=== PATIENT | female | born 1985 | race Caucasian/White ===

== ENCOUNTER 2017-08-31 09:55 | Emergency (ER) | payer MEDICAID, SELFPAY | END 2017-08-31 12:31 | disposition home or self-care (01) | PROVIDERS: Emergency Provider Emergency Medicine; Family Provider Nurse Practitioner Family; Visit Provider Emergency Medicine | DX: R10.13 Epigastric pain (principal); R11.2 Nausea with vomiting, unspecified; Z87.442 Personal history of urinary calculi; J45.909 Unspecified asthma, uncomplicated; I10 Essential (primary) hypertension; Z79.899 Other long term (current) drug therapy; Z88.3 Allergy status to other anti-infective agents; Z88.5 Allergy status to narcotic agent; Z88.8 Allergy status to other drugs, medicaments and biological substances | CPT/HCPCS: 80053; 81001; 82150; 82272; 83690; 85025; 87086; 99283; G0328 ==

== ENCOUNTER 2017-11-24 14:40 | Emergency (ER) | payer MEDICAID, SELFPAY ==
[2017-11-24 14:45] VITALS: BP 145/96; PULSE 92; RESP 20; TEMP 36.6; O2SAT 98; BMI 42.7
--- NOTE | 2017-11-24 14:56 | CT_ITS ---
CT abdomen pelvis wo con CLINICAL INDICATION: Epigastric abdominal pain radiating into the back with history of pancreatitis ITS.REASON: EPIGASTRIC PAIN ORDERING PHYSICIAN: Frankie Salvador MD PATIENT AGE: 32 years COMPARISON: 06/24/2017 TECHNIQUE: Axial images obtained with sagittal and coronal reformats. PROCEDURE: Oral Contrast: None IV Contrast: None . FINDINGS: No acute finding in the lung bases. Prior cholecystectomy without ductal dilatation. The liver, spleen, adrenal glands, and pancreas are unremarkable. No peripancreatic inflammation or fluid collection is evident. There are nonobstructing left renal calculi measuring up to 4 mm in the midpole region. No hydronephrosis or ureteral calculi. There is diffuse diverticulosis of the transverse colon with scattered diverticula of the descending and sigmoid colon. No evidence of diverticulitis. The cecum is situated in the midline as is the appendix. No evidence of appendicitis. There is increasing prominence of the right ovary. Consider ultrasound of the pelvis for further evaluation. No cul-de-sac fluid or pelvic adenopathy. No focal inflammatory change evident. No acute bony anomalies. IMPRESSION: 1. No acute abdominal or pelvic findings. No evidence of acute pancreatitis. 2. Nonobstructing left renal calculi. 3. Increasing prominence of the right ovary. Consider pelvic ultrasound for further evaluation
--- NOTE | 2017-11-24 15:19 | HMH.EDGENADL ---
ED Disposition Clinical Impression: Epigastric pain, Vomiting and diarrhea Disposition: Home, Self-Care Condition on Discharge: Good Instructions: DI for Abdominal Pain-Adult, DI for Vomiting -- Adult, DI for Diarrhea and Traveler's Diarrhea -- Adult Additional Instructions: Continue using Phenergan at home. Follow-up urine culture results in 2 days from your primary care provider. Additional instructions for ABDOMINAL PAIN: See your physician as soon as possible for further evaluation. Return immediately if worsening abdominal pain, vomiting, shortness of breath, fever, vomiting of blood or abdominal distention. Additional instructions for VOMITING/DIARRHEA: See your physician as soon as possible for further evaluation. Return immediately if severe abdominal pain, uncontrollable vomiting, shortness of breath, fever, vomiting of blood or abdominal distention. Prescriptions: Nitrofurantoin Monohyd/M-Cryst [Macrobid 100 mg Capsule] 100 mg PO BID #14 cap Referrals: Jojo Whyte APRN [Primary Care Provider] - - Critical Care Critical Care Time: No Attestation: On 11/24/17, the high probability of a clinically significant, sudden or life threatening deterioration of the following system(s) required my full and direct attention, intervention and personal management. The time I documented below is in addition to time spent performing reported procedures but includes the following listed in this critical care notation. Medical Decision Making - Oul Inquiry Pt receiving controlled substance: No Vital Signs: 11/24/17 14:45 Temperature 97.9 F Temperature Source Oral Pulse Rate [Left Brachial] 92 H Respiratory Rate 20 Blood Pressure [Left Arm] 145/96 Blood Pressure Mean [Left Arm] 112 Blood Pressure Source [Left Arm] Automatic Cuff Blood Pressure Position [Left Arm] Sitting 02 Sat by Pulse Oximetry 98 Oxygen Delivery Method Room Air - Lab Data Lab Results 11/24/17 15:30: Urine Color Yellow, Urine Appearance Clear, Urine pH 7.0, Ur Specific [place] 1.015, Urine Protein Negative, Urine Glucose (UA) Negative, Urine Ketones Negative, Urine Blood Negative, Urine Nitrate Negative, Urine Bilirubin Negative, Urine Urobilinogen 0.2, Ur Leukocyte Esterase 2+ A, Urine RBC Occasional, Urine WBC 20-50, Ur Squamous Epith Cells 20-50, Urine Bacteria 2+ 11/24/17 15:40: WBC 12.9 H, RBC 5.50 H, Hgb 13.1, Hct 43.3, MCV 78.8 L, MCH 23.9 L, MCHC 30.3 L, RDW 14.6, Plt Count 524 H, MPV 7.7, Neut % (Auto) 74.7, Lymph % (Auto) 17.9, [place] % (Auto) 4.9, Eos % (Auto) 2.2, Baso % (Auto) 0.2, Neut # (Auto) 9.7 H, Lymph # (Auto) 2.3, [place] # (Auto) 0.6, Eos # (Auto) 0.3, Baso # (Auto) 0.0 11/24/17 15:40: Sodium 141, Potassium 4.6, Chloride 106, Carbon Dioxide 27, Anion Gap 12.6, BUN 17, Creatinine 0.79, Estimated Creat Clear 77, Estimated GFR 84, Est GFR ( Amer) 102, Glucose 94, Calcium 9.3, Total Bilirubin 0.1 L, AST 14 L, ALT 29, Alkaline Phosphatase 66, Total Protein 7.6, Albumin 3.3 L, Globulin 4.3 H, Albumin/Globulin Ratio 0.8 L, Amylase 54, Lipase 347 11/24/17 15:40: Serum HCG, Qual Negative Result diagrams: 11/24/17 15:40 11/24/17 15:40 Orders (Tests/Meds): ED MEDICATIONS Discontinued Medications Generic Name Dose Route Start Last Admin Trade Name Freq PRN Reason Stop Dose Admin Promethazine HCl 12.5 mg 11/24/17 15:53 11/24/17 16:02 Phenergan 25mg/Ml 1ml Vial IV 11/24/17 15:54 12.5 mg ONCE ONE Administration Sodium Chloride 1,000 ml 11/24/17 15:53 11/24/17 16:02 Sod Chlor 0.9% 1000ml Bag IV 11/24/17 15:54 1,000 ml BOLUS ONE Administration Sodium Chloride 25 ml 11/24/17 15:53 11/24/17 16:02 Sod Chlor 0.9% 25ml Bag IV 11/24/17 15:54 25 ml ONCE ONE Administration ORDERS Category Date Time Status Urine Culture Stat Micro 11/24/17 15:30 Received - CT Data CT Scan: Abdomen, Pelvis Time Received: 15:[address] Reviewed: Yes: I have viewed the radiologist's int
--- NOTE | 2017-11-24 15:21 | PC.NURSE ---
TO RADIOLOGY PER W/C FOR CT ABD/PELVIS
[2017-11-24 15:53] LABS: Basophils % 0.2 % (0.1-2.0); Eosinophils # 0.3 K/mm3 (0.0-0.4); Eosinophils % 2.2 % (0.1-12.0); Hematocrit 43.3 % (37.0-47.0); Hemoglobin 13.1 g/dL (12.2-16.2); Lymphocytes # 2.3 K/mm3 (0.7-4.5); Lymphocytes % 17.9 K/mm3 (10-50); Mean Corpuscular HGB Conc 30.3 g/dL (31.8-35.4); Mean Corpuscular Hemoglobin 23.9 pg (27.0-31.2); Mean Corpuscular Volume 78.8 fl (81-99); Mean Platelet Volume 7.7 fl (7.4-10.4); Monocytes # 0.6 K/mm3 (0.1-1.0); Monocytes % 4.9 % (1.7-9.3); Neutrophils # 9.7 K/mm3 (1.8-7.8); Neutrophils % 74.7 % (37.0-80.0); Platelet Count 524 K/mm3 (142-424); Red Cell Distribution Width 14.6 % (11.5-17.5); White Blood Count 12.9 K/mm3 (4.8-10.8)
[2017-11-24 15:55] LABS: Microscopic, Urine URINE MICROSCOPIC (MICROSCOPIC)
[2017-11-24 15:56] LABS: Appearance,Urine CLEAR (Clear); Bilirubin,Urine Negative (Negative); Blood, Urine Negative (Negative); Color,Urine YELLOW (Yellow); Glucose,Urine (UA) Negative (Negative); Ketones,Urine Negative (Negative); Leukocyte Esterase,Urine 2+ (Negative); Nitrate,Urine Negative (Negative); Protein,Urine Negative (Negative); Specific Gravity, Urine 1.015 (1.005-1.030); Urobilinogen,Urine 0.2 EU/dl (0.2)
[2017-11-24 16:18] LABS: HCG Qualitative, Serum Negative (Negative)
[2017-11-24 16:18] LABS: Bacteria,Urine 2+ /lpf; RBC,Urine Occasional #/hpf (0-3); Squamous Epithelial Cell,Urine 20-50 #/hpf (0-5); WBC,Urine 20-50 #/hpf (0-3)
[2017-11-24 16:35] LABS: Alanine Aminotransferase 29 U/L (12-78); Albumin Level 3.3 gm/dL (3.4-5.0); Albumin/Globulin Ratio 0.8 (1.1-1.8); Alkaline Phosphatase 66 U/L (46-116); Amylase 54 U/L (25-125); Anion Gap 12.6 mEq/L (5-15); Aspartate Amino Transferase 14 U/L (15-37); Bilirubin,Total 0.1 mg/dL (0.2-1.0); Blood Urea Nitrogen 17 mg/dL (7-18); Calcium 9.3 mg/dL (8.5-10.1); Carbon Dioxide 27 mmol/L (21.0-32.0); Chloride 106 mmol/L (98-107); Creatinine Clearance Estimated 77 mL/min (0-300); Creatinine,Serum 0.79 mg/dL (0.55-1.02); Estimated Glomerular Filt Rate 84 ml/min (>60); GFR (African American) 102 ML/MIN (>60); Globulin 4.3 gm/dl (1.3-3.2); Glucose 94 mg/dL (74-106); Lipase 347 u/L (73-393); Potassium 4.6 mmoL/L (3.5-5.1); Sodium 141 mmol/L (136-145); Total Protein,Serum 7.6 gm/dL (6.4-8.2)
[2017-11-24 17:30] VITALS: BP 144/91; PULSE 92; RESP 18; TEMP 36.6; O2SAT 99
== END 2017-11-24 17:32 | disposition home or self-care (01) ==
PROVIDERS: Emergency Provider Emergency Medicine; Family Provider Family Medicine; PCP Nurse Practitioner Family
DX: R10.13 Epigastric pain (principal); R11.0 Nausea; R19.7 Diarrhea, unspecified; J45.909 Unspecified asthma, uncomplicated; I10 Essential (primary) hypertension; E78.5 Hyperlipidemia, unspecified
CPT/HCPCS: 36415; 74176; 80053; 81001; 82150; 83690; 84703; 85025; 87086; 96365; 96366; 96367; 96374; 96375; 96376; 99283

== ENCOUNTER 2017-12-05 05:17 | Emergency (ER) | payer MEDICAID, SELFPAY ==
[2017-12-05 05:18] VITALS: BP 115/96; PULSE 108; RESP 18; O2SAT 99; BMI 42.7
[2017-12-05 06:04] LABS: Microscopic, Urine URINE MICROSCOPIC (MICROSCOPIC)
[2017-12-05 06:08] LABS: Appearance,Urine TURBID (Clear); Bilirubin,Urine Negative (Negative); Blood, Urine 3+ (Negative); Color,Urine RED (Yellow); Glucose,Urine (UA) Negative (Negative); Ketones,Urine Negative (Negative); Leukocyte Esterase,Urine TRACE (Negative); Nitrate,Urine Negative (Negative); Protein,Urine 2+ (Negative); Specific Gravity, Urine >= 1.030 (1.005-1.030); Urobilinogen,Urine 0.2 EU/dl (0.2)
[2017-12-05 06:09] LABS: Amorphous Sediment,Urine Trace /lpf; RBC,Urine TNTC #/hpf (0-3)
--- NOTE | 2017-12-05 06:29 | HMH.EDGENADL ---
ED Disposition Clinical Impression: Cystitis Disposition: Home, Self-Care Condition on Discharge: Good Instructions: DI for Acute Cystitis Additional Instructions: fluids and call pcp for follow up Prescriptions: Hydrocod/Acet 5/325 mg [[place] 5/325mg tablet] 1 tab PO Q6HP PRN #4 tab PRN Reason: Moderate To Severe Pain Referrals: Jojo Whyte APRN [Primary Care Provider] - - Critical Care Critical Care Time: No Attestation: On 12/05/17, the high probability of a clinically significant, sudden or life threatening deterioration of the following system(s) required my full and direct attention, intervention and personal management. The time I documented below is in addition to time spent performing reported procedures but includes the following listed in this critical care notation. Medical Decision Making - Medical Records Medical records reviewed: Yes: I reviewed the patient's medical records. - Olu Inquiry Pt receiving controlled substance: No Vital Signs: 12/05/17 05:18 Pulse Rate [Left Brachial] 108 H Respiratory Rate 18 Blood Pressure [Left Arm] 115/96 Blood Pressure Mean [Left Arm] 102 02 Sat by Pulse Oximetry 99 Oxygen Delivery Method Room Air - Lab Data Lab results reviewed: Yes: I reviewed the patient's lab results. Lab Results 12/05/17 05:40: Urine Color Red, Urine Appearance Turbid, Urine pH 6.0, Ur Specific [place] >= 1.030, Urine Protein 2+, Urine Glucose (UA) Negative, Urine Ketones Negative, Urine Blood 3+, Urine Nitrate Negative, Urine Bilirubin Negative, Urine Urobilinogen 0.2, Ur Leukocyte Esterase Trace, Urine RBC Tntc, Urine WBC 5-10, Ur Squamous Epith Cells 5-10, Amorphous Sediment Trace 12/05/17 06:22: WBC 14.3 H, RBC 5.16, Hgb 12.5, Hct 40.9, MCV 79.2 L, MCH 24.2 L, MCHC 30.5 L, RDW 14.9, Plt Count 451 H, MPV 7.7, Neut % (Auto) 84.0 H, Lymph % (Auto) 8.5 L, [place] % (Auto) 5.1, Eos % (Auto) 2.4, Baso % (Auto) 0.1, Neut # (Auto) 12.0 H, Lymph # (Auto) 1.2, [place] # (Auto) 0.7, Eos # (Auto) 0.3, Baso # (Auto) 0.0 12/05/17 06:22: Sodium 138, Potassium 4.1, Chloride 104, Carbon Dioxide 24, Anion Gap 14.1, BUN 11, Creatinine 0.94, Estimated Creat Clear 65, Estimated GFR 69, Est GFR ( Amer) 84, Glucose 111 H, Calcium 8.3 L, Total Bilirubin 0.4, AST 14 L, ALT 23, Alkaline Phosphatase 70, Total Protein 7.4, Albumin 3.2 L, Globulin 4.2 H, Albumin/Globulin Ratio 0.8 L Result diagrams: 12/05/17 06:22 12/05/17 06:22 Orders (Tests/Meds): ED MEDICATIONS Generic Name Dose Route Start Last Admin Trade Name Freq PRN Reason Stop Dose Admin Butorphanol Tartrate 1 mg 12/05/17 07:15 Stadol 1mg/1ml Vial IM 12/05/17 07:16 ONCE ONE Promethazine HCl 25 mg 12/05/17 07:15 Phenergan 25mg/Ml 1ml Vial IM 12/05/17 07:16 ONCE ONE Sodium Chloride 50 ml 12/05/17 07:15 Sod Chlor 0.9% 50ml Bag IV 12/05/17 07:16 ONCE ONE ORDERS Category Date Time Status Urine Culture Stat Micro 12/05/17 07:11 Ordered General Adult HPI - General Chief complaint: PAIN Stated complaint: Abdominal Pain,Nausea Time Seen by Provider: 12/05/17 06:29 Mode of Arrival: Ambulatory Source of Information: Patient, Medical Record Limitations: No Limitations Description of Symptoms (Recalled from ER Triage Doc. by RN): Patient states that she woke up this morning with sharp pain to her lower abdomen. - History of Present Illness HPI narrative: acute onset of ant pain with no fever or rash and had neg ct about 10 days ago - Onset (ago): hour(s) Location: abdomen Radiation: non-radiation Severity: moderate Treatments prior to arrival: none - Related Data Home Medications Medication Instructions Recorded Confirmed albuterol sulfate HFA 90 2 puff INHALATION Q4-6H PRN 10/21/17 mcg/actuation aerosol inhaler buspirone 30 mg tablet 30 mg PO TID PRN tab 10/21/17 hydrochlorothiazide 25 mg tablet 25 mg PO ONCE 10/21/17 hydrocodone 10 mg-acetami
[2017-12-05 06:42] LABS: Basophils % 0.1 % (0.1-2.0); Eosinophils # 0.3 K/mm3 (0.0-0.4); Eosinophils % 2.4 % (0.1-12.0); Hematocrit 40.9 % (37.0-47.0); Hemoglobin 12.5 g/dL (12.2-16.2); Lymphocytes # 1.2 K/mm3 (0.7-4.5); Lymphocytes % 8.5 K/mm3 (10-50); Mean Corpuscular HGB Conc 30.5 g/dL (31.8-35.4); Mean Corpuscular Hemoglobin 24.2 pg (27.0-31.2); Mean Corpuscular Volume 79.2 fl (81-99); Mean Platelet Volume 7.7 fl (7.4-10.4); Monocytes # 0.7 K/mm3 (0.1-1.0); Monocytes % 5.1 % (1.7-9.3); Platelet Count 451 K/mm3 (142-424); Red Blood Count 5.16 M/mm3 (4.20-5.40); Red Cell Distribution Width 14.9 % (11.5-17.5); White Blood Count 14.3 K/mm3 (4.8-10.8)
[2017-12-05 06:57] LABS: Alanine Aminotransferase 23 U/L (12-78); Albumin Level 3.2 gm/dL (3.4-5.0); Albumin/Globulin Ratio 0.8 (1.1-1.8); Alkaline Phosphatase 70 U/L (46-116); Anion Gap 14.1 mEq/L (5-15); Aspartate Amino Transferase 14 U/L (15-37); Bilirubin,Total 0.4 mg/dL (0.2-1.0); Blood Urea Nitrogen 11 mg/dL (7-18); Calcium 8.3 mg/dL (8.5-10.1); Carbon Dioxide 24 mmol/L (21.0-32.0); Chloride 104 mmol/L (98-107); Creatinine Clearance Estimated 65 mL/min (0-300); Creatinine,Serum 0.94 mg/dL (0.55-1.02); Estimated Glomerular Filt Rate 69 ml/min (>60); GFR (African American) 84 ML/MIN (>60); Globulin 4.2 gm/dl (1.3-3.2); Glucose 111 mg/dL (74-106); Potassium 4.1 mmoL/L (3.5-5.1); Sodium 138 mmol/L (136-145); Total Protein,Serum 7.4 gm/dL (6.4-8.2)
--- NOTE | 2017-12-05 07:02 | ED_ITS ---
ED Disposition Clinical Impression: Cystitis Disposition: Home, Self-Care Condition on Discharge: Good Instructions: DI for Acute Cystitis Additional Instructions: fluids and call pcp for follow up Prescriptions: Hydrocod/Acet 5/325 mg [[place] 5/325mg tablet] 1 tab PO Q6HP PRN #4 tab PRN Reason: Moderate To Severe Pain Referrals: Jojo Whyte APRN [Primary Care Provider] - - Critical Care Critical Care Time: No Attestation: On 12/05/17, the high probability of a clinically significant, sudden or life threatening deterioration of the following system(s) required my full and direct attention, intervention and personal management. The time I documented below is in addition to time spent performing reported procedures but includes the following listed in this critical care notation. Medical Decision Making - Medical Records Medical records reviewed: Yes: I reviewed the patient's medical records. - Olu Inquiry Pt receiving controlled substance: No Vital Signs: 12/05/17 05:18 Pulse Rate [Left Brachial] 108 H Respiratory Rate 18 Blood Pressure [Left Arm] 115/96 Blood Pressure Mean [Left Arm] 102 02 Sat by Pulse Oximetry 99 Oxygen Delivery Method Room Air - Lab Data Lab results reviewed: Yes: I reviewed the patient's lab results. Lab Results 12/05/17 05:40: Urine Color Red, Urine Appearance Turbid, Urine pH 6.0, Ur Specific [place] >= 1.030, Urine Protein 2+, Urine Glucose (UA) Negative, Urine Ketones Negative, Urine Blood 3+, Urine Nitrate Negative, Urine Bilirubin Negative, Urine Urobilinogen 0.2, Ur Leukocyte Esterase Trace, Urine RBC Tntc, Urine WBC 5-10, Ur Squamous Epith Cells 5-10, Amorphous Sediment Trace 12/05/17 06:22: WBC 14.3 H, RBC 5.16, Hgb 12.5, Hct 40.9, MCV 79.2 L, MCH 24.2 L , MCHC 30.5 L, RDW 14.9, Plt Count 451 H, MPV 7.7, Neut % (Auto) 84.0 H, Lymph % (Auto) 8.5 L, [place] % (Auto) 5.1, Eos % (Auto) 2.4, Baso % (Auto) 0.1, Neut # ( Auto) 12.0 H, Lymph # (Auto) 1.2, [place] # (Auto) 0.7, Eos # (Auto) 0.3, Baso # ( Auto) 0.0 12/05/17 06:22: Sodium 138, Potassium 4.1, Chloride 104, Carbon Dioxide 24, Anion Gap 14.1, BUN 11, Creatinine 0.94, Estimated Creat Clear 65, Estimated GFR 69, Est GFR ( Amer) 84, Glucose 111 H, Calcium 8.3 L, Total Bilirubin 0.4, AST 14 L, ALT 23, Alkaline Phosphatase 70, Total Protein 7.4, Albumin 3.2 L, Globulin 4.2 H, Albumin/Globulin Ratio 0.8 L Result diagrams: 12/05/17 06:22 12/05/17 06:22 Orders (Tests/Meds): ED MEDICATIONS Generic Name Dose Route Start Last Admin Trade Name Freq PRN Reason Stop Dose Admin Butorphanol Tartrate 1 mg 12/05/17 07:15 Stadol 1mg/1ml Vial IM 12/05/17 07:16 ONCE ONE Promethazine HCl 25 mg 12/05/17 07:15 Phenergan 25mg/Ml 1ml Vial IM 12/05/17 07:16 ONCE ONE Sodium Chloride 50 ml 12/05/17 07:15 Sod Chlor 0.9% 50ml Bag IV 12/05/17 07:16 ONCE ONE ORDERS Category Date Time Status Urine Culture Stat Micro 12/05/17 07:11 Ordered General Adult HPI - General Chief complaint: PAIN Stated complaint: Abdominal Pain,Nausea Time Seen by Provider: 12/05/17 06:29 Mode of Arrival: Ambulatory Source of Information: Patient, Medical Record Limitations: No Limitations Description of Symptoms (Recalled from ER Triage Doc. by RN): Patient states that she woke up this morning with sharp pain to her lower abd
[2017-12-05 07:41] VITALS: BP 128/81; PULSE 107; RESP 20; TEMP 37
== END 2017-12-05 07:43 | disposition home or self-care (01) ==
PROVIDERS: Emergency Provider Emergency Medicine; Family Provider Family Medicine; PCP Nurse Practitioner Family
DX: N83.209 Unspecified ovarian cyst, unspecified side; Z88.6 Allergy status to analgesic agent; Z88.8 Allergy status to other drugs, medicaments and biological substances; Z79.899 Other long term (current) drug therapy
CPT/HCPCS: 36415; 80053; 81001; 85025; 87086; 96372; 99282; J0595

== ENCOUNTER 2017-12-06 15:19 | Emergency (ER) | payer MEDICAID, SELFPAY ==
[2017-12-06 15:26] VITALS: BP 91/43; PULSE 89; RESP 20; TEMP 36.6; O2SAT 100; BMI 42.7
--- NOTE | 2017-12-06 15:53 | HMH.EDABDPAI ---
ED Disposition Clinical Impression: Complex cyst of right ovary Abdominal pain Qualifiers: Abdominal location: right lower quadrant Qualified Code(s): R10.31 - Right lower quadrant pain Disposition: Home, Self-Care Condition on Discharge: Good Instructions: DI for Acute Abdomen Additional Instructions: Please follow-up with Dr. Hammonds's office in the morning, as discussed with the docket specialist this afternoon. Prescriptions: Oxycodone HCl/Acetaminophen [Percocet 10-325 mg Tab] 1 tab PO QID PRN #8 tab PRN Reason: Moderate Pain Referrals: Brock Mcdaniels MD [Staff Physician] - Time of Disposition: 17:20 - Critical Care Critical Care Time: No Attestation: On 12/06/17, the high probability of a clinically significant, sudden or life threatening deterioration of the following system(s) required my full and direct attention, intervention and personal management. The time I documented below is in addition to time spent performing reported procedures but includes the following listed in this critical care notation. Medical Decision Making - Medical Records Medical records reviewed: Yes: I reviewed the patient's medical records. - Olu Inquiry Pt receiving controlled substance: Yes Olu was queried for this patient: No Reason not queried -: Hospital network issues Risks and benefits of using a controlled substance: were discussed with pt by me Vital Signs: 12/06/17 15:26 12/06/17 18:19 Temperature 97.9 F 98.2 F Temperature Source Oral Pulse Rate 89 Pulse Rate [Right Radial] 89 Respiratory Rate 20 16 Blood Pressure 114/75 Blood Pressure [Right Arm] 91/43 Blood Pressure Mean [Right Arm] 59 Blood Pressure Source [Right Arm] Manual Cuff/ Palpation Blood Pressure Position [Right Arm] Standing 02 Sat by Pulse Oximetry 100 Oxygen Delivery Method Nasal Cannula Room Air - Lab Data Lab Results 12/06/17 18:07: Carcinoembryonic Ag 1.1 Orders (Tests/Meds): ED MEDICATIONS Discontinued Medications Generic Name Dose Route Start Last Admin Trade Name Freq PRN Reason Stop Dose Admin Oxycodone/Acetaminophen 1 each 12/06/17 17:19 12/06/17 17:59 Percocet 10mg/325mg Tablet PO 12/06/17 17:20 1 each ONCE ONE Administration - CT Data CT Scan: Abdomen, Pelvis Time Received: 17:[address] Reviewed: Yes: I have reviewed the patient's CT results, I discussed the CT results w/the radiologist, I have viewed the radiologist's interpretation Findings Narrative: [facility] [address] [place] [address] Ultrasound Report Signed Patient: Юлия Kim MR#: [id number] : 1985 Acct:[id number] Age/Sex: 32 / F ADM Date: 12/06/17 Loc: ER Attending Dr: Ordering Physician: Jose Rosenberg MD Date of Service: 12/06/17 Procedure(s): US transvaginal Accession Number(s): [id number] cc: Yg Richter MD; Jojo Whyte APRN~ US transvaginal HISTORY: ITS.REASON: right lower quadrant pain, prominent right ovary on CT scan ORDERING PHYSICIAN: Jose Rosenberg MD PATIENT AGE: 32 years COMPARISON: None FINDINGS: The uterus measures 8 x 4 x 4.5 cm with a combined endometrial thickness of 5 mm. A 2 x 1.5 cm area of heterogeneous echogenicity is present along the infra aspect of the body the uterus consistent with fibroid. The left ovary is 3.6 x 2.9 cm and contains a few follicles the largest of which measures 7 mm. The right ovary is enlarged at 6 x 5.5 cm containing a complex cyst at 3.4 x 3.8 cm which has an irregular shape and some low-level internal echoes. Trace amount of fluid in the pelvis. IMPRESSION: 1. Enlarged right ovary with complex 4 cm ovarian cyst. 2. 2 cm uterine fibroid Dictated By: Yg Richter MD Signed By: <Electronically signed by Yg Richter MD in OV> 12/07/17 0943 DD/ - Physician Consults Physi
--- NOTE | 2017-12-06 16:16 | US_ITS ---
US transvaginal HISTORY: ITS.REASON: right lower quadrant pain, prominent right ovary on CT scan ORDERING PHYSICIAN: Jose Rosenberg MD PATIENT AGE: 32 years COMPARISON: None FINDINGS: The uterus measures 8 x 4 x 4.5 cm with a combined endometrial thickness of 5 mm. A 2 x 1.5 cm area of heterogeneous echogenicity is present along the infra aspect of the body the uterus consistent with fibroid. The left ovary is 3.6 x 2.9 cm and contains a few follicles the largest of which measures 7 mm. The right ovary is enlarged at 6 x 5.5 cm containing a complex cyst at 3.4 x 3.8 cm which has an irregular shape and some low-level internal echoes. Trace amount of fluid in the pelvis. IMPRESSION: 1. Enlarged right ovary with complex 4 cm ovarian cyst. 2. 2 cm uterine fibroid
[2017-12-06 18:19] VITALS: BP 114/75; PULSE 89; RESP 16; TEMP 36.8; O2SAT 98
[2017-12-08 06:16] LABS: CEA 1.1 ng/mL (0.0-4.7)
== END 2017-12-06 18:20 | disposition home or self-care (01) ==
PROVIDERS: Emergency Provider Emergency Medicine; Family Provider Family Medicine; PCP Nurse Practitioner Family
DX: N83.291 Other ovarian cyst, right side (principal)
CPT/HCPCS: 36415; 76830; 82378; 99282

== ENCOUNTER → 2017-12-07 11:24 | Outpatient (CLI) | payer MEDICAID, SELFPAY ==
--- NOTE | 2017-12-07 11:32 | XR_ITS ---
XR chest 2V HISTORY: ITS.REASON: CHEST PAIN AT REST ORDERING PHYSICIAN: Jojo Whyte PATIENT AGE: 32 years COMPARISON: None available FINDINGS: The cardiomediastinal silhouette and pulmonary vascularity are within normal limits. The lungs are clear without infiltrates, suspicious nodules, or pleural effusions. No acute bony abnormalities. IMPRESSION: Negative chest, no acute finding
== END ==
PROVIDERS: PCP Nurse Practitioner Family; Visit Provider Nurse Practitioner Family
DX: R07.9 Chest pain, unspecified (principal)
CPT/HCPCS: 71046

== ENCOUNTER → 2017-12-07 15:28 | Outpatient (CLI) | payer MEDICAID, SELFPAY ==
[2017-12-07 17:10] LABS: Thyroid Stimulating Hormone 2.14 uIU/ml (0.358-3.740)
[2017-12-09 15:32] LABS: Cancer Antigen (CA) 125 57.9 U/mL (0.0-38.1); FSH 9.5 mIU/mL (.); LH 7.8 mIU/mL (.)
[2017-12-10 11:38] LABS: Testosterone,Free 3.1 pg/mL (0.0-4.2)
== END ==
PROVIDERS: Family Provider Family Medicine; PCP Nurse Practitioner Family; Visit Provider Obstetrics & Gynecology
DX: R10.32 Left lower quadrant pain (principal)
CPT/HCPCS: 36415; 83001; 83002; 84402; 84443; 86316

== ENCOUNTER 2017-12-09 11:37 | Inpatient (IN) ==
[2017-12-09 15:19] LABS: Microscopic, Urine URINE MICROSCOPIC (MICROSCOPIC)
[2017-12-09 15:21] LABS: Appearance,Urine CLEAR (Clear); Bilirubin,Urine Negative (Negative); Blood, Urine Negative (Negative); Color,Urine YELLOW (Yellow); Glucose,Urine (UA) Negative (Negative); Ketones,Urine Negative (Negative); Leukocyte Esterase,Urine Negative (Negative); PH,Urine 6.5 (5.0-8.5); Protein,Urine TRACE (Negative); Urobilinogen,Urine 0.2 EU/dl (0.2)
[2017-12-09 15:29] LABS: Bacteria,Urine Trace /lpf; Mucus,Urine 3+ /lpf; WBC,Urine Occasional #/hpf (0-3)
--- NOTE | 2017-12-09 17:57 | Progress Note ---
[facility] Anesthesia Checklist - Structural Data Admitted From: Inpatient Planned Operative Procedure/s: exp laparotomy Consent for Planned Operative Procedure(s) Verified: Yes Verified Documents: Surgical Consent - Airway Assessment C-Spine Mobility Assessed: Yes TMJ Mobility Assessed: Yes Dentition: Poor Dentition - Neurological Assessment Level of Consciousness: Awake, Alert - Anesthesia Plan Anesthesia Risk discussed: Yes Anesthesia Plan: Verified ASA Class: III Anesthesia Type: General [facility] Anesthesia HX I have reviewed the patient's past medical history: Yes 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: Reports:: Asthma, Hyperlipidemia, Hypertension Denies:: Diabetes Mellitus Type 1, Diabetes Mellitus Type 2 Other 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: Reports: Other Laterality Cases: Bilateral: Myringotomy (Ear Tubes), Tonsillectomy Other Surgeries: Yes: Hernia Repair, Ureter Stent, Other (GALL BLADDER, T&A) Amputation: No Fractures: No *Family Hx:: No significant family history
--- NOTE | 2017-12-09 17:58 | Progress Note ---
[facility] Anesthesia Record Part II Discharge Time: 18:20 Destination: floor PACU nurse assessment reviewed?: Yes Patient Condition:: Good Anesthesia Complications:: None
--- NOTE | 2017-12-09 17:58 | Progress Note ---
[facility] Anesthesia Record Part I Intake, IV Amount: 1,200 Estimated blood loss (mL): 200 Urine output (mL): 250 Blood Pressure: 184/100 SaO2: 98 Pulse Rate: 66 Respiratory Rate: 18 Temperature: 97.8 F Patient is:: Awake, Stable Stable to PACU at:: 17:50
--- NOTE | 2017-12-09 18:01 | Operative Note ---
Date of procedure: 12/09/17 Pre-op Diagnosis:: 1. Pelvic pain. 2. Right adnexal mass. Post-op Diagnosis:: 1. Pelvic pain. 2. Right ovarian endometrioma, undergoing torsion. 3. Extensive pelvic adhesions. 4. Leiomyomata uteri. Procedure performed:: 1. Exploratory laparotomy. 2. Peritoneal washings. 3. Extensive lysis of adhesions. 4. Right salpingo-oophorectomy. 5. Myomectomy. Surgeon:: Bj Mcgrath MD Leave Specialist(s):: Dr. Bob CUSTOMER MARKETING INTERN:: Shawn Adkins Anesthesia: GETA Estimated blood loss (mL): 300 Operative findings:: 1. Extensive pelvic adhesions. 2. Right ovarian endometrioma, undergoing torsion. 3. Leiomyomata uteri. Operative note:: After the patient was prepped and draped in usual fashion and general anesthesia was administered, and after a PICC line had been placed in her right arm, a low Pfannenstiel incision was made across the midline, and the fat and fascia was in usual fashion, bleeders being clamped and coagulated along the way. The peritoneum was entered bluntly, and extended above and below with Metzenbaum scissors. The upper abdomen was explored and found to be normal. The bowel was packed away and a self-retaining Lockwood retractor with bladder blade was placed. The needle washings were carried out and submitted for cytology. The pelvis was explored. The uterus was of normal size and configuration, except for a small leiomyoma on its dorsal surface. The left tube and ovary appeared normal. On the right side, however, the ovary was 6-7 cm in diameter, and adherent to the uterine sidewall and the pelvic sidewall. It was bluntly dissected free, and ruptured, revealing a large amount of chocolaty thick fluid, consistent with an endometrioma. After extensive irrigation, the right adnexa was grasped with a Sarita clamp. The infundibulopelvic and ovarian ligaments were crossclamped and cut, thus removing the right adnexa and submitting it for pathology. This pedicle was Brittani sutured, and then free tied with #1 Vicryl. Hemostasis was considered good. The small leiomyoma on the anterior surface of the uterus was grasped with a Sarita clamp and excised with cautery. The excision site was oversewn with a alnmxa-wl-[id number] suture of 0 Vicryl. Further extensive irrigation was carried out. The decision was made not to remove the uterus and left adnexa, because of the apparent benign nature of the condition, and because the uterus was locked into a deep pelvis, which would make its removal problematic. Form was placed in the cul-de-sac, and Surgicel was placed over the myomectomy site. The peritoneum was grasped with 3 Jenna clamps, and closed with a running semi -locked suture of 0 Vicryl. The muscle was approximated with a running unlocked suture of 0 Vicryl. The fascia was closed with a running locked suture of #1 Vicryl. The subcutaneous fat and Hank's fascia were closed with a running unlocked suture of 2-0 Vicryl. The skin was closed with a subcuticular suture of 3-0 Vicryl, and appropriately dressed. The urine was clear in the Falk catheter. The sponge and needle count was correct. The estimated blood loss was 300 cc. The patient tolerated the procedure well, was taken to PACU in excellent condition. She will continue as an inpatient. Condition: stable Disposition: PACU Specimens:: 1. Peritoneal washings. 2. Right adnexa. 3. Leiomyoma uteri. Complications:: None
[2017-12-10 06:04] LABS: Hematocrit 36.5 % (37.0-47.0); Hemoglobin 11.2 g/dL (12.2-16.2)
--- NOTE | 2017-12-10 06:11 | Progress Note ---
Internal Medicine - PN: Subj *Date: 12/10/17 *Time: 06:10 (This is postop day #1. The patient is afebrile. Vital signs stable. Wound clean. Abdomen soft. Surgery has been explained to the patient. Her Falk will be removed this morning. Impression: Stable.) Exam Vital signs and Labs for Last 24 Hours: Temp Pulse Resp BP Pulse Ox 98.1 F 104 H 20 148/80 92 L 12/10/17 04:10 12/10/17 04:10 12/10/17 04:10 12/10/17 04:10 12/10/17 04:10 Laboratory Results - last 24 hr 12/09/17 15:10: Urine Color Yellow, Urine Appearance Clear, Urine pH 6.5, Ur Specific [place] 1.020, Urine Protein Trace, Urine Glucose (UA) Negative, Urine Ketones Negative, Urine Blood Negative, Urine Nitrate Negative, Urine Bilirubin Negative, Urine Urobilinogen 0.2, Ur Leukocyte Esterase Negative, Urine RBC None , Urine WBC Occasional, Ur Squamous Epith Cells 3-5, Urine Bacteria Trace, Urine Mucus 3+ 12/09/17 15:10: Urine HCG, Qual Negative 12/10/17 05:30: Hgb 11.2 L, Hct 36.5 L I & O for Last 24 hours: Intake & Output 12/07/17 12/08/17 12/09/17 12/10/17 11:59 11:59 11:59 11:59 Intake Total 1200 / 1200 Balance 1200 / 1200 Weight 232 lb
--- NOTE | 2017-12-10 07:41 | Pharmacy Consult Notes ---
[facility] Pharmacy VTE Monitoring - Patient Demographics Admission date: 12/09/17 Report Date: 12/10/17 Time: 07:40 Allergies/Adverse Reactions: Patient Allergies Penicillins Allergy (Severe, Verified 12/09/17 12:34) Hives gatifloxacin [From TEQUIN] Allergy (Mild, Verified 12/09/17 10:48) ketorolac [From TORADOL] Allergy (Mild, Verified 12/09/17 10:48) aztreonam [AZTREONAM] Allergy (Unknown, Verified 12/09/17 10:48) NA-NAUSEA/VOMITING cefaclor [CEFACLOR] Allergy (Unknown, Verified 12/09/17 10:48) codeine [CODEINE] Allergy (Unknown, Verified 12/09/17 10:48) BLEEDING OF EYES AND NOSE doxycycline [DOXYCYCLINE] Allergy (Unknown, Verified 12/09/17 10:48) levofloxacin [From LEVAQUIN] Allergy (Unknown, Verified 12/09/17 10:48) midazolam [From VERSED] Allergy (Unknown, Verified 12/09/17 10:48) ondansetron [From ZOFRAN ( HYDROCHLORIDE)] Allergy (Unknown, Verified 10:48) sulfamethoxazole [From BACTRIM] Allergy (Unknown, Verified 12/09/17 10:48) trimethoprim [From BACTRIM] Allergy (Unknown, Verified 12/09/17 10:48) tramadol Allergy (Verified 12/09/17 10:48) Height: 1.75 m Weight: 105.233 kg - VTE Risk Labs: VTE Related Lab Results Hgb 11.2 g/dL (12.2-16.2) L 12/10/17 05:30 Hct 36.5 % (37.0-47.0) L 12/10/17 05:30 Was VTE Risk Assessment Performed: Yes VTE Score: 2 VTE Risk Level: Very Low Risk Clinical Trial Participant: No - Prophylaxis VTE Prophylaxis Ordered?: Yes Types of VTE Prophylaxis: IPCS Knee High (post op) Location of Applied Device: Bilateral Lower Extremeties
--- NOTE | 2017-12-11 07:37 | Progress Note ---
Internal Medicine - PN: Subj *Date: 12/11/17 *Time: 07:36 (This is postop day #2. The patient is afebrile. Vital signs are stable. Blood pressure 130/72. Abdomen soft. Wound clean. The patient is doing better at this point on only Tylenol and Motrin. She is ambulating well and voiding well; her output is good. Bowel sounds are present, but no flatus yet. Hemoglobin 11.2 g. Impression: Stable/improving.) Exam Vital signs and Labs for Last 24 Hours: Temp Pulse Resp BP Pulse Ox 98.6 F 98 H 18 133/73 93 L 12/11/17 03:50 12/11/17 03:50 12/11/17 03:50 12/11/17 03:50 12/11/17 03:50 I & O for Last 24 hours: Intake & Output 12/08/17 12/09/17 12/10/17 12/11/17 11:59 11:59 11:59 11:59 Intake Total 1440 / 1440 3284 / 3284 Output Total 900 / 900 Balance 1440 / 1440 2384 / 2384 Weight 232 lb
--- NOTE | 2017-12-12 07:27 | Progress Note ---
Internal Medicine - PN: Subj *Date: 12/12/17 *Time: 07:25 (This is postop day #3. The patient is afebrile. Her vital signs are stable, but her blood pressure has elevated to 139/93. Reflexes are normal. Her wound clean. Abdomen soft. She is eating and ambulating, but still having considerable pain requiring narcotics. She has had a bowel movement. Plan is to restart her on her hydrochlorothiazide and observe today. Probably home tomorrow.) Exam Vital signs and Labs for Last 24 Hours: Temp Pulse Resp BP Pulse Ox 98.3 F 91 H 18 152/95 95 12/12/17 03:15 12/12/17 03:15 12/12/17 03:15 12/12/17 03:15 12/12/17 03:15 I & O for Last 24 hours: Intake & Output 12/09/17 12/10/17 12/11/17 12/12/17 11:59 11:59 11:59 11:59 Intake Total 1440 / 1440 3524 / 3524 2020 Output Total 1200 / 1200 501 / 501 Balance 1440 / 1440 2324 / 2324 1520 / 1520 Weight 232 lb
[2017-12-12 19:29] LABS: Microscopic, Urine URINE MICROSCOPIC (MICROSCOPIC)
[2017-12-12 19:34] LABS: Appearance,Urine CLEAR (Clear); Bilirubin,Urine Negative (Negative); Blood, Urine 1+ (Negative); Color,Urine YELLOW (Yellow); Glucose,Urine (UA) Negative (Negative); Ketones,Urine Negative (Negative); Leukocyte Esterase,Urine TRACE (Negative); Protein,Urine Negative (Negative); Specific Gravity, Urine 1.015 (1.005-1.030); Urobilinogen,Urine 0.2 EU/dl (0.2)
[2017-12-12 19:39] LABS: Amorphous Sediment,Urine Trace /lpf
--- NOTE | 2017-12-13 06:20 | Progress Note ---
Internal Medicine - PN: Subj *Date: 12/13/17 *Time: 06:19 (This is postop day #4. The patient is afebrile, but is still having pain control issues. Her large pannus is putting a lot of pressure on her wound, making it difficult for her to get around. A binder is somewhat helpful, and she is currently on Dilaudid and Phenergan. I am going to observe her for a while today and consider discharge later today if she has improved.) Exam Vital signs and Labs for Last 24 Hours: Temp Pulse Resp BP Pulse Ox 98.6 F 98 H 16 157/93 99 12/13/17 00:10 12/13/17 00:10 12/13/17 00:10 12/13/17 00:10 12/13/17 00:10 Laboratory Results - last 24 hr 12/12/17 19:18: Urine Color Yellow, Urine Appearance Clear, Urine pH 7.0, Ur Specific [place] 1.015, Urine Protein Negative, Urine Glucose (UA) Negative, Urine Ketones Negative, Urine Blood 1+, Urine Nitrate Negative, Urine Bilirubin Negative, Urine Urobilinogen 0.2, Ur Leukocyte Esterase Trace, Urine RBC 5-10, Urine WBC 5-10, Ur Squamous Epith Cells 3-5, Amorphous Sediment Trace I & O for Last 24 hours: Intake & Output 12/10/17 12/11/17 12/12/17 12/13/17 11:59 11:59 11:59 11:59 Intake Total 1440 / 1440 3524 / 3524 2381 / 2381 480 / 480 Output Total 1200 / 1200 501 / 501 1340 / 1340 Balance 1440 / 1440 2324 / 2324 1880 / 1880 -860 / -860 Weight 232 lb
--- NOTE | 2017-12-13 15:38 | Progress Note ---
Internal Medicine - PN: Subj *Date: 12/13/17 *Time: 15:38 (The patient is afebrile. Vital signs stable. Wound clean. Abdomen soft. She is eating and ambulating and has had a bowel movement. Her hemoglobin is 11.2 g. She will be discharged this afternoon.) Exam Vital signs and Labs for Last 24 Hours: Temp Pulse Resp BP Pulse Ox 98.2 F 83 18 154/87 95 12/13/17 08:00 12/13/17 08:00 12/13/17 13:23 12/13/17 08:00 12/13/17 08:34 Laboratory Results - last 24 hr 12/12/17 19:18: Urine Color Yellow, Urine Appearance Clear, Urine pH 7.0, Ur Specific [place] 1.015, Urine Protein Negative, Urine Glucose (UA) Negative, Urine Ketones Negative, Urine Blood 1+, Urine Nitrate Negative, Urine Bilirubin Negative, Urine Urobilinogen 0.2, Ur Leukocyte Esterase Trace, Urine RBC 5-10, Urine WBC 5-10, Ur Squamous Epith Cells 3-5, Amorphous Sediment Trace I & O for Last 24 hours: Intake & Output 12/11/17 12/12/17 12/13/17 12/14/17 11:59 11:59 11:59 11:59 Intake Total 3524 / 3524 2381 / 2381 720 / 720 Output Total 1200 / 1200 501 / 501 2240 / 2240 300 / 300 Balance 2324 / 2324 1880 / 1880 -1520 / -1520 -300 / -300
--- NOTE | 2017-12-13 15:49 | Discharge Summary ---
General - General Admission date: 12/09/17 Discharge date: 12/13/17 Hospital Course Hospital Course: This 32-year-old white female was admitted for definitive treatment of pelvic mass and excruciating pelvic pain. On the date of admission, she was taken to the operating room, where she underwent exploratory laparotomy with peritoneal washings, extensive lysis of adhesions in the right salpingo-oophorectomy for a large right endometrioma. Postoperatively, the patient has done reasonably well. She had quite a bit of issues with pain control and initial difficulty voiding, but these issues have been resolved. Her hemoglobin is 11.2 g, but she is clinically stable. She is eating and ambulating and has had a bowel movement. Her wound is clean. Her abdomen is soft. She requires a binder because of a large pannus. She is discharged home on the fourth postoperative day with the binder, on Dilaudid 4 mg (#30), 1 p.o. every 6 hours as needed pain ; and on Phenergan 25 mg (#30), 1 p.o. every 6 hours as needed nausea/vomiting. She uses snuff, and refuses smoking cessation patches. She is given appropriate instructions as to diet, exercise, and wound care, and she is to return the office in 2 weeks for follow-up. Objective Vital signs: Temp Pulse Resp BP Pulse Ox 98.2 F 83 18 154/87 95 12/13/17 08:00 12/13/17 08:00 12/13/17 13:23 12/13/17 08:00 12/13/17 08:34 Results Labs on day of discharge: Labs from last 24 hours 12/12/17 19:18 Urine Color Yellow Urine Appearance Clear Urine pH 7.0 Ur Specific [place] 1.015 Urine Protein Negative Urine Glucose (UA) Negative Urine Ketones Negative Urine Blood 1+ Urine Nitrate Negative Urine Bilirubin Negative Urine Urobilinogen 0.2 Ur Leukocyte Esterase Trace Urine RBC 5-10 Urine WBC 5-10 Ur Squamous Epith Cells 3-5 Amorphous Sediment Trace Discharge Plan - Patient Discharge Instructions ACTIVITY: Limited activity DIET: continue same diet - Follow up Plan Disposition: Home, Self-Usp Medications: Home Medications Medication Instructions Recorded Confirmed Type albuterol sulfate HFA 90 2 puff INHALATION Q4-6H PRN 10/21/17 12/09/17 History mcg/actuation aerosol inhaler buspirone 30 mg tablet 30 mg PO TIDP PRN tab 10/21/17 12/10/17 History hydrochlorothiazide 25 mg tablet 25 mg PO DAILY 10/21/17 12/10/17 History paroxetine 40 mg tablet 60 mg PO DAILY 10/21/17 12/10/17 History ranitidine 150 mg capsule 150 mg PO HSP PRN 10/21/17 12/10/17 History Gabapentin [Gabapentin 300mg Cap] 300 mg PO TID 12/06/17 12/09/17 History Tizanidine HCl [Zanaflex] 4 mg PO TIDP PRN 12/06/17 12/10/17 History Ibuprofen [Ibuprofen 800mg Tab] 800 mg PO TID 12/10/17 12/10/17 History Oxycodone HCl/Acetaminophen 1 tab PO QIDP PRN 12/10/17 12/10/17 History [Percocet 10-325 mg Tab] Prescriptions/Medication Reconciliation: New Acetaminophen [Acetaminophen 325mg tab] 650 mg PO Q4HP PRN tablet PRN Reason: Mild Pain hydroCHLOROthiazide [HCTZ 25mg tab] 25 mg PO DAILY tablet Ibuprofen [Motrin 400mg tablet] 400 mg PO Q4HP PRN tablet PRN Reason: Mild Pain Hydromorphone HCl [Dilaudid 2mg tablet] 4 mg PO Q6HP PRN #30 tablet PRN Reason: Moderate To Severe Pain Continue hydrochlorothiazide 25 mg tablet 25 mg PO DAILY buspirone 30 mg tablet 30 mg PO TIDP PRN tab PRN Reason: Anxiety albuterol sulfate HFA 90 mcg/actuation aerosol inhaler 2 puff INHALATION Q4- 6H PRN PRN Reason: BRONCHITIS paroxetine 40 mg tablet 60 mg PO DAILY ranitidine 150 mg capsule 150 mg PO HSP PRN PRN Reason: Acid Reflux Gabapentin [Gabapentin 300mg Cap] 300 mg PO TID Ibuprofen [Ibuprofen 800mg Tab] 800 mg PO TID Discontinued Tizanidine HCl [Zanaflex] 4 mg PO TIDP PRN PRN Reason: PAIN Tramadol HCl [Ultram 50mg tablet] 50 mg PO QIDP PRN #8 tab PRN Reason: Moderate Pain Oxycodone HCl/Acetaminophen [Percocet 10-325 mg Tab] 1 tab PO QIDP PRN PRN Reason: Moderate Pain
== END 2017-12-13 16:16 | disposition home or self-care (01) ==
LOC: OR 11:37 → OB 11:39
PROVIDERS: ADMIT Obstetrics & Gynecology; ATTEND Obstetrics & Gynecology

== ENCOUNTER 2017-12-19 14:08 | Inpatient (IN) ==
[2017-12-19 14:52] LABS: Basophils # 0.1 K/mm3 (0-0.2); Basophils % 0.4 % (0.1-2.0); Eosinophils # 0.7 K/mm3 (0.0-0.4); Eosinophils % 4.7 % (0.1-12.0); Hematocrit 45.4 % (37.0-47.0); Hemoglobin 13.6 g/dL (12.2-16.2); Lymphocytes # 2.3 K/mm3 (0.7-4.5); Lymphocytes % 15.6 K/mm3 (10-50); Mean Corpuscular HGB Conc 29.9 g/dL (31.8-35.4); Mean Corpuscular Hemoglobin 23.6 pg (27.0-31.2); Mean Corpuscular Volume 78.7 fl (81-99); Monocytes # 0.7 K/mm3 (0.1-1.0); Monocytes % 4.6 % (1.7-9.3); Neutrophils # 11.2 K/mm3 (1.8-7.8); Neutrophils % 74.8 % (37.0-80.0); Platelet Count 672 K/mm3 (142-424); Red Blood Count 5.76 M/mm3 (4.20-5.40); Red Cell Distribution Width 14.7 % (11.5-17.5)
[2017-12-19 15:02] LABS: Albumin Level 3.5 gm/dL (3.4-5.0); Albumin/Globulin Ratio 0.8 (1.1-1.8); Bilirubin,Total 0.2 mg/dL (0.2-1.0); Calcium 9.1 mg/dL (8.5-10.1); Globulin 4.6 gm/dl (1.3-3.2); Total Protein,Serum 8.1 gm/dL (6.4-8.2)
--- NOTE | 2017-12-19 15:11 | Emergency Department Note ---
ED Disposition Clinical Impression: Yeast dermatitis Cellulitis Qualifiers: Site of cellulitis: trunk Site of cellulitis of trunk: abdominal wall Qualified Code(s): L03.311 - Cellulitis of abdominal wall Surgical wound infection Qualifiers: Encounter type: initial encounter Qualified Code(s): T81.4XXA - Infection following a procedure, initial encounter Disposition: Still a Patient Condition on Discharge: Good Instructions: DI for Skin Abscess Referrals: Jojo Whyte APRN [Primary Care Provider] - - Critical Care Critical Care Time: No Attestation: On 12/19/17, the high probability of a clinically significant, sudden or life threatening deterioration of the following system(s) required my full and direct attention, intervention and personal management. The time I documented below is in addition to time spent performing reported procedures but includes the following listed in this critical care notation. Medical Decision Making - Olu Inquiry Pt receiving controlled substance: Yes lOu was queried for this patient: No Reason not queried -: Emergent pt cond-no time Risks and benefits of using a controlled substance: were not discussed with pt by me Vital Signs: 12/19/17 14:27 Temperature 98.3 F Temperature Source Oral Pulse Rate [Right Brachial] 75 Respiratory Rate 18 Blood Pressure [Right Arm] 161/95 Blood Pressure Mean [Right Arm] 117 Blood Pressure Source [Right Arm] Automatic Cuff Blood Pressure Position [Right Arm] Sitting 02 Sat by Pulse Oximetry 98 Oxygen Delivery Method Room Air - Lab Data Lab Results 12/19/17 14:40: WBC 15.0 H, RBC 5.76 H, Hgb 13.6, Hct 45.4, MCV 78.7 L, MCH 23.6 L, MCHC 29.9 L, RDW 14.7, Plt Count 672 H, MPV 7.0 L, Neut % (Auto) 74.8, Lymph % (Auto) 15.6, [place] % (Auto) 4.6, Eos % (Auto) 4.7, Baso % (Auto) 0.4, Neut # (Auto) 11.2 H, Lymph # (Auto) 2.3, [place] # (Auto) 0.7, Eos # (Auto) 0.7 H , Baso # (Auto) 0.1 12/19/17 14:40: Sodium 140, Potassium 4.0, Chloride 105, Carbon Dioxide 27, Anion Gap 12.0, BUN 11, Creatinine 0.88, Estimated Creat Clear 139, Estimated GFR 74, Est GFR ( Amer) 90, Glucose 102, Calcium 9.1, Total Bilirubin 0.2 , AST 14 L, ALT 24, Alkaline Phosphatase 74, Total Protein 8.1, Albumin 3.5, Globulin 4.6 H, Albumin/Globulin Ratio 0.8 L 12/19/17 14:40: Lactic Acid 1.1 Result diagrams: 12/19/17 14:40 12/19/17 14:40 Orders (Tests/Meds): ORDERS Category Date Time Status Complete Blood Count Auto Diff Stat Lab 12/19/17 14:40 Results Blood Culture Stat Micro 12/19/17 14:40 Received Wound Culture and Gram Stain Stat Micro 12/19/17 15:18 Ordered Medical Decision Narrative: 3:24 PM: I have discussed the case with Dr. Mcdaniels who agrees to admit the patient to the hospital. We discussed the patient's clinical information, including history, exam, laboratory and radiology results and ED course. Per hospital procedure, I will write temporary bridge inpatient orders on the patient. Specific orders requested by the admitting physician: Intravenous Flagyl and clindamycin. Oral Diflucan 150 mg daily. General Adult HPI - General Chief complaint: Skin/Abscess/Foreign Body Stated complaint: post op stomach pain n/v Time Seen by Provider: 12/19/17 15:11 Mode of Arrival: Ambulatory Limitations: No Limitations Description of Symptoms (Recalled from ER Triage Doc. by RN): POSSIBLE INFECTED ABDOMEN INCISION - History of Present Illness HPI narrative: The patient was admitted here from 12/09/17 to 12/13/17. She had a right salpingo- oophorectomy for an endometrioma. She says that she was doing well until yesterday morning. She started having pain at her incision site at that time. She says she ran a fever of 100.1. She has also been vomiting and unable to hold anything down. She has Phenergan at home which was not working. She was on pain medication, but is out since Wednesday 2 days ago. She has a large panniculus, has not been able to see her wound. Uncertain whether there is any dehiscence of the wound. Has not noted any drainage. - Related Data Home Medications Medication Instructions Recorded Confirmed albuterol sulfate HFA 90 2 puff INHALATION Q4-6H PRN 10/21/17 12/09/17 mcg/actuation aerosol inhaler buspirone 30 mg tablet 30 mg PO TIDP PRN tab 10/21/17 12/10/17 hydrochlorothiazide 25 mg tablet 25 mg PO DAILY 10/21/17 12/10/17 paroxetine 40 mg tablet 60 mg PO DAILY 10/21/17 12/10/17 ranitidine 150 mg capsule 150 mg PO HSP PRN 10/21/17 12/10/17 Gabapentin [Gabapentin 300mg Cap] 300 mg PO TID 12/06/17 12/09/17 Ibuprofen [Ibuprofen 800mg Tab] 800 mg PO TID 12/10/17 12/10/17 Previous Rx's Medication Instructions Recorded Acetaminophen [Acetaminophen 325mg 650 mg PO Q4HP PRN tablet 12/13/17 tab] Hydromorphone HCl [Dilaudid 2mg 4 mg PO Q6HP PRN #30 tablet 12/13/17 tablet] Ibuprofen [Motrin 400mg 400 mg PO Q4HP PRN tablet 12/13/17 tablet] hydroCHLOROthiazide [HCTZ 25mg 25 mg PO DAILY tablet 12/13/17 tab] Allergies Allergy/AdvReac Type Severity Reaction Status Date / Time Penicillins Allergy Severe Hives Verified 12/09/17 12:34 gatifloxacin [From TEQUIN] Allergy Mild Verified 12/09/17 10:48 ketorolac [From TORADOL] Allergy Mild Verified 12/09/17 10:48 aztreonam [AZTREONAM] Allergy Unknown NA-NAUSEA/V Verified 12/09/17 10:48 OMITING cefaclor [CEFACLOR] Allergy Unknown Verified 12/09/17 10:48 codeine [CODEINE] Allergy Unknown BLEEDING Verified 12/09/17 10:48 OF EYES AND NOSE doxycycline [DOXYCYCLINE] Allergy Unknown Verified 12/09/17 10:48 levofloxacin [From LEVAQUIN] Allergy Unknown Verified 12/09/17 10:48 midazolam [From VERSED] Allergy Unknown Verified 12/09/17 10:48 ondansetron Allergy Unknown Verified 12/09/17 10:48 [From ZOFRAN ( HYDROCHLORIDE)] sulfamethoxazole Allergy Unknown Verified 12/09/17 10:48 [From BACTRIM] trimethoprim [From BACTRIM] Allergy Unknown Verified 12/09/17 10:48 tramadol Allergy Verified 12/09/17 10:48 [facility] History I have reviewed the patient's past medical history: Yes 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: Reports:: Asthma, Hyperlipidemia, Hypertension Denies:: Diabetes Mellitus Type 1, Diabetes Mellitus Type 2 Other 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: Reports: Other Comment: TROUBLE WITH ANESTHESIA. PTSD. Asthma. Anxiety. Depression. Kidney Stones. Fibromyalgia. Pancreatitis Laterality Cases: Bilateral: Myringotomy (Ear Tubes), Tonsillectomy Other Surgeries: Yes: Hernia Repair, Ureter Stent, Other (GALL BLADDER, T&A) Amputation: No Fractures: No Comment: Bilateral ear tubes as child. TonsilX and AdenoidX as child. Umbilical Hernia Repair as child. Ureter stent placement. Gallbladder removal- -2007. 2006 to present--Kidney Stone Removals - 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 Educational Level: Completed High School Smoking Status: Former smoker Tobacco Type: smokeless tobacco Alcohol Intake: never Substance Use Type: denies use Occupational Status: unemployed - Psychiatric History Expresses thoughts of harming self/others: None Suicide Plan Description: No Plan Family Hx:: No significant family history ROS Obtained: Yes All systems reviewed & no additional complaints - Constitutional Constitutional: Reports fever(s) - Gastrointestinal Gastrointestingal: Reports: abdominal pain, vomiting Physical Exam - General General appearance: alert, in no apparent distress - Head Head exam: atraumatic, normocephalic, normal inspection - Eye Eye exam: Present: normal appearance, PERRL, EOMI - ENT ENT exam: Present: normal exam, normal oropharynx, mucous membranes moist, TM's normal bilaterally, normal external ear exam - Neck Neck exam: Present: normal inspection, full ROM, trachea midline. Absent: meningismus, lymphadenopathy - Chest Chest inspection: Present: normal inspection, symmetric chest wall rise. Absent : tenderness - Respiratory Respiratory exam: Present: normal lung sounds bilaterally. Absent: respiratory distress - Cardiovascular Cardiovascular exam: Present: regular rate, normal rhythm. Absent: JVD - Abdominal Exam Abdominal exam: Present: soft, tenderness (Lower abdomen around surgical incision), normal bowel sounds. Absent: distention, guarding, rebound, rigidity Comment: Erythema surrounding surgical incision. Superficial dehiscence of wound edges bloody cloudy drainage, malodorous. Erythema of bilateral proximal thighs which patient states has been present in the past from yeast infections. - Extremities Exam Extremities exam: Present: normal inspection, full ROM, normal capillary refill. Absent: calf tenderness - Back Exam Back exam: Present: normal inspection. Absent: tenderness - Neurological Exam Neurological exam: Present: alert, oriented X3 - Psychiatric Psychiatric exam: Present: normal affect, normal mood - Skin Skin exam: Present: warm, dry, intact, normal color
[2017-12-19 15:32] LABS: Eosinophils % 4 % (0-3); Lymphocytes % 9 % (10-50); Monocytes % 7 % (2-9); Neutrophils % 80 % (42-76); Total Cells Counted 100
[2017-12-19 15:33] LABS: RBC Morphology Normal
[2017-12-20 07:16] LABS: Basophils # 0.1 K/mm3 (0-0.2); Basophils % 0.3 % (0.1-2.0); Monocytes # 0.8 K/mm3 (0.1-1.0); Neutrophils % 76.3 % (37.0-80.0)
--- NOTE | 2017-12-20 07:19 | Progress Note ---
Internal Medicine - PN: Subj *Date: 12/20/17 *Time: 07:17 (This 32-year-old white female was admitted to the emergency room last night, 12 days postop exploratory laparotomy and right salpingo- oophorectomy for large endometrioma and extensive adhesions. She has a history of PTSD and has had difficulty with pain control since her surgery. She presented to the emergency room with nausea and vomiting and pain, and had an emergency room diagnosis of wound infection. She was started on intravenous clindamycin and Flagyl. She stated that she had a fever at home, but she has been afebrile in the emergency room and since. Her white count was somewhat elevated, and a repeat CT has been drawn this morning. Examination of her wound this morning reveals a slight separation of the wound with fibrin formation, but no evidence of actual infection. Cultures done in the emergency room are pending.) Exam Vital signs and Labs for Last 24 Hours: Temp Pulse Resp BP Pulse Ox 97.7 F 86 18 170/94 97 12/20/17 04:50 12/20/17 04:50 12/20/17 04:50 12/20/17 04:50 12/20/17 04:50 I & O for Last 24 hours: Intake & Output 12/17/17 12/18/17 12/19/17 12/20/17 11:59 11:59 11:59 11:59 Intake Total 1000 / 1000 Balance 1000 / 1000 Weight 219 lb 9 oz
--- NOTE | 2017-12-20 07:22 | Pharmacy Consult Notes ---
[facility] Pharmacy VTE Monitoring - Patient Demographics Admission date: 12/19/17 Report Date: 12/20/17 Time: 07:21 Allergies/Adverse Reactions: Patient Allergies Penicillins Allergy (Severe, Verified 12/09/17 12:34) Hives gatifloxacin [From TEQUIN] Allergy (Mild, Verified 12/09/17 10:48) ketorolac [From TORADOL] Allergy (Mild, Verified 12/09/17 10:48) aztreonam [AZTREONAM] Allergy (Unknown, Verified 12/09/17 10:48) NA-NAUSEA/VOMITING cefaclor [CEFACLOR] Allergy (Unknown, Verified 12/09/17 10:48) codeine [CODEINE] Allergy (Unknown, Verified 12/09/17 10:48) BLEEDING OF EYES AND NOSE doxycycline [DOXYCYCLINE] Allergy (Unknown, Verified 12/09/17 10:48) levofloxacin [From LEVAQUIN] Allergy (Unknown, Verified 12/09/17 10:48) midazolam [From VERSED] Allergy (Unknown, Verified 12/09/17 10:48) ondansetron [From ZOFRAN ( HYDROCHLORIDE)] Allergy (Unknown, Verified 10:48) sulfamethoxazole [From BACTRIM] Allergy (Unknown, Verified 12/09/17 10:48) trimethoprim [From BACTRIM] Allergy (Unknown, Verified 12/09/17 10:48) tramadol Allergy (Verified 12/09/17 10:48) Height: 1.55 m Weight: 99.592 kg Patient Problems: Current Active Problems Cellulitis (Acute) Surgical wound infection (Acute) Yeast dermatitis (Acute) - VTE Risk Labs: VTE Related Lab Results Hgb 13.6 g/dL (12.2-16.2) 12/19/17 14:40 Hct 45.4 % (37.0-47.0) 12/19/17 14:40 Plt Count 672 K/mm3 (142-424) H 12/19/17 14:40 BUN 11 mg/dL (7-18) 12/19/17 14:40 Creatinine 0.88 mg/dL (0.55-1.02) 12/19/17 14:40 Estimated Creat Clear 139 mL/min (0-300) 12/19/17 14:40 Was VTE Risk Assessment Performed: Yes VTE Score: 3 VTE Risk Level: Low Risk - Prophylaxis VTE Prophylaxis Ordered?: Yes Types of VTE Prophylaxis: TEDS Knee High Location of Applied Device: Bilateral Lower Extremeties - VTE Diagnosis Confirmed Treatment or plan recommended: Continue Current Treatment
[2017-12-20 07:24] LABS: Eosinophils # 0.7 K/mm3 (0.0-0.4); Eosinophils % 4.4 % (0.1-12.0); Hematocrit 37.3 % (37.0-47.0); Lymphocytes # 2.3 K/mm3 (0.7-4.5); Lymphocytes % 14.1 K/mm3 (10-50); Mean Corpuscular HGB Conc 29.4 g/dL (31.8-35.4); Mean Corpuscular Hemoglobin 23.2 pg (27.0-31.2); Mean Corpuscular Volume 78.8 fl (81-99); Mean Platelet Volume 7.3 fl (7.4-10.4); Monocytes % 4.9 % (1.7-9.3); Neutrophils # 12.3 K/mm3 (1.8-7.8); Platelet Count 645 K/mm3 (142-424); Red Blood Count 4.73 M/mm3 (4.20-5.40); Red Cell Distribution Width 14.7 % (11.5-17.5); White Blood Count 16.1 K/mm3 (4.8-10.8)
[2017-12-20 07:50] LABS: Eosinophils % 6 % (0-3); Lymphocytes % 11 % (10-50); Monocytes % 9 % (2-9); Neutrophils % 74 % (42-76); Total Cells Counted 100
[2017-12-20 07:51] LABS: RBC Morphology Normal
--- NOTE | 2017-12-20 16:20 | Progress Note ---
Internal Medicine - PN: Subj *Date: 12/20/17 *Time: 16:19 (The patient remains afebrile. Her wound continues to look clean. Cultures are still pending. She remains on antibiotics, and she has had significant pain control issues (which may be related to her anxiety and PTSD). Plan is to observe overnight, and restart her BuSpar 3 times daily and Paxil once a day.) Exam Vital signs and Labs for Last 24 Hours: Temp Pulse Resp BP Pulse Ox 97.0 F L 94 H 20 166/96 97 12/20/17 16:00 12/20/17 16:00 12/20/17 16:00 12/20/17 16:00 12/20/17 16:00 Laboratory Results - last 24 hr 12/20/17 06:55: WBC 16.1 H, RBC 4.73, Hgb 11.0 L D, Hct 37.3, MCV 78.8 L, MCH 23.2 L, MCHC 29.4 L, RDW 14.7, Plt Count 645 H, MPV 7.3 L, Neut % (Auto) 76.3, Lymph % (Auto) 14.1, [place] % (Auto) 4.9, Eos % (Auto) 4.4, Baso % (Auto) 0.3, Neut # (Auto) 12.3 H, Lymph # (Auto) 2.3, [place] # (Auto) 0.8, Eos # (Auto) 0.7 H , Baso # (Auto) 0.1, Total Counted 100, Neutrophils % (Manual) 74, Lymphocytes % (Manual) 11, Monocytes % (Manual) 9, Eosinophils % (Manual) 6 H, Platelet Estimate Moderate increase, RBC Morphology Normal I & O for Last 24 hours: Intake & Output 12/18/17 12/19/17 12/20/17 12/21/17 11:59 11:59 11:59 11:59 Intake Total 1820 / 1820 840 / 840 Balance 1820 / 1820 840 / 840 Weight 219 lb 9 oz 219 lb 9.004 oz
--- NOTE | 2017-12-21 06:48 | Progress Note ---
Internal Medicine - PN: Subj *Date: 12/21/17 *Time: 06:48 (The patient remains afebrile. Vital signs stable. Wound continues to be clean. Will be discharged today.) Exam Vital signs and Labs for Last 24 Hours: Temp Pulse Resp BP Pulse Ox 98.2 F 87 16 154/92 98 12/21/17 03:30 12/21/17 03:30 12/21/17 03:30 12/21/17 03:30 12/21/17 03:30 Laboratory Results - last 24 hr 12/20/17 06:55: WBC 16.1 H, RBC 4.73, Hgb 11.0 L D, Hct 37.3, MCV 78.8 L, MCH 23.2 L, MCHC 29.4 L, RDW 14.7, Plt Count 645 H, MPV 7.3 L, Neut % (Auto) 76.3, Lymph % (Auto) 14.1, [place] % (Auto) 4.9, Eos % (Auto) 4.4, Baso % (Auto) 0.3, Neut # (Auto) 12.3 H, Lymph # (Auto) 2.3, [place] # (Auto) 0.8, Eos # (Auto) 0.7 H , Baso # (Auto) 0.1, Total Counted 100, Neutrophils % (Manual) 74, Lymphocytes % (Manual) 11, Monocytes % (Manual) 9, Eosinophils % (Manual) 6 H, Platelet Estimate Moderate increase, RBC Morphology Normal I & O for Last 24 hours: Intake & Output 12/18/17 12/19/17 12/20/17 12/21/17 11:59 11:59 11:59 11:59 Intake Total 1820 / 1820 3082 / 3082 Output Total 600 / 600 Balance 1820 / 1820 2482 / 2482 Weight 219 lb 9 oz 219 lb 9.004 oz
--- NOTE | 2017-12-21 06:53 | Discharge Summary ---
General - General Admission date: 12/19/17 Discharge date: 12/21/17 Hospital Course Hospital Course: This 32-year-old white female was admitted through the emergency room 10 days post exploratory laparotomy for a right salpingo-oophorectomy (endometrioma) with complaints of nausea and an ER diagnosis of a wound infection. She was started on intravenous clindamycin and Flagyl. She stated that she had a fever at home, but has been afebrile throughout the entire course of this hospitalization. Clinical examination reveals a slight superficial dehiscence of her wound, with minor inflammation, but no evidence of actual infection. She was treated with Phenergan, and is done well. She will be discharged today on oral Keflex 500 mg 4 times daily (#30). She states that in spite of multiple allergies to medications, she has been able to use Keflex along with Benadryl, without complications or side effects. She has an office appointment scheduled 6 days hence. Objective Vital signs: Temp Pulse Resp BP Pulse Ox 98.2 F 87 16 154/92 98 12/21/17 03:30 12/21/17 03:30 12/21/17 03:30 12/21/17 03:30 12/21/17 03:30 Results Labs on day of discharge: Labs from last 24 hours 12/20/17 06:55 WBC 16.1 H RBC 4.73 Hgb 11.0 L D Hct 37.3 MCV 78.8 L MCH 23.2 L MCHC 29.4 L RDW 14.7 Plt Count 645 H MPV 7.3 L Neut % (Auto) 76.3 Lymph % (Auto) 14.1 [place] % (Auto) 4.9 Eos % (Auto) 4.4 Baso % (Auto) 0.3 Neut # (Auto) 12.3 H Lymph # (Auto) 2.3 [place] # (Auto) 0.8 Eos # (Auto) 0.7 H Baso # (Auto) 0.1 Total Counted 100 Neutrophils % (Manual) 74 Lymphocytes % (Manual) 11 Monocytes % (Manual) 9 Eosinophils % (Manual) 6 H Platelet Estimate Moderate increase RBC Morphology Normal Discharge Plan - Patient Discharge Instructions - Follow up Plan Home Medications: Home Medications Medication Instructions Recorded Confirmed Type buspirone 30 mg tablet 30 mg PO TIDP PRN tab 10/21/17 12/19/17 History hydrochlorothiazide 25 mg tablet 25 mg PO DAILY 10/21/17 12/19/17 History paroxetine 40 mg tablet 60 mg PO DAILY 10/21/17 12/19/17 History Gabapentin [Gabapentin 300mg Cap] 300 mg PO TID 12/06/17 12/19/17 History Trazodone HCl 50 mg PO HS 12/19/17 12/19/17 History Acetaminophen [Acetaminophen 325mg 650 mg PO Q4HP PRN 12/20/17 12/20/17 History tab] Albuterol Sulfate [Albuterol HFA 2 puffs IH Q4-6H PRN 12/20/17 12/20/17 History Inhaler] Ibuprofen [Motrin 400mg 400 mg PO Q4HP PRN 12/20/17 12/20/17 History tablet] raNITIdine HCl [Ranitidine HCl] 150 mg PO HSP PRN 12/20/17 12/20/17 History Prescriptions/Medication Reconciliation: No Action hydrochlorothiazide 25 mg tablet 25 mg PO DAILY buspirone 30 mg tablet 30 mg PO TIDP PRN tab PRN Reason: Anxiety paroxetine 40 mg tablet 60 mg PO DAILY Gabapentin [Gabapentin 300mg Cap] 300 mg PO TID Albuterol Sulfate [Albuterol HFA Inhaler] 2 puffs IH Q4-6H PRN PRN Reason: Shortness Of Breath Or Wheezing Acetaminophen [Acetaminophen 325mg tab] 650 mg PO Q4HP PRN PRN Reason: PAIN OR FEVER raNITIdine HCl [Ranitidine HCl] 150 mg PO HSP PRN PRN Reason: Acid Reflux Trazodone HCl 50 mg PO HS Ibuprofen [Motrin 400mg tablet] 400 mg PO Q4HP PRN PRN Reason: PAIN
[2017-12-21 07:40] VITALS: BP 145/94
== END 2017-12-21 11:15 | disposition home or self-care (01) ==
LOC: 2ND 14:08 → ER 14:08 → OBSVTOIN 15:50 → 2ND 15:52
PROVIDERS: ADMIT Obstetrics & Gynecology; ATTEND Obstetrics & Gynecology

== ENCOUNTER → 2017-12-23 17:23 | Outpatient (CLI) | payer MEDICAID, OTHER, SELFPAY ==
[2017-12-23 17:57] LABS: Basophils # 0.1 K/mm3 (0-0.2); Basophils % 0.5 % (0.1-2.0); Eosinophils # 0.8 K/mm3 (0.0-0.4); Eosinophils % 4.4 % (0.1-12.0); Hematocrit 39.9 % (37.0-47.0); Lymphocytes % 17.1 K/mm3 (10-50); Mean Corpuscular HGB Conc 30.1 g/dL (31.8-35.4); Mean Corpuscular Hemoglobin 23.7 pg (27.0-31.2); Mean Corpuscular Volume 78.5 fl (81-99); Mean Platelet Volume 7.5 fl (7.4-10.4); Monocytes # 0.7 K/mm3 (0.1-1.0); Platelet Count 851 K/mm3 (142-424); Red Blood Count 5.08 M/mm3 (4.20-5.40); Red Cell Distribution Width 15.1 % (11.5-17.5); White Blood Count 17.6 K/mm3 (4.8-10.8)
[2017-12-23 17:59] LABS: Alanine Aminotransferase 25 U/L (12-78); Albumin Level 3.4 gm/dL (3.4-5.0); Albumin/Globulin Ratio 0.8 (1.1-1.8); Alkaline Phosphatase 68 U/L (46-116); Anion Gap 12.2 mEq/L (5-15); Aspartate Amino Transferase 13 U/L (15-37); Bilirubin,Total 0.3 mg/dL (0.2-1.0); Blood Urea Nitrogen 14 mg/dL (7-18); Calcium 8.9 mg/dL (8.5-10.1); Carbon Dioxide 26 mmol/L (21.0-32.0); Chloride 108 mmol/L (98-107); Estimated Glomerular Filt Rate 73 ml/min (>60); GFR (African American) 88 ML/MIN (>60); Globulin 4.2 gm/dl (1.3-3.2); Glucose 118 mg/dL (74-106); MANUAL DIFFERENTIAL MANUAL DIFFERENTIAL (MANUAL DIFF); Potassium 4.2 mmoL/L (3.5-5.1); Sodium 142 mmol/L (136-145); Total Protein,Serum 7.6 gm/dL (6.4-8.2)
[2017-12-23 19:18] LABS: Eosinophils % 5 % (0-3); Lymphocytes % 18 % (10-50); Monocytes % 10 % (2-9); Neutrophils % 67 % (42-76); Platelet Estimate Marked Increase; Total Cells Counted 100
[2017-12-23 19:19] LABS: Hypochromasia 2+; Microcytosis 1+
== END ==
PROVIDERS: Visit Provider Specialist
DX: R51 Headache (principal); R03.0 Elevated blood-pressure reading, without diagnosis of hypertension; D72.829 Elevated white blood cell count, unspecified
CPT/HCPCS: 36415; 80053; 85007; 85025

== ENCOUNTER → 2018-01-06 17:23 | Outpatient (REF) | payer MEDICAID, OTHER, SELFPAY | LOC: LAB 17:23 | PROVIDERS: Visit Provider Nurse Practitioner Obstetrics & Gynecology | DX: T81.4XXA Infection following a procedure, initial encounter (principal) | CPT/HCPCS: 87070; 87077; 87186; 87205 ==

== ENCOUNTER 2018-01-21 14:00 | Outpatient (RCR) | payer MEDICAID, OTHER, SELFPAY ==
--- NOTE | 2018-01-10 15:10 | [facility].PTOPWND ---
Rehab Outpt Wound Evaluation Rehab OP Wound Evaluation Start: 01/10/18 14:53 Freq: Status: Active Protocol: Document 01/10/18 14:53 SHANKAR (Rec: 01/10/18 15:08 PHORNE [id number]) Electronically Signed By Abdoul Álvarez, PT 01/10/18 14:53 Subjective/History History History Pt presents with c/o slow healing abdominal incision 1 mo S/P single ovary removal due to endometriosis. She reports constant pain in the lower abdomen, worse with dressing changes. She reports heavy drainage that, looks green like snot. She reports PMH of HTN and fibromyalgia Subjective Subjective Pt reports skin surrounding her wound is very irritated due to tape. Wound Eval Wound Lower Abdomen Wound Type Incision Is This a Chronic Wound No Wound Length (cm) 2.0 Wound Width (cm) 5.4 Wound Depth (cm) 1.5 Wound Bed Appearance Beefy Red Percentage Granulated (%) 100 Wound Margins Description Well Defined Drainage Description Serosanguineous Drainage Amount Moderate Drainage Odor No Odor Dressing Status Changed Wound Topical Solution/Irrigant Saline Irrigant Packing Type Alginate Comment Opticell Ag Primary Dressing Composite Wound Debridement Method Forceps Wound Debridement Amount of Tissue Minimal Removed Dressing Change Patient Tolerance Tolerated Well Wound Problems/Impairments Impairments Problems/Impairmments Palpation Tenderness Wound Care Needs Subjective C/O Pain Impaired Self Care/Self Management Prognosis Rehab Potential Fair Clinical Impression Consistent with Diagnosis Yes Short Term Goals Number of Weeks 4 Decreased Palpation Tenderness Yes: to min Decrease Wound Area Yes: by 25% Decrease Subjective C/O Pain Yes: 01/20 Patient to be Ind w/ Home Wound Care/ Yes Dressing Changes [employer] Turbine [employer] Goals Number of Weeks 8 Decreased Palpation Tenderness Yes: to none Decrease Wound Area Yes: by 75% Decrease Drainage Yes: by 50% Decrease Subjective C/O Pain Yes: 11/20 Outpatient Therapy Plan of Care Treatment Plan May Include Therapeu
== END 2018-01-21 14:01 | disposition home or self-care (01) ==
LOC: PT 14:00
PROVIDERS: Family Provider Family Medicine; PCP Nurse Practitioner Family; Visit Provider Obstetrics & Gynecology
DX: T81.89XA Other complications of procedures, not elsewhere classified, initial encounter (principal)
CPT/HCPCS: 97162; 97597

== ENCOUNTER → 2018-02-25 12:27 | Outpatient (CLI) | payer MEDICAID, OTHER, SELFPAY ==
--- NOTE | 2018-02-25 12:32 | US_ITS ---
US transvaginal HISTORY: Follow-up ovarian cyst ITS.REASON: ovarian cyst ORDERING PHYSICIAN: Bj Mcgrath MD PATIENT AGE: 32 years Comparison: 12/06/2017 FINDINGS: The uterus is 8.7 x 4.8 x 5.9 cm. The endometrium is thickened at 16 mm. There is a 19 mm area of heterogeneous echogenicity along the posterior aspect of the body the uterus/lower uterine segment consistent with a fibroid not significantly changed. There is a nabothian cyst which measures 11 mm. The left ovary is enlarged measuring 7 x 4.8 cm with a multicystic appearance. A septated cyst is present measuring 5 x 4 cm and a 2.5 x 2.4 cm cyst is also noted. Right ovary has been surgically removed. No cul-de-sac fluid is evident. IMPRESSION: Interval right oophorectomy The left ovary now has a complex multicystic appearance with the ovary measuring up to 6.8 x 4.8 cm
== END ==
PROVIDERS: Family Provider Family Medicine; PCP Nurse Practitioner Family; Visit Provider Obstetrics & Gynecology
DX: N83.202 Unspecified ovarian cyst, left side (principal)
CPT/HCPCS: 76830

== ENCOUNTER 2018-10-31 15:27 | Observation (INO) ==
[2018-10-31 15:50] LABS: Microscopic, Urine URINE MICROSCOPIC (MICROSCOPIC)
[2018-10-31 15:52] LABS: Appearance,Urine CLEAR (Clear); Bilirubin,Urine Negative (Negative); Blood, Urine 1+ (Negative); Color,Urine YELLOW (Yellow); Glucose,Urine (UA) Negative (Negative); Ketones,Urine Negative (Negative); Leukocyte Esterase,Urine 3+ (Negative); PH,Urine 6.5 (5.0-8.5); Protein,Urine Negative (Negative); Urobilinogen,Urine 0.2 EU/dl (0.2)
[2018-10-31 16:13] LABS: RBC,Urine Occasional #/hpf (0-3); WBC,Urine 20-50 #/hpf (0-3)
[2018-10-31 16:14] LABS: Bacteria,Urine Trace /lpf
[2018-10-31 17:42] LABS: Basophils % 0.1 % (0.1-2.0); Eosinophils # 0.3 K/mm3 (0.0-0.4); Hematocrit 38.6 % (37.0-47.0); Hemoglobin 12.4 g/dL (12.2-16.2); Lymphocytes # 1.2 K/mm3 (0.7-4.5); Lymphocytes % 8.1 % (10-50); Mean Corpuscular Hemoglobin 23.3 pg (27.0-31.2); Mean Corpuscular Volume 72.7 fl (81-99); Mean Platelet Volume 6.7 fl (7.4-10.4); Monocytes # 0.8 K/mm3 (0.1-1.0); Monocytes % 5.4 % (1.7-9.3); Neutrophils # 12.4 K/mm3 (1.8-7.8); Neutrophils % 84.4 % (37.0-80.0); Platelet Count 405 K/mm3 (142-424); Red Cell Distribution Width 16.6 % (11.5-17.5); White Blood Count 14.7 K/mm3 (4.8-10.8)
[2018-10-31 17:51] LABS: Albumin Level 3.1 gm/dL (3.4-5.0); Albumin/Globulin Ratio 0.6 (1.1-1.8); Anion Gap 13.9 mEq/L (5-15); Bilirubin,Total 0.6 mg/dL (0.2-1.0); Calcium 8.8 mg/dL (8.5-10.1); Globulin 4.8 gm/dl (1.3-3.2); Potassium 3.9 mmoL/L (3.5-5.1); Total Protein,Serum 7.9 gm/dL (6.4-8.2)
--- NOTE | 2018-10-31 18:45 | Emergency Department Note ---
ED Disposition Clinical Impression: Hydronephrosis with urinary obstruction due to ureteral calculus, Urinary tract infection Disposition: Admitted as Observation Condition on Discharge: Good Referrals: Jojo Whyte APRN [Primary Care Provider] - Time of Disposition: 20:17 - Critical Care Critical Care Time: No Attestation: On 10/31/18, the high probability of a clinically significant, sudden or life threatening deterioration of the following system(s) required my full and direct attention, intervention and personal management. The time I documented below is in addition to time spent performing reported procedures but includes the following listed in this critical care notation. Medical Decision Making - Medical Records Medical records reviewed: Yes: I reviewed the patient's medical records. - Olu Inquiry Pt receiving controlled substance: No Olu was queried for this patient: No Vital Signs: 10/31/18 15:33 Temperature 99.9 F H Temperature Source Oral Pulse Rate [Left Radial] 134 H Respiratory Rate 16 Blood Pressure [Right Arm] 142/92 H Blood Pressure Mean [Right Arm] 108 Blood Pressure Source [Right Arm] Automatic Cuff Blood Pressure Position [Right Arm] Sitting 02 Sat by Pulse Oximetry 97 Oxygen Delivery Method Room Air - Lab Data Lab results reviewed: Yes: I reviewed the patient's lab results. Lab Results 10/31/18 15:40: Urine Color Yellow, Urine Appearance Clear, Urine pH 6.5, Ur Specific [place] 1.010, Urine Protein Negative, Urine Glucose (UA) Negative, Urine Ketones Negative, Urine Blood 1+, Urine Nitrate Negative, Urine Bilirubin Negative, Urine Urobilinogen 0.2, Ur Leukocyte Esterase 3+ A, Urine RBC Occasional, Urine WBC 20-50, Ur Squamous Epith Cells 3-5, Urine Bacteria Trace 10/31/18 17:35: WBC 14.7 H, RBC 5.30, Hgb 12.4, Hct 38.6, MCV 72.7 L, MCH 23.3 L , MCHC 32.0, RDW 16.6, Plt Count 405, MPV 6.7 L, Neut % (Auto) 84.4 H, Lymph % (Auto) 8.1 L, [place] % (Auto) 5.4, Eos % (Auto) 2.0, Baso % (Auto) 0.1, Neut # (Auto) 12.4 H, Lymph # (Auto) 1.2, [place] # (Auto) 0.8, Eos # (Auto) 0.3, Baso # (Auto) 0.0 10/31/18 17:35: Sodium 139, Potassium 3.9, Chloride 104, Carbon Dioxide 25, Anion Gap 13.9, BUN 14, Creatinine 1.20 H, Estimated Creat Clear 100, Estimated GFR 52 L, Est GFR ( Amer) 63, Glucose 99, Calcium 8.8, Total Bilirubin 0.6, AST 11 L, ALT 24, Alkaline Phosphatase 91, Total Protein 7.9, Albumin 3.1 L , Globulin 4.8 H, Albumin/Globulin Ratio 0.6 L, Amylase 29, Lipase 206 Result diagrams: 10/31/18 17:35 10/31/18 17:35 Orders (Tests/Meds): ED MEDICATIONS Generic Name Dose Route Start Last Admin Trade Name Freq PRN Reason Stop Dose Admin Ertapenem 1 gm/ Sodium 50 mls @ 100 mls/hr 10/31/18 20:15 Chloride IV 11/14/18 20:14 Q24H JUANA Protocol Discontinued Medications Generic Name Dose Route Start Last Admin Trade Name Freq PRN Reason Stop Dose Admin Ertapenem 1 gm 10/31/18 20:12 Invanz 1gm Vial IM 10/31/18 20:13 ONCE ONE Protocol Sodium Chloride 1,000 mls @ 999 mls/hr 10/31/18 15:45 10/31/18 15:52 Sod Chlor 0.9% 1000ml Bag IV 10/31/18 16:45 999 mls/hr .Q1H1M JUANA Administration ORDERS Category Date Time Status Urinalysis and Microscopic Stat Lab 10/31/18 15:40 Ordered Urine Culture Stat Micro 10/31/18 15:40 Received - Physician Consults Physician Consulted: italo Time: 20:02 Reason -: Admission Comment/Response: Dr. Zaragoza to place stent tania here [facility]. [facility] on divert, could not take this patient. General Adult HPI - General Chief complaint: PAIN Stated complaint: fever,nausa,pain left side Time Seen by Provider: 10/31/18 18:00 Mode of Arrival: Ambulatory Limitations: No Limitations Description of Symptoms (Recalled from ER Triage Doc. by RN): Pt states that a few days ago she started feeling bad and last night her left side started hurting and states she has a hx of kidney stones and this feels like that - History of Present Illness HPI narrative: fever, left flank pain, vomiting. - Related Data Home Medications Medication Instructions Recorded Confirmed buspirone 30 mg tablet 30 mg PO TIDP PRN tab 10/21/17 06/06/18 hydrochlorothiazide 25 mg tablet 25 mg PO DAILY 10/21/17 06/06/18 paroxetine 40 mg tablet 60 mg PO DAILY 10/21/17 06/06/18 Gabapentin [Gabapentin 300mg Cap] 400 mg PO TID 12/06/17 06/06/18 Albuterol Sulfate [Albuterol HFA 2 puffs IH Q4-6H PRN 12/20/17 06/06/18 Inhaler] raNITIdine HCl [Ranitidine HCl] 150 mg PO HSP PRN 12/20/17 06/06/18 Propranolol HCl 40 mg PO BID 12/25/17 06/06/18 Duloxetine HCl [Cymbalta 30mg 30 mg PO DAILY 03/15/18 06/06/18 capsule] Tizanidine HCl [Zanaflex] 8 mg PO TID 03/15/18 06/06/18 Nitrofurantoin Monohyd/M-Cryst 100 mg PO BID 06/03/18 06/06/18 [Macrobid 100 mg Capsule] Previous Rx's Medication Instructions Recorded Promethazine HCl [Phenergan 25mg 25 mg PO QIDP PRN #10 tab 01/19/18 tab] ibuprofen 800 mg tablet 800 mg PO .1Q6H PRN #30 tab 02/24/18 Acetaminophen/Diphenhydramine 1 each PO QIDP PRN #20 tab 03/15/18 [Percogesic 325-12.5 mg Tablet] Hydrocod/Acet 5/325 mg [[place] 1 tab PO Q6HP PRN #10 tab 06/03/18 5/325mg tablet] Promethazine HCl [Phenergan 25mg 25 edd PO Q4HP PRN #10 edd 09/15/18 Tablet Take Home Pack (10)] Allergies Allergy/AdvReac Type Severity Reaction Status Date / Time Penicillins Allergy Severe Hives Verified 06/03/18 04:32 gatifloxacin [From TEQUIN] Allergy Mild Verified 06/03/18 04:32 ketorolac [From TORADOL] Allergy Mild Verified 06/03/18 04:32 aztreonam [AZTREONAM] Allergy Unknown NA-NAUSEA/V Verified 06/03/18 04:32 OMITING cefaclor [CEFACLOR] Allergy Unknown Verified 06/03/18 04:32 codeine [CODEINE] Allergy Unknown BLEEDING Verified 06/03/18 04:32 OF EYES AND NOSE doxycycline [DOXYCYCLINE] Allergy Unknown Verified 06/03/18 04:32 levofloxacin [From LEVAQUIN] Allergy Unknown Verified 06/03/18 04:32 midazolam [From VERSED] Allergy Unknown Verified 06/03/18 04:32 ondansetron Allergy Unknown Verified 06/03/18 04:32 [From ZOFRAN ( HYDROCHLORIDE)] sulfamethoxazole Allergy Unknown Verified 06/03/18 04:32 [From BACTRIM] trimethoprim [From BACTRIM] Allergy Unknown Verified 06/03/18 04:32 tramadol Allergy Verified 06/03/18 04:32 [facility] History - Hepatitis A Screen Drug use history?: No High risk sexual behaviors?: No History of sexually transmitted infection?: No Currently employed?: No Childcare worker?: No Do you have indoor plumbing?: Yes Do you have electricity?: Yes Attestation statement:: This patient has been screened for Hepatitis A risk factors. I have reviewed the patient's past medical history: Yes 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: Reports:: Anxiety, Asthma, Depression, Gastroesophageal Reflux Disease(GERD), Hyperlipidemia, Hypertension, Kidney Stones, Migraine Denies:: Cancer, Diabetes Mellitus Type 1, Diabetes Mellitus Type 2, MRSA Other 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: Reports: Fibromyalgia, Other Comment: TROUBLE WITH ANESTHESIA. PTSD. Asthma. Anxiety. Depression. Kidney Stones. Fibromyalgia. Pancreatitis. Diverticulitis Laterality Cases: Bilateral: Myringotomy (Ear Tubes), Tonsillectomy Other Surgeries: Yes: Hernia Repair, Ureter Stent, Other Amputation: No Fractures: No Comment: Bilateral ear tubes as child. TonsilX and AdenoidX as child. Umbilical Hernia Repair as child. Ureter stent placement. Gallbladder removal--2007. 2006 to present--Kidney Stone Removals. Exp. lap., P/W, Extensive lysis of adhesion's, RSO, Myomectomy--12/09/2017 - 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 Smoking Status: Current every day smoker Tobacco Type: smokeless tobacco # Packs/Day (cigarettes): 1 Alcohol Intake: never Substance Use Type: denies use Occupational Status: unemployed Housing: apartment Household Members: friend(s) - Psychiatric History Expresses thoughts of harming self/others: None Suicide Plan Description: No Plan Pschychiatric History:: Reports:: Anxiety, Depression Family Hx:: Adopted, No significant family history ROS Obtained: Yes All systems reviewed & no additional complaints - Constitutional Constitutional: Reports chills, Reports fever(s) - Eyes Eyes: Reports system reviewed and no additional complaints, except as docu, Denies change in vision - Cardiovascular Cardiovascular: Reports system reviewed and no additional complaints, except as docu, Denies chest pain, Denies chest pain at rest, Denies diaphoresis, Denies dyspnea - Respiratory Respiratory: Yes system reviewed and no additional complaints, except as docu, No chest congestion, No cough - Gastrointestinal Gastrointestingal: Reports: system reviewed and no additional complaints, except as docu, abdominal pain. Denies: diarrhea, nausea, vomiting - Genitourinary Female Genitourinary: Reports system reviewed and no additional complaints, except as docu, Reports flank pain, Reports pelvic pain - Musculoskeletal Musculoskeletal: Reports system reviewed and no additional complaints, except as docu, Reports muscle cramps, Reports muscle weakness, Reports muscle aches - Integumentary/Breasts Skin/Breast: Denies rash, Denies skin pain - Neurologic Neurologic: Reports system reviewed and no additional complaints, except as docu - Hematologic/Lymphatic Henatologic/Lymphatic: Reports easy bleeding, Denies easy bruising, Reports lymphadenopathy Physical Exam - General General appearance: alert, in no apparent distress - Head Head exam: atraumatic, normocephalic, normal inspection - Eye Eye exam: Present: normal appearance - Neck Neck exam: Present: normal inspection, full ROM, trachea midline. Absent: meningismus, lymphadenopathy - Chest Chest inspection: Present: normal inspection, symmetric chest wall rise. Absent: tenderness - Respiratory Respiratory exam: Present: normal lung sounds bilaterally. Absent: respiratory distress - Cardiovascular Cardiovascular exam: Present: regular rate - Abdominal Exam Abdominal exam: Present: soft - Extremities Exam Extremities exam: Present: normal inspection, full ROM, normal capillary refill. Absent: calf tenderness - Back Exam Back exam: Present: normal inspection, tenderness, CVA tenderness (L). Absent: CVA tenderness (R) - Neurological Exam Neurological exam: Present: alert, oriented X3 - Psychiatric Psychiatric exam: Present: normal affect, normal mood - Skin Skin exam: Present: warm, dry, intact, normal color - Lymphatic Lymphatic Findings: no adenopathy
[2018-11-01 06:50] LABS: Basophils % 0.2 % (0.1-2.0); Eosinophils # 0.3 K/mm3 (0.0-0.4); Eosinophils % 2.6 % (0.1-12.0); Hematocrit 33.5 % (37.0-47.0); Lymphocytes # 1.4 K/mm3 (0.7-4.5); Lymphocytes % 14.1 % (10-50); Mean Corpuscular HGB Conc 31.4 g/dL (31.8-35.4); Mean Corpuscular Hemoglobin 23.3 pg (27.0-31.2); Mean Corpuscular Volume 74.1 fl (81-99); Mean Platelet Volume 7.1 fl (7.4-10.4); Monocytes # 0.9 K/mm3 (0.1-1.0); Monocytes % 9.3 % (1.7-9.3); Neutrophils # 7.3 K/mm3 (1.8-7.8); Neutrophils % 73.9 % (37.0-80.0); Platelet Count 394 K/mm3 (142-424); Red Blood Count 4.52 M/mm3 (4.20-5.40); Red Cell Distribution Width 16.8 % (11.5-17.5); White Blood Count 9.9 K/mm3 (4.8-10.8)
[2018-11-01 06:55] LABS: Anion Gap 14.9 mEq/L (5-15); Calcium 8.4 mg/dL (8.5-10.1); Potassium 3.9 mmoL/L (3.5-5.1)
--- NOTE | 2018-11-01 07:09 | History & Physical Report ---
*Admission Date: 10/31/18 *Chief complaint: fever, left sided back pain *History of present illness: 33 year old female presented to ER last night with left sided back pain and fever. Woke up Wednesday morning with temperature of 101 degrees and pain started later that day. Positive for blood in urine and chills. She tried taking advil with minimal relief. PMH significant for multiple kidney stones, last one occurring June 2018, [facility] [address] scan showed additional stones. CT scan was performed in ER and revealed kidney stones with a high grade obstruction on the left and possible pyelonephritis. Patient was admitted to 2nd floor medical surgical unit for pain relief, IVF, and antibiotics. [facility] History 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: Reports:: Anxiety, Asthma, Depression, Gastroesophageal Reflux Disease(GERD), Hyperlipidemia, Hypertension, Kidney Stones, Migraine Denies:: Cancer, Diabetes Mellitus Type 1, Diabetes Mellitus Type 2, MRSA *Have you ever received a pneumonia vaccine?: Yes *Have you received a flu vaccine this season?: Yes Other 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: Reports: Fibromyalgia, Other Laterality Cases: Bilateral: Myringotomy (Ear Tubes), Tonsillectomy Other Surgeries: Yes: Cholecystectomy, Hernia Repair, Hysterectomy-Total, Ureter Stent, Other Amputation: No Fractures: No - *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 Educational Level: Attended College Smoking Status: Current some day smoker Tobacco Type: smokeless tobacco # Packs/Day (cigarettes): 1 Alcohol Intake: never Substance Use Type: denies use *Occupational Status:: unemployed Housing: apartment Household Members: friend(s) *Travel in the last 8 weeks: None - Psychiatric History Expresses thoughts of harming self/others: None Suicide Plan Description: No Plan Pschychiatric History:: Reports:: Anxiety, Depression Family Hx:: Adopted Review of Systems - Constitutional Reports body ache(s), Reports chills, Reports fever(s) - *Cardiovascular Denies chest pain - *Respiratory Denies chest congestion, Denies cough, Denies shortness of breath - *Gastrointestinal Denies abdominal pain, Denies nausea, Denies vomiting - *Genitourinary Reports blood in urine, Denies painful urination, Denies urinary incontinence - *Musculoskeletal Reports back pain Meds Home Medications Medication Instructions Recorded Confirmed Type buspirone 30 mg tablet 30 mg PO TIDP PRN tab 10/21/17 10/31/18 History hydrochlorothiazide 25 mg tablet 25 mg PO DAILY 10/21/17 10/31/18 History paroxetine 40 mg tablet 60 mg PO DAILY 10/21/17 10/31/18 History Gabapentin [Gabapentin 300mg Cap] 800 mg PO TID 12/06/17 10/31/18 History Albuterol Sulfate [Albuterol HFA 2 puffs IH Q4-6H PRN 12/20/17 10/31/18 History Inhaler] raNITIdine HCl [Ranitidine HCl] 150 mg PO HSP PRN 12/20/17 10/31/18 History Promethazine HCl [Phenergan 25mg 25 mg PO QIDP PRN #10 tab 01/19/18 10/31/18 Rx tab] ibuprofen 800 mg tablet 800 mg PO .1Q6H PRN #30 tab 02/24/18 10/31/18 Rx Tizanidine HCl [Zanaflex] 6 mg PO TID 03/15/18 10/31/18 History Promethazine HCl [Phenergan 25mg 25 edd PO Q4HP PRN #10 edd 09/15/18 10/31/18 Rx Tablet Take Home Pack (10)] hydrOXYzine pamoate [Hydroxyzine 50 mg PO TID 10/31/18 10/31/18 History Pamoate] Allergies Allergy/AdvReac Type Severity Reaction Status Date / Time Penicillins Allergy Severe Hives Verified 06/03/18 04:32 gatifloxacin [From TEQUIN] Allergy Mild Verified 06/03/18 04:32 ketorolac [From TORADOL] Allergy Mild Verified 06/03/18 04:32 aztreonam [AZTREONAM] Allergy Unknown NA-NAUSEA/V Verified 06/03/18 04:32 OMITING cefaclor [CEFACLOR] Allergy Unknown Verified 06/03/18 04:32 codeine [CODEINE] Allergy Unknown BLEEDING Verified 06/03/18 04:32 OF EYES AND NOSE doxycycline [DOXYCYCLINE] Allergy Unknown Verified 06/03/18 04:32 levofloxacin [From LEVAQUIN] Allergy Unknown Verified 06/03/18 04:32 midazolam [From VERSED] Allergy Unknown Verified 06/03/18 04:32 ondansetron Allergy Unknown Verified 06/03/18 04:32 [From ZOFRAN ( HYDROCHLORIDE)] sulfamethoxazole Allergy Unknown Verified 06/03/18 04:32 [From BACTRIM] trimethoprim [From BACTRIM] Allergy Unknown Verified 06/03/18 04:32 tramadol Allergy Verified 06/03/18 04:32 Exam Vital signs and Labs for Last 24 Hours: Temp Pulse Resp BP Pulse Ox 97.4 F L 67 18 90/46 L 100 11/01/18 04:06 11/01/18 04:06 11/01/18 04:06 11/01/18 04:06 11/01/18 04:06 Laboratory Results - last 24 hr 10/31/18 15:40: Urine Color Yellow, Urine Appearance Clear, Urine pH 6.5, Ur Specific [place] 1.010, Urine Protein Negative, Urine Glucose (UA) Negative, Urine Ketones Negative, Urine Blood 1+, Urine Nitrate Negative, Urine Bilirubin Negative, Urine Urobilinogen 0.2, Ur Leukocyte Esterase 3+ A, Urine RBC Occasional, Urine WBC 20-50, Ur Squamous Epith Cells 3-5, Urine Bacteria Trace 10/31/18 17:35: WBC 14.7 H, RBC 5.30, Hgb 12.4, Hct 38.6, MCV 72.7 L, MCH 23.3 L , MCHC 32.0, RDW 16.6, Plt Count 405, MPV 6.7 L, Neut % (Auto) 84.4 H, Lymph % (Auto) 8.1 L, [place] % (Auto) 5.4, Eos % (Auto) 2.0, Baso % (Auto) 0.1, Neut # (Auto) 12.4 H, Lymph # (Auto) 1.2, [place] # (Auto) 0.8, Eos # (Auto) 0.3, Baso # (Auto) 0.0 10/31/18 17:35: Sodium 139, Potassium 3.9, Chloride 104, Carbon Dioxide 25, Anion Gap 13.9, BUN 14, Creatinine 1.20 H, Estimated Creat Clear 100, Estimated GFR 52 L, Est GFR ( Amer) 63, Glucose 99, Calcium 8.8, Total Bilirubin 0.6, AST 11 L, ALT 24, Alkaline Phosphatase 91, Total Protein 7.9, Albumin 3.1 L , Globulin 4.8 H, Albumin/Globulin Ratio 0.6 L, Amylase 29, Lipase 206 11/01/18 06:08: WBC 9.9 D, RBC 4.52, Hct 33.5 L, MCV 74.1 L, MCH 23.3 L, MCHC 31.4 L, RDW 16.8, Plt Count 394, MPV 7.1 L, Neut % (Auto) 73.9, Lymph % (Auto) 14.1, [place] % (Auto) 9.3, Eos % (Auto) 2.6, Baso % (Auto) 0.2, Neut # (Auto) 7.3, Lymph # (Auto) 1.4, [place] # (Auto) 0.9, Eos # (Auto) 0.3, Baso # (Auto) 0.0 I & O for Last 24 hours: Intake & Output 10/29/18 10/30/18 10/31/18 11/01/18 23:59 23:59 23:59 23:59 Intake Total 820 / 820 Balance 820 / 820 Weight 194 lb 9 oz - Constitutional no acute distress - *Routine HEENT Exam Head: Present: normocephalic, atraumatic - *Routine Neck Exam Present: supple - *Routine Respiratory Exam Present: CTA bilaterally. Absent: accessory muscle use - *Routine Cardiovascular Exam Present: RRR, Normal S1, Normal S2. Absent: murmur, irregular rhythm - *Routine Abdominal Exam Present: soft, normoactive bowel sounds. Absent: tenderness, distended - *Routine Extremities Exam Absent: cyanosis, edema - Routine Back/Spine/Pelvis Exam Back/Spine: Present: CVA tenderness - *Routine Neurological Exam Present: alert, oriented X3 - Routine Psychiatric Exam Present: normal affect Assessment and Plan - Assessment and plan all Dx Assessment and Plan for all problems:: Continue IVF, pain relief, Dr Zaragoza to see patient today for stent placement.
[2018-11-01 07:13] LABS: Hemoglobin 10.5 g/dL (12.2-16.2)
--- NOTE | 2018-11-01 07:19 | Pharmacy Consult Notes ---
[facility] Pharmacy VTE Monitoring - Patient Demographics Admission date: 10/31/18 Report Date: 11/01/18 Time: 07:19 Allergies/Adverse Reactions: Patient Allergies Penicillins Allergy (Severe, Verified 06/03/18 04:32) Hives gatifloxacin [From TEQUIN] Allergy (Mild, Verified 06/03/18 04:32) ketorolac [From TORADOL] Allergy (Mild, Verified 06/03/18 04:32) aztreonam [AZTREONAM] Allergy (Unknown, Verified 06/03/18 04:32) NA-NAUSEA/VOMITING cefaclor [CEFACLOR] Allergy (Unknown, Verified 06/03/18 04:32) codeine [CODEINE] Allergy (Unknown, Verified 06/03/18 04:32) BLEEDING OF EYES AND NOSE doxycycline [DOXYCYCLINE] Allergy (Unknown, Verified 06/03/18 04:32) levofloxacin [From LEVAQUIN] Allergy (Unknown, Verified 06/03/18 04:32) midazolam [From VERSED] Allergy (Unknown, Verified 06/03/18 04:32) ondansetron [From ZOFRAN ( HYDROCHLORIDE)] Allergy (Unknown, Verified 06/03/18 04:32) sulfamethoxazole [From BACTRIM] Allergy (Unknown, Verified 06/03/18 04:32) trimethoprim [From BACTRIM] Allergy (Unknown, Verified 06/03/18 04:32) tramadol Allergy (Verified 06/03/18 04:32) Height: 1.57 m Weight: 88.252 kg Patient Problems: Current Active Problems Urinary tract infection (Acute) Hydronephrosis with urinary obstruction due to ureteral calculus (Acute) - VTE Risk Labs: VTE Related Lab Results Hgb 10.5 g/dL (12.2-16.2) L D 11/01/18 06:08 Hct 33.5 % (37.0-47.0) L 11/01/18 06:08 Plt Count 394 K/mm3 (142-424) 11/01/18 06:08 BUN 19 mg/dL (7-18) H D 11/01/18 06:08 Creatinine 1.83 mg/dL (0.55-1.02) H D 11/01/18 06:08 Estimated Creat Clear 61 mL/min (50-200) 02/19/19 06:08 Was VTE Risk Assessment Performed: Yes VTE Risk Level: Low Risk - Prophylaxis VTE Prophylaxis Ordered?: Yes Types of VTE Prophylaxis: TEDS Knee High Location of Applied Device: Bilateral Lower Extremeties - VTE Diagnosis Confirmed Treatment or plan recommended: Continue Current Treatment
--- NOTE | 2018-11-01 15:51 | Progress Note ---
[facility] Anesthesia Checklist - Patient Identification Patient Identification: Arm Band, Verbal (Name & ) - Structural Data Admitted From: Home Planned Operative Procedure/s: cysto Consent for Planned Operative Procedure(s) Verified: Yes Verified Documents: History and Physical - NPO Status Verified Time NPO: 00:00 - Additional verifications Patient : No Anesthesia Reactions: No Hx Blood Transfusions: No Blood Transfusion Reaction: No Cephalosporin Allergy: No Previous Colonoscopy: No - Cardiovascular Assessment Heart Sounds: S1 & S2 Pulse Strength: Baseline Pulse Rhythm: Regular Peripheral Edema: No - Airway Assessment C-Spine Mobility Assessed: Yes TMJ Mobility Assessed: Yes Dentition: Good Dentition - Neurological Assessment Level of Consciousness: Awake, Alert, Appropriate Hx Seizures: No Numbness or tingling in extremities: No - Anesthesia Plan Anesthesia Risk discussed: No Anesthesia Plan: Verified ASA Class: III Anesthesia Type: General [facility] History I have reviewed the patient's past medical history: Yes 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: Reports:: Anxiety, Asthma, Depression, Gastroesophageal Reflux Disease(GERD), Hyperlipidemia, Hypertension, Kidney Stones, Migraine Denies:: Cancer, Diabetes Mellitus Type 1, Diabetes Mellitus Type 2, MRSA *Have you ever received a pneumonia vaccine?: Yes *Have you received a flu vaccine this season?: Yes Other 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: Reports: Fibromyalgia, Other Laterality Cases: Bilateral: Myringotomy (Ear Tubes), Tonsillectomy Other Surgeries: Yes: Cholecystectomy, Hernia Repair, Hysterectomy-Total, Ureter Stent, Other Amputation: No Fractures: No - *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 Educational Level: Attended College Smoking Status: Current some day smoker Tobacco Type: smokeless tobacco # Packs/Day (cigarettes): 1 Alcohol Intake: never Substance Use Type: denies use *Occupational Status:: unemployed Housing: apartment Household Members: friend(s) *Travel in the last 8 weeks: None - Psychiatric History Expresses thoughts of harming self/others: None Suicide Plan Description: No Plan Pschychiatric History:: Reports:: Anxiety, Depression Family Hx:: Adopted
--- NOTE | 2018-11-01 15:52 | Progress Note ---
[facility] Anesthesia Record Part I Intake, IV Amount: 500 Estimated blood loss (mL): 10 Urine output (mL): 50 Blood Products used (#): none Blood Pressure: 95/53 SaO2: 97 Pulse Rate: 77 Respiratory Rate: 18 Temperature: 97.2 F Patient is:: Nasal O2, Stable Stable to PACU at:: 15:45
--- NOTE | 2018-11-01 15:53 | Progress Note ---
[facility] Anesthesia Record Part II Discharge Time: 16:15 Destination: Medical Surgical Department PACU nurse assessment reviewed?: Yes Patient Condition:: Good Anesthesia Complications:: None Swallowing reflex intact?: Yes Cyanosis?: No
--- NOTE | 2018-11-01 17:08 | Consult Report ---
*Admission Date: 10/31/18 *Chief complaint: Left ureteral stone with urinary infection *History of present illness: Patient was admitted last evening after presenting to the emergency room with left flank pain. She was found to have a 5 mm stone proximal left ureter. She also had a white count of 14,000 and a urinary specimen suggestive of urinary infection. Long history of stones several years since I saw her last. She has remained hemodynamically stable other than mild hypotension. She has not had tachycardia and has remained afebrile. Her white count this morning actually is normal. Did discuss cystoscopy and left ureteral stent placement to ensure decompression of her left collecting system. We will anticipate treating her stone at a later time. Exam she is somnolent but arousable and appropriate. She has moderate left CVA tenderness to palpation. Pression left proximal ureteral stone with presumed pyelonephritis. Plan as above. [facility] History 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: Reports:: Anxiety, Asthma, Depression, Gastroesophageal Reflux Disease(GERD), Hyperlipidemia, Hypertension, Kidney Stones, Migraine Denies:: Cancer, Diabetes Mellitus Type 1, Diabetes Mellitus Type 2, MRSA, Seizures *Have you ever received a pneumonia vaccine?: Yes *Have you received a flu vaccine this season?: Yes Other 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: Reports: Fibromyalgia, Other. Denies: Blood Transfusion Reaction Laterality Cases: Bilateral: Myringotomy (Ear Tubes), Tonsillectomy Other Surgeries: Yes: Cholecystectomy, Hernia Repair, Hysterectomy-Total, Ureter Stent, Other Amputation: No Fractures: No - *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 Educational Level: Attended College Smoking Status: Current some day smoker Tobacco Type: smokeless tobacco # Packs/Day (cigarettes): 1 Alcohol Intake: never Substance Use Type: denies use *Occupational Status:: unemployed Housing: apartment Household Members: friend(s) *Travel in the last 8 weeks: None - Psychiatric History Expresses thoughts of harming self/others: None Suicide Plan Description: No Plan Pschychiatric History:: Reports:: Anxiety, Depression Family Hx:: Adopted Meds Home Medications Medication Instructions Recorded Confirmed Type buspirone 30 mg tablet 30 mg PO TIDP PRN tab 10/21/17 10/31/18 History hydrochlorothiazide 25 mg tablet 25 mg PO DAILY 10/21/17 10/31/18 History paroxetine 40 mg tablet 60 mg PO DAILY 10/21/17 10/31/18 History Albuterol Sulfate [Albuterol HFA 2 puffs IH Q4-6H PRN 12/20/17 10/31/18 History Inhaler] raNITIdine HCl [Ranitidine HCl] 150 mg PO HSP PRN 12/20/17 10/31/18 History Tizanidine HCl [Zanaflex] 6 mg PO TIDP PRN 03/15/18 11/01/18 History hydrOXYzine pamoate [Hydroxyzine 50 mg PO TID 10/31/18 10/31/18 History Pamoate] Ibuprofen [Ibuprofen 800mg 800 mg PO TID 11/01/18 11/01/18 History Tablet] Allergies Allergy/AdvReac Type Severity Reaction Status Date / Time Penicillins Allergy Severe Hives Verified 06/03/18 04:32 gatifloxacin [From TEQUIN] Allergy Mild Verified 06/03/18 04:32 ketorolac [From TORADOL] Allergy Mild Verified 06/03/18 04:32 aztreonam [AZTREONAM] Allergy Unknown NA-NAUSEA/V Verified 06/03/18 04:32 OMITING cefaclor [CEFACLOR] Allergy Unknown Verified 06/03/18 04:32 codeine [CODEINE] Allergy Unknown BLEEDING Verified 06/03/18 04:32 OF EYES AND NOSE doxycycline [DOXYCYCLINE] Allergy Unknown Verified 06/03/18 04:32 levofloxacin [From LEVAQUIN] Allergy Unknown Verified 06/03/18 04:32 midazolam [From VERSED] Allergy Unknown Verified 06/03/18 04:32 ondansetron Allergy Unknown Verified 06/03/18 04:32 [From ZOFRAN ( HYDROCHLORIDE)] sulfamethoxazole Allergy Unknown Verified 06/03/18 04:32 [From BACTRIM] trimethoprim [From BACTRIM] Allergy Unknown Verified 06/03/18 04:32 tramadol Allergy Verified 06/03/18 04:32 Exam Vital signs and Labs for Last 24 Hours: Temp Pulse Resp BP Pulse Ox 97.4 F L 78 16 106/57 L 96 11/01/18 16:50 11/01/18 16:50 11/01/18 16:50 11/01/18 16:50 11/01/18 16:50 Laboratory Results - last 24 hr 10/31/18 17:35: WBC 14.7 H, RBC 5.30, Hgb 12.4, Hct 38.6, MCV 72.7 L, MCH 23.3 L , MCHC 32.0, RDW 16.6, Plt Count 405, MPV 6.7 L, Neut % (Auto) 84.4 H, Lymph % (Auto) 8.1 L, [place] % (Auto) 5.4, Eos % (Auto) 2.0, Baso % (Auto) 0.1, Neut # (Auto) 12.4 H, Lymph # (Auto) 1.2, [place] # (Auto) 0.8, Eos # (Auto) 0.3, Baso # (Auto) 0.0 10/31/18 17:35: Sodium 139, Potassium 3.9, Chloride 104, Carbon Dioxide 25, Anion Gap 13.9, BUN 14, Creatinine 1.20 H, Estimated Creat Clear 100, Estimated GFR 52 L, Est GFR ( Amer) 63, Glucose 99, Calcium 8.8, Total Bilirubin 0.6, AST 11 L, ALT 24, Alkaline Phosphatase 91, Total Protein 7.9, Albumin 3.1 L , Globulin 4.8 H, Albumin/Globulin Ratio 0.6 L, Amylase 29, Lipase 206 11/01/18 06:08: WBC 9.9 D, RBC 4.52, Hgb 10.5 L D, Hct 33.5 L, MCV 74.1 L, MCH 23.3 L, MCHC 31.4 L, RDW 16.8, Plt Count 394, MPV 7.1 L, Neut % (Auto) 73.9, Lymph % (Auto) 14.1, [place] % (Auto) 9.3, Eos % (Auto) 2.6, Baso % (Auto) 0.2, Neut # (Auto) 7.3, Lymph # (Auto) 1.4, [place] # (Auto) 0.9, Eos # (Auto) 0.3, Baso # (Auto) 0.0 11/01/18 06:08: Sodium 139, Potassium 3.9, Chloride 104, Carbon Dioxide 24, Anion Gap 14.9, BUN 19 H D, Creatinine 1.83 H D, Estimated Creat Clear 61, Estimated GFR 32 L, Est GFR ( Amer) 38 L D, Glucose 119 H D, Calcium 8.4 L I & O for Last 24 hours: Intake & Output 10/29/18 10/30/18 10/31/18 11/01/18 23:59 23:59 23:59 23:59 Intake Total 1320 / 1320 Output Total 100 / 100 Balance 1220 / 1220 Weight 88.252 kg 88.252 kg Microbiology Reports for the Last 24 Hours: Microbiology 10/31/18 15:40 Urine,Clean Catch Urine Culture - Preliminary Results - Labs 11/01/18 06:08 11/01/18 06:08 Laboratory Results - last 24 hr 10/31/18 17:35: WBC 14.7 H, RBC 5.30, Hgb 12.4, Hct 38.6, MCV 72.7 L, MCH 23.3 L , MCHC 32.0, RDW 16.6, Plt Count 405, MPV 6.7 L, Neut % (Auto) 84.4 H, Lymph % (Auto) 8.1 L, [place] % (Auto) 5.4, Eos % (Auto) 2.0, Baso % (Auto) 0.1, Neut # (Auto) 12.4 H, Lymph # (Auto) 1.2, [place] # (Auto) 0.8, Eos # (Auto) 0.3, Baso # (Auto) 0.0 10/31/18 17:35: Sodium 139, Potassium 3.9, Chloride 104, Carbon Dioxide 25, Anion Gap 13.9, BUN 14, Creatinine 1.20 H, Estimated Creat Clear 100, Estimated GFR 52 L, Est GFR ( Amer) 63, Glucose 99, Calcium 8.8, Total Bilirubin 0.6, AST 11 L, ALT 24, Alkaline Phosphatase 91, Total Protein 7.9, Albumin 3.1 L , Globulin 4.8 H, Albumin/Globulin Ratio 0.6 L, Amylase 29, Lipase 206 11/01/18 06:08: WBC 9.9 D, RBC 4.52, Hgb 10.5 L D, Hct 33.5 L, MCV 74.1 L, MCH 23.3 L, MCHC 31.4 L, RDW 16.8, Plt Count 394, MPV 7.1 L, Neut % (Auto) 73.9, Lymph % (Auto) 14.1, [place] % (Auto) 9.3, Eos % (Auto) 2.6, Baso % (Auto) 0.2, Neut # (Auto) 7.3, Lymph # (Auto) 1.4, [place] # (Auto) 0.9, Eos # (Auto) 0.3, Baso # (Auto) 0.0 11/01/18 06:08: Sodium 139, Potassium 3.9, Chloride 104, Carbon Dioxide 24, Anion Gap 14.9, BUN 19 H D, Creatinine 1.83 H D, Estimated Creat Clear 61, Estimated GFR 32 L, Est GFR ( Amer) 38 L D, Glucose 119 H D, Calcium 8.4 L
--- NOTE | 2018-11-01 17:11 | Operative Note ---
Date of procedure: 11/01/18 Pre-op Diagnosis:: Left proximal ureteral stone with urinary infection Post-op Diagnosis:: same Procedure performed:: Cystoscopy with left ureteral stent placement Surgeon:: Hardeep Zaragoza MD [employer] SPECIALIST:: Fantasma Chen Anesthesia: LMA Estimated blood loss (mL): 0 Clinical Note:: Patient was admitted last evening with a 5 mm left proximal ureteral stone and white count of 14,000. Her urinalysis is suggested infection. Brought to the operating room for left ureteral stent placement in order to decompress her left collecting system. Operative findings:: As above Operative note:: After satisfactory general anesthesia she was placed in the lithotomy position. The genital area was prepped and draped in standard fashion. 22 [place] cystoscopy sheath was introduced. Bladder was unremarkable. The stone was only visualized. 035 zip wire was advanced up to the stone and manipulated proximally. A 5 [place] open-ended ureteral catheter was then advanced over the wire and into the renal pelvis. Urine specimen was obtained from the renal pelvis and will be sent for culture and sensitivity. The ureteral catheter was then removed and stent placed over the wire easily. A 6 [place] by 26 cm stent was placed. There was a good coil in the kidney and good coil in the bladder. String was removed. A 16 [place] urethral catheter was placed and will be left indwelling for 24 hours. She remained hemodynamic stable Condition: stable Disposition: PACU Specimens:: Urine culture from left renal pelvis Complications:: None
--- NOTE | 2018-11-02 07:24 | Progress Note ---
Internal Medicine - PN: Subj *Date: 11/02/18 *Time: 07:19 Interval history: Patient reports continued left sided stabbing pain that is somewhat relieved with pain medication. She is also inquiring about when urinary catheter can be discontinued. There have been 3-4 bouts of incontinent diarrhea throughout the night, diarrhea panel is not back yet. Positive for cramping and nausea. Denies vomiting, fever, chills. Has tolerated clifford pudding, soda, and isaiah crackers. Exam Vital signs and Labs for Last 24 Hours: Temp Pulse Resp BP Pulse Ox 97.8 F 69 16 104/65 L 94 L 11/02/18 04:00 11/02/18 04:00 11/02/18 04:00 11/02/18 04:00 11/02/18 04:00 Laboratory Results - last 24 hr 10/31/18 15:40: Urine Color Yellow, Urine Appearance Clear, Urine pH 6.5, Ur Specific [place] 1.010, Urine Protein Negative, Urine Glucose (UA) Negative, Urine Ketones Negative, Urine Blood 1+, Urine Nitrate Negative, Urine Bilirubin Negative, Urine Urobilinogen 0.2, Ur Leukocyte Esterase 3+ A, Urine RBC Occasional, Urine WBC 20-50, Ur Squamous Epith Cells 3-5, Urine Bacteria Trace I & O for Last 24 hours: Intake & Output 10/30/18 10/31/18 11/01/18 11/02/18 23:59 23:59 23:59 23:59 Intake Total 1560 / 1560 3197 / 3197 Output Total 700 / 700 1300 / 1300 Balance 860 / 860 1897 / 1897 Weight 194 lb 9 oz 194 lb 9 oz Microbiology Reports for the Last 24 Hours: Microbiology 10/31/18 15:40 Urine,Clean Catch Urine Culture - Preliminary Gram Negative Rods - Constitutional no acute distress, obese - *Routine Respiratory Exam Present: CTA bilaterally. Absent: accessory muscle use - *Routine Cardiovascular Exam Present: RRR, Normal S1, Normal S2. Absent: murmur, irregular rhythm - *Routine Abdominal Exam Present: soft. Absent: distended Comments: hyperactive BS present - *Routine Extremities Exam Absent: cyanosis, edema - *Routine Skin Exam Present: intact. Absent: cyanosis, dry, pallor - *Routine Neurological Exam Present: alert, oriented X3 - Routine Psychiatric Exam Present: normal affect Assessment and Plan - Assessment and plan all Dx Assessment and Plan for all problems:: Await results of diarrhea panel, OK to continue current diet. Urinary catheter to remain in place for now until culture results come back please. Will follow up with later this afternoon, patient may go home pending today.
--- NOTE | 2018-11-02 08:22 | Discharge Summary ---
General - General Admission date:: 10/31/18 Discharge date: 11/02/18 HPI HPI: 33 year old female presented to ER last night with left sided back pain and fever. Woke up Wednesday morning with temperature of 101 degrees and pain started later that day. Positive for blood in urine and chills. She tried taking advil with minimal relief. PMH significant for multiple kidney stones, last one occurring June 2018, [facility] [address] scan showed additional stones. CT scan was performed in ER and revealed kidney stones with a high grade obstruction on the left and possible pyelonephritis. Patient was admitted to 2nd floor medical surgical unit for pain relief, IVF, and antibiotics. Hospital Course Hospital Course: Patient was admitted to 2nd floor medical surgical unit for further evaluation and intervention of kidney stone. Fluids and antibiotics were given intravenously and pain was addressed with medications. Patient reported significant pain despite witnessed adequate rest. Dr Hardeep Saleh placed stent , sent urine from left renal pelvis for culture, and urinary catheter was anchored overnight. She developed some incontinent episodes of diarrhea during the night, diarrhea panel revealed enteropathogenic e.coli. Patient will be started on daily probiotic for this. I've sent prescription to preferred pharmacy. She is to follow up with Dr Saleh in one week and PCP as listed. She may go home later today after IV antibiotic is administered. Objective Vital signs: Temp Pulse Resp BP Pulse Ox 98.3 F 72 17 160/90 H 97 11/02/18 08:00 11/02/18 08:00 11/02/18 08:00 11/02/18 08:00 11/02/18 08:00 no acute distress, obese - *Routine HEENT Exam Head: Present: normocephalic - *Routine Respiratory Exam Present: CTA bilaterally. Absent: accessory muscle use - *Routine Cardiovascular Exam Present: RRR, Normal S1, Normal S2. Absent: murmur - *Routine Abdominal Exam Present: soft. Absent: tenderness, distended Comments: hyperactive bowel sounds - *Routine Extremities Exam Absent: cyanosis, edema - *Routine Skin Exam Present: intact. Absent: dry, pallor - *Routine Neurological Exam Present: alert, oriented X3 - Routine Psychiatric Exam Present: normal affect Results Labs on day of discharge: Labs from last 24 hours 11/02/18 10/31/18 04:50 15:40 Urine Color Yellow Urine Appearance Clear Urine pH 6.5 Ur Specific [place] 1.010 Urine Protein Negative Urine Glucose (UA) Negative Urine Ketones Negative Urine Blood 1+ Urine Nitrate Negative Urine Bilirubin Negative Urine Urobilinogen 0.2 Ur Leukocyte Esterase 3+ A Urine RBC Occasional Urine WBC 20-50 Ur Squamous Epith Cells 3-5 Urine Bacteria Trace Stl Aeromonas (PCR) Not detected Stl C. cayetanensis PCR Not detected Stool Rotavirus (PCR) Not detected Stl Adenov F 40/41 PCR Not detected Stool Astrovirus (PCR) Not detected Stool Campylobacter PCR Not detected Stl C.difficile Tox PCR Not detected Stool Cryptosporidium PCR Not detected Stl E.coli Shiga Tox PCR Not detected Stool E coli O157 PCR Not detected Stl Enterotoxigenic E PCR Not detected Stool EPEC (PCR) Detected A Stool EAEC (PCR) Not detected Stl E. histolytica PCR Not detected Stool Giardia Lamblia PCR Not detected Stool Salmonella PCR Not detected Stool Sapovirus (PCR) Not detected Stl P. shigelloides PCR Not detected Stl Shigella/EIEC PCR Not detected St Y.enterocolitica PCR Not detected Stool Vibrio (PCR) Not detected Stl Vibrio cholerae PCR Not detected Stl Norovirus GI/GII PCR Not detected Preliminary micro results at discharge 10/31/18 15:40 Urine Culture - Preliminary Urine,Clean Catch Gram Negative Rods DS: Diagnosis - Discharge Diagnosis (1) Diarrhea Status: Acute (2) Hydronephrosis with urinary obstruction due to ureteral calculus Status: Acute (3) Urinary tract infection Status: Acute Discharge Plan - Patient Discharge Instructions ACTIVITY: Continue current activity (May go home after 1600 IV antibiotic is administered.) DIET: continue same diet Additional Instructions: need to take probiotic daily for the next month Patient Instructions: Hydronephrosis -- Adult, DI for Urinary Tract Infection (UTI) - Follow up Plan Follow up with: Hardeep Zaragoza MD [Staff Physician] - 1 week Jojo Whyte APRN [Primary Care Provider] - 11/08/18 9:00 am Disposition: Home, Self-Usp Medications: Home Medications Medication Instructions Recorded Confirmed Type buspirone 30 mg tablet 30 mg PO TIDP PRN tab 10/21/17 10/31/18 History hydrochlorothiazide 25 mg tablet 25 mg PO DAILY 10/21/17 10/31/18 History paroxetine 40 mg tablet 60 mg PO DAILY 10/21/17 10/31/18 History Albuterol Sulfate [Albuterol HFA 2 puffs IH Q4-6H PRN 12/20/17 10/31/18 History Inhaler] raNITIdine HCl [Ranitidine HCl] 150 mg PO HSP PRN 12/20/17 10/31/18 History Tizanidine HCl [Zanaflex] 6 mg PO TIDP PRN 03/15/18 11/01/18 History hydrOXYzine pamoate [Hydroxyzine 50 mg PO TID 10/31/18 10/31/18 History Pamoate] Ibuprofen [Ibuprofen 800mg 800 mg PO TID 11/01/18 11/01/18 History Tablet] Lactobacillus Acidophilus 1 each PO DAILY 30 Days #30 capsule 11/02/18 Rx [Digestive Probiotic] Prescriptions/Medication Reconciliation: New Lactobacillus Acidophilus [Digestive Probiotic] 1 each PO DAILY 30 Days #30 capsule Continue hydrochlorothiazide 25 mg tablet 25 mg PO DAILY buspirone 30 mg tablet 30 mg PO TIDP PRN tab PRN Reason: Anxiety paroxetine 40 mg tablet 60 mg PO DAILY Albuterol Sulfate [Albuterol HFA Inhaler] 2 puffs IH Q4-6H PRN PRN Reason: Shortness Of Breath Or Wheezing raNITIdine HCl [Ranitidine HCl] 150 mg PO HSP PRN PRN Reason: Acid Reflux Tizanidine HCl [Zanaflex] 6 mg PO TIDP PRN PRN Reason: Muscle Spasm hydrOXYzine pamoate [Hydroxyzine Pamoate] 50 mg PO TID Ibuprofen [Ibuprofen 800mg Tablet] 800 mg PO TID
== END 2018-11-02 16:20 | disposition home or self-care (01) ==
LOC: ER 15:27 → 2ND 15:27
PROVIDERS: ADMIT Internal Medicine Adolescent Medicine; ATTEND Family Medicine
CPT/HCPCS: 36415; 74176; 74450; 76000; 80048; 80053; 81001; 82150; 83690; 85025; 87086; 87088; 87186; 87507; 96365; 99284; C1769; C2617; G0378; J1335; J2405

== ENCOUNTER → 2018-11-17 11:03 | Outpatient (CLI) | payer MEDICAID, OTHER, SELFPAY ==
--- NOTE | 2018-11-17 11:07 | XR_ITS ---
XR KUB Ordering Physician: Orlando Acosta MD Patient Age: 33 years: Female HISTORY: ITS.REASON: kidney stone TECHNIQUE: AP supine abdomen 11/01/2018 the retrograde urethrogram and stent placement. 10/31/2018 CT abdomen COMPARISON :CT abdomen pelvis 10/31/2018. FINDINGS Left ureteral stent is in good position superior pigtail projected over the left renal pelvis and the inferior pigtail projected over the urinary bladder. There are residual calculi seen at the left kidney. Most notable calculi are seen at the lower pole calyx where there is some vague of a more proximal calcification and calculi here. A smaller punctate fragment at the midportion and upper pole left kidney also observed. Question vague low-density calculus just along the lateral margin of the ureteral stent at the L4 level, versus merely density from overlapping transverse process Right kidney. A 3 mm calculus at proximal right ureter was seen on the prior CT but not evident on plain film. Nonspecific gas pattern is been no bowel dilatation or obstruction. Mild/Moderate stool is seen throughout the colon most evident left colon, rectosigmoid. No organomegaly. ---------IMPRESSION: Left ureteral stent in place . residual faint scattered calculi left kidney noted, most evident towards lower pole.
== END ==
PROVIDERS: PCP Nurse Practitioner Family; Visit Provider Urology
DX: N20.0 Calculus of kidney (principal)
CPT/HCPCS: 74018

== ENCOUNTER 2020-05-03 18:42 | Emergency (ER) | payer OTHER, SELFPAY ==
[2020-05-03 18:43] VITALS: BP 175/100; PULSE 109; RESP 17; TEMP 36.8; O2SAT 97; BMI 43.9
--- NOTE | 2020-05-03 19:02 | CT_ITS ---
PROCEDURE: CT ABDOMEN PELVIS WO CON CLINICAL INDICATION: possible kidney stone Left-sided flank pain COMPARISON: CT CT ABDOMEN PELVIS WO CON from 12/12/2019 TECHNIQUE: Axial images obtained with sagittal and coronal reformats. All CT scans at the facility use one or more dose reduction, viz: automated exposure control, ma/kV adjustment per patient size (including targeted exams where dose is matched to indication, i.e. head), or iterative reconstruction technique. FINDINGS: LOWER THORAX: No acute finding ABDOMEN & PELVIS: The liver, spleen, adrenal glands, and pancreas have an unremarkable appearance. There is a 5 mm stone in the mid to lower pole of the right kidney. The left ureteral stent has been removed. There is edema of the left kidney with moderate hydronephrosis and stranding of the left perinephric renal. A 4 mm stone is present in the proximal left ureter and a small cluster stone is present in the lower pole of the left kidney at 9 mm. No intestinal obstruction or free air. There are scattered colonic diverticula but no evidence of diverticulitis. No evidence of appendicitis. No acute bony findings. Has been a prior hysterectomy IMPRESSION: 1. 4 mm proximal left ureteral stone with moderate to severe left hydronephrosis and stranding of the perinephric fat. Stranding of the fat has improved somewhat compared to the previous exam. The degree of hydronephrosis is not significantly changed. Left nephrolithiasis. 2. Nonobstructing right renal calculus. Dictated by: Yg Richter MD 05/04/2020 08:39 Yg Richter MD in [place] 05/04/2020 08:39
[2020-05-03 19:17] LABS: Basophils % 0.2 % (0.1-2.0); Eosinophils # 0.3 K/mm3 (0.0-0.4); Eosinophils % 2.1 % (0.1-12.0); Hematocrit 38.8 % (37.0-47.0); Hemoglobin 13.5 g/dL (12.2-16.2); Lymphocytes # 1.8 K/mm3 (0.7-4.5); Lymphocytes % 12.7 % (10-50); Mean Corpuscular HGB Conc 34.8 g/dL (31.8-35.4); Mean Corpuscular Hemoglobin 28.3 pg (27.0-31.2); Mean Corpuscular Volume 81.4 fl (81-99); Mean Platelet Volume 8.4 fl (7.4-10.4); Monocytes # 0.9 K/mm3 (0.1-1.0); Monocytes % 6.4 % (1.7-9.3); Neutrophils # 11.4 K/mm3 (1.8-7.8); Neutrophils % 78.6 % (37.0-80.0); Platelet Count 276 K/mm3 (142-424); Red Blood Count 4.77 M/mm3 (4.20-5.40); Red Cell Distribution Width 14.7 % (11.5-17.5); White Blood Count 14.5 K/mm3 (4.8-10.8)
[2020-05-03 19:22] LABS: Microscopic, Urine URINE MICROSCOPIC (MICROSCOPIC)
[2020-05-03 19:27] LABS: Appearance,Urine CLEAR (Clear); Bilirubin,Urine Negative (Negative); Blood, Urine 2+ (Negative); Color,Urine YELLOW (Yellow); Glucose,Urine (UA) Negative (Negative); Ketones,Urine Negative (Negative); Leukocyte Esterase,Urine 2+ (Negative); Nitrate,Urine Negative (Negative); Protein,Urine 1+ (Negative); Specific Gravity, Urine 1.025 (1.005-1.030); Urobilinogen,Urine 0.2 EU/dl (0.2)
[2020-05-03 19:30] VITALS: BP 175/106; PULSE 95; RESP 17; O2SAT 99
[2020-05-03 19:51] LABS: Urine Pregnancy, HCG Qual. Negative (Negative)
[2020-05-03 19:52] LABS: WBC,Urine TNTC #/hpf (0-3)
[2020-05-03 19:53] LABS: Bacteria,Urine Trace /lpf
[2020-05-03 20:21] VITALS: BP 160/95; PULSE 100; RESP 18; O2SAT 100
[2020-05-03 20:29] LABS: Chloride 113 mmol/L (98-107); Sodium 142 mmol/L (136-145)
[2020-05-03 20:32] LABS: Alanine Aminotransferase 25 U/L (12-78); Alkaline Phosphatase 77 U/L (38-126); Amylase 46 U/L (30-110); Aspartate Amino Transferase 32 U/L (14-36); Bilirubin,Total 0.7 mg/dl (0.2-1.3); Blood Urea Nitrogen 15 mg/dl (7-17); Calcium 8.9 mg/dl (8.4-10.2); Carbon Dioxide 19 mmol/L (22.0-30.0); Creatinine Clearance Estimated 52 mL/min (50-200); Estimated Glomerular Filt Rate 51 ml/min (>60); GFR (African American) 62 ML/MIN (>60); Glucose 111 mg/dl (74-100)
[2020-05-03 20:33] LABS: Albumin Level 3.5 g/dl (3.5-5.0); Albumin/Globulin Ratio 1.1 (1.1-1.8); Globulin 3.2 g/dL (1.3-3.2); Lipase 153 U/L (23-300); Total Protein,Serum 6.7 g/dl (6.3-8.2)
[2020-05-03 20:38] VITALS: BP 152/87; PULSE 99; RESP 18; O2SAT 99
--- NOTE | 2020-05-03 20:52 | HMH.EDNVD ---
ED Disposition Clinical Impression: Renal colic on left side, SIRS (systemic inflammatory response syndrome) UTI (urinary tract infection) Qualifiers: Urinary tract infection type: site unspecified Hematuria presence: without hematuria Qualified Code(s): N39.0 - Urinary tract infection, site not specified Disposition: Home, Self-Care Condition on Discharge: Good Instructions: DI for Kidney Stones Additional Instructions: fluids and call pcp and dr ramsey for follow up Prescriptions: Tamsulosin HCl [Flomax 0.4mg capsule] 0.4 mg PO HS #10 cap Transmission Status: Pending to [facility] cephALEXin [Keflex 500mg Cap] 500 mg PO TID #30 cap Transmission Status: Pending to [facility] Hydrocod/Acet 5/325 mg [[place] 5/325mg tablet] 1 tab PO Q6HP PRN #10 tab PRN Reason: Moderate To Severe Pain Prescription Printed Referrals: Jojo Whyte APRN [Primary Care Provider] - Orlando Ramsey MD [Staff Physician] - - Critical Care Critical Care Time: No Attestation: On 05/03/20, the high probability of a clinically significant, sudden or life threatening deterioration of the following system(s) required my full and direct attention, intervention and personal management. The time I documented below is in addition to time spent performing reported procedures but includes the following listed in this critical care notation. Medical Decision Making - Medical Records Medical records reviewed: Yes: I reviewed the patient's medical records. - Olu Inquiry Pt receiving controlled substance: No Vital Signs: 05/03/20 18:43 05/03/20 19:30 05/03/20 20:21 Temperature 98.2 F Temperature Source Oral Pulse Rate [Right] 109 H 95 H 100 H Respiratory Rate 17 17 18 Blood Pressure [Right Arm] 175/100 H 175/106 H 160/95 H Blood Pressure Mean [Right Arm] 125 129 116 Blood Pressure Source [Right Arm] Automatic Cuff Automatic Cuff Blood Pressure Position [Right Arm] Sitting Sitting 02 Sat by Pulse Oximetry 97 99 100 Oxygen Delivery Method Room Air Room Air 05/03/20 20:38 Temperature Temperature Source Pulse Rate [Right] 99 H Respiratory Rate 18 Blood Pressure [Right Arm] 152/87 H Blood Pressure Mean [Right Arm] 108 Blood Pressure Source [Right Arm] Blood Pressure Position [Right Arm] 02 Sat by Pulse Oximetry 99 Oxygen Delivery Method Room Air - Lab Data Lab results reviewed: Yes: I reviewed the patient's lab results. Lab Results 05/03/20 19:13: WBC 14.5 H, RBC 4.77, Hgb 13.5, Hct 38.8, MCV 81.4, MCH 28.3, MCHC 34.8, RDW 14.7, Plt Count 276, MPV 8.4, Neut % (Auto) 78.6, Lymph % (Auto) 12.7, [place] % (Auto) 6.4, Eos % (Auto) 2.1, Baso % (Auto) 0.2, Neut # (Auto) 11.4 H, Lymph # (Auto) 1.8, [place] # (Auto) 0.9, Eos # (Auto) 0.3, Baso # (Auto) 0.0 05/03/20 19:13: Sodium 142, Potassium 4.0, Chloride 113 H, Carbon Dioxide 19 L, Anion Gap 14.0, BUN 15, Creatinine 1.20 H, Estimated Creat Clear 52, Estimated GFR 51 L, Est GFR ( Amer) 62, Glucose 111 H, Calcium 8.9, Total Bilirubin 0.7, AST 32, ALT 25, Alkaline Phosphatase 77, Total Protein 6.7, Albumin 3.5, Globulin 3.2, Albumin/Globulin Ratio 1.1, Amylase 46, Lipase 153 05/03/20 19:15: Urine Color Yellow, Urine Appearance Clear, Urine pH 6.0, Ur Specific [place] 1.025, Urine Protein 1+, Urine Glucose (UA) Negative, Urine Ketones Negative, Urine Blood 2+, Urine Nitrate Negative, Urine Bilirubin Negative, Urine Urobilinogen 0.2, Ur Leukocyte Esterase 2+ A, Urine RBC 3-5, Urine WBC Tntc, Ur Squamous Epith Cells 10-20, Urine Bacteria Trace 05/03/20 19:15: Urine HCG, Qual Negative Result diagrams: 05/03/20 19:13 05/03/20 19:13 Orders (Tests/Meds): ED MEDICATIONS Generic Name Dose Route Start Last Admin Trade Name Freq PRN Reason Stop Dose Admin Ceftriaxone Sodium 1 gm/ 50 mls @ 100 mls/hr 05/03/20 21:15 Sodium Chloride IV 05/03/20 21:44 ONCE ONE Protocol Tamsulosin HCl 0.4 mg 05/04/20 21:00 Flomax 0.4mg Capsule PO 05/15
[2020-05-03 21:44] VITALS: BP 148/84; PULSE 98; RESP 14; TEMP 36.8; O2SAT 98
== END 2020-05-03 21:48 | disposition home or self-care (01) ==
PROVIDERS: Emergency Provider Emergency Medicine; PCP Nurse Practitioner Family
DX: N20.1 Calculus of ureter (principal); N39.0 Urinary tract infection, site not specified; R65.10 Systemic inflammatory response syndrome (SIRS) of non-infectious origin without acute organ dysfunction; I10 Essential (primary) hypertension; E78.5 Hyperlipidemia, unspecified; F41.8 Other specified anxiety disorders; K21.9 Gastro-esophageal reflux disease without esophagitis; Z87.442 Personal history of urinary calculi; M79.7 Fibromyalgia; G43.709 Chronic migraine without aura, not intractable, without status migrainosus; F17.290 Nicotine dependence, other tobacco product, uncomplicated; Z88.0 Allergy status to penicillin; Z88.2 Allergy status to sulfonamides; Z88.5 Allergy status to narcotic agent; Z90.49 Acquired absence of other specified parts of digestive tract; Z90.710 Acquired absence of both cervix and uterus; Z79.899 Other long term (current) drug therapy
CPT/HCPCS: 74176; 80053; 81001; 81025; 82150; 83690; 85025; 87086; 87088; 87186; 96365; 96375; 99284; J0595

== ENCOUNTER 2020-05-04 15:07 | Emergency (ER) | payer OTHER, SELFPAY ==
[2020-05-04 15:09] VITALS: BP 190/110; PULSE 118; RESP 16; TEMP 36.8; O2SAT 100; BMI 43.9
--- NOTE | 2020-05-04 15:54 | HMH.EDGENADL ---
ED Disposition Clinical Impression: Flank pain, Kidney stone Disposition: Home, Self-Care Condition on Discharge: Good Instructions: DI for Diarrhea and Traveler's Diarrhea -- Adult, DI for Nausea -- Adult Additional Instructions: You have been evaluated for flank pain, likely due to kidney stone. Please continue taking all medications that you were given yesterday. Do not take [place] if you do not have to, this likely is upsetting her stomach. Follow-up with your primary care doctor on Wednesday. Return to the emergency department if you have any new or worsening symptoms. Referrals: Jojo Whyte APRN [Primary Care Provider] - Time of Disposition: 17:57 - Critical Care Critical Care Time: No Attestation: On 05/04/20, the high probability of a clinically significant, sudden or life threatening deterioration of the following system(s) required my full and direct attention, intervention and personal management. The time I documented below is in addition to time spent performing reported procedures but includes the following listed in this critical care notation. Medical Decision Making - Medical Records Medical records reviewed: Yes: I reviewed the patient's medical records. - Olu Inquiry Pt receiving controlled substance: No Vital Signs: 05/04/20 15:09 05/04/20 18:02 05/04/20 18:16 Temperature 98.2 F 98.1 F Temperature Source Oral Pulse Rate 94 H Pulse Rate [Right] 118 H 91 H Respiratory Rate 16 17 Blood Pressure 124/87 Blood Pressure [Right Arm] 190/110 H 153/87 H Blood Pressure Mean [Right Arm] 136 109 Blood Pressure Source [Right Arm] Automatic Cuff Automatic Cuff Blood Pressure Position [Right Arm] Sitting Supine 02 Sat by Pulse Oximetry 100 95 Oxygen Delivery Method Room Air Room Air - Lab Data Lab Results 05/04/20 16:30: Sodium TNP, Potassium TNP, Chloride TNP, Carbon Dioxide TNP, Anion Gap TNP, BUN 16, Creatinine 1.10 H, Estimated Creat Clear 57, Estimated GFR 57 L, Est GFR ( Amer) 69, Glucose TNP, Calcium TNP, Total Bilirubin TNP, AST TNP, ALT TNP, Alkaline Phosphatase TNP, Total Protein TNP, Albumin 3.7, Globulin TNP, Albumin/Globulin Ratio TNP Result diagrams: 05/04/20 16:30 Orders (Tests/Meds): ED MEDICATIONS Discontinued Medications Generic Name Dose Route Start Last Admin Trade Name Silke PRN Reason Stop Dose Admin Promethazine HCl 12.5 mg 05/04/20 15:54 05/04/20 16:04 Phenergan 12.5mg Tablet PO 05/04/20 15:55 12.5 mg ONCE ONE Administration Medical Decision Narrative: In summary this is a 34-year-old female with history of nephrolithiasis presenting to the emergency department with flank pain and nausea. Patient is clinically stable on arrival. I reviewed her work-up from yesterday, including the scan of the abdomen and pelvis. Showed 4mm stone wiht slight hydronephrosis, unchanged from previous CTs. Patient given nausea medication, Phenergan, in the ER. Will obtain creatinine to assess for any worsening renal dysfunction. Creatinine 1.1 today, improved from yesterday. On reassessment patient was resting comfortably in the bed. Pain improved. No longer nauseous. She was able to tolerate oral intake. Counseled that nausea could be due to [place]. Recommended she take Tylenol and ibuprofen at home. Stable for discharge. General Adult HPI - General Chief complaint: Nausea/Vomiting/Diarrhea Stated complaint: kidney pain, kidney stone Time Seen by Provider: 05/04/20 15:34 Mode of Arrival: Ambulatory Source of Information: Patient Limitations: No Limitations Description of Symptoms (Recalled from ER Triage Doc. by RN): Pt advises that she was seen in the ED yesterday for a kidney stone and about a hour after she left yesterday she started vomiting. Advises the medicine she was prescribed did not help - History of Present Illness HPI narrative: 34-year-old female with history of kidney stones presenting to the emergency dep
--- NOTE | 2020-05-04 16:04 | PC.NURSE ---
called lab adn asked for blood draw
[2020-05-04 16:52] LABS: Albumin Level 3.7 g/dl (3.5-5.0); Blood Urea Nitrogen 16 mg/dl (7-17); Creatinine Clearance Estimated 57 mL/min (50-200); Estimated Glomerular Filt Rate 57 ml/min (>60); GFR (African American) 69 ML/MIN (>60)
--- NOTE | 2020-05-04 17:48 | PC.NURSE ---
PT has not vomited while here at ED
[2020-05-04 18:02] VITALS: BP 153/87; PULSE 91; O2SAT 95
[2020-05-04 18:16] VITALS: BP 124/87; PULSE 94; RESP 17; TEMP 36.7; O2SAT 100
== END 2020-05-04 18:16 | disposition home or self-care (01) ==
PROVIDERS: Emergency Provider Emergency Medicine; PCP Nurse Practitioner Family
DX: N20.1 Calculus of ureter (principal); F41.8 Other specified anxiety disorders; K21.9 Gastro-esophageal reflux disease without esophagitis; E78.5 Hyperlipidemia, unspecified; I10 Essential (primary) hypertension; G43.709 Chronic migraine without aura, not intractable, without status migrainosus; M79.7 Fibromyalgia; Z79.899 Other long term (current) drug therapy; F17.290 Nicotine dependence, other tobacco product, uncomplicated; Z87.442 Personal history of urinary calculi; Z88.0 Allergy status to penicillin; Z88.2 Allergy status to sulfonamides; Z88.5 Allergy status to narcotic agent; Z90.49 Acquired absence of other specified parts of digestive tract; Z90.710 Acquired absence of both cervix and uterus
CPT/HCPCS: 80053; 99283

== ENCOUNTER 2020-05-05 13:27 | Emergency (ER) | payer OTHER, SELFPAY ==
[2020-05-05 13:36] VITALS: BP 190/80; PULSE 70; RESP 16; TEMP 36.7; O2SAT 97; BMI 32.3
--- NOTE | 2020-05-05 14:00 | HMH.EDGENADL ---
ED Disposition Clinical Impression: Left ureteral calculus Disposition: Xfer Short-Term Hosp Condition on Discharge: Fair Referrals: Jojo Whyte APRN [Primary Care Provider] - - Critical Care Critical Care Time: No Attestation: On 05/05/20, the high probability of a clinically significant, sudden or life threatening deterioration of the following system(s) required my full and direct attention, intervention and personal management. The time I documented below is in addition to time spent performing reported procedures but includes the following listed in this critical care notation. Medical Decision Making - Medical Records Medical records reviewed: Yes: I reviewed the patient's medical records. - Olu Inquiry Pt receiving controlled substance: Yes Olu was queried for this patient: Yes Reference #:: [id number] Risks and benefits of using a controlled substance: were not discussed with pt by me Comment: 12 rxs. all opiates. Vital Signs: 05/05/20 13:36 05/05/20 15:51 Temperature 98.0 F Temperature Source Oral Pulse Rate [Right] 70 78 Respiratory Rate 16 16 Blood Pressure [Right Arm] 190/80 H 161/90 H Blood Pressure Mean [Right Arm] 116 113 Blood Pressure Source [Right Arm] Automatic Cuff Automatic Cuff Blood Pressure Position [Right Arm] Sitting Sitting 02 Sat by Pulse Oximetry 97 98 Oxygen Delivery Method Room Air Room Air - Lab Data Lab results reviewed: Yes: I reviewed the patient's lab results. Lab Results 05/05/20 14:30: WBC 12.7 H, RBC 4.66, Hgb 13.4, Hct 38.9, MCV 83.3, MCH 28.7, MCHC 34.5, RDW 14.6, Plt Count 360 D, MPV 8.4, Neut % (Auto) 76.6, Lymph % (Auto) 14.6, [place] % (Auto) 5.9, Eos % (Auto) 2.6, Baso % (Auto) 0.3, Neut # (Auto) 9.7 H, Lymph # (Auto) 1.9, [place] # (Auto) 0.8, Eos # (Auto) 0.3, Baso # (Auto) 0.0 05/05/20 14:30: Sodium 141, Potassium 3.6, Chloride 106, Carbon Dioxide 25 D, Anion Gap 13.6, BUN 13, Creatinine 1.00, Estimated Creat Clear 114, Estimated GFR 63, Est GFR ( Amer) 77, Glucose 127 H, Calcium 9.1 Result diagrams: 05/05/20 14:30 05/05/20 14:30 Orders (Tests/Meds): ED MEDICATIONS Discontinued Medications Generic Name Dose Route Start Last Admin Trade Name Silke PRN Reason Stop Dose Admin Hydromorphone HCl 1 mg 05/05/20 14:15 05/05/20 14:24 Dilaudid 2mg/Ml Syringe IV 05/05/20 14:16 1 mg ONCE ONE Administration Hydromorphone HCl 1 mg 05/05/20 16:00 05/05/20 16:05 Dilaudid 2mg/Ml Syringe IV 05/05/20 16:01 1 mg ONCE ONE Administration Promethazine HCl 12.5 mg 05/05/20 14:16 05/05/20 14:24 Phenergan 25mg/Ml 1ml Vial IV 05/05/20 14:17 12.5 mg ONCE ONE Administration Sodium Chloride 25 ml 05/05/20 14:16 05/05/20 14:24 Sod Chlor 0.9% 25ml Bag IV 05/05/20 14:17 25 ml ONCE ONE Administration Sodium Chloride 1,000 ml 05/05/20 16:01 05/05/20 16:05 Sod Chlor 0.9% 1000ml Bag IV 05/05/20 16:02 1,000 ml BOLUS ONE Administration ORDERS Category Date Time Status Urinalysis and Microscopic Stat Lab 05/05/20 14:13 Ordered - Physician Consults Physician Consulted: [facility] Time: 16:01 Reason -: Transfer to another facilty, Urology Eval/Care Comment/Response: Accepts patient. Likely will not get a procedure today, perhaps tomorrow. Patient informed. - Reevaluation(s) Time: 16:02 Reevaluation #1: Complaining of severe pain and requesting more pain medication. Medical Decision Narrative: Prior CT abdomen/pelvis: PROCEDURE: CT ABDOMEN PELVIS WO CON CLINICAL INDICATION: possible kidney stone Left-sided flank pain COMPARISON: CT CT ABDOMEN PELVIS WO CON from 12/12/2019 TECHNIQUE: Axial images obtained with sagittal and coronal reformats. All CT scans at the facility use one or more dose reduction, viz: automated exposure control, ma/kV adjustment per patient size (including targeted exams where dose is matched to indication, i.e. head), or iterative rec
[2020-05-05 14:46] LABS: Basophils % 0.3 % (0.1-2.0); Eosinophils # 0.3 K/mm3 (0.0-0.4); Eosinophils % 2.6 % (0.1-12.0); Hematocrit 38.9 % (37.0-47.0); Hemoglobin 13.4 g/dL (12.2-16.2); Lymphocytes # 1.9 K/mm3 (0.7-4.5); Lymphocytes % 14.6 % (10-50); Mean Corpuscular HGB Conc 34.5 g/dL (31.8-35.4); Mean Corpuscular Hemoglobin 28.7 pg (27.0-31.2); Mean Corpuscular Volume 83.3 fl (81-99); Mean Platelet Volume 8.4 fl (7.4-10.4); Monocytes # 0.8 K/mm3 (0.1-1.0); Monocytes % 5.9 % (1.7-9.3); Neutrophils # 9.7 K/mm3 (1.8-7.8); Neutrophils % 76.6 % (37.0-80.0); Platelet Count 360 K/mm3 (142-424); Red Blood Count 4.66 M/mm3 (4.20-5.40); Red Cell Distribution Width 14.6 % (11.5-17.5); White Blood Count 12.7 K/mm3 (4.8-10.8)
[2020-05-05 14:51] LABS: Chloride 106 mmol/L (98-107); Potassium 3.6 mmoL/L (3.5-5.1); Sodium 141 mmol/L (136-145)
[2020-05-05 14:54] LABS: Blood Urea Nitrogen 13 mg/dl (7-17); Creatinine Clearance Estimated 114 mL/min (50-200); Estimated Glomerular Filt Rate 63 ml/min (>60); GFR (African American) 77 ML/MIN (>60)
[2020-05-05 14:55] LABS: Anion Gap 13.6 mEq/L (5-15); Calcium 9.1 mg/dl (8.4-10.2); Carbon Dioxide 25 mmol/L (22.0-30.0); Glucose 127 mg/dl (74-100)
--- NOTE | 2020-05-05 15:34 | PC.NURSE ---
calling [facility] at [facility] time
--- NOTE | 2020-05-05 15:48 | PC.NURSE ---
Called and spoke with [facility] and they gave me a notification number of [phone]. I was then transferred to the transfer center and advised they would get urology and call us back in just a bit.
[2020-05-05 15:51] VITALS: BP 161/90; PULSE 78; RESP 16; O2SAT 98
--- NOTE | 2020-05-05 15:55 | PC.NURSE ---
speaking with Dr. Batista urology @ [facility]
--- NOTE | 2020-05-05 16:06 | PC.NURSE ---
Dr. Donovan accepted patient and advised they would call us back with a bed
[2020-05-05 16:18] VITALS: BP 170/98; PULSE 74; RESP 16; O2SAT 98
[2020-05-05 16:43] VITALS: BP 170/90; PULSE 87; RESP 16; TEMP 36.8; O2SAT 98
== END 2020-05-05 17:02 | disposition short-term general hospital (02) ==
PROVIDERS: Emergency Provider Emergency Medicine; PCP Nurse Practitioner Family
DX: N20.1 Calculus of ureter (principal); Z87.442 Personal history of urinary calculi; F41.8 Other specified anxiety disorders; K21.9 Gastro-esophageal reflux disease without esophagitis; E78.5 Hyperlipidemia, unspecified; I10 Essential (primary) hypertension; G43.709 Chronic migraine without aura, not intractable, without status migrainosus; F17.290 Nicotine dependence, other tobacco product, uncomplicated; Z79.899 Other long term (current) drug therapy; Z88.0 Allergy status to penicillin; Z88.2 Allergy status to sulfonamides; Z88.5 Allergy status to narcotic agent; Z88.8 Allergy status to other drugs, medicaments and biological substances; Z90.49 Acquired absence of other specified parts of digestive tract; Z90.710 Acquired absence of both cervix and uterus
CPT/HCPCS: 80048; 85025; 96365; 96375; 96376; 99283

== ENCOUNTER 2020-05-26 15:00 | Emergency (ER) | payer OTHER, SELFPAY ==
[2020-05-26 15:02] VITALS: BP 157/113; PULSE 110; RESP 16; TEMP 36.6; O2SAT 98; BMI 43.9
--- NOTE | 2020-05-26 15:17 | CT_ITS ---
PROCEDURE: CT ABDOMEN PELVIS WO CON CLINICAL INDICATION: R.flankl pain History of kidney stones COMPARISON: CT CT ABDOMEN PELVIS WO CON from 05/03/2020 TECHNIQUE: Axial images obtained with sagittal and coronal reformats. All CT scans at the facility use one or more dose reduction, viz: automated exposure control, ma/kV adjustment per patient size (including targeted exams where dose is matched to indication, i.e. head), or iterative reconstruction technique. FINDINGS: Lower thorax: No acute finding ABDOMEN: Liver: No masses or biliary dilatation. Gallbladder: Post cholecystectomy Pancreas: No masses or peripancreatic fluid collections. Spleen: unremarkable Adrenals: unremarkable Kidneys/ureters: The kidneys are normal in size. There is a tiny faint calculus upper pole right kidney. There is a 4-5 mm calculi right renal pelvis. There are 2 tiny 2-3 mm calculi lower pole left kidney. There is no obstructive uropathy of either kidney. ABDOMEN & PELVIS: Stomach bowel: The stomach duodenal sweep and small bowel appear normal. There is moderate scattered stool and gas seen throughout the colon though the descending and sigmoid colon are decompressed. There is moderate stool in the lower the sigmoid colon and rectum. There are few diverticuli of the sigmoid colon but there is no diverticulitis. Peritoneum: No abnormal fluid collections. No obvious inflammatory changes. No free air. There is a small umbilical hernia containing fat only. Lymph nodes: No enlarged lymph nodes apparent. Vasculature: No evidence of abdominal aortic aneurysm. No retroperitoneal hemorrhage evident. Bones: No acute fracture PELVIS: Reproductive: The patient is post hysterectomy. Bladder: The urinary bladder is decompressed, there is no free fluid in the pelvis. Appendix: The appendix is not definitely visualized but there are no pericecal inflammatory changes noted. IMPRESSION: 5 mm calculus right renal pelvis which could be a cause for hematuria but there is no obstructive uropathy of either kidney, other nonacute findings as described above Dictated by: Dr. Jose Day MD 05/26/2020 15:54 Dr. Jose Day MD in [facility] 05/26/2020 15:54
--- NOTE | 2020-05-26 15:18 | HMH.EDABDPAI ---
ED Disposition Clinical Impression: UTI (urinary tract infection) Qualifiers: Urinary tract infection type: acute cystitis Hematuria presence: with hematuria Qualified Code(s): N30.01 - Acute cystitis with hematuria Disposition: Home, Self-Care Condition on Discharge: Good Instructions: DI for Acute Abdomen Prescriptions: Phenazopyridine HCl 100 mg PO Q8HP PRN #12 tab PRN Reason: dysuria/bladder spasm Transmission Status: Pending to [facility] Ciprofloxacin HCl [Ciprofloxacin 500mg Tab] 500 mg PO BID 7 Days #14 tab Transmission Status: Pending to [facility] Referrals: Jojo Whyte APRN [Primary Care Provider] - - Critical Care Critical Care Time: No Attestation: On 05/26/20, the high probability of a clinically significant, sudden or life threatening deterioration of the following system(s) required my full and direct attention, intervention and personal management. The time I documented below is in addition to time spent performing reported procedures but includes the following listed in this critical care notation. Medical Decision Making - Medical Records Medical records reviewed: Yes: I reviewed the patient's medical records. - Olu Inquiry Pt receiving controlled substance: No Vital Signs: 05/26/20 15:02 Temperature 98 F Temperature Source Oral Pulse Rate [Left Radial] 110 H Respiratory Rate 16 Blood Pressure [Right Arm] 157/113 H Blood Pressure Mean [Right Arm] 127 Blood Pressure Position [Right Arm] Sitting 02 Sat by Pulse Oximetry 98 Oxygen Delivery Method Room Air - Lab Data Lab Results 05/26/20 15:05: Urine Color Yellow, Urine Appearance Cloudy, Urine pH 6.5, Ur Specific [place] 1.020, Urine Protein Negative, Urine Glucose (UA) Negative, Urine Ketones Negative, Urine Blood 1+, Urine Nitrate Negative, Urine Bilirubin Negative, Urine Urobilinogen 0.2, Ur Leukocyte Esterase 1+ A, Urine RBC 5-10, Urine WBC 5-10, Ur Squamous Epith Cells 20-50, Amorphous Sediment 1+, Urine Bacteria 1+ Orders (Tests/Meds): ED MEDICATIONS Discontinued Medications Generic Name Dose Route Start Last Admin Trade Name Freq PRN Reason Stop Dose Admin Dicyclomine HCl 20 mg 05/26/20 16:23 Dicyclomine 20mg/2ml Vial IM 05/26/20 16:24 ONCE ONE ORDERS Category Date Time Status Complete Blood Count Auto Diff Stat Lab 05/26/20 16:20 Received Comprehensive Metabolic Panel Stat Lab 05/26/20 16:20 Received Lactic Acid Stat Lab 05/26/20 15:17 Ordered Lipase Stat Lab 05/26/20 16:20 Received Urine Culture Stat Micro 05/26/20 15:05 Received - CT Data CT Scan: Abdomen, Pelvis Time Received: 16:[address] Reviewed: Yes: I have reviewed the patient's CT results, I have viewed the radiologist's interpretation Findings Narrative: 5 mm calculus right renal pelvis which could be a cause for hematuria but there is no obstructive uropathy of either kidney, other nonacute findings as described above Abdominal Pain HPI - General Chief Complaint: Abdominal Pain Stated Complaint: abd Time Seen by Provider: 05/26/20 15:15 Mode of Arrival: Ambulatory Source of Information: Patient Limitations: No Limitations Description of Symptoms (Recalled from ER Triage Doc. by RN): TO ED PER [facility] CAR WITH C/O RT SIDE ABD PAIN RADIATING INTO BACK STARTING YESTERDAY +NAUSEA, PT WITH HX OF KIDNEY STONES. - History of Present Illness HPI narrative: This is a 34-year-old female that presents with 2-day history of right flank pain that radiates around to the lower abdomen. Patient also reports dark urine with foul smell. She denies any fever. Pain is sharp and intermittent and moderate in intensity. No palliating or provoking measures. No vomiting or diarrhea. Patient does report history of nephrolithiasis. - Related Data Home Medications Medication Instructions Recorded Confirmed buspirone 30 mg tablet 15 mg PO TIDP PRN tab 10/21/17 05/03/20 paroxetine HCl 40 mg t
[2020-05-26 15:46] LABS: Microscopic, Urine URINE MICROSCOPIC (MICROSCOPIC)
[2020-05-26 15:47] LABS: Appearance,Urine CLOUDY (Clear); Bilirubin,Urine Negative (Negative); Blood, Urine 1+ (Negative); Color,Urine YELLOW (Yellow); Glucose,Urine (UA) Negative (Negative); Ketones,Urine Negative (Negative); Leukocyte Esterase,Urine 1+ (Negative); Nitrate,Urine Negative (Negative); PH,Urine 6.5 (5.0-8.5); Protein,Urine Negative (Negative); Urobilinogen,Urine 0.2 EU/dl (0.2)
[2020-05-26 16:24] LABS: Amorphous Sediment,Urine 1+ /lpf; Bacteria,Urine 1+ /lpf; Squamous Epithelial Cell,Urine 20-50 #/hpf (0-5)
[2020-05-26 16:40] LABS: Chloride 112 mmol/L (98-107); Potassium 4.9 mmoL/L (3.5-5.1); Sodium 142 mmol/L (136-145)
[2020-05-26 16:43] LABS: Alanine Aminotransferase 34 U/L (12-78); Albumin Level 3.8 g/dl (3.5-5.0); Albumin/Globulin Ratio 1.1 (1.1-1.8); Alkaline Phosphatase 83 U/L (38-126); Anion Gap 13.9 mEq/L (5-15); Aspartate Amino Transferase 43 U/L (14-36); Bilirubin,Total 0.6 mg/dl (0.2-1.3); Blood Urea Nitrogen 18 mg/dl (7-17); Calcium 9.9 mg/dl (8.4-10.2); Carbon Dioxide 21 mmol/L (22.0-30.0); Creatinine Clearance Estimated 90 mL/min (50-200); Estimated Glomerular Filt Rate 96 ml/min (>60); GFR (African American) 116 ML/MIN (>60); Globulin 3.6 g/dL (1.3-3.2); Glucose 102 mg/dl (74-100); Lipase 316 U/L (23-300); Total Protein,Serum 7.4 g/dl (6.3-8.2)
[2020-05-26 16:47] VITALS: BP 132/87; PULSE 78; RESP 16; TEMP 36.6; O2SAT 98
== END 2020-05-26 16:48 | disposition home or self-care (01) ==
PROVIDERS: Emergency Provider Emergency Medicine; PCP Nurse Practitioner Family
DX: N30.01 Acute cystitis with hematuria (principal); Z87.442 Personal history of urinary calculi; F41.8 Other specified anxiety disorders; K21.9 Gastro-esophageal reflux disease without esophagitis; E78.5 Hyperlipidemia, unspecified; I10 Essential (primary) hypertension; M79.7 Fibromyalgia; G43.709 Chronic migraine without aura, not intractable, without status migrainosus; F17.210 Nicotine dependence, cigarettes, uncomplicated; Z88.0 Allergy status to penicillin; Z79.899 Other long term (current) drug therapy
CPT/HCPCS: 74176; 80053; 81001; 83690; 87086; 87088; 87186; 99282

== ENCOUNTER 2020-07-12 09:52 | Emergency (ER) | payer OTHER, SELFPAY ==
[2020-07-12] VITALS (9 sets, daily range): BP systolic 132–187; BP diastolic 65–114; PULSE 90–108; RESP 17–20; TEMP 36.6–36.7; O2SAT 94–99; BMI 44.2
--- NOTE | 2020-07-12 10:06 | CT_ITS ---
PROCEDURE: CT ABDOMEN PELVIS W CON CLINICAL INDICATION: abd pain Pain for 3 weeks, worse today COMPARISON: CT CT ABDOMEN PELVIS WO CON from 05/26/2020 TECHNIQUE: IV Contrast: 75ML OPTIRAY 350 Oral Contrast none given Axial images obtained with sagittal and coronal reformats. All CT scans at the facility use one or more dose reduction, viz: automated exposure control, ma/kV adjustment per patient size (including targeted exams where dose is matched to indication, i.e. head), or iterative reconstruction technique. FINDINGS: Lower thorax: The lower lung narvaez are clear and there is no pleural fluid. Cardiac size is borderline. ABDOMEN: Liver: No masses or biliary dilatation. Gallbladder: Post cholecystectomy Pancreas: No masses or peripancreatic fluid collections. Spleen: unremarkable Adrenals: unremarkable Kidneys/ureters: The right kidney is somewhat swollen compared to the previous study 05/26/2020 is prominent hydronephrotic change. The calculus seen in the renal pelvis on the previous exam now is in the proximal ureter.. It measures approximately 7 mm in size. The left kidney is normal in size. There are 2 small calculi nonobstructing lower pole left kidney. ABDOMEN & PELVIS: Stomach bowel: The stomach is partially distended with ingested food particles and appears normal. The small bowel is normal. The appendix is not definitely visualized but there are no pericecal inflammatory changes. There is a moderate amount stool in the cecum and ascending colon. There are few scattered diverticuli of the lower descending colon but there is no diverticulitis. Peritoneum: No abnormal fluid collections. No obvious inflammatory changes. No free air. Lymph nodes: No enlarged lymph nodes apparent. Vasculature: No evidence of abdominal aortic aneurysm. No retroperitoneal hemorrhage evident. Bones: No acute fracture PELVIS: Reproductive: Post hysterectomy Bladder: The urinary bladder is decompressed, there is a tiny calculus sitting near the tunnel right UV junction probably just recently passed from the distal right ureter. Appendix: Not definitely visualized IMPRESSION: 6-7 mm calculus proximal right ureter causing moderately severe obstructive uropathy of the right kidney, small nonobstructing calculi lower pole left kidney, no other significant abdominal or pelvic pathology identified other than the tiny calculus sitting at the UV junction right-side. Dictated by: Dr. Jose Day MD 07/12/2020 11:21 Dr. Jose Day MD in [place] 07/12/2020 11:21
--- NOTE | 2020-07-12 10:12 | HMH.EDGENADL ---
ED Disposition Clinical Impression: Obstructive uropathy Hypertension Qualifiers: Hypertension type: unspecified Qualified Code(s): I10 - Essential (primary) hypertension [facility]position: [facility] Condition on Discharge: Good Referrals: Jojo Whyte APRN [Primary Care Provider] - - Critical Care Critical Care Time: No Attestation: On , the high probability of a clinically significant, sudden or life threatening deterioration of the following system(s) required my full and direct attention, intervention and personal management. The time I documented below is in addition to time spent performing reported procedures but includes the following listed in this critical care notation. Medical Decision Making - Medical Records Medical records reviewed: Yes: I reviewed the patient's medical records. - Olu Inquiry Pt receiving controlled substance: No Vital Signs: 07/12/20 09:53 Temperature 97.8 F Temperature Source Oral Pulse Rate [Left Radial] 108 H Respiratory Rate 18 Blood Pressure [Right Arm] 183/114 H Blood Pressure Mean [Right Arm] 137 02 Sat by Pulse Oximetry 97 Oxygen Delivery Method Room Air - Lab Data Lab results reviewed: Yes: I reviewed the patient's lab results. Lab Results 07/12/20 10:00: Urine Color Yellow, Urine Appearance Clear, Urine pH 6.5, Ur Specific [place] 1.025, Urine Protein 1+, Urine Glucose (UA) Negative, Urine Ketones Negative, Urine Blood 3+, Urine Nitrate Negative, Urine Bilirubin Negative, Urine Urobilinogen 0.2, Ur Leukocyte Esterase Trace, Urine RBC 50-100, Urine WBC 3-5, Ur Squamous Epith Cells 20-50, Amorphous Sediment 1+, Urine Bacteria None 07/12/20 10:50: WBC 14.2 H, RBC 5.31, Hgb 15.0, Hct 45.8, MCV 86.3, MCH 28.3, MCHC 32.8, RDW 14.8, Plt Count 453 H, MPV 7.7, Neut % (Auto) 74.2, Lymph % (Auto) 18.2, [place] % (Auto) 5.0, Eos % (Auto) 2.1, Baso % (Auto) 0.5, Neut # (Auto) 10.5 H, Lymph # (Auto) 2.6, [place] # (Auto) 0.7, Eos # (Auto) 0.3, Baso # (Auto) 0.1 07/12/20 10:50: Sodium 142, Potassium 4.1, Chloride 105, Carbon Dioxide 25, Anion Gap 16.1 H, BUN 18 H, Creatinine 1.10 H, Estimated Creat Clear 60, Estimated GFR 57 L, Est GFR ( Amer) 69, Glucose 109 H, Calcium 9.6, Total Bilirubin 0.5, AST 31, ALT 32, Alkaline Phosphatase 89, Total Protein 8.1, Albumin 4.4, Globulin 3.7 H, Albumin/Globulin Ratio 1.2, Amylase 52, Lipase 277 Result diagrams: 07/12/20 10:50 07/12/20 10:50 Orders (Tests/Meds): ED MEDICATIONS Generic Name Dose Route Start Last Admin Trade Name Freq PRN Reason Stop Dose Admin Lisinopril 5 mg 07/12/20 09:00 07/12/20 11:34 Lisinopril 10mg Tablet PO 08/11/20 08:59 5 mg DAILY JUANA Administration Discontinued Medications Generic Name Dose Route Start Last Admin Trade Name Freq PRN Reason Stop Dose Admin Lactated Ringer's 1,000 mls @ 999 mls/hr 07/12/20 10:15 07/12/20 11:16 Lactated Ringer's 1000 Ml Bag IV 07/12/20 11:15 999 mls/hr .Q1H1M JUANA Administration Lidocaine HCl 200 mg/ Sodium 110 mls @ 660 mls/hr 07/12/20 10:45 07/12/20 11:14 Chloride IV 07/12/20 10:54 660 mls/hr ONCE ONE Administration Iopamidol 50 ml 07/12/20 11:04 07/12/20 11:05 Iopamidol-370 (76%); 50ml Vial IV 07/12/20 11:05 50 ml ONCE ONE Administration Iopamidol 25 ml 07/12/20 11:04 07/12/20 11:05 Iopamidol-370 (76%); 50ml Vial IV 07/12/20 11:05 25 ml ONCE ONE Administration Lisinopril 5 mg 07/13/20 10:11 Lisinopril 5mg Tablet PO 07/13/20 10:12 ONCE ONE Sodium Chloride 10 ml 07/12/20 11:05 07/12/20 11:05 Sodium Chloride 0.9% 10ml Syr (Rad Only) IV 10/30/20 11:06 10 ml ONCE ONE Administration Medical Decision Narrative: 34-year-old female with known kidney stones presenting with right flank pain. Nontoxic, afebrile, hypertensive. Initial and repeat abdominal exam negative for rebound/guarding/rigidity. This is not an acute abdomen. CT of the abdomen and pelvis with IV
[2020-07-12 10:13] LABS: Microscopic, Urine URINE MICROSCOPIC (MICROSCOPIC)
[2020-07-12 10:16] LABS: Appearance,Urine CLEAR (Clear); Bilirubin,Urine Negative (Negative); Blood, Urine 3+ (Negative); Color,Urine YELLOW (Yellow); Glucose,Urine (UA) Negative (Negative); Ketones,Urine Negative (Negative); Leukocyte Esterase,Urine TRACE (Negative); Nitrate,Urine Negative (Negative); PH,Urine 6.5 (5.0-8.5); Protein,Urine 1+ (Negative); Specific Gravity, Urine 1.025 (1.005-1.030); Urobilinogen,Urine 0.2 EU/dl (0.2)
[2020-07-12 10:27] LABS: Amorphous Sediment,Urine 1+ /lpf; RBC,Urine 50-100 #/hpf (0-3); Squamous Epithelial Cell,Urine 20-50 #/hpf (0-5)
[2020-07-12 11:04] LABS: Basophils # 0.1 K/mm3 (0-0.2); Basophils % 0.5 % (0.1-2.0); Eosinophils # 0.3 K/mm3 (0.0-0.4); Eosinophils % 2.1 % (0.1-12.0); Hematocrit 45.8 % (37.0-47.0); Lymphocytes # 2.6 K/mm3 (0.7-4.5); Lymphocytes % 18.2 % (10-50); Mean Corpuscular HGB Conc 32.8 g/dL (31.8-35.4); Mean Corpuscular Hemoglobin 28.3 pg (27.0-31.2); Mean Corpuscular Volume 86.3 fl (81-99); Mean Platelet Volume 7.7 fl (7.4-10.4); Monocytes # 0.7 K/mm3 (0.1-1.0); Neutrophils # 10.5 K/mm3 (1.8-7.8); Neutrophils % 74.2 % (37.0-80.0); Platelet Count 453 K/mm3 (142-424); Red Blood Count 5.31 M/mm3 (4.20-5.40); Red Cell Distribution Width 14.8 % (11.5-17.5); White Blood Count 14.2 K/mm3 (4.8-10.8)
[2020-07-12 11:05] LABS: Chloride 105 mmol/L (98-107); Potassium 4.1 mmoL/L (3.5-5.1); Sodium 142 mmol/L (136-145)
[2020-07-12 11:08] LABS: Alanine Aminotransferase 32 U/L (12-78); Alkaline Phosphatase 89 U/L (38-126); Amylase 52 U/L (30-110); Anion Gap 16.1 mEq/L (5-15); Aspartate Amino Transferase 31 U/L (14-36); Bilirubin,Total 0.5 mg/dl (0.2-1.3); Blood Urea Nitrogen 18 mg/dl (7-17); Calcium 9.6 mg/dl (8.4-10.2); Carbon Dioxide 25 mmol/L (22.0-30.0); Creatinine Clearance Estimated 60 mL/min (50-200); Estimated Glomerular Filt Rate 57 ml/min (>60); GFR (African American) 69 ML/MIN (>60); Glucose 109 mg/dl (74-100); Lipase 277 U/L (23-300)
[2020-07-12 11:09] LABS: Albumin Level 4.4 g/dl (3.5-5.0); Albumin/Globulin Ratio 1.2 (1.1-1.8); Globulin 3.7 g/dL (1.3-3.2); Total Protein,Serum 8.1 g/dl (6.3-8.2)
--- NOTE | 2020-07-12 11:50 | PC.NURSE ---
Pt up to restroom
--- NOTE | 2020-07-12 12:15 | PC.NURSE ---
consulting [facility] for possible transfer.
--- NOTE | 2020-07-12 12:22 | PC.NURSE ---
[facility] Called for transport for urologist.
--- NOTE | 2020-07-12 12:53 | PC.NURSE ---
Dr Brambila spoke with Dr Rebolledo. ppt to be transferred.
--- NOTE | 2020-07-12 15:34 | PC.NURSE ---
Report given to Miguel Overton RN at [place]
== END 2020-07-12 15:42 ==
PROVIDERS: Emergency Provider Physician Assistant; PCP Nurse Practitioner Family
DX: N13.39 Other hydronephrosis (principal); N20.1 Calculus of ureter; Z87.442 Personal history of urinary calculi; F41.8 Other specified anxiety disorders; E78.5 Hyperlipidemia, unspecified; I10 Essential (primary) hypertension; K21.9 Gastro-esophageal reflux disease without esophagitis; F17.290 Nicotine dependence, other tobacco product, uncomplicated; G43.709 Chronic migraine without aura, not intractable, without status migrainosus; Z88.2 Allergy status to sulfonamides; Z79.899 Other long term (current) drug therapy; Z88.0 Allergy status to penicillin; Z88.8 Allergy status to other drugs, medicaments and biological substances
CPT/HCPCS: 74177; 80053; 81001; 82150; 83690; 85025; 96365; 96367; 96375; 99284; J2001; Q9967

== ENCOUNTER 2020-07-29 16:51 | Emergency (ER) | payer OTHER, SELFPAY ==
[2020-07-29 16:53] VITALS: BP 188/121; PULSE 102; PULSE 110; RESP 18; TEMP 37.5; O2SAT 98; O2SAT 99; BMI 43.9
[2020-07-29 17:11] LABS: Microscopic, Urine URINE MICROSCOPIC (MICROSCOPIC)
[2020-07-29 17:13] LABS: Appearance,Urine CLOUDY (Clear); Blood, Urine 3+ (Negative); Color,Urine BROWN (Yellow); Glucose,Urine (UA) Negative (Negative); Ketones,Urine Negative (Negative); Leukocyte Esterase,Urine 2+ (Negative); Nitrate,Urine POSITIVE (Negative); Protein,Urine 2+ (Negative); Specific Gravity, Urine >= 1.030 (1.005-1.030); Urobilinogen,Urine 0.2 EU/dl (0.2)
[2020-07-29 17:15] LABS: Bilirubin,Urine Negative (Negative)
[2020-07-29 17:23] LABS: Amorphous Sediment,Urine 3+ /lpf; Bacteria,Urine 2+ /lpf; RBC,Urine TNTC #/hpf (0-3); WBC,Urine TNTC #/hpf (0-3)
--- NOTE | 2020-07-29 17:42 | HMH.EDBACK ---
ED Disposition Clinical Impression: Pyelonephritis Disposition: Home, Self-Care Condition on Discharge: Fair Instructions: Kidney Infection Additional Instructions: Checked your labs and urine analysis and noted that you have a urinary tract infection and antibiotic is being prescribed however if you are not improving please come back for reevaluation Prescriptions: Nitrofurantoin Monohyd/M-Cryst [Macrobid 100 mg Capsule] 100 mg PO BID 7 Days #14 cap Transmission Status: Pending to [facility] Referrals: Jojo Whyte APRN [Primary Care Provider] - - Critical Care Critical Care Time: No Attestation: On 07/29/20, the high probability of a clinically significant, sudden or life threatening deterioration of the following system(s) required my full and direct attention, intervention and personal management. The time I documented below is in addition to time spent performing reported procedures but includes the following listed in this critical care notation. Medical Decision Making - Medical Records Medical records reviewed: Yes: I reviewed the patient's medical records. MR Comment: This is a 34-year-old female here with complaint of right flank pain with radiation to the groin she has had kidney stones and as a result stents placed in the right kidney now she started having pain and nausea and came to the ER for evaluation. Evaluated the patient and note white blood cell count of 12.3 she does have urinary tract infection with 3+ blood nitrites +2+ leukocytosis as well as WBCs and bacteria plan is to give her antibiotic and discharge her home advised her that in case her symptoms or not improving then she needs to follow-up back with us or the [place] [facility] Inquiry Pt receiving controlled substance: No Vital Signs: 07/29/20 16:53 07/29/20 19:36 Temperature 99.5 F 98.7 F Temperature Source Oral Oral Pulse Rate [Radial] 102 H 89 Respiratory Rate 18 15 Blood Pressure [Right Arm] 188/121 H 148/95 H Blood Pressure Mean [Right Arm] 143 112 Blood Pressure Source [Right Arm] Automatic Cuff Blood Pressure Position [Right Arm] Sitting 02 Sat by Pulse Oximetry 99 97 Oxygen Delivery Method Room Air Room Air - Lab Data Lab results reviewed: Yes: I reviewed the patient's lab results. Lab Results 07/29/20 17:00: Urine Color Brown, Urine Appearance Cloudy, Urine pH 6.0, Ur Specific [place] >= 1.030, Urine Protein 2+, Urine Glucose (UA) Negative, Urine Ketones Negative, Urine Blood 3+, Urine Nitrate Positive, Urine Bilirubin Negative, Urine Urobilinogen 0.2, Ur Leukocyte Esterase 2+ A, Urine RBC Tntc, Urine WBC Tntc, Ur Squamous Epith Cells 5-10, Amorphous Sediment 3+, Urine Bacteria 2+ 07/29/20 17:37: WBC 12.3 H, RBC 5.28, Hgb 15.0, Hct 45.3, MCV 85.8, MCH 28.4, MCHC 33.1, RDW 14.7, Plt Count 462 H, MPV 7.5, Neut % (Auto) 70.7, Lymph % (Auto) 20.2, [place] % (Auto) 4.6, Eos % (Auto) 4.0, Baso % (Auto) 0.3, Neut # (Auto) 8.7 H, Lymph # (Auto) 2.5, [place] # (Auto) 0.6, Eos # (Auto) 0.5 H, Baso # (Auto) 0.0 07/29/20 17:37: Sodium 141, Potassium 3.6, Chloride 106, Carbon Dioxide 26, Anion Gap 12.6, BUN 18 H, Creatinine 0.80, Estimated Creat Clear 78, Estimated GFR 82, Est GFR ( Amer) 99, Glucose 111 H, Calcium 9.4, Total Bilirubin 0.4, AST 28, ALT 28, Alkaline Phosphatase 85, Total Protein 8.0, Albumin 4.2, Globulin 3.8 H, Albumin/Globulin Ratio 1.1 07/29/20 17:37: Procalcitonin 0.042 Result diagrams: 07/29/20 17:37 07/29/20 17:37 Orders (Tests/Meds): ED MEDICATIONS Generic Name Dose Route Start Last Admin Trade Name Freq PRN Reason Stop Dose Admin Sodium Chloride 1,000 mls @ 999 mls/hr 07/29/20 19:30 07/29/20 19:51 Sod Chlor 0.9% 1000ml Bag IV 07/29/20 20:30 Not Given .Q1H1M JUANA ORDERS Category Date Time Status Lactic Acid Stat Lab 07/29/20 17:40 Ordered Blood Culture Stat Micro 07/29/20 19:18 Ordered Urine Culture Stat Micro 07/29/20 17:00 Received Back Pain HPI - G
[2020-07-29 17:48] LABS: Basophils % 0.3 % (0.1-2.0); Eosinophils # 0.5 K/mm3 (0.0-0.4); Hematocrit 45.3 % (37.0-47.0); Lymphocytes # 2.5 K/mm3 (0.7-4.5); Lymphocytes % 20.2 % (10-50); Mean Corpuscular HGB Conc 33.1 g/dL (31.8-35.4); Mean Corpuscular Hemoglobin 28.4 pg (27.0-31.2); Mean Corpuscular Volume 85.8 fl (81-99); Mean Platelet Volume 7.5 fl (7.4-10.4); Monocytes # 0.6 K/mm3 (0.1-1.0); Monocytes % 4.6 % (1.7-9.3); Neutrophils # 8.7 K/mm3 (1.8-7.8); Neutrophils % 70.7 % (37.0-80.0); Platelet Count 462 K/mm3 (142-424); Red Blood Count 5.28 M/mm3 (4.20-5.40); Red Cell Distribution Width 14.7 % (11.5-17.5); White Blood Count 12.3 K/mm3 (4.8-10.8)
[2020-07-29 17:51] LABS: Chloride 106 mmol/L (98-107); Potassium 3.6 mmoL/L (3.5-5.1); Sodium 141 mmol/L (136-145)
[2020-07-29 17:54] LABS: Alanine Aminotransferase 28 U/L (12-78); Albumin Level 4.2 g/dl (3.5-5.0); Albumin/Globulin Ratio 1.1 (1.1-1.8); Alkaline Phosphatase 85 U/L (38-126); Anion Gap 12.6 mEq/L (5-15); Aspartate Amino Transferase 28 U/L (14-36); Bilirubin,Total 0.4 mg/dl (0.2-1.3); Blood Urea Nitrogen 18 mg/dl (7-17); Calcium 9.4 mg/dl (8.4-10.2); Carbon Dioxide 26 mmol/L (22.0-30.0); Creatinine Clearance Estimated 78 mL/min (50-200); Estimated Glomerular Filt Rate 82 ml/min (>60); GFR (African American) 99 ML/MIN (>60); Globulin 3.8 g/dL (1.3-3.2); Glucose 111 mg/dl (74-100)
[2020-07-29 19:36] VITALS: BP 148/95; PULSE 89; RESP 15; TEMP 37.1; O2SAT 97
[2020-07-29 19:45] LABS: Procalcitonin 0.042 ng/mL (0.0-2.0)
[2020-07-29 20:06] VITALS: BP 142/87; PULSE 75; RESP 16; TEMP 36.9; O2SAT 98
== END 2020-07-29 20:13 | disposition home or self-care (01) ==
PROVIDERS: Emergency Provider Emergency Medicine; PCP Nurse Practitioner Family
DX: N12 Tubulo-interstitial nephritis, not specified as acute or chronic (principal); N23 Unspecified renal colic; F41.8 Other specified anxiety disorders; K21.9 Gastro-esophageal reflux disease without esophagitis; I10 Essential (primary) hypertension; M79.7 Fibromyalgia; Z87.442 Personal history of urinary calculi; Z88.0 Allergy status to penicillin; Z88.2 Allergy status to sulfonamides; Z88.5 Allergy status to narcotic agent; Z79.899 Other long term (current) drug therapy
CPT/HCPCS: 80053; 81001; 84145; 85025; 87086; 99283

== ENCOUNTER 2020-08-03 19:59 | Emergency (ER) | payer OTHER, SELFPAY ==
[2020-08-03 19:56] VITALS: BP 176/89; PULSE 92; RESP 16; TEMP 37.2; O2SAT 98; BMI 43.9
[2020-08-03 20:30] VITALS: BP 164/94; PULSE 112; RESP 17; O2SAT 98
--- NOTE | 2020-08-03 20:47 | CT_ITS ---
Procedure: CT ABDOMEN PELVIS WO CON Referring Doctor: Leonel Rivera Patient Age:34Y CLINICAL INDICATION: lower back/flank pain. Bilateral flank pain with nausea vomiting fever 2 days. Nonsmoker History of kidney stones. Patient has had a right ureter stent . Also has had cholecystectomy hysterectomy and hernia repair. COMPARISON: CT CT ABDOMEN PELVIS W CON from 07/12/2020 TECHNIQUE: No contrast utilized. No oral contrast given. Helical axial images obtained with sagittal and coronal reformats. All CT scans at the facility use one or more dose reduction, viz: automated exposure control, ma/kV adjustment per patient size (including targeted exams where dose is matched to indication, i.e. head), or iterative reconstruction technique. FINDINGS: Lower thorax: No acute finding lung bases clear. Heart upper normal size ABDOMEN: Lack of oral and IV contrast does decrease sensitivity somewhat Liver: No masses or biliary dilatation. Perhaps some mild diffuse fatty change Gallbladder: Surgically removed no biliary ductal dilatation. Pancreas: Unremarkable.. Unchanged . Spleen unremarkable Adrenals: unremarkable normal size -------- tract --------- Right ureteral stent in place.-the stent appears to be in good position with inferior pigtail in bladder and superior pigtail at the right renal pelvis. However there is right [id number] hydronephrosis with moderate fat stranding is seen is about the entire right ureter is well as right kidney. Although these features could merely reflect very active changes of the stent there is little decompression of hydronephrosis versus the 07/12/2020exam exam but findings may reflect a partially obstructed are nonfunctioning stent. Clinical correlation and urology follow-up advised. There is a approximately 3 mm stone adjacent to the stent, mid right ureter, just to the right of superior L4 vertebra level. This stone remains very similar position of compared to the July 12 CT exam. Left kidney: There are 2 small roughly 3 mm small calculi lower pole left kidney associated with a mildly prominent calyx would note that these have changed position slightly enter more in position than on the previous June exam. PELVIS: Uterus is been removed. No significant adnexal masses but bladder. Mild diffuse wall thickening the bladder-could merely reflect its lack of distension. . GI tract Stomach and small bowel: Nondistended. No obvious mass or thickening.. Large bowel of moderate stool. A few scattered colonic diverticuli but no diverticulitis There is a mobile cecum which extends towards midline at the anterior lower pelvis Appendix is been removed no appendicitis Peritoneum: No abnormal fluid collections. No obvious inflammatory changes. No free air. Lymph nodes: No enlarged lymph nodes apparent. Vasculature: No evidence of abdominal aortic aneurysm. No retroperitoneal findings. Bones: No acute fracture. Mild degenerative disc space narrowing L5/S1 IMPRESSION: Right ureteral stent in place, but despite this there is persistent right hydronephrosis/persistent right-sided obstructive uropathy. (With Nephromegaly, perinephric and periureteral stranding, moderate right hydronephrosis). These features raise concern for a partially obstructed or nonfunctioning right ureteral stent. Clinical correlation required. Urology follow-up suggested. Small roughly 3 mm right ureteral stone of is seen adjacent to the stent, to the right of the L4 vertebra. No significant change in its position since July 12 CT . Punctate left nephrolithiasis tiny stones here have changed position slightly with slight dilated lower pole
[2020-08-03 21:00] VITALS: BP 154/76; PULSE 88; RESP 19; O2SAT 98
--- NOTE | 2020-08-03 21:00 | PC.NURSE ---
difficulty obtaining blood. iv initiated to right anterior chest wall. pt tolerated well. vss. notified. fluids initiated.
--- NOTE | 2020-08-03 21:24 | HMH.EDGENADL ---
ED Disposition Clinical Impression: Pyelonephritis, SIRS (systemic inflammatory response syndrome), Renal colic on right side Disposition: Xfer Short-Term Hosp Condition on Discharge: Fair Referrals: Jojo Whyte APRN [Primary Care Provider] - - Critical Care Critical Care Time: No Attestation: On 08/03/20, the high probability of a clinically significant, sudden or life threatening deterioration of the following system(s) required my full and direct attention, intervention and personal management. The time I documented below is in addition to time spent performing reported procedures but includes the following listed in this critical care notation. Medical Decision Making - Medical Records Medical records reviewed: Yes: I reviewed the patient's medical records. - Olu Inquiry Pt receiving controlled substance: No Vital Signs: 08/03/20 19:56 Temperature 99.0 F Temperature Source Oral Pulse Rate [Left Radial] 92 H Respiratory Rate 16 Blood Pressure [Right Arm] 176/89 H Blood Pressure Mean [Right Arm] 118 Blood Pressure Source [Right Arm] Automatic Cuff Blood Pressure Position [Right Arm] Sitting 02 Sat by Pulse Oximetry 98 Oxygen Delivery Method Room Air - Lab Data Lab results reviewed: Yes: I reviewed the patient's lab results. Lab Results 08/03/20 21:45: Urine Color Yellow, Urine Appearance Cloudy, Urine pH 7.0, Ur Specific [place] 1.020, Urine Protein 1+, Urine Glucose (UA) Negative, Urine Ketones Negative, Urine Blood 3+, Urine Nitrate Negative, Urine Bilirubin Negative, Urine Urobilinogen 0.2, Ur Leukocyte Esterase 2+ A, Urine RBC 20-50, Urine WBC 50-100 08/03/20 23:15: WBC 16.1 H, RBC 4.74, Hgb 13.3, Hct 40.5, MCV 85.6, MCH 28.0, MCHC 32.8, RDW 14.5, Plt Count 424, MPV 7.4, Neut % (Auto) 79.5, Lymph % (Auto) 12.4, [place] % (Auto) 5.8, Eos % (Auto) 1.9, Baso % (Auto) 0.3, Neut # (Auto) 12.8 H, Lymph # (Auto) 2.0, [place] # (Auto) 0.9, Eos # (Auto) 0.3, Baso # (Auto) 0.1, Total Counted 100, Neutrophils % (Manual) 76, Band Neutrophils % 4.0, Lymphocytes % (Manual) 17, Eosinophils % (Manual) 3, Platelet Estimate Normal, RBC Morphology Normal, Rouleaux 1+ 08/03/20 23:15: Sodium 138, Potassium 3.4 L, Chloride 105, Carbon Dioxide 27, Anion Gap 9.4, BUN 14, Creatinine 1.30 H, Estimated Creat Clear 48, Estimated GFR 47 L, Est GFR ( Amer) 57 L, Glucose 108 H, Calcium 8.5, Total Bilirubin 0.7, AST 22, ALT 22, Alkaline Phosphatase 98, Total Protein 7.1, Albumin 3.7, Globulin 3.4 H, Albumin/Globulin Ratio 1.1, Procalcitonin 0.165 Result diagrams: 08/03/20 23:15 08/03/20 23:15 Orders (Tests/Meds): ED MEDICATIONS Generic Name Dose Route Start Last Admin Trade Name Freq PRN Reason Stop Dose Admin Sodium Chloride 1,000 mls @ 999 mls/hr 08/03/20 20:30 08/03/20 20:57 Sod Chlor 0.9% 1000ml Bag IV 08/03/20 21:30 999 mls/hr .Q1H1M JUANA Administration Ertapenem 1 gm/ Sodium 50 mls @ 100 mls/hr 08/03/20 23:30 08/03/20 23:38 Chloride IV 08/17/20 23:29 100 mls/hr Q24H JUANA Administration Protocol ORDERS Category Date Time Status CT abdomen pelvis wo con Stat Cat Scan 08/03/20 20:47 Taken Lactic Acid Stat Lab 08/03/20 20:28 Ordered Blood Culture Stat Micro 08/03/20 23:15 Received Urine Culture Stat Micro 08/03/20 21:45 Received - CT Data CT Scan: Abdomen, Pelvis Time Received: 00:[address] Reviewed: Yes: I have viewed the radiologist's interpretation Preliminary Findings: Abnormal (see report ) - Physician Consults Physician Consulted: kristie mauro Reason -: Transfer to another facilty General Adult HPI - General Chief complaint: PAIN Stated complaint: flank pain Time Seen by Provider: 08/03/20 20:30 Mode of Arrival: EMS Source of Information: Patient, Medical Record Limitations: No Limitations Description of Symptoms (Recalled from ER Triage Doc. by RN): pt stated she has been diagnosed with a UTI earlier this week and saw her PCP on wednesday who changed her
[2020-08-03 21:30] VITALS: BP 165/78; PULSE 82; RESP 16; O2SAT 98
[2020-08-03 21:57] LABS: Microscopic, Urine URINE MICROSCOPIC (MICROSCOPIC)
[2020-08-03 22:00] VITALS: BP 155/88; PULSE 108; RESP 17; O2SAT 98
[2020-08-03 22:00] LABS: Appearance,Urine CLOUDY (Clear); Bilirubin,Urine Negative (Negative); Blood, Urine 3+ (Negative); Color,Urine YELLOW (Yellow); Glucose,Urine (UA) Negative (Negative); Ketones,Urine Negative (Negative); Leukocyte Esterase,Urine 2+ (Negative); Nitrate,Urine Negative (Negative); Protein,Urine 1+ (Negative); Urobilinogen,Urine 0.2 EU/dl (0.2)
[2020-08-03 22:04] LABS: RBC,Urine 20-50 #/hpf (0-3); WBC,Urine 50-100 #/hpf (0-3)
[2020-08-03 22:30] VITALS: BP 151/76; PULSE 89; RESP 18; O2SAT 98
--- NOTE | 2020-08-03 23:01 | PC.NURSE ---
attempting to draw blood via iv site. no success. no successful venipunctures x 2 attempts. md to draw from femoral artery. md at bedside. pt agreed to procedure. site cleaned per protocol. md accessed, blood obtained and sent to lab.
[2020-08-03 23:28] LABS: Basophils # 0.1 K/mm3 (0-0.2); Basophils % 0.3 % (0.1-2.0); Eosinophils # 0.3 K/mm3 (0.0-0.4); Eosinophils % 1.9 % (0.1-12.0); Hematocrit 40.5 % (37.0-47.0); Hemoglobin 13.3 g/dL (12.2-16.2); Lymphocytes % 12.4 % (10-50); Mean Corpuscular HGB Conc 32.8 g/dL (31.8-35.4); Mean Corpuscular Volume 85.6 fl (81-99); Mean Platelet Volume 7.4 fl (7.4-10.4); Monocytes # 0.9 K/mm3 (0.1-1.0); Monocytes % 5.8 % (1.7-9.3); Neutrophils # 12.8 K/mm3 (1.8-7.8); Neutrophils % 79.5 % (37.0-80.0); Platelet Count 424 K/mm3 (142-424); Red Blood Count 4.74 M/mm3 (4.20-5.40); Red Cell Distribution Width 14.5 % (11.5-17.5); White Blood Count 16.1 K/mm3 (4.8-10.8)
[2020-08-03 23:30] LABS: MANUAL DIFFERENTIAL MANUAL DIFFERENTIAL (MANUAL DIFF)
[2020-08-03 23:38] LABS: Alanine Aminotransferase 22 U/L (12-78); Albumin Level 3.7 g/dl (3.5-5.0); Albumin/Globulin Ratio 1.1 (1.1-1.8); Alkaline Phosphatase 98 U/L (38-126); Anion Gap 9.4 mEq/L (5-15); Aspartate Amino Transferase 22 U/L (14-36); Bilirubin,Total 0.7 mg/dl (0.2-1.3); Blood Urea Nitrogen 14 mg/dl (7-17); Calcium 8.5 mg/dl (8.4-10.2); Carbon Dioxide 27 mmol/L (22.0-30.0); Chloride 105 mmol/L (98-107); Creatinine Clearance Estimated 48 mL/min (50-200); Estimated Glomerular Filt Rate 47 ml/min (>60); GFR (African American) 57 ML/MIN (>60); Globulin 3.4 g/dL (1.3-3.2); Glucose 108 mg/dl (74-100); Potassium 3.4 mmoL/L (3.5-5.1); Sodium 138 mmol/L (136-145); Total Protein,Serum 7.1 g/dl (6.3-8.2)
[2020-08-03 23:43] LABS: Eosinophils % 3 % (0-3); Lymphocytes % 17 % (10-50); Neutrophils % 76 % (42-76); Platelet Estimate Normal; RBC Morphology Normal; Rouleaux 1+; Total Cells Counted 100
[2020-08-03 23:55] LABS: Procalcitonin 0.165 ng/mL (0.0-2.0)
[2020-08-04] VITALS: BP 154/87; PULSE 112; RESP 17; O2SAT 96
--- NOTE | 2020-08-04 00:02 | PC.NURSE ---
called [facility] for transfer. awaiting call back at this time.
--- NOTE | 2020-08-04 00:08 | PC.NURSE ---
on phone with dr. brunson from [facility] at this time
--- NOTE | 2020-08-04 00:14 | PC.NURSE ---
dr. brunson accepted transfer to the [facility].
[2020-08-04 00:40] VITALS: BP 151/79; PULSE 73; RESP 16; TEMP 37.5
== END 2020-08-04 00:47 | disposition short-term general hospital (02) ==
PROVIDERS: Emergency Provider Emergency Medicine; PCP Nurse Practitioner Family
DX: N10 Acute pyelonephritis (principal); B96.20 Unspecified Escherichia coli [E. coli] as the cause of diseases classified elsewhere; K21.9 Gastro-esophageal reflux disease without esophagitis; F41.8 Other specified anxiety disorders; E78.5 Hyperlipidemia, unspecified; F17.210 Nicotine dependence, cigarettes, uncomplicated; Z88.0 Allergy status to penicillin
CPT/HCPCS: 74176; 80053; 81001; 84145; 85007; 85025; 87040; 87077; 87086; 87088; 87186; 96365; 96366; 96367; 96375; 99284; J1335

== ENCOUNTER 2020-08-20 14:10 | Emergency (ER) | payer OTHER, SELFPAY ==
[2020-08-20 14:38] VITALS: BP 153/97; PULSE 96; RESP 20; TEMP 36.7; O2SAT 98; BMI 43.9
--- NOTE | 2020-08-20 14:44 | HMH.EDUTC ---
[facility] Disposition Clinical Impression: Encounter for laboratory testing for COVID-19 virus Disposition: Home, Self-Care Condition on Discharge: Good Instructions: Preventing the Spread of Coronavirus Discharge Instructions Additional Instructions: *Monitor Temp, Over the counter Motrin or Tylenol as directed/as needed Tylenol every 4 hours and Motrin every 6 hours (as long as your family doctor has told you that you can take it) for fever or pain. and straight to ER if unable to lower temp less than 101.0 after medication given *Warm salt water gargles may help to soothe the throat *Throat Lozenges *Warm fluids like tea with honey may help to soothe the throat *Sleep elevated *Humidifier/Vaporizer Follow up IMMEDIATELY for new or worsening symptoms or no Noticeable improvement over the next 48-72 hours. 911 for difficulty breathing or swallowing You were tested for today for COVID19 your test result should be back in the next 24-48 hours, you may call to the [facility] to see if your test results are back in the next 48 hours [phone] [facility] hours are 9am-9pm You was given a handout with instructions for Self Quarantine and Self isolation for while you wait on test results and what to do if they are positive If you are positive the Health Dept will be contacting you also Referrals: Jojo Whyte APRN [Primary Care Provider] - As needed Time of Disposition: 14:47 Medical Decision Making - Olu Inquiry Pt receiving controlled substance: No Olu was queried for this patient: No Vital Signs: 08/20/20 14:38 Temperature 98.1 F Temperature Source Oral Pulse Rate [Radial] 96 H Respiratory Rate 20 Blood Pressure [Right Arm] 153/97 H Blood Pressure Mean [Right Arm] 115 Blood Pressure Source [Right Arm] Automatic Cuff Blood Pressure Position [Right Arm] Sitting 02 Sat by Pulse Oximetry 98 Oxygen Delivery Method Room Air Orders (Tests/Meds): ORDERS Category Date Time Status Covid-19 Nasal PCR Sendout [facility] 08/20/20 14:23 Ordered [facility] HPI - General Stated complaint: covid test for dentist Time Seen by Provider: 08/20/20 14:44 Mode of Arrival: Ambulatory Source of Information: Patient Limitations: No Limitations Description of Symptoms (Recalled from Triage Doc. by RN): COVID test HEENT Symptoms (Recalled from RN notes): No Resp Symptoms (Recalled from RN notes): No Skin Symptoms (Recalled from RN notes): No MS Symptoms (Recalled from RN notes): No Functional Status (Recalled from RN notes): wnl - History of Present Illness Provider Complaint: Patient states that she wants to have a COVID test States that she is suppose to see the dentist and they told her they may have to do oral surgery and she wanted to have a test done that way she has it - Related Data Home Medications Medication Instructions Recorded Confirmed buspirone 30 mg tablet 15 mg PO TIDP PRN tab 10/21/17 08/03/20 paroxetine HCl 40 mg tablet 60 mg PO DAILY 10/21/17 08/03/20 Albuterol Sulfate [Ventolin HFA 2 puffs IH Q4-6H PRN 12/20/17 08/03/20 Inhaler] raNITIdine HCL [Ranitidine HCl] 150 mg PO HSP PRN 12/20/17 08/03/20 Tizanidine HCl [Zanaflex 4mg 6 mg PO TIDP PRN 03/15/18 08/03/20 tab] hydrOXYzine pamoate [Hydroxyzine 50 mg PO TID 10/31/18 08/03/20 Pamoate] Ibuprofen [Ibuprofen 800mg 800 mg PO TID 11/01/18 08/03/20 Tablet] Phenazopyridine HCl [Pyridium] 100 mg PO DAILY 11/24/18 08/03/20 Gabapentin [Gabapentin 400mg Cap] 800 mg PO TID 05/05/19 08/03/20 Cefdinir [Omnicef 300mg Capsule] 300 mg PO DAILY 08/03/20 08/03/20 Tamsulosin HCl [Flomax 0.4mg 0.4 mg PO HS 08/03/20 08/03/20 capsule] Allergies Allergy/AdvReac Type Severity Reaction Status Date / Time Penicillins Allergy Severe Hives Verified 11/17/18 11:03 gatifloxacin [From TEQUIN] Allergy Mild Verified 11/17/18 11:03 ketorolac [From TORADOL] Allergy Mild Verified 11/17/18 11:03 aztreonam [AZTREONAM] Allergy Unknown NA-NAUSEA/V
[2020-08-20 14:55] VITALS: BP 153/97; PULSE 96; RESP 20; TEMP 36.7; O2SAT 98
[2020-08-22 12:40] LABS: Covid-19 Nasal PCR Sendout Lex Not Detected
== END 2020-08-20 15:05 | disposition home or self-care (01) ==
PROVIDERS: Emergency Provider Nurse Practitioner; PCP Nurse Practitioner Family
DX: Z20.828 Contact with and (suspected) exposure to other viral communicable diseases (principal); I10 Essential (primary) hypertension; F41.8 Other specified anxiety disorders; K21.9 Gastro-esophageal reflux disease without esophagitis; E78.5 Hyperlipidemia, unspecified; Z87.442 Personal history of urinary calculi; Z79.899 Other long term (current) drug therapy; Z88.0 Allergy status to penicillin; Z88.5 Allergy status to narcotic agent; Z88.2 Allergy status to sulfonamides
CPT/HCPCS: 99201; U0004

== ENCOUNTER 2020-10-23 14:41 | Observation (INO) | payer OTHER, SELFPAY ==
[2020-10-23] VITALS (13 sets, daily range): BP systolic 143–192; BP diastolic 89–117; PULSE 87–118; RESP 15–20; TEMP 36.7–36.9; O2SAT 92–98; BMI 38.9; BMI 36.6
--- NOTE | 2020-10-23 14:45 | XR_ITS ---
PROCEDURE: XR TIBIA FIBULA LT 2V CLINICAL INDICATION: fall, misalignment Pain COMPARISON: CR XR ANKLE LT 2V from 10/23/2020 FINDINGS: Comminuted fracture involves the distal shaft of the tibia 7 cm proximal to the distal tibial surface. There is 5 mm dorsal and 5 mm medial displacement of the distal fracture fragment with minimal medial and anterior angulation of the distal fracture fragment. There is an oblique fracture of the distal shaft of the fibula 6 cm proximal to the fibular tip with 6 mm dorsal displacement of the distal fracture fragment. The ankle mortise is intact. IMPRESSION: Mildly displaced distal tib fib fracture as described above Dictated by: Yg Richter MD 10/23/2020 15:15 Yg Richter MD in [place] 10/23/2020 15:15
--- NOTE | 2020-10-23 14:48 | HMH.EDFALL ---
ED Disposition Clinical Impression: Tibia/fibula fracture Qualifiers: Encounter type: initial encounter Fracture type: closed Laterality: right Qualified Code(s): S82.201A - Unspecified fracture of shaft of right tibia, initial encounter for closed fracture Disposition: Admitted As Inpatient Condition on Discharge: Good Time of Disposition: 16:23 - Critical Care Critical Care Time: No Attestation: On , the high probability of a clinically significant, sudden or life threatening deterioration of the following system(s) required my full and direct attention, intervention and personal management. The time I documented below is in addition to time spent performing reported procedures but includes the following listed in this critical care notation. Medical Decision Making - Medical Records Medical records reviewed: Yes: I reviewed the patient's medical records. - Olu Inquiry Pt receiving controlled substance: Yes Olu was queried for this patient: No Reason not queried -: Emergent pt cond-no time Risks and benefits of using a controlled substance: were discussed with pt by me Vital Signs: 10/23/20 14:41 10/23/20 17:19 10/23/20 17:30 Temperature 98.4 F Temperature Source Oral Pulse Rate [Left Radial] 87 97 H 98 H Respiratory Rate 20 Blood Pressure [Right Arm] 177/107 H 158/110 H 182/113 H Blood Pressure Mean [Right Arm] 130 126 136 Blood Pressure Source [Right Arm] Automatic Cuff Automatic Cuff Automatic Cuff Blood Pressure Position [Right Arm] Sitting Sitting Sitting 02 Sat by Pulse Oximetry 98 95 92 L Oxygen Delivery Method Room Air Room Air Room Air 10/23/20 17:58 10/23/20 18:14 Temperature Temperature Source Pulse Rate [Left Radial] 107 H 106 H Respiratory Rate Blood Pressure [Right Arm] 155/108 H 143/113 H Blood Pressure Mean [Right Arm] 123 123 Blood Pressure Source [Right Arm] Automatic Cuff Automatic Cuff Blood Pressure Position [Right Arm] Sitting Sitting 02 Sat by Pulse Oximetry 98 93 L Oxygen Delivery Method Room Air Room Air - Lab Data Lab results reviewed: Yes: I reviewed the patient's lab results. Result diagrams: 10/23/20 18:45 10/23/20 18:45 Orders (Tests/Meds): ED MEDICATIONS Generic Name Dose Route Start Last Admin Trade Name Freq PRN Reason Stop Dose Admin Acetaminophen 650 mg 10/23/20 16:25 Acetaminophen 325mg Tab PO 11/22/20 16:24 Q4HP PRN As Needed for Fever or Pain Al Hydrox/Mg Hydrox/Simethicone 30 ml 10/23/20 16:25 Aluminum & Magnesium Hydroxide 30ml Udc PO 11/22/20 16:24 QIDP PRN Dyspepsia Albuterol Sulfate 2 puffs 10/23/20 16:28 Albuterol-Hfa 90mcg/Puff Inhaler 8gm IH 11/22/20 16:27 Q4-6H PRN Shortness Of Breath Or Wheezing Cefdinir 300 mg 10/24/20 09:00 Cefdinir 300mg Capsule PO 11/07/20 08:[address] [facility] Protocol Docusate Sodium 100 mg 10/24/20 09:00 Docusate Sodium 100 Mg Capsule PO 11/23/20 08:[address] [facility] Gabapentin 800 mg 10/23/20 21:00 Gabapentin 400mg Capsule PO 11/22/20 20:[address] [facility] Heparin Sodium (Porcine) 5,000 unit 10/23/20 16:30 Heparin Sodium 5,000 Unit/Ml Vial SQ 11/22/20 16:[address] [facility] Morphine Sulfate 4 mg 10/23/20 16:32 Morphine 4mg/Ml Syringe IV 11/22/20 16:31 Q6HP PRN Moderate to Severe Pain Non-Formulary Medication 15 mg 10/23/20 16:28 Buspirone Hcl [Buspirone 30mg Tablets] PO TIDP PRN Anxiety Non-Formulary Medication 50 mg 10/23/20 21:00 Hydroxyzine Pamoate [Hydroxyzine Pamoate] PO 11/22/20 20:[address] [facility] Non-Formulary Medication 60 mg 10/24/20 09:00 Paroxetine Hcl [Paroxetine Hcl] PO 11/23/20 08:[address] [facility] Non-Formulary Medication 100 mg 10/24/20 09:00 Phenazopyridine Hcl [Pyridium] PO 11/23/20 08:[address] [facility] Non-Formulary Medication 150 mg 10/23/20 16:28 Ranitidine Hcl [Ranitidine Hcl] PO HSP PRN Acid Reflux Tamsulosin HCl 0.4 mg
--- NOTE | 2020-10-23 15:15 | PC.NURSE ---
v/s delayed due to attempting to insert IV
--- NOTE | 2020-10-23 15:29 | PC.NURSE ---
KIP PALOMINO spoke with Dr. Lovell, states Dr. Lovell is going to contact the OR staff to check on the schedule for tomorrow and call us back
--- NOTE | 2020-10-23 15:32 | PC.NURSE ---
contacted preop to see if staff could come down to attempt IV access with ultrasound
--- NOTE | 2020-10-23 16:38 | PC.NURSE ---
house called for bed
--- NOTE | 2020-10-23 16:48 | PC.NURSE ---
v/s delayed still due to attempting IV access
--- NOTE | 2020-10-23 17:50 | HMH.HP ---
*Admission Date: 10/23/20 *Chief complaint: Pain left leg and left ankle *History of present illness: Patient is a 35-year-old female presented to the ER with EMS complaining of left leg and left ankle pain. Patient was seen in the ER for orthopedic consultation; patient's friend is by her bedside.? She is giving a history of injury to her left leg after slipping on ice. She says she felt the leg break before she fell to the ground. Following the injury she developed severe pain in her left leg and left ankle and she could not get up or walk.? Following the injury she was brought to the [facility] ER where evaluation including x-rays showed a closed, displaced fracture shaft of left distal tibia with closed displaced fracture of the lateral malleolus, left ankle. She is reporting pain in the left lower leg and left ankle. The pain is worse with any attempted movements of the extremity.? There is no history of any distal tingling or numbness.? She is not complaining of pain anywhere else.? No history of any loss of consciousness, head injury, neck or back pain.? Her past medical history includes hypertension, asthma, GERD, anxiety, depression, PTSD, fibromyalgia, chronic pain, recurrent kidney stones and recurrent UTI. Patient is on oral cefdinir 300 mg daily. Past surgical history includes cholecystectomy, hernia repair, total hysterectomy and ureteric stent. She has history of multiple allergies. She is a current everyday smoker and smokes 1 pack of cigarettes a day. 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 [place] History I have reviewed the patient's past medical history: Yes 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: Reports:: Anxiety, Asthma, Depression, Gastroesophageal Reflux Disease(GERD), Hyperlipidemia, Hypertension, Kidney Stones, Migraine Denies:: Cancer, Diabetes Mellitus Type 1, Diabetes Mellitus Type 2, Internal Pacemaker, MRSA, Seizures *Have you ever received a pneumonia vaccine?: No *Have you received a flu vaccine this season?: No Other 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: Reports: Fibromyalgia, Other. Denies: Blood Transfusion Reaction Laterality Cases: Bilateral: Myringotomy (Ear Tubes), Tonsillectomy Other Surgeries: Yes: Cholecystectomy, Hernia Repair, Hysterectomy-Total, Ureter Stent, Other. No: Pacemaker Amputation: No Fractures: No - *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 Smoking Status: Current every day smoker Tobacco Type: cigarettes # Packs/Day (cigarettes): 1 Alcohol Intake: never Substance Use Type: denies use *Occupational Status:: other Housing: house Household Members: other *Travel in the last 8 weeks: None - Psychiatric History Pschychiatric History:: Reports:: Anxiety, Depression Family Hx:: Adopted Review of Systems - Review of Systems Review of systems:: pertinent systems reviewed and negative unless documented below - Constitutional Denies chills, Denies fever(s) - Eyes Denies change in vision - ENT Denies abnormal hearing - *Cardiovascular Denies chest pain, Denies shortness of breath - *Respiratory Denies chest congestion, Denies cough - *Gastrointestinal Denies abdominal pain, Denies change in bowel habits - *Musculoskeletal Reports abnormal walking, Reports joint pain, Reports deformity - Integumentary/Breasts Denies bleeding lesions - *Neurologic Reports abnormal walking, Denies seizure-like activity, Denies dizziness, Denies numbness, Denies tingling - Endocrine Denies cold intolerance, Denies heat intolerance - Hematologic/Lymphatic Denies easy bleeding, Denies easy bruising Meds Home Medications Medication Instructions Recorded Confirmed Type buspirone 30 mg tablet 15 mg PO TIDP PRN tab 10/21/17 10/23/20 History paroxetine HCl 40 mg tablet 60 mg PO DAILY 10/21/17 10/23/20 History Albuterol Sulfate [Ventolin HFA 2 puffs IH Q4-6H PRN 12/20/17 10/23/20 History Inhaler] raNITIdine HCL [Ranitidine HCl] 150 mg PO HSP PRN 12/20/17 10/23/20 History Tizanidine HCl [Zanaflex 4mg 6 mg PO TIDP PRN 03/15/18 10/23/20 History tab
[2020-10-23 19:03] LABS: Basophils # 0.1 K/mm3 (0-0.2); Basophils % 0.5 % (0.1-2.0); Eosinophils # 0.2 K/mm3 (0.0-0.4); Eosinophils % 1.5 % (0.1-12.0); Hematocrit 42.1 % (37.0-47.0); Lymphocytes # 1.8 K/mm3 (0.7-4.5); Lymphocytes % 11.6 % (10-50); Mean Corpuscular HGB Conc 33.2 g/dL (31.8-35.4); Mean Corpuscular Hemoglobin 27.9 pg (27.0-31.2); Mean Corpuscular Volume 83.9 fl (81-99); Mean Platelet Volume 8.1 fl (7.4-10.4); Monocytes # 0.7 K/mm3 (0.1-1.0); Monocytes % 4.1 % (1.7-9.3); Neutrophils % 82.3 % (37.0-80.0); Platelet Count 582 K/mm3 (142-424); Red Blood Count 5.01 M/mm3 (4.20-5.40); Red Cell Distribution Width 14.3 % (11.5-17.5); White Blood Count 15.8 K/mm3 (4.8-10.8)
[2020-10-23 19:05] LABS: MANUAL DIFFERENTIAL MANUAL DIFFERENTIAL (MANUAL DIFF)
[2020-10-23 19:27] LABS: Chloride 109 mmol/L (98-107); Potassium 3.5 mmoL/L (3.5-5.1); Sodium 141 mmol/L (136-145)
--- NOTE | 2020-10-23 19:28 | XR_ITS ---
PROCEDURE: XR TIBIA FIBULA LT 2V CLINICAL INDICATION: post reduction Follow-up fracture COMPARISON: CR XR TIBIA FIBULA LT 2V from 10/23/2020 FINDINGS: There has been interval placement of a posterior splint stabilizing the comminuted fracture of the distal shaft of the tibia and the oblique fracture of the distal fibula. There remains mild dorsal displacement and lateral displacement with mild lateral angulation and anterior angulation of the distal fracture fragments. IMPRESSION: Status post closed reduction distal tib fib fracture as described above Dictated by: Yg Richter MD 10/23/2020 20:02 Yg Richter MD in [place] 10/23/2020 20:02
[2020-10-23 19:29] LABS: Blood Urea Nitrogen 16 mg/dl (7-17); Creatinine Clearance Estimated 124 mL/min (50-200); Estimated Glomerular Filt Rate 63 ml/min (>60); GFR (African American) 76 ML/MIN (>60)
[2020-10-23 19:30] LABS: Alanine Aminotransferase 25 U/L (12-78); Albumin/Globulin Ratio 1.1 (1.1-1.8); Alkaline Phosphatase 88 U/L (38-126); Anion Gap 13.5 mEq/L (5-15); Aspartate Amino Transferase 47 U/L (14-36); Bilirubin,Total 0.7 mg/dl (0.2-1.3); Calcium 9.5 mg/dl (8.4-10.2); Carbon Dioxide 22 mmol/L (22.0-30.0); Globulin 3.8 g/dL (1.3-3.2); Glucose 108 mg/dl (74-100); Total Protein,Serum 7.8 g/dl (6.3-8.2)
--- NOTE | 2020-10-23 19:35 | PC.NURSE ---
Assisted MD with resetting pt left tib/fib. Pt tolerated well.
--- NOTE | 2020-10-23 19:37 | PC.NURSE ---
aware of glucose
[2020-10-23 19:45] LABS: Lymphocytes % 12 % (10-50); Monocytes % 3 % (2-9); Neutrophils % 85 % (42-76); Platelet Estimate Slight Increase; RBC Morphology Normal; Total Cells Counted 100
--- NOTE | 2020-10-23 20:07 | PC.NURSE ---
pt sitting up eating @ this time
--- NOTE | 2020-10-23 21:31 | PC.NURSE ---
patient up to floor via stretcher.
[2020-10-24] VITALS (40 sets, daily range): BP systolic 142–208; BP diastolic 81–120; PULSE 92–107; RESP 12–22; TEMP 36.8–43; O2SAT 82–97; BMI 36.8
--- NOTE | 2020-10-24 04:18 | PC.NURSE ---
Pt is A&Ox4. Pt has been very anxious this shift and questions everything nursing staff does this shift. Pt has to be reassured countless times by staff the reasoning for any interventions being done this shift. Lung sounds have expiratory wheezing t/o. No cough noted. LLE dressing and wrap remains intact. Pt has c/o of LLE pain x3 this shit and has been medicated per NOV. Pt refused 0030 Herparin does stating, I was just walking around before I got here, I don't need that yet. 22g rt breast PIV remains patent and intact and is currently infusing LR @75 ml/hr. LLE remains elevated on 2 pillows. No other acute changes or complaints at this time.
[2020-10-24 07:14] LABS: Basophils % 0.3 % (0.1-2.0); Eosinophils # 0.2 K/mm3 (0.0-0.4); Hematocrit 41.2 % (37.0-47.0); Hemoglobin 13.3 g/dL (12.2-16.2); Lymphocytes # 1.8 K/mm3 (0.7-4.5); Lymphocytes % 15.6 % (10-50); Mean Corpuscular HGB Conc 32.4 g/dL (31.8-35.4); Mean Corpuscular Hemoglobin 27.4 pg (27.0-31.2); Mean Corpuscular Volume 84.8 fl (81-99); Monocytes # 0.6 K/mm3 (0.1-1.0); Monocytes % 5.4 % (1.7-9.3); Neutrophils % 76.7 % (37.0-80.0); Platelet Count 524 K/mm3 (142-424); Red Blood Count 4.86 M/mm3 (4.20-5.40); Red Cell Distribution Width 14.6 % (11.5-17.5); White Blood Count 11.7 K/mm3 (4.8-10.8)
[2020-10-24 07:24] LABS: Chloride 109 mmol/L (98-107); Potassium 3.6 mmoL/L (3.5-5.1); Sodium 142 mmol/L (136-145)
[2020-10-24 07:27] LABS: Anion Gap 9.6 mEq/L (5-15); Blood Urea Nitrogen 18 mg/dl (7-17); Calcium 9.1 mg/dl (8.4-10.2); Carbon Dioxide 27 mmol/L (22.0-30.0); Creatinine Clearance Estimated 102 mL/min (50-200); Estimated Glomerular Filt Rate 57 ml/min (>60); GFR (African American) 68 ML/MIN (>60); Glucose 112 mg/dl (74-100); Phosphorous 5.5 mg/dl (2.5-4.5)
[2020-10-24 07:28] LABS: Magnesium 1.9 mg/dl (1.6-2.3)
--- NOTE | 2020-10-24 08:07 | HMH.PHAVTE ---
[facility] Pharmacy VTE Monitoring - Patient Demographics Admission date: 10/24/20 Report Date: 10/24/20 Time: 08:07 Allergies/Adverse Reactions: Patient Allergies Penicillins Allergy (Severe, Verified 11/17/18 11:03) Hives gatifloxacin [From TEQUIN] Allergy (Mild, Verified 11/17/18 11:03) ketorolac [From TORADOL] Allergy (Mild, Verified 11/17/18 11:03) aztreonam [AZTREONAM] Allergy (Unknown, Verified 11/17/18 11:03) NA-NAUSEA/VOMITING cefaclor [CEFACLOR] Allergy (Unknown, Verified 11/17/18 11:03) codeine [CODEINE] Allergy (Unknown, Verified 11/17/18 11:03) BLEEDING OF EYES AND NOSE doxycycline [DOXYCYCLINE] Allergy (Unknown, Verified 11/17/18 11:03) levofloxacin [From LEVAQUIN] Allergy (Unknown, Verified 11/17/18 11:03) midazolam [From VERSED] Allergy (Unknown, Verified 11/17/18 11:03) ondansetron [From ZOFRAN ( HYDROCHLORIDE)] Allergy (Unknown, Verified 11/17/18 11:03) sulfamethoxazole [From BACTRIM] Allergy (Unknown, Verified 11/17/18 11:03) trimethoprim [From BACTRIM] Allergy (Unknown, Verified 11/17/18 11:03) tramadol Allergy (Verified 11/17/18 11:03) Height: 1.57 m Weight: 90.7 kg Patient Problems: Current Active Problems Chronic pain (Acute) Obesity (BMI 35.0-39.9 without comorbidity) (Acute) Left ureteral calculus (Acute) Hypertension (Acute) Tibia/fibula fracture (Acute) Fracture of tibial shaft, left, closed (Acute) Fracture of ankle, lateral malleolus, left, closed (Acute) - VTE Risk Labs: VTE Related Lab Results Hgb 13.3 g/dL (12.2-16.2) 10/24/20 06:55 Hct 41.2 % (37.0-47.0) 10/24/20 06:55 Plt Count 524 K/mm3 (142-424) H 10/24/20 06:55 BUN 18 mg/dl (7-17) H 10/24/20 06:20 Creatinine 1.10 mg/dl (0.52-1.04) H 10/24/20 06:20 Estimated Creat Clear 102 mL/min (50-200) 10/24/20 06:20 Was VTE Risk Assessment Performed: Yes VTE Score: 5 VTE Risk Level: Low Risk Clinical Trial Participant: No - Prophylaxis VTE Prophylaxis Ordered?: Yes Types of VTE Prophylaxis: IPCS Knee High
--- NOTE | 2020-10-24 08:30 | HMH.CONS ---
*Admission Date: 10/24/20 *Reason for consult:: Medical management *History of present illness: 35-year-old female with history of fibromyalgia, obesity, recurrent kidney stones, and PTSD presented to the ER after a fall on ice that resulted in a left tib-fib fracture. Patient has been admitted for orthopedic repair. Patient has been seen by Dr. Lovell. Patient will be taken to the OR today. Patient denies loss of consciousness, chest pain, shortness of breath. Patient does suffer from chronic pain. [facility] History I have reviewed the patient's past medical history: Yes 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: Reports:: Anxiety, Asthma, Depression, Gastroesophageal Reflux Disease(GERD), Hyperlipidemia, Hypertension, Kidney Stones, Migraine Denies:: Cancer, Diabetes Mellitus Type 1, Diabetes Mellitus Type 2, Internal Pacemaker, MRSA, Seizures *Have you ever received a pneumonia vaccine?: Yes *Have you received a flu vaccine this season?: Yes Other 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: Reports: Fibromyalgia, Other. Denies: Blood Transfusion Reaction Laterality Cases: Bilateral: Myringotomy (Ear Tubes), Tonsillectomy Other Surgeries: Yes: Cholecystectomy, Hernia Repair, Hysterectomy-Total, Ureter Stent, Other. No: Pacemaker Amputation: No Fractures: No - *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 Last grade of school completed: Some college Smoking Status: Current every day smoker Tobacco Type: smokeless tobacco # Packs/Day (cigarettes): 1 Alcohol Intake: never Substance Use Type: denies use *Occupational Status:: employed Housing: house Household Members: other *Travel in the last 8 weeks: None - Psychiatric History Pschychiatric History:: Reports:: Anxiety, Depression Family Hx:: Unable to obtain, Adopted Review of Systems - Constitutional Denies anorexia, Denies body ache(s), Denies lack of energy, Denies malaise - ENT Denies difficulty swallowing - *Cardiovascular Denies chest pain, Denies chest pain at rest, Denies chest pain with activity - *Respiratory Denies change in phlegm color, Denies chest congestion, Denies cough - *Gastrointestinal Denies abdominal pain, Denies belching, Denies bloating - *Genitourinary Reports abnormal periods - *Musculoskeletal Reports abnormal walking, Reports deformity - *Neurologic Reports abnormal walking, Denies abnormal hearing, Denies seizure-like activity, Denies dizziness, Denies numbness, Denies tingling Meds Home Medications Medication Instructions Recorded Confirmed Type buspirone 30 mg tablet 15 mg PO TIDP PRN tab 10/21/17 10/23/20 History paroxetine HCl 40 mg tablet 60 mg PO DAILY 10/21/17 10/23/20 History Albuterol Sulfate [Ventolin HFA 2 puffs IH Q4-6H PRN 12/20/17 10/23/20 History Inhaler] raNITIdine HCL [Ranitidine HCl] 150 mg PO HSP PRN 12/20/17 10/23/20 History Tizanidine HCl [Zanaflex 4mg 6 mg PO TIDP PRN 03/15/18 10/23/20 History tab] hydrOXYzine pamoate [Hydroxyzine 50 mg PO TID 10/31/18 10/23/20 History Pamoate] Ibuprofen [Ibuprofen 800mg 800 mg PO TID PRN 11/01/18 10/23/20 History Tablet] Gabapentin [Gabapentin 400mg Cap] 800 mg PO TID 05/05/19 10/23/20 History Cefdinir [Omnicef 300mg Capsule] 300 mg PO BID 08/03/20 10/24/20 History Tamsulosin HCl [Flomax 0.4mg 0.4 mg PO HS 08/03/20 10/23/20 History capsule] Allergies Allergy/AdvReac Type Severity Reaction Status Date / Time Penicillins Allergy Severe Hives Verified 11/17/18 11:03 gatifloxacin [From TEQUIN] Allergy Mild Verified 11/17/18 11:03 ketorolac [From TORADOL] Allergy Mild Verified 11/17/18 11:03 aztreonam [AZTREONAM] Allergy Unknown NA-NAUSEA/V Verified 11/17/18 11:03 OMITING cefaclor [CEFACLOR] Allergy Unknown Verified 11/17/18 11:03 codeine [CODEINE] Allergy Unknown BLEEDING Verified 11/17/18 11:03 OF EYES AND NOSE doxycycline [DOXYCYCLINE] Allergy Unknown Verified 11/17/18 11:03 levofloxacin [From LEVAQUIN] Allergy Unknown Verified 11/17/18 11:03 midazolam [From VERSED] Allergy Unknown Verifi
--- NOTE | 2020-10-24 11:49 | P.PN_ITS ---
[facility] Anesthesia Checklist - Patient Identification Patient Identification: Arm Band - Structural Data Planned Operative Procedure/s: left tibia nailing Consent for Planned Operative Procedure(s) Verified: Yes Verified Documents: Surgical Consent - NPO Status Verified Time NPO: 00:00 - Additional verifications Anesthesia Reactions: No Hx Blood Transfusions: No Blood Transfusion Reaction: No - Anesthesia Plan Anesthesia Risk discussed: Yes Anesthesia Plan: Verified ASA Class: III Anesthesia Type: General - Preoperative Comments Pre-Operative Comments: pt refused spinal [facility] History I have reviewed the patient's past medical history: Yes 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: Reports:: Anxiety, Asthma, Depression, Gastroesophageal Reflux Disease(GERD), Hyperlipidemia, Hypertension, Kidney Stones, Migraine Denies:: Cancer, Diabetes Mellitus Type 1, Diabetes Mellitus Type 2, Internal Pacemaker, MRSA, Seizures *Have you ever received a pneumonia vaccine?: Yes *Have you received a flu vaccine this season?: Yes Other 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: Reports: Fibromyalgia, Other. Denies: Blood Transfusion Reaction Anesthesia experience/problems:: multi allergies Laterality Cases: Bilateral: Myringotomy (Ear Tubes), Tonsillectomy Other Surgeries: Yes: Cholecystectomy, Hernia Repair, Hysterectomy-Total, Ureter Stent, Other. No: Pacemaker Amputation: No Fractures: No - *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 Last grade of school completed: Some college Smoking Status: Current every day smoker Tobacco Type: smokeless tobacco # Packs/Day (cigarettes): 1 Alcohol Intake: never Substance Use Type: denies use *Occupational Status:: employed Housing: house Household Members: other *Travel in the last 8 weeks: None - Psychiatric History Pschychiatric History:: Reports:: Anxiety, Depression, Post Traumatic Stress Disorder Family Hx:: Unable to obtain, Adopted
--- NOTE | 2020-10-24 14:54 | XR_ITS ---
PROCEDURE: XR TIBIA FIBULA LT 2V CLINICAL INDICATION: LEFT TIBIA NAILING IN OR COMPARISON: CR XR TIBIA FIBULA LT 2V from 10/23/2020 FINDINGS: Fluoroscopy time: 3 minutes and 15 seconds. Multiple images are submitted during intramedullary kevin placement into the left tibia and lateral bone plate placed at the distal fibula. Final images show good alignment in the AP plane. IMPRESSION: Status post ORIF distal tib fib fracture with C-arm guidance with good alignment Dictated by: Yg Richter MD 10/25/2020 06:59 Yg Richter MD in [place] 10/25/2020 06:59
[2020-10-24 15:51] LABS: Microscopic,Cath URINE MICROSCOPIC (MICROSCOPIC)
[2020-10-24 15:56] LABS: Appearance,Urine/Cath CLEAR (Clear); Bilirubin,Cath Negative (Negative); Blood, Urine/Cath Negative (Negative); Color,Urine/Cath YELLOW (Yellow); Glucose,Urine/Cath (UA) Negative (Negative); Ketones,Urine/Cath Negative (Negative); Leukocyte Esterase,Cath TRACE (Negative); Nitrate,Cath Negative (Negative); Protein,Urine/Cath TRACE (Negative); Specific Gravity, Urine/Cath 1.025 (1.005-1.030); Urobilinogen,Cath 0.2 EU/dl (0.2)
[2020-10-24 16:09] LABS: RBC,Urine/Cath Occasional # /hpf (0-3); Squamous Epithelial Ur./Cath Occasional #/hpf (0-5); Yeast,Urine/Cath 2+
--- NOTE | 2020-10-24 16:25 | SUR.PHASEI ---
1612:Call to Meaghan Barreto CRNA concerning elevated BP after 2 doses of Labetalol 20 mg Q10. New orders for 2x doses of labetalol and hydralazine 5 mg once now. 1615: respiratory at bedside for albuterol breathing treatment.
--- NOTE | 2020-10-24 16:45 | HMH.OPNOTE ---
Date of procedure: 10/24/20 Pre-op Diagnosis:: 1. Closed, displaced fracture shaft tibia, left 2. Closed, displaced fracture lateral malleolus, left ankle Post-op Diagnosis:: Same Procedure performed:: 1. Closed reduction and intramedullary nailing, left tibia 2. Open reduction and internal fixation, left ankle Surgeon:: Duong Lovell MD Csm Consultant(s):: Kaylin Shah CLOTH BOIL OFF MACHINE OPERATOR:: Other (Toney Barreto) Anesthesia: GETA Estimated blood loss (mL): 100 Clinical Note:: Patient is a 35-year-old female who sustained a closed, comminuted, unstable fracture shaft of the left tibia with closed displaced fracture of the lateral malleolus of the left ankle after slipping on ice. Following the injury she developed severe pain in her left leg and left ankle and she could not get up or walk. Evaluation in the ER including x-rays showed a closed displaced, comminuted spiral fracture along with a Coleman C type displaced spiral fracture of the distal fibula. There is no history of any distal tingling or numbness. There is no history of any other injuries. No history of any loss of consciousness, head injury, neck or back pain. Her past medical history includes hypertension, asthma, GERD, anxiety, depression, PTSD, fibromyalgia, chronic pain, recurrent kidney stones and recurrent UTI. Patient is on oral cefdinir 300 mg daily. Past surgical history includes cholecystectomy, hernia repair, total hysterectomy and ureteric stent. She has history of multiple allergies. She is a current everyday smoker and smokes 1 pack of cigarettes a day. The patient was splinted and admitted for surgical management. Please refer to my H&P for full details. Operative findings:: A displaced, comminuted, unstable spiral fracture of the distal third shaft of the left tibia. Also there is a displaced spiral fracture of the lateral malleolus as noted on the preoperative imaging. The inferior tibiofibular syndesmosis noted to be intact with stable and congruent ankle mortise. The tibia was reduced and fixed in a stable fashion with intramedullary nailing. The lateral malleolus fracture was reduced anatomically and fixed with plate and screws. Moderate soft tissue swelling was noted over the distal third of the leg and around the ankle. Operative note:: Prior to surgery the patient was met in the preoperative holding area and positively identified. A physical examination was performed and documented. The operative site was marked and initialed by me. I have again discussed about the diagnosis, natural history and management options. Given the fracture pattern, displacement and shortening, I have recommended a closed/open reduction and internal fixation of the tibial shaft fracture as well as open reduction internal fixation of the lateral malleolus fracture. I have discussed the details of the proposed surgical procedures, risks and benefits and alternatives. We have outlined where the incisions will be on the skin. Risks of surgery discussed include but are not limited to- infection, bleeding, injury to nerves and blood vessels, compartment syndrome, fat embolism, intra-articular knee injury, incisional scar (cosmesis), DVT/PE, malunion, nonunion/delayed union, refracture, knee/ankle stiffness and pain, knee and ankle arthritis, CRPS (complex regional pain syndrome- pain, sensory and temperature changes, swelling and stiffness), painful/prominent hardware, loss of fixation/hardware failure, incomplete relief of pain, incomplete return of function, and likely need for further surgery in future and also the risks of anesthesia including heart attack, stroke, and even . We've discussed how there is a small but real possibility of loss of use of the leg, loss of the limb or loss of life itself. I have also explained how additional surgery may be required if there are any complications or the fractures fails to heal. I have explained the postoperative pain management, recovery and
--- NOTE | 2020-10-24 18:04 | SUR.PHASEI ---
1732: call to Meaghan Barreto CRNA concerning pt. O2 sats. Orders for Romazicon 0.2 mg IV now.
[2020-10-25] VITALS (12 sets, daily range): BP systolic 117–163; BP diastolic 70–97; PULSE 89–107; RESP 14–20; TEMP 36.7–37.1; O2SAT 89–97; BMI 47.5
--- NOTE | 2020-10-25 04:53 | PC.NURSE ---
Pt is A&Ox4 and has c/o pain to LLE 2x, medicated with Tylenol and Oxycodone 1x each and was effective. Pt was lethargic for most of the shift, awoke easily and oriented but fell back asleep quickly. Pt able to move toes to L foot. Peripheral pulses 3+ and LEATHER HEEL BREASTER < 3 sec. Surgical dressing is C/D/I. Pt has been titrated from 50% Ventri mask to 3LPM NC and sats mid 90s. Pt has c/o muscle spams to L knee. LLE elevated on 2 pillows with polar pack behind the knee, ice replenished 2x this shift. Wheezes to R upper lung narvaez noted on auscultation. Pt has used IS several times with encouragement, best @ 750ml. Pt requires assistance and teaching reinforced. NSR on tele. Call light within reach.
--- NOTE | 2020-10-25 07:14 | HMH.ACPN2 ---
Internal Medicine - PN: Subj *Date: 10/25/20 *Time: 07:14 Interval history: Patient underwent surgery yesterday. Postoperatively there was some difficulty maintaining patient's O2 sats that required nonrebreather. However this morning patient has successfully been weaned down to 2 L of oxygen via nasal cannula. Nursing staff is been encouraging incentive spirometry. Exam Vital signs and Labs for Last 24 Hours: Temp Pulse Resp BP Pulse Ox 98.4 F 89 14 148/74 H 94 L 10/25/20 01:38 10/25/20 01:38 10/25/20 01:38 10/25/20 01:38 10/25/20 01:38 Laboratory Results - last 24 hr 10/24/20 06:20: Sodium 142, Potassium 3.6, Chloride 109 H, Carbon Dioxide 27 D, Anion Gap 9.6, BUN 18 H, Creatinine 1.10 H, Estimated Creat Clear 102, Estimated GFR 57 L, Est GFR ( Amer) 68, Glucose 112 H, Calcium 9.1, Phosphorus 5.5 H, Magnesium 1.9 10/24/20 06:55: WBC 11.7 H D, RBC 4.86, Hgb 13.3, Hct 41.2, MCV 84.8, MCH 27.4, MCHC 32.4, RDW 14.6, Plt Count 524 H, MPV 8.0, Neut % (Auto) 76.7, Lymph % (Auto) 15.6, [place] % (Auto) 5.4, Eos % (Auto) 2.0, Baso % (Auto) 0.3, Neut # (Auto) 9.0 H, Lymph # (Auto) 1.8, [place] # (Auto) 0.6, Eos # (Auto) 0.2, Baso # (Auto) 0.0 10/24/20 11:00: Urine Color Yellow, Urine Appearance Clear, Urine pH 6.0, Ur Specific [place] 1.025, Urine Protein Trace, Urine Glucose (UA) Negative, Urine Ketones Negative, Urine Blood Negative, Urine Nitrate Negative, Urine Bilirubin Negative, Urine Urobilinogen 0.2, Ur Leukocyte Esterase Trace, Urine RBC Occasional, Urine WBC 5-10, Ur Squamous Epith Cells Occasional, Urine Bacteria None, Urine Yeast 2+ I & O for Last 24 hours: Intake & Output 10/22/20 10/23/20 10/24/20 02/12/21 11:59 11:59 11:59 11:59 Intake Total 150 / 150 Output Total 1400 / 1400 Balance -1250 / -1250 Weight 199 lb 15.348 oz 258 lb 8 oz Microbiology Reports for the Last 24 Hours: Microbiology 10/24/20 11:00 Urine,Catheterized Urine Culture - Preliminary - Constitutional no acute distress, morbidly obese - *Routine Respiratory Exam Present: CTA bilaterally - *Routine Cardiovascular Exam Present: RRR Assessment and Plan (1) Fracture of tibial shaft, left, closed Start date: 10/23/20 Status: Acute Qualifiers: Encounter type: initial encounter Fracture morphology: spiral Fracture alignment: displaced Qualified Code(s): S82.242A - Displaced spiral fracture of shaft of left tibia, initial encounter for closed fracture Category: Surgical Code(s): S82.202A - Unspecified fracture of shaft of left tibia, initial encounter for closed fracture (2) Fracture of ankle, lateral malleolus, left, closed Start date: 10/23/20 Status: Acute Qualifiers: Encounter type: initial encounter Fracture alignment: displaced Qualified Code(s): S82.62XA - Displaced fracture of lateral malleolus of left fibula, initial encounter for closed fracture Category: Surgical Code(s): S82.62XA - Displaced fracture of lateral malleolus of left fibula, initial encounter for closed fracture (3) Chronic pain Status: Acute Category: Medical Code(s): G89.29 - Other chronic pain (4) Hypertension Status: Acute Qualifiers: Hypertension type: unspecified Qualified Code(s): I10 - Essential (primary) hypertension Category: Medical Code(s): I10 - Essential (primary) hypertension (5) Left ureteral calculus Status: Acute Category: Medical Code(s): N20.1 - Calculus of ureter (6) Obesity (BMI 35.0-39.9 without comorbidity) Status: Acute Category: Medical Code(s): E66.9 - Obesity, unspecified - Assessment and plan all Dx Assessment and Plan for all problems:: Patient is progressing from respiratory standpoint and she does report with prior procedures she is usually had some trouble awakening and is required some extra oxygen. Patient is currently requiring 2 L/min via nasal cannula and will likely be able to be weaned throughout the d
[2020-10-25 07:24] LABS: Chloride 109 mmol/L (98-107); Potassium 3.5 mmoL/L (3.5-5.1); Sodium 140 mmol/L (136-145)
[2020-10-25 07:26] LABS: Blood Urea Nitrogen 18 mg/dl (7-17); Creatinine Clearance Estimated 59 mL/min (50-200); Estimated Glomerular Filt Rate 63 ml/min (>60); GFR (African American) 76 ML/MIN (>60)
[2020-10-25 07:27] LABS: Alanine Aminotransferase 26 U/L (12-78); Albumin Level 3.3 g/dl (3.5-5.0); Albumin/Globulin Ratio 0.9 (1.1-1.8); Alkaline Phosphatase 60 U/L (38-126); Anion Gap 10.5 mEq/L (5-15); Aspartate Amino Transferase 29 U/L (14-36); Bilirubin,Total 0.3 mg/dl (0.2-1.3); Calcium 8.5 mg/dl (8.4-10.2); Carbon Dioxide 24 mmol/L (22.0-30.0); Globulin 3.5 g/dL (1.3-3.2); Glucose 175 mg/dl (74-100); Total Protein,Serum 6.8 g/dl (6.3-8.2)
[2020-10-25 07:33] LABS: Basophils % 0.3 % (0.1-2.0); Eosinophils # 0.1 K/mm3 (0.0-0.4); Lymphocytes # 1.5 K/mm3 (0.7-4.5); Mean Corpuscular Hemoglobin 27.7 pg (27.0-31.2)
[2020-10-25 08:08] LABS: Eosinophils % 0.4 % (0.1-12.0); Hematocrit 37.2 % (37.0-47.0); Lymphocytes % 9.9 % (10-50); Mean Corpuscular HGB Conc 32.8 g/dL (31.8-35.4); Mean Corpuscular Volume 84.4 fl (81-99); Mean Platelet Volume 8.3 fl (7.4-10.4); Monocytes # 1.1 K/mm3 (0.1-1.0); Monocytes % 7.3 % (1.7-9.3); Neutrophils # 12.3 K/mm3 (1.8-7.8); Platelet Count 447 K/mm3 (142-424); Red Cell Distribution Width 14.7 % (11.5-17.5)
[2020-10-25 08:10] LABS: Hemoglobin 12.2 g/dL (12.2-16.2)
[2020-10-25 08:11] LABS: MANUAL DIFFERENTIAL MANUAL DIFFERENTIAL (MANUAL DIFF)
--- NOTE | 2020-10-25 09:50 | HMH.PTEV ---
Physical Therapy Evaluation Rehab PT IP Evaluation Start: 10/24/20 16:10 Freq: ONCE Status: Active Protocol: Document 10/25/20 08:30 PHORNE (Rec: 10/25/20 09:50 PHORNE [id number]) Subjective/History History History 35 yowf adm to [facility] S/P fall with L tib/fib fx, now S/P L tib IMN. Pt reports she is independent with all mobility at baseline. Subjective Subjective Pt c/o increased pain in the R LE and appears to have low tolerance for pain. Rehab PT IP Eval Objective Appearance Patient Behavior Appropriate Patient Orientation Person,Place,Time Difficulty following instructions none Speech Pattern Clear Ambulation Patient Able to Ambulate No Balance Ability to Arise Able, uses arms to help Sitting Balance Steady, safe Standing Balance Steady, wide stance Dynamic Sitting Balance Ability Good Dynamic Standing Balance Ability Fair Transfers Bed Transfer Ability Minimal x 2 (25% assist) Chair Transfer Ability Minimal x 2 (25% assist) Sit to Stand Bed Transfer Ability Minimal x 2 (25% assist) Sit to Stand Chair Transfer Ability Minimal x 2 (25% assist) ROM All Extremities PT ROM Status WFL Abnormal ROM Comment except L ankle NT MMT All Extremities PT MMT WFL Abnormal MMT Grade except 2/5 throughout L LE. Rehab PT IP prob,goals,plan Problems Date of Evaluation: 10/25/20 PT IP Problems Bed Mobility,Transfers,Gait Rehab Potential Rehab Potential Fair Equipment Needs Assistive Devices Rolling / Wheeled Walker, Wheelchair Plan PT Intervention Plan Bed Mobility,Transfers,Gait, Therapeutic Exercise PT Plan Frequency BID Duration LOS Discharge Goals Bed Transfer Ability Minimal x 1 (25% assist) Sit to Stand Chair Transfer Ability Minimal x 1 (25% assist) Ambulation Assistive Device Rolling Walker Ambulation Distance (feet) 5 Discharge Plan PT Discharge Plan Pt low tolerance for pain and obesity will likely make rehab difficult, but she is appropriate to return home with assistance and home health therapy. G -code Required No Eval Complexity Eval Charge Codes 38584 - Moderate Complexity
--- NOTE | 2020-10-25 10:11 | HMH.OTEV ---
OT Inpatient Evaluation Rehab OT IP Evaluation Start: 10/24/20 16:10 Freq: ONCE Status: Complete Protocol: Document 10/25/20 09:[email or web address] (Rec: 10/25/20 10:10 [facility] [id number]) Rehab OT IP Assessment Subjective History Pt is a 35 yo female who was brought into the ER by EMS on 10/23/2020. Pt reported that she slipped on ice and fell, but she felt her leg break before falling. Pt has a L tibia Fx, and a L lateral malleolus Fx which was surgically repaired. 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 Pt did not require AE during ambulation. She did not drive. She reports that there is 1 step into the home, but none inside the house. Pt's past medical hx includes: HTN, asthma, GERD, anxiety, depression, PTSD, fibromyalgia , chronic pain, recurrent kidney stones, recurrent UTI, hyperlipidemia, and migraines. Subjective Pt was alert and oriented x3 upon arrival. Pt was partially reclined in bed upon arrival w/ ice on L knee. Pt scooted self to EOB w/ modA to lift and move L leg. Pt complained of pain in L knee when leg was partially off EOB. Pt continued to scoot to the EOB and bring L leg down to rest on therapist's shoe w/ modA for supporting the L. Pt stood w/ modA and a walker. Pt pivoted and lowered self down in chair w/ modA for suporting the L leg. Pt's feet were elevated in chair and ice returned to knee. Pt complained of pain throughout the session. Pt was left w/ call light and all other needs in reach. Obje
[2020-10-25 10:16] LABS: Lymphocytes % 14 % (10-50); Monocytes % 5 % (2-9); Neutrophils % 81 % (42-76); Platelet Estimate Normal; RBC Morphology Normal; Total Cells Counted 100
--- NOTE | 2020-10-25 12:09 | HMH.ORTHPN ---
Subjective Date: 10/25/20 Time: 10:30 Principal diagnosis: 1. Fractured tibia, left 2. Fracture ankle, left Interval history: Patient is status post intramedullary nailing left tibia and ORIF left ankle, postop day 1.? She is sitting out in the chair and says she is doing well.? Postoperatively, there was some difficulty maintaining patient's O2 sats that required nonrebreather. However, this morning patient has successfully been weaned down to 2 L of oxygen via nasal cannula. Nursing staff has been encouraging her to use incentive spirometer frequently. Patient says she has some pain over the left knee and her is pain is well controlled with as needed medication.? No history of any nausea or vomiting. She says she is eating and drinking well.? No history of any fevers, chills or rigors.? No history of any distal tingling or numbness. PN: Obj Ex Vital signs: Temp Pulse Resp BP Pulse Ox 98.4 F 106 H 16 139/76 95 10/25/20 12:00 10/25/20 12:00 10/25/20 12:00 10/25/20 12:00 10/25/20 12:00 Narrative: Laboratory Results - last 24 hr 10/24/20 11:00: Urine Color Yellow, Urine Appearance Clear, Urine pH 6.0, Ur Specific [place] 1.025, Urine Protein Trace, Urine Glucose (UA) Negative, Urine Ketones Negative, Urine Blood Negative, Urine Nitrate Negative, Urine Bilirubin Negative, Urine Urobilinogen 0.2, Ur Leukocyte Esterase Trace, Urine RBC Occasional, Urine WBC 5-10, Ur Squamous Epith Cells Occasional, Urine Bacteria None, Urine Yeast 2+ 10/25/20 06:30: WBC 15.0 H D, RBC 4.40, Hgb 12.2, Hct 37.2, MCV 84.4, MCH 27.7, MCHC 32.8, RDW 14.7, Plt Count 447 H, MPV 8.3, Neut % (Auto) 82.0 H, Lymph % (Auto) 9.9 L, [place] % (Auto) 7.3, Eos % (Auto) 0.4, Baso % (Auto) 0.3, Neut # (Auto) 12.3 H, Lymph # (Auto) 1.5, [place] # (Auto) 1.1 H, Eos # (Auto) 0.1, Baso # (Auto) 0.0, Total Counted 100, Neutrophils % (Manual) 81 H, Lymphocytes % (Manual) 14, Monocytes % (Manual) 5, Platelet Estimate Normal, RBC Morphology Normal 10/25/20 06:30: Sodium 140, Potassium 3.5, Chloride 109 H, Carbon Dioxide 24, Anion Gap 10.5, BUN 18 H, Creatinine 1.00, Estimated Creat Clear 59, Estimated GFR 63, Est GFR ( Amer) 76, Glucose 175 H, Calcium 8.5, Total Bilirubin 0.3, AST 29 D, ALT 26, Alkaline Phosphatase 60, Total Protein 6.8, Albumin 3.3 L D, Globulin 3.5 H, Albumin/Globulin Ratio 0.9 L Exam General appearance: Drowsy but easily arousable; no acute distress Cardiovascular: regular rate & rhythm, normal peripheral pulses Respiratory: No respiratory distress noted, speaks in full sentences ABD: soft and non-tender Neuro: oriented x 3 Psych: Appropriate mood and affect On examination of the left lower extremity, the long-leg splint is in place and is fitting well.? No soakage or strikethrough noted. Patient demonstrates good range of active and passive toe movements.? Capillary refill is brisk.? Altered sensation noted over the foot/toes. No stretch pain or other signs of compartment syndrome are noted. - Urinary Catheter Management Falk Cath placed during this visit: no Progress Note: A&P (1) Fracture of tibial shaft, left, closed Status: Acute (2) Fracture of ankle, lateral malleolus, left, closed Status: Acute (3) Chronic pain Status: Acute (4) Hypertension Status: Acute (5) Left ureteral calculus Status: Acute (6) Obesity (BMI 35.0-39.9 without comorbidity) Status: Acute Assessment and Plan for All Diagnoses:: I have again reviewed the surgical findings and procedure performed with the patient.? Patient had some respiratory depression following surgery and is gradually improving. She reports that she had similar problems from previous procedures as well. From an orthopedic standpoint she is doing well and the pain is well controlled with as needed medication.? Encouraged her to continue elevation of the left lower extremity and actively mobilize the toes. Continue elevation, regular icing, non-weight bearing mobilizati
--- NOTE | 2020-10-25 13:44 | SW/DCPLANNER ---
SPOKE WITH PATIENT TODAY REGARDING HER DISCHARGE PLANS...PATIENT WAS ADMITTED TO [facility] WITH A LEFT TIB/FIB FX. SHE STATED SHE HAD A FALL ON THE ICE AND FELT HER LEG BREAK.. SHE IS GOING TO NEED HOME HEALTH SERVICES WHEN DISCHARGED WHICH COULD BE OVER THE WEEKEND.. I SPOKE WITH PATIENT AND SHE CHOSE AND SHE IS CURRENTLY AT A NON WEIGHT BEARING STATUS.. WILL HAVE HOME HEALTH TO SEE IF THEY CAN EVALUATE HER AND ASSIST WITH ANY SKILLED NEEDS SHE MAY HAVE... MAY DISCHARGE OVER THE WEEKEND...
--- NOTE | 2020-10-25 17:41 | PC.NURSE ---
PT IS RESTING IN BED. PT TOLERATED SITTING UP IN THE CHAIR ALMOST MOST OF THE SHIFT HOWEVER PT HAS BEEN EXTREMELY DROWSY ALL DAY. PT NEEDS CONSTANT ENCOURAGEMENT TO USE INCENTIVE SPIROMETER. SHOWER AND BED CHANGE THIS SHIFT WHICH TOOK ENCOURAGEMENT AND 3 STAFF TO ASSIST. RECEIVED PAIN MEDICATION AFTER SHOWER. 1300 GABAPENTIN AND VISTARIL WAS HELD DUE TO PT BEING SO DROWSY. O2 SATURATION 94-96% ON 2 L NC. ROOM AIR SATURATION 85-89%. THIS MORNING STATED TO DC PT'S MORPHINE 2 MG AND IF PT HAS PAIN TO JUST GIVE THE PO PAIN MEDICATION BUT DO NOT GIVE IF PT IS DROWSY. PT STATES SHE DOES NOT THINK SHE WILL HAVE ANY ISSUES WITH ADL'S AT HOME B/C THE PEOPLE SHE LIVES WITH STATED THEY WILL HELP HER WITH WHATEVER SHE NEEDS. PT HAS VOIDED X1 SINCE CATHETER WAS DC'D AT 1630. PT HAS REDNESS NOTED UNDER BREAST/ABDOMINAL FOLD. LUNG SOUNDS CLEAR. ABDOMEN SOFT/OBESE WITH HYPOACTIVE BOWEL SOUNDS. NO COMPLAINTS OF ABDOMINAL DISCOMFORT. WILL CONTINUE TO MONITOR.
[2020-10-26] VITALS: BP 140/88; PULSE 97; RESP 16; TEMP 36.8; O2SAT 94
[2020-10-26 04:00] VITALS: BP 146/96; PULSE 105; RESP 16; TEMP 36.9; O2SAT 93
--- NOTE | 2020-10-26 04:28 | PC.NURSE ---
Addendum entered by Mercy Nieves RN 10/26/20 04:44: pt pulls [id number] ml when using IS. awake and eating applesauce at this time and requested pain medication. prn was given per mar order. Original Note: pt has slept most of the shift. no changes from previous assessment. attempted room air twice this shift while pt was sleeping. she remained above 90% for approximately 30 minutes and then would being to slowly desat. O2 was reapplied at 1LNC and o2 sat remained 93-94%. after second attempt o2 was reapplied at 0.5LNC and o2 sat remains at 93%. pt has states some pain at start of shift and prn tylenol was given at that time. pt has slept and no requested pain medication since then. polar pack is applied to effected extremity and is elevated on pillow. iv infiltrated at start of shift and after first attempt to regain access pt requested that we not stick her anymore and requested i contact md to see if it can be dc. I contacted md diabetes education coordinator and was given order to stop iv. pt has no iv access at this time. vss. call light in reach. will continue to monitor
[2020-10-26 04:39] VITALS: RESP 18
[2020-10-26 04:52] VITALS: BMI 47.0
[2020-10-26 08:00] VITALS: BP 134/76; PULSE 114; RESP 16; TEMP 36.7; O2SAT 93
--- NOTE | 2020-10-26 08:03 | HMH.ACPN2 ---
Internal Medicine - PN: Subj *Date: 10/26/20 *Time: 08:03 Interval history: Patient participated with therapy yesterday and sat in a chair. She has been weaned off oxygen overnight. She reports pain in the knee. Exam Vital signs and Labs for Last 24 Hours: Temp Pulse Resp BP Pulse Ox 98.4 F 105 H 18 146/96 H 93 L 10/26/20 04:00 10/26/20 04:00 10/26/20 04:39 10/26/20 04:00 10/26/20 04:00 Laboratory Results - last 24 hr 10/24/20 11:00: Urine Color Yellow, Urine Appearance Clear, Urine pH 6.0, Ur Specific [place] 1.025, Urine Protein Trace, Urine Glucose (UA) Negative, Urine Ketones Negative, Urine Blood Negative, Urine Nitrate Negative, Urine Bilirubin Negative, Urine Urobilinogen 0.2, Ur Leukocyte Esterase Trace, Urine RBC Occasional, Urine WBC 5-10, Ur Squamous Epith Cells Occasional, Urine Bacteria None, Urine Yeast 2+ 10/25/20 06:30: WBC 15.0 H D, RBC 4.40, Hgb 12.2, Hct 37.2, MCV 84.4, MCH 27.7, MCHC 32.8, RDW 14.7, Plt Count 447 H, MPV 8.3, Neut % (Auto) 82.0 H, Lymph % (Auto) 9.9 L, [place] % (Auto) 7.3, Eos % (Auto) 0.4, Baso % (Auto) 0.3, Neut # (Auto) 12.3 H, Lymph # (Auto) 1.5, [place] # (Auto) 1.1 H, Eos # (Auto) 0.1, Baso # (Auto) 0.0, Total Counted 100, Neutrophils % (Manual) 81 H, Lymphocytes % (Manual) 14, Monocytes % (Manual) 5, Platelet Estimate Normal, RBC Morphology Normal I & O for Last 24 hours: Intake & Output 10/23/20 10/24/20 10/25/20 10/26/20 11:59 11:59 11:59 11:59 Intake Total 510 / 510 759 / 759 Output Total 1400 / 1400 400 / 400 Balance -890 / -890 359 / 359 Weight 199 lb 15.348 oz 258 lb 8 oz 255 lb 9 oz Microbiology Reports for the Last 24 Hours: Microbiology 10/24/20 11:00 Urine,Catheterized Urine Culture - Final Yeast - Constitutional no acute distress - *Routine Respiratory Exam Present: CTA bilaterally - *Routine Cardiovascular Exam Present: RRR Assessment and Plan (1) Fracture of tibial shaft, left, closed Start date: 10/23/20 Status: Acute Qualifiers: Encounter type: initial encounter Fracture morphology: spiral Fracture alignment: displaced Qualified Code(s): S82.242A - Displaced spiral fracture of shaft of left tibia, initial encounter for closed fracture Category: Surgical Code(s): S82.202A - Unspecified fracture of shaft of left tibia, initial encounter for closed fracture (2) Fracture of ankle, lateral malleolus, left, closed Start date: 10/23/20 Status: Acute Qualifiers: Encounter type: initial encounter Fracture alignment: displaced Qualified Code(s): S82.62XA - Displaced fracture of lateral malleolus of left fibula, initial encounter for closed fracture Category: Surgical Code(s): S82.62XA - Displaced fracture of lateral malleolus of left fibula, initial encounter for closed fracture (3) Chronic pain Status: Acute Category: Medical Code(s): G89.29 - Other chronic pain (4) Hypertension Status: Acute Qualifiers: Hypertension type: unspecified Qualified Code(s): I10 - Essential (primary) hypertension Category: Medical Code(s): I10 - Essential (primary) hypertension (5) Left ureteral calculus Status: Acute Category: Medical Code(s): N20.1 - Calculus of ureter (6) Obesity (BMI 35.0-39.9 without comorbidity) Status: Acute Category: Medical Code(s): E66.9 - Obesity, unspecified - Assessment and plan all Dx Assessment and Plan for all problems:: Medically patient is stable and can be discharged. Care management will make a home health referral.
--- NOTE | 2020-10-26 12:54 | HMH.ORTHPN ---
Subjective Date: 10/26/20 Time: 11:30 Principal diagnosis: 1. Fractured tibia, left 2. Fracture ankle, left Interval history: The patient is doing well this morning, no acute events reported overnight. She has been weaned off of supplemental oxygen overnight and is now maintaining good O2 sats on room air. She says that she continues to experience pain in the left knee and tibia but that this is tolerable with pain medication. She has been medically cleared for discharge by Dr. Tesfaye. PN: Obj Ex Vital signs: Temp Pulse Resp BP Pulse Ox 98.1 F 114 H 16 134/76 93 L 10/26/20 08:00 10/26/20 08:00 10/26/20 08:00 10/26/20 08:00 10/26/20 08:00 - Constitutional no acute distress - Routine HEENT Exam Head: Present: normocephalic Eye: Present: EOMI ENT: Present: mucous membranes moist - Routine Neck Exam Present: trachea midline - Routine Respiratory Exam Absent: respiratory distress, wheezes - Routine Cardiovascular Exam Present: RRR - Routine Abdominal Exam Present: soft. Absent: tenderness - Routine Extremities Exam Comments: splint intact LLE toes pink, warm, sensation intact; wiggles toes polar care device in place L leg dressings LLE c/d/i, no strikethrough - Routine Skin Exam Present: warm - Routine Neurological Exam Present: alert, oriented X3, moving all extremities, normal tone, vision grossly intact, hearing grossly intact. Absent: sensory deficit, motor deficit, altered mental status - Routine Psychiatric Exam Present: normal affect - Urinary Catheter Management Falk Cath placed during this visit: no Progress Note: A&P (1) Fracture of tibial shaft, left, closed Status: Acute (2) Fracture of ankle, lateral malleolus, left, closed Status: Acute (3) Chronic pain Status: Acute (4) Hypertension Status: Acute (5) Left ureteral calculus Status: Acute (6) Obesity (BMI 35.0-39.9 without comorbidity) Status: Acute Assessment and Plan for All Diagnoses:: 35yo F POD 2 s/p IMN L tibia + ORIF fibula -- up as tolerated with assist/walker, NWB LLE -- do not remove splint -- keep LLE elevated and apply ice frequently with polar care device -- will d/c today with Rx for pain medication and aspirin, f/u with Dr. Lovell 10/29/20
--- NOTE | 2020-10-26 12:58 | HMH.DCSUM ---
General - General Admission date:: 10/23/20 Discharge date: 10/26/20 HPI HPI: Patient is a 35-year-old female presented to the ER with EMS complaining of left leg and left ankle pain. Patient was seen in the ER for orthopedic consultation; patient's friend is by her bedside.? She is giving a history of injury to her left leg after slipping on ice. She says she felt the leg break before she fell to the ground. Following the injury she developed severe pain in her left leg and left ankle and she could not get up or walk.? Following the injury she was brought to the [facility] ER where evaluation including x-rays showed a closed, displaced fracture shaft of left distal tibia with closed displaced fracture of the lateral malleolus, left ankle. She is reporting pain in the left lower leg and left ankle. The pain is worse with any attempted movements of the extremity.? There is no history of any distal tingling or numbness.? She is not complaining of pain anywhere else.? No history of any loss of consciousness, head injury, neck or back pain.? Her past medical history includes hypertension, asthma, GERD, anxiety, depression, PTSD, fibromyalgia, chronic pain, recurrent kidney stones and recurrent UTI. Patient is on oral cefdinir 300 mg daily. Past surgical history includes cholecystectomy, hernia repair, total hysterectomy and ureteric stent. She has history of multiple allergies. She is a current everyday smoker and smokes 1 pack of cigarettes a day. 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 Hospital Course Hospital Course: The patient underwent intramedullary nail of the left tibia with open reduction internal fixation of the distal fibula on 10/24/2020 without complication. Postoperatively she had difficulty maintaining adequate oxygen saturation on room air and required supplemental O2 via nasal cannula. She remained admitted for monitoring due to desaturation, and by the morning of postoperative day 2 she had been weaned off of oxygen and was maintaining good sats on room air. Pain was controlled with oral medication and she was medically appropriate for discharge home. She was discharged home on 10/26/2020 with follow-up with Dr. Lovell next week. Objective Vital signs: Temp Pulse Resp BP Pulse Ox 98.1 F 114 H 16 134/76 93 L 10/26/20 08:00 10/26/20 08:00 10/26/20 08:00 10/26/20 08:00 10/26/20 08:00 no acute distress - *Routine HEENT Exam Head: Present: normocephalic Eye: Present: EOMI ENT: Present: mucous membranes moist - *Routine Neck Exam Present: trachea midline - *Routine Respiratory Exam Absent: respiratory distress, wheezes - *Routine Cardiovascular Exam Present: RRR - *Routine Abdominal Exam Present: soft. Absent: tenderness - *Routine Extremities Exam Comments: splint intact LLE toes pink, warm, sensation intact; wiggles toes polar care device in place L leg dressings LLE c/d/i, no strikethrough - *Routine Skin Exam Present: warm - *Routine Neurological Exam Present: alert, oriented X3, moving all extremities, normal tone, vision grossly intact, hearing grossly intact, normal speech. Absent: sensory deficit, motor deficit, altered mental status Results Completed studies during hospitalization [Text1]: Laboratory Results - last 48 hr 10/24/20 10/25/20 10/25/20 11:00 06:30 06:30 WBC 15.0 H D RBC 4.40 Hgb 12.2 Hct 37.2 MCV 84.4 MCH 27.7 MCHC 32.8 RDW 14.7 Plt Count 447 H MPV 8.3 Neut % (Auto) 82.0 H Lymph % (Auto) 9.9 L [place] % (Auto) 7.3 Eos % (Auto) 0.4 Baso % (Auto) 0.3 Neut # (Auto) 12.3 H Lymph # (Auto) 1.5 [place] # (Auto) 1.1 H Eos # (Auto) 0.1 Baso # (Auto) 0.0 Total Counted 100 Neutrophils % (Manual) 81 H Lymphocytes % (Manual) 14 Monocytes % (Manual) 5 Platelet Estimate Normal RBC Morphology Normal Sodium 140 Potassium 3.5 Chloride 109 H Carbon Dioxide 24 Anion
--- NOTE | 2020-10-26 15:47 | PC.NURSE ---
patient voiced multiple concerns about getting home and need for a wheelchair. contacted case management and worked with them. patient was given crutches for assistance to get in to the house, and [employer] will be delivering a wheelchair to the patient but it would be two hours. since patient got crutches she decided to go on home so family did not have to wait longer. [employer] contacted and will deliver to where she is
--- NOTE | 2020-10-26 15:56 | PC.NURSE ---
Pt address is [address] [place] [address], [place] [address]
--- NOTE | 2020-10-28 12:02 | PC.NURSE ---
PT WILL NEED A WHEELCHAIR RATHER THAN A WALKER DUE TO WEIGHT BEARING STATUS.
== END 2020-10-26 15:52 | disposition home or self-care (01) ==
LOC: ER 16:23 → 2ND 16:52
PROVIDERS: Admitting Provider Orthopaedic Surgery; Emergency Provider Family Medicine; PCP Nurse Practitioner Family; Visit Provider Orthopaedic Surgery
PROC: (CPT 27792; principal; 2020-10-24 10:45)
DX: S82.242A Displaced spiral fracture of shaft of left tibia, initial encounter for closed fracture (principal); W00.0XXA Fall on same level due to ice and snow, initial encounter; S82.62XA Displaced fracture of lateral malleolus of left fibula, initial encounter for closed fracture; Z72.0 Tobacco use; I10 Essential (primary) hypertension; E66.9 Obesity, unspecified; Z68.42 Body mass index [BMI] 45.0-49.9, adult; G89.29 Other chronic pain; Z79.899 Other long term (current) drug therapy; Z79.51 Long term (current) use of inhaled steroids
CPT/HCPCS: 27792; 27759; 29405; 36415; 73590; 73600; 76000; 80048; 80053; 81001; 83735; 84100; 85007; 85025; 87086; 87088; 96374; 96375; 97110; 97162; 97166; 97530; 99152; 99285; C1713; C1751; C1769; C1776; G0378; J0131; J0330; J2405; J3370; U0003

== ENCOUNTER → 2020-11-05 13:53 | Outpatient (CLI) | payer OTHER, SELFPAY ==
--- NOTE | 2020-11-05 14:00 | XR_ITS ---
PROCEDURE: XR TIBIA FIBULA LT 2V CLINICAL INDICATION: s/p ORIF left ankle; closed tibia nailing Follow-up surgery COMPARISON: CR XR TIBIA FIBULA LT 2V from 10/23/2020 CR XR TIBIA FIBULA LT 2V from 10/23/2020 FINDINGS: There is a cast in place. Long intramedullary kevin is present stabilizing distal tibial fracture with good alignment. Lateral fibular bone plate is also present with good alignment of the distal fibular fracture. Proximal mid aspect of the tibia and fibula have an unremarkable appearance. IMPRESSION: Good alignment status post ORIF distal tib fib with cast in place Dictated by: Yg Richter MD 11/05/2020 15:06 Yg Richter MD in [place] 11/05/2020 15:06
--- NOTE | 2020-11-05 14:00 | XR_ITS ---
PROCEDURE: XR ANKLE LT MIN 3V CLINICAL INDICATION: s/p ORIF left ankle, closed tibia nailing COMPARISON: CR ANKR3 ANKLE-RT-3 VIEWS from 02/13/2016 CR ANKL3 ANKLE-LT-3 VIEWS from 04/30/2016 CR ANKCMRT XR ankle RT min 3V from 08/30/2018 CR XR ANKLE LT 2V from 10/23/2020 FINDINGS: There is a cast in place. Long intramedullary kevin is present stabilizing distal tibial fracture with good alignment. Lateral fibular bone plate is also present with good alignment of the distal fibular fracture. IMPRESSION: Good alignment status post ORIF distal tib fib fracture. Dictated by: Yg Richter MD 11/05/2020 15:07 Yg Richter MD in [place] 11/05/2020 15:07
== END ==
PROVIDERS: PCP Nurse Practitioner Family; Visit Provider Orthopaedic Surgery
DX: S82.90XA Unspecified fracture of unspecified lower leg, initial encounter for closed fracture (principal); Z87.81 Personal history of (healed) traumatic fracture; Z98.890 Other specified postprocedural states
CPT/HCPCS: 73590; 73610

== ENCOUNTER 2020-11-10 12:09 | Emergency (ER) | payer OTHER, SELFPAY ==
[2020-11-10 12:10] VITALS: PULSE 84; RESP 16; TEMP 36.8; O2SAT 98; BMI 33.3
[2020-11-10 12:13] VITALS: RESP 16; TEMP 36.8; O2SAT 98; BMI 36.6
--- NOTE | 2020-11-10 12:27 | PC.NURSE ---
PATIENT SENT TO ER PER MARINO SCOTT APRN FOR FURTHER EVALUATION
--- NOTE | 2020-11-10 12:30 | HMH.EDGENADL ---
ED Disposition Clinical Impression: Cast discomfort, Tight cast Disposition: Home, Self-Care Condition on Discharge: Good Additional Instructions: Call Dr. Lovell tomorrow for follow-up Prescriptions: Hydrocod/Acet 5/325 mg [Brenton 5/325mg tablet] 1 tab PO Q6HP PRN #10 tab PRN Reason: Pain Transmission Status: Received by [facility] Referrals: Jojo Whyte APRN [Primary Care Provider] - - Critical Care Critical Care Time: No Attestation: On 11/10/20, the high probability of a clinically significant, sudden or life threatening deterioration of the following system(s) required my full and direct attention, intervention and personal management. The time I documented below is in addition to time spent performing reported procedures but includes the following listed in this critical care notation. Medical Decision Making - Medical Records Medical records reviewed: Yes: I reviewed the patient's medical records. MR Comment: reviewd d/c summary and recent office visit of Dr. Lovell. - Olu Inquiry Pt receiving controlled substance: Yes Olu was queried for this patient: Yes Risks and benefits of using a controlled substance: were not discussed with pt by me Vital Signs: 11/10/20 12:10 11/10/20 12:13 11/10/20 13:27 Temperature 98.2 F 98.2 F 98.2 F Temperature Source Oral Oral Oral Pulse Rate 84 Pulse Rate [Right] 84 Respiratory Rate 16 16 16 Blood Pressure 132/70 Blood Pressure Source Automatic Cuff Blood Pressure Position Sitting 02 Sat by Pulse Oximetry 98 98 Oxygen Delivery Method Room Air Room Air Room Air - Physician Consults Physician Consulted: Dr. Landon Time: 12:45 Reason -: Orthopedic Eval/Care Comment/Response: Requests that the cast be bivalved and Jah wrap applied over the top. General Adult HPI - General Chief complaint: Recheck/Abnormal Lab/Rx Stated complaint: [id number] cast on left leg feels too tight Time Seen by Provider: 11/10/20 12:30 Mode of Arrival: Wheelchair Source of Information: Patient Limitations: No Limitations Description of Symptoms (Recalled from ER Triage Doc. by RN): pt advises she thinks her cast is too tight - History of Present Illness HPI narrative: The patient complains of an orthopedic cast being too tight. She underwent intramedullary nail with open reduction and internal fixation of the left fibula on 10/24/[address] Lovell. She had a splint on afterwards. On 11/05/2020 she had her geremias removed and had a cast applied. For the past 2 days the cast has become too tight. She complains of increased pain from the tight cast as well as tingling of the tops of her toes. She has tried icing and elevating without improvement. No fever. No shortness of breath or chest pain. She is on Brenton 5 mg for pain. She has 2 pills left. - Related Data Home Medications Medication Instructions Recorded Confirmed buspirone 30 mg tablet 15 mg PO TIDP PRN tab 10/21/17 11/05/20 paroxetine HCl 40 mg tablet 60 mg PO DAILY 10/21/17 11/05/20 Albuterol Sulfate [Ventolin HFA 2 puffs IH Q4-6H PRN 12/20/17 11/05/20 Inhaler] Tizanidine HCl [Zanaflex 4mg 6 mg PO TIDP PRN 03/15/18 11/05/20 tab] hydrOXYzine pamoate [Hydroxyzine 50 mg PO TID 10/31/18 11/05/20 Pamoate] Gabapentin [Gabapentin 400mg Cap] 800 mg PO TID 05/05/19 11/05/20 Cefdinir [Omnicef 300mg Capsule] 300 mg PO BID 08/03/20 11/05/20 Tamsulosin HCl [Flomax 0.4mg 0.4 mg PO HS 08/03/20 11/05/20 capsule] Previous Rx's Medication Instructions Recorded Acetaminophen [Acetaminophen 325mg 650 mg PO Q4HP PRN tab 10/26/20 tab] Aspirin [Aspirin 325mg Tab] 325 mg PO DAILY 30 Days #30 tab 10/26/20 Famotidine [Pepcid 20mg Tablet] 20 mg PO HSP PRN #30 tab 10/26/20 Nicotine [Nicoderm 21mg/24hr 21 mg TD DAILYP PRN #30 patch.td24 10/26/20 patch] Oxycodone HCl [OxyIR 5mg tablet] 5 - 10 mg PO Q6HP PRN 7 Days #28 10/26/20 tab hydrocodone 5 mg-ac
--- NOTE | 2020-11-10 12:41 | PC.NURSE ---
speaking with Dr. Landon
--- NOTE | 2020-11-10 12:55 | PC.NURSE ---
Dr. Salvador split cast at the top. Pt had instant relief.
[2020-11-10 13:27] VITALS: BP 132/70; PULSE 84; RESP 16; TEMP 36.8; O2SAT 98
== END 2020-11-10 13:28 | disposition home or self-care (01) ==
LOC: UTC 12:17 → ER 12:24
PROVIDERS: Emergency Provider Emergency Medicine; PCP Nurse Practitioner Family
DX: M79.89 Other specified soft tissue disorders (principal); S82.202D Unspecified fracture of shaft of left tibia, subsequent encounter for closed fracture with routine healing; F41.8 Other specified anxiety disorders; K21.9 Gastro-esophageal reflux disease without esophagitis; E78.5 Hyperlipidemia, unspecified; I10 Essential (primary) hypertension; F17.210 Nicotine dependence, cigarettes, uncomplicated
CPT/HCPCS: 99203; G0463

== ENCOUNTER → 2020-11-13 14:10 | Outpatient (CLI) | payer OTHER, SELFPAY ==
--- NOTE | 2020-11-13 14:18 | XR_ITS ---
PROCEDURE: XR ANKLE LT MIN 3V CLINICAL INDICATION: sp ORIF lt ankle, out of cast Follow-up fracture COMPARISON: CR ANKL3 ANKLE-LT-3 VIEWS from 04/30/2016 CR ANKCMRT XR ankle RT min 3V from 08/30/2018 CR XR ANKLE LT 2V from 10/23/2020 CR XR ANKLE LT MIN 3V from 11/05/2020 CR XR TIBIA FIBULA LT 2V from 11/13/2020 FINDINGS: The cast has been removed. Status post ORIF distal tibia and fibular fractures with good alignment. Callus formation is developing at the tibial fracture. The proximal mid tib fib show good alignment with an intramedullary kevin within the entire length of the tibia. IMPRESSION: Status post cast removal with good alignment with healing tib fib fracture status post ORIF Dictated by: Yg Richter MD 11/13/2020 16:30 Yg Richter MD in [place] 11/13/2020 16:30
--- NOTE | 2020-11-13 15:19 | CA_ITS ---
APPROVED REPORT Left Lower Extremity Venous Study for DVT. Edge Sander: BEATRIS Indications Lower Extremity Pain: Left Lower Extremity Edema: Left RULE OUT FOR BLOOD CLOT, Patient broke her left ankle and leg with surgery 10/24/20. Pain and edema today after cast removed this past weekend. Patient states she has taken 325 mg ASA daily since surgery. Risk Factors Immobility Obesity Post OP Vein Imaging CFV (L): compressive, spontaneous, phasic, augmentation FEM (L): compressive, spontaneous, phasic, augmentation POP (L): compressive, spontaneous, phasic, augmentation PTV (L): Thrombus, Non-Compressible GSV (L): compressive, spontaneous, phasic, augmentation SSV (L): Not Visualized Peroneals (L):Not Visualized GAS (L): Not Visualized Findings Acute DVT seen in the left PTV. No SVT seen in LLE. Conclusion Acute DVT seen in the left PTV. No SVT seen in LLE. Critical Notification Critical Value: Yes Date: 11/13/2020 Time: 16:02 Physician Name: Dr. Lovell Report Read Back Electronically signed by : Yg Richter MD 11/14/2020 19:01:30
== END ==
PROVIDERS: PCP Nurse Practitioner Family; Visit Provider Orthopaedic Surgery
DX: Z09 Encounter for follow-up examination after completed treatment for conditions other than malignant neoplasm (principal); S82.242D Displaced spiral fracture of shaft of left tibia, subsequent encounter for closed fracture with routine healing; S82.62XA Displaced fracture of lateral malleolus of left fibula, initial encounter for closed fracture
CPT/HCPCS: 73590; 73610; 93971; 97760

== ENCOUNTER 2020-11-17 15:49 | Emergency (ER) | payer OTHER, SELFPAY ==
[2020-11-17 15:49] VITALS: BP 167/81; BP 170/116; PULSE 117; PULSE 93; RESP 17; RESP 18; TEMP 36.9; O2SAT 97; O2SAT 99; BMI 45.5
--- NOTE | 2020-11-17 15:53 | HMH.EDGENADL ---
ED Disposition Clinical Impression: Kidney stone Disposition: Home, Self-Care Condition on Discharge: Good Additional Instructions: Call Dr. Acosta's office tomorrow to make a follow-up appointment within the next several days. Take antibiotic as prescribed and nausea medicine as needed. Continue taking your prescribed oxycodone for pain. Do not operate heavy machinery or drink alcohol while taking previously prescribed pain medication. Return immediately to our emergency department if intractable nausea/vomiting, worsening pain, fever/chills, concern for dehydration, generalized malaise, or other new concerning symptoms. Prescriptions: Cefdinir [Omnicef 300mg Capsule] 300 mg PO BID #20 cap Prescription Printed Promethazine HCl [Phenergan 25mg tab] 25 mg PO Q6H PRN #12 tab PRN Reason: Nausea And Vomiting Prescription Printed Referrals: Jojo Whyte APRN [Primary Care Provider] - Orlando Acosta MD [Staff Physician] - - Critical Care Critical Care Time: No Attestation: On , the high probability of a clinically significant, sudden or life threatening deterioration of the following system(s) required my full and direct attention, intervention and personal management. The time I documented below is in addition to time spent performing reported procedures but includes the following listed in this critical care notation. Medical Decision Making - Medical Records Medical records reviewed: Yes: I reviewed the patient's medical records. - Olu Inquiry Pt receiving controlled substance: No Vital Signs: 11/17/20 15:49 11/17/20 16:49 11/17/20 18:30 Temperature 98.4 F Temperature Source Oral Pulse Rate [Left Radial] 93 H 93 H 91 H Respiratory Rate 17 18 18 Blood Pressure [Left Arm] 167/81 H 172/71 H 174/81 H Blood Pressure Mean [Left Arm] 109 104 112 Blood Pressure Source [Left Arm] Automatic Cuff Blood Pressure Position [Left Arm] Sitting 02 Sat by Pulse Oximetry 99 98 98 Oxygen Delivery Method Room Air - Lab Data Lab Results 11/17/20 16:20: Urine Color Yellow, Urine Appearance Sl cloudy, Urine pH 6.5, Ur Specific Jbphh 1.025, Urine Protein Trace, Urine Glucose (UA) Negative, Urine Ketones Negative, Urine Blood 2+, Urine Nitrate Negative, Urine Bilirubin Negative, Urine Urobilinogen 0.2, Ur Leukocyte Esterase 2+ A, Urine RBC 10-20, Urine WBC 10-20, Ur Squamous Epith Cells 20-50, Urine Bacteria Trace 11/17/20 16:20: Urine HCG, Qual Negative 11/17/20 16:22: WBC 12.0 H, RBC 4.79, Hgb 14.2, Hct 40.6, MCV 84.8, MCH 29.7, MCHC 35.0, RDW 14.7, Plt Count 423, MPV 7.9, Neut % (Auto) 68.1, Lymph % (Auto) 20.5, [place] % (Auto) 5.4, Eos % (Auto) 5.4, Baso % (Auto) 0.6, Neut # (Auto) 8.1 H, Lymph # (Auto) 2.5, [place] # (Auto) 0.6, Eos # (Auto) 0.7 H, Baso # (Auto) 0.1 11/17/20 17:22: Sodium 141, Potassium 4.4, Chloride 105, Carbon Dioxide 28, Anion Gap 12.4, BUN 20 H, Creatinine 1.20 H, Estimated Creat Clear 52, Estimated GFR 51 L, Est GFR ( Amer) 62, Glucose 106 H, Calcium 9.7, Total Bilirubin 0.4, AST 27, ALT 20, Alkaline Phosphatase 85, Total Protein 7.9, Albumin 4.3, Globulin 3.6 H, Albumin/Globulin Ratio 1.2, Lipase 192 Result diagrams: 11/17/20 16:22 11/17/20 17:22 Orders (Tests/Meds): ED MEDICATIONS Generic Name Dose Route Start Last Admin Trade Name Freq PRN Reason Stop Dose Admin Lactated Ringer's 1,000 mls @ 999 mls/hr 11/17/20 16:15 11/17/20 18:07 Lactated Ringer's 1000 Ml Bag IV 11/17/20 17:15 999 mls/hr .Q1H1M JUANA Administration Ceftriaxone Sodium 2 gm/ 100 mls @ 200 mls/hr 11/17/20 18:45 11/17/20 18:53 Sodium Chloride IV 11/17/20 19:14 200 mls/hr ONCE ONE Administration Protocol Discontinued Medications Generic Name Dose Route Start Last Admin Trade Name Freq PRN Reason Stop Dose Admin Morphine Sulfate 4 mg 11/17/20 18:22 11/17/20 18:27 Morphine 4mg/Ml Syringe IV 11/17/20 18:23 4 mg ONCE ONE Administration Ondansetron HCl 4
--- NOTE | 2020-11-17 16:08 | CT_ITS ---
PROCEDURE: CT ABDOMEN PELVIS WO CON CLINICAL INDICATION: L flank pain h/o stones requiring intervention COMPARISON: CT CT ABDOMEN PELVIS WO CON from 08/03/2020 TECHNIQUE: Axial images obtained with sagittal and coronal reformats. All CT scans at the facility use one or more dose reduction, viz: automated exposure control, ma/kV adjustment per patient size (including targeted exams where dose is matched to indication, i.e. head), or iterative reconstruction technique. FINDINGS: LOWER THORAX: No acute finding ABDOMEN & PELVIS: Prior cholecystectomy. The liver, spleen adrenal glands, and pancreas have an unremarkable unenhanced appearance. Severe left-sided hydronephrosis secondary to a six mm stone in the left UPJ. Small cluster of stones is present in the lower pole of the left kidney. No distal ureteral calculi. Colonic diverticulosis. No evidence of diverticulitis. No evidence of appendicitis. No intestinal obstruction or free air. Prior hysterectomy. No acute bony anomalies. Scattered small nodes are present in the inguinal area. IMPRESSION: 6 mm left ureteropelvic junction stone with moderate to severe left-sided hydronephrosis and left nephrolithiasis. Dictated by: Yg Richter MD 11/18/2020 07:33 Yg Richter MD in [place] 11/18/2020 07:33
[2020-11-17 16:25] LABS: Microscopic, Urine URINE MICROSCOPIC (MICROSCOPIC)
[2020-11-17 16:27] LABS: Appearance,Urine SL CLOUDY (Clear); Bilirubin,Urine Negative (Negative); Blood, Urine 2+ (Negative); Color,Urine YELLOW (Yellow); Glucose,Urine (UA) Negative (Negative); Ketones,Urine Negative (Negative); Leukocyte Esterase,Urine 2+ (Negative); Nitrate,Urine Negative (Negative); PH,Urine 6.5 (5.0-8.5); Protein,Urine TRACE (Negative); Specific Gravity, Urine 1.025 (1.005-1.030); Urobilinogen,Urine 0.2 EU/dl (0.2)
--- NOTE | 2020-11-17 16:28 | PC.NURSE ---
ATTEMPTED IV 20-G 2X. OBTAINED LABS BUT DID NOT ESTABLISH IV ACCESS. MADE AWARE AND HE STATED TO NOT ATTEMPT AGAIN AT THIS TIME
[2020-11-17 16:29] LABS: Urine Pregnancy, HCG Qual. Negative (Negative)
[2020-11-17 16:36] LABS: Bacteria,Urine Trace /lpf; Squamous Epithelial Cell,Urine 20-50 #/hpf (0-5)
[2020-11-17 16:37] LABS: Basophils # 0.1 K/mm3 (0-0.2); Basophils % 0.6 % (0.1-2.0); Eosinophils # 0.7 K/mm3 (0.0-0.4); Eosinophils % 5.4 % (0.1-12.0); Hematocrit 40.6 % (37.0-47.0); Hemoglobin 14.2 g/dL (12.2-16.2); Lymphocytes # 2.5 K/mm3 (0.7-4.5); Lymphocytes % 20.5 % (10-50); Mean Corpuscular Hemoglobin 29.7 pg (27.0-31.2); Mean Corpuscular Volume 84.8 fl (81-99); Mean Platelet Volume 7.9 fl (7.4-10.4); Monocytes # 0.6 K/mm3 (0.1-1.0); Monocytes % 5.4 % (1.7-9.3); Neutrophils # 8.1 K/mm3 (1.8-7.8); Neutrophils % 68.1 % (37.0-80.0); Platelet Count 423 K/mm3 (142-424); Red Blood Count 4.79 M/mm3 (4.20-5.40); Red Cell Distribution Width 14.7 % (11.5-17.5)
[2020-11-17 16:49] VITALS: BP 172/71; PULSE 93; RESP 18; O2SAT 98
--- NOTE | 2020-11-17 16:49 | PC.NURSE ---
MD AT BEDSIDE AT THIS TIME ATTEMPTING AN ULTRASOUND GUIDED IV
--- NOTE | 2020-11-17 16:53 | INFXCTL.NOTE ---
PT GONE FOR CT AT THIS TIME
--- NOTE | 2020-11-17 16:55 | PC.NURSE ---
PT GONE TO CT DURING THE TIME OF THIS VITAL RECEHCK
--- NOTE | 2020-11-17 17:16 | PC.NURSE ---
v/s delayed due to MD attempting to insert IV
[2020-11-17 17:36] LABS: Chloride 105 mmol/L (98-107); Potassium 4.4 mmoL/L (3.5-5.1); Sodium 141 mmol/L (136-145)
[2020-11-17 17:39] LABS: Alanine Aminotransferase 20 U/L (12-78); Albumin Level 4.3 g/dl (3.5-5.0); Albumin/Globulin Ratio 1.2 (1.1-1.8); Alkaline Phosphatase 85 U/L (38-126); Anion Gap 12.4 mEq/L (5-15); Aspartate Amino Transferase 27 U/L (14-36); Bilirubin,Total 0.4 mg/dl (0.2-1.3); Blood Urea Nitrogen 20 mg/dl (7-17); Calcium 9.7 mg/dl (8.4-10.2); Carbon Dioxide 28 mmol/L (22.0-30.0); Creatinine Clearance Estimated 52 mL/min (50-200); Estimated Glomerular Filt Rate 51 ml/min (>60); GFR (African American) 62 ML/MIN (>60); Globulin 3.6 g/dL (1.3-3.2); Glucose 106 mg/dl (74-100); Lipase 192 U/L (23-300); Total Protein,Serum 7.9 g/dl (6.3-8.2)
--- NOTE | 2020-11-17 18:25 | PC.NURSE ---
Dr Dave kirkpatrick.
[2020-11-17 18:30] VITALS: BP 174/81; PULSE 91; RESP 18; O2SAT 98
--- NOTE | 2020-11-17 18:43 | PC.NURSE ---
LACTATED RINGERS COMPLETE AT THIS TIME. NOT INFUSING WITH ROCEPHIN. AWARE OF PENICILIN CONFLICT WITH ROCEPHIN AND OK'D
[2020-11-17 19:46] VITALS: BP 121/98
[2020-11-17 19:59] VITALS: BP 122/84; PULSE 84; RESP 14; TEMP 36.9; O2SAT 97
== END 2020-11-17 20:07 | disposition home or self-care (01) ==
PROVIDERS: Emergency Provider Emergency Medicine; PCP Nurse Practitioner Family
DX: N20.0 Calculus of kidney (principal); I10 Essential (primary) hypertension; E78.5 Hyperlipidemia, unspecified; K21.9 Gastro-esophageal reflux disease without esophagitis; F41.8 Other specified anxiety disorders; E66.9 Obesity, unspecified; Z68.42 Body mass index [BMI] 45.0-49.9, adult; Z79.899 Other long term (current) drug therapy; Z88.0 Allergy status to penicillin; Z88.2 Allergy status to sulfonamides; Z88.8 Allergy status to other drugs, medicaments and biological substances
CPT/HCPCS: 74176; 80053; 81001; 81025; 83690; 85025; 87086; 96365; 96367; 96375; 99284

== ENCOUNTER → 2020-11-19 11:24 | Outpatient (CLI) | payer OTHER, SELFPAY ==
--- NOTE | 2020-11-19 11:29 | XR_ITS ---
PROCEDURE: XR KUB CLINICAL INDICATION: KIDNEY STONE COMPARISON: CT CT ABDOMEN PELVIS WO CON from 11/17/2020 FINDINGS: There is a cluster of small stones overlying the lower pole on the left. Previous CT scan demonstrated a left UPJ stone. Calcific density overlies the left L3 transverse process measuring 5 mm and may correspond to that stone. Surgical clips are present in the right upper quadrant. IMPRESSION: Left nephrolithiasis with suspected 5 mm left UPJ Dictated by: Yg Richter MD 11/19/2020 17:38 Yg Richter MD in [place] 11/19/2020 17:38
== END ==
PROVIDERS: PCP Nurse Practitioner Family; Visit Provider Urology
DX: N20.0 Calculus of kidney (principal)
CPT/HCPCS: 74018

== ENCOUNTER 2020-11-20 13:49 | Emergency (ER) | payer OTHER, SELFPAY ==
[2020-11-20 13:50] VITALS: BP 179/61; PULSE 102; RESP 18; TEMP 36.6; O2SAT 98; BMI 45.5
--- NOTE | 2020-11-20 14:08 | HMH.EDGENADL ---
ED Disposition Clinical Impression: Left ureteral calculus Disposition: Home, Self-Care Condition on Discharge: Fair Instructions: DI for Kidney Stones Additional Instructions: Increase oxycodone to 10 mg every 4 hours for pain[address] Dr[address] Acosta tomorrow morning if you are not improved and he will perform a stent tomorrow. If improved, continue with planned procedure on Wednesday. Additional instructions for CONTROLLED SUBSTANCES: You have been prescribed a medication that is a controlled substance. Controlled substances include pain medications known as opiates and sedative nerve medications known as benzodiazepines. Tramadol, fioricet, and gabapentin are also controlled substances. Some common opiates include: Codeine (such as Tylenol #3) Hydrocodone (Vicodin, Lortab, Lorcet, [place]) Oxycodone (Percocet, Percodan, Oxycodone, Oxy IR) Some common benzodiazepines include: Diazepam (Valium) Lorazepam (Ativan) Alprazolam (Xanax) Clonazepam (Klonopin) Oxazepam (Serax) All of these controlled substances are highly addictive and frequently abused. Misuse can and frequently does lead to addiction as well as overdose and . Medication should be stored in a locked cabinet or other secure storage unit. Do not store the medication in a motor vehicle. Short term supplies, 3 days or less, are prescribed because of the highly addictive nature of the medication. Any of the controlled substance medication NOT taken should be disposed of properly and NOT SAVED. The recommended method of disposing of unused medications is: Place the medicines in a sealable plastic bag. If the medicine is a solid, crush it or add water to dissolve it. Add something undesirable (cat litter, coffee grounds, etc.) Dispose of sealed bag in household trash Do not flush or pour unused medicines down a sink or drain. Controlled substances should not be shared, given away or sold. Because of the addictive nature and frequent abuse, these medications are sometimes stolen. These medications should be kept in a safe place where they cannot be stolen. Do not keep them in your car or purse. Lost or stolen prescriptions for controlled substances WILL NOT BE REFILLED in this emergency department, regardless of whether a police report was filed. Prescriptions: Oxycodone HCl [Oxycodone (IR) 10mg Tab] 10 mg PO Q4HP PRN #12 tab PRN Reason: Severe Pain Transmission Status: Received by [facility] Promethazine HCl [Phenergan 25mg tab] 25 mg PO Q6HP PRN #10 tab PRN Reason: Nausea And Vomiting Transmission Status: Received by [facility] Referrals: Jojo Whyte APRN [Primary Care Provider] - - Critical Care Critical Care Time: No Attestation: On 11/20/20, the high probability of a clinically significant, sudden or life threatening deterioration of the following system(s) required my full and direct attention, intervention and personal management. The time I documented below is in addition to time spent performing reported procedures but includes the following listed in this critical care notation. Medical Decision Making - Medical Records Medical records reviewed: Yes: I reviewed the patient's medical records. MR Comment: Reviewed emergency department visit from 11/17, urology clinic visit from 11/19. Also reviewed urine culture results from 11/17 which showed multiple organisms suggestive of contamination. - Oul Inquiry Pt receiving controlled substance: Yes Olu was queried for this patient: Yes Risks and benefits of using a controlled substance: were discussed with pt by me Vital Signs: 11/20/20 13:50 Temperature 97.8 F Temperature Source Oral Pulse Rate [Right] 102 H Respiratory Rate 18 Blood Pressure [Right Arm] 179/61 H Blood Pressure Mean [Right Arm] 100 02 Sat by Pulse Oximetry 98 Orders (Tests/Meds): ED MEDICATIONS Discontinued Medications Generic Name Dose Route Start Last Admin Trade Name
[2020-11-20 15:23] VITALS: BP 154/78; PULSE 78; RESP 20; TEMP 36.7; O2SAT 98
== END 2020-11-20 15:24 | disposition home or self-care (01) ==
PROVIDERS: Emergency Provider Emergency Medicine; PCP Nurse Practitioner Family
DX: N20.1 Calculus of ureter (principal); Z87.442 Personal history of urinary calculi; K21.9 Gastro-esophageal reflux disease without esophagitis; M79.7 Fibromyalgia; E78.5 Hyperlipidemia, unspecified; I10 Essential (primary) hypertension; F41.8 Other specified anxiety disorders; F17.290 Nicotine dependence, other tobacco product, uncomplicated; Z88.0 Allergy status to penicillin; Z88.1 Allergy status to other antibiotic agents; Z88.2 Allergy status to sulfonamides; Z88.6 Allergy status to analgesic agent; Z79.899 Other long term (current) drug therapy
CPT/HCPCS: 96372; 99281

== ENCOUNTER 2020-11-22 11:10 | Day surgery (SDC) | payer OTHER, SELFPAY ==
[2020-11-20 10:32] VITALS: BMI 45.5
[2020-11-22] VITALS (9 sets, daily range): BP systolic 125–181; BP diastolic 81–109; PULSE 92–105; RESP 12–18; TEMP 36.3–36.6; O2SAT 93–99
[2020-11-22 12:59] LABS: Coronavirus 19 IgG Antibody Negative (Negative); Coronavirus 19 IgM Antibody Negative (Negative)
--- NOTE | 2020-11-22 14:51 | P.OP_ITS ---
Date of procedure: 11/22/20 Pre-op Diagnosis:: 5 mm left proximal ureteral stone with obstruction Post-op Diagnosis:: Same Procedure performed:: Cystoscopy with left ureteral stone manipulation, left ESWL Surgeon:: Orlando Acosta MD SEMICONDUCTOR ENGINEER:: Shawn Adkins Anesthesia: GETA Estimated blood loss (mL): 0 Clinical Note:: Patient is a 35-year-old white female with recent left renal colic. CT scan shows a 5 mm proximal left ureteral stone. She has continued to have some left flank pain and presents today for urologic management. Operative findings:: Fluoroscopy reveals a hazy 5 mm stone in the proximal ureter. Stone manipulation left ESWL was performed without difficulty. Operative note:: Patient taken to the operating room after informed consent was obtained. She was placed on the operating table in the supine position and general anesthesia administered. She has had recent foot surgery and has pins present and consultation with Dr. Lovell prior to the procedure was obtained. He suggested being very careful if we have to proceed with her foot up in lithotomy position. Her legs were placed into the lithotomy very carefully and the left leg with the boot in place was secured to the legging. She was then prepped draped in the standard surgical fashion. Sequential compression devices and preoperative antibiotics with clindamycin were given. After prep and drape the [place] cystoscope placed into the urethra and into the bladder. The bladder was examined in systematic fashion there is no mucosal abnormalities or stones. The left ureteral orifice was cannulated with the 5 [place] ureteral catheter and passed up to the proximal left ureteral stone. The stone was able to be manipulated back into the renal pelvis with minimal difficulty. The ureteral catheter was left indwelling. This stone is not as calcified as I would like but that is visible on fluoroscopy. The patient was then placed into the supine position and her left leg handled very carefully. She was positioned and padded appropriately and the lithotripter focused onto the left renal stone. 2500 shockwaves letter to the stone and there is no visible stone noted after treatment. Patient tolerated the procedure well there are no complications. The ureteral catheter was removed at the end of the case. Condition: stable Disposition: PACU Specimens:: None Complications:: None
--- NOTE | 2020-11-22 14:57 | HMH.ANESCL ---
[facility] Anesthesia Checklist - Structural Data Admitted From: Home Planned Operative Procedure/s: eswl Consent for Planned Operative Procedure(s) Verified: Yes - Additional verifications Anesthesia Reactions: No Hx Blood Transfusions: No Blood Transfusion Reaction: No - Airway Assessment C-Spine Mobility Assessed: Yes TMJ Mobility Assessed: Yes Dentition: Good Dentition - Neurological Assessment Level of Consciousness: Awake, Alert, Appropriate - Anesthesia Plan Anesthesia Risk discussed: Yes Anesthesia Plan: Verified ASA Class: III Anesthesia Type: General [facility] History I have reviewed the patient's past medical history: Yes 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: Reports:: Anxiety, Asthma, Depression, Gastroesophageal Reflux Disease(GERD), Hyperlipidemia, Hypertension, Kidney Stones, Migraine Denies:: Cancer, Diabetes Mellitus Type 1, Diabetes Mellitus Type 2, Internal Pacemaker, MRSA, Seizures *Have you ever received a pneumonia vaccine?: No *Have you received a flu vaccine this season?: Yes Other 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: Reports: Fibromyalgia, Other. Denies: Blood Transfusion Reaction Anesthesia experience/problems:: none Laterality Cases: Left: Other, Bilateral: Myringotomy (Ear Tubes), Tonsillectomy Other Surgeries: Yes: No Previous Surgery, Cholecystectomy, Hernia Repair, Hysterectomy-Total, Ureter Stent, Other. No: Pacemaker Amputation: No Fractures: Yes - *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 Last grade of school completed: High school graduate Smoking Status: Current every day smoker Tobacco Type: smokeless tobacco # Packs/Day (cigarettes): 1 Alcohol Intake: never Substance Use Type: denies use *Occupational Status:: employed Housing: house Household Members: other *Travel in the last 8 weeks: None - Psychiatric History Pschychiatric History:: Reports:: Anxiety, Depression, Post Traumatic Stress Disorder Family Hx:: Unable to obtain, Adopted
--- NOTE | 2020-11-22 14:58 | P.PN_ITS ---
[facility] Anesthesia Record Part I Intake, IV Amount: 1,200 Estimated blood loss (mL): 0 Urine output (mL): 0 Blood Pressure: 158/81 SaO2: 95 Pulse Rate: 105 Respiratory Rate: 12 Temperature: 97.5 F Patient is:: Awake, Stable Stable to PACU at:: 14:50
--- NOTE | 2020-11-22 16:08 | SUR.PHASEII ---
1550: Nirmal Adkins CRNA notified of high blood pressure. Encouraged pt. to see PCP. Does not want to medicate at this time.
--- NOTE | 2020-11-25 15:39 | HMH.ANESII ---
[facility] Anesthesia Record Part II Discharge Time: 15:24 Destination: Surgical Day Care (OP Surgery) PACU nurse assessment reviewed?: Yes Patient Condition:: Good Anesthesia Complications:: None Swallowing reflex intact?: Yes Cyanosis?: No Blood Pressure: 125/92 Pulse Rate: 94 Temperature: 97.4 F Mental Status: Alert & Oriented Pain level:: 6 Nausea and/or vomitting:: None Intake, IV Amount: 400
[2020-11-25 15:41] VITALS: BP 125/92; PULSE 94; TEMP 36.3
== END 2020-11-22 16:00 | disposition home or self-care (01) ==
LOC: OR 11:12
PROVIDERS: PCP Nurse Practitioner Family; Visit Provider Urology
PROC: 0TJ98ZZ Inspection of Ureter, Via Natural or Artificial Opening Endoscopic (ICD-10-PCS; CPT 52351; principal; 2020-11-22 13:00)
DX: N20.1 Calculus of ureter (principal); F41.9 Anxiety disorder, unspecified; J45.909 Unspecified asthma, uncomplicated; F32.9 Major depressive disorder, single episode, unspecified; K21.9 Gastro-esophageal reflux disease without esophagitis; E78.5 Hyperlipidemia, unspecified; I10 Essential (primary) hypertension; G43.909 Migraine, unspecified, not intractable, without status migrainosus; M79.7 Fibromyalgia; Z72.0 Tobacco use; Z88.0 Allergy status to penicillin; Z88.6 Allergy status to analgesic agent
CPT/HCPCS: 50590; 86328; 96374

== ENCOUNTER 2020-11-30 16:39 | Emergency (ER) | payer OTHER, SELFPAY ==
[2020-11-30 16:42] VITALS: BP 175/117; PULSE 122; RESP 18; TEMP 37.2; O2SAT 97; BMI 43.4
--- NOTE | 2020-11-30 16:47 | HMH.EDGENADL ---
ED Disposition Clinical Impression: Left knee pain Qualifiers: Chronicity: acute Qualified Code(s): M25.562 - Pain in left knee Disposition: Home, Self-Care Condition on Discharge: Fair Additional Instructions: Continue nonweightbearing. Oxycodone as needed for pain. Call Dr. Lovell on Wednesday to arrange follow-up. Return to the emergency department if worsening pain or any new symptoms such as fever, redness of knee. Additional instructions for CONTROLLED SUBSTANCES: You have been prescribed a medication that is a controlled substance. Controlled substances include pain medications known as opiates and sedative nerve medications known as benzodiazepines. Tramadol, fioricet, and gabapentin are also controlled substances. Some common opiates include: Codeine (such as Tylenol #3) Hydrocodone (Vicodin, Lortab, Lorcet, [place]) Oxycodone (Percocet, Percodan, Oxycodone, Oxy IR) Some common benzodiazepines include: Diazepam (Valium) Lorazepam (Ativan) Alprazolam (Xanax) Clonazepam (Klonopin) Oxazepam (Serax) All of these controlled substances are highly addictive and frequently abused. Misuse can and frequently does lead to addiction as well as overdose and . Medication should be stored in a locked cabinet or other secure storage unit. Do not store the medication in a motor vehicle. Short term supplies, 3 days or less, are prescribed because of the highly addictive nature of the medication. Any of the controlled substance medication NOT taken should be disposed of properly and NOT SAVED. The recommended method of disposing of unused medications is: Place the medicines in a sealable plastic bag. If the medicine is a solid, crush it or add water to dissolve it. Add something undesirable (cat litter, coffee grounds, etc.) Dispose of sealed bag in household trash Do not flush or pour unused medicines down a sink or drain. Controlled substances should not be shared, given away or sold. Because of the addictive nature and frequent abuse, these medications are sometimes stolen. These medications should be kept in a safe place where they cannot be stolen. Do not keep them in your car or purse. Lost or stolen prescriptions for controlled substances WILL NOT BE REFILLED in this emergency department, regardless of whether a police report was filed. Prescriptions: Oxycodone HCl [Oxycodone (IR) 5mg Cap] 5 mg PO Q6HP PRN #10 cap PRN Reason: Moderate To Severe Pain Transmission Status: Received by [id number] Referrals: Jojo Whyte APRN [Primary Care Provider] - - Critical Care Critical Care Time: No Attestation: On , the high probability of a clinically significant, sudden or life threatening deterioration of the following system(s) required my full and direct attention, intervention and personal management. The time I documented below is in addition to time spent performing reported procedures but includes the following listed in this critical care notation. Medical Decision Making - Olu Inquiry Pt receiving controlled substance: Yes Olu was queried for this patient: Yes Risks and benefits of using a controlled substance: were discussed with pt by me Vital Signs: 11/30/20 16:42 11/30/20 17:19 11/30/20 18:43 Temperature 98.9 F 98.3 F Temperature Source Oral Oral Pulse Rate 100 H 87 Pulse Rate [Left Radial] 122 H Respiratory Rate 18 18 Blood Pressure 164/102 H 145/71 H Blood Pressure [Right Arm] 175/117 H Blood Pressure Mean 117 Blood Pressure Mean [Right Arm] 136 Blood Pressure Source [Right Arm] Automatic Cuff Blood Pressure Position [Right Arm] Sitting 02 Sat by Pulse Oximetry 97 97 Oxygen Delivery Method Room Air Room Air Orders (Tests/Meds): ED MEDICATIONS Discontinued Medications Generic Name Dose Route Start Last Admin Trade Name Freq PRN Reason Stop Dose Admin Hydromorphone HCl 2 mg 11/30/20 17:45 11/30/20 17:50 Hydromorphone 2
--- NOTE | 2020-11-30 16:54 | XR_ITS ---
PROCEDURE: XR KNEE LT 3V CLINICAL INDICATION: knee pain Pain COMPARISON: DX [id number] KNEE-3 VIEWS-LT from 08/30/2017 CR XR TIBIA FIBULA LT 2V from 11/13/2020 CR XR TIBIA FIBULA LT 2V from 11/30/2020 FINDINGS: No fracture or dislocation. No lytic or blastic change. There is normal mineralization. The joint spaces are well-preserved. No significant degenerative/arthritic changes. No erosive changes evident. Other findings:There is an intramedullary kevin in place within the tibia stabilizing a distal tibial fracture. Lateral bone plate is also present in the distal fibula. There is good alignment of fracture fragments. IMPRESSION: Good alignment status post ORIF distal tib fib fractures Dictated by: Yg Richter MD 12/01/2020 05:42 Yg Richter MD in [place] 12/01/2020 05:42
[2020-11-30 17:19] VITALS: BP 164/102; PULSE 100; O2SAT 97
--- NOTE | 2020-11-30 18:31 | PC.NURSE ---
Pt has removed her own vs monitors.
[2020-11-30 18:43] VITALS: BP 145/71; PULSE 87; RESP 18; TEMP 36.8; O2SAT 98
== END 2020-11-30 18:40 | disposition home or self-care (01) ==
PROVIDERS: Emergency Provider Emergency Medicine; PCP Nurse Practitioner Family
DX: M25.562 Pain in left knee (principal); S82.202D Unspecified fracture of shaft of left tibia, subsequent encounter for closed fracture with routine healing; S82.62XD Displaced fracture of lateral malleolus of left fibula, subsequent encounter for closed fracture with routine healing; F41.8 Other specified anxiety disorders; K21.9 Gastro-esophageal reflux disease without esophagitis; E78.5 Hyperlipidemia, unspecified; I10 Essential (primary) hypertension; M79.7 Fibromyalgia; Z87.442 Personal history of urinary calculi; F17.210 Nicotine dependence, cigarettes, uncomplicated; Z88.0 Allergy status to penicillin; Z88.2 Allergy status to sulfonamides; Z88.8 Allergy status to other drugs, medicaments and biological substances; Z90.49 Acquired absence of other specified parts of digestive tract; Z90.79 Acquired absence of other genital organ(s); Z79.899 Other long term (current) drug therapy
CPT/HCPCS: 73562; 73590; 99282

== ENCOUNTER 2020-12-19 18:09 | Emergency (ER) | payer OTHER, SELFPAY ==
[2020-12-19 18:10] VITALS: BP 189/99; PULSE 85; RESP 17; TEMP 36.8; O2SAT 99; BMI 45.7
--- NOTE | 2020-12-19 18:22 | XR_ITS ---
PROCEDURE: XR ANKLE RT MIN 3V CLINICAL INDICATION: PAIN COMPARISON: No exams were available for comparison FINDINGS: Medial and lateral malleolus appear intact. The ankle mortise is normal. There is no significant soft tissue swelling. IMPRESSION: No acute findings. Dictated by: Dr. Jose Day MD 12/20/2020 08:25 Dr. Jose Day MD in [place] 12/20/2020 08:25
--- NOTE | 2020-12-19 18:23 | XR_ITS ---
PROCEDURE: XR TIBIA FIBULA RT 2V CLINICAL INDICATION: PAIN COMPARISON: No exams were available for comparison FINDINGS: The tibia and fibula appear intact with no evidence of recent or old fracture. The medial and lateral joint space of the appear. Soft tissues are unremarkable. IMPRESSION: No acute findings. Dictated by: Dr. Jose Day MD 12/20/2020 08:24 Dr. Jose Day MD in [place] 12/20/2020 08:24
--- NOTE | 2020-12-19 18:28 | HMH.EDUTC ---
[facility] [place] Clinical Impression: Pain and swelling of right ankle Disposition: Home, Self-Care Condition on Discharge: Good Instructions: How To Perform RICE (Rest, Ice, Compress, Elevate), How to Apply an Jah Wrap Additional Instructions: *weight bearing as tolerated *RICE, Rest the extremity, Ice 15-20 minutes 3-4 times daily, Compress- wear the jah wrap as discussed as much as possible to help reduce swelling and pain, Elevate the extremity when at rest *Jah wrap is for support and help control swelling, use it except in the shower. Be sure that is not to tight but not to loose either *Elevate when resting this will help with swelling and pain * Tylenol may help with pain When you are sitting make sure to elevate both legs to help with swelling Immediately follow up with your family doctor for new or worsening of symptoms, or no noticeable improvement over the next 3-5 days Follow up with your Family Doctor for evaluation of your blood pressure and further treatment Follow up with your Orthopedic Doctor if these symptoms continued Return if needed Straight to ER if any life threatening symptoms You may call back to the [facility] tomorrow for the official Radiology reading of your xray Referrals: Jojo Whyte APRN [Primary Care Provider] - As needed Time of Disposition: 18:51 Medical Decision Making - Olu Inquiry Pt receiving controlled substance: No Olu was queried for this patient: No Vital Signs: 12/19/20 18:10 Temperature 98.2 F Temperature Source Oral Pulse Rate [Left Brachial] 85 Respiratory Rate 17 Blood Pressure [Left Arm] 189/99 H Blood Pressure Mean [Left Arm] 129 Blood Pressure Source [Left Arm] Automatic Cuff Blood Pressure Position [Left Arm] Sitting 02 Sat by Pulse Oximetry 99 Oxygen Delivery Method Room Air Orders (Tests/Meds): ORDERS Category Date Time Status XR ankle RT min 3V Stat Exams 12/19/20 18:22 Taken XR tibia fibula RT 2V Stat Exams 12/19/20 18:23 Taken - Radiology Data #1 Image(s): Ankle Image Reviewed: Yes I reviewed the patient's radiology image Preliminary Findings: No Fracture Seen #2 Image(s): Tib/Fib Image Reviewed: Yes I reviewed the patient's radiology image Preliminary Findings: Normal/NAD Medical Decision Narrative: Patient blood pressure elevated discussed with patient and she states that her blood pressure is elevated at times when she gets nervous when she comes to the Doctor States that she will see her PCP for her blood pressure she wanted to get her leg checked out [facility] [place]PI - General Stated complaint: R leg swollen Time Seen by Provider: 12/19/20 18:28 Mode of Arrival: Ambulatory Source of Information: Patient Limitations: No Limitations Description of Symptoms (Recalled from Triage Doc. by RN): PATIENT C/O SWELLING AND PAIN IN RIGHT LEG/OSHEA THAT STARTED TODAY HEENT Symptoms (Recalled from RN notes): No Resp Symptoms (Recalled from RN notes): No Skin Symptoms (Recalled from RN notes): No MS Symptoms (Recalled from RN notes): Yes Functional Status (Recalled from RN notes): WNL - History of Present Illness Provider Complaint: Patient states that she noticed earlier that her right ankle was swollen and had some pain in her right lower leg State that she has been in walking boot and having to use walker for several months now due to fracture in her left ankle States that she is not sure if she may have twisted it or sprained it so she come in to get it checked - Related Data Home Medications Medication Instructions Recorded Confirmed paroxetine HCl 40 mg tablet 60 mg PO DAILY 10/21/17 12/19/20 Tizanidine HCl [Zanaflex 4mg 6 mg PO TIDP PRN 03/15/18 12/19/20 tab] Apixaban [Eliquis] 5 mg PO BID 11/20/20 12/19/20 Gabapentin [Neurontin 300mg 900 mg PO TID 12/19/20 12/19/20 capsule] Allergies Allergy/AdvReac Type Severity Reaction Status Date / Time Penicillins Allergy Severe Hives Verified 12/04/20 15:11
[2020-12-19 18:51] VITALS: BP 189/99; PULSE 85; RESP 17; TEMP 36.8; O2SAT 99
== END 2020-12-19 18:55 | disposition home or self-care (01) ==
PROVIDERS: Emergency Provider Nurse Practitioner; PCP Nurse Practitioner Family
DX: M25.571 Pain in right ankle and joints of right foot (principal); F41.8 Other specified anxiety disorders; E78.5 Hyperlipidemia, unspecified; I10 Essential (primary) hypertension; K21.9 Gastro-esophageal reflux disease without esophagitis; M79.7 Fibromyalgia; Z87.442 Personal history of urinary calculi; F17.290 Nicotine dependence, other tobacco product, uncomplicated; Z88.0 Allergy status to penicillin; Z88.5 Allergy status to narcotic agent; Z88.1 Allergy status to other antibiotic agents; Z88.8 Allergy status to other drugs, medicaments and biological substances
CPT/HCPCS: 73590; 73610; 99202; G0463

== ENCOUNTER 2020-12-24 00:36 | Emergency (ER) | payer OTHER, SELFPAY ==
[2020-12-24 00:38] VITALS: BP 194/121; PULSE 95; RESP 14; TEMP 37.3; O2SAT 95; BMI 45.7
--- NOTE | 2020-12-24 00:40 | HMH.EDGENADL ---
ED Disposition Clinical Impression: Ankle pain, left Qualifiers: Chronicity: chronic Qualified Code(s): M25.572 - Pain in left ankle and joints of left foot Disposition: Home, Self-Care Condition on Discharge: Good Additional Instructions: Continue taking Tylenol for pain. Use topical Voltaren as well on your ankle. Use ice and elevation at night. Try over the counter capsaicin cream as well to alleviate some of the pain. Return if worsening symptoms otherwise follow-up with Dr. Lovell. Referrals: Jojo Whyte APRN [Primary Care Provider] - - Critical Care Critical Care Time: No Attestation: On , the high probability of a clinically significant, sudden or life threatening deterioration of the following system(s) required my full and direct attention, intervention and personal management. The time I documented below is in addition to time spent performing reported procedures but includes the following listed in this critical care notation. Medical Decision Making - Medical Records Medical records reviewed: Yes: I reviewed the patient's medical records. - Olu Inquiry Pt receiving controlled substance: No Vital Signs: 12/24/20 00:38 Temperature 99.1 F Temperature Source Oral Pulse Rate [Right] 95 H Respiratory Rate 14 Blood Pressure [Right Arm] 194/121 H Blood Pressure Mean [Right Arm] 145 02 Sat by Pulse Oximetry 95 Oxygen Delivery Method Room Air Orders (Tests/Meds): ORDERS Category Date Time Status Foot XR left minimum 3 views [XR foot LT min 3V] Stat Exams 12/24/20 00:54 Taken XR tibia fibula LT 2V Stat Exams 12/24/20 00:54 Taken Medical Decision Narrative: Patient 35-year-old female present with acute on chronic left ankle pain. Patient is status post ORIF several months ago. She is well-appearing surgical scars with only scant abrasion from her Aircast. There is no ulceration. She has two-point discrimination in her left foot with good pulses. No color changes noted to left foot or decreased range of motion left ankle. Compartment syndrome considered but patient has soft compartments and again reassuring exam. X-ray will be obtained to ensure no subcu air/significant swelling or malaligned hardware. X-ray demonstrates no obvious fluid/gas collection subcutaneously or any obviously malaligned hardware. At this time I recommended patient continue to use ice and elevation to help with some of the swelling and pain. Narcotics not indicated for pain. Patient with multiple prescription when I checked a Oul recently for narcotics. I recommended [id number] capsaicin cream to use which she is somewhat amenable to. She will follow with orthopedic surgery as recommended. She report immediately back to emergency department if any worsening skin changes, decreased range of motion left lower extremity, decreased sensation, change in color of the left foot, or other new concerning symptoms. She does have an elevated blood pressure as well there is no indication for acute lowering as she is asymptomatic. I instructed her to continue taking her home medication and follow-up with her PCP in regards to her blood pressure. She agrees. Assessment: Acute on chronic left ankle pain Hypertension, not well controlled GERD Fibromyalgia Disposition: Home with orthopedic follow-up General Adult HPI - General Stated complaint: pain in left lower leg, Time Seen by Provider: 12/24/20 01:00 - History of Present Illness HPI narrative: Patient 35-year-old female history of ankle fracture on the left side 2 months ago status post ORIF, hypertension, obesity, GERD, fibromyalgia presenting with left ankle pain. Patient states she had some mild swelling and pain since her surgery. She has intermittently been prescribed pain medicine but states at night she was concerned because the boot she is been wearing has been rubbing her skin and there is an abrasion noted to the left lateral lower leg.
--- NOTE | 2020-12-24 00:54 | XR_ITS ---
PROCEDURE: XR TIBIA FIBULA LT 2V CLINICAL INDICATION: pain Pain and redness COMPARISON: CR XR TIBIA FIBULA LT 2V from 11/05/2020 CR XR TIBIA FIBULA LT 2V from 11/13/2020 CR XR TIBIA FIBULA LT 2V from 11/30/2020 CR XR TIBIA FIBULA RT 2V from 12/19/2020 FINDINGS: Status post distal tib fib with lateral bone plate at the distal fibula intramedullary kevin the tibia stabilizing distal tib fib fractures which are in good alignment. No evidence of prosthesis loosening or hardware malfunction. There is generalized osteopenia of the distal tube fib ankle and foot.. No bony destructive process apparent. IMPRESSION: No change status post ORIF distal tib fib with good alignment Dictated by: Yg Richter MD 12/24/2020 04:41 Yg Richter MD in [place] 12/24/2020 04:41
--- NOTE | 2020-12-24 00:54 | XR_ITS ---
PROCEDURE: XR FOOT LT MIN 3V CLINICAL INDICATION: pain COMPARISON: CR [id number] XR foot RT min 3V from 08/30/2018 CR XR ANKLE LT MIN 3V from 11/13/2020 FINDINGS: There is diffuse generalized osteopenia. Soft tissue swelling is present of the foot. No acute fracture or dislocation. Prior ORIF distal tib fib. IMPRESSION: Diffuse osteopenia with soft tissue swelling Dictated by: Yg Richter MD 12/24/2020 04:30 Yg Richter MD in [place] 12/24/2020 04:30
[2020-12-24 01:47] VITALS: BP 184/91; PULSE 94; RESP 14; TEMP 37.2; O2SAT 97
== END 2020-12-24 01:49 | disposition home or self-care (01) ==
PROVIDERS: Emergency Provider Emergency Medicine; PCP Nurse Practitioner Family
DX: M25.572 Pain in left ankle and joints of left foot (principal); I10 Essential (primary) hypertension; K21.9 Gastro-esophageal reflux disease without esophagitis; E78.5 Hyperlipidemia, unspecified; M79.7 Fibromyalgia; F41.8 Other specified anxiety disorders; F17.290 Nicotine dependence, other tobacco product, uncomplicated; Z87.442 Personal history of urinary calculi; Z79.899 Other long term (current) drug therapy; Z88.2 Allergy status to sulfonamides; Z88.0 Allergy status to penicillin; Z88.5 Allergy status to narcotic agent
CPT/HCPCS: 73590; 73630; 99282

== ENCOUNTER 2020-12-27 20:52 | Emergency (ER) | payer OTHER, SELFPAY ==
[2020-12-27 22:07] VITALS: BP 161/103; PULSE 104; RESP 20; TEMP 37; O2SAT 98; BMI 53.1
--- NOTE | 2020-12-27 22:15 | CT_ITS ---
PROCEDURE: CT ABDOMEN WO CON CLINICAL HISTORY: left flank pain, r/o kidney stones Left flank pain COMPARISON: No exams were available for comparison TECHNIQUE: Axial images obtained with sagittal and coronal reformats. All CT scans at the facility use one or more dose reduction, viz: automated exposure control, ma/kV adjustment per patient size (including targeted exams where dose is matched to indication, i.e. head), or iterative reconstruction technique. FINDINGS: Lung bases are clear. Subtle hypodensity right hepatic lobe anteriorly image 29 series 3 at 12 mm and may be due to a hepatic lesion or unopacified vessel. The spleen, adrenal glands, and pancreas have an unremarkable appearance. Prior cholecystectomy. 7 mm stone present in the lower pole of the left kidney. 4 mm stone in the mid to lower pole of the left kidney and a 3 mm stone in the upper pole of the left kidney. Punctate stones are present in the upper pole of the right kidney. Minimal fullness of the left renal collecting system. Left ureter is normal in caliber.. No ureteral calculi. No intestinal obstruction or free air. No evidence of appendicitis or diverticulitis. There are scattered colonic diverticula. Scattered small nodes are present in the inguinal regions on both sides. No acute bony finding. Small umbilical hernia containing fat. IMPRESSION: 1. Bilateral nephrolithiasis more prominent on the left with minimal fullness of the left renal collecting system but without obvious obstructing stone.. 2. Diverticulosis without diverticulitis. 3. Possible 12 mm lesion of the liver. Follow-up CT with hemangioma protocol may provide further evaluation. Dictated by: Yg Richter MD 12/28/2020 10:34 Yg Richter MD in [place] 12/28/2020 10:34
--- NOTE | 2020-12-27 22:16 | HMH.EDNVD ---
ED Disposition Clinical Impression: Flank pain, acute UTI (urinary tract infection) Qualifiers: Urinary tract infection type: site unspecified Hematuria presence: without hematuria Qualified Code(s): N39.0 - Urinary tract infection, site not specified Disposition: Home, Self-Care Condition on Discharge: Good Instructions: DI for Urinary Tract Infection (UTI) Additional Instructions: use meds and call pcp for urine culture results Prescriptions: Nitrofurantoin Monohyd/M-Cryst [Macrobid 100 mg Capsule] 100 mg PO BID #10 cap Transmission Status: Pending to [facility] Referrals: Jojo Whyte APRN [Primary Care Provider] - - Critical Care Critical Care Time: No Attestation: On 12/27/20, the high probability of a clinically significant, sudden or life threatening deterioration of the following system(s) required my full and direct attention, intervention and personal management. The time I documented below is in addition to time spent performing reported procedures but includes the following listed in this critical care notation. Medical Decision Making - Medical Records Medical records reviewed: Yes: I reviewed the patient's medical records. - Olu Inquiry Pt receiving controlled substance: No Vital Signs: 12/27/20 22:07 Temperature 98.6 F Temperature Source Oral Pulse Rate [Right] 104 H Respiratory Rate 20 Blood Pressure [Right Arm] 161/103 H Blood Pressure Mean [Right Arm] 122 Blood Pressure Source [Right Arm] Automatic Cuff 02 Sat by Pulse Oximetry 98 Oxygen Delivery Method Room Air - Lab Data Lab results reviewed: Yes: I reviewed the patient's lab results. Lab Results 12/27/20 20:15: Urine Color Yellow, Urine Appearance Sl cloudy, Urine pH 6.0, Ur Specific [place] 1.025, Urine Protein Negative, Urine Glucose (UA) Negative, Urine Ketones Negative, Urine Blood Trace-i, Urine Nitrate Negative, Urine Bilirubin Negative, Urine Urobilinogen 0.2, Ur Leukocyte Esterase 1+ A, Urine RBC Occasional, Urine WBC Tntc, Ur Squamous Epith Cells 50-100, Urine Bacteria 1+ 12/27/20 22:55: WBC 14.0 H, RBC 5.33, Hgb 14.4, Hct 44.8, MCV 84.1, MCH 27.0, MCHC 32.1, RDW 15.1, Plt Count 414, MPV 8.0, Neut % (Auto) 69.7, Lymph % (Auto) 22.0, [place] % (Auto) 5.1, Eos % (Auto) 2.6, Baso % (Auto) 0.6, Neut # (Auto) 9.7 H, Lymph # (Auto) 3.1, [place] # (Auto) 0.7, Eos # (Auto) 0.4, Baso # (Auto) 0.1, ESR 19 12/27/20 22:55: Sodium 139, Potassium 4.0, Chloride 107, Carbon Dioxide 25, Anion Gap 11.0, BUN 21 H, Creatinine 0.90, Estimated Creat Clear 72, Estimated GFR 71, Est GFR ( Amer) 86, Glucose 105 H, Calcium 9.5, Total Bilirubin 0.4, AST 27, ALT 24, Alkaline Phosphatase 87, C-Reactive Protein 17.6 H, Total Protein 8.0, Albumin 4.2, Globulin 3.8 H, Albumin/Globulin Ratio 1.1 Result diagrams: 12/27/20 22:55 12/27/20 22:55 Orders (Tests/Meds): ORDERS Category Date Time Status CT abdomen wo con Stat Cat Scan 12/27/20 22:15 Taken C-Reactive Protein Stat Lab 12/27/20 22:55 Results Comprehensive Metabolic Panel Stat Lab 12/27/20 22:55 Results Procalcitonin Stat Lab 12/27/20 22:55 Results Urine Culture Stat Micro 12/27/20 20:15 Received - CT Data CT Scan: Abdomen, Pelvis Time Received: 23:[address] Reviewed: Yes: I have viewed the radiologist's interpretation Preliminary Findings: Abnormal (see report ) Medical Decision Narrative: flank pain but no obstructing stone with abn u/a will treat as uti and ask pt to call pcp for follow up in am Nausea/Vomiting/Diarrhea HPI - General Chief complaint: Back Pain/Injury Stated complaint: possible kidney stone Time Seen by Provider: 12/27/20 22:15 Mode of Arrival: Ambulatory Source of Information: Patient, Medical Record Limitations: No Limitations Description of Symptoms (Recalled from ER Triage Doc. by RN): Pt c/o left flank pain that began around 4pm today. SHe also reports dysuria, hematuria, and urinary frequency. - History of Present Illness H
[2020-12-27 22:21] LABS: Microscopic, Urine URINE MICROSCOPIC (MICROSCOPIC)
[2020-12-27 22:22] LABS: Appearance,Urine SL CLOUDY (Clear); Bilirubin,Urine Negative (Negative); Blood, Urine TRACE-I (Negative); Color,Urine YELLOW (Yellow); Glucose,Urine (UA) Negative (Negative); Ketones,Urine Negative (Negative); Leukocyte Esterase,Urine 1+ (Negative); Nitrate,Urine Negative (Negative); Protein,Urine Negative (Negative); Specific Gravity, Urine 1.025 (1.005-1.030); Urobilinogen,Urine 0.2 EU/dl (0.2)
[2020-12-27 22:30] LABS: Bacteria,Urine 1+ /lpf; RBC,Urine Occasional #/hpf (0-3); Squamous Epithelial Cell,Urine 50-100 #/hpf (0-5); WBC,Urine TNTC #/hpf (0-3)
[2020-12-27 23:02] LABS: Basophils # 0.1 K/mm3 (0-0.2); Basophils % 0.6 % (0.1-2.0); Eosinophils # 0.4 K/mm3 (0.0-0.4); Eosinophils % 2.6 % (0.1-12.0); Hematocrit 44.8 % (37.0-47.0); Hemoglobin 14.4 g/dL (12.2-16.2); Lymphocytes # 3.1 K/mm3 (0.7-4.5); Mean Corpuscular HGB Conc 32.1 g/dL (31.8-35.4); Mean Corpuscular Volume 84.1 fl (81-99); Monocytes # 0.7 K/mm3 (0.1-1.0); Monocytes % 5.1 % (1.7-9.3); Neutrophils # 9.7 K/mm3 (1.8-7.8); Neutrophils % 69.7 % (37.0-80.0); Platelet Count 414 K/mm3 (142-424); Red Blood Count 5.33 M/mm3 (4.20-5.40); Red Cell Distribution Width 15.1 % (11.5-17.5)
[2020-12-27 23:19] LABS: Alanine Aminotransferase 24 U/L (12-78); Albumin Level 4.2 g/dl (3.5-5.0); Albumin/Globulin Ratio 1.1 (1.1-1.8); Alkaline Phosphatase 87 U/L (38-126); Aspartate Amino Transferase 27 U/L (14-36); Bilirubin,Total 0.4 mg/dl (0.2-1.3); Blood Urea Nitrogen 21 mg/dl (7-17); Calcium 9.5 mg/dl (8.4-10.2); Carbon Dioxide 25 mmol/L (22.0-30.0); Chloride 107 mmol/L (98-107); Creatinine Clearance Estimated 72 mL/min (50-200); Estimated Glomerular Filt Rate 71 ml/min (>60); GFR (African American) 86 ML/MIN (>60); Globulin 3.8 g/dL (1.3-3.2); Glucose 105 mg/dl (74-100); Sodium 139 mmol/L (136-145)
[2020-12-27 23:24] LABS: C-Reactive Protein 17.6 mg/L (0-4)
[2020-12-27 23:31] LABS: Erythrocyte Sedimentation Rate 19 mm/hr (0-20)
[2020-12-28 00:24] VITALS: BP 138/86; PULSE 72; RESP 16; TEMP 36.8; O2SAT 100
== END 2020-12-28 00:26 | disposition home or self-care (01) ==
PROVIDERS: Emergency Provider Emergency Medicine; PCP Nurse Practitioner Family
DX: N30.01 Acute cystitis with hematuria (principal); I10 Essential (primary) hypertension; E78.5 Hyperlipidemia, unspecified; K21.9 Gastro-esophageal reflux disease without esophagitis; F41.8 Other specified anxiety disorders; Z87.442 Personal history of urinary calculi; M79.7 Fibromyalgia; Z79.899 Other long term (current) drug therapy
CPT/HCPCS: 74150; 80053; 81001; 84145; 85025; 85651; 86140; 87086; 87088; 87186; 99283

== ENCOUNTER → 2021-01-15 14:49 | Outpatient (CLI) | payer OTHER, SELFPAY ==
--- NOTE | 2021-01-15 14:52 | XR_ITS ---
PROCEDURE: XR ANKLE LT MIN 3V Left tib fib two views CLINICAL INDICATION: sp ORIF LT ankle, dos 10/24/20 COMPARISON: CR XR ANKLE LT 2V from 10/23/2020 CR XR ANKLE LT MIN 3V from 11/05/2020 CR XR ANKLE LT MIN 3V from 11/13/2020 CR XR ANKLE RT MIN 3V from 12/19/2020 CR XR TIBIA FIBULA LT 2V from 01/15/2021 FINDINGS: Status post ORIF distal tib fib with lateral fibular bone plate and intramedullary kevin within the tibia. The fracture line at the distal fibula is still visible. There is developing callus formation at the fracture site. Callus formation is also present at the distal tibial fracture with good alignment. There is diffuse osteopenia Proximal tib fib have an unremarkable appearance. Intramedullary kevin is present throughout the length of the tibia.. IMPRESSION: Status post ORIF distal tib fib as described above with good alignment and healing fractures. Dictated by: Yg Richter MD 01/15/2021 15:54 Yg Richter MD in [place] 01/15/2021 15:54
== END ==
PROVIDERS: PCP Nurse Practitioner Family; Visit Provider Orthopaedic Surgery
DX: Z09 Encounter for follow-up examination after completed treatment for conditions other than malignant neoplasm (principal); S82.242D Displaced spiral fracture of shaft of left tibia, subsequent encounter for closed fracture with routine healing; S82.62XD Displaced fracture of lateral malleolus of left fibula, subsequent encounter for closed fracture with routine healing
CPT/HCPCS: 73590; 73610

== ENCOUNTER 2021-01-15 15:51 | Outpatient (RCR) | payer OTHER, SELFPAY | END 2021-01-15 16:24 | disposition home or self-care (01) | LOC: PT 15:51 | PROVIDERS: Visit Provider Orthopaedic Surgery | DX: S82.242D Displaced spiral fracture of shaft of left tibia, subsequent encounter for closed fracture with routine healing (principal); S82.62XD Displaced fracture of lateral malleolus of left fibula, subsequent encounter for closed fracture with routine healing | CPT/HCPCS: 97760 ==

== ENCOUNTER 2021-02-03 16:46 | Emergency (ER) | payer OTHER, SELFPAY ==
[2021-02-03 16:50] VITALS: BP 136/87; PULSE 86; RESP 17; TEMP 37; O2SAT 97; BMI 45.7
--- NOTE | 2021-02-03 17:18 | XR_ITS ---
PROCEDURE INFORMATION: Exam: XR Left Ankle Exam date and time: 02/03/2021 5:18 PM Age: 35 years old Clinical indication: Prior surgery; Surgery date: 1-6 months; Patient HX: Left ankle and pain and swelling after stepping off step; Additional info: Stepped off of step TECHNIQUE: Imaging protocol: XR Left ankle. Views: 3 or more views. COMPARISON: CR XR ANKLE LT MIN 3V 01/15/2021 2:55 PM FINDINGS: Bones/joints: Again appreciated is fixation hardware in the tibia and fibula, as composed by a tibial intramedullary kevin and distal screws, as well as by a lateral fibular compression plate with multiple screws. I do not see any evidence of hardware complications, specifically there is no evidence of hardware loosening or acute periprosthetic fractures appreciated at this time. There is interval periosteal reaction and callus formation as compared with the reference examination, indicating prior fracture healing. No new acutely displaced fractures are appreciated. No dislocation. Soft tissues: There is diffuse soft tissue swelling. IMPRESSION: 1. No acute or new osseous fractures or hardware complications. 2. Interval prior fracture healing, as detailed above. 3. Diffuse soft tissue swelling.
--- NOTE | 2021-02-03 17:18 | HMH.EDUTC ---
[facility] [place] Clinical Impression: Pain and swelling of left ankle Disposition: Home, Self-Care Condition on Discharge: Good Instructions: DI for Chronic Pain -- Adult, DI for Ankle Pain Additional Instructions: *weight bearing as tolerated *RICE, Rest the extremity, Ice 15-20 minutes 3-4 times daily, Compress- wear the jah wrap as discussed as much as possible to help reduce swelling and pain, Elevate the extremity when at rest *Jah wrap is for support and help control swelling, use it except in the shower. Be sure that is not to tight but not to loose either *Elevate when resting *Ibuprofen every 6-8 hours as needed for pain an inflammation. if you are able to take it If need something more can take Tylenol in between doses of Ibuprofen to help Immediately follow up with your family doctor for new or worsening of symptoms, or no noticeable improvement over the next 3-5 [address] Follow up with Dr Lovell, call office tomorrow to see if they can get you in sooner for further evaluation as he is who did your surgery Return if needed Straight to ER if any life threatening symptoms Referrals: Jojo Whyte APRN [Primary Care Provider] - As needed Duong Lovell MD [Staff Physician] - Time of Disposition: 18:09 Medical Decision Making - Olu Inquiry Pt receiving controlled substance: No Olu was queried for this patient: No Vital Signs: 02/03/21 16:50 Temperature 98.6 F Temperature Source Oral Pulse Rate [Right Brachial] 86 Respiratory Rate 17 Blood Pressure [Right Arm] 136/87 Blood Pressure Mean [Right Arm] 103 Blood Pressure Source [Right Arm] Automatic Cuff Blood Pressure Position [Right Arm] Sitting 02 Sat by Pulse Oximetry 97 Oxygen Delivery Method Room Air - Radiology Data #1 Image(s): Ankle (left) Image Reviewed: Yes I have reviewed radiologist's interpretation IMPRESSION: 1. No acute or new osseous fractures or hardware complications. 2. Interval prior fracture healing, as detailed above. 3. Diffuse soft tissue swelling. Medical Decision Narrative: Patient educated to keep ankle/foot above the level of the heart in elevation to help with swelling Dr [facility] performed surgery and had ORIF in Oct. scarring is noted with no open wounds or drainage no redness or warmth Patient educated to follow up with Dr Lovell for further evaluation and treatment if needed [facility] [place] - General Stated complaint: left foot swollen Time Seen by Provider: 02/03/21 17:18 Mode of Arrival: Ambulatory Source of Information: Patient Limitations: No Limitations Description of Symptoms (Recalled from Triage Doc. by RN): PATIENT C/O SWELLING OF LEFT FOOT. STATES ELEVATION AND ICE IS NOT HELPING. STATES THE SWELLING IS MAKING IT DIFFICULT FOR HER TO WALK. ORIF OF LEFT ANKLE EARLIER THIS YEAR HEENT Symptoms (Recalled from RN notes): No Resp Symptoms (Recalled from RN notes): No Skin Symptoms (Recalled from RN notes): No MS Symptoms (Recalled from RN notes): Yes Functional Status (Recalled from RN notes): WNL - History of Present Illness Provider Complaint: Patient states that she has been having swelling to her left foot and ankle area since having ORIF in Oct State that she doesnt recall hurting it but a few days ago her neighbors dog got hit and when she stepped off the porch and felt a pop State that she has been having swelling ever since States that she also has history of DVT but is on blood thinners States that she has been elevating it and putting ice on it but hasnt helped it much - Related Data Home Medications Medication Instructions Recorded Confirmed paroxetine HCl 40 mg tablet 60 mg PO DAILY 10/21/17 02/03/21 Tizanidine HCl [Zanaflex 4mg 6 mg PO TIDP PRN 03/15/18 02/03/21 tab] Apixaban [Eliquis] 5 mg PO BID 11/20/20 02/03/21 Gabapentin [Neurontin 300mg 900 mg PO TID 12/19/20 02/03/21 capsule] Losartan Potassium [Cozaar 50mg 50 mg PO DAILY 02/03/21 02/03/21 Tablets]
[2021-02-03 18:18] VITALS: BP 136/87; PULSE 86; RESP 17; TEMP 37; O2SAT 97
== END 2021-02-03 18:20 | disposition home or self-care (01) ==
PROVIDERS: Emergency Provider Nurse Practitioner; PCP Nurse Practitioner Family
DX: M25.572 Pain in left ankle and joints of left foot (principal); K21.9 Gastro-esophageal reflux disease without esophagitis; M79.7 Fibromyalgia; I10 Essential (primary) hypertension; Z86.718 Personal history of other venous thrombosis and embolism; Z79.899 Other long term (current) drug therapy
CPT/HCPCS: 73610; 99202; G0463

== ENCOUNTER 2021-02-19 13:45 | Emergency (ER) | payer OTHER, SELFPAY ==
[2021-02-19 13:46] VITALS: BP 176/108; PULSE 107; RESP 18; TEMP 36.9; O2SAT 98; BMI 41.3
[2021-02-19 14:08] LABS: Microscopic, Urine URINE MICROSCOPIC (MICROSCOPIC)
[2021-02-19 14:19] LABS: Appearance,Urine CLEAR (Clear); Bilirubin,Urine Negative (Negative); Blood, Urine TRACE-L (Negative); Color,Urine YELLOW (Yellow); Glucose,Urine (UA) Negative (Negative); Ketones,Urine Negative (Negative); Leukocyte Esterase,Urine TRACE (Negative); Nitrate,Urine Negative (Negative); Protein,Urine TRACE (Negative); Urobilinogen,Urine 0.2 EU/dl (0.2)
--- NOTE | 2021-02-19 14:25 | HMH.EDGENADL ---
ED Disposition Clinical Impression: Left flank pain, Cellulitis of breast, Yeast dermatitis, Poison edith dermatitis Disposition: Home, Self-Care Condition on Discharge: Fair Instructions: DI for Flank Pain, DI for Cellulitis -- Adult, DI for Yeast Infection-Skin, DI for Poison Edith Allergy Additional Instructions: Follow-up with Sarah Whyte within 1 to 2 days. Continue Diflucan. Clindamycin and Macrobid as prescribed. Follow-up urine culture results from Sarah Whyte in 2-3 days. Return to the emergency department if fevers greater than 100.5 degrees, severe pain, vomiting. Prescriptions: clindamycin HCL [Clindamycin HCl] 300 mg PO QID #40 cap Transmission Status: Pending to [facility] Nitrofurantoin Monohyd/M-Cryst [Macrobid 100 mg Capsule] 100 mg PO BID #14 cap Transmission Status: Pending to [facility] Referrals: Jojo Whyte APRN [Primary Care Provider] - - Critical Care Critical Care Time: No Attestation: On 02/19/21, the high probability of a clinically significant, sudden or life threatening deterioration of the following system(s) required my full and direct attention, intervention and personal management. The time I documented below is in addition to time spent performing reported procedures but includes the following listed in this critical care notation. Medical Decision Making - Olu Inquiry Pt receiving controlled substance: No Vital Signs: 02/19/21 13:46 Temperature 98.5 F Temperature Source Oral Pulse Rate [Radial] 107 H Respiratory Rate 18 Blood Pressure [Right Arm] 176/108 H Blood Pressure Mean [Right Arm] 130 Blood Pressure Position [Right Arm] Sitting 02 Sat by Pulse Oximetry 98 Oxygen Delivery Method Room Air - Lab Data Lab Results 02/19/21 13:50: Urine Color Yellow, Urine Appearance Clear, Urine pH 7.0, Ur Specific [place] 1.020, Urine Protein Trace, Urine Glucose (UA) Negative, Urine Ketones Negative, Urine Blood Trace-l, Urine Nitrate Negative, Urine Bilirubin Negative, Urine Urobilinogen 0.2, Ur Leukocyte Esterase Trace, Urine RBC Occasional, Urine WBC 5-10, Ur Squamous Epith Cells 3-5, Urine Bacteria 1+ 02/19/21 14:55: WBC 12.8 H, RBC 5.18, Hgb 14.2, Hct 43.6, MCV 84.1, MCH 27.5, MCHC 32.6, RDW 15.1, Plt Count 459 H, MPV 7.6, Neut % (Auto) 76.4, Lymph % (Auto) 15.4, [place] % (Auto) 4.8, Eos % (Auto) 3.2, Baso % (Auto) 0.3, Neut # (Auto) 9.8 H, Lymph # (Auto) 2.0, [place] # (Auto) 0.6, Eos # (Auto) 0.4, Baso # (Auto) 0.0 02/19/21 14:55: Sodium 139, Potassium 4.0, Chloride 105, Carbon Dioxide 23, Anion Gap 15.0, BUN 11, Creatinine 0.70, Estimated Creat Clear 93, Estimated GFR 95, Est GFR ( Amer) 115, Glucose 125 H, Calcium 9.0, Total Bilirubin 0.4, AST 34, ALT 41, Alkaline Phosphatase 103, Total Protein 7.8, Albumin 4.3, Globulin 3.5 H, Albumin/Globulin Ratio 1.2 Result diagrams: 02/19/21 14:55 02/19/21 14:55 Orders (Tests/Meds): ORDERS Category Date Time Status Urine Culture Routine Micro 02/19/21 13:50 Received - CT Data CT Scan: Abdomen, Pelvis Time Received: 15:[address] Reviewed: Yes: I have viewed the radiologist's interpretation Findings Narrative: PROCEDURE: CT ABDOMEN PELVIS WO CON CLINICAL INDICATION: left flank pain COMPARISON: CT CT ABDOMEN WO CON from 12/27/2020 TECHNIQUE: Axial images obtained with sagittal and coronal reformats. All CT scans at the facility use one or more dose reduction, viz: automated exposure control, ma/kV adjustment per patient size (including targeted exams where dose is matched to indication, i.e. head), or iterative reconstruction technique. FINDINGS: LOWER THORAX: Skin thickening is noted along the right lower breast anteriorly. 12 mm nodular opacity medial right breast and 11 mm nodular opacity lateral right breast. Suggest nonemergent mammogram and ultrasound as well as correlation with physical exam. Please correlate with clinical parameters. ABDOMEN & PELVIS: P
--- NOTE | 2021-02-19 14:35 | CT_ITS ---
PROCEDURE: CT ABDOMEN PELVIS WO CON CLINICAL INDICATION: left flank pain COMPARISON: CT CT ABDOMEN WO CON from 12/27/2020 TECHNIQUE: Axial images obtained with sagittal and coronal reformats. All CT scans at the facility use one or more dose reduction, viz: automated exposure control, ma/kV adjustment per patient size (including targeted exams where dose is matched to indication, i.e. head), or iterative reconstruction technique. FINDINGS: LOWER THORAX: Skin thickening is noted along the right lower breast anteriorly. 12 mm nodular opacity medial right breast and 11 mm nodular opacity lateral right breast. Suggest nonemergent mammogram and ultrasound as well as correlation with physical exam. Please correlate with clinical parameters. ABDOMEN & PELVIS: Prior cholecystectomy. The liver, spleen, adrenal glands, and pancreas has an unremarkable appearance. There are bilateral renal calculi measuring up to 3 mm in the upper pole on the right and 8 mm in the lower pole on the left. No ureteral calculi. No bladder calculi. There has been a prior hysterectomy. No intestinal obstruction or free air. There is colonic diverticulosis. No evidence of diverticulitis. Unremarkable appendix. No acute bony findings. Scattered small inguinal lymph nodes are present IMPRESSION: 1. Bilateral renal calculi. No ureteral calculi or hydronephrosis. 2. Colonic diverticulosis without diverticulitis. 3. Prominent skin thickening of the breast on the right. Nodular density involves the medial aspect of the right breast at 12 mm and also in the lateral right breast/axillary region at 11 mm. Suggest nonemergent mammogram and ultrasound for further evaluation. Dictated by: Yg Richter MD 02/19/2021 15:41 Yg Richter MD in [place] 02/19/2021 15:41
[2021-02-19 14:39] LABS: RBC,Urine Occasional #/hpf (0-3)
[2021-02-19 14:40] LABS: Bacteria,Urine 1+ /lpf
[2021-02-19 15:09] LABS: Basophils % 0.3 % (0.1-2.0); Eosinophils # 0.4 K/mm3 (0.0-0.4); Eosinophils % 3.2 % (0.1-12.0); Hematocrit 43.6 % (37.0-47.0); Hemoglobin 14.2 g/dL (12.2-16.2); Lymphocytes % 15.4 % (10-50); Mean Corpuscular HGB Conc 32.6 g/dL (31.8-35.4); Mean Corpuscular Hemoglobin 27.5 pg (27.0-31.2); Mean Corpuscular Volume 84.1 fl (81-99); Mean Platelet Volume 7.6 fl (7.4-10.4); Monocytes # 0.6 K/mm3 (0.1-1.0); Monocytes % 4.8 % (1.7-9.3); Neutrophils # 9.8 K/mm3 (1.8-7.8); Neutrophils % 76.4 % (37.0-80.0); Platelet Count 459 K/mm3 (142-424); Red Blood Count 5.18 M/mm3 (4.20-5.40); Red Cell Distribution Width 15.1 % (11.5-17.5); White Blood Count 12.8 K/mm3 (4.8-10.8)
[2021-02-19 15:19] LABS: Chloride 105 mmol/L (98-107); Sodium 139 mmol/L (136-145)
[2021-02-19 15:22] LABS: Alanine Aminotransferase 41 U/L (12-78); Albumin Level 4.3 g/dl (3.5-5.0); Albumin/Globulin Ratio 1.2 (1.1-1.8); Alkaline Phosphatase 103 U/L (38-126); Aspartate Amino Transferase 34 U/L (14-36); Bilirubin,Total 0.4 mg/dl (0.2-1.3); Blood Urea Nitrogen 11 mg/dl (7-17); Carbon Dioxide 23 mmol/L (22.0-30.0); Creatinine Clearance Estimated 93 mL/min (50-200); Estimated Glomerular Filt Rate 95 ml/min (>60); GFR (African American) 115 ML/MIN (>60); Globulin 3.5 g/dL (1.3-3.2); Glucose 125 mg/dl (74-100); Total Protein,Serum 7.8 g/dl (6.3-8.2)
[2021-02-19 16:40] VITALS: BP 160/89; PULSE 100; RESP 18; TEMP 36.9; O2SAT 98
== END 2021-02-19 16:42 | disposition home or self-care (01) ==
PROVIDERS: Emergency Provider Emergency Medicine; PCP Nurse Practitioner Family
DX: R10.32 Left lower quadrant pain (principal); L23.7 Allergic contact dermatitis due to plants, except food; B37.2 Candidiasis of skin and nail; I10 Essential (primary) hypertension; F41.8 Other specified anxiety disorders; E78.5 Hyperlipidemia, unspecified; M79.7 Fibromyalgia; Z87.442 Personal history of urinary calculi; Z79.899 Other long term (current) drug therapy
CPT/HCPCS: 74176; 80053; 81001; 85025; 87086; 96372; 99283; J1040

== ENCOUNTER 2021-03-01 21:51 | Emergency (ER) | payer OTHER, SELFPAY ==
[2021-03-01 22:02] VITALS: BP 185/120; PULSE 89; RESP 16; TEMP 37.1; O2SAT 98; BMI 45.7
[2021-03-01 22:19] VITALS: BP 170/113
--- NOTE | 2021-03-01 22:34 | HMH.EDSKAF ---
ED Disposition Clinical Impression: Contact dermatitis due to poison edith Hypertension Qualifiers: Hypertension type: essential hypertension Qualified Code(s): I10 - Essential (primary) hypertension Disposition: Home, Self-Care Condition on Discharge: Good Instructions: DI for Poison Edith Allergy Additional Instructions: use meds and benadryl at night and stop medrol dose edd and bp check with pcp Prescriptions: predniSONE [Prednisone 20mg Tab] 20 mg PO BID #10 tab Transmission Status: Pending to [facility] Referrals: Jojo Whyte APRN [Primary Care Provider] - - Critical Care Critical Care Time: No Attestation: On 03/01/21, the high probability of a clinically significant, sudden or life threatening deterioration of the following system(s) required my full and direct attention, intervention and personal management. The time I documented below is in addition to time spent performing reported procedures but includes the following listed in this critical care notation. Medical Decision Making - Medical Records Medical records reviewed: Yes: I reviewed the patient's medical records. - Olu Inquiry Pt receiving controlled substance: No Vital Signs: 03/01/21 22:02 03/01/21 22:19 Temperature 98.8 F Temperature Source Oral Pulse Rate [Right] 89 Respiratory Rate 16 Blood Pressure 170/113 H Blood Pressure [Right Arm] 185/120 H Blood Pressure Mean [Right Arm] 141 Blood Pressure Source [Right Arm] Automatic Cuff Blood Pressure Position [Right Arm] Sitting 02 Sat by Pulse Oximetry 98 Oxygen Delivery Method Room Air - Lab Data Lab results reviewed: Yes: I reviewed the patient's lab results. Medical Decision Narrative: will ask pt to hold medrol dose pack and use meds as directed and see pcp for follow up Skin/Abscess/FB HPI - General Chief complaint: Skin/Abscess/Foreign Body Stated complaint: poison edith all over Time Seen by Provider: 03/01/21 22:20 Mode of Arrival: Ambulatory Source of Information: Patient, Medical Record Limitations: No Limitations Description of Symptoms (Recalled from ER Triage Doc. by RN): C/o poision edith to face, around eyes, neck, side, and legs x 1 week. Seen in ER last week and got Steroid shot, seen family doctor 3 days ago and started steriod dose pack. - History of Present Illness HPI narrative: pt with rash to face and trunk - she has seen pcp and on medrol dos edd and zyrtec - no sob or other c/o MD complaint: rash Onset (ago): day(s) Tetanus up to date: unsure Location: generalized, face Severity: moderate Associated symptoms: denies other symptoms Treatments prior to arrival: corticosteroid - Related Data Home Medications Medication Instructions Recorded Confirmed paroxetine HCl 40 mg tablet 60 mg PO DAILY 10/21/17 02/03/21 Tizanidine HCl [Zanaflex 4mg 6 mg PO TIDP PRN 03/15/18 03/01/21 tab] Apixaban [Eliquis] 5 mg PO BID 11/20/20 03/01/21 Gabapentin [Neurontin 300mg 900 mg PO TID 12/19/20 02/03/21 capsule] Losartan Potassium [Cozaar 50mg 50 mg PO DAILY 02/03/21 02/03/21 Tablets] clindamycin HCL [Clindamycin HCl] 300 mg PO QID 03/01/21 03/01/21 predniSONE [Prednisone 10mg Tab 10 mg PO UD DOSE PK 03/01/21 03/01/21 Dose-Pack] Previous Rx's Medication Instructions Recorded Nitrofurantoin Monohyd/M-Cryst 100 mg PO BID #14 cap 02/19/21 [Macrobid 100 mg Capsule] predniSONE [Prednisone 20mg 20 mg PO BID #10 tab 03/01/21 Tab] Allergies Allergy/AdvReac Type Severity Reaction Status Date / Time Penicillins Allergy Severe Hives Verified 01/15/21 15:41 gatifloxacin [From TEQUIN] Allergy Mild Verified 01/15/21 15:41 ketorolac [From TORADOL] Allergy Mild Verified 01/15/21 15:41 aztreonam [AZTREONAM] Allergy Unknown NA-NAUSEA/V Verified 01/15/21 15:41 OMITING cefaclor [CEFACLOR] Allergy Unknown Verified 01/15/21 15:41 codeine [CODEINE] Allergy Unknown BLEEDING Verified 01/15/21 15
--- NOTE | 2021-03-01 22:40 | PC.NURSE ---
Dr. Rivera with pt, accompanied with Ailin Stone RN
--- NOTE | 2021-03-01 22:41 | PC.NURSE ---
md speaking with patient. conversation was pleasant. no issues noted
[2021-03-01 23:10] VITALS: BP 154/99; PULSE 78; RESP 15; TEMP 36.9; O2SAT 99
== END 2021-03-01 23:12 | disposition home or self-care (01) ==
PROVIDERS: Emergency Provider Emergency Medicine; PCP Nurse Practitioner Family
DX: L23.7 Allergic contact dermatitis due to plants, except food (principal); I10 Essential (primary) hypertension; F41.8 Other specified anxiety disorders; K21.9 Gastro-esophageal reflux disease without esophagitis; E78.5 Hyperlipidemia, unspecified; M79.7 Fibromyalgia; F17.290 Nicotine dependence, other tobacco product, uncomplicated; Z79.899 Other long term (current) drug therapy; Z88.2 Allergy status to sulfonamides; Z88.8 Allergy status to other drugs, medicaments and biological substances
CPT/HCPCS: 99281

== ENCOUNTER 2021-03-29 19:20 | Emergency (ER) | payer OTHER, SELFPAY ==
[2021-03-29 19:40] VITALS: BMI 44.9
--- NOTE | 2021-03-29 19:40 | XR_ITS ---
PROCEDURE INFORMATION: Exam: XR Left Ankle Exam date and time: 03/29/2021 7:40 PM Age: 35 years old Clinical indication: Pain; Ankle; Left; Additional info: Left foot and ankle pain, burning sensation on top of foot TECHNIQUE: Imaging protocol: XR Left ankle. Views: 3 or more views. COMPARISON: CR XR ANKLE LT MIN 3V 02/03/2021 5:21 PM FINDINGS: Bones/joints: Orthopedic hardware in the tibia and fibula is seen. It appears to be intact. Bones are osteopenic. No fracture. No malalignment. Soft tissues: Mild soft tissue swelling is noted. IMPRESSION: No acute osseous abnormality
--- NOTE | 2021-03-29 19:40 | XR_ITS ---
PROCEDURE INFORMATION: Exam: XR Left Foot Exam date and time: 03/29/2021 7:40 PM Age: 35 years old Clinical indication: Pain; Foot; Left; Additional info: Pain, burning sensation on top of foot TECHNIQUE: Imaging protocol: XR Left foot. Views: 3 or more views. COMPARISON: CR XR FOOT LT MIN 3V 12/24/2020 1:01 AM FINDINGS: Bones/joints: Bones appear osteopenic. Hardware seen in the tibia and fibula appears intact. No evidence of fracture. Soft tissues: Mild soft tissue swelling. IMPRESSION: No acute osseous abnormality
[2021-03-29 19:43] VITALS: BP 155/99; PULSE 90; RESP 14; TEMP 36.8; O2SAT 97; BMI 43.9
--- NOTE | 2021-03-29 19:52 | HMH.EDUTC ---
[facility] [place] Clinical [place]ression: Foot sprain Qualifiers: Encounter type: initial encounter Laterality: left Qualified Code(s): S93.602A - Unspecified sprain of left foot, initial encounter Disposition: Home, Self-Care Condition on Discharge: Good Instructions: DI for Foot Pain Additional Instructions: Weightbearing as tolerated rest Ice with cold pack for 20 minutes remove may repeat for comfort every hour Jah wrap for support and swelling no less in the shower. Be sure not too tight but not to lose either Elevate with ankle above your heart as much as possible to help reduce swelling and therefore pain Ibuprofen every 6 hours as needed for pain or inflammation. If needs something more you can take Tylenol every 4 hours as needed as long as her primary care has told he was okayed for you to take both. If improving any do not need to follow-up you can bring begin exercising 2-3 weeks after injury. Follow-up immediately if new or worsening symptoms or no noticeable improvement over the next 3-5 days. call ortho Prescriptions: predniSONE [Prednisone 20mg Tab] 20 mg PO BID #10 tab Prescription Printed Referrals: Jojo Whyte APRN [Primary Care Provider] - Time of Disposition: 20:03 Medical Decision Making - Olu Inquiry Pt receiving controlled substance: No Vital Signs: 03/29/21 19:43 Temperature 98.2 F Temperature Source Oral Pulse Rate [Left] 90 Respiratory Rate 14 Blood Pressure [Right Arm] 155/99 H Blood Pressure Mean [Right Arm] 117 02 Sat by Pulse Oximetry 97 Orders (Tests/Meds): ORDERS Category Date Time Status Foot XR left minimum 3 views [XR foot LT min 3V] Stat Exams 03/29/21 19:40 Taken XR ankle LT min 3V Stat Exams 03/29/21 19:40 Taken - Radiology Data #1 Image(s): Ankle Image Reviewed: Yes I reviewed the patient's radiology image w/the ED provider Preliminary Findings: Normal/NAD [facility] [place] - General Chief complaint: [facility] Stated complaint: pain left foot Time Seen by Provider: 03/29/21 19:52 Mode of Arrival: Ambulatory Source of Information: Patient Limitations: No Limitations Description of Symptoms (Recalled from Triage Doc. by RN): pt c/o pain in her L ankle and foot. pt broke her ankle earlier this year around feb. pt had been very sedentary until recently starting a new job where she walks constantly. HEENT Symptoms (Recalled from RN notes): No Resp Symptoms (Recalled from RN notes): No Skin Symptoms (Recalled from RN notes): No MS Symptoms (Recalled from RN notes): Yes (L ankle and foot pain) Functional Status (Recalled from RN notes): na - History of Present Illness Provider Complaint: 35 yr old female pt c/o pain in her L ankle and foot. pt states she broke her ankle earlier this year around oct. pt had been very sedentary until recently starting a new job where she walks constantly and now foot has started to hurt. - Related Data Home Medications Medication Instructions Recorded Confirmed paroxetine HCl 40 mg tablet 60 mg PO DAILY 10/21/17 02/03/21 Tizanidine HCl [Zanaflex 4mg 6 mg PO TIDP PRN 03/15/18 03/01/21 tab] Apixaban [Eliquis] 5 mg PO BID 11/20/20 03/01/21 Gabapentin [Neurontin 300mg 900 mg PO TID 12/19/20 02/03/21 capsule] Losartan Potassium [Cozaar 50mg 50 mg PO DAILY 02/03/21 02/03/21 Tablets] clindamycin HCL [Clindamycin HCl] 300 mg PO QID 03/01/21 03/01/21 predniSONE [Prednisone 10mg Tab 10 mg PO UD DOSE PK 03/01/21 03/01/21 Dose-Pack] Previous Rx's Medication Instructions Recorded Nitrofurantoin Monohyd/M-Cryst 100 mg PO BID #14 cap 02/19/21 [Macrobid 100 mg Capsule] predniSONE [Prednisone 20mg 20 mg PO BID #10 tab 03/01/21 Tab] predniSONE [Prednisone 20mg 20 mg PO BID #10 tab 03/29/21 Tab] Allergies Allergy/AdvReac Type Severity Reaction Status Date / Time Penicillins Allergy Severe Hives Verified 03/29/21 19:47 gatifloxacin [From TEQUIN] Allergy
[2021-03-29 20:08] VITALS: BP 154/91; PULSE 83; RESP 15; TEMP 36.6
== END 2021-03-29 20:09 | disposition home or self-care (01) ==
PROVIDERS: Emergency Provider Nurse Practitioner Family; PCP Nurse Practitioner Family
DX: S93.602A Unspecified sprain of left foot, initial encounter (principal); X50.3XXA Overexertion from repetitive movements, initial encounter; Y92.9 Unspecified place or not applicable; F41.8 Other specified anxiety disorders; E78.5 Hyperlipidemia, unspecified; I10 Essential (primary) hypertension; K21.9 Gastro-esophageal reflux disease without esophagitis; M79.7 Fibromyalgia; Z87.442 Personal history of urinary calculi; F17.210 Nicotine dependence, cigarettes, uncomplicated
CPT/HCPCS: 73610; 73630; 99202; G0463

== ENCOUNTER 2021-04-28 12:57 | Emergency (ER) | payer OTHER, SELFPAY ==
[2021-04-28 12:58] VITALS: BP 177/105; PULSE 92; RESP 18; TEMP 36.8; O2SAT 96; BMI 43.9
--- NOTE | 2021-04-28 13:49 | HMH.EDGENADL ---
ED Disposition Clinical Impression: Kidney stone on left side Disposition: Home, Self-Care Condition on Discharge: Good Instructions: Kidney Stones -- Adult Prescriptions: Tamsulosin HCl [Flomax 0.4mg capsule] 0.4 mg PO DAILY #7 cap Transmission Status: Pending to [facility] Nitrofurantoin Monohyd/M-Cryst [Macrobid 100 mg Capsule] 100 mg PO BID #20 cap Transmission Status: Pending to [facility] Oxycodone HCl/Acetaminophen [Percocet 7.5-325 mg Tablet] 1 each PO Q6 #12 tablet Transmission Status: Sent to [facility] Promethazine HCl [Phenergan 25mg tab] 25 mg PO Q6H PRN #10 tab PRN Reason: Nausea And Vomiting Transmission Status: Pending to [facility] Referrals: Jojo Whyte APRN [Primary Care Provider] - Orlando Acosta MD [Staff Physician] - 04/29/21 9:00 am - Critical Care Critical Care Time: No Attestation: On 04/28/21, the high probability of a clinically significant, sudden or life threatening deterioration of the following system(s) required my full and direct attention, intervention and personal management. The time I documented below is in addition to time spent performing reported procedures but includes the following listed in this critical care notation. Medical Decision Making - Medical Records Medical records reviewed: Yes: I reviewed the patient's medical records. - Olu Inquiry Pt receiving controlled substance: No Vital Signs: 04/28/21 12:58 Temperature 98.3 F Temperature Source Oral Pulse Rate [Left Radial] 92 H Respiratory Rate 18 Blood Pressure [Right Arm] 177/105 H Blood Pressure Mean [Right Arm] 129 Blood Pressure Source [Right Arm] Automatic Cuff Blood Pressure Position [Right Arm] Sitting 02 Sat by Pulse Oximetry 96 Oxygen Delivery Method Room Air - Lab Data Lab Results 04/28/21 13:42: Urine Color Yellow, Urine Appearance Cloudy, Urine pH 6.0, Ur Specific [place] >= 1.030, Urine Protein 1+, Urine Glucose (UA) Negative, Urine Ketones Negative, Urine Blood 1+, Urine Nitrate Negative, Urine Bilirubin Negative, Urine Urobilinogen 0.2, Ur Leukocyte Esterase 1+ A, Urine RBC 3-5, Urine WBC 10-20, Ur Squamous Epith Cells 10-20, Urine Bacteria 2+ 04/28/21 13:42: WBC 12.9 H, RBC 5.00, Hgb 13.9, Hct 42.4, MCV 84.9, MCH 27.8, MCHC 32.8, RDW 15.3, Plt Count 407, MPV 7.6, Neut % (Auto) 75.0, Lymph % (Auto) 17.8, [place] % (Auto) 4.5, Eos % (Auto) 2.2, Baso % (Auto) 0.5, Neut # (Auto) 9.7 H, Lymph # (Auto) 2.3, [place] # (Auto) 0.6, Eos # (Auto) 0.3, Baso # (Auto) 0.1 04/28/21 13:42: Urine HCG, Qual Negative 04/28/21 13:42: Sodium 141, Potassium 3.6, Chloride 107, Carbon Dioxide 26, Anion Gap 11.6, BUN 15, Creatinine 1.10 H, Estimated Creat Clear 56, Estimated GFR 57 L, Est GFR ( Amer) 68, Glucose 107 H, Calcium 8.9, Total Bilirubin 0.6, AST 35, ALT 29, Alkaline Phosphatase 108, Total Protein 7.6, Albumin 4.1, Globulin 3.5 H, Albumin/Globulin Ratio 1.2, Lipase 203 Result diagrams: 04/28/21 13:42 04/28/21 13:42 Orders (Tests/Meds): ED MEDICATIONS Discontinued Medications Generic Name Dose Route Start Last Admin Trade Name Geeq PRN Reason Stop Dose Admin Acetaminophen 1,000 mg 04/28/21 13:24 04/28/21 13:36 Acetaminophen 500mg Tab PO 04/28/21 13:25 1,000 mg ONCE ONE Administration Oxycodone/Acetaminophen 1 each 04/28/21 15:22 04/28/21 15:28 Oxycodone 7.5mg W/Apap 325mg Tablet PO 04/28/21 15:23 1 each ONCE ONE Administration Promethazine HCl 25 mg 04/28/21 15:32 04/28/21 15:33 Promethazine 25mg Tablet PO 04/28/21 15:33 25 mg ONCE ONE Administration ORDERS Category Date Time Status Urine Culture Stat Micro 04/28/21 13:42 Received - CT Data CT Scan: Abdomen, Pelvis Time Received: 15:[address] Reviewed: Yes: I have reviewed the patient's CT results, I have viewed the radiologist's interpretation Findings Narrative: IMPRESSION: 7 mm left UPJ stone with moderate left-sided hydronephrosi
[2021-04-28 13:50] LABS: Microscopic, Urine URINE MICROSCOPIC (MICROSCOPIC)
[2021-04-28 13:53] LABS: Basophils # 0.1 K/mm3 (0-0.2); Basophils % 0.5 % (0.1-2.0); Eosinophils # 0.3 K/mm3 (0.0-0.4); Eosinophils % 2.2 % (0.1-12.0); Hematocrit 42.4 % (37.0-47.0); Hemoglobin 13.9 g/dL (12.2-16.2); Lymphocytes # 2.3 K/mm3 (0.7-4.5); Lymphocytes % 17.8 % (10-50); Mean Corpuscular HGB Conc 32.8 g/dL (31.8-35.4); Mean Corpuscular Hemoglobin 27.8 pg (27.0-31.2); Mean Corpuscular Volume 84.9 fl (81-99); Mean Platelet Volume 7.6 fl (7.4-10.4); Monocytes # 0.6 K/mm3 (0.1-1.0); Monocytes % 4.5 % (1.7-9.3); Neutrophils # 9.7 K/mm3 (1.8-7.8); Platelet Count 407 K/mm3 (142-424); Red Cell Distribution Width 15.3 % (11.5-17.5); White Blood Count 12.9 K/mm3 (4.8-10.8)
[2021-04-28 13:55] LABS: Appearance,Urine CLOUDY (Clear); Bilirubin,Urine Negative (Negative); Blood, Urine 1+ (Negative); Color,Urine YELLOW (Yellow); Glucose,Urine (UA) Negative (Negative); Ketones,Urine Negative (Negative); Leukocyte Esterase,Urine 1+ (Negative); Nitrate,Urine Negative (Negative); Protein,Urine 1+ (Negative); Specific Gravity, Urine >= 1.030 (1.005-1.030); Urobilinogen,Urine 0.2 EU/dl (0.2)
[2021-04-28 13:57] LABS: Urine Pregnancy, HCG Qual. Negative (Negative)
--- NOTE | 2021-04-28 14:06 | CT_ITS ---
PROCEDURE: CT ABDOMEN PELVIS WO CON CLINICAL INDICATION: left flank Left flank pain COMPARISON: CT CT ABDOMEN PELVIS WO CON from 05/04/[address] ABDOMEN PELVIS WO CON from 02/19/2021 TECHNIQUE: Axial images obtained with sagittal and coronal reformats. All CT scans at the facility use one or more dose reduction, viz: automated exposure control, ma/kV adjustment per patient size (including targeted exams where dose is matched to indication, i.e. head), or iterative reconstruction technique. FINDINGS: LOWER THORAX: No acute finding. Eleven mm nodular opacity is present in lateral aspect of the right breast. This does not appear significantly changed. This 12 mm nodular opacity medial aspect of the right breast is not significantly changed. ABDOMEN & PELVIS: prior cholecystectomy. The liver, spleen, adrenal glands, and pancreas have an unremarkable unenhanced appearance. There is a 6 mm nonobstructing stone in the upper pole of the right kidney. There is moderate left-sided hydronephrosis secondary to a 7 mm stone in the proximal left ureter at the UPJ. Multiple small stones are present in the lower pole of the left kidney. No intestinal obstruction or free air. No evidence of appendicitis. There is colonic diverticulosis but no evidence of diverticulitis. Status post hysterectomy. No acute bony findings. Scattered small nodes are present in the inguinal regions. There is a small left inguinal hernia containing fat. IMPRESSION: 7 mm left UPJ stone with moderate left-sided hydronephrosis. Bilateral nephrolithiasis. Other nonacute findings as described above. Dictated by: Yg Richter MD 04/28/2021 14:57 Yg Richter MD in [place] 04/28/2021 14:57
[2021-04-28 14:15] LABS: Bacteria,Urine 2+ /lpf
[2021-04-28 14:17] LABS: Chloride 107 mmol/L (98-107); Potassium 3.6 mmoL/L (3.5-5.1); Sodium 141 mmol/L (136-145)
[2021-04-28 14:19] LABS: Alanine Aminotransferase 29 U/L (12-78); Aspartate Amino Transferase 35 U/L (14-36); Bilirubin,Total 0.6 mg/dl (0.2-1.3); Blood Urea Nitrogen 15 mg/dl (7-17); Creatinine Clearance Estimated 56 mL/min (50-200); Estimated Glomerular Filt Rate 57 ml/min (>60); GFR (African American) 68 ML/MIN (>60)
--- NOTE | 2021-04-28 14:19 | PC.NURSE ---
Pt to rad
[2021-04-28 14:20] LABS: Albumin Level 4.1 g/dl (3.5-5.0); Albumin/Globulin Ratio 1.2 (1.1-1.8); Alkaline Phosphatase 108 U/L (38-126); Anion Gap 11.6 mEq/L (5-15); Calcium 8.9 mg/dl (8.4-10.2); Carbon Dioxide 26 mmol/L (22.0-30.0); Globulin 3.5 g/dL (1.3-3.2); Glucose 107 mg/dl (74-100); Lipase 203 U/L (23-300); Total Protein,Serum 7.6 g/dl (6.3-8.2)
--- NOTE | 2021-04-28 15:23 | PC.NURSE ---
calling dr ramsey
[2021-04-28 16:01] VITALS: BP 142/89; PULSE 78; RESP 16; TEMP 36.6; O2SAT 98
== END 2021-04-28 16:03 | disposition home or self-care (01) ==
PROVIDERS: Emergency Provider Emergency Medicine; PCP Nurse Practitioner Family
DX: N20.0 Calculus of kidney (principal); N20.1 Calculus of ureter; F41.8 Other specified anxiety disorders; K21.9 Gastro-esophageal reflux disease without esophagitis; E78.5 Hyperlipidemia, unspecified; I10 Essential (primary) hypertension; M79.7 Fibromyalgia; Z87.442 Personal history of urinary calculi; F17.210 Nicotine dependence, cigarettes, uncomplicated
CPT/HCPCS: 74176; 80053; 81001; 81025; 83690; 85025; 87086; 87088; 87186; 99283

== ENCOUNTER → 2021-04-29 09:42 | Outpatient (CLI) | payer OTHER, SELFPAY ==
[2021-04-29 09:47] LABS: Coronavirus 19, PCR Not Detected (NotDetected); Influenza A, PCR Not Detected (NotDetected); Influenza B, PCR Not Detected (NotDetected)
== END ==
PROVIDERS: Visit Provider Urology
DX: N20.0 Calculus of kidney (principal); Z20.822 Contact with and (suspected) exposure to COVID-19
CPT/HCPCS: U0003

== ENCOUNTER 2021-04-30 11:23 | Emergency (ER) | payer OTHER, SELFPAY ==
[2021-04-30 11:25] VITALS: BP 157/103; PULSE 116; RESP 18; TEMP 37.3; O2SAT 96; BMI 45.7
[2021-04-30 11:38] VITALS: BMI 45.7
--- NOTE | 2021-04-30 12:36 | HMH.EDGENADL ---
ED Disposition Clinical Impression: Renal colic Disposition: Home, Self-Care Condition on Discharge: Good Additional Instructions: Return the emergency room for worsening pain fever or any other concerns within the next 8 hours otherwise follow-up as scheduled with urology Referrals: Jojo Whyte APRN [Primary Care Provider] - - Critical Care Critical Care Time: No Attestation: On 04/30/21, the high probability of a clinically significant, sudden or life threatening deterioration of the following system(s) required my full and direct attention, intervention and personal management. The time I documented below is in addition to time spent performing reported procedures but includes the following listed in this critical care notation. Medical Decision Making - Medical Records Medical records reviewed: Yes: I reviewed the patient's medical records. - Olu Inquiry Pt receiving controlled substance: No Vital Signs: 04/30/21 11:25 Temperature 99.2 F Temperature Source Oral Pulse Rate [Left Radial] 116 H Respiratory Rate 18 Blood Pressure [Left Arm] 157/103 H Blood Pressure Mean [Left Arm] 121 Blood Pressure Source [Left Arm] Automatic Cuff Blood Pressure Position [Left Arm] Sitting 02 Sat by Pulse Oximetry 96 Oxygen Delivery Method Room Air Orders (Tests/Meds): ED MEDICATIONS Discontinued Medications Generic Name Dose Route Start Last Admin Trade Name Freq PRN Reason Stop Dose Admin Sodium Chloride 1,000 mls @ 999 mls/hr 04/30/21 11:30 04/30/21 11:44 Sod Chlor 0.9% 1000ml Bag IV 04/30/21 12:30 Not Given .Q1H1M [facility] Morphine Sulfate 4 mg 04/30/21 11:30 04/30/21 11:44 Morphine 4mg/Ml Syringe IV 04/30/21 11:31 Not Given ONCE ONE Morphine Sulfate 4 mg 04/30/21 11:40 04/30/21 11:43 Morphine 4mg/Ml Syringe IM 04/30/21 11:41 4 mg ONCE ONE Administration Promethazine HCl 25 mg 04/30/21 11:31 04/30/21 11:44 Promethazine Hcl 25mg/Ml 1ml Vial IV 04/30/21 11:32 Not Given ONCE ONE Promethazine HCl 25 mg 04/30/21 11:40 04/30/21 11:42 Promethazine Hcl 25mg/Ml 1ml Vial IM 04/30/21 11:41 25 mg ONCE ONE Administration Sodium Chloride 25 ml 04/30/21 11:31 04/30/21 11:44 Sodium Chloride 0.9% 25ml Bag IV 04/30/21 11:32 Not Given ONCE ONE Medical Decision Narrative: 35-year-old female presents with worsening pain from renal colic. She is in no acute distress nontoxic-appearing comfortable in the room. She is mildly tachycardic likely due to pain afebrile in the emergency department. She does decline labs at this time and only request pain medicine. She has procedure scheduled in the outpatient setting and request IM shot for pain medicine she has narcotics at home that she is taking as well. Plan to discharge per return precautions follow-up with Dr. Acosta as scheduled General Adult HPI - General Chief complaint: PAIN Stated complaint: Flank pain Time Seen by Provider: 04/30/21 11:25 Mode of Arrival: Ambulatory Limitations: No Limitations Description of Symptoms (Recalled from ER Triage Doc. by RN): Pt reports she is needing help with pain control. She is scheduled to have a stent placed later this week. Urology office called stating Dr. Acosta is not in the office today so they can't prescribe pt anything for pain. - History of Present Illness HPI narrative: 35-year-old female with known kidney stone presents with worsening pain. She says the pain is located over her left flank and is unchanged but worsening. No dysuria or hematuria. She has procedure scheduled with Dr. Acosta on Wednesday but otherwise is been stable Radiation: non-radiation Severity: moderate Quality: dull Consistency: intermittent - Related Data Home Medications Medication Instructions Recorded Confirmed paroxetine HCl 40 mg tablet 60 mg PO DAILY 10/21/17 04/30/21 Tizanidine HCl [Zanaflex 4mg 6 mg PO TIDP PRN 03/15/18 04/30/21 tab] Fred
[2021-04-30 13:41] VITALS: BP 189/102; PULSE 102; RESP 20; TEMP 37.3; O2SAT 98
== END 2021-04-30 13:41 | disposition home or self-care (01) ==
PROVIDERS: Emergency Provider Emergency Medicine; PCP Nurse Practitioner Family
DX: N23 Unspecified renal colic (principal); M79.7 Fibromyalgia; I10 Essential (primary) hypertension; K21.9 Gastro-esophageal reflux disease without esophagitis; F41.8 Other specified anxiety disorders; F17.210 Nicotine dependence, cigarettes, uncomplicated; Z87.442 Personal history of urinary calculi; Z20.822 Contact with and (suspected) exposure to COVID-19; Z79.899 Other long term (current) drug therapy
CPT/HCPCS: 96372; 99281

== ENCOUNTER 2021-05-01 12:04 | Emergency (ER) | payer OTHER, SELFPAY ==
[2021-05-01 12:05] VITALS: BP 178/90; PULSE 105; RESP 18; TEMP 37.6; O2SAT 98; BMI 45.7
--- NOTE | 2021-05-01 13:17 | HMH.EDGENADL ---
ED Disposition Clinical Impression: Ureteral calculus Disposition: Home, Self-Care Condition on Discharge: Good Instructions: DI for Kidney Stones Additional Instructions: Continue current antibiotic. Percocet for pain. See Dr. Acosta tomorrow for stent placement. Prescriptions: Oxycodone HCl/Acetaminophen [Percocet 7.5-325 mg Tablet] 1 each PO Q6HP PRN #10 tab PRN Reason: Moderate To Severe Pain Transmission Status: Sent to [facility] Referrals: Jojo Whyte APRN [Primary Care Provider] - - Critical Care Critical Care Time: No Attestation: On 05/01/21, the high probability of a clinically significant, sudden or life threatening deterioration of the following system(s) required my full and direct attention, intervention and personal management. The time I documented below is in addition to time spent performing reported procedures but includes the following listed in this critical care notation. Medical Decision Making - Medical Records Medical records reviewed: Yes: I reviewed the patient's medical records. MR Comment: Reviewed most recent CT scan result, reviewed emergency department record from yesterday. - Olu Inquiry Pt receiving controlled substance: Yes Olu was queried for this patient: Yes Risks and benefits of using a controlled substance: were discussed with pt by me Vital Signs: 05/01/21 12:05 Temperature 99.6 F Temperature Source Oral Pulse Rate [Right] 105 H Respiratory Rate 18 Blood Pressure [Right Arm] 178/90 H Blood Pressure Mean [Right Arm] 119 02 Sat by Pulse Oximetry 98 Oxygen Delivery Method Room Air - Lab Data Lab Results 05/01/21 13:25: Urine Color Yellow, Urine Appearance Cloudy, Urine pH 6.0, Ur Specific [place] 1.025, Urine Protein 1+, Urine Glucose (UA) Negative, Urine Ketones Trace, Urine Blood 1+, Urine Nitrate Negative, Urine Bilirubin Negative, Urine Urobilinogen 0.2, Ur Leukocyte Esterase 2+ A, Urine RBC 5-10, Urine WBC 5-10, Ur Squamous Epith Cells 3-5, Urine Bacteria Trace 05/01/21 14:07: WBC 14.1 H, RBC 4.97, Hgb 14.2, Hct 41.1, MCV 82.5, MCH 28.5, MCHC 34.6, RDW 14.8, Plt Count 274 D, MPV 9.6, Neut % (Auto) 78.0, Lymph % (Auto) 10.7, [place] % (Auto) 9.0, Eos % (Auto) 1.8, Baso % (Auto) 0.5, Neut # (Auto) 11.0 H, Lymph # (Auto) 1.5, [place] # (Auto) 1.3 H, Eos # (Auto) 0.3, Baso # (Auto) 0.1 05/01/21 14:07: Sodium 140, Potassium 4.7, Chloride 108 H, Carbon Dioxide 23, Anion Gap 13.7, BUN 15, Creatinine 1.10 H, Estimated Creat Clear 56, Estimated GFR 57 L, Est GFR ( Amer) 68, Glucose 98, Calcium 8.9 Result diagrams: 05/01/21 14:07 05/01/21 14:07 Orders (Tests/Meds): ED MEDICATIONS Discontinued Medications Generic Name Dose Route Start Last Admin Trade Name Freq PRN Reason Stop Dose Admin Hydromorphone HCl 2 mg 05/01/21 13:40 05/01/21 13:57 Hydromorphone 2mg/Ml Syringe IM 05/01/21 13:41 2 mg ONCE ONE Administration Promethazine HCl 25 mg 05/01/21 13:40 05/01/21 13:56 Promethazine Hcl 25mg/Ml 1ml Vial IM 05/01/21 13:41 25 mg ONCE ONE Administration Sodium Chloride 25 ml 05/01/21 13:40 05/01/21 13:57 Sodium Chloride 0.9% 25ml Bag IV 05/01/21 13:41 Not Given ONCE ONE ORDERS Category Date Time Status Urine Culture Stat Micro 05/01/21 13:25 Received - Physician Consults Physician Consulted: Dave Time: 15:00 Reason -: Urology Eval/Care Comment/Response: Discussed all clinical findings. He requests patient continue current antibiotic and follow-up tomorrow for stent placement. Patient states she is out of Percocet. Prescription will be written. General Adult HPI - General Chief complaint: PAIN Stated complaint: kidney stone with pain Time Seen by Provider: 05/01/21 13:30 Mode of Arrival: Family Vehicle Limitations: No Limitations Description of Symptoms (Recalled from ER Triage Doc. by RN): Patient c/o left flank pain. Patient reports she has a known kidney stone and is supposed to
--- NOTE | 2021-05-01 13:19 | PC.NURSE ---
Roxie Jensen is calling specialty clinic at this time to attempt to speak with Dr Serrano
[2021-05-01 13:34] LABS: Microscopic, Urine URINE MICROSCOPIC (MICROSCOPIC)
[2021-05-01 13:35] LABS: Appearance,Urine CLOUDY (Clear); Bilirubin,Urine Negative (Negative); Blood, Urine 1+ (Negative); Color,Urine YELLOW (Yellow); Glucose,Urine (UA) Negative (Negative); Ketones,Urine TRACE (Negative); Leukocyte Esterase,Urine 2+ (Negative); Nitrate,Urine Negative (Negative); Protein,Urine 1+ (Negative); Specific Gravity, Urine 1.025 (1.005-1.030); Urobilinogen,Urine 0.2 EU/dl (0.2)
--- NOTE | 2021-05-01 13:39 | PC.NURSE ---
Lab is going to come draw blood on pt
[2021-05-01 13:40] LABS: Bacteria,Urine Trace /lpf
[2021-05-01 14:28] LABS: Chloride 108 mmol/L (98-107); Potassium 4.7 mmoL/L (3.5-5.1); Sodium 140 mmol/L (136-145)
[2021-05-01 14:31] LABS: Anion Gap 13.7 mEq/L (5-15); Blood Urea Nitrogen 15 mg/dl (7-17); Calcium 8.9 mg/dl (8.4-10.2); Carbon Dioxide 23 mmol/L (22.0-30.0); Creatinine Clearance Estimated 56 mL/min (50-200); Estimated Glomerular Filt Rate 57 ml/min (>60); GFR (African American) 68 ML/MIN (>60); Glucose 98 mg/dl (74-100)
[2021-05-01 14:32] LABS: Basophils # 0.1 K/mm3 (0-0.2); Basophils % 0.5 % (0.1-2.0); Eosinophils # 0.3 K/mm3 (0.0-0.4); Eosinophils % 1.8 % (0.1-12.0); Hematocrit 41.1 % (37.0-47.0); Hemoglobin 14.2 g/dL (12.2-16.2); Lymphocytes # 1.5 K/mm3 (0.7-4.5); Lymphocytes % 10.7 % (10-50); Mean Corpuscular HGB Conc 34.6 g/dL (31.8-35.4); Mean Corpuscular Hemoglobin 28.5 pg (27.0-31.2); Mean Corpuscular Volume 82.5 fl (81-99); Mean Platelet Volume 9.6 fl (7.4-10.4); Monocytes # 1.3 K/mm3 (0.1-1.0); Platelet Count 274 K/mm3 (142-424); Red Blood Count 4.97 M/mm3 (4.20-5.40); Red Cell Distribution Width 14.8 % (11.5-17.5); White Blood Count 14.1 K/mm3 (4.8-10.8)
--- NOTE | 2021-05-01 15:00 | PC.NURSE ---
speaking with Dr Acosta at this time
[2021-05-01 15:35] VITALS: BP 167/107; PULSE 112; RESP 16; TEMP 36.7; O2SAT 92
== END 2021-05-01 15:36 | disposition home or self-care (01) ==
PROVIDERS: Emergency Provider Emergency Medicine; PCP Nurse Practitioner Family
DX: N20.1 Calculus of ureter (principal); F41.8 Other specified anxiety disorders; K21.9 Gastro-esophageal reflux disease without esophagitis; E78.5 Hyperlipidemia, unspecified; I10 Essential (primary) hypertension; M79.7 Fibromyalgia; Z87.442 Personal history of urinary calculi; F17.210 Nicotine dependence, cigarettes, uncomplicated; Z79.899 Other long term (current) drug therapy; Z88.0 Allergy status to penicillin; Z88.2 Allergy status to sulfonamides
CPT/HCPCS: 80048; 81001; 85025; 87086; 96372; 99282

== ENCOUNTER 2021-05-02 09:36 | Day surgery (SDC) | payer OTHER, SELFPAY ==
[2021-04-30 12:29] VITALS: BMI 45.7
[2021-05-02] VITALS (9 sets, daily range): BP systolic 134–164; BP diastolic 65–103; PULSE 101–118; RESP 14–18; TEMP 36.4–36.8; O2SAT 92–97
--- NOTE | 2021-05-02 12:08 | XR_ITS ---
PROCEDURE: XR KUB CLINICAL INDICATION: STENT PLACEMENT IN OR COMPARISON: No exams were available for comparison FINDINGS: Fluoroscopy time: 62 seconds Two images are submitted showing a left ureteral stent in place. The cephalad aspect is difficult to visualize due to artifact. The distal aspect is also not well delineated due to overlying artifact but appears to be curled in the lower pelvic area on the left.. IMPRESSION: Left ureteral stent placement with C-arm assistance. Please correlate with fluoroscopic findings regarding position Dictated by: Yg Richter MD 05/02/2021 12:49 Yg Richter MD in [place] 05/02/2021 12:49
--- NOTE | 2021-05-02 12:09 | P.PN_ITS ---
[facility] Anesthesia Checklist - Structural Data Admitted From: Home Planned Operative Procedure/s: ureteroscopy Consent for Planned Operative Procedure(s) Verified: Yes - Additional verifications Anesthesia Reactions: No Hx Blood Transfusions: No Blood Transfusion Reaction: No - Airway Assessment C-Spine Mobility Assessed: Yes TMJ Mobility Assessed: Yes Dentition: Poor Dentition - Neurological Assessment Level of Consciousness: Awake, Alert, Appropriate - Anesthesia Plan Anesthesia Risk discussed: Yes Anesthesia Plan: Verified ASA Class: III Anesthesia Type: General [facility] History I have reviewed the patient's past medical history: Yes 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: Reports:: Anxiety, Asthma, Depression, Gastroesophageal Reflux Disease(GERD), Hyperlipidemia, Hypertension, Kidney Stones, Migraine Denies:: Cancer, Diabetes Mellitus Type 1, Diabetes Mellitus Type 2, Internal Pacemaker, MRSA, Seizures *Have you ever received a pneumonia vaccine?: No *Have you received a flu vaccine this season?: No Other 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: Reports: Fibromyalgia, Other. Denies: Blood Transfusion Reaction Anesthesia experience/problems:: none Laterality Cases: Left: Other, Bilateral: Myringotomy (Ear Tubes), Tonsillectomy Other Surgeries: Yes: No Previous Surgery, Cholecystectomy, Hernia Repair, Hysterectomy-Total, Ureter Stent, Other. No: Pacemaker Amputation: No Fractures: Yes - *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 Last grade of school completed: Some college Smoking Status: Current every day smoker Tobacco Type: smokeless tobacco # Packs/Day (cigarettes): 0 Alcohol Intake: current Alcohol Intake Frequency:: holidays/special occasions only Substance Use Type: denies use *Occupational Status:: employed Housing: house Household Members: friend(s) *Travel in the last 8 weeks: None - Psychiatric History Pschychiatric History:: Reports:: Anxiety, Depression, Post Traumatic Stress Disorder Family Hx:: Unable to obtain
--- NOTE | 2021-05-02 12:10 | HMH.ANESI ---
[facility] Anesthesia Record Part I Intake, IV Amount: 500 Estimated blood loss (mL): 0 Urine output (mL): 0 Blood Pressure: 140/100 SaO2: 94 Pulse Rate: 108 Respiratory Rate: 14 Temperature: 98.3 F Patient is:: Awake, Stable Stable to PACU at:: 12:05
--- NOTE | 2021-05-02 12:42 | P.OP_ITS ---
Date of procedure: 05/02/21 Pre-op Diagnosis:: 7 mm left proximal ureteral stone Post-op Diagnosis:: 7 mm left proximal ureteral stone with obstruction Procedure performed:: Cystoscopy with left ureteral stone manipulation and left stent placement Surgeon:: Orlando Acosta MD INTERIOR SURFACE INSULATION WORKER:: Shawn Adkins Anesthesia: LMA Estimated blood loss (mL): 0 Clinical Note:: Patient is a 35-year-old white female with a history of nephrolithiasis. She has had some recent left-sided flank pain and CT scan shows a 7 mm proximal left ureteral stone. She presents today for urologic management. Operative findings:: The 7 mm stone was still in the proximal ureter. Once a guidewire passed by the stone there was a lot of debris from the left renal pelvis and it was decided to just manipulate the stone and not try to extract the stone today as it was very high in the ureter and I did not want to back washing the bacteria into the kidney. Operative note:: Patient taken to the operating room after informed consent was obtained. General anesthesia was administered and preoperative antibiotics and sequential compression devices placed. She was then placed into the dorsal lithotomy position and prepped draped in the standard surgical fashion. The 22 Turkmen cystoscope passed into the urethra and easily into the bladder. The bladder was examined in a systematic fashion. There was no evidence of stones, mucosal abnormalities or diverticula. Guidewire was passed into the left ureteral orifice and by the stone. A lot of particulate debris came through the ureter after decompression. It was decided to not extract the stone today as it was still very high in the proximal ureter and there was risk of refluxing any bacterial elements into the kidney. A ureteral catheter was used to manipulate the proximal stone back into the kidney and the guidewire was then passed through the ureteral catheter and the ureteral catheter removed. A 4.8 x 24 Turkmen stent was placed over the guidewire and the guidewire removed under fluoroscopy. A good curl was noted proximally and distally. There was good efflux of urine from the left renal pelvis through the stent. Patient tolerated the procedure well. Condition: stable Disposition: same day Specimens:: None Complications:: None
--- NOTE | 2021-05-02 13:11 | SUR.PHASEII ---
1300-DR THIBODEAUX AT BEDSIDE TALKING TO PT ABOUT PT REQUEST FOR PAIN MEDS AT HOME. DR THIBODEAUX TOLD PT NO PAIN MEDS AT HOME. PT VERBALIZED UNDERSTANDING.
--- NOTE | 2021-05-07 07:20 | P.PN_ITS ---
[facility] Anesthesia Record Part II Discharge Time: 12:35 Destination: Surgical Day Care (OP Surgery) PACU nurse assessment reviewed?: Yes Patient Condition:: Good Anesthesia Complications:: None Swallowing reflex intact?: Yes Cyanosis?: No Blood Pressure: 138/65 Pulse Rate: 103 Temperature: 98.2 F Mental Status: Alert & Oriented Pain level:: 0 Nausea and/or vomitting:: None Intake, IV Amount: 0
[2021-05-07 07:21] VITALS: BP 138/65; PULSE 103; TEMP 36.8
== END 2021-05-02 13:10 | disposition home or self-care (01) ==
LOC: OR 09:37
PROVIDERS: PCP Nurse Practitioner Family; Visit Provider Urology
PROC: 0TJB8ZZ Inspection of Bladder, Via Natural or Artificial Opening Endoscopic (ICD-10-PCS; CPT 52000; principal; 2021-05-02 10:30)
DX: N20.1 Calculus of ureter (principal); J45.909 Unspecified asthma, uncomplicated; K21.9 Gastro-esophageal reflux disease without esophagitis; E78.5 Hyperlipidemia, unspecified; I10 Essential (primary) hypertension; G43.909 Migraine, unspecified, not intractable, without status migrainosus; F41.9 Anxiety disorder, unspecified; F32.9 Major depressive disorder, single episode, unspecified; M79.18 Myalgia, other site; Z90.49 Acquired absence of other specified parts of digestive tract; Z72.0 Tobacco use; Z88.0 Allergy status to penicillin
CPT/HCPCS: 52330; 74018; 76000; 96374; C2617

== ENCOUNTER → 2021-05-08 10:52 | Outpatient (CLI) | payer OTHER, SELFPAY ==
--- NOTE | 2021-05-08 10:55 | XR_ITS ---
PROCEDURE: XR KUB CLINICAL INDICATION: ureteral stone COMPARISON: CT CT ABDOMEN PELVIS WO CON from 04/28/2021 FINDINGS: Left ureteral stent remains in place. Multiple stones overlying the region of the left renal pelvis or UPJ. The proximal aspect of the stent overlies the region of the left renal pelvis. The distal aspect of the stent is urethral region. No obvious ureteral calculi. IMPRESSION: Low position of the distal aspect of the ureteral stent in the region of the urethra. Left nephrolithiasis Dictated by: Yg Richter MD 05/08/2021 12:19 Yg Richter MD in [place] 05/08/2021 12:19
== END ==
PROVIDERS: PCP Nurse Practitioner Family; Visit Provider Urology
DX: N20.1 Calculus of ureter (principal)
CPT/HCPCS: 74018

== ENCOUNTER 2021-05-19 10:31 | Emergency (ER) | payer OTHER, SELFPAY ==
[2021-05-19 10:38] VITALS: BP 131/91; PULSE 103; RESP 18; TEMP 37; O2SAT 97; BMI 45.7
[2021-05-19 13:00] VITALS: BP 131/91; PULSE 103; RESP 18; TEMP 37; O2SAT 97; BMI 46.0
--- NOTE | 2021-05-19 13:17 | HMH.EDUTC ---
[facility] Disposition Clinical Impression: Bronchitis Sinusitis Qualifiers: Sinusitis location: unspecified location Chronicity: unspecified Qualified Code(s): J32.9 - Chronic sinusitis, unspecified Disposition: Home, Self-Care Condition on Discharge: Good Instructions: Sinusitis, Acute Bronchitis, DI for Sinusitis, DI for Pleurisy Additional Instructions: ? Start antibiotic today. Be sure to complete entire prescription even if feeling better ? Monitor temp. Tylenol every 4 hours as needed and / or ibuprofen every 6 hours as needed ( As long as your primary care physician has told you that it ok to take both. For fever/aches/pains ER if no less than 101 despite Tylenol or Motrin ? Humidifier/vaporizer or hot steamy shower ? Inhaler every 4-6 hours as needed like we discussed. If unsure how to use it, ask pharmacist to demonstrate how. Should help open airways and improve cough, wheezing, and shortness of breath ? Mucinex during the day for your cough and cough suppressant only at night. Be sure to drink lots of water. Insurance may not cover a prescriptions for mucinex. Might be cheaper to get 400mg tablets and take 2 tablet in the morning, mid-day and evening with lots of water. *Start steroid tomorrow. Helps with inflammation therefore, cough and wheezing. Follow directions on the package. Reviewed side effects. Patient reports taking them before. Follow up IMMEDIATELY for new or worsening of symptoms OR no noticeable improvement over the next 48-72 hours. 911 immediately for any life threatening symptoms such as chest pain or difficulty breathing Prescriptions: predniSONE [Deltasone 10mg tablet] 10 mg PO BID 5 Days #10 tab Transmission Status: Received by [facility] Azithromycin [Z-Joshua 250mg Tab] 250 mg PO DIRECTED #6 tab Transmission Status: Received by [facility] Referrals: Jojo Whyte APRN [Primary Care Provider] - As needed Time of Disposition: 13:58 Medical Decision Making - Olu Inquiry Pt receiving controlled substance: No Olu was queried for this patient: No Vital Signs: 05/19/21 10:38 05/19/21 13:00 05/19/21 13:46 Temperature 98.6 F 98.6 F 98.6 F Temperature Source Oral Oral Pulse Rate 103 H Pulse Rate [Right Radial] 103 H 103 H Respiratory Rate 18 18 18 Blood Pressure 131/91 H Blood Pressure [Left Arm] 131/91 H 131/91 H Blood Pressure Mean [Left Arm] 104 104 Blood Pressure Source [Left Arm] Automatic Cuff Automatic Cuff Blood Pressure Position [Left Arm] Sitting Sitting 02 Sat by Pulse Oximetry 97 97 Oxygen Delivery Method Room Air Room Air Orders (Tests/Meds): ED MEDICATIONS Discontinued Medications Generic Name Dose Route Start Last Admin Trade Name Silke PRN Reason Stop Dose Admin Ceftriaxone Sodium 1 gm 05/19/21 13:32 05/19/21 13:45 Ceftriaxone 1gm Vial IM 05/19/21 13:33 1 gm ONCE ONE Administration Lidocaine HCl 0 ml 05/19/21 13:32 05/19/21 13:45 Lidocaine 1% 5ml Pf Vial IM 05/19/21 13:33 2.1 ml ONCE ONE Administration Methylprednisolone Sodium Succinate 125 mg 05/19/21 13:32 05/19/21 13:45 Methylprednisolone Sod Succ 125mg Vial IM 05/19/21 13:33 125 mg ONCE ONE Administration Medical Decision Narrative: Patient states that she is allergic to PCN but has taken Rocephin in the past without reactions or complications Patient states that she has taken [facility] HPI - General Stated complaint: cough, back pain Time Seen by Provider: 05/19/21 13:17 Mode of Arrival: Ambulatory Source of Information: Patient Limitations: No Limitations Description of Symptoms (Recalled from Triage Doc. by RN): Pt c/o cough x2 weeks that is now causing her back to hurt. - History of Present Illness Provider Complaint: Patient state that she has been having sinus pain and pressure and cough and feeling like it is running down the back of her throat States that she has pain at times in her left upper back area States that she w
[2021-05-19 13:46] VITALS: BP 131/91; PULSE 103; RESP 18; TEMP 37; O2SAT 97
== END 2021-05-19 14:00 | disposition home or self-care (01) ==
PROVIDERS: Emergency Provider Nurse Practitioner; PCP Nurse Practitioner Family
DX: J20.9 Acute bronchitis, unspecified (principal); J32.9 Chronic sinusitis, unspecified; F41.8 Other specified anxiety disorders; K21.9 Gastro-esophageal reflux disease without esophagitis; E78.5 Hyperlipidemia, unspecified; I10 Essential (primary) hypertension; F17.210 Nicotine dependence, cigarettes, uncomplicated; Z87.442 Personal history of urinary calculi; Z79.899 Other long term (current) drug therapy; Z88.0 Allergy status to penicillin; Z88.2 Allergy status to sulfonamides; Z88.5 Allergy status to narcotic agent; Z88.8 Allergy status to other drugs, medicaments and biological substances
CPT/HCPCS: 96372; 99202; G0463

== ENCOUNTER 2021-05-19 23:31 | Emergency (ER) | payer OTHER, SELFPAY ==
[2021-05-19 23:32] VITALS: BP 176/99; PULSE 125; RESP 18; TEMP 36.4; O2SAT 98; BMI 45.7
--- NOTE | 2021-05-20 00:04 | XR_ITS ---
PROCEDURE INFORMATION: Exam: XR Chest Exam date and time: 05/20/2021 12:04 AM Age: 35 years old Clinical indication: Cough and other: Congestion; Patient HX: Cough and congestion, patient stated she got a rocephin antibiotic shot earlier today at another healthcare facility also oral antibiotic she cant pickup till tomorrow after labor day. TECHNIQUE: Imaging protocol: XR of the chest. Views: 2 views. COMPARISON: CR CXR1VP XR chest portable 05/20/2018 3:01 PM FINDINGS: Lungs: Unremarkable. No consolidation. Pleural spaces: Unremarkable. No pleural effusion. No pneumothorax. Heart/Mediastinum: Unremarkable. No cardiomegaly. Bones/joints: Unremarkable. IMPRESSION: No acute findings.
[2021-05-20 00:12] LABS: Coronavirus 19, PCR Not Detected (NotDetected); Influenza A, PCR Not Detected (NotDetected); Influenza B, PCR Not Detected (NotDetected)
--- NOTE | 2021-05-20 00:27 | PC.NURSE ---
Unable to obtain peripheral IV, multiple sticks to pt by staff.
--- NOTE | 2021-05-20 01:23 | HMH.EDURI ---
ED Disposition Clinical Impression: Reactive airway disease with wheezing Qualifiers: Asthma severity: moderate Asthma persistence: persistent Asthma complication type: with acute exacerbation Qualified Code(s): J45.41 - Moderate persistent asthma with (acute) exacerbation Disposition: Home, Self-Care Condition on Discharge: Good Instructions: DI for Acute Bronchitis Additional Instructions: fluids and see pcp for follow up Prescriptions: Benzonatate [Tessalon Perle 100mg Cap] 100 mg PO TID #30 cap Transmission Status: Pending to [facility] Referrals: Jojo Whyte APRN [Primary Care Provider] - - Critical Care Critical Care Time: No Attestation: On 05/19/21, the high probability of a clinically significant, sudden or life threatening deterioration of the following system(s) required my full and direct attention, intervention and personal management. The time I documented below is in addition to time spent performing reported procedures but includes the following listed in this critical care notation. Medical Decision Making - Medical Records Medical records reviewed: Yes: I reviewed the patient's medical records. - Olu Inquiry Pt receiving controlled substance: No Vital Signs: 05/19/21 23:32 Temperature 97.6 F Temperature Source Oral Pulse Rate [Right] 125 H Respiratory Rate 18 Blood Pressure [Right Arm] 176/99 H Blood Pressure Mean [Right Arm] 124 Blood Pressure Source [Right Arm] Automatic Cuff 02 Sat by Pulse Oximetry 98 Oxygen Delivery Method Room Air - Lab Data Lab results reviewed: Yes: I reviewed the patient's lab results. Lab Results 05/20/21 00:00: SARS-CoV-2 (PCR) Not detected, Influenza A Untype (PCR) Not detected, Influenza Type B (PCR) Not detected Orders (Tests/Meds): ED MEDICATIONS Generic Name Dose Route Start Last Admin Trade Name Freq PRN Reason Stop Dose Admin Benzonatate 100 mg 05/20/21 01:15 05/20/21 01:10 Benzonatate 100mg Capsule PO 06/19/21 01:14 100 mg ONCE JUANA Administration ORDERS Category Date Time Status C-Reactive Protein Stat Lab 05/20/21 00:04 Ordered Complete Blood Count Auto Diff Stat Lab 05/20/21 00:04 Ordered Comprehensive Metabolic Panel Stat Lab 05/20/21 00:04 Ordered ESR [Erythrocyte Sedimentation Rate] Stat Lab 05/20/21 00:04 Ordered Procalcitonin Stat Lab 05/20/21 00:04 Ordered - Radiology Data #1 Image(s): Chest Image Reviewed: Yes I have reviewed radiologist's interpretation Preliminary Findings: Normal/NAD Medical Decision Narrative: stable exam and labs and xray URI/Sore Throat HPI - General Chief Complaint: Upper Respiratory Infection Stated Complaint: cough is worsening Time Seen by Provider: 05/20/21 01:23 Mode of Arrival: Family Vehicle Source of Information: Patient, Medical Record Limitations: No Limitations Description of Symptoms (Recalled from ER Triage Doc. by RN): Pt c/o cough, congestion, and back pain d/t from coughing. Pt was seen at the [facility] earlier today and was prescribed Z-pack and prednisone however she was not able to fill the prescription d/t pharmacy closed. [facility] did give IM injectctions of Rocephin and Steroids. Pt reports she has taken robitussin and mucinex to try and help her cough & congestion but states these have not helped. She denies any SOA or productive cough. She denies any known exposure to covid, and reports she has been dx with pleurisy and bronchitis recently. - History of Present Illness HPI Narrative: recent dx with cough and bronchitis MD Complaint: nasal congestion Onset (ago): day(s) Severity: moderate Able to tolerate fluids by mouth: Yes Context: sick contacts Associated symptoms: denies other symptoms Treatments prior to arrival: none - Related Data Home Medications Medication Instructions Recorded Confirmed paroxetine HCl 40 mg tablet 60 mg PO DAILY 10/21/17 05/08/21 Tizanidine HCl [Zanaflex 4mg 6 mg PO TIDP PRN 03/15
[2021-05-20 01:26] VITALS: BP 176/86; PULSE 99; RESP 18; TEMP 36.8; O2SAT 98
[2021-05-20 01:35] VITALS: BP 168/86; PULSE 98; RESP 20; TEMP 36.8; O2SAT 97
== END 2021-05-20 01:37 | disposition home or self-care (01) ==
PROVIDERS: Emergency Provider Emergency Medicine; PCP Nurse Practitioner Family
DX: J45.41 Moderate persistent asthma with (acute) exacerbation (principal); Z20.822 Contact with and (suspected) exposure to COVID-19; J20.9 Acute bronchitis, unspecified; F41.8 Other specified anxiety disorders; K21.9 Gastro-esophageal reflux disease without esophagitis; E78.5 Hyperlipidemia, unspecified; I10 Essential (primary) hypertension; F17.210 Nicotine dependence, cigarettes, uncomplicated; Z87.442 Personal history of urinary calculi; Z79.899 Other long term (current) drug therapy; Z88.0 Allergy status to penicillin; Z88.2 Allergy status to sulfonamides; Z88.5 Allergy status to narcotic agent; Z88.8 Allergy status to other drugs, medicaments and biological substances
CPT/HCPCS: 71046; 99282; U0003

== ENCOUNTER 2021-05-23 07:21 | Day surgery (SDC) | payer OTHER, SELFPAY ==
[2021-05-20 09:00] VITALS: BMI 45.7
[2021-05-23] VITALS (11 sets, daily range): BP systolic 138–179; BP diastolic 90–104; PULSE 90–101; RESP 16–20; TEMP 36.1–43; O2SAT 93–98
--- NOTE | 2021-05-23 09:05 | P.PN_ITS ---
[facility] Anesthesia Checklist - Patient Identification Patient Identification: Arm Band - Structural Data Admitted From: Home Planned Operative Procedure/s: Left ESWL Consent for Planned Operative Procedure(s) Verified: Yes Verified Documents: Surgical Consent, History and Physical - NPO Status Verified Time NPO: 00:00 - Additional verifications Anesthesia Reactions: Yes (CRYING) Hx Blood Transfusions: No Blood Transfusion Reaction: No - Airway Assessment C-Spine Mobility Assessed: Yes (mp2) TMJ Mobility Assessed: Yes Dentition: Poor Dentition - Neurological Assessment Level of Consciousness: Awake, Alert - Anesthesia Plan Anesthesia Risk discussed: Yes Anesthesia Plan: Verified ASA Class: III Anesthesia Type: General [facility] History I have reviewed the patient's past medical history: Yes 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: Reports:: Anxiety, Asthma, Depression, Gastroesophageal Reflux Disease(GERD), Hyperlipidemia, Hypertension, Kidney Stones, Migraine Denies:: Cancer, Diabetes Mellitus Type 1, Diabetes Mellitus Type 2, Internal Pacemaker, MRSA, Seizures *Have you ever received a pneumonia vaccine?: Yes *Have you received a flu vaccine this season?: Yes Other 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: Reports: Fibromyalgia, Other. Denies: Blood Transfusion Reaction Anesthesia experience/problems:: nac Laterality Cases: Left: Other, Bilateral: Myringotomy (Ear Tubes), Tonsillectomy Other Surgeries: Yes: Cholecystectomy, Colonoscopy, Hernia Repair, Hysterectomy- Total, Ureter Stent, Other. No: Pacemaker Amputation: No Fractures: Yes - *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 Last grade of school completed: High school graduate Smoking Status: Unknown if ever smoked Tobacco Type: smokeless tobacco # Packs/Day (cigarettes): 1 Alcohol Intake: current Alcohol Intake Frequency:: holidays/special occasions only Substance Use Type: denies use *Occupational Status:: unemployed Housing: house Household Members: friend(s) *Travel in the last 8 weeks: None - Psychiatric History Pschychiatric History:: Reports:: Anxiety, Depression, Post Traumatic Stress Disorder Family Hx:: No significant family history
--- NOTE | 2021-05-23 10:04 | HMH.ANESI ---
[facility] Anesthesia Record Part I Intake, IV Amount: 400 Estimated blood loss (mL): 0 Urine output (mL): 0 Blood Pressure: 143/100 SaO2: 93 Pulse Rate: 99 Respiratory Rate: 16 Temperature: 97.2 F Patient is:: Drowsy, Stable Stable to PACU at:: 10:00
--- NOTE | 2021-05-23 10:41 | PC.NURSE ---
PT ARRIVED TO POST-OP [facility]ERENT AND WANTING TO GET DRESSED IMMEDIATELY, DEMANDING SEVERAL THINGS. WANTING TO KNOW WHEN CAN LEAVE, WANTS IV OUT NOW. INSTRUCTING PT THAT HAVE TO ENSURE SHE IS STABLE BEFORE DISCHARGE AND GET DISCHARGE INSTRUCTIONS TOGETHER. SAID OK.
--- NOTE | 2021-05-23 10:55 | SUR.PHASEII ---
PT DEMANDED THAT RN GET A A LIST OF MEDICATIONS SHE HAS HAD WHILE IN SURGERY B/C SHE HAS TO DO DRUG TESTING. INSTRUCTED PT ON POSTURAL DRAINAGE AND PERCUSSION BUT PT SAID THAT THERE IS NO WAY SHE CAN DO THAT B/C SHE HAS NO ONE TO HELP HER. REFUSED W/C TO DISCHARGE -WANTED TO GET BREAKFAST. PT AND FAMILY MEMBER WALKED OUT OF POST OP AREA WITHOUT DIFFICULTY. GAIT STEADY, NO C/O PAIN, RESPIRATION EVEN AND EASY.
--- NOTE | 2021-05-23 13:06 | HMH.OPNOTE ---
Date of procedure: 05/23/21 Pre-op Diagnosis:: Left kidney stones Post-op Diagnosis:: Left kidney stones Procedure performed:: Left ESWL Surgeon:: Orlando Acosta MD FLIGHT ENGINEER INSTRUCTOR:: Johnnie Gilliam Anesthesia: LMA Estimated blood loss (mL): 0 Clinical Note:: 35-year-old white female with history of nephrolithiasis and recent renal colic and underwent cystoscopy with stone manipulation and left-sided stent placement. The stent became dislodged and was removed however the stone had remained in the left kidney and patient presents today for urologic intervention. Operative findings:: Fluoroscopy revealed calculi in the left lower and left middle pole. ESWL was performed with good fragmentation. Operative note:: Patient taken to the operating room after informed consent was obtained. She was placed on the operating room table and general anesthesia administered. She was positioned on the table so that the stones were at F2 the lithotripter. She was padded and positioned appropriately. Fluoroscopy revealed the calculi in the left kidney very easily. 3000 shockwaves were delivered to the stone with apparent good fragmentation. Maximum energy level of 7 was obtained. Patient tolerated the procedure well was discharged to recovery room postoperatively. Routine instructions with pushing fluids and straining her urine were given. Condition: stable Disposition: PACU Specimens:: None Complications:: None
--- NOTE | 2021-05-26 14:15 | HMH.ANESII ---
[facility] Anesthesia Record Part II Discharge Time: 10:35 Destination: Surgical Day Care (OP Surgery) PACU nurse assessment reviewed?: Yes Patient Condition:: Good Anesthesia Complications:: None Swallowing reflex intact?: Yes Cyanosis?: No Blood Pressure: 138/98 Pulse Rate: 90 Temperature: 97.2 F Mental Status: Alert & Oriented Pain level:: 7 Nausea and/or vomitting:: None Intake, IV Amount: 0
[2021-05-26 14:16] VITALS: BP 138/98; PULSE 90; TEMP 36.2
== END 2021-05-23 10:55 | disposition home or self-care (01) ==
LOC: OR 07:23
PROVIDERS: PCP Nurse Practitioner Family; Visit Provider Urology
PROC: (CPT 50590; principal; 2021-05-23 08:00)
DX: N20.0 Calculus of kidney (principal); F41.9 Anxiety disorder, unspecified; J45.909 Unspecified asthma, uncomplicated; F32.9 Major depressive disorder, single episode, unspecified; K21.9 Gastro-esophageal reflux disease without esophagitis; E78.5 Hyperlipidemia, unspecified; I10 Essential (primary) hypertension; G43.909 Migraine, unspecified, not intractable, without status migrainosus; M79.18 Myalgia, other site; Z88.0 Allergy status to penicillin; Z88.8 Allergy status to other drugs, medicaments and biological substances; Z88.1 Allergy status to other antibiotic agents
CPT/HCPCS: 50590; 96374

== ENCOUNTER 2021-05-23 17:45 | Emergency (ER) | payer OTHER, SELFPAY ==
[2021-05-23 18:25] LABS: Microscopic, Urine URINE MICROSCOPIC (MICROSCOPIC)
[2021-05-23 18:28] LABS: Appearance,Urine CLOUDY (Clear); Bilirubin,Urine Negative (Negative); Blood, Urine 3+ (Negative); Color,Urine YELLOW (Yellow); Glucose,Urine (UA) Negative (Negative); Ketones,Urine Negative (Negative); Leukocyte Esterase,Urine 2+ (Negative); Nitrate,Urine Negative (Negative); Protein,Urine 1+ (Negative); Urobilinogen,Urine 0.2 EU/dl (0.2)
[2021-05-23 18:29] VITALS: BP 174/119; PULSE 78; RESP 18; TEMP 36.6; O2SAT 98; BMI 45.7
[2021-05-23 18:45] LABS: Squamous Epithelial Cell,Urine Occasional #/hpf (0-5)
--- NOTE | 2021-05-23 19:25 | HMH.EDGENADL ---
ED Disposition Clinical Impression: Renal colic on left side Disposition: Home, Self-Care Condition on Discharge: Good Additional Instructions: Percocet as needed for pain. Follow-up with Dr. Acosta on Wednesday if symptoms persist. Return to emergency department if repetitive vomiting or fever. Urine culture has been performed, results generally take 2 to 3 days. Follow-up the results of this test with your primary care provider within 2 to 3 days. Additional instructions for CONTROLLED SUBSTANCES: You have been prescribed a medication that is a controlled substance. Controlled substances include pain medications known as opiates and sedative nerve medications known as benzodiazepines. Tramadol, fioricet, and gabapentin are also controlled substances. Some common opiates include: Codeine (such as Tylenol #3) Hydrocodone (Vicodin, Lortab, Lorcet, [place]) Oxycodone (Percocet, Percodan, Oxycodone, Oxy IR) Some common benzodiazepines include: Diazepam (Valium) Lorazepam (Ativan) Alprazolam (Xanax) Clonazepam (Klonopin) Oxazepam (Serax) All of these controlled substances are highly addictive and frequently abused. Misuse can and frequently does lead to addiction as well as overdose and . Medication should be stored in a locked cabinet or other secure storage unit. Do not store the medication in a motor vehicle. Short term supplies, 3 days or less, are prescribed because of the highly addictive nature of the medication. Any of the controlled substance medication NOT taken should be disposed of properly and NOT SAVED. The recommended method of disposing of unused medications is: Place the medicines in a sealable plastic bag. If the medicine is a solid, crush it or add water to dissolve it. Add something undesirable (cat litter, coffee grounds, etc.) Dispose of sealed bag in household trash Do not flush or pour unused medicines down a sink or drain. Controlled substances should not be shared, given away or sold. Because of the addictive nature and frequent abuse, these medications are sometimes stolen. These medications should be kept in a safe place where they cannot be stolen. Do not keep them in your car or purse. Lost or stolen prescriptions for controlled substances WILL NOT BE REFILLED in this emergency department, regardless of whether a police report was filed. Prescriptions: Oxycodone HCl/Acetaminophen [Percocet 7.5-325 mg Tablet] 1 each PO Q6HP PRN #10 tab PRN Reason: Moderate To Severe Pain Transmission Status: Received by [facility] Referrals: Jojo Whyte APRN [Primary Care Provider] - - Critical Care Critical Care Time: No Attestation: On 05/23/21, the high probability of a clinically significant, sudden or life threatening deterioration of the following system(s) required my full and direct attention, intervention and personal management. The time I documented below is in addition to time spent performing reported procedures but includes the following listed in this critical care notation. Medical Decision Making - Olu Inquiry Pt receiving controlled substance: Yes Olu was queried for this patient: Yes Risks and benefits of using a controlled substance: were discussed with pt by me Vital Signs: 05/23/21 18:29 Temperature 97.8 F Temperature Source Oral Pulse Rate [Left Radial] 78 Respiratory Rate 18 Blood Pressure [Left Arm] 174/119 H Blood Pressure Mean [Left Arm] 137 Blood Pressure Source [Left Arm] Automatic Cuff Blood Pressure Position [Left Arm] Sitting 02 Sat by Pulse Oximetry 98 Oxygen Delivery Method Room Air - Lab Data Lab Results 05/23/21 18:19: Urine Color Yellow, Urine Appearance Cloudy, Urine pH 7.0, Ur Specific [place] 1.020, Urine Protein 1+, Urine Glucose (UA) Negative, Urine Ketones Negative, Urine Blood 3+, Urine Nitrate Negative, Urine Bilirubin Negative, Urine Urobilinogen 0.2, Ur Leukocyte Esterase 2+ A, Urine RBC 5-
[2021-05-23 19:40] LABS: Basophils # 0.1 K/mm3 (0-0.2); Basophils % 0.4 % (0.1-2.0); Eosinophils # 0.2 K/mm3 (0.0-0.4); Eosinophils % 1.2 % (0.1-12.0); Hematocrit 43.4 % (37.0-47.0); Hemoglobin 14.4 g/dL (12.2-16.2); Lymphocytes # 0.8 K/mm3 (0.7-4.5); Lymphocytes % 5.1 % (10-50); Mean Corpuscular HGB Conc 33.1 g/dL (31.8-35.4); Mean Corpuscular Hemoglobin 29.2 pg (27.0-31.2); Mean Corpuscular Volume 88.2 fl (81-99); Mean Platelet Volume 8.4 fl (7.4-10.4); Monocytes # 0.4 K/mm3 (0.1-1.0); Monocytes % 2.7 % (1.7-9.3); Neutrophils # 14.1 K/mm3 (1.8-7.8); Neutrophils % 90.6 % (37.0-80.0); Platelet Count 499 K/mm3 (142-424); Red Blood Count 4.93 M/mm3 (4.20-5.40); Red Cell Distribution Width 15.1 % (11.5-17.5); White Blood Count 15.6 K/mm3 (4.8-10.8)
[2021-05-23 19:42] LABS: MANUAL DIFFERENTIAL MANUAL DIFFERENTIAL (MANUAL DIFF)
[2021-05-23 19:58] LABS: Eosinophils % 1 % (0-3); Lymphocytes % 8 % (10-50); Neutrophils % 87 % (42-76); Platelet Estimate Slight Increase; RBC Morphology Normal; Total Cells Counted 100
[2021-05-23 20:10] LABS: Alanine Aminotransferase 53 U/L (12-78); Albumin Level 3.9 g/dl (3.5-5.0); Albumin/Globulin Ratio 1.1 (1.1-1.8); Alkaline Phosphatase 99 U/L (38-126); Anion Gap 15.4 mEq/L (5-15); Aspartate Amino Transferase 39 U/L (14-36); Bilirubin,Total 0.4 mg/dl (0.2-1.3); Blood Urea Nitrogen 19 mg/dl (7-17); Calcium 9.2 mg/dl (8.4-10.2); Carbon Dioxide 20 mmol/L (22.0-30.0); Chloride 108 mmol/L (98-107); Creatinine Clearance Estimated 89 mL/min (50-200); Estimated Glomerular Filt Rate 95 ml/min (>60); GFR (African American) 115 ML/MIN (>60); Globulin 3.6 g/dL (1.3-3.2); Glucose 191 mg/dl (74-100); Potassium 4.4 mmoL/L (3.5-5.1); Sodium 139 mmol/L (136-145); Total Protein,Serum 7.5 g/dl (6.3-8.2)
[2021-05-23 21:11] VITALS: BP 121/70; PULSE 75; RESP 18; TEMP 36.8; O2SAT 98
== END 2021-05-23 21:12 | disposition home or self-care (01) ==
PROVIDERS: Emergency Provider Emergency Medicine; PCP Nurse Practitioner Family
DX: N23 Unspecified renal colic (principal); E78.5 Hyperlipidemia, unspecified; K21.9 Gastro-esophageal reflux disease without esophagitis; F41.8 Other specified anxiety disorders; I10 Essential (primary) hypertension; M79.7 Fibromyalgia; Z88.0 Allergy status to penicillin; Z88.2 Allergy status to sulfonamides; Z79.899 Other long term (current) drug therapy
CPT/HCPCS: 36415; 80053; 81001; 85007; 85025; 87086; 87088; 87186; 96372; 99282

== ENCOUNTER 2021-06-15 17:00 | Emergency (ER) | payer OTHER, SELFPAY ==
[2021-06-15 17:01] VITALS: BP 175/101; PULSE 106; RESP 18; TEMP 36.8; O2SAT 95; BMI 45.7
--- NOTE | 2021-06-15 17:20 | CT_ITS ---
PROCEDURE INFORMATION: Exam: CT Abdomen And Pelvis Without Contrast Exam date and time: 06/15/2021 5:20 PM Age: 35 years old Clinical indication: Abdominal pain and other: Flank pain; Right; Prior surgery; Surgery date: 6+ months; Surgery type: Hysterectomy and hernia repair; Patient HX: History of kidney stones and has pain and discomfort -- flank pain; Additional info: Stone TECHNIQUE: Imaging protocol: Computed tomography of the abdomen and pelvis without contrast. Radiation optimization: All CT scans at this facility use at least one of these dose optimization techniques: automated exposure control; mA and/or kV adjustment per patient size (includes targeted exams where dose is matched to clinical indication); or iterative reconstruction. COMPARISON: CT ABDOMEN PELVIS WO CON 04/28/2021 2:22 PM FINDINGS: Lungs: No acute findings in the lower lungs. No consolidation. Liver: Heterogeneous diminished liver attenuation, consistent with patchy fatty change. Borderline hepatomegaly. Gallbladder and bile ducts: Cholecystectomy clips. The biliary tree is within normal limits post cholecystectomy. Pancreas: The pancreas is normal. Spleen: Upper normal spleen. Small accessory splenule series 3, image 30. Adrenal glands: The adrenal glands are normal. Kidneys and ureters: Small bilateral nonobstructing renal calculi. A left UPJ stone seen on the prior CT has passed in the interval. No hydronephrosis, hydroureter, or obstructing calcified ureteral stones on today's exam. Stomach and bowel: There is diverticulosis coli, without evidence of acute diverticulitis.There is no evidence of intestinal perforation or obstruction. The stomach is normal. Appendix: A normal appendix is identified. Intraperitoneal space: There is no free intraperitoneal air. There is no significant free intraperitoneal fluid. Vasculature: There is no aortic aneurysm. No portal venous gas. Lymph nodes: No significantly enlarged lymph nodes by short axis criteria. Urinary bladder: Urinary bladder is unremarkable for the degree of distension, not well filled. No calcified stones. Reproductive: Post hysterectomy. Unremarkable as visualized. Bones/joints: There is no evidence of acute fracture. Soft tissues: There is a tiny fatty umbilical hernia; no herniated bowel loops.There are no soft tissue masses or fluid collections. There is mild subcutaneous soft tissue edema in the posterior lower back, a common finding. IMPRESSION: 1. No acute findings. 2. Small bilateral nonobstructing renal calculi. No hydronephrosis, hydroureter, or obstructing ureteral stones. 3. There is diverticulosis coli, without evidence of acute diverticulitis. 4. Additional nonemergency and chronic findings as above.
--- NOTE | 2021-06-15 17:21 | HMH.EDGENADL ---
ED Disposition Clinical Impression: Acute flank pain, Kidney stone Disposition: Home, Self-Care Condition on Discharge: Good Additional Instructions: Return to the emergency department with any new, changing, or worsening symptoms. Please follow-up with your primary care physician in 1 to 2 days. Referrals: Jojo Whyte APRN [Primary Care Provider] - Time of Disposition: 18:56 - Critical Care Critical Care Time: No Attestation: On , the high probability of a clinically significant, sudden or life threatening deterioration of the following system(s) required my full and direct attention, intervention and personal management. The time I documented below is in addition to time spent performing reported procedures but includes the following listed in this critical care notation. Medical Decision Making - Olu Inquiry Pt receiving controlled substance: Yes Olu was queried for this patient: Yes Risks and benefits of using a controlled substance: were discussed with pt by me Vital Signs: 06/15/21 17:01 06/15/21 19:06 Temperature 98.2 F 98.2 F Temperature Source Oral Oral Pulse Rate 74 Pulse Rate [Left Radial] 106 H Respiratory Rate 18 18 Blood Pressure 160/98 H Blood Pressure [Left Arm] 175/101 H Blood Pressure Mean [Left Arm] 125 Blood Pressure Source [Left Arm] Automatic Cuff Blood Pressure Position Sitting Blood Pressure Position [Left Arm] Sitting 02 Sat by Pulse Oximetry 95 Oxygen Delivery Method Room Air Room Air - Lab Data Lab Results 06/15/21 17:35: WBC 11.3 H, RBC 5.39, Hgb 15.7, Hct 48.2 H, MCV 89.4, MCH 29.1, MCHC 32.6, RDW 15.0, Plt Count 485 H, MPV 7.9, Neut % (Auto) 69.4, Lymph % (Auto) 22.4, [place] % (Auto) 4.6, Eos % (Auto) 2.4, Baso % (Auto) 1.2, Neut # (Auto) 7.9 H, Lymph # (Auto) 2.5, [place] # (Auto) 0.5, Eos # (Auto) 0.3, Baso # (Auto) 0.1 06/15/21 17:35: Sodium 139, Potassium 3.6, Chloride 106, Carbon Dioxide 26, Anion Gap 10.6, BUN 12, Creatinine 0.70, Estimated Creat Clear 89, Estimated GFR 95, Est GFR ( Amer) 115, Glucose 95, Calcium 9.4, Total Bilirubin 0.5, AST 38 H, ALT 39, Alkaline Phosphatase 91, Total Protein 8.1, Albumin 4.3, Globulin 3.8 H, Albumin/Globulin Ratio 1.1, Lipase 395 H 06/15/21 17:35: Urine Color Yellow, Urine Appearance Sl cloudy, Urine pH 7.0, Ur Specific [place] 1.020, Urine Protein Negative, Urine Glucose (UA) Negative, Urine Ketones Negative, Urine Blood Negative, Urine Nitrate Negative, Urine Bilirubin Negative, Urine Urobilinogen 0.2, Ur Leukocyte Esterase Negative, Urine RBC 3-5, Urine WBC 5-10, Ur Squamous Epith Cells 5-10, Urine Bacteria 2+ Result diagrams: 06/15/21 17:35 06/15/21 17:35 Orders (Tests/Meds): ED MEDICATIONS Discontinued Medications Generic Name Dose Route Start Last Admin Trade Name Freq PRN Reason Stop Dose Admin Hydromorphone HCl 1 mg 06/15/21 17:10 06/15/21 17:44 Hydromorphone 4 Mg/Ml Syringe IV 06/15/21 17:11 1 mg ONCE ONE Administration Sodium Chloride 1,000 mls @ 999 mls/hr 06/15/21 17:15 06/15/21 17:45 Sod Chlor 0.9% 1000ml Bag IV 06/15/21 18:15 999 mls/hr .Q1H1M JUANA Administration Ketorolac Tromethamine 15 mg 06/15/21 17:10 06/15/21 17:15 Ketorolac 30mg/Ml Vial IV 06/15/21 17:11 Not Given ONCE ONE Ondansetron HCl 4 mg 06/15/21 17:57 06/15/21 18:09 Ondansetron 4mg/2ml Vial IV 06/15/21 17:58 Not Given ONCE ONE ORDERS Category Date Time Status Lactic Acid Stat Lab 06/15/21 17:10 Ordered Urine Culture Stat Micro 06/15/21 17:35 Received Medical Decision Narrative: Patient is hemodynamically stable on arrival nontoxic. Differential includes was not noted to stone, pyelonephritis, other. Given spent obtain basic labs, urinalysis, CT without contrast. Patient approximately 4 weeks ago had a lithotripsy done where they were able to remove a 7 mm stone. However today she had acute onset of pain that she said feels like another stone. Has had vomiting
[2021-06-15 17:48] LABS: Microscopic, Urine URINE MICROSCOPIC (MICROSCOPIC)
[2021-06-15 17:50] LABS: Appearance,Urine SL CLOUDY (Clear); Bilirubin,Urine Negative (Negative); Blood, Urine Negative (Negative); Color,Urine YELLOW (Yellow); Glucose,Urine (UA) Negative (Negative); Ketones,Urine Negative (Negative); Leukocyte Esterase,Urine Negative (Negative); Nitrate,Urine Negative (Negative); Protein,Urine Negative (Negative); Urobilinogen,Urine 0.2 EU/dl (0.2)
[2021-06-15 17:53] LABS: Basophils # 0.1 K/mm3 (0-0.2); Basophils % 1.2 % (0.1-2.0); Eosinophils # 0.3 K/mm3 (0.0-0.4); Eosinophils % 2.4 % (0.1-12.0); Hematocrit 48.2 % (37.0-47.0); Hemoglobin 15.7 g/dL (12.2-16.2); Lymphocytes # 2.5 K/mm3 (0.7-4.5); Lymphocytes % 22.4 % (10-50); Mean Corpuscular HGB Conc 32.6 g/dL (31.8-35.4); Mean Corpuscular Hemoglobin 29.1 pg (27.0-31.2); Mean Corpuscular Volume 89.4 fl (81-99); Mean Platelet Volume 7.9 fl (7.4-10.4); Monocytes # 0.5 K/mm3 (0.1-1.0); Monocytes % 4.6 % (1.7-9.3); Neutrophils # 7.9 K/mm3 (1.8-7.8); Neutrophils % 69.4 % (37.0-80.0); Platelet Count 485 K/mm3 (142-424); Red Blood Count 5.39 M/mm3 (4.20-5.40); White Blood Count 11.3 K/mm3 (4.8-10.8)
[2021-06-15 18:01] LABS: Alanine Aminotransferase 39 U/L (12-78); Albumin Level 4.3 g/dl (3.5-5.0); Albumin/Globulin Ratio 1.1 (1.1-1.8); Alkaline Phosphatase 91 U/L (38-126); Anion Gap 10.6 mEq/L (5-15); Aspartate Amino Transferase 38 U/L (14-36); Bilirubin,Total 0.5 mg/dl (0.2-1.3); Blood Urea Nitrogen 12 mg/dl (7-17); Calcium 9.4 mg/dl (8.4-10.2); Carbon Dioxide 26 mmol/L (22.0-30.0); Chloride 106 mmol/L (98-107); Creatinine Clearance Estimated 89 mL/min (50-200); Estimated Glomerular Filt Rate 95 ml/min (>60); GFR (African American) 115 ML/MIN (>60); Globulin 3.8 g/dL (1.3-3.2); Glucose 95 mg/dl (74-100); Lipase 395 U/L (23-300); Potassium 3.6 mmoL/L (3.5-5.1); Sodium 139 mmol/L (136-145); Total Protein,Serum 8.1 g/dl (6.3-8.2)
[2021-06-15 18:02] LABS: Bacteria,Urine 2+ /lpf
[2021-06-15 19:06] VITALS: BP 160/98; PULSE 74; RESP 18; TEMP 36.8; O2SAT 99
== END 2021-06-15 19:06 | disposition home or self-care (01) ==
PROVIDERS: Emergency Provider Emergency Medicine; PCP Nurse Practitioner Family
DX: N20.0 Calculus of kidney (principal); A49.8 Other bacterial infections of unspecified site; F41.8 Other specified anxiety disorders; K21.9 Gastro-esophageal reflux disease without esophagitis; E78.5 Hyperlipidemia, unspecified; I10 Essential (primary) hypertension; M79.7 Fibromyalgia; Z79.899 Other long term (current) drug therapy; Z87.442 Personal history of urinary calculi; Z88.0 Allergy status to penicillin
CPT/HCPCS: 74176; 80053; 81001; 83690; 85025; 87086; 87088; 87186; 96365; 96375; 99283

== ENCOUNTER 2021-08-20 09:54 | Emergency (ER) | payer OTHER, SELFPAY ==
[2021-08-20 09:55] VITALS: BP 183/112; PULSE 88; RESP 18; TEMP 37.1; O2SAT 99; BMI 45.7
--- NOTE | 2021-08-20 10:07 | XR_ITS ---
PROCEDURE: XR TIBIA FIBULA RT 2V CLINICAL INDICATION: Fall COMPARISON: CR XR TIBIA FIBULA LT 2V from 11/30/2020 CR XR TIBIA FIBULA RT 2V from 12/19/2020 CR XR TIBIA FIBULA LT 2V from 12/24/2020 CR XR TIBIA FIBULA LT 2V from 01/15/2021 FINDINGS: No fracture or dislocation. No lytic or blastic change. There is normal mineralization. The joint spaces are well-preserved. No significant degenerative/arthritic changes. No erosive changes evident. Other findings:None. IMPRESSION: No acute findings. Dictated by: Yg Richter MD 08/20/2021 10:51 Yg Richter MD in [facility] 08/20/2021 10:51
--- NOTE | 2021-08-20 10:07 | XR_ITS ---
PROCEDURE: XR ANKLE RT MIN 3V CLINICAL INDICATION: Fall COMPARISON: CR XR ANKLE RT MIN 3V from 12/19/2020 CR XR ANKLE LT MIN 3V from 01/15/2021 CR XR ANKLE LT MIN 3V from 02/03/2021 CR XR ANKLE LT MIN 3V from 03/29/2021 FINDINGS: There is a faint transverse lucency involving the base of the medial malleolus. This is only well seen on the AP view. Cannot exclude the possibility of a nondisplaced fracture. Please correlate as the patient's area of pain tenderness. No significant soft tissue swelling however at this region. The joint spaces are well-preserved. No significant degenerative/arthritic changes. No erosive changes evident. Other findings:None. IMPRESSION: Possible nondisplaced fracture at the base of the medial malleolus. Please correlate with patient's area of pain and tenderness. Dictated by: Yg Richter MD 08/20/2021 10:53 Yg Richter MD in [facility] 08/20/2021 10:53
--- NOTE | 2021-08-20 10:07 | XR_ITS ---
PROCEDURE: XR KNEE RT 3V CLINICAL INDICATION: Fall COMPARISON: DX KNEE3L KNEE-3 VIEWS-LT from 08/30/2017 CR XR KNEE LT 3V from 11/30/2020 FINDINGS: No fracture or dislocation. No lytic or blastic change. There is normal mineralization. The joint spaces are well-preserved. No significant degenerative/arthritic changes. No erosive changes evident. Other findings:None. IMPRESSION: No acute findings. Dictated by: Yg Richter MD 08/20/2021 10:50 Yg Richter MD in [facility] 08/20/2021 10:50
--- NOTE | 2021-08-20 10:22 | HMH.EDGENADL ---
ED Disposition Clinical Impression: Fracture of medial malleolus, right, closed Disposition: Home, Self-Care Condition on Discharge: Fair Referrals: Landy Carroll [Primary Care Provider] - Duong Lovell MD [Staff Physician] - - Critical Care Critical Care Time: No Attestation: On 08/20/21, the high probability of a clinically significant, sudden or life threatening deterioration of the following system(s) required my full and direct attention, intervention and personal management. The time I documented below is in addition to time spent performing reported procedures but includes the following listed in this critical care notation. Medical Decision Making - Medical Records Medical records reviewed: Yes: I reviewed the patient's medical records. - Olu Inquiry Pt receiving controlled substance: No Olu was queried for this patient: No Vital Signs: 08/20/21 09:55 Temperature 98.8 F Temperature Source Oral Pulse Rate [Left Radial] 88 Respiratory Rate 18 Blood Pressure [Left Arm] 183/112 H Blood Pressure Mean [Left Arm] 135 Blood Pressure Source [Left Arm] Automatic Cuff Blood Pressure Position [Left Arm] Sitting 02 Sat by Pulse Oximetry 99 Oxygen Delivery Method Room Air Medical Decision Narrative: Patient is a 35-year-old female with past medical history of hypertension presenting to the ED after a fall. Patient is awake, alert, not in acute distress. Patient is medically stable, afebrile. Patient has tenderness to palpation to right moon, ankle. X-rays of the right ankle, tib-fib, knee are performed. X-rays are remarkable for a mild lucency at the right medial malleolus where patient has point tenderness. This is concerning for a fracture. Patient is placed in a splint and given orthopedic follow-up. Patient is for discharge. Patient is given strict return precautions and follow-up instructions. General Adult HPI - General Chief complaint: PAIN Stated complaint: AO [id number] right leg pain Time Seen by Provider: 08/20/21 10:22 Mode of Arrival: Ambulatory Limitations: No Limitations Description of Symptoms (Recalled from ER Triage Doc. by RN): pt c/o RLE pain that began wednesday after a fall. Pt reports pain is mainly when walking. - History of Present Illness HPI narrative: Patient is a 35 yr old female with hypertension, asthma presenting to the ED with right leg pain. Patient states that she had a fall at work several days ago where she hit her moon. Patient states that since then she is having pain in her moon with ambulation. Patient states that she is still able to bear weight, still able to ambulate however has mild pain. Patient states that she is concerned she might have a fracture, stress fracture. Patient denies any numbness or tingling, swelling. Patient has been using Tylenol and ibuprofen at home for relief which has been helping. - Related Data Home Medications Medication Instructions Recorded Confirmed paroxetine HCl 40 mg tablet 60 mg PO DAILY 10/21/17 05/23/21 Tizanidine HCl [Zanaflex 4mg 6 mg PO TIDP PRN 03/15/18 05/23/21 tab] Losartan Potassium [Cozaar 50mg 50 mg PO DAILY 02/03/21 05/23/21 Tablets] Pregabalin [Lyrica 100mg Cap] 100 mg PO BID 04/30/21 05/23/21 Tamsulosin HCl [Flomax 0.4mg 0.4 mg PO DAILY 04/30/21 05/23/21 capsule] hydroCHLOROthiazide [HCTZ 25mg 25 mg PO DAILY 04/30/21 05/23/21 tab] Previous Rx's Medication Instructions Recorded Oxycodone HCl/Acetaminophen 1 each PO Q6HP PRN #10 tab 05/23/21 [Percocet 7.5-325 mg Tablet] Allergies Allergy/AdvReac Type Severity Reaction Status Date / Time Penicillins Allergy Severe Hives Verified 06/25/21 11:53 gatifloxacin [From TEQUIN] Allergy Mild Verified 06/25/21 11:53 ketorolac [From TORADOL] Allergy Mild Verified 06/25/21 11:53 aztreonam [AZTREONAM] Allergy Unknown NA-NAUSEA/V Verified 06/25/21 11:53 OMITING cefaclor [CEFACLOR] Allergy Unknown Verified 06/25/21
--- NOTE | 2021-08-20 10:31 | PC.NURSE ---
pt return from xray
[2021-08-20 11:40] VITALS: BP 183/112; PULSE 88; RESP 18; TEMP 37.1; O2SAT 99
== END 2021-08-20 11:40 | disposition home or self-care (01) ==
PROVIDERS: Emergency Provider Emergency Medicine; PCP Internal Medicine
DX: S82.51XA Displaced fracture of medial malleolus of right tibia, initial encounter for closed fracture (principal); W01.0XXA Fall on same level from slipping, tripping and stumbling without subsequent striking against object, initial encounter; I10 Essential (primary) hypertension; F41.8 Other specified anxiety disorders; K21.9 Gastro-esophageal reflux disease without esophagitis; E78.5 Hyperlipidemia, unspecified; M79.7 Fibromyalgia
CPT/HCPCS: 29515; 73562; 73590; 73610; 99284

== ENCOUNTER 2021-08-29 12:52 | Emergency (ER) | payer OTHER, SELFPAY ==
[2021-08-29 12:54] VITALS: BP 169/117; PULSE 113; RESP 16; TEMP 37.4; O2SAT 97; BMI 45.7
--- NOTE | 2021-08-29 14:13 | CT_ITS ---
PROCEDURE: CT ABDOMEN PELVIS WO CON CLINICAL INDICATION: flank pain COMPARISON: CT CT ABDOMEN PELVIS WO CON from 06/15/2021 TECHNIQUE: Axial images obtained with sagittal and coronal reformats. All CT scans at the facility use one or more dose reduction, viz: automated exposure control, ma/kV adjustment per patient size (including targeted exams where dose is matched to indication, i.e. head), or iterative reconstruction technique. FINDINGS: LOWER THORAX: Lung bases are clear. ABDOMEN & PELVIS: Prior cholecystectomy. No focal liver lesion. The spleen, adrenal glands, and pancreas have an unremarkable appearance. There are bilateral renal calculi. There is a 9 x 4 mm calculus in the lower pole of the right kidney and a 6 x 4 mm calculus in the lower pole of the left kidney. No ureteral calculi. No hydronephrosis. No intestinal obstruction or free air. There is colonic diverticulosis but no evidence of diverticulitis. No evidence of appendicitis. The cecum lies in the pelvic region. There is some thickening of the cecum and ascending colon. This could be due to nondistention or mild colitis. There is no stranding of the pericolic fat. The scattered small nodes are present in the inguinal regions. There has been a prior hysterectomy. No acute bony findings. IMPRESSION: 1. Bilateral nephrolithiasis. No ureteral calculi or hydronephrosis. 2. Thickening of the ascending colon and cecum which may be due to nondistention versus mild colitis. Please correlate with clinical parameters. 3. Colonic diverticulosis. No evidence of diverticulitis Dictated by: Yg Richter MD 08/29/2021 16:11 Yg Rcihter MD in [facility] 08/29/2021 16:11
[2021-08-29 14:22] LABS: Microscopic, Urine URINE MICROSCOPIC (MICROSCOPIC)
[2021-08-29 14:23] LABS: Appearance,Urine CLOUDY (Clear); Bilirubin,Urine Negative (Negative); Blood, Urine 3+ (Negative); Color,Urine YELLOW (Yellow); Glucose,Urine (UA) Negative (Negative); Ketones,Urine Negative (Negative); Leukocyte Esterase,Urine 2+ (Negative); Nitrate,Urine POSITIVE (Negative); PH,Urine 6.5 (5.0-8.5); Protein,Urine TRACE (Negative); Urobilinogen,Urine 0.2 EU/dl (0.2)
[2021-08-29 14:47] LABS: Bacteria,Urine 2+ /lpf
[2021-08-29 15:13] VITALS: BP 158/96; PULSE 92; O2SAT 98
--- NOTE | 2021-08-29 17:00 | PC.NURSE ---
Lab at bedside
[2021-08-29 17:16] LABS: Basophils # 0.1 K/mm3 (0-0.2); Basophils % 0.6 % (0.1-2.0); Eosinophils # 0.5 K/mm3 (0.0-0.4); Eosinophils % 4.4 % (0.1-12.0); Hematocrit 45.5 % (37.0-47.0); Hemoglobin 15.7 g/dL (12.2-16.2); Lymphocytes # 1.6 K/mm3 (0.7-4.5); Lymphocytes % 14.8 % (10-50); Mean Corpuscular HGB Conc 34.6 g/dL (31.8-35.4); Mean Corpuscular Hemoglobin 28.2 pg (27.0-31.2); Mean Corpuscular Volume 81.6 fl (81-99); Mean Platelet Volume 8.3 fl (7.4-10.4); Monocytes # 0.5 K/mm3 (0.1-1.0); Monocytes % 4.2 % (1.7-9.3); Neutrophils # 8.4 K/mm3 (1.8-7.8); Neutrophils % 76.1 % (37.0-80.0); Platelet Count 381 K/mm3 (142-424); Red Blood Count 5.57 M/mm3 (4.20-5.40); Red Cell Distribution Width 13.9 % (11.5-17.5); White Blood Count 11.1 K/mm3 (4.8-10.8)
[2021-08-29 17:24] LABS: Alanine Aminotransferase 28 U/L (12-78); Albumin/Globulin Ratio 1.2 (1.1-1.8); Alkaline Phosphatase 88 U/L (38-126); Aspartate Amino Transferase 42 U/L (14-36); Bilirubin,Total 0.8 mg/dl (0.2-1.3); Blood Urea Nitrogen 15 mg/dl (7-17); Calcium 9.7 mg/dl (8.4-10.2); Carbon Dioxide 20 mmol/L (22.0-30.0); Chloride 110 mmol/L (98-107); Creatinine Clearance Estimated 89 mL/min (50-200); Estimated Glomerular Filt Rate 95 ml/min (>60); GFR (African American) 115 ML/MIN (>60); Globulin 3.4 g/dL (1.3-3.2); Glucose 95 mg/dl (74-100); Sodium 138 mmol/L (136-145); Total Protein,Serum 7.4 g/dl (6.3-8.2)
--- NOTE | 2021-08-29 18:16 | HMH.EDGENADL ---
ED Disposition Clinical Impression: Pyelonephritis Disposition: Home, Self-Care Condition on Discharge: Fair Instructions: DI for Acute Abdominal Pain Additional Instructions: You have been prescribed antibiotics for a urinary tract infection extending to your kidney. Please continue to monitor your condition at home very closely. If your condition worsens or any other concerns arise, please return to the emergency department. If your condition does not improve within 48 hours, please return for reassessment. Otherwise, please see your primary care doctor within a week on an outpatient basis. Prescriptions: Cranberry Conc/C/Bacill Coag [Azo Cranberry Tablet] 1 each PO TID PRN #6 tab PRN Reason: Dysuria Transmission Status: Received by [facility] Ciprofloxacin HCl [Cipro 500mg Tab] 500 mg PO BID #14 tab Transmission Status: Received by [facility] Referrals: Landy Carroll [Primary Care Provider] - - Critical Care Critical Care Time: No Attestation: On 08/29/21, the high probability of a clinically significant, sudden or life threatening deterioration of the following system(s) required my full and direct attention, intervention and personal management. The time I documented below is in addition to time spent performing reported procedures but includes the following listed in this critical care notation. Medical Decision Making - Medical Records Medical records reviewed: Yes: I reviewed the patient's medical records. - Olu Inquiry Pt receiving controlled substance: No Vital Signs: 08/29/21 12:54 08/29/21 15:13 08/29/21 18:27 Temperature 99.4 F 99.4 F Temperature Source Oral Oral Pulse Rate 92 H 92 H Pulse Rate [Left Radial] 113 H Respiratory Rate 16 18 Blood Pressure 158/96 H 147/86 H Blood Pressure [Right Arm] 169/117 H Blood Pressure Mean [Right Arm] 134 Blood Pressure Source Automatic Cuff Blood Pressure Source [Right Arm] Automatic Cuff Blood Pressure Position Sitting Blood Pressure Position [Right Arm] Sitting 02 Sat by Pulse Oximetry 97 98 Oxygen Delivery Method Room Air Room Air Room Air - Lab Data Lab results reviewed: Yes: I reviewed the patient's lab results. Lab Results 08/29/21 14:13: Urine Color Yellow, Urine Appearance Cloudy, Urine pH 6.5, Ur Specific [place] 1.020, Urine Protein Trace, Urine Glucose (UA) Negative, Urine Ketones Negative, Urine Blood 3+, Urine Nitrate Positive, Urine Bilirubin Negative, Urine Urobilinogen 0.2, Ur Leukocyte Esterase 2+ A, Urine RBC 10-20, Urine WBC 10-20, Ur Squamous Epith Cells 5-10, Urine Bacteria 2+ 08/29/21 16:58: WBC 11.1 H, RBC 5.57 H, Hgb 15.7, Hct 45.5, MCV 81.6, MCH 28.2, MCHC 34.6, RDW 13.9, Plt Count 381, MPV 8.3, Neut % (Auto) 76.1, Lymph % (Auto) 14.8, [place] % (Auto) 4.2, Eos % (Auto) 4.4, Baso % (Auto) 0.6, Neut # (Auto) 8.4 H, Lymph # (Auto) 1.6, [place] # (Auto) 0.5, Eos # (Auto) 0.5 H, Baso # (Auto) 0.1 08/29/21 16:58: Sodium 138, Potassium 5.0, Chloride 110 H, Carbon Dioxide 20 L, Anion Gap 13.0, BUN 15, Creatinine 0.70, Estimated Creat Clear 89, Estimated GFR 95, Est GFR ( Amer) 115, Glucose 95, Calcium 9.7, Total Bilirubin 0.8, AST 42 H, ALT 28, Alkaline Phosphatase 88, Total Protein 7.4, Albumin 4.0, Globulin 3.4 H, Albumin/Globulin Ratio 1.2 Result diagrams: 08/29/21 16:58 08/29/21 16:58 Orders (Tests/Meds): ED MEDICATIONS Discontinued Medications Generic Name Dose Route Start Last Admin Trade Name Silke PRN Reason Stop Dose Admin Lactated Ringer's 500 mls @ 999 mls/hr 08/29/21 15:00 08/29/21 18:34 Lactated Ringer's 1000 Ml Bag IV 08/29/21 15:30 Not Given .Q31M [facility] ORD[facility] Category Date Time Status Urine Culture Stat Micro 08/29/21 14:13 Received - CT Data Findings Narrative: CT abd/pelvis: IMPRESSION: 1. Bilateral nephrolithiasis. No ureteral calculi or hydronephrosis. 2. Thickening of the ascending colon and cecum which may be due to non
[2021-08-29 18:27] VITALS: BP 147/86; PULSE 92; RESP 18; TEMP 37.4; O2SAT 97
== END 2021-08-29 18:35 | disposition home or self-care (01) ==
PROVIDERS: Emergency Provider Emergency Medicine; PCP Internal Medicine
DX: N10 Acute pyelonephritis (principal); N20.0 Calculus of kidney; Z87.442 Personal history of urinary calculi; K21.9 Gastro-esophageal reflux disease without esophagitis; I10 Essential (primary) hypertension; F41.8 Other specified anxiety disorders; E78.5 Hyperlipidemia, unspecified; M79.7 Fibromyalgia
CPT/HCPCS: 36415; 74176; 80053; 81001; 85025; 87086; 99283

== ENCOUNTER 2021-09-07 18:33 | Emergency (ER) | payer OTHER, SELFPAY ==
[2021-09-07 18:35] VITALS: BP 173/113; PULSE 102; RESP 18; TEMP 36.9; O2SAT 98; BMI 45.7
[2021-09-07 18:54] LABS: Microscopic, Urine URINE MICROSCOPIC (MICROSCOPIC)
[2021-09-07 18:56] LABS: Appearance,Urine CLOUDY (Clear); Bilirubin,Urine Negative (Negative); Blood, Urine 3+ (Negative); Color,Urine YELLOW (Yellow); Glucose,Urine (UA) Negative (Negative); Ketones,Urine Negative (Negative); Leukocyte Esterase,Urine 1+ (Negative); Nitrate,Urine POSITIVE (Negative); Protein,Urine Negative (Negative); Specific Gravity, Urine 1.025 (1.005-1.030); Urobilinogen,Urine 0.2 EU/dl (0.2)
[2021-09-07 19:09] LABS: Bacteria,Urine 2+ /lpf; Calcium Oxalate Crystals,Urine 1+ /lpf; RBC,Urine 20-50 #/hpf (0-3); WBC,Urine 20-50 #/hpf (0-3)
[2021-09-07 19:13] LABS: Basophils # 0.1 K/mm3 (0-0.2); Basophils % 1.1 % (0.1-2.0); Eosinophils # 0.3 K/mm3 (0.0-0.4); Eosinophils % 2.3 % (0.1-12.0); Hematocrit 46.6 % (37.0-47.0); Hemoglobin 14.9 g/dL (12.2-16.2); Lymphocytes # 2.1 K/mm3 (0.7-4.5); Lymphocytes % 17.5 % (10-50); Mean Corpuscular Hemoglobin 28.3 pg (27.0-31.2); Mean Corpuscular Volume 88.6 fl (81-99); Mean Platelet Volume 7.8 fl (7.4-10.4); Monocytes # 0.5 K/mm3 (0.1-1.0); Monocytes % 4.3 % (1.7-9.3); Neutrophils # 9.1 K/mm3 (1.8-7.8); Platelet Count 455 K/mm3 (142-424); Red Blood Count 5.26 M/mm3 (4.20-5.40); White Blood Count 12.1 K/mm3 (4.8-10.8)
[2021-09-07 19:25] LABS: Alanine Aminotransferase 35 U/L (12-78); Albumin Level 4.3 g/dl (3.5-5.0); Albumin/Globulin Ratio 1.3 (1.1-1.8); Alkaline Phosphatase 91 U/L (38-126); Anion Gap 13.4 mEq/L (5-15); Aspartate Amino Transferase 31 U/L (14-36); Bilirubin,Total 0.5 mg/dl (0.2-1.3); Blood Urea Nitrogen 12 mg/dl (7-17); Calcium 9.2 mg/dl (8.4-10.2); Carbon Dioxide 24 mmol/L (22.0-30.0); Chloride 104 mmol/L (98-107); Creatinine Clearance Estimated 78 mL/min (50-200); Estimated Glomerular Filt Rate 82 ml/min (>60); GFR (African American) 99 ML/MIN (>60); Globulin 3.3 g/dL (1.3-3.2); Glucose 129 mg/dl (74-100); Potassium 3.4 mmoL/L (3.5-5.1); Sodium 138 mmol/L (136-145); Total Protein,Serum 7.6 g/dl (6.3-8.2)
--- NOTE | 2021-09-07 19:29 | HMH.EDGENADL ---
ED Disposition Clinical Impression: Pyelonephritis Disposition: Home, Self-Care Condition on Discharge: Fair Prescriptions: Cefdinir [Omnicef 300mg Capsule] 300 mg PO BID #14 cap Transmission Status: Pending to [facility] Ondansetron [Zofran 4mg ODT] 4 mg PO BIDP PRN #5 tab PRN Reason: Nausea Transmission Status: Pending to [facility] Referrals: Landy Carroll [Primary Care Provider] - - Critical Care Critical Care Time: No Attestation: On 09/07/21, the high probability of a clinically significant, sudden or life threatening deterioration of the following system(s) required my full and direct attention, intervention and personal management. The time I documented below is in addition to time spent performing reported procedures but includes the following listed in this critical care notation. Medical Decision Making - Medical Records Medical records reviewed: Yes: I reviewed the patient's medical records. - Olu Inquiry Pt receiving controlled substance: No Olu was queried for this patient: No Vital Signs: 09/07/21 18:35 Temperature 98.4 F Temperature Source Oral Pulse Rate [Left Radial] 102 H Respiratory Rate 18 Blood Pressure [Right Arm] 173/113 H Blood Pressure Mean [Right Arm] 133 Blood Pressure Source [Right Arm] Automatic Cuff Blood Pressure Position [Right Arm] Sitting 02 Sat by Pulse Oximetry 98 Oxygen Delivery Method Room Air - Lab Data Lab results reviewed: Yes: I reviewed the patient's lab results. Lab Results 09/07/21 18:45: Urine Color Yellow, Urine Appearance Cloudy, Urine pH 6.0, Ur Specific [place] 1.025, Urine Protein Negative, Urine Glucose (UA) Negative, Urine Ketones Negative, Urine Blood 3+, Urine Nitrate Positive, Urine Bilirubin Negative, Urine Urobilinogen 0.2, Ur Leukocyte Esterase 1+ A, Urine RBC 20-50, Urine WBC 20-50, Ur Squamous Epith Cells 5-10, Calcium Oxalate Crystal 1+, Urine Bacteria 2+ 09/07/21 19:05: WBC 12.1 H, RBC 5.26, Hgb 14.9, Hct 46.6, MCV 88.6, MCH 28.3, MCHC 32.0, RDW 14.0, Plt Count 455 H, MPV 7.8, Neut % (Auto) 75.0, Lymph % (Auto) 17.5, [place] % (Auto) 4.3, Eos % (Auto) 2.3, Baso % (Auto) 1.1, Neut # (Auto) 9.1 H, Lymph # (Auto) 2.1, [place] # (Auto) 0.5, Eos # (Auto) 0.3, Baso # (Auto) 0.1 09/07/21 19:05: Sodium 138, Potassium 3.4 L, Chloride 104, Carbon Dioxide 24, Anion Gap 13.4, BUN 12, Creatinine 0.80, Estimated Creat Clear 78, Estimated GFR 82, Est GFR ( Amer) 99, Glucose 129 H, Calcium 9.2, Total Bilirubin 0.5, AST 31, ALT 35, Alkaline Phosphatase 91, Total Protein 7.6, Albumin 4.3, Globulin 3.3 H, Albumin/Globulin Ratio 1.3 Result diagrams: 09/07/21 19:05 09/07/21 19:05 Orders (Tests/Meds): ORDERS Category Date Time Status Urine Culture Stat Micro 09/07/21 18:45 Received Medical Decision Narrative: Patient is a 35-year-old female with past medical history of multiple UTIs presenting to the ED with dysuria and flank pain. Patient is awake, alert, not in acute distress. Patient is medically stable, afebrile. Patient's exam is remarkable for suprapubic pain, left-sided flank pain. Differential includes but is not limited to nephritis, low concern for acute stone, obstruction. Given this a CBC, CMP, UA, urine culture was performed. CT scan was discussed and patient refused a CT scan given that she recently had a scan during her prior presentation. [id number]-[id number] ultrasound was done which showed no signs of hydronephrosis. Patient's antibiotics were changed to cefdinir. Patient was given strict return precautions and follow-up instructions. General Adult HPI - General Chief complaint: PAIN Stated complaint: abd pain Time Seen by Provider: 09/07/21 19:30 Mode of Arrival: Ambulatory Limitations: No Limitations Description of Symptoms (Recalled from ER Triage Doc. by RN): c/o left side pain, states she was seen here a few days ago for a kidney infection but it has not got any better. - History of P
[2021-09-07 20:04] VITALS: BP 170/95; PULSE 90; RESP 20; TEMP 36.8; O2SAT 95
--- NOTE | 2021-09-07 20:05 | PC.NURSE ---
notified that pt is allergic to zofran, requesting phenergan. states ok to give phernegan PO take home pack.
== END 2021-09-07 20:09 | disposition home or self-care (01) ==
PROVIDERS: Emergency Provider Emergency Medicine; PCP Internal Medicine
DX: N10 Acute pyelonephritis (principal); F41.8 Other specified anxiety disorders; K21.9 Gastro-esophageal reflux disease without esophagitis; I10 Essential (primary) hypertension; E78.5 Hyperlipidemia, unspecified; Z87.442 Personal history of urinary calculi; Z79.899 Other long term (current) drug therapy
CPT/HCPCS: 36415; 80053; 81001; 85025; 87086; 87088; 87186; 99282

== ENCOUNTER 2021-09-29 16:17 | Emergency (ER) | payer OTHER, SELFPAY ==
[2021-09-29 16:25] VITALS: BP 169/99; PULSE 111; RESP 18; TEMP 36.9; O2SAT 98; BMI 42.1
--- NOTE | 2021-09-29 16:34 | XR_ITS ---
FINAL REPORT CLINICAL HISTORY: ankle pain COMPARISON: March 29, 2021 FINDINGS: Two views of the left tibia-fibula demonstrate postoperative changes involving the tibia and fibula. There is a chronic fracture of the distal tibia. No acute bony abnormality is seen. IMPRESSION: Postoperative change without acute bony abnormality. Reviewed, Interpreted and Dictated by Nicholas Escobedo III, MD Transcribed by Aubrey Dutton Authenticated by Nicholas Escobedo III, MD on 09/29/2021 05:01:07 PM [facility]
--- NOTE | 2021-09-29 16:41 | HMH.EDUTC ---
[facility] Disposition Clinical Impression: Leg pain Qualifiers: Laterality: left Qualified Code(s): M79.605 - Pain in left leg Disposition: Home, Self-Care Condition on Discharge: Good Instructions: Acetaminophen (Alternative Therapy), DI for Chronic Pain -- Adult, DI for Leg Pain, Ibuprofen Additional Instructions: Follow up with Orthopedics as you have been Wear walking boot as instructed by Orthopedics IF you are having trouble walking on crutches you was written a walker but make sure to follow up with Orthopedics and let them know you was unable to walk on Crutches and have been written for a walker to get you through until you can get back in to see them Return if needed Straight to ER if any life threatening symptoms Over the counter Motrin and/or Tylenol if your doctor has said you can take it Prescriptions: Walker [Walker, Standard] 1 each MISCELLANE DIRECTED #1 each Prescription Printed Referrals: Landy Carroll [Primary Care Provider] - As needed Time of Disposition: 16:53 Medical Decision Making - Olu Inquiry Pt receiving controlled substance: No Olu was queried for this patient: No Vital Signs: 09/29/21 16:25 09/29/21 17:05 Temperature 98.4 F 98.4 F Temperature Source Oral Pulse Rate 111 H Pulse Rate [Right Brachial] 111 H Respiratory Rate 18 18 Blood Pressure 169/99 H Blood Pressure [Right Arm] 169/99 H Blood Pressure Mean [Right Arm] 122 Blood Pressure Source [Right Arm] Automatic Cuff Blood Pressure Position [Right Arm] Sitting 02 Sat by Pulse Oximetry 98 Oxygen Delivery Method Room Air - Radiology Data #1 Image(s): Tib/Fib Image Reviewed: Yes I reviewed the patient's radiology image Preliminary Findings: No Fracture Seen no acute fracture hardware noted from previous fracture [facility] HPI - General Stated complaint: L leg pain no accident Time Seen by Provider: 09/29/21 16:41 Mode of Arrival: Ambulatory Source of Information: Patient Limitations: No Limitations Description of Symptoms (Recalled from Triage Doc. by RN): PATIENT C/O PAIN TO LEFT LEG THAT INCREASES WITH WALKING. REPORTS A RIGHT TIB/FIB FRACTURE, BUT STATES SHE CAN'T WEAR THE WALKING BOOT D/T PAIN IN LEFT LEG HEENT Symptoms (Recalled from RN notes): No Resp Symptoms (Recalled from RN notes): No Skin Symptoms (Recalled from RN notes): No MS Symptoms (Recalled from RN notes): Yes Functional Status (Recalled from RN notes): WNL - History of Present Illness Provider Complaint: Patient state that she currently has a fracture in her right ankle that she is seeing Orthopedics for States that they put her in a walking boot and give her crutches States that she hasnt been able to walk using the boot due to causing pain in her left tib/fib area where she broke it before and was worried that she may have done something to it again so she came in to get it checked out Denies falling denies known injury - Related Data Home Medications Medication Instructions Recorded Confirmed paroxetine HCl 40 mg tablet 60 mg PO DAILY 10/21/17 05/23/21 Tizanidine HCl [Zanaflex 4mg 6 mg PO TIDP PRN 03/15/18 05/23/21 tab] Losartan Potassium [Cozaar 50mg 50 mg PO DAILY 02/03/21 05/23/21 Tablets] Pregabalin [Lyrica 100mg Cap] 100 mg PO BID 04/30/21 05/23/21 Tamsulosin HCl [Flomax 0.4mg 0.4 mg PO DAILY 04/30/21 05/23/21 capsule] hydroCHLOROthiazide [HCTZ 25mg 25 mg PO DAILY 04/30/21 05/23/21 tab] Previous Rx's Medication Instructions Recorded Oxycodone HCl/Acetaminophen 1 each PO Q6HP PRN #10 tab 05/23/21 [Percocet 7.5-325 mg Tablet] Ciprofloxacin HCl [Cipro 500mg 500 mg PO BID #14 tab 08/29/21 Tab] Cranberry Conc/C/Bacill Coag [Azo 1 each PO TID PRN #6 tab 08/29/21 Cranberry Tablet] Cefdinir [Omnicef 300mg Capsule] 300 mg PO BID #14 cap 09/07/21 Ondansetron [Zofran 4mg ODT] 4 mg PO BIDP PRN #5 tab 09/07/21 Walker [Walker, Standard] 1 each MISCELLANE DIRECTED #1 09/29/21
[2021-09-29 17:05] VITALS: BP 169/99; PULSE 111; RESP 18; TEMP 36.9; O2SAT 98
== END 2021-09-29 17:22 | disposition home or self-care (01) ==
PROVIDERS: Emergency Provider Nurse Practitioner; PCP Internal Medicine
DX: M79.605 Pain in left leg (principal); S82.52XD Displaced fracture of medial malleolus of left tibia, subsequent encounter for closed fracture with routine healing; I10 Essential (primary) hypertension; F41.8 Other specified anxiety disorders; K21.9 Gastro-esophageal reflux disease without esophagitis; E78.5 Hyperlipidemia, unspecified; Z79.899 Other long term (current) drug therapy
CPT/HCPCS: 73590; 99202; G0463

== ENCOUNTER → 2021-10-23 10:43 | Outpatient (CLI) | payer OTHER, SELFPAY ==
[2021-10-24 09:03] LABS: Covid-19 Nasal PCR Sendout Lex NOT DETECTED
== END ==
PROVIDERS: Visit Provider Nurse Practitioner
DX: Z20.822 Contact with and (suspected) exposure to COVID-19 (principal)
CPT/HCPCS: C9803; U0004; U0005

== ENCOUNTER 2021-10-25 18:00 | Emergency (ER) | payer OTHER, SELFPAY ==
[2021-10-25 18:01] VITALS: BP 171/109; PULSE 107; RESP 20; TEMP 36.6; O2SAT 98; BMI 51.2
--- NOTE | 2021-10-25 18:07 | PC.NURSE ---
pt is in bathroom at this time, trying to provide a urine sample.
--- NOTE | 2021-10-25 18:13 | PC.NURSE ---
urine collected and sent to the lab
[2021-10-25 18:26] LABS: Microscopic, Urine URINE MICROSCOPIC (MICROSCOPIC)
[2021-10-25 18:27] LABS: Appearance,Urine CLOUDY (Clear); Bilirubin,Urine Negative (Negative); Blood, Urine 2+ (Negative); Color,Urine YELLOW (Yellow); Glucose,Urine (UA) Negative (Negative); Ketones,Urine Negative (Negative); Leukocyte Esterase,Urine 2+ (Negative); Nitrate,Urine Negative (Negative); Protein,Urine TRACE (Negative); Specific Gravity, Urine 1.025 (1.005-1.030); Urobilinogen,Urine 0.2 EU/dl (0.2)
[2021-10-25 18:31] LABS: Bacteria,Urine 3+ /lpf; Calcium Oxalate Crystals,Urine 1+ /lpf; WBC,Urine TNTC #/hpf (0-3)
--- NOTE | 2021-10-25 18:45 | XR_ITS ---
PROCEDURE INFORMATION: Exam: XR Chest Exam date and time: 10/25/2021 6:45 PM Age: 36 years old Clinical indication: Cough TECHNIQUE: Imaging protocol: XR of the chest. Views: 2 views. COMPARISON: CR XR CHEST 2V 05/20/2021 12:06 AM FINDINGS: Lungs: Unremarkable. No consolidation. Pleural spaces: Unremarkable. No pleural effusion. No pneumothorax. Heart/Mediastinum: Unremarkable. No cardiomegaly. Bones/joints: Unremarkable. IMPRESSION: No acute findings.
--- NOTE | 2021-10-25 18:53 | PC.NURSE ---
pt to radiology
[2021-10-25 19:36] LABS: Basophils # 0.2 K/mm3 (0-0.2); Basophils % 1.1 % (0.1-2.0); Eosinophils # 0.4 K/mm3 (0.0-0.4); Eosinophils % 3.1 % (0.1-12.0); Hemoglobin 14.8 g/dL (12.2-16.2); Lymphocytes # 2.2 K/mm3 (0.7-4.5); Lymphocytes % 16.9 % (10-50); Mean Corpuscular HGB Conc 32.2 g/dL (31.8-35.4); Mean Corpuscular Hemoglobin 28.4 pg (27.0-31.2); Mean Corpuscular Volume 88.1 fl (81-99); Mean Platelet Volume 7.9 fl (7.4-10.4); Monocytes # 0.6 K/mm3 (0.1-1.0); Monocytes % 4.7 % (1.7-9.3); Neutrophils # 9.7 K/mm3 (1.8-7.8); Neutrophils % 74.1 % (37.0-80.0); Platelet Count 441 K/mm3 (142-424); Red Blood Count 5.22 M/mm3 (4.20-5.40); Red Cell Distribution Width 14.5 % (11.5-17.5); White Blood Count 13.1 K/mm3 (4.8-10.8)
--- NOTE | 2021-10-25 19:37 | CT_ITS ---
PROCEDURE INFORMATION: Exam: CT Abdomen And Pelvis Without Contrast Exam date and time: 10/25/2021 7:37 PM Age: 36 years old Clinical indication: Abdominal pain; Flank; Left; Additional info: Left flank pain, R/O stone TECHNIQUE: Imaging protocol: Computed tomography of the abdomen and pelvis without contrast. Radiation optimization: All CT scans at this facility use at least one of these dose optimization techniques: automated exposure control; mA and/or kV adjustment per patient size (includes targeted exams where dose is matched to clinical indication); or iterative reconstruction. COMPARISON: CT ABDOMEN PELVIS WO CON 08/29/2021 2:47 PM FINDINGS: Liver: Normal. No mass. Gallbladder and bile ducts: There has been a cholecystectomy. Pancreas: Normal. No ductal dilation. Spleen: Normal. No splenomegaly. Adrenal glands: Normal. No mass. Kidneys and ureters: 5 mm calcification present within the inferior aspect of the left kidney without obstructive uropathy. 8 mm calcification is present within the right renal pelvis without evidence of obstructive uropathy. Stomach and bowel: Mild diverticulosis is present in the distal colon. Appendix: No evidence of appendicitis. Intraperitoneal space: Normal. No significant fluid collection. Vasculature: Unremarkable. No abdominal aortic aneurysm. Lymph nodes: Unremarkable. No enlarged lymph nodes. Urinary bladder: Unremarkable as visualized. Reproductive: There has been a hysterectomy. Bones/joints: Unremarkable. No acute fracture. Soft tissues: Soft tissues are normal. IMPRESSION: 1. 5 mm calcification present within the inferior aspect of the left kidney without obstructive uropathy. 2. 8 mm calcification is present within the right renal pelvis without evidence of obstructive uropathy. 3. Mild diverticulosis is present in the distal colon.
[2021-10-25 19:39] LABS: Chloride 105 mmol/L (98-107)
[2021-10-25 19:40] LABS: Potassium 3.8 mmoL/L (3.5-5.1); Sodium 138 mmol/L (136-145)
--- NOTE | 2021-10-25 19:40 | HMH.EDGENADL ---
ED Disposition Clinical Impression: Pyelonephritis, Cough Disposition: Home, Self-Care Condition on Discharge: Good Instructions: DI for Kidney Infection, DI for Cough -- Adult Additional Instructions: Take Levaquin as prescribed. Quarantine yourself until you obtain your COVID-19 test result. You will be called with the result if it is positive. You may check the results yourself on the [facility] portal. Prescriptions: levoFLOXacin [Levaquin 500mg tab] 500 mg PO DAILY #9 tab Transmission Status: Pending to [facility] Referrals: Landy Carroll [Primary Care Provider] - - Critical Care Critical Care Time: No Attestation: On 10/25/21, the high probability of a clinically significant, sudden or life threatening deterioration of the following system(s) required my full and direct attention, intervention and personal management. The time I documented below is in addition to time spent performing reported procedures but includes the following listed in this critical care notation. Medical Decision Making - Olu Inquiry Pt receiving controlled substance: No Olu was queried for this patient: Yes Vital Signs: 10/25/21 18:01 Temperature 98 F Temperature Source Oral Pulse Rate [Radial] 107 H Respiratory Rate 20 Blood Pressure [Right Arm] 171/109 H Blood Pressure Mean [Right Arm] 129 Blood Pressure Position [Right Arm] Sitting 02 Sat by Pulse Oximetry 98 Oxygen Delivery Method Room Air - Lab Data Lab Results 10/25/21 18:05: Urine Color Yellow, Urine Appearance Cloudy, Urine pH 6.0, Ur Specific [place] 1.025, Urine Protein Trace, Urine Glucose (UA) Negative, Urine Ketones Negative, Urine Blood 2+, Urine Nitrate Negative, Urine Bilirubin Negative, Urine Urobilinogen 0.2, Ur Leukocyte Esterase 2+ A, Urine RBC 10-20, Urine WBC Tntc, Ur Squamous Epith Cells 10-20, Calcium Oxalate Crystal 1+, Urine Bacteria 3+ 10/25/21 19:28: WBC 13.1 H, RBC 5.22, Hgb 14.8, Hct 46.0, MCV 88.1, MCH 28.4, MCHC 32.2, RDW 14.5, Plt Count 441 H, MPV 7.9, Neut % (Auto) 74.1, Lymph % (Auto) 16.9, [place] % (Auto) 4.7, Eos % (Auto) 3.1, Baso % (Auto) 1.1, Neut # (Auto) 9.7 H, Lymph # (Auto) 2.2, [place] # (Auto) 0.6, Eos # (Auto) 0.4, Baso # (Auto) 0.2 10/25/21 19:28: Sodium 138, Potassium 3.8, Chloride 105, Carbon Dioxide 25, Anion Gap 11.8, BUN 15, Creatinine 0.90, Estimated Creat Clear 68, Estimated GFR 71, Est GFR ( Amer) 86, Glucose 100, Calcium 8.2 L, Total Bilirubin 0.5, AST 32, ALT 35, Alkaline Phosphatase 85, Total Protein 7.7, Albumin 4.1, Globulin 3.6 H, Albumin/Globulin Ratio 1.1 Result diagrams: 10/25/21 19:28 10/25/21 19:28 Orders (Tests/Meds): ED MEDICATIONS Generic Name Dose Route Start Last Admin Trade Name Freq PRN Reason Stop Dose Admin Levofloxacin/Dextrose 750 mg in 150 mls @ 100 mls/hr 10/25/21 19:45 10/25/21 19:42 Levofloxacin 750mg/150ml Premix IV 11/08/21 19:44 100 mls/hr Q24H JUANA Administration ORDERS Category Date Time Status Covid-19 Nasal PCR ([facility]) Routine Lab 10/25/21 19:38 Received Urine Culture Stat Micro 10/25/21 18:05 Received - Radiology Data #1 Image(s): Chest Image Reviewed: Yes I reviewed the patient's radiology image, Yes I have reviewed radiologist's interpretation PROCEDURE INFORMATION: Exam: XR Chest Exam date and time: 10/25/2021 6:45 PM Age: 36 years old Clinical indication: Cough TECHNIQUE: Imaging protocol: XR of the chest. Views: 2 views. COMPARISON: CR XR CHEST 2V 05/20/2021 12:06 AM FINDINGS: Lungs: Unremarkable. No consolidation. Pleural spaces: Unremarkable. No pleural effusion. No pneumothorax. Heart/Mediastinum: Unremarkable. No cardiomegaly. Bones/joints: Unremarkable. IMPRESSION: No acute findings. - CT Data CT Scan: Abdomen, Pelvis Time Received: 20:[address] Reviewed: Yes: I have viewed the radiologist's
[2021-10-25 19:42] LABS: Alanine Aminotransferase 35 U/L (12-78); Alkaline Phosphatase 85 U/L (38-126); Aspartate Amino Transferase 32 U/L (14-36); Bilirubin,Total 0.5 mg/dl (0.2-1.3); Blood Urea Nitrogen 15 mg/dl (7-17); Creatinine Clearance Estimated 68 mL/min (50-200); Estimated Glomerular Filt Rate 71 ml/min (>60); GFR (African American) 86 ML/MIN (>60)
[2021-10-25 19:43] LABS: Albumin Level 4.1 g/dl (3.5-5.0); Albumin/Globulin Ratio 1.1 (1.1-1.8); Anion Gap 11.8 mEq/L (5-15); Calcium 8.2 mg/dl (8.4-10.2); Carbon Dioxide 25 mmol/L (22.0-30.0); Globulin 3.6 g/dL (1.3-3.2); Glucose 100 mg/dl (74-100); Total Protein,Serum 7.7 g/dl (6.3-8.2)
[2021-10-25 21:03] VITALS: BP 185/96; PULSE 99; RESP 16; TEMP 36.7; O2SAT 98
== END 2021-10-25 21:06 | disposition home or self-care (01) ==
PROVIDERS: Emergency Provider Emergency Medicine; PCP Internal Medicine
DX: N12 Tubulo-interstitial nephritis, not specified as acute or chronic (principal); F41.8 Other specified anxiety disorders; E78.5 Hyperlipidemia, unspecified; I10 Essential (primary) hypertension; M79.7 Fibromyalgia
CPT/HCPCS: 71046; 74176; 80053; 81001; 85025; 87086; 96365; 99283; C9803; J1956; U0003; U0005

== ENCOUNTER 2021-10-31 16:20 | Emergency (ER) | payer OTHER, SELFPAY ==
[2021-10-31 16:21] VITALS: BP 155/95; PULSE 91; RESP 20; TEMP 36.8; O2SAT 98; BMI 43.5
--- NOTE | 2021-10-31 16:35 | HMH.EDGENADL ---
ED Disposition Clinical Impression: Right flank pain Disposition: Home, Self-Care Condition on Discharge: Fair Referrals: Landy Carroll [Primary Care Provider] - - Critical Care Critical Care Time: No Attestation: On 10/31/21, the high probability of a clinically significant, sudden or life threatening deterioration of the following system(s) required my full and direct attention, intervention and personal management. The time I documented below is in addition to time spent performing reported procedures but includes the following listed in this critical care notation. Medical Decision Making - Olu Inquiry Pt receiving controlled substance: Yes Olu was queried for this patient: No Risks and benefits of using a controlled substance: were discussed with pt by me Vital Signs: 10/31/21 16:21 Temperature 98.2 F Temperature Source Oral Pulse Rate [Radial] 91 H Respiratory Rate 20 Blood Pressure [Right Arm] 155/95 H Blood Pressure Mean [Right Arm] 115 Blood Pressure Position [Right Arm] Sitting 02 Sat by Pulse Oximetry 98 Oxygen Delivery Method Room Air - Lab Data Lab Results 10/31/21 16:25: Urine Color Yellow, Urine Appearance Cloudy, Urine pH 6.0, Ur Specific [place] 1.025, Urine Protein Negative, Urine Glucose (UA) Negative, Urine Ketones Negative, Urine Blood 1+, Urine Nitrate Negative, Urine Bilirubin Negative, Urine Urobilinogen 0.2, Ur Leukocyte Esterase 2+ A, Urine RBC 10-20, Urine WBC 10-20, Ur Squamous Epith Cells 3-5, Urine Bacteria 2+ 10/31/21 16:25: Urine HCG, Qual Positive 10/31/21 16:50: WBC 9.8, RBC 5.21, Hgb 14.8, Hct 45.6, MCV 87.6, MCH 28.3, MCHC 32.3, RDW 14.2, Plt Count 448 H, MPV 7.5, Neut % (Auto) 68.9, Lymph % (Auto) 23.4, [place] % (Auto) 4.2, Eos % (Auto) 3.1, Baso % (Auto) 0.4, Neut # (Auto) 6.8, Lymph # (Auto) 2.3, [place] # (Auto) 0.4, Eos # (Auto) 0.3, Baso # (Auto) 0.0 10/31/21 16:50: Sodium 139, Potassium 3.7, Chloride 108 H, Carbon Dioxide 24, Anion Gap 10.7, BUN 20 H, Creatinine 0.80, Estimated Creat Clear 77, Estimated GFR 81, Est GFR ( Amer) 98, Glucose 107 H, Calcium 9.0, Total Bilirubin 0.3, AST 36, ALT 37, Alkaline Phosphatase 73, Total Protein 7.4, Albumin 4.0, Globulin 3.4 H, Albumin/Globulin Ratio 1.2, Lipase 134 10/31/21 16:50: Lactate 1.4 10/31/21 16:50: HCG, Quant 6 H Result diagrams: 10/31/21 16:50 10/31/21 16:50 Orders (Tests/Meds): ED MEDICATIONS Generic Name Dose Route Start Last Admin Trade Name Freq PRN Reason Stop Dose Admin Lactated Ringer's 1,000 mls @ 999 mls/hr 10/31/21 17:00 10/31/21 17:06 Lactated Ringer's 1000 Ml Bag IV 10/31/21 18:00 999 mls/hr .Q1H1M JUANA Administration Sodium Chloride 10 ml 10/31/21 16:52 Sodium Chloride 0.9% 10ml Flush Syringe IV 11/01/21 04:52 NEEDED PRN Maintain IV Site Discontinued Medications Generic Name Dose Route Start Last Admin Trade Name Freq PRN Reason Stop Dose Admin Hydromorphone HCl 1 mg 10/31/21 18:24 10/31/21 18:37 Hydromorphone 2mg/Ml Syringe IV 10/31/21 18:25 1 mg ONCE ONE Administration Morphine Sulfate 6 mg 10/31/21 16:55 10/31/21 17:07 Morphine 4mg/Ml Syringe IV 10/31/21 16:56 6 mg ONCE ONE Administration Promethazine HCl 12.5 mg 10/31/21 16:54 10/31/21 17:06 Promethazine Hcl 25mg/Ml 1ml Vial IV 10/31/21 16:55 12.5 mg ONCE ONE Administration Sodium Chloride 25 ml 10/31/21 16:54 10/31/21 17:06 Sodium Chloride 0.9% 25ml Bag IV 10/31/21 16:55 25 ml ONCE ONE Administration ORDERS Category Date Time Status Urine Culture Stat Micro 10/31/21 16:25 Received Medical Decision Narrative: 36 yo female presents for right flank pain. Patient appears in NAD, is afebrile, HDS. She has bilateral CVAT on exam R>L. Has chronic hx of recurrent nephrolithiasis and UTI and had recent CT A/P showing left sided stones that were non obstructive, without PAUL, and UA with elevated wbc, but with urine culture showing mixed anibal. Sh
[2021-10-31 16:57] VITALS: BMI 43.5
[2021-10-31 16:58] LABS: Microscopic, Urine URINE MICROSCOPIC (MICROSCOPIC)
[2021-10-31 17:04] LABS: Appearance,Urine CLOUDY (Clear); Bilirubin,Urine Negative (Negative); Blood, Urine 1+ (Negative); Color,Urine YELLOW (Yellow); Glucose,Urine (UA) Negative (Negative); Ketones,Urine Negative (Negative); Leukocyte Esterase,Urine 2+ (Negative); Nitrate,Urine Negative (Negative); Protein,Urine Negative (Negative); Specific Gravity, Urine 1.025 (1.005-1.030); Urobilinogen,Urine 0.2 EU/dl (0.2)
[2021-10-31 17:09] LABS: Basophils % 0.4 % (0.1-2.0); Eosinophils # 0.3 K/mm3 (0.0-0.4); Eosinophils % 3.1 % (0.1-12.0); Hematocrit 45.6 % (37.0-47.0); Hemoglobin 14.8 g/dL (12.2-16.2); Lymphocytes # 2.3 K/mm3 (0.7-4.5); Lymphocytes % 23.4 % (10-50); Mean Corpuscular HGB Conc 32.3 g/dL (31.8-35.4); Mean Corpuscular Hemoglobin 28.3 pg (27.0-31.2); Mean Corpuscular Volume 87.6 fl (81-99); Mean Platelet Volume 7.5 fl (7.4-10.4); Monocytes # 0.4 K/mm3 (0.1-1.0); Monocytes % 4.2 % (1.7-9.3); Neutrophils # 6.8 K/mm3 (1.8-7.8); Neutrophils % 68.9 % (37.0-80.0); Platelet Count 448 K/mm3 (142-424); Red Blood Count 5.21 M/mm3 (4.20-5.40); Red Cell Distribution Width 14.2 % (11.5-17.5); White Blood Count 9.8 K/mm3 (4.8-10.8)
[2021-10-31 17:25] LABS: Lactic Acid 1.4 mmol/L (0.7-2.1)
[2021-10-31 17:26] LABS: Alanine Aminotransferase 37 U/L (12-78); Albumin/Globulin Ratio 1.2 (1.1-1.8); Alkaline Phosphatase 73 U/L (38-126); Anion Gap 10.7 mEq/L (5-15); Aspartate Amino Transferase 36 U/L (14-36); Bilirubin,Total 0.3 mg/dl (0.2-1.3); Blood Urea Nitrogen 20 mg/dl (7-17); Carbon Dioxide 24 mmol/L (22.0-30.0); Chloride 108 mmol/L (98-107); Creatinine Clearance Estimated 77 mL/min (50-200); Estimated Glomerular Filt Rate 81 ml/min (>60); GFR (African American) 98 ML/MIN (>60); Globulin 3.4 g/dL (1.3-3.2); Glucose 107 mg/dl (74-100); Lipase 134 U/L (23-300); Potassium 3.7 mmoL/L (3.5-5.1); Sodium 139 mmol/L (136-145); Total Protein,Serum 7.4 g/dl (6.3-8.2)
[2021-10-31 17:41] LABS: Bacteria,Urine 2+ /lpf
[2021-10-31 17:48] LABS: Urine Pregnancy, HCG Qual. Positive (Negative)
[2021-10-31 18:01] LABS: HCG,Quantitative 6 mIU/ml (0-5.42)
[2021-10-31 18:56] VITALS: BP 154/78; PULSE 75; RESP 18; TEMP 36.8; O2SAT 98
== END 2021-10-31 19:19 | disposition home or self-care (01) ==
PROVIDERS: Emergency Provider Student in an Organized Health Care Education/Training Program; PCP Internal Medicine
DX: N20.0 Calculus of kidney (principal); M79.7 Fibromyalgia; F41.8 Other specified anxiety disorders; K21.9 Gastro-esophageal reflux disease without esophagitis; E78.5 Hyperlipidemia, unspecified; I10 Essential (primary) hypertension; Z79.899 Other long term (current) drug therapy
CPT/HCPCS: 80053; 81001; 81025; 83605; 83690; 84702; 85025; 87086; 96365; 96375; 99283; 99284

== ENCOUNTER 2021-11-02 02:36 | Emergency (ER) | payer OTHER, SELFPAY ==
[2021-11-02 02:37] VITALS: BP 202/120; PULSE 118; RESP 20; TEMP 36.9; O2SAT 98; BMI 43.5
[2021-11-02 03:02] LABS: Microscopic, Urine URINE MICROSCOPIC (MICROSCOPIC)
[2021-11-02 03:03] LABS: Appearance,Urine SL CLOUDY (Clear); Bilirubin,Urine Negative (Negative); Blood, Urine 3+ (Negative); Color,Urine YELLOW (Yellow); Glucose,Urine (UA) Negative (Negative); Ketones,Urine Negative (Negative); Leukocyte Esterase,Urine 2+ (Negative); Nitrate,Urine Negative (Negative); Protein,Urine TRACE (Negative); Specific Gravity, Urine 1.025 (1.005-1.030); Urobilinogen,Urine 0.2 EU/dl (0.2)
--- NOTE | 2021-11-02 03:04 | CT_ITS ---
PROCEDURE INFORMATION: Exam: CT Abdomen And Pelvis Without Contrast Exam date and time: 11/02/2021 3:04 AM Age: 36 years old Clinical indication: Abdominal pain; Flank; Left; Additional info: Flank pain left HX of kidney stones TECHNIQUE: Imaging protocol: Computed tomography of the abdomen and pelvis without contrast. Radiation optimization: All CT scans at this facility use at least one of these dose optimization techniques: automated exposure control; mA and/or kV adjustment per patient size (includes targeted exams where dose is matched to clinical indication); or iterative reconstruction. COMPARISON: CT ABDOMEN PELVIS WO CON 10/25/2021 7:42 PM FINDINGS: Lungs: Minimal atelectasis in the lung bases. Pleural spaces: No pleural effusion. Heart: The visualized heart is normal. No pericardial effusion. Liver: Mild hepatomegaly. Gallbladder and bile ducts: The gallbladder is absent. No intra or extrahepatic biliary ductal dilation. Pancreas: Normal. No ductal dilation. Spleen: The spleen is unremarkable. Small anterior splenule. Adrenal glands: The adrenal glands are normal. Kidneys and ureters: The kidneys have expected non-contrast appearance without hydronephrosis. 5 mm stone within the inferior pole of the left kidney. 7 mm stone within the right renal pelvis.The ureters have normal course and caliber without stone. Stomach and bowel: The stomach is normal. The small bowel has normal course and caliber. The large bowel has normal course and caliber with scattered colonic diverticula. No significant pericolonic inflammation. Appendix: The appendix is normal. Intraperitoneal space: Unremarkable. No free air. No significant fluid collection. Vasculature: Unremarkable. No abdominal aortic aneurysm. Lymph nodes: Unremarkable. No enlarged lymph nodes. Urinary bladder: The bladder is normal without focal wall thickening. Reproductive: The uterus is absent. No adnexal cysts or masses are identified. Bones/joints: Unremarkable. No acute fracture. Soft tissues: There is a small fat-containing umbilical hernia. Otherwise, the superficial soft tissues are unremarkable. IMPRESSION: 1. 7 mm stone within the right renal pelvis. 2. 5 mm stone within the inferior pole of the left kidney. 3. No hydronephrosis. 4. Other findings as above.
[2021-11-02 03:11] LABS: RBC,Urine 50-100 #/hpf (0-3)
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
[2021-11-02 04:30] VITALS: BP 195/98; PULSE 99; RESP 18; TEMP 36.9; O2SAT 98
== END 2021-11-02 04:41 | disposition home or self-care (01) ==
PROVIDERS: Emergency Provider Emergency Medicine; PCP Internal Medicine
DX: N20.1 Calculus of ureter (principal); M79.7 Fibromyalgia; I10 Essential (primary) hypertension; F41.8 Other specified anxiety disorders; K21.9 Gastro-esophageal reflux disease without esophagitis; E78.5 Hyperlipidemia, unspecified; Z79.899 Other long term (current) drug therapy
CPT/HCPCS: 74176; 81001; 87086; 99282; 99284

== ENCOUNTER 2021-11-08 16:32 | Emergency (ER) | payer OTHER, SELFPAY ==
[2021-11-08 16:33] VITALS: BP 177/105; PULSE 111; RESP 24; TEMP 36.8; O2SAT 96; BMI 21.4; BMI 42.0
--- NOTE | 2021-11-08 16:44 | PC.NURSE ---
urine collected and sent to the lab
[2021-11-08 16:45] LABS: Microscopic, Urine URINE MICROSCOPIC (MICROSCOPIC)
[2021-11-08 17:01] LABS: Appearance,Urine CLEAR (Clear); Bilirubin,Urine Negative (Negative); Blood, Urine 2+ (Negative); Color,Urine YELLOW (Yellow); Glucose,Urine (UA) Negative (Negative); Ketones,Urine Negative (Negative); Leukocyte Esterase,Urine 2+ (Negative); Nitrate,Urine Negative (Negative); Protein,Urine Negative (Negative); Specific Gravity, Urine 1.025 (1.005-1.030); Urobilinogen,Urine 0.2 EU/dl (0.2)
[2021-11-08 17:21] LABS: Bacteria,Urine 1+ /lpf
[2021-11-08 17:37] LABS: Basophils % 0.3 % (0.1-2.0); Eosinophils # 0.4 K/mm3 (0.0-0.4); Eosinophils % 3.1 % (0.1-12.0); Hemoglobin 15.4 g/dL (12.2-16.2); Lymphocytes # 1.6 K/mm3 (0.7-4.5); Lymphocytes % 12.7 % (10-50); Mean Corpuscular HGB Conc 33.5 g/dL (31.8-35.4); Mean Corpuscular Hemoglobin 28.8 pg (27.0-31.2); Mean Corpuscular Volume 86.1 fl (81-99); Mean Platelet Volume 7.1 fl (7.4-10.4); Monocytes # 0.6 K/mm3 (0.1-1.0); Monocytes % 4.6 % (1.7-9.3); Neutrophils # 9.9 K/mm3 (1.8-7.8); Neutrophils % 79.2 % (37.0-80.0); Platelet Count 406 K/mm3 (142-424); Red Blood Count 5.35 M/mm3 (4.20-5.40); Red Cell Distribution Width 14.3 % (11.5-17.5); White Blood Count 12.5 K/mm3 (4.8-10.8)
[2021-11-08 17:49] LABS: Urine Pregnancy, HCG Qual. Negative (Negative)
[2021-11-08 17:53] LABS: Chloride 103 mmol/L (98-107); Potassium 3.9 mmoL/L (3.5-5.1); Sodium 137 mmol/L (136-145)
[2021-11-08 17:56] LABS: Alanine Aminotransferase 37 U/L (12-78); Albumin Level 4.1 g/dl (3.5-5.0); Albumin/Globulin Ratio 1.2 (1.1-1.8); Alkaline Phosphatase 98 U/L (38-126); Anion Gap 11.9 mEq/L (5-15); Aspartate Amino Transferase 38 U/L (14-36); Bilirubin,Total 0.6 mg/dl (0.2-1.3); Calcium 8.4 mg/dl (8.4-10.2); Carbon Dioxide 26 mmol/L (22.0-30.0); Globulin 3.5 g/dL (1.3-3.2); Glucose 90 mg/dl (74-100); Lipase 169 U/L (23-300); Total Protein,Serum 7.6 g/dl (6.3-8.2)
--- NOTE | 2021-11-08 18:00 | PC.NURSE ---
PT RESTING STATES FEELING IMPROVED WITH MEDS GIVEN
[2021-11-08 18:01] LABS: Blood Urea Nitrogen 17 mg/dl (7-17); Creatinine Clearance Estimated 77 mL/min (50-200); Estimated Glomerular Filt Rate 81 ml/min (>60); GFR (African American) 98 ML/MIN (>60)
--- NOTE | 2021-11-08 18:25 | PC.NURSE ---
pt is resting in bed. nothing needed at this time.
--- NOTE | 2021-11-08 18:51 | HMH.EDGENADL ---
ED Disposition Clinical Impression: Cystitis Disposition: Home, Self-Care Condition on Discharge: Good Instructions: DI for Urinary Tract Infection (UTI) Prescriptions: cephALEXin [Cephalexin 500mg Tab] 500 mg PO BID #14 tab Transmission Status: Pending to [facility] Promethazine HCl [Phenergan 25mg tab] 25 mg PO BID #12 tab Transmission Status: Pending to [facility] Referrals: Landy Carroll [Primary Care Provider] - - Critical Care Critical Care Time: No Attestation: On 11/08/21, the high probability of a clinically significant, sudden or life threatening deterioration of the following system(s) required my full and direct attention, intervention and personal management. The time I documented below is in addition to time spent performing reported procedures but includes the following listed in this critical care notation. Medical Decision Making - Medical Records Medical records reviewed: Yes: I reviewed the patient's medical records. - Olu Inquiry Pt receiving controlled substance: No Vital Signs: 11/08/21 16:33 Temperature 98.3 F Temperature Source Oral Pulse Rate [Radial] 111 H Respiratory Rate 24 Blood Pressure [Right Arm] 177/105 H Blood Pressure Mean [Right Arm] 129 Blood Pressure Source [Right Arm] Manual Cuff/ Palpation Blood Pressure Position [Right Arm] Sitting 02 Sat by Pulse Oximetry 96 Oxygen Delivery Method Room Air - Lab Data Lab Results 11/08/21 16:41: Urine Color Yellow, Urine Appearance Clear, Urine pH 6.0, Ur Specific [place] 1.025, Urine Protein Negative, Urine Glucose (UA) Negative, Urine Ketones Negative, Urine Blood 2+, Urine Nitrate Negative, Urine Bilirubin Negative, Urine Urobilinogen 0.2, Ur Leukocyte Esterase 2+ A, Urine RBC 5-10, Urine WBC 5-10, Ur Squamous Epith Cells 3-5, Urine Bacteria 1+ 11/08/21 17:30: WBC 12.5 H, RBC 5.35, Hgb 15.4, Hct 46.0, MCV 86.1, MCH 28.8, MCHC 33.5, RDW 14.3, Plt Count 406, MPV 7.1 L, Neut % (Auto) 79.2, Lymph % (Auto) 12.7, Towns % (Auto) 4.6, Eos % (Auto) 3.1, Baso % (Auto) 0.3, Neut # (Auto) 9.9 H, Lymph # (Auto) 1.6, Towns # (Auto) 0.6, Eos # (Auto) 0.4, Baso # (Auto) 0.0 11/08/21 17:30: Urine HCG, Qual Negative 11/08/21 17:30: Sodium 137, Potassium 3.9, Chloride 103, Carbon Dioxide 26, Anion Gap 11.9, BUN 17, Creatinine 0.80, Estimated Creat Clear 77, Estimated GFR 81, Est GFR ( Amer) 98, Glucose 90, Calcium 8.4, Total Bilirubin 0.6, AST 38 H, ALT 37, Alkaline Phosphatase 98, Total Protein 7.6, Albumin 4.1, Globulin 3.5 H, Albumin/Globulin Ratio 1.2, Lipase 169 Result diagrams: 11/08/21 17:30 11/08/21 17:30 Orders (Tests/Meds): ED MEDICATIONS Generic Name Dose Route Start Last Admin Trade Name Freq PRN Reason Stop Dose Admin Sodium Chloride 1,000 mls @ 999 mls/hr 11/08/21 17:00 11/08/21 17:34 Sod Chlor 0.9% 1000ml Bag IV 11/08/21 18:00 999 mls/hr .Q1H1M JUANA Administration Discontinued Medications Generic Name Dose Route Start Last Admin Trade Name Freq PRN Reason Stop Dose Admin Morphine Sulfate 4 mg 11/08/21 16:55 11/08/21 17:34 Morphine 4mg/Ml Syringe IV 11/08/21 16:56 4 mg ONCE ONE Administration Promethazine HCl 12.5 mg 11/08/21 16:56 11/08/21 17:34 Promethazine Hcl 25mg/Ml 1ml Vial IV 11/08/21 16:57 12.5 mg ONCE ONE Administration Sodium Chloride 25 ml 11/08/21 16:56 Sodium Chloride 0.9% 25ml Bag IV 11/08/21 16:57 ONCE ONE ORDERS Category Date Time Status Urine Culture Stat Micro 11/08/21 16:41 Received - Reevaluation(s) Time: 18:55 Reevaluation #1: On reevaluation, patient is feeling better. She is resting comfortably in bed. Repeat abdominal examination is benign. Findings are consistent with UTI. Patient be placed on short course antibiotics. Needs follow-up with PCP in 48 hours. Given strict return precaution. Verbalized understanding. Medical Decision Narrative: 36-year-old female presenting with some l
[2021-11-08 19:39] VITALS: BP 153/96; PULSE 119; RESP 20; TEMP 36.8; O2SAT 99
== END 2021-11-08 20:05 | disposition home or self-care (01) ==
PROVIDERS: Emergency Provider Emergency Medicine; PCP Internal Medicine
DX: N30.00 Acute cystitis without hematuria (principal); F41.8 Other specified anxiety disorders; K21.9 Gastro-esophageal reflux disease without esophagitis; E78.5 Hyperlipidemia, unspecified; I10 Essential (primary) hypertension; M79.7 Fibromyalgia; Z88.0 Allergy status to penicillin; Z88.2 Allergy status to sulfonamides; Z88.8 Allergy status to other drugs, medicaments and biological substances; Z79.899 Other long term (current) drug therapy
CPT/HCPCS: 80053; 81001; 81025; 83690; 85025; 87086; 96365; 96375; 99282; 99284

== ENCOUNTER 2021-11-16 14:01 | Emergency (ER) | payer OTHER, SELFPAY ==
[2021-11-16 14:27] VITALS: BP 184/112; PULSE 96; RESP 17; TEMP 36.8; O2SAT 98; BMI 45.7
[2021-11-16 14:43] LABS: Microscopic, Urine URINE MICROSCOPIC (MICROSCOPIC)
[2021-11-16 14:47] LABS: Appearance,Urine CLOUDY (Clear); Bilirubin,Urine Negative (Negative); Blood, Urine 3+ (Negative); Color,Urine YELLOW (Yellow); Glucose,Urine (UA) Negative (Negative); Ketones,Urine Negative (Negative); Leukocyte Esterase,Urine 2+ (Negative); Nitrate,Urine Negative (Negative); Protein,Urine 1+ (Negative); Specific Gravity, Urine 1.025 (1.005-1.030); Urobilinogen,Urine 0.2 EU/dl (0.2)
[2021-11-16 14:54] LABS: Bacteria,Urine 2+ /lpf; RBC,Urine 50-100 #/hpf (0-3); WBC,Urine 20-50 #/hpf (0-3)
[2021-11-16 15:00] VITALS: BP 195/115
--- NOTE | 2021-11-16 15:20 | PC.NURSE ---
pt complains of increased pain.
--- NOTE | 2021-11-16 15:22 | HMH.EDGENADL ---
ED Disposition Clinical Impression: Left ureteral calculus Disposition: Home, Self-Care Condition on Discharge: Fair Instructions: DI for Kidney Stones Additional Instructions: See Dr. Acosta as soon as possible this week. Call tomorrow morning to make appointment. Tylenol 3 take-home pack, and then Percocet for pain when prescription filled. Phenergan take-home pack and prescription as needed for nausea. Omnicef as prescribed. Flomax as prescribed. Additional instructions for KIDNEY STONE (URETERAL CALCULUS): Drink plenty of fluids. Strain your urine and save any stones you catch. Return immediately if you develop a fever or have uncontrollable vomiting or uncontrollable pain. Additional instructions regarding BLOOD PRESSURE: One or more of your blood pressure readings elevated today. Please contact your primary care physician for further evaluation or treatment of your blood pressure. Additional instructions for CONTROLLED SUBSTANCES: You have been prescribed a medication that is a controlled substance. Controlled substances include pain medications known as opiates and sedative nerve medications known as benzodiazepines. Tramadol, fioricet, and gabapentin are also controlled substances. Some common opiates include: Codeine (such as Tylenol #3) Hydrocodone (Vicodin, Lortab, Lorcet, [place]) Oxycodone (Percocet, Percodan, Oxycodone, Oxy IR) Some common benzodiazepines include: Diazepam (Valium) Lorazepam (Ativan) Alprazolam (Xanax) Clonazepam (Klonopin) Oxazepam (Serax) All of these controlled substances are highly addictive and frequently abused. Misuse can and frequently does lead to addiction as well as overdose and . Medication should be stored in a locked cabinet or other secure storage unit. Do not store the medication in a motor vehicle. Short term supplies, 3 days or less, are prescribed because of the highly addictive nature of the medication. Any of the controlled substance medication NOT taken should be disposed of properly and NOT SAVED. The recommended method of disposing of unused medications is: Place the medicines in a sealable plastic bag. If the medicine is a solid, crush it or add water to dissolve it. Add something undesirable (cat litter, coffee grounds, etc.) Dispose of sealed bag in household trash Do not flush or pour unused medicines down a sink or drain. Controlled substances should not be shared, given away or sold. Because of the addictive nature and frequent abuse, these medications are sometimes stolen. These medications should be kept in a safe place where they cannot be stolen. Do not keep them in your car or purse. Lost or stolen prescriptions for controlled substances WILL NOT BE REFILLED in this emergency department, regardless of whether a police report was filed. Prescriptions: Oxycodone HCl/Acetaminophen [Percocet 5/325mg tablet] 1 tab PO Q6HP PRN #15 tablet PRN Reason: Moderate To Severe Pain Transmission Status: Sent to [facility] Promethazine HCl [Phenergan 25mg tab] 25 mg PO Q6HP PRN #10 tab PRN Reason: Nausea And Vomiting Transmission Status: Pending to [facility] Tamsulosin HCl [Flomax 0.4mg capsule] 0.4 mg PO HS #10 cap Transmission Status: Pending to [facility] Cefdinir [Omnicef 300mg Capsule] 300 mg PO BID #20 cap Transmission Status: Pending to [facility] Referrals: Landy Carroll [Primary Care Provider] - - Critical Care Critical Care Time: No Attestation: On 11/16/21, the high probability of a clinically significant, sudden or life threatening deterioration of the following system(s) required my full and direct attention, intervention and personal management. The time I documented below is in addition to time spent performing reported procedures but includes the following listed in this critical care notation. Medical Decision Making - Olu Inquiry Pt receiving controlled s
--- NOTE | 2021-11-16 15:33 | CT_ITS ---
PROCEDURE INFORMATION: Exam: CT Chest Without Contrast; Diagnostic Exam date and time: 11/16/2021 3:33 PM Age: 36 years old Clinical indication: Abdominal pain; Flank; Left; Prior surgery; Surgery date: 6+ months; Surgery type: Hysterectomy, kidney stones removed in past. ; Additional info: Left flank pain TECHNIQUE: Imaging protocol: Diagnostic computed tomography of the chest without contrast. COMPARISON: CT ABDOMEN PELVIS WO [facility] 11/02/2021 3:41 AM FINDINGS: Lungs: Minimal bibasilar atelectasis Pleural spaces: Unremarkable. No pneumothorax. No pleural effusion. Heart: Unremarkable. No cardiomegaly. No pericardial effusion. Aorta: Unremarkable. No aortic aneurysm. Lymph nodes: Enlarged lymph node in the left axilla 21 x 13 mm. Enlarged lymph node in the right axilla 17 by 10 mm Bones/joints: Unremarkable. No acute fracture. Soft tissues: Unremarkable. IMPRESSION: Enlarged lymph node in the left axilla 21 by 13 mm PROCEDURE INFORMATION: Exam: CT Abdomen And Pelvis Without Contrast Exam date and time: 11/16/2021 3:33 PM Age: 36 years old Clinical indication: Abdominal pain; Flank; Left; Prior surgery; Surgery date: 6+ months; Surgery type: Hysterectomy, kidney stones removed in past. ; Additional info: Left flank pain TECHNIQUE: Imaging protocol: Computed tomography of the abdomen and pelvis without contrast. Radiation optimization: All CT scans at this facility use at least one of these dose optimization techniques: automated exposure control; mA and/or kV adjustment per patient size (includes targeted exams where dose is matched to clinical indication); or iterative reconstruction. COMPARISON: CT ABDOMEN PELVIS WO [facility] 11/02/2021 3:41 AM FINDINGS: Liver: Normal. No mass. Gallbladder and bile ducts: Cholecystectomy Pancreas: Normal. No ductal dilation. Spleen: Normal. No splenomegaly. Adrenal glands: Normal. No mass. Kidneys and ureters: 4 mm calculus in the proximal left ureter. Series 3, image 74 and 75. Additional 3 mm LEFT UVJ calculus (series 3, image 124) . These ureteral calculi cause moderate dilatation of LEFT collecting system and LEFT ureter. The LEFT kidney is edematous and there is LEFT perirenal stranding. Nonobstructing left renal calculi. Nonobstructing right renal calculi Stomach and bowel: Unremarkable. No obstruction. No mucosal thickening. Appendix: Normal appendix Intraperitoneal space: Unremarkable. No free air. No significant fluid collection. Vasculature: Unremarkable. No abdominal aortic aneurysm. Lymph nodes: Unremarkable. No enlarged lymph nodes. Urinary bladder: Unremarkable as visualized. Reproductive: Surgical resection of the uterus Bones/joints: Unremarkable. No acute fracture. Soft tissues: Unremarkable. Other findings: . IMPRESSION: 4 mm calculus in the proximal left ureter. Series 3, image 74 and 75. Additional 3 mm LEFT UVJ calculus (series 3, image 124) . These ureteral calculi cause moderate dilatation of LEFT collecting system and LEFT ureter. The LEFT kidney is edematous and there is LEFT perirenal stranding.
--- NOTE | 2021-11-16 15:38 | PC.NURSE ---
Pt with rad.
[2021-11-16 16:57] LABS: Basophils # 0.2 K/mm3 (0-0.2); Basophils % 1.5 % (0.1-2.0); Eosinophils # 0.2 K/mm3 (0.0-0.4); Eosinophils % 1.4 % (0.1-12.0); Hematocrit 45.9 % (37.0-47.0); Lymphocytes # 1.7 K/mm3 (0.7-4.5); Lymphocytes % 11.6 % (10-50); Mean Corpuscular HGB Conc 32.6 g/dL (31.8-35.4); Mean Corpuscular Hemoglobin 28.3 pg (27.0-31.2); Mean Corpuscular Volume 86.7 fl (81-99); Mean Platelet Volume 7.7 fl (7.4-10.4); Monocytes # 0.5 K/mm3 (0.1-1.0); Monocytes % 3.2 % (1.7-9.3); Neutrophils # 12.1 K/mm3 (1.8-7.8); Neutrophils % 82.3 % (37.0-80.0); Platelet Count 465 K/mm3 (142-424); Red Cell Distribution Width 14.8 % (11.5-17.5); White Blood Count 14.7 K/mm3 (4.8-10.8)
[2021-11-16 17:00] LABS: Chloride 104 mmol/L (98-107); Sodium 137 mmol/L (136-145)
[2021-11-16 17:01] LABS: Potassium 3.6 mmoL/L (3.5-5.1)
[2021-11-16 17:04] LABS: Anion Gap 11.6 mEq/L (5-15); Calcium 8.4 mg/dl (8.4-10.2); Carbon Dioxide 25 mmol/L (22.0-30.0); Glucose 88 mg/dl (74-100)
[2021-11-16 17:06] VITALS: BP 167/107; PULSE 92; O2SAT 99
[2021-11-16 17:09] LABS: Blood Urea Nitrogen 15 mg/dl (7-17); Creatinine Clearance Estimated 77 mL/min (50-200); Estimated Glomerular Filt Rate 81 ml/min (>60); GFR (African American) 98 ML/MIN (>60)
[2021-11-16 20:22] VITALS: BP 157/90; PULSE 89; RESP 16; TEMP 36.8; O2SAT 99
--- NOTE | 2021-11-30 21:47 | PC.NURSE ---
Medical records sent to [facility]
== END 2021-11-16 20:53 | disposition home or self-care (01) ==
PROVIDERS: Emergency Provider Emergency Medicine; PCP Internal Medicine
DX: N20.0 Calculus of kidney (principal); J98.11 Atelectasis; R11.2 Nausea with vomiting, unspecified; I10 Essential (primary) hypertension; K21.9 Gastro-esophageal reflux disease without esophagitis; E78.5 Hyperlipidemia, unspecified; M79.7 Fibromyalgia; G43.909 Migraine, unspecified, not intractable, without status migrainosus; F43.10 Post-traumatic stress disorder, unspecified; F41.9 Anxiety disorder, unspecified; F17.290 Nicotine dependence, other tobacco product, uncomplicated; Z79.1 Long term (current) use of non-steroidal anti-inflammatories (NSAID); Z79.899 Other long term (current) drug therapy; Z88.0 Allergy status to penicillin; Z88.2 Allergy status to sulfonamides; Z88.5 Allergy status to narcotic agent; Z88.6 Allergy status to analgesic agent; Z88.8 Allergy status to other drugs, medicaments and biological substances; Z56.0 Unemployment, unspecified; Z95.0 Presence of cardiac pacemaker
CPT/HCPCS: 74176; 80048; 81001; 85025; 87086; 96374; 96375; 96376; 99284; J0696

== ENCOUNTER → 2021-12-16 13:27 | Outpatient (CLI) | payer OTHER, SELFPAY ==
--- NOTE | 2021-12-16 13:30 | XR_ITS ---
FINAL REPORT CLINICAL HISTORY: kidney stone rt flank pain FINDINGS: There is a nonobstructive bowel gas pattern. There are no abnormally dilated loops of small bowel. There is a 7 mm stone in the lower pole of the right kidney. Postoperative changes are seen in the right upper quadrant. IMPRESSION: Lower pole right renal stone. Reviewed, Interpreted and Dictated by Nicholas Escobedo III, MD Transcribed by Aubrey Dutton Authenticated by Nicholas Escobedo III, MD on 12/16/2021 03:03:[address] [facility]
== END ==
PROVIDERS: Visit Provider Urology
DX: N20.0 Calculus of kidney (principal)
CPT/HCPCS: 74018

== ENCOUNTER → 2021-12-17 15:36 | Outpatient (CLI) | payer OTHER, SELFPAY ==
[2021-12-17 15:40] LABS: MANUAL DIFFERENTIAL MANUAL DIFFERENTIAL (MANUAL DIFF)
[2021-12-17 17:04] LABS: Basophils # 0.1 K/mm3 (0-0.2); Basophils % 0.8 % (0.1-2.0); Eosinophils # 0.3 K/mm3 (0.0-0.4); Eosinophils % 2.4 % (0.1-12.0); Hematocrit 43.6 % (37.0-47.0); Hemoglobin 14.6 g/dL (12.2-16.2); Lymphocytes # 2.2 K/mm3 (0.7-4.5); Lymphocytes % 20.5 % (10-50); Mean Corpuscular HGB Conc 33.4 g/dL (31.8-35.4); Mean Corpuscular Hemoglobin 29.2 pg (27.0-31.2); Mean Corpuscular Volume 87.3 fl (81-99); Mean Platelet Volume 8.3 fl (7.4-10.4); Monocytes # 0.6 K/mm3 (0.1-1.0); Monocytes % 5.7 % (1.7-9.3); Neutrophils # 7.5 K/mm3 (1.8-7.8); Neutrophils % 70.6 % (37.0-80.0); Platelet Count 461 K/mm3 (142-424); Red Blood Count 4.99 M/mm3 (4.20-5.40); Red Cell Distribution Width 14.7 % (11.5-17.5); White Blood Count 10.6 K/mm3 (4.8-10.8)
[2021-12-17 17:17] LABS: Anion Gap 11.8 mEq/L (5-15); Blood Urea Nitrogen 11 mg/dl (7-17); Calcium 8.7 mg/dl (8.4-10.2); Carbon Dioxide 24 mmol/L (22.0-30.0); Chloride 108 mmol/L (98-107); Estimated Glomerular Filt Rate 113 ml/min (>60); GFR (African American) 137 ML/MIN (>60); Glucose 97 mg/dl (74-100); Potassium 3.8 mmoL/L (3.5-5.1); Sodium 140 mmol/L (136-145)
[2021-12-17 18:25] LABS: Anisocytosis 1+; Hypochromasia 1+; Lymphocytes % 13 % (10-50); Monocytes % 7 % (2-9); Neutrophils % 80 % (42-76); Platelet Estimate Normal; Total Cells Counted 100
== END ==
PROVIDERS: Visit Provider Urology
DX: Z01.812 Encounter for preprocedural laboratory examination (principal); Z11.52 Encounter for screening for COVID-19; N20.0 Calculus of kidney
CPT/HCPCS: 36415; 80048; 85007; 85014; 85018; 85048; 85049; C9803; U0003; U0005

== ENCOUNTER 2021-12-17 16:08 | Emergency (ER) | payer OTHER, SELFPAY ==
[2021-12-17 16:20] VITALS: BP 141/92; PULSE 91; RESP 18; TEMP 36.8; O2SAT 98; BMI 48.1
--- NOTE | 2021-12-17 16:57 | HMH.EDUTC ---
[facility] Clinical Impression: Dental abscess Disposition: Home, Self-Care Condition on Discharge: Good Instructions: Clindamycin, Tooth Abscess Additional Instructions: Take medication as prescribed Warm compresses to the area may help with pain and swelling Follow up with your Family Doctor if no improvement or any worsening of symptoms Follow up with Dentist for further evaluation and treatment REturn if needed Straight to ER if any life threatening symptoms Prescriptions: clindamycin HCL [Clindamycin HCl] 300 mg PO Q8H 7 Days #21 cap Transmission Status: Pending to [facility] Referrals: Landy Carroll [Primary Care Provider] - As needed Florian Messina [Referring] - Time of Disposition: 17:14 Medical Decision Making - Olu Inquiry Pt receiving controlled substance: No Olu was queried for this patient: No Vital Signs: 12/17/21 16:20 Temperature 98.3 F Temperature Source Oral Pulse Rate [Right Brachial] 91 H Respiratory Rate 18 Blood Pressure [Right Arm] 141/92 H Blood Pressure Mean [Right Arm] 108 Blood Pressure Source [Right Arm] Automatic Cuff Blood Pressure Position [Right Arm] Sitting 02 Sat by Pulse Oximetry 98 Oxygen Delivery Method Room Air Medical Decision Narrative: swelling in lower jaw area appears like that seen with Dental abscess instead of reaction no rash no itching no skin issues states that she woke up with pain in the jaw and swelling Patient states that she has taken Clindamycin in the past without reactions or complications [facility] [place] - General Stated complaint: allergic reaction Time Seen by Provider: 12/17/21 16:58 Mode of Arrival: Ambulatory Source of Information: Patient Limitations: No Limitations Description of Symptoms (Recalled from Triage Doc. by RN): PATIENT C/O SWELLING TO SIDE OF FACE AND UNDER NOSE. HER LIPS WERE SWOLLEN THIS AM. SHE BELIEVES IT IS A POSSIBLE ALLERGIC REACTION TO AN IBUPROFEN THAT SHE TOOK YESTERDAY AROUND 1700. HEENT Symptoms (Recalled from RN notes): Yes Resp Symptoms (Recalled from RN notes): No Skin Symptoms (Recalled from RN notes): No MS Symptoms (Recalled from RN notes): No Functional Status (Recalled from RN notes): WNL - History of Present Illness Provider Complaint: Patient states that she took an ibuprofen yesterday and when she woke up this morning she had swelling in her left lower jaw area States that she thought she may have been having an allergic reaction to it so she took benadryl but still having swelling and hard knot in her left lower jaw so she came in - Related Data Home Medications Medication Instructions Recorded Confirmed paroxetine HCl 40 mg tablet 60 mg PO DAILY 10/21/17 12/17/21 Tizanidine HCl [Zanaflex 4mg 6 mg PO TIDP PRN 03/15/18 12/17/21 tab] Losartan Potassium [Cozaar 50mg 50 mg PO DAILY 02/03/21 12/17/21 Tablets] Pregabalin [Lyrica 100mg Cap] 150 mg PO BID 04/30/21 12/17/21 Tamsulosin HCl [Flomax 0.4mg 0.4 mg PO HS 12/17/21 12/17/21 capsule] Previous Rx's Medication Instructions Recorded Promethazine HCl [Phenergan 25mg 25 mg PO Q6HP PRN #10 tab 11/16/21 tab] clindamycin HCL [Clindamycin HCl] 300 mg PO Q8H 7 Days #21 cap 12/17/21 Allergies Allergy/AdvReac Type Severity Reaction Status Date / Time Penicillins Allergy Severe Hives Verified 12/17/21 14:03 gatifloxacin [From TEQUIN] Allergy Mild Verified 12/17/21 14:03 ketorolac [From TORADOL] Allergy Mild Verified 12/17/21 14:03 aztreonam [AZTREONAM] Allergy Unknown NA-NAUSEA/V Verified 12/17/21 14:03 OMITING cefaclor [CEFACLOR] Allergy Unknown Verified 12/17/21 14:03 codeine [CODEINE] Allergy Unknown BLEEDING Verified 12/17/21 14:03 OF EYES AND NOSE doxycycline [DOXYCYCLINE] Allergy Unknown Verified 12/17/21 14:03 midazolam [From VERSED] Allergy Unknown Verified 12/17/21 14:03 ondansetron Allergy Unknown Verified 12/17/21 14:03 [From ZOFRAN ( HYDROCHLORIDE)] sulfamethoxazole
[2021-12-17 17:21] VITALS: BP 141/92; PULSE 91; RESP 18; TEMP 36.8; O2SAT 98
== END 2021-12-17 17:24 | disposition home or self-care (01) ==
PROVIDERS: Emergency Provider Nurse Practitioner; PCP Internal Medicine
DX: R68.84 Jaw pain (principal); M27.2 Inflammatory conditions of jaws; I10 Essential (primary) hypertension; K21.9 Gastro-esophageal reflux disease without esophagitis; E78.5 Hyperlipidemia, unspecified; K57.92 Diverticulitis of intestine, part unspecified, without perforation or abscess without bleeding; K85.90 Acute pancreatitis without necrosis or infection, unspecified; M79.7 Fibromyalgia; G43.909 Migraine, unspecified, not intractable, without status migrainosus; J45.909 Unspecified asthma, uncomplicated; F43.10 Post-traumatic stress disorder, unspecified; F32.A Depression, unspecified; F41.9 Anxiety disorder, unspecified; F17.290 Nicotine dependence, other tobacco product, uncomplicated; Z79.899 Other long term (current) drug therapy; Z88.0 Allergy status to penicillin; Z88.2 Allergy status to sulfonamides; Z88.5 Allergy status to narcotic agent; Z88.6 Allergy status to analgesic agent; Z88.8 Allergy status to other drugs, medicaments and biological substances; Z87.442 Personal history of urinary calculi
CPT/HCPCS: 99213; G0463

== ENCOUNTER 2021-12-19 09:01 | Day surgery (SDC) | payer OTHER, SELFPAY ==
[2021-12-17 13:58] VITALS: BMI 48.1
--- NOTE | 2021-12-19 09:15 | XR_ITS ---
FINAL REPORT CLINICAL HISTORY: KIDNEY STONE FINDINGS: A single view of the abdomen was obtained. There is a nonobstructive bowel gas pattern. There are no abnormally dilated loops of small bowel. There is a moderate amount of retained stool. There is a 7 mm stone in the lower pole of the right kidney. There are postoperative changes in the right upper quadrant. IMPRESSION: 7 mm stone in the lower pole of the right kidney. Reviewed, Interpreted and Dictated by Nicholas Escobedo III, MD Transcribed by Lyric Messer Authenticated by Nicholas Escobedo III, MD on 12/19/2021 10:37:52 AM [facility]
[2021-12-19 09:48] VITALS: BP 154/102; PULSE 80; RESP 18; TEMP 36.1; O2SAT 98
--- NOTE | 2021-12-19 12:25 | SUR.PREOP ---
Pt. case cancelled per Dr. Acosta due to inability to gain IV access. Multiple attempts were made by Otoniel Mancuso CRNA, Bahman Gilliam CRNA, Otoniel Colon RN, Kassandra Llanes RN, Sarthak Ramos RN, and Tracie Garg RN without success. Per Dr. Acosta pt to be referred to general surgery for possible port placement due to this being an ongoing issue. Pt. denies any questions or concerns at this time.
== END 2021-12-19 12:10 | disposition home or self-care (01) ==
LOC: OR 09:03
PROVIDERS: PCP Internal Medicine; Visit Provider Urology
PROC: (CPT 50590; principal; 2021-12-19 11:30)
DX: Z53.9 Procedure and treatment not carried out, unspecified reason (principal); N20.0 Calculus of kidney
CPT/HCPCS: 50590; 74018

== ENCOUNTER 2021-12-20 17:47 | Emergency (ER) | payer OTHER, SELFPAY ==
[2021-12-20 17:48] VITALS: BP 189/98; PULSE 101; RESP 16; TEMP 36.9; O2SAT 100; BMI 47.5
--- NOTE | 2021-12-20 18:10 | HMH.EDBACK ---
ED Disposition Clinical Impression: Sciatica Qualifiers: Laterality: right Qualified Code(s): M54.31 - Sciatica, right side Disposition: Home, Self-Care Condition on Discharge: Fair Instructions: DI for Low Back Pain, DI for Back Pain With Sciatica Additional Instructions: Follow-up with your primary care physician and urologist as scheduled and needed. Return to the emergency department if symptoms worsen in any way. Referrals: Landy Carroll [Primary Care Provider] - Time of Disposition: 19:11 - Critical Care Critical Care Time: No Attestation: On , the high probability of a clinically significant, sudden or life threatening deterioration of the following system(s) required my full and direct attention, intervention and personal management. The time I documented below is in addition to time spent performing reported procedures but includes the following listed in this critical care notation. Medical Decision Making - Olu Inquiry Pt receiving controlled substance: No Vital Signs: 12/20/21 17:48 12/20/21 18:31 Temperature 98.5 F Temperature Source Oral Pulse Rate 95 H Pulse Rate [Right] 101 H Respiratory Rate 16 18 Blood Pressure 182/106 H Blood Pressure [Right Arm] 189/98 H Blood Pressure Mean 126 Blood Pressure Mean [Right Arm] 128 Blood Pressure Source [Right Arm] Automatic Cuff Blood Pressure Position [Right Arm] Sitting 02 Sat by Pulse Oximetry 100 97 Oxygen Delivery Method Room Air Orders (Tests/Meds): ED MEDICATIONS Discontinued Medications Generic Name Dose Route Start Last Admin Trade Name Freq PRN Reason Stop Dose Admin Orphenadrine Citrate 60 mg 12/20/21 18:13 12/20/21 18:21 Orphenadrine Citrate 60mg/2ml Vial IM 12/20/21 18:14 60 mg ONCE ONE Administration Medical Decision Narrative: The patient's history and physical exam are consistent with sciatica. She does have known kidney stones. However there is no evidence of infected kidney stone. The patient is allergic to numerous nonaddictive pain medications. She was given Norflex intramuscularly which helped her symptoms some. I do not believe that the patient's symptoms warrant narcotic pain medications. Patient will be discharged home with instructions to take her usual pain medications and muscle relaxers. Back Pain HPI - General Chief Complaint: Back Pain/Injury Stated Complaint: back injury no ao Time Seen by Provider: 12/20/21 18:10 Mode of Arrival: Ambulatory Limitations: No Limitations Description of Symptoms (Recalled from ER Triage Doc. by RN): pt c/o lower back pain. Advises it feels like a pulled muscle and has been bothering her for 3 days - History of Present Illness HPI Narrative: The patient complains of right-sided low back pain radiating down to her posterior thigh. She states this is different from kidney stone pain. She took some muscle relaxers which helped the symptoms some. MD Complaint: back pain - Related Data Home Medications Medication Instructions Recorded Confirmed paroxetine HCl 40 mg tablet 60 mg PO DAILY 10/21/17 12/19/21 Tizanidine HCl [Zanaflex 4mg 6 mg PO TIDP PRN 03/15/18 12/19/21 tab] Losartan Potassium [Cozaar 50mg 50 mg PO DAILY 02/03/21 12/19/21 Tablets] Pregabalin [Lyrica 100mg Cap] 150 mg PO BID 04/30/21 12/19/21 Tamsulosin HCl [Flomax 0.4mg 0.4 mg PO HS 12/17/21 12/19/21 capsule] clindamycin HCL [Clindamycin HCl] 300 mg PO Q8H 12/19/21 12/19/21 Previous Rx's Medication Instructions Recorded Promethazine HCl [Phenergan 25mg 25 mg PO Q6HP PRN #10 tab 11/16/21 tab] Allergies Allergy/AdvReac Type Severity Reaction Status Date / Time Penicillins Allergy Severe Hives Verified 12/19/21 09:46 gatifloxacin [From TEQUIN] Allergy Mild Verified 12/19/21 09:46 ketorolac [From TORADOL] Allergy Mild Verified 12/19/21 09:46 aztreonam [AZTREONAM] Allergy Unknown NA-NAUSEA/V Verified 12/19/21 09:46 OMITING cefaclor [
[2021-12-20 18:31] VITALS: BP 182/106; PULSE 95; RESP 18; O2SAT 97
[2021-12-20 19:01] VITALS: BP 178/115; PULSE 91; O2SAT 97
[2021-12-20 19:17] VITALS: BP 178/115; PULSE 91; RESP 20; TEMP 36.9; O2SAT 97
== END 2021-12-20 19:18 | disposition home or self-care (01) ==
PROVIDERS: Emergency Provider Emergency Medicine; PCP Internal Medicine
DX: M54.31 Sciatica, right side (principal); I10 Essential (primary) hypertension; K21.9 Gastro-esophageal reflux disease without esophagitis; E78.5 Hyperlipidemia, unspecified; M79.7 Fibromyalgia; N20.0 Calculus of kidney; K85.90 Acute pancreatitis without necrosis or infection, unspecified; K57.90 Diverticulosis of intestine, part unspecified, without perforation or abscess without bleeding; G43.909 Migraine, unspecified, not intractable, without status migrainosus; J45.909 Unspecified asthma, uncomplicated; F43.10 Post-traumatic stress disorder, unspecified; F32.A Depression, unspecified; F41.9 Anxiety disorder, unspecified; F17.290 Nicotine dependence, other tobacco product, uncomplicated; Z88.0 Allergy status to penicillin; Z88.2 Allergy status to sulfonamides; Z88.6 Allergy status to analgesic agent; Z88.8 Allergy status to other drugs, medicaments and biological substances
CPT/HCPCS: 96372; 99283

== ENCOUNTER → 2022-01-08 09:44 | Outpatient (CLI) | payer OTHER, SELFPAY ==
[2022-01-08 11:26] LABS: Anion Gap 12.3 mEq/L (5-15); Blood Urea Nitrogen 16 mg/dl (7-17); Calcium 9.2 mg/dl (8.4-10.2); Carbon Dioxide 29 mmol/L (22.0-30.0); Chloride 103 mmol/L (98-107); Estimated Glomerular Filt Rate 113 ml/min (>60); GFR (African American) 137 ML/MIN (>60); Glucose 100 mg/dl (74-100); Potassium 4.3 mmoL/L (3.5-5.1); Sodium 140 mmol/L (136-145)
== END ==
PROVIDERS: Visit Provider Surgery
DX: Z01.812 Encounter for preprocedural laboratory examination (principal)
CPT/HCPCS: 36415; 80048

== ENCOUNTER 2022-01-09 12:43 | Emergency (ER) | payer OTHER, SELFPAY ==
[2022-01-09] VITALS (8 sets, daily range): BP systolic 131–163; BP diastolic 80–116; PULSE 98–122; RESP 19–22; TEMP 36.9; O2SAT 96–98; BMI 45.7
[2022-01-09 13:11] LABS: Microscopic, Urine URINE MICROSCOPIC (MICROSCOPIC)
--- NOTE | 2022-01-09 13:18 | CT_ITS ---
FINAL REPORT TECHNIQUE: Axial images through the abdomen and pelvis were performed without contrast. This study was performed with techniques to keep radiation doses as low as reasonably achievable, (ALARA). Individualized dose reduction techniques using automated exposure control or adjustment of mA and/or kV according to the patient's size were employed. CLINICAL HISTORY: right flank pain FINDINGS: Abdomen: The lung bases are clear. The liver parenchyma is mildly fatty infiltrated. The gallbladder is absent. The spleen is at the upper limits of normal in size. The pancreas and adrenal glands are unremarkable. There is a large stone in the right UPJ measuring 11 mm. There is moderate right hydronephrosis. Pelvis: The urinary bladder is unremarkable. The appendix is not visualized. There is no pelvic mass or inflammation. IMPRESSION: Obstructing 11 mm right UPJ stone. Reviewed, Interpreted and Dictated by Taqueria Hodge MD Transcribed by Aubrey Dutton Authenticated by Taqueria Hodge MD on 01/09/2022 03:05:12 PM [facility]
[2022-01-09 13:19] LABS: Appearance,Urine SL CLOUDY (Clear); Bilirubin,Urine Negative (Negative); Blood, Urine 3+ (Negative); Color,Urine YELLOW (Yellow); Glucose,Urine (UA) Negative (Negative); Ketones,Urine Negative (Negative); Leukocyte Esterase,Urine 2+ (Negative); Nitrate,Urine Negative (Negative); PH,Urine 6.5 (5.0-8.5); Protein,Urine Negative (Negative); Urobilinogen,Urine 0.2 EU/dl (0.2)
[2022-01-09 13:33] LABS: Bacteria,Urine 1+ /lpf; Mucus,Urine 1+ /lpf; Squamous Epithelial Cell,Urine 20-50 #/hpf (0-5)
[2022-01-09 13:34] LABS: Amorphous Sediment,Urine 1+ /lpf; Renal Epithelial Cells,Urine Occasional #/lpf (0)
--- NOTE | 2022-01-09 14:10 | HMH.EDGENADL ---
ED Disposition Clinical Impression: Kidney stone Disposition: Home, Self-Care Condition on Discharge: Good Instructions: DI for Low Back Pain Additional Instructions: Oxycodone as directed for severe pain. Return to ED with new or concerning symptoms. These may include but are not limited to fevers, vomiting, worsening pain, decreased urine output. Follow-up with your urologist on Wednesday. Continue cefdinir as previously directed. Prescriptions: Oxycodone HCl [Oxycodone 5mg tab (IR)] 5 mg PO Q8 PRN 3 Days #9 tablet PRN Reason: Severe Pain Transmission Status: Sent to [facility] Referrals: Landy Carroll [Primary Care Provider] - - Critical Care Critical Care Time: No Attestation: On 01/09/22, the high probability of a clinically significant, sudden or life threatening deterioration of the following system(s) required my full and direct attention, intervention and personal management. The time I documented below is in addition to time spent performing reported procedures but includes the following listed in this critical care notation. Medical Decision Making - Medical Records Medical records reviewed: Yes: I reviewed the patient's medical records. - Olu Inquiry Pt receiving controlled substance: Yes Olu was queried for this patient: Yes Risks and benefits of using a controlled substance: were discussed with pt by me Vital Signs: 01/09/22 12:59 Temperature 98.5 F Temperature Source Oral Pulse Rate [Radial] 122 H Respiratory Rate 20 Blood Pressure [Right Arm] 163/116 H Blood Pressure Mean [Right Arm] 131 Blood Pressure Position [Right Arm] Sitting 02 Sat by Pulse Oximetry 98 Oxygen Delivery Method Room Air - Lab Data Lab Results 01/09/22 13:00: Urine Color Yellow, Urine Appearance Sl cloudy, Urine pH 6.5, Ur Specific [place] 1.010, Urine Protein Negative, Urine Glucose (UA) Negative, Urine Ketones Negative, Urine Blood 3+, Urine Nitrate Negative, Urine Bilirubin Negative, Urine Urobilinogen 0.2, Ur Leukocyte Esterase 2+ A, Urine RBC 5-10, Urine WBC 10-20, Ur Squamous Epith Cells 20-50, Ur Renal Epithelial Cell Occasional, Amorphous Sediment 1+, Urine Bacteria 1+, Urine Mucus 1+ 01/09/22 15:00: WBC 14.0 H, RBC 5.45 H, Hgb 15.7, Hct 47.6 H, MCV 87.2, MCH 28.8, MCHC 33.1, RDW 14.6, Plt Count 377, MPV 7.8, Neut % (Auto) 87.6 H, Lymph % (Auto) 5.6 L, [place] % (Auto) 3.4, Eos % (Auto) 2.3, Baso % (Auto) 1.1, Neut # (Auto) 12.2 H, Lymph # (Auto) 0.8, [place] # (Auto) 0.5, Eos # (Auto) 0.3, Baso # (Auto) 0.2, Total Counted 100, Neutrophils % (Manual) 82 H, Lymphocytes % (Manual) 13, Monocytes % (Manual) 4, Eosinophils % (Manual) 1, Platelet Estimate Normal, RBC Morphology Normal 01/09/22 15:00: Sodium 139, Potassium 4.7, Chloride 106, Carbon Dioxide 24, Anion Gap 13.7, BUN 22 H D, Creatinine 0.80 D, Estimated Creat Clear 77, Estimated GFR 81, Est GFR ( Amer) 98 D, Glucose 110 H, Calcium 9.1 01/09/22 15:00: Serum HCG, Qual Negative Result diagrams: 01/09/22 15:00 01/09/22 15:00 Orders (Tests/Meds): ED MEDICATIONS Discontinued Medications Generic Name Dose Route Start Last Admin Trade Name Silke PRN Reason Stop Dose Admin Morphine Sulfate 4 mg 01/09/22 13:16 01/09/22 13:22 Morphine 4mg/Ml Syringe IV 01/09/22 13:17 Not Given ONCE ONE Ondansetron HCl 4 mg 01/09/22 13:17 Ondansetron 4mg/2ml Vial IV 02/08/22 13:16 Q6 PRN Nausea And Vomiting Oxycodone HCl 5 mg 01/09/22 13:21 01/09/22 13:30 Oxycodone 5mg Immediate Release Tablet PO 01/09/22 13:22 5 mg Q4HP ONE Administration Oxycodone HCl 5 mg 01/09/22 16:44 01/09/22 16:46 Oxycodone 5mg Immediate Release Tablet PO 01/09/22 16:45 Not Given ONCE ONE ORDERS Category Date Time Status Rapid PCR Covid and Flu A/B Stat Lab 01/09/22 16:06 Received Urine Culture Stat Micro 01/09/22 13:00 Received - CT Data CT Scan: Abdomen Time Received: 16:47 Findings Narrative: FINDINGS:
[2022-01-09 15:12] LABS: Basophils # 0.2 K/mm3 (0-0.2); Basophils % 1.1 % (0.1-2.0); Eosinophils # 0.3 K/mm3 (0.0-0.4); Eosinophils % 2.3 % (0.1-12.0); Hematocrit 47.6 % (37.0-47.0); Hemoglobin 15.7 g/dL (12.2-16.2); Lymphocytes # 0.8 K/mm3 (0.7-4.5); Lymphocytes % 5.6 % (10-50); Mean Corpuscular HGB Conc 33.1 g/dL (31.8-35.4); Mean Corpuscular Hemoglobin 28.8 pg (27.0-31.2); Mean Corpuscular Volume 87.2 fl (81-99); Mean Platelet Volume 7.8 fl (7.4-10.4); Monocytes # 0.5 K/mm3 (0.1-1.0); Monocytes % 3.4 % (1.7-9.3); Neutrophils # 12.2 K/mm3 (1.8-7.8); Neutrophils % 87.6 % (37.0-80.0); Platelet Count 377 K/mm3 (142-424); Red Blood Count 5.45 M/mm3 (4.20-5.40); Red Cell Distribution Width 14.6 % (11.5-17.5)
[2022-01-09 15:14] LABS: MANUAL DIFFERENTIAL MANUAL DIFFERENTIAL (MANUAL DIFF)
[2022-01-09 15:27] LABS: Chloride 106 mmol/L (98-107); Sodium 139 mmol/L (136-145)
[2022-01-09 15:28] LABS: Potassium 4.7 mmoL/L (3.5-5.1)
[2022-01-09 15:31] LABS: Anion Gap 13.7 mEq/L (5-15); Blood Urea Nitrogen 22 mg/dl (7-17); Calcium 9.1 mg/dl (8.4-10.2); Carbon Dioxide 24 mmol/L (22.0-30.0); Creatinine Clearance Estimated 77 mL/min (50-200); Estimated Glomerular Filt Rate 81 ml/min (>60); GFR (African American) 98 ML/MIN (>60); Glucose 110 mg/dl (74-100)
[2022-01-09 15:43] LABS: HCG Qualitative, Serum Negative (Negative)
[2022-01-09 15:46] LABS: Eosinophils % 1 % (0-3); Lymphocytes % 13 % (10-50); Monocytes % 4 % (2-9); Neutrophils % 82 % (42-76); RBC Morphology Normal; Total Cells Counted 100
[2022-01-09 15:47] LABS: Platelet Estimate Normal
--- NOTE | 2022-01-09 16:05 | PC.NURSE ---
[facility] medical records [facility] has been contacted. Will call back
--- NOTE | 2022-01-09 16:14 | PC.NURSE ---
KIP PALOMINO [facility] with [facility]
[2022-01-09 16:17] LABS: Coronavirus 19, PCR Not Detected (NotDetected); Influenza A, PCR Not Detected (NotDetected); Influenza B, PCR Not Detected (NotDetected)
--- NOTE | 2022-01-09 16:36 | PC.NURSE ---
US guided IV started in the left AC with 20G. Able to flush and blood return noted. No pain
== END 2022-01-09 17:38 | disposition home or self-care (01) ==
PROVIDERS: Emergency Provider Emergency Medicine; PCP Internal Medicine
DX: N13.6 Pyonephrosis (principal); N20.1 Calculus of ureter; Z87.442 Personal history of urinary calculi; Z79.899 Other long term (current) drug therapy; Z88.0 Allergy status to penicillin; Z88.1 Allergy status to other antibiotic agents; Z88.6 Allergy status to analgesic agent; Z88.2 Allergy status to sulfonamides; F41.9 Anxiety disorder, unspecified; F32.A Depression, unspecified; J45.909 Unspecified asthma, uncomplicated; K21.9 Gastro-esophageal reflux disease without esophagitis; E78.5 Hyperlipidemia, unspecified; I10 Essential (primary) hypertension; G43.909 Migraine, unspecified, not intractable, without status migrainosus; Z86.14 Personal history of Methicillin resistant Staphylococcus aureus infection
CPT/HCPCS: 36415; 74176; 80048; 81001; 84703; 85007; 85025; 87086; 87088; 87186; 99284; C9803; U0003; U0005

== ENCOUNTER 2022-01-12 07:44 | Day surgery (SDC) | payer OTHER, SELFPAY ==
[2022-01-09 10:38] VITALS: BMI 45.7
[2022-01-12] VITALS (13 sets, daily range): BP systolic 142–195; BP diastolic 77–117; PULSE 61–105; RESP 12–18; TEMP 36.2–36.6; O2SAT 93–100
--- NOTE | 2022-01-12 11:30 | SUR.OPER ---
1113-spoke with Christian[facility], pharmacist verified allergies and that pt could receive Gentamicin used in irrigation during procedure
--- NOTE | 2022-01-12 11:31 | SUR.OPER ---
late entry- notified Md of pt's allergies, ordered for pt to have additional antibiotic of Ancef 2gm ivpb, administered per ANNIE Givens at 1100, see anesthesia record for details, will continue to monitor
--- NOTE | 2022-01-12 11:50 | FL_ITS ---
FINAL REPORT CLINICAL HISTORY: portacath placement on right side- fluoro time 0.59 FINDINGS: FLUOROSCOPY IN THE OR HISTORY: Right port placement. FINDINGS: Fluoroscopic assistance was provided by the radiology department to Dr. Ambrocio. 2 intraoperative spot images were obtained. Images demonstrate a right sided chest port catheter. FLUOROSCOPY TIME: 59 seconds. IMPRESSION: Fluoroscopic assistance provided as detailed above. Please see the report of Dr. Ambrocio for full details of the findings. Reviewed, Interpreted and Dictated by Nicholas Escobedo III, MD Transcribed by Tammie Orellana PA-C Authenticated by Nicholas Escobedo III, MD on 01/14/2022 09:49:14 AM [facility]
--- NOTE | 2022-01-12 11:55 | HMH.OPNOTE ---
Date of procedure: 01/12/22 Pre-op Diagnosis:: Poor venous access Post-op Diagnosis:: Same Procedure performed:: Placement of 8 Thai open-ended venous access device with subcutaneous reservoir port (PowerPort) in right subclavian vein Surgeon:: Nicholas Ambrocio MD WIND OPERATIONS MANAGER:: Shawn Adkins Anesthesia: LMA Estimated blood loss (mL): 20 Operative findings:: Very tenuous left subclavian vein Operative note:: Consent was obtained. Patient was taken to the operating room. She was given preoperative intravenous antibiotics consisting of clindamycin. In the operating room she was positioned in a supine position. General anesthesia was induced via LMA. Upper chest and neck was prepped and draped in the standard surgical fashion. Plan was made for attempt at placement on the left side. She was positioned in Trendelenburg position. Local anesthetic was infiltrated inferior to the left clavicle just medial to the deltopectoral groove. 18-gauge needle was manipulated posterior to the clavicle. There was return of blood but this was proven to be arterial. Needle was removed and pressure was held for several minutes. Attempt was made once again to cannulate the left subclavian vein without success. The SonoSite device was brought onto the field and attempt to locate the left subclavian vein. However this was unsuccessful. Plan was made to turn to placement on the right side. This had already been prepped and draped. Once again 18-gauge needle was inserted medial to the right deltopectoral groove manipulating it posterior to the clavicle. There is good return of venous blood flow. Guidewire was inserted. Intraoperative C arm fluoroscopy was used to confirm appropriate positioning of the guidewire. Subcutaneous tissues were dilated with the dilator and breakaway sheath. Dilator and guidewire were removed. 8 Thai open-ended catheter was threaded through the breakaway sheath. Breakaway sheath was removed. Once again fluoroscopy was used to confirm appropriate positioning. Subcutaneous tunnel and pocket were planned. Small incision was made at the site for subcutaneous pocket. Pocket was created using electrocautery. Catheter was tunneled subcutaneously. Fluoroscopy was used and catheter was manipulated somewhat to place the tip near the atriocaval junction. The catheter was cut to the appropriate length. [place] port was secured. At this point there was concern for field contamination. Therefore the port was removed. Surgical wound was protected and the patient was reprepped and draped and new surgical set was opened. She was given additional alternative antibiotic. Wounds were irrigated with antibiotic infused saline. She was then repositioned in Trendelenburg position. 18-gauge needle was inserted through the previous incision and subclavian vein was cannulated with good return of venous blood flow. Guidewire was inserted. Fluoroscopy was used to confirm appropriate positioning of the guidewire. Subcutaneous tissues were dilated with dilator with breakaway sheath. Guidewire with moved. 8 Thai open-ended catheter was inserted through the sheath under fluoroscopy. The breakaway sheath was then removed. Fluoroscopy was used to confirm appropriate position of the catheter near the atriocaval junction. It was tunneled subcutaneously. Catheter was cut to the appropriate length. It was secured to the implantable reservoir port. The implantable reservoir port was secured into the subcutaneous pocket with several 2-0 PDS sutures. Port flushed and aspirated without difficulty with saline. The port was then flushed with heparinized saline. There was good hemostasis. Additional antibiotic infused irrigation was performed of both incisions. Subdermal tissues reapproximated the running 2-0 Vicryl suture. Skin incisions closed with 4-0 Monocryl subcuticular fashion. Steri-Strips and dressings were applied. Patient tolerated the procedure
--- NOTE | 2022-01-12 11:58 | HMH.ANESCL ---
[facility] Anesthesia Checklist - Structural Data Admitted From: Home Planned Operative Procedure/s: darrion cath insertion Consent for Planned Operative Procedure(s) Verified: Yes - Additional verifications Anesthesia Reactions: Yes (CRYING) Hx Blood Transfusions: No Blood Transfusion Reaction: No - Airway Assessment C-Spine Mobility Assessed: Yes TMJ Mobility Assessed: Yes Dentition: Poor Dentition - Neurological Assessment Level of Consciousness: Awake, Alert, Appropriate - Anesthesia Plan Anesthesia Risk discussed: Yes Anesthesia Plan: Verified ASA Class: III Anesthesia Type: General [facility] History I have reviewed the patient's past medical history: Yes 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: Reports:: Anxiety, Asthma, Depression, Gastroesophageal Reflux Disease(GERD), Hyperlipidemia, Hypertension, Kidney Stones, Migraine, MRSA Denies:: Cancer, Diabetes Mellitus Type 1, Diabetes Mellitus Type 2, Internal Pacemaker, Seizures *Have you ever received a pneumonia vaccine?: Yes *Have you received a flu vaccine this season?: Yes Other 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: Reports: Fibromyalgia, Other. Denies: Blood Transfusion Reaction Anesthesia experience/problems:: none Laterality Cases: Left: Other, Bilateral: Myringotomy (Ear Tubes), Tonsillectomy Other Surgeries: Yes: No Previous Surgery, Cholecystectomy, Colonoscopy, Hernia Repair, Hysterectomy-Total, Ureter Stent, Other. No: Pacemaker Amputation: No Fractures: Yes (Left leg ORIF) - *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 Last grade of school completed: High school graduate Smoking Status: Current every day smoker Tobacco Type: smokeless tobacco # Packs/Day (cigarettes): 1 Alcohol Intake: never Alcohol Intake Frequency:: holidays/special occasions only Substance Use Type: denies use *Occupational Status:: unemployed Housing: house Household Members: none *Travel in the last 8 weeks: None - Psychiatric History Pschychiatric History:: Reports:: Anxiety, Depression, Post Traumatic Stress Disorder Family Hx:: No significant family history
--- NOTE | 2022-01-12 11:59 | P.PN_ITS ---
[facility] Anesthesia Record Part I Intake, IV Amount: 1,500 Estimated blood loss (mL): 0 Urine output (mL): 0 Blood Pressure: 170/100 SaO2: 100 Pulse Rate: 61 Respiratory Rate: 12 Temperature: 97.8 F Patient is:: Awake, Stable Stable to PACU at:: 11:55
--- NOTE | 2022-01-12 12:04 | XR_ITS ---
FINAL REPORT CLINICAL HISTORY: Postop portacath placement COMPARISON: October 25, 2021 FINDINGS: A new right subclavian chest port terminates in the mid SVC. The heart size is normal. The mediastinum is normal. There is no focal infiltrate or edema. There are no pleural effusions. There is no pneumothorax. There is no osseous abnormality. IMPRESSION: Right subclavian chest port terminates in the mid SVC. No pneumothorax. Reviewed, Interpreted and Dictated by Nicholas Escobedo III, MD Transcribed by Aubrey Dutton Authenticated by Nicholas Escobedo III, MD on 01/12/2022 01:00:54 PM [facility]
--- NOTE | 2022-01-12 12:42 | SUR.OPER ---
late entry- 1053-Concern for field contamination and sterility noted at this time per MD. Dr. Ambrocio explanted port and surgical site protected per MD. Counts complete and correct at this time and verified per EVE Leal and ST [facility]. Patient re-prepped and draped, new sterile field opened with new instruments. Pt given additional IV antibiotic and wound irrigated with antibiotic per MD (see eMAR/anesthesia record/operative note for details).
[2022-01-13 09:12] VITALS: BP 142/77; PULSE 96; TEMP 36.5
--- NOTE | 2022-01-13 09:12 | P.PN_ITS ---
[facility] Anesthesia Record Part II Discharge Time: 12:35 Destination: Surgical Day Care (OP Surgery) PACU nurse assessment reviewed?: Yes Patient Condition:: Good Anesthesia Complications:: None Swallowing reflex intact?: Yes Cyanosis?: No Blood Pressure: 142/77 Pulse Rate: 96 Temperature: 97.7 F Mental Status: Alert & Oriented Pain level:: 4 Nausea and/or vomitting:: None Intake, IV Amount: 0
== END 2022-01-12 13:47 | disposition home or self-care (01) ==
LOC: OR 07:45
PROVIDERS: PCP Internal Medicine; Visit Provider Surgery
PROC: (CPT 36561; principal; 2022-01-12 10:15)
DX: I87.2 Venous insufficiency (chronic) (peripheral) (principal); F41.9 Anxiety disorder, unspecified; J45.909 Unspecified asthma, uncomplicated; F32.A Depression, unspecified; K21.9 Gastro-esophageal reflux disease without esophagitis; E78.5 Hyperlipidemia, unspecified; I10 Essential (primary) hypertension; G43.909 Migraine, unspecified, not intractable, without status migrainosus; Z86.14 Personal history of Methicillin resistant Staphylococcus aureus infection; Z87.442 Personal history of urinary calculi; M79.7 Fibromyalgia; Z72.0 Tobacco use
CPT/HCPCS: 36561; 77001; 71045; 76000; 96374; C1788; J1642

== ENCOUNTER → 2022-01-12 15:42 | Outpatient (CLI) | payer OTHER, SELFPAY | PROVIDERS: Visit Provider Urology | DX: Z01.812 Encounter for preprocedural laboratory examination (principal); Z11.52 Encounter for screening for COVID-19; N20.0 Calculus of kidney | CPT/HCPCS: C9803; U0003; U0005 ==

== ENCOUNTER 2022-01-13 08:39 | Day surgery (SDC) | payer OTHER, SELFPAY ==
[2022-01-13] VITALS (10 sets, daily range): BP systolic 150–168; BP diastolic 92–105; PULSE 80–96; RESP 12–18; TEMP 36.4–37; O2SAT 89–97; BMI 45.7
--- NOTE | 2022-01-13 12:43 | XR_ITS ---
FINAL REPORT CLINICAL HISTORY: CYSTO WITH STENT PLACEMENT- [facility] Fluoro time: 0.4min FINDINGS: FLUORO TIME PROCEDURE: Fluoroscopy in the operating room. HISTORY: Cystoscopy with stent placement FINDINGS: Fluoroscopy time was provided by the radiology department for the clinical service. Two films were obtained. Fluoroscopy exposure time: 0.4 minutes IMPRESSION: See above Reviewed, Interpreted and Dictated by Nicholas Escobedo III, MD Transcribed by Lyric Messer Authenticated by Nicholas Escobedo III, MD on 01/13/2022 01:56:20 PM [facility]
--- NOTE | 2022-01-13 12:46 | P.PN_ITS ---
[facility] Anesthesia Record Part I Intake, IV Amount: 500 Estimated blood loss (mL): 0 Urine output (mL): 0 Blood Pressure: 156/92 SaO2: 89 Pulse Rate: 95 Respiratory Rate: 12 Temperature: 97.6 F Patient is:: Awake, Stable Stable to PACU at:: 12:45
--- NOTE | 2022-01-13 12:58 | HMH.OPNOTE ---
Date of procedure: 01/13/22 Pre-op Diagnosis:: 1 cm right UPJ stone Post-op Diagnosis:: Same Procedure performed:: Cystoscopy with stone manipulation and right stent placement Surgeon:: Orlando Acosta MD CAUSTIC ROOM OPERATOR:: Shawn Adkins Anesthesia: LMA Estimated blood loss (mL): 0 Clinical Note:: 36-year-old white female with history of nephrolithiasis. Patient with recent right-sided flank pain and CT scan shows a 1 cm right UPJ stone with obstruction. She presents for urologic management. Operative findings:: Stone at the right UPJ. Stone was manipulated into the renal pelvis and a right stent placed. Operative note:: Patient taken to the operating room after informed consent was obtained. She was placed on the operating table in the supine position and general anesthesia administered. She was then placed into the dorsal lithotomy position and prepped and draped in the standard surgical fashion. A 22 Indian cystoscope passed into the urethra and into the bladder without difficulty. The bladder was examined in a systematic fashion and was normal in appearance. The ureteral orifices in their normal anatomic position. A 5 Indian ureteral catheter passed through the scope and into the right ureteral orifice and up to the level of the stone. Under fluoroscopy the stone was manipulated proximally into the renal pelvis. A guidewire then passed through the ureteral catheter and the ureteral cath removed. A 4.8 x 24 Indian stent was then passed over the guidewire and under fluoroscopy the guidewire was removed. There was a good curl noted proximally and distally. The string was left on for later removal. Urojet placed into the urethra. Patient tolerated procedure well. Condition: stable Disposition: PACU Specimens:: None Complications:: None
== END 2022-01-13 13:56 | disposition home or self-care (01) ==
LOC: OR 08:40
PROVIDERS: PCP Internal Medicine; Visit Provider Urology
PROC: (CPT 52330; principal; 2022-01-13 11:45)
DX: N20.1 Calculus of ureter (principal); F41.9 Anxiety disorder, unspecified; J45.909 Unspecified asthma, uncomplicated; F32.A Depression, unspecified; K21.9 Gastro-esophageal reflux disease without esophagitis; E78.5 Hyperlipidemia, unspecified; I10 Essential (primary) hypertension; G43.909 Migraine, unspecified, not intractable, without status migrainosus
CPT/HCPCS: 52330; 74018; 76000; C2617

== ENCOUNTER 2022-01-14 00:10 | Observation (INO) | payer OTHER, SELFPAY ==
[2022-01-14 00:11] VITALS: BP 192/100; PULSE 110; RESP 21; TEMP 36.7; O2SAT 96; BMI 47.9
--- NOTE | 2022-01-14 00:18 | XR_ITS ---
PROCEDURE INFORMATION: Exam: XR Abdomen Exam date and time: 01/14/2022 12:57 AM Age: 36 years old Clinical indication: Abdominal pain; Localized; Right; Prior surgery; Surgery date: Post-operative (0-2 days); Surgery type: Stent placed 01/13/22; Additional info: Flank pain TECHNIQUE: Imaging protocol: XR of the abdomen. Views: Frontal supine view of the abdomen. 1 View. COMPARISON: SD XR KUB 01/13/2022 12:43 PM FINDINGS: Tubes, catheters and devices: Right-sided ureteral stent. Gastrointestinal tract: Nonspecific bowel gas pattern. Organs: 0.5 cm area of high attenuation adjacent to proximal right ureter, nonspecific. Cholecystectomy. Bones/joints: Unremarkable. IMPRESSION: 1. Right-sided ureteral stent. 2. Nonspecific bowel gas pattern. 3. 0.5 cm area of high attenuation adjacent to proximal right ureter, nonspecific. Consider correlation with CT
--- NOTE | 2022-01-14 00:18 | HMH.EDGENADL ---
ED Disposition Clinical Impression: Status post cystoscopy with ureteral stent placement, Right flank pain Disposition: Admitted as Observation Condition on Discharge: Fair Time of Disposition: 03:47 - Critical Care Critical Care Time: No Attestation: On , the high probability of a clinically significant, sudden or life threatening deterioration of the following system(s) required my full and direct attention, intervention and personal management. The time I documented below is in addition to time spent performing reported procedures but includes the following listed in this critical care notation. Medical Decision Making - Medical Records Medical records reviewed: Yes: I reviewed the patient's medical records. - Olu Inquiry Pt receiving controlled substance: No Vital Signs: 01/14/22 00:11 Temperature 98.1 F Temperature Source Oral Pulse Rate [Right] 110 H Respiratory Rate 21 Blood Pressure [Right Arm] 192/100 H Blood Pressure Mean [Right Arm] 130 Blood Pressure Source [Right Arm] Manual Cuff/ Auscultation 02 Sat by Pulse Oximetry 96 Oxygen Delivery Method Room Air - Lab Data Lab Results 01/14/22 01:05: Urine Color Dk yellow, Urine Appearance Clear, Urine pH 7.0, Ur Specific [place] 1.025, Urine Protein 2+, Urine Glucose (UA) Negative, Urine Ketones Negative, Urine Blood 3+, Urine Nitrate Negative, Urine Bilirubin Negative, Urine Urobilinogen 0.2, Ur Leukocyte Esterase 1+ A, Urine RBC Tntc, Urine WBC 5-10, Ur Squamous Epith Cells Occasional, Amorphous Sediment 1+, Urine Bacteria 2+, Urine Mucus 1+ 01/14/22 02:23: WBC 17.3 H, RBC 4.90, Hgb 14.0, Hct 43.2, MCV 88.2, MCH 28.6, MCHC 32.4, RDW 14.7, Plt Count 469 H, MPV 7.8, Neut % (Auto) 85.0 H, Lymph % (Auto) 8.7 L, [place] % (Auto) 4.8, Eos % (Auto) 0.2, Baso % (Auto) 1.4, Neut # (Auto) 14.7 H, Lymph # (Auto) 1.5, [place] # (Auto) 0.8, Eos # (Auto) 0.0, Baso # (Auto) 0.2, Total Counted 100, Neutrophils % (Manual) 88 H, Lymphocytes % (Manual) 12, Platelet Estimate Normal, RBC Morphology Normal 01/14/22 02:23: Sodium 142, Potassium 4.1, Chloride 107, Carbon Dioxide 29, Anion Gap 10.1, BUN 20 H, Creatinine 1.00, Estimated Creat Clear 62, Estimated GFR 63, Est GFR ( Amer) 76, Glucose 141 H, Calcium 8.4, Total Bilirubin 0.4, AST 27, ALT 38, Alkaline Phosphatase 81, Total Protein 7.1, Albumin 3.8, Globulin 3.3 H, Albumin/Globulin Ratio 1.2 Result diagrams: 01/14/22 02:23 01/14/22 02:23 Orders (Tests/Meds): ED MEDICATIONS Discontinued Medications Generic Name Dose Route Start Last Admin Trade Name Freq PRN Reason Stop Dose Admin Iopamidol 75 ml 01/14/22 03:08 01/14/22 03:10 Iopamidol-370 (76%);100ml Bottle IV 01/14/22 03:09 75 ml ONCE ONE Administration Morphine Sulfate 4 mg 01/14/22 00:16 01/14/22 02:27 Morphine 4mg/Ml Syringe IV 01/14/22 00:17 4 mg ONCE ONE Administration Ondansetron HCl 4 mg 01/14/22 00:17 01/14/22 02:27 Ondansetron 4mg/2ml Vial IV 01/14/22 00:18 Not Given ONCE ONE Sodium Chloride 10 ml 01/14/22 03:08 01/14/22 03:10 Sodium Chloride 0.9% 10ml Syr (Rad Only) IV 01/14/22 03:09 10 ml ONCE ONE Administration ORDERS Category Date Time Status Rapid PCR Covid and Flu A/B Stat Lab 01/14/22 04:37 Ordered Urine Culture Stat Micro 01/14/22 01:05 Received Medical Decision Narrative: In summary this is a 36-year-old female with history nephrolithiasis presenting to the emergency department with right flank pain. Patient clinically stable on arrival. Hypertensive. Other vital signs within normal limits. Will obtain CBC, CMP, urinalysis, KUB. Patient given 4 mg morphine and 4 mg Zofran. Laboratory results are remarkable for leukocytosis of 17,000. This is possibly due to procedure earlier today. Other laboratory results reassuring. Urinalysis shows too numerous to count red blood cells. Few leuk esterase. KUB shows utero stent on the right. There is also an area of abnormal
[2022-01-14 01:10] LABS: Microscopic, Urine URINE MICROSCOPIC (MICROSCOPIC)
[2022-01-14 01:11] LABS: Appearance,Urine CLEAR (Clear); Bilirubin,Urine Negative (Negative); Blood, Urine 3+ (Negative); Color,Urine DK YELLOW (Yellow); Glucose,Urine (UA) Negative (Negative); Ketones,Urine Negative (Negative); Leukocyte Esterase,Urine 1+ (Negative); Nitrate,Urine Negative (Negative); Protein,Urine 2+ (Negative); Specific Gravity, Urine 1.025 (1.005-1.030); Urobilinogen,Urine 0.2 EU/dl (0.2)
[2022-01-14 01:26] LABS: Amorphous Sediment,Urine 1+ /lpf; Bacteria,Urine 2+ /lpf; Mucus,Urine 1+ /lpf; RBC,Urine TNTC #/hpf (0-3); Squamous Epithelial Cell,Urine Occasional #/hpf (0-5)
[2022-01-14 02:31] LABS: Hematocrit 43.2 % (37.0-47.0); Mean Corpuscular HGB Conc 32.4 g/dL (31.8-35.4); Mean Corpuscular Hemoglobin 28.6 pg (27.0-31.2); Mean Corpuscular Volume 88.2 fl (81-99); White Blood Count 17.3 K/mm3 (4.8-10.8)
[2022-01-14 02:32] LABS: Basophils # 0.2 K/mm3 (0-0.2); Basophils % 1.4 % (0.1-2.0); Eosinophils % 0.2 % (0.1-12.0); Lymphocytes # 1.5 K/mm3 (0.7-4.5); Lymphocytes % 8.7 % (10-50); Mean Platelet Volume 7.8 fl (7.4-10.4); Monocytes # 0.8 K/mm3 (0.1-1.0); Monocytes % 4.8 % (1.7-9.3); Neutrophils # 14.7 K/mm3 (1.8-7.8); Platelet Count 469 K/mm3 (142-424); Red Cell Distribution Width 14.7 % (11.5-17.5)
[2022-01-14 02:35] LABS: MANUAL DIFFERENTIAL MANUAL DIFFERENTIAL (MANUAL DIFF)
[2022-01-14 02:36] LABS: Chloride 107 mmol/L (98-107); Potassium 4.1 mmoL/L (3.5-5.1); Sodium 142 mmol/L (136-145)
[2022-01-14 02:39] LABS: Alanine Aminotransferase 38 U/L (12-78); Albumin Level 3.8 g/dl (3.5-5.0); Albumin/Globulin Ratio 1.2 (1.1-1.8); Alkaline Phosphatase 81 U/L (38-126); Anion Gap 10.1 mEq/L (5-15); Aspartate Amino Transferase 27 U/L (14-36); Bilirubin,Total 0.4 mg/dl (0.2-1.3); Blood Urea Nitrogen 20 mg/dl (7-17); Carbon Dioxide 29 mmol/L (22.0-30.0); Creatinine Clearance Estimated 62 mL/min (50-200); Estimated Glomerular Filt Rate 63 ml/min (>60); GFR (African American) 76 ML/MIN (>60); Globulin 3.3 g/dL (1.3-3.2); Total Protein,Serum 7.1 g/dl (6.3-8.2)
[2022-01-14 02:40] LABS: Calcium 8.4 mg/dl (8.4-10.2); Glucose 141 mg/dl (74-100)
--- NOTE | 2022-01-14 02:47 | CT_ITS ---
PROCEDURE INFORMATION: Exam: CT Abdomen And Pelvis With Contrast Exam date and time: 01/14/2022 2:58 AM Age: 36 years old Clinical indication: Abdominal pain; Localized; Right; Prior surgery; Surgery date: Post-operative (0-2 days); Surgery type: Cystoscopy with stent placement 01/13/22; Additional info: Flank pain, cystoscopy today TECHNIQUE: Imaging protocol: Computed tomography of the abdomen and pelvis with contrast. Radiation optimization: All CT scans at this facility use at least one of these dose optimization techniques: automated exposure control; mA and/or kV adjustment per patient size (includes targeted exams where dose is matched to clinical indication); or iterative reconstruction. Contrast material: ISOVUE; Contrast volume: 75 ml; Contrast route: IV; COMPARISON: CT ABDOMEN PELVIS WO CON 01/09/2022 2:10 PM FINDINGS: Lungs: Bibasilar probable atelectasis or scarring. Liver: Hepatic steatosis. Gallbladder and bile ducts: Cholecystectomy. Pancreas: No ductal dilation. No peripancreatic inflammatory changes. Spleen: Unremarkable. Adrenal glands: No mass. Kidneys and ureters: No hydronephrosis on the left. Mild right-sided hydroureteronephrosis. Significant periureteral stranding on the right, nonspecific, possibly infectious or inflammatory or possibly related to ureteral rupture. 1.0 cm calculus at the ureteropelvic junction. Delayed excretion of the contrast from right kidney. Stomach and bowel: Colonic diverticulosis without evidence of acute diverticulitis. Appendix: Unremarkable appendix. Intraperitoneal space: No free air. No ascites. Vasculature: No abdominal aortic aneurysm. Lymph nodes: No enlarged lymph nodes. Urinary bladder: Small amount of air in the urinary bladder, probably related to instrumentation or infection from gas producing organism. Reproductive: Hysterectomy. Bones/joints: No suspicious osseous lesion. No acute fracture. Scattered degenerative changes. Soft tissues: Small fat containing umbilical hernia. IMPRESSION: 1. Mild right-sided hydroureteronephrosis. Significant periureteral stranding on the right, nonspecific, possibly infectious or inflammatory or possibly related to ureteral rupture. 1.0 cm calculus at the ureteropelvic junction on the right. 2. Small amount of air in the urinary bladder, probably related to instrumentation or infection from gas producing organism.
[2022-01-14 03:42] LABS: Lymphocytes % 12 % (10-50); Neutrophils % 88 % (42-76); Platelet Estimate Normal; RBC Morphology Normal; Total Cells Counted 100
--- NOTE | 2022-01-14 03:45 | PC.NURSE ---
Paged Dr. Acosta.
--- NOTE | 2022-01-14 03:58 | PC.NURSE ---
Dr. Conn s/w Dr. Acosta.
--- NOTE | 2022-01-14 04:36 | PC.NURSE ---
Dr. Conn s/w Dr. Wilcox, agrees with admission. House notified for bed assignment.
[2022-01-14 04:49] LABS: Coronavirus 19, PCR Not Detected (NotDetected); Influenza A, PCR Not Detected (NotDetected); Influenza B, PCR Not Detected (NotDetected)
[2022-01-14 05:05] VITALS: BP 182/98; PULSE 99; RESP 16; TEMP 36.8; O2SAT 97
--- NOTE | 2022-01-14 05:25 | PC.NURSE ---
PT ARRIVED TO FLOOR VIA W/C FROM ED W/STAFF @ [id number]
[2022-01-14 05:34] VITALS: BP 186/85; PULSE 80; RESP 20; TEMP 36.7; O2SAT 91
[2022-01-14 05:35] VITALS: BMI 48.0
--- NOTE | 2022-01-14 07:08 | P.CONPHA_ITS ---
[facility] Pharmacy VTE Monitoring - Patient Demographics Admission date: 01/14/22 Report Date: 01/14/22 Time: 07:08 Allergies/Adverse Reactions: Patient Allergies Penicillins Allergy (Severe, Verified 01/12/22 08:01) Hives gatifloxacin [From TEQUIN] Allergy (Mild, Verified 01/12/22 08:01) ketorolac [From TORADOL] Allergy (Mild, Verified 01/12/22 08:01) aztreonam [AZTREONAM] Allergy (Unknown, Verified 01/12/22 08:01) NA-NAUSEA/VOMITING cefaclor [CEFACLOR] Allergy (Unknown, Verified 01/12/22 08:01) codeine [CODEINE] Allergy (Unknown, Verified 01/12/22 08:01) BLEEDING OF EYES AND NOSE doxycycline [DOXYCYCLINE] Allergy (Unknown, Verified 01/12/22 08:01) midazolam [From VERSED] Allergy (Unknown, Verified 01/12/22 08:01) ondansetron [From ZOFRAN ( HYDROCHLORIDE)] Allergy (Unknown, Verified 01/12/22 08:01) sulfamethoxazole [From BACTRIM] Allergy (Unknown, Verified 01/12/22 08:01) trimethoprim [From BACTRIM] Allergy (Unknown, Verified 01/12/22 08:01) ibuprofen Allergy (Verified 01/12/22 08:01) tramadol Allergy (Verified 01/12/22 08:01) Height: 1.57 m Weight: 118.473 kg Patient Problems: Current Active Problems Abdominal pain (Acute) Right flank pain (Acute) Status post cystoscopy with ureteral stent placement (Acute) - VTE Risk Labs: VTE Related Lab Results Hgb 14.0 g/dL (12.2-16.2) 01/14/22 02:23 Hct 43.2 % (37.0-47.0) 01/14/22 02:23 Plt Count 469 K/mm3 (142-424) H 01/14/22 02:23 BUN 20 mg/dl (7-17) H 01/14/22 02:23 Creatinine 1.00 mg/dl (0.52-1.04) 01/14/22 02:23 Estimated Creat Clear 62 mL/min (50-200) 01/14/22 02:23 - Prophylaxis VTE Prophylaxis Ordered?: Yes Types of VTE Prophylaxis: TEDS Knee High Location of Applied Device: Bilateral Lower Extremeties
--- NOTE | 2022-01-14 07:15 | P.PN_ITS ---
[facility] Anesthesia Record Part II Discharge Time: 13:25 Destination: Surgical Day Care (OP Surgery) PACU nurse assessment reviewed?: Yes Patient Condition:: Good Anesthesia Complications:: None Swallowing reflex intact?: Yes Cyanosis?: No Blood Pressure: 166/105 Pulse Rate: 87 Temperature: 97.5 F Mental Status: Alert & Oriented Pain level:: 6 Nausea and/or vomitting:: None Intake, IV Amount: 0
[2022-01-14 07:16] VITALS: BP 166/105; PULSE 87; TEMP 36.4
--- NOTE | 2022-01-14 07:24 | HMH.PHAINT ---
MEDICATION RECONCILIATION COMPLETED ON PATIENT USING EXTERNAL FILL HISTORY FROM PHARMACY AND LIST FROM SURGERY VISIT ON 01/08/22. -RAY BAKERD
[2022-01-14 08:00] VITALS: BP 162/108; PULSE 85; RESP 16; TEMP 36.6; O2SAT 95
[2022-01-14 09:36] LABS: Basophils # 0.4 K/mm3 (0-0.2); Basophils % 2.1 % (0.1-2.0); Eosinophils # 0.2 K/mm3 (0.0-0.4); Hematocrit 41.8 % (37.0-47.0); Hemoglobin 13.9 g/dL (12.2-16.2); Lymphocytes # 2.3 K/mm3 (0.7-4.5); Lymphocytes % 13.8 % (10-50); Mean Corpuscular HGB Conc 33.2 g/dL (31.8-35.4); Mean Corpuscular Hemoglobin 29.4 pg (27.0-31.2); Mean Corpuscular Volume 88.6 fl (81-99); Mean Platelet Volume 7.8 fl (7.4-10.4); Monocytes # 0.8 K/mm3 (0.1-1.0); Monocytes % 4.8 % (1.7-9.3); Neutrophils # 13.2 K/mm3 (1.8-7.8); Neutrophils % 78.5 % (37.0-80.0); Platelet Count 450 K/mm3 (142-424); Red Blood Count 4.71 M/mm3 (4.20-5.40); Red Cell Distribution Width 14.7 % (11.5-17.5); White Blood Count 16.8 K/mm3 (4.8-10.8)
[2022-01-14 09:40] LABS: Chloride 108 mmol/L (98-107); Sodium 141 mmol/L (136-145)
[2022-01-14 09:41] LABS: Potassium 3.3 mmoL/L (3.5-5.1)
[2022-01-14 09:43] LABS: Blood Urea Nitrogen 19 mg/dl (7-17); Creatinine Clearance Estimated 73 mL/min (50-200); Estimated Glomerular Filt Rate 81 ml/min (>60); GFR (African American) 98 ML/MIN (>60)
[2022-01-14 09:44] LABS: Anion Gap 11.3 mEq/L (5-15); Calcium 8.1 mg/dl (8.4-10.2); Carbon Dioxide 25 mmol/L (22.0-30.0); Glucose 118 mg/dl (74-100)
--- NOTE | 2022-01-14 10:59 | PC.NURSE ---
spoke to nanda beckett about patient complaints of itching. stated she felt the itching was due to the tape on her skin and was requesting benadryl. one time dose 12.5mg benadryl po ordered
--- NOTE | 2022-01-14 11:55 | HMH.HPDC ---
General - General Admission date:: 01/14/22 Discharge date: 01/14/22 *Admission Date: 01/14/22 *Chief complaint: pain *History of present illness: 36-year-old female presented to the emergency department with rt flank pain that started after dinner. Pt states sharp, intense, stabbing. States she tried taking 2 hydrocodone without relief. Pain does not radiate. No associated nausea, vomiting, fevers, chills. Pt states she had a urologic procedure today with Dr. Acosta. She had a stent placed for a 1 cm right-sided kidney stone that was lodged at the UVJ, and having kidney stone removal on wednesday. Dr. Acosta consulted. He is very familiar with the patient. Reviewed the imaging and work-up. He believes this is inflammatory in nature, that patient is having stent colic. Procedure went well today. His concern for rupture is quite low. He will see her in clinic for routine follow-up. [facility] History I have reviewed the patient's past medical history: Yes 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: Reports:: Anxiety, Asthma, Depression, Gastroesophageal Reflux Disease(GERD), Hyperlipidemia, Hypertension, Kidney Stones, Migraine Denies:: Cancer, Diabetes Mellitus Type 1, Diabetes Mellitus Type 2, Internal Pacemaker, MRSA, Seizures *Have you ever received a pneumonia vaccine?: Yes *Have you received a flu vaccine this season?: Yes Other 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: Reports: Fibromyalgia, Other. Denies: Blood Transfusion Reaction Laterality Cases: Left: Other, Bilateral: Myringotomy (Ear Tubes), Tonsillectomy Other Surgeries: Yes: No Previous Surgery, Cholecystectomy, Colonoscopy, Hernia Repair, Hysterectomy-Total, Ureter Stent, Other. No: Pacemaker Amputation: No Fractures: Yes (Left leg ORIF) - *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 Last grade of school completed: High school graduate Smoking Status: Current every day smoker Tobacco Type: smokeless tobacco # Packs/Day (cigarettes): 1 Alcohol Intake: never Alcohol Intake Frequency:: holidays/special occasions only Substance Use Type: denies use *Occupational Status:: unemployed Housing: house Household Members: none *Travel in the last 8 weeks: None - Psychiatric History Pschychiatric History:: Reports:: Anxiety, Depression, Post Traumatic Stress Disorder Family Hx:: Unable to obtain Review of Systems - Constitutional Denies body ache(s) - Eyes Denies blurry vision - ENT Denies bleeding gums - *Cardiovascular Denies chest pain at rest - *Respiratory Denies chest congestion - *Gastrointestinal Reports abdominal pain - *Genitourinary Reports other, Denies urinary urgency - *Musculoskeletal Denies joint pain - Integumentary/Breasts Denies bleeding lesions - *Neurologic Denies headache(s), Denies numbness - Psychiatric Denies lack of enjoyment - Endocrine Denies flushing - Hematologic/Lymphatic Denies enlarged lymph nodes - Allergic/Immunologic Denies itchy eyes Exam Vital signs and Labs for Last 24 Hours: Temp Pulse Resp BP Pulse Ox 97.9 F 85 16 162/108 H 95 01/14/22 08:00 01/14/22 08:00 01/14/22 08:00 01/14/22 08:00 01/14/22 08:00 Laboratory Results - last 24 hr 01/14/22 01:05: Urine Color Dk yellow, Urine Appearance Clear, Urine pH 7.0, Ur Specific [place] 1.025, Urine Protein 2+, Urine Glucose (UA) Negative, Urine Ketones Negative, Urine Blood 3+, Urine Nitrate Negative, Urine Bilirubin Negative, Urine Urobilinogen 0.2, Ur Leukocyte Esterase 1+ A, Urine RBC Tntc, Urine WBC 5-10, Ur Squamous Epith Cells Occasional, Amorphous Sediment 1+, Urine Bacteria 2+, Urine Mucus 1+ 01/14/22 02:23: WBC 17.3 H, RBC 4.90, Hgb 14.0, Hct 43.2, MCV 88.2, MCH 28.6, MCHC 32.4, RDW 14.7, Plt Count 469 H, MPV 7.8, Neut % (Auto) 85.0 H, Lymph % (Auto) 8.7 L, Cloud % (Auto) 4.8, Eos % (Auto) 0.2, Baso % (Auto) 1.4, Neut # (Auto) 14.7 H, Lymph # (Auto) 1.5, Cloud # (Auto) 0.8, Eos # (Auto) 0.0, Baso # (Auto) 0.2, Total Counted 100, Neutrophils % (Manual) 88 H, Lymphocytes % (Manual) 12, Platelet Estimate Normal,
--- NOTE | 2022-01-19 15:40 | CARE MANAGER ---
Attempted x3 to contact patient related to follow up from hospital discharge. EVE Alston
--- NOTE | 2022-01-19 17:10 | CARE MANAGER ---
Patient contacted me regarding follow up from hospital discharge. Patient states that she is in horrible pain and Dr. Acosta's office will not prescribe her anything additional at this time. She tried to follow up with him on 01/16/22 as per discharge instructions but Dr. Acosta was not in the office on 01/16/22. She states she saw in her medical record where her U/A grew 2 different species of E.Coli. States she had been on Levaquin wh ich is was resistant to. She is likely to return to the ER tonight due to the amount of pain she is in. Will forward information to PCP. EVE Alston
== END 2022-01-14 15:20 | disposition home or self-care (01) ==
LOC: ER 04:34 → 2ND 05:25
PROVIDERS: Nurse Practitioner Family; Admitting Provider Family Medicine; Emergency Provider Emergency Medicine; PCP Internal Medicine; Visit Provider Family Medicine
DX: R10.31 Right lower quadrant pain (principal); Z79.899 Other long term (current) drug therapy; N20.1 Calculus of ureter; I10 Essential (primary) hypertension; E78.5 Hyperlipidemia, unspecified; K21.9 Gastro-esophageal reflux disease without esophagitis; F17.210 Nicotine dependence, cigarettes, uncomplicated; Z88.8 Allergy status to other drugs, medicaments and biological substances; Z20.822 Contact with and (suspected) exposure to COVID-19
CPT/HCPCS: 36415; 74018; 74177; 80048; 80053; 81001; 85007; 85025; 87081; 87086; 87088; 87186; 96375; C9803; G0378; J1956; Q9967; U0003; U0005

== ENCOUNTER 2022-01-19 17:25 | Emergency (ER) | payer OTHER, SELFPAY ==
[2022-01-19 17:27] VITALS: BP 183/135; PULSE 105; RESP 16; TEMP 36.9; O2SAT 97; BMI 36.6
--- NOTE | 2022-01-19 17:52 | HMH.EDUROGF ---
ED Disposition Clinical Impression: Renal colic on left side Hypertension Qualifiers: Hypertension type: unspecified Qualified Code(s): I10 - Essential (primary) hypertension Disposition: Home, Self-Care Condition on Discharge: Fair Additional Instructions: Keep all of your follow-up appointments as scheduled. Return to the emergency department if you feel worse in any way. Take all your medications as prescribed. I have sent a prescription for Keflex to [facility] pharmacy. Prescriptions: cephALEXin [Cephalexin 500mg Tab] 500 mg PO QID #40 tab Transmission Status: Pending to [facility] Referrals: Provider,Referral, [Primary Care Provider] - - Critical Care Critical Care Time: No Attestation: On 01/19/22, the high probability of a clinically significant, sudden or life threatening deterioration of the following system(s) required my full and direct attention, intervention and personal management. The time I documented below is in addition to time spent performing reported procedures but includes the following listed in this critical care notation. Medical Decision Making - Medical Records Medical records reviewed: Yes: I reviewed the patient's medical records. - Olu Inquiry Pt receiving controlled substance: No Vital Signs: 01/19/22 17:27 Temperature 98.5 F Temperature Source Oral Pulse Rate [Left Radial] 105 H Respiratory Rate 16 Blood Pressure [Left Arm] 183/135 H Blood Pressure Mean [Left Arm] 151 Blood Pressure Source [Left Arm] Automatic Cuff Blood Pressure Position [Left Arm] Sitting 02 Sat by Pulse Oximetry 97 Oxygen Delivery Method Room Air - Lab Data Lab results reviewed: Yes: I reviewed the patient's lab results. Lab Results 01/19/22 18:05: Urine Color Red, Urine Appearance Turbid, Urine pH 6.5, Ur Specific [place] 1.025, Urine Protein 3+, Urine Glucose (UA) Negative, Urine Ketones Trace, Urine Blood 3+, Urine Nitrate Positive, Urine Bilirubin Negative, Urine Urobilinogen 1.0, Ur Leukocyte Esterase 2+ A, Urine RBC Tntc, Urine WBC 10-20, Ur Squamous Epith Cells 5-10, Urine Bacteria 3+ Orders (Tests/Meds): ORDERS Category Date Time Status Urine Culture Stat Micro 01/19/22 18:05 Received - Radiology Data #1 Image(s): Abdomen Image Reviewed: Yes I reviewed the patient's radiology image Preliminary Findings: Normal/NAD (The ureteral stent seems to be in the appropriate location.) Medical Decision Narrative: Patient's urinalysis is abnormal. However, it is consistent with a ureteral stent in place. The patient is afebrile. She is currently on antibiotics. The patient's radiograph shows that the ureteral stent is in proper position. The patient has a history of hypertension. Her blood pressure is elevated. However she has a normal mental status and she does not have any difficulty breathing. There is no evidence of endorgan failure. I feel that the patient can be discharged in stable condition with follow-up as scheduled. Female Urogenital HPI - General Stated complaint: kIDNEY STONE, BLEEDING Time Seen by Provider: 01/19/22 17:52 Mode of Arrival: Ambulatory - History of Present Illness HPI Narrative: The patient presents to the emergency department complaining of hematuria with pain. Had a ureteral stent placed on the right side on Wednesday. This was done for kidney stone. According to the patient the kidney stone was manipulated back into the pelvis of the kidney and then the stent was placed. She also seeks care at the [facility]. She had a x-ray and CT done on Wednesday in this emergency department because she came here after stent placement due to pain. She denies any vomiting or fever. - Related Data Home Medications Medication Instructions Recorded Confirmed paroxetine HCl 40 mg tablet 60 mg PO DAILY 10/21/17 01/14/22 Tizanidine HCl [Zanaflex 4mg 4 mg PO TIDP PRN 03/15/18 01/14/22 tab] Losartan [place]
--- NOTE | 2022-01-19 17:59 | XR_ITS ---
PROCEDURE INFORMATION: Exam: XR Abdomen Exam date and time: 01/19/22 06:06 PM Age: 36 years old Clinical indication: Abdominal pain; Flank; Right; Additional info: Ureteral stent pain TECHNIQUE: Imaging protocol: XR of the abdomen. Views: Frontal supine view of the abdomen. 1 View. COMPARISON: CT ABDOMEN PELVIS W CON 01/14/22 02:58 AM FINDINGS: Tubes, catheters and devices: Right ureteral double-J stent in place. Gastrointestinal tract: Normal. No bowel dilation. Organs: Large right ureteral calculus at the right ureteropelvic junction. Bones/joints: Unremarkable. IMPRESSION: 1. Right ureteral double-J stent in place. 2. Large right ureteral calculus at the right ureteropelvic junction.
[2022-01-19 18:00] VITALS: BP 183/130; PULSE 107; RESP 18; O2SAT 98
--- NOTE | 2022-01-19 18:07 | PC.NURSE ---
Notified rad of [facility]TEZ[facility]
--- NOTE | 2022-01-19 18:09 | PC.NURSE ---
Urine sent to lab
[2022-01-19 18:15] LABS: Microscopic, Urine URINE MICROSCOPIC (MICROSCOPIC)
[2022-01-19 18:20] LABS: Appearance,Urine TURBID (Clear); Bilirubin,Urine Negative (Negative); Blood, Urine 3+ (Negative); Color,Urine RED (Yellow); Glucose,Urine (UA) Negative (Negative); Ketones,Urine TRACE (Negative); Leukocyte Esterase,Urine 2+ (Negative); Nitrate,Urine POSITIVE (Negative); PH,Urine 6.5 (5.0-8.5); Protein,Urine 3+ (Negative); Specific Gravity, Urine 1.025 (1.005-1.030)
[2022-01-19 18:39] LABS: Bacteria,Urine 3+ /lpf; RBC,Urine TNTC #/hpf (0-3)
[2022-01-19 19:10] VITALS: BP 167/99; PULSE 105; RESP 18; TEMP 36.9; O2SAT 98
== END 2022-01-19 19:12 | disposition home or self-care (01) ==
PROVIDERS: Emergency Provider Emergency Medicine
DX: N23 Unspecified renal colic (principal); I10 Essential (primary) hypertension; F41.8 Other specified anxiety disorders; K21.9 Gastro-esophageal reflux disease without esophagitis; E78.5 Hyperlipidemia, unspecified; M79.7 Fibromyalgia; F17.210 Nicotine dependence, cigarettes, uncomplicated; Z87.442 Personal history of urinary calculi; Z88.0 Allergy status to penicillin; Z88.5 Allergy status to narcotic agent
CPT/HCPCS: 74018; 81001; 87086; 87088; 87186; 99283

== ENCOUNTER → 2022-01-22 14:53 | Outpatient (CLI) | payer OTHER, SELFPAY | PROVIDERS: Visit Provider Urology | DX: Z01.812 Encounter for preprocedural laboratory examination (principal); Z11.52 Encounter for screening for COVID-19 | CPT/HCPCS: C9803; U0003; U0005 ==

== ENCOUNTER 2022-01-23 07:22 | Day surgery (SDC) | payer OTHER, SELFPAY ==
--- NOTE | 2022-01-12 08:33 | HMH.ANESCL ---
[facility] Anesthesia Checklist - Patient Identification Patient Identification: Arm Band, Verbal (Name & ) - Structural Data Admitted From: Home Planned Operative Procedure/s: Port placement Consent for Planned Operative Procedure(s) Verified: Yes Verified Documents: Surgical Consent - NPO Status Verified Time NPO: 07:30 - Chart Verification Results Verified: BMP - Additional verifications Anesthesia Reactions: Yes (CRYING) Hx Blood Transfusions: No Blood Transfusion Reaction: No - Airway Assessment C-Spine Mobility Assessed: Yes TMJ Mobility Assessed: Yes Dentition: Poor Dentition - Neurological Assessment Level of Consciousness: Awake, Alert, Appropriate - Anesthesia Plan Anesthesia Risk discussed: Yes ASA Class: III Anesthesia Type: General [facility] History I have reviewed the patient's past medical history: Yes 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: Reports:: Anxiety, Asthma, Depression, Gastroesophageal Reflux Disease(GERD), Hyperlipidemia, Hypertension, Kidney Stones, Migraine, MRSA Denies:: Cancer, Diabetes Mellitus Type 1, Diabetes Mellitus Type 2, Internal Pacemaker, Seizures *Have you ever received a pneumonia vaccine?: Yes *Have you received a flu vaccine this season?: Yes Other 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: Reports: Fibromyalgia, Other. Denies: Blood Transfusion Reaction Anesthesia experience/problems:: none Laterality Cases: Left: Other, Bilateral: Myringotomy (Ear Tubes), Tonsillectomy Other Surgeries: Yes: No Previous Surgery, Cholecystectomy, Colonoscopy, Hernia Repair, Hysterectomy-Total, Ureter Stent, Other. No: Pacemaker Amputation: No Fractures: Yes (Left leg ORIF) - *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 Smoking Status: Current every day smoker Tobacco Type: smokeless tobacco # Packs/Day (cigarettes): 1 Alcohol Intake: never Alcohol Intake Frequency:: holidays/special occasions only Substance Use Type: denies use *Occupational Status:: unemployed Housing: house Household Members: none *Travel in the last 8 weeks: None - Psychiatric History Pschychiatric History:: Reports:: Anxiety, Depression, Post Traumatic Stress Disorder Family Hx:: No significant family history
[2022-01-21 11:34] VITALS: BMI 48.1
--- NOTE | 2022-01-23 07:30 | XR_ITS ---
FINAL REPORT CLINICAL HISTORY: kidney stone COMPARISON: Abdomen plain film dated January 19, [address] scan of the abdomen and pelvis dated January 14, 2022 FINDINGS: SINGLE VIEW ABDOMEN A single view of the abdomen was obtained. There is a nonobstructive bowel gas pattern. There are no abnormally dilated loops of small bowel. There is a right ureteral stone. There is a probable stone adjacent to the proximal right ureter measuring 7 mm, stable. There are postoperative changes in the right upper quadrant. IMPRESSION: Stable probable stone adjacent to the proximal right ureter. Right ureteral stone. Reviewed, Interpreted and Dictated by Nicholas Escobedo III, MD Transcribed by Lorraine Hammonds Authenticated by Nicholas Escobedo III, MD on 01/23/2022 09:36:05 AM [facility]
[2022-01-23 08:40] LABS: Basophils # 0.1 K/mm3 (0-0.2); Basophils % 1.1 % (0.1-2.0); Eosinophils # 0.2 K/mm3 (0.0-0.4); Eosinophils % 1.7 % (0.1-12.0); Hematocrit 40.2 % (37.0-47.0); Hemoglobin 13.5 g/dL (12.2-16.2); Lymphocytes # 1.1 K/mm3 (0.7-4.5); Lymphocytes % 8.3 % (10-50); Mean Corpuscular HGB Conc 33.6 g/dL (31.8-35.4); Mean Corpuscular Hemoglobin 29.4 pg (27.0-31.2); Mean Corpuscular Volume 87.6 fl (81-99); Mean Platelet Volume 7.9 fl (7.4-10.4); Monocytes # 0.8 K/mm3 (0.1-1.0); Monocytes % 6.4 % (1.7-9.3); Neutrophils # 10.8 K/mm3 (1.8-7.8); Neutrophils % 82.6 % (37.0-80.0); Platelet Count 322 K/mm3 (142-424); Red Blood Count 4.59 M/mm3 (4.20-5.40); Red Cell Distribution Width 14.6 % (11.5-17.5); White Blood Count 13.1 K/mm3 (4.8-10.8)
[2022-01-23 08:48] LABS: Anion Gap 10.4 mEq/L (5-15); Blood Urea Nitrogen 13 mg/dl (7-17); Calcium 8.4 mg/dl (8.4-10.2); Carbon Dioxide 27 mmol/L (22.0-30.0); Chloride 106 mmol/L (98-107); Creatinine Clearance Estimated 68 mL/min (50-200); Estimated Glomerular Filt Rate 71 ml/min (>60); GFR (African American) 86 ML/MIN (>60); Glucose 116 mg/dl (74-100); Potassium 3.4 mmoL/L (3.5-5.1); Sodium 140 mmol/L (136-145)
== END 2022-01-23 08:35 | disposition home or self-care (01) ==
PROVIDERS: PCP Internal Medicine; Visit Provider Urology
DX: N20.0 Calculus of kidney (principal)
CPT/HCPCS: 74018; 80048; 85025

== ENCOUNTER 2022-01-23 08:45 | Inpatient (IN) | payer OTHER, SELFPAY ==
[2022-01-23] VITALS (10 sets, daily range): BP systolic 112–189; BP diastolic 80–100; PULSE 84–121; RESP 16–22; TEMP 37.8–39.6; O2SAT 95–98; BMI 48.1; BMI 46.5
--- NOTE | 2022-01-23 08:50 | PC.NURSE ---
Mayela Wellington RN at BS
--- NOTE | 2022-01-23 08:54 | PC.NURSE ---
ED MD at
--- NOTE | 2022-01-23 08:56 | HMH.EDGENADL ---
ED Disposition Clinical Impression: Pyelonephritis, Ureteral calculus, S/P ureteral stent placement Sepsis Qualifiers: Sepsis type: Escherichia coli Sepsis acute organ dysfunction status: without acute organ dysfunction Qualified Code(s): A41.51 - Sepsis due to Escherichia coli [E. coli] Disposition: Admitted as Observation Condition on Discharge: Fair Referrals: Provider,Referral, [Primary Care Provider] - - Critical Care Critical Care Time: No Attestation: On , the high probability of a clinically significant, sudden or life threatening deterioration of the following system(s) required my full and direct attention, intervention and personal management. The time I documented below is in addition to time spent performing reported procedures but includes the following listed in this critical care notation. Medical Decision Making - Medical Records Medical records reviewed: Yes: I reviewed the patient's medical records. MR Comment: Reviewed urine culture result and sensitivities from 01/19/2022. 2 E. coli organisms. Similar to previous cultures. Reviewed most recent emergency department visit 01/19/2022 and discharge summary from admission 01/14/2022. Reviewed laboratory results obtained today in preop. - Olu Inquiry Pt receiving controlled substance: No Orders (Tests/Meds): ORDERS Category Date Time Status Lactic Acid Stat Lab 01/23/22 09:10 Received Rapid PCR Covid and Flu A/B Stat Lab 01/23/22 09:10 Received Urinalysis and Microscopic Stat Lab 01/23/22 09:10 Received Blood Culture Stat Micro 01/23/22 09:10 Received - Physician Consults Physician Consulted: Kade Time: 09:20 Reason -: Admission Comment/Response: Agrees to admit the patient to the hospital. We discussed the patient's clinical information, including history, exam, laboratory and radiology results and ED course. Per hospital procedure, I will write temporary bridge inpatient orders on the patient. Specific orders requested by the admitting physician: Rocephin Medical Decision Narrative: Patient has listed allergies to penicillin and cefaclor, but has received other cephalosporins without difficulties, including Rocephin, as recently as November. General Adult HPI - General Stated complaint: Time Seen by Provider: 01/23/22 08:56 - History of Present Illness HPI narrative: Sent from the preop department. She was here to have lithotripsy done today and was discovered to have a fever and tachycardia. She says she thinks they told her her temperature was 101.5. Dr. Acosta saw her and told her that he needed to send her to the emergency room. She has a right ureteral calculus and has had stone pushback and stent placement 01/13/2022. She states that she felt cold when she woke up this morning but did not realize she had a fever until she came in for her surgery. She was recently in the emergency room here and based on the culture results she says that Dr. Acosta called her in a prescription for Macrobid yesterday for UTI. She has had 1 dose. She is on Percocet for pain. Last dose was last night. - Related Data Home Medications Medication Instructions Recorded Confirmed paroxetine HCl 40 mg tablet 60 mg PO DAILY 10/21/17 01/14/22 Tizanidine HCl [Zanaflex 4mg 4 mg PO TIDP PRN 03/15/18 01/14/22 tab] Losartan Potassium [Cozaar 50mg 50 mg PO DAILY 02/03/21 01/14/22 Tablets] Pregabalin [Lyrica 100mg Cap] 150 mg PO BID 04/30/21 01/14/22 Oxybutynin Chloride [Oxybutynin 10 mg PO DAILY 01/14/22 01/14/22 Chloride ER] levoFLOXacin [Levaquin 500mg 500 mg PO DAILY 01/14/22 01/14/22 tab] Previous Rx's Medication Instructions Recorded Hydrocod/Acet 5/325 mg [[place] 1 - 2 tab PO Q6HP PRN #11 tab 01/12/22 5/325mg tablet] hydromorphone 2 mg tablet 2 mg PO Q6H PRN #12 tab 01/14/22 cephALEXin [Cephalexin 500mg Tab] 500 mg PO QID #40 tab 01/19/22 nitrofurantoin 100 mg PO BID 10 Days #20 cap 01/22/22 monoh
--- NOTE | 2022-01-23 09:18 | PC.NURSE ---
Dr. Kade kirkpatrick for Dr. Salvador
--- NOTE | 2022-01-23 09:21 | PC.NURSE ---
Dr. Braun speaking with ED MD
[2022-01-23 09:24] LABS: Coronavirus 19, PCR Not Detected (NotDetected); Influenza A, PCR Not Detected (NotDetected); Influenza B, PCR Not Detected (NotDetected); Microscopic, Urine URINE MICROSCOPIC (MICROSCOPIC)
--- NOTE | 2022-01-23 09:35 | PC.NURSE ---
Contacted [facility] notification line and left a VM for them to return our call
[2022-01-23 09:37] LABS: Lactic Acid 1.5 mmol/L (0.7-2.1)
[2022-01-23 09:39] LABS: Appearance,Urine TURBID (Clear); Bilirubin,Urine Negative (Negative); Blood, Urine 3+ (Negative); Color,Urine AMBER (Yellow); Glucose,Urine (UA) Negative (Negative); Ketones,Urine Negative (Negative); Leukocyte Esterase,Urine 2+ (Negative); Nitrate,Urine POSITIVE (Negative); Protein,Urine 3+ (Negative); Urobilinogen,Urine 0.2 EU/dl (0.2)
[2022-01-23 09:54] LABS: RBC,Urine TNTC #/hpf (0-3); WBC,Urine 50-100 #/hpf (0-3)
[2022-01-23 09:55] LABS: Bacteria,Urine 1+ /lpf
--- NOTE | 2022-01-23 09:57 | PC.NURSE ---
Mayela Wellington RN speaking with [facility] nurse line
--- NOTE | 2022-01-23 09:59 | PC.NURSE ---
Spoke with [place] transfer center who advised they did not have any beds at this time and did not anticipate bed availability anytime soon. Pt will be admitted to [facility]. Notified MD and pt updated on POC.
--- NOTE | 2022-01-23 10:05 | PC.NURSE ---
Notified care management of admission
--- NOTE | 2022-01-23 10:07 | PC.NURSE ---
1007 bed assignment requested, room 208. all staff notified
--- NOTE | 2022-01-23 11:03 | PC.NURSE ---
Gave report to Chapis
--- NOTE | 2022-01-23 11:15 | HMH.PHAVTE ---
[facility] Pharmacy VTE Monitoring - Patient Demographics Admission date: 01/23/22 Report Date: 01/23/22 Time: 11:15 Allergies/Adverse Reactions: Patient Allergies Penicillins Allergy (Severe, Verified 01/12/22 08:01) Hives gatifloxacin [From TEQUIN] Allergy (Mild, Verified 01/12/22 08:01) ketorolac [From TORADOL] Allergy (Mild, Verified 01/12/22 08:01) aztreonam [AZTREONAM] Allergy (Unknown, Verified 01/12/22 08:01) NA-NAUSEA/VOMITING cefaclor [CEFACLOR] Allergy (Unknown, Verified 01/12/22 08:01) codeine [CODEINE] Allergy (Unknown, Verified 01/12/22 08:01) BLEEDING OF EYES AND NOSE doxycycline [DOXYCYCLINE] Allergy (Unknown, Verified 01/12/22 08:01) midazolam [From VERSED] Allergy (Unknown, Verified 01/12/22 08:01) ondansetron [From ZOFRAN ( HYDROCHLORIDE)] Allergy (Unknown, Verified 01/12/22 08:01) sulfamethoxazole [From BACTRIM] Allergy (Unknown, Verified 01/12/22 08:01) trimethoprim [From BACTRIM] Allergy (Unknown, Verified 01/12/22 08:01) ibuprofen Allergy (Verified 01/12/22 08:01) tramadol Allergy (Verified 01/12/22 08:01) Height: 1.57 m Weight: 119.295 kg Patient Problems: Current Active Problems Pyelonephritis (Acute) Ureteral calculus (Acute) Sepsis (Acute) S/P ureteral stent placement (Acute) - Prophylaxis VTE Prophylaxis Ordered?: Yes Types of VTE Prophylaxis: TEDS Knee High
--- NOTE | 2022-01-23 14:44 | HMH.PHAINT ---
MEDICATION RECONCILIATION COMPLETED ON PATIENT USING EXTERNAL FILL HISTORY FROM PHARMACY, DISCHARGE SUMMARY FROM PREVIOUS ADMISSION, AND [facility] REPORT. -RAY BAKERD
--- NOTE | 2022-01-23 15:45 | HMH.CONS ---
*Admission Date: 01/23/22 *Reason for consult:: Pyelonephritis *History of present illness: Patient is a 36-year-old white female with history of nephrolithiasis. She currently has a right ureteral stent in place and was scheduled for ESWL of a right proximal ureteral stone today but upon presentation to the preoperative suite she does not appear well and had a temp of 101.6 and her pulse rate was in the 130s. Her case was canceled and medicine was consulted. They thought it would be better to go to the emergency room. I had ordered a CBC and BMP but I do not see those in the computer yet. Review of her KUB today shows that the stent is in good position. The stone is adjacent to the stent in the right proximal ureter. Patient's labs from a week ago showed a white count of 16.8 and a repeat urine culture 2 days ago showed E. coli and she was started on Macrobid yesterday. [facility] History 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: Reports:: Anxiety, Asthma, Depression, Gastroesophageal Reflux Disease(GERD), Hyperlipidemia, Hypertension, Kidney Stones, Migraine Denies:: Cancer, Diabetes Mellitus Type 1, Diabetes Mellitus Type 2, Internal Pacemaker, MRSA, Seizures *Have you ever received a pneumonia vaccine?: No *Have you received a flu vaccine this season?: Yes Other 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: Reports: Fibromyalgia, Other. Denies: Blood Transfusion Reaction Laterality Cases: Left: Other, Bilateral: Myringotomy (Ear Tubes), Tonsillectomy Other Surgeries: Yes: No Previous Surgery, Cholecystectomy, Colonoscopy, Hernia Repair, Hysterectomy-Total, Ureter Stent, Other. No: Pacemaker Amputation: No Fractures: Yes (Left leg ORIF) - *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 Smoking Status: Current every day smoker Tobacco Type: smokeless tobacco # Packs/Day (cigarettes): 1 Alcohol Intake: never Alcohol Intake Frequency:: holidays/special occasions only Substance Use Type: denies use *Occupational Status:: unemployed Housing: house Household Members: none *Travel in the last 8 weeks: None - Psychiatric History Pschychiatric History:: Reports:: Anxiety, Depression, Post Traumatic Stress Disorder Family Hx:: Unable to obtain Review of Systems - Review of Systems Review of systems:: pertinent systems reviewed and negative unless documented below Meds Home Medications Medication Instructions Recorded Confirmed Type paroxetine HCl 40 mg tablet 60 mg PO DAILY 10/21/17 01/23/22 History Tizanidine HCl [Zanaflex 4mg 4 mg PO TIDP PRN 03/15/18 01/23/22 History tab] Losartan Potassium [Cozaar 50mg 50 mg PO DAILY 02/03/21 01/23/22 History Tablets] Pregabalin [Lyrica 100mg Cap] 150 mg PO BID 04/30/21 01/23/22 History Oxybutynin Chloride [Oxybutynin 10 mg PO DAILY 01/14/22 01/23/22 History Chloride ER] levoFLOXacin [Levaquin 500mg 500 mg PO DAILY 01/14/22 01/23/22 History tab] Nitrofurantoin Monohyd/M-Cryst 100 mg PO BID 01/23/22 01/23/22 History [Nitrofurantoin [place]-Mcr 100 mg] Promethazine HCl [Phenergan 25mg 25 mg PO Q6HP PRN 01/23/22 01/23/22 History tab] Allergies Allergy/AdvReac Type Severity Reaction Status Date / Time Penicillins Allergy Severe Hives Verified 01/12/22 08:01 gatifloxacin [From TEQUIN] Allergy Mild Verified 01/12/22 08:01 ketorolac [From TORADOL] Allergy Mild Verified 01/12/22 08:01 aztreonam [AZTREONAM] Allergy Unknown NA-NAUSEA/V Verified 01/12/22 08:01 OMITING cefaclor [CEFACLOR] Allergy Unknown Verified 01/12/22 08:01 codeine [CODEINE] Allergy Unknown BLEEDING Verified 01/12/22 08:01 OF EYES AND NOSE doxycycline [DOXYCYCLINE] Allergy Unknown Verified 01/12/22 08:01 midazolam [From VERSED] Allergy Unknown Verified 01/12/22 08:01 ondansetron Allergy Unknown Verified 01/12/22 08:01 [From ZOFRAN ( HYDROCHLORIDE)] sulfamethoxazole Allergy Unknown Verified 01/12/22 08:01 [From BACTRIM] trimethoprim [From BACTRIM] Allergy Unknown Verified 01/12/22 08:01 ibuprofen Allergy Verified 01/12/22 08:01 tramadol Shaji
--- NOTE | 2022-01-23 18:42 | HMH.HP ---
*Admission Date: 01/23/22 *Chief complaint: fever, kidney stone, sepsis *History of present illness: Ms. Kim is a 36-year-old white female with history of nephrolithiasis. Has had numerous visits to [facility] for pain and obstruction over the past month. She had a right ureteral stent placed in the past 2 weeks and was scheduled for ESWL of a right proximal ureteral stone today. Upon arrival in pre-op, she was noted to be febrile, tachycardic, with symptoms concerning for sepsis. She had a temp of 101.6 and her pulse rate was in the 130s. Her case was canceled and medicine was consulted. Recommended evaluation in the ER for initial work-up and initiation of sepsis bundle. Initiated on broad-spectrum antibiotics, started on IV fluids and pain medication administered. Admitted to medicine for further management. Urology consulted. Imaging obtained that shows the stent is in good position. The stone is adjacent to the stent in the right proximal ureter. Urine culture 2 days ago showed E. coli sensitive to Ceftriaxone. [facility] History I have reviewed the patient's past medical history: Yes 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: Reports:: Anxiety, Asthma, Depression, Gastroesophageal Reflux Disease(GERD), Hyperlipidemia, Hypertension, Kidney Stones, Migraine Denies:: Cancer, Diabetes Mellitus Type 1, Diabetes Mellitus Type 2, Internal Pacemaker, MRSA, Seizures *Have you ever received a pneumonia vaccine?: No *Have you received a flu vaccine this season?: Yes Other 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: Reports: Fibromyalgia, Other. Denies: Blood Transfusion Reaction Laterality Cases: Left: Other, Bilateral: Myringotomy (Ear Tubes), Tonsillectomy Other Surgeries: Yes: No Previous Surgery, Cholecystectomy, Colonoscopy, Hernia Repair, Hysterectomy-Total, Ureter Stent, Other. No: Pacemaker Amputation: No Fractures: Yes (Left leg ORIF) - *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 Smoking Status: Current every day smoker Tobacco Type: smokeless tobacco # Packs/Day (cigarettes): 1 Alcohol Intake: never Alcohol Intake Frequency:: holidays/special occasions only Substance Use Type: denies use *Occupational Status:: unemployed Housing: house Household Members: none *Travel in the last 8 weeks: None - Psychiatric History Pschychiatric History:: Reports:: Anxiety, Depression, Post Traumatic Stress Disorder Family Hx:: Unable to obtain Review of Systems - Review of Systems Review of systems:: pertinent systems reviewed and negative unless documented below (14 point review of systems performed, pertinent positives and negatives as per HPI) Meds Home Medications Medication Instructions Recorded Confirmed Type paroxetine HCl 40 mg tablet 60 mg PO DAILY 10/21/17 01/23/22 History Tizanidine HCl [Zanaflex 4mg 4 mg PO TIDP PRN 03/15/18 01/23/22 History tab] Losartan Potassium [Cozaar 50mg 50 mg PO DAILY 02/03/21 01/23/22 History Tablets] Pregabalin [Lyrica 100mg Cap] 150 mg PO BID 04/30/21 01/23/22 History Oxybutynin Chloride [Oxybutynin 10 mg PO DAILY 01/14/22 01/23/22 History Chloride ER] levoFLOXacin [Levaquin 500mg 500 mg PO DAILY 01/14/22 01/23/22 History tab] Nitrofurantoin Monohyd/M-Cryst 100 mg PO BID 01/23/22 01/23/22 History [Nitrofurantoin [place]-Mcr 100 mg] Promethazine HCl [Phenergan 25mg 25 mg PO Q6HP PRN 01/23/22 01/23/22 History tab] Allergies Allergy/AdvReac Type Severity Reaction Status Date / Time Penicillins Allergy Severe Hives Verified 01/12/22 08:01 gatifloxacin [From TEQUIN] Allergy Mild Verified 01/12/22 08:01 ketorolac [From TORADOL] Allergy Mild Verified 01/12/22 08:01 aztreonam [AZTREONAM] Allergy Unknown NA-NAUSEA/V Verified 01/12/22 08:01 OMITING cefaclor [CEFACLOR] Allergy Unknown Verified 01/12/22 08:01 codeine [CODEINE] Allergy Unknown BLEEDING Verified 01/12/22 08:01 OF EYES AND NOSE doxycycline [DOXYCYCLINE] Allergy Unknown Verified 01/12/22 08:01 midazolam [From VERSED] Allergy Unknown Verified 01/12/22 08:01 ondansetron Shaji
[2022-01-24] VITALS (8 sets, daily range): BP systolic 114–165; BP diastolic 74–89; PULSE 82–114; RESP 17–27; TEMP 36.8–39.6; O2SAT 90–98; BMI 49.3
--- NOTE | 2022-01-24 03:52 | PC.NURSE ---
Pt a + o x4. Pt has been febrile t/o shift with fever reaching 103.3 . Extra blankets removed, ice packs and cold rags placed, 1 gm Tylenol administered with favorable results. Pt has c/o right abdominal pain 2x t/o shift. PRN pain medication administered per MAR, pt states favorable results. Pt able to ambulate to BR, urine is pale yellow and cloudy. Call light within reach.
[2022-01-24 09:10] LABS: Basophils # 0.1 K/mm3 (0-0.2); Basophils % 1.1 % (0.1-2.0); Eosinophils # 0.1 K/mm3 (0.0-0.4); Eosinophils % 0.7 % (0.1-12.0); Hematocrit 37.9 % (37.0-47.0); Hemoglobin 12.6 g/dL (12.2-16.2); Lymphocytes # 1.5 K/mm3 (0.7-4.5); Lymphocytes % 13.3 % (10-50); Mean Corpuscular HGB Conc 33.3 g/dL (31.8-35.4); Mean Corpuscular Hemoglobin 29.5 pg (27.0-31.2); Mean Corpuscular Volume 88.7 fl (81-99); Mean Platelet Volume 8.3 fl (7.4-10.4); Monocytes # 1.1 K/mm3 (0.1-1.0); Monocytes % 9.6 % (1.7-9.3); Neutrophils # 8.7 K/mm3 (1.8-7.8); Neutrophils % 75.4 % (37.0-80.0); Platelet Count 260 K/mm3 (142-424); Red Blood Count 4.27 M/mm3 (4.20-5.40); Red Cell Distribution Width 14.7 % (11.5-17.5); White Blood Count 11.5 K/mm3 (4.8-10.8)
[2022-01-24 09:17] LABS: Alanine Aminotransferase 28 U/L (12-78); Albumin Level 3.2 g/dl (3.5-5.0); Albumin/Globulin Ratio 1.1 (1.1-1.8); Alkaline Phosphatase 75 U/L (38-126); Anion Gap 9.4 mEq/L (5-15); Aspartate Amino Transferase 32 U/L (14-36); Blood Urea Nitrogen 10 mg/dl (7-17); Calcium 7.7 mg/dl (8.4-10.2); Carbon Dioxide 27 mmol/L (22.0-30.0); Chloride 104 mmol/L (98-107); Creatinine Clearance Estimated 73 mL/min (50-200); Estimated Glomerular Filt Rate 81 ml/min (>60); GFR (African American) 98 ML/MIN (>60); Glucose 115 mg/dl (74-100); Magnesium 1.5 mg/dl (1.6-2.3); Potassium 3.4 mmoL/L (3.5-5.1); Sodium 137 mmol/L (136-145); Total Protein,Serum 6.2 g/dl (6.3-8.2)
[2022-01-24 09:18] LABS: Bilirubin,Total < 0.1 mg/dl (0.2-1.3)
--- NOTE | 2022-01-24 11:11 | HMH.ACPN2 ---
Internal Medicine - PN: Subj *Date: 01/24/22 *Time: 13:47 Interval history: Continues to be febrile overnight. No nausea or vomiting. Still having right flank pain. No shortness of breath or chest pain. Pain remains quite prominent. Morphine helps but only scheduled as needed. Exam Vital signs and Labs for Last 24 Hours: Temp Pulse Resp BP Pulse Ox 99.0 F 114 H 20 165/74 H 97 01/24/22 10:54 01/24/22 08:00 01/24/22 08:00 01/24/22 08:00 01/24/22 08:00 Laboratory Results - last 24 hr 01/24/22 08:36: WBC 11.5 H, RBC 4.27, Hgb 12.6, Hct 37.9, MCV 88.7, MCH 29.5, MCHC 33.3, RDW 14.7, Plt Count 260, MPV 8.3, Neut % (Auto) 75.4, Lymph % (Auto) 13.3, [place] % (Auto) 9.6 H, Eos % (Auto) 0.7, Baso % (Auto) 1.1, Neut # (Auto) 8.7 H, Lymph # (Auto) 1.5, [place] # (Auto) 1.1 H, Eos # (Auto) 0.1, Baso # (Auto) 0.1 01/24/22 08:36: Sodium 137, Potassium 3.4 L, Chloride 104, Carbon Dioxide 27, Anion Gap 9.4, BUN 10, Creatinine 0.80, Estimated Creat Clear 73, Estimated GFR 81, Est GFR ( Amer) 98, Glucose 115 H, Calcium 7.7 L, Magnesium 1.5 L, Total Bilirubin < 0.1 L, AST 32, ALT 28, Alkaline Phosphatase 75, Total Protein 6.2 L, Albumin 3.2 L, Globulin 3.0, Albumin/Globulin Ratio 1.1 I & O for Last 24 hours: Intake & Output 01/21/22 01/22/22 01/23/22 01/24/22 23:59 23:59 23:59 23:59 Intake Total 960 / 960 Output Total 400 / 400 400 / 400 Balance 560 / 560 -400 / -400 Weight 115.383 kg 121.563 kg Microbiology Reports for the Last 24 Hours: Microbiology 01/23/22 09:10 Urine,Clean Catch Urine Culture - Preliminary Narrative: - Constitutional mild distress, morbidly obese - *Routine HEENT Exam Head: Present: normocephalic Eye: Present: EOMI, PERRL ENT: Present: mucous membranes moist Comments: hirsutism - *Routine Neck Exam Present: supple. Absent: lymphadenopathy - *Routine Respiratory Exam Present: CTA bilaterally - *Routine Cardiovascular/Chest Exam Present: RRR, port in right upper chest, no erythema or fluctuance or tenderness - *Routine Abdominal Exam Present: soft, normoactive bowel sounds. Absent: tenderness - *Routine Extremities Exam Absent: cyanosis, clubbing, edema - Routine Back/Spine/Pelvis Exam Back/Spine: Present: CVA tenderness (on right) - *Routine Skin Exam Present: warm. Absent: rash - *Routine Neurological Exam Present: alert, oriented X3 Assessment and Plan (1) Sepsis Status: Acute Qualifiers: Sepsis type: Escherichia coli Sepsis acute organ dysfunction status: without acute organ dysfunction Qualified Code(s): A41.51 - Sepsis due to Escherichia coli [E. coli] Category: Medical Code(s): A41.9 - Sepsis, unspecified organism (2) Pyelonephritis Status: Acute Category: Medical Code(s): N12 - Tubulo-interstitial nephritis, not specified as acute or chronic (3) Ureteral calculus, right Status: Acute Category: Medical Code(s): N20.1 - Calculus of ureter (4) Ureteral calculus Status: Acute Category: Medical Code(s): N20.1 - Calculus of ureter (5) Class 3 obesity Status: Chronic Category: Medical Code(s): E66.9 - Obesity, unspecified (6) S/P ureteral stent placement Status: Acute Category: Surgical Code(s): Z96.0 - Presence of urogenital implants (7) Hypertension Status: Chronic Category: Medical Code(s): I10 - Essential (primary) hypertension (8) Anxiety Status: Chronic Category: Medical Code(s): F41.9 - Anxiety disorder, unspecified - Assessment and plan all Dx Assessment and Plan for all problems:: 36-year-old female admitted for sepsis secondary to pyelonephritis and obstructing kidney stone. Stent placed last week and stable positioning. Cultures positive for E. coli 2 days ago, resistant to Levaquin. Sensitive to ceftriaxone and carbapenems. Unfortunately failed outpatient therapy. Started on ceftriaxone at admission. Still having fevers overnight. Problems add
--- NOTE | 2022-01-24 15:18 | PC.NURSE ---
Patients food intake I woke the patient up multiple times encouraging her to eat but she kept falling asleep.
[2022-01-25 04:00] VITALS: BP 129/74; PULSE 94; RESP 18; TEMP 36.6; O2SAT 90
--- NOTE | 2022-01-25 05:08 | PC.NURSE ---
Pt has c/o abdominal pain multiple times t/o shift. Scheduled oxycodone/acetampinophen 5-325 administered, pt states it does not help with the pain. 4mg Morphine has been administered for break thru pain, pt states favorable results. Pt has also c/o a sore throat t/o night. White patches concerning for thrush noted to back of throat. Pt also c/o pain and itching around portacath. On assessment, small blisters/redness/irritation noted to be under tegaderm. Tegaderm was removed, area cleaned, and tefla and microtape applied. After some time, pt stated this was also hurting the site. Area cleaned and gauze with microtape applied. Pt states relief. No other complaints voiced to staff. Call light within reach.
[2022-01-25 05:10] VITALS: BMI 48.9
[2022-01-25 06:36] LABS: Basophils # 0.2 K/mm3 (0-0.2); Basophils % 1.9 % (0.1-2.0); Eosinophils # 0.3 K/mm3 (0.0-0.4); Eosinophils % 2.5 % (0.1-12.0); Hemoglobin 12.4 g/dL (12.2-16.2); Lymphocytes # 1.8 K/mm3 (0.7-4.5); Lymphocytes % 16.9 % (10-50); Mean Corpuscular HGB Conc 31.9 g/dL (31.8-35.4); Mean Corpuscular Hemoglobin 28.6 pg (27.0-31.2); Mean Corpuscular Volume 89.7 fl (81-99); Mean Platelet Volume 7.9 fl (7.4-10.4); Monocytes # 0.8 K/mm3 (0.1-1.0); Monocytes % 8.1 % (1.7-9.3); Neutrophils # 7.4 K/mm3 (1.8-7.8); Neutrophils % 70.6 % (37.0-80.0); Platelet Count 312 K/mm3 (142-424); Red Blood Count 4.35 M/mm3 (4.20-5.40); Red Cell Distribution Width 14.8 % (11.5-17.5); White Blood Count 10.4 K/mm3 (4.8-10.8)
[2022-01-25 06:44] LABS: Anion Gap 6.7 mEq/L (5-15); Blood Urea Nitrogen 13 mg/dl (7-17); Calcium 8.1 mg/dl (8.4-10.2); Carbon Dioxide 30 mmol/L (22.0-30.0); Chloride 107 mmol/L (98-107); Creatinine Clearance Estimated 73 mL/min (50-200); Estimated Glomerular Filt Rate 81 ml/min (>60); GFR (African American) 98 ML/MIN (>60); Glucose 115 mg/dl (74-100); Magnesium 1.8 mg/dl (1.6-2.3); Potassium 3.7 mmoL/L (3.5-5.1); Sodium 140 mmol/L (136-145)
[2022-01-25 08:00] VITALS: BP 145/87; PULSE 95; RESP 18; TEMP 36.7; O2SAT 90; O2SAT 94
--- NOTE | 2022-01-25 08:42 | HMH.ACPN2 ---
Internal Medicine - PN: Amber *Date: 01/25/22 *Time: 08:42 Interval history: Patient's felt little bit better overnight. No further fevers. Of note CRE surveillance cultures positive. Urine culture growing gram-negative kevin, low colony count-however has been on antibiotics. Blood cultures remain negative. Exam Vital signs and Labs for Last 24 Hours: Temp Pulse Resp BP Pulse Ox 97.8 F 94 H 18 129/74 90 L 01/25/22 04:00 01/25/22 04:00 01/25/22 04:00 01/25/22 04:00 01/25/22 04:00 Laboratory Results - last 24 hr 01/23/22 09:10: Urine Color Xuan, Urine Appearance Turbid, Urine pH 7.0, Ur Specific [place] 1.020, Urine Protein 3+, Urine Glucose (UA) Negative, Urine Ketones Negative, Urine Blood 3+, Urine Nitrate Positive, Urine Bilirubin Negative, Urine Urobilinogen 0.2, Ur Leukocyte Esterase 2+ A, Urine RBC Tntc, Urine WBC 50-100, Ur Squamous Epith Cells 5-10, Urine Bacteria 1+ 01/24/22 08:36: WBC 11.5 H, RBC 4.27, Hgb 12.6, Hct 37.9, MCV 88.7, MCH 29.5, MCHC 33.3, RDW 14.7, Plt Count 260, MPV 8.3, Neut % (Auto) 75.4, Lymph % (Auto) 13.3, [place] % (Auto) 9.6 H, Eos % (Auto) 0.7, Baso % (Auto) 1.1, Neut # (Auto) 8.7 H, Lymph # (Auto) 1.5, [place] # (Auto) 1.1 H, Eos # (Auto) 0.1, Baso # (Auto) 0.1 01/24/22 08:36: Sodium 137, Potassium 3.4 L, Chloride 104, Carbon Dioxide 27, Anion Gap 9.4, BUN 10, Creatinine 0.80, Estimated Creat Clear 73, Estimated GFR 81, Est GFR ( Amer) 98, Glucose 115 H, Calcium 7.7 L, Magnesium 1.5 L, Total Bilirubin < 0.1 L, AST 32, ALT 28, Alkaline Phosphatase 75, Total Protein 6.2 L, Albumin 3.2 L, Globulin 3.0, Albumin/Globulin Ratio 1.1 01/25/22 06:24: WBC 10.4, RBC 4.35, Hgb 12.4, Hct 39.0, MCV 89.7, MCH 28.6, MCHC 31.9, RDW 14.8, Plt Count 312, MPV 7.9, Neut % (Auto) 70.6, Lymph % (Auto) 16.9, [place] % (Auto) 8.1, Eos % (Auto) 2.5, Baso % (Auto) 1.9, Neut # (Auto) 7.4, Lymph # (Auto) 1.8, [place] # (Auto) 0.8, Eos # (Auto) 0.3, Baso # (Auto) 0.2 01/25/22 06:24: Sodium 140, Potassium 3.7, Chloride 107, Carbon Dioxide 30, Anion Gap 6.7, BUN 13 D, Creatinine 0.80, Estimated Creat Clear 73, Estimated GFR 81, Est GFR ( Amer) 98, Glucose 115 H, Calcium 8.1 L, Magnesium 1.8 D I & O for Last 24 hours: Intake & Output 01/22/22 01/23/22 01/24/22 01/25/22 11:59 11:59 11:59 11:59 Intake Total 960 / 960 2370 / 2370 Output Total 800 / 800 400 / 400 Balance 160 / 160 1969 / 1969 Weight 263 lb 268 lb 266 lb Microbiology Reports for the Last 24 Hours: Microbiology 01/23/22 23:40 Anus CRE Surveillance Culture - Final 01/23/22 09:10 Urine,Clean Catch Urine Culture - Preliminary Gram Negative Rods Narrative: Patient is alert, pleasant. Morbid obesity limits accurate cardiac and lung exam, but she has clear lungs and irregular heart rhythm per my examination this morning. Her abdomen is soft, still a bit tender in the right flank, positive bowel sounds, she reports tenderness is better. No distal edema noted. Does have oral thrush. Assessment and Plan (1) Sepsis Status: Acute Qualifiers: Sepsis type: Escherichia coli Sepsis acute organ dysfunction status: without acute organ dysfunction Qualified Code(s): A41.51 - Sepsis due to Escherichia coli [E. coli] Category: Medical Code(s): A41.9 - Sepsis, unspecified organism (2) Pyelonephritis Status: Acute Category: Medical Code(s): N12 - Tubulo-interstitial nephritis, not specified as acute or chronic (3) Ureteral calculus, right Status: Acute Category: Medical Code(s): N20.1 - Calculus of ureter (4) Ureteral calculus Status: Acute Category: Medical Code(s): N20.1 - Calculus of ureter (5) Class 3 obesity Status: Chronic Category: Medical Code(s): E66.9 - Obesity, unspecified (6) S/P ureteral stent placement Status: Acute Category: Surgical Code(s): Z96.0 - Presence of urogenital implants (7) Hypertension Status: Chronic Category: M
[2022-01-25 16:00] VITALS: BP 147/76; PULSE 92; RESP 18; TEMP 36.7; O2SAT 93
[2022-01-25 19:53] VITALS: BP 167/95; PULSE 106; RESP 16; TEMP 36.9; O2SAT 95
[2022-01-26 04:00] VITALS: BP 160/75; PULSE 78; RESP 16; TEMP 36.6; O2SAT 94
[2022-01-26 05:00] VITALS: BMI 48.9
[2022-01-26 06:14] LABS: Basophils # 0.1 K/mm3 (0-0.2); Basophils % 1.6 % (0.1-2.0); Eosinophils # 0.3 K/mm3 (0.0-0.4); Eosinophils % 4.5 % (0.1-12.0); Hematocrit 38.9 % (37.0-47.0); Hemoglobin 12.1 g/dL (12.2-16.2); Lymphocytes # 1.5 K/mm3 (0.7-4.5); Lymphocytes % 20.9 % (10-50); Mean Corpuscular HGB Conc 31.1 g/dL (31.8-35.4); Mean Corpuscular Hemoglobin 27.7 pg (27.0-31.2); Mean Corpuscular Volume 89.1 fl (81-99); Mean Platelet Volume 8.4 fl (7.4-10.4); Monocytes # 0.6 K/mm3 (0.1-1.0); Monocytes % 8.4 % (1.7-9.3); Neutrophils # 4.7 K/mm3 (1.8-7.8); Neutrophils % 64.7 % (37.0-80.0); Platelet Count 383 K/mm3 (142-424); Red Blood Count 4.37 M/mm3 (4.20-5.40); Red Cell Distribution Width 14.6 % (11.5-17.5); White Blood Count 7.2 K/mm3 (4.8-10.8)
[2022-01-26 06:19] LABS: Anion Gap 9.1 mEq/L (5-15); Blood Urea Nitrogen 14 mg/dl (7-17); Calcium 8.3 mg/dl (8.4-10.2); Carbon Dioxide 29 mmol/L (22.0-30.0); Chloride 107 mmol/L (98-107); Creatinine Clearance Estimated 73 mL/min (50-200); Estimated Glomerular Filt Rate 81 ml/min (>60); GFR (African American) 98 ML/MIN (>60); Glucose 134 mg/dl (74-100); Potassium 4.1 mmoL/L (3.5-5.1); Sodium 141 mmol/L (136-145)
--- NOTE | 2022-01-26 06:52 | PC.NURSE ---
No acute changes. Pt has c/o right abdominal/flank pain multipl etimes t/o shift. Scheduled APAP and PRN morphine administered, pt states favorable results. Pt has c/o pain/burning/itching aroung portacath site. Skin appears irritated, red, and slightly blistered. Dsg has been changed multiple times. MD board of education secretary notified. New order for 25 mg Benadryl ordered and administered. Call light within reach.
[2022-01-26 08:00] VITALS: BP 171/84; PULSE 75; RESP 16; TEMP 36.7; O2SAT 94; O2SAT 96
--- NOTE | 2022-01-26 08:49 | HMH.ACPN2 ---
Internal Medicine - PN: Subj *Date: 01/26/22 *Time: 08:49 Interval history: Patient feels about the same issue to yesterday, continues to have some flank pain on the left side. Good p.o. intake. No fevers. Blood pressure has been stable. Exam Vital signs and Labs for Last 24 Hours: Temp Pulse Resp BP Pulse Ox 98 F 78 16 160/75 H 94 L 01/26/22 04:00 01/26/22 04:00 01/26/22 04:00 01/26/22 04:00 01/26/22 04:00 Laboratory Results - last 24 hr 01/26/22 05:58: WBC 7.2 D, RBC 4.37, Hgb 12.1 L, Hct 38.9, MCV 89.1, MCH 27.7, MCHC 31.1 L, RDW 14.6, Plt Count 383, MPV 8.4, Neut % (Auto) 64.7, Lymph % (Auto) 20.9, [place] % (Auto) 8.4, Eos % (Auto) 4.5, Baso % (Auto) 1.6, Neut # (Auto) 4.7, Lymph # (Auto) 1.5, [place] # (Auto) 0.6, Eos # (Auto) 0.3, Baso # (Auto) 0.1 01/26/22 05:58: Sodium 141, Potassium 4.1, Chloride 107, Carbon Dioxide 29, Anion Gap 9.1, BUN 14, Creatinine 0.80, Estimated Creat Clear 73, Estimated GFR 81, Est GFR ( Amer) 98, Glucose 134 H, Calcium 8.3 L I & O for Last 24 hours: Intake & Output 01/23/22 01/24/22 01/25/22 01/26/22 11:59 11:59 11:59 11:59 Intake Total 960 / 960 2610 / 2610 720 / 720 Output Total 800 / 800 1200 / 1200 1100 / 1100 Balance 160 / 160 1410 / 1410 -380 / -380 Weight 263 lb 268 lb 266 lb 266 lb 1 oz Microbiology Reports for the Last 24 Hours: Microbiology 01/23/22 09:10 Blood Blood Culture - Preliminary NO GROWTH AFTER 48 HOURS 01/23/22 09:10 Blood Blood Culture - Preliminary NO GROWTH AFTER 48 HOURS 01/23/22 23:40 Anus CRE Surveillance Culture - Final 01/23/22 09:10 Urine,Clean Catch Urine Culture - Preliminary Gram Negative Rods Narrative: Lungs clear, heart rate regular. Oropharynx clear. Nystatin has improved her thrush. Abdomen is soft, positive bowel sounds, continues have some CVA tenderness, no edema or clubbing in her extremities. Assessment and Plan (1) Sepsis Status: Acute Qualifiers: Sepsis type: Escherichia coli Sepsis acute organ dysfunction status: without acute organ dysfunction Qualified Code(s): A41.51 - Sepsis due to Escherichia coli [E. coli] Category: Medical Code(s): A41.9 - Sepsis, unspecified organism (2) Pyelonephritis Status: Acute Category: Medical Code(s): N12 - Tubulo-interstitial nephritis, not specified as acute or chronic (3) Ureteral calculus, right Status: Acute Category: Medical Code(s): N20.1 - Calculus of ureter (4) Ureteral calculus Status: Acute Category: Medical Code(s): N20.1 - Calculus of ureter (5) Class 3 obesity Status: Chronic Category: Medical Code(s): E66.9 - Obesity, unspecified (6) S/P ureteral stent placement Status: Acute Category: Surgical Code(s): Z96.0 - Presence of urogenital implants (7) Hypertension Status: Chronic Category: Medical Code(s): I10 - Essential (primary) hypertension (8) Anxiety Status: Chronic Category: Medical Code(s): F41.9 - Anxiety disorder, unspecified - Assessment and plan all Dx Assessment and Plan for all problems:: Sepsis is improving. Continue current IV antibiotics. Urology consultation for evaluation of further treatment of nephrolithiasis and management of stent. Possible discharge home today unless urology feels more procedures are indicated. Transition to p.o. pain management today from IV in preparation for possible discharge.
[2022-01-26 10:25] VITALS: BMI 48.6
--- NOTE | 2022-01-26 13:08 | HMH.DCSUM ---
General - General Admission date:: 01/23/22 Discharge date: 01/26/22 HPI HPI: Ms. Kim is a 36-year-old white female with history of nephrolithiasis. Has had numerous visits to [facility] for pain and obstruction over the past month. She had a right ureteral stent placed in the past 2 weeks and was scheduled for ESWL of a right proximal ureteral stone today. Upon arrival in pre-op, she was noted to be febrile, tachycardic, with symptoms concerning for sepsis. She had a temp of 101.6 and her pulse rate was in the 130s. Her case was canceled and medicine was consulted. Recommended evaluation in the ER for initial work-up and initiation of sepsis bundle. Initiated on broad-spectrum antibiotics, started on IV fluids and pain medication administered. Admitted to medicine for further management. Urology consulted. Imaging obtained that shows the stent is in good position. The stone is adjacent to the stent in the right proximal ureter. Urine culture 2 days ago showed E. coli sensitive to Ceftriaxone. Hospital Course Hospital Course: Patient was admitted, treated for sepsis with IV fluids and IV antibiotics. He responded well to this. Labs improved. Continued to have some pain in her flank from the stent placement. This was treated with morphine and then she was transitioned over to Percocet. Urine culture grew E. coli, sensitive to Macrobid. This morning she was at her baseline in regards to functioning. Minimal left-sided flank pain that was well treated with Percocet. Plan will be to discharge home with Macrobid, close follow-up with urology, Percocet for short-term pain relief. Follow-up in our office as scheduled Objective Vital signs: Temp Pulse Resp BP Pulse Ox 98.1 F 75 16 171/84 H 96 01/26/22 08:00 01/26/22 08:00 01/26/22 08:00 01/26/22 08:00 01/26/22 08:00 no acute distress, morbidly obese - *Routine HEENT Exam Head: Present: normocephalic Eye: Present: EOMI, PERRL ENT: Present: mucous membranes moist - *Routine Neck Exam Present: supple - *Routine Respiratory Exam Present: CTA bilaterally - *Routine Cardiovascular Exam Present: RRR - *Routine Abdominal Exam Present: soft, normoactive bowel sounds. Absent: tenderness - *Routine Extremities Exam Absent: cyanosis, clubbing, edema - *Routine Skin Exam Present: warm. Absent: rash - Detailed Eye Exam Eyelids: Bilateral normal inspection Results Labs on day of discharge: Labs from last 24 hours 01/26/22 01/26/22 05:58 05:58 WBC 7.2 D RBC 4.37 Hgb 12.1 L Hct 38.9 MCV 89.1 MCH 27.7 MCHC 31.1 L RDW 14.6 Plt Count 383 MPV 8.4 Neut % (Auto) 64.7 Lymph % (Auto) 20.9 Saline % (Auto) 8.4 Eos % (Auto) 4.5 Baso % (Auto) 1.6 Neut # (Auto) 4.7 Lymph # (Auto) 1.5 Saline # (Auto) 0.6 Eos # (Auto) 0.3 Baso # (Auto) 0.1 Sodium 141 Potassium 4.1 Chloride 107 Carbon Dioxide 29 Anion Gap 9.1 BUN 14 Creatinine 0.80 Estimated Creat Clear 73 Estimated GFR 81 Est GFR ( Amer) 98 Glucose 134 H Calcium 8.3 L Preliminary micro results at discharge 01/23/22 09:10 Blood Culture - Preliminary Blood NO GROWTH AFTER 48 HOURS 01/23/22 09:10 Blood Culture - Preliminary Blood NO GROWTH AFTER 48 HOURS DS: Diagnosis - Discharge Diagnosis (1) Sepsis Status: Resolved (2) Pyelonephritis Status: Acute (3) Ureteral calculus, right Status: Acute (4) Ureteral calculus Status: Acute (5) Class 3 obesity Status: Chronic (6) S/P ureteral stent placement Status: Acute (7) Hypertension Status: Chronic (8) Anxiety Status: Chronic Discharge Plan - Patient Discharge Instructions ACTIVITY: Continue current activity DIET: continue same diet Patient Instructions: Kidney Stones -- Adult, Hydronephrosis -- Adult, DI for Urinary Tract Infection (UTI) - Follow up Plan Follow up with: Khari Acosta
--- NOTE | 2022-01-26 14:30 | HMH.CONFU ---
Internal Medicine - PN: Subj *Date: 01/26/22 *Time: 14:30 Interval history: Patient is a 36-year-old white female with a history of nephrolithiasis. She was scheduled for right ESWL of a proximal right ureteral stone last Wednesday but she was febrile her white count was elevated and her procedure was canceled. She was admitted for pyelonephritis. Urine cultures prior to her procedure showed E. coli that was resistant to the Levaquin that she had been on. She is now on broad-spectrum antibiotics and her fevers have resolved and her white count is normalized. She has a right stent in good position. Exam Vital signs and Labs for Last 24 Hours: Temp Pulse Resp BP Pulse Ox 98.1 F 75 16 171/84 H 96 01/26/22 08:00 01/26/22 08:00 01/26/22 08:00 01/26/22 08:00 01/26/22 08:00 Laboratory Results - last 24 hr 01/26/22 05:58: WBC 7.2 D, RBC 4.37, Hgb 12.1 L, Hct 38.9, MCV 89.1, MCH 27.7, MCHC 31.1 L, RDW 14.6, Plt Count 383, MPV 8.4, Neut % (Auto) 64.7, Lymph % (Auto) 20.9, [place] % (Auto) 8.4, Eos % (Auto) 4.5, Baso % (Auto) 1.6, Neut # (Auto) 4.7, Lymph # (Auto) 1.5, [place] # (Auto) 0.6, Eos # (Auto) 0.3, Baso # (Auto) 0.1 01/26/22 05:58: Sodium 141, Potassium 4.1, Chloride 107, Carbon Dioxide 29, Anion Gap 9.1, BUN 14, Creatinine 0.80, Estimated Creat Clear 73, Estimated GFR 81, Est GFR ( Amer) 98, Glucose 134 H, Calcium 8.3 L I & O for Last 24 hours: Intake & Output 01/23/22 01/24/22 01/25/22 01/26/22 23:59 23:59 23:59 23:59 Intake Total 960 / 960 2370 / 2370 960 / 960 240 / 240 Output Total 400 / 400 800 / 800 1300 / 1900 600 / 600 Balance 560 / 560 1570 / 1570 -340 / -940 -360 / -360 Weight 115.383 kg 121.563 kg 120.656 kg 120 kg Microbiology Reports for the Last 24 Hours: Microbiology 01/23/22 09:10 Urine,Clean Catch Urine Culture - Final Escherichia coli - Constitutional no acute distress - *Routine HEENT Exam Head: Present: normocephalic Eye: Present: EOMI, PERRL ENT: Present: mucous membranes moist - *Routine Neck Exam Present: supple. Absent: lymphadenopathy - *Routine Respiratory Exam Absent: accessory muscle use - *Routine Cardiovascular Exam Absent: JVD - *Routine Abdominal Exam Absent: tenderness - *Routine Extremities Exam Absent: cyanosis, clubbing, edema - *Routine Skin Exam Present: warm. Absent: rash Assessment and Plan (1) Sepsis Status: Resolved Qualifiers: Sepsis type: Escherichia coli Sepsis acute organ dysfunction status: without acute organ dysfunction Qualified Code(s): A41.51 - Sepsis due to Escherichia coli [E. coli] Category: Medical Code(s): A41.9 - Sepsis, unspecified organism (2) Pyelonephritis Status: Acute Category: Medical Code(s): N12 - Tubulo-interstitial nephritis, not specified as acute or chronic (3) Ureteral calculus, right Status: Acute Category: Medical Code(s): N20.1 - Calculus of ureter Patient with a right proximal ureteral stone status post stent placement. Her pyelonephritis appears to be resolving and I will discuss ureteroscopy and stone extraction with her in the near future. (4) Ureteral calculus Status: Acute Category: Medical Code(s): N20.1 - Calculus of ureter (5) Class 3 obesity Status: Chronic Category: Medical Code(s): E66.9 - Obesity, unspecified (6) S/P ureteral stent placement Status: Acute Category: Surgical Code(s): Z96.0 - Presence of urogenital implants (7) Hypertension Status: Chronic Category: Medical Code(s): I10 - Essential (primary) hypertension (8) Anxiety Status: Chronic Category: Medical Code(s): F41.9 - Anxiety disorder, unspecified
== END 2022-01-26 16:01 | disposition home or self-care (01) | DRG 872 ==
LOC: ER 09:31 → 2ND 12:58
PROVIDERS: Internal Medicine Adolescent Medicine; Admitting Provider Internal Medicine Adolescent Medicine; Emergency Provider Emergency Medicine; Visit Provider Internal Medicine Adolescent Medicine
DX: A41.51 Sepsis due to Escherichia coli [E. coli] (principal); Z68.42 Body mass index [BMI] 45.0-49.9, adult; N20.1 Calculus of ureter; N10 Acute pyelonephritis; Z16.23 Resistance to quinolones and fluoroquinolones; E66.01 Morbid (severe) obesity due to excess calories; I10 Essential (primary) hypertension; F41.9 Anxiety disorder, unspecified; B37.9 Candidiasis, unspecified; F17.290 Nicotine dependence, other tobacco product, uncomplicated; E78.5 Hyperlipidemia, unspecified; M79.7 Fibromyalgia; F32.9 Major depressive disorder, single episode, unspecified
CPT/HCPCS: 36415; 74018; 74176; 80048; 80053; 81001; 82962; 83605; 83735; 84703; 85007; 85025; 87040; 87077; 87081; 87086; 87088; 87186; 96375; 99285; C9803; J0696; J1642; J2185; J3475; U0003; U0005

== ENCOUNTER 2022-02-02 14:10 | Emergency (ER) | payer OTHER, SELFPAY ==
[2022-02-02 14:11] VITALS: BP 187/100; PULSE 80; RESP 16; TEMP 36.9; O2SAT 98; BMI 41.5; BMI 48.8
[2022-02-02 15:15] LABS: Microscopic, Urine URINE MICROSCOPIC (MICROSCOPIC)
[2022-02-02 15:33] LABS: Appearance,Urine CLOUDY (Clear); Bilirubin,Urine Negative (Negative); Blood, Urine 3+ (Negative); Color,Urine YELLOW (Yellow); Glucose,Urine (UA) Negative (Negative); Ketones,Urine Negative (Negative); Leukocyte Esterase,Urine 2+ (Negative); Nitrate,Urine POSITIVE (Negative); PH,Urine 6.5 (5.0-8.5); Protein,Urine 2+ (Negative); Specific Gravity, Urine 1.015 (1.005-1.030); Urobilinogen,Urine 0.2 EU/dl (0.2)
[2022-02-02 16:13] LABS: RBC,Urine 20-50 #/hpf (0-3); Squamous Epithelial Cell,Urine Occasional #/hpf (0-5); WBC,Urine 20-50 #/hpf (0-3)
[2022-02-02 16:14] LABS: Amorphous Sediment,Urine 2+ /lpf; Bacteria,Urine 3+ /lpf
--- NOTE | 2022-02-02 16:49 | HMH.EDGENADL ---
ED Disposition Clinical Impression: Flank pain Disposition: Home, Self-Care Condition on Discharge: Good Additional Instructions: Please return to the ED with any new or worsening symptoms. Prescriptions: Oxycodone HCl [Oxycodone 5mg tab (IR)] 5 mg PO Q8 #12 tablet Transmission Status: Sent to [facility] Referrals: Landy Carroll [Primary Care Provider] - - Critical Care Critical Care Time: No Attestation: On 02/02/22, the high probability of a clinically significant, sudden or life threatening deterioration of the following system(s) required my full and direct attention, intervention and personal management. The time I documented below is in addition to time spent performing reported procedures but includes the following listed in this critical care notation. Medical Decision Making - Medical Records Medical records reviewed: Yes: I reviewed the patient's medical records. - Olu Inquiry Pt receiving controlled substance: Yes Olu was queried for this patient: Yes Risks and benefits of using a controlled substance: were discussed with pt by me Vital Signs: 02/02/22 14:11 Temperature 98.5 F Temperature Source Oral Pulse Rate [Right] 80 Respiratory Rate 16 Blood Pressure [Right Arm] 187/100 H Blood Pressure Mean [Right Arm] 129 Blood Pressure Source [Right Arm] Automatic Cuff Blood Pressure Position [Right Arm] Sitting 02 Sat by Pulse Oximetry 98 Oxygen Delivery Method Room Air - Lab Data Lab Results 02/02/22 14:35: Urine Color Yellow, Urine Appearance Cloudy, Urine pH 6.5, Ur Specific [place] 1.015, Urine Protein 2+, Urine Glucose (UA) Negative, Urine Ketones Negative, Urine Blood 3+, Urine Nitrate Positive, Urine Bilirubin Negative, Urine Urobilinogen 0.2, Ur Leukocyte Esterase 2+ A, Urine RBC 20-50, Urine WBC 20-50, Ur Squamous Epith Cells Occasional, Amorphous Sediment 2+, Urine Bacteria 3+ Orders (Tests/Meds): ED MEDICATIONS Generic Name Dose Route Start Last Admin Trade Name Freq PRN Reason Stop Dose Admin Oxycodone HCl 5 mg 02/02/22 16:28 02/02/22 16:33 Oxycodone 5mg Immediate Release Tablet PO 03/04/22 16:27 5 mg Q6HP PRN Administration Severe Pain Discontinued Medications Generic Name Dose Route Start Last Admin Trade Name Freq PRN Reason Stop Dose Admin Oxycodone/Acetaminophen 1 each 02/02/22 15:10 02/02/22 15:15 Oxycodone 5mg W/Apap 325mg Tablet PO 02/02/22 15:11 1 each ONCE ONE Administration ORDERS Category Date Time Status Urine Culture Stat Micro 02/02/22 14:35 Received Medical Decision Narrative: Patient is a 36-year-old female presented to the ED today with right-sided flank pain secondary to kidney stone, patient is overall well-appearing nurse evaluation, appears to be uncomfortable, will obtain urinalysis, and further evaluate with pain medication with 5 mg of oral oxycodone. Patient does not have any symptoms of sepsis, vital signs do not reflect sepsis either, urinalysis does show evidence of leukoesterase and bacteria, patient has 2 days left of Macrobid anyway, will continue on this treatment as her symptoms are mild worsening only of the pain from her existing kidney stone. No need for additional CT imaging as patient had multiple CTs to work-up this problem, and has scheduled follow-up with urology. Patient's pain is improved after initial 5 mg of oral oxycodone, cannot give Toradol or any other multimodal pain therapy secondary to allergy. Patient discharged stable condition with short course of opioid treatment, able to follow-up outpatient. Given return precautions to return to the ED with any new or worsening symptoms. General Adult HPI - General Chief complaint: PAIN Stated complaint: kidney stone pain Time Seen by Provider: 02/02/22 14:15 Mode of Arrival: Ambulatory Limitations: No Limitations Description of Symptoms (Recalled from ER Triage Doc. by RN): pt thinks her kidney stone has moved and
[2022-02-02 17:03] VITALS: BP 178/87; PULSE 84; RESP 16; TEMP 36.9; O2SAT 98
== END 2022-02-02 17:04 | disposition home or self-care (01) ==
PROVIDERS: Emergency Provider Student in an Organized Health Care Education/Training Program; PCP Internal Medicine
DX: N20.0 Calculus of kidney (principal)
CPT/HCPCS: 81001; 87086; 87088; 87186

== ENCOUNTER 2022-02-04 11:22 | Inpatient (IN) | payer OTHER, SELFPAY ==
[2022-02-04] VITALS (8 sets, daily range): BP systolic 149–163; BP diastolic 73–119; PULSE 115–139; RESP 18–20; TEMP 37.1–38.9; O2SAT 94–96; BMI 45.7; BMI 46.1
--- NOTE | 2022-02-04 11:28 | PC.NURSE ---
EVE Dillard at BS
--- NOTE | 2022-02-04 11:36 | CT_ITS ---
PROCEDURE INFORMATION: Exam: CT Abdomen And Pelvis Without Contrast Exam date and time: 02/04/2022 12:12 PM Age: 36 years old Clinical indication: Vomiting; Prior surgery; Surgery date: 1-6 months; Surgery type: Stone with stent placement; Additional info: Stone protocol please TECHNIQUE: Imaging protocol: Computed tomography of the abdomen and pelvis without contrast. Radiation optimization: All CT scans at this facility use at least one of these dose optimization techniques: automated exposure control; mA and/or kV adjustment per patient size (includes targeted exams where dose is matched to clinical indication); or iterative reconstruction. COMPARISON: CT ABDOMEN PELVIS W CON 01/14/2022 2:58 AM FINDINGS: Lungs: Mild linear atelectasis/fibrosis in the lung bases. Liver: Fatty infiltration of the liver. Gallbladder and bile ducts: Cholecystectomy. Pancreas: Normal. No ductal dilation. Spleen: Normal. No splenomegaly. Adrenal glands: Normal. No mass. Kidneys and ureters: There is a 9 mm nonobstructive calculus in the right lower renal pole, which is likely the same calculus that was previously in the right renal pelvis. Satisfactory position of the right renal stent mild fullness of the right intrarenal collecting system, less than was previously noted. Moderate nonspecific stranding is noted about the right ureter and kidney. The stranding around the right ureter is less than what was previously noted. Stomach and bowel: Mild colonic diverticulosis. Appendix: No evidence of appendicitis. Intraperitoneal space: Unremarkable. No free air. No significant fluid collection. Vasculature: Unremarkable. No abdominal aortic aneurysm. Lymph nodes: There are some mildly enlarged lymph nodes in the upper periaortic and aortocaval regions. Findings are nonspecific and could be reactive. A left periaortic lymph node measures up to 1.4 cm. Urinary bladder: Unremarkable as visualized. Reproductive: Hysterectomy. Bones/joints: Unremarkable. No acute fracture. Soft tissues: Small fat containing umbilical hernia. IMPRESSION: 1. There is a 9 mm nonobstructive calculus in the right lower renal pole, which is likely the same calculus that was previously in the right renal pelvis. Satisfactory position of the right renal stent mild fullness of the right intrarenal collecting system, less than was previously noted. Moderate nonspecific stranding is noted about the right ureter and kidney. The stranding around the right ureter is less than what was previously noted. 2. There are some mildly enlarged lymph nodes in the upper periaortic and aortocaval regions. Findings are nonspecific and could be reactive. A left periaortic lymph node measures up to 1.4 cm. 3. Fatty infiltration of the liver. 4. Other findings as detailed in the body of the report.
[2022-02-04 12:22] LABS: Basophils # 0.4 K/mm3 (0-0.2); Basophils % 1.8 % (0.1-2.0); Eosinophils # 0.1 K/mm3 (0.0-0.4); Eosinophils % 0.7 % (0.1-12.0); Hematocrit 39.4 % (37.0-47.0); Hemoglobin 13.4 g/dL (12.2-16.2); Lymphocytes # 0.9 K/mm3 (0.7-4.5); Lymphocytes % 4.6 % (10-50); Mean Corpuscular Volume 88.1 fl (81-99); Mean Platelet Volume 7.9 fl (7.4-10.4); Monocytes # 1.2 K/mm3 (0.1-1.0); Monocytes % 6.2 % (1.7-9.3); Neutrophils # 16.6 K/mm3 (1.8-7.8); Neutrophils % 86.6 % (37.0-80.0); Platelet Count 436 K/mm3 (142-424); Red Blood Count 4.47 M/mm3 (4.20-5.40); Red Cell Distribution Width 14.7 % (11.5-17.5); White Blood Count 19.2 K/mm3 (4.8-10.8)
[2022-02-04 12:25] LABS: MANUAL DIFFERENTIAL MANUAL DIFFERENTIAL (MANUAL DIFF)
[2022-02-04 12:26] LABS: Alanine Aminotransferase 37 U/L (12-78); Albumin Level 3.6 g/dl (3.5-5.0); Alkaline Phosphatase 99 U/L (38-126); Anion Gap 11.7 mEq/L (5-15); Aspartate Amino Transferase 44 U/L (14-36); Bilirubin,Total 1.1 mg/dl (0.2-1.3); Blood Urea Nitrogen 13 mg/dl (7-17); Calcium 8.3 mg/dl (8.4-10.2); Carbon Dioxide 23 mmol/L (22.0-30.0); Chloride 106 mmol/L (98-107); Creatinine Clearance Estimated 62 mL/min (50-200); Estimated Glomerular Filt Rate 63 ml/min (>60); GFR (African American) 76 ML/MIN (>60); Globulin 3.7 g/dL (1.3-3.2); Glucose 134 mg/dl (74-100); Lactic Acid 1.3 mmol/L (0.7-2.1); Potassium 3.7 mmoL/L (3.5-5.1); Sodium 137 mmol/L (136-145); Total Protein,Serum 7.3 g/dl (6.3-8.2)
[2022-02-04 12:35] LABS: HCG Qualitative, Serum Negative (Negative)
[2022-02-04 12:59] LABS: Lymphocytes % 6 % (10-50); Monocytes % 9 % (2-9); Neutrophils % 85 % (42-76); Total Cells Counted 100
[2022-02-04 13:00] LABS: Platelet Estimate Slight Increase; RBC Morphology Normal
--- NOTE | 2022-02-04 13:51 | PC.NURSE ---
[facility] transfer [facility] at this time
--- NOTE | 2022-02-04 13:54 | HMH.EDGENADL ---
ED Disposition Clinical Impression: Nephrolithiasis, Sepsis, UTI (urinary tract infection) Disposition: Admitted As Inpatient Condition on Discharge: Good - Critical Care Critical Care Time: Yes Attestation: On 02/04/22, the high probability of a clinically significant, sudden or life threatening deterioration of the following system(s) required my full and direct attention, intervention and personal management. The time I documented below is in addition to time spent performing reported procedures but includes the following listed in this critical care notation. Total Critical Care Time: 30 Vital system(s) involved:: Metabolic Failure My critical care processes included: Assessment & monitoring of V/S, Initial and Re-exams, Data Review/Interpretation, Coordinating Care, Medication Orders and management, Documentation Medical Decision Making - Medical Records Medical records reviewed: Yes: I reviewed the patient's medical records. - Olu Inquiry Pt receiving controlled substance: No Vital Signs: 02/04/22 11:46 02/04/22 14:12 02/04/22 14:36 Temperature 100.5 F H Temperature Source Oral Pulse Rate 124 H 119 H Pulse Rate [Left Radial] 139 H Respiratory Rate 20 Blood Pressure 149/87 H 153/85 H Blood Pressure [Right Arm] 153/119 H Blood Pressure Mean [Right Arm] 130 Blood Pressure Source Automatic Cuff Automatic Cuff Blood Pressure Source [Right Arm] Blood Pressure Position Sitting Sitting Blood Pressure Position [Right Arm] 02 Sat by Pulse Oximetry 95 95 94 L Oxygen Delivery Method Room Air Room Air Room Air 02/04/22 15:20 02/04/22 15:30 Temperature 100.5 F H 98.8 F Temperature Source Oral Pulse Rate 119 H Pulse Rate [Left Radial] 115 H Respiratory Rate 18 18 Blood Pressure 153/85 H Blood Pressure [Right Arm] 163/96 H Blood Pressure Mean [Right Arm] 118 Blood Pressure Source Blood Pressure Source [Right Arm] Automatic Cuff Blood Pressure Position Blood Pressure Position [Right Arm] Supine 02 Sat by Pulse Oximetry 95 Oxygen Delivery Method Room Air Room Air - Lab Data Lab results reviewed: Yes: I reviewed the patient's lab results. Lab Results 02/04/22 12:08: WBC 19.2 H, RBC 4.47, Hgb 13.4, Hct 39.4, MCV 88.1, MCH 30.0, MCHC 34.0, RDW 14.7, Plt Count 436 H, MPV 7.9, Neut % (Auto) 86.6 H, Lymph % (Auto) 4.6 L, [place] % (Auto) 6.2, Eos % (Auto) 0.7, Baso % (Auto) 1.8, Neut # (Auto) 16.6 H, Lymph # (Auto) 0.9, [place] # (Auto) 1.2 H, Eos # (Auto) 0.1, Baso # (Auto) 0.4 H, Total Counted 100, Neutrophils % (Manual) 85 H, Lymphocytes % (Manual) 6 L, Monocytes % (Manual) 9, Platelet Estimate Slight increase, RBC Morphology Normal 02/04/22 12:08: Sodium 137, Potassium 3.7, Chloride 106, Carbon Dioxide 23, Anion Gap 11.7, BUN 13, Creatinine 1.00, Estimated Creat Clear 62, Estimated GFR 63, Est GFR ( Amer) 76, Glucose 134 H, Calcium 8.3 L, Total Bilirubin 1.1, AST 44 H, ALT 37, Alkaline Phosphatase 99, Total Protein 7.3, Albumin 3.6, Globulin 3.7 H, Albumin/Globulin Ratio 1.0 L 02/04/22 12:08: Lactate 1.3 02/04/22 12:08: Serum HCG, Qual Negative 02/04/22 13:53: Urine Color Yellow, Urine Appearance Cloudy, Urine pH 6.0, Ur Specific [place] 1.020, Urine Protein 2+, Urine Glucose (UA) Negative, Urine Ketones Negative, Urine Blood 3+, Urine Nitrate Positive, Urine Bilirubin Negative, Urine Urobilinogen 0.2, Ur Leukocyte Esterase 3+ A, Urine RBC 50-100, Urine WBC 50-100, Ur Squamous Epith Cells Occasional, Urine Bacteria 4+ 02/04/22 13:53: SARS-CoV-2 (PCR) Not detected, Influenza A Untype (PCR) Not detected, Influenza Type B (PCR) Not detected Result diagrams: 02/04/22 12:08 02/04/22 12:08 Orders (Tests/Meds): ED MEDICATIONS Generic Name Dose Route Start Last Admin Trade Name Freq PRN Reason Stop Dose Admin Ceftriaxone Sodium 1 gm/ 50 mls @ 100 mls/hr 02/04/22 14:00 02/04/22 14:39 Sodium Chloride IV 02/18/22 13:59 100 mls/hr Q24H JUANA Administration Morphine Sulfate
--- NOTE | 2022-02-04 13:54 | PC.NURSE ---
patients urine sent to lab; covid swab sent to lab
--- NOTE | 2022-02-04 13:57 | PC.NURSE ---
[facility], she asked if pt wants to transfer or wished to stay here at [facility], went into room asked pt, Pt reports wishes to stay here r/t her urologist Dr. Acosta is here at [facility]. reported to Senia that pt wishes to be admitted here. Senia requested that we have pt fill out Refusal of transfer form and fax is to [phone]
--- NOTE | 2022-02-04 13:57 | PC.NURSE ---
ED MD speaking with Dr. Siddiqi at this time for possible admission
[2022-02-04 13:58] LABS: Microscopic, Urine URINE MICROSCOPIC (MICROSCOPIC)
[2022-02-04 14:00] LABS: Bilirubin,Urine Negative (Negative); Blood, Urine 3+ (Negative); Color,Urine YELLOW (Yellow); Coronavirus 19, PCR Not Detected (NotDetected); Glucose,Urine (UA) Negative (Negative); Influenza A, PCR Not Detected (NotDetected); Influenza B, PCR Not Detected (NotDetected); Ketones,Urine Negative (Negative); Leukocyte Esterase,Urine 3+ (Negative); Nitrate,Urine POSITIVE (Negative); Protein,Urine 2+ (Negative); Urobilinogen,Urine 0.2 EU/dl (0.2)
--- NOTE | 2022-02-04 14:05 | PC.NURSE ---
Spoke with Anna in care management regarding patient admission
--- NOTE | 2022-02-04 14:08 | PC.NURSE ---
refusal of transfer form signed by pt and [facility] at this time
--- NOTE | 2022-02-04 14:10 | PC.NURSE ---
pt will be OBS admission per Anna in care management
--- NOTE | 2022-02-04 14:10 | PC.NURSE ---
Called pharmacy for Rocephin dose
[2022-02-04 14:14] LABS: Appearance,Urine Cloudy (Clear)
[2022-02-04 14:21] LABS: Bacteria,Urine 4+ /lpf; RBC,Urine 50-100 #/hpf (0-3); Squamous Epithelial Cell,Urine Occasional #/hpf (0-5); WBC,Urine 50-100 #/hpf (0-3)
--- NOTE | 2022-02-04 15:06 | PC.NURSE ---
report called to susy yates on second floor at this time
[2022-02-05] VITALS: BP 141/92; PULSE 123; RESP 22; TEMP 36.8; O2SAT 96
[2022-02-05 04:00] VITALS: BP 144/80; PULSE 104; RESP 14; TEMP 36.9; O2SAT 95
[2022-02-05 04:31] VITALS: BMI 46.5
--- NOTE | 2022-02-05 05:05 | PC.NURSE ---
pt requiring pain meds through the night for pain rated 8 on scale 1-10 of right sides abdominal pain, pt urinating without difficulties, pt states urine was discolored last void and mucous in it, pt admitted with portacath in place manager surgery to right cw, pt afebrile this shift, v/s stable, no other issues noted this shift.
--- NOTE | 2022-02-05 07:14 | HMH.PHAVTE ---
[facility] Pharmacy VTE Monitoring - Patient Demographics Admission date: 02/04/22 Report Date: 02/05/22 Time: 07:14 Allergies/Adverse Reactions: Patient Allergies Penicillins Allergy (Severe, Verified 02/03/22 13:58) Hives gatifloxacin [From TEQUIN] Allergy (Mild, Verified 02/03/22 13:58) ketorolac [From TORADOL] Allergy (Mild, Verified 02/03/22 13:58) aztreonam [AZTREONAM] Allergy (Unknown, Verified 02/03/22 13:58) NA-NAUSEA/VOMITING cefaclor [CEFACLOR] Allergy (Unknown, Verified 02/03/22 13:58) codeine [CODEINE] Allergy (Unknown, Verified 02/03/22 13:58) BLEEDING OF EYES AND NOSE doxycycline [DOXYCYCLINE] Allergy (Unknown, Verified 02/03/22 13:58) midazolam [From VERSED] Allergy (Unknown, Verified 02/03/22 13:58) ondansetron [From ZOFRAN ( HYDROCHLORIDE)] Allergy (Unknown, Verified 02/03/22 13:58) sulfamethoxazole [From BACTRIM] Allergy (Unknown, Verified 02/03/22 13:58) trimethoprim [From BACTRIM] Allergy (Unknown, Verified 02/03/22 13:58) ibuprofen Allergy (Verified 02/03/22 13:58) tramadol Allergy (Verified 02/03/22 13:58) Height: 1.57 m Weight: 114.577 kg Patient Problems: Current Active Problems Urinary tract infection (Acute) Nephrolithiasis (Acute) Sepsis (Acute) - VTE Risk Labs: VTE Related Lab Results Hgb 13.4 g/dL (12.2-16.2) 02/04/22 12:08 Hct 39.4 % (37.0-47.0) 02/04/22 12:08 Plt Count 436 K/mm3 (142-424) H 02/04/22 12:08 BUN 13 mg/dl (7-17) 02/04/22 12:08 Creatinine 1.00 mg/dl (0.52-1.04) 02/04/22 12:08 Estimated Creat Clear 62 mL/min (50-200) 02/04/22 12:08 - Prophylaxis VTE Prophylaxis Ordered?: Yes Types of VTE Prophylaxis: TEDS Knee High Location of Applied Device: Bilateral Lower Extremeties
--- NOTE | 2022-02-05 07:36 | HMH.HP ---
*Admission Date: 02/04/22 *Chief complaint: Fever/flank pain *History of present illness: Medical Decision Narrative: Julio is a 36-year-old female past medical history for nephrolithiasis and recent admission for sepsis secondary to renal stone presenting to the emergency department with headache and progressively worsening right-sided flank pain. Patient is febrile on arrival to 100.5 but otherwise hemodynamically stable. On physical exam patient has significant right CVA tenderness and appears uncomfortable. Abdomen is nonperitoneal ache no rebound or guarding. Patient nontoxic-appearing. Basic labs, lactic acid, UA, lipase, test are obtained for further evaluation results are remarkable for an elevated leukocytosis of 19 significantly higher than prior discharge. UA is also positive for urinary tract infection. CT abdomen and pelvis without contrast remarkable for a 9 mm stone with moderate hydronephrosis. Patient fits sepsis criteria likely 2/2 to urosepsis. Patient is started on Rocephin IV 1g and is admitted to medicine for further management. Urology consult placed. Above note per ER. Patient had been scheduled for lithotripsy but given her fever and pain was deemed by urology to be a poor candidate. Return to the ER as noted above and met criteria for sepsis. Admitted for further antibiotic therapy, fluid resuscitation, monitoring of kidney function and urology consultation. [facility] History I have reviewed the patient's past medical history: Yes 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: Reports:: Anxiety, Asthma, Depression, Gastroesophageal Reflux Disease(GERD), Hyperlipidemia, Hypertension, Kidney Stones, Migraine Denies:: Cancer, Diabetes Mellitus Type 1, Diabetes Mellitus Type 2, Internal Pacemaker, MRSA, Seizures *Have you ever received a pneumonia vaccine?: No *Have you received a flu vaccine this season?: No Other 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: Reports: Fibromyalgia, Other. Denies: Blood Transfusion Reaction Laterality Cases: Left: Other, Bilateral: Myringotomy (Ear Tubes), Tonsillectomy Other Surgeries: Yes: No Previous Surgery, Cholecystectomy, Colonoscopy, Hernia Repair, Hysterectomy-Total, Ureter Stent, Other. No: Pacemaker Amputation: No Fractures: Yes (Left leg ORIF) - *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 Last grade of school completed: High school graduate Smoking Status: Current every day smoker Tobacco Type: smokeless tobacco # Packs/Day (cigarettes): 0 Alcohol Intake: never Alcohol Intake Frequency:: holidays/special occasions only Substance Use Type: denies use *Occupational Status:: disabled Housing: house Household Members: none *Travel in the last 8 weeks: None - Psychiatric History Pschychiatric History:: Reports:: Anxiety, Depression, Post Traumatic Stress Disorder Family Hx:: Unable to obtain Review of Systems - Review of Systems Review of systems:: pertinent systems reviewed and negative unless documented below - *Neurologic Reports headache(s) Meds Home Medications Medication Instructions Recorded Confirmed Type paroxetine HCl 40 mg tablet 60 mg PO DAILY 10/21/17 02/03/22 History Tizanidine HCl [Zanaflex 4mg 4 mg PO TIDP PRN 03/15/18 02/03/22 History tab] Losartan Potassium [Cozaar 50mg 50 mg PO DAILY 02/03/21 02/03/22 History Tablets] Pregabalin [Lyrica 100mg Cap] 200 mg PO BID 04/30/21 02/03/22 History Oxybutynin Chloride [Oxybutynin 10 mg PO DAILY 01/14/22 02/03/22 History Chloride ER] Promethazine HCl [Phenergan 25mg 25 mg PO Q6HP PRN 01/23/22 02/03/22 History tab] Promethazine HCl [Phenergan 12.5mg 12.5 mg PO Q8H PRN #12 tab 02/02/22 02/03/22 Rx tablet] Oxycodone HCl [Oxycodone 5mg tab 5 mg PO Q8 02/03/22 02/03/22 History (IR)] Allergies Allergy/AdvReac Type Severity Reaction Status Date / Time Penicillins Allergy Severe Hives Verified 02/03/22 13:58 gatifloxacin [From TEQUIN] Allergy Mild Verified 02/03/22 13:58 ketorolac [From TORADOL] Allergy Mild Verified 02/03/22 13:58 aztreonam [A
[2022-02-05 08:00] VITALS: BP 154/98; PULSE 109; RESP 14; TEMP 37.3; O2SAT 94
--- NOTE | 2022-02-05 08:22 | HMH.ACPN2 ---
Internal Medicine - PN: Subj *Date: 02/05/22 *Time: 08:22 Interval history: No significant events overnight, patient complains of pain and nausea but it is seemingly well controlled with morphine. Exam Vital signs and Labs for Last 24 Hours: Temp Pulse Resp BP Pulse Ox 98.4 F 104 H 14 144/80 H 95 02/05/22 04:00 02/05/22 04:00 02/05/22 04:00 02/05/22 04:00 02/05/22 04:00 Laboratory Results - last 24 hr 02/04/22 12:08: WBC 19.2 H, RBC 4.47, Hgb 13.4, Hct 39.4, MCV 88.1, MCH 30.0, MCHC 34.0, RDW 14.7, Plt Count 436 H, MPV 7.9, Neut % (Auto) 86.6 H, Lymph % (Auto) 4.6 L, [place] % (Auto) 6.2, Eos % (Auto) 0.7, Baso % (Auto) 1.8, Neut # (Auto) 16.6 H, Lymph # (Auto) 0.9, [place] # (Auto) 1.2 H, Eos # (Auto) 0.1, Baso # (Auto) 0.4 H, Total Counted 100, Neutrophils % (Manual) 85 H, Lymphocytes % (Manual) 6 L, Monocytes % (Manual) 9, Platelet Estimate Slight increase, RBC Morphology Normal 02/04/22 12:08: Sodium 137, Potassium 3.7, Chloride 106, Carbon Dioxide 23, Anion Gap 11.7, BUN 13, Creatinine 1.00, Estimated Creat Clear 62, Estimated GFR 63, Est GFR ( Amer) 76, Glucose 134 H, Calcium 8.3 L, Total Bilirubin 1.1, AST 44 H, ALT 37, Alkaline Phosphatase 99, Total Protein 7.3, Albumin 3.6, Globulin 3.7 H, Albumin/Globulin Ratio 1.0 L 02/04/22 12:08: Lactate 1.3 02/04/22 12:08: Serum HCG, Qual Negative 02/04/22 13:53: Urine Color Yellow, Urine Appearance Cloudy, Urine pH 6.0, Ur Specific [place] 1.020, Urine Protein 2+, Urine Glucose (UA) Negative, Urine Ketones Negative, Urine Blood 3+, Urine Nitrate Positive, Urine Bilirubin Negative, Urine Urobilinogen 0.2, Ur Leukocyte Esterase 3+ A, Urine RBC 50-100, Urine WBC 50-100, Ur Squamous Epith Cells Occasional, Urine Bacteria 4+ 02/04/22 13:53: SARS-CoV-2 (PCR) Not detected, Influenza A Untype (PCR) Not detected, Influenza Type B (PCR) Not detected I & O for Last 24 hours: Intake & Output 02/02/22 02/03/22 02/04/22 02/05/22 11:59 11:59 11:59 11:59 Intake Total 1242 / 1242 Output Total 700 / 700 Balance 542 / 542 Weight 250 lb 252 lb 9.6 oz Narrative: Alert, pleasant. Lungs clear, heart rate regular. Abdomen soft, tenderness in the left flank and left CVA area but no rebound or guarding. No distal edema. Assessment and Plan (1) Nephrolithiasis Status: Acute Category: Medical Code(s): N20.0 - Calculus of kidney (2) Sepsis Status: Acute Category: Medical Code(s): A41.9 - Sepsis, unspecified organism (3) Urinary tract infection Status: Acute Category: Medical Code(s): N39.0 - Urinary tract infection, site not specified - Assessment and plan all Dx Assessment and Plan for all problems:: Continue antibiotics. Patient's vital sign parameters are improved after initial admission for sepsis. Await urology consultation.
[2022-02-05 09:19] LABS: Basophils # 0.3 K/mm3 (0-0.2); Eosinophils # 0.1 K/mm3 (0.0-0.4); Eosinophils % 0.5 % (0.1-12.0); Hematocrit 36.7 % (37.0-47.0); Hemoglobin 12.3 g/dL (12.2-16.2); Lymphocytes # 1.2 K/mm3 (0.7-4.5); Lymphocytes % 8.2 % (10-50); Mean Corpuscular HGB Conc 33.5 g/dL (31.8-35.4); Mean Corpuscular Hemoglobin 29.4 pg (27.0-31.2); Mean Corpuscular Volume 87.8 fl (81-99); Mean Platelet Volume 8.1 fl (7.4-10.4); Monocytes # 1.3 K/mm3 (0.1-1.0); Monocytes % 8.8 % (1.7-9.3); Neutrophils # 11.9 K/mm3 (1.8-7.8); Neutrophils % 80.4 % (37.0-80.0); Platelet Count 375 K/mm3 (142-424); Red Blood Count 4.18 M/mm3 (4.20-5.40); Red Cell Distribution Width 14.6 % (11.5-17.5); White Blood Count 14.8 K/mm3 (4.8-10.8)
[2022-02-05 09:32] LABS: Alanine Aminotransferase 39 U/L (12-78); Albumin Level 3.3 g/dl (3.5-5.0); Albumin/Globulin Ratio 0.9 (1.1-1.8); Alkaline Phosphatase 98 U/L (38-126); Anion Gap 10.6 mEq/L (5-15); Aspartate Amino Transferase 35 U/L (14-36); Bilirubin,Total 0.3 mg/dl (0.2-1.3); Blood Urea Nitrogen 14 mg/dl (7-17); Calcium 8.5 mg/dl (8.4-10.2); Carbon Dioxide 28 mmol/L (22.0-30.0); Chloride 105 mmol/L (98-107); Creatinine Clearance Estimated 65 mL/min (50-200); Estimated Glomerular Filt Rate 71 ml/min (>60); GFR (African American) 86 ML/MIN (>60); Globulin 3.6 g/dL (1.3-3.2); Glucose 123 mg/dl (74-100); Potassium 3.6 mmoL/L (3.5-5.1); Sodium 140 mmol/L (136-145); Total Protein,Serum 6.9 g/dl (6.3-8.2)
--- NOTE | 2022-02-05 09:32 | HMH.PHAINT ---
MEDICATION RECONCILIATION COMPLETED ON PATIENT USING EXTERNAL FILL HISTORY FROM PHARMACY, WILLIS REPORT, AND DISCHARGE SUMMARY FROM PREVIOUS ADMISSION. -RAY BAKERD
--- NOTE | 2022-02-05 10:43 | PC.NURSE ---
rounded on patient and updated on new scheduled surgery date with dr ramsey. patient has no concerns about stay or questions about plan of care and meds. did request for staff to call patient friend linsey destini and update her that she was okay but unable to talk on phone because of a headache. patient friend/person to notify was called and updated per her request.
[2022-02-05 12:00] LABS: POC Glucose,Bedside 112 (70-110)
--- NOTE | 2022-02-05 14:53 | HMH.CONS ---
*Admission Date: 02/04/22 *Reason for consult:: Pyelonephritis *History of present illness: Patient is a 36-year-old white female with a history of nephrolithiasis. Was admitted yesterday with symptoms of headache, fevers and right-sided flank pain. Her recent urologic history is notable for a right ureteral stone status post stent placement and then scheduled for ESWL but on the day of ESWL on January 23 she was febrile and had pyelonephritis at that time. She was admitted at that time for IV antibiotics as her white count was elevated to 16.8. Her urine culture at that time grew E. coli which was resistant to the Levaquin that she was recently on. She she was discharged home on Macrobid and returned yesterday with the above symptoms. His CT scan was repeated which showed a right ureteral stent in good position and the previously noted right proximal ureteral stone had refluxed back into the right lower pole there is no evidence of calcifications along the course of the ureter. Patient has been struggling with stent colic since the stent was placed. Her urosepsis may be related to reflux through the stent. Her white count has improved on admission to 14,000. Her urine cultures growing gram-negative rods with ID pending. [facility] History 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: Reports:: Anxiety, Asthma, Depression, Gastroesophageal Reflux Disease(GERD), Hyperlipidemia, Hypertension, Kidney Stones, Migraine Denies:: Cancer, Diabetes Mellitus Type 1, Diabetes Mellitus Type 2, Internal Pacemaker, MRSA, Seizures *Have you ever received a pneumonia vaccine?: No *Have you received a flu vaccine this season?: No Other 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: Reports: Fibromyalgia, Other. Denies: Blood Transfusion Reaction Laterality Cases: Left: Other, Bilateral: Myringotomy (Ear Tubes), Tonsillectomy Other Surgeries: Yes: No Previous Surgery, Cholecystectomy, Colonoscopy, Hernia Repair, Hysterectomy-Total, Ureter Stent, Other. No: Pacemaker Amputation: No Fractures: Yes (Left leg ORIF) - *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 Last grade of school completed: High school graduate Smoking Status: Current every day smoker Tobacco Type: smokeless tobacco # Packs/Day (cigarettes): 0 Alcohol Intake: never Alcohol Intake Frequency:: holidays/special occasions only Substance Use Type: denies use *Occupational Status:: disabled Housing: house Household Members: none *Travel in the last 8 weeks: None - Psychiatric History Pschychiatric History:: Reports:: Anxiety, Depression, Post Traumatic Stress Disorder Family Hx:: Unable to obtain Review of Systems - Review of Systems Review of systems:: pertinent systems reviewed and negative unless documented below - *Neurologic Reports headache(s) Meds Home Medications Medication Instructions Recorded Confirmed Type paroxetine HCl 40 mg tablet 60 mg PO DAILY 10/21/17 02/05/22 History Tizanidine HCl [Zanaflex 4mg 4 mg PO TIDP PRN 03/15/18 02/05/22 History tab] Losartan Potassium [Cozaar 50mg 50 mg PO DAILY 02/03/21 02/05/22 History Tablets] Oxybutynin Chloride [Oxybutynin 10 mg PO DAILY 01/14/22 02/05/22 History Chloride ER] Oxycodone HCl/Acetaminophen 1 each PO Q4HP PRN 02/05/22 02/05/22 History [Oxycodone-Acetaminophen 5-325] Pregabalin [Lyrica 150mg Cap] 150 mg PO BID 02/05/22 02/05/22 History Promethazine HCl [Phenergan 12.5mg 12.5 mg PO Q8HP PRN 02/05/22 02/05/22 History tablet] nitrofurantoin macrocrystaL 100 mg PO BID 02/05/22 02/05/22 History [Macrodantin 100mg capsule] Allergies Allergy/AdvReac Type Severity Reaction Status Date / Time Penicillins Allergy Severe Hives Verified 02/03/22 13:58 gatifloxacin [From TEQUIN] Allergy Mild Verified 02/03/22 13:58 ketorolac [From TORADOL] Allergy Mild Verified 02/03/22 13:58 aztreonam [AZTREONAM] Allergy Unknown NA-NAUSEA/V Verified 02/03/22 13:58 OMITING cefaclor [CEFACLOR] Allergy Unknown Verified 02/03/22 13:58 codeine [CODEINE] Allergy Unknown BLEEDING Verified 02/03/22 13:58
[2022-02-05 15:18] VITALS: BMI 46.5
[2022-02-05 16:00] VITALS: BP 156/94; PULSE 94; RESP 14; TEMP 37.3; O2SAT 98
--- NOTE | 2022-02-05 16:25 | PC.NURSE ---
Pt is alert and oriented x4. Lungs are clear, bowel sounds active x4. She has complained of abd/flank pain intermittently. Morphine administered w/relief noted on reassessment. Stent removed at bedside per Dr Acosta. Pt tolerated well. Low grade fever of 99.2 noted t/o shift. Tylenol administered this am for pt report of migraine. She was resting w/her eyes closed on reassessment. Bed is locked and in the lowest position, call light within reach.
[2022-02-05 20:00] VITALS: PULSE 110; O2SAT 95
[2022-02-05 20:30] VITALS: BP 175/100; PULSE 110; RESP 21; TEMP 38.7; O2SAT 95
[2022-02-06 04:00] VITALS: BP 139/82; PULSE 96; RESP 21; TEMP 36.8; O2SAT 95
--- NOTE | 2022-02-06 04:00 | PC.NURSE ---
pt requiring pain meds q2 to 3 hours for pain rated 8; pt c/o migraines and was medicated with ubrelvy x1 dose with some relief, urine daisha and cloudy, dressing changed around [facility] this shift, pt was febrile 101.6 at start of shift and medicated with tylenol. VSS, will continue to monitor.
[2022-02-06 05:00] VITALS: BMI 46.5
[2022-02-06 06:51] LABS: Basophils # 0.1 K/mm3 (0-0.2); Basophils % 1.3 % (0.1-2.0); Eosinophils # 0.2 K/mm3 (0.0-0.4); Eosinophils % 2.1 % (0.1-12.0); Hematocrit 37.2 % (37.0-47.0); Hemoglobin 12.5 g/dL (12.2-16.2); Lymphocytes # 1.8 K/mm3 (0.7-4.5); Lymphocytes % 17.6 % (10-50); Mean Corpuscular HGB Conc 33.5 g/dL (31.8-35.4); Mean Corpuscular Hemoglobin 29.9 pg (27.0-31.2); Mean Corpuscular Volume 89.2 fl (81-99); Mean Platelet Volume 8.2 fl (7.4-10.4); Monocytes # 0.8 K/mm3 (0.1-1.0); Monocytes % 8.4 % (1.7-9.3); Neutrophils # 7.1 K/mm3 (1.8-7.8); Neutrophils % 70.6 % (37.0-80.0); Platelet Count 415 K/mm3 (142-424); Red Blood Count 4.17 M/mm3 (4.20-5.40); Red Cell Distribution Width 14.4 % (11.5-17.5)
[2022-02-06 07:00] LABS: Anion Gap 8.9 mEq/L (5-15); Blood Urea Nitrogen 12 mg/dl (7-17); Calcium 8.7 mg/dl (8.4-10.2); Carbon Dioxide 32 mmol/L (22.0-30.0); Chloride 105 mmol/L (98-107); Creatinine Clearance Estimated 73 mL/min (50-200); Estimated Glomerular Filt Rate 81 ml/min (>60); GFR (African American) 98 ML/MIN (>60); Glucose 105 mg/dl (74-100); Potassium 3.9 mmoL/L (3.5-5.1); Sodium 142 mmol/L (136-145)
--- NOTE | 2022-02-06 07:29 | HMH.ACPN2 ---
Internal Medicine - PN: Subj *Date: 02/06/22 *Time: 10:02 Interval history: Patient continues to have pain overnight. Last fever at approximately 8 PM. Fever seems to have broken at this time. White count this morning normal on labs. Tolerating fair p.o. intake. Exam Vital signs and Labs for Last 24 Hours: Temp Pulse Resp BP Pulse Ox 98.3 F 96 H 21 139/82 95 02/06/22 04:00 02/06/22 04:00 02/06/22 04:00 02/06/22 04:00 02/06/22 04:00 Laboratory Results - last 24 hr 02/04/22 13:53: Urine Color Yellow, Urine Appearance Cloudy, Urine pH 6.0, Ur Specific [place] 1.020, Urine Protein 2+, Urine Glucose (UA) Negative, Urine Ketones Negative, Urine Blood 3+, Urine Nitrate Positive, Urine Bilirubin Negative, Urine Urobilinogen 0.2, Ur Leukocyte Esterase 3+ A, Urine RBC 50-100, Urine WBC 50-100, Ur Squamous Epith Cells Occasional, Urine Bacteria 4+ 02/05/22 09:00: WBC 14.8 H, RBC 4.18 L, Hgb 12.3, Hct 36.7 L, MCV 87.8, MCH 29.4, MCHC 33.5, RDW 14.6, Plt Count 375, MPV 8.1, Neut % (Auto) 80.4 H, Lymph % (Auto) 8.2 L, [place] % (Auto) 8.8, Eos % (Auto) 0.5, Baso % (Auto) 2.0, Neut # (Auto) 11.9 H, Lymph # (Auto) 1.2, [place] # (Auto) 1.3 H, Eos # (Auto) 0.1, Baso # (Auto) 0.3 H 02/05/22 09:00: Sodium 140, Potassium 3.6, Chloride 105, Carbon Dioxide 28, Anion Gap 10.6, BUN 14, Creatinine 0.90, Estimated Creat Clear 65, Estimated GFR 71, Est GFR ( Amer) 86, Glucose 123 H, Calcium 8.5, Total Bilirubin 0.3, AST 35, ALT 39, Alkaline Phosphatase 98, Total Protein 6.9, Albumin 3.3 L, Globulin 3.6 H, Albumin/Globulin Ratio 0.9 L 02/05/22 11:52: POC Glucose 112 H 02/06/22 06:20: WBC 10.0 D, RBC 4.17 L, Hgb 12.5, Hct 37.2, MCV 89.2, MCH 29.9, MCHC 33.5, RDW 14.4, Plt Count 415, MPV 8.2, Neut % (Auto) 70.6, Lymph % (Auto) 17.6, [place] % (Auto) 8.4, Eos % (Auto) 2.1, Baso % (Auto) 1.3, Neut # (Auto) 7.1, Lymph # (Auto) 1.8, [place] # (Auto) 0.8, Eos # (Auto) 0.2, Baso # (Auto) 0.1 02/06/22 06:20: Sodium 142, Potassium 3.9, Chloride 105, Carbon Dioxide 32 H, Anion Gap 8.9, BUN 12, Creatinine 0.80, Estimated Creat Clear 73, Estimated GFR 81, Est GFR ( Amer) 98, Glucose 105 H, Calcium 8.7 I & O for Last 24 hours: Intake & Output 02/03/22 02/04/22 02/05/22 02/06/22 23:59 23:59 23:59 23:59 Intake Total 120 / 120 1726 / 1846 1545 / 1545 Output Total 1400 / 1401 751 / 751 Balance 120 / 120 326 / 445 794 / 794 Weight 114.504 kg 114.58 kg 114.668 kg Microbiology Reports for the Last 24 Hours: Microbiology 02/04/22 14:08 Blood Blood Culture - Preliminary 02/04/22 14:08 Blood Blood Culture - Preliminary 02/04/22 13:53 Urine,Clean Catch Urine Culture - Preliminary Gram Negative Rods - Constitutional no acute distress, morbidly obese - *Routine HEENT Exam Head: Present: normocephalic Eye: Present: EOMI, PERRL ENT: Present: mucous membranes moist Comments: hirsutism - *Routine Neck Exam Present: supple. Absent: lymphadenopathy - *Routine Respiratory Exam Present: CTA bilaterally - *Routine Cardiovascular Exam Present: RRR - *Routine Abdominal Exam Present: soft, normoactive bowel sounds. Absent: tenderness - *Routine Extremities Exam Absent: cyanosis, clubbing, edema - *Routine Skin Exam Present: warm. Absent: rash - *Routine Neurological Exam Present: alert, oriented X3 Assessment and Plan (1) Nephrolithiasis Status: Acute Category: Medical Code(s): N20.0 - Calculus of kidney (2) Sepsis Status: Acute Category: Medical Code(s): A41.9 - Sepsis, unspecified organism (3) Urinary tract infection Status: Acute Category: Medical Code(s): N39.0 - Urinary tract infection, site not specified (4) Anxiety Status: Chronic Category: Medical Code(s): F41.9 - Anxiety disorder, unspecified (5) Class 3 obesity Status: Chronic Category: Medical Code(s): E66.9 - Obesity, unspecified (6) Hypertension Status: Chronic Category: Medica
[2022-02-06 08:00] VITALS: BP 164/110; PULSE 92; RESP 20; TEMP 36.8; O2SAT 94
[2022-02-06 16:00] VITALS: BP 148/88; PULSE 94; RESP 18; TEMP 36.9; O2SAT 96
[2022-02-06 19:35] VITALS: BP 149/108; PULSE 89; RESP 20; TEMP 36.8; O2SAT 94
[2022-02-06 20:00] VITALS: O2SAT 94
[2022-02-07 04:00] VITALS: BP 149/108; PULSE 84; RESP 20; TEMP 36.7; O2SAT 95
[2022-02-07 05:00] VITALS: BMI 46.5
[2022-02-07 07:23] LABS: Anion Gap 8.9 mEq/L (5-15); Blood Urea Nitrogen 16 mg/dl (7-17); Calcium 8.7 mg/dl (8.4-10.2); Carbon Dioxide 34 mmol/L (22.0-30.0); Chloride 104 mmol/L (98-107); Creatinine Clearance Estimated 73 mL/min (50-200); Estimated Glomerular Filt Rate 81 ml/min (>60); GFR (African American) 98 ML/MIN (>60); Glucose 134 mg/dl (74-100); Potassium 3.9 mmoL/L (3.5-5.1); Sodium 143 mmol/L (136-145)
[2022-02-07 07:28] LABS: Basophils # 0.2 K/mm3 (0-0.2); Basophils % 2.2 % (0.1-2.0); Eosinophils # 0.3 K/mm3 (0.0-0.4); Eosinophils % 3.1 % (0.1-12.0); Hematocrit 37.8 % (37.0-47.0); Hemoglobin 12.5 g/dL (12.2-16.2); Lymphocytes # 1.6 K/mm3 (0.7-4.5); Lymphocytes % 19.3 % (10-50); Mean Corpuscular HGB Conc 33.1 g/dL (31.8-35.4); Mean Corpuscular Volume 87.6 fl (81-99); Mean Platelet Volume 8.2 fl (7.4-10.4); Monocytes # 0.4 K/mm3 (0.1-1.0); Monocytes % 5.5 % (1.7-9.3); Neutrophils # 5.6 K/mm3 (1.8-7.8); Neutrophils % 69.9 % (37.0-80.0); Platelet Count 466 K/mm3 (142-424); Red Blood Count 4.31 M/mm3 (4.20-5.40); Red Cell Distribution Width 14.5 % (11.5-17.5)
--- NOTE | 2022-02-07 07:36 | HMH.DCSUM ---
General - General Admission date:: 02/04/22 Discharge date: 02/07/22 HPI HPI: Medical Decision Narrative: Julio is a 36-year-old female past medical history for nephrolithiasis and recent admission for sepsis secondary to renal stone presenting to the emergency department with headache and progressively worsening right-sided flank pain. Patient is febrile on arrival to 100.5 but otherwise hemodynamically stable. On physical exam patient has significant right CVA tenderness and appears uncomfortable. Abdomen is nonperitoneal ache no rebound or guarding. Patient nontoxic-appearing. Basic labs, lactic acid, UA, lipase, test are obtained for further evaluation results are remarkable for an elevated leukocytosis of 19 significantly higher than prior discharge. UA is also positive for urinary tract infection. CT abdomen and pelvis without contrast remarkable for a 9 mm stone with moderate hydronephrosis. Patient fits sepsis criteria likely 2/2 to urosepsis. Patient is started on Rocephin IV 1g and is admitted to medicine for further management. Urology consult placed. Above note per ER. Patient had been scheduled for lithotripsy but given her fever and pain was deemed by urology to be a poor candidate. Return to the ER as noted above and met criteria for sepsis. Admitted for further antibiotic therapy, fluid resuscitation, monitoring of kidney function and urology consultation. Hospital Course Hospital Course: Patient was admitted, placed on broad-spectrum antibiotics. Urine was cultured and showed E. coli, resistant to quinolones. She was placed on appropriate antibiotics and over the next couple of days began to feel better. Urology consultation was obtained, felt that infection needed to be cleared up before stone would be definitively extracted her stent removed. Patient was treated for her flank pain that is a combination of stone, stent and infection inflammation, and felt better, did require some Phenergan for nausea. Over the last 48 hours she been afebrile, blood cultures been negative. Patient is allergic to penicillins, so we will discharge her on 2 weeks of cefdinir twice daily, Phenergan for nausea, and in regards to pain she has an allergy to Toradol which has been misinterpreted as tramadol. She is not truly allergic to tramadol so we will do this for pain control as an outpatient. She will follow-up with urology. She is somewhat interested in a second opinion at the [facility] given the fact that the stone has been in place for 4 weeks. We will provide her with images and consult note so that [facility] from urology if indicated. Objective Vital signs: Temp Pulse Resp BP Pulse Ox 98.0 F 84 20 149/108 H 95 02/07/22 04:00 02/07/22 04:00 02/07/22 04:00 02/07/22 04:00 02/07/22 04:00 no acute distress - *Routine HEENT Exam Head: Present: normocephalic Eye: Present: EOMI, PERRL ENT: Present: mucous membranes moist - *Routine Neck Exam Present: supple - *Routine Respiratory Exam Present: CTA bilaterally - *Routine Cardiovascular Exam Present: RRR - *Routine Abdominal Exam Present: soft, normoactive bowel sounds, tenderness Comments: Mild left lower quadrant and left flank tenderness, improved over admission - *Routine Extremities Exam Absent: cyanosis, clubbing, edema - *Routine Skin Exam Present: warm. Absent: rash Comments: Developing yeast appearing rash underneath both breasts - Detailed Eye Exam Eyelids: Bilateral normal inspection Results Labs on day of discharge: Labs from last 24 hours 02/07/22 02/07/22 07:05 07:05 WBC 8.0 RBC 4.31 Hgb 12.5 Hct 37.8 MCV 87.6 MCH 29.0 MCHC 33.1 RDW 14.5 Plt Count 466 H MPV 8.2 Neut % (Auto) 69.9 Lymph % (Auto) 19.3 [place] % (Auto) 5.5 Eos % (Auto) 3.1 Baso % (Auto) 2.2 H Neut # (Auto) 5.6 Lymph # (Auto) 1.6 [place] # (Auto)
[2022-02-07 08:00] VITALS: BP 166/99; PULSE 97; RESP 16; TEMP 36.9; O2SAT 93
--- NOTE | 2022-02-07 12:49 | PC.NURSE ---
Patient's port de-accessed and heparin locked before discharge at 1135. Patient discharged at 1140. Patient then called floor after discharge to inquire about pain medication not being fully covered on insurance. Dr. Siddiqi made aware but no changes made. Patient called and informed of no changes from Dr. Siddiqi. Patient then stated she would try to find $11 for copay.
--- NOTE | 2022-02-10 17:02 | CARE MANAGER ---
Patient called back related to follow up call from discharge. She states she is feeling lethargic and weak but thinks it is just her recovering. She did moss picker her medication and is taking as prescribed. She states she missed her appointment with Dr. Acosta but will call them tomorrow to reschedule.
== END 2022-02-07 11:40 | disposition home or self-care (01) | DRG 872 ==
LOC: ER 11:28 → 2ND 15:43
PROVIDERS: Internal Medicine Adolescent Medicine; Admitting Provider Internal Medicine Adolescent Medicine; Emergency Provider Student in an Organized Health Care Education/Training Program; PCP Internal Medicine; Visit Provider Internal Medicine Adolescent Medicine
DX: A41.9 Sepsis, unspecified organism (principal); Z68.42 Body mass index [BMI] 45.0-49.9, adult; N12 Tubulo-interstitial nephritis, not specified as acute or chronic; Z16.23 Resistance to quinolones and fluoroquinolones; Z20.822 Contact with and (suspected) exposure to COVID-19; E78.5 Hyperlipidemia, unspecified; M79.7 Fibromyalgia; I10 Essential (primary) hypertension; E66.01 Morbid (severe) obesity due to excess calories; N20.0 Calculus of kidney; F41.9 Anxiety disorder, unspecified; F32.A Depression, unspecified
CPT/HCPCS: 36415; 74176; 80048; 80053; 81001; 82962; 83605; 84703; 85007; 85025; 87040; 87077; 87081; 87086; 87088; 87186; 96375; 99285; C9803; J0696; J1642; U0003; U0005

== ENCOUNTER 2022-02-11 15:39 | Emergency (ER) | payer OTHER, SELFPAY ==
[2022-02-11 16:32] VITALS: BP 194/112; PULSE 101; O2SAT 99
[2022-02-11 16:33] VITALS: BP 194/112; PULSE 104; RESP 18; TEMP 37; O2SAT 98; BMI 45.7
--- NOTE | 2022-02-11 16:50 | XR_ITS ---
PROCEDURE INFORMATION: Exam: XR Chest Exam date and time: 02/11/2022 4:57 PM Age: 36 years old Clinical indication: Cough TECHNIQUE: Imaging protocol: XR of the chest. Views: 1 view. COMPARISON: CR XR CHEST PORTABLE 01/12/2022 12:14 PM FINDINGS: Tubes, catheters and devices: Port-A-Cath again demonstrated with the tip at the level of the mid superior vena cava. Lungs: Unremarkable. No consolidation. Pleural spaces: Unremarkable. No pleural effusion. No pneumothorax. Heart/Mediastinum: Unremarkable. No cardiomegaly. Bones/joints: Unremarkable. IMPRESSION: No evidence of acute cardiopulmonary disease.
[2022-02-11 17:05] LABS: Microscopic, Urine URINE MICROSCOPIC (MICROSCOPIC)
[2022-02-11 17:16] LABS: Appearance,Urine CLOUDY (Clear); Bilirubin,Urine Negative (Negative); Blood, Urine 1+ (Negative); Color,Urine YELLOW (Yellow); Glucose,Urine (UA) Negative (Negative); Ketones,Urine Negative (Negative); Leukocyte Esterase,Urine 1+ (Negative); Nitrate,Urine Negative (Negative); Protein,Urine 1+ (Negative); Specific Gravity, Urine 1.025 (1.005-1.030); Urobilinogen,Urine 0.2 EU/dl (0.2)
[2022-02-11 18:04] LABS: Basophils # 0.3 K/mm3 (0-0.2); Basophils % 2.5 % (0.1-2.0); Eosinophils # 0.6 K/mm3 (0.0-0.4); Eosinophils % 4.5 % (0.1-12.0); Hematocrit 42.8 % (37.0-47.0); Lymphocytes # 2.2 K/mm3 (0.7-4.5); Lymphocytes % 16.5 % (10-50); Mean Corpuscular HGB Conc 32.8 g/dL (31.8-35.4); Mean Corpuscular Hemoglobin 28.3 pg (27.0-31.2); Mean Corpuscular Volume 86.2 fl (81-99); Mean Platelet Volume 7.7 fl (7.4-10.4); Monocytes # 0.5 K/mm3 (0.1-1.0); Neutrophils # 9.7 K/mm3 (1.8-7.8); Neutrophils % 72.5 % (37.0-80.0); Platelet Count 666 K/mm3 (142-424); Red Blood Count 4.96 M/mm3 (4.20-5.40); Red Cell Distribution Width 15.1 % (11.5-17.5); White Blood Count 13.4 K/mm3 (4.8-10.8)
[2022-02-11 18:20] LABS: Alanine Aminotransferase 31 U/L (12-78); Albumin Level 3.8 g/dl (3.5-5.0); Alkaline Phosphatase 89 U/L (38-126); Anion Gap 13.7 mEq/L (5-15); Aspartate Amino Transferase 42 U/L (14-36); Bilirubin,Total 0.2 mg/dl (0.2-1.3); Blood Urea Nitrogen 14 mg/dl (7-17); Calcium 9.2 mg/dl (8.4-10.2); Carbon Dioxide 23 mmol/L (22.0-30.0); Chloride 105 mmol/L (98-107); Creatinine Clearance Estimated 68 mL/min (50-200); Estimated Glomerular Filt Rate 71 ml/min (>60); GFR (African American) 86 ML/MIN (>60); Globulin 3.8 g/dL (1.3-3.2); Glucose 98 mg/dl (74-100); Potassium 3.7 mmoL/L (3.5-5.1); Sodium 138 mmol/L (136-145); Total Protein,Serum 7.6 g/dl (6.3-8.2)
--- NOTE | 2022-02-11 18:23 | HMH.EDGENADL ---
ED Disposition Clinical Impression: S/P ureteral stent placement, Ureteral calculus, right Disposition: Home, Self-Care Condition on Discharge: Good Instructions: Kidney Stones -- Adult Referrals: Provider,MD Wen [Primary Care Provider] - Orlando Acosta MD [Staff Physician] - - Critical Care Critical Care Time: No Attestation: On 02/11/22, the high probability of a clinically significant, sudden or life threatening deterioration of the following system(s) required my full and direct attention, intervention and personal management. The time I documented below is in addition to time spent performing reported procedures but includes the following listed in this critical care notation. Medical Decision Making - Medical Records Medical records reviewed: Yes: I reviewed the patient's medical records. - Olu Inquiry Pt receiving controlled substance: No Vital Signs: 02/11/22 16:32 02/11/22 16:33 Temperature 98.6 F Temperature Source Oral Pulse Rate 101 H Pulse Rate [Left Radial] 104 H Respiratory Rate 18 Blood Pressure 194/112 H Blood Pressure [Right Arm] 194/112 H Blood Pressure Mean 139 Blood Pressure Mean [Right Arm] 139 Blood Pressure Source [Right Arm] Automatic Cuff Blood Pressure Position [Right Arm] Sitting 02 Sat by Pulse Oximetry 99 98 Oxygen Delivery Method Room Air - Lab Data Lab Results 02/11/22 17:02: Urine Color Yellow, Urine Appearance Cloudy, Urine pH 6.0, Ur Specific [place] 1.025, Urine Protein 1+, Urine Glucose (UA) Negative, Urine Ketones Negative, Urine Blood 1+, Urine Nitrate Negative, Urine Bilirubin Negative, Urine Urobilinogen 0.2, Ur Leukocyte Esterase 1+ A 02/11/22 17:52: WBC 13.4 H, RBC 4.96, Hgb 14.0, Hct 42.8, MCV 86.2, MCH 28.3, MCHC 32.8, RDW 15.1, Plt Count 666 H, MPV 7.7, Neut % (Auto) 72.5, Lymph % (Auto) 16.5, [place] % (Auto) 4.0, Eos % (Auto) 4.5, Baso % (Auto) 2.5 H, Neut # (Auto) 9.7 H, Lymph # (Auto) 2.2, [place] # (Auto) 0.5, Eos # (Auto) 0.6 H, Baso # (Auto) 0.3 H 02/11/22 17:52: Sodium 138, Potassium 3.7, Chloride 105, Carbon Dioxide 23, Anion Gap 13.7, BUN 14, Creatinine 0.90, Estimated Creat Clear 68, Estimated GFR 71, Est GFR ( Amer) 86, Glucose 98, Calcium 9.2, Total Bilirubin 0.2, AST 42 H, ALT 31, Alkaline Phosphatase 89, Total Protein 7.6, Albumin 3.8, Globulin 3.8 H, Albumin/Globulin Ratio 1.0 L Result diagrams: 02/11/22 17:52 02/11/22 17:52 Orders (Tests/Meds): ED MEDICATIONS Generic Name Dose Route Start Last Admin Trade Name Freq PRN Reason Stop Dose Admin Hydrocodone Bitart/Acetaminophen 2 tab 02/11/22 18:51 Hydrocodone/Apap 5/325 Mg Tablet PO 02/11/22 18:52 ONCE ONE ORDERS Category Date Time Status Urinalysis and Microscopic Stat Lab 02/11/22 17:02 Results Urine Culture Stat Micro 02/11/22 17:02 Received - Radiology Data #1 Image(s): Chest Image Reviewed: Yes I reviewed the patient's radiology results, Yes I reviewed the patient's radiology image, Yes I have reviewed radiologist's interpretation Preliminary Findings: Normal/NAD - Reevaluation(s) Time: 18:52 Reevaluation #1: On reevaluation, the patient is feeling much better. Pain is improved. Patient remains afebrile. No evidence of sepsis. She does have some very mild leukocytosis, however significantly improved from her previous admission. Urinalysis is reassuring as well. She continues to take her outpatient antibiotics which are appropriate for recurrent urinary infection. The patient already has scheduled follow-up for outpatient surgery. At this time, patient will be discharged. She was given strict return precautions. She is to have any fever or worsening pain she is to return the emergency department medially. Verbalized understanding. Medical Decision Narrative: 36-year-old female presenting with some generalized weakness. Patient does have some chronic medical comorbidities and is recently treated for UTI sepsis. P
[2022-02-11 18:47] VITALS: BP 193/115; PULSE 89; O2SAT 100
--- NOTE | 2022-02-11 18:50 | PC.NURSE ---
ED MD at
[2022-02-11 18:59] LABS: Bacteria,Urine 1+ /lpf
[2022-02-11 19:02] VITALS: BP 193/115; PULSE 89; RESP 20; TEMP 37; O2SAT 100
== END 2022-02-11 19:03 | disposition home or self-care (01) ==
PROVIDERS: Emergency Provider Emergency Medicine
DX: N20.1 Calculus of ureter (principal); I10 Essential (primary) hypertension; E78.5 Hyperlipidemia, unspecified; F41.8 Other specified anxiety disorders; K21.9 Gastro-esophageal reflux disease without esophagitis; Z72.0 Tobacco use; Z88.0 Allergy status to penicillin; Z88.2 Allergy status to sulfonamides; Z79.899 Other long term (current) drug therapy
CPT/HCPCS: 71045; 80053; 81001; 85025; 87086; 99283

== ENCOUNTER 2022-02-12 14:38 | Emergency (ER) | payer OTHER, SELFPAY ==
[2022-02-12 14:39] VITALS: BP 184/118; PULSE 102; RESP 18; TEMP 36.8; O2SAT 100; BMI 53.0
--- NOTE | 2022-02-12 16:24 | HMH.EDGENADL ---
ED Disposition Clinical Impression: Pancreatitis Qualifiers: Chronicity: acute Pancreatitis type: other Acute pancreatitis complication: no infection or necrosis Qualified Code(s): K85.80 - Other acute pancreatitis without necrosis or infection Disposition: Home, Self-Care Condition on Discharge: Good Prescriptions: Promethazine HCl [Phenergan 25mg tab] 25 mg PO BID #12 tab Transmission Status: Pending to [facility] Referrals: Landy Carroll [Primary Care Provider] - - Critical Care Critical Care Time: No Attestation: On 02/12/22, the high probability of a clinically significant, sudden or life threatening deterioration of the following system(s) required my full and direct attention, intervention and personal management. The time I documented below is in addition to time spent performing reported procedures but includes the following listed in this critical care notation. Medical Decision Making - Medical Records Medical records reviewed: Yes: I reviewed the patient's medical records. - Olu Inquiry Pt receiving controlled substance: No Vital Signs: 02/12/22 14:39 02/12/22 17:07 Temperature 98.2 F Temperature Source Oral Pulse Rate 98 H Pulse Rate [Left Radial] 102 H Respiratory Rate 18 18 Blood Pressure 146/110 H Blood Pressure [Right Arm] 184/118 H Blood Pressure Mean 126 Blood Pressure Mean [Right Arm] 140 Blood Pressure Source [Right Arm] Automatic Cuff Blood Pressure Position [Right Arm] Sitting 02 Sat by Pulse Oximetry 100 98 Oxygen Delivery Method Room Air - Lab Data Lab Results 02/12/22 16:25: WBC 11.6 H, RBC 4.67, Hgb 13.6, Hct 41.4, MCV 88.5, MCH 29.0, MCHC 32.8, RDW 14.8, Plt Count 652 H, MPV 7.3 L, Neut % (Auto) 67.6, Lymph % (Auto) 22.6, [place] % (Auto) 5.4, Eos % (Auto) 3.0, Baso % (Auto) 1.5, Neut # (Auto) 7.9 H, Lymph # (Auto) 2.6, [place] # (Auto) 0.6, Eos # (Auto) 0.3, Baso # (Auto) 0.2 02/12/22 16:25: Sodium 138, Potassium 3.6, Chloride 106, Carbon Dioxide 25, Anion Gap 10.6, BUN 13, Creatinine 0.80, Estimated Creat Clear 77, Estimated GFR 81, Est GFR ( Amer) 98, Glucose 125 H D, Calcium 9.3, Total Bilirubin 0.3, AST 39 H, ALT 32, Alkaline Phosphatase 94, Total Protein 7.6, Albumin 4.0, Globulin 3.6 H, Albumin/Globulin Ratio 1.1, Lipase 617 H Result diagrams: 02/12/22 16:25 02/12/22 16:25 Orders (Tests/Meds): ED MEDICATIONS Discontinued Medications Generic Name Dose Route Start Last Admin Trade Name Geeq PRN Reason Stop Dose Admin Haloperidol Lactate 5 mg 02/12/22 16:03 02/12/22 16:32 Haloperidol Lactate 5 Mg/Ml Vial IV 02/12/22 16:04 5 mg ONCE ONE Administration Sodium Chloride 1,000 mls @ 999 mls/hr 02/12/22 16:15 02/12/22 16:32 Sod Chlor 0.9% 1000ml Bag IV 02/12/22 17:15 999 mls/hr .Q1H1M JUANA Administration ORDERS Category Date Time Status Rapid PCR Covid and Flu A/B Stat Lab 02/12/22 15:14 Received - Reevaluation(s) Time: 18:01 Reevaluation #1: On reevaluation, the patient is feeling much better. She is no longer vomiting. She is actually tolerating oral intake. Repeat abdominal exam is benign. Her leukocytosis continues to improve. However she does have mildly elevated lipase. Given her symptoms she could have pancreatitis. I did explain to the patient that I would like to obtain CT scan. Patient is declining she feels better. I did explain to the patient that we will be transferring her to the [facility] for further evaluation. We did even obtain a bed at their facility, however the patient is declining. She states that she is going to just go home at this point. I explained to the patient that the whole reason she came back was to be evaluated at the [facility] by the urology and we have arranged for transfer. Patient is declining. She is states that she will not go. Patient wants to leave. I explained to her to return the emergency department immediately to complete her medical treatment. Given strict
[2022-02-12 16:37] LABS: Basophils # 0.2 K/mm3 (0-0.2); Basophils % 1.5 % (0.1-2.0); Eosinophils # 0.3 K/mm3 (0.0-0.4); Hematocrit 41.4 % (37.0-47.0); Hemoglobin 13.6 g/dL (12.2-16.2); Lymphocytes # 2.6 K/mm3 (0.7-4.5); Lymphocytes % 22.6 % (10-50); Mean Corpuscular HGB Conc 32.8 g/dL (31.8-35.4); Mean Corpuscular Volume 88.5 fl (81-99); Mean Platelet Volume 7.3 fl (7.4-10.4); Monocytes # 0.6 K/mm3 (0.1-1.0); Monocytes % 5.4 % (1.7-9.3); Neutrophils # 7.9 K/mm3 (1.8-7.8); Neutrophils % 67.6 % (37.0-80.0); Platelet Count 652 K/mm3 (142-424); Red Blood Count 4.67 M/mm3 (4.20-5.40); Red Cell Distribution Width 14.8 % (11.5-17.5); White Blood Count 11.6 K/mm3 (4.8-10.8)
[2022-02-12 16:56] LABS: Chloride 106 mmol/L (98-107); Potassium 3.6 mmoL/L (3.5-5.1); Sodium 138 mmol/L (136-145)
[2022-02-12 16:58] LABS: Blood Urea Nitrogen 13 mg/dl (7-17); Creatinine Clearance Estimated 77 mL/min (50-200); Estimated Glomerular Filt Rate 81 ml/min (>60); GFR (African American) 98 ML/MIN (>60)
[2022-02-12 16:59] LABS: Alanine Aminotransferase 32 U/L (12-78); Albumin/Globulin Ratio 1.1 (1.1-1.8); Alkaline Phosphatase 94 U/L (38-126); Anion Gap 10.6 mEq/L (5-15); Aspartate Amino Transferase 39 U/L (14-36); Bilirubin,Total 0.3 mg/dl (0.2-1.3); Calcium 9.3 mg/dl (8.4-10.2); Carbon Dioxide 25 mmol/L (22.0-30.0); Globulin 3.6 g/dL (1.3-3.2); Glucose 125 mg/dl (74-100); Total Protein,Serum 7.6 g/dl (6.3-8.2)
[2022-02-12 17:02] LABS: Lipase 617 U/L (23-300)
--- NOTE | 2022-02-12 17:03 | PC.NURSE ---
malou from lab called with critical lipase notified ER of critical result at this time
[2022-02-12 17:07] VITALS: BP 146/110; PULSE 98; RESP 18; O2SAT 98
[2022-02-12 17:26] LABS: Coronavirus 19, PCR Not Detected (NotDetected); Influenza A, PCR Not Detected (NotDetected); Influenza B, PCR Not Detected (NotDetected)
--- NOTE | 2022-02-12 17:52 | PC.NURSE ---
Va returned call, pt has refused transfer.
[2022-02-12 18:25] VITALS: BP 185/120; PULSE 94; RESP 18; TEMP 36.8; O2SAT 99
== END 2022-02-12 18:25 | disposition home or self-care (01) ==
PROVIDERS: Emergency Provider Emergency Medicine; PCP Internal Medicine
DX: K85.80 Other acute pancreatitis without necrosis or infection (principal); Z79.899 Other long term (current) drug therapy; F41.9 Anxiety disorder, unspecified; J45.909 Unspecified asthma, uncomplicated; F32.A Depression, unspecified; K21.9 Gastro-esophageal reflux disease without esophagitis; E78.5 Hyperlipidemia, unspecified; I10 Essential (primary) hypertension; G43.909 Migraine, unspecified, not intractable, without status migrainosus; Z87.442 Personal history of urinary calculi; M79.7 Fibromyalgia; F43.10 Post-traumatic stress disorder, unspecified; Z72.0 Tobacco use
CPT/HCPCS: 80053; 83690; 85025; 96365; 96375; 99284; C9803; U0003; U0005

== ENCOUNTER 2022-02-13 18:04 | Emergency (ER) | payer OTHER, SELFPAY ==
--- NOTE | 2022-02-13 18:09 | HMH.EDUTC ---
[facility] [place] Clinical Impression: TMJ arthralgia Qualifiers: Laterality: right Qualified Code(s): M26.621 - Arthralgia of right temporomandibular joint Disposition: Home, Self-Care Condition on Discharge: Good Instructions: Temporomandibular Disorder, DI for Temporomandibular Disorder Additional Instructions: Drink plenty of fluids. Take the medications as directed. Follow up with your regular doctor. GO TO THE ER FOR ANY WORSENING SYMPTOMS Continue the antibiotics that you are on for your kidney stone/uti right now. Prescriptions: methylPREDNISolone [Medrol] 4 mg PO DIRECTED 6 Days #21 packet Transmission Status: Received by [facility] Referrals: Provider,MD Wen [Primary Care Provider] - Time of Disposition: 18:50 Medical Decision Making - Medical Records Medical records reviewed: No: I reviewed the patient's medical records. - Olu Inquiry Pt receiving controlled substance: No Vital Signs: 02/13/22 18:17 02/13/22 18:56 Temperature 98.6 F 98.6 F Temperature Source Oral Pulse Rate 117 H Pulse Rate [Left Radial] 117 H Respiratory Rate 20 20 Blood Pressure 160/109 H 02 Sat by Pulse Oximetry 97 Orders (Tests/Meds): ED MEDICATIONS Discontinued Medications Generic Name Dose Route Start Last Admin Trade Name Freq PRN Reason Stop Dose Admin Methylprednisolone Sodium Succinate 125 mg 02/13/22 19:03 02/13/22 19:04 Methylprednisolone Sod Succ 125mg Vial IM 02/13/22 19:04 125 mg ONCE ONE Administration - Radiology Data #1 Image(s): Other Image Reviewed: Yes I reviewed the patient's radiology results, Yes I discussed the image results w/the radiologist Preliminary Findings: No Fracture Seen PROCEDURE INFORMATION: Exam: XR Right Mandible Exam date and time: 02/13/2022 6:23 PM Age: 36 years old Clinical indication: Jaw pain; Additional info: Jaw pain right side no injury TECHNIQUE: Imaging protocol: XR of the Right mandible. Views: 4 or more views COMPARISON: No relevant prior studies available. FINDINGS: Sinuses: Mild frontal sinus inflammatory changes. Bones/joints: No fracture. Soft tissues: Unremarkable. IMPRESSION: 1. No evidence of acute osseous injury. 2. Mild frontal sinus inflammatory changes. [facility] [place] HPI - General Stated complaint: JAW PAIN Time Seen by Provider: 02/13/22 18:09 - History of Present Illness Provider Complaint: She c/o right jaw pain since yesterday. She has a history of tmj, but this pain is worse than the pain she has had with that in the past. - Related Data Home Medications Medication Instructions Recorded Confirmed paroxetine HCl 40 mg tablet 60 mg PO DAILY 10/21/17 02/05/22 Tizanidine HCl [Zanaflex 4mg 4 mg PO TIDP PRN 03/15/18 02/05/22 tab] Losartan Potassium [Cozaar 50mg 50 mg PO DAILY 02/03/21 02/05/22 Tablets] Pregabalin [Lyrica 150mg Cap] 150 mg PO BID 02/05/22 02/05/22 Promethazine HCl [Phenergan 12.5mg 12.5 mg PO Q8HP PRN 02/05/22 02/05/22 tablet] Previous Rx's Medication Instructions Recorded Cefdinir [Omnicef 300mg Capsule] 300 mg PO BID #28 cap 02/07/22 Nystatin [Nystatin Oint 100,000 15 gm TP TIDP PRN #80 gm 02/07/22 Units/GM 15GM] Promethazine HCl [Phenergan 25mg 25 mg PO Q6H PRN #25 tab 02/07/22 tab] Tramadol HCl [Tramadol 50mg 50 mg PO Q6HP PRN #25 tab 02/07/22 Tab] Promethazine HCl [Phenergan 25mg 25 mg PO BID #12 tab 02/12/22 tab] methylPREDNISolone [Medrol] 4 mg PO DIRECTED 6 Days #21 02/13/22 packet Allergies Allergy/AdvReac Type Severity Reaction Status Date / Time Penicillins Allergy Severe Hives Verified 02/13/22 18:21 gatifloxacin [From TEQUIN] Allergy Mild Verified 02/13/22 18:21 ketorolac [From TORADOL] Allergy Mild Verified 02/13/22 18:21 aztreonam [AZTREONAM] Allergy Unknown NA-NAUSEA/V Verified 02/13/22 18:21
--- NOTE | 2022-02-13 18:16 | XR_ITS ---
PROCEDURE INFORMATION: Exam: XR Right Mandible Exam date and time: 02/13/2022 6:23 PM Age: 36 years old Clinical indication: Jaw pain; Additional info: Jaw pain right side no injury TECHNIQUE: Imaging protocol: XR of the Right mandible. Views: 4 or more views COMPARISON: No relevant prior studies available. FINDINGS: Sinuses: Mild frontal sinus inflammatory changes. Bones/joints: No fracture. Soft tissues: Unremarkable. IMPRESSION: 1. No evidence of acute osseous injury. 2. Mild frontal sinus inflammatory changes.
[2022-02-13 18:17] VITALS: PULSE 117; RESP 20; TEMP 37; O2SAT 97; BMI 47.5
[2022-02-13 18:56] VITALS: BP 160/109; PULSE 117; RESP 20; TEMP 37
== END 2022-02-13 19:10 | disposition home or self-care (01) ==
PROVIDERS: Emergency Provider Nurse Practitioner Family
DX: M26.621 Arthralgia of right temporomandibular joint (principal)
CPT/HCPCS: 70110; 96372; 99212; G0463

== ENCOUNTER 2022-02-14 00:57 | Emergency (ER) | payer OTHER, SELFPAY ==
[2022-02-14 00:59] VITALS: BP 155/100; PULSE 96; RESP 18; TEMP 36.8; O2SAT 100; BMI 47.5
--- NOTE | 2022-02-14 01:27 | HMH.EDGENADL ---
ED Disposition Clinical Impression: TMJ arthralgia Qualifiers: Laterality: right Qualified Code(s): M26.621 - Arthralgia of right temporomandibular joint Disposition: Home, Self-Care Condition on Discharge: Good Instructions: DI for Temporomandibular Disorder Additional Instructions: see pcp or dentist for follow up Referrals: Landy Carroll [Primary Care Provider] - - Critical Care Critical Care Time: No Attestation: On 02/14/22, the high probability of a clinically significant, sudden or life threatening deterioration of the following system(s) required my full and direct attention, intervention and personal management. The time I documented below is in addition to time spent performing reported procedures but includes the following listed in this critical care notation. Medical Decision Making - Medical Records Medical records reviewed: Yes: I reviewed the patient's medical records. - Olu Inquiry Pt receiving controlled substance: No Vital Signs: 02/14/22 00:59 Temperature 98.2 F Temperature Source Oral Pulse Rate [Right] 96 H Respiratory Rate 18 Blood Pressure [Right Arm] 155/100 H Blood Pressure Mean [Right Arm] 118 02 Sat by Pulse Oximetry 100 - Lab Data Lab results reviewed: Yes: I reviewed the patient's lab results. Medical Decision Narrative: stable exam - continue current treatment General Adult HPI - General Chief complaint: PAIN Stated complaint: Right jaw hurts and tongue is tense Time Seen by Provider: 02/14/22 01:05 Mode of Arrival: Ambulatory Source of Information: Patient, Medical Record Limitations: No Limitations Description of Symptoms (Recalled from ER Triage Doc. by RN): pt c/o rt jaw pain with episodes of her tongue becoming tense pt was seen in [facility] today for same problem and given steriods shot. pt is tender to touch of rt jaw. pt has been dignosed TMJ - History of Present Illness HPI narrative: rt tmj with feeling of tongue swelling - no other sx Onset (ago): hour(s) Location: mouth Severity: moderate Associated symptoms: denies other symptoms Treatments prior to arrival: other (steroids ) - Related Data Home Medications Medication Instructions Recorded Confirmed paroxetine HCl 40 mg tablet 60 mg PO DAILY 10/21/17 02/05/22 Tizanidine HCl [Zanaflex 4mg 4 mg PO TIDP PRN 03/15/18 02/05/22 tab] Losartan Potassium [Cozaar 50mg 50 mg PO DAILY 02/03/21 02/05/22 Tablets] Pregabalin [Lyrica 150mg Cap] 150 mg PO BID 02/05/22 02/05/22 Promethazine HCl [Phenergan 12.5mg 12.5 mg PO Q8HP PRN 02/05/22 02/05/22 tablet] Previous Rx's Medication Instructions Recorded Cefdinir [Omnicef 300mg Capsule] 300 mg PO BID #28 cap 02/07/22 Nystatin [Nystatin Oint 100,000 15 gm TP TIDP PRN #80 gm 02/07/22 Units/GM 15GM] Promethazine HCl [Phenergan 25mg 25 mg PO Q6H PRN #25 tab 02/07/22 tab] Tramadol HCl [Tramadol 50mg 50 mg PO Q6HP PRN #25 tab 02/07/22 Tab] Promethazine HCl [Phenergan 25mg 25 mg PO BID #12 tab 02/12/22 tab] methylPREDNISolone [Medrol] 4 mg PO DIRECTED 6 Days #21 02/13/22 packet Allergies Allergy/AdvReac Type Severity Reaction Status Date / Time Penicillins Allergy Severe Hives Verified 02/13/22 18:21 gatifloxacin [From TEQUIN] Allergy Mild Verified 02/13/22 18:21 ketorolac [From TORADOL] Allergy Mild Verified 02/13/22 18:21 aztreonam [AZTREONAM] Allergy Unknown NA-NAUSEA/V Verified 02/13/22 18:21 OMITING cefaclor [CEFACLOR] Allergy Unknown Verified 02/13/22 18:21 codeine [CODEINE] Allergy Unknown BLEEDING Verified 02/13/22 18:21 OF EYES AND NOSE doxycycline [DOXYCYCLINE] Allergy Unknown Verified 02/13/22 18:21 midazolam [From VERSED] Allergy Unknown Verified 02/13/22 18:21 ondansetron Allergy Unknown Verified 02/13/22 18:21 [From ZOFRAN ( HYDROCHLORIDE)] sulfamethoxazole Allergy Unknown Verified 02/13/22 18:21 [From BACTRIM] trimethoprim [From LAN
[2022-02-14 01:39] VITALS: BP 150/91; PULSE 91; RESP 18; TEMP 36.8
== END 2022-02-14 01:42 | disposition home or self-care (01) ==
PROVIDERS: Emergency Provider Emergency Medicine; PCP Internal Medicine
DX: M26.621 Arthralgia of right temporomandibular joint (principal); Z88.0 Allergy status to penicillin; Z88.6 Allergy status to analgesic agent; Z88.8 Allergy status to other drugs, medicaments and biological substances; F41.9 Anxiety disorder, unspecified; J45.909 Unspecified asthma, uncomplicated; K21.9 Gastro-esophageal reflux disease without esophagitis; E78.5 Hyperlipidemia, unspecified; G43.909 Migraine, unspecified, not intractable, without status migrainosus; Z72.0 Tobacco use; Z87.442 Personal history of urinary calculi
CPT/HCPCS: 99281

== ENCOUNTER 2022-02-18 10:27 | Emergency (ER) | payer OTHER, SELFPAY ==
[2022-02-18] VITALS (7 sets, daily range): BP systolic 144–179; BP diastolic 98–139; PULSE 95–108; RESP 16–18; TEMP 36.8–36.9; O2SAT 95–99; BMI 47.5
--- NOTE | 2022-02-18 10:50 | PC.NURSE ---
EVE Girard at BS
--- NOTE | 2022-02-18 10:50 | HMH.EDGENADL ---
ED Disposition Clinical Impression: Left nephrolithiasis Disposition: Home, Self-Care Condition on Discharge: Fair Additional Instructions: Follow up with Dr. Acosta on Wednesday. Referrals: Landy Carroll [Primary Care Provider] - - Critical Care Critical Care Time: No Attestation: On 02/18/22, the high probability of a clinically significant, sudden or life threatening deterioration of the following system(s) required my full and direct attention, intervention and personal management. The time I documented below is in addition to time spent performing reported procedures but includes the following listed in this critical care notation. Medical Decision Making - Medical Records Medical records reviewed: Yes: I reviewed the patient's medical records. - Olu Inquiry Pt receiving controlled substance: No Olu was queried for this patient: No Vital Signs: 02/18/22 10:28 02/18/22 10:51 02/18/22 11:00 Temperature 98.2 F Temperature Source Oral Pulse Rate 104 H 100 H Pulse Rate [Right Radial] 95 H Respiratory Rate 16 Blood Pressure 164/119 H 172/139 H Blood Pressure [Right Arm] 164/119 H Blood Pressure Mean 144 150 Blood Pressure Mean [Right Arm] 134 Blood Pressure Source [Right Arm] Automatic Cuff Blood Pressure Position [Right Arm] Sitting 02 Sat by Pulse Oximetry 95 98 97 Oxygen Delivery Method Room Air 02/18/22 11:06 02/18/22 14:43 02/18/22 15:01 Temperature Temperature Source Pulse Rate 102 H 108 H 104 H Pulse Rate [Right Radial] Respiratory Rate Blood Pressure 179/125 H 165/99 H 144/106 H Blood Pressure [Right Arm] Blood Pressure Mean 148 120 112 Blood Pressure Mean [Right Arm] Blood Pressure Source [Right Arm] Blood Pressure Position [Right Arm] 02 Sat by Pulse Oximetry 99 98 98 Oxygen Delivery Method Room Air - Lab Data Lab results reviewed: Yes: I reviewed the patient's lab results. Lab Results 02/18/22 10:59: Urine Color Yellow, Urine Appearance Sl cloudy, Urine pH 6.0, Ur Specific [place] 1.020, Urine Protein Negative, Urine Glucose (UA) Negative, Urine Ketones Negative, Urine Blood 1+, Urine Nitrate Negative, Urine Bilirubin Negative, Urine Urobilinogen 0.2, Ur Leukocyte Esterase 2+ A, Urine RBC 3-5, Urine WBC 10-20, Ur Squamous Epith Cells 5-10, Urine Bacteria 1+ 02/18/22 12:30: WBC 10.9 H, RBC 4.68, Hgb 13.6, Hct 41.0, MCV 87.7, MCH 29.1, MCHC 33.2, RDW 15.4, Plt Count 402, MPV 8.0, Neut % (Auto) 66.2, Lymph % (Auto) 23.1, [place] % (Auto) 5.8, Eos % (Auto) 3.0, Baso % (Auto) 1.9, Neut # (Auto) 7.2, Lymph # (Auto) 2.5, [place] # (Auto) 0.6, Eos # (Auto) 0.3, Baso # (Auto) 0.2 02/18/22 12:30: Sodium 139, Potassium 3.6, Chloride 105, Carbon Dioxide 26, Anion Gap 11.6, BUN 17, Creatinine 0.70, Estimated Creat Clear 88, Estimated GFR 95, Est GFR ( Amer) 115, Glucose 102 H, Calcium 8.7, Total Bilirubin 0.5, AST 33, ALT 36, Alkaline Phosphatase 95, Total Protein 7.1, Albumin 3.8, Globulin 3.3 H, Albumin/Globulin Ratio 1.2, Lipase 443 H 02/18/22 13:28: Urine Color Yellow, Urine Appearance Slightly cloudy, Urine pH 6.0, Ur Specific [place] 1.020, Urine Protein Negative, Urine Glucose (UA) Negative, Urine Ketones Negative, Urine Blood Trace-i, Urine Nitrate Negative, Urine Bilirubin Negative, Urine Urobilinogen 0.2, Ur Leukocyte Esterase 2+ A, Urine RBC 10-20, Urine WBC 20-50, Ur Squamous Epith Cells 5-10, Calcium Oxalate Crystal 1+, Urine Bacteria Trace Result diagrams: 02/18/22 12:30 02/18/22 12:30 Orders (Tests/Meds): ED MEDICATIONS Discontinued Medications Generic Name Dose Route Start Last Admin Trade Name Silke PRN Reason Stop Dose Admin Morphine Sulfate 4 mg 02/18/22 11:17 02/18/22 11:34 Morphine 4mg/Ml Syringe IV 02/18/22 11:18 4 mg ONCE ONE Administration Morphine Sulfate 4 mg 02/18/22 14:39 02/18/22 14:44 Morphine 4mg/Ml Syringe IV 02/18/22 14:40 4 mg ONCE ONE Administration Promethazine HCl 25 mg 02/18
--- NOTE | 2022-02-18 10:51 | PC.NURSE ---
Dr. Franklin at BS
--- NOTE | 2022-02-18 10:57 | PC.NURSE ---
pt ambulatory to restroom to provide UA; no complications
--- NOTE | 2022-02-18 10:59 | CT_ITS ---
FINAL REPORT TECHNIQUE: Axial images through the abdomen and pelvis were performed without contrast. This study was performed with techniques to keep radiation doses as low as reasonably achievable, (ALARA). Individualized dose reduction techniques using automated exposure control or adjustment of mA and/or kV according to the patient's size were employed. CLINICAL HISTORY: stone , patient states she has a stone on right side, ? stone on left COMPARISON: 02/04/2022 FINDINGS: ABDOMEN: There is scarring in the lung bases. The heart size is normal. Limited images of the liver are unremarkable. The patient is status post cholecystectomy. The spleen is normal. No adrenal mass is identified. The aorta is normal in caliber. There is no significant free fluid or adenopathy. Again identified is a 10 mm nonobstructing stone in the mid right kidney which has moved laterally since the previous exam. No right ureteral stone is identified. No left renal stone is identified. There is no hydronephrosis. There is a small umbilical hernia containing fat. PELVIS: The appendix is not identified. The patient is status post hysterectomy. The urinary bladder is unremarkable. There is no significant free fluid or adenopathy. IMPRESSION: Nonobstructing right renal stone. No left renal stone identified. Reviewed, Interpreted and Dictated by Nicholas Escobedo III, MD Transcribed by Jen Gaytan Authenticated and . [facility]
[2022-02-18 11:05] LABS: Microscopic, Urine URINE MICROSCOPIC (MICROSCOPIC)
[2022-02-18 11:06] LABS: Appearance,Urine SL CLOUDY (Clear); Bilirubin,Urine Negative (Negative); Blood, Urine 1+ (Negative); Color,Urine YELLOW (Yellow); Glucose,Urine (UA) Negative (Negative); Ketones,Urine Negative (Negative); Leukocyte Esterase,Urine 2+ (Negative); Nitrate,Urine Negative (Negative); Protein,Urine Negative (Negative); Urobilinogen,Urine 0.2 EU/dl (0.2)
--- NOTE | 2022-02-18 11:11 | PC.NURSE ---
pt to CT by wheelchair with help desk technician
--- NOTE | 2022-02-18 11:17 | PC.NURSE ---
pt returned from CT by wheelchair with central sterilization technician
[2022-02-18 11:20] LABS: Bacteria,Urine 1+ /lpf
--- NOTE | 2022-02-18 11:20 | PC.NURSE ---
Friend at BS
[2022-02-18 12:53] LABS: Chloride 105 mmol/L (98-107); Potassium 3.6 mmoL/L (3.5-5.1); Sodium 139 mmol/L (136-145)
[2022-02-18 12:56] LABS: Alanine Aminotransferase 36 U/L (12-78); Albumin Level 3.8 g/dl (3.5-5.0); Albumin/Globulin Ratio 1.2 (1.1-1.8); Alkaline Phosphatase 95 U/L (38-126); Anion Gap 11.6 mEq/L (5-15); Aspartate Amino Transferase 33 U/L (14-36); Basophils # 0.2 K/mm3 (0-0.2); Basophils % 1.9 % (0.1-2.0); Bilirubin,Total 0.5 mg/dl (0.2-1.3); Blood Urea Nitrogen 17 mg/dl (7-17); Calcium 8.7 mg/dl (8.4-10.2); Carbon Dioxide 26 mmol/L (22.0-30.0); Creatinine Clearance Estimated 88 mL/min (50-200); Eosinophils # 0.3 K/mm3 (0.0-0.4); Estimated Glomerular Filt Rate 95 ml/min (>60); GFR (African American) 115 ML/MIN (>60); Globulin 3.3 g/dL (1.3-3.2); Glucose 102 mg/dl (74-100); Hemoglobin 13.6 g/dL (12.2-16.2); Lipase 443 U/L (23-300); Lymphocytes # 2.5 K/mm3 (0.7-4.5); Lymphocytes % 23.1 % (10-50); Mean Corpuscular HGB Conc 33.2 g/dL (31.8-35.4); Mean Corpuscular Hemoglobin 29.1 pg (27.0-31.2); Mean Corpuscular Volume 87.7 fl (81-99); Monocytes # 0.6 K/mm3 (0.1-1.0); Monocytes % 5.8 % (1.7-9.3); Neutrophils # 7.2 K/mm3 (1.8-7.8); Neutrophils % 66.2 % (37.0-80.0); Platelet Count 402 K/mm3 (142-424); Red Blood Count 4.68 M/mm3 (4.20-5.40); Red Cell Distribution Width 15.4 % (11.5-17.5); Total Protein,Serum 7.1 g/dl (6.3-8.2); White Blood Count 10.9 K/mm3 (4.8-10.8)
--- NOTE | 2022-02-18 13:38 | PC.NURSE ---
Cathed urine specimen sent to lab.
--- NOTE | 2022-02-18 15:12 | PC.NURSE ---
pt given a soda; okayd by Dr. Franklin. re-checked patients BP. She is playing on her phone and has no other needs at this time
[2022-02-18 16:01] LABS: Microscopic, Urine URINE MICROSCOPIC (MICROSCOPIC)
[2022-02-18 16:05] LABS: Bilirubin,Urine Negative (Negative); Blood, Urine TRACE-I (Negative); Color,Urine YELLOW (Yellow); Glucose,Urine (UA) Negative (Negative); Ketones,Urine Negative (Negative); Leukocyte Esterase,Urine 2+ (Negative); Nitrate,Urine Negative (Negative); Protein,Urine Negative (Negative); Urobilinogen,Urine 0.2 EU/dl (0.2)
--- NOTE | 2022-02-18 16:12 | PC.NURSE ---
the cath urine that was sent to lab by EVE Girard was cancelled twice due to the regular UA and cath UA cancelling each other out. this is the only thing we have been waiting on for the patient to be discharged. Dr. Franklin speaking with lab at this time
[2022-02-18 16:15] LABS: Appearance,Urine Slightly Cloudy (Clear)
[2022-02-18 16:18] LABS: WBC,Urine 20-50 #/hpf (0-3)
[2022-02-18 16:19] LABS: Bacteria,Urine Trace /lpf; Calcium Oxalate Crystals,Urine 1+ /lpf
== END 2022-02-18 17:31 | disposition home or self-care (01) ==
PROVIDERS: Emergency Provider Emergency Medicine; PCP Internal Medicine
DX: N20.0 Calculus of kidney (principal); Z87.442 Personal history of urinary calculi
CPT/HCPCS: 74176; 80053; 81001; 83690; 85025; 87086; 96374; 96375; 96376; 99284; J1642

== ENCOUNTER → 2022-02-18 17:26 | Outpatient (CLI) | payer OTHER, SELFPAY | PROVIDERS: Visit Provider Urology | DX: Z01.818 Encounter for other preprocedural examination (principal); Z20.822 Contact with and (suspected) exposure to COVID-19; N20.1 Calculus of ureter | CPT/HCPCS: C9803; U0003; U0005 ==

== ENCOUNTER 2022-02-20 07:58 | Day surgery (SDC) | payer OTHER, SELFPAY ==
[2022-02-18 10:50] VITALS: BMI 47.8
[2022-02-20] VITALS (13 sets, daily range): BP systolic 101–178; BP diastolic 10–108; PULSE 80–99; RESP 16–18; TEMP 36.3–36.6; O2SAT 96–97
--- NOTE | 2022-02-20 08:15 | XR_ITS ---
FINAL REPORT CLINICAL HISTORY: kidney stone COMPARISON: January 23, 2022 FINDINGS: SINGLE VIEW ABDOMEN A single view of the abdomen was obtained. There is a nonobstructive bowel gas pattern with a moderate amount of retained stool in the colon. There are no abnormally dilated loops of small bowel. The right ureteral stent has been removed. There is a 9 mm stone in the right kidney. There are postoperative changes in the right upper quadrant. IMPRESSION: Nonobstructive bowel gas pattern with a moderate amount of retained stool. Right renal stone. Reviewed, Interpreted and Dictated by Nicholas Escobedo III, MD Transcribed by Lorraine Hammonds Authenticated and [facility]
--- NOTE | 2022-02-20 09:35 | P.PN_ITS ---
[facility] Anesthesia Checklist - Patient Identification Patient Identification: Arm Band, Verbal (Name & ) - Structural Data Admitted From: Home Planned Operative Procedure/s: Right ESWL Consent for Planned Operative Procedure(s) Verified: Yes Verified Documents: Surgical Consent - NPO Status Verified Time NPO: 01:00 - Additional verifications Anesthesia Reactions: Yes (CRYING) Hx Blood Transfusions: No Blood Transfusion Reaction: No - Airway Assessment C-Spine Mobility Assessed: Yes TMJ Mobility Assessed: Yes Dentition: Poor Dentition - Neurological Assessment Level of Consciousness: Awake, Alert, Appropriate - Anesthesia Plan Anesthesia Risk discussed: Yes ASA Class: III Anesthesia Type: General [facility] History I have reviewed the patient's past medical history: Yes 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: Reports:: Anxiety, Asthma, Depression, Gastroesophageal Reflux Disease(GERD), Hyperlipidemia, Hypertension, Kidney Stones, Migraine Denies:: Cancer, Diabetes Mellitus Type 1, Diabetes Mellitus Type 2, Internal Pacemaker, MRSA, Seizures *Have you ever received a pneumonia vaccine?: No *Have you received a flu vaccine this season?: No Other 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: Reports: Fibromyalgia, Other. Denies: Blood Transfusion Reaction Anesthesia experience/problems:: none Laterality Cases: Left: Other, Bilateral: Myringotomy (Ear Tubes), Tonsillectomy Other Surgeries: Yes: No Previous Surgery, Cholecystectomy, Colonoscopy, Hernia Repair, Hysterectomy-Total, Ureter Stent, Other. No: Pacemaker Amputation: No Fractures: Yes (Left leg ORIF) - *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 Last grade of school completed: High school graduate Smoking Status: Current every day smoker Tobacco Type: smokeless tobacco # Packs/Day (cigarettes): 0 Alcohol Intake: never Alcohol Intake Frequency:: holidays/special occasions only Substance Use Type: denies use *Occupational Status:: unemployed Housing: house Household Members: none *Travel in the last 8 weeks: None - Psychiatric History Pschychiatric History:: Reports:: Anxiety, Depression, Post Traumatic Stress Disorder Family Hx:: Unable to obtain
--- NOTE | 2022-02-20 10:47 | HMH.ANESI ---
[facility] Anesthesia Record Part I Intake, IV Amount: 300 Estimated blood loss (mL): 0 Urine output (mL): 0 Blood Pressure: 148/101 SaO2: 97 Pulse Rate: 99 Respiratory Rate: 16 Temperature: 97.7 F Patient is:: Drowsy, Stable Stable to PACU at:: 10:40
--- NOTE | 2022-02-20 12:12 | PC.NURSE ---
1100- anesthesia aware of blood pressure, continue to monitor. Instruct pt to take blood pressure medication at home.
--- NOTE | 2022-02-20 12:40 | P.OP_ITS ---
Date of procedure: 02/20/22 Pre-op Diagnosis:: Right kidney stone, 8 mm Post-op Diagnosis:: Same Procedure performed:: Right ESWL Surgeon:: Orlando Acosta MD REGULATORY AFFAIRS CONSULTANT:: Johnnie Gilliam Anesthesia: LMA Estimated blood loss (mL): 0 Clinical Note:: 36-year-old white female with a long history of nephrolithiasis with a 8 mm stone that had previously been in the proximal ureter. Previous stent was placed with stone being manipulated back into the kidney. Patient was having a lot of stent colic and the stent was removed recently. KUB today shows that the stone is still in the right renal pelvis. Operative findings:: KUB shows stone in the right renal pelvis. ESWL was focused onto the stone and there was apparent good fragmentation of the stone. Operative note:: Patient taken to the operating room after informed consent was obtained. He was placed on the operating table in the supine position and general anesthesia administered. Padded appropriately and positioned so that F2 was focused onto the right kidney stone. Her knees were elevated and the flank was lubricated appropriately. Fluoroscopy revealed the stone very well and the lithotripter was focused onto the stone and 3000 shockwaves delivered to the stone at a maximum KUB 7. Apparent good fragmentation. Patient tolerated procedure well there are no complications. Condition: stable Disposition: PACU Specimens:: None Complications:: None
--- NOTE | 2022-02-20 12:58 | P.PN_ITS ---
[facility] Anesthesia Record Part II Discharge Time: 11:20 Destination: Surgical Day Care (OP Surgery) PACU nurse assessment reviewed?: Yes Patient Condition:: Good Anesthesia Complications:: None Swallowing reflex intact?: Yes Cyanosis?: No Blood Pressure: 178/95 Pulse Rate: 93 Temperature: 97.8 F Mental Status: Alert & Oriented Pain level:: 8 Nausea and/or vomitting:: None Intake, IV Amount: 0
== END 2022-02-20 12:40 | disposition home or self-care (01) ==
PROVIDERS: PCP Internal Medicine; Visit Provider Urology
PROC: (CPT 50590; principal; 2022-02-20 10:00)
DX: N20.0 Calculus of kidney (principal)
CPT/HCPCS: 50590; 74018; 96374; J1642

== ENCOUNTER 2022-02-21 14:42 | Emergency (ER) | payer OTHER, SELFPAY ==
[2022-02-21 14:43] VITALS: BP 173/110; PULSE 103; RESP 16; TEMP 36.8; O2SAT 97; BMI 47.5
--- NOTE | 2022-02-21 15:03 | HMH.EDGENADL ---
ED Disposition Clinical Impression: Epigastric pain Nausea and vomiting Qualifiers: Vomiting type: unspecified Qualified Code(s): R11.2 - Nausea with vomiting, unspecified Disposition: Home, Self-Care Condition on Discharge: Good Instructions: DI for Abdominal Pain-Adult, DI for Vomiting -- Adult Additional Instructions: Continue Phenergan suppositories as needed for nausea and vomiting. Pepcid as prescribed. Follow-up with primary care provider, call Wednesday. Insert follow-up blood pressure Urine culture has been performed, results generally take 2 to 3 days. Follow-up the results of this test with your primary care provider within 2 to 3 days. Prescriptions: Hydrocod/Acet 5/325 mg [[place] 5/325mg tablet] 1 tab PO Q6HP PRN #6 tab PRN Reason: Pain Transmission Status: Sent to [facility] Famotidine [Pepcid 20mg Tablet] 20 mg PO BID 5 Days #10 tab Transmission Status: Received by [facility] Referrals: Landy Carroll [Primary Care Provider] - - Critical Care Critical Care Time: No Attestation: On 02/21/22, the high probability of a clinically significant, sudden or life threatening deterioration of the following system(s) required my full and direct attention, intervention and personal management. The time I documented below is in addition to time spent performing reported procedures but includes the following listed in this critical care notation. Medical Decision Making - Olu Inquiry Pt receiving controlled substance: Yes Olu was queried for this patient: Yes Risks and benefits of using a controlled substance: were discussed with pt by me Vital Signs: 02/21/22 14:43 02/21/22 16:39 Temperature 98.2 F Temperature Source Oral Pulse Rate 88 Pulse Rate [Radial] 103 H Respiratory Rate 16 Blood Pressure 153/112 H Blood Pressure [Right Arm] 173/110 H Blood Pressure Mean [Right Arm] 131 Blood Pressure Position [Right Arm] Sitting 02 Sat by Pulse Oximetry 97 Oxygen Delivery Method Room Air - Lab Data Lab Results 02/21/22 14:00: Urine Color Yellow, Urine Appearance Clear, Urine pH 6.5, Ur Specific [place] 1.025, Urine Protein 2+, Urine Glucose (UA) Negative, Urine Ketones Negative, Urine Blood 3+, Urine Nitrate Positive, Urine Bilirubin Negative, Urine Urobilinogen 0.2, Ur Leukocyte Esterase 2+ A, Urine RBC 50-100, Urine WBC 3-5, Ur Squamous Epith Cells 3-5, Urine Bacteria Trace 02/21/22 15:09: WBC 12.8 H, RBC 4.51, Hgb 13.1, Hct 39.5, MCV 87.6, MCH 29.1, MCHC 33.2, RDW 15.3, Plt Count 394, MPV 8.3, Neut % (Auto) 74.2, Lymph % (Auto) 17.7, [place] % (Auto) 5.2, Eos % (Auto) 0.6, Baso % (Auto) 2.2 H, Neut # (Auto) 9.5 H, Lymph # (Auto) 2.3, [place] # (Auto) 0.7, Eos # (Auto) 0.1, Baso # (Auto) 0.3 H 02/21/22 15:09: Sodium 138, Potassium 3.4 L, Chloride 107, Carbon Dioxide 27, Anion Gap 7.4, BUN 16, Creatinine 0.90, Estimated Creat Clear 68, Estimated GFR 71, Est GFR ( Amer) 86, Glucose 139 H, Calcium 9.0, Total Bilirubin 0.3, AST 33, ALT 39, Alkaline Phosphatase 71, Troponin I < 0.01, Total Protein 6.9, Albumin 3.7, Globulin 3.2, Albumin/Globulin Ratio 1.2, Lipase 171 Result diagrams: 02/21/22 15:09 02/21/22 15:09 Orders (Tests/Meds): ED MEDICATIONS Generic Name Dose Route Start Last Admin Trade Name Freq PRN Reason Stop Dose Admin Sodium Chloride 8 ml 02/21/22 15:14 Sodium Chloride 0.9% 10ml Vial IV 03/23/22 15:13 NEEDED PRN dilute pepcid Discontinued Medications Generic Name Dose Route Start Last Admin Trade Name Freq PRN Reason Stop Dose Admin Famotidine 20 mg 02/21/22 15:14 02/21/22 15:34 Famotidine 20mg/2ml Vial IV 02/21/22 15:15 20 mg ONCE ONE Administration Morphine Sulfate 4 mg 02/21/22 15:13 02/21/22 15:34 Morphine 4mg/Ml Syringe IV 02/21/22 15:14 4 mg ONCE ONE Administration Promethazine HCl 12.5 mg 02/21/22 15:13 02/21/22 15:35 Promethazine Hcl 25mg/Ml 1ml Vial IV 02/21/22 15:14 12.5 m
[2022-02-21 15:11] LABS: Microscopic, Urine URINE MICROSCOPIC (MICROSCOPIC)
[2022-02-21 15:29] LABS: Chloride 107 mmol/L (98-107)
[2022-02-21 15:30] LABS: Potassium 3.4 mmoL/L (3.5-5.1); Sodium 138 mmol/L (136-145)
[2022-02-21 15:30] LABS: Appearance,Urine CLEAR (Clear); Bilirubin,Urine Negative (Negative); Blood, Urine 3+ (Negative); Color,Urine YELLOW (Yellow); Glucose,Urine (UA) Negative (Negative); Ketones,Urine Negative (Negative); Leukocyte Esterase,Urine 2+ (Negative); Nitrate,Urine POSITIVE (Negative); PH,Urine 6.5 (5.0-8.5); Protein,Urine 2+ (Negative); Specific Gravity, Urine 1.025 (1.005-1.030); Urobilinogen,Urine 0.2 EU/dl (0.2)
[2022-02-21 15:32] LABS: Alanine Aminotransferase 39 U/L (12-78); Alkaline Phosphatase 71 U/L (38-126); Anion Gap 7.4 mEq/L (5-15); Aspartate Amino Transferase 33 U/L (14-36); Bilirubin,Total 0.3 mg/dl (0.2-1.3); Blood Urea Nitrogen 16 mg/dl (7-17); Carbon Dioxide 27 mmol/L (22.0-30.0); Creatinine Clearance Estimated 68 mL/min (50-200); Estimated Glomerular Filt Rate 71 ml/min (>60); GFR (African American) 86 ML/MIN (>60)
[2022-02-21 15:33] LABS: Albumin Level 3.7 g/dl (3.5-5.0); Albumin/Globulin Ratio 1.2 (1.1-1.8); Globulin 3.2 g/dL (1.3-3.2); Glucose 139 mg/dl (74-100); Lipase 171 U/L (23-300); Total Protein,Serum 6.9 g/dl (6.3-8.2)
[2022-02-21 15:58] LABS: Troponin I < 0.01 ng/ml (0.00-0.034)
[2022-02-21 16:04] LABS: Basophils # 0.3 K/mm3 (0-0.2); Basophils % 2.2 % (0.1-2.0); Eosinophils # 0.1 K/mm3 (0.0-0.4); Eosinophils % 0.6 % (0.1-12.0); Hematocrit 39.5 % (37.0-47.0); Hemoglobin 13.1 g/dL (12.2-16.2); Lymphocytes # 2.3 K/mm3 (0.7-4.5); Lymphocytes % 17.7 % (10-50); Mean Corpuscular HGB Conc 33.2 g/dL (31.8-35.4); Mean Corpuscular Hemoglobin 29.1 pg (27.0-31.2); Mean Corpuscular Volume 87.6 fl (81-99); Mean Platelet Volume 8.3 fl (7.4-10.4); Monocytes # 0.7 K/mm3 (0.1-1.0); Monocytes % 5.2 % (1.7-9.3); Neutrophils # 9.5 K/mm3 (1.8-7.8); Neutrophils % 74.2 % (37.0-80.0); Platelet Count 394 K/mm3 (142-424); Red Blood Count 4.51 M/mm3 (4.20-5.40); Red Cell Distribution Width 15.3 % (11.5-17.5); White Blood Count 12.8 K/mm3 (4.8-10.8)
[2022-02-21 16:24] LABS: RBC,Urine 50-100 #/hpf (0-3)
[2022-02-21 16:25] LABS: Bacteria,Urine Trace /lpf
[2022-02-21 16:39] VITALS: BP 153/112; PULSE 88; PULSE 90; O2SAT 100
[2022-02-21 17:00] VITALS: BP 145/96
--- NOTE | 2022-02-21 17:15 | ECG_ITS ---
APPROVED REPORT Exam: Resting ECG HR:87 bpm ECG Measurements Heart Rate 87 AXES WI 146 P 26 QRSd 101 QRS 13 QT 375 T 31 QTc 419 Conclusion SINUS RHYTHM LOW QRS VOLTAGE IN PRECORDIAL LEADS [QRS DEFLECTION < 1.0 mV IN CHEST LEADS] POSSIBLE RIGHT VENTRICULAR CONDUCTION DELAY [RSR (QR) IN V1/V2] BORDERLINE ECG UNCONFIRMED REPORT Electronically signed by : Fantasma Siddiqi MD 02/24/2022 22:21:59
[2022-02-21 17:31] VITALS: BP 136/91
[2022-02-21 18:30] VITALS: BP 155/105; PULSE 99; RESP 16; TEMP 36.6; O2SAT 98
== END 2022-02-21 18:32 | disposition home or self-care (01) ==
PROVIDERS: Emergency Provider Emergency Medicine; PCP Internal Medicine
DX: R10.13 Epigastric pain (principal); R11.2 Nausea with vomiting, unspecified; M54.9 Dorsalgia, unspecified; A49.8 Other bacterial infections of unspecified site; I10 Essential (primary) hypertension; E78.5 Hyperlipidemia, unspecified; K21.9 Gastro-esophageal reflux disease without esophagitis; M79.7 Fibromyalgia; K85.90 Acute pancreatitis without necrosis or infection, unspecified; K57.92 Diverticulitis of intestine, part unspecified, without perforation or abscess without bleeding; G43.909 Migraine, unspecified, not intractable, without status migrainosus; J45.909 Unspecified asthma, uncomplicated; F43.10 Post-traumatic stress disorder, unspecified; F32.A Depression, unspecified; F41.9 Anxiety disorder, unspecified; F17.210 Nicotine dependence, cigarettes, uncomplicated; Z79.899 Other long term (current) drug therapy; Z88.5 Allergy status to narcotic agent; Z88.6 Allergy status to analgesic agent; Z88.8 Allergy status to other drugs, medicaments and biological substances
CPT/HCPCS: 80053; 81001; 83690; 84484; 85025; 87086; 87088; 87186; 93005; 96374; 96375; 99285; J1642

== ENCOUNTER 2022-04-10 10:27 | Emergency (ER) | payer OTHER, SELFPAY ==
[2022-04-10 10:45] VITALS: BP 178/106; PULSE 122; RESP 16; TEMP 37.1; O2SAT 97; BMI 45.7
[2022-04-10 10:55] LABS: Influenza A, PCR Not Detected (NotDetected); Influenza B, PCR Not Detected (NotDetected); Microscopic, Urine URINE MICROSCOPIC (MICROSCOPIC)
[2022-04-10 10:57] LABS: Appearance,Urine CLEAR (Clear); Bilirubin,Urine Negative (Negative); Blood, Urine 1+ (Negative); Color,Urine YELLOW (Yellow); Glucose,Urine (UA) Negative (Negative); Ketones,Urine Negative (Negative); Leukocyte Esterase,Urine 1+ (Negative); Nitrate,Urine POSITIVE (Negative); Protein,Urine TRACE (Negative); Urobilinogen,Urine 0.2 EU/dl (0.2)
[2022-04-10 11:01] VITALS: BP 153/99; PULSE 114; RESP 18; O2SAT 98
[2022-04-10 11:12] LABS: Strep Scrn Group A (Rapid) Negative (Negative)
[2022-04-10 11:15] LABS: Bacteria,Urine Trace /lpf
--- NOTE | 2022-04-10 11:16 | PC.NURSE ---
rounded on pt at this time, pt given warm blanket pt sitting up in chair, will continue to monitor
--- NOTE | 2022-04-10 11:26 | HMH.EDGENADL ---
ED Disposition Clinical Impression: COVID-19 virus infection, Left flank pain, Hypokalemia UTI (urinary tract infection) Qualifiers: Urinary tract infection type: site unspecified Hematuria presence: without hematuria Qualified Code(s): N39.0 - Urinary tract infection, site not specified Disposition: Home, Self-Care Condition on Discharge: Fair Instructions: DI for Urinary Tract Infection (UTI), DI for Hypokalemia, DI for COVID-19 (Suspected or Confirmed ) Additional Instructions: Your potassium level was low, take potassium supplement as prescribed. Take Paxlovid as prescribed for COVID-19. Additional instructions for URINARY TRACT INFECTION: Take antibiotic as prescribed. See your physician in 2-3 days for follow up and culture results. Return immediately if you have an uncontrollable fever greater than 102 degrees, severe back or abdominal pain, inability to urinate, or repetitive vomiting. Additional instructions for COVID-19: Rest, drink plenty of fluids. Tylenol for fever and/or aches and pains. Monitor your symptoms. IF YOU HAVE AN EMERGENCY WARNING SIGN (INCLUDING TROUBLE BREATHING), SEEK EMERGENCY MEDICAL CARE IMMEDIATELY. COVID-19 Isolation: People with COVID-19 should isolate for 5 days. Then if they are asymptomatic (no symptoms) or their symptoms are resolving (without fever for 24 hours), follow that by 5 days of wearing a mask when around others to minimize the risk of infecting people you encounter. If you test positive for COVID-19 and never develop symptoms, day 0 is the day of your positive viral test (based on the date you were tested) and day 1 is the first full day after your positive test. If you develop symptoms after testing positive, your 5-day isolation period must start over. Day 0 is your first day of symptoms. Day 1 is the first full day after your symptoms developed. What to do: Stay in a separate room from other household members, if possible. Use a separate bathroom, if possible. Avoid contact with other members of the household and pets. Don?t share personal household items, like cups, towels, and utensils. Wear a mask when around other people if able. Prescriptions: Ciprofloxacin HCl [Cipro 500mg Tab] 500 mg PO BID #20 tab Transmission Status: Received by [facility] Potassium Chloride [K-Tab ER 20 mEq] 20 meq PO DAILY #7 tab Transmission Status: Received by [facility] Nirmatrelvir/Ritonavir [Paxlovid 2X150 mg-100 mg (Eua)] 1 each PO BID #1 packet Transmission Status: Pending to [facility] Referrals: Landy Carroll [Primary Care Provider] - Forms: Work/School Release - Critical Care Critical Care Time: No Attestation: On 04/10/22, the high probability of a clinically significant, sudden or life threatening deterioration of the following system(s) required my full and direct attention, intervention and personal management. The time I documented below is in addition to time spent performing reported procedures but includes the following listed in this critical care notation. Medical Decision Making - Olu Inquiry Pt receiving controlled substance: No Vital Signs: 04/10/22 10:45 04/10/22 11:01 04/10/22 12:24 Temperature 98.7 F Temperature Source Oral Pulse Rate 114 H 109 H Pulse Rate [Left Radial] 122 H Respiratory Rate 16 18 16 Blood Pressure 153/99 H 147/107 H Blood Pressure [Left Arm] 178/106 H Blood Pressure Mean 117 123 Blood Pressure Mean [Left Arm] 130 Blood Pressure Source [Left Arm] Automatic Cuff Blood Pressure Position [Left Arm] Sitting 02 Sat by Pulse Oximetry 97 98 97 Oxygen Delivery Method Room Air Room Air 04/10/22 13:00 04/10/22 13:30 04/10/22 14:52 Temperature 98.5 F Temperature Source Pulse Rate 104 H 102 H 98 H Pulse Rate [Left Radial] Respiratory Rate 18 18 15 Blood Pressure 176/112 H 185/104 H 172/99 H Blood Pressure [Left Arm] Blood Pressure Mean 131 1
--- NOTE | 2022-04-10 11:34 | PC.NURSE ---
MD at bedside speaking with pt
[2022-04-10 11:35] LABS: Coronavirus 19, PCR Detected (NotDetected)
--- NOTE | 2022-04-10 11:35 | PC.NURSE ---
Called lab to check on status of COVID swab results. Was advised that they should be posting results in approx 5 minutes.
--- NOTE | 2022-04-10 11:38 | CT_ITS ---
FINAL REPORT TECHNIQUE: Thin section axial images were obtained from the lung bases to the pubic symphysis without IV contrast. CLINICAL HISTORY: left flank pain COMPARISON: 02/18/2022 FINDINGS: There are no obstructing renal or ureteral stones. There is no hydronephrosis or perinephric stranding. Previously seen nonobstructing right renal stone is not identified. There are several nonobstructing left renal stones. The gallbladder is absent. There is diffuse fatty infiltration of the liver with no focal hepatic lesion. The spleen, and adrenal glands, and pancreas are without acute abnormality. There is no evidence of small bowel obstruction. There is diverticulosis with no evidence of diverticulitis. The appendix is normal. Patient is status post hysterectomy. There are mildly prominent bilateral inguinal lymph nodes. There is no free fluid. No acute osseous abnormality is identified. IMPRESSION: Nonobstructing left renal stones. Fatty liver. Reviewed, Interpreted and Dictated by Mignon Jaime MD Transcribed by Rina Shaffer Authenticated and [facility]
--- NOTE | 2022-04-10 11:38 | PC.NURSE ---
notified pt of positive COVID results.
--- NOTE | 2022-04-10 11:45 | XR_ITS ---
PROCEDURE INFORMATION: Exam: XR Chest Exam date and time: 04/10/2022 11:42 AM Age: 36 years old Clinical indication: Cough and fever; Additional info: Cough, fever TECHNIQUE: Imaging protocol: Radiologic exam of the chest. Views: 2 views. COMPARISON: CR XR CHEST PORTABLE 02/11/2022 4:57 PM FINDINGS: Tubes, catheters and devices: Chest port via the right subclavian approach with the tip projecting over the superior vena cava. Lungs: Lungs are well aerated without a focal area of consolidation. Pleural spaces: Unremarkable. No pleural effusion. No pneumothorax. Heart/Mediastinum: Unremarkable. No cardiomegaly. Bones/joints: Unremarkable. IMPRESSION: Lungs are well aerated without a focal area of consolidation.
[2022-04-10 12:24] VITALS: BP 147/107; PULSE 109; RESP 16; O2SAT 97
[2022-04-10 13:00] VITALS: BP 176/112; PULSE 104; RESP 18; O2SAT 98
[2022-04-10 13:11] LABS: Basophils % 0.3 % (0.1-2.0); Eosinophils # 0.2 K/mm3 (0.0-0.4); Eosinophils % 2.4 % (0.1-12.0); Hemoglobin 12.9 g/dL (12.2-16.2); Lymphocytes # 0.8 K/mm3 (0.7-4.5); Mean Corpuscular HGB Conc 33.9 g/dL (31.8-35.4); Mean Corpuscular Hemoglobin 27.9 pg (27.0-31.2); Mean Corpuscular Volume 82.3 fl (81-99); Mean Platelet Volume 7.6 fl (7.4-10.4); Monocytes # 0.6 K/mm3 (0.1-1.0); Monocytes % 6.9 % (1.7-9.3); Neutrophils # 6.5 K/mm3 (1.8-7.8); Neutrophils % 80.5 % (37.0-80.0); Platelet Count 327 K/mm3 (142-424); Red Blood Count 4.61 M/mm3 (4.20-5.40); Red Cell Distribution Width 14.2 % (11.5-17.5)
[2022-04-10 13:20] LABS: Alanine Aminotransferase 37 U/L (12-78); Albumin Level 3.6 g/dl (3.5-5.0); Albumin/Globulin Ratio 1.2 (1.1-1.8); Alkaline Phosphatase 95 U/L (38-126); Aspartate Amino Transferase 33 U/L (14-36); Blood Urea Nitrogen 13 mg/dl (7-17); Calcium 8.3 mg/dl (8.4-10.2); Carbon Dioxide 27 mmol/L (22.0-30.0); Chloride 107 mmol/L (98-107); Creatinine Clearance Estimated 56 mL/min (50-200); Estimated Glomerular Filt Rate 56 ml/min (>60); GFR (African American) 68 ML/MIN (>60); Glucose 109 mg/dl (74-100); Sodium 139 mmol/L (136-145); Total Protein,Serum 6.6 g/dl (6.3-8.2)
[2022-04-10 13:21] LABS: Bilirubin,Total < 0.1 mg/dl (0.2-1.3); Lactic Acid 1.1 mmol/L (0.7-2.1)
[2022-04-10 13:30] VITALS: BP 185/104; PULSE 102; RESP 18; O2SAT 99
--- NOTE | 2022-04-10 14:21 | PC.NURSE ---
Calling rad to inquire on status of CT reading.
--- NOTE | 2022-04-10 14:21 | PC.NURSE ---
contacted radiology to check on status of CT results, spoke with edu, she is checking on it
[2022-04-10 14:52] VITALS: BP 172/99; PULSE 98; RESP 15; TEMP 36.9; O2SAT 97
== END 2022-04-10 14:56 | disposition home or self-care (01) ==
PROVIDERS: Emergency Provider Emergency Medicine; PCP Internal Medicine
DX: U07.1 COVID-19 (principal); N39.0 Urinary tract infection, site not specified; J02.9 Acute pharyngitis, unspecified; E87.6 Hypokalemia; I10 Essential (primary) hypertension; K21.9 Gastro-esophageal reflux disease without esophagitis; E78.5 Hyperlipidemia, unspecified; K57.92 Diverticulitis of intestine, part unspecified, without perforation or abscess without bleeding; K85.90 Acute pancreatitis without necrosis or infection, unspecified; M79.7 Fibromyalgia; G43.909 Migraine, unspecified, not intractable, without status migrainosus; J44.9 Chronic obstructive pulmonary disease, unspecified; F43.10 Post-traumatic stress disorder, unspecified; F32.A Depression, unspecified; F41.9 Anxiety disorder, unspecified; F17.290 Nicotine dependence, other tobacco product, uncomplicated; Z79.52 Long term (current) use of systemic steroids; Z88.0 Allergy status to penicillin; Z88.6 Allergy status to analgesic agent; Z88.8 Allergy status to other drugs, medicaments and biological substances; Z87.442 Personal history of urinary calculi
CPT/HCPCS: 71046; 74176; 80053; 81001; 83605; 85025; 87040; 87086; 87430; 99285; C9803; J1642; U0003; U0005

== ENCOUNTER 2022-05-02 13:31 | Emergency (ER) | payer OTHER, SELFPAY ==
[2022-05-02 13:33] VITALS: BP 180/114; PULSE 90; RESP 18; TEMP 36.9; O2SAT 98; BMI 47.5
[2022-05-02 13:41] VITALS: BP 180/114; PULSE 90; RESP 18; O2SAT 97
[2022-05-02 13:44] LABS: Microscopic, Urine URINE MICROSCOPIC (MICROSCOPIC)
[2022-05-02 13:50] LABS: Appearance,Urine SL CLOUDY (Clear); Bilirubin,Urine Negative (Negative); Blood, Urine TRACE-I (Negative); Color,Urine YELLOW (Yellow); Glucose,Urine (UA) Negative (Negative); Ketones,Urine Negative (Negative); Leukocyte Esterase,Urine TRACE (Negative); Nitrate,Urine Negative (Negative); PH,Urine 6.5 (5.0-8.5); Protein,Urine Negative (Negative); Urobilinogen,Urine 0.2 EU/dl (0.2)
[2022-05-02 14:00] VITALS: BP 164/112; PULSE 87; O2SAT 98
[2022-05-02 14:04] LABS: Bacteria,Urine Trace /lpf; RBC,Urine Occasional #/hpf (0-3); Squamous Epithelial Cell,Urine Occasional #/hpf (0-5); WBC,Urine Occasional #/hpf (0-3)
--- NOTE | 2022-05-02 14:18 | HMH.EDGENADL ---
ED Disposition Clinical Impression: Left flank pain Achilles tendinitis Qualifiers: Laterality: right Qualified Code(s): M76.61 - Achilles tendinitis, right leg Kurtz splints Qualifiers: Encounter type: initial encounter Laterality: unspecified laterality Qualified Code(s): S86.899A - Other injury of other muscle(s) and tendon(s) at lower leg level, unspecified leg, initial encounter Disposition: Home, Self-Care Condition on Discharge: Good Instructions: DI for Flank Pain, DI for Achilles Tendinopathy, DI for Kurtz Splint-Adult Additional Instructions: Prednisone as prescribed. Tylenol as needed for pain. Follow-up with primary care provider, call Wednesday for appointment. Prescriptions: predniSONE [Prednisone 20mg Tab] 20 mg PO BID #10 tab Transmission Status: Pending to [facility] Referrals: Landy Carroll [Primary Care Provider] - - Critical Care Critical Care Time: No Attestation: On 05/02/22, the high probability of a clinically significant, sudden or life threatening deterioration of the following system(s) required my full and direct attention, intervention and personal management. The time I documented below is in addition to time spent performing reported procedures but includes the following listed in this critical care notation. Medical Decision Making - Olu Inquiry Pt receiving controlled substance: No Vital Signs: 05/02/22 13:33 05/02/22 13:41 05/02/22 14:00 Temperature 98.5 F Temperature Source Oral Pulse Rate 90 87 Pulse Rate [Radial] 90 Respiratory Rate 18 18 Blood Pressure 180/114 H 164/112 H Blood Pressure [Left Arm] 180/114 H Blood Pressure Mean 124 Blood Pressure Mean [Left Arm] 136 Blood Pressure Source [Left Arm] Automatic Cuff Blood Pressure Position [Left Arm] Sitting 02 Sat by Pulse Oximetry 98 97 98 Oxygen Delivery Method Room Air Room Air Room Air - Lab Data Lab Results 05/02/22 13:35: Urine Color Yellow, Urine Appearance Sl cloudy, Urine pH 6.5, Ur Specific [place] 1.020, Urine Protein Negative, Urine Glucose (UA) Negative, Urine Ketones Negative, Urine Blood Trace-i, Urine Nitrate Negative, Urine Bilirubin Negative, Urine Urobilinogen 0.2, Ur Leukocyte Esterase Trace, Urine RBC Occasional, Urine WBC Occasional, Ur Squamous Epith Cells Occasional, Urine Bacteria Trace Medical Decision Narrative: The patient is very experienced with her symptomatology of previous kidney stones. She says this does not feel like her previous kidney stone. She was last imaged with a CT abdomen and pelvis on 04/10/2022 when I saw her in the emergency department for left flank pain and COVID. She says she thinks her left side pain which has persisted ever since then it is likely due to her coughing due to COVID. She says she was more worried about her difficulty starting her urinary stream and wanted to make sure she did not have a UTI. She was treated for UTI at the time of the emergency department visit 04/10/2022.. Urine culture performed from that visit showed multiple organisms consistent with contamination. General Adult HPI - General Chief complaint: Urogenital-Female Stated complaint: Difficulty urinating, LT side pain, RT ankle pain Time Seen by Provider: 05/02/22 14:18 Mode of Arrival: Ambulatory Limitations: No Limitations Description of Symptoms (Recalled from ER Triage Doc. by RN): PT WITH 1 WEEK HISTORY OF PAINFUL URINATION. STATES IT DOESN'T FEEL LIKE A KIDNEY STONE. ALSO C/O BILATERAL KURTZ PAIN AND RIGHT ANKLE PAIN - History of Present Illness HPI narrative: Patient is known to me from previous emergency department visits. She now complains of a 1 week history of difficulty starting her urinary stream. She also has some left flank pain. She says it does not feel like previous kidney stones. She has a history of frequent kidney stones and has had episodes of sepsis in the past from infected kidney stones. She also says that she wo
--- NOTE | 2022-05-02 14:20 | PC.NURSE ---
ED MD AT BEDSIDE FOR EVALUATION
[2022-05-02 14:44] VITALS: BP 164/112; PULSE 87; RESP 16; TEMP 36.9; O2SAT 98
== END 2022-05-02 14:45 | disposition home or self-care (01) ==
PROVIDERS: Emergency Provider Emergency Medicine; PCP Internal Medicine
DX: R10.9 Unspecified abdominal pain (principal); M76.61 Achilles tendinitis, right leg; S86.899A Other injury of other muscle(s) and tendon(s) at lower leg level, unspecified leg, initial encounter; R39.198 Other difficulties with micturition; Z86.16 Personal history of COVID-19; Z87.442 Personal history of urinary calculi
CPT/HCPCS: 81001; 99283

== ENCOUNTER 2022-05-25 10:24 | Emergency (ER) | payer OTHER, SELFPAY ==
[2022-05-25 10:33] VITALS: BP 174/133; PULSE 108; RESP 18; TEMP 36.9; O2SAT 97; BMI 45.1
--- NOTE | 2022-05-25 10:36 | XR_ITS ---
FINAL REPORT CLINICAL HISTORY: cough COMPARISON: April 10, 2022 FINDINGS: Two views of the chest were obtained. A right-sided chest port is again seen. The heart size and pulmonary vascularity are within normal limits. The mediastinum is normal. No acute pulmonary abnormality is identified. There is no pneumothorax. The bony thorax is intact. IMPRESSION: No active cardiopulmonary disease. Reviewed, Interpreted and Dictated by Nicholas Escobedo III, MD Transcribed by Aubrey Dutton Authenticated and [facility]
[2022-05-25 10:39] LABS: Coronavirus 19, PCR Not Detected (NotDetected); Influenza A, PCR Not Detected (NotDetected); Influenza B, PCR Not Detected (NotDetected)
--- NOTE | 2022-05-25 10:44 | HMH.EDGENADL ---
Discharge Plan Disposition Patient Disposition: Home, Self-Care Condition: Good Prescriptions Prescriptions: New erythromycin 5 mg/gram (0.5 %) ointment 1 applic ophthalmic (eye) TID 7 Days Qty: 3.5 0RF No Action paroxetine HCl 40 mg tablet 60 mg PO DAILY cefdinir 300 MG capsule 300 mg PO BID pregabalin 150 MG capsule 150 mg PO BID nystatin 15 GM ointment 15 gm TP TIDP PRN (Reason: Apply to rash till clear) Qty: 80 0RF promethazine 25 MG tablet 25 mg PO Q6H PRN (Reason: Nausea And Vomiting) Qty: 25 0RF famotidine 20 MG tablet 20 mg PO BID 5 Days Qty: 10 0RF hydrocodone-acetaminophen 1 TAB tablet 1 tab PO Q6HP PRN (Reason: Pain) Qty: 6 0RF ciprofloxacin HCl 500 MG tablet 500 mg PO BID Qty: 20 0RF potassium chloride 20 MEQ tablet extended release 20 meq PO DAILY Qty: 7 0RF nirmatrelvir-ritonavir 1 EACH tablet 1 each PO BID Qty: 1 0RF Rx Instructions: Take bid for 5 days tizanidine 4 MG tablet 4 mg PO TIDP PRN (Reason: Muscle Spasm) losartan 50 MG tablet 50 mg PO DAILY prednisone 20 MG tablet 20 mg PO BID Qty: 10 0RF Referrals Follow up/Referrals: Provider,Referral, MD [Primary Care Provider] - See instructions Activity Restrictions/Add. Instructions Additional Instructions/Restrictions: Put erythromycin ointment and eye 3 times a day for 5 days. If you have any other concerning signs or symptoms, return to the ED for further evaluation. He can also return to primary care provider for further management. Clinical Impressions Clinical Impression: Bronchitis Stand Alone Forms Stand Alone Forms: Work/School Release Instructions Patient Instructions: Sore Throat, Conjunctivitis Discharge ED Provider: Phoenix Hightower General Adult HPI General Chief complaint: Upper Respiratory Infection Stated complaint: Cough, sore throat, drainage, chest pain w/cough Time Seen by Provider: 05/25/22 10:30 Mode of Arrival: Ambulatory Source of Information: Patient Limitations: No Limitations Description of Symptoms (Recalled from ER Triage Doc. by RN): c/o congestion, cough and throat hurting when she swallows History of Present Illness HPI narrative: This is a 36-year-old female with cough, sore throat. Patient states that she has had cough for approximately 5 days productive of yellow sputum. She is only having chest pain when she coughs, it is right-sided. In the absence of coughing, no chest pain. It is nonexertional, not associated with diaphoresis, shortness of breath, nausea, vomiting, does not radiate. 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 Tylenol and naproxen have not helped and nothing in particular makes it b regarding sore throat, it is 6 out of 10, causes pain with swallowing, patient denies pain with range of motion of neck, voice changes, difficulty breathing, stridor, or any other concerning symptoms. Related Data Home Medications Medication Instructions Recorded Confirmed paroxetine HCl 40 mg tablet 60 mg PO DAILY MOOD 10/21/17 02/20/22 tizanidine 4 mg tablet 4 mg PO TIDP PRN Muscle Spasm 03/15/18 02/20/22 losartan 50 mg tablet 50 mg PO DAILY Hypertension 02/03/21 02/20/22 pregabalin 150 mg capsule 150 mg PO BID Pain 02/05/22 02/20/22 cefdinir 300 mg capsule 300 mg PO BID Infection 02/18/22 02/20/22 Previous Rx's Medication Instructions Recorded nystatin 100,000 unit/gram topical 15 gm topical TIDP PRN Apply to 02/07/22 ointment rash till clear ##80 promethazine 25 mg tablet 25 mg PO Q6H PRN Nausea And 02/07/22 Vomiting #25 tabs famotidine 20 mg tablet 20 mg PO BID 5 days #10 tabs 02/21/22 hydrocodone 5 mg-acetaminophen 325 1 tab PO Q6HP PRN Pain #6 tabs 02/21/22 mg tablet ciprofloxacin HCl 500 mg tablet 500 mg PO BID #20 tabs 04/10/22 nirmatrelvir 300 mg (150 m
[2022-05-25 10:48] LABS: Strep Scrn Group A (Rapid) Negative (Negative)
--- NOTE | 2022-05-25 11:14 | ECG_ITS ---
APPROVED REPORT Exam: Resting ECG HR:96 bpm ECG Measurements Heart Rate 96 AXES PA 150 P 37 QRSd 92 QRS 3 QT 346 T 60 QTc 400 Conclusion SINUS RHYTHM NORMAL ECG UNCONFIRMED REPORT Electronically signed by : Fantasma Siddiqi MD 05/25/2022 22:34:37
[2022-05-25 11:26] VITALS: BP 184/102; PULSE 95; O2SAT 95
[2022-05-25 12:32] VITALS: BP 168/78; PULSE 78; RESP 16; TEMP 36.6; O2SAT 98
== END 2022-05-25 12:33 | disposition home or self-care (01) ==
PROVIDERS: Emergency Provider Emergency Medicine
DX: J20.9 Acute bronchitis, unspecified (principal); Z20.822 Contact with and (suspected) exposure to COVID-19
CPT/HCPCS: 71046; 87430; 93005; 99284; C9803; U0003; U0005

== ENCOUNTER 2022-06-28 18:43 | Emergency (ER) | payer OTHER, SELFPAY ==
[2022-06-28 18:44] VITALS: BP 169/124; PULSE 101; RESP 20; TEMP 37.1; O2SAT 96; BMI 45.7
--- NOTE | 2022-06-28 20:21 | HMH.EDURI ---
Discharge Plan Disposition Patient Disposition: Home, Self-Care Prescriptions Prescriptions: New benzonatate 100 mg Capsule 100 mg PO Q8H Qty: 20 0RF oseltamivir [Tamiflu] 75 mg capsule 75 mg PO BID 5 Days Qty: 10 0RF No Action paroxetine HCl 40 mg tablet 60 mg PO DAILY cefdinir 300 MG capsule 300 mg PO BID pregabalin 150 MG capsule 150 mg PO BID nystatin 15 GM ointment 15 gm TP TIDP PRN (Reason: Apply to rash till clear) Qty: 80 0RF promethazine 25 MG tablet 25 mg PO Q6H PRN (Reason: Nausea And Vomiting) Qty: 25 0RF famotidine 20 MG tablet 20 mg PO BID 5 Days Qty: 10 0RF hydrocodone-acetaminophen 1 TAB tablet 1 tab PO Q6HP PRN (Reason: Pain) Qty: 6 0RF ciprofloxacin HCl 500 MG tablet 500 mg PO BID Qty: 20 0RF potassium chloride 20 MEQ tablet extended release 20 meq PO DAILY Qty: 7 0RF nirmatrelvir-ritonavir 1 EACH tablet 1 each PO BID Qty: 1 0RF Rx Instructions: Take bid for 5 days tizanidine 4 MG tablet 4 mg PO TIDP PRN (Reason: Muscle Spasm) losartan 50 MG tablet 50 mg PO DAILY prednisone 20 MG tablet 20 mg PO BID Qty: 10 0RF erythromycin 5 mg/gram (0.5 %) ointment 1 applic ophthalmic (eye) TID 7 Days Qty: 3.5 0RF Referrals Follow up/Referrals: Provider,Referral, MD [Primary Care Provider] - See instructions Clinical Impressions Clinical Impression: Flu syndrome Instructions Patient Instructions: DI for Influenza -- Adult Discharge ED Provider: Leonel Rivera URI/Sore Throat HPI General Chief Complaint: Upper Respiratory Infection Stated Complaint: cough,SOA Time Seen by Provider: 06/28/22 20:21 Mode of Arrival: Ambulatory Source of Information: Patient and Medical Record Limitations: No Limitations Description of Symptoms (Recalled from ER Triage Doc. by RN): pt states that she had a cough that started wednesday after work then wednesday had a fever and body aches, wednesday started coughing up stuff and wednesday the wheezing started pt statred she took an at home covid test and it was neg History of Present Illness HPI Narrative: cough with fever and body aches over the last few days - prod cough and has wheezing reported MD Complaint: fever, cough and nasal congestion Onset (ago): hour(s) Severity: moderate Able to tolerate fluids by mouth: Yes Associated symptoms: denies other symptoms Treatments prior to arrival: acetaminophen Related Data Home Medications Medication Instructions Recorded Confirmed paroxetine HCl 40 mg tablet 60 mg PO DAILY MOOD 10/21/17 02/20/22 tizanidine 4 mg tablet 4 mg PO TIDP PRN Muscle Spasm 03/15/18 02/20/22 losartan 50 mg tablet 50 mg PO DAILY Hypertension 02/03/21 02/20/22 pregabalin 150 mg capsule 150 mg PO BID Pain 02/05/22 02/20/22 cefdinir 300 mg capsule 300 mg PO BID Infection 02/18/22 02/20/22 Previous Rx's Medication Instructions Recorded nystatin 100,000 unit/gram topical 15 gm topical TIDP PRN Apply to 02/07/22 ointment rash till clear ##80 promethazine 25 mg tablet 25 mg PO Q6H PRN Nausea And 02/07/22 Vomiting #25 tabs famotidine 20 mg tablet 20 mg PO BID 5 days #10 tabs 02/21/22 hydrocodone 5 mg-acetaminophen 325 1 tab PO Q6HP PRN Pain #6 tabs 02/21/22 mg tablet ciprofloxacin HCl 500 mg tablet 500 mg PO BID #20 tabs 04/10/22 nirmatrelvir 300 mg (150 mg 1 each PO BID #1 packet 04/10/22 x2)-ritonavir 100 mg tablet,dose pack(EUA) potassium chloride 20 mEq 20 meq PO DAILY #7 tabs 04/10/22 tablet,extended release prednisone 20 mg tablet 20 mg PO BID #10 tabs 05/02/22 erythromycin 5 mg/gram (0.5 %) eye 1 applic ophthalmic (eye) TID 7 05/25/22 ointment days #3.5 grams benzonatate 100 mg capsule 100 mg PO Q8H #20 caps 06/28/22 oseltamivir 75 mg capsule (Tamiflu) 75 mg PO BID 5 days #10 caps 06/28/22 Allergies Allergy/AdvReac Type Severity Reaction Status Date / Time Penicillins Allergy Severe Hives Verified 02/20/22 08:59 gatifloxaci
[2022-06-28 20:22] LABS: Coronavirus 19, PCR Not Detected (NotDetected); Influenza B, PCR Not Detected (NotDetected)
[2022-06-28 21:03] LABS: Influenza A, PCR Detected (NotDetected)
[2022-06-28 21:43] VITALS: BP 164/110; PULSE 86; RESP 16; TEMP 36.9; O2SAT 96
== END 2022-06-28 21:45 | disposition home or self-care (01) ==
PROVIDERS: Emergency Provider Emergency Medicine
DX: J10.1 Influenza due to other identified influenza virus with other respiratory manifestations (principal); R06.02 Shortness of breath; R21 Rash and other nonspecific skin eruption; R50.9 Fever, unspecified; R11.0 Nausea; R09.81 Nasal congestion; Z20.822 Contact with and (suspected) exposure to COVID-19; Z79.52 Long term (current) use of systemic steroids; M62.838 Other muscle spasm; Z88.0 Allergy status to penicillin; Z88.5 Allergy status to narcotic agent; Z88.6 Allergy status to analgesic agent; Z88.8 Allergy status to other drugs, medicaments and biological substances
CPT/HCPCS: 99283; C9803; U0003; U0005

== ENCOUNTER 2022-08-02 23:14 | Emergency (ER) | payer OTHER, SELFPAY ==
[2022-08-02 23:26] VITALS: BP 179/118; PULSE 113; RESP 18; TEMP 37.3; O2SAT 96; BMI 45.7
--- NOTE | 2022-08-02 23:30 | XR_ITS ---
PROCEDURE INFORMATION: Exam: XR Chest Exam date and time: 08/02/2022 11:37 PM Age: 36 years old Clinical indication: Cough; Prior surgery; Surgery type: Port inserted TECHNIQUE: Imaging protocol: Radiologic exam of the chest. Views: 2 views. COMPARISON: CR XR CHEST 2V 05/25/2022 10:44 AM FINDINGS: Tubes, catheters and devices: Central venous port catheter tip projects over the mid SVC. Lungs: Focal airspace consolidation in the right lower lobe. Pleural spaces: Unremarkable. No pleural effusion. No pneumothorax. Heart/Mediastinum: Unremarkable. No cardiomegaly. Bones/joints: Unremarkable. IMPRESSION: Right lower lobe pneumonia.
[2022-08-02 23:43] LABS: Coronavirus 19, PCR Not Detected (NotDetected); Influenza A, PCR Not Detected (NotDetected); Influenza B, PCR Not Detected (NotDetected)
--- NOTE | 2022-08-03 00:34 | HMH.EDURI ---
Discharge Plan Disposition Patient Disposition: Home, Self-Care Prescriptions Prescriptions: New azithromycin [azithromycin] 250 mg tablet 250 mg PO DIRECTED Qty: 6 0RF Rx Instructions: Take two (2) tablets on day #1, then one (1) tablet day #2 thru #5 benzonatate 100 mg Capsule 100 mg PO Q8H Qty: 20 0RF prednisone [prednisone] 20 mg tablet 20 mg PO BID Qty: 10 0RF No Action paroxetine HCl 40 mg tablet 60 mg PO DAILY cefdinir 300 MG capsule 300 mg PO BID pregabalin 150 MG capsule 150 mg PO BID nystatin 15 GM ointment 15 gm TP TIDP PRN (Reason: Apply to rash till clear) Qty: 80 0RF promethazine 25 MG tablet 25 mg PO Q6H PRN (Reason: Nausea And Vomiting) Qty: 25 0RF famotidine 20 MG tablet 20 mg PO BID 5 Days Qty: 10 0RF hydrocodone-acetaminophen 1 TAB tablet 1 tab PO Q6HP PRN (Reason: Pain) Qty: 6 0RF ciprofloxacin HCl 500 MG tablet 500 mg PO BID Qty: 20 0RF potassium chloride 20 MEQ tablet extended release 20 meq PO DAILY Qty: 7 0RF nirmatrelvir-ritonavir 1 EACH tablet 1 each PO BID Qty: 1 0RF Rx Instructions: Take bid for 5 days benzonatate 100 mg Capsule 100 mg PO Q8H Qty: 20 0RF oseltamivir [Tamiflu] 75 mg capsule 75 mg PO BID 5 Days Qty: 10 0RF tizanidine 4 MG tablet 4 mg PO TIDP PRN (Reason: Muscle Spasm) losartan 50 MG tablet 50 mg PO DAILY prednisone 20 MG tablet 20 mg PO BID Qty: 10 0RF erythromycin 5 mg/gram (0.5 %) ointment 1 applic ophthalmic (eye) TID 7 Days Qty: 3.5 0RF Referrals Follow up/Referrals: Jojo Whyte APRN [Primary Care Provider] - See instructions Clinical Impressions Clinical Impression: CAP (community acquired pneumonia) Instructions Patient Instructions: Pneumonia-Adult Discharge ED Provider: Leonel Rivera URI/Sore Throat HPI General Chief Complaint: Upper Respiratory Infection Stated Complaint: cough,SOA,body aches Time Seen by Provider: 08/03/22 00:38 Mode of Arrival: Ambulatory Source of Information: Patient and Medical Record Limitations: No Limitations Description of Symptoms (Recalled from ER Triage Doc. by RN): pt c/o bodyaches with cold chills and cough since . History of Present Illness HPI Narrative: achey with cough and chills x 3 days Complaint: cough and nasal congestion Onset (ago): day(s) Duration: intermittent Severity: moderate Associated symptoms: denies other symptoms Related Data Home Medications Medication Instructions Recorded Confirmed paroxetine HCl 40 mg tablet 60 mg PO DAILY MOOD 10/21/17 02/20/22 tizanidine 4 mg tablet 4 mg PO TIDP PRN Muscle Spasm 03/15/18 02/20/22 losartan 50 mg tablet 50 mg PO DAILY Hypertension 02/03/21 02/20/22 pregabalin 150 mg capsule 150 mg PO BID Pain 02/05/22 02/20/22 cefdinir 300 mg capsule 300 mg PO BID Infection 02/18/22 02/20/22 Previous Rx's Medication Instructions Recorded nystatin 100,000 unit/gram topical 15 gm topical TIDP PRN Apply to 02/07/22 ointment rash till clear ##80 promethazine 25 mg tablet 25 mg PO Q6H PRN Nausea And 02/07/22 Vomiting #25 tabs famotidine 20 mg tablet 20 mg PO BID 5 days #10 tabs 02/21/22 hydrocodone 5 mg-acetaminophen 325 1 tab PO Q6HP PRN Pain #6 tabs 02/21/22 mg tablet ciprofloxacin HCl 500 mg tablet 500 mg PO BID #20 tabs 04/10/22 nirmatrelvir 300 mg (150 mg 1 each PO BID #1 packet 04/10/22 x2)-ritonavir 100 mg tablet,dose pack(EUA) potassium chloride 20 mEq 20 meq PO DAILY #7 tabs 04/10/22 tablet,extended release prednisone 20 mg tablet 20 mg PO BID #10 tabs 05/02/22 erythromycin 5 mg/gram (0.5 %) eye 1 applic ophthalmic (eye) TID 7 05/25/22 ointment days #3.5 grams benzonatate 100 mg capsule 100 mg PO Q8H #20 caps 06/28/22 oseltamivir 75 mg capsule (Tamiflu) 75 mg PO BID 5 days #10 caps 06/28/22 azithromycin 250 mg tablet 250 mg PO DIRECTED #6 tabs 08/03/22 benzonatate 100 mg capsule 100 mg PO Q8H #20 ca
[2022-08-03 00:39] VITALS: BP 167/97; PULSE 100; RESP 18; TEMP 37.3; O2SAT 96
== END 2022-08-03 00:49 | disposition home or self-care (01) ==
PROVIDERS: Emergency Provider Emergency Medicine; PCP Nurse Practitioner Family
DX: J18.9 Pneumonia, unspecified organism (principal); J06.9 Acute upper respiratory infection, unspecified; Z20.822 Contact with and (suspected) exposure to COVID-19; Z11.2 Encounter for screening for other bacterial diseases; M62.838 Other muscle spasm; F17.290 Nicotine dependence, other tobacco product, uncomplicated; Z79.52 Long term (current) use of systemic steroids; Z79.899 Other long term (current) drug therapy; Z88.0 Allergy status to penicillin; Z88.5 Allergy status to narcotic agent; Z88.6 Allergy status to analgesic agent; Z88.8 Allergy status to other drugs, medicaments and biological substances
CPT/HCPCS: 71046; 99283; C9803; U0003; U0005

== ENCOUNTER 2022-08-04 18:18 | Emergency (ER) | payer OTHER, SELFPAY ==
[2022-08-04 18:19] VITALS: BP 169/110; PULSE 89; RESP 16; TEMP 36.9; O2SAT 98; BMI 44.8
--- NOTE | 2022-08-04 18:49 | PC.NURSE ---
KIP PALOMINO at
--- NOTE | 2022-08-04 18:54 | XR_ITS ---
PROCEDURE INFORMATION: Exam: XR Chest Exam date and time: 08/04/2022 7:08 PM Age: 36 years old Clinical indication: Condition or disease; Other: Worsening pneumonia; Prior surgery; Surgery date: 1-6 months; Surgery type: Port a cath placed; Additional info: Pneumonia, worsening TECHNIQUE: Imaging protocol: Radiologic exam of the chest. Views: 2 views. COMPARISON: CR XR CHEST 2V 08/02/2022 11:37 PM FINDINGS: Lungs: Interval improvement in right lower lobe airspace consolidation. No new or worsening airspace consolidation. No appreciable pulmonary edema. Pleural spaces: No pleural effusion. No pneumothorax. Heart/Mediastinum: Cardiomediastinal silouhette is within normal limits. Vasculature: Right subclavian approach central venous port catheter in stable position. Bones/joints: No evidence of acute osseous abnormality. IMPRESSION: Interval improvement in right lower lobe airspace consolidation.
--- NOTE | 2022-08-04 18:54 | HMH.EDGENADL ---
Discharge Plan Disposition Patient Disposition: Home, Self-Care Condition: Good Prescriptions Prescriptions: New hydrocodone-guaifenesin 2.5-200 mg/5 mL solution 10 ml PO Q6H PRN (Reason: cough) Qty: 118 0RF No Action paroxetine HCl 40 mg tablet 60 mg PO DAILY cefdinir 300 MG capsule 300 mg PO BID pregabalin 150 MG capsule 150 mg PO BID nystatin 15 GM ointment 15 gm TP TIDP PRN (Reason: Apply to rash till clear) Qty: 80 0RF promethazine 25 MG tablet 25 mg PO Q6H PRN (Reason: Nausea And Vomiting) Qty: 25 0RF famotidine 20 MG tablet 20 mg PO BID 5 Days Qty: 10 0RF hydrocodone-acetaminophen 1 TAB tablet 1 tab PO Q6HP PRN (Reason: Pain) Qty: 6 0RF ciprofloxacin HCl 500 MG tablet 500 mg PO BID Qty: 20 0RF potassium chloride 20 MEQ tablet extended release 20 meq PO DAILY Qty: 7 0RF nirmatrelvir-ritonavir 1 EACH tablet 1 each PO BID Qty: 1 0RF Rx Instructions: Take bid for 5 days benzonatate 100 mg Capsule 100 mg PO Q8H Qty: 20 0RF oseltamivir [Tamiflu] 75 mg capsule 75 mg PO BID 5 Days Qty: 10 0RF azithromycin [azithromycin] 250 mg tablet 250 mg PO DIRECTED Qty: 6 0RF Rx Instructions: Take two (2) tablets on day #1, then one (1) tablet day #2 thru #5 benzonatate 100 mg Capsule 100 mg PO Q8H Qty: 20 0RF prednisone [prednisone] 20 mg tablet 20 mg PO BID Qty: 10 0RF tizanidine 4 MG tablet 4 mg PO TIDP PRN (Reason: Muscle Spasm) losartan 50 MG tablet 50 mg PO DAILY prednisone 20 MG tablet 20 mg PO BID Qty: 10 0RF erythromycin 5 mg/gram (0.5 %) ointment 1 applic ophthalmic (eye) TID 7 Days Qty: 3.5 0RF Referrals Follow up/Referrals: Jojo Whyte APRN [Primary Care Provider] - See instructions Activity Restrictions/Add. Instructions Additional Instructions/Restrictions: Finish antibiotic as prescribed. Hydrocodone containing cough medication as needed. May also take ibuprofen or Tylenol as needed for pain. Additional instructions for PNEUMONIA: Take antibiotics as prescribed. See your physician as soon as possible for further evaluation. Return immediately if you have an uncontrollable fever greater than 102 degrees, difficulty breathing or shortness of breath, persistent vomiting, or severe chest pain. Additional instructions for CONTROLLED SUBSTANCES: You have been prescribed a medication that is a controlled substance. Controlled substances include pain medications known as opiates and sedative nerve medications known as benzodiazepines. Tramadol, fioricet, and gabapentin are also controlled substances. Some common opiates include: Codeine (such as Tylenol #3) Hydrocodone (Vicodin, Lortab, Lorcet, [place]) Oxycodone (Percocet, Percodan, Oxycodone, Oxy IR) Some common benzodiazepines include: Diazepam (Valium) Lorazepam (Ativan) Alprazolam (Xanax) Clonazepam (Klonopin) Oxazepam (Serax) All of these controlled substances are highly addictive and frequently abused. Misuse can and frequently does lead to addiction as well as overdose and . Medication should be stored in a locked cabinet or other secure storage unit. Do not store the medication in a motor vehicle. Short term supplies, 3 days or less, are prescribed because of the highly addictive nature of the medication. Any of the controlled substance medication NOT taken should be disposed of properly and NOT SAVED. The recommended method of disposing of unused medications is: Place the medicines in a sealable plastic bag. If the medicine is a solid, crush it or add water to dissolve it. Add something undesirable (cat litter, coffee grounds, etc.) Dispose of sealed bag in household trash Do not flush or pour unused medicines down a sink or drain. Controlled substances should not be shared, given away or sold. Because of the addictive nature and frequent abuse, these medications are sometimes stolen. The
[2022-08-04 19:41] VITALS: BP 154/98; PULSE 88; RESP 18; TEMP 36.6; O2SAT 97
== END 2022-08-04 19:43 | disposition home or self-care (01) ==
PROVIDERS: Emergency Provider Emergency Medicine; PCP Nurse Practitioner Family
DX: J06.9 Acute upper respiratory infection, unspecified (principal); J18.9 Pneumonia, unspecified organism; R11.2 Nausea with vomiting, unspecified; R21 Rash and other nonspecific skin eruption; R07.81 Pleurodynia; R06.02 Shortness of breath; R50.9 Fever, unspecified; M62.838 Other muscle spasm; F41.1 Generalized anxiety disorder; F17.290 Nicotine dependence, other tobacco product, uncomplicated; Z79.1 Long term (current) use of non-steroidal anti-inflammatories (NSAID); Z79.52 Long term (current) use of systemic steroids; Z79.899 Other long term (current) drug therapy; Z88.0 Allergy status to penicillin; Z88.5 Allergy status to narcotic agent; Z88.6 Allergy status to analgesic agent
CPT/HCPCS: 71046; 99283

== ENCOUNTER 2022-08-16 05:59 | Emergency (ER) | payer OTHER, SELFPAY ==
[2022-08-16 06:09] VITALS: BP 149/104; PULSE 50; RESP 18; TEMP 36.6; O2SAT 98; BMI 45.3
--- NOTE | 2022-08-16 06:13 | CT_ITS ---
PROCEDURE INFORMATION: Exam: CT Abdomen And Pelvis Without Contrast Exam date and time: 08/16/2022 6:32 AM Age: 36 years old Clinical indication: Pain; Other: Flank; Additional info: Abd and flank pain left side TECHNIQUE: Imaging protocol: Computed tomography of the abdomen and pelvis without contrast. Radiation optimization: All CT scans at this facility use at least one of these dose optimization techniques: automated exposure control; mA and/or kV adjustment per patient size (includes targeted exams where dose is matched to clinical indication); or iterative reconstruction. COMPARISON: CT ABDOMEN PELVIS WO CON 04/10/2022 11:50 AM FINDINGS: Detailed evaluation of the abdominal and pelvic viscera is somewhat limited in the absence of intravenous contrast. Lungs: No significant airspace or pleural disease. Liver: Fatty infiltration of the liver. Gallbladder and bile ducts: Status post cholecystectomy. Pancreas: No pancreatic mass or ductal dilatation. Spleen: Mildly enlarged spleen measuring 12.3 cm in length. 1.8 cm accessory spleen. Adrenal glands: Unremarkable adrenals. Kidneys and ureters: Nonobstructing 2 mm left renal calculus. lobulated renal morphology. Stomach and bowel: Prominent stool. Diverticula, without pericolonic inflammation. Appendix: No acute appendicitis. Intraperitoneal space: no significant free fluid. Vasculature: normal caliber of the abdominal aorta. Lymph nodes: Multiple lymph nodes, the majority of which are subcentimeter in size. Urinary bladder: Nondistended bladder. Reproductive: status post hysterectomy. Bones/joints: Mild scoliosis. Soft tissues: Fat containing umbilical hernia. IMPRESSION: 1. Nonobstructing 2 mm left renal calculus. 2. Additional findings as described above.
[2022-08-16 06:18] LABS: Microscopic, Urine URINE MICROSCOPIC (MICROSCOPIC)
[2022-08-16 06:24] LABS: Appearance,Urine CLEAR (Clear); Bilirubin,Urine Negative (Negative); Blood, Urine Negative (Negative); Color,Urine YELLOW (Yellow); Glucose,Urine (UA) Negative (Negative); Ketones,Urine Negative (Negative); Leukocyte Esterase,Urine 1+ (Negative); Nitrate,Urine Negative (Negative); Protein,Urine Negative (Negative); Specific Gravity, Urine 1.015 (1.005-1.030); Urobilinogen,Urine 0.2 EU/dl (0.2)
[2022-08-16 06:40] LABS: Bacteria,Urine 1+ /lpf
--- NOTE | 2022-08-16 07:06 | HMH.EDBACK ---
Discharge Plan Disposition Patient Disposition: Home, Self-Care Prescriptions Prescriptions: New nitrofurantoin monohyd/m-cryst [Macrobid] 100 mg capsule 100 mg PO Q12H 5 Days Qty: 10 0RF Rx Instructions: must administer with a meal/food No Action paroxetine HCl 40 mg tablet 60 mg PO DAILY cefdinir 300 MG capsule 300 mg PO BID pregabalin 150 MG capsule 150 mg PO BID nystatin 15 GM ointment 15 gm TP TIDP PRN (Reason: Apply to rash till clear) Qty: 80 0RF promethazine 25 MG tablet 25 mg PO Q6H PRN (Reason: Nausea And Vomiting) Qty: 25 0RF famotidine 20 MG tablet 20 mg PO BID 5 Days Qty: 10 0RF hydrocodone-acetaminophen 1 TAB tablet 1 tab PO Q6HP PRN (Reason: Pain) Qty: 6 0RF ciprofloxacin HCl 500 MG tablet 500 mg PO BID Qty: 20 0RF potassium chloride 20 MEQ tablet extended release 20 meq PO DAILY Qty: 7 0RF nirmatrelvir-ritonavir 1 EACH tablet 1 each PO BID Qty: 1 0RF Rx Instructions: Take bid for 5 days benzonatate 100 mg Capsule 100 mg PO Q8H Qty: 20 0RF oseltamivir [Tamiflu] 75 mg capsule 75 mg PO BID 5 Days Qty: 10 0RF azithromycin [azithromycin] 250 mg tablet 250 mg PO DIRECTED Qty: 6 0RF Rx Instructions: Take two (2) tablets on day #1, then one (1) tablet day #2 thru #5 benzonatate 100 mg Capsule 100 mg PO Q8H Qty: 20 0RF prednisone [prednisone] 20 mg tablet 20 mg PO BID Qty: 10 0RF hydrocodone-guaifenesin 2.5-200 mg/5 mL solution 10 ml PO Q6H PRN (Reason: cough) Qty: 118 0RF hydrocodone-homatropine [Hycodan (with homatropine)] 5-1.5 mg/5 mL syrup 5 ml PO Q6H PRN (Reason: cough) Qty: 120 0RF tizanidine 4 MG tablet 4 mg PO TIDP PRN (Reason: Muscle Spasm) losartan 50 MG tablet 50 mg PO DAILY prednisone 20 MG tablet 20 mg PO BID Qty: 10 0RF erythromycin 5 mg/gram (0.5 %) ointment 1 applic ophthalmic (eye) TID 7 Days Qty: 3.5 0RF Referrals Follow up/Referrals: Jojo Whyte APRN [Primary Care Provider] - See instructions Clinical Impressions Clinical Impression: Flank pain, acute Instructions Patient Instructions: DI for Flank Pain Discharge ED Provider: Leonel Rivera Back Pain HPI General Chief Complaint: Back Pain/Injury Stated Complaint: Pain in lower back,pain with urination Time Seen by Provider: 08/16/22 07:06 Mode of Arrival: Ambulatory Source of Information: Patient and Medical Record Limitations: No Limitations Description of Symptoms (Recalled from ER Triage Doc. by RN): Pt c/o left sided flank pain. States she believes it's a kidney stone since she's had several and knows what they feel like. Pt statest that the flank pain radiates into her left abdomen and she has had pressure with urination. States the flank pain has been going on for over a week but the pressure with urination and the pain got more severe at 2100. History of Present Illness HPI Narrative: pt with lt flank pain and hx of kidney stones and feeling of urinary sx and worse over the last week MD Complaint: back pain Onset (ago): day(s) Duration: intermittent Similar Symptoms Previously: Yes Location: left flank Severity: moderate Associated symptoms: denies other symptoms Related Data Home Medications Medication Instructions Recorded Confirmed paroxetine HCl 40 mg tablet 60 mg PO DAILY MOOD 10/21/17 02/20/22 tizanidine 4 mg tablet 4 mg PO TIDP PRN Muscle Spasm 03/15/18 02/20/22 losartan 50 mg tablet 50 mg PO DAILY Hypertension 02/03/21 02/20/22 pregabalin 150 mg capsule 150 mg PO BID Pain 02/05/22 02/20/22 cefdinir 300 mg capsule 300 mg PO BID Infection 02/18/22 02/20/22 Previous Rx's Medication Instructions Recorded nystatin 100,000 unit/gram topical 15 gm topical TIDP PRN Apply to 02/07/22 ointment rash till clear ##80 promethazine 25 mg tablet 25 mg PO Q6H PRN Nausea And 02/07/22 Vomiting #25 tabs famotidine 20 mg tablet 20 mg PO BID 5 days #10 tabs
[2022-08-16 08:08] VITALS: BP 167/108; PULSE 95; RESP 17; TEMP 36.7; O2SAT 97
== END 2022-08-16 08:10 | disposition home or self-care (01) ==
PROVIDERS: Emergency Provider Emergency Medicine; PCP Nurse Practitioner Family
DX: R10.9 Unspecified abdominal pain (principal); R30.0 Dysuria; M54.9 Dorsalgia, unspecified
CPT/HCPCS: 74176; 81001; 87086; 99284

== ENCOUNTER 2022-08-23 21:17 | Emergency (ER) | payer OTHER, SELFPAY ==
[2022-08-23 21:19] VITALS: BP 172/98; PULSE 116; RESP 16; TEMP 37.1; O2SAT 96; BMI 45.1
--- NOTE | 2022-08-23 21:31 | XR_ITS ---
PROCEDURE INFORMATION: Exam: XR Chest Exam date and time: 08/23/2022 9:30 PM Age: 36 years old Clinical indication: Cough TECHNIQUE: Imaging protocol: Radiologic exam of the chest. Views: 2 views. COMPARISON: CR XR CHEST 2V 08/04/2022 7:08 PM FINDINGS: Tubes, catheters and devices: Right subclavian port-type catheter remains in satisfactory position. Lungs: Unremarkable. No consolidation. Pleural spaces: Unremarkable. No pleural effusion. No pneumothorax. Heart/Mediastinum: Unremarkable. No cardiomegaly. Bones/joints: Unremarkable. IMPRESSION: No acute cardiopulmonary abnormality.
--- NOTE | 2022-08-23 21:38 | PC.NURSE ---
Pt gone to RAD
--- NOTE | 2022-08-23 21:41 | PC.NURSE ---
Pt back from RAD
--- NOTE | 2022-08-23 22:24 | HMH.EDURI ---
Discharge Plan Disposition Patient Disposition: Home, Self-Care Prescriptions Prescriptions: New prednisone [prednisone] 20 mg tablet 20 mg PO BID Qty: 10 0RF No Action paroxetine HCl 40 mg tablet 60 mg PO DAILY cefdinir 300 MG capsule 300 mg PO BID pregabalin 150 MG capsule 150 mg PO BID nystatin 15 GM ointment 15 gm TP TIDP PRN (Reason: Apply to rash till clear) Qty: 80 0RF promethazine 25 MG tablet 25 mg PO Q6H PRN (Reason: Nausea And Vomiting) Qty: 25 0RF famotidine 20 MG tablet 20 mg PO BID 5 Days Qty: 10 0RF hydrocodone-acetaminophen 1 TAB tablet 1 tab PO Q6HP PRN (Reason: Pain) Qty: 6 0RF ciprofloxacin HCl 500 MG tablet 500 mg PO BID Qty: 20 0RF potassium chloride 20 MEQ tablet extended release 20 meq PO DAILY Qty: 7 0RF nirmatrelvir-ritonavir 1 EACH tablet 1 each PO BID Qty: 1 0RF Rx Instructions: Take bid for 5 days benzonatate 100 mg Capsule 100 mg PO Q8H Qty: 20 0RF oseltamivir [Tamiflu] 75 mg capsule 75 mg PO BID 5 Days Qty: 10 0RF azithromycin [azithromycin] 250 mg tablet 250 mg PO DIRECTED Qty: 6 0RF Rx Instructions: Take two (2) tablets on day #1, then one (1) tablet day #2 thru #5 benzonatate 100 mg Capsule 100 mg PO Q8H Qty: 20 0RF prednisone [prednisone] 20 mg tablet 20 mg PO BID Qty: 10 0RF hydrocodone-guaifenesin 2.5-200 mg/5 mL solution 10 ml PO Q6H PRN (Reason: cough) Qty: 118 0RF hydrocodone-homatropine [Hycodan (with homatropine)] 5-1.5 mg/5 mL syrup 5 ml PO Q6H PRN (Reason: cough) Qty: 120 0RF tizanidine 4 MG tablet 4 mg PO TIDP PRN (Reason: Muscle Spasm) losartan 50 MG tablet 50 mg PO DAILY prednisone 20 MG tablet 20 mg PO BID Qty: 10 0RF erythromycin 5 mg/gram (0.5 %) ointment 1 applic ophthalmic (eye) TID 7 Days Qty: 3.5 0RF nitrofurantoin monohyd/m-cryst [Macrobid] 100 mg capsule 100 mg PO Q12H 5 Days Qty: 10 0RF Rx Instructions: must administer with a meal/food Referrals Follow up/Referrals: Jojo Whyte APRN [Primary Care Provider] - See instructions Yahir Palomo MD [Physician] - See instructions Clinical Impressions Clinical Impression: Exacerbation of reactive airway disease Instructions Patient Instructions: DI for Reactive Airway Disease-Adult Discharge ED Provider: Leonel Rivera URI/Sore Throat HPI General Chief Complaint: Upper Respiratory Infection Stated Complaint: knot on stomach, cough,body aches Time Seen by Provider: 08/23/22 22:25 Mode of Arrival: Ambulatory Source of Information: Patient and Medical Record Limitations: No Limitations Description of Symptoms (Recalled from ER Triage Doc. by RN): pt c/o body aches, coughing, wheezing and has a knot come outof lower abd when she coughs. History of Present Illness HPI Narrative: uri sx and coough over the last few days - pt has been having recurrent episodes over the last month - also has area near rt umbilical area with cough -that feels like knot Complaint: cough Onset (ago): day(s) Duration: intermittent Severity: moderate Able to tolerate fluids by mouth: Yes Associated symptoms: denies other symptoms Related Data Home Medications Medication Instructions Recorded Confirmed paroxetine HCl 40 mg tablet 60 mg PO DAILY MOOD 10/21/17 02/20/22 tizanidine 4 mg tablet 4 mg PO TIDP PRN Muscle Spasm 03/15/18 02/20/22 losartan 50 mg tablet 50 mg PO DAILY Hypertension 02/03/21 02/20/22 pregabalin 150 mg capsule 150 mg PO BID Pain 02/05/22 02/20/22 cefdinir 300 mg capsule 300 mg PO BID Infection 02/18/22 02/20/22 Previous Rx's Medication Instructions Recorded nystatin 100,000 unit/gram topical 15 gm topical TIDP PRN Apply to 02/07/22 ointment rash till clear ##80 promethazine 25 mg tablet 25 mg PO Q6H PRN Nausea And 02/07/22 Vomiting #25 tabs famotidine 20 mg tablet 20 mg PO BID 5 days #10 tabs 02/21/22 hydrocodone 5 mg-acetaminophe
[2022-08-23 22:30] LABS: Adenovirus,PCR Not Detected (NotDetected); Bordetella Pertussis Not Detected (NotDetected); Chlamydophila Pneumoniae, PCR Not Detected (NotDetected); Coronavirus 19, PCR Not Detected (NotDetected); Coronavirus 229E Not Detected (NotDetected); Coronavirus NL63 Not Detected (NotDetected); Coronavirus OC43 Not Detected (NotDetected); Coronovirus HKU1,PCR Not Detected (NotDetected); Human Metapneumovirus Not Detected (NotDetected); Influenza A, PCR Not Detected (NotDetected); Influenza AH1, 2009 Not Detected (NotDetected); Influenza AH1, PCR Not Detected (NotDetected); Influenza AH3,PCR Not Detected (NotDetected); Influenza B, PCR Not Detected (NotDetected); Mycoplasma Pneumoniae, PCR Not Detected (NotDetected); Parainfluenza 1, PCR Not Detected (NotDetected); Parainfluenza 2, PCR Not Detected (NotDetected); Parainfluenza 3, PCR Not Detected (NotDetected); Parainfluenza 4, PCR Not Detected (NotDetected); Respiratory Syncytial Virus Not Detected (NotDetected)
[2022-08-23 23:06] VITALS: BP 165/89; PULSE 100; RESP 16; TEMP 37.1; O2SAT 96
[2022-08-23 23:56] LABS: Rhinovirus/Enterovirus Detected (NotDetected)
== END 2022-08-23 23:07 | disposition home or self-care (01) ==
PROVIDERS: Emergency Provider Emergency Medicine; PCP Nurse Practitioner Family
DX: J45.901 Unspecified asthma with (acute) exacerbation (principal); R21 Rash and other nonspecific skin eruption; M79.10 Myalgia, unspecified site; R05.9 Cough, unspecified; R11.2 Nausea with vomiting, unspecified; Z20.822 Contact with and (suspected) exposure to COVID-19; F17.290 Nicotine dependence, other tobacco product, uncomplicated; Z79.52 Long term (current) use of systemic steroids; Z79.899 Other long term (current) drug therapy; Z88.0 Allergy status to penicillin; Z88.5 Allergy status to narcotic agent; Z88.6 Allergy status to analgesic agent; Z88.8 Allergy status to other drugs, medicaments and biological substances
CPT/HCPCS: 71046; 87581; 87632; 87798; 99283; C9803; U0003; U0005

== ENCOUNTER 2023-05-03 14:31 | Emergency (ER) | payer OTHER, SELFPAY ==
[2023-05-03 15:25] VITALS: BP 177/123; PULSE 89; RESP 18; TEMP 36.6; O2SAT 100; BMI 43.9
[2023-05-03 15:38] VITALS: BP 183/125
[2023-05-03 15:38] LABS: Microscopic, Urine URINE MICROSCOPIC (MICROSCOPIC)
[2023-05-03 16:04] LABS: Appearance,Urine SL CLOUDY (Clear); Bilirubin,Urine Negative (Negative); Blood, Urine TRACE-I (Negative); Color,Urine YELLOW (Yellow); Glucose,Urine (UA) Negative (Negative); Ketones,Urine Negative (Negative); Leukocyte Esterase,Urine 2+ (Negative); Nitrate,Urine POSITIVE (Negative); Protein,Urine TRACE (Negative); Specific Gravity, Urine 1.025 (1.005-1.030); Urobilinogen,Urine 0.2 EU/dl (0.2)
--- NOTE | 2023-05-03 16:24 | HMH.EDGENADL ---
Discharge Plan Disposition Patient Disposition: Home, Self-Care Condition: Good Prescriptions Prescriptions: New tamsulosin [Flomax] 0.4 mg capsule 0.4 mg PO DAILY Qty: 14 0RF No Action paroxetine HCl 40 mg tablet 60 mg PO DAILY cefdinir 300 MG capsule 300 mg PO BID pregabalin 150 MG capsule 150 mg PO BID nystatin 15 GM ointment 15 gm TP TIDP PRN (Reason: Apply to rash till clear) Qty: 80 0RF promethazine 25 MG tablet 25 mg PO Q6H PRN (Reason: Nausea And Vomiting) Qty: 25 0RF famotidine 20 MG tablet 20 mg PO BID 5 Days Qty: 10 0RF hydrocodone-acetaminophen 1 TAB tablet 1 tab PO Q6HP PRN (Reason: Pain) Qty: 6 0RF ciprofloxacin HCl 500 MG tablet 500 mg PO BID Qty: 20 0RF potassium chloride 20 MEQ tablet extended release 20 meq PO DAILY Qty: 7 0RF nirmatrelvir-ritonavir 1 EACH tablet 1 each PO BID Qty: 1 0RF Rx Instructions: Take bid for 5 days benzonatate 100 mg Capsule 100 mg PO Q8H Qty: 20 0RF oseltamivir [Tamiflu] 75 mg capsule 75 mg PO BID 5 Days Qty: 10 0RF azithromycin [azithromycin] 250 mg tablet 250 mg PO DIRECTED Qty: 6 0RF Rx Instructions: Take two (2) tablets on day #1, then one (1) tablet day #2 thru #5 benzonatate 100 mg Capsule 100 mg PO Q8H Qty: 20 0RF prednisone [prednisone] 20 mg tablet 20 mg PO BID Qty: 10 0RF hydrocodone-guaifenesin 2.5-200 mg/5 mL solution 10 ml PO Q6H PRN (Reason: cough) Qty: 118 0RF hydrocodone-homatropine [Hycodan (with homatropine)] 5-1.5 mg/5 mL syrup 5 ml PO Q6H PRN (Reason: cough) Qty: 120 0RF tizanidine 4 MG tablet 4 mg PO TIDP PRN (Reason: Muscle Spasm) losartan 50 MG tablet 50 mg PO DAILY prednisone 20 MG tablet 20 mg PO BID Qty: 10 0RF erythromycin 5 mg/gram (0.5 %) ointment 1 applic ophthalmic (eye) TID 7 Days Qty: 3.5 0RF nitrofurantoin monohyd/m-cryst [Macrobid] 100 mg capsule 100 mg PO Q12H 5 Days Qty: 10 0RF Rx Instructions: must administer with a meal/food prednisone [prednisone] 20 mg tablet 20 mg PO BID Qty: 10 0RF Referrals Follow up/Referrals: Provider,Referral, MD [Primary Care Provider] - See instructions Activity Restrictions/Add. Instructions Additional Instructions/Restrictions: Please return to the emergency department if you experience any new or worsening symptoms. Clinical Impressions Clinical Impression: Urolithiasis Qualifiers: Urinary calculus location: lower urinary tract Qualified Code(s): N21.9 - Calculus of lower urinary tract, unspecified Discharge ED Provider: Naldo Jackson Adult HPI General Chief complaint: PAIN Stated complaint: left side pain Time Seen by Provider: 05/03/23 16:24 Mode of Arrival: Ambulatory Source of Information: Patient Limitations: No Limitations Description of Symptoms (Recalled from ER Triage Doc. by RN): pt presents to ED c/o left sided flank pain that started this am. pt reports hx of kidney stones. pt denies burning with urination. pt reports blood noted to urine. pt reports taking Tylenol for pain. History of Present Illness HPI narrative: Patient presents for evaluation of left-sided flank pain, gradual in onset, starting today, constant, stable in course, no provoking or alleviating factors. No fevers or chills or nausea or vomiting. Patient has been able to tolerate p.o. intake. Has had similar symptoms before in the setting of cholelithiasis. No blood in stools, able to pass flatus, no chest pain or palpitations. No pain elsewhere. Denies any dysuria or frequency. Related Data Home Medications Medication Instructions Recorded Confirmed paroxetine HCl 40 mg tablet 60 mg PO DAILY MOOD 10/21/17 02/20/22 tizanidine 4 mg tablet 4 mg PO TIDP PRN Muscle Spasm 03/15/18 02/20/22 losartan 50 mg tablet 50 mg PO DAILY Hypertension 02/03/21 02/20/22 pregabalin 150 mg capsule 150 mg PO BID Pain 02/05/22 02/20/22 cefdinir 300 mg cap
[2023-05-03 16:34] LABS: Bacteria,Urine Trace /lpf; Calcium Oxalate Crystals,Urine 1+ /lpf; RBC,Urine Occasional #/hpf (0-3)
--- NOTE | 2023-05-03 16:36 | CT_ITS ---
PROCEDURE INFORMATION: Exam: CT Abdomen And Pelvis Without Contrast Exam date and time: 05/03/2023 4:46 PM Age: 37 years old Clinical indication: Abdominal pain; Flank; Left; Additional info: L flank pain, HX urolithiasis TECHNIQUE: Imaging protocol: Computed tomography of the abdomen and pelvis without contrast. Radiation optimization: All CT scans at this facility use at least one of these dose optimization techniques: automated exposure control; mA and/or kV adjustment per patient size (includes targeted exams where dose is matched to clinical indication); or iterative reconstruction. REPORTING DATA: Count of CT and Cardiac NM exams in prior 12 months: This patient has received [address] and 0 known cardiac nuclear medicine studies in the 12 months prior to the current study. COMPARISON: CT ABDOMEN PELVIS WO CON 08/16/2022 6:32 AM FINDINGS: Limitations: The absence of intravenous contrast limits the assessment of vascular structures, lesions and lymphadenopathy. Lungs: Lower lobes normal Liver: No focal hepatic lesions within the limits of noncontrast examination. Gallbladder and bile ducts: There has been a cholecystectomy. Pancreas: No peripancreatic fluid stranding. No main pancreatic ductal dilation. Spleen: No splenomegaly. Adrenal glands: The adrenal glands are normal. Kidneys and ureters: Nonobstructive left nephrolithiasis noted. No hydroureteronephrosis on either side. Stomach and bowel: No bowel wall thickening or distention. Scattered colonic diverticula without acute inflammatory change. Appendix: There has been an appendectomy. Intraperitoneal space: There is no evidence of free intraperitoneal or pelvic fluid. Vasculature: Aorta is nonaneurysmal. Lymph nodes: Unremarkable. No enlarged lymph nodes. Urinary bladder: Urinary bladder is unremarkable. Reproductive: Unremarkable as visualized. Bones/joints: No acute osseous abnormality. Soft tissues: Unremarkable. IMPRESSION: Nonobstructive left nephrolithiasis noted. No hydroureteronephrosis on either side.
[2023-05-03 16:39] VITALS: BP 156/108; PULSE 83; RESP 18; O2SAT 94
[2023-05-03 17:07] LABS: Basophils % 0.3 % (0.1-2.0); Eosinophils # 0.3 K/mm3 (0.0-0.4); Eosinophils % 2.4 % (0.1-12.0); Hematocrit 49.8 % (37.0-47.0); Hemoglobin 16.7 g/dL (12.2-16.2); Lymphocytes # 2.1 K/mm3 (0.7-4.5); Lymphocytes % 18.2 % (10-50); Mean Corpuscular HGB Conc 33.5 g/dL (31.8-35.4); Mean Corpuscular Volume 86.7 fl (81-99); Mean Platelet Volume 7.6 fl (7.4-10.4); Monocytes # 0.5 K/mm3 (0.1-1.0); Monocytes % 4.2 % (1.7-9.3); Neutrophils # 8.8 K/mm3 (1.8-7.8); Neutrophils % 74.9 % (37.0-80.0); Platelet Count 390 K/mm3 (142-424); Red Blood Count 5.75 M/mm3 (4.20-5.40); Red Cell Distribution Width 14.1 % (11.5-17.5); White Blood Count 11.7 K/mm3 (4.8-10.8)
[2023-05-03 17:17] LABS: Alanine Aminotransferase 28 U/L (12-78); Albumin Level 4.4 g/dl (3.5-5.0); Alkaline Phosphatase 105 U/L (38-126); Anion Gap 12.1 mEq/L (5-15); Aspartate Amino Transferase 30 U/L (14-36); Bilirubin,Total 0.4 mg/dl (0.2-1.3); Blood Urea Nitrogen 12 mg/dl (7-17); Calcium 9.4 mg/dl (8.4-10.2); Carbon Dioxide 29 mmol/L (22.0-30.0); Chloride 106 mmol/L (98-107); Creatinine Clearance Estimated 68 mL/min (50-200); Estimated Glomerular Filt Rate 70 ml/min (>60); GFR (African American) 85 ML/MIN (>60); Globulin 4.3 g/dL (1.3-3.2); Glucose 94 mg/dl (74-100); Potassium 4.1 mmoL/L (3.5-5.1); Sodium 143 mmol/L (136-145); Total Protein,Serum 8.7 g/dl (6.3-8.2)
--- NOTE | 2023-05-03 17:27 | XR_ITS ---
PROCEDURE INFORMATION: Exam: XR Chest Exam date and time: 05/03/2023 5:34 PM Age: 37 years old Clinical indication: Device placement; Other: Port placement; Additional info: Eval port placement TECHNIQUE: Imaging protocol: Radiologic exam of the chest. Views: 1 view. COMPARISON: CR XR CHEST 2V 08/23/2022 9:30 PM FINDINGS: Tubes, catheters and devices: There is a right tunneled catheter with its tip in the cavoatrial junction. Lungs: No evidence of pneumonia or interstitial edema. Pleural spaces: Unremarkable. No pleural effusion. No pneumothorax. Heart/Mediastinum: Unremarkable. No cardiomegaly. Bones/joints: Unremarkable. IMPRESSION: 1. There is a right tunneled catheter with its tip in the cavoatrial junction. 2. No evidence of pneumonia or interstitial edema.
[2023-05-03 19:33] VITALS: BP 158/98; PULSE 80; RESP 18; TEMP 36.7; O2SAT 97
== END 2023-05-03 19:34 | disposition home or self-care (01) ==
PROVIDERS: Emergency Provider Emergency Medicine
DX: N21.9 Calculus of lower urinary tract, unspecified (principal); R10.9 Unspecified abdominal pain; F17.290 Nicotine dependence, other tobacco product, uncomplicated
CPT/HCPCS: 71045; 74176; 80053; 81001; 85025; 87086; 96374; 99285

== ENCOUNTER 2023-06-22 20:27 | Emergency (ER) | payer OTHER, SELFPAY ==
[2023-06-22 20:28] VITALS: BP 176/110; PULSE 105; RESP 16; TEMP 36.9; O2SAT 97; BMI 43.9
[2023-06-22 20:38] LABS: Microscopic, Urine URINE MICROSCOPIC (MICROSCOPIC)
--- NOTE | 2023-06-22 20:51 | CT_ITS ---
PROCEDURE INFORMATION: Exam: CT Abdomen And Pelvis Without Contrast Exam date and time: 06/22/2023 9:21 PM Age: 37 years old Clinical indication: Abdominal pain; Flank; Left; Prior surgery; Surgery date: 6+ months; Surgery type: Hysterectomy; Additional info: L flank pain TECHNIQUE: Imaging protocol: Computed tomography of the abdomen and pelvis without contrast. Radiation optimization: All CT scans at this facility use at least one of these dose optimization techniques: automated exposure control; mA and/or kV adjustment per patient size (includes targeted exams where dose is matched to clinical indication); or iterative reconstruction. REPORTING DATA: Count of CT and Cardiac NM exams in prior 12 months: This patient has received 2 known CTs and 0 known cardiac nuclear medicine studies in the 12 months prior to the current study. COMPARISON: CT ABDOMEN PELVIS WO CON 05/03/2023 4:46 PM FINDINGS: Limitations: No intravenous contrast was administered which limits evaluation of the solid organs, bowel, and vasculature. Lungs: Included lung bases demonstrate mild subpleural ground-glass opacity and tree-in-bud nodularity in both lower lobes. Liver: Liver is normal. No lesions by noncontrast imaging. Gallbladder and bile ducts: Status post cholecystectomy. Pancreas: Pancreas is unremarkable. No ductal dilatation. Spleen: Spleen is normal. Small splenule. Adrenal glands: Adrenal glands are normal. No mass. Kidneys and ureters: Nonobstructing 5 mm stone in the lower pole left kidney. Few additional very punctate non-obstructing stones in both kidneys. No hydronephrosis or hydroureter. Stomach and bowel: No evidence of bowel obstruction or acute bowel abnormality. Mild colonic diverticulosis without evidence of diverticulitis. Appendix: No evidence of appendicitis. Intraperitoneal space: No free air. No significant fluid collection. Vasculature: No acute abnormality. No abdominal aortic aneurysm. Lymph nodes: No enlarged lymph nodes. Borderline enlarged left inguinal lymph nodes similar to prior, likely reactive. Urinary bladder: Urinary bladder is unremarkable for degree of distention. Reproductive: Status post hysterectomy. No adnexal mass. Bones/joints: No acute or suspicious osseous lesions. Soft tissues: Stable small fat containing umbilical hernia. IMPRESSION: 1. Nonobstructive bilateral nephrolithiasis. No hydronephrosis or hydroureter. 2. No evidence of acute bowel abnormality. Mild colonic diverticulosis. 3. Mild subpleural ground-glass opacity and tree-in-bud nodularity in both lower lobes compatible with infectious/inflammatory process. 4. Other chronic and incidental findings as detailed above.
[2023-06-22 21:05] LABS: Appearance,Urine SL CLOUDY (Clear); Bilirubin,Urine Negative (Negative); Blood, Urine 1+ (Negative); Color,Urine YELLOW (Yellow); Glucose,Urine (UA) Negative (Negative); Ketones,Urine Negative (Negative); Leukocyte Esterase,Urine 1+ (Negative); Nitrate,Urine POSITIVE (Negative); Protein,Urine 1+ (Negative); Specific Gravity, Urine >= 1.030 (1.005-1.030); Urobilinogen,Urine 0.2 EU/dl (0.2)
[2023-06-22 21:43] LABS: Urine Pregnancy, HCG Qual. Positive (Negative)
[2023-06-22 21:45] LABS: Bacteria,Urine 2+ /lpf; RBC,Urine Occasional #/hpf (0-3)
[2023-06-22 22:08] LABS: Anion Gap 13.3 mEq/L (5-15); Blood Urea Nitrogen 16 mg/dl (7-17); Calcium 8.6 mg/dl (8.4-10.2); Carbon Dioxide 24 mmol/L (22.0-30.0); Chloride 108 mmol/L (98-107); Creatinine Clearance Estimated 68 mL/min (50-200); Estimated Glomerular Filt Rate 70 ml/min (>60); GFR (African American) 85 ML/MIN (>60); Glucose 115 mg/dl (74-100); Potassium 3.3 mmoL/L (3.5-5.1); Sodium 142 mmol/L (136-145)
--- NOTE | 2023-06-22 22:14 | PC.NURSE ---
rounded on patient no new complaints noted
[2023-06-22 22:15] LABS: Basophils # 0.1 K/mm3 (0-0.2); Basophils % 0.5 % (0.1-2.0); Eosinophils # 0.3 K/mm3 (0.0-0.4); Eosinophils % 2.5 % (0.1-12.0); Lymphocytes % 15.1 % (10-50); Mean Corpuscular Hemoglobin 29.9 pg (27.0-31.2); Mean Platelet Volume 8.2 fl (7.4-10.4); Monocytes # 0.6 K/mm3 (0.1-1.0); Monocytes % 4.6 % (1.7-9.3); Neutrophils % 77.3 % (37.0-80.0); Platelet Count 364 K/mm3 (142-424); Red Cell Distribution Width 13.9 % (11.5-17.5)
[2023-06-22 22:26] LABS: HCG,Quantitative 6 mIU/ml (0-5.42)
--- NOTE | 2023-06-22 22:47 | [facility].EDGENADL ---
Discharge Plan Disposition Patient Disposition: Home, Self-Care Condition: Good Prescriptions Prescriptions: New levofloxacin 750 mg tablet 750 mg PO DAILY 10 Days Qty: 10 0RF promethazine 25 mg tablet 25 mg PO Q6H PRN (Reason: sedation) Qty: 12 0RF No Action paroxetine HCl 40 mg tablet 60 mg PO DAILY cefdinir 300 MG capsule 300 mg PO BID pregabalin 150 MG capsule 150 mg PO BID nystatin 15 GM ointment 15 gm TP TIDP PRN (Reason: Apply to rash till clear) Qty: 80 0RF promethazine 25 MG tablet 25 mg PO Q6H PRN (Reason: Nausea And Vomiting) Qty: 25 0RF famotidine 20 MG tablet 20 mg PO BID 5 Days Qty: 10 0RF hydrocodone-acetaminophen 1 TAB tablet 1 tab PO Q6HP PRN (Reason: Pain) Qty: 6 0RF ciprofloxacin HCl 500 MG tablet 500 mg PO BID Qty: 20 0RF potassium chloride 20 MEQ tablet extended release 20 meq PO DAILY Qty: 7 0RF nirmatrelvir-ritonavir 1 EACH tablet 1 each PO BID Qty: 1 0RF Rx Instructions: Take bid for 5 days benzonatate 100 mg Capsule 100 mg PO Q8H Qty: 20 0RF oseltamivir [Tamiflu] 75 mg capsule 75 mg PO BID 5 Days Qty: 10 0RF azithromycin [azithromycin] 250 mg tablet 250 mg PO DIRECTED Qty: 6 0RF Rx Instructions: Take two (2) tablets on day #1, then one (1) tablet day #2 thru #5 benzonatate 100 mg Capsule 100 mg PO Q8H Qty: 20 0RF prednisone [prednisone] 20 mg tablet 20 mg PO BID Qty: 10 0RF hydrocodone-guaifenesin 2.5-200 mg/5 mL solution 10 ml PO Q6H PRN (Reason: cough) Qty: 118 0RF hydrocodone-homatropine [Hycodan (with homatropine)] 5-1.5 mg/5 mL syrup 5 ml PO Q6H PRN (Reason: cough) Qty: 120 0RF tamsulosin [Flomax] 0.4 mg capsule 0.4 mg PO DAILY Qty: 14 0RF tizanidine 4 MG tablet 4 mg PO TIDP PRN (Reason: Muscle Spasm) losartan 50 MG tablet 50 mg PO DAILY prednisone 20 MG tablet 20 mg PO BID Qty: 10 0RF erythromycin 5 mg/gram (0.5 %) ointment 1 applic ophthalmic (eye) TID 7 Days Qty: 3.5 0RF nitrofurantoin monohyd/m-cryst [Macrobid] 100 mg capsule 100 mg PO Q12H 5 Days Qty: 10 0RF Rx Instructions: must administer with a meal/food prednisone [prednisone] 20 mg tablet 20 mg PO BID Qty: 10 0RF Referrals Follow up/Referrals: Provider,Referral, MD [Primary Care Provider] - See instructions Activity Restrictions/Add. Instructions Additional Instructions/Restrictions: You were evaluated in the emergency department today. I recommend close follow-up with your primary care provider as well as gynecology. site supervisor your prescription for antibiotics and take the full course as prescribed. I also sent in Phenergan for you to have as needed for nausea and vomiting. Return to the emergency department for any new or worsening symptoms, such as persistent fevers, significant worsening pain, or inability to tolerate oral intake. Clinical Impressions Clinical Impression: Pyelonephritis, Hypokalemia, Elevated serum hCG in female, not Instructions Patient Instructions: DI for Kidney Infection, DI for Hypokalemia Discharge ED Provider: Xuan Martínez General Adult HPI General Chief complaint: Back Pain/Injury Stated complaint: back pain abd pain Time Seen by Provider: 06/22/23 20:54 Mode of Arrival: Ambulatory Source of Information: Patient Limitations: No Limitations Description of Symptoms (Recalled from ER Triage Doc. by RN): pt c/o lower back pain on left side that radiates to front, frequent scant urinations, reports hx of kidney stones History of Present Illness HPI narrative: This patient is a 37-year-old female with a history of obesity, recurrent kidney stones, recurrent urinary tract infections, chronic hypokalemia,and hypertension presenting to the emergency department for evaluation with concern for left flank pain that started yesterday. She states that she felt like it was another kidney stone, so she went home an
[2023-06-22 23:05] VITALS: BP 186/110; PULSE 88; RESP 16; TEMP 36.8; O2SAT 99
== END 2023-06-22 23:06 | disposition home or self-care (01) ==
PROVIDERS: Emergency Provider Emergency Medicine
DX: N10 Acute pyelonephritis (principal); B96.89 Other specified bacterial agents as the cause of diseases classified elsewhere; E87.6 Hypokalemia; R79.89 Other specified abnormal findings of blood chemistry; R11.0 Nausea; I10 Essential (primary) hypertension; E66.9 Obesity, unspecified; Z87.440 Personal history of urinary (tract) infections; Z87.442 Personal history of urinary calculi
CPT/HCPCS: 74176; 80048; 81001; 81025; 84702; 85025; 87086; 96361; 96374; 96375; 99284; J0131

== ENCOUNTER 2023-07-13 05:29 | Emergency (ER) | payer OTHER, SELFPAY ==
--- NOTE | 2023-07-13 05:36 | XR_ITS ---
PROCEDURE INFORMATION: Exam: XR Left Hand Exam date and time: 07/13/2023 5:59 AM Age: 37 years old Clinical indication: Injury or trauma; Other: Puncture; Hand; Left; Additional info: Left hand injury, nail to mid palm TECHNIQUE: Imaging protocol: Radiologic exam of the left hand. Views: 3 or more views. COMPARISON: No relevant prior studies available. FINDINGS: Bones/joints: No acute fracture, dislocation or osseous destructive process. Soft tissues: No radiopaque foreign body. IMPRESSION: No acute osseous findings or radiopaque foreign body.
[2023-07-13 05:40] VITALS: BP 187/114; PULSE 94; RESP 18; TEMP 37.1; O2SAT 97; BMI 43.9
--- NOTE | 2023-07-13 05:43 | [facility].EDGENADL ---
Discharge Plan Disposition Patient Disposition: Home, Self-Care Prescriptions Prescriptions: New ciprofloxacin HCl 750 mg tablet 750 mg PO Q12H 5 Days Qty: 10 0RF No Action paroxetine HCl 40 mg tablet 60 mg PO DAILY cefdinir 300 MG capsule 300 mg PO BID pregabalin 150 MG capsule 150 mg PO BID nystatin 15 GM ointment 15 gm TP TIDP PRN (Reason: Apply to rash till clear) Qty: 80 0RF promethazine 25 MG tablet 25 mg PO Q6H PRN (Reason: Nausea And Vomiting) Qty: 25 0RF famotidine 20 MG tablet 20 mg PO BID 5 Days Qty: 10 0RF hydrocodone-acetaminophen 1 TAB tablet 1 tab PO Q6HP PRN (Reason: Pain) Qty: 6 0RF ciprofloxacin HCl 500 MG tablet 500 mg PO BID Qty: 20 0RF potassium chloride 20 MEQ tablet extended release 20 meq PO DAILY Qty: 7 0RF nirmatrelvir-ritonavir 1 EACH tablet 1 each PO BID Qty: 1 0RF Rx Instructions: Take bid for 5 days benzonatate 100 mg Capsule 100 mg PO Q8H Qty: 20 0RF oseltamivir [Tamiflu] 75 mg capsule 75 mg PO BID 5 Days Qty: 10 0RF azithromycin [azithromycin] 250 mg tablet 250 mg PO DIRECTED Qty: 6 0RF Rx Instructions: Take two (2) tablets on day #1, then one (1) tablet day #2 thru #5 benzonatate 100 mg Capsule 100 mg PO Q8H Qty: 20 0RF prednisone [prednisone] 20 mg tablet 20 mg PO BID Qty: 10 0RF hydrocodone-guaifenesin 2.5-200 mg/5 mL solution 10 ml PO Q6H PRN (Reason: cough) Qty: 118 0RF hydrocodone-homatropine [Hycodan (with homatropine)] 5-1.5 mg/5 mL syrup 5 ml PO Q6H PRN (Reason: cough) Qty: 120 0RF tamsulosin [Flomax] 0.4 mg capsule 0.4 mg PO DAILY Qty: 14 0RF tizanidine 4 MG tablet 4 mg PO TIDP PRN (Reason: Muscle Spasm) losartan 50 MG tablet 50 mg PO DAILY prednisone 20 MG tablet 20 mg PO BID Qty: 10 0RF erythromycin 5 mg/gram (0.5 %) ointment 1 applic ophthalmic (eye) TID 7 Days Qty: 3.5 0RF nitrofurantoin monohyd/m-cryst [Macrobid] 100 mg capsule 100 mg PO Q12H 5 Days Qty: 10 0RF Rx Instructions: must administer with a meal/food prednisone [prednisone] 20 mg tablet 20 mg PO BID Qty: 10 0RF levofloxacin 750 mg tablet 750 mg PO DAILY 10 Days Qty: 10 0RF promethazine 25 mg tablet 25 mg PO Q6H PRN (Reason: sedation) Qty: 12 0RF Activity Restrictions/Add. Instructions Additional Instructions/Restrictions: Take antibiotic twice daily for full 5-day course. Call your family doctor to establish care for this visit to the emergency department and schedule follow-up within 48 hours to ensure improvement. If you have any worsening of your condition or any other concerning signs or symptoms, return to the emergency department or your primary care doctor for further evaluation. Clinical Impressions Clinical Impression: Puncture wound of hand, left Qualifiers: Encounter type: initial encounter Foreign body presence: without foreign body Qualified Code(s): S61.432A - Puncture wound without foreign body of left hand, initial encounter Discharge ED Provider: Phoenix Hightower General Adult HPI General Chief complaint: Extremity Injury, Upper Stated complaint: AO 07/13/23 0510 nail wound palm left hand Time Seen by Provider: 07/13/23 05:31 History of Present Illness HPI narrative: 37-year-old female presenting with puncture wound to left hand. Patient states she does remember the last time she got a tetanus shot. Just before arrival, flashlight turned off. Patient states that she swung her hand toward the flashlight in order to tap it to try to turn it back on and she did not realize there was a nail sticking out the bottom of the flashlight where a magnet is. Nail pierced directly in the middle of her palm. Does not think there were any pieces of the nail missing when she removed her hand. We will flex scope and extend. Having mild to moderate pain. Related Data Home Medications Medication Instructions Recorded
[2023-07-13 06:24] VITALS: BP 171/98; PULSE 84; RESP 16; TEMP 37.1; O2SAT 97
== END 2023-07-13 06:25 | disposition home or self-care (01) ==
PROVIDERS: Emergency Provider Emergency Medicine
DX: S61.432A Puncture wound without foreign body of left hand, initial encounter (principal); I10 Essential (primary) hypertension; F17.290 Nicotine dependence, other tobacco product, uncomplicated; Z23 Encounter for immunization; W45.0XXA Nail entering through skin, initial encounter
CPT/HCPCS: 73130; 90715; 96372; 99283

== ENCOUNTER 2023-09-02 02:52 | Inpatient (IN) | payer OTHER, SELFPAY ==
[2023-09-02] VITALS (10 sets, daily range): BP systolic 143–185; BP diastolic 66–115; PULSE 87–97; RESP 16–21; TEMP 36.5–36.9; O2SAT 93–99; BMI 44.8; BMI 44.9
--- NOTE | 2023-09-02 03:11 | CT_ITS ---
PROCEDURE INFORMATION: Exam: CTA Chest With Contrast Exam date and time: 09/02/2023 4:09 AM Age: 37 years old Clinical indication: Pain; Shortness of breath; Right-sided; Additional info: Acute right chest pain, SOB TECHNIQUE: Imaging protocol: Computed tomographic angiography of the chest with contrast. Exam focused on the arteries. 3D rendering (Not supervised by radiologist): MIP and/or 3D reconstructed images were created by the technologist. Radiation optimization: All CT scans at this facility use at least one of these dose optimization techniques: automated exposure control; mA and/or kV adjustment per patient size (includes targeted exams where dose is matched to clinical indication); or iterative reconstruction. Contrast material: ISOVUE; Contrast volume: 75 ml; Contrast route: INTRAVENOUS (IV); REPORTING DATA: Count of CT and Cardiac NM exams in prior 12 months: This patient has received 2 known CTs and 0 known cardiac nuclear medicine studies in the 12 months prior to the current study. COMPARISON: [facility] CT angio chest 05/20/2018 4:49 PM FINDINGS: Tubes, catheters and devices: There is a right-sided port in appropriate position. Pulmonary arteries: Normal. No pulmonary emboli. 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 Aorta: Unremarkable. No aortic aneurysm. No aortic dissection. Lungs: Mild diffuse ground-glass density throughout the bilateral lung narvaez. There is no dense consolidation. Pleural spaces: Unremarkable. No pneumothorax. No pleural effusion. Heart: Unremarkable. No cardiomegaly. No pericardial effusion. Lymph nodes: Unremarkable. No enlarged lymph nodes. Bones/joints: Unremarkable. No acute fracture. Soft tissues: Unremarkable. IMPRESSION: 1. No pulmonary embolism or aortic dissection. 2. Mild diffuse ground-glass density throughout the bilateral lung narvaez. There is no dense consolidation. This is likely corporate representative of a hypersensitivity reaction versus atypical pneumonia.
--- NOTE | 2023-09-02 03:11 | CT_ITS ---
PROCEDURE INFORMATION: Exam: CT Abdomen And Pelvis With Contrast Exam date and time: 09/02/2023 4:09 AM Age: 37 years old Clinical indication: Abdominal pain; Additional info: Right flank pain, HX infections and stones TECHNIQUE: Imaging protocol: Computed tomography of the abdomen and pelvis with contrast. Radiation optimization: All CT scans at this facility use at least one of these dose optimization techniques: automated exposure control; mA and/or kV adjustment per patient size (includes targeted exams where dose is matched to clinical indication); or iterative reconstruction. Contrast material: ISOVUE; Contrast volume: 75 ml; Contrast route: IV; REPORTING DATA: Count of CT and Cardiac NM exams in prior 12 months: This patient has received 2 known CTs and 0 known cardiac nuclear medicine studies in the 12 months prior to the current study. COMPARISON: CT ABDOMEN PELVIS WO CON 06/22/2023 9:21 PM FINDINGS: Liver: 1.6 cm structure within the right lobe of the liver that demonstrates Hounsfield units of 43. Gallbladder and bile ducts: There are postsurgical changes from a cholecystectomy. Pancreas: Normal. No ductal dilation. Spleen: Normal. No splenomegaly. Adrenal glands: Normal. No mass. Kidneys and ureters: Normal. No hydronephrosis. Stomach and bowel: There is diverticulosis present. There is thickening of the wall the distal transverse colon. There is surrounding fat stranding. There is no evidence of perforation. There is no free fluid or free air. The remainder of the bowel is unremarkable. Appendix: No evidence of appendicitis. Intraperitoneal space: See Stomach and bowel finding. Vasculature: Unremarkable. No abdominal aortic aneurysm. Lymph nodes: Unremarkable. No enlarged lymph nodes. Urinary bladder: Unremarkable as visualized. Reproductive: Unremarkable as visualized. Bones/joints: Unremarkable. No acute fracture. Soft tissues: Unremarkable. IMPRESSION: 1. Moderate diverticulitis of the distal transverse colon. There is no perforation or abscess. 2. 1.6 cm structure within the right lobe of the liver that demonstrates Hounsfield units of 43. This is not c s s representative of a cyst and is not seen on previous exams. This is highly concerning for malignancy versus other liver lesion. 3. There is no other acute inflammatory process. There is no bowel obstruction.
--- NOTE | 2023-09-02 03:14 | HMH.EDGENADL ---
Discharge Plan Disposition Patient Disposition: Home, Self-Care Chief Complaint: Urogenital-Female Clinical Impressions Clinical Impression: Diverticulitis, Pyelonephritis, Lesion of liver greater than 1 cm in diameter Chest pain Qualifiers: Chest pain type: unspecified Qualified Code(s): R07.9 - Chest pain, unspecified Discharge ED Provider: Pramod Javed Adult HPI General Chief complaint: Urogenital-Female Stated complaint: pain at port site, back pain Time Seen by Provider: 09/02/23 03:00 Mode of Arrival: Ambulatory Source of Information: Patient Limitations: No Limitations Description of Symptoms (Recalled from ER Triage Doc. by RN): pt reports while she was at work she had a sharp pain under her port on her right chest wall, reports its tender to touch now, pt also reports difficulty urinating, states she had UTI 1 week ago. History of Present Illness HPI narrative: 37-year-old female, history of innumerable kidney stones, kidney infections, bacteremias for which she had a port placed, recent UTI with completion of course of cefdinir, presents with multiple complaints. She was working at [employer] and she had sudden onset of severe right upper chest pain. Denies any cardiac history. She reports the pain is in the area of her port. The port has not been used for at least a year. Patient also reports right flank pain that she thinks is either kidney infection or kidney stone that has been worsening. She reports that her urinary symptoms never fully resolved after recent antibiotic course. Related Data Home Medications Medication Instructions Recorded Confirmed hydrochlorothiazide 25 mg tablet 25 mg PO DAILY 09/02/23 09/02/23 hydroxyzine HCl 25 mg tablet 25 mg PO TID 09/02/23 09/02/23 paroxetine HCl 40 mg tablet 40 mg PO DAILY 09/02/23 09/02/23 Allergies Allergy/AdvReac Type Severity Reaction Status Date / Time Penicillins Allergy Severe Hives Verified 06/22/23 20:51 gatifloxacin [From TEQUIN] Allergy Mild Verified 06/22/23 20:51 ketorolac [From TORADOL] Allergy Mild Verified 06/22/23 20:51 aztreonam [AZTREONAM] Allergy Unknown NA-NAUSEA/V Verified 06/22/23 20:51 OMITING cefaclor [CEFACLOR] Allergy Unknown Verified 06/22/23 20:51 codeine [CODEINE] Allergy Unknown BLEEDING Verified 06/22/23 20:51 OF EYES AND NOSE doxycycline [DOXYCYCLINE] Allergy Unknown Verified 06/22/23 20:51 midazolam [From VERSED] Allergy Unknown Verified 06/22/23 20:51 ondansetron Allergy Unknown Verified 06/22/23 20:51 [From ZOFRAN ( HYDROCHLORIDE)] sulfamethoxazole Allergy Unknown Verified 06/22/23 20:51 [From BACTRIM] trimethoprim [From BACTRIM] Allergy Unknown Verified 06/22/23 20:51 ibuprofen Allergy Verified 06/22/23 20:51 tramadol Allergy Verified 06/22/23 20:51 PFSH PFSH Disclaimer: The information contained in this section may have been updated after the patient was seen, as this information can be updated by other users. 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 current occupational exposures/hazards: No caffeine: No ROS Obtained: Yes All systems reviewed & no additional complaints except as documented Physical Exam General General appearance: alert, in no apparent distress and obese Head Head exam: atraumatic and normocephalic Eye Eye exam: Present normal appearance, PERRL and EOMI ENT ENT exam: Present normal oropharynx and normal external ear exam Neck Neck exam: Present normal inspection and full ROM Chest Chest inspection: Present normal inspection, symmetric chest wall rise and tenderness (Tenderness in the area of the right upper chest where her port is located. No overlying skin changes.) Respiratory Respiratory exam: Present normal lung sounds bilaterally; Absent respiratory distress Cardiovascular Cardiovascular exam: Present regular rate and normal rhythm Abdominal Exam Abdominal exam: Present soft and tenderness (Right lower quadrant/flank); Absent distention or guarding Extremities Exam Extremities exam: Present normal inspection; Absent edema or joint swelling Back Exam Back exam: Present normal inspection and CVA tenderness (R); Absent tenderness Neurological Exam Neurological exam: Present alert and oriented X3; Absent motor sensory deficit Psychiatric Psychiatric exam: Present normal affect and normal mood Skin Skin exam: Present warm, dry and normal color Lymphatic Lymphatic Findings: no adenopathy Medical Decision Making Medical Records Medical records reviewed: Yes I reviewed the patient's medical records. Olu Inquiry Pt receiving controlled substance: No Olu was queried for this patient: No Vital Signs: 09/02/23 02:53 Temperature 98.2 F Temperature Source Oral Pulse Rate [Right] 97 H Respiratory Rate 18 Blood Pressure [Right Arm] 185/115 H Blood Pressure Mean [Right Arm] 138 Blood Pressure Source [Right Arm] Automatic Cuff Blood Pressure Position [Right Arm] Sitting 02 Sat by Pulse Oximetry 98 Oxygen Delivery Method Room Air Lab Data Lab results reviewed: Yes I reviewed the patient's lab results. Lab Results 09/02/23 03:05: Urine Color Yellow, Urine Appearance Clear, Urine pH 6.0, Ur Specific [place] 1.025, Urine Protein Negative, Urine Glucose (UA) Negative, Urine Ketones Negative, Urine Blood 1+, Urine Nitrate Positive, Urine Bilirubin Negative, Urine Urobilinogen 0.2, Ur Leukocyte Esterase 1+ A, Urine RBC 5-10, Urine WBC 5-10, Ur Squamous Epith Cells 5-10, Urine Bacteria 2+, Urine Mucus 1+ 09/02/23 03:33: WBC 12.9 H, RBC 4.87, Hgb 14.7, Hct 43.0, MCV 88.2, MCH 30.1, MCHC 34.2, RDW 14.1, Plt Count 400, MPV 8.0, Neut % (Auto) 74.3, Lymph % (Auto) 16.4, [place] % (Auto) 5.2, Eos % (Auto) 3.3, Baso % (Auto) 0.8, Neut # (Auto) 9.6 H, Lymph # (Auto) 2.1, [place] # (Auto) 0.7, Eos # (Auto) 0.4, Baso # (Auto) 0.1, Sodium 140, Potassium 3.7, Chloride 104, Carbon Dioxide 29, Anion Gap 10.7, BUN 20 H, Creatinine 0.90, Estimated Creat Clear 68, Estimated GFR 70, Est GFR ( Amer) 85, Glucose 108 H, Calcium 8.6, Total Bilirubin 0.5, AST 36, ALT 31, Alkaline Phosphatase 97, Troponin I < 0.01, Total Protein 8.4 H, Albumin 4.4, Globulin 4.0 H, Albumin/Globulin Ratio 1.1, Serum HCG, Qual Negative 09/02/23 03:35: SARS-CoV-2 (PCR) Not detected, Influenza A Untype (PCR) Not detected, Influenza Type B (PCR) Not detected 09/02/23 03:33 09/02/23 03:33 Orders (Tests/Meds): ED MEDICATIONS Discontinued Medications Generic Name Dose Route Start Last Admin Trade Name Silke PRN Reason Stop Dose Admin Acetaminophen 1,000 mg 09/02/23 03:09 09/02/23 03:20 Acetaminophen 500mg Tab PO 09/02/23 03:10 1,000 mg ONCE ONE Administration Ceftriaxone Sodium 1 gm/ 50 mls @ 100 mls/hr 09/02/23 03:30 09/02/23 04:18 Sodium Chloride IV 09/02/23 03:59 100 mls/hr ONCE ONE Administration Sodium Chloride 1,000 mls @ 999 mls/hr 09/02/23 03:45 09/02/23 03:40 Sod Chlor 0.9% 1000ml Bag IV 09/02/23 04:45 999 mls/hr .Q1H1M JUANA Administration Iopamidol 75 ml 09/02/23 04:20 09/02/23 04:22 Iopamidol-370 (76%);100ml Bottle IV 09/02/23 04:21 75 ml ONCE ONE Administration Methocarbamol 500 mg 09/02/23 03:09 09/02/23 03:20 Methocarbamol 500mg Tablet PO 09/02/23 03:10 500 mg ONCE ONE Administration Sodium Chloride 10 ml 09/02/23 04:20 09/02/23 04:22 Sodium Chloride 0.9% 10ml Syr (Rad Only) IV 09/02/23 04:21 10 ml ONCE ONE Administration Sodium Chloride 50 ml 09/02/23 04:20 09/02/23 04:22 0.9 % Sodium Chloride 50 Ml Vial IV 09/02/23 04:21 50 ml ONCE ONE Administration ORDERS Category Date Time Status CT abdomen pelvis w con Stat Cat Scan 09/02/23 03:[address] angio chest PE protocol Stat Cat Scan 09/02/23 03:11 Completed CBC w/Auto Diff [Complete Blood Count Auto Diff] Stat Lab 09/02/23 03:33 Completed CMP [Comprehensive Metabolic Panel] Stat Lab 09/02/23 03:33 Completed HCG Qualitative, Serum Stat Lab 09/02/23 03:33 Completed Rapid PCR Covid and Flu A/B Stat Lab 09/02/23 03:35 Completed Troponin I Q3H Lab 09/02/23 03:33 Completed Troponin I Q3H Lab 09/02/23 06:15 Ordered UA [Urinalysis and Microscopic] Stat Lab 09/02/23 03:07 Ordered Blood Culture Stat Micro 09/02/23 04:05 Received Urine Culture Stat Micro 09/02/23 03:05 Received ECG initial [place] Routine Y 09/02/23 03:40 Completed HEART Score History (anamnesis): Slightly suspicious ECG: Normal Age: <45 years Risk factors: 1-2 risk factors Troponin: </= normal limit HEART Score: 1 Medical Decision Narrative: 37-year-old female presents with right anterior chest pain and area of her port as well as persistent/worsening right flank/right lower quadrant pain. Presentation is complicated by history of innumerable UTIs, kidney stones requiring surgical invention, bacteremias. History was obtained via conversation with patient, chart review. On arrival, patient is [afebrile, hemodynamically stable, satting appropriately, alert, oriented x4, GCS 15], moving all extremities spontaneously. Full physical exam performed and significant for exam as above. Differential includes but is not limited to PE, ACS, pneumonia, musculoskeletal strain, bacteremia, UTI, pyelonephritis, ureterolithiasis, appendicitis, cholecystitis, COVID flu. Patient was given Tylenol, fluid bolus, 1 g ceftriaxone IV for symptomatic management and correction of underlying abnormalities. Workup initiated including CBC CMP UA blood cultures urine cultures troponin EKG CT abdomen pelvis with IV contrast, CT PE protocol. Patient placed on cardiac rehabilitation program director. On re-evaluation, patient [remains afebrile, HD stable.] On review of patient's prior micro studies, she has had ampicillin and fluoroquinolone and tetracycline resistant E. coli In the urine, has never been resistant to cephalosporins. She has previously had MRSA bacteremia, but never grew MRSA in the urine. 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 She has listed allergies to penicillins, aztreonam, doxycycline, Bactrim. Laboratory workup independently interpreted by me and significant for leukocytosis with white count of 12.9. Renal function at baseline. Urine shows 2+ bacteria, 5-10 WBCs, nitrate positive. Troponin negative. Imaging independently interpreted by me and significant for no evidence of urinary stone or abscess. No evidence of PE. Does show acute diverticulitis of the distal transverse colon as well as new onset 1.6 cm liver cyst of uncertain etiology. See radiology read for full review of final results. EKG independently interpreted by me and significant for sinus rhythm, rate of 90, no concerning ST or T wave changes.. Discharged with p.o. antibiotics was considered, but deemed inappropriate given clinical pyelonephritis with failure of previous outpatient antibiotic therapy as well as history of resistant organisms and numerous antibiotic allergies. Given patient history, exam and workup, patient's presentation most likely represents acute right-sided pyelonephritis, acute diverticulitis, new onset liver lesion of uncertain etiology. These findings were all communicated with patient. Reports that she has never been told about having diverticulitis or a liver lesion in the past. She is agreeable to admission. She would likely benefit from a formal liver ultrasound and outpatient workup of this lesion. Procedures Risk/Benefits of Procedure(s) Were Explained: Yes Critical Care Critical Care Time Critical Care Time: No
[2023-09-02 03:17] LABS: Microscopic, Urine URINE MICROSCOPIC (MICROSCOPIC)
[2023-09-02 03:19] LABS: Appearance,Urine CLEAR (Clear); Bilirubin,Urine Negative (Negative); Blood, Urine 1+ (Negative); Color,Urine YELLOW (Yellow); Glucose,Urine (UA) Negative (Negative); Ketones,Urine Negative (Negative); Leukocyte Esterase,Urine 1+ (Negative); Nitrate,Urine POSITIVE (Negative); Protein,Urine Negative (Negative); Specific Gravity, Urine 1.025 (1.005-1.030); Urobilinogen,Urine 0.2 EU/dl (0.2)
[2023-09-02] MEDS: ACETAMINOPHEN 500MG TAB 1000 MG PO (03:20)
[2023-09-02] MEDS: METHOCARBAMOL 500MG TABLET 500 MG PO (03:20)
[2023-09-02 03:31] LABS: Bacteria,Urine 2+ /lpf
[2023-09-02 03:32] LABS: Mucus,Urine 1+ /lpf
[2023-09-02] MEDS: 0.9 % SODIUM CHLORIDE 1000ML 1,000 ML 999 ML IV (03:40)
--- NOTE | 2023-09-02 03:40 | ECG_ITS ---
APPROVED REPORT Exam: Resting ECG HR:90 bpm ECG Measurements Heart Rate 90 AXES WA 156 P 47 QRSd 92 QRS 50 QT 360 T 54 QTc 407 Conclusion SINUS RHYTHM NORMAL ECG UNCONFIRMED REPORT Electronically signed by : Fantasma Siddiqi MD 09/02/2023 19:44:39
[2023-09-02 03:46] LABS: Basophils # 0.1 K/mm3 (0-0.2); Basophils % 0.8 % (0.1-2.0); Chloride 104 mmol/L (98-107); Eosinophils # 0.4 K/mm3 (0.0-0.4); Eosinophils % 3.3 % (0.1-12.0); Hemoglobin 14.7 g/dL (12.2-16.2); Lymphocytes # 2.1 K/mm3 (0.7-4.5); Lymphocytes % 16.4 % (10-50); Mean Corpuscular HGB Conc 34.2 g/dL (31.8-35.4); Mean Corpuscular Hemoglobin 30.1 pg (27.0-31.2); Mean Corpuscular Volume 88.2 fl (81-99); Monocytes # 0.7 K/mm3 (0.1-1.0); Monocytes % 5.2 % (1.7-9.3); Neutrophils # 9.6 K/mm3 (1.8-7.8); Neutrophils % 74.3 % (37.0-80.0); Platelet Count 400 K/mm3 (142-424); Potassium 3.7 mmoL/L (3.5-5.1); Red Blood Count 4.87 M/mm3 (4.20-5.40); Red Cell Distribution Width 14.1 % (11.5-17.5); Sodium 140 mmol/L (136-145); White Blood Count 12.9 K/mm3 (4.8-10.8)
[2023-09-02 03:48] LABS: Blood Urea Nitrogen 20 mg/dl (7-17); Creatinine Clearance Estimated 68 mL/min (50-200); Estimated Glomerular Filt Rate 70 ml/min (>60); GFR (African American) 85 ML/MIN (>60)
[2023-09-02 03:49] LABS: Coronavirus 19, PCR Not Detected (NotDetected); Influenza A, PCR Not Detected (NotDetected); Influenza B, PCR Not Detected (NotDetected)
[2023-09-02 03:49] LABS: Alanine Aminotransferase 31 U/L (12-78); Albumin Level 4.4 g/dl (3.5-5.0); Albumin/Globulin Ratio 1.1 (1.1-1.8); Alkaline Phosphatase 97 U/L (38-126); Anion Gap 10.7 mEq/L (5-15); Aspartate Amino Transferase 36 U/L (14-36); Bilirubin,Total 0.5 mg/dl (0.2-1.3); Calcium 8.6 mg/dl (8.4-10.2); Carbon Dioxide 29 mmol/L (22.0-30.0); Glucose 108 mg/dl (74-100); HCG Qualitative, Serum Negative (Negative); Total Protein,Serum 8.4 g/dl (6.3-8.2)
[2023-09-02 04:02] LABS: Troponin I < 0.01 ng/ml (0.00-0.034)
--- NOTE | 2023-09-02 04:09 | PC.NURSE ---
patient to CT
[2023-09-02] MEDS: CEFTRIAXONE 1 GM 1 GM in 0.9 % SODIUM CHLORIDE 50 ML IV (04:18)
--- NOTE | 2023-09-02 04:19 | PC.NURSE ---
patient back from radiology and in bed on cell phone
[2023-09-02] MEDS: 0.9 % SODIUM CHLORIDE 50 ML VIAL IV (04:22)
[2023-09-02] MEDS: IOPAMIDOL-370 (76%);100ML BOTTLE 75 ML IV (04:22)
[2023-09-02] MEDS: SODIUM CHLORIDE 0.9% 10ML SYR (RAD ONLY) 10 ML IV (04:22)
--- NOTE | 2023-09-02 05:26 | PC.NURSE ---
House notified of admit
--- NOTE | 2023-09-02 05:37 | PC.NURSE ---
OBSERVATION ADMISSION TO [facility] WITH DX OF PYELONEPHRITIS
--- NOTE | 2023-09-02 05:40 | PC.NURSE ---
Report called to EVE Mancia from 2nd floor. Awaiting transport for patient
[2023-09-02] MEDS: MORPHINE 4MG/ML SYRINGE 4 MG IV (05:41)
--- NOTE | 2023-09-02 05:52 | P.HP_ITS ---
History of Present Illness *Admission Date: 09/02/23 *Reason for visit:: abd pain *History of present illness: This is a 37-year-old female, obese , history of innumerable kidney stones, kidney infections, bacteremias for which she had a port placed, recent UTI with completion of course of cefdinir, presents with multiple complaints. She was working at [employer] and she had sudden onset of severe right upper chest pain. Denies any cardiac history. She reports the pain is in the area of her port. The port has not been used for at least a year. Patient also reports right flank pain that she thinks is either kidney infection or kidney stone that has been worsening. She reports that her urinary symptoms never fully resolved after recent antibiotic course. Admitted for further work up [facility] Disclaimer: The information contained in this section may have been updated after the patient was seen, as this information can be updated by other users. 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 current occupational exposures/hazards: No caffeine: No Review of Systems Review of Systems Review of systems:: pertinent systems reviewed and negative unless documented below Meds Home Medications and Allergies Home Medications Medication Instructions Recorded Confirmed Type hydrochlorothiazide 25 mg tablet 25 mg PO DAILY High Blood Pressure 09/02/23 09/02/23 History hydroxyzine HCl 25 mg tablet 25 mg PO TIDP PRN Anxiety 09/02/23 09/02/23 History paroxetine HCl 40 mg tablet 40 mg PO DAILY Anxiety 09/02/23 09/02/23 History New Prescriptions to Start Prescriptions: Allergies Allergy/AdvReac Type Severity Reaction Status Date / Time Penicillins Allergy Severe Hives Verified 06/22/23 20:51 gatifloxacin [From TEQUIN] Allergy Mild Verified 06/22/23 20:51 ketorolac [From TORADOL] Allergy Mild Verified 06/22/23 20:51 aztreonam [AZTREONAM] Allergy Unknown NA-NAUSEA/V Verified 06/22/23 20:51 OMITING cefaclor [CEFACLOR] Allergy Unknown Verified 06/22/23 20:51 codeine [CODEINE] Allergy Unknown BLEEDING Verified 06/22/23 20:51 OF EYES AND NOSE doxycycline [DOXYCYCLINE] Allergy Unknown Verified 06/22/23 20:51 midazolam [From VERSED] Allergy Unknown Verified 06/22/23 20:51 ondansetron Allergy Unknown Verified 06/22/23 20:51 [From ZOFRAN ( HYDROCHLORIDE)] sulfamethoxazole Allergy Unknown Verified 06/22/23 20:51 [From BACTRIM] trimethoprim [From BACTRIM] Allergy Unknown Verified 06/22/23 20:51 ibuprofen Allergy Verified 06/22/23 20:51 tramadol Allergy Verified 06/22/23 20:51 Exam Data for Last 24 hours Vital signs and Labs for Last 24 Hours: Temp Pulse Resp BP Pulse Ox O2 Del Method 98.2 F 92 H 20 143/91 H 97 Room Air 09/02/23 05:38 09/02/23 05:38 09/02/23 05:38 09/02/23 05:38 09/02/23 05:00 09/02/23 05:38 Laboratory Results - last 24 hr 09/02/23 03:05: Urine Color Yellow, Urine Appearance Clear, Urine pH 6.0, Ur Specific [place] 1.025, Urine Protein Negative, Urine Glucose (UA) Negative, Urine Ketones Negative, Urine Blood 1+, Urine Nitrate Positive, Urine Bilirubin Negative, Urine Urobilinogen 0.2, Ur Leukocyte Esterase 1+ A, Urine RBC 5-10, Urine WBC 5-10, Ur Squamous Epith Cells 5-10, Urine Bacteria 2+, Urine Mucus 1+ 09/02/23 03:33: WBC 12.9 H, RBC 4.87, Hgb 14.7, Hct 43.0, MCV 88.2, MCH 30.1, MCHC 34.2, RDW 14.1, Plt Count 400, MPV 8.0, Neut % (Auto) 74.3, Lymph % (Auto) 16.4, [place] % (Auto) 5.2, Eos % (Auto) 3.3, Baso % (Auto) 0.8, Neut # (Auto) 9.6 H, Lymph # (Auto) 2.1, [place] # (Auto) 0.7, Eos # (Auto) 0.4, Baso # (Auto) 0.1, Sodium 140, Potassium 3.7, Chloride 104, Carbon Dioxide 29, Anion Gap 10.7, BUN 20 H, Creatinine 0.90, Estimated Creat Clear 68, Estimated GFR 70, Est GFR ( Amer) 85, Glucose 108 H, Calcium 8.6, Total Bilirubin 0.5, AST 36, ALT 31, Alkaline Phosphatase 97, Troponin I < 0.01, Total Protein 8.4 H, Albumin 4.4, Globulin 4.0 H, Albumin/Globulin Ratio 1.1, Serum HCG, Qual Negative 09/02/23 03:35: SARS-CoV-2 (PCR) Not detected, Influenza A Untype (PCR) Not detected, Influenza Type B (PCR) Not detected I & O for Last 24 hours: Intake & Output 08/30/23 08/31/23 09/01/23 09/02/23 23:59 23:59 23:59 23:59 Weight 111.13 kg Constitutional Constitutional: moderate distress, morbidly obese and cooperative *Routine HEENT Exam Head: Present normocephalic and atraumatic Eye: Present EOMI, PERRL and normal accommodation ENT: Present mucous membranes moist *Routine Neck Exam Neck: Present supple, full ROM and trachea midline *Routine Respiratory Exam Respiratory: Present decreased breath sounds, normal respiratory effort, able to speak in complete sentences and symmetric chest movement *Routine Cardiovascular Exam Cardiovascular: Present RRR, Normal S1, Normal S2 and tachycardia *Routine Abdominal Exam Abdominal: Present soft, normoactive bowel sounds, tenderness, distended and obese *Routine Rectal Exam Rectal:: deferred *Routine Genitalia Exam Genitalia:: deferred *Routine Extremities Exam Extremities: Present full ROM and pulses intact; Absent cyanosis, clubbing or edema *Routine Skin Exam Skin: Present intact, dry and warm *Routine Neurological Exam Neurological: Present alert, oriented X3, normal reflexes, moving all extremities and normal speech Routine Psychiatric Exam Psychiatric: Present normal thought process, cooperative, good judgment and depressed H&P: Result Imaging and Cardiology CT scan - chest: Status: image reviewed by me, Preliminary report and final report CT scan - abdomen: Status: image reviewed by me, Preliminary report and final report Assessment and Plan *Assessment and plan (1) Abdominal pain: Status: Acute Qualifiers: Abdominal location: right lower quadrant Qualified Code(s): R10.31 - Right lower quadrant pain Category: Medical Code(s): R10.9 - Unspecified abdominal pain (2) Diverticulitis: Status: Acute Category: Medical Code(s): K57.92 - Diverticulitis of intestine, part unspecified, without perforation or abscess without bleeding (3) Pyelonephritis: Status: Acute Category: Medical Code(s): N12 - Tubulo-interstitial nephritis, not specified as acute or chronic (4) Lesion of liver greater than 1 cm in diameter: Status: Acute Category: Medical Code(s): K76.9 - Liver disease, unspecified (5) Hypertension: Status: Acute Qualifiers: Hypertension type: unspecified Qualified Code(s): I10 - Essential (primary) hypertension Category: Medical Code(s): I10 - Essential (primary) hypertension (6) Anxiety: Status: Chronic Category: Medical Code(s): F41.9 - Anxiety disorder, unspecified (7) Morbid obesity with BMI of 40.0-44.9, adult: Status: Acute Category: Medical Code(s): E66.01 - Morbid (severe) obesity due to excess calories; Z68.41 - Body mass index [BMI] 40.0-44.9, adult Plan 37-year-old female, obese , history of innumerable kidney stones, kidney infections, bacteremias for which she had a port placed, recent UTI that failed outpatient therapy. Extensive histoty of drugs allergies and resistant made more difficult to treat as outpatient. On arrival CTA of abdomen was obtained there is a concern for moderate diverticulitis of the distal transverse colon, with no perforation or abscess. 1.6 cm structure within the right lobe of the liver This is highly concerning for malignancy per radiology report. CT of chest was also concerning for ground glass opacity. UA and BC was drawn. labs showed leukocytosis with white count of 12.9. Renal function at baseline. Urine shows 2+ bacteria, 5-10 WBCs, nitrate positive. Troponin negative. Findings discussed with ER. Agreed for admission plan as follow: -Abdominal pain, likely diverticulitis, however the strong history of multiples UTIs with positive bacteria in urine are highly suggestive of concomitant UTI: admit patient surgical consult started on Ceft and flagyl pain managemnt zofran for auseas and vomit UA pending BC pending - Liver lesion: new finding monitor liver function lab in the morning F/u with GI for definitive diagnosis HTN resumed home meds Morbid obesity: educated about weight management. PCP to f/u abnormal BMI Lovenox for dvt ppx on protonix Full Code Attending attestation Patient was seen and evaluated at the bedside myself, agree with [employer] note.
--- NOTE | 2023-09-02 05:58 | PC.NURSE ---
pt arrived to the floor via wheelchair @05:55
[2023-09-02] MEDS: 0.9 % SODIUM CHLORIDE 1000ML 1,000 ML 100 ML IV ×2 (06:02→17:18)
[2023-09-02 07:27] LABS: Chloride 107 mmol/L (98-107); Potassium 3.7 mmoL/L (3.5-5.1); Sodium 139 mmol/L (136-145)
[2023-09-02 07:30] LABS: Alanine Aminotransferase 30 U/L (12-78); Albumin Level 3.8 g/dl (3.5-5.0); Albumin/Globulin Ratio 1.1 (1.1-1.8); Alkaline Phosphatase 78 U/L (38-126); Anion Gap 10.7 mEq/L (5-15); Aspartate Amino Transferase 35 U/L (14-36); Bilirubin,Total 0.5 mg/dl (0.2-1.3); Blood Urea Nitrogen 17 mg/dl (7-17); Calcium 7.9 mg/dl (8.4-10.2); Carbon Dioxide 25 mmol/L (22.0-30.0); Cholesterol 204 mg/dl (140-200); Creatinine Clearance Estimated 83 mL/min (50-200); Estimated Glomerular Filt Rate 94 ml/min (>60); GFR (African American) 114 ML/MIN (>60); Globulin 3.4 g/dL (1.3-3.2); Glucose 128 mg/dl (74-100); Total Protein,Serum 7.2 g/dl (6.3-8.2); Triglycerides 181 mg/dl (30-150); VLDL Cholesterol 36 mg/dL (0-40)
[2023-09-02 07:31] LABS: Chol/HDL Ratio 5.5 (1-3.5); HDL Cholesterol 37 mg/dl (40-60)
[2023-09-02 07:33] LABS: Basophils # 0.1 K/mm3 (0-0.2); Basophils % 0.6 % (0.1-2.0); Eosinophils # 0.4 K/mm3 (0.0-0.4); Eosinophils % 3.5 % (0.1-12.0); Hematocrit 39.1 % (37.0-47.0); Hemoglobin 13.6 g/dL (12.2-16.2); Lymphocytes # 2.4 K/mm3 (0.7-4.5); Mean Corpuscular HGB Conc 34.7 g/dL (31.8-35.4); Mean Corpuscular Hemoglobin 30.1 pg (27.0-31.2); Mean Corpuscular Volume 86.8 fl (81-99); Mean Platelet Volume 8.5 fl (7.4-10.4); Monocytes # 0.7 K/mm3 (0.1-1.0); Monocytes % 5.7 % (1.7-9.3); Neutrophils # 8.3 K/mm3 (1.8-7.8); Neutrophils % 70.3 % (37.0-80.0); Platelet Count 364 K/mm3 (142-424); Red Cell Distribution Width 14.1 % (11.5-17.5); White Blood Count 11.8 K/mm3 (4.8-10.8)
[2023-09-02 07:41] LABS: Direct LDL Cholesterol 109.83 mg/dL (100-129)
--- NOTE | 2023-09-02 08:30 | CARE MANAGER ---
Contacted [place] transfer facility. No beds available. EVE Alston
[2023-09-02] MEDS: METRONIDAZ/SOD CHL 500 MG/100 ML PIGGYBACK 100 MG IV ×2 (08:50→17:18)
[2023-09-02] MEDS: PARoxetine 20MG TABLET 40 MG PO (08:51)
[2023-09-02] MEDS: ACETAMINOPHEN 325MG TAB 650 MG PO ×2 (08:52→20:17)
[2023-09-02] MEDS: hydroCHLOROthiazide 25MG TABLET 25 MG PO (08:52)
[2023-09-02] MEDS: PANTOPRAZOLE 40MG TABLET 40 MG PO (08:52)
[2023-09-02] MEDS: ENOXAPARIN 40MG/0.4ML SYRINGE 40 MG SQ (08:52)
[2023-09-02] MEDS: hydrOXYzine pamoate 25MG CAPSULE 25 MG PO ×3 (08:52→21:31)
--- NOTE | 2023-09-02 10:46 | HMH.PHAINT1 ---
Pharmacy Intervention Comments: Verified home meds with patient at bedside.
[2023-09-02] MEDS: MORPHINE 2MG/ML SYRINGE 2 MG IV ×3 (12:17→21:31)
--- NOTE | 2023-09-02 16:57 | EXP.PN ---
Subjective *Date: 09/02/23 *Time: 16:57 Interval history: patient was seen and evaluated at the bedside. complains of abdominal pain, feels nausea Exam Data for Last 24 hours Vital signs and Labs for Last 24 Hours: Temp Pulse Resp BP Pulse Ox O2 Del Method O2 Flow Rate 97.7 F 90 19 149/97 H 98 Room Air 97 09/02/23 08:00 09/02/23 08:00 09/02/23 08:00 09/02/23 07:22 09/02/23 08:00 09/02/23 16:23 09/02/23 08:58 Laboratory Results - last 24 hr 09/02/23 03:05: Urine Color Yellow, Urine Appearance Clear, Urine pH 6.0, Ur Specific [place] 1.025, Urine Protein Negative, Urine Glucose (UA) Negative, Urine Ketones Negative, Urine Blood 1+, Urine Nitrate Positive, Urine Bilirubin Negative, Urine Urobilinogen 0.2, Ur Leukocyte Esterase 1+ A, Urine RBC 5-10, Urine WBC 5-10, Ur Squamous Epith Cells 5-10, Urine Bacteria 2+, Urine Mucus 1+ 09/02/23 03:33: WBC 12.9 H, RBC 4.87, Hgb 14.7, Hct 43.0, MCV 88.2, MCH 30.1, MCHC 34.2, RDW 14.1, Plt Count 400, MPV 8.0, Neut % (Auto) 74.3, Lymph % (Auto) 16.4, Evangeline % (Auto) 5.2, Eos % (Auto) 3.3, Baso % (Auto) 0.8, Neut # (Auto) 9.6 H, Lymph # (Auto) 2.1, Evangeline # (Auto) 0.7, Eos # (Auto) 0.4, Baso # (Auto) 0.1, Sodium 140, Potassium 3.7, Chloride 104, Carbon Dioxide 29, Anion Gap 10.7, BUN 20 H, Creatinine 0.90, Estimated Creat Clear 68, Estimated GFR 70, Est GFR ( Amer) 85, Glucose 108 H, Calcium 8.6, Total Bilirubin 0.5, AST 36, ALT 31, Alkaline Phosphatase 97, Troponin I < 0.01, Total Protein 8.4 H, Albumin 4.4, Globulin 4.0 H, Albumin/Globulin Ratio 1.1, Serum HCG, Qual Negative 09/02/23 03:35: SARS-CoV-2 (PCR) Not detected, Influenza A Untype (PCR) Not detected, Influenza Type B (PCR) Not detected 09/02/23 07:02: WBC 11.8 H, RBC 4.50, Hgb 13.6, Hct 39.1, MCV 86.8, MCH 30.1, MCHC 34.7, RDW 14.1, Plt Count 364, MPV 8.5, Neut % (Auto) 70.3, Lymph % (Auto) 20.0, Evangeline % (Auto) 5.7, Eos % (Auto) 3.5, Baso % (Auto) 0.6, Neut # (Auto) 8.3 H, Lymph # (Auto) 2.4, Evangeline # (Auto) 0.7, Eos # (Auto) 0.4, Baso # (Auto) 0.1, Sodium 139, Potassium 3.7, Chloride 107, Carbon Dioxide 25, Anion Gap 10.7, BUN 17, Creatinine 0.70 D, Estimated Creat Clear 83, Estimated GFR 94, Est GFR ( Amer) 114 D, Glucose 128 H, Calcium 7.9 L, Total Bilirubin 0.5, AST 35, ALT 30, Alkaline Phosphatase 78, Total Protein 7.2, Albumin 3.8 D, Globulin 3.4 H, Albumin/Globulin Ratio 1.1, Triglycerides 181 H, Cholesterol 204 H, LDL Cholesterol Direct 109.83, VLDL Cholesterol 36, HDL Cholesterol 37 L, Cholesterol/HDL Ratio 5.5 H I & O for Last 24 hours: Intake & Output 08/30/23 08/31/23 09/01/23 09/02/23 23:59 23:59 23:59 23:59 Intake Total 780 / 780 Output Total 0 / 0 Balance 780 / 780 Weight 110.631 kg Assessment and Plan *Assessment and plan (1) Abdominal pain: Status: Acute Qualifiers: Abdominal location: right lower quadrant Qualified Code(s): R10.31 - Right lower quadrant pain Category: Medical Code(s): R10.9 - Unspecified abdominal pain Plan continue current Abx, see same date H&P for further recommendations and treatment plan
[2023-09-03] VITALS (8 sets, daily range): BP systolic 164–180; BP diastolic 78–109; PULSE 83–95; RESP 14–18; TEMP 36.6–36.8; O2SAT 94–99; BMI 45.6
[2023-09-03] MEDS: METRONIDAZ/SOD CHL 500 MG/100 ML PIGGYBACK 100 MG IV ×2 (01:09→09:08)
[2023-09-03] MEDS: 0.9 % SODIUM CHLORIDE 1000ML 1,000 ML 100 ML IV ×3 (02:52→22:15)
[2023-09-03] MEDS: ACETAMINOPHEN 325MG TAB 650 MG PO (04:00)
[2023-09-03] MEDS: MORPHINE 2MG/ML SYRINGE 2 MG IV ×4 (04:01→21:20)
[2023-09-03] MEDS: CEFTRIAXONE 1 GM 1 GM in 0.9 % SODIUM CHLORIDE 50 ML IV (06:55)
--- NOTE | 2023-09-03 07:00 | P.CONS_ITS ---
History of Present Illness *Admission Date: 09/02/23 *Reason for visit:: Abdominal pain/diverticulitis *History of present illness: This is a 37-year-old female seen in consultation from the primary service for evaluation regarding abdominal pain and radiographic evidence of diverticulitis. She has been diagnosed with complex recurrent urinary tract infection after presenting to the emergency department with abdominal/flank pain. She continues to have persistent pain in the mid abdomen and right flank. Forwarded from admission H&P: This is a 37-year-old female, obese , history of innumerable kidney stones, kidney infections, bacteremias for which she had a port placed, recent UTI with completion of course of cefdinir, presents with multiple complaints. She was working at [email or web address] and she had sudden onset of severe right upper chest pain. Denies any cardiac history. She reports the pain is in the area of her port. The port has not been used for at least a year. Patient also reports right flank pain that she thinks is either kidney infection or kidney stone that has been worsening. She reports that her urinary symptoms never fully resolved after recent antibiotic course. Admitted for further work up [facility] Disclaimer: The information contained in this section may have been updated after the patient was seen, as this information can be updated by other users. 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 current occupational exposures/hazards: No caffeine: No Meds Home Medications and Allergies Home Medications Medication Instructions Recorded Confirmed Type hydrochlorothiazide 25 mg tablet 25 mg PO DAILY High Blood Pressure 09/02/23 09/02/23 History hydroxyzine HCl 25 mg tablet 25 mg PO TIDP PRN Anxiety 09/02/23 09/02/23 History paroxetine HCl 40 mg tablet 40 mg PO DAILY Anxiety 09/02/23 09/02/23 History New Prescriptions to Start Prescriptions: Allergies Allergy/AdvReac Type Severity Reaction Status Date / Time Penicillins Allergy Severe Hives Verified 06/22/23 20:51 gatifloxacin [From TEQUIN] Allergy Mild Verified 06/22/23 20:51 ketorolac [From TORADOL] Allergy Mild Verified 06/22/23 20:51 aztreonam [AZTREONAM] Allergy Unknown NA-NAUSEA/V Verified 06/22/23 20:51 OMITING cefaclor [CEFACLOR] Allergy Unknown Verified 06/22/23 20:51 codeine [CODEINE] Allergy Unknown BLEEDING Verified 06/22/23 20:51 OF EYES AND NOSE doxycycline [DOXYCYCLINE] Allergy Unknown Verified 06/22/23 20:51 midazolam [From VERSED] Allergy Unknown Verified 06/22/23 20:51 ondansetron Allergy Unknown Verified 06/22/23 20:51 [From ZOFRAN ( HYDROCHLORIDE)] sulfamethoxazole Allergy Unknown Verified 06/22/23 20:51 [From BACTRIM] trimethoprim [From BACTRIM] Allergy Unknown Verified 06/22/23 20:51 ibuprofen Allergy Verified 06/22/23 20:51 tramadol Allergy Verified 06/22/23 20:51 Exam (Inpt) Vital signs and Labs for Last 24 Hours: Temp Pulse Resp BP Pulse Ox O2 Del Method O2 Flow Rate 98.0 F 93 H 18 173/94 H 96 Room Air 97 09/03/23 04:00 09/03/23 04:00 09/03/23 04:00 09/03/23 04:00 09/03/23 04:00 09/03/23 04:00 09/02/23 08:58 Laboratory Results - last 24 hr 09/02/23 07:02: WBC 11.8 H, RBC 4.50, Hgb 13.6, Hct 39.1, MCV 86.8, MCH 30.1, MCHC 34.7, RDW 14.1, Plt Count 364, MPV 8.5, Neut % (Auto) 70.3, Lymph % (Auto) 20.0, [place] % (Auto) 5.7, Eos % (Auto) 3.5, Baso % (Auto) 0.6, Neut # (Auto) 8.3 H, Lymph # (Auto) 2.4, [place] # (Auto) 0.7, Eos # (Auto) 0.4, Baso # (Auto) 0.1, Sodium 139, Potassium 3.7, Chloride 107, Carbon Dioxide 25, Anion Gap 10.7, BUN 17, Creatinine 0.70 D, Estimated Creat Clear 83, Estimated GFR 94, Est GFR ( Amer) 114 D, Glucose 128 H, Calcium 7.9 L, Total Bilirubin 0.5, AST 35, ALT 30, Alkaline Phosphatase 78, Total Protein 7.2, Albumin 3.8 D, Globulin 3.4 H, Albumin/Globulin Ratio 1.1, Triglycerides 181 H, Cholesterol 204 H, LDL Cholesterol Direct 109.83, VLDL Cholesterol 36, HDL Cholesterol 37 L, Cholesterol/HDL Ratio 5.5 H I & O for Labs for Last 24 Hours: Intake & Output 08/31/23 09/01/23 09/02/23 09/03/23 11:59 11:59 11:59 11:59 Intake Total 420 / 420 720 / 720 Output Total 0 / 0 0 / 0 Balance 420 / 420 720 / 720 Weight 243 lb 14.4 oz 248 lb 2 oz Constitutional: no acute distress Respiratory: Absent respiratory distress Cardiac: Absent Tachycardia GI: Present soft and tenderness (Mid abdomen and right flank tenderness to palp ation); Absent guarding Results Labs 09/02/23 07:02 09/02/23 07:02 Labs: Laboratory Results - last 24 hr 09/02/23 07:02: WBC 11.8 H, RBC 4.50, Hgb 13.6, Hct 39.1, MCV 86.8, MCH 30.1, MCHC 34.7, RDW 14.1, Plt Count 364, MPV 8.5, Neut % (Auto) 70.3, Lymph % (Auto) 20.0, [place] % (Auto) 5.7, Eos % (Auto) 3.5, Baso % (Auto) 0.6, Neut # (Auto) 8.3 H, Lymph # (Auto) 2.4, [place] # (Auto) 0.7, Eos # (Auto) 0.4, Baso # (Auto) 0.1, Sodium 139, Potassium 3.7, Chloride 107, Carbon Dioxide 25, Anion Gap 10.7, BUN 17, Creatinine 0.70 D, Estimated Creat Clear 83, Estimated GFR 94, Est GFR ( Amer) 114 D, Glucose 128 H, Calcium 7.9 L, Total Bilirubin 0.5, AST 35, ALT 30, Alkaline Phosphatase 78, Total Protein 7.2, Albumin 3.8 D, Globulin 3.4 H, Albumin/Globulin Ratio 1.1, Triglycerides 181 H, Cholesterol 204 H, LDL Cholesterol Direct 109.83, VLDL Cholesterol 36, HDL Cholesterol 37 L, Cholesterol/HDL Ratio 5.[address] scan - abdomen: report reviewed and image reviewed CT scan - pelvis: report reviewed and image reviewed Assessment and Plan *Assessment and plan (1) Complicated UTI (urinary tract infection): Status: Acute Category: Medical Code(s): N39.0 - Urinary tract infection, site not specified Plan: Continue management as per primary service. (2) Diverticulitis: Status: Acute Category: Medical Code(s): K57.92 - Diverticulitis of intestine, part unspecified, without perforation or abscess without bleeding Plan: No evidence of abscess. No need for immediate surgical intervention. Ongoing discussion with regard to colonoscopy in 6-8 weeks (in outpatient setting). Invanz ordered Ongoing antibiotic management (avoidance of duplication) as per primary service
[2023-09-03] MEDS: PANTOPRAZOLE 40MG TABLET 40 MG PO (08:10)
[2023-09-03] MEDS: hydroCHLOROthiazide 25MG TABLET 25 MG PO (08:10)
[2023-09-03] MEDS: hydrOXYzine pamoate 25MG CAPSULE 25 MG PO ×2 (08:10→21:19)
[2023-09-03] MEDS: PARoxetine 20MG TABLET 40 MG PO (08:10)
--- NOTE | 2023-09-03 09:24 | XR_ITS ---
FINAL REPORT CLINICAL HISTORY: SOB COMPARISON: 05/03/2023 FINDINGS: A chest port is present on the right side with its tip in the superior vena cava. The heart size is normal. The mediastinum is normal. There is no focal infiltrate or edema. There are chronic changes in the lungs bilaterally. There are no pleural effusions. There is no pneumothorax. There is no osseous abnormality. IMPRESSION: No acute cardiopulmonary process Reviewed, Interpreted and Dictated by Taqueria Hodge MD Transcribed by Edith Rico Authenticated and [facility]
[2023-09-03] MEDS: ERTAPENEM SODIUM 1 GM in 0.9 % SODIUM CHLORIDE 50 ML IV (09:44)
[2023-09-03 10:53] LABS: Procalcitonin 0.055 ng/mL (0.0-2.0)
--- NOTE | 2023-09-03 15:49 | EXP.PN ---
Subjective *Date: 09/03/23 *Time: 15:49 Interval history: patient was seen and evaluated at the bedside. still has abdominal pain, feels nauseated Exam Data for Last 24 hours Vital signs and Labs for Last 24 Hours: Temp Pulse Resp BP Pulse Ox O2 Del Method O2 Flow Rate 97.8 F 95 H 17 178/78 H 98 Room Air 97 09/03/23 08:00 09/03/23 08:00 09/03/23 08:00 09/03/23 08:00 09/03/23 08:00 09/03/23 15:26 09/02/23 08:58 Laboratory Results - last 24 hr 09/03/23 10:18: Procalcitonin 0.055 I & O for Last 24 hours: Intake & Output 08/31/23 09/01/23 09/02/23 09/03/23 23:59 23:59 23:59 23:59 Intake Total 1140 / 1740 1810 / 1810 Output Total 0 / 0 0 / 0 Balance 1140 / 1740 1810 / 1810 Weight 110.631 kg 112.548 kg Constitutional Constitutional: no acute distress *Routine HEENT Exam Head: Present normocephalic Eye: Present EOMI and PERRL ENT: Present mucous membranes moist *Routine Neck Exam Neck: Present supple; Absent lymphadenopathy *Routine Respiratory Exam Respiratory: Present CTA bilaterally *Routine Cardiovascular Exam Cardiovascular: Present RRR *Routine Abdominal Exam Abdominal: Present soft, normoactive bowel sounds and tenderness *Routine Extremities Exam Extremities: Absent cyanosis, clubbing or edema *Routine Skin Exam Skin: Present warm; Absent rash *Routine Neurological Exam Neurological: Present alert and oriented X3 Assessment and Plan *Assessment and plan (1) Abdominal pain: Status: Acute Qualifiers: Abdominal location: right lower quadrant Qualified Code(s): R10.31 - Right lower quadrant pain Category: Medical Code(s): R10.9 - Unspecified abdominal pain (2) Diverticulitis: Status: Acute Category: Medical Code(s): K57.92 - Diverticulitis of intestine, part unspecified, without perforation or abscess without bleeding (3) Pyelonephritis: Status: Acute Category: Medical Code(s): N12 - Tubulo-interstitial nephritis, not specified as acute or chronic (4) Lesion of liver greater than 1 cm in diameter: Status: Acute Category: Medical Code(s): K76.9 - Liver disease, unspecified (5) Hypertension: Status: Acute Qualifiers: Hypertension type: unspecified Qualified Code(s): I10 - Essential (primary) hypertension Category: Medical Code(s): I10 - Essential (primary) hypertension (6) Anxiety: Status: Chronic Category: Medical Code(s): F41.9 - Anxiety disorder, unspecified (7) Morbid obesity with BMI of 40.0-44.9, adult: Status: Acute Category: Medical Code(s): E66.01 - Morbid (severe) obesity due to excess calories; Z68.41 - Body mass index [BMI] 40.0-44.9, adult Plan 37-year-old female, obese , history of innumerable kidney stones, kidney infections, bacteremias for which she had a port placed, recent UTI that failed outpatient therapy. Extensive histoty of drugs allergies and resistant made more difficult to treat as outpatient. On arrival CTA of abdomen was obtained there is a concern for moderate diverticulitis of the distal transverse colon, with no perforation or abscess. 1.6 cm structure within the right lobe of the liver This is highly concerning for malignancy per radiology report. CT of chest was also concerning for ground glass opacity. UA and BC was drawn. labs showed leukocytosis with white count of 12.9. Renal function at baseline. Urine shows 2+ bacteria, 5-10 WBCs, nitrate positive. Troponin negative. Findings discussed with ER. Agreed for admission plan as follow: -Abdominal pain, likely diverticulitis, however the strong history of multiples UTIs with positive bacteria in urine are highly suggestive of concomitant UTI: admit patient surgical consult switch abx to invanz, GS consulted pain managemnt zofran for auseas and vomit UA pending BC pending - Liver lesion: new finding monitor liver function lab in the morning F/u with GI for definitive diagnosis as OP HTN resumed home meds Morbid obesity: educated about weight management. PCP to f/u abnormal BMI Lovenox for dvt ppx on protonix Full Code
[2023-09-03] MEDS: ENALAPRILAT 2.5MG/2ML VIAL 0.625 MG IV (21:20)
[2023-09-04] VITALS (8 sets, daily range): BP systolic 138–180; BP diastolic 76–113; PULSE 75–94; RESP 16–18; TEMP 36.7–37.1; O2SAT 91–100; BMI 44.6
[2023-09-04] MEDS: LABETALOL 5MG/ML 20ML MDV 10 MG IV (00:11)
[2023-09-04] MEDS: 0.9 % SODIUM CHLORIDE 1000ML 1,000 ML 100 ML IV (01:02)
[2023-09-04] MEDS: HYDRALAZINE 20MG/ML VIAL 10 MG IV ×2 (01:02→15:46)
[2023-09-04] MEDS: MORPHINE 2MG/ML SYRINGE 2 MG IV ×5 (01:19→20:26)
[2023-09-04] MEDS: ERTAPENEM SODIUM 1 GM in 0.9 % SODIUM CHLORIDE 50 ML IV (06:49)
[2023-09-04] MEDS: PARoxetine 20MG TABLET 40 MG PO (08:17)
[2023-09-04] MEDS: PANTOPRAZOLE 40MG TABLET 40 MG PO (08:17)
[2023-09-04] MEDS: hydroCHLOROthiazide 25MG TABLET 25 MG PO (08:17)
[2023-09-04] MEDS: ACETAMINOPHEN 325MG TAB 650 MG PO ×2 (08:17→20:27)
[2023-09-04] MEDS: hydrOXYzine pamoate 25MG CAPSULE 25 MG PO ×2 (08:17→20:27)
--- NOTE | 2023-09-04 08:45 | EXP.SURG.PN ---
Subjective Narrative: She states that she feels about the same stomach kiran . She complains of headache this morning. Exam Data for Last 24 hours Vital signs and Labs for Last 24 Hours: Temp Pulse Resp BP Pulse Ox O2 Del Method O2 Flow Rate 98.7 F 87 18 166/98 H 95 Room Air 97 09/04/23 04:00 09/04/23 04:00 09/04/23 04:00 09/04/23 06:00 09/04/23 04:00 09/04/23 07:57 09/02/23 08:58 Laboratory Results - last 24 hr 09/03/23 10:18: Procalcitonin 0.055 I & O for Last 24 hours: Intake & Output 09/01/23 09/02/23 09/03/23 09/04/23 11:59 11:59 11:59 11:59 Intake Total 420 / 420 1680 / 1680 2550 / 2550 Output Total 0 / 0 0 / 0 0 / 0 Balance 420 / 420 1680 / 1680 2550 / 2550 Weight 243 lb 14.4 oz 248 lb 2 oz 242 lb 12.8 oz Constitutional Constitutional: no acute distress *Routine Respiratory Exam Respiratory: Absent respiratory distress *Routine Cardiovascular Exam Cardiovascular: Absent tachycardia *Routine Abdominal Exam Abdominal: Present tenderness (Essentially unchanged) Progress Note: A&P Assessment and plan (1) Pyelonephritis: Status: Acute Assessment and plan: Continue management as per primary service (2) Abdominal pain: Status: Acute Assessment and plan: Likely multifactorial (pyelonephritis, diverticulitis/colitis, etc.) (3) Diverticulitis: Status: Acute Assessment and plan: Follow-up a.m. CBC Continue antibiotics No evidence of abscess. No need for immediate surgical intervention. Ongoing discussion with regard to colonoscopy in 6-8 weeks (in outpatient setting). (4) Lesion of liver greater than 1 cm in diameter: Status: Acute Assessment and plan: The patient is aware of this finding and understands that ongoing evaluation and management in the outpatient setting warranted. She plans to discuss with her primary care provider.
--- NOTE | 2023-09-04 10:36 | CT_ITS ---
PROCEDURE INFORMATION: Exam: CT Abdomen And Pelvis Without Contrast Exam date and time: 09/04/2023 10:55 AM Age: 37 years old Clinical indication: Abdominal pain; Prior surgery; Surgery date: 6+ months; Surgery type: Removal of gallbladder. Hysterectomy. Repair of umbilical hernia; Additional info: Abd pain TECHNIQUE: Imaging protocol: Computed tomography of the abdomen and pelvis without contrast. Radiation optimization: All CT scans at this facility use at least one of these dose optimization techniques: automated exposure control; mA and/or kV adjustment per patient size (includes targeted exams where dose is matched to clinical indication); or iterative reconstruction. REPORTING DATA: Count of CT and Cardiac NM exams in prior 12 months: This patient has received 4 known CTs and 0 known cardiac nuclear medicine studies in the 12 months prior to the current study. COMPARISON: CT ABDOMEN PELVIS W CON 09/02/2023 4:09 AM FINDINGS: Liver: Low-attenuation lesion previously noted in the right hepatic lobe not evident on noncontrast examination. Gallbladder and bile ducts: Previous cholecystectomy. Pancreas: Normal. No ductal dilation. Spleen: Normal. No splenomegaly. Adrenal glands: Normal. No mass. Kidneys and ureters: Stable nonobstructing left renal calculus. No hydronephrosis. Stomach and bowel: Decreasing inflammatory changes adjacent to distal transverse diverticulitis. No perforation. Negative for bowel obstruction. Appendix: No evidence of appendicitis. Intraperitoneal space: Unremarkable. No free air. No significant fluid collection. Vasculature: Unremarkable. No abdominal aortic aneurysm. Lymph nodes: Left axillary lymph node partially visualized, enlarged measuring 2.1 x 1.5 cm. Additional workup recommended. Urinary bladder: Unremarkable as visualized. Reproductive: Unremarkable as visualized. Bones/joints: Unremarkable. No acute fracture. Soft tissues: Small fat containing umbilical hernia. IMPRESSION: 1. Decreasing inflammatory changes adjacent to distal transverse diverticulitis. No perforation. 2. Low-attenuation lesion previously noted in the right hepatic lobe not evident on noncontrast examination. 3. Left axillary lymph node partially visualized, enlarged measuring 2.1 x 1.5 cm. Additional workup recommended.
--- NOTE | 2023-09-04 11:34 | PC.NURSE ---
pt. refused her iv fluids and states she will drink more fluids.
--- NOTE | 2023-09-04 15:42 | P.PN_ITS ---
Subjective *Date: 09/04/23 *Time: 15:42 Interval history: patient was seen and evaluated at the bedside, still has abdominal pain, feels nauseated Exam Data for Last 24 hours Vital signs and Labs for Last 24 Hours: Temp Pulse Resp BP Pulse Ox O2 Del Method O2 Flow Rate 98.7 F 75 18 165/97 H 91 L Room Air 97 09/04/23 15:38 09/04/23 15:38 09/04/23 15:38 09/04/23 15:38 09/04/23 15:38 09/04/23 15:38 09/02/23 08:58 I & O for Last 24 hours: Intake & Output 09/01/23 09/02/23 09/03/23 09/04/23 23:59 23:59 23:59 23:59 Intake Total 1140 / 1740 2170 / 3270 1340 / 1340 Output Total 0 / 0 0 / 0 0 / 0 Balance 1140 / 1740 2170 / 3270 1340 / 1340 Weight 110.631 kg 112.548 kg 110.132 kg Microbiology Reports for the Last 24 Hours: Microbiology 09/02/23 03:05 Urine,Clean Catch Urine Culture - Preliminary Constitutional Constitutional: no acute distress *Routine HEENT Exam Head: Present normocephalic Eye: Present EOMI and PERRL ENT: Present mucous membranes moist *Routine Neck Exam Neck: Present supple; Absent lymphadenopathy *Routine Respiratory Exam Respiratory: Present CTA bilaterally *Routine Cardiovascular Exam Cardiovascular: Present RRR *Routine Abdominal Exam Abdominal: Present soft, normoactive bowel sounds and tenderness *Routine Extremities Exam Extremities: Absent cyanosis, clubbing or edema *Routine Skin Exam Skin: Present warm; Absent rash *Routine Neurological Exam Neurological: Present alert and oriented X3 Assessment and Plan *Assessment and plan (1) Abdominal pain: Status: Acute Qualifiers: Abdominal location: right lower quadrant Qualified Code(s): R10.31 - Right lower quadrant pain Category: Medical Code(s): R10.9 - Unspecified abdominal pain (2) Diverticulitis: Status: Acute Category: Medical Code(s): K57.92 - Diverticulitis of intestine, part unspecified, without perforation or abscess without bleeding (3) Pyelonephritis: Status: Acute Category: Medical Code(s): N12 - Tubulo-interstitial nephritis, not specified as acute or chronic (4) Lesion of liver greater than 1 cm in diameter: Status: Acute Category: Medical Code(s): K76.9 - Liver disease, unspecified (5) Hypertension: Status: Acute Qualifiers: Hypertension type: unspecified Qualified Code(s): I10 - Essential (primary) hypertension Category: Medical Code(s): I10 - Essential (primary) hypertension (6) Anxiety: Status: Chronic Category: Medical Code(s): F41.9 - Anxiety disorder, unspecified (7) Morbid obesity with BMI of 40.0-44.9, adult: Status: Acute Category: Medical Code(s): E66.01 - Morbid (severe) obesity due to excess calories; Z68.41 - Body mass index [BMI] 40.0-44.9, adult Plan 37-year-old female, obese , history of innumerable kidney stones, kidney infections, bacteremias for which she had a port placed, recent UTI that failed outpatient therapy. Extensive histoty of drugs allergies and resistant made more difficult to treat as outpatient. On arrival CTA of abdomen was obtained there is a concern for moderate diverticulitis of the distal transverse colon, with no perforation or abscess. 1.6 cm structure within the right lobe of the liver Thi s is highly concerning for malignancy per radiology report. CT of chest was also concerning for ground glass opacity. UA and BC was drawn. labs showed leukocytosis with white count of 12.9. Renal function at baseline. Urine shows 2+ bacteria, 5-10 WBCs, nitrate positive. Troponin negative. Findings discussed with ER. Agreed for admission plan as follow: -Abdominal pain, likely diverticulitis, however the strong history of multiples UTIs with positive bacteria in urine are highly suggestive of concomitant UTI: admit patient surgical consult patient continue to complain for pain - did repeat scan Abd pelvis which showed improvement in diverticultis switch abx to invanz, GS consulted pain managemnt zofran for auseas and vomit UA pending BC pending - Liver lesion: new finding monitor liver function lab in the morning F/u with GI for definitive diagnosis as OP HTN resumed home meds Morbid obesity: educated about weight management. PCP to f/u abnormal BMI Lovenox for dvt ppx on protonix Full Code continue current abx
[2023-09-05] MEDS: MORPHINE 2MG/ML SYRINGE 2 MG IV ×2 (00:36→05:13)
[2023-09-05 04:00] VITALS: BP 155/99; PULSE 90; RESP 16; TEMP 36.6; O2SAT 95; BMI 45.1
[2023-09-05] MEDS: 0.9 % SODIUM CHLORIDE 1000ML 1,000 ML 100 ML IV ×2 (05:42→16:33)
[2023-09-05] MEDS: ERTAPENEM SODIUM 1 GM in 0.9 % SODIUM CHLORIDE 50 ML IV (07:08)
[2023-09-05 08:00] VITALS: BP 188/100; PULSE 90; RESP 18; TEMP 36.9; O2SAT 97
[2023-09-05] MEDS: hydroCHLOROthiazide 25MG TABLET 25 MG PO (08:40)
[2023-09-05] MEDS: hydrOXYzine pamoate 25MG CAPSULE 25 MG PO ×2 (08:40→21:35)
[2023-09-05] MEDS: PANTOPRAZOLE 40MG TABLET 40 MG PO (08:40)
[2023-09-05] MEDS: PARoxetine 20MG TABLET 40 MG PO (08:40)
[2023-09-05] MEDS: MORPHINE 2MG/ML SYRINGE 1 MG IV ×3 (09:51→21:50)
[2023-09-05 10:16] LABS: Basophils # 0.1 K/mm3 (0-0.2); Basophils % 0.6 % (0.1-2.0); Eosinophils # 0.6 K/mm3 (0.0-0.4); Eosinophils % 4.4 % (0.1-12.0); Hematocrit 42.9 % (37.0-47.0); Hemoglobin 14.2 g/dL (12.2-16.2); Lymphocytes % 15.4 % (10-50); Mean Corpuscular HGB Conc 33.2 g/dL (31.8-35.4); Mean Corpuscular Hemoglobin 28.9 pg (27.0-31.2); Mean Corpuscular Volume 87.2 fl (81-99); Mean Platelet Volume 7.5 fl (7.4-10.4); Monocytes # 0.7 K/mm3 (0.1-1.0); Monocytes % 5.2 % (1.7-9.3); Neutrophils # 9.4 K/mm3 (1.8-7.8); Neutrophils % 74.4 % (37.0-80.0); Platelet Count 396 K/mm3 (142-424); Red Blood Count 4.91 M/mm3 (4.20-5.40); Red Cell Distribution Width 14.1 % (11.5-17.5); White Blood Count 12.6 K/mm3 (4.8-10.8)
--- NOTE | 2023-09-05 10:23 | P.PN_ITS ---
Subjective Patient reports: no new complaints, feels better and still having pain Exam Data for Last 24 hours Vital signs and Labs for Last 24 Hours: Temp Pulse Resp BP Pulse Ox O2 Del Method O2 Flow Rate 98.4 F 90 18 188/100 H 97 Room Air 97 09/05/23 08:00 09/05/23 08:00 09/05/23 08:00 09/05/23 08:00 09/05/23 08:00 09/05/23 08:00 09/02/23 08:58 Laboratory Results - last 24 hr 09/05/23 10:09: WBC 12.6 H, RBC 4.91, Hgb 14.2, Hct 42.9, MCV 87.2, MCH 28.9, MCHC 33.2, RDW 14.1, Plt Count 396, MPV 7.5, Neut % (Auto) 74.4, Lymph % (Auto) 15.4, [place] % (Auto) 5.2, Eos % (Auto) 4.4, Baso % (Auto) 0.6, Neut # (Auto) 9.4 H, Lymph # (Auto) 2.0, [place] # (Auto) 0.7, Eos # (Auto) 0.6 H, Baso # (Auto) 0.1 I & O for Last 24 hours: Intake & Output 09/02/23 09/03/23 09/04/23 09/05/23 11:59 11:59 11:59 11:59 Intake Total 420 / 420 1680 / 1680 2550 / 2550 2260 / 2260 Output Total 0 / 0 0 / 0 0 / 0 0 / 0 Balance 420 / 420 1680 / 1680 2550 / 2550 2260 / 2260 Weight 243 lb 14.4 oz 248 lb 2 oz 242 lb 12.8 oz 245 lb 8 oz Microbiology Reports for the Last 24 Hours: Microbiology 09/02/23 03:10 Blood Blood Culture - Preliminary 09/02/23 04:05 Blood Blood Culture - Preliminary 09/02/23 03:05 Urine,Clean Catch Urine Culture - Preliminary Constitutional Constitutional: no acute distress *Routine Respiratory Exam Respiratory: Absent respiratory distress *Routine Cardiovascular Exam Cardiovascular: Absent tachycardia *Routine Abdominal Exam Abdominal: Present soft and tenderness Progress Note: A&P Assessment and plan (1) Pyelonephritis: Status: Acute Assessment and plan: Continue management as per primary service (2) Abdominal pain: Status: Acute Assessment and plan: Likely multifactorial (pyelonephritis, diverticulitis/colitis, etc.) (3) Diverticulitis: Status: Acute Assessment and plan: WBC 12.6 today. She remains afebrile. Improvement noted per most recent CT scan. Continue antibiotics as per primary service No evidence of abscess. No need for immediate surgical intervention. Ongoing discussion with regard to colonoscopy in 6-8 weeks (in outpatient setting). (4) Lesion of liver greater than 1 cm in diameter: Status: Acute Assessment and plan: The patient is aware of this finding and understands that ongoing evaluation and management in the outpatient setting warranted. She plans to discuss with her primary care provider. (5) Axillary adenopathy: Status: Acute Assessment and plan: The patient is aware of this finding and understands the need for further evaluation and management in the near future in the outpatient setting.
[2023-09-05 10:26] LABS: Anion Gap 6.7 mEq/L (5-15); Blood Urea Nitrogen 20 mg/dl (7-17); Calcium 8.1 mg/dl (8.4-10.2); Carbon Dioxide 29 mmol/L (22.0-30.0); Chloride 104 mmol/L (98-107); Creatinine Clearance Estimated 65 mL/min (50-200); Estimated Glomerular Filt Rate 70 ml/min (>60); GFR (African American) 85 ML/MIN (>60); Glucose 122 mg/dl (74-100); Potassium 3.7 mmoL/L (3.5-5.1); Sodium 136 mmol/L (136-145)
--- NOTE | 2023-09-05 11:53 | P.PN_ITS ---
Subjective *Date: 09/05/23 *Time: 11:53 Interval history: patient was seen and evaluated at the bedside, still has abdominal pain and flank pain, feels nauseated Exam Data for Last 24 hours Vital signs and Labs for Last 24 Hours: Temp Pulse Resp BP Pulse Ox O2 Del Method O2 Flow Rate 98.4 F 90 18 188/100 H 97 Room Air 97 09/05/23 08:00 09/05/23 08:00 09/05/23 08:00 09/05/23 08:00 09/05/23 08:00 09/05/23 10:57 09/02/23 08:58 Laboratory Results - last 24 hr 09/05/23 10:09: WBC 12.6 H, RBC 4.91, Hgb 14.2, Hct 42.9, MCV 87.2, MCH 28.9, MCHC 33.2, RDW 14.1, Plt Count 396, MPV 7.5, Neut % (Auto) 74.4, Lymph % (Auto) 15.4, [place] % (Auto) 5.2, Eos % (Auto) 4.4, Baso % (Auto) 0.6, Neut # (Auto) 9.4 H, Lymph # (Auto) 2.0, [place] # (Auto) 0.7, Eos # (Auto) 0.6 H, Baso # (Auto) 0.1, Sodium 136, Potassium 3.7, Chloride 104, Carbon Dioxide 29, Anion Gap 6.7, BUN 20 H, Creatinine 0.90, Estimated Creat Clear 65, Estimated GFR 70, Est GFR ( Amer) 85, Glucose 122 H, Calcium 8.1 L I & O for Last 24 hours: Intake & Output 09/02/23 09/03/23 09/04/23 09/05/23 23:59 23:59 23:59 23:59 Intake Total 1140 / 1740 2170 / 3270 2180 / 3130 1420 / 1420 Output Total 0 / 0 0 / 0 0 / 0 0 / 0 Balance 1140 / 1740 2170 / 3270 2180 / 3130 1420 / 1420 Weight 110.631 kg 112.548 kg 110.132 kg 111.357 kg Microbiology Reports for the Last 24 Hours: Microbiology 09/02/23 03:10 Blood Blood Culture - Preliminary 09/02/23 04:05 Blood Blood Culture - Preliminary 09/02/23 03:05 Urine,Clean Catch Urine Culture - Preliminary Constitutional Constitutional: no acute distress *Routine HEENT Exam Head: Present normocephalic Eye: Present EOMI and PERRL ENT: Present mucous membranes moist *Routine Neck Exam Neck: Present supple; Absent lymphadenopathy *Routine Respiratory Exam Respiratory: Present CTA bilaterally *Routine Cardiovascular Exam Cardiovascular: Present RRR *Routine Abdominal Exam Abdominal: Present soft, normoactive bowel sounds and tenderness *Routine Extremities Exam Extremities: Absent cyanosis, clubbing or edema *Routine Skin Exam Skin: Present warm; Absent rash *Routine Neurological Exam Neurological: Present alert and oriented X3 Assessment and Plan *Assessment and plan (1) Abdominal pain: Status: Acute Qualifiers: Abdominal location: right lower quadrant Qualified Code(s): R10.31 - Right lower quadrant pain Category: Medical Code(s): R10.9 - Unspecified abdominal pain (2) Diverticulitis: Status: Acute Category: Medical Code(s): K57.92 - Diverticulitis of intestine, part unspecified, without perforation or abscess without bleeding (3) Pyelonephritis: Status: Acute Category: Medical Code(s): N12 - Tubulo-interstitial nephritis, not specified as acute or chronic (4) Lesion of liver greater than 1 cm in diameter: Status: Acute Category: Medical Code(s): K76.9 - Liver disease, unspecified (5) Hypertension: Status: Acute Qualifiers: Hypertension type: unspecified Qualified Code(s): I10 - Essential (primary) hypertension Category: Medical Code(s): I10 - Essential (primary) hypertension (6) Anxiety: Status: Chronic Category: Medical Code(s): F41.9 - Anxiety disorder, unspecified (7) Morbid obesity with BMI of 40.0-44.9, adult: Status: Acute Category: Medical Code(s): E66.01 - Morbid (severe) obesity due to excess calories; Z68.41 - Body mass index [BMI] 40.0-44.9, adult Plan 37-year-old female, obese , history of innumerable kidney stones, kidney infections, bacteremias for which she had a port placed, recent UTI that failed outpatient therapy. Extensive histoty of drugs allergies and resistant made more difficult to treat as outpatient. On arrival CTA of abdomen was obtained there is a concern for moderate diverticulitis of the distal transverse colon, with no perforation or abscess. 1.6 cm structure within the right lobe of the liver This is highly concerning for malignancy per radiology report. CT of chest was also concerning for ground glass opacity. UA and BC was drawn. labs showed leukocytosis with white count of 12.9. Renal function at baseline. Urine shows 2+ bacteria, 5-10 WBCs, nitrate positive. Troponin negative. Findings discussed with ER. Agreed for admission plan as follow: -Abdominal pain, likely diverticulitis, however the strong history of multiples UTIs with positive bacteria in urine are highly suggestive of concomitant UTI: admit patient surgical consult - following patient continue to complain for pain - did repeat scan Abd pelvis which showed improvement in diverticulitis switch abx to invanz pain managemnt zofran for auseas and vomit UA pending - e-coli, <[id number] colonies BC pending - Liver lesion: new finding monitor liver function lab in the morning F/u with GI for definitive diagnosis as OP HTN resumed home meds Morbid obesity: educated about weight management. PCP to f/u abnormal BMI Lovenox for dvt ppx on protonix Full Code continue current IV Invanz, monitor CBC
--- NOTE | 2023-09-05 14:33 | PC.NURSE ---
PT IS RESTING IN BED. PT HAS SLEPT ON AND OFF T/O THE SHIFT. PT REFUSED [address] B/C SHE STATED SHE CAN ONLY TAKES IT BID AT HOME B/C IT MAKES HER VERY DROWSY. PT'S PORT WAS ACCESSED THIS MORNING PER . EATING AND DRINKING WELL. AMBULATES TO THE BATHROOM AND IN THE ROOM. LUNG SOUNDS CLEAR. ABDOMEN SOFT/NON TENDER WITH HYPOACTIVE BOWEL SOUNDS. WILL CONTINUE TO MONITOR.
[2023-09-05 15:22] VITALS: BP 144/100; PULSE 81; RESP 16; TEMP 36.8; O2SAT 97
[2023-09-05 20:00] VITALS: BP 163/91; PULSE 94; RESP 18; TEMP 36.8; O2SAT 95
[2023-09-06] MEDS: MORPHINE 2MG/ML SYRINGE 1 MG IV ×3 (02:20→10:34)
[2023-09-06] MEDS: 0.9 % SODIUM CHLORIDE 1000ML 1,000 ML 100 ML IV (02:53)
[2023-09-06 04:00] VITALS: BP 148/89; PULSE 82; RESP 18; TEMP 36.6; O2SAT 95; BMI 44.1
[2023-09-06] MEDS: ERTAPENEM SODIUM 1 GM in 0.9 % SODIUM CHLORIDE 50 ML IV (06:33)
[2023-09-06 08:00] VITALS: BP 173/107; PULSE 86; RESP 18; TEMP 36.8; O2SAT 96
[2023-09-06 09:06] VITALS: BP 158/90
[2023-09-06] MEDS: hydroCHLOROthiazide 25MG TABLET 25 MG PO (09:28)
[2023-09-06] MEDS: PANTOPRAZOLE 40MG TABLET 40 MG PO (09:28)
[2023-09-06] MEDS: PARoxetine 20MG TABLET 40 MG PO (09:28)
--- NOTE | 2023-09-06 09:54 | P.PN_ITS ---
Subjective *Date: 09/06/23 *Time: 09:54 Medical Exam Vital signs and Labs for Last 24 Hours: Vital Signs Temp Pulse Resp BP Pulse Ox O2 Del Method 09/06/23 09:06 158/90 H 09/06/23 08:00 98.2 F 86 18 173/107 H 96 Room Air 09/06/23 07:00 Room Air 09/06/23 05:00 Room Air 09/06/23 04:00 97.9 F 82 18 148/89 H 95 Room Air 09/06/23 03:00 Room Air 09/06/23 01:00 Room Air 09/05/23 23:00 Room Air 09/05/23 21:00 Room Air 09/05/23 20:00 98.3 F 94 H 18 163/91 H 95 Room Air 09/05/23 17:55 Room Air 09/05/23 17:00 Room Air 09/05/23 15:22 98.2 F 81 16 144/100 H 97 Room Air 09/05/23 14:40 Room Air 09/05/23 12:51 Room Air 09/05/23 10:57 Room Air Intake and Output 09/05/23 09/06/23 09/06/23 23:59 07:59 15:59 Intake Total 1386 / 3786 980 / 1080 100 / 1080 Output Total 0 / 0 0 / 0 Balance 1386 / 3786 980 / 1080 100 / 1080 Intake: Intake, Oral Amount 240 / 1790 480 / 580 100 / 580 Intake, Total IV Amount 1145 500 / 500 0.9 % Sodium Chloride 1000ML 1, 1145 500 / 500 000 ml @ 100 mls/hr IV .Q10H [facility] Rx#:[id number] Output: Output, Urine Amount 0 / 0 0 / 0 Other: Number of Voids 2 Number of Unmeasured Voids 1 1 Weight 108.908 kg Patient Weight 09/06/23 23:59 Weight 108.908 kg Laboratory Results - last 24 hr 09/05/23 10:09: WBC 12.6 H, RBC 4.91, Hgb 14.2, Hct 42.9, MCV 87.2, MCH 28.9, MCHC 33.2, RDW 14.1, Plt Count 396, MPV 7.5, Neut % (Auto) 74.4, Lymph % (Auto) 15.4, [place] % (Auto) 5.2, Eos % (Auto) 4.4, Baso % (Auto) 0.6, Neut # (Auto) 9.4 H, Lymph # (Auto) 2.0, [place] # (Auto) 0.7, Eos # (Auto) 0.6 H, Baso # (Auto) 0.1, Sodium 136, Potassium 3.7, Chloride 104, Carbon Dioxide 29, Anion Gap 6.7, BUN 20 H, Creatinine 0.90, Estimated Creat Clear 65, Estimated GFR 70, Est GFR ( Amer) 85, Glucose 122 H, Calcium 8.1 L I & O for Labs for Last 24 Hours: Intake & Output 09/03/23 09/04/23 09/05/23 09/06/23 23:59 23:59 23:59 23:59 Intake Total 2170 / 3270 2180 / 3130 2806 / 3786 1080 / 1080 Output Total 0 / 0 0 / 0 0 / 0 0 / 0 Balance 2170 / 3270 2180 / 3130 2806 / 3786 1080 / 1080 Weight 112.548 kg 110.132 kg 111.357 kg 108.908 kg Microbiology Reports for the Last 24 Hours: Microbiology 09/02/23 03:10 Blood Blood Culture - Preliminary 09/02/23 04:05 Blood Blood Culture - Preliminary 09/02/23 03:05 Urine,Clean Catch Urine Culture - Final The patient's infection will respond to the chosen ABx?: Yes (URINE CULTURE = E. COLI SENSITIVE TO INVANZ, AFEBRILE OVER 24 HRS) Is the patient receiving the right drug, dose, and route?: Yes Could a more targeted ABx be ordered?: No
--- NOTE | 2023-09-06 10:09 | P.PN_ITS ---
Subjective Patient reports: feels better Narrative: The patient states that she feels better and is hopeful that she can be discharged home. Exam Data for Last 24 hours Vital signs and Labs for Last 24 Hours: Temp Pulse Resp BP Pulse Ox O2 Del Method O2 Flow Rate 98.2 F 86 18 158/90 H 96 Room Air 97 09/06/23 08:00 09/06/23 08:00 09/06/23 08:00 09/06/23 09:06 09/06/23 08:00 09/06/23 08:00 09/02/23 08:58 Laboratory Results - last 24 hr 09/05/23 10:09: WBC 12.6 H, RBC 4.91, Hgb 14.2, Hct 42.9, MCV 87.2, MCH 28.9, MCHC 33.2, RDW 14.1, Plt Count 396, MPV 7.5, Neut % (Auto) 74.4, Lymph % (Auto) 15.4, [place] % (Auto) 5.2, Eos % (Auto) 4.4, Baso % (Auto) 0.6, Neut # (Auto) 9.4 H, Lymph # (Auto) 2.0, [place] # (Auto) 0.7, Eos # (Auto) 0.6 H, Baso # (Auto) 0.1, Sodium 136, Potassium 3.7, Chloride 104, Carbon Dioxide 29, Anion Gap 6.7, BUN 20 H, Creatinine 0.90, Estimated Creat Clear 65, Estimated GFR 70, Est GFR ( Amer) 85, Glucose 122 H, Calcium 8.1 L I & O for Last 24 hours: Intake & Output 09/03/23 09/04/23 09/05/23 09/06/23 11:59 11:59 11:59 11:59 Intake Total 1680 / 1680 2550 / 2550 2260 / 2260 2466 / 2466 Output Total 0 / 0 0 / 0 0 / 0 0 / 0 Balance 1680 / 1680 2550 / 2550 2260 / 2260 2466 / 2466 Weight 248 lb 2 oz 242 lb 12.8 oz 245 lb 8 oz 240 lb 1.6 oz Microbiology Reports for the Last 24 Hours: Microbiology 09/02/23 03:10 Blood Blood Culture - Preliminary 09/02/23 04:05 Blood Blood Culture - Preliminary 09/02/23 03:05 Urine,Clean Catch Urine Culture - Final Constitutional Constitutional: no acute distress *Routine Respiratory Exam Respiratory: Absent respiratory distress *Routine Cardiovascular Exam Cardiovascular: Absent tachycardia *Routine Abdominal Exam Abdominal: Present soft and tenderness (Improved) Progress Note: A&P Assessment and plan (1) Abdominal pain: Status: Acute Assessment and plan: Likely multifactorial (pyelonephritis, diverticulitis/colitis, etc.) Continuing to slowly improve Discharge with close outpatient follow-up when deemed appropriate per primary service (2) Diverticulitis: Status: Acute Assessment and plan: She remains afebrile. Improvement noted per most recent CT scan. Continue antibiotics as per primary service (likely transition to PO) No evidence of abscess. No need for immediate surgical intervention. Ongoing discussion with regard to colonoscopy in 6-8 weeks (in outpatient setting). (3) Pyelonephritis: Status: Acute Assessment and plan: Continue management as per primary service (4) Lesion of liver greater than 1 cm in diameter: Status: Acute Assessment and plan: The patient is aware of this finding and understands that ongoing evaluation and management in the outpatient setting warranted. She plans to discuss with her primary care provider. (5) Axillary adenopathy: Status: Acute Assessment and plan: The patient is aware of this finding and understands the need for further evaluation and management in the near future in the outpatient setting.
--- NOTE | 2023-09-06 12:26 | P.DS_ITS ---
General Admission date:: 09/02/23 Discharge date: 09/06/23 HPI HPI HPI: This is a 37-year-old female seen in consultation from the primary service for evaluation regarding abdominal pain and radiographic evidence of diverticulitis. She has been diagnosed with complex recurrent urinary tract infection after presenting to the emergency department with abdominal/flank pain. She continues to have persistent pain in the mid abdomen and right flank. Forwarded from admission H&P: This is a 37-year-old female, obese , history of innumerable kidney stones, kidney infections, bacteremias for which she had a port placed, recent UTI with completion of course of cefdinir, presents with multiple complaints. She was working at [email or web address] and she had sudden onset of severe right upper chest pain. Denies any cardiac history. She reports the pain is in the area of her port. The port has not been used for at least a year. Patient also reports right flank pain that she thinks is either kidney infection or kidney stone that has been worsening. She reports that her urinary symptoms never fully resolved after recent antibiotic course. Admitted for further work up Hospital Course Hospital Course Hospital Course: Patient was seen and evaluated at the bedside on the day of discharge. Patient is stable for discharge. Patient wishes to be discharged. All patient questions were answered and patient was given time to ask questions. Patient was discharged in stable condition. Patient understands that she can return to ER in case of any sudden changes in health. Total time spent on DC - 38 mins 37-year-old female, obese , history of innumerable kidney stones, kidney infections, bacteremias for which she had a port placed, recent UTI that failed outpatient therapy. Extensive histoty of drugs allergies and resistant made more difficult to treat as outpatient. On arrival CTA of abdomen was obtained there is a concern for moderate diverticulitis of the distal transverse colon, with no perforation or abscess. 1.6 cm structure within the right lobe of the liver This is highly concerning for malignancy per radiology report. CT of chest was also concerning for ground glass opacity. UA and BC was drawn. labs showed leukocytosis with white count of 12.9. Renal function at baseline. Urine shows 2+ bacteria, 5-10 WBCs, nitrate positive. Troponin negative. Findings discussed with ER. Agreed for admission plan as follow: -Abdominal pain, likely diverticulitis, improved, patient has extensive allergy list, mentions she can tolerate cipro and flagyl, dc on PO ciprfloxacin and flagyl, script given - Liver lesion: new finding monitor liver function lab in the morning F/u with GI for definitive diagnosis as OP HTN resumed home meds Morbid obesity: educated about weight management. PCP to f/u abnormal BMI Lovenox for dvt ppx on protonix Full Code continue current IV Invanz, monitor CBC Exam Data for Last 24 hours Vital signs and Labs for Last 24 Hours: Temp Pulse Resp BP Pulse Ox O2 Del Method O2 Flow Rate 98.2 F 86 18 158/90 H 96 Room Air 97 09/06/23 08:00 09/06/23 08:00 09/06/23 08:00 09/06/23 09:06 09/06/23 08:00 09/06/23 08:00 09/02/23 08:58 I & O for Last 24 hours: Intake & Output 09/03/23 09/04/23 09/05/23 09/06/23 23:59 23:59 23:59 23:59 Intake Total 2170 / 3270 2180 / 3130 2806 / 3786 1080 / 1080 Output Total 0 / 0 0 / 0 0 / 0 0 / 0 Balance 2170 / 3270 2180 / 3130 2806 / 3786 1080 / 1080 Weight 112.548 kg 110.132 kg 111.357 kg 108.908 kg Microbiology Reports for the Last 24 Hours: Microbiology 09/02/23 03:10 Blood Blood Culture - Preliminary 09/02/23 04:05 Blood Blood Culture - Preliminary 09/02/23 03:05 Urine,Clean Catch Urine Culture - Final Constitutional Constitutional: no acute distress *Routine HEENT Exam Head: Present normocephalic Eye: Present EOMI and PERRL ENT: Present mucous membranes moist *Routine Neck Exam Neck: Present supple; Absent lymphadenopathy *Routine Respiratory Exam Respiratory: Present CTA bilaterally *Routine Cardiovascular Exam Cardiovascular: Present RRR *Routine Abdominal Exam Abdominal: Present soft and normoactive bowel sounds; Absent tenderness *Routine Extremities Exam Extremities: Absent cyanosis, clubbing or edema *Routine Skin Exam Skin: Present warm; Absent rash *Routine Neurological Exam Neurological: Present alert and oriented X3 Results Data Completed and Pending Labs on day of discharge: Preliminary micro results at discharge 09/02/23 03:10 Blood Culture - Preliminary Blood 09/02/23 04:05 Blood Culture - Preliminary Blood DS: Diagnosis Discharge Diagnosis (1) Abdominal pain: Status: Acute Code(s): R10.9 - Unspecified abdominal pain Qualifiers: Abdominal location: right lower quadrant Qualified Code(s): R10.31 - Right lower quadrant pain (2) Diverticulitis: Status: Acute Code(s): K57.92 - Diverticulitis of intestine, part unspecified, without perforation or abscess without bleeding (3) Pyelonephritis: Status: Acute Code(s): N12 - Tubulo-interstitial nephritis, not specified as acute or chronic (4) Lesion of liver greater than 1 cm in diameter: Status: Acute Code(s): K76.9 - Liver disease, unspecified (5) Axillary adenopathy: Status: Acute Code(s): R59.0 - Localized enlarged lymph nodes Meds Home Medications and Allergies Home Medications Medication Instructions Recorded Confirmed Type hydrochlorothiazide 25 mg tablet 25 mg PO DAILY High Blood Pressure 09/02/23 09/02/23 History hydroxyzine HCl 25 mg tablet 25 mg PO TIDP PRN Anxiety 09/02/23 09/02/23 History paroxetine HCl 40 mg tablet 40 mg PO DAILY Anxiety 09/02/23 09/02/23 History ciprofloxacin HCl 500 mg tablet 500 mg PO Q12H 7 days #14 tabs 09/06/23 Rx metronidazole 500 mg tablet 500 mg PO Q8H 7 days #21 tabs 09/06/23 Rx New Prescriptions to Start Prescriptions: ciprofloxacin HCl Marbin,Irfan metronidazole Marbin,Irfan Allergies Allergy/AdvReac Type Severity Reaction Status Date / Time Penicillins Allergy Severe Hives Verified 06/22/23 20:51 gatifloxacin [From TEQUIN] Allergy Mild Verified 06/22/23 20:51 ketorolac [From TORADOL] Allergy Mild Verified 06/22/23 20:51 aztreonam [AZTREONAM] Allergy Unknown NA-NAUSEA/V Verified 06/22/23 20:51 OMITING cefaclor [CEFACLOR] Allergy Unknown Verified 06/22/23 20:51 codeine [CODEINE] Allergy Unknown BLEEDING Verified 06/22/23 20:51 OF EYES AND NOSE doxycycline [DOXYCYCLINE] Allergy Unknown Verified 06/22/23 20:51 midazolam [From VERSED] Allergy Unknown Verified 06/22/23 20:51 ondansetron Allergy Unknown Verified 06/22/23 20:51 [From ZOFRAN ( HYDROCHLORIDE)] sulfamethoxazole Allergy Unknown Verified 06/22/23 20:51 [From BACTRIM] trimethoprim [From BACTRIM] Allergy Unknown Verified 06/22/23 20:51 ibuprofen Allergy Verified 06/22/23 20:51 tramadol Allergy Verified 06/22/23 20:51 Discharge Plan Disposition Patient Disposition: Home, Self-Care Condition: Good Discharge Order Discharge Orders: Discharge Order (Routine); Ordered 09/06/23 Ordered By: Jacinda Zazueta Follow up Plan Follow up with: Jarvis Bob MD [Staff Physician] - 2 weeks Prescriptions/Medication Reconciliation: New metronidazole 500 mg tablet 500 mg PO Q8H 7 Days Qty: 21 0RF ciprofloxacin HCl 500 mg tablet 500 mg PO Q12H 7 Days Qty: 14 0RF Continued hydroxyzine HCl 25 mg Tablet 25 mg PO TIDP PRN (Reason: Anxiety) hydrochlorothiazide 25 mg Tablet 25 mg PO DAILY paroxetine HCl 40 mg Tablet 40 mg PO DAILY Problem Reconciliation Problems Reviewed?: Yes Patient Discharge Instructions ACTIVITY: Ambulate as tolerated DIET: continue same diet Patient Instructions: Eating a Diet Rich in Fruits and Vegetables, DI for Kidney Infection, DI for Diverticulitis, DI for Urinary Tract Infection (UTI), Eat Well, Exercise Well, Be Well: Dietary and Fitness Guidelines, DI for Implanted Venous Access Port Providers Primary Care Provider: Provider,Referral Admit Provider: Jacinda Zazueta Attending Provider: Jacinda Zazueta
--- NOTE | 2023-09-06 12:48 | PC.NURSE ---
Rounded on patient with MD. She reported feeling better and requested to be DC'd. All questions answered by MD, pt reported no concerns at this time.
--- NOTE | 2023-09-08 14:02 | CARE MANAGER ---
Attempted to contact patient x 2 related to hospital discharge no VM option. EVE Alston
== END 2023-09-06 13:17 | disposition home or self-care (01) | DRG 392 ==
LOC: ER 03:02 → 2ND 05:37
PROVIDERS: Nurse Practitioner Family; Admitting Provider Internal Medicine; Emergency Provider Emergency Medicine; Visit Provider Internal Medicine
DX: K57.92 Diverticulitis of intestine, part unspecified, without perforation or abscess without bleeding (principal); Z68.41 Body mass index [BMI] 40.0-44.9, adult; N10 Acute pyelonephritis; K76.9 Liver disease, unspecified; F41.9 Anxiety disorder, unspecified; E66.01 Morbid (severe) obesity due to excess calories; Z87.442 Personal history of urinary calculi
CPT/HCPCS: 36415; 71045; 71275; 74176; 74177; 80048; 80053; 80061; 81001; 84145; 84484; 84703; 85025; 87040; 87086; 87636; 93005; 99285; J0696; J1335; J3490; Q9967

== ENCOUNTER 2023-10-29 06:14 | Emergency (ER) | payer OTHER, SELFPAY ==
[2023-10-29 06:18] VITALS: BP 154/108; PULSE 113; RESP 18; TEMP 36.9; O2SAT 99; BMI 45.5
--- NOTE | 2023-10-29 06:31 | CT_ITS ---
FINAL REPORT TECHNIQUE: Axial images through the abdomen and pelvis were performed without contrast. This study was performed with techniques to keep radiation doses as low as reasonably achievable, (ALARA). Individualized dose reduction techniques using automated exposure control or adjustment of mA and/or kV according to the patient's size were employed. CLINICAL HISTORY: R flank pain, h/o kidney stone COMPARISON: 09/04/2023 FINDINGS: ABDOMEN: There is mild scarring in the lung bases. Stable nodule in the right lung base measures 3 mm. The heart size is normal. Limited images of the liver are unremarkable. Patient is status post cholecystectomy. The spleen is normal. No adrenal mass is identified. The aorta is normal in caliber. There is no significant free fluid or adenopathy. There is a less than 3 mm nonobstructing right renal stone. There is a 4 mm nonobstructing left renal stone. There is no hydronephrosis. PELVIS: The appendix is not identified. No ureteral stones identified. The patient is status post hysterectomy. The urinary bladder is unremarkable. There is no significant free fluid or adenopathy. IMPRESSION: Bilateral nephrolithiasis. Reviewed, Interpreted and Dictated by Nicholas Escobedo III, MD Transcribed by Jen Gaytan Authenticated and [facility]
--- NOTE | 2023-10-29 06:31 | ED_ITS ---
Discharge Plan Disposition Patient Disposition: Home, Self-Care Condition: Good Prescriptions Prescriptions: No Action hydroxyzine HCl 25 mg Tablet 25 mg PO TIDP PRN (Reason: Anxiety) hydrochlorothiazide 25 mg Tablet 25 mg PO DAILY paroxetine HCl 40 mg Tablet 40 mg PO DAILY metronidazole 500 mg tablet 500 mg PO Q8H 7 Days Qty: 21 0RF ciprofloxacin HCl 500 mg tablet 500 mg PO Q12H 7 Days Qty: 14 0RF Referrals Follow up/Referrals: Provider,Referral, MD [Primary Care Provider] - See instructions Activity Restrictions/Add. Instructions Additional Instructions/Restrictions: You were evaluated in the ER. You are appropriate for discharge at this time. Continue taking all home medications as previously prescribed. Please make an appointment to follow-up with your primary care physician in the next 2-3 days. Return to the ER with new, worsening, or otherwise concerning symptoms. Clinical Impressions Clinical Impression: Acute flank pain Discharge ED Provider: Xuan Martínez General Adult HPI <Xuan Martínez DO - Last Filed: 10/29/23 06:35> General Chief complaint: Urogenital-Female Time Seen by Provider: 10/29/23 06:22 Mode of Arrival: Ambulatory Source of Information: Patient Limitations: No Limitations Description of Symptoms (Recalled from ER Triage Doc. by RN): Patient c/o right flank pain History of Present Illness HPI narrative: This patient is a 38-year-old female with a history of obesity, hypertension, and prior kidney stones presenting to the emergency department for evaluation with concern for atraumatic right flank pain. Patient reports that started around 10 PM last night while she was at work. She states that it is not positional, and nothing seems to make it better or worse. She cannot get comfortable. She denies any known trauma or injuries. She does note that she has had suprapubic pressure and urinary frequency. No fevers, chills, nausea, vomiting, or other concerns. She has otherwise been well. She notes that the pain feels the same as prior kidney stones. Related Data Home Medications Medication Instructions Recorded Confirmed hydrochlorothiazide 25 mg tablet 25 mg PO DAILY High Blood Pressure 09/02/23 09/02/23 hydroxyzine HCl 25 mg tablet 25 mg PO TIDP PRN Anxiety 09/02/23 09/02/23 paroxetine HCl 40 mg tablet 40 mg PO DAILY Anxiety 09/02/23 09/02/23 Previous Rx's Medication Instructions Recorded ciprofloxacin HCl 500 mg tablet 500 mg PO Q12H 7 days #14 tabs 09/06/23 metronidazole 500 mg tablet 500 mg PO Q8H 7 days #21 tabs 09/06/23 Allergies Allergy/AdvReac Type Severity Reaction Status Date / Time Penicillins Allergy Severe Hives Verified 06/22/23 20:51 gatifloxacin [From TEQUIN] Allergy Mild Verified 06/22/23 20:51 ketorolac [From TORADOL] Allergy Mild Verified 06/22/23 20:51 aztreonam [AZTREONAM] Allergy Unknown NA-NAUSEA/V Verified 06/22/23 20:51 OMITING cefaclor [CEFACLOR] Allergy Unknown Verified 06/22/23 20:51 codeine [CODEINE] Allergy Unknown BLEEDING Verified 06/22/23 20:51 OF EYES AND NOSE doxycycline [DOXYCYCLINE] Allergy Unknown Verified 06/22/23 20:51 midazolam [From VERSED] Allergy Unknown Verified 06/22/23 20:51 ondansetron Allergy Unknown Verified 06/22/23 20:51 [From ZOFRAN ( HYDROCHLORIDE)] sulfamethoxazole Allergy Unknown Verified 06/22/23 20:51 [From BACTRIM] trimethoprim [From BACTRIM] Allergy Unknown Verified 06/22/23 20:51 ibuprofen Allergy Verified 06/22/23 20:51 tramadol Allergy Verified 06/22/23 20:51 [facility] <Xuan Martínez DO - Last Filed: 10/29/23 06:35> [facility] Disclaimer: The information contained in this section may have been updated after the patient was seen, as this information can be updated by other users. 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 Abdominal pain Abscess after procedure Achilles tendinitis Ankle pain, left Anxiety Axillary adenopathy Bronchitis Bronchitis Bruise CAP (community acquired pneumonia) Cast discomfort Cellulitis Cellulitis of breast Chest pain Chews tobacco Chronic pain Class 3 obesity Complex cyst of right ovary Complicated UTI (urinary tract infection) Contusion of coccyx Cough COVID-19 virus infection Cystitis Dehiscence of closure of skin Dental abscess Diarrhea Diverticulitis Elevated serum hCG in female, not Encounter for laboratory testing for COVID-19 virus Epigastric pain Exacerbation of reactive airway disease Flank pain Flank pain, acute Flu syndrome Foot sprain Fracture of medial malleolus, right, closed Hydronephrosis Hydronephrosis with urinary obstruction due to ureteral calculus Hypertension Hypertension Hypokalemia Hypokalemia Kidney stone on left side Left flank pain Left knee pain Left ureteral calculus Leg pain Lesion of liver greater than 1 cm in diameter Morbid obesity with BMI of 40.0-44.9, adult Nausea and vomiting Nephrolithiasis Obesity (BMI 35.0-39.9 without comorbidity) Obstructive uropathy Ovarian cyst Pain and swelling of left ankle Pain and swelling of right ankle Pancreatitis Pneumonia Poison eric dermatitis Puncture wound of hand, left Pyelonephritis Pyelonephritis Pyelonephritis Reactive airway disease with wheezing Recurrent left lower quadrant abdominal pain Renal colic Renal colic on left side Renal colic on right side Renal insufficiency Right flank pain Sciatica Sepsis Sepsis Kurtz splints Sinusitis SIRS (systemic inflammatory response syndrome) Surgical wound infection Tibia/fibula fracture Tight cast TMJ arthralgia Ureteral calculus Ureteral calculus, right Ureteral stent occlusion Urinary tract infection Urolithiasis Vomiting and diarrhea Wound dehiscence, surgical Yeast dermatitis Surgical History Fracture of ankle, lateral malleolus, left, closed Fracture of tibial shaft, left, closed S/P unilateral salpingo-oophorectomy S/P ureteral stent placement Status post cystoscopy with ureteral stent placement 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 current occupational exposures/hazards: No caffeine: No <Xuan Martínez DO - Last Filed: 10/29/23 06:35> ROS Obtained: Yes All systems reviewed & no additional complaints except as doc umented Physical Exam <Xuan Martínez DO - Last Filed: 10/29/23 06:35> General General appearance: alert, in no apparent distress and obese Head Head exam: atraumatic and normocephalic Eye Eye exam: Present normal appearance, PERRL and EOMI ENT ENT exam: Present normal exam, normal oropharynx, mucous membranes moist and normal external ear exam Neck Neck exam: Present normal inspection, full ROM and trachea midline; Absent tenderness Chest Chest inspection: Present normal inspection and symmetric chest wall rise; Absent tenderness Respiratory Respiratory exam: Present normal lung sounds bilaterally; Absent respiratory distress, wheezes, stridor or accessory muscle use Cardiovascular Cardiovascular exam: Present regular rate and normal rhythm Abdominal Exam Abdominal exam: Present soft; Absent distention, tenderness or guarding Extremities Exam Extremities exam: Present normal inspection, full ROM and normal capillary refill; Absent tenderness or edema Back Exam Back exam: Present full ROM, tenderness (Right-sided lumbar paraspinal muscle), CVA tenderness (R) and paraspinal tenderness Neurological Exam Neurological exam: Present alert, oriented X3, CN II-XII intact and normal gait; Absent motor sensory deficit Psychiatric Psychiatric exam: Present normal affect and normal mood Skin Skin exam: Present warm and dry Medical Decision Making <Xuan Martínez, DO - Last Filed: 10/29/23 06:35> Medical Records Medical records reviewed: Yes I reviewed the patient's medical records. Olu Inquiry Pt receiving controlled substance: No Vital Signs: 10/29/23 06:18 10/29/23 08:48 Temperature 98.5 F Temperature Source Oral Pulse Rate 95 H Pulse Rate [Radial] 113 H Respiratory Rate 18 Blood Pressure 145/85 H Blood Pressure [Right Arm] 154/108 H Blood Pressure Mean [Right Arm] 123 Blood Pressure Source [Right Arm] Automatic Cuff Blood Pressure Position [Right Arm] Sitting 02 Sat by Pulse Oximetry 99 96 Oxygen Delivery Method Room Air Nasal Cannula Lab Data Lab results reviewed: Yes I reviewed the patient's lab results. Lab Results 10/29/23 06:30: Urine Color Yellow, Urine Appearance Clear, Urine pH 7.0, Ur Specific [place] 1.010, Urine Protein Negative, Urine Glucose (UA) Negative, Urine Ketones Negative, Urine Blood Trace-i, Urine Nitrate Negative, Urine Bilirubin Negative, Urine Urobilinogen 0.2, Ur Leukocyte Esterase Trace, Urine RBC Occasional, Urine WBC 3-5, Ur Squamous Epith Cells 10-20, Urine Bacteria None 10/29/23 06:59: Sodium 139, Potassium 3.4 L, Chloride 107, Carbon Dioxide 33 H, Anion Gap 2.4 L, BUN 16, Creatinine 0.90, Estimated Creat Clear 67, Estimated GFR 70, Est GFR ( Amer) 85, Glucose 119 H, Calcium 8.2 L, Total Bilirubin 0.4, AST 36, ALT 30, Alkaline Phosphatase 88, Total Protein 6.9, Albumin 3.6, Globulin 3.3 H, Albumin/Globulin Ratio 1.1 10/29/23 06:59 Orders (Tests/Meds): ED MEDICATIONS Discontinued Medications Generic Name Dose Route Start Last Admin Trade Name Geeq PRN Reason Stop Dose Admin Acetaminophen 1,000 mg 10/29/23 06:30 10/29/23 07:02 Acetaminophen 500mg Tab PO 10/29/23 06:31 Not Given ONCE ONE Lactated Ringer's 1,000 mls @ 999 mls/hr 10/29/23 06:30 10/29/23 07:27 Lactated Ringer's 1000 Ml Bag IV 10/29/23 07:30 999 mls/hr .Q1H1M ONE Administration ORDERS Category Date Time Status CT abdomen pelvis wo con Stat Cat Scan 10/29/23 06:31 Completed Complete Blood Count Auto Diff Stat Lab 10/29/23 06:59 Received Comprehensive Metabolic Panel Stat Lab 10/29/23 06:59 Completed Urinalysis and Microscopic Stat Lab 10/29/23 06:30 Completed Medical Decision Narrative: In summary, this patient is a 38-year-old female presenting to the Emergency Department for evaluation of atraumatic right flank pain. Differential diagnoses considered include but are not limited to ureterolithiasis, pyelonephritis, musculoskeletal strain/sprain. Ruling out the most morbid conditions drove assessment. It should be noted patient's history includes hypertension and obesity which are not at goal therapy. This complicates all aspects of care by increasing patient's risk for morbidity. On exam, the patient is nontoxic-appearing. She is mildly hypertensive and tachycardic, but otherwise vitals are reassuring. She does have right CVA tenderness as well as right paraspinal muscular tenderness. workup included CBC, CMP, urinalysis, and CT abdomen pelvis without IV contrast. She has intolerance to NSAIDs, so she was given oral Tylenol and a bolus of IV fluids for symptomatic improvement. Patient care signed out to the oncoming provider, Dr. Colón, pending results and disposition. <Scot Colón MD - Last Filed: 10/29/23 09:01> Vital Signs: 10/29/23 06:18 10/29/23 08:48 Temperature 98.5 F Temperature Source Oral Pulse Rate 95 H Pulse Rate [Radial] 113 H Respiratory Rate 18 Blood Pressure 145/85 H Blood Pressure [Right Arm] 154/108 H Blood Pressure Mean [Right Arm] 123 Blood Pressure Source [Right Arm] Automatic Cuff Blood Pressure Position [Right Arm] Sitting 02 Sat by Pulse Oximetry 99 96 Oxygen Delivery Method Room Air Nasal Cannula Lab Data Lab Results 10/29/23 06:30: Urine Color Yellow, Urine Appearance Clear, Urine pH 7.0, Ur Specific [place] 1.010, Urine Protein Negative, Urine Glucose (UA) Negative, Urine Ketones Negative, Urine Blood Trace-i, Urine Nitrate Negative, Urine Bilirubin Negative, Urine Urobilinogen 0.2, Ur Leukocyte Esterase Trace, Urine RBC Occasional, Urine WBC 3-5, Ur Squamous Epith Cells 10-20, Urine Bacteria None 10/29/23 06:59: Sodium 139, Potassium 3.4 L, Chloride 107, Carbon Dioxide 33 H, Anion Gap 2.4 L, BUN 16, Creatinine 0.90, Estimated Creat Clear 67, Estimated GFR 70, Est GFR ( Amer) 85, Glucose 119 H, Calcium 8.2 L, Total Bilirubin 0.4, AST 36, ALT 30, Alkaline Phosphatase 88, Total Protein 6.9, Albumin 3.6, Globulin 3.3 H, Albumin/Globulin Ratio 1.1 Orders (Tests/Meds): ED MEDICATIONS Discontinued Medications Generic Name Dose Route Start Last Admin Trade Name Freq PRN Reason Stop Dose Admin Acetaminophen 1,000 mg 10/29/23 06:30 10/29/23 07:02 Acetaminophen 500mg Tab PO 10/29/23 06:31 Not Given ONCE ONE Lactated Ringer's 1,000 mls @ 999 mls/hr 10/29/23 06:30 10/29/23 07:27 Lactated Ringer's 1000 Ml Bag IV 10/29/23 07:30 999 mls/hr .Q1H1M ONE Administration ORDERS Category Date Time Status CT abdomen pelvis wo con Stat Cat Scan 10/29/23 06:31 Completed Complete Blood Count Auto Diff Stat Lab 10/29/23 06:59 Received Comprehensive Metabolic Panel Stat Lab 10/29/23 06:59 Completed Urinalysis and Microscopic Stat Lab 10/29/23 06:30 Completed Medical Decision Narrative: In summary, this patient is a 38-year-old female presenting to the Emergency Department for evaluation of atraumatic right flank pain. Differential diagnoses considered include but are not limited to ureterolithiasis, pyelonephritis, musculoskeletal strain/sprain. Ruling out the most morbid conditions drove assessment. It should be noted patient's history includes hypertension and obesity which are not at goal therapy. This complicates all aspects of care by increasing patient's risk for morbidity. On exam, the patient is nontoxic-appearing. She is mildly hypertensive and tachycardic, but otherwise vitals are reassuring. She does have right CVA tenderness as well as right paraspinal muscular tenderness. workup included CBC, CMP, urinalysis, and CT abdomen pelvis without IV contrast. She has intolerance to NSAIDs, so she was given oral Tylenol and a bolus of IV fluids for symptomatic improvement. Patient care signed out to the oncoming provider, Dr. Colón, pending results and disposition. Colón: Upon my assumption of care patient is hemodynamically stable. I agree with prim na providers assessment and plan to this point. Urinalysis was reviewed and has trace blood, it was a dirty catch contaminated with squamous cells with only a few white cells, no findings of infection. Trace hypokalemia, no findings of kidney dysfunction present on CMP. I personally interpreted CT abdomen pelvis without IV contrast and appreciate intrarenal left nephrolithiasis, and punctate intrarenal right nephrolithiasis, I do not appreciate any ureterolithiasis, hydronephrosis, stranding, or other obvious cause of patient's complaint at this time. See radiology read for final interpretation. Patient had declined to receive the oral Tylenol that was offered as she had taken it previously this morning. On reevaluation patient continues to be stable, she has tolerated oral intake, is resting comfortably and actually fell asleep in the ER but is easily arousable, she is appropriate for discharge at this time. Patient was given instructions on symptomatic management, follow up instructions, and return precautions for the emergency department. Patient indicated understanding and was discharged in stable condition. Critical Care <Xuan Martínez, DO - Last Filed: 10/29/23 06:35> Critical Care Time Critical Care Time: No
--- NOTE | 2023-10-29 06:31 | PC.NURSE ---
urine collected and sent to lab
[2023-10-29 06:36] LABS: Microscopic, Urine URINE MICROSCOPIC (MICROSCOPIC)
[2023-10-29 06:37] LABS: Appearance,Urine CLEAR (Clear); Bilirubin,Urine Negative (Negative); Blood, Urine TRACE-I (Negative); Color,Urine YELLOW (Yellow); Glucose,Urine (UA) Negative (Negative); Ketones,Urine Negative (Negative); Leukocyte Esterase,Urine TRACE (Negative); Nitrate,Urine Negative (Negative); Protein,Urine Negative (Negative); Urobilinogen,Urine 0.2 EU/dl (0.2)
[2023-10-29 06:53] LABS: RBC,Urine Occasional #/hpf (0-3)
--- NOTE | 2023-10-29 07:06 | PC.NURSE ---
pt arrived back to room from ct
[2023-10-29 07:27] LABS: Chloride 107 mmol/L (98-107); Potassium 3.4 mmoL/L (3.5-5.1); Sodium 139 mmol/L (136-145)
[2023-10-29] MEDS: LACTATED RINGERS 1000ML 1,000 ML 999 ML IV (07:27)
[2023-10-29 07:30] LABS: Alanine Aminotransferase 30 U/L (12-78); Albumin Level 3.6 g/dl (3.5-5.0); Albumin/Globulin Ratio 1.1 (1.1-1.8); Alkaline Phosphatase 88 U/L (38-126); Anion Gap 2.4 mEq/L (5-15); Aspartate Amino Transferase 36 U/L (14-36); Bilirubin,Total 0.4 mg/dl (0.2-1.3); Blood Urea Nitrogen 16 mg/dl (7-17); Calcium 8.2 mg/dl (8.4-10.2); Carbon Dioxide 33 mmol/L (22.0-30.0); Creatinine Clearance Estimated 67 mL/min (50-200); Estimated Glomerular Filt Rate 70 ml/min (>60); GFR (African American) 85 ML/MIN (>60); Globulin 3.3 g/dL (1.3-3.2); Glucose 119 mg/dl (74-100); Total Protein,Serum 6.9 g/dl (6.3-8.2)
--- NOTE | 2023-10-29 07:40 | PC.NURSE ---
rounded on pt states she was fine no needs,call light at bs
[2023-10-29 08:48] VITALS: BP 145/85; PULSE 95; O2SAT 96
--- NOTE | 2023-10-29 08:48 | PC.NURSE ---
madhavi rounded on pt no needs at this time,call light at bs
[2023-10-29 09:05] LABS: Basophils % 0.2 % (0.1-2.0); Eosinophils # 0.3 K/mm3 (0.0-0.4); Eosinophils % 2.6 % (0.1-12.0); Hematocrit 39.3 % (37.0-47.0); Hemoglobin 13.3 g/dL (12.2-16.2); Lymphocytes # 1.9 K/mm3 (0.7-4.5); Lymphocytes % 16.7 % (10-50); Mean Corpuscular HGB Conc 33.8 g/dL (31.8-35.4); Mean Corpuscular Hemoglobin 29.8 pg (27.0-31.2); Mean Corpuscular Volume 88.2 fl (81-99); Mean Platelet Volume 8.7 fl (7.4-10.4); Monocytes # 0.6 K/mm3 (0.1-1.0); Monocytes % 5.7 % (1.7-9.3); Neutrophils # 8.3 K/mm3 (1.8-7.8); Neutrophils % 74.8 % (37.0-80.0); Platelet Count 302 K/mm3 (142-424); Red Blood Count 4.46 M/mm3 (4.20-5.40); White Blood Count 11.1 K/mm3 (4.8-10.8)
--- NOTE | 2023-10-29 09:05 | PC.NURSE ---
contacted lab about cbc results, was on analyzer but it is not recognizing the bar code, should be done and resulted in 2 minutes
[2023-10-29 09:09] VITALS: BP 145/85; PULSE 95; RESP 18; TEMP 36.9; O2SAT 96
== END 2023-10-29 09:09 | disposition home or self-care (01) ==
PROVIDERS: Emergency Provider Emergency Medicine
DX: R10.31 Right lower quadrant pain (principal); M54.59 Other low back pain; I10 Essential (primary) hypertension; E66.01 Morbid (severe) obesity due to excess calories
CPT/HCPCS: 74176; 80053; 81001; 85025; 96360; 99284; J1642

== ENCOUNTER 2024-02-28 16:01 | Emergency (ER) | payer OTHER, SELFPAY ==
[2024-02-28 16:03] VITALS: BP 175/114; PULSE 82; RESP 20; TEMP 36.7; O2SAT 100; BMI 43.9
--- NOTE | 2024-02-28 16:20 | CT_ITS ---
PROCEDURE INFORMATION: Exam: CT Abdomen And Pelvis Without Contrast Exam date and time: 02/28/2024 4:43 PM Age: 38 years old Clinical indication: Abdominal pain; Additional info: Fp hematuria, history of stones needing lithotrips TECHNIQUE: Imaging protocol: Computed tomography of the abdomen and pelvis without contrast. Radiation optimization: All CT scans at this facility use at least one of these dose optimization techniques: automated exposure control; mA and/or kV adjustment per patient size (includes targeted exams where dose is matched to clinical indication); or iterative reconstruction. COMPARISON: CT ABDOMEN PELVIS WO CON 10/29/2023 7:01 AM FINDINGS: Liver: Normal. No mass. Gallbladder and bile ducts: Gallbladder is surgically absent. Pancreas: Normal. No ductal dilation. Spleen: Normal. No splenomegaly. Adrenal glands: Normal. No mass. Kidneys and ureters: Very small stone (approximately 2 mm) in the proximal left ureter producing mild left hydronephrosis. Small caliceal stones noted in both kidneys. Mild left perinephric and periureteral fatty stranding. Stomach and bowel: Unremarkable. No obstruction. No mucosal thickening. Appendix: No evidence of appendicitis. Intraperitoneal space: Unremarkable. No free air. No significant fluid collection. Vasculature: Unremarkable. No abdominal aortic aneurysm. Lymph nodes: Unremarkable. No enlarged lymph nodes. Urinary bladder: Unremarkable as visualized. Reproductive: Uterus is surgically absent. No adnexal abnormality. Bones/joints: Moderate degenerative disc changes of the lumbosacral junction. No vertebral body compression or acute fracture. Soft tissues: Unremarkable. IMPRESSION: 2 mm proximal left ureter stone with mild hydronephrosis
[2024-02-28 16:27] LABS: Microscopic, Urine URINE MICROSCOPIC (MICROSCOPIC)
--- NOTE | 2024-02-28 16:29 | PC.NURSE ---
Lab aware of urine preg test add on
--- NOTE | 2024-02-28 16:31 | HMH.EDGENADL ---
Discharge Plan Disposition Patient Disposition: Home, Self-Care Prescriptions Prescriptions: New tamsulosin [Flomax] 0.4 mg capsule 0.4 mg PO DAILY Qty: 7 0RF cefdinir 300 mg capsule 300 mg PO BID 7 Days Qty: 14 0RF oxycodone 5 mg tablet 5 mg PO Q6H PRN (Reason: pain) Qty: 10 0RF ondansetron 4 mg tablet,disintegrating 4 mg PO Q6H PRN (Reason: nausea and vomiting) Qty: 10 0RF No Action hydroxyzine HCl 25 mg Tablet 25 mg PO TIDP PRN (Reason: Anxiety) hydrochlorothiazide 25 mg Tablet 25 mg PO DAILY paroxetine HCl 40 mg Tablet 40 mg PO DAILY metronidazole 500 mg tablet 500 mg PO Q8H 7 Days Qty: 21 0RF ciprofloxacin HCl 500 mg tablet 500 mg PO Q12H 7 Days Qty: 14 0RF Referrals Follow up/Referrals: Provider,Referral, MD [Primary Care Provider] - See instructions Activity Restrictions/Add. Instructions Additional Instructions/Restrictions: Call your family doctor to establish care for this visit to the emergency department and schedule follow-up within 48 hours to ensure improvement. If you have any worsening of your condition or any other concerning signs or symptoms, return to the emergency department or your primary care doctor for further evaluation. Clinical Impressions Clinical Impression: Acute flank pain, Calcium ureterolithiasis Discharge ED Provider: Phoenix Hightower General Adult HPI General Chief complaint: PAIN Stated complaint: pain in left side Time Seen by Provider: 02/28/24 16:09 History of Present Illness HPI narrative: Please note that above description of symptoms, in this electronic medical record under categorization of recalled from ER triage doctor by RN are reflective of an initial nursing assessment, however, is not reflective of my full history and physical exam that was personally taken and clarified. Consequentially, this preceding description of symptoms, which may include the patient's categorized chief complaint in the EMR, do not reflect my personal clinical impression, and the ultimate description of history of present illness and patient stated complaints should be deferred to this section of the note. Unless stated otherwise or congruent with this section of the note, additional signs, symptoms, or incongruence should be interpreted as inaccurate with my clinical impression. Related Data Home Medications Medication Instructions Recorded Confirmed hydrochlorothiazide 25 mg tablet 25 mg PO DAILY High Blood Pressure 09/02/23 09/02/23 hydroxyzine HCl 25 mg tablet 25 mg PO TIDP PRN Anxiety 09/02/23 09/02/23 paroxetine HCl 40 mg tablet 40 mg PO DAILY Anxiety 09/02/23 09/02/23 Previous Rx's Medication Instructions Recorded ciprofloxacin HCl 500 mg tablet 500 mg PO Q12H 7 days #14 tabs 09/06/23 metronidazole 500 mg tablet 500 mg PO Q8H 7 days #21 tabs 09/06/23 cefdinir 300 mg capsule 300 mg PO BID 7 days #14 caps 02/28/24 ondansetron 4 mg disintegrating 4 mg PO Q6H PRN nausea and 02/28/24 tablet vomiting #10 tabs oxycodone 5 mg tablet 5 mg PO Q6H PRN pain #10 tabs 02/28/24 tamsulosin 0.4 mg capsule (Flomax) 0.4 mg PO DAILY #7 caps 02/28/24 Allergies Allergy/AdvReac Type Severity Reaction Status Date / Time Penicillins Allergy Severe Hives Verified 06/22/23 20:51 gatifloxacin [From TEQUIN] Allergy Mild Verified 06/22/23 20:51 ketorolac [From TORADOL] Allergy Mild Verified 06/22/23 20:51 aztreonam [AZTREONAM] Allergy Unknown NA-NAUSEA/V Verified 06/22/23 20:51 OMITING cefaclor [CEFACLOR] Allergy Unknown Verified 06/22/23 20:51 codeine [CODEINE] Allergy Unknown BLEEDING Verified 06/22/23 20:51 OF EYES AND NOSE doxycycline [DOXYCYCLINE] Allergy Unknown Verified 06/22/23 20:51 midazolam [From VERSED] Allergy Unknown Verified 06/22/23 20:51 ondansetron Allergy Unknown Verified 06/22/23 20:51 [From ZOFRAN ( HYDROCHLORIDE)] sulfamethoxazole Allergy Unknown Verified 06/22/23 20:51 [From BACTRIM] trimethoprim [From BACTRIM] Allergy Unknown Verified 06/22/23 20:51 ibuprofen Allergy Verified 06/22/23 20:51 tramadol Allergy Verified 06/22/23 20:51 PFSH PFSH Disclaimer: The information contained in this section may have been updated after the patient was seen, as this information can be updated by other users. 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 Abdominal pain Abscess after procedure Achilles tendinitis Ankle pain, left Anxiety Axillary adenopathy Bronchitis Bronchitis Bruise CAP (community acquired pneumonia) Cast discomfort Cellulitis Cellulitis of breast Chest pain Chews tobacco Chronic pain Class 3 obesity Complex cyst of right ovary Complicated UTI (urinary tract infection) Contusion of coccyx Cough COVID-19 virus infection Cystitis Dehiscence of closure of skin Dental abscess Diarrhea Diverticulitis Elevated serum hCG in female, not Encounter for laboratory testing for COVID-19 virus Epigastric pain Exacerbation of reactive airway disease Flank pain Flank pain, acute Flu syndrome Foot sprain Fracture of medial malleolus, right, closed Hydronephrosis Hydronephrosis with urinary obstruction due to ureteral calculus Hypertension Hypertension Hypokalemia Hypokalemia Kidney stone on left side Left flank pain Left knee pain Left ureteral calculus Leg pain Lesion of liver greater than 1 cm in diameter Morbid obesity with BMI of 40.0-44.9, adult Nausea and vomiting Nephrolithiasis Obesity (BMI 35.0-39.9 without comorbidity) Obstructive uropathy Ovarian cyst Pain and swelling of left ankle Pain and swelling of right ankle Pancreatitis Pneumonia Poison eric dermatitis Puncture wound of hand, left Pyelonephritis Pyelonephritis Pyelonephritis Reactive airway disease with wheezing Recurrent left lower quadrant abdominal pain Renal colic Renal colic on left side Renal colic on right side Renal insufficiency Right flank pain Sciatica Sepsis Sepsis Kurtz splints Sinusitis SIRS (systemic inflammatory response syndrome) Surgical wound infection Tibia/fibula fracture Tight cast TMJ arthralgia Ureteral calculus Ureteral calculus, right Ureteral stent occlusion Urinary tract infection Urolithiasis Vomiting and diarrhea Wound dehiscence, surgical Yeast dermatitis Surgical History Fracture of ankle, lateral malleolus, left, closed Fracture of tibial shaft, left, closed S/P unilateral salpingo-oophorectomy S/P ureteral stent placement Status post cystoscopy with ureteral stent placement 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 Smoking Status: Unknown if ever smoked second hand exposure: No alcohol intake: never counseling provided: none substance use type: denies use current occupational status: disabled Travel in the last 8 weeks: None household members: none housing: house 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 Patient rocking back and forth in chair) and obese Head Head exam: atraumatic and normocephalic Eye Eye exam: Present normal appearance, PERRL and EOMI ENT ENT exam: Present mucous membranes moist Neck Neck exam: Present normal inspection, full ROM and trachea midline Respiratory Respiratory exam: Absent respiratory distress, wheezes, stridor, accessory muscle use or prolonged expiratory phase Cardiovascular Cardiovascular exam: Present normal rhythm and tachycardia Abdominal Exam Abdominal exam: Present soft; Absent distention, tenderness, guarding, rebound or rigidity Extremities Exam Extremities exam: Absent edema Back Exam Back exam: Present CVA tenderness (L); Absent CVA tenderness (R) Neurological Exam Neurological exam: Present alert, oriented X3, CN II-XII intact and normal gait; Absent motor sensory deficit Skin Skin exam: Present warm and dry; Absent diaphoresis or erythema Medical Decision Making Medical Records Medical records reviewed: Yes I reviewed the patient's medical records. Olu Inquiry Pt receiving controlled substance: No Olu was queried for this patient: No Vital Signs: 02/28/24 16:03 02/28/24 17:13 Temperature 98.0 F Temperature Source Oral Pulse Rate 85 Pulse Rate [Right] 82 Respiratory Rate 20 Blood Pressure 184/114 H Blood Pressure [Right Arm] 175/114 H Blood Pressure Mean 137 Blood Pressure Mean [Right Arm] 134 Blood Pressure Source [Right Arm] Automatic Cuff 02 Sat by Pulse Oximetry 100 96 Oxygen Delivery Method Room Air Lab Data Lab Results 02/28/24 16:10: Urine Color Yellow, Urine Appearance Sl cloudy, Urine pH 6.0, Ur Specific Woodruff 1.025, Urine Protein Trace, Urine Glucose (UA) Negative, Urine Ketones Negative, Urine Blood Trace-i, Urine Nitrate Negative, Urine Bilirubin Negative, Urine Urobilinogen 0.2, Ur Leukocyte Esterase 1+ A, Urine RBC 3-5, Urine WBC 20-50, Ur Squamous Epith Cells 5-10, Calcium Oxalate Crystal 1+, Urine Bacteria Trace, Urine Yeast 3+, Urine HCG, Qual Negative Orders (Tests/Meds): ED MEDICATIONS Discontinued Medications Generic Name Dose Route Start Last Admin Trade Name Freq PRN Reason Stop Dose Admin Cefdinir 300 mg 02/28/24 17:40 02/28/24 17:43 Cefdinir 300mg Capsule PO 02/28/24 17:41 300 mg ONCE ONE Administration Ondansetron HCl 4 mg 02/28/24 18:02 02/28/24 18:07 Ondansetron 4mg Odt SL 02/28/24 18:03 4 mg ONCE ONE Administration Oxycodone HCl 5 mg 02/28/24 16:19 02/28/24 16:47 Oxycodone 5mg Immediate Release Tablet PO 02/28/24 16:20 5 mg ONCE ONE Administration ORDERS Category Date Time Status CT abdomen pelvis wo con Stat Cat Scan 02/28/24 16:20 Completed UA [Urinalysis and Microscopic] Stat Lab 02/28/24 16:10 Completed Urine , HCG Qual. Stat Lab 02/28/24 16:10 Completed Urine Culture Stat Micro 02/28/24 16:10 Received Medical Decision Narrative: 38-year-old female history of numerous kidney stones necessitating instrumentation presenting with left flank pain. Patient states it started about 2 days ago, has been getting progressively worse. Is now moderate to severe in intensity. Starts in her left flank, radiates around the outside down into her groin. Associated with nausea and vomiting. No blood in her vomit. States that she has not had dysuria, hematuria, fevers or chills. Has been taking Tylenol due to numerous medication allergies, this does not seem to help very much. States that it feels just like her previous kidney stones, not the worst pain she is ever had, but still not great. It should be noted the patient has numerous medication allergies preventing optimal pain control and complicating current emergency department visit. History was obtained via conversation with patient. On arrival, patient hemodynamically stable, alert, oriented x4, appropriate, GCS 15, moving all extremities spontaneously, pupils equal and reactive to light. Full physical exam performed and significant for uncomfortable appearing 38-year-old female in mild distress secondary to pain. She is rocking back and forth in her chair. Mildly tachycardic. Abdomen is soft, nontender, nondistended without overlying skin changes, but she does have a flank tenderness is reproducible with percussion. Differential includes nephrolithiasis, UTI, pyelonephritis, torsion, diverticulitis, aortic pathology, among others. Patient was given 5 mg oxycodone for symptomatic management and correction of underlying abnormalities. Workup independently interpreted and significant for UA with concern for UTI. CT of the abdomen and pelvis with 6 mm intrarenal stone, but 2 mm downstream stone with mild hydronephrosis upstream. No perirenal inflammation. See radiology read for full review of final results. On reevaluation, patient feeling nauseated. She states that in the past she got Zofran with a medication she was allergic to, so does not think she is allergic to it, willing to try a dose here in the emergency department because Phenergan makes her tired. Zofran ODT was administered and patient was observed for short period of time. Patient was placed in observation beginning at 6 PM in order to give medications, monitor for allergic reaction and determine need for admission versus home-going. The patient was provided Zofran, serial exams while awaiting results. On reevaluation, patient without reaction, able to go home with this for nausea. At this time, I feel patient is appropriate for discharge. Total observation time 30 minutes. Because patient at baseline without signs or symptoms of clinical decompensation, deemed appropriate for discharge. Results were relayed to patient who voiced understanding and were agreeable to outpatient management and follow up. I discussed my clinical impression with patient and answered all questions. At this time, the evidence for any other entities in the differential is insufficient to warrant any further testing or ED observation. This was explained as well. Advisory was given that persistent or worsening symptoms require further evaluation. I confirmed the understanding of this discussion. Net Developer Programmer disclaimer Much of this encounter note is an electronic tutoring manager spoken language to printed text. Electronic tutoring manager of the spoken language may permit errors. Although I have reviewed the note, some errors may still exist. Critical Care Critical Care Time Critical Care Time: No
[2024-02-28 16:34] LABS: Appearance,Urine SL CLOUDY (Clear); Bilirubin,Urine Negative (Negative); Blood, Urine TRACE-I (Negative); Color,Urine YELLOW (Yellow); Glucose,Urine (UA) Negative (Negative); Ketones,Urine Negative (Negative); Leukocyte Esterase,Urine 1+ (Negative); Nitrate,Urine Negative (Negative); Protein,Urine TRACE (Negative); Specific Gravity, Urine 1.025 (1.005-1.030); Urobilinogen,Urine 0.2 EU/dl (0.2)
[2024-02-28 16:35] LABS: Urine Pregnancy, HCG Qual. Negative (Negative)
[2024-02-28] MEDS: OXYCODONE 5MG IMMEDIATE RELEASE TABLET 5 MG PO (16:47)
[2024-02-28 16:51] LABS: Bacteria,Urine Trace /lpf; WBC,Urine 20-50 #/hpf (0-3)
[2024-02-28 16:52] LABS: Calcium Oxalate Crystals,Urine 1+ /lpf
[2024-02-28 16:54] LABS: Yeast,Urine 3+ /lpf
[2024-02-28 17:13] VITALS: BP 184/114; PULSE 85; O2SAT 96
[2024-02-28] MEDS: CEFDINIR 300MG CAPSULE 300 MG PO (17:43)
[2024-02-28] MEDS: ONDANSETRON 4MG ODT 4 MG SL (18:07)
[2024-02-28 18:30] VITALS: BP 180/102; PULSE 75; RESP 16; TEMP 36.9; O2SAT 98
== END 2024-02-28 18:35 | disposition home or self-care (01) ==
PROVIDERS: Emergency Provider Emergency Medicine
DX: N13.0 Hydronephrosis with ureteropelvic junction obstruction (principal); R10.32 Left lower quadrant pain; M54.59 Other low back pain; B96.89 Other specified bacterial agents as the cause of diseases classified elsewhere; R11.2 Nausea with vomiting, unspecified
CPT/HCPCS: 74176; 81001; 81025; 87086; 99284

== ENCOUNTER 2024-05-11 18:13 | Emergency (ER) | payer OTHER, SELFPAY ==
[2024-05-11 18:47] VITALS: BP 188/99; PULSE 98; RESP 20; TEMP 37.1; O2SAT 100; BMI 52.7
--- NOTE | 2024-05-11 18:52 | EXP.UTC ---
Discharge Plan Disposition Patient Disposition: Home, Self-Care Condition: Good Prescriptions Prescriptions: New azithromycin [Zithromax] 250 mg tablet 250 mg PO UD DOSE PK Qty: 6 0RF Rx Instructions: Take two (2) tablets today, then one (1) tablet days #2 thru #5 [id number] [Bromfed DM] 2-30-10 mg/5 mL Syrup 5 ml PO Q6H PRN (Reason: Cough) Qty: 240 0RF ondansetron 4 mg Tablet,Disintegrating 4 mg PO Q8H PRN (Reason: Nausea) Qty: 12 0RF albuterol sulfate [Ventolin HFA] 90 mcg/actuation HFA aerosol inhaler 2 puff inhalation Q6H PRN (Reason: shortness of breath or wheezing) Qty: 6.7 0RF No Action hydroxyzine HCl 25 mg Tablet 25 mg PO TIDP PRN (Reason: Anxiety) hydrochlorothiazide 25 mg Tablet 25 mg PO DAILY paroxetine HCl 40 mg Tablet 40 mg PO DAILY metronidazole 500 mg tablet 500 mg PO Q8H 7 Days Qty: 21 0RF ciprofloxacin HCl 500 mg tablet 500 mg PO Q12H 7 Days Qty: 14 0RF tamsulosin [Flomax] 0.4 mg capsule 0.4 mg PO DAILY Qty: 7 0RF cefdinir 300 mg capsule 300 mg PO BID 7 Days Qty: 14 0RF oxycodone 5 mg tablet 5 mg PO Q6H PRN (Reason: pain) Qty: 10 0RF ondansetron 4 mg tablet,disintegrating 4 mg PO Q6H PRN (Reason: nausea and vomiting) Qty: 10 0RF Referrals Follow up/Referrals: Provider,Referral, MD [Primary Care Provider] - See instructions Clinical Impressions Clinical Impression: Acute viral syndrome, Asthma Stand Alone Forms Stand Alone Forms: Work/School Release Instructions Patient Instructions: Coronavirus Disease 2019, Preventing the Spread of Coronavirus Discharge Instructions Print Language Print Language: Kyrgyz Discharge ED Provider: Stuart Wagner [facility] [place] General Stated complaint: fever,congestion,abdominal pain Mode of Arrival: Ambulatory Source of Information: Patient Limitations: No Limitations Time Seen by Provider: 05/11/24 18:52 Description of Symptoms (Recalled from Triage Doc. by RN): congestion,stomach ache,chills HEENT Symptoms (Recalled from RN notes): Yes Resp Symptoms (Recalled from RN notes): Yes Skin Symptoms (Recalled from RN notes): No MS Symptoms (Recalled from RN notes): No Functional Status (Recalled from RN notes): na Related Data Home Medications ?Medication ?Instructions ?Recorded ?Confirmed hydrochlorothiazide 25 mg tablet 25 mg PO DAILY High Blood Pressure 09/02/23 09/02/23 hydroxyzine HCl 25 mg tablet 25 mg PO TIDP PRN Anxiety 09/02/23 09/02/23 paroxetine HCl 40 mg tablet 40 mg PO DAILY Anxiety 09/02/23 09/02/23 Previous Rx's ?Medication ?Instructions ?Recorded ciprofloxacin HCl 500 mg tablet 500 mg PO Q12H 7 days #14 tabs 09/06/23 metronidazole 500 mg tablet 500 mg PO Q8H 7 days #21 tabs 09/06/23 cefdinir 300 mg capsule 300 mg PO BID 7 days #14 caps 02/28/24 ondansetron 4 mg disintegrating 4 mg PO Q6H PRN nausea and 02/28/24 tablet vomiting #10 tabs oxycodone 5 mg tablet 5 mg PO Q6H PRN pain #10 tabs 02/28/24 tamsulosin 0.4 mg capsule (Flomax) 0.4 mg PO DAILY #7 caps 02/28/24 albuterol sulfate 90 mcg/actuation 2 puff inhalation Q6H PRN 05/11/24 aerosol inhaler (Ventolin HFA) shortness of breath or wheezing #6.7 grams azithromycin 250 mg tablet 250 mg PO UD DOSE PK #6 tabs 05/11/24 (Zithromax) [id number] 5 ml PO Q6H PRN Cough #240 mL 05/11/24 2 mg-30 mg-10 mg/5 mL oral syrup (Bromfed DM) ondansetron 4 mg disintegrating 4 mg PO Q8H PRN Nausea #12 tabs 05/11/24 tablet Allergies Allergy/AdvReac Type Severity Reaction Status Date / Time Penicillins Allergy Severe Hives Verified 06/22/23 20:51 gatifloxacin [From TEQUIN] Allergy Mild Verified 06/22/23 20:51 ketorolac [From TORADOL] Allergy Mild Verified 06/22/23 20:51 aztreonam [AZTREONAM] Allergy Unknown NA-NAUSEA/V Verified 06/22/23 20:51 OMITING cefaclor [CEFACLOR] Allergy Unknown Verified 06/22/23 20:51 codeine [CODEINE] Allergy Unknown BLEEDING Jared
[2024-05-11 18:59] LABS: UTC Influenza A Antigen Negative (Negative); UTC Influenza B Antigen Negative (Negative)
[2024-05-11 19:51] VITALS: BP 188/99; PULSE 98; RESP 20; TEMP 37.1; O2SAT 100
== END 2024-05-11 19:53 | disposition home or self-care (01) ==
PROVIDERS: Emergency Provider Nurse Practitioner Family
DX: J45.909 Unspecified asthma, uncomplicated (principal); R50.9 Fever, unspecified; R05.9 Cough, unspecified
CPT/HCPCS: 87635; 87804; 99212; 99214; G0463

== ENCOUNTER 2024-05-13 16:22 | Emergency (ER) | payer OTHER, SELFPAY ==
[2024-05-13 16:33] LABS: Microscopic, Urine URINE MICROSCOPIC (MICROSCOPIC)
[2024-05-13 16:35] VITALS: BP 186/102; PULSE 101; RESP 16; TEMP 36.6; O2SAT 97; BMI 43.9
[2024-05-13 16:35] LABS: Appearance,Urine SL CLOUDY (Clear); Blood, Urine 2+ (Negative); Color,Urine YELLOW (Yellow); Glucose,Urine (UA) Negative (Negative); Ketones,Urine Negative (Negative); Leukocyte Esterase,Urine 2+ (Negative); Nitrate,Urine Negative (Negative); Protein,Urine 1+ (Negative); Specific Gravity, Urine >= 1.030 (1.005-1.030); Urobilinogen,Urine 0.2 EU/dl (0.2)
[2024-05-13 16:39] LABS: Bilirubin,Urine 1+ (Negative); WBC,Urine 50-100 #/hpf (0-3)
[2024-05-13 16:40] LABS: Bacteria,Urine 3+ /lpf; RBC,Urine 20-50 #/hpf (0-3)
--- NOTE | 2024-05-13 16:44 | CT_ITS ---
PROCEDURE INFORMATION: Exam: CT Abdomen And Pelvis Without Contrast Exam date and time: 05/13/2024 5:09 PM Age: 38 years old Clinical indication: Abdominal pain; Flank; Left; Additional info: Recurrent kidney stones, L flank pain TECHNIQUE: Imaging protocol: Computed tomography of the abdomen and pelvis without contrast. Radiation optimization: All CT scans at this facility use at least one of these dose optimization techniques: automated exposure control; mA and/or kV adjustment per patient size (includes targeted exams where dose is matched to clinical indication); or iterative reconstruction. COMPARISON: CT ABDOMEN PELVIS WO CON 02/28/2024 4:43 PM FINDINGS: Liver: Decreased density throughout the liver compatible with hepatic steatosis. Gallbladder and biliary ducts: Cholecystectomy Pancreas: Pancreas unremarkable Spleen: The spleen is unremarkable. Adrenal glands: Adrenal glands unremarkable. Kidneys and ureters: Punctate nonobstructing calculi lower pole left kidney. 2 mm nonobstructing calculus right renal pelvis. Stomach and bowel: Colonic diverticulosis. No evidence of diverticulitis. Appendix: Appendix unremarkable Intraperitoneal space: Unremarkable. No free air. No significant fluid collection. Vasculature: Unremarkable. No abdominal aortic aneurysm. Lymph nodes: Nonspecific retroperitoneal lymph nodes Urinary bladder: Mild thickening of the bladder wall may reflect incomplete distension. Could not exclude changes of cystitis. Reproductive: Unremarkable as visualized. Bones/joints: Unremarkable. No acute fracture. Soft tissues: Fat filled umbilical hernia IMPRESSION: 1. No evidence of acute abnormality. 2. Punctate nonobstructing calculi lower pole left kidney. 2 mm nonobstructing calculus right renal pelvis. 3. Mild thickening of the bladder wall may reflect incomplete distension. Could not exclude changes of cystitis.
--- NOTE | 2024-05-13 16:47 | [facility].EDGENADL ---
Discharge Plan Disposition Patient Disposition: Home, Self-Care Prescriptions Prescriptions: New cefdinir 300 mg capsule 300 mg PO BID 7 Days Qty: 14 0RF No Action hydroxyzine HCl 25 mg Tablet 25 mg PO TIDP PRN (Reason: Anxiety) hydrochlorothiazide 25 mg Tablet 25 mg PO DAILY paroxetine HCl 40 mg Tablet 40 mg PO DAILY metronidazole 500 mg tablet 500 mg PO Q8H 7 Days Qty: 21 0RF ciprofloxacin HCl 500 mg tablet 500 mg PO Q12H 7 Days Qty: 14 0RF azithromycin [Zithromax] 250 mg tablet 250 mg PO UD DOSE PK Qty: 6 0RF Rx Instructions: Take two (2) tablets today, then one (1) tablet days #2 thru #5 [id number]-[id number] [Bromfed DM] 2-30-10 mg/5 mL Syrup 5 ml PO Q6H PRN (Reason: Cough) Qty: 240 0RF ondansetron 4 mg Tablet,Disintegrating 4 mg PO Q8H PRN (Reason: Nausea) Qty: 12 0RF albuterol sulfate [Ventolin HFA] 90 mcg/actuation HFA aerosol inhaler 2 puff inhalation Q6H PRN (Reason: shortness of breath or wheezing) Qty: 6.7 0RF tamsulosin [Flomax] 0.4 mg capsule 0.4 mg PO DAILY Qty: 7 0RF cefdinir 300 mg capsule 300 mg PO BID 7 Days Qty: 14 0RF oxycodone 5 mg tablet 5 mg PO Q6H PRN (Reason: pain) Qty: 10 0RF ondansetron 4 mg tablet,disintegrating 4 mg PO Q6H PRN (Reason: nausea and vomiting) Qty: 10 0RF Referrals Follow up/Referrals: Provider,Referral, MD [Primary Care Provider] - See instructions Activity Restrictions/Add. Instructions Additional Instructions/Restrictions: At this time it was felt you are safe to be discharged home. If new or worsening symptoms please do not hesitate to return the emergency department. Please take antibiotics as prescribed. Clinical Impressions Clinical Impression: Pyelonephritis Instructions Patient Instructions: DI for Urinary Tract Infection (UTI) Print Language Print Language: Chinese Discharge ED Provider: Chandana Allan General Adult HPI General Chief complaint: Abdominal Pain Stated complaint: Pain left side,pressure,frequency with urination Time Seen by Provider: 05/13/24 16:36 History of Present Illness HPI narrative: Patient is a 38-year-old female with past medical history of recurrent ureterolithiasis some of which requiring intervention who presents to the emergency department for evaluation of left flank pain. Onset was acute, over the last 48 hours, there is associated frequency with urination. She has been dealing with kidney stones since 2007 and the pain feels very similar to her previous kidney stones. There is dysuria, no changes in stooling, no vomiting, no chest pain, no anterior abdominal pain. No other acute complaints at this time. Related Data Home Medications ?Medication ?Instructions ?Recorded ?Confirmed hydrochlorothiazide 25 mg tablet 25 mg PO DAILY High Blood Pressure 09/02/23 09/02/23 hydroxyzine HCl 25 mg tablet 25 mg PO TIDP PRN Anxiety 09/02/23 09/02/23 paroxetine HCl 40 mg tablet 40 mg PO DAILY Anxiety 09/02/23 09/02/23 Previous Rx's ?Medication ?Instructions ?Recorded ciprofloxacin HCl 500 mg tablet 500 mg PO Q12H 7 days #14 tabs 09/06/23 metronidazole 500 mg tablet 500 mg PO Q8H 7 days #21 tabs 09/06/23 cefdinir 300 mg capsule 300 mg PO BID 7 days #14 caps 02/28/24 ondansetron 4 mg disintegrating 4 mg PO Q6H PRN nausea and 02/28/24 tablet vomiting #10 tabs oxycodone 5 mg tablet 5 mg PO Q6H PRN pain #10 tabs 02/28/24 tamsulosin 0.4 mg capsule (Flomax) 0.4 mg PO DAILY #7 caps 02/28/24 albuterol sulfate 90 mcg/actuation 2 puff inhalation Q6H PRN 05/11/24 aerosol inhaler (Ventolin HFA) shortness of breath or wheezing #6.7 grams azithromycin 250 mg tablet 250 mg PO UD DOSE PK #6 tabs 05/11/24 (Zithromax) neohjeujxxxjhpp-loswbacmsbycvas-RS 5 ml PO Q6H PRN Cough #240 mL 05/11/24 2 mg-30 mg-10 mg/5 mL oral syrup (Bromfed DM) ondansetron 4 mg disintegrating 4 mg PO Q8H PRN Nausea #12 tabs 05/11/24 tablet cefdinir 300 mg capsule 300 mg PO BID UTI 7 days #14 caps 05/13/24 Allergies Allergy/AdvReac Type Severity Reaction Status Date / Time Penicillins Allergy Severe Hives Verified 06/22/23 20:51 gatifloxacin [From TEQUIN] Allergy Mild Verified 06/22/23 20:51 ketorolac [From TORADOL] Allergy Mild Verified 06/22/23 20:51 aztreonam [AZTREONAM] Allergy Unknown NA-NAUSEA/V Verified 06/22/23 20:51 OMITING cefaclor [CEFACLOR] Allergy Unknown Verified 06/22/23 20:51 codeine [CODEINE] Allergy Unknown BLEEDING Verified 06/22/23 20:51 OF EYES AND NOSE doxycycline [DOXYCYCLINE] Allergy Unknown Verified 06/22/23 20:51 midazolam [From VERSED] Allergy Unknown Verified 06/22/23 20:51 ondansetron Allergy Unknown Verified 06/22/23 20:51 [From ZOFRAN ( HYDROCHLORIDE)] sulfamethoxazole Allergy Unknown Verified 06/22/23 20:51 [From BACTRIM] trimethoprim [From BACTRIM] Allergy Unknown Verified 06/22/23 20:51 ibuprofen Allergy Verified 06/22/23 20:51 tramadol Allergy Verified 06/22/23 20:51 PFS PFS Disclaimer: The information contained in this section may have been updated after the patient was seen, as this information can be updated by other users. 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 Abdominal pain Abscess after procedure Achilles tendinitis Ankle pain, left Anxiety Axillary adenopathy Bronchitis Bronchitis Bruise CAP (community acquired pneumonia) Cast discomfort Cellulitis Cellulitis of breast Chest pain Chews tobacco Chronic pain Class 3 obesity Complex cyst of right ovary Complicated UTI (urinary tract infection) Contusion of coccyx Cough COVID-19 virus infection Cystitis Dehiscence of closure of skin Dental abscess Diarrhea Diverticulitis Elevated serum hCG in female, not Encounter for laboratory testing for COVID-19 virus Epigastric pain Exacerbation of reactive airway disease Flank pain Flank pain, acute Flu syndrome Foot sprain Fracture of medial malleolus, right, closed Hydronephrosis Hydronephrosis with urinary obstruction due to ureteral calculus Hypertension Hypertension Hypokalemia Hypokalemia Kidney stone on left side Left flank pain Left knee pain Left ureteral calculus Leg pain Lesion of liver greater than 1 cm in diameter Morbid obesity with BMI of 40.0-44.9, adult Nausea and vomiting Nephrolithiasis Obesity (BMI 35.0-39.9 without comorbidity) Obstructive uropathy Ovarian cyst Pain and swelling of left ankle Pain and swelling of right ankle Pancreatitis Pneumonia Poison eric dermatitis Puncture wound of hand, left Pyelonephritis Pyelonephritis Pyelonephritis Reactive airway disease with wheezing Recurrent left lower quadrant abdominal pain Renal colic Renal colic on left side Renal colic on right side Renal insufficiency Right flank pain Sciatica Sepsis Sepsis Kurtz splints Sinusitis SIRS (systemic inflammatory response syndrome) Surgical wound infection Tibia/fibula fracture Tight cast TMJ arthralgia Ureteral calculus Ureteral calculus, right Ureteral stent occlusion Urinary tract infection Urolithiasis Vomiting and diarrhea Wound dehiscence, surgical Yeast dermatitis Surgical History Fracture of ankle, lateral malleolus, left, closed Fracture of tibial shaft, left, closed S/P unilateral salpingo-oophorectomy S/P ureteral stent placement Status post cystoscopy with ureteral stent placement 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 current occupational exposures/hazards: No caffeine: No ROS Obtained: Yes Systems reviewed as appropriate & no additional complaints except as documented Physical Exam General General appearance: alert and in no apparent distress Head Head exam: atraumatic and normocephalic Eye Eye exam: Present PERRL and EOMI ENT ENT exam: Present mucous membranes moist Neck Neck exam: Present normal inspection Chest Chest inspection: Present normal inspection and symmetric chest wall rise Respiratory Respiratory exam: Present normal lung sounds bilaterally; Absent respiratory distress Cardiovascular Cardiovascular exam: Present regular rate and normal rhythm Abdominal Exam Abdominal exam: Present soft and other (Left CVA tenderness); Absent tenderness (No anterior abdominal tenderness), guarding or rebound Extremities Exam Extremities exam: Present normal inspection Neurological Exam Neurological exam: Present alert and CN II-XII intact Psychiatric Psychiatric exam: Present normal affect Skin Skin exam: Present warm and dry Medical Decision Making Olu Inquiry Pt receiving controlled substance: No Vital Signs: 08/31/24 16:35 05/13/24 17:00 Temperature 97.9 F Temperature Source Oral Pulse Rate 97 H Pulse Rate [Left] 101 H Respiratory Rate 16 Blood Pressure 192/107 H Blood Pressure [Right Arm] 186/102 H Blood Pressure Mean [Right Arm] 130 Blood Pressure Source [Right Arm] Automatic Cuff Blood Pressure Position [Right Arm] Sitting 02 Sat by Pulse Oximetry 97 98 Oxygen Delivery Method Room Air Lab Data Lab Results 05/13/24 16:27: Urine Color Yellow, Urine Appearance Sl cloudy, Urine pH 6.0, Ur Specific [place] >= 1.030, Urine Protein 1+ A, Urine Glucose (UA) Negative, Urine Ketones Negative, Urine Blood 2+ A, Urine Nitrate Negative, Urine Bilirubin 1+ A, Urine Urobilinogen 0.2, Ur Leukocyte Esterase 2+ A, Urine RBC 20-50, Urine WBC 50-100, Ur Squamous Epith Cells 10-20, Urine Bacteria 3+, Urine HCG, Qual Negative 05/13/24 16:51: WBC 9.4, RBC 4.49, Hgb 13.3, Hct 40.7, MCV 90.6, MCH 29.6, MCHC 32.7, RDW 14.3, Plt Count 330, MPV 7.8, Neut % (Auto) 70.2, Lymph % (Auto) 19.8, [place] % (Auto) 5.3, Eos % (Auto) 4.3, Baso % (Auto) 0.5, Neut # (Auto) 6.6, Lymph # (Auto) 1.9, [place] # (Auto) 0.5, Eos # (Auto) 0.4, Baso # (Auto) 0.0, Sodium 142, Potassium 3.4 L, Chloride 109 H, Carbon Dioxide 26, Anion Gap 10.4, BUN 18 H, Creatinine 1.00, Estimated GFR 62, Est GFR ( Amer) 75, Glucose 138 H, Lactate 2.2 H, Calcium 8.4, Total Bilirubin 0.4, AST 27, ALT 32, Alkaline Phosphatase 68, Total Protein 6.9, Albumin 3.7, Globulin 3.2, Albumin/Globulin Ratio 1.2, Lipase 282 05/13/24 16:51 05/13/24 16:51 Orders (Tests/Meds): ED MEDICATIONS Generic Name Dose Route Start Last Admin Trade Name Silke PRN Reason Stop Dose Admin Oxycodone HCl 5 mg 05/13/24 18:10 Oxycodone 5mg Immediate Release Tablet PO 05/13/24 18:11 ONCE ONE Discontinued Medications Generic Name Dose Route Start Last Admin Trade Name Silke PRN Reason Stop Dose Admin Acetaminophen 1,000 mg 05/13/24 16:44 05/13/24 17:00 Acetaminophen 1,000mg/100ml Vial IV 05/13/24 16:45 1,000 mg ONCE ONE Administration Lactated Ringer's 1,000 mls @ 999 mls/hr 05/13/24 16:44 05/13/24 17:00 Lactated Ringer's 1000 Ml Bag IV 05/13/24 17:44 999 mls/hr .Q1H1M ONE Administration Ceftriaxone Sodium 1 gm/ 50 mls @ 100 mls/hr 05/13/24 16:50 05/13/24 17:00 Sodium Chloride IV 05/13/24 17:19 100 mls/hr ONCE ONE Administration Morphine Sulfate 4 mg 05/13/24 16:44 05/13/24 17:00 Morphine 4mg/Ml Syringe IV 05/13/24 16:45 4 mg ONCE ONE Administration Ondansetron HCl 4 mg 05/13/24 16:44 05/13/24 17:00 Ondansetron 4mg/2ml Vial IV 05/13/24 16:45 4 mg ONCE ONE Administration ORDERS Category Date Time Status CT abdomen pelvis wo con Stat Cat Scan 05/13/24 16:44 Completed CBC w/Auto Diff [Complete Blood Count Auto Diff] Stat Lab 05/13/24 16:51 Completed CMP [Comprehensive Metabolic Panel] Stat Lab 05/13/24 16:51 Completed Lactic Acid Stat Lab 05/13/24 16:51 Completed Lipase Stat Lab 05/13/24 16:51 Completed UA [Urinalysis and Microscopic] Stat Lab 05/13/24 16:27 Completed Urine , HCG Qual. Stat Lab 05/13/24 16:27 Completed Blood Culture Stat Micro 05/13/24 17:55 Ordered Medical Decision Narrative: In summary patient is a 38-year-old female past medical history described above who presents emergency department for evaluation of left flank pain in setting of recurrent ureterolithiasis. Patient is hemodynamically stable nontoxic-appearing but normal, afebrile. Differential diagnosis includes ureterolithiasis, urinary tract infection, pancreatitis, among others. Workup will be conducted with hematologic labs, CT abdomen pelvis without IV contrast. Initial inventions include crystalloid bolus, IV Tylenol, Zofran, morphine. Unfortunately patient is allergic to Toradol. Initial workup reviewed by me, hematologic labs are nonactionable, no PAUL, no significant leukocytosis, no critical electrolyte abnormality, elevated lipase. Urinalysis is interpreted by me and consistent with overt infection that is nitrite negative although it is contaminated. Given proteinuria patient will be treated for pyelonephritis with 1 g of ceftriaxone at this time. CT imaging shows thickening of the bladder wall, punctate nonobstructing calculi lower pole of the left kidney as well as nonobstructing calculi in the right renal pelvis. Patient should be asymptomatic from this as they are still in the kidney, no other acute abdominal pathologies identified. On repeat evaluation patient was tolerating p.o. bedside had persistent pain for which 1 single dose of additional oral pain control will be given and patient is appropriate for outpatient management at this point will be discharged with a course of cefdinir was given return precautions. Critical Care Critical Care Time Critical Care Time: No
[2024-05-13 16:59] LABS: Urine Pregnancy, HCG Qual. Negative (Negative)
[2024-05-13 17:00] VITALS: BP 192/107; PULSE 97; O2SAT 98
[2024-05-13 17:00] LABS: Basophils % 0.5 % (0.1-2.0); Eosinophils # 0.4 K/mm3 (0.0-0.4); Eosinophils % 4.3 % (0.1-12.0); Hematocrit 40.7 % (37.0-47.0); Hemoglobin 13.3 g/dL (12.2-16.2); Lymphocytes # 1.9 K/mm3 (0.7-4.5); Lymphocytes % 19.8 % (10-50); Mean Corpuscular HGB Conc 32.7 g/dL (31.8-35.4); Mean Corpuscular Hemoglobin 29.6 pg (27.0-31.2); Mean Corpuscular Volume 90.6 fl (81-99); Mean Platelet Volume 7.8 fl (7.4-10.4); Monocytes # 0.5 K/mm3 (0.1-1.0); Monocytes % 5.3 % (1.7-9.3); Neutrophils # 6.6 K/mm3 (1.8-7.8); Neutrophils % 70.2 % (37.0-80.0); Platelet Count 330 K/mm3 (142-424); Red Blood Count 4.49 M/mm3 (4.20-5.40); Red Cell Distribution Width 14.3 % (11.5-17.5); White Blood Count 9.4 K/mm3 (4.8-10.8)
[2024-05-13] MEDS: LACTATED RINGERS 1000ML 1,000 ML 999 ML IV (17:00)
[2024-05-13] MEDS: CEFTRIAXONE 1 GM 1 GM in 0.9 % SODIUM CHLORIDE 50 ML IV (17:00)
[2024-05-13] MEDS: ACETAMINOPHEN 1,000MG/100ML VIAL 1000 MG IV (17:00)
[2024-05-13] MEDS: ONDANSETRON 4MG/2ML VIAL 4 MG IV (17:00)
[2024-05-13] MEDS: MORPHINE 4MG/ML SYRINGE 4 MG IV (17:00)
[2024-05-13 17:08] LABS: Chloride 109 mmol/L (98-107)
[2024-05-13 17:09] LABS: Albumin Level 3.7 g/dl (3.5-5.0); Potassium 3.4 mmoL/L (3.5-5.1); Sodium 142 mmol/L (136-145)
[2024-05-13 17:11] LABS: Blood Urea Nitrogen 18 mg/dl (7-17); Estimated Glomerular Filt Rate 62 ml/min (>60); GFR (African American) 75 ML/MIN (>60)
[2024-05-13 17:12] LABS: Alanine Aminotransferase 32 U/L (12-78); Albumin/Globulin Ratio 1.2 (1.1-1.8); Alkaline Phosphatase 68 U/L (38-126); Anion Gap 10.4 mEq/L (5-15); Aspartate Amino Transferase 27 U/L (14-36); Bilirubin,Total 0.4 mg/dl (0.2-1.3); Calcium 8.4 mg/dl (8.4-10.2); Carbon Dioxide 26 mmol/L (22.0-30.0); Globulin 3.2 g/dL (1.3-3.2); Glucose 138 mg/dl (74-100); Lipase 282 U/L (23-300); Total Protein,Serum 6.9 g/dl (6.3-8.2)
[2024-05-13 17:23] LABS: Lactic Acid 2.2 mmol/L (0.7-2.1)
[2024-05-13] MEDS: OXYCODONE 5MG IMMEDIATE RELEASE TABLET 5 MG PO (18:19)
[2024-05-13 18:25] VITALS: BP 153/108; PULSE 98; RESP 16; TEMP 36.5; O2SAT 98
[2024-05-13 20:57] LABS: Reflex Lactic Add Lactic Reflex
== END 2024-05-13 18:26 | disposition home or self-care (01) ==
PROVIDERS: Emergency Provider Emergency Medicine
DX: N12 Tubulo-interstitial nephritis, not specified as acute or chronic (principal); R10.32 Left lower quadrant pain; R35.0 Frequency of micturition; I10 Essential (primary) hypertension
CPT/HCPCS: 74176; 80053; 81001; 81025; 83605; 83690; 85025; 87040; 96361; 96365; 96375; 99285; J0131; J0696; J2270; J2405; J7120

== ENCOUNTER 2024-05-16 15:47 | Emergency (ER) | payer OTHER, SELFPAY ==
[2024-05-16 15:48] VITALS: BP 164/115; PULSE 81; RESP 20; TEMP 36.6; O2SAT 97; BMI 43.9
--- NOTE | 2024-05-16 15:59 | ED_ITS ---
<Statement entered by Orlando Parra MD - 05/16/24 22:51> I was consulted by the ADELINA, and we discussed the complexity of problems being addressed. I approved the treatment and management plan for this patient's care in the emergency department, thus performing a substantial portion of the medical decision making. Orlando Parra MD Discharge Plan Disposition Patient Disposition: Home, Self-Care Condition: Good Prescriptions Prescriptions: New promethazine 25 mg tablet 25 mg PO Q6H PRN (Reason: nausea and vomiting) Qty: 7 0RF No Action hydroxyzine HCl 25 mg Tablet 25 mg PO TIDP PRN (Reason: Anxiety) hydrochlorothiazide 25 mg Tablet 25 mg PO DAILY paroxetine HCl 40 mg Tablet 40 mg PO DAILY metronidazole 500 mg tablet 500 mg PO Q8H 7 Days Qty: 21 0RF ciprofloxacin HCl 500 mg tablet 500 mg PO Q12H 7 Days Qty: 14 0RF azithromycin [Zithromax] 250 mg tablet 250 mg PO UD DOSE PK Qty: 6 0RF Rx Instructions: Take two (2) tablets today, then one (1) tablet days #2 thru #5 [id number] [Bromfed DM] 2-30-10 mg/5 mL Syrup 5 ml PO Q6H PRN (Reason: Cough) Qty: 240 0RF ondansetron 4 mg Tablet,Disintegrating 4 mg PO Q8H PRN (Reason: Nausea) Qty: 12 0RF albuterol sulfate [Ventolin HFA] 90 mcg/actuation HFA aerosol inhaler 2 puff inhalation Q6H PRN (Reason: shortness of breath or wheezing) Qty: 6.7 0RF tamsulosin [Flomax] 0.4 mg capsule 0.4 mg PO DAILY Qty: 7 0RF cefdinir 300 mg capsule 300 mg PO BID 7 Days Qty: 14 0RF oxycodone 5 mg tablet 5 mg PO Q6H PRN (Reason: pain) Qty: 10 0RF ondansetron 4 mg tablet,disintegrating 4 mg PO Q6H PRN (Reason: nausea and vomiting) Qty: 10 0RF cefdinir 300 mg capsule 300 mg PO BID 7 Days Qty: 14 0RF Referrals Follow up/Referrals: Provider,Referral, [Primary Care Provider] - See instructions Orlando Acosta MD [Referring] - See instructions Activity Restrictions/Add. Instructions Additional Instructions/Restrictions: I have sent in Phenergan to your pharmacy. Please take before the nausea becomes significantly incapacitating. Please call make an appointment with Dr. Acosta as you do not currently have a urologist. Follow-up with your PCP within 48 hours for recheck. Clinical Impressions Clinical Impression: Pyelonephritis Instructions Patient Instructions: DI for Urinary Tract Infection (UTI), Nausea and Vomiting-Adult Print Language Print Language: [place] Discharge ED Provider: Orlando Parra General Adult HPI General Chief complaint: Urogenital-Female Stated complaint: SOA, ABD pain Time Seen by Provider: 05/16/24 15:49 History of Present Illness HPI narrative: Patient presents for reevaluation of left flank pain. Patient was here on 05/13/2024 diagnosed with pyelonephritis and treated with cefdinir. Patient states however that she is intolerant of any oral intake down and she has been having more left flank pain. She denies fever chills hemoptysis hematochezia melena hematemesis hematuria. Patient also reports chest congestion and dyspnea. Related Data Home Medications ?Medication ?Instructions ?Recorded ?Confirmed hydrochlorothiazide 25 mg tablet 25 mg PO DAILY High Blood Pressure 09/02/23 09/02/23 hydroxyzine HCl 25 mg tablet 25 mg PO TIDP PRN Anxiety 09/02/23 09/02/23 paroxetine HCl 40 mg tablet 40 mg PO DAILY Anxiety 09/02/23 09/02/23 Previous Rx's ?Medication ?Instructions ?Recorded ciprofloxacin HCl 500 mg tablet 500 mg PO Q12H 7 days #14 tabs 09/06/23 metronidazole 500 mg tablet 500 mg PO Q8H 7 days #21 tabs 09/06/23 cefdinir 300 mg capsule 300 mg PO BID 7 days #14 caps 02/28/24 ondansetron 4 mg disintegrating 4 mg PO Q6H PRN nausea and 02/28/24 tablet vomiting #10 tabs oxycodone 5 mg tablet 5 mg PO Q6H PRN pain #10 tabs 02/28/24 tamsulosin 0.4 mg capsule (Flomax) 0.4 mg PO DAILY #7 caps 02/28/24 albuterol sulfate 90 mcg/actuation 2 puff inhalation Q6H PRN 05/11/24 aerosol inhaler (Ventolin HFA) shortness of breath or wheezing #6.7 grams azithromycin 250 mg tablet 250 mg PO UD DOSE PK #6 tabs 05/11/24 (Zithromax) mhbwqmttpjprvqb-hsbrnbhpzvbmqeq-OY 5 ml PO Q6H PRN Cough #240 mL 05/11/24 2 mg-30 mg-10 mg/5 mL oral syrup (Bromfed DM) ondansetron 4 mg disintegrating 4 mg PO Q8H PRN Nausea #12 tabs 05/11/24 tablet cefdinir 300 mg capsule 300 mg PO BID UTI 7 days #14 caps 05/13/24 promethazine 25 mg tablet 25 mg PO Q6H PRN nausea and 05/16/24 vomiting #7 tabs Allergies Allergy/AdvReac Type Severity Reaction Status Date / Time Penicillins Allergy Severe Hives Verified 06/22/23 20:51 gatifloxacin [From TEQUIN] Allergy Mild Verified 06/22/23 20:51 ketorolac [From TORADOL] Allergy Mild Verified 06/22/23 20:51 aztreonam [AZTREONAM] Allergy Unknown NA-NAUSEA/V Verified 06/22/23 20:51 OMITING cefaclor [CEFACLOR] Allergy Unknown Verified 06/22/23 20:51 codeine [CODEINE] Allergy Unknown BLEEDING Verified 06/22/23 20:51 OF EYES AND NOSE doxycycline [DOXYCYCLINE] Allergy Unknown Verified 06/22/23 20:51 midazolam [From VERSED] Allergy Unknown Verified 06/22/23 20:51 ondansetron Allergy Unknown Verified 06/22/23 20:51 [From ZOFRAN ( HYDROCHLORIDE)] sulfamethoxazole Allergy Unknown Verified 06/22/23 20:51 [From BACTRIM] trimethoprim [From BACTRIM] Allergy Unknown Verified 06/22/23 20:51 ibuprofen Allergy Verified 06/22/23 20:51 tramadol Allergy Verified 06/22/23 20:51 PFS PFSH Disclaimer: The information contained in this section may have been updated after the patient was seen, as this information can be updated by other users. 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 Abdominal pain Abscess after procedure Achilles tendinitis Ankle pain, left Anxiety Axillary adenopathy Bronchitis Bronchitis Bruise CAP (community acquired pneumonia) Cast discomfort Cellulitis Cellulitis of breast Chest pain Chews tobacco Chronic pain Class 3 obesity Complex cyst of right ovary Complicated UTI (urinary tract infection) Contusion of coccyx Cough COVID-19 virus infection Cystitis Dehiscence of closure of skin Dental abscess Diarrhea Diverticulitis Elevated serum hCG in female, not Encounter for laboratory testing for COVID-19 virus Epigastric pain Exacerbation of reactive airway disease Flank pain Flank pain, acute Flu syndrome Foot sprain Fracture of medial malleolus, right, closed Hydronephrosis Hydronephrosis with urinary obstruction due to ureteral calculus Hypertension Hypertension Hypokalemia Hypokalemia Kidney stone on left side Left flank pain Left knee pain Left ureteral calculus Leg pain Lesion of liver greater than 1 cm in diameter Morbid obesity with BMI of 40.0-44.9, adult Nausea and vomiting Nephrolithiasis Obesity (BMI 35.0-39.9 without comorbidity) Obstructive uropathy Ovarian cyst Pain and swelling of left ankle Pain and swelling of right ankle Pancreatitis Pneumonia Poison eric dermatitis Puncture wound of hand, left Pyelonephritis Pyelonephritis Pyelonephritis Reactive airway disease with wheezing Recurrent left lower quadrant abdominal pain Renal colic Renal colic on left side Renal colic on right side Renal insufficiency Right flank pain Sciatica Sepsis Sepsis Kurtz splints Sinusitis SIRS (systemic inflammatory response syndrome) Surgical wound infection Tibia/fibula fracture Tight cast TMJ arthralgia Ureteral calculus Ureteral calculus, right Ureteral stent occlusion Urinary tract infection Urolithiasis Vomiting and diarrhea Wound dehiscence, surgical Yeast dermatitis Surgical History Fracture of ankle, lateral malleolus, left, closed Fracture of tibial shaft, left, closed S/P unilateral salpingo-oophorectomy S/P ureteral stent placement Status post cystoscopy with ureteral stent placement 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 current occupational exposures/hazards: No caffeine: No ROS Obtained: Yes Systems reviewed as appropriate & no additional complaints except as documented Physical Exam General General appearance: alert and in no apparent distress Respiratory Respiratory exam: Present normal lung sounds bilaterally Cardiovascular Cardiovascular exam: Present regular rate Abdominal Exam Abdominal exam: Present soft (Obese) and normal bowel sounds; Absent tenderness, guarding, rebound or rigidity Back Exam Back exam: Present CVA tenderness (L); Absent CVA tenderness (R) Neurological Exam Neurological exam: Present alert and oriented X3 Medical Decision Making Medical Records Medical records reviewed: Yes I reviewed the patient's medical records. Olu Inquiry Pt receiving controlled substance: No Vital Signs: 05/16/24 15:48 Temperature 98 F Temperature Source Oral Pulse Rate [Right] 81 Respiratory Rate 20 Blood Pressure [Right Arm] 164/115 H Blood Pressure Mean [Right Arm] 131 02 Sat by Pulse Oximetry 97 Oxygen Delivery Method Room Air Lab Data Lab results reviewed: Yes I reviewed the patient's lab results. Lab Results 05/16/24 16:00: Urine Color Yellow, Urine Appearance Cloudy, Urine pH 6.5, Ur Specific [place] 1.020, Urine Protein 1+ A, Urine Glucose (UA) Negative, Urine Ketones Negative, Urine Blood 2+ A, Urine Nitrate Negative, Urine Bilirubin Negative, Urine Urobilinogen 0.2, Ur Leukocyte Esterase 2+ A, Urine RBC 10-20, Urine WBC 20-50, Ur Squamous Epith Cells 5-10, Urine Bacteria 3+ 05/16/24 16:30: WBC 12.4 H D, RBC 5.16, Hgb 14.8, Hct 46.4, MCV 89.8, MCH 28.6, MCHC 31.9, RDW 14.1, Plt Count 392, MPV 7.9, Neut % (Auto) 71.6, Lymph % (Auto) 17.6, [place] % (Auto) 4.3, Eos % (Auto) 6.0, Baso % (Auto) 0.6, Neut # (Auto) 8.9 H, Lymph # (Auto) 2.2, [place] # (Auto) 0.5, Eos # (Auto) 0.7 H, Baso # (Auto) 0.1, Sodium 139, Potassium 3.7, Chloride 108 H, Carbon Dioxide 28, Anion Gap 6.7, BUN 18 H, Creatinine 0.90, Estimated Creat Clear 67, Estimated GFR 70, Est GFR ( Amer) 85, Glucose 94, Calcium 8.7, Total Bilirubin 0.5, AST 28, ALT 26, Alkaline Phosphatase 83, Total Protein 7.5, Albumin 3.7, Globulin 3.8 H, A lbumin/Globulin Ratio 1.0 L 05/16/24 16:30 05/16/24 16:30 Orders (Tests/Meds): ED MEDICATIONS Generic Name Dose Route Start Last Admin Trade Name Silke PRN Reason Stop Dose Admin Oxycodone HCl 5 mg 05/16/24 17:31 Oxycodone 5mg Immediate Release Tablet PO 05/16/24 17:32 ONCE ONE Discontinued Medications Generic Name Dose Route Start Last Admin Trade Name Silke PRN Reason Stop Dose Admin Acetaminophen 1,000 mg 05/16/24 16:08 05/16/24 16:43 Acetaminophen 1,000mg/100ml Vial IV 05/16/24 16:09 1,000 mg ONCE ONE Administration Dexamethasone Sodium Phosphate 10 mg 05/16/24 16:08 05/16/24 16:43 Dexamethasone 4mg/Ml 5ml Mdv IV 05/16/24 16:09 10 mg ONCE ONE Administration Lactated Ringer's 1,000 mls @ 999 mls/hr 05/16/24 16:08 05/16/24 16:43 Lactated Ringer's 1000 Ml Bag IV 05/16/24 17:08 999 mls/hr .Q1H1M ONE Administration Lidocaine 1 each 05/16/24 16:08 05/16/24 16:43 Lidocaine 5% Transdermal Patch TP 05/16/24 16:09 1 each ONCE ONE Administration Methocarbamol 500 mg 05/16/24 16:08 05/16/24 16:43 Methocarbamol 500mg Tablet PO 05/16/24 16:09 500 mg ONCE ONE Administration Oxycodone HCl 5 mg 05/16/24 16:08 05/16/24 16:43 Oxycodone 5mg Immediate Release Tablet PO 05/16/24 16:09 5 mg ONCE ONE Administration Promethazine HCl 12.5 mg 05/16/24 16:08 05/16/24 16:43 Promethazine Hcl 25mg/Ml 1ml Vial IV 05/16/24 16:09 12.5 mg ONCE ONE Administration Sodium Chloride 25 ml 05/16/24 16:08 05/16/24 16:43 Sodium Chloride 0.9% 25ml Bag IV 05/16/24 16:09 25 ml ONCE ONE Administration ORDERS Category Date Time Status Chest XR 2 view (NOT portable) [XR chest 2V] Stat Exams 05/16/24 16:12 Completed CBC w/Auto Diff [Complete Blood Count Auto Diff] Stat Lab 05/16/24 16:30 Completed CMP [Comprehensive Metabolic Panel] Stat Lab 05/16/24 16:30 Completed UA [Urinalysis and Microscopic] Stat Lab 05/16/24 16:00 Completed Urine Culture Stat Micro 05/16/24 16:00 Received Medical Decision Narrative: In summary patient is a 38-year-old female who presents to the emergency department for evaluation of left flank pain and intractable nausea vomiting. Patient is hemodynamically stable upon arrival, afebrile. Physical exam is remarkable for left CVA tenderness to percussion without radiation, no abdominal tenderness with normal bowel sounds. Breath sounds are clear and equal bilaterally to the bases.. Differential diagnosis includes lumbago versus pyelonephritis versus gastroenteritis etc. Initial workup will be conducted with hematologic labs urinalysis. Further workup was considered however patient had nonconcerning findings on the with nonobstructive bilateral renal calculi and no other acute processes noted, normal white count, contaminated urinalysis but did have blood leukocytosis on the microscopic exam and 3+ bacteria. Initial interventions include crystalloid bolus Tylenol Decadron lidocaine patch Robaxin. Initial workup reviewed by me shows her hematologic labs are nonactionable, urinalysis shows minimal contamination but still 3+ bacteria white cells and red cells. Upon repeat evaluation patient reports that her nausea is improved and she is actually tolerant of oral intake however she still having flank pain despite a multimodal regimen including a single opiate. Given this patient is appropriate for discharge with referral to Dr. Webber of urology and prescription of Phenergan sent in to her pharmacy. Critical Care Critical Care Time Critical Care Time: No
--- NOTE | 2024-05-16 16:12 | XR_ITS ---
PROCEDURE INFORMATION: Exam: XR Chest Exam date and time: 05/16/2024 4:20 PM Age: 38 years old Clinical indication: Cough and other: Congestion; Additional info: Cough congestion TECHNIQUE: Imaging protocol: Radiologic exam of the chest. Views: 2 views. COMPARISON: CR XR CHEST PORTABLE 09/03/2023 9:47 AM FINDINGS: Tubes, catheters and devices: There is a right chest port in place catheter tip projects over the SVC. Lungs: No evidence of acute pulmonary disease or infiltrates Pleural spaces: No large effusion or pneumothorax. Heart/Mediastinum: No evidence of mediastinal widening or cardiac silhouette enlargement; the mediastinum and heart appear within normal limits for contour and size. Bones/joints: No evidence of acute osseous abnormalities within the visualized portions of the thoracic spine and ribs. Osseous structures appear appropriate for patient age. IMPRESSION: No dense parenchymal consolidation, pleural effusion, or pneumothorax.
[2024-05-16 16:16] LABS: Microscopic, Urine URINE MICROSCOPIC (MICROSCOPIC)
[2024-05-16 16:17] LABS: Appearance,Urine CLOUDY (Clear); Bilirubin,Urine Negative (Negative); Blood, Urine 2+ (Negative); Color,Urine YELLOW (Yellow); Glucose,Urine (UA) Negative (Negative); Ketones,Urine Negative (Negative); Leukocyte Esterase,Urine 2+ (Negative); Nitrate,Urine Negative (Negative); PH,Urine 6.5 (5.0-8.5); Protein,Urine 1+ (Negative); Urobilinogen,Urine 0.2 EU/dl (0.2)
[2024-05-16 16:24] LABS: Bacteria,Urine 3+ /lpf; WBC,Urine 20-50 #/hpf (0-3)
[2024-05-16 16:35] LABS: Basophils # 0.1 K/mm3 (0-0.2); Basophils % 0.6 % (0.1-2.0); Eosinophils # 0.7 K/mm3 (0.0-0.4); Hematocrit 46.4 % (37.0-47.0); Hemoglobin 14.8 g/dL (12.2-16.2); Lymphocytes # 2.2 K/mm3 (0.7-4.5); Lymphocytes % 17.6 % (10-50); Mean Corpuscular HGB Conc 31.9 g/dL (31.8-35.4); Mean Corpuscular Hemoglobin 28.6 pg (27.0-31.2); Mean Corpuscular Volume 89.8 fl (81-99); Mean Platelet Volume 7.9 fl (7.4-10.4); Monocytes # 0.5 K/mm3 (0.1-1.0); Monocytes % 4.3 % (1.7-9.3); Neutrophils # 8.9 K/mm3 (1.8-7.8); Neutrophils % 71.6 % (37.0-80.0); Platelet Count 392 K/mm3 (142-424); Red Blood Count 5.16 M/mm3 (4.20-5.40); Red Cell Distribution Width 14.1 % (11.5-17.5); White Blood Count 12.4 K/mm3 (4.8-10.8)
[2024-05-16] MEDS: SODIUM CHLORIDE 0.9% 25ML BAG 25 ML IV (16:43)
[2024-05-16] MEDS: OXYCODONE 5MG IMMEDIATE RELEASE TABLET 5 MG PO ×2 (16:43→18:09)
[2024-05-16] MEDS: LACTATED RINGERS 1000ML 1,000 ML 999 ML IV (16:43)
[2024-05-16] MEDS: DEXAMETHASONE 4MG/ML 5ML MDV 10 MG IV (16:43)
[2024-05-16] MEDS: METHOCARBAMOL 500MG TABLET 500 MG PO (16:43)
[2024-05-16] MEDS: ACETAMINOPHEN 1,000MG/100ML VIAL 1000 MG IV (16:43)
[2024-05-16] MEDS: PROMETHAZINE HCL 25MG/ML 1ML VIAL 12.5 MG IV (16:43)
[2024-05-16] MEDS: LIDOCAINE 5% TRANSDERMAL PATCH 1 EACH TP (16:43)
[2024-05-16 16:45] LABS: Alanine Aminotransferase 26 U/L (12-78); Albumin Level 3.7 g/dl (3.5-5.0); Alkaline Phosphatase 83 U/L (38-126); Anion Gap 6.7 mEq/L (5-15); Aspartate Amino Transferase 28 U/L (14-36); Bilirubin,Total 0.5 mg/dl (0.2-1.3); Blood Urea Nitrogen 18 mg/dl (7-17); Calcium 8.7 mg/dl (8.4-10.2); Carbon Dioxide 28 mmol/L (22.0-30.0); Chloride 108 mmol/L (98-107); Creatinine Clearance Estimated 67 mL/min (50-200); Estimated Glomerular Filt Rate 70 ml/min (>60); GFR (African American) 85 ML/MIN (>60); Globulin 3.8 g/dL (1.3-3.2); Glucose 94 mg/dl (74-100); Potassium 3.7 mmoL/L (3.5-5.1); Sodium 139 mmol/L (136-145); Total Protein,Serum 7.5 g/dl (6.3-8.2)
[2024-05-16 18:11] VITALS: BP 155/98; PULSE 80; RESP 18; TEMP 36.8; O2SAT 99
== END 2024-05-16 18:11 | disposition home or self-care (01) ==
PROVIDERS: Physician Assistant; Emergency Provider Emergency Medicine
DX: N12 Tubulo-interstitial nephritis, not specified as acute or chronic (principal); R06.02 Shortness of breath; R10.9 Unspecified abdominal pain; R11.2 Nausea with vomiting, unspecified
CPT/HCPCS: 71046; 80053; 81001; 85025; 87086; 96361; 96374; 96375; 99285; J0131; J1100; J1642; J2550; J7120

== ENCOUNTER 2024-05-20 20:31 | Emergency (ER) | payer OTHER, SELFPAY ==
[2024-05-20 20:32] VITALS: BP 178/100; PULSE 109; RESP 22; TEMP 36.9; O2SAT 99; BMI 43.9
--- NOTE | 2024-05-20 21:04 | XR_ITS ---
PROCEDURE INFORMATION: Exam: XR Chest Exam date and time: 05/20/2024 9:36 PM Age: 38 years old Clinical indication: Cough; Additional info: Cough L lung pain TECHNIQUE: Imaging protocol: Radiologic exam of the chest. Views: 2 views. COMPARISON: CR XR CHEST 2V 05/16/2024 4:20 PM FINDINGS: Tubes, catheters and devices: Stable darrion catheter central line tip in proximal superior vena cava. Lungs: Unremarkable. No consolidation. Pleural spaces: Unremarkable. No pleural effusion. No pneumothorax. Heart/Mediastinum: Unremarkable. No cardiomegaly. Bones/joints: Unremarkable. IMPRESSION: No acute findings.
--- NOTE | 2024-05-20 21:31 | PC.NURSE ---
called lab to make sure rn had tubed urine specimen to the right location as it had been sent up at 2044 and as of 2131 not been received in by lab, lab stated that yes they had received it and are running it currently
[2024-05-20 21:32] LABS: Microscopic, Urine URINE MICROSCOPIC (MICROSCOPIC)
[2024-05-20 21:34] LABS: Appearance,Urine Slightly Cloudy (Clear); Bilirubin,Urine Negative (Negative); Blood, Urine TRACE-I (Negative); Color,Urine YELLOW (Yellow); Glucose,Urine (UA) Negative (Negative); Ketones,Urine Negative (Negative); Leukocyte Esterase,Urine 1+ (Negative); Nitrate,Urine Negative (Negative); Protein,Urine Negative (Negative); Specific Gravity, Urine 1.025 (1.005-1.030); Urobilinogen,Urine 0.2 EU/dl (0.2)
[2024-05-20 21:49] LABS: Bacteria,Urine 1+ /lpf
--- NOTE | 2024-05-20 22:00 | HMH.EDGENADL ---
Discharge Plan Disposition Patient Disposition: Home, Self-Care Condition: Good Prescriptions Prescriptions: New lidocaine [Lidoderm] 5 % adhesive patch,medicated 1 patch topical DAILY Qty: 15 0RF Rx Instructions: leave on most painful area for up to 12 hrs hqiwczwclyomyfb-xyvmvcuow-UH [Bromfed DM] 2-30-10 mg/5 mL syrup 5 ml PO Q6H PRN (Reason: cold symptoms) Qty: 118 0RF No Action hydroxyzine HCl 25 mg Tablet 25 mg PO TIDP PRN (Reason: Anxiety) hydrochlorothiazide 25 mg Tablet 25 mg PO DAILY paroxetine HCl 40 mg Tablet 40 mg PO DAILY metronidazole 500 mg tablet 500 mg PO Q8H 7 Days Qty: 21 0RF ciprofloxacin HCl 500 mg tablet 500 mg PO Q12H 7 Days Qty: 14 0RF azithromycin [Zithromax] 250 mg tablet 250 mg PO UD DOSE PK Qty: 6 0RF Rx Instructions: Take two (2) tablets today, then one (1) tablet days #2 thru #5 wjtlyqugsxroyfj-gafodnjgi-UF [Bromfed DM] 2-30-10 mg/5 mL Syrup 5 ml PO Q6H PRN (Reason: Cough) Qty: 240 0RF ondansetron 4 mg Tablet,Disintegrating 4 mg PO Q8H PRN (Reason: Nausea) Qty: 12 0RF albuterol sulfate [Ventolin HFA] 90 mcg/actuation HFA aerosol inhaler 2 puff inhalation Q6H PRN (Reason: shortness of breath or wheezing) Qty: 6.7 0RF tamsulosin [Flomax] 0.4 mg capsule 0.4 mg PO DAILY Qty: 7 0RF cefdinir 300 mg capsule 300 mg PO BID 7 Days Qty: 14 0RF oxycodone 5 mg tablet 5 mg PO Q6H PRN (Reason: pain) Qty: 10 0RF ondansetron 4 mg tablet,disintegrating 4 mg PO Q6H PRN (Reason: nausea and vomiting) Qty: 10 0RF cefdinir 300 mg capsule 300 mg PO BID 7 Days Qty: 14 0RF promethazine 25 mg tablet 25 mg PO Q6H PRN (Reason: nausea and vomiting) Qty: 7 0RF Referrals Follow up/Referrals: Frankie Kaur MD [Staff Physician] - See instructions Provider,Referral, MD [Primary Care Provider] - See instructions Fantasma Waldrop MD [Staff Physician] - See instructions Activity Restrictions/Add. Instructions Additional Instructions/Restrictions: You were evaluated in the emergency department today. Your urine cultures have been negative. It looks like your urine is chronically contaminated. Please follow-up closely with the urologist as well as with a primary care provider. supervisor tellers your prescriptions and use them as needed for symptoms. Return to the emergency department for new or worsening symptoms. Clinical Impressions Clinical Impression: Chronic UTI, Left flank pain, Cough Instructions Patient Instructions: DI for Low Back Pain, DI for Cough -- Adult Print Language Print Language: Nepali Discharge ED Provider: Xuan Martínez General Adult HPI General Chief complaint: Back Pain/Injury Stated complaint: back pain chest congestion Time Seen by Provider: 05/20/24 20:36 Mode of Arrival: Ambulatory Source of Information: Patient Limitations: No Limitations Description of Symptoms (Recalled from ER Triage Doc. by RN): cough and back pain x 2 days, pt states she feels like crap all over History of Present Illness HPI narrative: This patient is a 38-year-old female with a history of recurrent urinary tract infections, chronic flank pain, and multiple ED visits over the last several months with concern for flank pain presenting with concern for left flank pain as well as cough. She states that her kidney infection that she was diagnosed with here is getting no better. I reviewed medical records from previous visits and noted that the patient was seen here 05/13/2024 as well as 05/16/2024. She was diagnosed with pyelonephritis and prescribed antibiotics on 05/13/2024 and nausea medication 05/16/2024. She states that despite taking this, her symptoms are getting no better. I reviewed urine cultures from this time and noted that the patient had negative cultures with mixed anibal. I note many prior negative cultures. I also noted prior imaging which showed that the patient had a renal stone but no ureteral stones. patient has not followed up with urologist or PCP since evaluation here Related Data Home Medications ?Medication ?Instructions ?Recorded ?Confirmed hydrochlorothiazide 25 mg tablet 25 mg PO DAILY High Blood Pressure 09/02/23 09/02/23 hydroxyzine HCl 25 mg tablet 25 mg PO TIDP PRN Anxiety 09/02/23 09/02/23 paroxetine HCl 40 mg tablet 40 mg PO DAILY Anxiety 09/02/23 09/02/23 Previous Rx's ?Medication ?Instructions ?Recorded ciprofloxacin HCl 500 mg tablet 500 mg PO Q12H 7 days #14 tabs 09/06/23 metronidazole 500 mg tablet 500 mg PO Q8H 7 days #21 tabs 09/06/23 cefdinir 300 mg capsule 300 mg PO BID 7 days #14 caps 02/28/24 ondansetron 4 mg disintegrating 4 mg PO Q6H PRN nausea and 02/28/24 tablet vomiting #10 tabs oxycodone 5 mg tablet 5 mg PO Q6H PRN pain #10 tabs 02/28/24 tamsulosin 0.4 mg capsule (Flomax) 0.4 mg PO DAILY #7 caps 02/28/24 albuterol sulfate 90 mcg/actuation 2 puff inhalation Q6H PRN 05/11/24 aerosol inhaler (Ventolin HFA) shortness of breath or wheezing #6.7 grams azithromycin 250 mg tablet 250 mg PO UD DOSE PK #6 tabs 05/11/24 (Zithromax) ucyqkhduehkquex-tcditropcrxymue-CA 5 ml PO Q6H PRN Cough #240 mL 05/11/24 2 mg-30 mg-10 mg/5 mL oral syrup (Bromfed DM) ondansetron 4 mg disintegrating 4 mg PO Q8H PRN Nausea #12 tabs 05/11/24 tablet cefdinir 300 mg capsule 300 mg PO BID UTI 7 days #14 caps 05/13/24 promethazine 25 mg tablet 25 mg PO Q6H PRN nausea and 05/16/24 vomiting #7 tabs wcgoczugltmibvo-nzfolbaxlgfqkke-CM 5 ml PO Q6H PRN cold symptoms #118 05/20/24 2 mg-30 mg-10 mg/5 mL oral syrup mL (Bromfed DM) lidocaine 5 % topical patch 1 patch topical DAILY #15 ea 05/20/24 (Lidoderm) Allergies Allergy/AdvReac Type Severity Reaction Status Date / Time Penicillins Allergy Severe Hives Verified 06/22/23 20:51 gatifloxacin [From TEQUIN] Allergy Mild Verified 06/22/23 20:51 ketorolac [From TORADOL] Allergy Mild Verified 06/22/23 20:51 aztreonam [AZTREONAM] Allergy Unknown NA-NAUSEA/V Verified 06/22/23 20:51 OMITING cefaclor [CEFACLOR] Allergy Unknown Verified 06/22/23 20:51 codeine [CODEINE] Allergy Unknown BLEEDING Verified 06/22/23 20:51 OF EYES AND NOSE doxycycline [DOXYCYCLINE] Allergy Unknown Verified 06/22/23 20:51 midazolam [From VERSED] Allergy Unknown Verified 06/22/23 20:51 ondansetron Allergy Unknown Verified 06/22/23 20:51 [From ZOFRAN ( HYDROCHLORIDE)] sulfamethoxazole Allergy Unknown Verified 06/22/23 20:51 [From BACTRIM] trimethoprim [From BACTRIM] Allergy Unknown Verified 06/22/23 20:51 ibuprofen Allergy Verified 06/22/23 20:51 tramadol Allergy Verified 06/22/23 20:51 PFSH PFS Disclaimer: The information contained in this section may have been updated after the patient was seen, as this information can be updated by other users. 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 Axillary adenopathy Morbid obesity with BMI of 40.0-44.9, adult Chews tobacco Chest pain Lesion of liver greater than 1 cm in diameter Pyelonephritis Diverticulitis Puncture wound of hand, left Elevated serum hCG in female, not Hypokalemia Pyelonephritis Urolithiasis Exacerbation of reactive airway disease Pneumonia CAP (community acquired pneumonia) Flu syndrome Bronchitis Kurtz splints Achilles tendinitis Hypokalemia COVID-19 virus infection Nausea and vomiting TMJ arthralgia Pancreatitis Sepsis Anxiety Hypertension Class 3 obesity Ureteral calculus, right Sepsis Sciatica Dental abscess Right flank pain Cough Leg pain Fracture of medial malleolus, right, closed Reactive airway disease with wheezing Bronchitis Sinusitis Ureteral calculus Renal colic Kidney stone on left side Poison eric dermatitis Cellulitis of breast Left flank pain Pain and swelling of left ankle Ankle pain, left Pain and swelling of right ankle Left knee pain Tight cast Cast discomfort Tibia/fibula fracture Encounter for laboratory testing for COVID-19 virus Renal colic on right side Pyelonephritis Hypertension Obstructive uropathy Left ureteral calculus Flank pain SIRS (systemic inflammatory response syndrome) Renal insufficiency Ureteral stent occlusion Hydronephrosis Contusion of coccyx Obesity (BMI 35.0-39.9 without comorbidity) Nephrolithiasis Diarrhea Hydronephrosis with urinary obstruction due to ureteral calculus Complicated UTI (urinary tract infection) Foot sprain Renal colic on left side Bruise Recurrent left lower quadrant abdominal pain Chronic pain Ovarian cyst Flank pain, acute Urinary tract infection Abscess after procedure Wound dehiscence, surgical Dehiscence of closure of skin Yeast dermatitis Surgical wound infection Cellulitis Abdominal pain Complex cyst of right ovary Cystitis Vomiting and diarrhea Epigastric pain Surgical History S/P ureteral stent placement Status post cystoscopy with ureteral stent placement Fracture of ankle, lateral malleolus, left, closed Fracture of tibial shaft, left, closed S/P unilateral salpingo-oophorectomy 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 current occupational exposures/hazards: No caffeine: No ROS Obtained: Yes All systems reviewed & no additional complaints except as documented Physical Exam General General appearance: alert, in no apparent distress and obese Head Head exam: atraumatic and normocephalic Eye Eye exam: Present normal appearance, PERRL and EOMI ENT ENT exam: Present normal exam, normal oropharynx, mucous membranes moist and normal external ear exam Neck Neck exam: Present normal inspection, full ROM and trachea midline; Absent tenderness Chest Chest inspection: Present normal inspection and symmetric chest wall rise; Absent tenderness Respiratory Respiratory exam: Present normal lung sounds bilaterally; Absent respiratory distress, wheezes, stridor or accessory muscle use Cardiovascular Cardiovascular exam: Present regular rate and normal rhythm Abdominal Exam Abdominal exam: Present soft; Absent distention, tenderness or guarding Extremities Exam Extremities exam: Present normal inspection, full ROM and normal capillary refill; Absent tenderness or edema Back Exam Back exam: Present normal inspection and full ROM; Absent tenderness Neurological Exam Neurological exam: Present alert, oriented X3, CN II-XII intact and normal gait; Absent motor sensory deficit Psychiatric Psychiatric exam: Present normal affect and normal mood Skin Skin exam: Present warm and dry Medical Decision Making Medical Records Medical records reviewed: Yes I reviewed the patient's medical records. Olu Inquiry Pt receiving controlled substance: No Vital Signs: 05/20/24 20:32 05/20/24 23:10 Temperature 98.5 F 98.2 F Temperature Source Oral Pulse Rate 90 Pulse Rate [Right Radial] 109 H Respiratory Rate 22 20 Blood Pressure 148/80 H Blood Pressure [Right Arm] 178/100 H Blood Pressure Mean [Right Arm] 126 02 Sat by Pulse Oximetry 99 Oxygen Delivery Method Room Air Room Air Lab Data Lab results reviewed: Yes I reviewed the patient's lab results. Lab Results 05/20/24 21:02: Urine Color Yellow, Urine Appearance Slightly cloudy, Urine pH 6.0, Ur Specific Wallace 1.025, Urine Protein Negative, Urine Glucose (UA) Negative, Urine Ketones Negative, Urine Blood Trace-i, Urine Nitrate Negative, Urine Bilirubin Negative, Urine Urobilinogen 0.2, Ur Leukocyte Esterase 1+ A, Urine RBC 3-5, Urine WBC 5-10, Ur Squamous Epith Cells 5-10, Urine Bacteria 1+ 05/20/24 21:55: WBC 12.7 H, RBC 4.76, Hgb 14.1, Hct 42.6, MCV 89.6, MCH 29.5, MCHC 33.0, RDW 14.5, Plt Count 387, MPV 8.4, Neut % (Auto) 73.8, Lymph % (Auto) 14.5, [place] % (Auto) 5.4, Eos % (Auto) 4.5, Baso % (Auto) 1.8, Neut # (Auto) 9.4 H, Lymph # (Auto) 1.8, [place] # (Auto) 0.7, Eos # (Auto) 0.6 H, Baso # (Auto) 0.2, Sodium 137, Potassium 3.8, Chloride 107, Carbon Dioxide 25, Anion Gap 8.8, BUN 20 H, Creatinine 0.80, Estimated Creat Clear 75, Estimated GFR 80, Est GFR ( Amer) 97, Glucose 93, Calcium 8.2 L, Total Bilirubin 0.5, AST 23, ALT 26, Alkaline Phosphatase 77, Total Protein 7.1, Albumin 3.8, Globulin 3.3 H, Albumin/Globulin Ratio 1.2, Lipase 320 H 05/20/24 21:55 05/20/24 21:55 Orders (Tests/Meds): ED MEDICATIONS Discontinued Medications Generic Name Dose Route Start Last Admin Trade Name Freq PRN Reason Stop Dose Admin Heparin Sodium (Porcine) 300 unit 05/20/24 23:06 05/20/24 23:11 Heparin Lock Flush 500 Units/5ml Syr IV 05/20/24 23:07 5 ml ONCE ONE Administration Lidocaine 1 each 05/20/24 22:05 05/20/24 22:37 Lidocaine 5% Transdermal Patch TP 05/20/24 22:06 1 each ONCE ONE Administration ORDERS Category Date Time Status CXR 2 view (NOT portable) [XR chest 2V] Stat Exams 05/20/24 21:04 Completed Complete Blood Count Auto Diff Stat Lab 05/20/24 21:55 Completed Comprehensive Metabolic Panel Stat Lab 05/20/24 21:55 Completed Lipase Stat Lab 05/20/24 21:55 Completed UA [Urinalysis and Microscopic] Stat Lab 05/20/24 21:02 Completed Urine Culture Stat Micro 05/20/24 21:02 Received Medical Decision Narrative: In summary, this patient is a 38-year-old female presenting to the Emergency Department for evaluation of chronic and recurrent flank pain. Differential diagnoses considered include but are not limited to pyelonephritis, ureterolithiasis, musculoskeletal strain/sprain, chronic pain. Ruling out the most morbid conditions drove assessment. It should be noted patient's history includes chronic pain and anxiety which are not at goal therapy. This complicates all aspects of care by increasing patient's risk for morbidity. I reviewed patient's past medical records and noted multiple previous evaluations for similar issues in the past. Patient was just prescribed antibiotics 05/13/2024, which she is still taking at this time. Urine cultures were negative. On assessment, the patient is sitting upright in no acute distress. Vitals are reassuring. Exam is reassuring. Workup included CBC, CMP, lipase, urinalysis. I considered imaging, however patient has had abdominal imaging recently since onset of the symptoms which was negative for any acute pathology. I also reviewed prior urine cultures which has been negative. She appears to have chronic leukocyte esterase in her urine with concern for contaminated specimens. On reassessment, the patient is resting comfortably. I independently interpreted x-ray prior to radiology read and noted no acute focal consolidation concerning for pneumonia or pneumothorax. Urine chronically shows leukocyte esterase and bacteria but as stated above, cultures have been negative. Ultimately, I do not feel that a change in antibiotics is indicated at this time as she still is undergoing antibiotic treatment with cefdinir and I have low concern that she has an acute infection. I feel she likely has chronic symptoms related to chronic inflammation and pain. I feel she is appropriate for discharge home with close follow-up with urology as well as primary care, as I do not feel she has any acute life-threatening pathology at this time. Patient expressed understanding and agreement. Lidocaine patch helps that she was given prescription for lidocaine patches. She also feels like she is developing a cold with her cough, runny nose, and bodyaches, so I did give her prescription for Bromfed. She was discharged in stable condition after all questions were answered Critical Care Critical Care Time Critical Care Time: No
[2024-05-20 22:03] LABS: Basophils # 0.2 K/mm3 (0-0.2); Basophils % 1.8 % (0.1-2.0); Eosinophils # 0.6 K/mm3 (0.0-0.4); Eosinophils % 4.5 % (0.1-12.0); Hematocrit 42.6 % (37.0-47.0); Hemoglobin 14.1 g/dL (12.2-16.2); Lymphocytes # 1.8 K/mm3 (0.7-4.5); Lymphocytes % 14.5 % (10-50); Mean Corpuscular Hemoglobin 29.5 pg (27.0-31.2); Mean Corpuscular Volume 89.6 fl (81-99); Mean Platelet Volume 8.4 fl (7.4-10.4); Monocytes # 0.7 K/mm3 (0.1-1.0); Monocytes % 5.4 % (1.7-9.3); Neutrophils # 9.4 K/mm3 (1.8-7.8); Neutrophils % 73.8 % (37.0-80.0); Platelet Count 387 K/mm3 (142-424); Red Blood Count 4.76 M/mm3 (4.20-5.40); Red Cell Distribution Width 14.5 % (11.5-17.5); White Blood Count 12.7 K/mm3 (4.8-10.8)
[2024-05-20 22:11] LABS: Albumin Level 3.8 g/dl (3.5-5.0); Chloride 107 mmol/L (98-107); Sodium 137 mmol/L (136-145)
[2024-05-20 22:12] LABS: Potassium 3.8 mmoL/L (3.5-5.1)
[2024-05-20 22:14] LABS: Alanine Aminotransferase 26 U/L (12-78); Anion Gap 8.8 mEq/L (5-15); Aspartate Amino Transferase 23 U/L (14-36); Blood Urea Nitrogen 20 mg/dl (7-17); Carbon Dioxide 25 mmol/L (22.0-30.0); Creatinine Clearance Estimated 75 mL/min (50-200); Estimated Glomerular Filt Rate 80 ml/min (>60); GFR (African American) 97 ML/MIN (>60)
[2024-05-20 22:15] LABS: Albumin/Globulin Ratio 1.2 (1.1-1.8); Alkaline Phosphatase 77 U/L (38-126); Bilirubin,Total 0.5 mg/dl (0.2-1.3); Calcium 8.2 mg/dl (8.4-10.2); Globulin 3.3 g/dL (1.3-3.2); Glucose 93 mg/dl (74-100); Lipase 320 U/L (23-300); Total Protein,Serum 7.1 g/dl (6.3-8.2)
[2024-05-20] MEDS: LIDOCAINE 5% TRANSDERMAL PATCH 1 EACH TP (22:37)
[2024-05-20 23:10] VITALS: BP 148/80; PULSE 90; RESP 20; TEMP 36.8; O2SAT 98
== END 2024-05-20 23:13 | disposition home or self-care (01) ==
PROVIDERS: Emergency Provider Emergency Medicine
DX: N39.0 Urinary tract infection, site not specified (principal); R10.9 Unspecified abdominal pain; R05.9 Cough, unspecified; I10 Essential (primary) hypertension; J45.909 Unspecified asthma, uncomplicated
CPT/HCPCS: 71046; 80053; 81001; 83690; 85025; 87086; 96374; 99285; J1642

== ENCOUNTER 2024-08-22 06:25 | Emergency (ER) | payer OTHER, SELFPAY ==
[2024-08-22] VITALS (8 sets, daily range): BP systolic 113–144; BP diastolic 69–94; PULSE 78–120; RESP 17–20; TEMP 36.7–37.1; O2SAT 94–100; BMI 45.7
--- NOTE | 2024-08-22 06:35 | CT_ITS ---
FINAL REPORT CLINICAL HISTORY: flank pain, hx pyelo, stones COMPARISON: 02/28/2024 and 05/13/2024 FINDINGS: CT OF THE ABDOMEN AND PELVIS WITH CONTRAST Axial CT images of the abdomen and pelvis were obtained after the administration of IV contrast. Coronal and sagittal reformatted images were also obtained and reviewed. This study was performed with techniques to keep radiation doses as low as reasonably achievable (ALARA). Individualized dose reduction techniques using automated exposure control or adjustment of mA and/or kV according to the patient's size were employed. Abdomen: Mild atelectasis is noted in the lung bases.. The heart is normal in size. There is a 14 mm decreased attenuation focus in the right hepatic lobe which is nonspecific. Postcholecystectomy. The spleen is unremarkable. No adrenal mass is present. The pancreas has an unremarkable appearance. There are several nonobstructing left renal stones measuring up to 4 mm. There is moderate left hydronephrosis, hydroureter, and perinephric stranding secondary to a 7 mm stone in the distal left ureter to the level of the mid pelvis versus several adjacent stones. The aorta is normal in caliber. There is no free fluid or adenopathy. Pelvis: The appendix is normal. Post hysterectomy. The urinary bladder is unremarkable. No inflammatory process is seen. There are multiple mildly enlarged inguinal nodes, left greater than right, similar to the prior study and nonspecific, favored to be reactive. There is no evidence of bowel obstruction. There is a small umbilical hernia containing fat. IMPRESSION: 7 mm left ureteral stone versus several adjacent stones causing moderate left hydronephrosis, hydroureter, and perinephric stranding. Nonspecific right hepatic lobe focus. Consider follow-up liver mass protocol CT or MRI for further evaluation. Reviewed, Interpreted and Dictated by Nicholas Escobedo III, MD Transcribed by Lorraine Hammonds Authenticated and [facility]
--- NOTE | 2024-08-22 06:39 | HMH.EDGENADL ---
Discharge Plan Disposition Patient Disposition: Xfer Short-Term Hosp Condition: Good Prescriptions Prescriptions: No Action hydroxyzine HCl 25 mg Tablet 25 mg PO TIDP PRN (Reason: Anxiety) hydrochlorothiazide 25 mg Tablet 25 mg PO DAILY paroxetine HCl 40 mg Tablet 40 mg PO DAILY metronidazole 500 mg tablet 500 mg PO Q8H 7 Days Qty: 21 0RF ciprofloxacin HCl 500 mg tablet 500 mg PO Q12H 7 Days Qty: 14 0RF azithromycin [Zithromax] 250 mg tablet 250 mg PO UD DOSE PK Qty: 6 0RF Rx Instructions: Take two (2) tablets today, then one (1) tablet days #2 thru #5 vizhxcdfxgiywsn-dalejjsuo-QH [Bromfed DM] 2-30-10 mg/5 mL Syrup 5 ml PO Q6H PRN (Reason: Cough) Qty: 240 0RF ondansetron 4 mg Tablet,Disintegrating 4 mg PO Q8H PRN (Reason: Nausea) Qty: 12 0RF albuterol sulfate [Ventolin HFA] 90 mcg/actuation HFA aerosol inhaler 2 puff inhalation Q6H PRN (Reason: shortness of breath or wheezing) Qty: 6.7 0RF lidocaine [Lidoderm] 5 % adhesive patch,medicated 1 patch topical DAILY Qty: 15 0RF Rx Instructions: leave on most painful area for up to 12 hrs ajiyuovojhbhkvs-bqwhckcnr-FZ [Bromfed DM] 2-30-10 mg/5 mL syrup 5 ml PO Q6H PRN (Reason: cold symptoms) Qty: 118 0RF tamsulosin [Flomax] 0.4 mg capsule 0.4 mg PO DAILY Qty: 7 0RF cefdinir 300 mg capsule 300 mg PO BID 7 Days Qty: 14 0RF oxycodone 5 mg tablet 5 mg PO Q6H PRN (Reason: pain) Qty: 10 0RF ondansetron 4 mg tablet,disintegrating 4 mg PO Q6H PRN (Reason: nausea and vomiting) Qty: 10 0RF cefdinir 300 mg capsule 300 mg PO BID 7 Days Qty: 14 0RF promethazine 25 mg tablet 25 mg PO Q6H PRN (Reason: nausea and vomiting) Qty: 7 0RF Referrals Follow up/Referrals: Provider,Referral, MD [Primary Care Provider] - See instructions Activity Restrictions/Add. Instructions Additional Instructions/Restrictions: Transfer to [facility] for urology, Dr. Hartman Clinical Impressions Clinical Impression: Ureterolithiasis, Left flank pain, PAUL (acute kidney injury) Stand Alone Forms Stand Alone Forms: Transfer Record - ED Instructions Patient Instructions: DI for Kidney Stones Print Language Print Language: Indonesian Discharge ED Provider: Xuan Martínez General Adult HPI <Pramod Javed MD - Last Filed: 08/22/24 07:06> General Chief complaint: Abdominal Pain Stated complaint: kidney stone Time Seen by Provider: 08/22/24 06:25 History of Present Illness HPI narrative: 38-year-old female with history of obesity, frequent kidney stones, prior hysterectomy presents for left flank pain. She reports that started last night around 10 PM and has been getting worse. She took Tylenol twice without improvement in symptoms. She reports that she has been having trouble initiating urination. Denies recent fever or illness. Related Data Home Medications ?Medication ?Instructions ?Recorded ?Confirmed hydrochlorothiazide 25 mg tablet 25 mg PO DAILY High Blood Pressure 09/02/23 09/02/23 hydroxyzine HCl 25 mg tablet 25 mg PO TIDP PRN Anxiety 09/02/23 09/02/23 paroxetine HCl 40 mg tablet 40 mg PO DAILY Anxiety 09/02/23 09/02/23 Previous Rx's ?Medication ?Instructions ?Recorded ciprofloxacin HCl 500 mg tablet 500 mg PO Q12H 7 days #14 tabs 09/06/23 metronidazole 500 mg tablet 500 mg PO Q8H 7 days #21 tabs 09/06/23 cefdinir 300 mg capsule 300 mg PO BID 7 days #14 caps 02/28/24 ondansetron 4 mg disintegrating 4 mg PO Q6H PRN nausea and 02/28/24 tablet vomiting #10 tabs oxycodone 5 mg tablet 5 mg PO Q6H PRN pain #10 tabs 02/28/24 tamsulosin 0.4 mg capsule (Flomax) 0.4 mg PO DAILY #7 caps 02/28/24 albuterol sulfate 90 mcg/actuation 2 puff inhalation Q6H PRN 05/11/24 aerosol inhaler (Ventolin HFA) shortness of breath or wheezing #6.7 grams azithromycin 250 mg tablet 250 mg PO UD DOSE PK #6 tabs 05/11/24 (Zithromax) lloqpxqspcmbuuq-yplqcfgniqgxguc-[place] 5 ml PO Q6H PRN Cough #240 mL 05/11/24 2 mg-30 mg-10 mg/5 mL oral syrup (Bromfed DM) ondansetron 4 mg disintegrating 4 mg PO Q8H PRN Nausea #12 tabs 05/11/24 tablet cefdinir 300 mg capsule 300 mg PO BID UTI 7 days #14 caps 05/13/24 promethazine 25 mg tablet 25 mg PO Q6H PRN nausea and 05/16/24 vomiting #7 tabs joopeamawqljksx-jpzdoeprmnlpwva-RT 5 ml PO Q6H PRN cold symptoms #118 05/20/24 2 mg-30 mg-10 mg/5 mL oral syrup mL (Bromfed DM) lidocaine 5 % topical patch 1 patch topical DAILY #15 ea 05/20/24 (Lidoderm) Allergies Allergy/AdvReac Type Severity Reaction Status Date / Time Penicillins Allergy Severe Hives Verified 06/22/23 20:51 gatifloxacin (From TEQUIN) Allergy Mild Verified 06/22/23 20:51 ketorolac (From TORADOL) Allergy Mild Verified 06/22/23 20:51 aztreonam (AZTREONAM) Allergy Unknown NA-NAUSEA/V Verified 06/22/23 20:51 OMITING cefaclor (CEFACLOR) Allergy Unknown Verified 06/22/23 20:51 codeine (CODEINE) Allergy Unknown BLEEDING Verified 06/22/23 20:51 OF EYES AND NOSE doxycycline (DOXYCYCLINE) Allergy Unknown Verified 06/22/23 20:51 midazolam (From VERSED) Allergy Unknown Verified 06/22/23 20:51 sulfamethoxazole (From Allergy Unknown Verified 06/22/23 20:51 BACTRIM) trimethoprim (From BACTRIM) Allergy Unknown Verified 06/22/23 20:51 ibuprofen Allergy Verified 06/22/23 20:51 tramadol Allergy Verified 06/22/23 20:51 PFSH <Pramod Javed MD - Last Filed: 08/22/24 07:06> FOR[facility]LY [facility] Disclaimer: The information contained in this section may have been updated after the patient was seen, as this information can be updated by other users. 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 Axillary adenopathy Morbid obesity with BMI of 40.0-44.9, adult Chews tobacco Chest pain Lesion of liver greater than 1 cm in diameter Pyelonephritis Diverticulitis Puncture wound of hand, left Elevated serum hCG in female, not Hypokalemia Pyelonephritis Urolithiasis Exacerbation of reactive airway disease Pneumonia CAP (community acquired pneumonia) Flu syndrome Bronchitis Kurtz splints Achilles tendinitis Hypokalemia COVID-19 virus infection Nausea and vomiting TMJ arthralgia Pancreatitis Sepsis Anxiety Hypertension Class 3 obesity Ureteral calculus, right Sepsis Sciatica Dental abscess Right flank pain Cough Leg pain Fracture of medial malleolus, right, closed Reactive airway disease with wheezing Bronchitis Sinusitis Ureteral calculus Renal colic Kidney stone on left side Poison eric dermatitis Cellulitis of breast Left flank pain Pain and swelling of left ankle Ankle pain, left Pain and swelling of right ankle Left knee pain Tight cast Cast discomfort Tibia/fibula fracture Encounter for laboratory testing for COVID-19 virus Renal colic on right side Pyelonephritis Hypertension Obstructive uropathy Left ureteral calculus Flank pain SIRS (systemic inflammatory response syndrome) Renal insufficiency Ureteral stent occlusion Hydronephrosis Contusion of coccyx Obesity (BMI 35.0-39.9 without comorbidity) Nephrolithiasis Diarrhea Hydronephrosis with urinary obstruction due to ureteral calculus Complicated UTI (urinary tract infection) Foot sprain Renal colic on left side Bruise Recurrent left lower quadrant abdominal pain Chronic pain Ovarian cyst Flank pain, acute Urinary tract infection Abscess after procedure Wound dehiscence, surgical Dehiscence of closure of skin Yeast dermatitis Surgical wound infection Cellulitis Abdominal pain Complex cyst of right ovary Cystitis Vomiting and diarrhea Epigastric pain Surgical History S/P ureteral stent placement Status post cystoscopy with ureteral stent placement Fracture of ankle, lateral malleolus, left, closed Fracture of tibial shaft, left, closed S/P unilateral salpingo-oophorectomy 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 current occupational exposures/hazards: No caffeine: No Other 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 Have you received the Flu Vaccine for this season: No Have you received the Pneumonia Vaccine: No <Pramod Javed MD - Last Filed: 08/22/24 07:06> ROS Obtained: Yes All systems reviewed & no additional complaints except as documented Physical Exam <Pramod Javed MD - Last Filed: 08/22/24 07:06> General General appearance: alert, anxious and obese Head Head exam: atraumatic and normocephalic Eye Eye exam: Present normal appearance, PERRL and EOMI ENT ENT exam: Present normal oropharynx and normal external ear exam Neck Neck exam: Present normal inspection and full ROM Chest Chest inspection: Present normal inspection and symmetric chest wall rise; Absent tenderness Respiratory Respiratory exam: Present normal lung sounds bilaterally; Absent respiratory distress Cardiovascular Cardiovascular exam: Present regular rate and normal rhythm Abdominal Exam Abdominal exam: Present soft; Absent distention, tenderness or guarding Extremities Exam Extremities exam: Present normal inspection; Absent edema or joint swelling Back Exam Back exam: Present normal inspection and CVA tenderness (L) Neurological Exam Neurological exam: Present alert and oriented X3; Absent motor sensory deficit Psychiatric Psychiatric exam: Present normal affect and normal mood Skin Skin exam: Present warm, dry and normal color Lymphatic Lymphatic Findings: no adenopathy Medical Decision Making <Pramod Javed MD - Last Filed: 08/22/24 07:06> Medical Records Medical records reviewed: Yes I reviewed the patient's medical records. Screening: Per USPSTF and CDC recommendations, given the prevalence of disease in our region, it is our hospital?s policy to screen for HIV and viral Hepatitis for all patients aged 18 and over and those with ongoing risk factors. Olu Inquiry Pt receiving controlled substance: No Olu was queried for this patient: No Vital Signs: 08/22/24 06:26 08/22/24 09:07 Temperature 98.8 F Temperature Source Oral Pulse Rate 92 H Pulse Rate [Right] 120 H Respiratory Rate 20 Blood Pressure 137/94 H 02 Sat by Pulse Oximetry 97 95 Oxygen Delivery Method Room Air Lab Data Lab results reviewed: Yes I reviewed the patient's lab results. Lab Results 08/22/24 06:30: Urine Color Yellow, Urine Appearance Sl cloudy, Urine pH 6.0, Ur Specific [place] 1.025, Urine Protein 1+ A, Urine Glucose (UA) Negative, Urine Ketones Negative, Urine Blood Trace-i, Urine Nitrate Negative, Urine Bilirubin Negative, Urine Urobilinogen 0.2, Ur Leukocyte Esterase 1+ A, Urine RBC 3-5, Urine WBC 10-20, Ur Squamous Epith Cells 5-10, Urine Bacteria None 08/22/24 06:55: Sodium 141, Potassium 3.4 L, Chloride 110 H, Carbon Dioxide 25, Anion Gap 9.4, BUN 28 H, Creatinine 1.20 H, Estimated Creat Clear 50, Estimated GFR 50 L, Est GFR ( Amer) 61, Glucose 115 H, Calcium 8.9, Total Bilirubin 0.4, AST 29, ALT 25, Alkaline Phosphatase 92, Total Protein 6.9, Albumin 3.8, Globulin 3.1, Albumin/Globulin Ratio 1.2 08/22/24 07:20: WBC 14.2 H, RBC 4.74, Hgb 13.4, Hct 40.0, MCV 84.5, MCH 28.3, MCHC 33.5, RDW 14.5, Plt Count 351, MPV 7.5, Neut % (Auto) 77.0, Lymph % (Auto) 14.9, [place] % (Auto) 5.4, Eos % (Auto) 2.2, Baso % (Auto) 0.5, Neut # (Auto) 10.9 H, Lymph # (Auto) 2.1, [place] # (Auto) 0.8, Eos # (Auto) 0.3, Baso # (Auto) 0.1, Lactate 0.9 08/22/24 07:20 08/22/24 06:55 Orders (Tests/Meds): ED MEDICATIONS Generic Name Dose Route Start Last Admin Trade Name Freq PRN Reason Stop Dose Admin Hydromorphone HCl 0.5 mg 08/22/24 09:14 Hydromorphone 2mg/Ml Syringe IV 08/22/24 09:15 ONCE ONE Lactated Ringer's 1,000 mls @ 999 mls/hr 08/22/24 09:06 08/22/24 09:12 Lactated Ringer's 1000 Ml Bag IV 08/22/24 10:06 999 mls/hr .Q1H1M ONE Administration Sodium Chloride 10 ml 08/22/24 07:49 08/22/24 07:50 Sodium Chloride 0.9% 10ml Syr (Rad Only) IV 09/21/24 07:48 10 ml NEEDED PRN Administration Maintain IV Site Discontinued Medications Generic Name Dose Route Start Last Admin Trade Name Silke PRN Reason Stop Dose Admin Acetaminophen 1,000 mg 08/22/24 07:46 08/22/24 07:56 Acetaminophen 500mg Tab PO 08/22/24 07:47 1,000 mg ONCE ONE Administration Ceftriaxone Sodium 2 gm/ 100 mls @ 200 mls/hr 08/22/24 08:00 08/22/24 08:10 Sodium Chloride IV 08/22/24 08:29 200 mls/hr ONCE ONE Administration Iopamidol 75 ml 08/22/24 07:49 08/22/24 07:50 Iopamidol-370 (76%);100ml Bottle IV 08/22/24 07:50 75 ml ONCE ONE Administration Morphine Sulfate 4 mg 08/22/24 06:35 08/22/24 06:45 Morphine 4mg/Ml Syringe IV 08/22/24 06:36 4 mg ONCE ONE Administration Morphine Sulfate 4 mg 08/22/24 07:46 08/22/24 07:56 Morphine 4mg/Ml Syringe IV 08/22/24 07:47 4 mg ONCE ONE Administration Ondansetron HCl 4 mg 08/22/24 08:02 08/22/24 08:09 Ondansetron 4mg/2ml Vial IV 08/22/24 08:03 4 mg ONCE ONE Administration Promethazine HCl 25 mg 08/22/24 06:38 08/22/24 06:45 Promethazine Hcl 25mg/Ml 1ml Vial IV 08/22/24 06:39 25 mg ONCE ONE Administration Sodium Chloride 25 ml 08/22/24 06:38 08/22/24 06:45 Sodium Chloride 0.9% 25ml Bag IV 08/22/24 06:39 25 ml ONCE ONE Administration ORDERS Category Date Time Status CT abdomen pelvis w con Stat Cat Scan 08/22/24 06:35 Taken CBC w/Auto Diff [Complete Blood Count Auto Diff] Stat Lab 08/22/24 07:20 Completed CMP [Comprehensive Metabolic Panel] Stat Lab 08/22/24 06:55 Completed HIV (1&2) Antibody Rapid Stat Lab 08/22/24 07:20 Received Hep C Ab with Reflex to RNA Stat Lab 08/22/24 07:20 Received Lactic Acid Stat Lab 08/22/24 07:20 Completed UA [Urinalysis and Microscopic] Stat Lab 08/22/24 06:30 Completed Blood Culture Stat Micro 08/22/24 06:37 Received Urine Culture Stat Micro 08/22/24 06:30 Received Medical Decision Narrative: 38-year-old female with history of prior kidney stones, pyelonephritis, obesity, hysterectomy presents for left flank pain starting last night with difficulty initiating urination.. History was obtained via interactive discussion with patient, chart review. On arrival, patient is afebrile, hypertensive, satting appropriately on room air, alert and oriented, moving all extremities spontaneously. Full physical exam performed and significant for left flank pain Differential includes but is not limited to kidney stone, pyelonephritis, aortic pathology. Patient was given morphine and Phenergan IV for symptomatic management and correction of underlying abnormalities. She took Tylenol just prior to arrival. Workup initiated including CBC CMP UA blood culture urine culture lactate CT abdomen pelvis with IV contrast. At this time care handed off to oncoming physician. <Xuan Martínez, DO - Last Filed: 08/22/24 09:22> Vital Signs: 08/22/24 06:26 08/22/24 09:07 Temperature 98.8 F Temperature Source Oral Pulse Rate 92 H Pulse Rate [Right] 120 H Respiratory Rate 20 Blood Pressure 137/94 H 02 Sat by Pulse Oximetry 97 95 Oxygen Delivery Method Room Air Lab Data Lab Results 08/22/24 06:30: Urine Color Yellow, Urine Appearance Sl cloudy, Urine pH 6.0, Ur Specific [place] 1.025, Urine Protein 1+ A, Urine Glucose (UA) Negative, Urine Ketones Negative, Urine Blood Trace-i, Urine Nitrate Negative, Urine Bilirubin Negative, Urine Urobilinogen 0.2, Ur Leukocyte Esterase 1+ A, Urine RBC 3-5, Urine WBC 10-20, Ur Squamous Epith Cells 5-10, Urine Bacteria None 08/22/24 06:55: Sodium 141, Potassium 3.4 L, Chloride 110 H, Carbon Dioxide 25, Anion Gap 9.4, BUN 28 H, Creatinine 1.20 H, Estimated Creat Clear 50, Estimated GFR 50 L, Est GFR ( Amer) 61, Glucose 115 H, Calcium 8.9, Total Bilirubin 0.4, AST 29, ALT 25, Alkaline Phosphatase 92, Total Protein 6.9, Albumin 3.8, Globulin 3.1, Albumin/Globulin Ratio 1.2 08/22/24 07:20: WBC 14.2 H, RBC 4.74, Hgb 13.4, Hct 40.0, MCV 84.5, MCH 28.3, MCHC 33.5, RDW 14.5, Plt Count 351, MPV 7.5, Neut % (Auto) 77.0, Lymph % (Auto) 14.9, [place] % (Auto) 5.4, Eos % (Auto) 2.2, Baso % (Auto) 0.5, Neut # (Auto) 10.9 H, Lymph # (Auto) 2.1, [place] # (Auto) 0.8, Eos # (Auto) 0.3, Baso # (Auto) 0.1, Lactate 0.9 Orders (Tests/Meds): ED MEDICATIONS Generic Name Dose Route Start Last Admin Trade Name Silke PRN Reason Stop Dose Admin Hydromorphone HCl 0.5 mg 08/22/24 09:14 Hydromorphone 2mg/Ml Syringe IV 08/22/24 09:15 ONCE ONE Lactated Ringer's 1,000 mls @ 999 mls/hr 08/22/24 09:06 08/22/24 09:12 Lactated Ringer's 1000 Ml Bag IV 08/22/24 10:06 999 mls/hr .Q1H1M ONE Administration Sodium Chloride 10 ml 08/22/24 07:49 08/22/24 07:50 Sodium Chloride 0.9% 10ml Syr (Rad Only) IV 09/21/24 07:48 10 ml NEEDED PRN Administration Maintain IV Site Discontinued Medications Generic Name Dose Route Start Last Admin Trade Name Fresilvia PRN Reason Stop Dose Admin Acetaminophen 1,000 mg 08/22/24 07:46 08/22/24 07:56 Acetaminophen 500mg Tab PO 08/22/24 07:47 1,000 mg ONCE ONE Administration Ceftriaxone Sodium 2 gm/ 100 mls @ 200 mls/hr 08/22/24 08:00 08/22/24 08:10 Sodium Chloride IV 08/22/24 08:29 200 mls/hr ONCE ONE Administration Iopamidol 75 ml 08/22/24 07:49 08/22/24 07:50 Iopamidol-370 (76%);100ml Bottle IV 08/22/24 07:50 75 ml ONCE ONE Administration Morphine Sulfate 4 mg 08/22/24 06:35 08/22/24 06:45 Morphine 4mg/Ml Syringe IV 08/22/24 06:36 4 mg ONCE ONE Administration Morphine Sulfate 4 mg 08/22/24 07:46 08/22/24 07:56 Morphine 4mg/Ml Syringe IV 08/22/24 07:47 4 mg ONCE ONE Administration Ondansetron HCl 4 mg 08/22/24 08:02 08/22/24 08:09 Ondansetron 4mg/2ml Vial IV 08/22/24 08:03 4 mg ONCE ONE Administration Promethazine HCl 25 mg 08/22/24 06:38 08/22/24 06:45 Promethazine Hcl 25mg/Ml 1ml Vial IV 08/22/24 06:39 25 mg ONCE ONE Administration Sodium Chloride 25 ml 08/22/24 06:38 08/22/24 06:45 Sodium Chloride 0.9% 25ml Bag IV 08/22/24 06:39 25 ml ONCE ONE Administration ORDERS Category Date Time Status CT abdomen pelvis w con Stat Cat Scan 08/22/24 06:35 Taken CBC w/Auto Diff [Complete Blood Count Auto Diff] Stat Lab 08/22/24 07:20 Completed CMP [Comprehensive Metabolic Panel] Stat Lab 08/22/24 06:55 Completed HIV (1&2) Antibody Rapid Stat Lab 08/22/24 07:20 Received Hep C Ab with Reflex to RNA Stat Lab 08/22/24 07:20 Received Lactic Acid Stat Lab 08/22/24 07:20 Completed UA [Urinalysis and Microscopic] Stat Lab 08/22/24 06:30 Completed Blood Culture Stat Micro 08/22/24 06:37 Received Urine Culture Stat Micro 08/22/24 06:30 Received Medical Decision Narrative: 38-year-old female with history of prior kidney stones, pyelonephritis, obesity, hysterectomy presents for left flank pain starting last night with difficulty initiating urination.. History was obtained via interactive discussion with patient, chart review. On arrival, patient is afebrile, hypertensive, satting appropriately on room air, alert and oriented, moving all extremities spontaneously. Full physical exam performed and significant for left flank pain Differential includes but is not limited to kidney stone, pyelonephritis, aortic pathology. Patient was given morphine and Phenergan IV for symptomatic management and correction of underlying abnormalities. She took Tylenol just prior to arrival. Workup initiated including CBC CMP UA blood culture urine culture lactate CT abdomen pelvis with IV contrast. At this time care handed off to oncoming physician. DO Mauricio: I assumed care of the patient at 0700. I independently turbid CT scan prior to radiology read and noted obstructive left ureteral stone at the UVJ with significant hydronephrosis. She also has fat stranding adjacent to the ureter. Labs significant for leukocytosis of 14. Patient's urine is nitrate negative but she does have leukocyte esterase and white blood cells. She arrives tachycardic and tachypneic, which could be related to pain, however sepsis cannot be excluded at this time. She was given a liter bolus of IV fluids here in the emergency department but was not given a full sepsis bolus, as the patient is obese and I feel weight-based dosing could be harmful to her. She has a slight PAUL with a creatinine of 1.2. She had intractable pain requiring multiple doses of IV pain medication including morphine and then Dilaudid. She also had nausea and vomiting refractory to Phenergan and Zofran. Given this, I advised that I would recommend transfer to higher level of care with urology for definitive management. [facility] but refuses [facility]. She is okay with us calling [place], so I did call [place] and talked with Dr. Walter with urology as well as Dr. Patrick hospitalist. They excepted the patient for transfer for further evaluation and management. EMS transport was arranged and the patient was transported in stable condition. Blood cultures and urine culture sent and pending. Procedures <Pramod Javed MD - Last Filed: 08/22/24 07:06> Risk/Benefits of Procedure(s) Were Explained: Yes Critical Care <Pramod Javed MD - Last Filed: 08/22/24 07:06> Critical Care Time Critical Care Time: No
[2024-08-22 06:43] LABS: Microscopic, Urine URINE MICROSCOPIC (MICROSCOPIC)
[2024-08-22] MEDS: SODIUM CHLORIDE 0.9% 25ML BAG 25 ML IV (06:45)
[2024-08-22] MEDS: PROMETHAZINE HCL 25MG/ML 1ML VIAL 25 MG IV (06:45)
[2024-08-22] MEDS: MORPHINE 4MG/ML SYRINGE 4 MG IV ×2 (06:45→07:56)
[2024-08-22 06:46] LABS: Appearance,Urine SL CLOUDY (Clear); Bilirubin,Urine Negative (Negative); Blood, Urine TRACE-I (Negative); Color,Urine YELLOW (Yellow); Glucose,Urine (UA) Negative (Negative); Ketones,Urine Negative (Negative); Leukocyte Esterase,Urine 1+ (Negative); Nitrate,Urine Negative (Negative); Protein,Urine 1+ (Negative); Specific Gravity, Urine 1.025 (1.005-1.030); Urobilinogen,Urine 0.2 EU/dl (0.2)
[2024-08-22 07:17] LABS: Albumin Level 3.8 g/dl (3.5-5.0); Chloride 110 mmol/L (98-107); Sodium 141 mmol/L (136-145)
[2024-08-22 07:18] LABS: Potassium 3.4 mmoL/L (3.5-5.1)
--- NOTE | 2024-08-22 07:18 | PC.NURSE ---
lab at bedside
[2024-08-22 07:20] LABS: Alanine Aminotransferase 25 U/L (12-78); Albumin/Globulin Ratio 1.2 (1.1-1.8); Alkaline Phosphatase 92 U/L (38-126); Anion Gap 9.4 mEq/L (5-15); Aspartate Amino Transferase 29 U/L (14-36); Bilirubin,Total 0.4 mg/dl (0.2-1.3); Blood Urea Nitrogen 28 mg/dl (7-17); Carbon Dioxide 25 mmol/L (22.0-30.0); Creatinine Clearance Estimated 50 mL/min (50-200); Estimated Glomerular Filt Rate 50 ml/min (>60); GFR (African American) 61 ML/MIN (>60); Globulin 3.1 g/dL (1.3-3.2); Glucose 115 mg/dl (74-100); Total Protein,Serum 6.9 g/dl (6.3-8.2)
[2024-08-22 07:21] LABS: Calcium 8.9 mg/dl (8.4-10.2)
[2024-08-22 07:38] LABS: Basophils # 0.1 K/mm3 (0-0.2); Basophils % 0.5 % (0.1-2.0); Eosinophils # 0.3 K/mm3 (0.0-0.4); Eosinophils % 2.2 % (0.1-12.0); Hemoglobin 13.4 g/dL (12.2-16.2); Lactic Acid 0.9 mmol/L (0.7-2.1); Lymphocytes # 2.1 K/mm3 (0.7-4.5); Lymphocytes % 14.9 % (10-50); Mean Corpuscular HGB Conc 33.5 g/dL (31.8-35.4); Mean Corpuscular Hemoglobin 28.3 pg (27.0-31.2); Mean Corpuscular Volume 84.5 fl (81-99); Mean Platelet Volume 7.5 fl (7.4-10.4); Monocytes # 0.8 K/mm3 (0.1-1.0); Monocytes % 5.4 % (1.7-9.3); Neutrophils # 10.9 K/mm3 (1.8-7.8); Platelet Count 351 K/mm3 (142-424); Red Blood Count 4.74 M/mm3 (4.20-5.40); Red Cell Distribution Width 14.5 % (11.5-17.5); White Blood Count 14.2 K/mm3 (4.8-10.8)
[2024-08-22] MEDS: IOPAMIDOL-370 (76%);100ML BOTTLE 75 ML IV (07:50)
[2024-08-22] MEDS: SODIUM CHLORIDE 0.9% 10ML SYR (RAD ONLY) 10 ML IV (07:50)
[2024-08-22] MEDS: ACETAMINOPHEN 500MG TAB 1000 MG PO (07:56)
[2024-08-22] MEDS: ONDANSETRON 4MG/2ML VIAL 4 MG IV (08:09)
[2024-08-22] MEDS: CEFTRIAXONE SODIUM 2 GM in 0.9 % SODIUM CHLORIDE 100 ML IV (08:10)
--- NOTE | 2024-08-22 08:55 | PC.NURSE ---
Calling [facility] for pt transfer for urology. Pt requesting [facility]
--- NOTE | 2024-08-22 09:00 | PC.NURSE ---
Dr. Martínez s/w Dr. Watkins at [facility], he accepts the transfer
--- NOTE | 2024-08-22 09:02 | PC.NURSE ---
on phone with [facility]
[2024-08-22] MEDS: LACTATED RINGERS 1000ML 1,000 ML 999 ML IV ×2 (09:12→12:02)
[2024-08-22] MEDS: HYDROMORPHONE 2MG/ML SYRINGE 0.5 MG IV ×2 (09:31→13:05)
--- NOTE | 2024-08-22 09:38 | PC.NURSE ---
attempted to call report to [facility], TRN was told that the nurse was in a patients room, callback number given.
--- NOTE | 2024-08-22 10:28 | PC.NURSE ---
Report called to Javi PRADO on med/surg at [facility].
--- NOTE | 2024-08-22 12:03 | PC.NURSE ---
Heather from [facility] transfer center called and wanted to speak to the pt about insurance. Before transfering the call to Юлия Romero informed me she would be self pay and have to pay prior to admission. After Юлия got off the phone she informed me that [employer] told her she would have to pay $11,000 prior to admission or her PCP at the [place] would have to send a referal to [facility].
--- NOTE | 2024-08-22 12:15 | PC.NURSE ---
Heather Kenyon with [facility]/Urology called back letting us know NOT to send the pt as they can not accept her wo payment upfront. [facility] Quality Control Analyst Jen also on the the call and states per the director they were asked to get the payment up front. [facility], however Latrice Garcia stated d/t the patient not having seen her PCP in sometime they would not send a referral. I called our case management, s/w Anna, and they asked for me to contact risk management. Dr. Martínez notified of this information, asks to call for possible transfer there.
--- NOTE | 2024-08-22 12:34 | PC.NURSE ---
calling [facility] at this time.
--- NOTE | 2024-08-22 12:41 | PC.NURSE ---
Dr. Martínez [facility]w [facility]
--- NOTE | 2024-08-22 12:51 | PC.NURSE ---
Dr. Martínez at bedside. Pt is accepted to [facility]. Johnny Marion & Urologist Dr. Valdez
--- NOTE | 2024-08-22 12:55 | PC.NURSE ---
report called to mila at ed
--- NOTE | 2024-08-22 13:04 | PC.NURSE ---
I rounded on the pt and reapplied her BP cuff and pulse ox monitor. pt requested something to drink and something for L flank pain. I let her know per the Dr that she is unable to drink at this time. Pain meds ordered. call armenta in reach.
--- NOTE | 2024-08-22 13:33 | PC.NURSE ---
[facility] here for transport
[2024-08-22 15:29] LABS: HIV (1&2) Antibody Rapid NONREACTIVE (NONREACTIVE)
[2024-08-23 10:13] LABS: HCV Ab Non Reactive (Non Reactive)
== END 2024-08-22 13:42 | disposition short-term general hospital (02) ==
PROVIDERS: Emergency Medicine; Emergency Provider Emergency Medicine
DX: K76.9 Liver disease, unspecified (principal); N17.9 Acute kidney failure, unspecified; N20.1 Calculus of ureter; R10.32 Left lower quadrant pain; R33.8 Other retention of urine; R11.2 Nausea with vomiting, unspecified
CPT/HCPCS: 36415; 74177; 80053; 81001; 83605; 85025; 86803; 87040; 87086; 87389; 96361; 96365; 96374; 96375; 99285; J0696; J1171; J2270; J2405; J2550; J7120; Q9967

== ENCOUNTER 2024-09-08 18:57 | Emergency (ER) | payer OTHER, SELFPAY ==
[2024-09-08] VITALS (8 sets, daily range): BP systolic 177–230; BP diastolic 106–136; PULSE 90–106; RESP 16–20; TEMP 36.7–37.1; O2SAT 90–99; BMI 45.7
--- NOTE | 2024-09-08 19:31 | PC.NURSE ---
Report given to Savannah PRADO Pt sitting in chair in room Skin pink warm and dry. Resp full and easy Pt rocking in pain. Speech clear and appropriate
--- NOTE | 2024-09-08 19:32 | CT_ITS ---
PROCEDURE INFORMATION: Exam: CT Abdomen And Pelvis Without Contrast Exam date and time: 09/08/2024 8:12 PM Age: 38 years old Clinical indication: Abdominal pain; Acute; Additional info: Kidney stone/stent placement? TECHNIQUE: Imaging protocol: Computed tomography of the abdomen and pelvis without contrast. Radiation optimization: All CT scans at this facility use at least one of these dose optimization techniques: automated exposure control; mA and/or kV adjustment per patient size (includes targeted exams where dose is matched to clinical indication); or iterative reconstruction. COMPARISON: CT ABDOMEN PELVIS W CON 08/22/2024 7:36 AM FINDINGS: Liver: Normal. No mass. Gallbladder and biliary ducts: Cholecystectomy Pancreas: Normal. No ductal dilation. Spleen: Normal. No splenomegaly. Adrenal glands: Normal. No mass. Kidneys and ureters: Left double-J ureteral stent is in appropriate anatomic position. New since previous examination. Persistent Severe left hydronephrosis is however, noted. Stomach and bowel: Diverticulosis without diverticulitis at descending and sigmoid colon. Appendix: No evidence of appendicitis. Intraperitoneal space: Unremarkable. No free air. No significant fluid collection. Vasculature: Unremarkable. No abdominal aortic aneurysm. Lymph nodes: Unremarkable. No enlarged lymph nodes. Urinary bladder: Unremarkable as visualized. Reproductive: Unremarkable as visualized. Bones/joints: Unremarkable. No acute fracture. Soft tissues: Unremarkable. Other findings: Inferior pole left calyceal calculus measures up to 6 mm. IMPRESSION: 1. New Left double-J ureteral stent is in appropriate position. 2. Persistent Severe left hydronephrosis. 3. Other incidental findings above.
--- NOTE | 2024-09-08 19:35 | HMH.EDGENADL ---
Discharge Plan Disposition Patient Disposition: Home, Self-Care Condition: Good Prescriptions Prescriptions: New oxycodone 5 mg tablet 5 mg PO Q8H PRN (Reason: pain) Qty: 12 0RF phenazopyridine [Pyridium] 200 mg tablet 200 mg PO Q8H PRN (Reason: pain) Qty: 6 0RF No Action hydroxyzine HCl 25 mg Tablet 25 mg PO TIDP PRN (Reason: Anxiety) hydrochlorothiazide 25 mg Tablet 25 mg PO DAILY paroxetine HCl 40 mg Tablet 40 mg PO DAILY ondansetron 4 mg Tablet,Disintegrating 4 mg PO Q8H PRN (Reason: Nausea) Qty: 12 0RF albuterol sulfate [Ventolin HFA] 90 mcg/actuation HFA aerosol inhaler 2 puff inhalation Q6H PRN (Reason: shortness of breath or wheezing) Qty: 6.7 0RF lidocaine [Lidoderm] 5 % adhesive patch,medicated 1 patch topical DAILY Qty: 15 0RF Rx Instructions: leave on most painful area for up to 12 hrs tamsulosin [Flomax] 0.4 mg capsule 0.4 mg PO DAILY Qty: 7 0RF oxycodone 5 mg tablet 5 mg PO Q6H PRN (Reason: pain) Qty: 10 0RF promethazine 25 mg tablet 25 mg PO Q6H PRN (Reason: nausea and vomiting) Qty: 7 0RF Referrals Follow up/Referrals: Provider,Referral, MD [Primary Care Provider] - See instructions Activity Restrictions/Add. Instructions Additional Instructions/Restrictions: Monitor for for fever or worsening of symptoms Follow-up with as scheduled If worsening of symptoms or no improvement return Clinical Impressions Clinical Impression: Left flank pain, Kidney stone Instructions Patient Instructions: DI for Kidney Stones, DI for Acute Pain -- Adult Print Language Print Language: Occitan Discharge ED Provider: Xuan Martínez General Adult HPI <Trevor Arita ([facility]), TELEPHOTO ENGINEER - Last Filed: 09/08/24 22:27> General Chief complaint: PAIN Stated complaint: left side pain Time Seen by Provider: 09/08/24 19:20 Mode of Arrival: Ambulatory Source of Information: Patient Limitations: No Limitations Description of Symptoms (Recalled from ER Triage Doc. by RN): Pt states she has urinary stent placed recently out of her medications and having pain. States she is not scheduled for removal of stent until Oct 06. History of Present Illness HPI narrative: 38-year-old female presents for complaints of left flank pain. Patient states she was seen here on August 22 and transferred to due to a 7 mm stone. Patient states that she had stents placed and was sent home the next day. Patient states she has a follow-up appointment October 06 for removal of the stone and stent. Patient states today the pain worsened and she is unable to get comfortable. Patient states she noticed blood in her urine today which is new. Patient states she is having nausea but no vomiting and no fever. Patient rates pain 8 out of 10. Related Data Home Medications ?Medication ?Instructions ?Recorded ?Confirmed hydrochlorothiazide 25 mg tablet 25 mg PO DAILY High Blood Pressure 09/02/23 09/02/23 hydroxyzine HCl 25 mg tablet 25 mg PO TIDP PRN Anxiety 09/02/23 09/02/23 paroxetine HCl 40 mg tablet 40 mg PO DAILY Anxiety 09/02/23 09/02/23 Previous Rx's ?Medication ?Instructions ?Recorded oxycodone 5 mg tablet 5 mg PO Q6H PRN pain #10 tabs 02/28/24 tamsulosin 0.4 mg capsule (Flomax) 0.4 mg PO DAILY #7 caps 02/28/24 albuterol sulfate 90 mcg/actuation 2 puff inhalation Q6H PRN 05/11/24 aerosol inhaler (Ventolin HFA) shortness of breath or wheezing #6.7 grams ondansetron 4 mg disintegrating 4 mg PO Q8H PRN Nausea #12 tabs 05/11/24 tablet promethazine 25 mg tablet 25 mg PO Q6H PRN nausea and 05/16/24 vomiting #7 tabs lidocaine 5 % topical patch 1 patch topical DAILY #15 ea 05/20/24 (Lidoderm) oxycodone 5 mg tablet 5 mg PO Q8H PRN pain #12 tabs 09/08/24 phenazopyridine 200 mg tablet 200 mg PO Q8H PRN pain 6 doses #6 09/08/24 (Pyridium) tabs Allergies Allergy/AdvReac Type Severity Reaction Status Date / Time Penicillins Allergy Severe Hives Verified 06/22/23 20:51 gatifloxacin (From TEQUIN) Allergy Mild Verified 06/22/23 20:51 ketorolac (From TORADOL) Allergy Mild Verified 06/22/23 20:51 aztreonam (AZTREONAM) Allergy Unknown NA-NAUSEA/V Verified 06/22/23 20:51 OMITING cefaclor (CEFACLOR) Allergy Unknown Verified 06/22/23 20:51 codeine (CODEINE) Allergy Unknown BLEEDING Verified 06/22/23 20:51 OF EYES AND NOSE doxycycline (DOXYCYCLINE) Allergy Unknown Verified 06/22/23 20:51 midazolam (From VERSED) Allergy Unknown Verified 06/22/23 20:51 sulfamethoxazole (From Allergy Unknown Verified 06/22/23 20:51 BACTRIM) trimethoprim (From BACTRIM) Allergy Unknown Verified 06/22/23 20:51 ibuprofen Allergy Verified 06/22/23 20:51 tramadol Allergy Verified 06/22/23 20:51 PFS <Trevor Arita ([facility]), TELEPHOTO ENGINEER - Last Filed: 09/08/24 22:27> [facility] Disclaimer: The information contained in this section may have been updated after the patient was seen, as this information can be updated by other users. 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 , TELEPHOTO ENGINEER) Axillary adenopathy Morbid obesity with BMI of 40.0-44.9, adult Chews tobacco Chest pain Lesion of liver greater than 1 cm in diameter Pyelonephritis Diverticulitis Puncture wound of hand, left Elevated serum hCG in female, not Hypokalemia Pyelonephritis Urolithiasis Exacerbation of reactive airway disease Pneumonia CAP (community acquired pneumonia) Flu syndrome Bronchitis Kurtz splints Achilles tendinitis Hypokalemia COVID-19 virus infection Nausea and vomiting TMJ arthralgia Pancreatitis Sepsis Anxiety Hypertension Class 3 obesity Ureteral calculus, right Sepsis Sciatica Dental abscess Right flank pain Cough Leg pain Fracture of medial malleolus, right, closed Reactive airway disease with wheezing Bronchitis Sinusitis Ureteral calculus Renal colic Kidney stone on left side Poison eric dermatitis Cellulitis of breast Left flank pain Pain and swelling of left ankle Ankle pain, left Pain and swelling of right ankle Left knee pain Tight cast Cast discomfort Tibia/fibula fracture Encounter for laboratory testing for COVID-19 virus Renal colic on right side Pyelonephritis Hypertension Obstructive uropathy Left ureteral calculus Flank pain SIRS (systemic inflammatory response syndrome) Renal insufficiency Ureteral stent occlusion Hydronephrosis Contusion of coccyx Obesity (BMI 35.0-39.9 without comorbidity) Nephrolithiasis Diarrhea Hydronephrosis with urinary obstruction due to ureteral calculus Complicated UTI (urinary tract infection) Foot sprain Renal colic on left side Bruise Recurrent left lower quadrant abdominal pain Chronic pain Ovarian cyst Flank pain, acute Urinary tract infection Abscess after procedure Wound dehiscence, surgical Dehiscence of closure of skin Yeast dermatitis Surgical wound infection Cellulitis Abdominal pain Complex cyst of right ovary Cystitis Vomiting and diarrhea Epigastric pain Surgical History , TELEPHOTO ENGINEER) S/P ureteral stent placement Status post cystoscopy with ureteral stent placement Fracture of ankle, lateral malleolus, left, closed Fracture of tibial shaft, left, closed S/P unilateral salpingo-oophorectomy 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 , TELEPHOTO ENGINEER) Smoking Status: Never smoker second hand exposure: No alcohol intake: never counseling provided: none substance use type: denies use current occupational status: disabled Travel in the last 8 weeks: None household members: none housing: house 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 current occupational exposures/hazards: No caffeine: No Have you lived/traveled outside [place] in past 30 days?: No Contact w/someone who lives/traveled outside US past 30 days?: No Exposure to someone with infectious disease in past 14 days?: No Do you have a fever (greater than 100.4 F or 38 C)?: No Have you tested positive for COVID-19: No Exposed to someone with COVID-19 in past 14 days?: No Do you have a sore throat?: No Do you have a cough?: No Do you have any weakness?: No Do you have any diarrhea?: No Are you experiencing any unusual bleeding?: No Do you have any muscle aches/pain?: No Do you have any abdominal pain?: No Are you experiencing loss of taste or smell?: No Other 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 Have you received the Flu Vaccine for this season: No Have you received the Pneumonia Vaccine: No <[facility]rev[facility] TELEPHOTO ENGINEER - Last Filed: 09/08/24 22:27> ROS Obtained: Yes Systems reviewed as appropriate & no additional complaints except as documented Physical Exam <Trevor Arita ([facility]), TELEPHOTO ENGINEER - Last Filed: 09/08/24 22:27> General General appearance: alert and in no apparent distress Eye Eye exam: Present normal appearance ENT ENT exam: Present normal exam Respiratory Respiratory exam: Present normal lung sounds bilaterally Cardiovascular Cardiovascular exam: Present regular rate and normal rhythm Abdominal Exam Abdominal exam: Present soft and normal bowel sounds Back Exam Back exam: Present CVA tenderness (L) Neurological Exam Neurological exam: Present alert and oriented X3 Skin Skin exam: Present warm and intact Medical Decision Making <Trevor Parkmike ([facility]), TELEPHOTO ENGINEER - Last Filed: 09/08/24 22:27> Medical Records Medical records reviewed: Yes I reviewed the patient's medical records. Screening: Per USPSTF and CDC recommendations, given the prevalence of disease in our region, it is our hospital?s policy to screen for HIV and viral Hepatitis for all patients aged 18 and over and those with ongoing risk factors. Olu Inquiry Pt receiving controlled substance: Yes Olu was queried for this patient: No Risks and benefits of using a controlled substance: were discussed with pt by me Vital Signs: 09/08/24 19:16 09/08/24 20:02 09/08/24 20:08 Temperature 98.4 F Temperature Source Oral Pulse Rate 98 H 92 H Pulse Rate [Right Brachial] 96 H Respiratory Rate 20 Blood Pressure 230/132 H 218/130 H Blood Pressure [Right Arm] 194/124 H Blood Pressure Mean 146 157 Blood Pressure Mean [Right Arm] 147 Blood Pressure Source Blood Pressure Source [Right Arm] Automatic Cuff Blood Pressure Position [Right Arm] Sitting 02 Sat by Pulse Oximetry 99 98 96 Oxygen Delivery Method Room Air 09/08/24 20:11 09/08/24 20:30 09/08/24 21:00 Temperature Temperature Source Pulse Rate 90 96 H 97 H Pulse Rate [Right Brachial] Respiratory Rate Blood Pressure 214/118 H 219/136 H 181/110 H Blood Pressure [Right Arm] Blood Pressure Mean 149 163 138 Blood Pressure Mean [Right Arm] Blood Pressure Source Blood Pressure Source [Right Arm] Blood Pressure Position [Right Arm] 02 Sat by Pulse Oximetry 97 96 92 L Oxygen Delivery Method 09/08/24 21:19 09/08/24 22:29 09/08/24 22:29 Temperature 98.7 F 98.1 F Temperature Source Oral Pulse Rate 95 H 106 H 106 H Pulse Rate [Right Brachial] Respiratory Rate 20 16 Blood Pressure 177/106 H 178/128 H 178/121 H Blood Pressure [Right Arm] Blood Pressure Mean 129 Blood Pressure Mean [Right Arm] Blood Pressure Source Automatic Cuff Blood Pressure Source [Right Arm] Blood Pressure Position [Right Arm] 02 Sat by Pulse Oximetry 90 L Oxygen Delivery Method Room Air Room Air Lab Data Lab results reviewed: Yes I reviewed the patient's lab results. Lab Results 09/08/24 19:10: Urine Color Red, Urine Appearance Cloudy, Urine pH 7.0, Ur Specific Celoron 1.025, Urine Protein 2+ A, Urine Glucose (UA) Negative, Urine Ketones Negative, Urine Blood 3+ A, Urine Nitrate Negative, Urine Bilirubin 1+ A, Urine Urobilinogen 0.2, Ur Leukocyte Esterase 3+ A, Urine RBC Tntc 09/08/24 20:00: WBC 11.7 H, RBC 4.74, Hgb 13.0, Hct 41.1, MCV 86.7, MCH 27.4, MCHC 31.6 L, RDW 13.5, Plt Count 370, MPV 9.9, Neut % (Auto) 72.2, Lymph % (Auto) 17.8, Dawes % (Auto) 6.6, Eos % (Auto) 2.8, Baso % (Auto) 0.3, Neut # (Auto) 8.5 H, Lymph # (Auto) 2.1, Dawes # (Auto) 0.8, Eos # (Auto) 0.3, Baso # (Auto) 0.0, Sodium 136, Potassium 3.8, Chloride 106, Carbon Dioxide 25, Anion Gap 8.8, BUN 13, Creatinine 0.80, Estimated Creat Clear 75, Estimated GFR 80, Est GFR ( Amer) 97, Glucose 96, Calcium 8.6, Total Bilirubin 0.5, AST 31, ALT 25, Alkaline Phosphatase 93, Total Protein 7.0, Albumin 3.7, Globulin 3.3 H, Albumin/Globulin Ratio 1.1, HIV Ag/Ab Combo Qual Negative 09/08/24 20:00 09/08/24 20:00 Orders (Tests/Meds): ED MEDICATIONS Discontinued Medications Generic Name Dose Route Start Last Admin Trade Name Freq PRN Reason Stop Dose Admin Acetaminophen 1,000 mg 09/08/24 21:00 09/08/24 21:17 Acetaminophen 1,000mg/100ml Vial IV 09/08/24 21:01 Not Given ONCE ONE Hydromorphone HCl 1 mg 09/08/24 19:32 09/08/24 19:53 Hydromorphone 2mg/Ml Syringe IV 09/08/24 19:33 1 mg ONCE ONE Administration Hydromorphone HCl 2 mg 09/08/24 21:00 09/08/24 21:17 Hydromorphone 2mg/Ml Syringe IV 09/08/24 21:01 2 mg ONCE ONE Administration Sodium Chloride 1,000 mls @ 500 mls/hr 09/08/24 19:45 Sod Chlor 0.9% 1000ml Bag IV 10/08/24 19:44 .Q2H JUANA Sodium Chloride 500 mls @ 999 mls/hr 09/08/24 19:43 09/08/24 19:53 Sod Chlor 0.9% 1000ml Bag IV 09/08/24 20:13 500 mls/hr .Q31M ONE Administration Oxycodone HCl 5 mg 09/08/24 22:17 09/08/24 22:42 Oxycodone 5mg Immediate Release Tablet PO 09/08/24 22:18 5 mg ONCE ONE Administration Phenazopyridine HCl 200 mg 09/08/24 22:17 09/08/24 22:42 Phenazopyridine 200mg Tablet PO 09/08/24 22:18 200 mg ONCE ONE Administration ORDERS Category Date Time Status CT abdomen pelvis wo con Stat Cat Scan 09/08/24 19:32 Completed CBC w/Auto Diff [Complete Blood Count Auto Diff] Stat Lab 09/08/24 20:00 Completed CMP [Comprehensive Metabolic Panel] Stat Lab 09/08/24 20:00 Completed HIV Combo Stat Lab 09/08/24 20:00 Completed Hep C Ab with Reflex to RNA Stat Lab 09/08/24 20:00 Received Urinalysis and Microscopic Stat Lab 09/08/24 19:10 Completed Urine Culture Stat Micro 09/08/24 19:[address] Data ED CT Reviewed: Yes I have reviewed the patient's CT results and I have viewed the radiologist's interpretation Preliminary Findings: Abnormal US Data ED US Reviewed: Yes I have reviewed the patient's US results and I have viewed radiologist's interpretation Medical Decision Narrative: In summary patient is a 38-year-old female who presents to the emergency department for evaluation of left flank pain and hematuria. Patient is hemodynamically stable upon arrival, a few. Left CVA tenderness. Differential diagnosis includes displacement of stent, UTI. Initial workup will be conducted with CT shows good placement of stent, urinalysis positive for blood, leukocytes and negative for nitrates. initial inventions include CT abdomen pelvis for stent placement, labs, pain control. Initial workup reviewed by me labs unremarkable, CT per report. Upon repeat evaluation patient states pains better controlled. Given this patient appropriate for discharge at this time will discharge home with prescription of pain meds and Pyridium per patient request I informally interpreted patient's CT and is remarkable for stent in proper position, spoke with [facility] recommends of stents in proper placement okay to discharge home and they will notify patient of the sooner appointment. <Xuan Martínez, DO - Last Filed: 09/08/24 23:29> Olu Inquiry Olu was queried for this patient: Yes Vital Signs: 09/08/24 19:16 09/08/24 20:02 09/08/24 20:08 Temperature 98.4 F Temperature Source Oral Pulse Rate 98 H 92 H Pulse Rate [Right Brachial] 96 H Respiratory Rate 20 Blood Pressure 230/132 H 218/130 H Blood Pressure [Right Arm] 194/124 H Blood Pressure Mean 146 157 Blood Pressure Mean [Right Arm] 147 Blood Pressure Source Blood Pressure Source [Right Arm] Automatic Cuff Blood Pressure Position [Right Arm] Sitting 02 Sat by Pulse Oximetry 99 98 96 Oxygen Delivery Method Room Air 09/08/24 20:11 09/08/24 20:30 09/08/24 21:00 Temperature Temperature Source Pulse Rate 90 96 H 97 H Pulse Rate [Right Brachial] Respiratory Rate Blood Pressure 214/118 H 219/136 H 181/110 H Blood Pressure [Right Arm] Blood Pressure Mean 149 163 138 Blood Pressure Mean [Right Arm] Blood Pressure Source Blood Pressure Source [Right Arm] Blood Pressure Position [Right Arm] 02 Sat by Pulse Oximetry 97 96 92 L Oxygen Delivery Method 09/08/24 21:19 09/08/24 22:29 09/08/24 22:29 Temperature 98.7 F 98.1 F Temperature Source Oral Pulse Rate 95 H 106 H 106 H Pulse Rate [Right Brachial] Respiratory Rate 20 16 Blood Pressure 177/106 H 178/128 H 178/121 H Blood Pressure [Right Arm] Blood Pressure Mean 129 Blood Pressure Mean [Right Arm] Blood Pressure Source Automatic Cuff Blood Pressure Source [Right Arm] Blood Pressure Position [Right Arm] 02 Sat by Pulse Oximetry 90 L Oxygen Delivery Method Room Air Room Air Lab Data Lab Results 09/08/24 19:10: Urine Color Red, Urine Appearance Cloudy, Urine pH 7.0, Ur Specific Celoron 1.025, Urine Protein 2+ A, Urine Glucose (UA) Negative, Urine Ketones Negative, Urine Blood 3+ A, Urine Nitrate Negative, Urine Bilirubin 1+ A, Urine Urobilinogen 0.2, Ur Leukocyte Esterase 3+ A, Urine RBC Tntc 09/08/24 20:00: WBC 11.7 H, RBC 4.74, Hgb 13.0, Hct 41.1, MCV 86.7, MCH 27.4, MCHC 31.6 L, RDW 13.5, Plt Count 370, MPV 9.9, Neut % (Auto) 72.2, Lymph % (Auto) 17.8, Dawes % (Auto) 6.6, Eos % (Auto) 2.8, Baso % (Auto) 0.3, Neut # (Auto) 8.5 H, Lymph # (Auto) 2.1, Dawes # (Auto) 0.8, Eos # (Auto) 0.3, Baso # (Auto) 0.0, Sodium 136, Potassium 3.8, Chloride 106, Carbon Dioxide 25, Anion Gap 8.8, BUN 13, Creatinine 0.80, Estimated Creat Clear 75, Estimated GFR 80, Est GFR ( Amer) 97, Glucose 96, Calcium 8.6, Total Bilirubin 0.5, AST 31, ALT 25, Alkaline Phosphatase 93, Total Protein 7.0, Albumin 3.7, Globulin 3.3 H, Albumin/Globulin Ratio 1.1, HIV Ag/Ab Combo Qual Negative Orders (Tests/Meds): ED MEDICATIONS Discontinued Medications Generic Name Dose Route Start Last Admin Trade Name Freq PRN Reason Stop Dose Admin Acetaminophen 1,000 mg 09/08/24 21:00 09/08/24 21:17 Acetaminophen 1,000mg/100ml Vial IV 09/08/24 21:01 Not Given ONCE ONE Hydromorphone HCl 1 mg 09/08/24 19:32 09/08/24 19:53 Hydromorphone 2mg/Ml Syringe IV 09/08/24 19:33 1 mg ONCE ONE Administration Hydromorphone HCl 2 mg 09/08/24 21:00 09/08/24 21:17 Hydromorphone 2mg/Ml Syringe IV 09/08/24 21:01 2 mg ONCE ONE Administration Sodium Chloride 1,000 mls @ 500 mls/hr 09/08/24 19:45 Sod Chlor 0.9% 1000ml Bag IV 10/08/24 19:44 .Q2H JUANA Sodium Chloride 500 mls @ 999 mls/hr 09/08/24 19:43 09/08/24 19:53 Sod Chlor 0.9% 1000ml Bag IV 09/08/24 20:13 500 mls/hr .Q31M ONE Administration Oxycodone HCl 5 mg 09/08/24 22:17 09/08/24 22:42 Oxycodone 5mg Immediate Release Tablet PO 09/08/24 22:18 5 mg ONCE ONE Administration Phenazopyridine HCl 200 mg 09/08/24 22:17 09/08/24 22:42 Phenazopyridine 200mg Tablet PO 09/08/24 22:18 200 mg ONCE ONE Administration ORDERS Category Date Time Status CT abdomen pelvis wo con Stat Cat Scan 09/08/24 19:32 Completed CBC w/Auto Diff [Complete Blood Count Auto Diff] Stat Lab 09/08/24 20:00 Completed CMP [Comprehensive Metabolic Panel] Stat Lab 09/08/24 20:00 Completed HIV Combo Stat Lab 09/08/24 20:00 Completed Hep C Ab with Reflex to RNA Stat Lab 09/08/24 20:00 Received Urinalysis and Microscopic Stat Lab 09/08/24 19:10 Completed Urine Culture Stat Micro 09/08/24 19:10 Received Medical Decision Narrative: In summary patient is a 38-year-old female who presents to the emergency department for evaluation of left flank pain and hematuria. Patient is hemodynamically stable upon arrival, a few. Left CVA tenderness. Differential diagnosis includes displacement of stent, UTI. Initial workup will be conducted with CT shows good placement of stent, urinalysis positive for blood, leukocytes and negative for nitrates. initial inventions include CT abdomen pelvis for stent placement, labs, pain control. Initial workup reviewed by me labs unremarkable, CT per report. Upon repeat evaluation patient states pains better controlled. Given this patient appropriate for discharge at this time will discharge home with prescription of pain meds and Pyridium per patient request I informally interpreted patient's CT and is remarkable for stent in proper position, spoke with [facility] recommends of stents in proper placement okay to discharge home and they will notify patient of the sooner appointment. I was consulted by the ADELINA, and we discussed the complexity of the problems being addressed. I approved the treatment and management plan for this patient's care in the emergency department, thus performing a substantive portion of the medical decision making. Stent in the right place on CT scan. Urine not concerning for infection with negative nitrates, though she does have a lot of blood. Creatinine and leukocytosis are improving from recent evaluation. She has chronic pain is difficult to control, was controlled here with 2 doses of IV Dilaudid. She was then controlled on oral oxycodone and Pyridium and deemed to be appropriate for discharge home. I did have an interactive discussion with Dr. Osorio at urologist at who advised the patient is safe for discharge with narcotics for pain control and he would help arrange close outpatient follow-up. She is given prescription for oxycodone as well as Pyridium. Strict return precautions were given Xuan Martínez, Critical Care <Trevor Arita ([facility]), TELEPHOTO ENGINEER - Last Filed: 09/08/24 22:27> Critical Care Time Critical Care Time: No
[2024-09-08 19:39] LABS: Microscopic, Urine URINE MICROSCOPIC (MICROSCOPIC)
[2024-09-08 19:45] LABS: Blood, Urine 3+ (Negative); Glucose,Urine (UA) Negative (Negative); Ketones,Urine Negative (Negative); Leukocyte Esterase,Urine 3+ (Negative); Nitrate,Urine Negative (Negative); Protein,Urine 2+ (Negative); Specific Gravity, Urine 1.025 (1.005-1.030); Urobilinogen,Urine 0.2 EU/dl (0.2)
[2024-09-08 19:52] LABS: Appearance,Urine Cloudy (Clear); Bilirubin,Urine 1+ (Negative); Color,Urine Red (Yellow)
[2024-09-08] MEDS: 0.9 % SODIUM CHLORIDE 1000ML 500 ML IV (19:53)
[2024-09-08] MEDS: HYDROMORPHONE 2MG/ML SYRINGE 1 MG IV (19:53)
[2024-09-08 20:10] LABS: RBC,Urine TNTC #/hpf (0-3)
[2024-09-08 20:11] LABS: Basophils % 0.3 % (0.1-2.0); Eosinophils # 0.3 K/mm3 (0.0-0.4); Eosinophils % 2.8 % (0.1-12.0); Hematocrit 41.1 % (37.0-47.0); Lymphocytes # 2.1 K/mm3 (0.7-4.5); Lymphocytes % 17.8 % (10-50); Mean Corpuscular HGB Conc 31.6 g/dL (31.8-35.4); Mean Corpuscular Hemoglobin 27.4 pg (27.0-31.2); Mean Corpuscular Volume 86.7 fl (81-99); Mean Platelet Volume 9.9 fl (7.4-10.4); Monocytes # 0.8 K/mm3 (0.1-1.0); Monocytes % 6.6 % (1.7-9.3); Neutrophils # 8.5 K/mm3 (1.8-7.8); Neutrophils % 72.2 % (37.0-80.0); Platelet Count 370 K/mm3 (142-424); Red Blood Count 4.74 M/mm3 (4.20-5.40); Red Cell Distribution Width 13.5 % (11.5-17.5); White Blood Count 11.7 K/mm3 (4.8-10.8)
[2024-09-08 20:30] LABS: Albumin Level 3.7 g/dl (3.5-5.0); Chloride 106 mmol/L (98-107); Potassium 3.8 mmoL/L (3.5-5.1); Sodium 136 mmol/L (136-145)
[2024-09-08 20:32] LABS: Alanine Aminotransferase 25 U/L (12-78); Anion Gap 8.8 mEq/L (5-15); Aspartate Amino Transferase 31 U/L (14-36); Blood Urea Nitrogen 13 mg/dl (7-17); Carbon Dioxide 25 mmol/L (22.0-30.0); Creatinine Clearance Estimated 75 mL/min (50-200); Estimated Glomerular Filt Rate 80 ml/min (>60); GFR (African American) 97 ML/MIN (>60)
[2024-09-08 20:33] LABS: Albumin/Globulin Ratio 1.1 (1.1-1.8); Alkaline Phosphatase 93 U/L (38-126); Bilirubin,Total 0.5 mg/dl (0.2-1.3); Calcium 8.6 mg/dl (8.4-10.2); Globulin 3.3 g/dL (1.3-3.2); Glucose 96 mg/dl (74-100)
--- NOTE | 2024-09-08 20:35 | PC.NURSE ---
Pt medicated for pain Call light in reach Instructed to not get up without help. IV fluids initiated
[2024-09-08] MEDS: HYDROMORPHONE 2MG/ML SYRINGE 2 MG IV (21:17)
--- NOTE | 2024-09-08 21:34 | PC.NURSE ---
Called for a urology consult, awaiting a call back at this time.
[2024-09-08 22:03] LABS: HIV Combo NEGATIVE (Negative)
[2024-09-08] MEDS: OXYCODONE 5MG IMMEDIATE RELEASE TABLET 5 MG PO (22:42)
[2024-09-08] MEDS: PHENAZOPYRIDINE 200MG TABLET 200 MG PO (22:42)
--- NOTE | 2024-09-08 22:46 | PC.NURSE ---
POrt deaccessed using Heparin flush
[2024-09-10 09:08] LABS: HCV Ab Non Reactive (Non Reactive)
== END 2024-09-08 22:47 | disposition home or self-care (01) ==
PROVIDERS: Nurse Practitioner Family; Emergency Provider Emergency Medicine
DX: N20.0 Calculus of kidney (principal); R10.9 Unspecified abdominal pain; R31.9 Hematuria, unspecified; R11.0 Nausea
CPT/HCPCS: 74176; 80053; 81001; 85025; 86803; 87086; 87389; 96361; 96374; 96375; 99284; J1171; J1642; J7030

== ENCOUNTER 2024-10-06 02:28 | Emergency (ER) | payer OTHER, SELFPAY ==
[2024-10-06 02:30] VITALS: BP 195/121; PULSE 110; RESP 20; TEMP 36.8; O2SAT 98; BMI 45.7
--- NOTE | 2024-10-06 02:51 | CT_ITS ---
PROCEDURE INFORMATION: Exam: CT Abdomen And Pelvis With Contrast Exam date and time: 10/06/2024 4:00 AM Age: 39 years old Clinical indication: Abdominal pain; Additional info: Flank pain incontinence, dysuria, R ureteral stent TECHNIQUE: Imaging protocol: Computed tomography of the abdomen and pelvis with contrast. Radiation optimization: All CT scans at this facility use at least one of these dose optimization techniques: automated exposure control; mA and/or kV adjustment per patient size (includes targeted exams where dose is matched to clinical indication); or iterative reconstruction. Contrast material: ISOVUE; Contrast volume: 75 ml; Contrast route: IV; COMPARISON: CT ABDOMEN PELVIS WO CON 09/08/2024 8:12 PM FINDINGS: Liver: Low-density lesion right hepatic lobe, in a patient this age this may represent hemangioma. Gallbladder and biliary ducts: Normal. No calcified stones. No ductal dilation. Pancreas: Normal. No ductal dilation. Spleen: Normal. No splenomegaly. Adrenal glands: Normal. No mass. Kidneys and ureters: The right kidney is normal. There is a left ureteral stent in good position. Cluster of caliceal stones is seen within the left lower pole calices, the cluster measures 9 mm in size. When this study is compared to the examination of 09/08/2024, there has not been a significant interval change. Severe left hydronephrosis is again demonstrated. Stomach and bowel: Rare diverticuli sigmoid. No obstruction. No mucosal thickening. Appendix: No evidence of appendicitis. Intraperitoneal space: Unremarkable. No free air. No significant fluid collection. Vasculature: Unremarkable. No abdominal aortic aneurysm. Lymph nodes: Unremarkable. No enlarged lymph nodes. Urinary bladder: Unremarkable as visualized. Reproductive: Unremarkable as visualized. Bones/joints: Unremarkable. No acute fracture. Soft tissues: Unremarkable. IMPRESSION: Stable appearance compared to prior study, with severe left hydronephrosis despite ureteral stent in good position. Cluster of stones left lower pole calyx. No dilation of the left ureter. No additional acute finding.
[2024-10-06 02:59] LABS: Microscopic, Urine URINE MICROSCOPIC (MICROSCOPIC)
[2024-10-06 03:15] LABS: Appearance,Urine CLOUDY (Clear); Bilirubin,Urine Negative (Negative); Blood, Urine 3+ (Negative); Color,Urine AMBER (Yellow); Glucose,Urine (UA) Negative (Negative); Ketones,Urine Negative (Negative); Leukocyte Esterase,Urine 3+ (Negative); Nitrate,Urine Negative (Negative); Protein,Urine 2+ (Negative); Specific Gravity, Urine 1.025 (1.005-1.030); Urobilinogen,Urine 0.2 EU/dl (0.2)
--- NOTE | 2024-10-06 03:16 | ED_ITS ---
Discharge Plan Disposition Patient Disposition: Home, Self-Care Condition: Good Chief Complaint: Urogenital-Female Prescriptions Prescriptions: No Action hydroxyzine HCl 25 mg Tablet 25 mg PO TIDP PRN (Reason: Anxiety) hydrochlorothiazide 25 mg Tablet 25 mg PO DAILY paroxetine HCl 40 mg Tablet 40 mg PO DAILY ondansetron 4 mg Tablet,Disintegrating 4 mg PO Q8H PRN (Reason: Nausea) Qty: 12 0RF albuterol sulfate [Ventolin HFA] 90 mcg/actuation HFA aerosol inhaler 2 puff inhalation Q6H PRN (Reason: shortness of breath or wheezing) Qty: 6.7 0RF lidocaine [Lidoderm] 5 % adhesive patch,medicated 1 patch topical DAILY Qty: 15 0RF Rx Instructions: leave on most painful area for up to 12 hrs oxycodone 5 mg tablet 5 mg PO Q8H PRN (Reason: pain) Qty: 12 0RF phenazopyridine [Pyridium] 200 mg tablet 200 mg PO Q8H PRN (Reason: pain) Qty: 6 0RF tamsulosin [Flomax] 0.4 mg capsule 0.4 mg PO DAILY Qty: 7 0RF oxycodone 5 mg tablet 5 mg PO Q6H PRN (Reason: pain) Qty: 10 0RF promethazine 25 mg tablet 25 mg PO Q6H PRN (Reason: nausea and vomiting) Qty: 7 0RF Referrals Follow up/Referrals: Provider,Referral, MD [Primary Care Provider] - See instructions Activity Restrictions/Add. Instructions Additional Instructions/Restrictions: You were evaluated in the ER and are appropriate for discharge at this time. Continue your home medications as previously prescribed. Follow-up with urology as scheduled on the . Call Dr. Hubbard with urology first thing this morning. [phone] Do not miss your upcoming appointment. Drink plenty of water, follow-up with your primary care doctor, return to the ER with new, worsening, or otherwise concerning symptoms. Clinical Impressions Clinical Impression: Left flank pain, Hydronephrosis Print Language Print Language: Uzbek Discharge ED Provider: Scot Colón Adult [facility] General Chief complaint: Urogenital-Female Stated complaint: stent pain, incontinece Time Seen by Provider: 10/06/24 02:34 Mode of Arrival: Ambulatory Source of Information: Patient Limitations: No Limitations Description of Symptoms (Recalled from ER Triage Doc. by RN): pt presents with with left sided flank pain, nausea, and urge incontinence. pt reports she does have a ureter stent in place following a kidney stone removal procedure. pt reports she was supposed to have the stent removed 1 month ago but her appointments keep getting rescheduled. History of Present Illness HPI narrative: 39-year-old female with history of recurrent UTI, ureterolithiasis, hysterectomy presents to the ER with left-sided flank pain, nausea, urinary urgency with associated incontinence. Patient reports over a month ago she had a right ureteral stent placed after kidney stone removal at . She states she was supposed to have the stent removed a month ago but her appointments keep getting rescheduled. She states she was supposed to have an appointment tomorrow but it got rescheduled to Wednesday. She states she has been having worsening dysuria despite taking Azo, she is also having nausea without vomiting. She has also in the last few days developed left flank pain. She does not describe it as kidney stone pain, just discomfort. She reports she knows she has to use the restroom but if she does not get there in time she will have urinary incontinence. She is worried about infection and stone as well as the stent having potentially migrated because she had symptoms similar to this in the past due to stent migration. She denies headaches, numbness, tingling, weakness, chest pain, difficulty breathing, cough, congestion, or other associated symptoms. Related Data Home Medications ?Medication ?Instructions ?Recorded ?Confirmed hydrochlorothiazide 25 mg tablet 25 mg PO DAILY High Blood Pressure 09/02/23 09/02/23 hydroxyzine HCl 25 mg tablet 25 mg PO TIDP PRN Anxiety 09/02/23 09/02/23 paroxetine HCl 40 mg tablet 40 mg PO DAILY Anxiety 09/02/23 09/02/23 Previous Rx's ?Medication ?Instructions ?Recorded oxycodone 5 mg tablet 5 mg PO Q6H PRN pain #10 tabs 02/28/24 tamsulosin 0.4 mg capsule (Flomax) 0.4 mg PO DAILY #7 caps 02/28/24 albuterol sulfate 90 mcg/actuation 2 puff inhalation Q6H PRN 05/11/24 aerosol inhaler (Ventolin HFA) shortness of breath or wheezing #6.7 grams ondansetron 4 mg disintegrating 4 mg PO Q8H PRN Nausea #12 tabs 05/11/24 tablet promethazine 25 mg tablet 25 mg PO Q6H PRN nausea and 05/16/24 vomiting #7 tabs lidocaine 5 % topical patch 1 patch topical DAILY #15 ea 05/20/24 (Lidoderm) oxycodone 5 mg tablet 5 mg PO Q8H PRN pain #12 tabs 09/08/24 phenazopyridine 200 mg tablet 200 mg PO Q8H PRN pain 6 doses #6 09/08/24 (Pyridium) tabs Allergies Allergy/AdvReac Type Severity Reaction Status Date / Time Penicillins Allergy Severe Hives Verified 06/22/23 20:51 gatifloxacin (From TEQUIN) Allergy Mild Verified 06/22/23 20:51 ketorolac (From TORADOL) Allergy Mild Verified 06/22/23 20:51 aztreonam (AZTREONAM) Allergy Unknown NA-NAUSEA/V Verified 06/22/23 20:51 OMITING cefaclor (CEFACLOR) Allergy Unknown Verified 06/22/23 20:51 codeine (CODEINE) Allergy Unknown BLEEDING Verified 06/22/23 20:51 OF EYES AND NOSE doxycycline (DOXYCYCLINE) Allergy Unknown Verified 06/22/23 20:51 midazolam (From VERSED) Allergy Unknown Verified 06/22/23 20:51 sulfamethoxazole (From Allergy Unknown Verified 06/22/23 20:51 BACTRIM) trimethoprim (From BACTRIM) Allergy Unknown Verified 06/22/23 20:51 ibuprofen Allergy Verified 06/22/23 20:51 tramadol Allergy Verified 06/22/23 20:51 PFSH PFSH Disclaimer: The information contained in this section may have been updated after the patient was seen, as this information can be updated by other users. 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) Axillary adenopathy Morbid obesity with BMI of 40.0-44.9, adult Chews tobacco Chest pain Lesion of liver greater than 1 cm in diameter Pyelonephritis Diverticulitis Puncture wound of hand, left Elevated serum hCG in female, not Hypokalemia Pyelonephritis Urolithiasis Exacerbation of reactive airway disease Pneumonia CAP (community acquired pneumonia) Flu syndrome Bronchitis Kurtz splints Achilles tendinitis Hypokalemia COVID-19 virus infection Nausea and vomiting TMJ arthralgia Pancreatitis Sepsis Anxiety Hypertension Class 3 obesity Ureteral calculus, right Sepsis Sciatica Dental abscess Right flank pain Cough Leg pain Fracture of medial malleolus, right, closed Reactive airway disease with wheezing Bronchitis Sinusitis Ureteral calculus Renal colic Kidney stone on left side Poison eric dermatitis Cellulitis of breast Left flank pain Pain and swelling of left ankle Ankle pain, left Pain and swelling of right ankle Left knee pain Tight cast Cast discomfort Tibia/fibula fracture Encounter for laboratory testing for COVID-19 virus Renal colic on right side Pyelonephritis Hypertension Obstructive uropathy Left ureteral calculus Flank pain SIRS (systemic inflammatory response syndrome) Renal insufficiency Ureteral stent occlusion Hydronephrosis Contusion of coccyx Obesity (BMI 35.0-39.9 without comorbidity) Nephrolithiasis Diarrhea Hydronephrosis with urinary obstruction due to ureteral calculus Complicated UTI (urinary tract infection) Foot sprain Renal colic on left side Bruise Recurrent left lower quadrant abdominal pain Chronic pain Ovarian cyst Flank pain, acute Urinary tract infection Abscess after procedure Wound dehiscence, surgical Dehiscence of closure of skin Yeast dermatitis Surgical wound infection Cellulitis Abdominal pain Complex cyst of right ovary Cystitis Vomiting and diarrhea Epigastric pain Surgical History , 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) S/P ureteral stent placement Status post cystoscopy with ureteral stent placement Fracture of ankle, lateral malleolus, left, closed Fracture of tibial shaft, left, closed S/P unilateral salpingo-oophorectomy 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 , 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) Smoking Status: Never smoker second hand exposure: No alcohol intake: never counseling provided: none substance use type: denies use current occupational status: disabled Travel in the last 8 weeks: None household members: none housing: house 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 current occupational exposures/hazards: No caffeine: No Have you lived/traveled outside [place] in past 30 days?: No Contact w/someone who lives/traveled outside [place] past 30 days?: No Exposure to someone with infectious disease in past 14 days?: No Do you have a fever (greater than 100.4 F or 38 C)?: No Have you tested positive for COVID-19: No Exposed to someone with COVID-19 in past 14 days?: No Do you have a sore throat?: No Do you have a cough?: No Do you have any weakness?: No Do you have any diarrhea?: No Are you experiencing any unusual bleeding?: No Do you have any muscle aches/pain?: No Do you have any abdominal pain?: No Are you experiencing loss of taste or smell?: No Other 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 Have you received the Flu Vaccine for this season: No Have you received the Pneumonia Vaccine: No ROS Obtained: Yes Systems reviewed as appropriate & no additional complaints except as documented Per HPI Physical Exam General General appearance: alert, in no apparent distress and obese Head Head exam: atraumatic and normocephalic Eye Eye exam: Present PERRL and EOMI ENT ENT exam: Present mucous membranes moist Neck Neck exam: Present normal inspection and full ROM Chest Chest inspection: Present symmetric chest wall rise Respiratory Respiratory exam: Absent respiratory distress or stridor Cardiovascular Cardiovascular exam: Present regular rate and normal rhythm Abdominal Exam Abdominal exam: Present soft and tenderness (Suprapubic mild); Absent distention, guarding or rebound Extremities Exam Extremities exam: Present full ROM Back Exam Back exam: Present CVA tenderness (L); Absent CVA tenderness (R) Neurological Exam Neurological exam: Present alert and oriented X3; Absent motor sensory deficit Psychiatric Psychiatric exam: Present normal affect and normal mood Skin Skin exam: Present warm and dry Medical Decision Making Medical Records Medical records reviewed: Yes I reviewed the patient's medical records. Screening: Per USPSTF and CDC recommendations, given the prevalence of disease in our region, it is our hospital?s policy to screen for HIV and viral Hepatitis for all patients aged 18 and over and those with ongoing risk factors. MR Comment: CT abdomen pelvis from 09/08 was reviewed which demonstrated left double-J ureteral stent in good positioning with persistent left hydronephrosis. CT abdomen pelvis from 08/22 demonstrated 7 mm left ureteral stone with hydronephrosis, hydroureter, perinephric stranding. Olu Inquiry Pt receiving controlled substance: No Vital Signs: 10/06/24 02:30 Temperature 98.2 F Temperature Source Oral Pulse Rate [Right] 110 H Respiratory Rate 20 Blood Pressure [Right Arm] 195/121 H Blood Pressure Mean [Right Arm] 145 02 Sat by Pulse Oximetry 98 Oxygen Delivery Method Room Air Lab Data Lab Results 10/06/24 02:35: Urine Color Xuan, Urine Appearance Cloudy, Urine pH 6.0, Ur Specific [place] 1.025, Urine Protein 2+ A, Urine Glucose (UA) Negative, Urine Ketones Negative, Urine Blood 3+ A, Urine Nitrate Negative, Urine Bilirubin Negative, Urine Urobilinogen 0.2, Ur Leukocyte Esterase 3+ A, Urine RBC 50-100, Urine WBC 20-50, Ur Squamous Epith Cells 5-10, Urine Bacteria 3+, Urine Mucus 1+ 10/06/24 03:15: WBC 12.2 H, RBC 4.79, Hgb 13.3, Hct 41.1, MCV 85.8, MCH 27.8, MCHC 32.4, RDW 13.4, Plt Count 416, MPV 9.8, Neut % (Auto) 66.1, Lymph % (Auto) 24.5, [place] % (Auto) 6.4, Eos % (Auto) 2.3, Baso % (Auto) 0.2, Neut # (Auto) 8.1 H, Lymph # (Auto) 3.0, [place] # (Auto) 0.8, Eos # (Auto) 0.3, Baso # (Auto) 0.0, PT 9.9, INR 0.89 L, Sodium 139, Potassium 3.8, Chloride 105, Carbon Dioxide 27, Anion Gap 10.8, BUN 22 H, Creatinine 0.90, Estimated Creat Clear 66, Estimated GFR 70, Est GFR ( Amer) 84, Glucose 107 H, Lactate 1.3, Calcium 8.8, Total Bilirubin 0.3, AST 26, ALT 23, Alkaline Phosphatase 81, Total Protein 7.2, Albumin 3.8, Globulin 3.4 H, Albumin/Globulin Ratio 1.1 10/06/24 03:15 10/06/24 03:15 Orders (Tests/Meds): ED MEDICATIONS Generic Name Dose Route Start Last Admin Trade Name Freq PRN Reason Stop Dose Admin Sodium Chloride 10 ml 10/06/24 04:07 10/06/24 04:07 Sodium Chloride 0.9% 10ml Syr (Rad Only) IV 11/05/24 04:06 10 ml NEEDED PRN Administration Maintain IV Site Discontinued Medications Generic Name Dose Route Start Last Admin Trade Name Freq PRN Reason Stop Dose Admin Acetaminophen 1,000 mg 10/06/24 02:51 10/06/24 03:20 Acetaminophen 1,000mg/100ml Vial IV 10/06/24 02:52 1,000 mg ONCE ONE Administration Lactated Ringer's 1,000 mls @ 999 mls/hr 10/06/24 03:44 10/06/24 04:07 Lactated Ringer's 1000 Ml Bag IV 10/06/24 04:44 999 mls/hr .Q1H1M ONE Administration Iopamidol 75 ml 10/06/24 04:07 10/06/24 04:07 Iopamidol-370 (76%);100ml Bottle IV 10/06/24 04:08 75 ml ONCE ONE Administration Ondansetron HCl 4 mg 10/06/24 02:51 10/06/24 03:20 Ondansetron 4mg/2ml Vial IV 10/06/24 02:52 4 mg ONCE ONE Administration ORDERS Category Date Time Status CT abdomen pelvis w con Stat Cat Scan 10/06/24 02:51 Completed CBC w/Auto Diff [Complete Blood Count Auto Diff] Stat Lab 10/06/24 03:15 Completed CMP [Comprehensive Metabolic Panel] Stat Lab 10/06/24 03:15 Completed Lactic Acid Stat Lab 10/06/24 03:15 Completed PT INR [Prothrombin Time INR] Stat Lab 10/06/24 03:15 Completed Urinalysis and Microscopic Stat Lab 10/06/24 02:35 Completed Urine Culture Stat Micro 10/06/24 02:35 Received Medical Decision Narrative: In summary, this 39-year-old female presents to the emergency department today with flank pain, nausea, urinary urgency and incontinence. On initial evaluation patient is hemodynamically stable, afebrile, mild suprapubic tenderness without rebound or guarding, mild left CVA tenderness but not significant, remainder of exam reassuring. Differential diagnosis includes but is not limited to nephrolithiasis, ureterolithiasis, hydronephrosis, hydroureter, urinary tract infection, pyelonephritis, stent migration, lactic acidosis, perinephric abscess, among others. Based on these concerns, I ordered serum labs, urine studies, CT imaging. Patient received IV fluids, ondansetron for symptomatic management. Pain is currently controlled and patient reports she took acetaminophen at home. Labs personally reviewed demonstrate mild leukocytosis with WBC 12.2, normal hemoglobin, platelets normal, UA with positive leukocyte esterase, RBCs, WBCs, nitrate negative, 3+ bacteria. With patient's symptoms, UA is concerning for infection however these findings could simply be related to foreign body (ureteral stent) in the urinary system. Review of previous labs demonstrate similar appearing UA on 09/08. Urine culture from that encounter demonstrated multiple organisms and findings of contamination without overt infection. I am not going to treat this as UTI at this time given these previous findings. CMP with prerenal azotemia but otherwise nonactionable, lactic normal at 1.3. CT imaging personally interpreted demonstrate left ureteral stent stable from prior with persistent left hydronephrosis, see radiology read for full interpretation. I called [facility] and discussed this case with Dr. Walker. She was able to review notes from multiple phone calls from urology to the patient that have been missed and not returned. She was also able to see appointments that have been missed including an appointment yesterday where the patient sent a message that she overslept. We reviewed labs and imaging and since patient's findings are stable and she does not have acute abnormalities on workup, she recommended patient follow-up outpatient on 10/10 as scheduled. She did recommend that the patient call Dr. Hubbard when the urology office opens this morning at 8 AM. She stated the patient needs to get her appointment time from them and any further instructions. Since the patient does not have emergent pathology, she will not be transferred at this time which I believe is reasonable. I discussed this conversation with the patient, she states they had previously been calling the wrong number for her. She admits she missed her appointment yesterday. She states she was told she will get an appointment time 24 hours before her appointment on the . We reviewed her labs and imaging and she is comfortable with the plan for discharge with close outpatient follow-up already scheduled with urology on the . I gave the patient specific instructions to drink plenty of fluids, continue home medications, and to follow-up as scheduled with urology. I also instructed her to call Dr. Hubbard first thing in the morning. She also received strict return precautions for the ER. She indicated understanding to all instructions and the patient was discharged in stable condition. Critical Care Critical Care Time Critical Care Time: No
[2024-10-06] MEDS: ACETAMINOPHEN 1,000MG/100ML VIAL 1000 MG IV (03:20)
[2024-10-06] MEDS: ONDANSETRON 4MG/2ML VIAL 4 MG IV (03:20)
[2024-10-06 03:21] VITALS: BP 182/124; PULSE 90; O2SAT 95
[2024-10-06 03:28] LABS: Bacteria,Urine 3+ /lpf; Mucus,Urine 1+ /lpf; RBC,Urine 50-100 #/hpf (0-3); WBC,Urine 20-50 #/hpf (0-3)
[2024-10-06 03:28] LABS: Basophils % 0.2 % (0.1-2.0); Eosinophils # 0.3 K/mm3 (0.0-0.4); Eosinophils % 2.3 % (0.1-12.0); Hematocrit 41.1 % (37.0-47.0); Hemoglobin 13.3 g/dL (12.2-16.2); Lymphocytes % 24.5 % (10-50); Mean Corpuscular HGB Conc 32.4 g/dL (31.8-35.4); Mean Corpuscular Hemoglobin 27.8 pg (27.0-31.2); Mean Corpuscular Volume 85.8 fl (81-99); Mean Platelet Volume 9.8 fl (7.4-10.4); Monocytes # 0.8 K/mm3 (0.1-1.0); Monocytes % 6.4 % (1.7-9.3); Neutrophils # 8.1 K/mm3 (1.8-7.8); Neutrophils % 66.1 % (37.0-80.0); Platelet Count 416 K/mm3 (142-424); Red Blood Count 4.79 M/mm3 (4.20-5.40); Red Cell Distribution Width 13.4 % (11.5-17.5); White Blood Count 12.2 K/mm3 (4.8-10.8)
[2024-10-06 03:30] VITALS: BP 194/125; PULSE 90; O2SAT 94
[2024-10-06 03:33] LABS: Albumin Level 3.8 g/dl (3.5-5.0); Chloride 105 mmol/L (98-107); Potassium 3.8 mmoL/L (3.5-5.1); Sodium 139 mmol/L (136-145)
[2024-10-06 03:35] LABS: Blood Urea Nitrogen 22 mg/dl (7-17); Creatinine Clearance Estimated 66 mL/min (50-200); Estimated Glomerular Filt Rate 70 ml/min (>60); GFR (African American) 84 ML/MIN (>60)
[2024-10-06 03:36] LABS: Alanine Aminotransferase 23 U/L (12-78); Albumin/Globulin Ratio 1.1 (1.1-1.8); Alkaline Phosphatase 81 U/L (38-126); Anion Gap 10.8 mEq/L (5-15); Aspartate Amino Transferase 26 U/L (14-36); Bilirubin,Total 0.3 mg/dl (0.2-1.3); Calcium 8.8 mg/dl (8.4-10.2); Carbon Dioxide 27 mmol/L (22.0-30.0); Globulin 3.4 g/dL (1.3-3.2); Glucose 107 mg/dl (74-100); Total Protein,Serum 7.2 g/dl (6.3-8.2)
[2024-10-06 03:37] LABS: Lactic Acid 1.3 mmol/L (0.7-2.1)
[2024-10-06 03:46] LABS: INR 0.89 (0.9-1.1); Prothrombin Time 9.9 seconds (9.2-12.1)
[2024-10-06] MEDS: LACTATED RINGERS 1000ML 1,000 ML 999 ML IV (04:07)
[2024-10-06] MEDS: IOPAMIDOL-370 (76%);100ML BOTTLE 75 ML IV (04:07)
[2024-10-06] MEDS: SODIUM CHLORIDE 0.9% 10ML SYR (RAD ONLY) 10 ML IV (04:07)
[2024-10-06 04:30] VITALS: BP 167/94; PULSE 83; O2SAT 93
[2024-10-06 05:16] VITALS: BP 163/111; PULSE 85; RESP 16; TEMP 36.7; O2SAT 95
[2024-10-06 05:17] VITALS: BP 163/111; PULSE 91; O2SAT 95
== END 2024-10-06 05:26 | disposition home or self-care (01) ==
PROVIDERS: Emergency Provider Emergency Medicine
DX: N13.30 Unspecified hydronephrosis (principal); R10.32 Left lower quadrant pain; R11.0 Nausea; N39.41 Urge incontinence
CPT/HCPCS: 74177; 80053; 81001; 83605; 85025; 85610; 87086; 96361; 96374; 96375; 99285; J0131; J2405; J7120; Q9967

== ENCOUNTER 2024-11-03 18:24 | Inpatient (IN) | payer OTHER, SELFPAY ==
[2024-11-03 18:28] VITALS: BP 202/127; PULSE 98; RESP 18; TEMP 37.1; O2SAT 98; BMI 26.6
[2024-11-03 18:47] LABS: Microscopic, Urine URINE MICROSCOPIC (MICROSCOPIC)
[2024-11-03 18:49] LABS: Appearance,Urine CLOUDY (Clear); Bilirubin,Urine Negative (Negative); Blood, Urine 3+ (Negative); Color,Urine YELLOW (Yellow); Glucose,Urine (UA) Negative (Negative); Ketones,Urine Negative (Negative); Leukocyte Esterase,Urine 3+ (Negative); Nitrate,Urine Negative (Negative); PH,Urine 6.5 (5.0-8.5); Protein,Urine 2+ (Negative); Urobilinogen,Urine 0.2 EU/dl (0.2)
[2024-11-03 19:06] LABS: Bacteria,Urine 1+ /lpf; RBC,Urine 50-100 #/hpf (0-3); Squamous Epithelial Cell,Urine Occasional #/hpf (0-5); WBC,Urine 20-50 #/hpf (0-3)
--- NOTE | 2024-11-03 19:13 | ED_ITS ---
<Statement entered by Grzegorz Garcia MD - 11/03/24 23:16> I was consulted by the ADELINA, and we discussed the complexity of the problems being addressed. I approved the treatment and management plan for this patient's care in the emergency department, thus performing a substantive portion of the medical decision making. Grzegorz Garcia MD, JUNE, FACEP Discharge Plan Disposition Patient Disposition: Admitted Condition: Fair Prescriptions Prescriptions: No Action hydroxyzine HCl 25 mg Tablet 25 mg PO TIDP PRN (Reason: Anxiety) hydrochlorothiazide 25 mg Tablet 25 mg PO DAILY paroxetine HCl 40 mg Tablet 40 mg PO DAILY ondansetron 4 mg Tablet,Disintegrating 4 mg PO Q8H PRN (Reason: Nausea) Qty: 12 0RF albuterol sulfate [Ventolin HFA] 90 mcg/actuation HFA aerosol inhaler 2 puff inhalation Q6H PRN (Reason: shortness of breath or wheezing) Qty: 6.7 0RF lidocaine [Lidoderm] 5 % adhesive patch,medicated 1 patch topical DAILY Qty: 15 0RF Rx Instructions: leave on most painful area for up to 12 hrs oxycodone 5 mg tablet 5 mg PO Q8H PRN (Reason: pain) Qty: 12 0RF phenazopyridine [Pyridium] 200 mg tablet 200 mg PO Q8H PRN (Reason: pain) Qty: 6 0RF tamsulosin [Flomax] 0.4 mg capsule 0.4 mg PO DAILY Qty: 7 0RF oxycodone 5 mg tablet 5 mg PO Q6H PRN (Reason: pain) Qty: 10 0RF promethazine 25 mg tablet 25 mg PO Q6H PRN (Reason: nausea and vomiting) Qty: 7 0RF Referrals Follow up/Referrals: Provider,Referral, [Primary Care Provider] - See instructions Clinical Impressions Clinical Impression: Complicated urinary tract infection Instructions Patient Instructions: DI for Low Back Pain Print Language Print Language: Cambodian Discharge ED Provider: Grezgorz Garcia General Adult HPI General Chief complaint: Back Pain/Injury Stated complaint: Lt side abd pain Time Seen by Provider: 11/03/24 19:13 Mode of Arrival: Ambulatory Source of Information: Patient Limitations: No Limitations Description of Symptoms (Recalled from ER Triage Doc. by RN): Pt presents with c/o left sided flank pain. Pt states she was diagnosed with a kidney stone on august 22 and had a stent placed at [facility]. Pt states she has not had transportation to get to [place] to get the stent removed. History of Present Illness HPI narrative: Patient presents for evaluation of left flank pain. Patient has a long history of kidney stones. She had a double-J stent placed at the [facility] in August. Patient was supposed to have it removed however due to social issues and the fact the patient does not own a vehicle and she has been unable to get to her follow-up appointments. However patient reports that she forgot about it for quite some time until she started having pain until today and realized that she still had the stent in. Patient's been having left flank pain but denies fever chills hemoptysis hematochezia melena nausea vomiting diarrhea. Related Data Home Medications ?Medication ?Instructions ?Recorded ?Confirmed hydrochlorothiazide 25 mg tablet 25 mg PO DAILY High Blood Pressure 09/02/23 09/02/23 hydroxyzine HCl 25 mg tablet 25 mg PO TIDP PRN Anxiety 09/02/23 09/02/23 paroxetine HCl 40 mg tablet 40 mg PO DAILY Anxiety 09/02/23 09/02/23 Previous Rx's ?Medication ?Instructions ?Recorded oxycodone 5 mg tablet 5 mg PO Q6H PRN pain #10 tabs 02/28/24 tamsulosin 0.4 mg capsule (Flomax) 0.4 mg PO DAILY #7 caps 02/28/24 albuterol sulfate 90 mcg/actuation 2 puff inhalation Q6H PRN 05/11/24 aerosol inhaler (Ventolin HFA) shortness of breath or wheezing #6.7 grams ondansetron 4 mg disintegrating 4 mg PO Q8H PRN Nausea #12 tabs 05/11/24 tablet promethazine 25 mg tablet 25 mg PO Q6H PRN nausea and 05/16/24 vomiting #7 tabs lidocaine 5 % topical patch 1 patch topical DAILY #15 ea 05/20/24 (Lidoderm) oxycodone 5 mg tablet 5 mg PO Q8H PRN pain #12 tabs 09/08/24 phenazopyridine 200 mg tablet 200 mg PO Q8H PRN pain 6 doses #6 09/08/24 (Pyridium) tabs Allergies Allergy/AdvReac Type Severity Reaction Status Date / Time Penicillins Allergy Severe Hives Verified 06/22/23 20:51 gatifloxacin (From TEQUIN) Allergy Mild Verified 06/22/23 20:51 ketorolac (From TORADOL) Allergy Mild Verified 06/22/23 20:51 aztreonam (AZTREONAM) Allergy Unknown NA-NAUSEA/V Verified 06/22/23 20:51 OMITING cefaclor (CEFACLOR) Allergy Unknown Verified 06/22/23 20:51 codeine (CODEINE) Allergy Unknown BLEEDING Verified 06/22/23 20:51 OF EYES AND NOSE doxycycline (DOXYCYCLINE) Allergy Unknown Verified 06/22/23 20:51 midazolam (From VERSED) Allergy Unknown Verified 06/22/23 20:51 sulfamethoxazole (From Allergy Unknown Verified 06/22/23 20:51 BACTRIM) trimethoprim (From BACTRIM) Allergy Unknown Verified 06/22/23 20:51 ibuprofen Allergy Verified 06/22/23 20:51 tramadol Allergy Verified 06/22/23 20:51 PFSH PFS Disclaimer: The information contained in this section may have been updated after the patient was seen, as this information can be updated by other users. 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) Axillary adenopathy Morbid obesity with BMI of 40.0-44.9, adult Chews tobacco Chest pain Lesion of liver greater than 1 cm in diameter Pyelonephritis Diverticulitis Puncture wound of hand, left Elevated serum hCG in female, not Hypokalemia Pyelonephritis Urolithiasis Exacerbation of reactive airway disease Pneumonia CAP (community acquired pneumonia) Flu syndrome Bronchitis Kurtz splints Achilles tendinitis Hypokalemia COVID-19 virus infection Nausea and vomiting TMJ arthralgia Pancreatitis Sepsis Anxiety Hypertension Class 3 obesity Ureteral calculus, right Sepsis Sciatica Dental abscess Right flank pain Cough Leg pain Fracture of medial malleolus, right, closed Reactive airway disease with wheezing Bronchitis Sinusitis Ureteral calculus Renal colic Kidney stone on left side Poison eric dermatitis Cellulitis of breast Left flank pain Pain and swelling of left ankle Ankle pain, left Pain and swelling of right ankle Left knee pain Tight cast Cast discomfort Tibia/fibula fracture Encounter for laboratory testing for COVID-19 virus Renal colic on right side Pyelonephritis Hypertension Obstructive uropathy Left ureteral calculus Flank pain SIRS (systemic inflammatory response syndrome) Renal insufficiency Ureteral stent occlusion Hydronephrosis Contusion of coccyx Obesity (BMI 35.0-39.9 without comorbidity) Nephrolithiasis Diarrhea Hydronephrosis with urinary obstruction due to ureteral calculus Complicated UTI (urinary tract infection) Foot sprain Renal colic on left side Bruise Recurrent left lower quadrant abdominal pain Chronic pain Ovarian cyst Flank pain, acute Urinary tract infection Abscess after procedure Wound dehiscence, surgical Dehiscence of closure of skin Yeast dermatitis Surgical wound infection Cellulitis Abdominal pain Complex cyst of right ovary Cystitis Vomiting and diarrhea Epigastric pain Surgical History , 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) S/P ureteral stent placement Status post cystoscopy with ureteral stent placement Fracture of ankle, lateral malleolus, left, closed Fracture of tibial shaft, left, closed S/P unilateral salpingo-oophorectomy 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 , 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) Smoking Status: Never smoker second hand exposure: No alcohol intake: never counseling provided: none substance use type: denies use current occupational status: disabled Travel in the last 8 weeks: None household members: none housing: house 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 current occupational exposures/hazards: No caffeine: No Have you lived/traveled outside [place] in past 30 days?: No Contact w/someone who lives/traveled outside US past 30 days?: No Exposure to someone with infectious disease in past 14 days?: No Do you have a fever (greater than 100.4 F or 38 C)?: No Have you tested positive for COVID-19: No Exposed to someone with COVID-19 in past 14 days?: No Do you have a sore throat?: No Do you have a cough?: No Do you have any weakness?: No Do you have any diarrhea?: No Are you experiencing any unusual bleeding?: No Do you have any muscle aches/pain?: No Do you have any abdominal pain?: Yes Are you experiencing loss of taste or smell?: No Other 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 Have you received the Flu Vaccine for this season: No Have you received the Pneumonia Vaccine: No ROS Obtained: Yes Systems reviewed as appropriate & no additional complaints except as documented Physical Exam General General appearance: alert and in no apparent distress Respiratory Respiratory exam: Present normal lung sounds bilaterally Cardiovascular Cardiovascular exam: Present regular rate Neurological Exam Neurological exam: Present alert and oriented X3 Medical Decision Making Medical Records Medical records reviewed: Yes I reviewed the patient's medical records. Screening: Per USPSTF and CDC recommendations, given the prevalence of disease in our region, it is our hospital?s policy to screen for HIV and viral Hepatitis for all patients aged 18 and over and those with ongoing risk factors. Olu Inquiry Pt receiving controlled substance: No Vital Signs: 11/03/24 18:28 11/03/24 19:24 11/03/24 19:30 Temperature 98.7 F Temperature Source Temporal Artery Scan Pulse Rate 92 H 95 H Pulse Rate [Right] 98 H Respiratory Rate 18 14 Blood Pressure 199/106 H 190/110 H Blood Pressure [Right Arm] 202/127 H Blood Pressure Mean [Right Arm] 152 Blood Pressure Source [Right Arm] Automatic Cuff Blood Pressure Position Sitting Blood Pressure Position [Right Arm] Sitting 02 Sat by Pulse Oximetry 98 100 96 Oxygen Delivery Method Room Air Lab Data Lab results reviewed: Yes I reviewed the patient's lab results. Lab Results 11/03/24 18:35: Urine HCG, Qual Negative 11/03/24 18:42: Urine Color Yellow, Urine Appearance Cloudy, Urine pH 6.5, Ur Specific [place] 1.020, Urine Protein 2+ A, Urine Glucose (UA) Negative, Urine Ketones Negative, Urine Blood 3+ A, Urine Nitrate Negative, Urine Bilirubin Negative, Urine Urobilinogen 0.2, Ur Leukocyte Esterase 3+ A, Urine RBC 50-100, Urine WBC 20-50, Ur Squamous Epith Cells Occasional, Urine Bacteria 1+ 11/03/24 19:21: WBC 13.5 H, RBC 5.06, Hgb 13.7, Hct 42.5, MCV 84.0, MCH 27.1, MCHC 32.2, RDW 13.7, Plt Count 439 H, MPV 9.4, Neut % (Auto) 68.5, Lymph % (Auto) 21.3, [place] % (Auto) 6.8, Eos % (Auto) 2.1, Baso % (Auto) 0.4, Neut # (Auto) 9.3 H, Lymph # (Auto) 2.9, [place] # (Auto) 0.9, Eos # (Auto) 0.3, Baso # (Auto) 0.1, Sodium 139, Potassium 4.1, Chloride 105, Carbon Dioxide 26, Anion Gap 12.1, BUN 22 H, Creatinine 0.80, Estimated Creat Clear 99, Estimated GFR 80, Est GFR ( Amer) 97, Glucose 109 H, Calcium 9.3, Total Bilirubin 0.4, AST 26, ALT 25, Alkaline Phosphatase 75, Total Protein 7.7, Albumin 4.1, Globulin 3.6 H, Albumin/Globulin Ratio 1.1 11/03/24 19:21 11/03/24 19:21 Orders (Tests/Meds): ED MEDICATIONS Discontinued Medications Generic Name Dose Route Start Last Admin Trade Name Freq PRN Reason Stop Dose Admin Acetaminophen 1,000 mg 11/03/24 19:27 11/03/24 19:39 Acetaminophen 1,000mg/100ml Vial IV 11/03/24 19:28 Not Given ONCE ONE Hydromorphone HCl 0.5 mg 11/03/24 22:13 11/03/24 22:22 Hydromorphone 2mg/Ml Syringe IV 11/03/24 22:14 0.5 mg ONCE ONE Administration Iopamidol 75 ml 11/03/24 20:10 11/03/24 20:11 Iopamidol-370 (76%);100ml Bottle IV 11/03/24 20:11 75 ml ONCE ONE Administration Levofloxacin 750 mg 11/03/24 20:42 11/03/24 20:57 Levofloxacin 750 Mg Tablet PO 11/03/24 20:43 750 mg ONCE ONE Administration Ondansetron HCl 4 mg 11/03/24 22:13 11/03/24 22:22 Ondansetron 4mg/2ml Vial IV 11/03/24 22:14 4 mg ONCE ONE Administration Oxybutynin Chloride 5 mg 11/03/24 20:40 11/03/24 20:57 Oxybutynin 5mg Tab PO 11/03/24 20:41 5 mg ONCE ONE Administration Sodium Chloride 10 ml 11/03/24 20:10 11/03/24 20:11 Sodium Chloride 0.9% 10ml Syr (Rad Only) IV 11/03/24 20:11 10 ml ONCE ONE Administration ORDERS Category Date Time Status CT abdomen pelvis w con Stat Cat Scan 11/03/24 19:27 Completed CBC w/Auto Diff [Complete Blood Count Auto Diff] Stat Lab 11/03/24 19:21 Completed CMP [Comprehensive Metabolic Panel] Stat Lab 11/03/24 19:21 Completed Urinalysis and Microscopic Stat Lab 11/03/24 18:42 Completed Urine , HCG Qual. Stat Lab 11/03/24 18:35 Completed Blood Culture Stat Micro 11/03/24 20:05 Received Urine Culture Stat Micro 11/03/24 18:42 Received Medical Decision Narrative: In summary patient is a 39-year-old female who presents to the emergency department for evaluation of left flank pain. Patient is actually hypertensive with a blood pressure of 202/127 but a pulse of 98 with normal sinus rhythm on the bedside monitor breathing 18 times a minute at 98% on room air upon arrival, afebrile at 98.7. Physical exam is remarkable for mild CVA tenderness to percussion on the left negative on the right mild left-sided abdominal tenderness to palpation but no rebound or guarding or rigidity. Bowel sounds normal active.. Differential diagnosis includes obstructed stent versus kidney stone versus pyelonephritis versus abscess etc. Initial workup will be conducted with hematologic labs urinalysis CT scan abdomen pelvis. Initial interventions include Tylenol Toradol blood cultures. Initial workup reviewed by me shows that her white count is 13.5 absolute neutrophil count is 9.3 and the remainder of her hematologic labs are nonactionable. Urinalysis shows 2+ protein negative ketones 3+ blood nitrite negative leukocyte Estrace 3+ and microscopic exam shows 50-100 red blood cells 20-50 white blood cells occasional squamous epithelial cells and 1+ bacteria. My informal interpretation of her CT scan imaging shows that the double-J stent appears to be in normal position however patient still has persistent hydronephrosis but no evidence of obstructing stone currently.. Upon reevaluation patient reports no response to the initial intervention of Tylenol and Toradol so I have ordered her Zofran and Dilaudid to help reduce her pain. I have also started the patient on Levaquin giving her urinalysis findings as well as Ditropan for potential spastic pain. I have contacted [facility] to speak to the urology team on-call to come up with the plan as patient has significant social barriers to getting transport to however has a high risk stent in place. We have also reached out to Dr. Kaur of local urology and though he is not on-call he does perform cystoscopies and may be able to retrieve the stent if we are able to arrange this. Ultimately we were unable to reach Dr. Kaur as he does not normally take call which is expected and the [facility] urology service felt like that patient certainly did not meet emergent surgical criteria and they would not instrumentation her urologic tract with acute infection and would recommend IV antibiotics before retrieving stone and then stent. However they are on divert for nonsurgical emergencies. Given this I had an interactive discussion with hospital medicine here regarding patient LIZARRAGA findings and management. As the patient needs needs social support to arrange follow-up once she is discharged with, they will admit for social media campaign manager and case management consult in the morning. Critical Care Critical Care Time Critical Care Time: Yes Attestation: On 11/03/24, the high probability of a clinically significant, sudden or life threatening deterioration of the following system(s) required my full and direct attention, intervention and personal management. The time I documented below is in addition to time spent performing reported procedures but includes the following listed in this critical care notation. Total Time Total Critical Care Time: 35
[2024-11-03 19:24] VITALS: BP 199/106; PULSE 92; RESP 14; O2SAT 100
--- NOTE | 2024-11-03 19:27 | CT_ITS ---
PROCEDURE INFORMATION: Exam: CT Abdomen And Pelvis With Contrast Exam date and time: 11/03/2024 8:08 PM Age: 39 years old Clinical indication: Other: Ureteral stent since August, left flank pain TECHNIQUE: Imaging protocol: Computed tomography of the abdomen and pelvis with contrast. Radiation optimization: All CT scans at this facility use at least one of these dose optimization techniques: automated exposure control; mA and/or kV adjustment per patient size (includes targeted exams where dose is matched to clinical indication); or iterative reconstruction. Contrast material: ISOVUE; Contrast volume: 75 ml; Contrast route: IV; COMPARISON: CT ABDOMEN PELVIS W CON 10/06/2024 4:00 AM FINDINGS: Lungs: Lung bases are clear. Liver: A 12 mm indeterminate low-density lesion in the anterior right lobe of liver on image 31 of series 3 with a density of 50. This is stable dating back to 09/02/2023. Liver otherwise unremarkable. Gallbladder and biliary ducts: Status post cholecystectomy. No evident bile duct dilatation allowing for prior cholecystectomy. Pancreas: Normal. No ductal dilation. Spleen: Normal. No splenomegaly. Adrenal glands: Normal. No mass. Kidneys and ureters: Stable position of the left ureteral stent. [id number] left hydronephrosis to the UPJ level redemonstrated without significant change. Cluster of stones in the lower pole calyx on the left redemonstrated. Slight delayed enhancement on the left compared to the right again noted. Course and caliber of the left ureter unremarkable. Right kidney and ureter otherwise unremarkable with no obstructing stones or uropathy. Stomach and bowel: Extensive diverticula throughout the colon. Colon otherwise unremarkable with no evidence of diverticulitis. GI tract structures otherwise unremarkable with no evident wall thickening allowing for incomplete distention. Appendix: Appendix is normal. No evidence of appendicitis. Intraperitoneal space: Unremarkable. No free air. No significant fluid collection. Vasculature: Unremarkable. No abdominal aortic aneurysm. Lymph nodes: Unremarkable. No enlarged lymph nodes. Urinary bladder: Unremarkable as visualized. Reproductive: Hysterectomy. Bones/joints: Unremarkable. No acute fracture. Soft tissues: Small fat containing umbilical hernia redemonstrated. IMPRESSION: 1. Stable [id number] left-sided hydronephrosis to the UPJ level. Stable position of the left ureteral stent. 2. Indeterminate 12 mm low-density lesion in the right lobe of the liver stable dating back to 09/02/2023 most likely of no significance if no clinical risk factors for tumor.
--- NOTE | 2024-11-03 19:27 | PC.NURSE ---
provider at the bedside.
[2024-11-03 19:30] VITALS: BP 190/110; PULSE 95; O2SAT 96
[2024-11-03 19:33] LABS: Basophils # 0.1 K/mm3 (0-0.2); Basophils % 0.4 % (0.1-2.0); Eosinophils # 0.3 K/mm3 (0.0-0.4); Eosinophils % 2.1 % (0.1-12.0); Hematocrit 42.5 % (37.0-47.0); Hemoglobin 13.7 g/dL (12.2-16.2); Lymphocytes # 2.9 K/mm3 (0.7-4.5); Lymphocytes % 21.3 % (10-50); Mean Corpuscular HGB Conc 32.2 g/dL (31.8-35.4); Mean Corpuscular Hemoglobin 27.1 pg (27.0-31.2); Mean Platelet Volume 9.4 fl (7.4-10.4); Monocytes # 0.9 K/mm3 (0.1-1.0); Monocytes % 6.8 % (1.7-9.3); Neutrophils # 9.3 K/mm3 (1.8-7.8); Neutrophils % 68.5 % (37.0-80.0); Platelet Count 439 K/mm3 (142-424); Red Blood Count 5.06 M/mm3 (4.20-5.40); Red Cell Distribution Width 13.7 % (11.5-17.5); White Blood Count 13.5 K/mm3 (4.8-10.8)
[2024-11-03 19:34] LABS: Chloride 105 mmol/L (98-107)
[2024-11-03 19:35] LABS: Albumin Level 4.1 g/dl (3.5-5.0); Potassium 4.1 mmoL/L (3.5-5.1); Sodium 139 mmol/L (136-145)
[2024-11-03 19:37] LABS: Blood Urea Nitrogen 22 mg/dl (7-17); Creatinine Clearance Estimated 99 mL/min (50-200); Estimated Glomerular Filt Rate 80 ml/min (>60); GFR (African American) 97 ML/MIN (>60)
[2024-11-03 19:38] LABS: Urine Pregnancy, HCG Qual. Negative (Negative)
[2024-11-03 19:38] LABS: Alanine Aminotransferase 25 U/L (12-78); Albumin/Globulin Ratio 1.1 (1.1-1.8); Alkaline Phosphatase 75 U/L (38-126); Anion Gap 12.1 mEq/L (5-15); Aspartate Amino Transferase 26 U/L (14-36); Bilirubin,Total 0.4 mg/dl (0.2-1.3); Calcium 9.3 mg/dl (8.4-10.2); Carbon Dioxide 26 mmol/L (22.0-30.0); Globulin 3.6 g/dL (1.3-3.2); Glucose 109 mg/dl (74-100); Total Protein,Serum 7.7 g/dl (6.3-8.2)
--- NOTE | 2024-11-03 19:38 | PC.NURSE ---
This RN attempts to give IV Ofirmev that is ordered, pt lets this RN know that she took 1G g tylenol MANNEQUIN MOLDER, provider notified, medication not given. Medic at the bedside to attempt to obtain blood cultures.
--- NOTE | 2024-11-03 20:09 | PC.NURSE ---
blood cultures drawn and sent to lab
[2024-11-03] MEDS: IOPAMIDOL-370 (76%);100ML BOTTLE 75 ML IV (20:11)
[2024-11-03] MEDS: SODIUM CHLORIDE 0.9% 10ML SYR (RAD ONLY) 10 ML IV (20:11)
--- NOTE | 2024-11-03 20:56 | PC.NURSE ---
[facility] contacted regarding the need for ditropan that is not stocked in the ER pyxis.
[2024-11-03] MEDS: levoFLOXacin 750 MG TABLET PO (20:57)
[2024-11-03] MEDS: OXYBUTYNIN 5MG TAB 5 MG PO (20:57)
--- NOTE | 2024-11-03 22:04 | PC.NURSE ---
provider updating pt on POC. Pt Aox4, nad noted, rr even and non labored, skin pwd.
[2024-11-03] MEDS: ONDANSETRON 4MG/2ML VIAL 4 MG IV (22:22)
[2024-11-03] MEDS: HYDROMORPHONE 2MG/ML SYRINGE 0.5 MG IV (22:22)
--- NOTE | 2024-11-03 22:53 | PC.NURSE ---
attempt to call report, RN taking patient not available at this time to call this RN back.
--- NOTE | 2024-11-03 23:07 | PC.NURSE ---
report given to Mary PRADO on the floor
[2024-11-03 23:18] VITALS: BP 172/98; PULSE 93; RESP 16; TEMP 36.6; O2SAT 97
--- NOTE | 2024-11-03 23:28 | P.HP_ITS ---
History of Present Illness *Admission Date: 11/03/24 *Reason for visit:: Flank Pain *History of present illness: The patient is a 39-year-old female with a longstanding history of nephrolithiasis who presents with left flank pain. In August, following kidney stone removal at the [facility], she had a double-J stent placed with plans for subsequent removal. However, due to significant social challenges?including lack of personal transportation and repeated missed appointments?she did not have the stent removed as scheduled. Although she initially reported that she ?forgot about? the stent until the onset of pain today, a review of records from a September ER visit reveals that she had been informed of upcoming stent removal appointments, one of which she missed due to oversleeping, indicating a pattern of nonadherence. On presentation, her vital signs were significant for severe hypertension with a blood pressure of 202/127 mmHg, a pulse of 98 beats per minute, a respiratory rate of 18, and an oxygen saturation of 98% on room air; she was afebrile at 98.7?F. The physical exam was notable for mild left costovertebral angle tenderness and left-sided abdominal tenderness without rebound, guarding, or rigidity, with active and normal bowel sounds. Laboratory studies demonstrated a urinalysis with yellow, cloudy urine showing 2+ protein, 3+ blood, and 3+ leukocyte esterase; the microscopic examination revealed 50?100 red blood cells, 20?50 white blood cells, occasional squamous epithelial cells, and 1+ bacteria. Hematologic evaluation showed an elevated white blood cell count of 13.5 with an absolute neutrophil count of 9.3 and a platelet count of 439, supporting an inflammatory or infectious process. CT imaging of the abdomen and pelvis confirmed that the left ureteral stent remains in stable position. It revealed [id number] left hydronephrosis extending to the ureteropelvic junction, a cluster of stones in the lower pole calyx of the left kidney, and slight delayed enhancement of the left kidney compared to the right. The left ureter?s course and caliber were unremarkable, and the right kidney and ureter were normal with no obstructing stones or evidence of uropathy. Additionally, extensive diverticulosis was noted throughout the colon, without evidence of diverticulitis. Given these findings, the differential diagnosis includes an obstructed stent, recurrent kidney stones, pyelonephritis, or an abscess. Initial management in th e emergency department included pain control with Tylenol and Toradol, though due to inadequate relief, she subsequently received additional doses of Zofran and Dilaudid. Oral Levaquin was initiated in response to her urinalysis findings, and Ditropan was provided for potential spastic pain. Coordination with both the [facility] urology team and a local urologist was attempted; however, given that the service was on divert for nonemergent cases and feel this is stable with nonoccluded or migrating stent, they recommended treatment with antibiotics prior to any invasive intervention. nutritional services director and case management have been engaged to address her transportation issues and ensure proper outpatient follow-up for definitive stent retrieval and management of her recurrent nephrolithiasis. [facility] Disclaimer: The information contained in this section may have been updated after the patient was seen, as this information can be updated by other users. 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 (Updated 11/04/24 @ 15:59 by Stuart Braun MD) Sepsis Axillary adenopathy Morbid obesity with BMI of 40.0-44.9, adult Chews tobacco Chest pain Lesion of liver greater than 1 cm in diameter Pyelonephritis Diverticulitis Puncture wound of hand, left Elevated serum hCG in female, not Hypokalemia Pyelonephritis Urolithiasis Exacerbation of reactive airway disease Pneumonia CAP (community acquired pneumonia) Flu syndrome Bronchitis Kurtz splints Achilles tendinitis Hypokalemia COVID-19 virus infection Nausea and vomiting TMJ arthralgia Pancreatitis Anxiety Hypertension Class 3 obesity Ureteral calculus, right Sepsis Sciatica Dental abscess Right flank pain Cough Leg pain Fracture of medial malleolus, right, closed Reactive airway disease with wheezing Bronchitis Sinusitis Ureteral calculus Renal colic Kidney stone on left side Poison eric dermatitis Cellulitis of breast Left flank pain Pain and swelling of left ankle Ankle pain, left Pain and swelling of right ankle Left knee pain Tight cast Cast discomfort Tibia/fibula fracture Encounter for laboratory testing for COVID-19 virus Renal colic on right side Pyelonephritis Hypertension Obstructive uropathy Left ureteral calculus Flank pain SIRS (systemic inflammatory response syndrome) Renal insufficiency Ureteral stent occlusion Hydronephrosis Contusion of coccyx Obesity (BMI 35.0-39.9 without comorbidity) Nephrolithiasis Diarrhea Hydronephrosis with urinary obstruction due to ureteral calculus Complicated UTI (urinary tract infection) Foot sprain Renal colic on left side Bruise Recurrent left lower quadrant abdominal pain Chronic pain Ovarian cyst Flank pain, acute Urinary tract infection Abscess after procedure Wound dehiscence, surgical Dehiscence of closure of skin Yeast dermatitis Surgical wound infection Cellulitis Abdominal pain Complex cyst of right ovary Cystitis Vomiting and diarrhea Epigastric pain Surgical History S/P ureteral stent placement Status post cystoscopy with ureteral stent placement Fracture of ankle, lateral malleolus, left, closed Fracture of tibial shaft, left, closed S/P unilateral salpingo-oophorectomy Family History (Updated 11/03/24 @ 23:49 by Mary Garcia RN) No significant family history 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 (Updated 11/03/24 @ 23:49 by Mary Garcia RN) Smoking Status: Never smoker second hand exposure: No alcohol intake: never counseling provided: none substance use type: denies use current occupational status: disabled Travel in the last 8 weeks: None household members: none housing: house 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 current occupational exposures/hazards: No caffeine: No Have you lived/traveled outside [place] in past 30 days?: No Contact w/someone who lives/traveled outside US past 30 days?: No Exposure to someone with infectious disease in past 14 days?: No Do you have a fever (greater than 100.4 F or 38 C)?: No Have you tested positive for COVID-19: No Exposed to someone with COVID-19 in past 14 days?: No Do you have a sore throat?: No Do you have a cough?: No Do you have any weakness?: No Do you have any diarrhea?: No Are you experiencing any unusual bleeding?: No Do you have any muscle aches/pain?: No Do you have any abdominal pain?: Yes Are you experiencing loss of taste or smell?: No Other 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 Have you received the Flu Vaccine for this season: No Have you received the Pneumonia Vaccine: No Review of Systems Review of Systems Review of systems (narrative): 13 point review of systems negative except as listed in HPI Meds Home Medications and Allergies Home Medications ?Medication ?Instructions ?Recorded ?Confirmed ?Type No Known Home Medications 11/04/24 11/04/24 History New Prescriptions to Start Prescriptions: Allergies Allergy/AdvReac Type Severity Reaction Status Date / Time Penicillins Allergy Severe Hives Verified 06/22/23 20:51 gatifloxacin (From TEQUIN) Allergy Mild Verified 06/22/23 20:51 ketorolac (From TORADOL) Allergy Mild Verified 06/22/23 20:51 aztreonam (AZTREONAM) Allergy Unknown NA-NAUSEA/V Verified 06/22/23 20:51 OMITING cefaclor (CEFACLOR) Allergy Unknown Verified 06/22/23 20:51 codeine (CODEINE) Allergy Unknown BLEEDING Verified 06/22/23 20:51 OF EYES AND NOSE doxycycline (DOXYCYCLINE) Allergy Unknown Verified 06/22/23 20:51 midazolam (From VERSED) Allergy Unknown Verified 06/22/23 20:51 sulfamethoxazole (From Allergy Unknown Verified 06/22/23 20:51 BACTRIM) trimethoprim (From BACTRIM) Allergy Unknown Verified 06/22/23 20:51 ibuprofen Allergy Verified 06/22/23 20:51 tramadol Allergy Verified 06/22/23 20:51 Exam Data for Last 24 hours Vital signs and Labs for Last 24 Hours: Temp Pulse Resp BP Pulse Ox O2 Del Method 98 F 93 H 16 172/98 H 96 Room Air 11/03/24 23:18 11/03/24 23:18 11/03/24 23:18 11/03/24 23:18 11/03/24 19:30 11/03/24 23:18 Laboratory Results - last 24 hr 11/03/24 18:35: Urine HCG, Qual Negative 11/03/24 18:42: Urine Color Yellow, Urine Appearance Cloudy, Urine pH 6.5, Ur Specific Dr[place] 1.020, Urine Protein 2+ A, Urine Glucose (UA) Negative, Urine Ketones Negative, Urine Blood 3+ A, Urine Nitrate Negative, Urine Bilirubin Negative, Urine Urobilinogen 0.2, Ur Leukocyte Esterase 3+ A, Urine RBC 50-100, Urine WBC 20-50, Ur Squamous Epith Cells Occasional, Urine Bacteria 1+ 11/03/24 19:21: WBC 13.5 H, RBC 5.06, Hgb 13.7, Hct 42.5, MCV 84.0, MCH 27.1, MCHC 32.2, RDW 13.7, Plt Count 439 H, MPV 9.4, Neut % (Auto) 68.5, Lymph % (Auto) 21.3, Chicot % (Auto) 6.8, Eos % (Auto) 2.1, Baso % (Auto) 0.4, Neut # (Auto) 9.3 H, Lymph # (Auto) 2.9, [place]ot # (Auto) 0.9, Eos # (Auto) 0.3, Baso # (Auto) 0.1, Sodium 139, Potassium 4.1, Chloride 105, Carbon Dioxide 26, Anion Gap 12.1, BUN 22 H, Creatinine 0.80, Estimated Creat Clear 99, Estimated GFR 80, Est GFR ( Amer) 97, Glucose 109 H, Calcium 9.3, Total Bilirubin 0.4, AST 26, ALT 25, Alkaline Phosphatase 75, Total Protein 7.7, Albumin 4.1, Globulin 3.6 H, Albumin/Globulin Ratio 1.1 I & O for Last 24 hours: Intake & Output 10/31/24 11/01/24 11/02/24 11/03/24 23:59 23:59 23:59 23:59 Weight 66.224 kg Constitutional Constitutional: no acute distress and morbidly obese *Routine HEENT Exam Head: Present normocephalic Eye: Present EOMI and PERRL ENT: Present mucous membranes moist *Routine Neck Exam Neck: Present supple; Absent lymphadenopathy *Routine Respiratory Exam Respiratory: Present CTA bilaterally *Routine Cardiovascular Exam Cardiovascular: Present RRR *Routine Abdominal Exam Abdominal: Present soft and normoactive bowel sounds; Absent tenderness *Routine Rectal Exam Rectal:: deferred *Routine Genitalia Exam Genitalia:: deferred *Routine Extremities Exam Extremities: Absent cyanosis, clubbing or edema *Routine Skin Exam Skin: Present warm; Absent rash *Routine Neurological Exam Neurological: Present alert and oriented X3 Assessment and Plan *Assessment and plan (1) Sepsis: Status: Acute Category: Medical Code(s): A41.9 - Sepsis, unspecified organism (2) Pyelonephritis: Status: Acute Category: Medical Code(s): N12 - Tubulo-interstitial nephritis, not specified as acute or chronic (3) Complicated urinary tract infection: Status: Acute Category: Medical Code(s): N39.0 - Urinary tract infection, site not specified (4) Ureterolithiasis: Status: Acute Category: Medical Code(s): N20.1 - Calculus of ureter (5) Hydronephrosis: Status: Acute Category: Medical Code(s): N13.30 - Unspecified hydronephrosis (6) Infection associated with ureteral stent: Status: Acute Category: Medical Code(s): T83.592A - Infection and inflammatory reaction due to indwelling ureteral stent, initial encounter (7) Kidney stone: Status: Acute Category: Medical Code(s): N20.0 - Calculus of kidney (8) Lesion of right lobe of liver: Status: Acute Category: Medical Code(s): K76.9 - Liver disease, unspecified (9) Left flank pain: Status: Acute Category: Medical Code(s): R10.9 - Unspecified abdominal pain Plan Medical decision making: The patient is a 39-year-old female with a long history of nephrolithiasis who presents with left flank pain in the setting of a retained double-J stent that was placed in August following kidney stone removal at the [facility]. Her history is notable for multiple missed follow-up appointments due to significant social barriers, which has led to delayed stent removal. While s he initially reported ?forgetting about? the stent, prior records from a September ER visit document that she was well informed of her scheduled appointments?with at least one missed due to oversleeping?raising concerns about adherence. Her current presentation is complicated by severe hypertension (202/127?mmHg), and laboratory studies reveal a urinalysis with 2+ protein, 3+ blood, and 3+ leukocyte esterase, along with microscopic findings of 50?100 RBCs, 20?50 WBCs, and minimal bacteria, suggesting an inflammatory or infectious process. CT imaging demonstrates a stable left ureteral stent, jgcjjobn-hn-lsduwk hydronephrosis extending to the ureteropelvic junction, a cluster of stones in the left lower pole calyx, and slightly delayed enhancement of the left kidney compared to the right, without evidence of obstructive stones in the right kidney. Extensive colonic diverticulosis is noted without signs of acute diverticulitis. These findings raise concerns for stent-related complications (possibly stent obstruction), recurrent nephrolithiasis, and early pyelonephritis, all in the context of poor outpatient follow-up and significant social obstacles. Retained Double-J Ureteral Stent with Hydronephrosis and Nephrolithiasis * CT imaging shows a stable left ureteral stent with slhgybaz-qi-ekkanl hydronephrosis extending to the UPJ and a cluster of stones in the left lower pole calyx, with slight delayed enhancement of the left kidney. * History of nephrolithiasis and prior stone removal with stent placement; the retained stent likely contributing to recurrent stone formation and hydronephrosis. * Monitor renal function (serial creatinine, eGFR) and arrange expedited outpatient urology consultation for definitive stent removal and stone management (cystoscopy with potential lithotripsy). * Defer invasive procedures until any concurrent infection is controlled and the patient is hemodynamically stable Urinary Tract Infection/Pyelonephritis * Urinalysis demonstrates yellow, cloudy urine with 2+ protein, 3+ blood, and 3+ leukocyte esterase; microscopy shows 50?100 RBCs, 20?50 WBCs, and 1+ bacteria. * Elevated WBC count (13.5) with an absolute neutrophil count of 9.3 supports an inflammatory/infectious process. * Continue oral Levaquin therapy; obtain a urine culture with sensitivities and monitor for clinical improvement, considering escalation to IV antibiotics if deterioration occurs. Hypertension * Vital signs reveal severe hypertension (BP 202/127?mmHg), with a pulse of 98 and respiratory rate of 18; the patient is afebrile. * Hypertension may be exacerbated by pain, stress, and possibly underlying chronic hypertension. * Monitor blood pressure frequently, adjust antihypertensive medications for gradual reduction, and evaluate for signs of hypertensive end-organ damage Social Barriers and Follow-Up Compliance * The patient has significant social barriers, including lack of transportation and a history of missed appointments, contributing to delayed stent removal and suboptimal follow-up. * Engage psychosocial rehabilitation counselor and case management immediately to address these issues and coordinate a comprehensive outpatient care plan, including timely follow-up with urology and primary care. Disposition * Admit the patient for continued management, observation, and coordination of care. * Maintain pain control, blood pressure management, and monitor response to oral Levaquin during admission. * Ensure urology consultation is in place for definitive stent removal and stone management once the infection is controlled. * nutritional services director and case management to assist with transportation and compliance, with clear follow-up appointments scheduled upon discharge. Rounded on patient after nurse practitioner. Personally examined and interviewed patient. Agree with exam findings and care plan as documented. Patient meeting sepsis criteria with leukocytosis, tachycardia, suspected pyelonephritis given flank pain and retained ureteral stent. Having difficulty with pain control. Initiated on oral opiates with oxycodone and IV Dilaudid. Monitoring for toxicity. Repeat CBC, CMP, magnesium ordered for the morning. Urine culture pending. Continue broad-spectrum antibiotics with levofloxacin 750 mg daily.
--- NOTE | 2024-11-03 23:31 | PC.NURSE ---
pt arrived to floor from ed via wheelchair at 2330.
[2024-11-04] VITALS: BP 133/97; PULSE 96; RESP 18; TEMP 36.9; O2SAT 100
[2024-11-04] MEDS: LACTATED RINGERS 1000ML 1,000 ML 100 ML IV ×3 (00:06→19:29)
[2024-11-04] MEDS: SODIUM CHLORIDE 0.9% 10ML FLUSH SYRINGE 10 ML IV (00:06)
[2024-11-04] MEDS: MORPHINE 2MG/ML SYRINGE 2 MG IV (00:07)
[2024-11-04] MEDS: HYDROMORPHONE 2MG/ML SYRINGE 0.5 MG IV ×2 (01:43→05:59)
[2024-11-04] MEDS: ACETAMINOPHEN 325MG TAB 650 MG PO (02:53)
[2024-11-04 04:00] VITALS: BMI 26.9
[2024-11-04 04:05] VITALS: BP 154/91; PULSE 91; RESP 19; TEMP 36.6; O2SAT 96
--- NOTE | 2024-11-04 04:25 | PC.NURSE ---
Pt. is alert and orientated x 4. Pt is on room air. Pt. was admitted from the ED last night for UTI. Pt. has had multiple kidney stones, had a left renal stent placed at in August. Pt. missed her follow up appointments due to no transportation. Pt. admitted here for antibiotic therapy and pain control. Pt. has a right upper chest medi-port that is accessed. IV fluids infusing. Pt. c/o pain to left low abdomen, left falnk and back area. Pt. medicated for pain per NOV. Pt. ambulatory to bathroom with standby assist. VSS Personal items and call armenta in reach.
[2024-11-04 08:00] VITALS: BP 199/111; PULSE 97; RESP 18; TEMP 36.6; O2SAT 97
[2024-11-04] MEDS: OXYCODONE 5MG W/APAP 325MG TABLET 1 EACH PO ×2 (09:00→19:27)
[2024-11-04 10:11] LABS: Basophils % 0.2 % (0.1-2.0); Eosinophils # 0.3 K/mm3 (0.0-0.4); Eosinophils % 2.5 % (0.1-12.0); Hematocrit 40.5 % (37.0-47.0); Hemoglobin 12.9 g/dL (12.2-16.2); Lymphocytes # 3.1 K/mm3 (0.7-4.5); Lymphocytes % 23.9 % (10-50); Mean Corpuscular HGB Conc 31.9 g/dL (31.8-35.4); Mean Corpuscular Hemoglobin 27.5 pg (27.0-31.2); Mean Corpuscular Volume 86.4 fl (81-99); Mean Platelet Volume 9.4 fl (7.4-10.4); Neutrophils # 8.4 K/mm3 (1.8-7.8); Neutrophils % 64.6 % (37.0-80.0); Platelet Count 442 K/mm3 (142-424); Red Blood Count 4.69 M/mm3 (4.20-5.40)
[2024-11-04 10:28] LABS: Chloride 106 mmol/L (98-107); Sodium 140 mmol/L (136-145)
[2024-11-04 10:29] LABS: Potassium 4.4 mmoL/L (3.5-5.1)
[2024-11-04 10:32] LABS: Anion Gap 10.4 mEq/L (5-15); Blood Urea Nitrogen 24 mg/dl (7-17); Carbon Dioxide 28 mmol/L (22.0-30.0); Creatinine Clearance Estimated 61 mL/min (50-200); Estimated Glomerular Filt Rate 46 ml/min (>60); GFR (African American) 55 ML/MIN (>60); Glucose 130 mg/dl (74-100); Magnesium 1.9 mg/dl (1.6-2.3)
[2024-11-04] MEDS: CARVEDILOL 12.5MG TABLET 12.5 MG PO ×2 (11:21→21:40)
--- NOTE | 2024-11-04 11:28 | PC.NURSE ---
pt. refused iv pain medication and md aware.
[2024-11-04 12:00] VITALS: BP 147/98; PULSE 91; RESP 18; TEMP 36.4; O2SAT 96
[2024-11-04] MEDS: HYDROMORPHONE 2MG/ML SYRINGE 1 MG IV (14:36)
--- NOTE | 2024-11-04 15:03 | PC.NURSE ---
Aox 4, up ad rizwana, R chest port with LR @100 ML/HR, 98% ra, consult cm, regular diet, pain meds given several times during shift, awaiting a bed at [place].
--- NOTE | 2024-11-04 15:52 | P.PN_ITS ---
Subjective *Date: 11/04/24 *Time: 16:01 Interval history: Remains afebrile overnight. Significant flank pain on left side. Poor control overnight. No nausea or vomiting. Denies chest pain or shortness of breath Medical Exam Vital signs and Labs for Last 24 Hours: Vital Signs Temp Pulse Pulse Resp BP BP Pulse Ox 11/04/24 15:00 11/04/24 12:00 97.6 F 91 H 18 147/98 H 96 11/04/24 10:34 11/04/24 09:00 11/04/24 08:00 11/04/24 08:00 97.9 F 97 H 18 199/111 H 97 11/04/24 07:00 11/04/24 05:00 11/04/24 04:05 97.9 F 91 H 19 154/91 H 96 11/04/24 03:00 11/04/24 01:00 11/04/24 00:00 98.4 F 96 H 18 133/97 H 100 11/03/24 23:55 11/03/24 23:55 11/03/24 23:18 98 F 93 H 16 172/98 H 11/03/24 19:30 95 H 190/110 H 96 11/03/24 19:24 92 H 14 199/106 H 100 11/03/24 18:28 98.7 F 98 H 18 202/127 H 98 O2 Del Method 11/04/24 15:00 Room Air 11/04/24 12:00 Room Air 11/04/24 10:34 Room Air 11/04/24 09:00 Room Air 11/04/24 08:00 Room Air 11/04/24 08:00 Room Air 11/04/24 07:00 Room Air 11/04/24 05:00 Room Air 11/04/24 04:05 Room Air 11/04/24 03:00 Room Air 11/04/24 01:00 Room Air 11/04/24 00:00 Room Air 11/03/24 23:55 Room Air 11/03/24 23:55 Room Air 11/03/24 23:18 Room Air 11/03/24 19:30 11/03/24 19:24 Room Air 11/03/24 18:28 Intake and Output 11/03/24 11/04/24 11/04/24 23:59 07:59 15:59 Intake Total 240 / 640 400 / 640 Output Total 0 / 0 Balance 240 / 640 400 / 640 Intake: Intake, Oral Amount 240 / 640 400 / 640 Intake, Total IV Amount 0 / 0 Lactated Ringers 1000ML 1,000 0 / 0 ml @ 100 mls/hr IV .Q10H [facility] Rx #:[id number] Output: Output, Urine Amount 0 / 0 Other: Number of Unmeasured Voids 1 Weight 66.224 kg 66.224 kg Patient Weight 11/04/24 23:59 Weight 66.224 kg Laboratory Results - last 24 hr 11/03/24 18:35: Urine HCG, Qual Negative 11/03/24 18:42: Urine Color Yellow, Urine Appearance Cloudy, Urine pH 6.5, Ur Specific [place] 1.020, Urine Protein 2+ A, Urine Glucose (UA) Negative, Urine Ketones Negative, Urine Blood 3+ A, Urine Nitrate Negative, Urine Bilirubin Negative, Urine Urobilinogen 0.2, Ur Leukocyte Esterase 3+ A, Urine RBC 50-100, Urine WBC 20-50, Ur Squamous Epith Cells Occasional, Urine Bacteria 1+ 11/03/24 19:21: WBC 13.5 H, RBC 5.06, Hgb 13.7, Hct 42.5, MCV 84.0, MCH 27.1, MCHC 32.2, RDW 13.7, Plt Count 439 H, MPV 9.4, Neut % (Auto) 68.5, Lymph % (Auto) 21.3, [place] % (Auto) 6.8, Eos % (Auto) 2.1, Baso % (Auto) 0.4, Neut # (Auto) 9.3 H, Lymph # (Auto) 2.9, [place] # (Auto) 0.9, Eos # (Auto) 0.3, Baso # (Auto) 0.1, Sodium 139, Potassium 4.1, Chloride 105, Carbon Dioxide 26, Anion Gap 12.1, BUN 22 H, Creatinine 0.80, Estimated Creat Clear 99, Estimated GFR 80, Est GFR ( Amer) 97, Glucose 109 H, Calcium 9.3, Total Bilirubin 0.4, AST 26, ALT 25, Alkaline Phosphatase 75, Total Protein 7.7, Albumin 4.1, Globulin 3.6 H, Albumin/Globulin Ratio 1.1 11/04/24 10:00: WBC 13.0 H, RBC 4.69, Hgb 12.9, Hct 40.5, MCV 86.4, MCH 27.5, MC HC 31.9, RDW 14.0, Plt Count 442 H, MPV 9.4, Neut % (Auto) 64.6, Lymph % (Auto) 23.9, Garden % (Auto) 8.0, Eos % (Auto) 2.5, Baso % (Auto) 0.2, Neut # (Auto) 8.4 H, Lymph # (Auto) 3.1, Garden # (Auto) 1.0, Eos # (Auto) 0.3, Baso # (Auto) 0.0, Sodium 140, Potassium 4.4, Chloride 106, Carbon Dioxide 28, Anion Gap 10.4, BUN 24 H, Creatinine 1.30 H D, Estimated Creat Clear 61, Estimated GFR 46 L, Est GFR ( Amer) 55 L D, Glucose 130 H, Calcium 9.0, Magnesium 1.9 I & O for Labs for Last 24 Hours: Intake & Output 11/01/24 11/02/24 11/03/24 11/04/24 23:59 23:59 23:59 23:59 Intake Total 640 / 640 Output Total 0 / 0 Balance 640 / 640 Weight 66.224 kg 66.224 kg Constitutional: Present mild distress, obese, chronically ill appearing and cooperative Head: Present atraumatic and normocephalic ENT: Present normal exam Respiratory: Present normal respiratory effort; Absent rhonchi, wheezes or crackles Cardiac: Present Regular Rhythm and Tachycardia GI: Present soft and normal bowel sounds; Absent distention or tenderness Comments:: Left CVA tenderness to percussion. Patient jumped out of the bed, negative CVA tenderness on right Extremities: Present normal inspection and full ROM Skin: Present intact; Absent erythema Neuro: Present Grossly Intact, alert, awake, oriented x 3 and moves all extremities Assessment and Plan *Assessment and plan (1) Sepsis: Status: Acute Category: Medical Code(s): A41.9 - Sepsis, unspecified organism (2) Pyelonephritis: Status: Acute Category: Medical Code(s): N12 - Tubulo-interstitial nephritis, not specified as acute or chronic (3) Complicated urinary tract infection: Status: Acute Category: Medical Code(s): N39.0 - Urinary tract infection, site not specified (4) Ureterolithiasis: Status: Acute Category: Medical Code(s): N20.1 - Calculus of ureter (5) Hydronephrosis: Status: Acute Category: Medical Code(s): N13.30 - Unspecified hydronephrosis (6) Infection associated with ureteral stent: Status: Acute Category: Medical Code(s): T83.592A - Infection and inflammatory reaction due to indwelling ureteral stent, initial encounter (7) Kidney stone: Status: Acute Category: Medical Code(s): N20.0 - Calculus of kidney (8) Lesion of right lobe of liver: Status: Acute Category: Medical Code(s): K76.9 - Liver disease, unspecified (9) Left flank pain: Status: Acute Category: Medical Code(s): R10.9 - Unspecified abdominal pain Plan The patient is a 39-year-old female with a long history of nephrolithiasis who presents with left flank pain in the setting of a retained double-J stent that was placed in August following kidney stone removal at the [facility]. Her history is notable for multiple missed follow-up appointments due to significant social barriers, which has led to delayed stent removal. While she initially reported ?forgetting about? the stent, prior records from a September ER visit document that she was well informed of her scheduled appointments?with at least one missed due to oversleeping?raising concerns about adherence. Her current presentation is complicated by severe hypertension (202/127?mmHg), and laboratory studies reveal a urinalysis with 2+ protein, 3+ blood, and 3+ leukocyte esterase, along with microscopic findings of 50?100 RBCs, 20?50 WBCs, and minimal bacteria, suggesting an inflammatory or infectious process. CT imaging demonstrates a stable left ureteral stent, [id number] hydronephrosis extending to the ureteropelvic junction, a cluster of stones in the left lower pole calyx, and slightly delayed enhancement of the left kidney compared to the right, without evidence of obstructive stones in the right kidney. Extensive colonic diverticulosis is noted without signs of acute diverticulitis. These findings raise concerns for stent-related complications (possibly stent obstruction), recurrent nephrolithiasis, and early pyelonephritis, all in the context of poor outpatient follow-up and significant social obstacles. Retained Double-J Ureteral Stent with Hydronephrosis and Nephrolithiasis Pyelonephritis Sepsis PAUL -Meeting sepsis criteria with leukocytosis, tachycardia, infection associated with ureteral stent. White count 13 today. Not significantly better. Remains afebrile. Continue Levaquin 750 mg daily -Urine culture pending. Repeat CBC, CMP, magnesium ordered for the morning -Bump in creatinine with BUN 24, creatinine 1.3. Concerning for slightly worsening kidney function and development of PAUL. Concern may be related to obstruction as per my review of CT, she still has moderate to severe hydronephrosis on the left side even with stent present. -Contacted [facility] for possible transfer. Discussed case with hospitalist and urologist, not excepted in transfer at this time, recommended continuing continuity of care with her urologist at . Patient has not seen them since August (when stent was placed). -[facility] Reached out to [facility], discussed with their intake nurse. They do not conduct inpatient to inpatient transfers over the weekend. Will reach back out on Wednesday for possible transfer if patient remains admitted with no improvement in symptoms -Continue pain control with oxycodone 5 mg as needed every 4 hours. Will give 1 mg Dilaudid IV once due to persistent pain. Patient has allergy to ibuprofen and Toradol but says she can tolerate naproxen. Will initiate Naprosyn 500 mg p.o. twice daily for anti-inflammatory component and renal colic. - Initiate tamsulosin 0.4 mg daily Hypertension -Suspect component of pain as well as uncontrolled hypertension. Remains elevated at 199/111 this morning. Initiate carvedilol 12.5 mg twice daily given PAUL. Social Barriers and Follow-Up Compliance - The patient has significant social barriers, including lack of transportation and a history of missed appointments, contributing to delayed stent removal and suboptimal follow-up. - Engage social insurance analyst and case management immediately to address these issues and coordinate a comprehensive outpatient care plan, including timely follow-up with urology and primary care. Full code Regular diet Lovenox 40 mg subcu
[2024-11-04 16:00] VITALS: BP 141/83; PULSE 80; RESP 18; TEMP 36.8; O2SAT 95
[2024-11-04 19:33] VITALS: BP 146/77; PULSE 87; RESP 18; TEMP 36.6; O2SAT 94
[2024-11-04] MEDS: NAPROXEN 500MG TABLET 500 MG PO (21:37)
[2024-11-04] MEDS: levoFLOXacin 750 MG TABLET PO (21:38)
[2024-11-04] MEDS: TAMSULOSIN 0.4MG CAPSULE 0.4 MG PO (21:38)
[2024-11-05] VITALS: BP 135/91; PULSE 81; RESP 18; TEMP 36.5; O2SAT 94
[2024-11-05] MEDS: OXYCODONE 5MG W/APAP 325MG TABLET 1 EACH PO ×5 (01:29→21:46)
[2024-11-05 04:00] VITALS: BP 115/69; PULSE 84; RESP 18; TEMP 36.8; O2SAT 94; BMI 51.3
--- NOTE | 2024-11-05 06:55 | PC.NURSE ---
Pt. alert and orientated x 4. Pt. on room air. Pt. has constant c/o left sided abdominal, left flank and left back pain. . Pt. unhappy with pain med regime. she says they are not helping the pain. Pt. also c/o feeling very itchy. Pt. sleeping on and off this shift. requested to stop IV fluids. she said her hands and feet feel tight. VSS. Personal items and call armenta in reach.
[2024-11-05 08:00] VITALS: BP 133/90; PULSE 75; RESP 20; TEMP 36.6; O2SAT 95
[2024-11-05] MEDS: CARVEDILOL 12.5MG TABLET 12.5 MG PO ×2 (08:46→20:31)
[2024-11-05] MEDS: NAPROXEN 500MG TABLET 500 MG PO (08:50)
[2024-11-05] MEDS: ENOXAPARIN 60MG/0.6ML SYRINGE 60 MG SUBCUT ×2 (09:14→20:31)
[2024-11-05 09:44] LABS: Basophils % 0.4 % (0.1-2.0); Eosinophils # 0.3 K/mm3 (0.0-0.4); Eosinophils % 3.1 % (0.1-12.0); Hematocrit 39.2 % (37.0-47.0); Hemoglobin 12.2 g/dL (12.2-16.2); Lymphocytes # 2.7 K/mm3 (0.7-4.5); Lymphocytes % 25.9 % (10-50); Mean Corpuscular HGB Conc 31.1 g/dL (31.8-35.4); Mean Corpuscular Volume 86.7 fl (81-99); Mean Platelet Volume 9.7 fl (7.4-10.4); Monocytes # 0.7 K/mm3 (0.1-1.0); Monocytes % 6.3 % (1.7-9.3); Neutrophils # 6.5 K/mm3 (1.8-7.8); Neutrophils % 63.4 % (37.0-80.0); Platelet Count 373 K/mm3 (142-424); Red Blood Count 4.52 M/mm3 (4.20-5.40); White Blood Count 10.3 K/mm3 (4.8-10.8)
[2024-11-05 09:51] LABS: Chloride 106 mmol/L (98-107); Potassium 4.3 mmoL/L (3.5-5.1); Sodium 139 mmol/L (136-145)
[2024-11-05 09:54] LABS: Anion Gap 9.3 mEq/L (5-15); Blood Urea Nitrogen 27 mg/dl (7-17); Calcium 8.7 mg/dl (8.4-10.2); Carbon Dioxide 28 mmol/L (22.0-30.0); Creatinine Clearance Estimated 52 mL/min (50-200); Estimated Glomerular Filt Rate 55 ml/min (>60); GFR (African American) 67 ML/MIN (>60); Glucose 134 mg/dl (74-100)
[2024-11-05 12:00] VITALS: BP 132/65; PULSE 96; RESP 18; TEMP 36.7; O2SAT 96
--- NOTE | 2024-11-05 14:01 | P.PN_ITS ---
Subjective *Date: 11/05/24 *Time: 14:48 Interval history: Still having some left flank pain. Denies any dysuria. No nausea or vomiting. No shortness of breath or fevers overnight. Tolerating p.o. intake. Medical Exam Vital signs and Labs for Last 24 Hours: Vital Signs Temp Pulse Resp BP Pulse Ox O2 Del Method 11/05/24 13:00 Room Air 11/05/24 12:00 98.1 F 96 H 18 132/65 96 Room Air 11/05/24 11:00 Room Air 11/05/24 09:00 Room Air 11/05/24 08:00 Room Air 11/05/24 08:00 97.8 F 75 20 133/90 95 Room Air 11/05/24 07:00 Room Air 11/05/24 05:00 Room Air 11/05/24 04:00 98.3 F 84 18 115/69 94 L Room Air 11/05/24 03:00 Room Air 11/05/24 01:00 Room Air 11/05/24 00:00 97.7 F 81 18 135/91 H 94 L Room Air 11/04/24 23:00 Room Air 11/04/24 21:00 Room Air 11/04/24 20:00 Room Air 11/04/24 19:33 97.8 F 87 18 146/77 H 94 L Room Air 11/04/24 18:03 Room Air 11/04/24 16:29 Room Air 11/04/24 16:00 98.2 F 80 18 141/83 H 95 Room Air 11/04/24 15:00 Room Air Intake and Output 11/04/24 11/05/24 11/05/24 23:59 07:59 15:59 Intake Total 1100 / 4274 19634 960 / 2924 Output Total 0 / 0 0 / 0 Balance 1099 / 4274 1963 2924 960 / 2924 Intake: Intake, Oral Amount 999 / 1959 960 / 1960 Intake, Total IV Amount 1099 964 / 964 Lactated Ringers 1000ML 1,000 1099 / 2063 964 / 964 ml @ 100 mls/hr IV .Q10H [facility] Rx #:[id number] Output: Output, Urine Amount 0 / 0 0 / 0 Other: Number of Unmeasured Voids 1 1 Weight 126.6 kg Patient Weight 11/05/24 23:59 Weight 126.6 kg Laboratory Results - last 24 hr 11/05/24 09:09: WBC 10.3, RBC 4.52, Hgb 12.2, Hct 39.2, MCV 86.7, MCH 27.0, MCHC 31.1 L, RDW 14.0, Plt Count 373, MPV 9.7, Neut % (Auto) 63.4, Lymph % (Auto) 25.9, [place] % (Auto) 6.3, Eos % (Auto) 3.1, Baso % (Auto) 0.4, Neut # (Auto) 6.5, Lymph # (Auto) 2.7, [place] # (Auto) 0.7, Eos # (Auto) 0.3, Baso # (Auto) 0.0, Sodium 139, Potassium 4.3, Chloride 106, Carbon Dioxide 28, Anion Gap 9.3, BUN 27 H, Creatinine 1.10 H, Estimated Creat Clear 52, Estimated GFR 55 L, Est GFR ( Amer) 67 D, Glucose 134 H, Calcium 8.7 I & O for Labs for Last 24 Hours: Intake & Output 11/02/24 11/03/24 11/04/24 11/05/24 23:59 23:59 23:59 23:59 Intake Total 2310 / 4274 2924 / 2924 Output Total 0 / 0 0 / 0 Balance 2310 / 4274 2924 / 2924 Weight 66.224 kg 66.224 kg 126.6 kg Microbiology Reports for the Last 24 Hours: Microbiology 11/03/24 18:42 Urine,Clean Catch Urine Culture - Preliminary 11/03/24 20:00 Blood Blood Culture - Preliminary NO GROWTH AFTER 24 HOURS 11/03/24 20:05 Blood Blood Culture - Preliminary NO GROWTH AFTER 24 HOURS Constitutional: Present mild distress, obese, chronically ill appearing and cooperative Head: Present atraumatic and normocephalic ENT: Present normal exam Respiratory: Present normal respiratory effort; Absent rhonchi, wheezes or crackles Cardiac: Present Regular Rhythm and Tachycardia GI: Present soft and normal bowel sounds; Absent distention or tenderness Comments:: Left CVA tenderness to percussion. Patient jumped out of the bed, negative CVA tenderness on right Extremities: Present normal inspection and full ROM Skin: Present intact; Absent erythema Neuro: Present Grossly Intact, alert, awake, oriented x 3 and moves all extremities Assessment and Plan *Assessment and plan (1) Sepsis: Status: Acute Category: Medical Code(s): A41.9 - Sepsis, unspecified organism (2) Pyelonephritis: Status: Acute Category: Medical Code(s): N12 - Tubulo-interstitial nephritis, not specified as acute or chronic (3) Complicated urinary tract infection: Status: Acute Category: Medical Code(s): N39.0 - Urinary tract infection, site not specified (4) Ureterolithiasis: Status: Acute Category: Medical Code(s): N20.1 - Calculus of ureter (5) Hydronephrosis: Status: Acute Category: Medical Code(s): N13.30 - Unspecified hydronephrosis (6) Infection associated with ureteral stent: Status: Acute Category: Medical Code(s): T83.592A - Infection and inflammatory reaction due to indwelling ureteral stent, initial encounter (7) Kidney stone: Status: Acute Category: Medical Code(s): N20.0 - Calculus of kidney (8) Lesion of right lobe of liver: Status: Acute Category: Medical Code(s): K76.9 - Liver disease, unspecified (9) Left flank pain: Status: Acute Category: Medical Code(s): R10.9 - Unspecified abdominal pain Plan The patient is a 39-year-old female with a long history of nephrolithiasis who presents with left flank pain in the setting of a retained double-J stent that was placed in August following kidney stone removal at the [facility]. Her history is notable for multiple missed follow-up appointments due to significant social barriers, which has led to delayed stent removal. While she initially reported ?forgetting about? the stent, prior records from a September ER visit document that she was well informed of her scheduled appointments?with at least one missed due to oversleeping?raising concerns about adherence. Her current presentation is complicated by severe hypertension (202/127?mmHg), and laboratory studies reveal a urinalysis with 2+ protein, 3+ blood, and 3+ leukocyte esterase, along with microscopic findings of 50?100 RBCs, 20?50 WBCs, and minimal bacteria, suggesting an inflammatory or infectious process. CT imaging demonstrates a stable left ureteral stent, [id number] hydronephrosis extending to the ureteropelvic junction, a cluster of stones in the left lower pole calyx, and slightly delayed enhancement of the left kidney compared to the right, without evidence of obstructive stones in the right kidney. Extensive colonic diverticulosis is noted without signs of acute diverticulitis. These findings raise concerns for stent-related complications (possibly stent obstruction), recurrent nephrolithiasis, and early pyelonephritis, all in the context of poor outpatient follow-up and significant social obstacles. Retained Double-J Ureteral Stent with Hydronephrosis and Nephrolithiasis Pyelonephritis Sepsis PAUL -Meeting sepsis criteria with leukocytosis, tachycardia, infection associated with ureteral stent. White count normalized today at 10. Remains afebrile. Continue Levaquin 750 mg daily -Urine culture pending. Repeat CBC, CMP, magnesium ordered for the morning -Kidney function with BUN 27, creatinine 1.1. Slight improvement from yesterday. -Contacted [facility] on 11/04, not accepted for transfer -Will have case management assist with resources support in the morning. -Reached out to the [facility] on 11/04, not conducting inpatient to inpatient transfers over the weekend. Will reach out to the [facility] again tomorrow. -Continue pain control with oxycodone 5 mg as needed every 4 hours. Continue naproxen 500 mg twice daily. -Continue tamsulosin 0.4 mg daily Hypertension -Suspect component of pain as well as uncontrolled hypertension. Blood pressure better today 132/65. Continue carvedilol 12.5 mg twice daily given PAUL. Social Barriers and Follow-Up Compliance - The patient has significant social barriers, including lack of transportation and a history of missed appointments, contributing to delayed stent removal and suboptimal follow-up. - Engage social service coordinator and case management immediately to address these issues and coordinate a comprehensive outpatient care plan, including timely follow-up with urology and primary care. Full code Regular diet Lovenox 40 mg subcu
[2024-11-05 16:00] VITALS: BP 139/91; PULSE 82; RESP 20; TEMP 36.6; O2SAT 96
--- NOTE | 2024-11-05 18:03 | PC.NURSE ---
pt is a/ox4, remains on RA. has c/o pain throughout shift, treated per MAR. refused LR and said she only wants is sometimes. patients PO intake is adequate. up ad rizwana. no further requests at this time.
[2024-11-05 19:23] VITALS: BMI 51.3
[2024-11-05 19:25] VITALS: BP 145/97; PULSE 87; RESP 20; TEMP 36.6; O2SAT 97
[2024-11-05] MEDS: SENNOSIDES 8.6MG/DOCUSATE 50MG TABLET 1 TAB PO (19:49)
[2024-11-05] MEDS: levoFLOXacin 750 MG TABLET PO (20:31)
[2024-11-05] MEDS: TAMSULOSIN 0.4MG CAPSULE 0.4 MG PO (20:31)
[2024-11-05] MEDS: LACTATED RINGERS 1000ML 1,000 ML 100 ML IV (20:40)
[2024-11-06] VITALS: BP 137/78; PULSE 90; RESP 18; TEMP 36.6; O2SAT 97
[2024-11-06] MEDS: NAPROXEN 500MG TABLET 500 MG PO ×2 (01:24→15:18)
[2024-11-06] MEDS: OXYCODONE 5MG W/APAP 325MG TABLET 1 EACH PO ×4 (02:27→15:18)
[2024-11-06 04:00] VITALS: BP 160/90; PULSE 85; RESP 18; TEMP 36.8; O2SAT 95; BMI 51.3
[2024-11-06] MEDS: OXYBUTYNIN 5MG TAB 5 MG PO (05:48)
--- NOTE | 2024-11-06 06:49 | PC.NURSE ---
Pt. alert and orientated x 4. Pt. on room air. Pt. c/o left abdominal, left flank and left back pain. Pt. medicated for pain with minimal relief. Pt. states that her stent is hurting her. She is unhappy that we are not helping her pain and fixing the problem. Pt. awake most of the night. Pt. did not sleep much overnight. VSS. Personal items and call armenta in reach.
[2024-11-06 06:53] LABS: Basophils % 0.3 % (0.1-2.0); Eosinophils # 0.5 K/mm3 (0.0-0.4); Eosinophils % 4.5 % (0.1-12.0); Hematocrit 38.7 % (37.0-47.0); Hemoglobin 12.1 g/dL (12.2-16.2); Lymphocytes # 2.3 K/mm3 (0.7-4.5); Lymphocytes % 23.1 % (10-50); Mean Corpuscular HGB Conc 31.3 g/dL (31.8-35.4); Mean Corpuscular Hemoglobin 27.6 pg (27.0-31.2); Mean Corpuscular Volume 88.4 fl (81-99); Mean Platelet Volume 9.6 fl (7.4-10.4); Monocytes # 0.7 K/mm3 (0.1-1.0); Monocytes % 6.7 % (1.7-9.3); Neutrophils # 6.4 K/mm3 (1.8-7.8); Neutrophils % 64.9 % (37.0-80.0); Platelet Count 341 K/mm3 (142-424); Red Blood Count 4.38 M/mm3 (4.20-5.40); Red Cell Distribution Width 14.1 % (11.5-17.5); White Blood Count 9.9 K/mm3 (4.8-10.8)
[2024-11-06 06:59] LABS: Chloride 105 mmol/L (98-107); Potassium 4.3 mmoL/L (3.5-5.1); Sodium 136 mmol/L (136-145)
[2024-11-06 07:02] LABS: Blood Urea Nitrogen 24 mg/dl (7-17); Creatinine Clearance Estimated 57 mL/min (50-200); Estimated Glomerular Filt Rate 62 ml/min (>60); GFR (African American) 75 ML/MIN (>60)
[2024-11-06 07:03] LABS: Anion Gap 7.3 mEq/L (5-15); Calcium 8.3 mg/dl (8.4-10.2); Carbon Dioxide 28 mmol/L (22.0-30.0); Glucose 126 mg/dl (74-100)
[2024-11-06 08:00] VITALS: BP 125/83; PULSE 91; RESP 18; TEMP 36.8; O2SAT 96
[2024-11-06] MEDS: SENNOSIDES 8.6MG/DOCUSATE 50MG TABLET 1 TAB PO (08:40)
[2024-11-06] MEDS: CARVEDILOL 12.5MG TABLET 12.5 MG PO (08:40)
--- NOTE | 2024-11-06 09:11 | PC.NURSE ---
Patient refuses IV fluids and lovenox. Education provided regarding risk of developing blood clot. Patient continues to refuse
--- NOTE | 2024-11-06 09:23 | P.DS_ITS ---
General Admission date:: 11/03/24 Discharge date: 11/06/24 HPI HPI HPI: The patient is a 39-year-old female with a longstanding history of nephrolithiasis who presents with left flank pain. In August, following kidney stone removal at the [facility], she had a double-J stent placed with plans for subsequent removal. However, due to significant social challenges?including lack of personal transportation and repeated missed appointments?she did not have the stent removed as scheduled. Although she initially reported that she ?forgot about? the stent until the onset of pain today, a review of records from a September ER visit reveals that she had been informed of upcoming stent removal appointments, one of which she missed due to oversleeping, indicating a pattern of nonadherence. On presentation, her vital signs were significant for severe hypertension with a blood pressure of 202/127 mmHg, a pulse of 98 beats per minute, a respiratory rate of 18, and an oxygen saturation of 98% on room air; she was afebrile at 98.7?F. The physical exam was notable for mild left costovertebral angle tenderness and left-sided abdominal tenderness without rebound, guarding, or rigidity, with active and normal bowel sounds. Laboratory studies demonstrated a urinalysis with yellow, cloudy urine showing 2+ protein, 3+ blood, and 3+ leukocyte esterase; the microscopic examination revealed 50?100 red blood cells, 20?50 white blood cells, occasional squamous epithelial cells, and 1+ bacteria. Hematologic evaluation showed an elevated white blood cell count of 13.5 with an absolute neutrophil count of 9.3 and a platelet count of 439, supporting an inflammatory or infectious process. CT imaging of the abdomen and pelvis confirmed that the left ureteral stent remains in stable position. It revealed [id number] left hydronephrosis extending to the ureteropelvic junction, a cluster of stones in the lower pole calyx of the left kidney, and slight delayed enhancement of the left kidney compared to the right. The left ureter?s course and caliber were unremarkable, and the right kidney and ureter were normal with no obstructing stones or evidence of uropathy. Additionally, extensive diverticulosis was noted throughout the colon, without evidence of diverticulitis. Given these findings, the differential diagnosis includes an obstructed stent, recurrent kidney stones, pyelonephritis, or an abscess. Initial management in the emergency department included pain control with Tylenol and Toradol, though due to inadequate relief, she subsequently received additional doses of Zofran and Dilaudid. Oral Levaquin was initiated in response to her urinalysis findings, and Ditropan was provided for potential spastic pain. Coordination with both the [facility] urology team and a local urologist was attempted; however, given that the service was on divert for nonemergent cases and feel this is stable with nonoccluded or migrating stent, they recommended treatment with antibiotics prior to any invasive intervention. environmental services project manager and case management have been engaged to address her transportation issues and ensure proper outpatient follow-up for definitive stent retrieval and management of her recurrent nephrolithiasis. Hospital Course Hospital Course Hospital Course: The patient is a 39-year-old female with a long history of nephrolithiasis who presents with left flank pain in the setting of a retained double-J stent that was placed in August following kidney stone removal at the [facility]. Her history is notable for multiple missed follow-up appointments due to significant social barriers, which has led to delayed stent removal. While she initially reported ?forgetting about? the stent, prior records from a September ER visit document that she was well informed of her scheduled appointments?with at least one missed due to oversleeping?raising concerns about adherence. Her current presentation is complicated by severe hypertension (202/127?mmHg), and laboratory studies reveal a urinalysis with 2+ protein, 3+ blood, and 3+ leukocyte esterase, along with microscopic findings of 50?100 RBCs, 20?50 WBCs, and minimal bacteria, suggesting an inflammatory or infectious process. CT imaging demonstrates a stable left ureteral stent, moderate-to- severe hydronephrosis extending to the ureteropelvic junction, a cluster of stones in the left lower pole calyx, and slightly delayed enhancement of the left kidney compared to the right, without evidence of obstructive stones in the right kidney. Extensive colonic diverticulosis is noted without signs of acute diverticulitis. These findings raise concerns for stent-related complications (possibly stent obstruction), recurrent nephrolithiasis, and early pyelonephritis, all in the context of poor outpatient follow-up and significant social obstacles. Treated with antibiotics and pain control. Social work consulted and assisted with care. Unable to coordinate transportation for the patient. Was not excepted in transfer to [place] or due to no urgent surgical need. As she is clinically stable, will discharge home with plan for further management as an outpatient. [facility] contacted and assisting with scheduling close outpatient follow-up and transportation. Problems addressed as follows: Retained Double-J Ureteral Stent with Hydronephrosis and Nephrolithiasis Pyelonephritis Sepsis PAUL -Meeting sepsis criteria with leukocytosis, tachycardia, infection associated with ureteral stent. White count normalized during admission. Remained normal at 9-10. Remained afebrile. Initially on Levaquin 750 mg daily, continue for a total of 7 days. Urine culture growing gram-positive cocci. But clinically improving. Kidney function remained normal with BUN in the 20s and creatinine 1-1.3. Electrolytes normal. Continue to have moderate pain. Responding to opiates and NSAIDs. Continue naproxen and oxycodone at discharge for pain control. -ER contacted who placed a left ureteral stent, as there was no surgical emergency, recommended management at our facility with antibiotics and close follow-up. Patient has had difficulty making follow-up due to transportation reliability. -Contacted [facility] on 11/04, not accepted for transfer as they recommend continuity of care with provider who placed stent. -Case management evaluated the patient on Wednesday. With their assistance, we communicated with the [facility]. [facility] working on coordinating transportation using [facility] and communicating with urology at to assist with close follow-up and further management as an outpatient. -Continue pain control with oxycodone 5 mg as needed every 4-6 hours. Continue naproxen 500 mg twice daily. -Continue tamsulosin 0.4 mg daily Hypertension -Suspect component of pain as well as uncontrolled hypertension. Blood pressure better controlled after initiating carvedilol 12.5mg twice daily. 142/91 on morning of discharge. May need further adjustments to blood regimen as an outpatient Social Barriers and Follow-Up Compliance - The patient has significant social barriers, including lack of transportation and a history of missed appointments, contributing to delayed stent removal and suboptimal follow-up. - Engage social research assistant and case management immediately to address these issues and coordinate a comprehensive outpatient care plan, including timely follow-up with urology and primary care. -Patient's only payer source/insurance is [facility] insurance. Discussed her case with social work and community service coordinator at the [facility]. They are attempting to assist with transportation via the [facility] and coordinating with urology nurse navigator to get patient to [place] for definitive care. As [facility] is [facility] seen through [facility], we are unable to assist with resources at our facility, and has a need that is strictly urologic, would recommend transfer to higher level of care if returns to our facility with same problem prior to removal of ureteral stent. Total time spent on discharge 40 minutes in counseling, documentation, chart review, and direct care with patient. Exam Data for Last 24 hours Vital signs and Labs for Last 24 Hours: Temp Pulse Resp BP Pulse Ox O2 Del Method 97.9 F 91 H 19 154/91 H 96 Room Air 11/04/24 04:05 11/04/24 04:05 11/04/24 04:05 11/04/24 04:05 11/04/24 04:05 11/04/24 07:00 Laboratory Results - last 24 hr 11/03/24 18:35: Urine HCG, Qual Negative 11/03/24 18:42: Urine Color Yellow, Urine Appearance Cloudy, Urine pH 6.5, Ur S pecific [place] 1.020, Urine Protein 2+ A, Urine Glucose (UA) Negative, Urine Ketones Negative, Urine Blood 3+ A, Urine Nitrate Negative, Urine Bilirubin Negative, Urine Urobilinogen 0.2, Ur Leukocyte Esterase 3+ A, Urine RBC 50-100, Urine WBC 20-50, Ur Squamous Epith Cells Occasional, Urine Bacteria 1+ 11/03/24 19:21: WBC 13.5 H, RBC 5.06, Hgb 13.7, Hct 42.5, MCV 84.0, MCH 27.1, MCHC 32.2, RDW 13.7, Plt Count 439 H, MPV 9.4, Neut % (Auto) 68.5, Lymph % (Aut o) 21.3, Lyman % (Auto) 6.8, Eos % (Auto) 2.1, Baso % (Auto) 0.4, Neut # (Auto) 9.3 H, Lymph # (Auto) 2.9, Lyman # (Auto) 0.9, Eos # (Auto) 0.3, Baso # (Auto) 0.1, Sodium 139, Potassium 4.1, Chloride 105, Carbon Dioxide 26, Anion Gap 12.1, BUN 22 H, Creatinine 0.80, Estimated Creat Clear 99, Estimated GFR 80, Est GFR ( Amer) 97, Glucose 109 H, Calcium 9.3, Total Bilirubin 0.4, AST 26, ALT 25, Alkaline Phosphatase 75, Total Protein 7.7, Albumin 4.1, Globulin 3.6 H, Albumin/Globulin Ratio 1.1 I & O for Last 24 hours: Intake & Output 11/01/24 11/02/24 11/03/24 11/04/24 23:59 23:59 23:59 23:59 Intake Total 240 / 240 Output Total 0 / 0 Balance 240 / 240 Weight 66.224 kg 66.224 kg Constitutional Constitutional: no acute distress, morbidly obese, chronically ill appearing and cooperative *Routine HEENT Exam Head: Present normocephalic Eye: Present EOMI and PERRL ENT: Present mucous membranes moist Comments: hirsutism *Routine Neck Exam Neck: Present supple; Absent lymphadenopathy *Routine Respiratory Exam Respiratory: Present CTA bilaterally; Absent rhonchi, wheezes or crackles *Routine Cardiovascular Exam Cardiovascular: Present RRR *Routine Abdominal Exam Abdominal: Present soft, normoactive bowel sounds and tenderness (left hemiadomen); Absent distended, rebound or guarding *Routine Rectal Exam Patient deferred: visual exam *Routine Exam Patient deferred: external exam *Routine Extremities Exam Extremities: Absent cyanosis, clubbing or edema Routine Back/Spine/Pelvis Exam Back/Spine: Present CVA tenderness (left side, stable if not marginally improved) *Routine Skin Exam Skin: Present intact and warm; Absent rash *Routine Neurological Exam Neurological: Present alert, oriented X3 and moving all extremities; Absent altered mental status Routine Psychiatric Exam Psychiatric: Present normal affect Results Data Completed and Pending Labs on day of discharge: Labs from last 24 hours 11/03/24 11/03/24 11/03/24 19:21 18:42 18:35 WBC 13.5 H RBC 5.06 Hgb 13.7 Hct 42.5 MCV 84.0 MCH 27.1 MCHC 32.2 RDW 13.7 Plt Count 439 H MPV 9.4 Neut % (Auto) 68.5 Lymph % (Auto) 21.3 Lyman % (Auto) 6.8 Eos % (Auto) 2.1 Baso % (Auto) 0.4 Neut # (Auto) 9.3 H Lymph # (Auto) 2.9 Lyman # (Auto) 0.9 Eos # (Auto) 0.3 Baso # (Auto) 0.1 Sodium 139 Potassium 4.1 Chloride 105 Carbon Dioxide 26 Anion Gap 12.1 BUN 22 H Creatinine 0.80 Estimated Creat Clear 99 Estimated GFR 80 Est GFR ( Amer) 97 Glucose 109 H Calcium 9.3 Total Bilirubin 0.4 AST 26 ALT 25 Alkaline Phosphatase 75 Total Protein 7.7 Albumin 4.1 Globulin 3.6 H Albumin/Globulin Ratio 1.1 Urine Color Yellow Urine Appearance Cloudy Urine pH 6.5 Ur Specific [place] 1.020 Urine Protein 2+ A Urine Glucose (UA) Negative Urine Ketones Negative Urine Blood 3+ A Urine Nitrate Negative Urine Bilirubin Negative Urine Urobilinogen 0.2 Ur Leukocyte Esterase 3+ A Urine RBC 50-100 Urine WBC 20-50 Ur Squamous Epith Cells Occasional Urine Bacteria 1+ Urine HCG, Qual Negative DS: Diagnosis Discharge Diagnosis (1) Complicated urinary tract infection: Status: Acute Code(s): N39.0 - Urinary tract infection, site not specified (2) Hydronephrosis: Status: Acute Code(s): N13.30 - Unspecified hydronephrosis (3) Kidney stone: Status: Acute Code(s): N20.0 - Calculus of kidney (4) Lesion of right lobe of liver: Status: Acute Code(s): K76.9 - Liver disease, unspecified (5) Left flank pain: Status: Acute Code(s): R10.9 - Unspecified abdominal pain (6) Ureterolithiasis: Status: Acute Code(s): N20.1 - Calculus of ureter Meds Home Medications and Allergies Home Medications ?Medication ?Instructions ?Recorded ?Confirmed ?Type carvedilol 12.5 mg tablet 12.5 mg PO BID 30 days #60 tabs 11/06/24 11/08/24 Rx levofloxacin 750 mg tablet 750 mg PO DAILY 3 days #3 tabs 11/06/24 11/08/24 Rx naproxen 500 mg tablet 500 mg PO BIDP PRN Moderate To 11/06/24 11/08/24 Rx Severe Pain (4-10) 10 days #20 tabs oxycodone-acetaminophen 5 mg-325 1 tab PO Q6H PRN pain #11 tabs 11/06/24 11/08/24 Rx mg tablet tamsulosin 0.4 mg capsule 0.4 mg PO HS 30 days #30 caps 11/06/24 11/08/24 Rx New Prescriptions to Start Prescriptions: carvedilol Kade,Stuart levofloxacin Kade,Stuart naproxen Kade,Stuart oxycodone-acetaminophen Kade,Stuart tamsulosin Kade,Stuart Allergies Allergy/AdvReac Type Severity Reaction Status Date / Time Penicillins Allergy Severe Hives Verified 06/22/23 20:51 gatifloxacin (From TEQUIN) Allergy Mild Verified 06/22/23 20:51 ketorolac (From TORADOL) Allergy Mild Verified 06/22/23 20:51 aztreonam (AZTREONAM) Allergy Unknown NA-NAUSEA/V Verified 06/22/23 20:51 OMITING cefaclor (CEFACLOR) Allergy Unknown Verified 06/22/23 20:51 codeine (CODEINE) Allergy Unknown BLEEDING Verified 06/22/23 20:51 OF EYES AND NOSE doxycycline (DOXYCYCLINE) Allergy Unknown Verified 06/22/23 20:51 midazolam (From VERSED) Allergy Unknown Verified 06/22/23 20:51 sulfamethoxazole (From Allergy Unknown Verified 06/22/23 20:51 BACTRIM) trimethoprim (From BACTRIM) Allergy Unknown Verified 06/22/23 20:51 ibuprofen Allergy Verified 06/22/23 20:51 tramadol Allergy Verified 06/22/23 20:51 Discharge Plan Disposition Patient Disposition: Home, Self-Care Condition: Fair Discharge Order Discharge Orders: Discharge Order (Routine); Ordered 11/06/24 Ordered By: Stuart Braun Follow up Plan Prescriptions/Medication Reconciliation: New carvedilol 12.5 mg Tablet 12.5 mg PO BID 30 Days Qty: 60 0RF tamsulosin 0.4 mg Capsule 0.4 mg PO HS 30 Days Qty: 30 0RF levofloxacin 750 mg Tablet 750 mg PO DAILY 3 Days Qty: 3 0RF Rx Instructions: first dose due 11/07/24 naproxen 500 mg Tablet 500 mg PO BIDP PRN (Reason: Moderate To Severe Pain (4-10)) 10 Days Qty: 20 0RF oxycodone-acetaminophen 5-325 mg tablet 1 tab PO Q6H PRN (Reason: pain) Qty: 11 0RF Problem Reconciliation Problems Reviewed?: Yes Patient Discharge Instructions ACTIVITY: Continue current activity DIET: continue same diet Additional Instructions: Please contact urology at the [facility] tomorrow 11/07/24 if you have not heard anything from them by later today (11/06). Their number is [phone] extension [phone] Patient Instructions: Hydronephrosis -- Adult, DI for Kidney Stones, DI for Urinary Tract Infection (UTI) Print Language: Greenlandic Providers Primary Care Provider: Provider,Referral Admit Provider: Stuart Braun Attending Provider: Stuart Braun
--- NOTE | 2024-11-06 09:51 | CARE MANAGER ---
Addendum entered by Jennifer Jacob RN 11/06/24 13:48: Contacted [facility] and spoke with Senia at [phone] ext [phone]. She requested records on patient and states once received an appointment will be set up and they will get in touch with the patient. A social worker health services at [facility] is also on the case to help patient with transportation. Faxed requested information to [phone] and notified nurse and Dr. Braun. Original Note: Patient is having issues and missed her urology appointment. Natalie Whipple, suggestion clerk, contacted [facility] to see if she had transportation benefit since they sent her to for the stent in the ureter. She does not have transportation benefits except to get to [facility]. Contacted Dr. Kaur's office here to see if he would remove the stent here, but they state he would not. Patient states even if we made her an appointment she would miss it because not only does she not have transportation but [facility] and unable to go to appointment. Dr. Braun is still working on contacting [facility] about appointment.
[2024-11-06] MEDS: levoFLOXacin 750 MG TABLET PO (11:15)
[2024-11-06 12:00] VITALS: BP 142/91; PULSE 95; RESP 20; TEMP 36.8; O2SAT 96
--- NOTE | 2024-11-08 10:47 | SW/DCPLANNER ---
Spoke with patient on her friends phone. Patient stated that she has no internet and thats why she cant be reached on her phone. Patient stated that she was back at the er last night because she couldnt use the bathroom. Patient stated that she was able to get her new medicine from clinic pharmacy. Patient stated that she felt like the er dr didnt want her to come back to [facility] that she needs to go to [place] or where patient has had appointments and not go to them. Patient stated that she doesnt have any concerns or questions. I gave the patient the hospital and to call Jen Mitchell to call if she has complaints. July Eldridge
== END 2024-11-06 15:31 | disposition home or self-care (01) | DRG 699 ==
LOC: ER 22:40 → 2ND 23:24
PROVIDERS: Nurse Practitioner Family; Physician Assistant; Admitting Provider Internal Medicine Adolescent Medicine; Emergency Provider Student in an Organized Health Care Education/Training Program; Visit Provider Internal Medicine Adolescent Medicine
DX: T83.592A Infection and inflammatory reaction due to indwelling ureteral stent, initial encounter (principal); N13.6 Pyonephrosis; Z68.43 Body mass index [BMI] 50.0-59.9, adult; Z59.82 Transportation insecurity; E66.01 Morbid (severe) obesity due to excess calories; F17.220 Nicotine dependence, chewing tobacco, uncomplicated; I10 Essential (primary) hypertension; N20.0 Calculus of kidney; K76.9 Liver disease, unspecified; Z79.899 Other long term (current) drug therapy; Y73.1 Therapeutic (nonsurgical) and rehabilitative gastroenterology and urology devices associated with adverse incidents; B95.7 Other staphylococcus as the cause of diseases classified elsewhere
CPT/HCPCS: 36415; 74177; 80048; 80053; 81001; 81025; 83735; 85025; 87040; 87086; 87088; 87186; 99221; 99291; J0131; J1171; J1642; J1650; J1885; J2270; J2405; J7120; Q9967

== ENCOUNTER 2024-11-08 02:38 | Emergency (ER) | payer OTHER, SELFPAY ==
[2024-11-08 02:40] VITALS: BP 189/126; PULSE 103; RESP 20; TEMP 36.8; O2SAT 99; BMI 44.9
--- NOTE | 2024-11-08 02:50 | CT_ITS ---
PROCEDURE INFORMATION: Exam: CT Abdomen And Pelvis With Contrast Exam date and time: 11/08/2024 4:23 AM Age: 39 years old Clinical indication: Abdominal pain; Additional info: Known L stent w/ CVA pain, new llq pain/diarrhea TECHNIQUE: Imaging protocol: Computed tomography of the abdomen and pelvis with contrast. Radiation optimization: All CT scans at this facility use at least one of these dose optimization techniques: automated exposure control; mA and/or kV adjustment per patient size (includes targeted exams where dose is matched to clinical indication); or iterative reconstruction. Contrast material: ISOVUE; Contrast volume: 75 ml; Contrast route: IV; COMPARISON: CT ABDOMEN PELVIS W CON 11/03/2024 8:08 PM FINDINGS: Liver: Stable right hepatic hypodensity unchanged from multiple prior studies dating back to 2022.. No mass. Gallbladder and biliary ducts: Cholecystectomy. Pancreas: Normal. No ductal dilation. Spleen: Normal. No splenomegaly. Adrenal glands: Normal. No mass. Kidneys and ureters: There is a double-J left-sided ureteral stent which appears to be in good position. However there is high-grade left-sided hydronephrosis present. Multiple stones are seen in the dependent inferior pole collecting system on the left. No evidence of urolithiasis. Stomach and bowel: Unremarkable. No obstruction. No mucosal thickening. Appendix: No evidence of appendicitis. Intraperitoneal space: Unremarkable. No free air. No significant fluid collection. Vasculature: Unremarkable. No abdominal aortic aneurysm. Lymph nodes: Unremarkable. No enlarged lymph nodes. Urinary bladder: Unremarkable as visualized. Reproductive: Hysterectomy. Bones/joints: Unremarkable. No acute fracture. Soft tissues: Unremarkable. IMPRESSION: 1. Stable high-grade left-sided hydronephrosis. Stable double-J ureteral stent. 2. Stable right hepatic hypodensity unchanged dating back to 2022, possible hemangioma. 3. Cholecystectomy. 4. Hysterectomy.
[2024-11-08 02:58] LABS: Microscopic, Urine URINE MICROSCOPIC (MICROSCOPIC)
--- NOTE | 2024-11-08 03:06 | PC.NURSE ---
98 ml urine showed on badder scanner
[2024-11-08 03:09] LABS: Bilirubin,Urine Negative (Negative); Blood, Urine 3+ (Negative); Color,Urine YELLOW (Yellow); Glucose,Urine (UA) Negative (Negative); Ketones,Urine Negative (Negative); Leukocyte Esterase,Urine 3+ (Negative); Nitrate,Urine Negative (Negative); PH,Urine 7.5 (5.0-8.5); Protein,Urine TRACE (Negative); Urobilinogen,Urine 0.2 EU/dl (0.2)
[2024-11-08 03:10] LABS: Appearance,Urine Slightly Cloudy (Clear)
--- NOTE | 2024-11-08 03:15 | ED_ITS ---
Discharge Plan Disposition Patient Disposition: Home, Self-Care Condition: Good Prescriptions Prescriptions: No Action carvedilol 12.5 mg Tablet 12.5 mg PO BID 30 Days Qty: 60 0RF tamsulosin 0.4 mg Capsule 0.4 mg PO HS 30 Days Qty: 30 0RF levofloxacin 750 mg Tablet 750 mg PO DAILY 3 Days Qty: 3 0RF Rx Instructions: first dose due 11/07/24 naproxen 500 mg Tablet 500 mg PO BIDP PRN (Reason: Moderate To Severe Pain (4-10)) 10 Days Qty: 20 0RF oxycodone-acetaminophen 5-325 mg tablet 1 tab PO Q6H PRN (Reason: pain) Qty: 11 0RF Referrals Follow up/Referrals: Provider,Referral, MD [Primary Care Provider] - See instructions Activity Restrictions/Add. Instructions Additional Instructions/Restrictions: You were evaluated in the ER and are appropriate for discharge at this time. Continue taking your home medications as prescribed. Drink plenty of fluids. Follow-up with urology as scheduled. DO NOT MISS THIS APPOINTMENT. Answer all phone calls from 259 area codes, they are going to reach out to you about transportation. Return to the ER with new, worsening, or otherwise concerning symptoms. Clinical Impressions Clinical Impression: Left flank pain Print Language Print Language: Lao Discharge ED Provider: Scot Colón Adult HPI General Chief complaint: Abdominal Pain Stated complaint: difficulty urinating, nausea, abd pain Time Seen by Provider: 11/08/24 02:47 Mode of Arrival: Ambulatory Source of Information: Patient Limitations: No Limitations Description of Symptoms (Recalled from ER Triage Doc. by RN): Pt to ED with c/o LLQ abd pain and diarrhea History of Present Illness HPI narrative: 39-year-old female with known left ureteral stent, nephrolithiasis who has had difficulty accessing her urology appointments for various reasons including nonadherence as well as lack of transportation presents to the ER for complaints of lower abdominal pain, feeling that she is unable to empty her bladder, left lower quadrant abdominal pain, diarrhea. Patient states she typically has constipation and was constipated while hospitalized over the last few days, but she is now having diarrhea and left lower quadrant abdominal pain. She states she is able to pass urine but feels like her bladder does not fully empty and she is unable to keep going. She denies dysuria or obvious hematuria. No vomiting, no chest pain or shortness of breath, no fevers or chills, no other associated symptoms. Related Data Previous Rx's ?Medication ?Instructions ?Recorded carvedilol 12.5 mg tablet 12.5 mg PO BID 30 days #60 tabs 11/06/24 levofloxacin 750 mg tablet 750 mg PO DAILY 3 days #3 tabs 11/06/24 naproxen 500 mg tablet 500 mg PO BIDP PRN Moderate To 11/06/24 Severe Pain (4-10) 10 days #20 tabs oxycodone-acetaminophen 5 mg-325 1 tab PO Q6H PRN pain #11 tabs 11/06/24 mg tablet tamsulosin 0.4 mg capsule 0.4 mg PO HS 30 days #30 caps 11/06/24 Allergies Allergy/AdvReac Type Severity Reaction Status Date / Time Penicillins Allergy Severe Hives Verified 06/22/23 20:51 gatifloxacin (From TEQUIN) Allergy Mild Verified 06/22/23 20:51 ketorolac (From TORADOL) Allergy Mild Verified 06/22/23 20:51 aztreonam (AZTREONAM) Allergy Unknown NA-NAUSEA/V Verified 06/22/23 20:51 OMITING cefaclor (CEFACLOR) Allergy Unknown Verified 06/22/23 20:51 codeine (CODEINE) Allergy Unknown BLEEDING Verified 06/22/23 20:51 OF EYES AND NOSE doxycycline (DOXYCYCLINE) Allergy Unknown Verified 06/22/23 20:51 midazolam (From VERSED) Allergy Unknown Verified 06/22/23 20:51 sulfamethoxazole (From Allergy Unknown Verified 06/22/23 20:51 BACTRIM) trimethoprim (From BACTRIM) Allergy Unknown Verified 06/22/23 20:51 ibuprofen Allergy Verified 06/22/23 20:51 tramadol Allergy Verified 06/22/23 20:51 PFSH PFSH Disclaimer: The information contained in this section may have been updated after the patient was seen, as this information can be updated by other users. 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 (Updated 11/08/24 @ 05:57 by Scot Colón MD) Sepsis Axillary adenopathy Morbid obesity with BMI of 40.0-44.9, adult Chews tobacco Chest pain Lesion of liver greater than 1 cm in diameter Pyelonephritis Diverticulitis Puncture wound of hand, left Elevated serum hCG in female, not Hypokalemia Pyelonephritis Urolithiasis Exacerbation of reactive airway disease Pneumonia CAP (community acquired pneumonia) Flu syndrome Bronchitis Kurtz splints Achilles tendinitis Hypokalemia COVID-19 virus infection Nausea and vomiting TMJ arthralgia Pancreatitis Anxiety Hypertension Class 3 obesity Ureteral calculus, right Sepsis Sciatica Dental abscess Right flank pain Cough Leg pain Fracture of medial malleolus, right, closed Reactive airway disease with wheezing Bronchitis Sinusitis Ureteral calculus Renal colic Kidney stone on left side Poison eric dermatitis Cellulitis of breast Left flank pain Pain and swelling of left ankle Ankle pain, left Pain and swelling of right ankle Left knee pain Tight cast Cast discomfort Tibia/fibula fracture Encounter for laboratory testing for COVID-19 virus Renal colic on right side Pyelonephritis Hypertension Obstructive uropathy Left ureteral calculus Flank pain SIRS (systemic inflammatory response syndrome) Renal insufficiency Ureteral stent occlusion Hydronephrosis Contusion of coccyx Obesity (BMI 35.0-39.9 without comorbidity) Nephrolithiasis Diarrhea Hydronephrosis with urinary obstruction due to ureteral calculus Complicated UTI (urinary tract infection) Foot sprain Renal colic on left side Bruise Recurrent left lower quadrant abdominal pain Chronic pain Ovarian cyst Flank pain, acute Urinary tract infection Abscess after procedure Wound dehiscence, surgical Dehiscence of closure of skin Yeast dermatitis Surgical wound infection Cellulitis Abdominal pain Complex cyst of right ovary Cystitis Vomiting and diarrhea Epigastric pain Surgical History S/P ureteral stent placement Status post cystoscopy with ureteral stent placement Fracture of ankle, lateral malleolus, left, closed Fracture of tibial shaft, left, closed S/P unilateral salpingo-oophorectomy Family History (Updated 11/03/24 @ 23:49 by Mary Garcia, EVE) Other No significant family history 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 (Updated 11/03/24 @ 23:49 by Mary Garcia RN) Smoking Status: Current every day smoker tobacco type: smokeless tobacco second hand exposure: No alcohol intake: never counseling provided: none substance use type: denies use current occupational status: disabled Travel in the last 8 weeks: None household members: none housing: house 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 current occupational exposures/hazards: No caffeine: No Have you lived/traveled outside [place] in past 30 days?: No Contact w/someone who lives/traveled outside US past 30 days?: No Exposure to someone with infectious disease in past 14 days?: No Do you have a fever (greater than 100.4 F or 38 C)?: No Have you tested positive for COVID-19: No Exposed to someone with COVID-19 in past 14 days?: No Do you have a sore throat?: No Do you have a cough?: No Do you have any weakness?: No Do you have any diarrhea?: No Are you experiencing any unusual bleeding?: No Do you have any muscle aches/pain?: No Do you have any abdominal pain?: Yes Are you experiencing loss of taste or smell?: No Other 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 Have you received the Flu Vaccine for this season: No Have you received the Pneumonia Vaccine: No ROS Obtained: Yes Systems reviewed as appropriate & no additional complaints except as documented Per HPI Physical Exam General General appearance: alert, in no apparent distress and obese Head Head exam: atraumatic and normocephalic Eye Eye exam: Present PERRL and EOMI ENT ENT exam: Present mucous membranes moist Neck Neck exam: Present normal inspection and full ROM Chest Chest inspection: Present symmetric chest wall rise Respiratory Respiratory exam: Present normal lung sounds bilaterally; Absent respiratory distress, wheezes or stridor Cardiovascular Cardiovascular exam: Present regular rate and normal rhythm Abdominal Exam Abdominal exam: Present soft and tenderness (Left lower quadrant, mild); Absent distention, guarding or rebound Extremities Exam Extremities exam: Present full ROM Back Exam Back exam: Present CVA tenderness (L); Absent CVA tenderness (R) Neurological Exam Neurological exam: Present alert and oriented X3; Absent motor sensory deficit Psychiatric Psychiatric exam: Present normal affect and normal mood Skin Skin exam: Present warm and dry Medical Decision Making Medical Records Medical records reviewed: Yes I reviewed the patient's medical records. Screening: Per USPSTF and CDC recommendations, given the prevalence of disease in our region, it is our hospital?s policy to screen for HIV and viral Hepatitis for all patients aged 18 and over and those with ongoing risk factors. MR Comment: Discharge summary from 11/06/2024 demonstrates that the hospitalist team is also concerned that patient has a history of nonadherence, lack of follow-up for her known ureteral stent. While inpatient, she was treated with Ditropan. There were multiple attempts at coordinating care with urology however this was unsuccessful. Patient ended up being discharged with new prescriptions for carvedilol, tamsulosin. Olu Inquiry Pt receiving controlled substance: No Vital Signs: 11/08/24 02:40 11/08/24 04:10 Temperature 98.3 F Temperature Source Oral Pulse Rate 92 H Pulse Rate [Left Radial] 103 H Respiratory Rate 20 Blood Pressure 148/84 H Blood Pressure [Right Arm] 189/126 H Blood Pressure Mean [Right Arm] 147 Blood Pressure Source [Right Arm] Automatic Cuff Blood Pressure Position [Right Arm] Sitting 02 Sat by Pulse Oximetry 99 97 Oxygen Delivery Method Room Air Lab Data Lab Results 11/08/24 02:45: Urine Color Yellow, Urine Appearance Slightly cloudy, Urine pH 7.5, Ur Specific [place] 1.020, Urine Protein Trace, Urine Glucose (UA) Negative, Urine Ketones Negative, Urine Blood 3+ A, Urine Nitrate Negative, Urine Bilirubin Negative, Urine Urobilinogen 0.2, Ur Leukocyte Esterase 3+ A, Urine RBC 10-20, Urine WBC 20-50, Ur Squamous Epith Cells 5-10, Amorphous Sediment 1+, Urine Bacteria 2+ 11/08/24 03:22: WBC 9.3, RBC 4.46, Hgb 12.3, Hct 38.0, MCV 85.2, MCH 27.6, MCHC 32.4, RDW 14.3, Plt Count 325, MPV 9.6, Neut % (Auto) 67.0, Lymph % (Auto) 19.1, [place] % (Auto) 9.7 H, Eos % (Auto) 3.6, Baso % (Auto) 0.2, Neut # (Auto) 6.3, Lymph # (Auto) 1.8, [place] # (Auto) 0.9, Eos # (Auto) 0.3, Baso # (Auto) 0.0, PT 10.2, INR 0.92, Sodium 137, Potassium 3.6, Chloride 104, Carbon Dioxide 31 H, Anion Gap 5.6, BUN 17 D, Creatinine 0.90, Estimated Creat Clear 66, Estimated GFR 70, Est GFR ( Amer) 84, Glucose 114 H, Lactate 1.5, Calcium 8.4, Total Bilirubin 0.3, AST 39 H, ALT 32, Alkaline Phosphatase 73, C-Reactive Protein 21.3 H, Total Protein 6.7, Albumin 3.6, Globulin 3.1, Albumin/Globulin Ratio 1.2, Lipase 118, Serum HCG, Qual Negative 11/08/24 03:22 11/08/24 03:22 Orders (Tests/Meds): ED MEDICATIONS Generic Name Dose Route Start Last Admin Trade Name Silke PRN Reason Stop Dose Admin Sodium Chloride 10 ml 11/08/24 04:29 11/08/24 04:30 Sodium Chloride 0.9% 10ml Syr (Rad Only) IV 12/08/24 04:28 10 ml NEEDED PRN Administration Maintain IV Site Discontinued Medications Generic Name Dose Route Start Last Admin Trade Name Silke PRN Reason Stop Dose Admin Acetaminophen 1,000 mg 11/08/24 02:50 11/08/24 03:26 Acetaminophen 1,000mg/100ml Vial IV 11/08/24 02:51 1,000 mg ONCE ONE Administration Hydromorphone HCl 0.25 mg 11/08/24 04:53 11/08/24 04:58 Hydromorphone 2mg/Ml Syringe IV 11/08/24 04:54 0.25 mg ONCE ONE Administration Lactated Ringer's 1,000 mls @ 999 mls/hr 11/08/24 02:50 11/08/24 03:26 Lactated Ringer's 1000 Ml Bag IV 11/08/24 03:50 999 mls/hr .Q1H1M ONE Administration Iopamidol 75 ml 11/08/24 04:29 11/08/24 04:30 Iopamidol-370 (76%);100ml Bottle IV 11/08/24 04:30 75 ml ONCE ONE Administration Ondansetron HCl 4 mg 11/08/24 04:41 11/08/24 04:58 Ondansetron 4mg/2ml Vial IV 11/08/24 04:42 4 mg ONCE ONE Administration ORDERS Category Date Time Status CT abdomen pelvis w con Stat Cat Scan 11/08/24 02:50 Completed C-Reactive Protein Stat Lab 11/08/24 03:22 Completed Complete Blood Count Auto Diff Stat Lab 11/08/24 03:22 Completed Comprehensive Metabolic Panel Stat Lab 11/08/24 03:22 Completed HCG Qualitative, Serum Stat Lab 11/08/24 03:22 Completed Lactic Acid Stat Lab 11/08/24 03:22 Completed Lipase Stat Lab 11/08/24 03:22 Completed Prothrombin Time INR Stat Lab 11/08/24 03:22 Completed Urinalysis and Microscopic Stat Lab 11/08/24 02:45 Completed Urine Culture Stat Micro 11/08/24 02:45 Received Medical Decision Narrative: In summary, this 39-year-old female with comorbidities described in the HPI which are not able therapy presents to the emergency department today with difficulty emptying her bladder, left lower quadrant abdominal pain, diarrhea. On initial evaluation patient was mildly tachycardic on arrival to the ER but her tachycardia has resolved during my exam, she does have left CVA tenderness, left lower quadrant tenderness without peritonitic findings. Differential diagnosis includes but is not limited to stent migration, urinary tract infection, aloe nephritis, considered diverticulitis, patient was also treated inpatient with opioids and reported being constipated while in the hospital, it is possible her diarrhea is related to opioid withdrawal, viral syndrome, among others. Based on these concerns, I ordered serum labs, urine studies, CT imaging. Patient received IV Tylenol initially for treatment. Bladder scan reveals 98 mL in the bladder, she does not have significant urinary retention. Labs personally reviewed demonstrate UA with blood and leukocyte esterase but nitrate negative. Labs demonstrate no leukocytosis or anemia, normal platelets, PT/INR normal, CMP nonactionable, patient's kidney function is improved from 2 days ago when she was discharged from the hospital, CRP elevated at 21.3, nonspecific, nonactionable at this time, lipase normal, hCG negative. CT abdomen pelvis personally interpreted demonstrates inferior migration of the left double-J stent. It appears to have migrated approximately 4 cm from the superior pole of the kidney to the UPJ. The inferior aspect of the stent is now lying transverse across the inferior aspect of the bladder. See radiology read for final interpretation. I specifically discussed this with the radiologist since his initial read did not comment on the stent migration but my review of previous CTs demonstrated that the stent had previously been in the superior aspect of the kidney and was now migrated inferiorly. He agrees with this, he also states that there is not any evidence of bladder wall inflammation or erosion despite the migration of the stent. He believes the stent is likely still above the UPJ but believes the stent is likely occluded causing the hydronephrosis. Patient continues to complain of pain, I do have suspicion for intentions of secondary gain however her stent has migrated so she received a one-time low- dose of IV Dilaudid. She has narcotics at home which she reports she took prior to arrival. Additional narcotics will not be administered or prescribed. Contacted and received a call back from Dr. Osorio with the urology team. He reviewed images from today and previous images, he agrees that the stent has migrated but should still be in an effective position and likely not causing her symptoms. With her labs and vitals he states there is no emergent pathology and patient is not accepted for transfer due to [facility] being on divert. We reviewed that the patient has significant social barriers to accessing follow-up including lack of transportation, he stated he is going to reach out to the surgeon who is supposed to operate on her in November to remove the stent and make sure that the surgeon and the social work team are all aware that the patient will need transportation. He also noted that the patient has had multiple missed appointments due to reportedly oversleeping, etc., and reiterated that it is very important to implore the patient to follow-up as scheduled and make plans for transportation for follow-up. [facility] and therefore [facility] to [facility] to see if they had anything to offer to help with either excepting the patient for transfer or assisting the patient with transportation and follow-up. Awaiting a callback. [place] facility called back. There are urologist team is the same as and they do not have any different opinion. Patient not accepted for transfer. At this time I believe patient is appropriate for discharge. She does not have a surgical emergency and has no evidence of active infection or other concerning findings on labs or imaging. She has follow-up scheduled with urology. I expressed to her the importance of not missing this appointment and using the resources provided to her from our case management team as well as the social workers at to get to the appointment as scheduled. Patient was given instructions on symptomatic management, follow up instructions, and return precautions for the emergency department. Patient indicated understanding and was discharged in stable condition. Critical Care Critical Care Time Critical Care Time: No
--- NOTE | 2024-11-08 03:21 | PC.NURSE ---
post void residual 98 ml
[2024-11-08] MEDS: LACTATED RINGERS 1000ML 1,000 ML 999 ML IV (03:26)
[2024-11-08] MEDS: ACETAMINOPHEN 1,000MG/100ML VIAL 1000 MG IV (03:26)
[2024-11-08 03:36] LABS: Basophils % 0.2 % (0.1-2.0); Eosinophils # 0.3 K/mm3 (0.0-0.4); Eosinophils % 3.6 % (0.1-12.0); Hemoglobin 12.3 g/dL (12.2-16.2); Lymphocytes # 1.8 K/mm3 (0.7-4.5); Lymphocytes % 19.1 % (10-50); Mean Corpuscular HGB Conc 32.4 g/dL (31.8-35.4); Mean Corpuscular Hemoglobin 27.6 pg (27.0-31.2); Mean Corpuscular Volume 85.2 fl (81-99); Mean Platelet Volume 9.6 fl (7.4-10.4); Monocytes # 0.9 K/mm3 (0.1-1.0); Monocytes % 9.7 % (1.7-9.3); Neutrophils # 6.3 K/mm3 (1.8-7.8); Platelet Count 325 K/mm3 (142-424); Red Blood Count 4.46 M/mm3 (4.20-5.40); Red Cell Distribution Width 14.3 % (11.5-17.5); White Blood Count 9.3 K/mm3 (4.8-10.8)
[2024-11-08 03:41] LABS: Amorphous Sediment,Urine 1+ /lpf; Bacteria,Urine 2+ /lpf; WBC,Urine 20-50 #/hpf (0-3)
[2024-11-08 03:41] LABS: INR 0.92 (0.9-1.1); Prothrombin Time 10.2 seconds (9.2-12.1)
[2024-11-08 03:42] LABS: Alanine Aminotransferase 32 U/L (12-78); Albumin Level 3.6 g/dl (3.5-5.0); Albumin/Globulin Ratio 1.2 (1.1-1.8); Alkaline Phosphatase 73 U/L (38-126); Anion Gap 5.6 mEq/L (5-15); Aspartate Amino Transferase 39 U/L (14-36); Bilirubin,Total 0.3 mg/dl (0.2-1.3); Blood Urea Nitrogen 17 mg/dl (7-17); Calcium 8.4 mg/dl (8.4-10.2); Carbon Dioxide 31 mmol/L (22.0-30.0); Chloride 104 mmol/L (98-107); Creatinine Clearance Estimated 66 mL/min (50-200); Estimated Glomerular Filt Rate 70 ml/min (>60); GFR (African American) 84 ML/MIN (>60); Globulin 3.1 g/dL (1.3-3.2); Glucose 114 mg/dl (74-100); Lactic Acid 1.5 mmol/L (0.7-2.1); Lipase 118 U/L (23-300); Potassium 3.6 mmoL/L (3.5-5.1); Sodium 137 mmol/L (136-145); Total Protein,Serum 6.7 g/dl (6.3-8.2)
[2024-11-08 03:47] LABS: C-Reactive Protein 21.3 mg/L (0-4)
[2024-11-08 04:10] VITALS: BP 148/84; PULSE 92; O2SAT 97
[2024-11-08 04:13] LABS: HCG Qualitative, Serum Negative (Negative)
--- NOTE | 2024-11-08 04:18 | PC.NURSE ---
Pt to CT scan via wheelchair
[2024-11-08] MEDS: IOPAMIDOL-370 (76%);100ML BOTTLE 75 ML IV (04:30)
[2024-11-08] MEDS: SODIUM CHLORIDE 0.9% 10ML SYR (RAD ONLY) 10 ML IV (04:30)
--- NOTE | 2024-11-08 04:46 | PC.NURSE ---
Rounded on pt. pt laying in bed. pt reports pain and nausea. MD Colón notified. call light in reach
[2024-11-08] MEDS: ONDANSETRON 4MG/2ML VIAL 4 MG IV (04:58)
[2024-11-08] MEDS: HYDROMORPHONE 2MG/ML SYRINGE 0.25 MG IV (04:58)
[2024-11-08 06:16] VITALS: BP 133/78; PULSE 89; RESP 14; TEMP 36.6; O2SAT 91
== END 2024-11-08 06:18 | disposition home or self-care (01) ==
PROVIDERS: Emergency Provider Emergency Medicine
DX: R10.9 Unspecified abdominal pain (principal)
CPT/HCPCS: 74177; 80053; 81001; 83605; 83690; 84703; 85025; 85610; 86140; 87086; 96361; 96374; 96375; 99285; J0131; J1171; J2405; J7120; Q9967

== ENCOUNTER 2024-11-16 15:39 | Outpatient (CLI) | payer OTHER, MEDICAID, SELFPAY | END 2024-11-16 23:59 | disposition home or self-care (01) | LOC: LAB.DROPOF 11-20 15:40 | PROVIDERS: Visit Provider Nurse Practitioner | DX: Z01.818 Encounter for other preprocedural examination (principal) | CPT/HCPCS: 87086 ==

== ENCOUNTER 2025-01-12 07:47 | Inpatient (IN) | payer OTHER, SELFPAY ==
[2025-01-12] VITALS (34 sets, daily range): BP systolic 71–198; BP diastolic 37–128; PULSE 74–125; RESP 12–31; TEMP 36.6–37.5; O2SAT 72–99; BMI 45.7; BMI 46.0
[2025-01-12 07:59] LABS: Microscopic, Urine URINE MICROSCOPIC (MICROSCOPIC)
--- NOTE | 2025-01-12 08:01 | PC.NURSE ---
Dr Hightower at bedside
[2025-01-12 08:06] LABS: Appearance,Urine CLEAR (Clear); Bilirubin,Urine Negative (Negative); Blood, Urine TRACE-I (Negative); Color,Urine YELLOW (Yellow); Glucose,Urine (UA) Negative (Negative); Ketones,Urine Negative (Negative); Leukocyte Esterase,Urine TRACE (Negative); Nitrate,Urine Negative (Negative); PH,Urine 6.5 (5.0-8.5); Protein,Urine TRACE (Negative); Urobilinogen,Urine 0.2 EU/dl (0.2)
--- NOTE | 2025-01-12 08:07 | CT_ITS ---
FINAL REPORT TECHNIQUE: After the administration of intravenous contrast, axial images were obtained through the abdomen and pelvis by computed tomography. The study was performed with techniques to keep radiation dose as low as reasonably achievable, (ALARA). Individual dose reduction techniques using automated exposure control or adjustment of mA and/or kV according to the patient's size were employed. CLINICAL HISTORY: LLQ pain, fever, nausea COMPARISON: 11/08/2024 FINDINGS: Abdomen: The lung bases are clear. The liver and spleen are mildly enlarged, the liver measuring 19 cm, the spleen 13 cm. There is a 1.5 cm hypodense focus in the right lobe of the liver, that is stable in appearance over multiple years, likely a hemangioma. The gallbladder has been surgically resected. The pancreas and adrenals appear unremarkable. In the interval since the prior CT, the left ureteral stent has been removed. There is mild residual hydronephrosis and hydroureter, significantly decreased since the prior exam. The aorta is normal in caliber. There is no free fluid or adenopathy. Pelvis: The appendix is not identified. The bladder is decompressed. There is no free fluid. There are multiple small bilateral inguinal lymph nodes noted, similar to the prior exam. IMPRESSION: In the interval since the prior CT, the left ureteral stent has been removed. There is mild residual hydronephrosis and hydroureter, although significantly decreased since the prior exam. Mild hepatosplenomegaly, stable. Reviewed, Interpreted and Dictated by Taqueria Hodge MD Transcribed by Edith Rico Authenticated and [facility]
--- NOTE | 2025-01-12 08:20 | ED_ITS ---
Discharge Plan Disposition Patient Disposition: Admitted Chief Complaint: Abdominal Pain Referrals Follow up/Referrals: Provider,Referral, MD [Primary Care Provider] - See instructions Clinical Impressions Clinical Impression: Sepsis, Anaphylactic reaction Instructions Patient Instructions: DI for Acute Abdominal Pain Print Language Print Language: Faroese Discharge ED Provider: Phoenix Hgihtower General Adult HPI General Chief complaint: Abdominal Pain Stated complaint: Body aches, fever, abd. pain Time Seen by Provider: 01/12/25 07:52 Mode of Arrival: Family Vehicle Source of Information: Patient and Medical Record Description of Symptoms (Recalled from ER Triage Doc. by RN): Pt presents to ER with concerns of severe L ABD and L flank pain for seeral days, however last night she began to have severe nausea, chills, and subjuective fever. She took Tylenol 1000mg CO[employer]ULATING [employer] today. She has a significant hx of kidney stones, UTIs, and pyelonephritis. She is s/p total hysterectomy with ovaries and tubes, cholecystsectomy, and several stone surgies. She reports this doesn't feel like a kidney stone . She denies any diarrhea. History of Present Illness HPI narrative: Please note that above description of symptoms, in this electronic medical record under categorization of recalled from ER triage doctor by RN are reflective of an initial nursing assessment, however, is not reflective of my full history and physical exam that was personally taken and clarified. Consequentially, this preceding description of symptoms, which may include the patient's categorized chief complaint in the EMR, do not reflect my personal clinical impression, and the ultimate description of history of present illness and patient stated complaints should be deferred to this section of the note. Unless stated otherwise or congruent with this section of the note, additional signs, symptoms, or incongruence should be interpreted as inaccurate with my clinical impression. Related Data Allergies Allergy/AdvReac Type Severity Reaction Status Date / Time cefepime Allergy Severe Anaphylaxis Verified 01/12/25 12:17 codeine (CODEINE) Allergy Severe BLEEDING Verified 01/12/25 08:21 OF EYES AND NOSE ibuprofen Allergy Severe face Verified 01/12/25 08:21 swelling ketorolac (From TORADOL) Allergy Severe face Verified 01/12/25 08:21 swelling midazolam (From VERSED) Allergy Severe Anaphylaxis Verified 01/12/25 08:21 Penicillins Allergy Severe Hives Verified 11/16/24 19:40 sulfamethoxazole (From Allergy Severe Unknown Verified 01/12/25 08:21 BACTRIM) allergy reaction tramadol Allergy Severe face Verified 01/12/25 08:21 swelling trimethoprim (From BACTRIM) Allergy Severe Unknown Verified 01/12/25 08:21 allergy reaction aztreonam (AZTREONAM) Allergy Mild NA-NAUSEA/V Verified 01/12/25 08:21 OMITING gatifloxacin (From TEQUIN) Allergy Mild tremors Verified 01/12/25 08:21 cefaclor (CEFACLOR) Allergy Unknown Unknown Verified 01/12/25 08:21 allergy reaction doxycycline (DOXYCYCLINE) Allergy Unknown Hives Verified 01/12/25 08:21 [facility] Disclaimer: The information contained in this section may have been updated after the patient was seen, as this information can be updated by other users. 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 (Updated 01/12/25 @ 12:17 by Phoenix Hightower MD) Abnormal urinalysis Sepsis Axillary adenopathy Morbid obesity with BMI of 40.0-44.9, adult Chews tobacco Chest pain Lesion of liver greater than 1 cm in diameter Pyelonephritis Diverticulitis Puncture wound of hand, left Elevated serum hCG in female, not Hypokalemia Pyelonephritis Urolithiasis Exacerbation of reactive airway disease Pneumonia CAP (community acquired pneumonia) Flu syndrome Bronchitis Kurtz splints Achilles tendinitis Hypokalemia COVID-19 virus infection Nausea and vomiting TMJ arthralgia Pancreatitis Anxiety Hypertension Class 3 obesity Ureteral calculus, right Sepsis Sciatica Dental abscess Right flank pain Cough Leg pain Fracture of medial malleolus, right, closed Reactive airway disease with wheezing Bronchitis Sinusitis Ureteral calculus Renal colic Kidney stone on left side Poison eric dermatitis Cellulitis of breast Left flank pain Pain and swelling of left ankle Ankle pain, left Pain and swelling of right ankle Left knee pain Tight cast Cast discomfort Tibia/fibula fracture Encounter for laboratory testing for COVID-19 virus Renal colic on right side Pyelonephritis Hypertension Obstructive uropathy Left ureteral calculus Flank pain SIRS (systemic inflammatory response syndrome) Renal insufficiency Ureteral stent occlusion Hydronephrosis Contusion of coccyx Obesity (BMI 35.0-39.9 without comorbidity) Nephrolithiasis Diarrhea Hydronephrosis with urinary obstruction due to ureteral calculus Complicated UTI (urinary tract infection) Foot sprain Renal colic on left side Bruise Recurrent left lower quadrant abdominal pain Chronic pain Ovarian cyst Flank pain, acute Urinary tract infection Abscess after procedure Wound dehiscence, surgical Dehiscence of closure of skin Yeast dermatitis Surgical wound infection Cellulitis Abdominal pain Complex cyst of right ovary Cystitis Vomiting and diarrhea Epigastric pain Surgical History (Updated 01/12/25 @ 08:11 by Heather Novak, EVE) Hx of cholecystectomy H/O total hysterectomy with removal of both tubes and ovaries S/P ureteral stent placement Status post cystoscopy with ureteral stent placement Fracture of ankle, lateral malleolus, left, closed Fracture of tibial shaft, left, closed S/P unilateral salpingo-oophorectomy Family History Other No significant family history 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 (Updated 01/12/25 @ 08:12 by Heather Novak RN) Smoking Status: Light tobacco smoker tobacco type: smokeless tobacco second hand exposure: No alcohol intake: never counseling provided: none substance use type: denies use current occupational status: disabled Travel in the last 8 weeks?: None household members: none housing: house 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 current occupational exposures/hazards: No caffeine: No Have you lived/traveled outside [place] in past 30 days?: No Contact w/someone who lives/traveled outside US past 30 days?: No Exposure to someone with infectious disease in past 14 days?: No Do you have a fever (greater than 100.4 F or 38 C)?: Yes Have you tested positive for COVID-19?: No Exposed to someone with COVID-19 in past 14 days?: No Do you have a sore throat?: No Do you have a cough?: No Do you have any weakness?: No Do you have any diarrhea?: No Are you experiencing any unusual bleeding?: No Do you have any muscle aches/pain?: Yes Do you have any abdominal pain?: Yes Are you experiencing loss of taste or smell?: No Other 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 Have you received the Flu Vaccine for this season: No Have you received the Pneumonia Vaccine: No ROS Obtained: Yes All systems reviewed & no additional complaints except as documented Physical Exam General General appearance: alert and obese Comment: Malodorous, diaphoretic. Head Head exam: atraumatic and normocephalic Eye Eye exam: Present normal appearance, PERRL and EOMI Neck Neck exam: Present normal inspection, full ROM and trachea midline Respiratory Respiratory exam: Present normal lung sounds bilaterally; Absent respiratory distress, wheezes, stridor, accessory muscle use or prolonged expiratory phase Cardiovascular Cardiovascular exam: Present normal rhythm, tachycardia and other (Pulses equal symmetric in upper and lower extremities) Abdominal Exam Abdominal exam: Present soft; Absent distention, tenderness, guarding, rebound, rigidity or pulsatile mass Extremities Exam Extremities exam: Absent edema Back Exam Back exam: Present CVA tenderness (L); Absent CVA tenderness (R) Neurological Exam Neurological exam: Present alert, oriented X3 and CN II-XII intact; Absent motor sensory deficit Skin Skin exam: Present warm, dry and diaphoresis; Absent erythema Medical Decision Making Medical Records Medical records reviewed: Yes I reviewed the patient's medical records. Screening: Per USPSTF and CDC recommendations, given the prevalence of disease in our region, it is our hospital?s policy to screen for HIV and viral Hepatitis for all patients aged 18 and over and those with ongoing risk factors. Olu Inquiry Pt receiving controlled substance: No Olu was queried for this patient: No Vital Signs: 01/12/25 07:50 01/12/25 07:55 01/12/25 08:01 Temperature 99.5 F Temperature Source Oral Pulse Rate 118 H Pulse Rate [Right] 119 H Respiratory Rate 20 Blood Pressure 159/109 H 198/128 H Blood Pressure [Right Arm] 151/101 H Blood Pressure Mean 125 132 Blood Pressure Mean [Right Arm] 117 Blood Pressure Source [Right Arm] Automatic Cuff 02 Sat by Pulse Oximetry 96 95 Oxygen Delivery Method Room Air 01/12/25 08:55 01/12/25 09:09 01/12/25 09:11 Temperature Temperature Source Pulse Rate 109 H 94 H 119 H Pulse Rate [Right] Respiratory Rate Blood Pressure 166/97 H 152/95 H Blood Pressure [Right Arm] Blood Pressure Mean Blood Pressure Mean [Right Arm] Blood Pressure Source [Right Arm] 02 Sat by Pulse Oximetry 96 72 L 97 Oxygen Delivery Method Room Air 01/12/25 09:15 01/12/25 09:30 01/12/25 09:45 Temperature Temperature Source Pulse Rate 109 H 110 H 110 H Pulse Rate [Right] Respiratory Rate Blood Pressure 156/82 H 157/95 H 160/92 H Blood Pressure [Right Arm] Blood Pressure Mean Blood Pressure Mean [Right Arm] Blood Pressure Source [Right Arm] 02 Sat by Pulse Oximetry 96 93 L 96 Oxygen Delivery Method Room Air 01/12/25 11:04 01/12/25 12:01 Temperature Temperature Source Pulse Rate 74 Pulse Rate [Right] Respiratory Rate Blood Pressure 152/87 H 73/47 L Blood Pressure [Right Arm] Blood Pressure Mean 108 55 Blood Pressure Mean [Right Arm] Blood Pressure Source [Right Arm] 02 Sat by Pulse Oximetry Oxygen Delivery Method Lab Data Lab Results 01/12/25 07:52: Urine Color Yellow, Urine Appearance Clear, Urine pH 6.5, Ur Specific [place] 1.020, Urine Protein Trace, Urine Glucose (UA) Negative, Urine Ketones Negative, Urine Blood Trace-i, Urine Nitrate Negative, Urine Bilirubin Negative, Urine Urobilinogen 0.2, Ur Leukocyte Esterase Trace, Urine RBC 5-10, Urine WBC 3-5, Ur Squamous Epith Cells 5-10, Urine Bacteria 2+ 01/12/25 08:00: Sodium 138, Potassium 3.3 L, Chloride 109 H, Carbon Dioxide 24, Anion Gap 8.3, BUN 14, Creatinine 1.00, Estimated Creat Clear 60, Estimated GFR 62, Est GFR ( Amer) 75, Glucose 110 H, Calcium 8.9, Total Bilirubin 0.5, AST 24, ALT 23, Alkaline Phosphatase 94, Total Protein 6.7, Albumin 3.5, Globulin 3.2, Albumin/Globulin Ratio 1.1, Lipase 240 01/12/25 08:07: VBG pH 7.39, VBG pCO2 36.9, VBG pO2 51.7 H, VBG HCO3 22.0 L, VBG Total CO2 23.2, VBG O2 Saturation 87.5 H, VBG Base Excess -2.9 L, VBG Lactic Acid 1.7 01/12/25 08:18: WBC 17.0 H, RBC 4.60, Hgb 12.5, Hct 38.9, MCV 84.6, MCH 27.2, MCHC 32.1, RDW 14.2, Plt Count 312, MPV 9.8, Neut % (Auto) 83.1 H, Lymph % (Auto) 8.9 L, [place] % (Auto) 6.1, Eos % (Auto) 1.1, Baso % (Auto) 0.2, Neut # (Auto) 14.1 H, Lymph # (Auto) 1.5, [place] # (Auto) 1.0, Eos # (Auto) 0.2, Baso # (Auto) 0.0 01/12/25 11:12: SARS-CoV-2 (PCR) Not detected, Influenza A Untype (PCR) Not detected, Influenza Type B (PCR) Not detected 01/12/25 08:18 01/12/25 08:00 Orders (Tests/Meds): ED MEDICATIONS Generic Name Dose Route Start Last Admin Trade Name Freq PRN Reason Stop Dose Admin Vancomycin HCl 2,000 mg/ 250 mls @ 125 mls/hr 01/12/25 11:15 Sodium Chloride IV 01/12/25 13:14 ONCE ONE Levofloxacin/Dextrose 750 mg in 150 mls @ 100 mls/hr 01/12/25 12:07 Levofloxacin 750mg/150ml Premix IV 01/12/25 13:36 ONCE ONE Discontinued Medications Generic Name Dose Route Start Last Admin Trade Name Freq PRN Reason Stop Dose Admin Acetaminophen 1,000 mg 01/12/25 07:55 01/12/25 09:00 Acetaminophen 500mg Tab PO 01/12/25 07:56 Not Given ONCE ONE Acetaminophen 1,000 mg 01/12/25 08:07 01/12/25 09:01 Acetaminophen 1,000mg/100ml Vial IV 01/12/25 08:08 1,000 mg ONCE ONE Administration Diphenhydramine HCl 50 mg 01/12/25 12:07 Diphenhydramine 50mg/Ml Vial IV 01/12/25 12:08 ONCE ONE Epinephrine HCl 0.3 mg 01/12/25 12:07 Epinephrine 1 Mg/Ml Ampul IM 01/12/25 12:08 ONCE ONE Lactated Ringer's 1,000 mls @ 999 mls/hr 01/12/25 08:07 01/12/25 09:03 Lactated Ringer's 1000 Ml Bag IV 01/12/25 09:07 999 mls/hr .Q1H1M ONE Administration Cefepime HCl 2 gm/ Sodium 100 mls @ 200 mls/hr 01/12/25 11:05 01/12/25 11:39 Chloride IV 01/12/25 11:34 200 mls/hr ONCE ONE Administration Lactated Ringer's 1,000 mls @ 999 mls/hr 01/12/25 11:07 01/12/25 12:09 Lactated Ringer's 1000 Ml Bag IV 01/12/25 12:07 999 mls/hr .Q1H1M ONE Administration Iopamidol 75 ml 01/12/25 09:06 01/12/25 09:07 Iopamidol-370 (76%);100ml Bottle IV 01/12/25 09:07 75 ml ONCE ONE Administration Methylprednisolone Sodium Succinate 125 mg 01/12/25 12:07 Methylprednisolone Sod Succ 125mg Vial IV 01/12/25 12:08 ONCE ONE Miscellaneous 1 each 01/12/25 11:15 Vancomycin Consult Request NOTAPPLIC 02/11/25 11:14 CONSULT PHARMACY [facility] Ondansetron HCl 4 mg 01/12/25 08:07 01/12/25 09:01 Ondansetron 4mg/2ml Vial IV 01/12/25 08:08 4 mg ONCE ONE Administration Sodium Chloride 10 ml 01/12/25 09:06 01/12/25 09:07 Sodium Chloride 0.9% 10ml Syr (Rad Only) IV 01/12/25 09:07 10 ml ONCE ONE Administration ORDERS Category Date Time Status CT abdomen pelvis w con Stat Cat Scan 01/12/25 08:07 Completed CBC w/Auto Diff [Complete Blood Count Auto Diff] Stat Lab 01/12/25 08:18 Completed CMP [Comprehensive Metabolic Panel] Stat Lab 01/12/25 08:00 Completed Lipase Stat Lab 01/12/25 08:00 Completed Rapid PCR Covid and Flu A/B Stat Lab 01/12/25 11:12 Completed Trop I [Troponin I] Stat Lab 01/12/25 12:10 Ordered Troponin I Q3H Lab 01/12/25 15:15 Ordered Troponin I Q3H Lab 01/12/25 18:15 Ordered UA [Urinalysis and Microscopic] Stat Lab 01/12/25 07:52 Completed Blood Culture Stat Micro 01/12/25 08:18 Received Urine Culture Stat Micro 01/12/25 07:52 Received VBG [Venous Blood Gas] Stat RT 01/12/25 08:07 Completed Medical Decision Narrative: 39-year-old female history of hypertension, recurrent UTIs, nephrolithiasis, sepsis and septic shock secondary to nephrolithiasis, presenting with left flank pain. States that it started 2 days prior to this. Now having fevers, body aches, nausea without vomiting. Last bowel movement yesterday normal for her, no urinary symptoms. Came in out of concern for sepsis. History was obtained via conversation with patient. On arrival, patient hemodynamically stable, alert, oriented x4, appropriate, GCS 15, moving all extremities spontaneously, pupils equal and reactive to light. Full physical exam performed and significant for obese, malodorous patient who is in no acute distress, but tachycardic and hypertensive. Abdomen is soft, nontender on my exam, nondistended, no outward signs of abnormality. Minimal flank tenderness on the left side. She is diaphoretic, but pink and warm. Differential includes viral syndrome, sepsis, urinary tract infection, pneumonia, nephrolithiasis, intra- abdominal sepsis, among others. Patient placed on continuous cardiac monitoring and continuous pulse ox with initial blood pressure 166/97, heart rate 109, saturation 96% on room air. atient was given acetaminophen and Zofran, fluids for symptomatic management and correction of underlying abnormalities. Workup independently interpreted and significant for leukocytosis with neutrophilia. Nonactionable hematologic labs otherwise. Urinalysis negative. CT abdomen pelvis without acute intra- abdominal abnormality on independent interpretation. Conversation had with patient, she states she is never had cefepime for antibiosis. This was administered, patient began having anaphylaxis at the very beginning of the infusion. Epinephrine, Benadryl, Solu-Medrol given. Hypotensive, tachycardic, tachypneic, diaphoretic. I contacted hospital medicine and discussed this case at length, patient to be admitted for undifferentiated sepsis, clear blood cultures, anaphylaxis. On repeat evaluation, patient's blood pressure improved 90s over 60s. Much better after IM epi. Because patient high risk for clinical decompensation, deemed appropriate for inpatient admission. Results were relayed to patient who voiced understanding and patient was agreeable to inpatient admission and management. Patient was admitted to the hospital for further definitive management. [employer] disclaimer Much of this encounter note is an electronic investor relations coordinator spoken language to printed text. Electronic investor relations coordinator of the spoken language may permit errors. Although I have reviewed the note, some errors may still exist. Critical Care Critical Care Time Critical Care Time: Yes (sepsis, anaphylaxis) Attestation: On 01/12/25, the high probability of a clinically significant, sudden or life threatening deterioration of the following system(s) required my full and direct attention, intervention and personal management. The time I documented below is in addition to time spent performing reported procedures but includes the following listed in this critical care notation. Total Time Total Critical Care Time: 40
[2025-01-12 08:26] LABS: Bacteria,Urine 2+ /lpf
[2025-01-12 08:27] LABS: Basophils % 0.2 % (0.1-2.0); Eosinophils # 0.2 Kmm3 (0.0-0.4); Eosinophils % 1.1 % (0.1-12.0); Hematocrit 38.9 % (37.0-47.0); Hemoglobin 12.5 g/dL (12.2-16.2); Lymphocytes # 1.5 K/mm3 (0.7-4.5); Lymphocytes % 8.9 % (10-50); Mean Corpuscular HGB Conc 32.1 g/dL (31.8-35.4); Mean Corpuscular Hemoglobin 27.2 pg (27.0-31.2); Mean Corpuscular Volume 84.6 fl (81-99); Mean Platelet Volume 9.8 fl (7.4-10.4); Monocytes % 6.1 % (1.7-9.3); Neutrophils # 14.1 K/mm3 (1.8-7.8); Neutrophils % 83.1 % (37.0-80.0); Nucleated Red Blood Cells # 0 10^3/uL; Nucleated Red Blood Cells % 0 %; Platelet Count 312 K/mm3 (142-424); Red Cell Distribution Width 14.2 % (11.5-17.5); Red Cell Distribution Width-SD 43.8 fL
[2025-01-12 08:31] LABS: Lactate Venous 1.7 mmol/L (0.4-2.0); VBG Base Excess -2.9 mmol/L (-2.4-2.3); VBG Oxygen Saturation 87.5 % (50-70); VBG PCO2 36.9 mmol/L (35-51); VBG PH 7.39 mmol/L (7.31-7.41); VBG PO2 51.7 mmol/L (28-40); VBG Total CO2 23.2 mmol/L (23-27)
[2025-01-12 08:42] LABS: Alanine Aminotransferase 23 U/L (12-78); Albumin Level 3.5 g/dl (3.5-5.0); Albumin/Globulin Ratio 1.1 (1.1-1.8); Alkaline Phosphatase 94 U/L (38-126); Anion Gap 8.3 mEq/L (5-15); Aspartate Amino Transferase 24 U/L (14-36); Bilirubin,Total 0.5 mg/dl (0.2-1.3); Blood Urea Nitrogen 14 mg/dl (7-17); Calcium 8.9 mg/dl (8.4-10.2); Carbon Dioxide 24 mmol/L (22.0-30.0); Chloride 109 mmol/L (98-107); Creatinine Clearance Estimated 60 mL/min (50-200); Estimated Glomerular Filt Rate 62 ml/min (>60); GFR (African American) 75 ML/MIN (>60); Globulin 3.2 g/dL (1.3-3.2); Glucose 110 mg/dl (74-100); Lipase 240 U/L (23-300); Potassium 3.3 mmoL/L (3.5-5.1); Sodium 138 mmol/L (136-145); Total Protein,Serum 6.7 g/dl (6.3-8.2)
[2025-01-12] MEDS: ONDANSETRON 4MG/2ML VIAL 4 MG IV (09:01)
[2025-01-12] MEDS: ACETAMINOPHEN 1,000MG/100ML VIAL 1000 MG IV (09:01)
[2025-01-12] MEDS: LACTATED RINGERS 1000ML 1,000 ML 999 ML IV ×2 (09:03→12:09)
[2025-01-12] MEDS: IOPAMIDOL-370 (76%);100ML BOTTLE 75 ML IV (09:07)
[2025-01-12] MEDS: SODIUM CHLORIDE 0.9% 10ML SYR (RAD ONLY) 10 ML IV (09:07)
--- NOTE | 2025-01-12 11:05 | PC.NURSE ---
I rounded on the pt. She was resting with her eyes closed. I put her back on the vitals monitor. I provided her a warm blanket for comfort. no new complaints. no needs voiced. call armenta in reach.
[2025-01-12 11:15] LABS: Coronavirus 19, PCR Not Detected (NotDetected); Influenza A, PCR Not Detected (NotDetected); Influenza B, PCR Not Detected (NotDetected)
[2025-01-12] MEDS: CEFEPIME HCL 2 GM in 0.9 % SODIUM CHLORIDE 100 ML IV (11:39)
--- NOTE | 2025-01-12 11:44 | PC.NURSE ---
Pt reports nausea and pain
--- NOTE | 2025-01-12 11:47 | PC.NURSE ---
TRN hung cefepime 2g on pt. approx 1 minute after TRN started IV ABX pt stated that she began to have a reaction. pt unable to give specific information. pt states that everything feels funny .
[2025-01-12] MEDS: FAMOTIDINE 20MG/2ML VIAL 20 MG IV (12:00)
--- NOTE | 2025-01-12 12:00 | PC.NURSE ---
Pt had an anaphylaxis reaction to Cefepime. Pt had approx 5-10ml of medication whe she reported to feeling funny and hot . She refused to let staff keep vitals monitoring on her and wanted to use the bathroom. When she returned she was diaphoretic, experiencing SOA, redness, itching, and hives to her ABD & upper legs. She also is reporting urgency to have a bowel movement and pt's HR is 130-140s. Sr Hightower notified of this and ordered new meds: Benadryl IV, Solumedrol IV, Epinephrine 0.3mg IM, and pepcid IV. Orders given per NOV
--- NOTE | 2025-01-12 12:18 | PC.NURSE ---
NOTIFIED HS OF THE NEED FOR A BED TO ADMIT TO THE HOSPITALIST FOR SEPSIS/ANAPHYLAXIS
[2025-01-12] MEDS: METHYLPREDNISOLONE SOD SUCC 125MG VIAL 125 MG IV (12:21)
[2025-01-12] MEDS: EPINEPHrine 1 MG/ML AMPUL 0.3 MG IM (12:21)
[2025-01-12] MEDS: diphenhydrAMINE 50MG/ML VIAL 50 MG IV (12:21)
--- NOTE | 2025-01-12 12:23 | ECG_ITS ---
APPROVED REPORT Exam: Resting ECG HR:109 bpm ECG Measurements Heart Rate 109 AXES [place] 104 P 37 QRSd 92 QRS 85 QT 368 T 54 QTc 432 Conclusion Sinus tachycardia Electronically signed by : AVNI MARIEE, 01/12/2025 15:06:45
[2025-01-12] MEDS: LEVOFLOXACIN/D5W 750 MG/150 ML 750 MG/150 ML PIGGYBACK 100 MG IV (12:24)
--- NOTE | 2025-01-12 12:34 | PC.NURSE ---
Tried to straight stick Patient for a troponin but i was unable to get it, so the lab is on the way down to stick her.
--- NOTE | 2025-01-12 12:36 | PC.NURSE ---
Song from lab is in the room trying to stick the patient.
--- NOTE | 2025-01-12 12:47 | EXP.HP ---
History of Present Illness *Admission Date: 01/12/25 *Reason for visit:: left flank pain, Nausea and chills *History of present illness: Ms. Dumont is a 39-year-old female with previous hydronephrosis, left renal stent, morbid obesity, history of kidney stones. She presented to the hospital with complaint of left-sided abdominal and flank pain. Been going on for several days. Last night however she developed nausea, chills, subjective fevers. Denies anurag emesis. Fever improved with Tylenol. Significant history of infections and kidney stones. Made her concerned that she was developing sepsis. Presented to the ER for evaluation. White count elevated at 17. Kidney function normal with BUN 14, creatinine 1.0. CT of abdomen obtained showing improvement in hydronephrosis and interval removal of left renal stent. Patient was initially treated with IV cefepime and developed anaphylaxis even though she does not have prior history of allergy to cefepime in particular. Treated for anaphylaxis with Benadryl, epinephrine, steroids. Showing some improvement. Blood pressures remain soft. Received fluid bolus as well. Medicine consulted for admission and further management of sepsis and anaphylaxis. Admitted to ICU. On evaluation, patient is quite fatigued but alert and oriented x 4. On room air. Remains tachycardic. Blood pressure soft with MAP greater than 65. [facility] Disclaimer: The information contained in this section may have been updated after the patient was seen, as this information can be updated by other users. 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 Port-A-Cath in place Abnormal urinalysis Sepsis Axillary adenopathy Morbid obesity with BMI of 40.0-44.9, adult Chews tobacco Chest pain Lesion of liver greater than 1 cm in diameter Pyelonephritis Diverticulitis Puncture wound of hand, left Elevated serum hCG in female, not Hypokalemia Pyelonephritis Urolithiasis Exacerbation of reactive airway disease Pneumonia CAP (community acquired pneumonia) Flu syndrome Bronchitis Kurtz splints Achilles tendinitis Hypokalemia COVID-19 virus infection Nausea and vomiting TMJ arthralgia Pancreatitis Anxiety Hypertension Class 3 obesity Ureteral calculus, right Sepsis Sciatica Dental abscess Right flank pain Cough Leg pain Fracture of medial malleolus, right, closed Reactive airway disease with wheezing Bronchitis Sinusitis Ureteral calculus Renal colic Kidney stone on left side Poison eric dermatitis Cellulitis of breast Left flank pain Pain and swelling of left ankle Ankle pain, left Pain and swelling of right ankle Left knee pain Tight cast Cast discomfort Tibia/fibula fracture Encounter for laboratory testing for COVID-19 virus Renal colic on right side Pyelonephritis Hypertension Obstructive uropathy Left ureteral calculus Flank pain SIRS (systemic inflammatory response syndrome) Renal insufficiency Ureteral stent occlusion Hydronephrosis Contusion of coccyx Obesity (BMI 35.0-39.9 without comorbidity) Nephrolithiasis Diarrhea Hydronephrosis with urinary obstruction due to ureteral calculus Complicated UTI (urinary tract infection) Foot sprain Renal colic on left side Bruise Recurrent left lower quadrant abdominal pain Chronic pain Ovarian cyst Flank pain, acute Urinary tract infection Abscess after procedure Wound dehiscence, surgical Dehiscence of closure of skin Yeast dermatitis Surgical wound infection Cellulitis Abdominal pain Complex cyst of right ovary Cystitis Vomiting and diarrhea Epigastric pain Surgical History Hx of cholecystectomy H/O total hysterectomy with removal of both tubes and ovaries S/P ureteral stent placement Status post cystoscopy with ureteral stent placement Fracture of ankle, lateral malleolus, left, closed Fracture of tibial shaft, left, closed S/P unilateral salpingo-oophorectomy Family History Other No significant family history 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 Smoking Status: Light tobacco smoker tobacco type: smokeless tobacco second hand exposure: No alcohol intake: never counseling provided: none substance use type: denies use current occupational status: disabled Travel in the last 8 weeks?: None household members: none housing: house 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 current occupational exposures/hazards: No caffeine: No Have you lived/traveled outside [place] in past 30 days?: No Contact w/someone who lives/traveled outside [place] past 30 days?: No Exposure to someone with infectious disease in past 14 days?: No Do you have a fever (greater than 100.4 F or 38 C)?: Yes Have you tested positive for COVID-19?: No Exposed to someone with COVID-19 in past 14 days?: No Do you have a sore throat?: No Do you have a cough?: No Do you have any weakness?: No Do you have any diarrhea?: No Are you experiencing any unusual bleeding?: No Do you have any muscle aches/pain?: Yes Do you have any abdominal pain?: Yes Are you experiencing loss of taste or smell?: No Other 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 Have you received the Flu Vaccine for this season: No Have you received the Pneumonia Vaccine: No Review of Systems Review of Systems Review of systems (narrative): 14 point review of systems performed, pertinent positives and negatives as per HPI Meds Home Medications and Allergies Home Medications ?Medication ?Instructions ?Recorded ?Confirmed ?Type No Known Home Medications 01/12/25 01/12/25 History New Prescriptions to Start Prescriptions: Allergies Allergy/AdvReac Type Severity Reaction Status Date / Time cefepime Allergy Severe Anaphylaxis Verified 01/12/25 14:16 codeine (CODEINE) Allergy Severe BLEEDING Verified 01/12/25 14:16 OF EYES AND NOSE ibuprofen Allergy Severe face Verified 01/12/25 14:16 swelling ketorolac (From TORADOL) Allergy Severe face Verified 01/12/25 14:16 swelling midazolam (From VERSED) Allergy Severe Anaphylaxis Verified 01/12/25 14:16 Penicillins Allergy Severe Hives Verified 01/12/25 14:16 sulfamethoxazole (From Allergy Severe Unknown Verified 01/12/25 14:16 BACTRIM) allergy reaction tramadol Allergy Severe face Verified 01/12/25 14:16 swelling trimethoprim (From BACTRIM) Allergy Severe Unknown Verified 01/12/25 14:16 allergy reaction aztreonam (AZTREONAM) Allergy Mild NA-NAUSEA/V Verified 01/12/25 14:16 OMITING gatifloxacin (From TEQUIN) Allergy Mild tremors Verified 01/12/25 14:16 cefaclor (CEFACLOR) Allergy Unknown Unknown Verified 01/12/25 14:16 allergy reaction doxycycline (DOXYCYCLINE) Allergy Unknown Hives Verified 01/12/25 14:16 Exam Data for Last 24 hours Vital signs and Labs for Last 24 Hours: Temp Pulse Resp BP Pulse Ox O2 Del Method 99.5 F 111 H 24 73/50 L 94 L Room Air 01/12/25 07:50 01/12/25 12:15 01/12/25 12:15 01/12/25 12:15 01/12/25 12:15 01/12/25 09:45 Laboratory Results - last 24 hr 01/12/25 07:52: Urine Color Yellow, Urine Appearance Clear, Urine pH 6.5, Ur Specific [place] 1.020, Urine Protein Trace, Urine Glucose (UA) Negative, Urine Ketones Negative, Urine Blood Trace-i, Urine Nitrate Negative, Urine Bilirubin Negative, Urine Urobilinogen 0.2, Ur Leukocyte Esterase Trace, Urine RBC 5-10, Urine WBC 3-5, Ur Squamous Epith Cells 5-10, Urine Bacteria 2+ 01/12/25 08:00: Sodium 138, Potassium 3.3 L, Chloride 109 H, Carbon Dioxide 24, Anion Gap 8.3, BUN 14, Creatinine 1.00, Estimated Creat Clear 60, Estimated GFR 62, Est GFR ( Amer) 75, Glucose 110 H, Calcium 8.9, Total Bilirubin 0.5, AST 24, ALT 23, Alkaline Phosphatase 94, Total Protein 6.7, Albumin 3.5, Globulin 3.2, Albumin/Globulin Ratio 1.1, Lipase 240 01/12/25 08:07: VBG pH 7.39, VBG pCO2 36.9, VBG pO2 51.7 H, VBG HCO3 22.0 L, VBG Total CO2 23.2, VBG O2 Saturation 87.5 H, VBG Base Excess -2.9 L, VBG Lactic Acid 1.7 01/12/25 08:18: WBC 17.0 H, RBC 4.60, Hgb 12.5, Hct 38.9, MCV 84.6, MCH 27.2, MCHC 32.1, RDW 14.2, Plt Count 312, MPV 9.8, Neut % (Auto) 83.1 H, Lymph % (Auto) 8.9 L, [place] % (Auto) 6.1, Eos % (Auto) 1.1, Baso % (Auto) 0.2, Neut # (Auto) 14.1 H, Lymph # (Auto) 1.5, [place] # (Auto) 1.0, Eos # (Auto) 0.2, Baso # (Auto) 0.0 01/12/25 11:12: SARS-CoV-2 (PCR) Not detected, Influenza A Untype (PCR) Not detected, Influenza Type B (PCR) Not detected I & O for Last 24 hours: Intake & Output 01/09/25 01/10/25 01/11/25 01/12/25 23:59 23:59 23:59 23:59 Weight 113.398 kg Constitutional Constitutional: mild distress, morbidly obese, chronically ill appearing and cooperative *Routine HEENT Exam Head: Present normocephalic Eye: Present EOMI and PERRL ENT: Present mucous membranes moist *Routine Neck Exam Neck: Present supple; Absent lymphadenopathy *Routine Respiratory Exam Respiratory: Present CTA bilaterally; Absent rhonchi, wheezes or crackles *Routine Cardiovascular Exam Cardiovascular: Present tachycardia *Routine Abdominal Exam Abdominal: Present soft, normoactive bowel sounds and tenderness (Left hemiabdomen); Absent distended *Routine Rectal Exam Rectal:: deferred *Routine Genitalia Exam Genitalia:: deferred *Routine Extremities Exam Extremities: Absent cyanosis, clubbing or edema *Routine Skin Exam Skin: Present warm; Absent rash *Routine Neurological Exam Neurological: Present alert, oriented X3 and moving all extremities; Absent altered mental status Assessment and Plan *Assessment and plan (1) Sepsis: Status: Resolved Category: Medical Code(s): A41.9 - Sepsis, unspecified organism (2) Anaphylactic reaction: Status: Acute Category: Medical Code(s): T78.2XXA - Anaphylactic shock, unspecified, initial encounter (3) Pyelonephritis: Status: Acute Category: Medical Code(s): N12 - Tubulo-interstitial nephritis, not specified as acute or chronic (4) Complicated urinary tract infection: Status: Acute Category: Medical Code(s): N39.0 - Urinary tract infection, site not specified (5) Hydronephrosis: Status: Acute Qualifiers: Hydronephrosis type: with other ureteral stricture Qualified Code(s): N13.1 - Hydronephrosis with ureteral stricture, not elsewhere classified Category: Medical Code(s): N13.30 - Unspecified hydronephrosis (6) Kidney stone: Status: Acute Category: Medical Code(s): N20.0 - Calculus of kidney (7) Lesion of right lobe of liver: Status: Acute Category: Medical Code(s): K76.9 - Liver disease, unspecified (8) Left flank pain: Status: Acute Category: Medical Code(s): R10.9 - Unspecified abdominal pain (9) Morbid obesity: Status: Chronic Category: Medical Code(s): E66.01 - Morbid (severe) obesity due to excess calories Plan The patient is a 39-year-old female with a long history of nephrolithiasis who presents with left flank pain and symptoms of sepsis. Initially treated with cefepime and developed anaphylaxis. Responding to treatment for anaphylaxis. Discussed case with ER physician, request admission for further management of infection, sepsis, anaphylaxis. I agreed to admit for further care. Responding to fluids, epinephrine, steroids and Benadryl. Will continue Levaquin for possible infection. Necessitating inpatient care in the ICU. Problems addressed as follows: Hydronephrosis Pyelonephritis Sepsis Anaphylaxis -Meeting sepsis criteria with leukocytosis, tachycardia, infection associated with hydronephrosis. Remains afebrile. - Anaphylaxis to cefepime, transitioned to Levaquin 750 mg daily. Continue vancomycin -Urine culture pending. Repeat CBC, CMP, magnesium ordered for the morning -CT of abdomen obtained showing hydronephrosis with interval improvement. Stent removed. - White count elevated to 17. Urine with trace blood, negative nitrate, trace leuk esterase. 2+ bacteria. Blood and urine cultures pending - Repeat CBC, CMP, magnesium ordered for the morning. -Kidney function with BUN 14, creatinine 1.0 -Continue pain control with hydrocodone 5 mg as needed every 4 hours. -Continue tamsulosin 0.4 mg daily Social Barriers and Follow-Up Compliance - The patient has significant social barriers, including lack of transportation and a history of missed appointments, contributing to delayed stent removal and suboptimal follow-up. - Engage renal social worker and case management immediately to address these issues and coordinate a comprehensive outpatient care plan, including timely follow-up with urology and primary care. Morbid obesity complicates all aspects of her care. Full code Regular diet Lovenox 40 mg subcu bid
--- NOTE | 2025-01-12 13:03 | PC.NURSE ---
Attempted to call report to ICU nurse. Nurse will need call back shortly
--- NOTE | 2025-01-12 13:14 | PC.NURSE ---
Gave report to Darya Lea RN
[2025-01-12 13:30] LABS: Troponin I 0.06 ng/ml (0.00-0.034)
--- NOTE | 2025-01-12 13:57 | PC.NURSE ---
pt arrived to room 218 @1345 via stretcher from ER.
[2025-01-12] MEDS: VANCOMYCIN HCL 2,000 MG in 0.9 % SODIUM CHLORIDE 250 ML 125 MG IV (14:13)
[2025-01-12 16:17] LABS: Troponin I 0.23 ng/ml (0.00-0.034)
[2025-01-12] MEDS: HYDROCODONE/APAP 5/325 MG TABLET 1 TAB PO ×2 (18:24→22:34)
[2025-01-12 19:34] LABS: Troponin I 0.18 ng/ml (0.00-0.034)
[2025-01-13] VITALS (7 sets, daily range): BP systolic 124–151; BP diastolic 66–100; PULSE 80–102; RESP 16–22; TEMP 36.3–36.6; O2SAT 90–98; BMI 46.9
[2025-01-13] MEDS: HYDROCODONE/APAP 5/325 MG TABLET 1 TAB PO ×3 (07:42→20:25)
[2025-01-13 09:27] LABS: Basophils % 0.2 % (0.1-2.0); Eosinophils # 0.1 Kmm3 (0.0-0.4); Eosinophils % 0.3 % (0.1-12.0); Hematocrit 39.2 % (37.0-47.0); Hemoglobin 12.6 g/dL (12.2-16.2); Lymphocytes # 0.9 K/mm3 (0.7-4.5); Lymphocytes % 5.3 % (10-50); Mean Corpuscular HGB Conc 32.1 g/dL (31.8-35.4); Mean Corpuscular Hemoglobin 27.6 pg (27.0-31.2); Mean Corpuscular Volume 85.8 fl (81-99); Mean Platelet Volume 9.9 fl (7.4-10.4); Monocytes # 0.8 K/mm3 (0.1-1.0); Monocytes % 4.4 % (1.7-9.3); Neutrophils # 15.8 K/mm3 (1.8-7.8); Neutrophils % 89.2 % (37.0-80.0); Nucleated Red Blood Cells # 0 10^3/uL; Nucleated Red Blood Cells % 0 %; Platelet Count 300 K/mm3 (142-424); Red Blood Count 4.57 M/mm3 (4.20-5.40); Red Cell Distribution Width 14.3 % (11.5-17.5); Red Cell Distribution Width-SD 45.1 fL; White Blood Count 17.7 K/mm3 (4.8-10.8)
[2025-01-13 09:28] LABS: Albumin Level 3.3 g/dl (3.5-5.0); Chloride 112 mmol/L (98-107); Potassium 4.1 mmoL/L (3.5-5.1); Sodium 139 mmol/L (136-145)
[2025-01-13 09:31] LABS: Alanine Aminotransferase 29 U/L (12-78); Albumin/Globulin Ratio 1.2 (1.1-1.8); Alkaline Phosphatase 76 U/L (38-126); Anion Gap 11.1 mEq/L (5-15); Aspartate Amino Transferase 29 U/L (14-36); Bilirubin,Total 0.2 mg/dl (0.2-1.3); Blood Urea Nitrogen 24 mg/dl (7-17); Carbon Dioxide 20 mmol/L (22.0-30.0); Creatinine Clearance Estimated 57 mL/min (50-200); Estimated Glomerular Filt Rate 62 ml/min (>60); GFR (African American) 75 ML/MIN (>60); Globulin 2.8 g/dL (1.3-3.2); Total Protein,Serum 6.1 g/dl (6.3-8.2)
[2025-01-13 09:32] LABS: Calcium 8.5 mg/dl (8.4-10.2); Glucose 205 mg/dl (74-100); Magnesium 1.8 mg/dl (1.6-2.3)
[2025-01-13] MEDS: LEVOFLOXACIN/D5W 750 MG/150 ML 750 MG/150 ML PIGGYBACK 100 MG IV (10:11)
[2025-01-13] MEDS: ENOXAPARIN 40MG/0.4ML SYRINGE 40 MG SUBCUT (10:11)
--- NOTE | 2025-01-13 11:21 | EXP.PHA.CONS ---
Pharmacy Consult Date: 01/13/25 Time: 11:21 Referring provider: DR. DAVIS Reason for Consult:: VANCOMYCIN DOSING Allergies Allergy/AdvReac Type Severity Reaction Status Date / Time cefepime Allergy Severe Anaphylaxis Verified 01/12/25 14:16 codeine (CODEINE) Allergy Severe BLEEDING Verified 01/12/25 14:16 OF EYES AND NOSE ibuprofen Allergy Severe face Verified 01/12/25 14:16 swelling ketorolac (From TORADOL) Allergy Severe face Verified 01/12/25 14:16 swelling midazolam (From VERSED) Allergy Severe Anaphylaxis Verified 01/12/25 14:16 Penicillins Allergy Severe Hives Verified 01/12/25 14:16 sulfamethoxazole (From Allergy Severe Unknown Verified 01/12/25 14:16 BACTRIM) allergy reaction tramadol Allergy Severe face Verified 01/12/25 14:16 swelling trimethoprim (From BACTRIM) Allergy Severe Unknown Verified 01/12/25 14:16 allergy reaction aztreonam (AZTREONAM) Allergy Mild NA-NAUSEA/V Verified 01/12/25 14:16 OMITING gatifloxacin (From TEQUIN) Allergy Mild tremors Verified 01/12/25 14:16 cefaclor (CEFACLOR) Allergy Unknown Unknown Verified 01/12/25 14:16 allergy reaction doxycycline (DOXYCYCLINE) Allergy Unknown Hives Verified 01/12/25 14:16 Home Medications ?Medication ?Instructions ?Recorded ?Confirmed ?Type No Known Home Medications 01/12/25 01/12/25 History New Prescriptions to Start Prescriptions: Height: 1.57 m Weight: 115.666 kg Laboratory Results:: Laboratory Results - last 24 hr 01/12/25 11:12: SARS-CoV-2 (PCR) Not detected, Influenza A Untype (PCR) Not detected, Influenza Type B (PCR) Not detected 01/12/25 15:44: Troponin I 0.23 H 01/12/25 18:12: Troponin I 0.18 H 01/12/25 : Troponin I 0.06 H 01/13/25 09:00: WBC 17.7 H, RBC 4.57, Hgb 12.6, Hct 39.2, MCV 85.8, MCH 27.6, MCHC 32.1, RDW 14.3, Plt Count 300, MPV 9.9, Neut % (Auto) 89.2 H, Lymph % (Auto) 5.3 L, [place] % (Auto) 4.4, Eos % (Auto) 0.3, Baso % (Auto) 0.2, Neut # (Auto) 15.8 H, Lymph # (Auto) 0.9, [place] # (Auto) 0.8, Eos # (Auto) 0.1, Baso # (Auto) 0.0, Sodium 139, Potassium 4.1 D, Chloride 112 H, Carbon Dioxide 20 L, Anion Gap 11.1, BUN 24 H D, Creatinine 1.00, Estimated Creat Clear 57, Estimated GFR 62, Est GFR ( Amer) 75, Glucose 205 H, Calcium 8.5, Magnesium 1.8, Total Bilirubin 0.2, AST 29, ALT 29 D, Alkaline Phosphatase 76, Total Protein 6.1 L, Albumin 3.3 L, Globulin 2.8, Albumin/Globulin Ratio 1.2 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: 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 (Updated 01/12/25 @ 23:51 by Stuart Davis MD) Port-A-Cath in place Abnormal urinalysis Sepsis Axillary adenopathy Morbid obesity with BMI of 40.0-44.9, adult Chews tobacco Chest pain Lesion of liver greater than 1 cm in diameter Pyelonephritis Diverticulitis Puncture wound of hand, left Elevated serum hCG in female, not Hypokalemia Pyelonephritis Urolithiasis Exacerbation of reactive airway disease Pneumonia CAP (community acquired pneumonia) Flu syndrome Bronchitis Kurtz splints Achilles tendinitis Hypokalemia COVID-19 virus infection Nausea and vomiting TMJ arthralgia Pancreatitis Anxiety Hypertension Class 3 obesity Ureteral calculus, right Sepsis Sciatica Dental abscess Right flank pain Cough Leg pain Fracture of medial malleolus, right, closed Reactive airway disease with wheezing Bronchitis Sinusitis Ureteral calculus Renal colic Kidney stone on left side Poison eric dermatitis Cellulitis of breast Left flank pain Pain and swelling of left ankle Ankle pain, left Pain and swelling of right ankle Left knee pain Tight cast Cast discomfort Tibia/fibula fracture Encounter for laboratory testing for COVID-19 virus Renal colic on right side Pyelonephritis Hypertension Obstructive uropathy Left ureteral calculus Flank pain SIRS (systemic inflammatory response syndrome) Renal insufficiency Ureteral stent occlusion Hydronephrosis Contusion of coccyx Obesity (BMI 35.0-39.9 without comorbidity) Nephrolithiasis Diarrhea Hydronephrosis with urinary obstruction due to ureteral calculus Complicated UTI (urinary tract infection) Foot sprain Renal colic on left side Bruise Recurrent left lower quadrant abdominal pain Chronic pain Ovarian cyst Flank pain, acute Urinary tract infection Abscess after procedure Wound dehiscence, surgical Dehiscence of closure of skin Yeast dermatitis Surgical wound infection Cellulitis Abdominal pain Complex cyst of right ovary Cystitis Vomiting and diarrhea Epigastric pain Assessment and Plan Assessment and plan all Dx Assessment and Plan for all problems:: Pharmacokinetic dosing service Objective: Patient: Floor: Age: 39 yo Serum creatinine: 1.00 mg/dL Height: 61.8 Inches Weight (kg): 115.7 Assessment: IBW (kg): 49.64 Dosing wt(kg): 115.7 Estimated Creatinine clearance (ml/min): 59.2 CRCL method: Cockcroft and Gault using ibw(default). Drug selected: Vancomycin Loading dose (mg): Vd (liters): 92.6 (factor used: 0.8 L/kg) Pan (hr-1): 0.054 Half life (hrs): 12.84 CLvanco=?? 5.000 L/hr Recommended dose: 2000 mg Interval: 18 hrs Infusion time (hrs): 2.0 Predicted peak (mcg/mL): 32.9 Predicted trough (mcg/mL): 13.87 Total body weight is being used for vancomycin dosing. Recommendations: Give Vancomycin 2000 mg q 18 hrs with an expected Cpeak of 32.9 mcg/ml and an expected Ctrough of 13.87 mcg/ml AUC 0-24 /MARY Data: MARY 0.5 mcg/mL:?? AUC/MARY:? 1066.7 MARY 1.0 mcg/mL:?? AUC/MARY:? 533.3 --------- MARY 1.5 mcg/mL:?? AUC/MARY:? 355.6 MARY 2.0 mcg/mL:?? AUC/MARY:? 266.7 Thank you for the consult, will continue to follow. -RAY BAKERD
[2025-01-13] MEDS: VANCOMYCIN HCL 2,000 MG in 0.9 % SODIUM CHLORIDE 250 ML 125 MG IV (12:18)
[2025-01-13] MEDS: NAPROXEN 500MG TABLET 500 MG PO (12:20)
[2025-01-13] MEDS: FUROSEMIDE 40MG/4ML VIAL 40 MG IV (13:45)
--- NOTE | 2025-01-13 13:47 | P.PN_ITS ---
Subjective *Date: 01/13/25 *Time: 13:47 Interval history: More stable today. Having headache today. Still having flank pain but showing improvement. Preliminary cultures show staph epi, concern for contaminant but cannot rule out. Stable on room air. No nausea or vomiting. Medical Exam Vital signs and Labs for Last 24 Hours: Vital Signs Temp Pulse Pulse Resp BP Pulse Ox O2 Del Method 01/13/25 12:27 Room Air 01/13/25 12:00 97.7 F 102 H 18 146/100 H 96 Room Air 01/13/25 11:00 Room Air 01/13/25 09:00 Room Air 01/13/25 08:00 Room Air 01/13/25 08:00 97.4 F L 88 18 144/87 H 94 L Room Air 01/13/25 06:43 Room Air 01/13/25 05:00 Room Air 01/13/25 04:00 97.7 F 80 18 128/66 91 L Room Air 01/13/25 03:00 Room Air 01/13/25 01:00 Room Air 01/13/25 01:00 87 22 124/77 90 L Room Air 01/13/25 00:00 96 H 93 L Room Air 01/13/25 00:00 90 01/13/25 00:00 98 F 86 18 151/83 H 95 Room Air 01/12/25 23:00 88 16 115/78 93 L Room Air 01/12/25 22:55 Room Air 01/12/25 22:00 77 12 99/47 L 93 L Room Air 01/12/25 20:55 81 16 129/74 92 L Room Air 01/12/25 20:55 Room Air 01/12/25 20:00 84 01/12/25 20:00 98.1 F 83 16 111/84 94 L Room Air 01/12/25 19:49 92 L Room Air 01/12/25 18:51 86 15 127/74 93 L Room Air 01/12/25 18:51 Room Air 01/12/25 18:00 84 17 118/74 94 L Room Air 01/12/25 17:00 Room Air 01/12/25 17:00 83 18 105/71 L 93 L Room Air 01/12/25 16:00 90 01/12/25 16:00 90 17 98/57 L 92 L Room Air 01/12/25 16:00 91 H 17 98/67 L 92 L Room Air 01/12/25 15:00 Room Air 01/12/25 15:00 91 H 20 105/39 L 90 L Room Air 01/12/25 14:00 96 H 20 95/53 L 94 L Room Air Intake and Output 01/12/25 01/13/25 01/13/25 23:59 07:59 15:59 Intake Total 1370 / 3610 140 / 620 480 / 620 Output Total 0 / 0 Balance 1370 / 3610 140 / 620 480 / 620 Intake: Intake, Oral Amount 120 / 260 140 / 620 480 / 620 Intake, Total IV Amount 1250 / 1250 Lactated Ringers 1000ML 1,000 1000 / 1000 ml @ 999 mls/hr IV .Q1H1M ONE Rx#:[id number] Vancomycin HCl 2,000 mg In 0.9 250 / 250 % Sodium Chloride 250 ml @ 125 mls/hr IV ONCE ONE Rx#:[id number] Output: Output, Urine Amount 0 / 0 Other: Number of Unmeasured Voids 1 Weight 115.666 kg 115.666 kg Patient Weight 01/13/25 23:59 Weight 115.666 kg Laboratory Results - last 24 hr 01/12/25 15:44: Troponin I 0.23 H 01/12/25 18:12: Troponin I 0.18 H 01/13/25 09:00: WBC 17.7 H, RBC 4.57, Hgb 12.6, Hct 39.2, MCV 85.8, MCH 27.6, MCHC 32.1, RDW 14.3, Plt Count 300, MPV 9.9, Neut % (Auto) 89.2 H, Lymph % (Auto) 5.3 L, Harris % (Auto) 4.4, Eos % (Auto) 0.3, Baso % (Auto) 0.2, Neut # (Auto) 15.8 H, Lymph # (Auto) 0.9, Harris # (Auto) 0.8, Eos # (Auto) 0.1, Baso # (Auto) 0.0, Sodium 139, Potassium 4.1 D, Chloride 112 H, Carbon Dioxide 20 L, Anion Gap 11.1, BUN 24 H D, Creatinine 1.00, Estimated Creat Clear 57, Estimated GFR 62, Est GFR ( Amer) 75, Glucose 205 H, Calcium 8.5, Magnesium 1.8, Total Bilirubin 0.2, AST 29, ALT 29 D, Alkaline Phosphatase 76, Total Protein 6.1 L, Albumin 3.3 L, Globulin 2.8, Albumin/Globulin Ratio 1.2 I & O for Labs for Last 24 Hours: Intake & Output 01/10/25 01/11/25 01/12/25 01/13/25 23:59 23:59 23:59 23:59 Intake Total 3470 / 3610 620 / 620 Output Total 0 / 0 Balance 3470 / 3610 620 / 620 Weight 113.511 kg 115.666 kg Microbiology Reports for the Last 24 Hours: Microbiology 01/12/25 08:18 Blood Blood Culture - Preliminary 01/12/25 13:50 Anus CRE Surveillance Culture - Final 01/12/25 08:18 Blood Blood Culture - Preliminary Constitutional: Present no acute distress, morbidly obese, chronically ill appearing and cooperative Head: Present atraumatic and normocephalic ENT: Present normal exam Respiratory: Present normal respiratory effort; Absent rhonchi, wheezes or crackles Cardiac: Present Reg Rate and Rhythm GI: Present soft and normal bowel sounds; Absent distention or tenderness Comments:: Left CVA tenderness to percussion. Patient jumped out of the bed, negative CVA tenderness on right Extremities: Present normal inspection and full ROM Skin: Present intact; Absent erythema Neuro: Present Grossly Intact, alert, awake, oriented x 3 and moves all extremities Assessment and Plan *Assessment and plan (1) Sepsis: Status: Resolved Category: Medical Code(s): A41.9 - Sepsis, unspecified organism (2) Anaphylactic reaction: Status: Acute Category: Medical Code(s): T78.2XXA - Anaphylactic shock, unspecified, initial encounter (3) Pyelonephritis: Status: Acute Category: Medical Code(s): N12 - Tubulo-interstitial nephritis, not specified as acute or chronic (4) Complicated urinary tract infection: Status: Acute Category: Medical Code(s): N39.0 - Urinary tract infection, site not specified (5) Hydronephrosis: Status: Acute Qualifiers: Hydronephrosis type: with other ureteral stricture Qualified Code(s): N13.1 - Hydronephrosis with ureteral stricture, not elsewhere classified Category: Medical Code(s): N13.30 - Unspecified hydronephrosis (6) Kidney stone: Status: Acute Category: Medical Code(s): N20.0 - Calculus of kidney (7) Lesion of right lobe of liver: Status: Acute Category: Medical Code(s): K76.9 - Liver disease, unspecified (8) Left flank pain: Status: Acute Category: Medical Code(s): R10.9 - Unspecified abdominal pain (9) Morbid obesity: Status: Chronic Category: Medical Code(s): E66.01 - Morbid (severe) obesity due to excess calories Plan The patient is a 39-year-old female with a long history of nephrolithiasis who presents with left flank pain and symptoms of sepsis. Initially treated with cefepime and developed anaphylaxis. Responding to treatment for anaphylaxis. Discussed case with ER physician, request admission for further management of infection, sepsis, anaphylaxis. I agreed to admit for further care. Blood pressure stabilized today. Tolerating Levaquin for possible infection. Downgraded to MedSurg given stability. Will monitor for another 24 hours. Problems addressed as follows: Hydronephrosis Pyelonephritis Sepsis Anaphylaxis - Meeting sepsis criteria with leukocytosis, tachycardia, infection associated w ith hydronephrosis. Remains afebrile. - Continue Levaquin 750 mg daily. Continue vancomycin - White count 17. Hemoglobin 13. Kidney function stable with BUN 24, creatinine 1. - Urine culture pending. Repeat CBC, CMP, magnesium ordered for the morning - Urine with trace blood, negative nitrate, trace leuk esterase. 2+ bacteria. Blood and urine cultures pending -Continue pain control with hydrocodone 5 mg as needed every 4 hours. -Initiate naproxen 500 mg twice daily as needed -Continue tamsulosin 0.4 mg daily - Preliminary blood cultures with staph epi, concern for possible contaminant. Will monitor for 24 more hours. Social Barriers and Follow-Up Compliance - The patient has significant social barriers, including lack of transportation and a history of missed appointments, contributing to delayed stent removal and suboptimal follow-up. - Engage secondary social studies teacher and case management immediately to address these issues and coordinate a comprehensive outpatient care plan, including timely follow-up with urology and primary care. Morbid obesity complicates all aspects of her care. Full code Regular diet Lovenox 40 mg subcu bid
--- NOTE | 2025-01-13 16:47 | PC.NURSE ---
AOX4, HAS RESTED IN BED FOR MOST OF SHIFT. AMBULATES INDEPENDENTLY TO RESTROOM. TOLERATING ROOM AIR. C/O HEADACHE THAT WAS ALLEVIATED WITH NAPROXEN.
[2025-01-13] MEDS: SENNOSIDES 8.6MG/DOCUSATE 50MG TABLET 1 TAB PO (20:25)
[2025-01-13] MEDS: TAMSULOSIN 0.4MG CAPSULE 0.4 MG PO (20:25)
--- NOTE | 2025-01-13 20:30 | PC.NURSE ---
Pt refused HS lovenox, this nurse did educate pt on importance of medication.
[2025-01-14] VITALS: BP 155/77; PULSE 91; RESP 16; TEMP 36.4; O2SAT 95
[2025-01-14 04:00] VITALS: BP 132/101; PULSE 81; RESP 16; TEMP 36.4; O2SAT 92; BMI 46.5
[2025-01-14] MEDS: VANCOMYCIN HCL 2,000 MG in 0.9 % SODIUM CHLORIDE 250 ML 125 MG IV (05:39)
[2025-01-14] MEDS: NAPROXEN 500MG TABLET 500 MG PO (05:45)
--- NOTE | 2025-01-14 05:49 | PC.NURSE ---
Pt has rested well this shift and has c/o moderate to severe lower back pain and was treated per NOV. Pt is currently tolerating IV antibiotics well. Pt denies needs when asked and has had no other acute changes to note this shift.
[2025-01-14 08:00] VITALS: BP 121/75; PULSE 88; RESP 18; TEMP 36.4; O2SAT 99
[2025-01-14 08:00] LABS: Alanine Aminotransferase 24 U/L (12-78); Albumin Level 3.3 g/dl (3.5-5.0); Alkaline Phosphatase 71 U/L (38-126); Anion Gap 9.6 mEq/L (5-15); Aspartate Amino Transferase 24 U/L (14-36); Bilirubin,Total 0.2 mg/dl (0.2-1.3); Blood Urea Nitrogen 32 mg/dl (7-17); Calcium 8.1 mg/dl (8.4-10.2); Carbon Dioxide 24 mmol/L (22.0-30.0); Chloride 111 mmol/L (98-107); Creatinine Clearance Estimated 63 mL/min (50-200); Estimated Glomerular Filt Rate 70 ml/min (>60); GFR (African American) 84 ML/MIN (>60); Globulin 3.2 g/dL (1.3-3.2); Glucose 134 mg/dl (74-100); Potassium 3.6 mmoL/L (3.5-5.1); Sodium 141 mmol/L (136-145); Total Protein,Serum 6.5 g/dl (6.3-8.2)
[2025-01-14] MEDS: HYDROCODONE/APAP 5/325 MG TABLET 1 TAB PO ×2 (08:00→21:17)
[2025-01-14 08:02] LABS: Basophils % 0.2 % (0.1-2.0); Eosinophils # 0.1 Kmm3 (0.0-0.4); Eosinophils % 0.6 % (0.1-12.0); Hematocrit 37.5 % (37.0-47.0); Hemoglobin 11.9 g/dL (12.2-16.2); Lymphocytes # 2.6 K/mm3 (0.7-4.5); Lymphocytes % 18.2 % (10-50); Mean Corpuscular HGB Conc 31.7 g/dL (31.8-35.4); Mean Corpuscular Hemoglobin 27.5 pg (27.0-31.2); Mean Corpuscular Volume 86.8 fl (81-99); Mean Platelet Volume 9.8 fl (7.4-10.4); Monocytes # 0.9 K/mm3 (0.1-1.0); Monocytes % 6.3 % (1.7-9.3); Neutrophils # 10.6 K/mm3 (1.8-7.8); Neutrophils % 73.9 % (37.0-80.0); Nucleated Red Blood Cells # 0 10^3/uL; Nucleated Red Blood Cells % 0 %; Platelet Count 304 K/mm3 (142-424); Red Blood Count 4.32 M/mm3 (4.20-5.40); Red Cell Distribution Width 14.2 % (11.5-17.5); Red Cell Distribution Width-SD 45.5 fL; White Blood Count 14.3 K/mm3 (4.8-10.8)
[2025-01-14] MEDS: LEVOFLOXACIN/D5W 750 MG/150 ML 750 MG/150 ML PIGGYBACK 100 MG IV (11:25)
[2025-01-14 12:00] VITALS: BP 137/98; PULSE 96; RESP 20; TEMP 36.4; O2SAT 96
--- NOTE | 2025-01-14 13:11 | EXP.ACUTE.PN ---
Subjective *Date: 01/14/25 *Time: 17:24 Interval history: Feeling better today. Remained stable on room air. Headache resolved. Flank pain improving. Cultures continue to show staph epi. Concern for contaminant versus true infection. As it is to cultures in less than 24 hours, will repeat blood cultures today. Stable on room air. No nausea or vomiting. Tolerating IV antibiotics. Medical Exam Vital signs and Labs for Last 24 Hours: Vital Signs Temp Pulse Resp BP Pulse Ox O2 Del Method 01/14/25 12:39 Room Air 01/14/25 12:00 97.6 F 96 H 20 137/98 H 96 Room Air 01/14/25 11:00 Room Air 01/14/25 09:00 Room Air 01/14/25 08:00 97.5 F L 88 18 121/75 99 Room Air 01/14/25 08:00 Room Air 01/14/25 06:37 Room Air 01/14/25 05:00 Room Air 01/14/25 04:00 97.6 F 81 16 132/101 H 92 L Room Air 01/14/25 03:00 Room Air 01/14/25 01:00 Room Air 01/14/25 00:00 97.6 F 91 H 16 155/77 H 95 Room Air 01/13/25 23:00 Room Air 01/13/25 21:00 Room Air 01/13/25 20:00 Room Air 01/13/25 20:00 97.9 F 102 H 16 141/89 H 97 Room Air 01/13/25 18:11 Room Air 01/13/25 16:37 Room Air 01/13/25 16:00 97.9 F 97 H 18 139/88 98 Room Air 01/13/25 15:00 Room Air Intake and Output 01/13/25 01/14/25 01/14/25 23:59 07:59 15:59 Intake Total 450 / 1670 360 / 920 560 / 920 Output Total 0 / 0 0 / 0 0 / 0 Balance 450 / 1670 360 / 920 560 / 920 Intake: Intake, Oral Amount 450 / 1670 360 / 920 560 / 920 Output: Output, Urine Amount 0 / 0 0 / 0 0 / 0 Other: Number of Unmeasured Voids 1 1 0 Weight 114.804 kg Patient Weight 01/14/25 23:59 Weight 114.804 kg Laboratory Results - last 24 hr 01/14/25 07:20: WBC 14.3 H, RBC 4.32, Hgb 11.9 L, Hct 37.5, MCV 86.8, MCH 27.5, MCHC 31.7 L, RDW 14.2, Plt Count 304, MPV 9.8, Neut % (Auto) 73.9, Lymph % (Auto) 18.2, [place] % (Auto) 6.3, Eos % (Auto) 0.6, Baso % (Auto) 0.2, Neut # (Auto) 10.6 H, Lymph # (Auto) 2.6, [place] # (Auto) 0.9, Eos # (Auto) 0.1, Baso # (Auto) 0.0, Sodium 141, Potassium 3.6, Chloride 111 H, Carbon Dioxide 24, Anion Gap 9.6, BUN 32 H D, Creatinine 0.90, Estimated Creat Clear 63, Estimated GFR 70, Est GFR ( Amer) 84, Glucose 134 H D, Calcium 8.1 L, Magnesium 2.0 D, Total Bilirubin 0.2, AST 24, ALT 24, Alkaline Phosphatase 71, Total Protein 6.5, Albumin 3.3 L, Globulin 3.2, Albumin/Globulin Ratio 1.0 L I & O for Labs for Last 24 Hours: Intake & Output 01/11/25 01/12/25 01/13/25 01/14/25 23:59 23:59 23:59 23:59 Intake Total 3470 / 3610 1310 / 1670 920 / 920 Output Total 0 / 0 0 / 0 Balance 3470 / 3610 1310 / 1670 920 / 920 Weight 113.511 kg 115.666 kg 114.804 kg Microbiology Reports for the Last 24 Hours: Microbiology 01/12/25 08:18 Blood Blood Culture - Preliminary Gram Positive Cocci 01/12/25 08:18 Blood Blood Culture - Preliminary Gram Positive Cocci 01/12/25 07:52 Urine,Clean Catch Urine Culture - Final Constitutional: Present no acute distress, morbidly obese, chronically ill appearing and cooperative Head: Present atraumatic and normocephalic ENT: Present normal exam Respiratory: Present normal respiratory effort; Absent rhonchi, wheezes or crackles Cardiac: Present Reg Rate and Rhythm GI: Present soft and normal bowel sounds; Absent distention or tenderness Comments:: Left CVA tenderness to percussion. Patient jumped out of the bed, negative CVA tenderness on right Extremities: Present normal inspection and full ROM Skin: Present intact; Absent erythema Neuro: Present Grossly Intact, alert, awake, oriented x 3 and moves all extremities Assessment and Plan *Assessment and plan (1) Sepsis: Status: Resolved Category: Medical Code(s): A41.9 - Sepsis, unspecified organism (2) Anaphylactic reaction: Status: Acute Category: Medical Code(s): T78.2XXA - Anaphylactic shock, unspecified, initial encounter (3) Pyelonephritis: Status: Acute Category: Medical Code(s): N12 - Tubulo-interstitial nephritis, not specified as acute or chronic (4) Complicated urinary tract infection: Status: Acute Category: Medical Code(s): N39.0 - Urinary tract infection, site not specified (5) Hydronephrosis: Status: Acute Qualifiers: Hydronephrosis type: with other ureteral stricture Qualified Code(s): N13.1 - Hydronephrosis with ureteral stricture, not elsewhere classified Category: Medical Code(s): N13.30 - Unspecified hydronephrosis (6) Kidney stone: Status: Acute Category: Medical Code(s): N20.0 - Calculus of kidney (7) Lesion of right lobe of liver: Status: Acute Category: Medical Code(s): K76.9 - Liver disease, unspecified (8) Left flank pain: Status: Acute Category: Medical Code(s): R10.9 - Unspecified abdominal pain (9) Morbid obesity: Status: Chronic Category: Medical Code(s): E66.01 - Morbid (severe) obesity due to excess calories (10) Staphylococcus epidermidis bacteremia: Status: Acute Category: Medical Code(s): R78.81 - Bacteremia; B95.7 - Other staphylococcus as the cause of diseases classified elsewhere Plan The patient is a 39-year-old female with a long history of nephrolithiasis who presents with left flank pain and symptoms of sepsis. Initially treated with cefepime and developed anaphylaxis. Responding to treatment for anaphylaxis. Discussed case with ER physician, request admission for further management of infection, sepsis, anaphylaxis. I agreed to admit for further care. Blood pressure remained stable. 2 of 4 bottles positive for Staph epidermidis. Unsure the clinical significance however will repeat blood cultures today. Continues to require inpatient management. Problems addressed as follows: Hydronephrosis Pyelonephritis Sepsis Anaphylaxis - Meeting sepsis criteria with leukocytosis, tachycardia, infection associated with hydronephrosis. Remains afebrile. -2 of 4 bottles positive in less than 24 hours for Staph epidermidis. Will repeat blood cultures today. Would like to see negative cultures as well as sensitivity prior to consideration for discharge home as I am unsure at this time if this is a contaminant or legitimate infection. - Continue Levaquin 750 mg daily. Continue vancomycin - White count improved to 14.3. Hemoglobin 12. Kidney function stable with BUN 32, creatinine 0.9 - Urine culture with multiple pathogens concerning for contaminant. -Continue pain control with hydrocodone 5 mg as needed every 4 hours. 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 Has never been a problem for her. If repeat cultures positive, will consider surgical consult for possible removal as I worry this hardware may be infected if this is a legitimate infection. Social Barriers and Follow-Up Compliance - The patient has significant social barriers, including lack of transportation and a history of missed appointments, contributing to delayed stent removal and suboptimal follow-up. - Engage social media job titles and case management immediately to address these issues and coordinate a comprehensive outpatient care plan, including timely follow-up with urology and primary care. Morbid obesity complicates all aspects of her care. Full code Regular diet Lovenox 40 mg subcu bid
[2025-01-14] MEDS: POLYETHYLENE GLYCOL 3350 17 GM PACKET PO (13:21)
--- NOTE | 2025-01-14 17:39 | PC.NURSE ---
NO ACUTE CHANGES THIS SHIFT. AMBULATES IN ROOM INDEPENDENTLY. NO COMPLAINTS VOICED.
[2025-01-14 20:00] VITALS: BP 158/88; PULSE 98; RESP 16; TEMP 36.4; O2SAT 96
[2025-01-14] MEDS: SENNOSIDES 8.6MG/DOCUSATE 50MG TABLET 1 TAB PO (21:17)
[2025-01-14] MEDS: TAMSULOSIN 0.4MG CAPSULE 0.4 MG PO (21:17)
[2025-01-15] VITALS: BP 150/90; PULSE 91; RESP 16; TEMP 36.7; O2SAT 97
[2025-01-15 01:34] LABS: Vancomycin,Trough 12.4 ug/mL (5.0-10.0)
[2025-01-15] MEDS: NAPROXEN 500MG TABLET 500 MG PO (01:45)
[2025-01-15] MEDS: VANCOMYCIN HCL 2,000 MG in 0.9 % SODIUM CHLORIDE 250 ML 125 MG IV (01:45)
[2025-01-15 04:00] VITALS: BP 156/98; PULSE 85; RESP 16; TEMP 36.6; O2SAT 94; BMI 46.8
--- NOTE | 2025-01-15 06:25 | PC.NURSE ---
Pt has c/o moderate lower back pain, and was treated per NOV. 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 Vanc trough was 12.4 this nurse consulted [facility] at [facility] and proceeded with 0000 dose. Pt has tolerated antibiotics well. Pt has had no acute changes to note
[2025-01-15] MEDS: HYDROCODONE/APAP 5/325 MG TABLET 1 TAB PO ×2 (06:55→11:08)
[2025-01-15 08:00] VITALS: BP 165/105; PULSE 84; RESP 20; TEMP 36.6; O2SAT 98
--- NOTE | 2025-01-15 08:22 | EXP.PHA.CONS ---
Pharmacy Consult Date: 01/15/25 Time: 08:23 Referring provider: DR. DAVIS Reason for Consult:: VANCOMYCIN TROUGH LEVEL Allergies Allergy/AdvReac Type Severity Reaction Status Date / Time cefepime Allergy Severe Anaphylaxis Verified 01/12/25 14:16 codeine (CODEINE) Allergy Severe BLEEDING Verified 01/12/25 14:16 OF EYES AND NOSE ibuprofen Allergy Severe face Verified 01/12/25 14:16 swelling ketorolac (From TORADOL) Allergy Severe face Verified 01/12/25 14:16 swelling midazolam (From VERSED) Allergy Severe Anaphylaxis Verified 01/12/25 14:16 Penicillins Allergy Severe Hives Verified 01/12/25 14:16 sulfamethoxazole (From Allergy Severe Unknown Verified 01/12/25 14:16 BACTRIM) allergy reaction tramadol Allergy Severe face Verified 01/12/25 14:16 swelling trimethoprim (From BACTRIM) Allergy Severe Unknown Verified 01/12/25 14:16 allergy reaction aztreonam (AZTREONAM) Allergy Mild NA-NAUSEA/V Verified 01/12/25 14:16 OMITING gatifloxacin (From TEQUIN) Allergy Mild tremors Verified 01/12/25 14:16 cefaclor (CEFACLOR) Allergy Unknown Unknown Verified 01/12/25 14:16 allergy reaction doxycycline (DOXYCYCLINE) Allergy Unknown Hives Verified 01/12/25 14:16 Home Medications ?Medication ?Instructions ?Recorded ?Confirmed ?Type No Known Home Medications 01/12/25 01/12/25 History New Prescriptions to Start Prescriptions: Height: 1.57 m Weight: 115.439 kg Laboratory Results:: Laboratory Results - last 24 hr 01/14/25 00:12: Vancomycin Trough 12.4 H 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: 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 (Updated 01/14/25 @ 17:25 by Stuart Davis MD) Port-A-Cath in place Abnormal urinalysis Sepsis Axillary adenopathy Morbid obesity with BMI of 40.0-44.9, adult Chews tobacco Chest pain Lesion of liver greater than 1 cm in diameter Pyelonephritis Diverticulitis Puncture wound of hand, left Elevated serum hCG in female, not Hypokalemia Pyelonephritis Urolithiasis Exacerbation of reactive airway disease Pneumonia CAP (community acquired pneumonia) Flu syndrome Bronchitis Kurtz splints Achilles tendinitis Hypokalemia COVID-19 virus infection Nausea and vomiting TMJ arthralgia Pancreatitis Anxiety Hypertension Class 3 obesity Ureteral calculus, right Sepsis Sciatica Dental abscess Right flank pain Cough Leg pain Fracture of medial malleolus, right, closed Reactive airway disease with wheezing Bronchitis Sinusitis Ureteral calculus Renal colic Kidney stone on left side Poison eric dermatitis Cellulitis of breast Left flank pain Pain and swelling of left ankle Ankle pain, left Pain and swelling of right ankle Left knee pain Tight cast Cast discomfort Tibia/fibula fracture Encounter for laboratory testing for COVID-19 virus Renal colic on right side Pyelonephritis Hypertension Obstructive uropathy Left ureteral calculus Flank pain SIRS (systemic inflammatory response syndrome) Renal insufficiency Ureteral stent occlusion Hydronephrosis Contusion of coccyx Obesity (BMI 35.0-39.9 without comorbidity) Nephrolithiasis Diarrhea Hydronephrosis with urinary obstruction due to ureteral calculus Complicated UTI (urinary tract infection) Foot sprain Renal colic on left side Bruise Recurrent left lower quadrant abdominal pain Chronic pain Ovarian cyst Flank pain, acute Urinary tract infection Abscess after procedure Wound dehiscence, surgical Dehiscence of closure of skin Yeast dermatitis Surgical wound infection Cellulitis Abdominal pain Complex cyst of right ovary Cystitis Vomiting and diarrhea Epigastric pain Assessment and Plan Assessment and plan all Dx Assessment and Plan for all problems:: VANCOMYCIN TROUGH LEVEL WAS 12.4 MCG/ML OVERNIGHT. DOSING OF VANCOMYCIN CONTINUED AT 2000 MG Q18H.
[2025-01-15] MEDS: LEVOFLOXACIN/D5W 750 MG/150 ML 750 MG/150 ML PIGGYBACK 100 MG IV (09:08)
[2025-01-15] MEDS: SENNOSIDES 8.6MG/DOCUSATE 50MG TABLET 1 TAB PO (09:08)
[2025-01-15 09:09] LABS: Basophils # 0.1 K/mm3 (0-0.2); Basophils % 0.7 % (0.1-2.0); Eosinophils # 0.4 Kmm3 (0.0-0.4); Eosinophils % 4.2 % (0.1-12.0); Hematocrit 39.6 % (37.0-47.0); Hemoglobin 12.5 g/dL (12.2-16.2); Lymphocytes # 2.7 K/mm3 (0.7-4.5); Mean Corpuscular HGB Conc 31.6 g/dL (31.8-35.4); Mean Corpuscular Hemoglobin 27.1 pg (27.0-31.2); Mean Corpuscular Volume 85.9 fl (81-99); Mean Platelet Volume 9.4 fl (7.4-10.4); Monocytes # 0.8 K/mm3 (0.1-1.0); Monocytes % 7.5 % (1.7-9.3); Neutrophils # 6.2 K/mm3 (1.8-7.8); Neutrophils % 59.7 % (37.0-80.0); Nucleated Red Blood Cells # 0 10^3/uL; Nucleated Red Blood Cells % 0 %; Platelet Count 331 K/mm3 (142-424); Red Blood Count 4.61 M/mm3 (4.20-5.40); Red Cell Distribution Width 14.2 % (11.5-17.5); Red Cell Distribution Width-SD 44.2 fL; White Blood Count 10.4 K/mm3 (4.8-10.8)
[2025-01-15 09:13] LABS: Albumin Level 3.4 g/dl (3.5-5.0); Chloride 106 mmol/L (98-107); Potassium 4.2 mmoL/L (3.5-5.1); Sodium 138 mmol/L (136-145)
[2025-01-15 09:16] LABS: Alanine Aminotransferase 24 U/L (12-78); Alkaline Phosphatase 84 U/L (38-126); Anion Gap 6.2 mEq/L (5-15); Aspartate Amino Transferase 25 U/L (14-36); Bilirubin,Total 0.2 mg/dl (0.2-1.3); Blood Urea Nitrogen 20 mg/dl (7-17); Carbon Dioxide 30 mmol/L (22.0-30.0); Creatinine Clearance Estimated 81 mL/min (50-200); Estimated Glomerular Filt Rate 93 ml/min (>60); GFR (African American) 113 ML/MIN (>60); Globulin 3.3 g/dL (1.3-3.2); Glucose 102 mg/dl (74-100); Total Protein,Serum 6.7 g/dl (6.3-8.2)
[2025-01-15 09:17] LABS: Calcium 8.2 mg/dl (8.4-10.2)
[2025-01-15 09:40] LABS: Magnesium 1.7 mg/dl (1.6-2.3)
[2025-01-15] MEDS: CARVEDILOL 12.5MG TABLET 12.5 MG PO (11:09)
--- NOTE | 2025-01-15 11:46 | SW/DCPLANNER ---
I spoke w/ this patient regarding plans once medically stable for discharge. Per MD patient will need 10 additional days of IV antibiotics. Patient is agreeable to return to [facility] outpatient services for antibiotics. Patient confirmed she will have transportation. I have relayed information to MD. [facility] outpatient antibiotics will be set up for patient. Per MD patient will discharge today pending no setbacks.
--- NOTE | 2025-01-15 15:10 | EXP.DC.SUM ---
General Admission date:: 01/12/25 Discharge date: 01/15/25 HPI HPI HPI: Ms. Dumont is a 39-year-old female with previous hydronephrosis, left renal stent, morbid obesity, history of kidney stones. She presented to the hospital with complaint of left-sided abdominal and flank pain. Been going on for several days. Last night however she developed nausea, chills, subjective fevers. Denies anurag emesis. Fever improved with Tylenol. Significant history of infections and kidney stones. Made her concerned that she was developing sepsis. Presented to the ER for evaluation. White count elevated at 17. Kidney function normal with BUN 14, creatinine 1.0. CT of abdomen obtained showing improvement in hydronephrosis and interval removal of left renal stent. Patient was initially treated with IV cefepime and developed anaphylaxis even though she does not have prior history of allergy to cefepime in particular. Treated for anaphylaxis with Benadryl, epinephrine, steroids. Showing some improvement. Blood pressures remain soft. Received fluid bolus as well. Medicine consulted for admission and further management of sepsis and anaphylaxis. Admitted to ICU. On evaluation, patient is quite fatigued but alert and oriented x 4. On room air. Remains tachycardic. Blood pressure soft with MAP greater than 65. Hospital Course Hospital Course Hospital Course: The patient is a 39-year-old female with a long history of nephrolithiasis who presents with left flank pain and symptoms of sepsis. Initially treated with cefepime and developed anaphylaxis. Responding to treatment for anaphylaxis. Discussed case with ER physician, request admission for further management of infection, sepsis, anaphylaxis. I agreed to admit for further care. Blood pressure remained stable. 2 of 4 bottles positive for Staph epidermidis. Speciated out with sensitivity. Sensitive to daptomycin. Will continue treatment due to concern for actual source of infection. Repeat cultures negative. Stable to discharge home. Needs outpatient infusions of antibiotics daily. Tolerating p.o. intake with normalization in white count. Problems addressed as follows: Hydronephrosis Pyelonephritis Sepsis Anaphylaxis Staph epidermidis bacteremia -Patient presented meeting sepsis criteria with leukocytosis, tachycardia, infection associated with hydronephrosis. Remains afebrile. Was started on cefepime due to concern for UTI and infection/sepsis. Had anaphylactic reaction necessitating epinephrine, Benadryl, steroids. Responded well with stable blood pressure after fluid resuscitation. Did not require vasopressors. Had gradual defervescence of symptoms after admission to the ICU. Of note initial blood cultures had 2 aerobic bottles positive in less than 24 hours for Staph epidermidis. Repeat cultures obtained. Showed sensitivity to daptomycin. Given patient having indwelling hardware, positive gram-positive bacteremia, will treat empirically for 14 days. Necessitating daptomycin 500 mg once daily. No other source of infection identified as urine had multiple organisms concerning for contaminant. White count initially elevated, improved to 10 by day of discharge. Treated initially with Levaquin for broad-spectrum antibiotics covering gram-negative's, she had no pathogens necessitating its continuation it was discontinued at discharge. Kidney function remained stable. - Flank pain showing improvement. Will continue a few more doses of hydrocodone at discharge for pain control. Encourage naproxen at home as this helps with her pain as well. Continue tamsulosin 0.4 mg daily to promote relaxation of ureter given her persistent hydronephrosis on the left side. Social Barriers and Follow-Up Compliance - The patient has significant social barriers, including lack of transportation and a history of missed appointments, contributing to delayed stent removal and suboptimal follow-up. - Social work assisted with care. Case management assisting with outpatient [facility]. Hypertension: Initiated on carvedilol 12.5 mg twice daily. Having good response. Will need further management of hypertension as an outpatient. Morbid obesity complicates all aspects of her care. Total time spent on discharge 38 minutes in counseling, documentation, chart review, and direct care with patient. Exam Data for Last 24 hours Vital signs and Labs for Last 24 Hours: Temp Pulse Resp BP Pulse Ox O2 Del Method 97.6 F 81 16 132/101 H 92 L Room Air 01/14/25 04:00 01/14/25 04:00 01/14/25 04:00 01/14/25 04:00 01/14/25 04:00 01/14/25 06:37 Laboratory Results - last 24 hr 01/13/25 09:00: WBC 17.7 H, RBC 4.57, Hgb 12.6, Hct 39.2, MCV 85.8, MCH 27.6, MCHC 32.1, RDW 14.3, Plt Count 300, MPV 9.9, Neut % (Auto) 89.2 H, Lymph % (Auto) 5.3 L, [place] % (Auto) 4.4, Eos % (Auto) 0.3, Baso % (Auto) 0.2, Neut # (Auto) 15.8 H, Lymph # (Auto) 0.9, [place] # (Auto) 0.8, Eos # (Auto) 0.1, Baso # (Auto) 0.0, Sodium 139, Potassium 4.1 D, Chloride 112 H, Carbon Dioxide 20 L, Anion Gap 11.1, BUN 24 H D, Creatinine 1.00, Estimated Creat Clear 57, Estimated GFR 62, Est GFR ( Amer) 75, Glucose 205 H, Calcium 8.5, Magnesium 1.8, Total Bilirubin 0.2, AST 29, ALT 29 D, Alkaline Phosphatase 76, Total Protein 6.1 L, Albumin 3.3 L, Globulin 2.8, Albumin/Globulin Ratio 1.2 I & O for Last 24 hours: Intake & Output 01/11/25 01/12/25 01/13/25 01/14/25 23:59 23:59 23:59 23:59 Intake Total 3470 / 3610 1310 / 1670 360 / 360 Output Total 0 / 0 0 / 0 Balance 3470 / 3610 1310 / 1670 360 / 360 Weight 113.511 kg 115.666 kg 114.804 kg Microbiology Reports for the Last 24 Hours: Microbiology 01/12/25 08:18 Blood Blood Culture - Preliminary 01/12/25 13:50 Anus CRE Surveillance Culture - Final Constitutional Constitutional: no acute distress, morbidly obese, chronically ill appearing and cooperative *Routine HEENT Exam Head: Present normocephalic Eye: Present EOMI and PERRL ENT: Present mucous membranes moist Comments: hirsutism *Routine Neck Exam Neck: Present supple; Absent lymphadenopathy Routine Chest/Breast/Axilla Exam Comments: Port in right chest *Routine Respiratory Exam Respiratory: Present CTA bilaterally; Absent rhonchi, wheezes or crackles *Routine Cardiovascular Exam Cardiovascular: Present RRR *Routine Abdominal Exam Abdominal: Present soft and normoactive bowel sounds; Absent tenderness, distended, rebound or guarding *Routine Rectal Exam Patient deferred: visual exam *Routine Exam Patient deferred: external exam *Routine Extremities Exam Extremities: Absent cyanosis, clubbing or edema Routine Back/Spine/Pelvis Exam Back/Spine: Present CVA tenderness (Very mild left-sided) *Routine Skin Exam Skin: Present intact and warm; Absent rash *Routine Neurological Exam Neurological: Present alert, oriented X3 and moving all extremities; Absent altered mental status Routine Psychiatric Exam Psychiatric: Present normal affect Results Data Completed and Pending Labs on day of discharge: Labs from last 24 hours 01/13/25 09:00 WBC 17.7 H RBC 4.57 Hgb 12.6 Hct 39.2 MCV 85.8 MCH 27.6 MCHC 32.1 RDW 14.3 Plt Count 300 MPV 9.9 Neut % (Auto) 89.2 H Lymph % (Auto) 5.[address] % (Auto) 4.4 Eos % (Auto) 0.3 Baso % (Auto) 0.2 Neut # (Auto) 15.8 H Lymph # (Auto) 0.9 [place] # (Auto) 0.8 Eos # (Auto) 0.1 Baso # (Auto) 0.0 Sodium 139 Potassium 4.1 D Chloride 112 H Carbon Dioxide 20 L Anion Gap 11.1 BUN 24 H D Creatinine 1.00 Estimated Creat Clear 57 Estimated GFR 62 Est GFR ( Amer) 75 Glucose 205 H Calcium 8.5 Magnesium 1.8 Total Bilirubin 0.2 AST 29 ALT 29 D Alkaline Phosphatase 76 Total Protein 6.1 L Albumin 3.3 L Globulin 2.8 Albumin/Globulin Ratio 1.2 Preliminary micro results at discharge 01/12/25 08:18 Blood Culture - Preliminary Blood 01/12/25 08:18 Blood Culture - Preliminary Blood DS: Diagnosis Discharge Diagnosis (1) Sepsis: Status: Resolved Code(s): A41.9 - Sepsis, unspecified organism (2) Anaphylactic reaction: Status: Acute Code(s): T78.2XXA - Anaphylactic shock, unspecified, initial encounter (3) Pyelonephritis: Status: Acute Code(s): N12 - Tubulo-interstitial nephritis, not specified as acute or chronic (4) Complicated urinary tract infection: Status: Acute Code(s): N39.0 - Urinary tract infection, site not specified (5) Hydronephrosis: Status: Acute Code(s): N13.30 - Unspecified hydronephrosis Qualifiers: Hydronephrosis type: with other ureteral stricture Qualified Code(s): N13.1 - Hydronephrosis with ureteral stricture, not elsewhere classified (6) Kidney stone: Status: Acute Code(s): N20.0 - Calculus of kidney (7) Lesion of right lobe of liver: Status: Acute Code(s): K76.9 - Liver disease, unspecified (8) Left flank pain: Status: Acute Code(s): R10.9 - Unspecified abdominal pain (9) Morbid obesity: Status: Chronic Code(s): E66.01 - Morbid (severe) obesity due to excess calories Meds Home Medications and Allergies Home Medications ?Medication ?Instructions ?Recorded ?Confirmed ?Type carvedilol 12.5 mg tablet 12.5 mg PO BID 30 days #60 tabs 01/15/25 Rx daptomycin 500 mg intravenous 500 mg IV Q24H 10 days 01/15/25 Rx solution hydrocodone 5 mg-acetaminophen 325 1 tab PO Q4HP PRN Severe Pain 01/15/25 Rx mg tablet (7-10) #9 tabs tamsulosin 0.4 mg capsule 0.4 mg PO HS 30 days #30 caps 01/15/25 Rx New Prescriptions to Start Prescriptions: carvedilol Stuart Braun hydrocodone-acetaminophen Stuart Braun tamsulosin Stuart Braun Allergies Allergy/AdvReac Type Severity Reaction Status Date / Time cefepime Allergy Severe Anaphylaxis Verified 01/12/25 14:16 codeine (CODEINE) Allergy Severe BLEEDING Verified 01/12/25 14:16 OF EYES AND NOSE ibuprofen Allergy Severe face Verified 01/12/25 14:16 swelling ketorolac (From TORADOL) Allergy Severe face Verified 01/12/25 14:16 swelling midazolam (From VERSED) Allergy Severe Anaphylaxis Verified 01/12/25 14:16 Penicillins Allergy Severe Hives Verified 01/12/25 14:16 sulfamethoxazole (From Allergy Severe Unknown Verified 01/12/25 14:16 BACTRIM) allergy reaction tramadol Allergy Severe face Verified 01/12/25 14:16 swelling trimethoprim (From BACTRIM) Allergy Severe Unknown Verified 01/12/25 14:16 allergy reaction aztreonam (AZTREONAM) Allergy Mild NA-NAUSEA/V Verified 01/12/25 14:16 OMITING gatifloxacin (From TEQUIN) Allergy Mild tremors Verified 01/12/25 14:16 cefaclor (CEFACLOR) Allergy Unknown Unknown Verified 01/12/25 14:16 allergy reaction doxycycline (DOXYCYCLINE) Allergy Unknown Hives Verified 01/12/25 14:16 Discharge Plan Disposition Patient Disposition: Home, Self-Care Condition: Fair Discharge Order Discharge Orders: Discharge Order (Routine); Ordered 01/15/25 Ordered By: Stuart Braun Follow up Plan Follow up with: Brooklyn Chandler APRN [Nurse Practitioner] - 01/22/25 10:00 am Prescriptions/Medication Reconciliation: New carvedilol 12.5 mg Tablet 12.5 mg PO BID 30 Days Qty: 60 0RF tamsulosin 0.4 mg Capsule 0.4 mg PO HS 30 Days Qty: 30 0RF daptomycin 500 mg recon soln 500 mg IV Q24H 10 Days Rx Instructions: administer over 30 mins hydrocodone-acetaminophen 5-325 mg Tablet 1 tab PO Q4HP PRN (Reason: Severe Pain (7-10)) Qty: 9 0RF Problem Reconciliation Problems Reviewed?: Yes Patient Discharge Instructions ACTIVITY: Continue current activity DIET: continue same diet Patient Instructions: DI for Anaphylaxis, DI for Sepsis -- Adult, Stop Light Pneumonia Print Language: Bhutanese Providers Primary Care Provider: Provider,Referral Admit Provider: Stuart Braun Attending Provider: Stuart Braun
--- NOTE | 2025-01-17 10:24 | SW/DCPLANNER ---
Phoned patient x2 and patient's extension said that they cant be reached. 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
== END 2025-01-15 13:26 | disposition home or self-care (01) | DRG 872 ==
LOC: ER 12:17 → 2ND 12:49
PROVIDERS: Admitting Provider Internal Medicine Adolescent Medicine; Emergency Provider Emergency Medicine; Visit Provider Internal Medicine Adolescent Medicine
DX: A41.9 Sepsis, unspecified organism (principal); N10 Acute pyelonephritis; Z16.11 Resistance to penicillins; Z68.42 Body mass index [BMI] 45.0-49.9, adult; T88.6XXA Anaphylactic reaction due to adverse effect of correct drug or medicament properly administered, initial encounter; N13.6 Pyonephrosis; E66.01 Morbid (severe) obesity due to excess calories; T36.1X5A Adverse effect of cephalosporins and other beta-lactam antibiotics, initial encounter; Y92.230 Patient room in hospital as the place of occurrence of the external cause; F17.290 Nicotine dependence, other tobacco product, uncomplicated; R11.0 Nausea; R10.9 Unspecified abdominal pain; B95.7 Other staphylococcus as the cause of diseases classified elsewhere; I10 Essential (primary) hypertension; Z59.82 Transportation insecurity; Z91.198 Patient's noncompliance with other medical treatment and regimen for other reason; Z87.442 Personal history of urinary calculi; Z90.49 Acquired absence of other specified parts of digestive tract; Z90.79 Acquired absence of other genital organ(s); Z90.722 Acquired absence of ovaries, bilateral; Z88.1 Allergy status to other antibiotic agents; Z88.8 Allergy status to other drugs, medicaments and biological substances; Z88.0 Allergy status to penicillin; Z88.5 Allergy status to narcotic agent; Z88.6 Allergy status to analgesic agent; Z88.2 Allergy status to sulfonamides; Z96.0 Presence of urogenital implants
CPT/HCPCS: 36415; 74177; 80053; 80202; 81001; 82803; 83690; 83735; 84484; 85025; 87040; 87077; 87081; 87086; 87186; 87636; 93005; 99291; J0131; J0171; J1200; J1642; J1650; J1938; J1956; J2405; J2919; J3370; J7120; Q9967

== ENCOUNTER 2025-01-16 13:37 | Outpatient (CLI) | payer MEDICAID, OTHER, SELFPAY ==
[2025-01-16] MEDS: SODIUM CHLORIDE 0.9% 10ML FLUSH SYRINGE 10 ML IV (14:18)
[2025-01-16] MEDS: SODIUM CHLORIDE 0.9% 50ML BAG 50 ML IV (14:18)
[2025-01-16] MEDS: DAPTOmycin 500 MG in 0.9 % SODIUM CHLORIDE 50 ML 100 MG IV (14:19)
[2025-01-16 14:25] VITALS: BP 138/85; PULSE 102; RESP 18; TEMP 36.7; O2SAT 99
[2025-01-16 15:00] VITALS: BP 148/98; PULSE 100
== END 2025-01-16 15:20 | disposition home or self-care (01) ==
LOC: INF 13:39
PROVIDERS: PCP Nurse Practitioner Family; Visit Provider Internal Medicine Adolescent Medicine
DX: N10 Acute pyelonephritis (principal); A41.9 Sepsis, unspecified organism
CPT/HCPCS: 96360; 96365; J0878; J1642

== ENCOUNTER 2025-01-17 14:03 | Outpatient (CLI) | payer MEDICAID, OTHER, SELFPAY ==
[2025-01-17] MEDS: DAPTOmycin 500 MG in 0.9 % SODIUM CHLORIDE 50 ML 100 MG IV (14:26)
[2025-01-17] MEDS: SODIUM CHLORIDE 0.9% 50ML BAG 50 ML IV (14:27)
[2025-01-17 14:30] VITALS: BP 162/91; PULSE 102; RESP 17; O2SAT 98
[2025-01-17 15:00] VITALS: BP 163/103; PULSE 102; RESP 17
== END 2025-01-17 15:25 | disposition home or self-care (01) ==
LOC: INF 14:07
PROVIDERS: PCP Nurse Practitioner Family; Visit Provider Internal Medicine Adolescent Medicine
DX: N12 Tubulo-interstitial nephritis, not specified as acute or chronic (principal); A41.9 Sepsis, unspecified organism
CPT/HCPCS: 96365; J0878; J1642

== ENCOUNTER 2025-01-18 12:18 | Outpatient (CLI) | payer MEDICAID, OTHER, SELFPAY ==
[2025-01-18] MEDS: SODIUM CHLORIDE 0.9% 50ML BAG 50 ML IV (12:43)
[2025-01-18] MEDS: DAPTOmycin 500 MG in 0.9 % SODIUM CHLORIDE 50 ML 100 MG IV (12:43)
[2025-01-18 12:45] VITALS: BP 145/91; PULSE 103; RESP 16; O2SAT 97
[2025-01-18 13:20] VITALS: BP 153/91; PULSE 103; RESP 16
== END 2025-01-18 13:30 | disposition home or self-care (01) ==
LOC: INF 12:20
PROVIDERS: PCP Nurse Practitioner Family; Visit Provider Internal Medicine Adolescent Medicine
DX: N12 Tubulo-interstitial nephritis, not specified as acute or chronic (principal); N39.0 Urinary tract infection, site not specified; A41.9 Sepsis, unspecified organism
CPT/HCPCS: 96365; J0878; J1642

== ENCOUNTER 2025-02-01 14:39 | Outpatient (CLI) | payer MEDICAID, SELFPAY ==
--- NOTE | 2025-02-01 14:42 | XR_ITS ---
FINAL REPORT TECHNIQUE: Chest PA & Lateral CLINICAL HISTORY: Shortness of breath COMPARISON: 09/03/2023 FINDINGS: 2 views of the chest were performed. The heart size is normal. There is a chest port with the tip in the SVC. The mediastinum is within normal limits. There is mild airspace opacity in the right perihilar region consistent with a small focus of pneumonia. The left lung is clear. There are no pleural effusions. There is no pneumothorax. The bony thorax appears intact. IMPRESSION: Airspace opacity right perihilar region consistent with a small focus of pneumonia. Reviewed, Interpreted and Dictated by Taqueria Hodge MD Transcribed by Carissa Tejeda Authenticated and [facility]
== END 2025-02-01 23:59 | disposition home or self-care (01) ==
LOC: RAD 14:40
PROVIDERS: PCP Nurse Practitioner Family; Visit Provider Nurse Practitioner Family
DX: J18.9 Pneumonia, unspecified organism (principal)
CPT/HCPCS: 71046

== ENCOUNTER 2025-06-07 15:08 | Emergency (ER) | payer MEDICAID, SELFPAY ==
[2025-06-07 15:58] LABS: Microscopic, Urine URINE MICROSCOPIC (MICROSCOPIC)
[2025-06-07 16:11] LABS: Bilirubin,Urine Negative (Negative); Color,Urine YELLOW (Yellow); Glucose,Urine (UA) Negative (Negative); Ketones,Urine Negative (Negative); Leukocyte Esterase,Urine Negative (Negative); PH,Urine 6.0 (5.0-8.5); Protein,Urine Negative (Negative); Specific Gravity, Urine 1.025 (1.005-1.030); Urobilinogen,Urine 0.2 EU/dl (0.2)
--- OUTSIDE RECORDS SUMMARY | 2025-06-07 16:14 | XMS_ITS | Encounter Summary ---
Author Organization [employer] ([place], [place], [place], [place]) Address [address] [place] [address] Care Team Providers Care Storage Wharfage Clerk Name Role Phone Unavailable Primary Care Provider Unavailabl e Encounter Details Date Type Department Care Team (Late st Contact Info) Description 10/15/2019 Transcribed Document [facility] [place] [address] ProviderJulio MD [address] [place] [address] 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 Tobacco Use Types Packs/Day Years Used Date Smoking Tobacco: Never Assessed Comments Unknown Sex and Gender Information Value Date Recorded Sex Assigned at Female 03/12/2022 2:43 PM CDT Legal Sex Female 5:44 PM CDT Gender Identity Female 03/12/2022 2:43 PM CDT Sexual Orientation Not on file documented as of this encounter Miscellaneous Notes * Cerner Conversion Note - Julio ProviderMD - 10/15/2019 10:16 PM SHEET [employer]AL FORMER ED Triage Entered On: 10/15/2019 22:24 EST Performed On: 10/15/2019 22:19 EST by Cydney Dunn RN ED Triage Across the Room Chief Complaint : pt presents with c/o throat pain that started yesterday and left flank pain that started 1 week ago Triage Date/Time : 10/15/2019 22:19 EST Cydney Dunn RN - 10/15/2019 22:19 EST DCP GENERIC CODE Tracking Acuity : 3 - Urgent Tracking Group : [facility] ED ColesCydney Trivedi RN - 10/15/2019 22:19 EST Mode of Arrival : Ambulatory Transported to ED by : Private vehicle To Room Via : Ambulate Accompanied By : Unaccompanied ED Vital Signs : Document Height & Weight : Document ED Allergies : Document ED Reason for Visit : Document Status : Hysterectomy Tetanus Immunization : Less than 5 years Cydney Dunn RN - 10/15/2019 22:19 EST Infectious Disease History Physical contact outside [place] in the last 30 days : No Infectious Disease History : Chicken pox/Shingles, Influenza Tuberculosis Symptoms : None Cydney Dunn RN - 10/15/2019 22:19 EST Vital Signs ED Temperature Source : Oral Temperature Mode : Fahrenheit Temperature, Fahrenheit : 98.6 Deg F Clinical Temperature, C : 37 Deg C Oxygen Therapy Mode : Room air Peripheral Pulse Rate : 108 bpm (HI) Respiratory Rate : 18 Breaths/Min Systolic Blood Pressure : 186 mmHg (HI) Diastolic Blood Pressure : 109 mmHg (HI) Oxygen Saturation : 97 % Cdyney Dunn RN - 10/15/2019 22:19 EST Allergy (As Of: 10/15/2019 22:24:32 EST) Allergies (Active) most abx Estimated Onset Date: Unspecified ; Created By: MANPREET SALAS; Reaction Status: Active ; Category: Drug ; Substance: most abx ; Type: Allergy ; Updated By: MANPREET SALAS; Reviewed Date: 10/15/2019 22:22 EST amoxicillin-clavulanate Estimated Onset Date: Unspecified ; Reactions: SOA, SOA ; Created By: MANPREET SALAS; Reaction Status: Active ; Category: Drug ; Substance: amoxicillin-clavulanate ; Type: Allergy ; Updated By: MANPREET SALAS; Reviewed Date: 10/15/2019 22:22 EST cefaclor Estimated Onset Date: Unspecified ; Created By: MANPREET SALAS; Reaction Status: Active ; Substance: cefaclor ; Updated By: MANPREET SALAS; Reviewed Date: 10/15/2019 22:22 EST ciprofloxacin Estimated Onset Date: Unspecified ; Reactions: HIVES, HIVES ; Created By: MANPREET SALAS; Reaction Status: Active ; Substance: ciprofloxacin ; Updated By: MANPREET SALAS; Reviewed Date: 10/15/2019 22:22 EST codeine Estimated Onset Date: Unspecified ; Created By: LORE JARQUIN RN; Reaction Status: Active ; Category: Drug ; Substance: codeine ; Type: Allergy ; Updated By: LORE JARQUIN RN; Reviewed Date: 10/15/2019 22:22 EST doxycycline Estimated Onset Date: Unspecified ; Reactions: RASH/SOA, RASH/SOA ; Created By: MANPREET SALAS; Reaction Status: Active ; Category: Drug ; Substance: doxycycline ; Type: Allergy ; Updated By: MANPREET SALAS; Reviewed Date: 10/15/2019 22:22 EST gatifloxacin Estimated Onset Date: Unspecified ; Created By: MANPREET SALAS; Reaction Status: Active ; Substance: gatifloxacin ; Updated By: MANPREET SALAS; Reviewed Date: 10/15/2019 22:22 EST Keflex Estimated Onset Date: Unspecified ; Created By: Cathi Green RN; Reaction Status: Active ; Category: Drug ; Substance: Keflex ; Type: Allergy ; Updated By: Cathi Green RN; Reviewed Date: 10/15/2019 22:22 EST midazolam Estimated Onset Date: Unspecified ; Created By: MANPREET SALAS; Reaction Status: Active ; Category: Drug ; Substance: midazolam ; Type: Allergy ; Updated By: MANPREET SALAS; Reviewed Date: 10/15/2019 22:22 EST nitrofurantoin Estimated Onset Date: Unspecified ; Reactions: RASH/SOA, RASH/SOA ; Created By: MANPREET SALAS; Reaction Status: Active ; Category: Drug ; Substance: nitrofurantoin ; Type: Allergy ; Updated By: MANPREET SALAS; Reviewed Date: 10/15/2019 22:22 EST ondansetron Estimated Onset Date: Unspecified ; Created By: MANPREET SALAS; Reaction Status: Active ; Category: Drug ; Substance: ondansetron ; Type: Allergy ; Updated By: MANPREET SALAS; Reviewed Date: 10/15/2019 22:22 EST sulfa drugs Estimated Onset Date: Unspecified ; Created By: MANPREET SALAS; Reaction Status: Active ; Substance: sulfa drugs ; Updated By: CONTRIBUTOR_SYSTEM, HIST_ZACK; Reviewed Date: 10/15/2019 22:22 EST Toradol Estimated Onset Date: Unspecified ; Created By: Cathi Green RN; Reaction Status: Active ; Category: Drug ; Substance: Toradol ; Type: Allergy ; Updated By: Cathi Green RN; Reviewed Date: 10/15/2019 22:22 EST Diagnosis Control ED (As Of: 10/15/2019 22:24:32 EST) Problems(Active) Kidney stones (SNOMED CT :525140675 ) Name of Problem: Kidney stones ; Recorder: MANFRED CAI PA; Confirmation: Confirmed ; Classification: Medical ; Code: [id number] ; Contributor System: [employer] ; Last Updated: 10/24/2015 13:26 EST ; Life Cycle Date: 10/24/2015 ; Life Cycle Status: Active ; Responsible Provider: MANFRED CAI PA; Vocabulary: SNOMED CT PTSD (post-traumatic stress disorder) (SNOMED CT :65733337 ) Name of Problem: PTSD (post-traumatic stress disorder) ; Recorder: MANFRED CAI PA; Confirmation: Confirmed ; Classification: Medical ; Code: [id number] ; Contributor System: [employer] ; Last Updated: 10/24/2015 13:26 EST ; Life Cycle Date: 10/24/2015 ; Life Cycle Status: Active ; Responsible Provider: MANFRED CAI PA; Vocabulary: SNOMED CT Diagnoses(Active) Flank pain Date: 10/15/2019 ; Diagnosis Type: Reason For Visit ; Confirmation: Complaint of ; Clinical Dx: Flank pain ; Classification: Medical ; Clinical Service: Emergency medicine ; Code: PNED ; Probability: 0 ; Diagnosis Code: [id number] Throat pain - Adult Date: 10/15/2019 ; Diagnosis Type: Reason For Visit ; Confirmation: Complaint of ; Clinical Dx: Throat pain - Adult ; Classification: Medical ; Clinical Service: Emergency medicine ; Code: PNED ; Probability: 0 ; Diagnosis Code: [id number] ED Height and Weight Height Source : Stated Height Entry Format : [place] Height, Feet : 5 ft(Converted to: 152 cm, 60 Inch) Height, Inches : 2 Inch(Converted to: 0 ft 2 Inch, 5.08 cm) Clinical Height : 157.48 cm Weight Source, ED : Critical estimated dosing weight Weight Entry Format : [place] Weight, Pounds : 220 lb Clinical Dosing Weight : 100 kg Body Surface Area (BSA) : 1.99 m2 Body Mass Index : 40.3 kg/m2 (>HHI) [place] Body Weight (IBW) : 49.73 kg Cydney Dunn RN - 10/15/2019 22:19 EST documented in this encounter Plan of Treatment Not on file documented as of this encounter Visit Diagnoses Not on filedocumented in this encounter
--- OUTSIDE RECORDS SUMMARY | 2025-06-07 16:14 | XMS_ITS | Encounter Summary ---
Author Organization [employer] ([place], [place], [place], [place]) Address [address] [place] [address] Care Team Providers Care Trap Puller Name Role Phone Unavailable Primary Care Provider Unavailabl e Encounter Details Date Type Department Care Team (Late st Contact Info) Description 10/16/2019 Transcribed Document [facility] [place] Family Medicine [address] [place] [address] ProviderJulio MD [address] [place] [address] 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 Tobacco Use Types Packs/Day Years Used Date Smoking Tobacco: Never Assessed Comments Unknown Sex and Gender Information Value Date Recorded Sex Assigned at Female 03/12/2022 2:43 PM CDT Legal Sex Female 5:44 PM CDT Gender Identity Female 03/12/2022 2:43 PM CDT Sexual Orientation Not on file documented as of this encounter Miscellaneous Notes * Cerner Conversion Note - Julio ProviderMD - 10/16/2019 12:11 AM AIR INTELLIGENCE OFFICER [place] [address] [place] [address] PERSON INFORMATION Name ROEN KIM Age 34 Years 1985 Sex Female Language Wallisian PCP NICOLE WHYTE APRN-PRESLEY Marital Status Single Med Service Emergency Medicine Acct# Arrival 10/15/2019 22:15:00 Visit Reason Throat pain - Adult; Flank pain; THROAT PAIN, KIDNEY PAIN Acuity 3 - Urgent LOS 000 01:56 Depart Date: 10/16/19 00:09 AM Address: [address] [place] [address] Comment: PROVIDER INFORMATION Provider Role Assigned Unassigned CARLINE WATTS MD ED Physician 10/15/2019 23:09:23 Leonel Shetty, miller distillery Nurse 10/15/2019 23:12:18 DIAGNOSIS Bacteriuria; Mariana UTI; Left flank pain; Throat pain PHYS DOC NOTES VITALS INFORMATION Vital Sign Triage Latest Temp Source Oral Oral Temp Mode Fahrenheit Fahrenheit Temp Fahrenheit 98.6 Deg F 98.6 Deg F Temp Celsius 02 Sat 97 % 97 % Respiratory Rate 18 Breaths/Min 18 Breaths/Min Peripheral Pulse Rate 108 bpm 108 bpm Apical Heart Rate Blood Pressure 186 mmHg / 109 mmHg 177 mmHg / 101 mmHg Comment: MEDICAL INFORMATION Allergy Info: Toradol; Keflex; sulfa drugs; gatifloxacin; ondansetron; midazolam; nitrofurantoin; amoxicillin-clavulanate; cefaclor; doxycycline; codeine; ciprofloxacin; most abx Medications: Comment: DISCHARGE INFORMATION Discharge Disposition: Home Discharge Location: PATIENT EDUCATION INFORMATION Instructions: Acute Back Pain, Adult; Urinary Tract Infection, Adult; Sore Throat Follow up: With: Address: When: Follow up with specialist Within 2 to 4 days Comments: urology at [facility] With: Address: When: Follow up with primary care provider Within 2 to 4 days With: Address: When: [facility] Within As needed Comments: Patient stated she is currently established with Nicole Whyte. Feel free to contact our Patient Resource Center at [phone] for any future Physician scheduling needs. With: Address: When: NICOLE WHYTE [address], [facility] [address] [place] [address] [facility] (1) Within 2 to 3 days Comment: documented in this encounter Plan of Treatment Not on file documented as of this encounter Visit Diagnoses Not on filedocumented in this encounter
--- OUTSIDE RECORDS SUMMARY | 2025-06-07 16:14 | XMS_ITS | Referral Summary ---
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 Name Role Phone Unavailable Primary Care Provider Unavailabl e Allergies Active Allergy Reactions Criticality Noted Date Comments Amoxicillin-Pot Clavulanate 11/29/19 Other reaction(s): SOA, SOA Sulfamethoxazole-Trimethoprim 2022 Cefaclor 11/28/2022 Cephalexin 11/28/2022 Ciprofloxacin Hives High 11/28/2022 Other reaction(s): HIVES Codeine 11/28/2022 Doxycycline Rash Low 11/28/2022 Other reaction(s): RASH/SOA Gatifloxacin 11/28/2022 Gentamicin 11/28/2022 Haloperidol 11/28/2022 Ibuprofen 11/28/2022 Ketorolac 11/28/2022 Hydrocodone-Acetaminophen 11/28/2022 Midazolam 11/28/2022 Nitrofurantoin Rash Low 11/28/2022 Ondansetron 11/28/2022 Oxycodone-Acetaminophen 11/28/2022 Sulfa (Sulfonamide Antibiotics) 11/28/2022 Tramadol 11/28/2022 Immunizations Immunization Administration Dates Next Due Covid-19 Vaccine MRNA (PF) 18yr+ (Moderna)(IMM60 0) 01/08/2021,12/11/2020 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 Tobacco Use Types Packs/Day Years Used Date Smoking Tobacco: Never Assessed Food Insecurity Answer Date Recorded Food run out past 12 months Not on file 09/13 Food did not last past 12 months Not on file 10/01/2023 Employment Answer Date Recorded Help finding and keeping a job Not on file 0 10/01/2023 Family and Community Support Answer Marcel e Recorded Help with Day to Day Activities Not on file 10/01/2023 Feeling Lonely or Isolated Not on file 10/01 Educational Attainment Answer Date Jameson rded Speak language other than Argentine at home Not on file 10/01/2023 Want help with school or training Not on file 10/01/2023 Substance Use Answer Date Recorded Used prescription meds for non-medical reasons N ot on file 10/01/2023 Used illegal drugs past 12 months Not on file 10/01/2023 Comments Unknown Sex and Gender Information Value Date Recorded Sex Assigned at Female 03/12/2022 2:43 PM CDT Legal Sex Female 5:44 PM CDT Gender Identity Female 03/12/2022 2:43 PM CDT Sexual Orientation Not on file Last Filed Vital Signs Vital Sign Reading Time Taken Comments Blood Pressure 185/111 11/28/2022 6:22 PM EDT Pulse 87 11/28/2022 8:56 PM EDT Temperature 36.6 C (97.9 F) 11/28/2022 5:25 PM EDT Respiratory Rate 18 11/28/2022 5:25 PM EDT Oxygen Saturation 95% 11/28/2022 8:56 PM EDT Inhaled Oxygen Concentration - - Weight 109.5 kg (241 lb 8 oz) 11/28/2022 5:26 PM EDT Height 157.5 cm (5' 2 ) 11/28/2022 5:26 PM EDT Body Mass Index 44.17 11/28/2022 5:26 PM EDT Plan of Treatment Not on file Insurance [employer] Member Subscriber Plan / Payer (Ef fective 2022-Present) Name:Юлия Kim Relation to Subscriber:Self Name:Юлия Kim Payer ID:Not on file Group ID:[id number] Type:Not on file Address: [address]
--- OUTSIDE RECORDS SUMMARY | 2025-06-07 16:15 | XMS_ITS | Encounter Summary ---
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
--- OUTSIDE RECORDS SUMMARY | 2025-06-07 16:15 | XMS_ITS | Encounter Summary ---
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 Name Role Phone Unavailable Primary Care Provider Unavailabl e Encounter Details Date Type Department Care Team (Late st Contact Info) Description 10/16/2019 Transcribed Document [facility] [place] Medicine [address] [place] [address] ProviderJulio MD [address] [place], [place] [id number] 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 Tobacco Use Types Packs/Day Years Used Date Smoking Tobacco: Never Assessed Comments Unknown Sex and Gender Information Value Date Recorded Sex Assigned at Female 03/12/2022 2:43 PM CDT Legal Sex Female 5:44 PM CDT Gender Identity Female 03/12/2022 2:43 PM CDT Sexual Orientation Not on file documented as of this encounter Miscellaneous Notes * Cerner Conversion Note - Julio Van MD - 10/16/2019 12:06 AM 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 If you had special tests, such as EKG???s or X-rays, the interpretation of your tests given to you by the Emergency Department Physician is a preliminary report. Some fractures and illnesses fail to show up on preliminary tests. These will be reviewed again and we will call you if there are any new suggestions. If your symptoms continue notify your physician. After you leave, you should follow the instructions provided. What to do next Follow-Up Appointments Follow Up with Follow up with specialist When Within 2 to 4 days Comments urology at [facility] Follow Up with Follow up with primary care provider When Within 2 to 4 days Follow Up with [facility] When Within As needed Comments Patient stated she is currently established with Nicole Whyte. Feel free to contact our [facility] at [phone] for any future Physician scheduling needs. Follow Up with NICOLE WHYTE When Within 2 to 3 days Where: [address] [address] Business (1) Allergies most abx Keflex Toradol amoxicillin-clavulanate (SOA, SOA) cefaclor ciprofloxacin (HIVES, HIVES) codeine doxycycline (RASH/SOA, RASH/SOA) gatifloxacin midazolam nitrofurantoin (RASH/SOA, RASH/SOA) ondansetron sulfa drugs Immunizations This Visit No Immunizations Found Medications What How Much When Instructions Next Dose New levoFLOXacin (levoFLOXacin 500 mg oral tablet) 1 Tablet(s) Oral Interval Every 24 Hours Duration: 7 Day(s) Printed Prescription New oxyCODONE (oxyCODONE 5 mg oral capsule) 1 Capsule(s) Oral Every 6 Hours as needed for as needed for pain Printed Prescription Changed nystatin topical (nystatin 100,000 units/ g topical cream) 1 Application(s) Topical Two Times A Day apply to affected area until rash resolves Printed Prescription Changed nystatin topical (nystatin 100,000 units/ g topical powder) 1 Application(s) Topical Two Times A Day Changed promethazine (promethazine 25 mg oral tablet) 1 Tablet(s) Oral Every 6 Hours as needed for for nausea/vomiting Printed Prescription Changed promethazine (promethazine 25 mg oral tablet) 1 Tablet(s) Oral Every 6 Hours Duration: 5 Day(s) The home medications listed are only as accurate as the information you provided. Please continue taking all of your medications prescribed by your Primary Care Provider unless specifically told to change or discontinue the medication. Please direct any questions regarding your home medications to your Primary Care Provider. Take your medications faithfully. Do NOT skip medication. Do NOT stop taking medications without the direction of a physician. Carry a list of your medications with you at all times, and take this medication list with you to your first follow up visit. Report any side effects. Avoid herbal remedies unless discussed with your physician. As part of your treatment plan, your physician may have prescribed a limited course of a controlled substance. This medication may be given to help people with moderate or severe pain or for other medical conditions, but there are risks involved with treatment. Common side effects may include nausea, constipation, drowsiness, sweating, itching, dry mouth, and rash. More serious side effects may include cognitive and motor impairment, like problems with thinking, concentrating, alertness, and movement (e.g. slowed reflexes), and driving and operating heavy machinery can be dangerous. It is important for you to talk to your physician if you have these side effects or questions. These controlled substances can produce physical dependence and be habit-forming if taken for an extended period of time, which means that the body has gotten used to them and may experience withdrawal symptoms if they are abruptly stopped. Withdrawal symptoms can include runny nose, sweating, goose bumps, diarrhea, abdominal cramping, rapid heartbeat, difficulty sleeping, and nervousness. Please dispose of unused and medications per pharmacy guidance. Test Results Laboratory or Other Results This Visit (last charted value for your 10/15/2019 visit) Urinalysis 10/15/2019 10:27 PM Ur RBC: 5-10 /HPF Urine Nitrite: Negative Urine Leukocyte Esterase: Small Urine Appearance: Slightly Hazy Urine Glucose Dipstick: Negative Urine Blood Dipstick: Trace - Intact Urine Type: U CleanCatch Urine Urobilinogen Dipstick: 0.2 EU/dL Urine Protein Dipstick: Trace Ur Bacteria: 2+ Ur Squamous Epithelial Cells: 20-50 /HPF Urine Color: Yellow Ur WBC: 10-20 /HPF Urine Ketones Dipstick: Negative Ur Mucous: 2+ Ur Yeast: 1+ Urine pH Dipstick: 7.0 -- Normal range between ( 6.0 and 8.0 ) Urine Bilirubin Dipstick: Negative Urine Specific [place]: 1.025 -- Normal range between ( 1.005 and 1.030 ) Microbiology 10/15/2019 10:27 PM Rapid Strep Test: See Result Education Materials Acute Back Pain, Adult Acute back pain is sudden and usually short-lived. It is often caused by an injury to the muscles and tissues in the back. The injury may result from: ??? A muscle or ligament getting overstretched or torn (strained). Ligaments are tissues that connect bones to each other. Lifting something improperly can cause a back strain. ??? Wear and tear (degeneration) of the spinal disks. Spinal disks are circular tissue that provides cushioning between the bones of the spine (vertebrae). ??? Twisting motions, such as while playing sports or doing yard work. ??? A hit to the back. ??? Arthritis. You may have a physical exam, lab tests, and imaging tests to find the cause of your pain. Acute back pain usually goes away with rest and home care. Follow these instructions at home: Managing pain, stiffness, and swelling ??? Take gmcr-qjc-hsmkzis and prescription medicines only as told by your health care provider. ??? Your health care provider may recommend applying ice during the first 24???48 hours after your pain starts. To do this: ? Put ice in a plastic bag. ? Place a towel between your skin and the bag. ? Leave the ice on for 20 minutes, 2???3 times a day. ??? If directed, apply heat to the affected area as often as told by your health care provider. Use the heat source that your health care provider recommends, such as a moist heat pack or a heating pad. ? Place a towel between your skin and the heat source. ? Leave the heat on for 20???30 minutes. ? Remove the heat if your skin turns bright red. This is especially important if you are unable to feel pain, heat, or cold. You have a greater risk of getting burned. Activity ??? Do not stay in bed. Staying in bed for more than 1???2 days can delay your recovery. ??? Sit up and stand up straight. Avoid leaning forward when you sit, or hunching over when you stand. ? If you work at a desk, sit close to it so you do not need to lean over. Keep your chin tucked in. Keep your neck drawn back, and keep your elbows bent at a right angle. Your arms should look like the letter L. ? Sit high and close to the steering wheel when you drive. Add lower back (lumbar) support to your car seat, if needed. ??? Take short walks on even surfaces as soon as you are able. Try to increase the length of time you walk each day. ??? Do not sit, drive, or smoking pipes cleaner one place for more than 30 minutes at a time. Sitting or standing for long periods of time can put stress on your back. ??? Do not drive or use heavy machinery while taking prescription pain medicine. ??? Use proper lifting techniques. When you bend and lift, use positions that put less stress on your back: ? Bend your knees. ? Keep the load close to your body. ? Avoid twisting. ??? Exercise regularly as told by your health care provider. Exercising helps your back heal faster and helps prevent back injuries by keeping muscles strong and flexible. ??? Work with a physical therapist to make a safe exercise program, as recommended by your health care provider. Do any exercises as told by your physical therapist. Lifestyle ??? Maintain a healthy weight. Extra weight puts stress on your back and makes it difficult to have good posture. ??? Avoid activities or situations that make you feel anxious or stressed. Stress and anxiety increase muscle tension and can make back pain worse. Learn ways to manage anxiety and stress, such as through exercise. General instructions ??? Sleep on a firm mattress in a comfortable position. Try lying on your side with your knees slightly bent. If you lie on your back, put a pillow under your knees. ??? Follow your treatment plan as told by your health care provider. This may include: ? Cognitive or behavioral therapy. ? Acupuncture or massage therapy. ? Meditation or yoga. Contact a health care provider if: ??? You have pain that is not relieved with rest or medicine. ??? You have increasing pain going down into your legs or buttocks. ??? Your pain does not improve after 2 weeks. ??? You have pain at night. ??? You lose weight without trying. ??? You have a fever or chills. Get help right away if: ??? You develop new bowel or bladder control problems. ??? You have unusual weakness or numbness in your arms or legs. ??? You develop nausea or vomiting. ??? You develop abdominal pain. ??? You feel faint. Summary ??? Acute back pain is sudden and usually short-lived. ??? Use proper lifting techniques. When you bend and lift, use positions that put less stress on your back. ??? Take nvzx-zsp-iztqbzv and prescription medicines and apply heat or ice as directed by your health care provider. This information is not intended to replace advice given to you by your health care provider. Make sure you discuss any questions you have with your health care provider. Document Released: 08/30/2006 Document Revised: 04/13/2018 Document Reviewed: 04/13/2018 [employer] Interactive Patient Education ?? 2019 [employer]. Urinary Tract Infection, Adult A urinary tract infection (UTI) is an infection of any part of the urinary tract, which includes the kidneys, ureters, bladder, and urethra. These organs make, store, and get rid of urine in the body. UTI can be a bladder infection (cystitis) or kidney infection (pyelonephritis). What are the causes? This infection may be caused by fungi, viruses, or bacteria. Bacteria are the most common cause of UTIs. This condition can also be caused by repeated incomplete emptying of the bladder during urination. What increases the risk? This condition is more likely to develop if: ??? You ignore your need to urinate or hold urine for long periods of time. ??? You do not empty your bladder completely during urination. ??? You wipe back to front after urinating or having a bowel movement, if you are female. ??? You are uncircumcised, if you are male. ??? You are constipated. ??? You have a urinary catheter that stays in place (indwelling). ??? You have a weak defense (immune) system. ??? You have a medical condition that affects your bowels, kidneys, or bladder. ??? You have diabetes. ??? You take antibiotic medicines frequently or for long periods of time, and the antibiotics no longer work well against certain types of infections (antibiotic resistance). ??? You take medicines that irritate your urinary tract. ??? You are exposed to chemicals that irritate your urinary tract. ??? You are female. What are the signs or symptoms? Symptoms of this condition include: ??? Fever. ??? Frequent urination or passing small amounts of urine frequently. ??? Needing to urinate urgently. ??? Pain or burning with urination. ??? Urine that smells bad or unusual. ??? Cloudy urine. ??? Pain in the lower abdomen or back. ??? Trouble urinating. ??? Blood in the urine. ??? Vomiting or being less hungry than normal. ??? Diarrhea or abdominal pain. ??? Vaginal discharge, if you are female. How is this diagnosed? This condition is diagnosed with a medical history and physical exam. You will also need to provide a urine sample to test your urine. Other tests may be done, including: ??? Blood tests. ??? Sexually transmitted disease (STD) testing. If you have had more than one UTI, a cystoscopy or imaging studies may be done to determine the cause of the infections. How is this treated? Treatment for this condition often includes a combination of two or more of the following: ??? Antibiotic medicine. ??? Other medicines to treat less common causes of UTI. ??? Ooih-txx-pjudhwo medicines to treat pain. ??? Drinking enough water to stay hydrated. Follow these instructions at home: ??? Take ssvo-wms-vulofum and prescription medicines only as told by your health care provider. ??? If you were prescribed an antibiotic, take it as told by your health care provider. Do not stop taking the antibiotic even if you start to feel better. ??? Avoid alcohol, caffeine, tea, and carbonated beverages. They can irritate your bladder. ??? Drink enough fluid to keep your urine clear or pale yellow. ??? Keep all follow-up visits as told by your health care provider. This is important. ??? Make sure to: ? Empty your bladder often and completely. Do not hold urine for long periods of time. ? Empty your bladder before and after sex. ? Wipe from front to back after a bowel movement if you are female. Use each tissue one time when you wipe. Contact a health care provider if: ??? You have back pain. ??? You have a fever. ??? You feel nauseous or vomit. ??? Your symptoms do not get better after 3 days. ??? Your symptoms go away and then return. Get help right away if: ??? You have severe back pain or lower abdominal pain. ??? You are vomiting and cannot keep down any medicines or water. This information is not intended to replace advice given to you by your health care provider. Make sure you discuss any questions you have with your health care provider. Document Released: 06/09/2006 Document Revised: 02/22/2018 Document Reviewed: 07/20/2016 [employer] Interactive Patient Education ?? 2019 [employer] Sore Throat A sore throat is pain, burning, irritation, or scratchiness in the throat. When you have a sore throat, you may feel pain or tenderness in your throat when you swallow or talk. Many things can cause a sore throat, including: ??? An infection. ??? Seasonal allergies. ??? Dryness in the air. ??? Irritants, such as smoke or pollution. ??? Gastroesophageal reflux disease (GERD). ??? A tumor. A sore throat is often the first sign of another sickness. It may happen with other symptoms, such as coughing, sneezing, fever, and swollen neck glands. Most sore throats go away without medical treatment. Follow these instructions at home: ??? Take sjqm-nas-ipbrazu medicines only as told by your health care provider. ??? Drink enough fluids to keep your urine clear or pale yellow. ??? Rest as needed. ??? To help with pain, try: ? Sipping warm liquids, such as broth, herbal tea, or warm water. ? Eating or drinking cold or frozen liquids, such as frozen ice pops. ? Gargling with a salt-water mixture 3???4 times a day or as needed. To make a salt-water mixture, completely dissolve ?1 tsp of salt in 1 cup of warm water. ? Sucking on hard candy or throat lozenges. ? Putting a cool-mist humidifier in your bedroom at night to moisten the air. ? Sitting in the bathroom with the door closed for 5???10 minutes while you run hot water in the shower. ??? Do not use any tobacco products, such as cigarettes, chewing tobacco, and e-cigarettes. If you need help quitting, ask your health care provider. Contact a health care provider if: ??? You have a fever for more than 2???3 days. ??? You have symptoms that last (are persistent) for more than 2???3 days. ??? Your throat does not get better within 7 days. ??? You have a fever and your symptoms suddenly get worse. Get help right away if: ??? You have difficulty breathing. ??? You cannot swallow fluids, soft foods, or your saliva. ??? You have increased swelling in your throat or neck. ??? You have persistent nausea and vomiting. This information is not intended to replace advice given to you by your health care provider. Make sure you discuss any questions you have with your health care provider. Document Released: 10/07/2005 Document Revised: 04/25/2017 Document Reviewed: 06/19/2016 [employer] Interactive Patient Education ?? 2019 [employer]. Emergency Awareness and Preventative Care STROKE is an EMERGENCY Every Minute Counts Act FAST and Check for these signs: FACE Does the face look uneven? ARM Does one arm drift down? SPEECH Does their speech sound strange? TIME Call at any sign of stroke Stroke Risk Factors Atrial Fibrillation (irregular heartbeat) Diabetes Family history of stroke Heart Disease Heavy alcohol use High Blood Pressure High Cholesterol Physical inactivity and obesity Smoking Cigarette Smoking The facts are clear, cigarette smoking will shorten your life. Smoking can cause many illnesses along the way. As a healthcare provider, we recommend that you stop smoking. Assistance with quitting is available by contacting 8-099-KQXB-NOW. This is a free resource providing counseling, support, and referral. Or you may contact your personal physician. National Suicide Prevention Lifeline: The National Suicide Prevention Lifeline is a national network of local crisis centers that provides free and confidential emotional support to people in suicidal crisis or emotional distress 24 hours a day, 7 days a week. Don't Wait! Stop a Heart Attack Before it Starts What is a heart attack? A heart attack is damage or to a part of the heart from severely decreased or lack of blood flow to the heart. Over time, arteries can become narrow from the buildup of fat and cholesterol, which is called plaque. The plaque can rupture causing a blood clot to form. When the blood clot forms, the artery can become severely narrowed or completely blocked, causing a heart attack. Heart attack is the leading cause of in the [place]. 85% of muscle damage occurs within the first 2 hours. Delay in the recognition of heart attack symptoms increases the chances of . Know the early symptoms of a heart attack: Nausea Feeling of fullness in chest Jaw Pain Pain that travels down one or both arms Fatigue/being tired Anxiety Back Pain Chest pressure, squeezing, or discomfort Shortness of breath Sweating, or a cold sweat Feeling of impending doom There are unusual signs of a heart attack, too! Women, the elderly, and diabetics may present with atypical symptoms: Fainting/dizziness Weakness Confusion Risk Factors for a Heart Attack Some heart disease risk factors, such as age and family history, cannot be changed. Others, like smoking and lack of exercise, can be changed. Smoking High Cholesterol High Blood Pressure Family History Obesity Age Gender (Males are at higher risk) Lack of Exercise Diabetes Diet Stress Excessive Alcohol Intake If you or someone you know is experiencing the signs and symptoms of a heart attack, DON???T DELAY. Call immediately and seek help. If someone collapses, perform CPR! Do not attempt to drive if you are having symptoms of heart attack. Hands-Only CPR Why Hands-Only CPR? Hands-Only CPR has been shown to be as effective as conventional CPR for cardiac arrests that occur outside of a hospital. Survival depends on immediately receiving CPR from someone nearby. How do you perform Hands-Only CPR? There are two easy steps: Call if you see a teen or adult collapse Push hard and fast in the center of the chest at a beat of 100 beats per minute. Save a life! 4 WAYS TO GET AHEAD OF SEPSIS SEPSIS is a MEDICAL EMERGENCY. Time matters! Infections put you and your family at risk for a life-threatening condition called sepsis. Sepsis is the body's extreme response to an infection. It is life-threatening, and without timely treatment, sepsis can rapidly lead to tissue damage, organ failure, and . Sepsis happens when an infection you already have-in your skin, lungs, urinary tract or somewhere else-triggers a chain reaction throughout your body. 1 PREVENT INFECTIONS Take good care of chronic conditions. Talk to your doctor about getting the recommended vaccines. 2 PRACTICE GOOD HYGIENE Wash your hands frequently. Keep cuts or open sores clean and covered until they are healed. 3 KNOW THE SYMPTOMS Confusion or disorientation Shortness of breath High heart rate Fever, shivering, or feeling very cold Extreme pain or discomfort Clammy or sweaty skin 4 ACT FAST Get medical care IMMEDIATELY if you suspect sepsis or if you have an infection that is not getting better or is getting worse. To learn more about sepsis and how to prevent infections, visit www.cdc.gov/sepsis. The examination and treatment you have received in the Emergency Department has been done to provide an appropriate evaluation and stabilizing treatment on an emergency basis only. Given the limited resources, it is not meant to be a substitute for complete medical care. The follow-up doctor you named will receive a copy of your records and all test reports. IT IS IMPORTANT THAT YOU SCHEDULE A FOLLOW-UP APPOINTMENT AND ARE RE-EVALUATED. You should report any new complaints, symptoms, or remaining problems at that time. IT IS IMPOSSIBLE FOR THE EMERGENCY DEPARTMENT TO RECOGNIZE AND TREAT ALL ELEMENTS OF INJURY OR ILLNESS IN A SINGLE VISIT. If you have been referred to a specialist physician, it means that we believe you may have a condition that requires the expertise of a specialist. These physicians work in partnership with the hospital and have agreed to see referred patients in their office for further evaluation. KEEP IN MIND THAT THE SPECIALIST HAS HIS/HER OWN OFFICE POLICIES WHICH MAY REQUIRE PROPER INSURANCE OR PAYMENT UP FRONT BEFORE THE SPECIALIST WILL SEE YOU. It is your responsibility to call the specialist physician to make an appointment. We do not have the ability to refer patients to specialists/physicians that work with specific insurance companies. Please be advised that all financial charges or billing practices are determined by that practice, not the hospital. If your insurance company requires that you see a specialist from their approved list, it is your responsibility to contact your insurance company to make those arrangements. It is also your responsibility to follow any other requirements of your insurance company necessary to obtain coverage for claims submitted. We will bill your insurance; however, you are responsible today for any co-pay amounts. You will receive a separate bill for any services you may have received including: emergency, radiology, or pathology physicians. Patient Name:APOLONIA OREN A I have received this information and was given the opportunity to ask questions. Patient/Platinum Smith Name: Patient/Platinum Smith Signature: Relationship to Patient: Clinician/Hospital [facility] Smith Signature: Please Provide a Telephone Number Where You Can Be Reached: Is it Permissible To Leave a Message? Date: Electronically signed by Eron, [facility] Conversion Hydrography Teacher Vijay at 12/29/2022 4:14 PM CDT documented in this encounter Plan of Treatment Not on file documented as of this encounter Visit Diagnoses Not on filedocumented in this encounter
--- OUTSIDE RECORDS SUMMARY | 2025-06-07 16:15 | XMS_ITS | Encounter Summary ---
Author Organization [employer] ([place], [place], [place], [place]) Address [address] [place] [address] Care Team Providers Care Transportation Refrigeration Technician Name Role Phone Unavailable Primary Care Provider Unavailabl e Encounter Details Date Type Department Care Team (Late st Contact Info) Description 11/05/2019 Transcribed Document [facility] [place] Medicine [address] [place] [address] ProviderJulio MD [address] [place] [address] 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 Tobacco Use Types Packs/Day Years Used Date Smoking Tobacco: Never Assessed Comments Unknown Sex and Gender Information Value Date Recorded Sex Assigned at Female 03/12/2022 2:43 PM CDT Legal Sex Female 5:44 PM CDT Gender Identity Female 03/12/2022 2:43 PM CDT Sexual Orientation Not on file documented as of this encounter Miscellaneous Notes * Cerner Conversion Note - Historical ProviderMD - 11/05/2019 4:31 AM CLIENT BUSINESS MANAGER Electronically signed by Eron [facility] Conversion Speaker Mounter Cerner at 12/29/2022 4:06 PM CDT documented in this encounter Plan of Treatment Not on file documented as of this encounter Visit Diagnoses Not on filedocumented in this encounter
--- OUTSIDE RECORDS SUMMARY | 2025-06-07 16:15 | XMS_ITS | Encounter Summary ---
Author Organization [employer] ([place], [place], [place], [place]) Address [address] [place] [address] Care Team Providers Care Community Service Officer Coordinator Name Role Phone Unavailable Primary Care Provider Unavailabl e Encounter Details Date Type Department Care Team (Late st Contact Info) Description 11/05/2019 Transcribed Document [facility] [place] [address] [place] [address] ProviderJulio MD [address] [place] [address] 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 Tobacco Use Types Packs/Day Years [...] Conversion Note - Julio Van MD - 11/05/2019 4:45 AM [facility]END SORTER ED Discharge Entered On: 11/05/2019 4:45 EST Performed On: 11/05/2019 4:45 EST by Candelaria Albert RN Discharge Process Patient Disposition : Discharge Patient Education Completed : Yes Teaching Evaluation : Verbalizes understanding Nursing Documentation Completed : Yes Candelaria Albert RN - 11/05/2019 4:45 EST ED Discharge Discharge To : Home with ambulatory/outpatient follow-up Mode Of Departure : Ambulatory Accompanied By : Unaccompanied Discharge Instructions Reviewed With, Opportunity For Questions Given : Patient Prescriptions Given to Patient : Yes Number of Prescriptions Given : 2 Medications Given to Patient : Yes Number of Medications Given : 1 Candelaria Albert RN - 11/05/2019 4:45 EST Electronically signed by Eron [facility] Conversion Applications Development Analyst Cerner at 12/29/2022 4:06 PM CDT documented in this encounter Plan of Treatment Not on file documented as of this encounter Visit Diagnoses Not on filedocumented in this encounter
--- OUTSIDE RECORDS SUMMARY | 2025-06-07 16:15 | XMS_ITS | Encounter Summary ---
Author Organization [employer] ([place], [place], [place], [place]) Address [address] [place] [address] Care Team Providers Care Alteration Workroom Supervisor Name Role Phone Unavailable Primary Care Provider Unavailabl e Encounter Details Date Type Department Care Team (Late st Contact Info) Description 11/05/2019 Transcribed Document [facility] [place] [address] [place] [address] ProviderJulio MD [address] [place] [address] 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 Tobacco Use Types Packs/Day Years Used Date Smoking Tobacco: Never Assessed Comments Unknown Sex and Gender Information Value Date Recorded Sex Assigned at Female 03/12/2022 2:43 PM CDT Legal Sex Female 5:44 PM CDT Gender Identity Female 03/12/2022 2:43 PM CDT Sexual Orientation Not on file documented as of this encounter Miscellaneous Notes * Cerner Conversion Note - Julio ProviderMD - 11/05/2019 3:53 AM DISPATCHER AUTOMOBILE RENTAL [place] Suicide Severity Rating Scale (C-SSRS) Entered On: 11/05/2019 4:11 EST Performed On: 11/05/2019 4:11 EST by Candelaria Albert RN [place] Suicide Severity Rating Scale (C-SSRS) CSSRS Past Month Wish to be : No CSSRS Past Month Suicidal Thoughts : No CSSRS Lifetime Suicide Behavior : No Suicide Severity Rating Score : 0 Suicide Severity Rating : No Additional Care Required at this time Thoughts of Harming/Killing Others : No Candelaria Albert RN - 11/05/2019 4:11 EST Electronically signed by Eron, [facility] Conversion Steam Fitter Helper Cerner at 12/29/2022 4:06 PM CDT documented in this encounter Plan of Treatment Not on file documented as of this encounter Visit Diagnoses Not on filedocumented in this encounter
--- OUTSIDE RECORDS SUMMARY | 2025-06-07 16:15 | XMS_ITS | Encounter Summary ---
Author Organization [employer] ([place], [place], [place], [place]) Address [address] [place] [address] Care Team Providers Care Director Strategic Planning Name Role Phone Unavailable Primary Care Provider Unavailabl e Encounter Details Date Type Department Care Team (Late st Contact Info) Description 10/16/2019 Transcribed Document [facility] Radiology [address] [place] [address] Mary Ann Chadwick MD [address] [facility] Dept [place] [address] 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 Tobacco Use Types Packs/Day Years Used Date Smoking Tobacco: Never Assessed Comments Unknown Sex and Gender Information Value Date Recorded Sex Assigned at Female 03/12/2022 2:43 PM CDT Legal Sex Female 5:44 PM CDT Gender Identity Female 03/12/2022 2:43 PM CDT Sexual Orientation Not on file documented as of this encounter Miscellaneous Notes * Cerner Conversion Note - Mary Ann Chadwick MD - 10/16/2019 1:01 AM EST Patient: OREN KIM Age: 34 years Sex: Female : 1985 Associated Diagnoses: Mariana UTI; Throat pain; Left flank pain; Bacteriuria Author: MARY ANN CHADWICK MD Basic Information Time seen: Date & time 10/15/2019 23:17:00. History source: Patient. Additional information: Chief Complaint from Nursing Triage Note : Chief Complaint 10/15/2019 22:19 EST Chief Complaint pt presents with c/o throat pain that started yesterday and left flank pain that started 1 week ago . History of Present Illness The patient presents with throat pain. The onset was 1 days ago. Location: throat. The character of symptoms is pain. The degree at present is 8 /10. Associated symptoms: left low back pain for about a week, rash under pannus patient states is due to sweating and yeast, ran out of nystatin.. History of kidney stones, ureteral stents. Urologist Dr. Acosta can no longer see patient, she can go to [place] for urology she says.. 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 Review of Systems Constitutional symptoms: Negative except as documented in HPI. ENMT symptoms: Sore throat. Gastrointestinal symptoms: Negative except as documented in HPI. Genitourinary symptoms: No dysuria, Musculoskeletal symptoms: Back pain. Health Status Allergies: Allergic Reactions (Selected) Severity Not Documented most abx - No reactions were documented. Amoxicillin-clavulanate- Soa and soa. Cefaclor- No reactions were documented. Ciprofloxacin- Hives and hives. Codeine- No reactions were documented. Doxycycline- Rash/soa and rash/soa. Gatifloxacin- No reactions were documented. Keflex- No reactions were documented. Midazolam- No reactions were documented. Nitrofurantoin- Rash/soa and rash/soa. Ondansetron- No reactions were documented. Sulfa drugs- No reactions were documented. Toradol- No reactions were documented.. Medications: (Selected) Prescriptions Prescribed nystatin 100,000 units/g topical powder: 1 Application, Topical, BID, 60 Gram, 0 Refill(s) promethazine 25 mg oral tablet: 1 Tab, Oral, Q6H, for 5 Day(s), 20 Tab, 0 Refill(s) Documented Medications Documented BuSpar: Oral, BID, 0 Refill(s) Paxil 40 mg oral tablet: 1 Tab, Oral, Daily, 0 Refill(s) albuterol HFA 90 mcg/inh inhalation aerosol: Puff, Inhalation, QID, 0 Refill(s) gabapentin: Oral, 0 Refill(s) hydrOXYzine hydrochloride 25 mg oral tablet: 0 Refill(s) ibuprofen 800 mg oral tablet: 0 Refill(s) tiZANidine 6 mg oral capsule: 1 Cap, Oral, TID, 90 Cap, 0 Refill(s). Past Medical/ Family/ 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 Medical history Reviewed as documented in chart. obesity. Surgical history: Lithotripsy ([id number])., Reviewed as documented in chart, hysterectomy, BSO. Family history: No family history items have been selected or recorded.. Social history: Social & Psychosocial Habits Alcohol 02/24/2015 Alcohol Use History, Social Habits No Substance Abuse 02/24/2015 Recreational Drug Use Last 12 Months No Tobacco 02/24/2015 Tobacco Use Within Last Twelve Months Snuff/Dip Packs/Tins Daily 0.5 , Reviewed as documented in chart. Problem list: Active Problems (2) Kidney stones PTSD (post-traumatic stress disorder) . Physical Examination Vital Signs Vital Signs/Vital Measures 10/15/2019 23:49 EST Systolic Blood Pressure 177 mmHg HI Diastolic Blood Pressure 101 mmHg HI Temperature Mode Fahrenheit 10/15/2019 22:19 EST Systolic Blood Pressure 186 mmHg HI Diastolic Blood Pressure 109 mmHg HI Temperature Source Oral Temperature Mode Fahrenheit Temperature, Fahrenheit 98.6 Deg F Clinical Temperature, C 37 Deg C Peripheral Pulse Rate 108 bpm HI Respiratory Rate 18 Breaths/Min Oxygen Saturation 97 % Oxygen Therapy Mode Room air . Measurements 10/15/2019 22:19 EST Height Source Stated Height Entry Format Nolan Height/Length, BARBADIAN (ft) 5 ft Height/Length BARBADIAN 2 Inch CLINICALHEIGHT 157.48 cm Wolf Body Weight 49.73 kg Weight Source, ED Critical estimated dosing weight Weight Entry Format Nolan Weight Bulgarian lb 220 lb CLINICALWEIGHT 100 kg Body Surface Area (BSA) 1.99 m2 Body Mass Index 40.3 kg/m2 >HHI . Oxygen Saturation 10/15/2019 22:19 EST Oxygen Saturation 97 % . General: Alert, obese, hirsute. Skin: Warm, dry. Eye: no photophobia, Sclera: not icteric. Ears, nose, mouth and throat: Oral mucosa moist, no pharyngeal erythema or exudate, Nose: no bleeding. Neck: Supple, no meningismus, right anterior cervical mild firm tender mobile lymphadenopathy. . Gastrointestinal: Soft, Nontender, Non distended. Back: left flank area unremarkable to inspection. Left lumbar paravertebral tenderness. No CVA tenderness. No midline L spine tenderness or step off.. Neurological: Normal speech observed, no dysarthria, no facial droop. Medical Decision Making Differential Diagnosis: Viral pharyngitis, streptococcal pharyngitis, UTI, ureterolithiasis, pyelonephritis. Documents reviewed: Emergency department records, prior records, WILLIS report reviewed, request #[id number], prior urine culture E coli, pansensitive. Orders Include Previous Orders (Selected) Inpatient Orders Ordered Discharge: Ordered (Collected) Culture Urine: Ordered (In-Lab) .Strep A Confirmation: Completed .Urinalysis Microscopic: ED Adult Fall Risk Assessment: ED Adult Triage: ED C-SSRS: ED Clinical Reconciliation: ED data storage specialist: Percocet 5/325 oral tablet: 1 Tab, Oral, 1-Time Rapid Strep Screen: Urinalysis w Microscopic if Indicated: diphenhydrAMINE: 50 mg, Oral, 1-Time fluconazole: 200 mg, Oral, 1-Time levoFLOXacin: 500 mg, Oral, 1-Time promethazine: 25 mg, Oral, 1-Time Prescriptions Prescribed levoFLOXacin 500 mg oral tablet: 1 Tab, Oral, [id number], for 7 Day(s), 7 Tab, 0 Refill(s) nystatin 100,000 units/g topical cream: 1 Application, Topical, BID, apply to affected area until rash resolves, 30 Gram, 0 Refill(s) oxyCODONE 5 mg oral capsule: 1 Cap, Oral, Q6H, PRN: as needed for pain, 12 Cap, 0 Refill(s) promethazine 25 mg oral tablet: 1 Tab, Oral, Q6H, PRN: for nausea/vomiting, 20 Tab, 0 Refill(s) . Results review: Lab results : Lab Results 10/15/2019 22:27 EST Urine Type U CleanCatch Urine Color Yellow Urine Appearance Slightly Hazy Urine Specific [place] 1.025 Urine pH Dipstick 7.0 Urine Leukocyte Esterase Small Urine Nitrite Negative Urine Protein Dipstick Trace Urine Glucose Dipstick Negative Urine Ketones Dipstick Negative Urine Urobilinogen Dipstick 0.2 EU/dL Urine Bilirubin Dipstick Negative Urine Blood Dipstick Trace - Intact Ur RBC 5-10 /HPF Ur WBC 10-20 /HPF Ur Bacteria 2+ Ur Mucous 2+ Ur Squamous Epithelial Cells 20-50 /HPF Ur Yeast 1+ Rapid Strep Test See Result , rapid strep negative. Reexamination/ Reevaluation Time: 10/16/2019 00:02:00 . Notes: 164/104 repeat BP, pt feels better. Impression and Plan Diagnosis Mariana UTI - Discharge, Emergency medicine, Medical Throat pain - Discharge, Emergency medicine, Medical Left flank pain - Discharge, Emergency medicine, Medical Bacteriuria - Discharge, Emergency medicine, Medical Plan Condition: Stable. Disposition: Discharged Admit/Transfer/Discharge: Discharge (Order): Start: 10/16/2019 0:03 EST, Discharge to: Home. Prescriptions: Prescription [facility]: nystatin 100,000 units/g topical cream (Prescribe): 1 Application, Topical, BID, apply to affected area until rash resolves, 30 Gram, 0 Refill(s) levoFLOXacin 500 mg oral tablet (Prescribe): 1 Tab, Oral, [id number], for 7 Day(s), 7 Tab, 0 Refill(s) oxyCODONE 5 mg oral capsule (Prescribe): 1 Cap, Oral, Q6H, PRN: as needed for pain, 12 Cap, 0 Refill(s) promethazine 25 mg oral tablet (Prescribe): 1 Tab, Oral, Q6H, PRN: for nausea/vomiting, 20 Tab, 0 Refill(s). Patient was given the following educational materials: Sore Throat, Urinary Tract Infection, Adult, Acute Back Pain, Adult. Follow up with: [facility] Within As needed Patient stated she is currently established with Nicole Whyte. Feel free to contact our Patient Resource Center at [phone] for any future Physician scheduling needs. ; NICOLE WHYTE Within 2 to 3 days; Follow up with primary care provider Within 2 to 4 days; Follow up with specialist Within 2 to 4 days urology at [facility]. Counseled: Patient, Regarding diagnostic results, Regarding treatment plan. documented in this encounter Plan of Treatment Not on file documented as of this encounter Visit Diagnoses Not on filedocumented in this encounter
--- OUTSIDE RECORDS SUMMARY | 2025-06-07 16:15 | XMS_ITS | Encounter Summary ---
Author Organization [employer] ([place], [place], [place], [place]) Address [address] [place] [address] Care Team Providers Care Promotions Coordinator Name Role Phone Unavailable Primary Care Provider Unavailabl e Encounter Details Date Type Department Care Team (Late st Contact Info) Description 10/16/2019 Transcribed Document [facility] Radiology [address] [place] [address] Mary Ann Chadwick MD One [facility] Dept of [place] [address] 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 Tobacco Use Types Packs/Day Years [...] - Mary Ann Chadwick MD - 10/16/2019 1:06 AM EST documented in this encounter Plan of Treatment Not on file documented as of this encounter Visit Diagnoses Not on filedocumented in this encounter
--- OUTSIDE RECORDS SUMMARY | 2025-06-07 16:15 | XMS_ITS | Encounter Summary ---
Author Organization [employer] ([place], [place], [place], [place]) Address [address] [place] [address] Care Team Providers Care Scada Operator Name Role Phone Unavailable Primary Care Provider Unavailabl e Encounter Details Date Type Department Care Team (Late st Contact Info) Description 10/16/2019 Transcribed Document [facility] [place] [address] [place] [address] ProviderJulio MD [address] [place] [address] 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 Tobacco Use Types Packs/Day Years [...] Note - Julio Van MD - 10/16/2019 12:10 AM COMMERCIAL LENDER ED Discharge Entered On: 10/16/2019 0:10 EST Performed On: 10/16/2019 0:10 EST by Leonel Shetty, Patent Engineer Process Patient Disposition : Discharge Personal Belongings With Patient : Yes Patient Education Completed : Yes Teaching Evaluation : Verbalizes understanding IV Discontinued : Not applicable Nursing Documentation Completed : Yes Leonel Shetty, Rn - 10/16/2019 0:10 EST ED Discharge Discharge To : Home without planned follow-up Mode Of Departure : Ambulatory Accompanied By : Son Discharge Instructions Reviewed With, Opportunity For Questions Given : Patient Prescriptions Given to Patient : Yes Medications Given to Patient : Yes Leonel Shetty Rn - 10/16/2019 0:10 EST Electronically signed by [facility], [facility] Conversion Pad Hand Cerner at 12/29/2022 4:02 PM CDT documented in this encounter Plan of Treatment Not on file documented as of this encounter Visit Diagnoses Not on filedocumented in this encounter
--- OUTSIDE RECORDS SUMMARY | 2025-06-07 16:15 | XMS_ITS | Encounter Summary ---
Author Organization [employer] ([place], [place], [place], [place]) Address [address] [place] [address] Care Team Providers Care Corn Picker Name Role Phone Unavailable Primary Care Provider Unavailabl e Encounter Details Date Type Department Care Team (Late st Contact Info) Description 10/15/2019 Transcribed Document [facility] [place] [address] [place] [address] ProviderJulio MD [address] [place] [address] 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 Tobacco Use Types Packs/Day Years [...] - Julio ProviderMD - 10/15/2019 10:16 PM SENIOR ENERGY TRADER [place] Suicide Severity Rating Scale (C-SSRS) Entered On: 10/15/2019 23:14 EST Performed On: 10/15/2019 23:13 EST by Leonel Shetty Rn [place] Suicide Severity Rating Scale (C-SSRS) CSSRS Past Month Wish to be : No CSSRS Past Month Suicidal Thoughts : No CSSRS Lifetime Suicide Behavior : No Suicide Severity Rating Score : 0 Suicide Severity Rating : No Additional Care Required at this time Leonel Shetty Rn - 10/15/2019 23:13 EST Electronically signed by Eron [facility] Conversion Global Compensation Director Cerner at 12/29/2022 4:17 PM CDT documented in this encounter Plan of Treatment Not on file documented as of this encounter Visit Diagnoses Not on filedocumented in this encounter
--- OUTSIDE RECORDS SUMMARY | 2025-06-07 16:15 | XMS_ITS | Encounter Summary ---
Author Organization [employer] ([place], [place], [place], [place]) Address [address] [place] [address] Care Team Providers Care Call Worker Name Role Phone Unavailable Primary Care Provider Unavailabl e Encounter Details Date Type Department Care Team (Late st Contact Info) Description 11/05/2019 Transcribed Document [facility] [place] [address] [place] [address] ProviderJulio MD [address] [place] [address] 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 Tobacco Use Types Packs/Day Years [...] Note - Julio Van MD - 11/05/2019 4:31 AM SECURITY SOLUTIONS ARCHITECT [facility] [address] [place] [address] OREN KIM :1985 Visit Time:11/05/2019 Your Visit Summary Your Care Team Primary Provider: CARLITOS BLOUNT MD-EMR Secondary Provider: Your Diagnosis Acute UTI Pain in back Medical Information You may obtain a copy [...] do next Follow-Up Appointments Follow Up with NICOLE ERNST When Within 2 to 3 days Comments Please take medications as written. Followup with your urologist this week Where: [address] [facility] [place] [address] [facility] (1) Allergies most abx Keflex Toradol amoxicillin-clavulanate (SOA, SOA) cefaclor ciprofloxacin (HIVES, HIVES) codeine doxycycline (RASH/SOA, RASH/SOA) gatifloxacin midazolam nitrofurantoin (RASH/SOA, RASH/SOA) ondansetron sulfa drugs Immunizations This Visit No Immunizations Found Medications What How Much When Instructions Next Dose New cefdinir (cefdinir 300 mg oral capsule) 1 Capsule(s) Oral Two Times A Day Duration: 7 Day(s) Printed Prescription Changed promethazine (promethazine 25 mg oral tablet) 1 Tablet(s) Oral Every 6 Hours as needed for as needed for nausea/vomiting Printed Prescription Changed promethazine (promethazine 25 mg oral tablet) 1 Tablet(s) Oral Every 6 Hours Duration: 5 Day(s) Changed promethazine (promethazine 25 mg oral tablet) 1 Tablet(s) Oral Every 6 Hours as needed for for nausea/vomiting The home medications listed are only as [...] This Visit (last charted value for your 11/05/2019 visit) Urinalysis 11/05/2019 4:03 AM Ur RBC: 5-10 /HPF Urine Nitrite: Negative Urine Leukocyte Esterase: Moderate Urine Appearance: Cloudy Urine Glucose Dipstick: Negative Ur Renal Epithelial Cells: 0-2 /HPF Urine Blood Dipstick: Moderate Urine Type: U CleanCatch Urine Urobilinogen Dipstick: 1.0 EU/dL Ur Calcium Oxalate Crystals: 1+ Urine Protein Dipstick: 30 Ur Amorph: Trace Ur Bacteria: 4+ Ur WBC Clumps: Present Ur Squamous Epithelial Cells: 5-10 /HPF Urine Color: Yellow Ur Transitional Epi Cells: 2-5 Ur WBC: TNTC /HPF Urine Ketones Dipstick: 15 Ur Mucous: 1+ Urine pH Dipstick: 6.0 -- Normal range between ( 6.0 and 8.0 ) Ur Hyaline Casts: 2-5 /LPF Urine Bilirubin Dipstick: Negative Urine Specific [place]: 1.020 -- Normal range between ( 1.005 and 1.030 ) Education Materials Urinary Tract Infection, Adult A urinary tract [...] treat less common causes of UTI. ??? Otyt-afx-tewdtuo medicines to treat pain. ??? Drinking enough water to stay hydrated. Follow these instructions at home: ??? Take [id number] and prescription medicines only as told by [...] 06/09/2006 Document Revised: 02/22/2018 Document Reviewed: 07/20/2016 [employer] Interactive Patient Education ?? 2019 [employer] Emergency Awareness and Preventative Care STROKE is [...] Assistance with quitting is available by contacting 5-633-NRCJNOW. This is a free resource providing counseling, [...] CPR? There are two easy steps: Call 9-1-1 if you see a teen or adult [...] including: emergency, radiology, or pathology physicians. Patient Name:OREN KIM Eliz Mishra have received this information and was given the opportunity to ask questions. Patient/Ad Copy Writer Name: Patient/Ad Copy Writer Signature: Relationship to Patient: Clinician/Hospital Ad Copy Writer Signature: Please Provide a Telephone Number Where You Can Be Reached: Is it Permissible To Leave a Message? Date: Electronically signed by Eron, [facility] Conversion Sales Representatives Cerner at 12/29/2022 4:12 PM CDT documented in this encounter Plan of Treatment Not on file documented as of this encounter Visit Diagnoses Not on filedocumented in this encounter
--- OUTSIDE RECORDS SUMMARY | 2025-06-07 16:15 | XMS_ITS | Encounter Summary ---
Author Organization [employer] ([place], [place], [place], [place]) Address [address] [place] [address] Care Team Providers Care Batch Blender Name Role Phone Unavailable Primary Care Provider Unavailabl e Encounter Details Date Type Department Care Team (Late st Contact Info) Description 10/15/2019 Transcribed Document [facility] [place] [address] [place] [address] ProviderJulio MD [address] [place] [address] 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 Tobacco Use Types Packs/Day Years [...] - Julio ProviderMD - 10/15/2019 10:16 PM PRODUCTION SPECIALIST ED Assessment Entered On: 10/15/2019 23:14 EST Performed On: 10/15/2019 23:13 EST by Leonel Shetty, loan closer Quick Look Assessment Level of Consciousness : Alert Orientation : Oriented x 4 Skin Temperature : Warm Skin Description : Dry Leonel Shetty Rn - 10/15/2019 23:13 EST ED General-Functional Assess Preferred Communication Mode : Verbal Communication Barrier : None Primary Language : Frisian Any Spiritual/Cultural Needs or Requests : No Currently in Unsafe Situation : No Leonel Shetty Rn - 10/15/2019 23:13 EST Social Habits Smoking Status : Smoker, current status unknown Smokeless Tobacco Status : Smokeless tobacco user within last 30 days Desires Tobacco Cessation Medication : No Reason for No Tobacco Cessation Medication : ED/procedural patient only Desires Tobacco Cessation Calc : 2 Leonel Shetty Rn - 10/15/2019 23:13 EST 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 (As Of: 10/15/2019 23:14:39 EST) Tobacco: Use in Last 12 Months: Snuff/Dip. Packs/Tins Daily: 0.5. (Last Updated: 02/24/2015 00:10:45 EDT by GURINDER ABARCA, RN) Alcohol: Alcohol Use History No. (Last Updated: 02/24/2015 00:10:54 EDT by GURINDER ABARCA, RN) Substance Abuse: Use in Last 12 Months: No. (Last Updated: 02/24/2015 00:11:03 EDT by GURINDER ABACRA, RN) EENT Assessment EENT Assessment WDL : WD with exceptions Throat : Sore throat Leonel Shetty Rn - 10/15/2019 23:13 EST Respiratory Respiratory Assessment WDL : [facility] Leonel Shetty Rn - 10/15/2019 23:13 EST Gastrointestinal ED Gastrointestinal Assessment WDL : [facility] Leonel Shetty Rn - 10/15/2019 23:13 EST Genitourinary Assessment, ED Genitourinary Assessment WDL : WD with exceptions Genitourinary Symptoms : Dysuria Leonel Shetty Rn - 10/15/2019 23:13 EST Musculoskeletal Musculoskeletal Assessment WDL : Leonel Ascencio Rn - 10/15/2019 23:13 EST Integumentary Assessment Integumentary Assessment WDL : Leonel Ascencio Rn - 10/15/2019 23:13 EST Neurologic ASMT, ED Neurologic Assessment WDL : Leonel Ascencio Rn - 10/15/2019 23:13 EST documented in this encounter Plan of Treatment Not on file documented as of this encounter Visit Diagnoses Not on filedocumented in this encounter
--- NOTE | 2025-06-07 16:16 | CT_ITS ---
PROCEDURE INFORMATION: Exam: CT Abdomen And Pelvis With Contrast Exam date and time: 06/07/2025 5:50 PM Age: 39 years old Clinical indication: Abdominal pain; Flank; Right; Additional info: Right flank pain TECHNIQUE: Imaging protocol: Computed tomography of the abdomen and pelvis with contrast. Radiation optimization: All CT scans at this facility use at least one of these dose optimization techniques: automated exposure control; mA and/or kV adjustment per patient size (includes targeted exams where dose is matched to clinical indication); or iterative reconstruction. Contrast material: ISOVUE; Contrast volume: 75 ml; Contrast route: IV; COMPARISON: CT ABDOMEN PELVIS W CON 01/12/2025 8:58 AM FINDINGS: Liver: Ill-defined 1.2 cm hypoattenuating lesion in the right hepatic lobe is not significantly changed from prior exams and most likely a benign hemangioma. No new liver lesions. Gallbladder and biliary ducts: Status post cholecystectomy. No biliary ductal dilatation. Pancreas: Unremarkable. Spleen: Unremarkable. Adrenal glands: Unremarkable. Kidneys and ureters: Normal symmetric renal nephrograms. Two small non-obstructing stones in the left kidney. No right renal stones. Mild left renal pelviectasis, decreased when compared with most recent CT performed on 01/12/2025. Multifocal cortical renal scarring in the bilateral kidneys, also unchanged. No hydronephrosis. Stomach and bowel: Subtle fat stranding surrounds the entire stomach, which may reflect mild gastritis. Colonic diverticulosis without evidence of diverticulitis, unchanged. Appendix: Appendix is visualized and is normal. Intraperitoneal space: No free fluid. No pneumoperitoneum. Vasculature: Unremarkable. Lymph nodes: Multiple conspicuous and are mildly enlarged inguinal lymph nodes again noted, not significantly changed from prior exams and most likely reactive. No pathologic lymphadenopathy in the abdomen or pelvis. Urinary bladder: Bladder is decompressed, limiting evaluation. Reproductive: Status post hysterectomy. No adnexal mass. Bones/joints: No acute osseous abnormality. Soft tissues: Small fat-containing umbilical hernia, unchanged. IMPRESSION: 1. Subtle fat stranding surrounds the entire stomach, which may reflect mild gastritis. No other evidence of acute intra-abdominal pathology. 2. Two small non-obstructing stones in the left kidney. 3. Additional chronic and/or non-acute ancillary findings are detailed above.
--- OUTSIDE RECORDS SUMMARY | 2025-06-07 16:16 | XMS_ITS | Clinical Summary ---
Author Organization [facility] Address [address] [place] [address] Phone Care Team Providers Care Telecommunications Cable Jointer Name Role Phone Unavailable Unavailable Conditions or Problems No information available. Medications No information available. Medications Administered No information available. Allergies, Adverse Reactions, Alerts No information available. Results No information available. Plan of Care No information available. Procedures No information available. Vital Signs No information available. Immunizations No information available. Advance Directives No information available.
--- OUTSIDE RECORDS SUMMARY | 2025-06-07 16:16 | XMS_ITS | Encounter Summary ---
Author Organization [employer] ([place], [place], [place], [place]) Address [address] [place] [address] Care Team Providers Care Dynamometer Repairer Name Role Phone Unavailable Primary Care Provider Unavailabl e Encounter Details Date Type Department Care Team (Late st Contact Info) Description 11/05/2019 Transcribed Document [facility] [place] [address] [place] [address] ProviderJulio MD [address] [place] [address] 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 Tobacco Use Types Packs/Day Years [...] - Julio ProviderMD - 11/05/2019 3:53 AM CUSTOMER ENGINEERING SPECIALIST ED Triage Entered On: 11/05/2019 4:08 EST Performed On: 11/05/2019 4:03 EST by Candelaria Albert RN ED Triage Across the Room Chief Complaint : Pt c/o back pain. Denies dysuria. Hx of kidney stones. Currently on levaquin for UTI. Candelaria Albert RN - 11/05/2019 4:12 EST Triage Date/Time : 11/05/2019 4:03 EST Candelaria Albert RN - 11/05/2019 4:03 EST DCP GENERIC CODE Tracking Group : [facility] ED [place] Tracking Acuity : 4 - Non - Urgent Candelaria Albert RN - 11/05/2019 4:03 EST Mode of Arrival : Ambulatory Transported to ED by : Walk in To Room Via : Ambulate Accompanied By : Unaccompanied ED Vital Signs : Document Height & Weight : Document ED Allergies : Document ED Infection Control : No ED Reason for Visit : Document Tetanus Immunization : Less than 5 years Candelaria Albert RN - 11/05/2019 4:03 EST Infectious Disease History Physical contact outside [place] in the last 30 days : No Infectious Disease History : Chicken pox/Shingles, Influenza Tuberculosis Symptoms : None Candelaria Albert RN - 11/05/2019 4:03 EST Vital Signs ED Temperature Source : Oral Temperature Mode : Fahrenheit Temperature, Fahrenheit : 98.2 Deg F ED Pain : Yes Clinical Temperature, C : 36.8 Deg C Oxygen Therapy Mode : Room air Peripheral Pulse Rate : 98 bpm Respiratory Rate : 18 Breaths/Min Systolic Blood Pressure : 161 mmHg (HI) Diastolic Blood Pressure : 91 mmHg (HI) Oxygen Saturation : 100 % Candelaria Albert RN - 11/05/2019 4:03 EST Allergy (As Of: 11/05/2019 04:08:20 EST) Allergies (Active) most abx Estimated Onset Date: Unspecified ; Created By: MANPREET Magdaleno; Reaction Status: Active ; Category: Drug ; Substance: most abx ; Type: Allergy ; Updated By: MANPREET Magdaleno; Reviewed Date: 11/05/2019 4:07 EST amoxicillin-clavulanate Estimated Onset Date: Unspecified ; Reactions: SOA, SOA ; Created By: MANPREET Magdaleno; Reaction Status: Active ; Category: Drug ; Substance: amoxicillin-clavulanate ; Type: Allergy ; Updated By: MANPREET Magdaleno; Reviewed Date: 11/05/2019 4:07 EST cefaclor Estimated Onset Date: Unspecified ; Created By: MANPREET Magdaleno; Reaction Status: Active ; Substance: cefaclor ; Updated By: MANPREET Magdaleno; Reviewed Date: 11/05/2019 4:07 EST ciprofloxacin Estimated Onset Date: Unspecified ; Reactions: HIVES, HIVES ; Created By: MANPREET Magdaleno; Reaction Status: Active ; Substance: ciprofloxacin ; Updated By: MANPREET Magdaleno; Reviewed Date: 11/05/2019 4:07 EST codeine Estimated Onset Date: Unspecified ; Created By: LORE JARQUIN RN; Reaction Status: Active ; Category: Drug ; Substance: codeine ; Type: Allergy ; Updated By: LORE JARQUIN RN; Reviewed Date: 11/05/2019 4:07 EST doxycycline Estimated Onset Date: Unspecified ; Reactions: RASH/SOA, RASH/SOA ; Created By: MANPREET Magdaleno; Reaction Status: Active ; Category: Drug ; Substance: doxycycline ; Type: Allergy ; Updated By: MANPREET Magdaleno; Reviewed Date: 11/05/2019 4:07 EST gatifloxacin Estimated Onset Date: Unspecified ; Created By: MANPREET Magdaleno; Reaction Status: Active ; Substance: gatifloxacin ; Updated By: MANPREET Magdaleno; Reviewed Date: 11/05/2019 4:07 EST Keflex Estimated Onset Date: Unspecified ; Created By: Cathi Green RN; Reaction Status: Active ; Category: Drug ; Substance: Keflex ; Type: Allergy ; Updated By: Cathi Green RN; Reviewed Date: 11/05/2019 4:07 EST midazolam Estimated Onset Date: Unspecified ; Created By: MANPREET Magdaleno; Reaction Status: Active ; Category: Drug ; Substance: midazolam ; Type: Allergy ; Updated By: MANPREET Magdaleno; Reviewed Date: 11/05/2019 4:07 EST nitrofurantoin Estimated Onset Date: Unspecified ; Reactions: RASH/SOA, RASH/SOA ; Created By: MANPREET Magdaleno; Reaction Status: Active ; Category: Drug ; Substance: nitrofurantoin ; Type: Allergy ; Updated By: MANPREET Magdaleno; Reviewed Date: 11/05/2019 4:07 EST ondansetron Estimated Onset Date: Unspecified ; Created By: MANPREET Magdaleno; Reaction Status: Active ; Category: Drug ; Substance: ondansetron ; Type: Allergy ; Updated By: MANPREET Magdaleno; Reviewed Date: 11/05/2019 4:07 EST sulfa drugs Estimated Onset Date: Unspecified ; Created By: Contributor_systemMANPREET; Reaction Status: Active ; Substance: sulfa drugs ; Updated By: Contributor_systemMANPREET; Reviewed Date: 11/05/2019 4:07 EST Toradol Estimated Onset Date: Unspecified ; Created By: Cathi Green RN; Reaction Status: Active ; Category: Drug ; Substance: Toradol ; Type: Allergy ; Updated By: Cathi Green RN; Reviewed Date: 11/05/2019 4:07 EST Diagnosis Control ED (As Of: 11/05/2019 04:08:20 EST) Problems(Active) Kidney stones (SNOMED CT :707493170 ) Name of Problem: Kidney stones ; Recorder: MANFRED CAI PA; Confirmation: Confirmed ; Classification: Medical ; Code: [id number] ; Contributor System: Jumpzter ; Last Updated: 10/24/2015 13:26 EST ; Life Cycle Date: 10/24/2015 ; Life Cycle Status: Active ; Responsible Provider: MANFRED CAI PA; Vocabulary: SNOMED CT PTSD (post-traumatic stress disorder) (SNOMED CT :45271460 ) Name of Problem: PTSD (post-traumatic stress disorder) ; Recorder: MANFRED CAI PA; Confirmation: Confirmed ; Classification: Medical ; Code: [id number] ; Contributor System: Jumpzter ; Last Updated: 10/24/2015 13:26 EST ; Life Cycle Date: 10/24/2015 ; Life Cycle Status: Active ; Responsible Provider: MANFRED CAI PA; Vocabulary: SNOMED CT Diagnoses(Active) Pain in back Date: 11/05/2019 ; Diagnosis Type: Reason For Visit ; Confirmation: Complaint of ; Clinical Dx: Pain in back ; Classification: Medical ; Clinical Service: Emergency medicine ; Code: PNED ; Probability: 0 ; Diagnosis Code: [id number] ED Height and Weight Height Source : Stated Height Entry Format : [place] Height, Feet : 5 ft(Converted to: 152 cm, 60 Inch) Height, Inches : 3 Inch(Converted to: 0 ft 3 Inch, 7.62 cm) Clinical Height : 160.02 cm Weight Source, ED : Critical estimated dosing weight Weight Entry Format : [place] Weight, Pounds : 250 lb Clinical Dosing Weight : 113.64 kg Body Surface Area (BSA) : 2.13 m2 Body Mass Index : 44.4 kg/m2 (>HHI) [place] Body Weight (IBW) : 52.02 kg Candelaria Albert RN - 11/05/2019 4:03 EST Pain Assessment Pain Assessment : Initial assessment Pain Scale Used : 0-10 Scale Location : Back Candelaria Albert RN - 11/05/2019 4:03 EST Pain Scale Intensity : 8 Candelaria Albert RN - 11/05/2019 4:03 EST Image 4 - Images currently included in the form version of this document have not been included in the text rendition version of the form. ED Influenza/Pneumoccocal Vaccine Influenza Immunization, Current Season : Yes Previous Vaccines from Immunization Schedule : No qualifying data available. Candelaria Albert RN - 11/05/2019 4:03 EST Electronically signed by Rachel Littlejohn Conversion Deep Submergence Vehicle Crewmember Cerner at 12/29/2022 4:02 PM CDT documented in this encounter Plan of Treatment Not on file documented as of this encounter Visit Diagnoses Not on filedocumented in this encounter
--- OUTSIDE RECORDS SUMMARY | 2025-06-07 16:16 | XMS_ITS | Encounter Summary ---
Author Organization [employer] ([place], [place], [place], [place]) Address [address] [place] [address] Care Team Providers Care Rocket Motor Mechanic Name Role Phone Unavailable Primary Care Provider Unavailabl e Encounter Details Date Type Department Care Team (Late st Contact Info) Description 11/16/2019 Transcribed Document [facility] [address] [place] [address] Mary Ann Chadwick MD [facility] [place] [address] 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 Tobacco Use Types Packs/Day Years Used Date Smoking Tobacco: Never Assessed Comments Unknown Sex and Gender Information Value Date Recorded Sex Assigned at Female 03/12/2022 2:43 PM CDT Legal Sex Female 5:44 PM CDT Gender Identity Female 03/12/2022 2:43 PM CDT Sexual Orientation Not on file documented as of this encounter Miscellaneous Notes * Cerner Conversion Note - Mary Ann Chadwikc MD - 11/16/2019 6:00 AM EST documented in this encounter Plan of Treatment Not on file documented as of this encounter Visit Diagnoses Not on filedocumented in this encounter
--- OUTSIDE RECORDS SUMMARY | 2025-06-07 16:16 | XMS_ITS | Encounter Summary ---
Author Organization [employer] ([place], [place], [place], [place]) Address [address] [place] [address] Care Team Providers Care Photographic Double Name Role Phone Unavailable Primary Care Provider Unavailabl e Encounter Details Date Type Department Care Team (Late st Contact Info) Description 11/16/2019 Transcribed Document [facility] [place] [facility] [place] [address] ProviderJulio MD [address] [place], [place] [id number] 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 Tobacco Use Types Packs/Day Years Used Date Smoking Tobacco: Never Assessed Comments Unknown Sex and Gender Information Value Date Recorded Sex Assigned at Female 03/12/2022 2:43 PM CDT Legal Sex Female 5:44 PM CDT Gender Identity Female 03/12/2022 2:43 PM CDT Sexual Orientation Not on file documented as of this encounter Miscellaneous Notes * Cerner Conversion Note - Julio ProviderMD - 11/16/2019 3:59 AM NECK BAND OPERATOR ED Triage Entered On: 11/16/2019 4:17 EST Performed On: 11/16/2019 4:08 EST by Farzaneh Rico, BIOLOGICAL SCIENCE TECHNICIAN FISH Triage Across the Room Chief Complaint : Pt c/o left lower abd pain started a day ago and now has since 10pm left flank pain with increased frequency in urination and nausea. Denies vomiting, fever. Triage Date/Time : 11/16/2019 4:08 EST Farzaneh Rico RN - 11/16/2019 4:08 EST DCP GENERIC CODE Tracking Acuity : 3 - Urgent Tracking Group : [facility] ED [place] Farzaneh Rico RN - 11/16/2019 4:08 EST Mode of Arrival : Ambulatory Transported to ED by : Walk in To Room Via : Ambulate Accompanied By : Unaccompanied ED Vital Signs : Document Height & Weight : Document ED Allergies : Document ED Reason for Visit : Document Status : Hysterectomy Tetanus Immunization : Less than 5 years Farzaneh Rico RN - 11/16/2019 4:08 EST Infectious Disease History Physical contact outside [place] in the last 30 days : No Infectious Disease History : Chicken pox/Shingles, Influenza Tuberculosis Symptoms : None Farzaneh Rico RN - 11/16/2019 4:08 EST Vital Signs ED Temperature Source : Oral Temperature Mode : Fahrenheit Temperature, Fahrenheit : 98.3 Deg F ED Pain : Yes Clinical Temperature, C : 36.8 Deg C Oxygen Therapy Mode : Room air Peripheral Pulse Rate : 95 bpm Respiratory Rate : 18 Breaths/Min Blood Pressure Location : Arm, right upper Blood Pressure Source : Non-Invasive BP Device Systolic Blood Pressure : 168 mmHg (HI) Diastolic Blood Pressure : 104 mmHg (HI) Oxygen Saturation : 97 % Farzaneh Rico RN - 11/16/2019 4:08 EST Allergy (As Of: 11/16/2019 04:17:25 EST) Allergies (Active) most abx Estimated Onset Date: Unspecified ; Created By: MANPREET Magdaleno; Reaction Status: Active ; Category: Drug ; Substance: most abx ; Type: Allergy ; Updated By: MANPREET Magdaleno; Reviewed Date: 11/16/2019 4:16 EST amoxicillin-clavulanate Estimated Onset Date: Unspecified ; Reactions: SOA, SOA ; Created By: MANPREET Magdaleno; Reaction Status: Active ; Category: Drug ; Substance: amoxicillin-clavulanate ; Type: Allergy ; Updated By: MANPREET Magdaleno; Reviewed Date: 11/16/2019 4:16 EST cefaclor Estimated Onset Date: Unspecified ; Created By: MANPREET Magdaleno; Reaction Status: Active ; Substance: cefaclor ; Updated By: MANPREET Magdaleno; Reviewed Date: 11/16/2019 4:16 EST ciprofloxacin Estimated Onset Date: Unspecified ; Reactions: HIVES, HIVES ; Created By: MANPREET Magdaleno; Reaction Status: Active ; Substance: ciprofloxacin ; Updated By: MANPREET Magdaleno; Reviewed Date: 11/16/2019 4:16 EST codeine Estimated Onset Date: Unspecified ; Created By: LORE JARQUIN RN; Reaction Status: Active ; Category: Drug ; Substance: codeine ; Type: Allergy ; Updated By: LOER JARQUIN RN; Reviewed Date: 11/16/2019 4:16 EST doxycycline Estimated Onset Date: Unspecified ; Reactions: RASH/SOA, RASH/SOA ; Created By: MANPREET Magdaleno; Reaction Status: Active ; Category: Drug ; Substance: doxycycline ; Type: Allergy ; Updated By: MANPREET Magdaleno; Reviewed Date: 11/16/2019 4:16 EST gatifloxacin Estimated Onset Date: Unspecified ; Created By: MANPREET Magdaleno; Reaction Status: Active ; Substance: gatifloxacin ; Updated By: MANPREET Magdaleno; Reviewed Date: 11/16/2019 4:16 EST Keflex Estimated Onset Date: Unspecified ; Created By: Cathi Green RN; Reaction Status: Active ; Category: Drug ; Substance: Keflex ; Type: Allergy ; Updated By: Cathi Green RN; Reviewed Date: 11/16/2019 4:16 EST midazolam Estimated Onset Date: Unspecified ; Created By: MANPREET Magdaleno; Reaction Status: Active ; Category: Drug ; Substance: midazolam ; Type: Allergy ; Updated By: MANPREET Magdaleno; Reviewed Date: 11/16/2019 4:16 EST nitrofurantoin Estimated Onset Date: Unspecified ; Reactions: RASH/SOA, RASH/SOA ; Created By: MANPREET Magdaleno; Reaction Status: Active ; Category: Drug ; Substance: nitrofurantoin ; Type: Allergy ; Updated By: MANPREET Magdaleno; Reviewed Date: 11/16/2019 4:16 EST ondansetron Estimated Onset Date: Unspecified ; Created By: MANPREET Magdaleno; Reaction Status: Active ; Category: Drug ; Substance: ondansetron ; Type: Allergy ; Updated By: MANPREET Magdaleno; Reviewed Date: 11/16/2019 4:16 EST sulfa drugs Estimated Onset Date: Unspecified ; Created By: Contributor_systemMANPREET; Reaction Status: Active ; Substance: sulfa drugs ; Updated By: Contributor_systemMANPREET; Reviewed Date: 11/16/2019 4:16 EST Toradol Estimated Onset Date: Unspecified ; Created By: Cathi Green RN; Reaction Status: Active ; Category: Drug ; Substance: Toradol ; Type: Allergy ; Updated By: Cathi Green RN; Reviewed Date: 11/16/2019 4:16 EST Diagnosis Control ED (As Of: 11/16/2019 04:17:25 EST) Problems(Active) Kidney stones (SNOMED CT :368379324 ) Name of Problem: Kidney stones ; Recorder: MANFRED CAI PA; Confirmation: Confirmed ; Classification: Medical ; Code: [id number] ; Contributor System: [email or web address] ; Last Updated: 10/24/2015 13:26 EST ; Life Cycle Date: 10/24/2015 ; Life Cycle Status: Active ; Responsible Provider: MANFRED CAI PA; Vocabulary: SNOMED CT PTSD (post-traumatic stress disorder) (SNOMED CT :84393185 ) Name of Problem: PTSD (post-traumatic stress disorder) ; Recorder: MANFRED CAI PA; Confirmation: Confirmed ; Classification: Medical ; Code: [id number] ; Contributor System: [email or web address] ; Last Updated: 10/24/2015 13:26 EST ; Life Cycle Date: 10/24/2015 ; Life Cycle Status: Active ; Responsible Provider: MANFRED CAI PA; Vocabulary: SNOMED CT Diagnoses(Active) Flank pain Date: 11/16/2019 ; Diagnosis Type: Reason For Visit ; Confirmation: Complaint of ; Clinical Dx: Flank pain ; Classification: Medical ; Clinical Service: Emergency medicine ; Code: PNED ; Probability: 0 ; Diagnosis Code: [id number] ED Height and Weight Height Source : Stated Height Entry Format : [place] Height, Feet : 5 ft(Converted to: 152 cm, 60 Inch) Height, Inches : 2 Inch(Converted to: 0 ft 2 Inch, 5.08 cm) Clinical Height : 157.48 cm Weight Source, ED : Critical estimated dosing weight Weight Entry Format : [place] Weight, Pounds : 230 lb Clinical Dosing Weight : 104.55 kg Body Surface Area (BSA) : 2.03 m2 Body Mass Index : 42.2 kg/m2 (>HHI) [place] Body Weight (IBW) : 49.73 kg Farzaneh Rico RN - 11/16/2019 4:08 EST Pain Assessment Pain Assessment : Initial assessment Pain Scale Used : 0-10 Scale Location : Abdominal Onset : Constant Quality : Aching, Sharp Pain Radiation : Yes Pain Radiation Location : Flank, left Farzaneh Rico RN - 11/16/2019 4:08 EST Pain Scale Intensity : 9 Farzaneh Rico RN - 11/16/2019 4:08 EST Image 4 - Images currently included in the form version of this document have not been included in the text rendition version of the form. ED Influenza/Pneumoccocal Vaccine Influenza Immunization, Current Season : Yes Pneumonia Immunization Received : No Previous Vaccines from Immunization Schedule : No qualifying data available. Farzaneh Rico RN - 11/16/2019 4:08 EST Electronically signed by Rachel Littlejohn Conversion Client Account Representative Cerner at 12/29/2022 4:10 PM CDT documented in this encounter Plan of Treatment Not on file documented as of this encounter Visit Diagnoses Not on filedocumented in this encounter
--- OUTSIDE RECORDS SUMMARY | 2025-06-07 16:16 | XMS_ITS | Encounter Summary ---
Author Organization [employer] ([place], [place], [place], [place]) Address [address] [place] [address] Care Team Providers Care Net Washer Name Role Phone Unavailable Primary Care Provider Unavailabl e Encounter Details Date Type Department Care Team (Late st Contact Info) Description 11/16/2019 Transcribed Document [facility] [place] [address] [place] [address] ProviderJulio MD [address] [place], [place] [address] 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 Tobacco Use Types Packs/Day Years [...] Conversion Note - Julio ProviderMD - 11/16/2019 5:05 AM CONTINUOUS MINING MACHINE OPERATOR ED Discharge Vital Signs Entered On: 11/16/2019 5:05 EST Performed On: 11/16/2019 5:05 EST by MICHELLE ORTIZ RN ED Discharge Vital Signs Peripheral Pulse Rate : 90 bpm Systolic Blood Pressure : 160 mmHg (HI) Diastolic Blood Pressure : 96 mmHg (HI) Oxygen Saturation : 97 % MICHELLE ORTIZ RN - 11/16/2019 5:05 EST Electronically signed by Eron [facility] Conversion Digital Producer Cerner at 12/29/2022 4:08 PM CDT documented in this encounter Plan of Treatment Not on file documented as of this encounter Visit Diagnoses Not on filedocumented in this encounter
--- OUTSIDE RECORDS SUMMARY | 2025-06-07 16:16 | XMS_ITS | Encounter Summary ---
Author Organization [employer] ([place], [place], [place], [place]) Address [address] [place] [address] Care Team Providers Care Parking Enforcement Manager Name Role Phone Unavailable Primary Care Provider Unavailabl e Encounter Details Date Type Department Care Team (Late st Contact Info) Description 11/16/2019 Transcribed Document [facility] [place] [address] [place] [address] ProviderJulio MD [address] [place] [address] 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 Tobacco Use Types [...] Conversion Note - Julio Van MD - 11/16/2019 5:01 AM ASSOCIATE DESIGNER J [facility] [address] [place] [address] OREN KIM :1985 Visit Time:11/16/2019 Your Visit Summary Your Care Team Primary Provider: CARLINE WATTS MD Secondary Provider: Your Diagnosis Flank pain Left flank pain Medical Information You may obtain a copy [...] Appointments Follow Up with Follow up with primary care provider When Within 2 to 4 days Follow Up with Follow up with specialist When Within 2 to 4 weeks Comments [place] [facility] as scheduled in December 2019, or sooner if possible, for further evaluation and treatment of your recurrent urinary tract infections Follow Up with NICOLE ERNST When Within 2 to 3 days Where: [address] [address] [facility] [address] [employer] (1) Allergies most abx Keflex Toradol amoxicillin-clavulanate (SOA, SOA) cefaclor ciprofloxacin (HIVES, HIVES) codeine doxycycline (RASH/SOA, RASH/SOA) gatifloxacin midazolam nitrofurantoin (RASH/SOA, RASH/SOA) ondansetron sulfa drugs Immunizations This Visit No Immunizations Found Medications What How Much When Instructions Next Dose New cefdinir (cefdinir 300 mg oral capsule) 1 Capsule(s) Oral Every 12 hours Duration: 14 Day(s) Printed Prescription New nystatin topical (nystatin 100,000 units/ g topical powder) 1 Application(s) Topical Two Times A Day apply to affected areas until rash resolves Printed Prescription New promethazine (promethazine 25 mg oral tablet) 1 Tablet(s) Oral Every 6 Hours as needed for for nausea/vomiting Printed Prescription The home medications listed are only as [...] This Visit (last charted value for your 11/16/2019 visit) Urinalysis 11/16/2019 4:24 AM Ur RBC: 2-5 /HPF Urine Nitrite: Negative Urine Leukocyte Esterase: Small Ur Epithelial Cells: 2-5 /HPF Urine Appearance: Hazy Urine Glucose Dipstick: Negative Urine Blood Dipstick: Trace-lysed Urine Type: U CleanCatch Urine Urobilinogen Dipstick: 0.2 EU/dL Ur Calcium Oxalate Crystals: Trace Urine Protein Dipstick: Negative Ur Bacteria: 3+ Ur WBC Clumps: Present Ur Squamous Epithelial Cells: 20-50 /HPF Urine Color: Yellow Ur WBC: 50-100 /HPF Urine Ketones Dipstick: Negative Urine pH Dipstick: 6.5 -- Normal range between ( 6.0 and 8.0 ) Urine Bilirubin Dipstick: Negative Urine Specific Banner: >=1.030 -- Normal range between ( 1.005 and [...] treat less common causes of UTI. ??? Kgxn-cps-bagjxlb medicines to treat pain. ??? Drinking enough water to stay hydrated. Follow these instructions at home: ??? Take rspc-vve-zdcrkit and prescription medicines only as told by [...] 06/09/2006 Document Revised: 02/22/2018 Document Reviewed: 07/20/2016 [employer] Patient Education ?? 2019 [employer] Flank Pain, Adult Flank pain is pain that is located on the side of the body between the upper abdomen and the back. This area is called the flank. The pain may occur over a short period of time (acute), or it may be long-term or recurring (chronic). It may be mild or severe. Flank pain can be caused by many things, including: ??? Muscle soreness or injury. ??? Kidney stones or kidney disease. ??? Stress. ??? A disease of the spine (vertebral disk disease). ??? A lung infection (pneumonia). ??? Fluid around the lungs (pulmonary edema). ??? A skin rash caused by the chickenpox virus (shingles). ??? Tumors that affect the back of the abdomen. ??? Gallbladder disease. Follow these instructions at home: ??? Drink enough fluid to keep your urine clear or pale yellow. ??? Rest as told by your health care provider. ??? Take quet-dqw-vkynjpk and prescription medicines only as told by your health care provider. ??? Keep a journal to track what has caused your flank pain and what has made it feel better. ??? Keep all follow-up visits as told by your health care provider. This is important. Contact a health care provider if: ??? Your pain is not controlled with medicine. ??? You have new symptoms. ??? Your pain gets worse. ??? You have a fever. ??? Your symptoms last longer than 2???3 days. ??? You have trouble urinating or you are urinating very frequently. Get help right away if: ??? You have trouble breathing or you are short of breath. ??? Your abdomen hurts or it is swollen or red. ??? You have nausea or vomiting. ??? You feel faint or you pass out. ??? You have blood in your urine. Summary ??? Flank pain is pain that is located on the side of the body between the upper abdomen and the back. ??? The pain may occur over a short period of time (acute), or it may be long-term or recurring (chronic). It may be mild or severe. ??? Flank pain can be caused by many things. ??? Contact your health care provider if your symptoms get worse or they last longer than 2???3 days. This information is not intended to replace advice given to you by your health care provider. Make sure you discuss any questions you have with your health care provider. Document Released: 10/21/2006 Document Revised: 11/12/2017 Document Reviewed: 11/12/2017 [employer] Interactive Patient Education ?? 2019 [employer] Emergency Awareness and Preventative Care STROKE [...] Assistance with quitting is available by contacting 6-068-UELY-NOW. This is a free resource providing counseling, support, and referral. Or you may contact your personal physician. [employer] Suicide Prevention Lifeline: The National Suicide Prevention [...] of a heart attack, DON???T DELAY. Call 9-1-1 immediately and seek help. If someone collapses, [...] radiology, or pathology physicians. Patient Name:OREN KIM I have received this information and was given the opportunity to ask questions. Patient/[employer] Targeting Supervisor Name: Patient/[employer] Targeting Supervisor Signature: Relationship to Patient: Clinician/Hospital [facility] [employer] Targeting Supervisor Signature: Please Provide a Telephone Number Where You Can Be Reached: Is it Permissible To Leave a Message? Date: Electronically signed by Eron, [facility] Conversion Newspaper Photojournalist Vijay at 12/29/2022 4:12 PM CDT documented in this encounter Plan of Treatment Not on file documented as of this encounter Visit Diagnoses Not on filedocumented in this encounter
--- OUTSIDE RECORDS SUMMARY | 2025-06-07 16:16 | XMS_ITS | Encounter Summary ---
Author Organization [employer] ([place], [place], [place], [place]) Address [address] [place] [address] Care Team Providers Care Packaging Specialist Name Role Phone Unavailable Primary Care Provider Unavailabl e Encounter Details Date Type Department Care Team (Late st Contact Info) Description 11/16/2019 Transcribed Document [facility] [place] [address] [place] [address] ProviderJulio MD [address] [place], [place] [address] 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 Tobacco Use Types Packs/Day Years [...] - Julio ProviderMD - 11/16/2019 3:59 AM SOLID WASTE FACILITY SUPERVISOR ED Assessment Entered On: 11/16/2019 4:26 EST Performed On: 11/16/2019 4:25 EST by Farzaneh Rico, REAL ESTATE ADMINISTRATOR Quick Look Assessment Level of Consciousness : Alert, Awake Affect/Behavior : Appropriate, Calm, Cooperative Orientation : Oriented x 4 Skin Temperature : Warm Skin Description : Dry, [place] Farzaneh Rico, RN - 11/16/2019 4:25 EST ED General-Functional Assess Information Obtained From : Patient Preferred Communication Mode : Verbal Communication Barrier : None Primary Language : Sinhala Any Spiritual/Cultural Needs or Requests : No Currently in Unsafe Situation : No Farzaneh Rico RN - 11/16/2019 4:25 EST Social Habits Smoking Status : Never (less than 100 in lifetime; none in last 30 days) Smokeless Tobacco Status : Never Desires Tobacco Cessation Calc : 0 Farzaneh Rico RN - 11/16/2019 4:25 EST 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 (As Of: 11/16/2019 04:26:29 EST) Tobacco: Use in Last 12 Months: Snuff/Dip. Packs/Tins Daily: 0.5. (Last Updated: 02/24/2015 00:10:45 EDT by GURINDER ABARCA, RN) Alcohol: Alcohol Use History No. (Last Updated: 02/24/2015 00:10:54 EDT by GURINDER ABARCA, EVE) Substance Abuse: Use in Last 12 Months: No. (Last Updated: 02/24/2015 00:11:03 EDT by GURINDER ABARCA, RN) Genitourinary Assessment, ED Genitourinary Assessment WDL : WDL with exceptions Genitourinary Symptoms : Frequency in urination, Other: left flank pain Farzaneh Rico RN - 11/16/2019 4:25 EST documented in this encounter Plan of Treatment Not on file documented as of this encounter Visit Diagnoses Not on filedocumented in this encounter
--- OUTSIDE RECORDS SUMMARY | 2025-06-07 16:16 | XMS_ITS | Encounter Summary ---
Author Organization [employer] ([place], [place], [place], [place]) Address [address] [place] [address] Care Team Providers Care Behaviorist Name Role Phone Unavailable Primary Care Provider Unavailabl e Encounter Details Date Type Department Care Team (Late st Contact Info) Description 11/07/2019 Transcribed Document [facility] [place] [address] [place] [address] ProviderJulio MD [address] [place] [address] 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 Tobacco Use Types Packs/Day Years Used Date Smoking Tobacco: Never Assessed Comments Unknown Sex and Gender Information Value Date Recorded Sex Assigned at Female 03/12/2022 2:43 PM CDT Legal Sex Female 5:44 PM CDT Gender Identity Female 03/12/2022 2:43 PM CDT Sexual Orientation Not on file documented as of this encounter Miscellaneous Notes * Cerner Conversion Note - Historical ProviderMD - 11/07/2019 11:27 AM PLASTIC FIXTURE BUILDER Urine Culture Collected: 11/05/2019 Complete Body site: Specimen Type: U CleanCatch 11/07/2019 08:36 11/07/2019 11:27 (YARA CENTENO PA) Reviewed by Provider, No further action required documented in this encounter Plan of Treatment Not on file documented as of this encounter Visit Diagnoses Not on filedocumented in this encounter
--- OUTSIDE RECORDS SUMMARY | 2025-06-07 16:16 | XMS_ITS | Encounter Summary ---
Author Organization [employer] ([place], [place], [place], [place]) Address [address] [place] [address] Care Team Providers Care Mushroom Grower Name Role Phone Unavailable Primary Care Provider Unavailabl e Encounter Details Date Type Department Care Team (Late st Contact Info) Description 11/16/2019 Transcribed Document [facility] [place] [address] [place] [address] ProviderJulio MD [address] [place] [address] 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 Tobacco Use Types Packs/Day Years [...] - Julio ProviderMD - 11/16/2019 3:59 AM PROPELLER LAYOUT WORKER [place] Suicide Severity Rating Scale (C-SSRS) Entered On: 11/16/2019 4:21 EST Performed On: 11/16/2019 4:21 EST by Farzaneh Rico RN [place] Suicide Severity Rating Scale (C-SSRS) CSSRS Past Month Wish to be : No CSSRS Past Month Suicidal Thoughts : No CSSRS Lifetime Suicide Behavior : No Suicide Severity Rating Score : 0 Suicide Severity Rating : No Additional Care Required at this time Farzaneh Rico RN - 11/16/2019 4:21 EST Electronically signed by Eron [facility] Conversion Cafe Server Cerner at 12/29/2022 4:22 PM CDT documented in this encounter Plan of Treatment Not on file documented as of this encounter Visit Diagnoses Not on filedocumented in this encounter
--- OUTSIDE RECORDS SUMMARY | 2025-06-07 16:16 | XMS_ITS | Clinical Summary ---
Author Organization Healthcare Address [address] [place] [address] Care Team Providers Care Barrel Cutter Name Role Phone Paola Chaney JAZZY Primary Care Provider [phone] Allergies Active Allergy Reactions Criticality Noted Date Comments Amoxicillin-Pot Clavulanate Hives Medium 12/02/2012 Other reaction(s): SOA, SOA Aztreonam Nausea Medium 08/22/2024 Sulfamethoxazole-Trimetho prim Other - please document in the comment field Low 08/22/2024 tremors Bupropion Hives,Rash,Unknown - Patient states they do not know rxn details Medium 12/24/2010 Cefaclor Anaphylaxis High 08/22/2024 Zapata Hives Medium 05/05/2020 Coconut (Cocos Nucifera) Anaphylaxis High 05/05/2020 Codeine Other - please document in the comment field Low 08/22/2024 Bleeding of eyes and nose Doxycycline Other - please document in the comment field Low 08/22/2024 Gatifloxacin Other - please document in the comment field Low 08/22/2024 Haloperidol Other - please document in the comment field Low 03/24/2022 Hydrocodone-Acetaminophen Hives Medium 05/05/2020 Ibuprofen Other - please document in the comment field Low 08/22/2024 Ketorolac Swelling High 08/22/2024 Midazolam Anaphylaxis High 08/22/2024 Mushroom Extract Complex (Obsolete) Anaphylaxis High 05/05/2020 Nitrofurantoin Other - please document in the comment field High 09/04/2009 Patient states it did not work Penicillins Swelling High 08/22/2024 Sulfamethoxazole Other - please document in the comment field Low 08/22/2024 Silver Other - please document in the comment field Medium 11/23/2024 Blisters Tramadol Other - please document in the comment field Low 08/22/2024 Medications acetaminophen (Tylenol) 500 MG tablet Take 2 tablets (1,000 mg) by mouth every 6 (six) hours if needed for pain. 100 tablet 4 Active oxybutynin (Ditropan) 5 MG tablet Take 1 tablet (5 mg) by mouth 3 (three) times a day if needed (for bladder spasms) for up to 30 doses. 30 tablet 4 Active phenazopyridine (Pyridium) 200 MG tablet Take 1 tablet (200 mg) by mouth 3 (three) times a day if needed (Bladder spasms). 15 tablet 4 Active Additional Information Patient not taking.Reported on 11/23/2024 carvedilol (Coreg) 12.5 MG tablet Take 1 tablet (12.5 mg) by mouth nightly. 5 Active Active Problems Problem Noted Date Diagnosed Date HTN (hypertension) 11/29/2024 Ureteral stone with hydronephrosis 08/23/2024 Ureteral stone 08/22/2024 Immunizations Immunization Administration Dates Next Due Influenza, injectable, quadrivalent, preservativ e free 06/11/2018 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 Tobacco Use Types Packs/Day Years Used Date Smoking Tobacco: Never Passive Smoke Exposure: Yes Smokeless Tobacco: Current Snuff Tobacco Cessation:Ready to Q uit: Not Asked; Counseling Given: Not Answered Alcohol Use Standard Drinks/Week Comments Never 0 (1 standard drink = 0.6 oz pur e alcohol) Comments No Sex and Gender Information Value Date Recorded Sex Assigned at Female 08/22/2024 4:52 PM EST Legal Sex Female 8:10 PM EDT Gender Identity Female 08/22/2024 4:52 PM EST Sexual Orientation Not on file Last Filed Vital Signs Vital Sign Reading Time Taken Comments Blood Pressure 170/101 11/29/2024 3:15 PM EDT Pulse 74 11/29/2024 3:15 PM EDT Temperature 36.6 C (97.8 F) 11/29/2024 3:15 PM EDT Respiratory Rate 13 11/29/2024 3:15 PM EDT Oxygen Saturation 97% 11/29/2024 3:15 PM EDT Inhaled Oxygen Concentration - - Weight 112 kg (246 lb) 11/23/2024 3:58 PM EDT Height 157.5 cm (5' 2 ) 08/31/2024 9:18 AM EST Body Mass Index 44.99 08/31/2024 9:18 AM EST Plan of Treatment Health Maintenance Due Date Last Done Comments [facility]-Depression Screening 1985 [facility]-Infant/Child/Adol SDOH Screenings 1985 [facility]-Varicella Vaccines (1 of 2 - 13+ 2-dose series) 1998 [facility]- SDOH Screenings 2003 [facility]-Adult SDOH Screenings 2003 [facility]-Hepatitis B Vaccines (1 of 3 - 19+ 3-dose series) 2004 HPV Vaccines (1 - 3-dose SCDM series) 2012 [id number] Vaccine (3 - 2024- season) 2025 01/08/2021, 12/11/2020 [facility]-Influenza Vaccine (#1) 05/14/202508/22, 07/06/2021, 07/14/2020, Additional history exists [facility]-DTaP,Tdap,and Td Vaccines (6 - Td or Tdap) 07/13/2033 07/13/2023, 09/13/2009, 09/13/2008, Additional history exists [facility]-Zoster Vaccines (1 of 2) 2035 [facility]-Pneumococcal Vaccine: Pediatrics (0 to 5 Years) and At-Risk Patients (6 to 49 Years) Aged Out 08/26/2015, 08/26/2015 No longer eligibl e based on patient's age to complete this topic [facility]-HIV Screening Completed 08/22/2024, 09/27/2020 [facility]-Hepatitis C Screening Completed 2023, 09/27/2020, 03/27/2019, Additional history exists [facility]-Obesity Intervention Completed 08/22/2024 [facility]-HIB Vaccines Aged Out No longer e ligible based on patient's age to complete this topic [facility]-Hepatitis A Vaccines Aged Out No longer eligible based on patient's age to complete this topic [facility]-IPV Vaccines Aged Out No longer e ligible based on patient's age to complete this topic [facility]-Rotavirus Vaccines Aged Out No lo nger eligible based on patient's age to complete this topic Medical Devices Implanted Type Area Health Insurance Sales Agent Device Identifier Shelf Expiration Date Model / Serial / Lot Mk Mk Left: Leg Screw Screw Left: Ankle Stent Ureteral Double Pigtail Pos 6fr 22cm - [id number] Implanted:Qty: 1 on 11/29/2024 by Virgil Hubbard MD at [facility] Stent Left: U[employer]ter [id number] 07/24/2027 [id number] / / [id number] Description:Used sub ref# [id number] Port Right: Chest Wall Stent Ureteral Double Pigtail Pos 6fr 24cm - [id number] Implanted:Qty: 1 on 08/22/2024 by Luz Valdez MD at [facility] Left: [id number] 06/05/2026 [id number] / / [id number] Procedures Procedure Name Priority Date/Time Associated Diagnosis Comments HEPATITIS C ANTIBODY - ED W/REFLEX TO HCV QUANT PCR STAT 08/22/2024 3:30 PM EST ED HIV 1/2 ANTIBODY/ANTIGEN SCREEN WITH REFLEX TO HIV I/II DIFFERENTIATION STAT 08/22/2024 3:30 PM EST from Last 3 Months or Most Recently Relevant to Health Maintenance Results * ED HIV 1/2 Antibody/Antigen Screen w/Reflex to HIV 1/2 Differentiation (08/22/2024 3:30 PM EST) HIV 1 & 2 Antibody/Antigen Screen Non Reactive Non Reactive 08/22/2024 4:40 PM EST [facility] Comment:Screening for HIV 1 & 2 antibodies, and P24 antigen is NONREACTIVE. No confirmatory testing is required. Blood Venous blood specimen / Unknown Venipuncture / Unknown 08/22/2024 3:30 PM EST 08/22/2024 4:00 PM EST us Zandra Levy MD LAB BLOOD ORDERABLES Final Res ult [facility] [address] [place] [address] * Hepatitis C Antibody - ED (08/22/2024 3:30 PM EST) Hepatitis C Antibody Negative Negative 08/22/2024 4:40 PM EST [facility] Blood Venous blood specimen / Unknown Venipuncture / Unknown 08/22/2024 3:30 PM EST 08/22/2024 4:00 PM EST us Zandra Levy MD LAB BLOOD ORDERABLES Final Res ult Performing Organization Address City/[facility] Co de Phone Number [facility] [address] [place] [address] from Last 3 Months or Most Recently Relevant to Health Maintenance Insurance [facility] [employer] MEDICAID [place] Care Teams Barrel Cutter Relationship Specialty Start Date End Date Paola Chaney APRN [address] [place] [address] [facility] - General 01/24/21
--- OUTSIDE RECORDS SUMMARY | 2025-06-07 16:16 | XMS_ITS | Encounter Summary ---
Author Organization [employer] ([place], [place], [place], [place]) Address [address] [place] [address] Care Team Providers Care Intermediate School Teacher Name Role Phone Unavailable Primary Care Provider Unavailabl e Encounter Details Date Type Department Care Team (Late st Contact Info) Description 11/18/2019 Transcribed Document [facility] [place] [address] [place] [address] ProviderJulio MD [address] [place] [address] 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 Tobacco Use Types Packs/Day Years Used Date Smoking Tobacco: Never Assessed Comments Unknown Sex and Gender Information Value Date Recorded Sex Assigned at Female 03/12/2022 2:43 PM CDT Legal Sex Female 5:44 PM CDT Gender Identity Female 03/12/2022 2:43 PM CDT Sexual Orientation Not on file documented as of this encounter Miscellaneous Notes * Cerner Conversion Note - Historical ProviderMD - 11/18/2019 10:39 PM WELDING MACHINE FEEDER Urine Culture Collected: 11/16/2019 Complete Body site: Specimen Type: U CleanCatch 11/18/2019 09:23 11/18/2019 22:39 (SHERRY HAGEN PA-EMR) Reviewed by Provider, No further action required x1 Electronically signed by Eron [facility] Conversion Ranch [employer] Cerner at 12/29/2022 4:14 PM CDT documented in this encounter Plan of Treatment Not on file documented as of this encounter Visit Diagnoses Not on filedocumented in this encounter
--- OUTSIDE RECORDS SUMMARY | 2025-06-07 16:16 | XMS_ITS | Encounter Summary ---
Author Organization [employer] ([place], [place], [place], [place]) Address [address] [place] [address] Care Team Providers Care Stamp Redemption Clerk Name Role Phone Unavailable Primary Care Provider Unavailabl e Encounter Details Date Type Department Care Team (Late st Contact Info) Description 10/18/2019 Transcribed Document [facility] [place] Family Medicine [address] [place] [address] ProviderJulio MD [address] [place] [address] 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 Tobacco Use Types Packs/Day Years Used Date Smoking Tobacco: Never Assessed Comments Unknown Sex and Gender Information Value Date Recorded Sex Assigned at Female 03/12/2022 2:43 PM CDT Legal Sex Female 5:44 PM CDT Gender Identity Female 03/12/2022 2:43 PM CDT Sexual Orientation Not on file documented as of this encounter Miscellaneous Notes * Cerner Conversion Note - Historical ProviderMD - 10/18/2019 12:40 PM PRODUCTION MACHINE COMPUTER OPERATOR Urine Culture Collected: 10/15/2019 Complete Body site: Specimen Type: U CleanCatch 10/18/2019 09:55 10/18/2019 12:40 (CATIA BARFIELD PA) Reviewed by Provider, No further action required Electronically signed by Rachel Littlejohn Conversion Filing And Polishing Supervisor Cerner at 12/29/2022 4:04 PM CDT documented in this encounter Plan of Treatment Not on file documented as of this encounter Visit Diagnoses Not on filedocumented in this encounter
--- OUTSIDE RECORDS SUMMARY | 2025-06-07 16:16 | XMS_ITS | Encounter Summary ---
Author Organization [employer] ([place], [place], [place], [place]) Address [address] [place] [address] Care Team Providers Care Construction Grip Name Role Phone Unavailable Primary Care Provider Unavailabl e Encounter Details Date Type Department Care Team (Late st Contact Info) Description 11/05/2019 Transcribed Document [facility] [place] [address] [place] [address] ProviderJulio MD [address] [place] [address] 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 Tobacco Use Types Packs/Day Years [...] - Julio ProviderMD - 11/05/2019 3:53 AM MONUMENT SETTER HELPER ED Assessment Entered On: 11/05/2019 4:11 EST Performed On: 11/05/2019 4:11 EST by Candelaria Albert, TARGET MAN Quick Look Assessment Level of Consciousness : Alert, Awake Affect/Behavior : Appropriate, Calm, Cooperative Orientation : Oriented x 4 Skin Temperature : Warm Skin Description : Normal for ethnicity Candelaria Albert, RN - 11/05/2019 4:11 EST ED General-Functional Assess Information Obtained From : Patient Preferred Communication Mode : Verbal Communication Barrier : None Primary Language : Polish Any Spiritual/Cultural Needs or Requests : No Currently in Unsafe Situation : No Candelaria Albert RN - 11/05/2019 4:11 EST Social Habits Smoking Status : Smoker, current status unknown Smokeless Tobacco Status : Never Desires Tobacco Cessation Medication : No Reason for No Tobacco Cessation Medication : ED/procedural patient only Desires Tobacco Cessation Calc : 1 Candelaria Albert RN - 11/05/2019 4:11 EST 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 (As Of: 11/05/2019 04:11:37 EST) Tobacco: Use in Last 12 Months: Snuff/Dip. Packs/Tins Daily: 0.5. (Last Updated: 02/24/2015 00:10:45 EDT by GURINDER ABARCA, RN) Alcohol: Alcohol Use History No. (Last Updated: 02/24/2015 00:10:54 EDT by GURINDER ABARCA, RN) Substance Abuse: Use in Last 12 Months: No. (Last Updated: 02/24/2015 00:11:03 EDT by GURINDER ABARCA, RN) documented in this encounter Plan of Treatment Not on file documented as of this encounter Visit Diagnoses Not on filedocumented in this encounter
--- OUTSIDE RECORDS SUMMARY | 2025-06-07 16:16 | XMS_ITS | Encounter Summary ---
Author Organization [employer] ([place], [place], [place], [place]) Address [address] [place] [address] Care Team Providers Care Costume Rental Clerk Name Role Phone Unavailable Primary Care Provider Unavailabl e Encounter Details Date Type Department Care Team (Late st Contact Info) Description 11/16/2019 Transcribed Document [facility] Radiology [address] [place] [address] Mary Ann Chadwick MD [facility] Dept [place] [address] 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 Tobacco Use Types Packs/Day Years [...] Note - Mary Ann Chadwick MD - 11/16/2019 5:56 AM EST Patient: OREN KIM Age: 34 years Sex: Female : 1985 Associated Diagnoses: Left flank pain; Nausea Author: MARY ANN CHADWICK MD Basic Information Time seen: Date & time 11/16/2019 04:47:00. History source: Patient. Additional information: Patient's physician(s): PCP is in [place], Chief Complaint from Nursing Triage Note : Chief Complaint 11/16/2019 4:08 EST Chief Complaint Pt c/o left lower abd pain started a day ago and now has since 10pm left flank pain with increased frequency in urination and nausea. Denies vomiting, fever. . History of Present Illness The patient presents with flank pain. The onset was 1 days ago. The degree at present is moderate. The Location of pain at present is left and flank. Therapy today: over the counter medications including ibuprofen. Associated symptoms: nausea, rash to bilateral inguinal areas, malodorous per patient, she is out of nystatin, states powder helps more than cream, improves with treatment then worsens again., Urinary frequency, and frequently feels thirsty per pt., denies vomiting and denies fever. Numerous similar prior episodes, has been seen in our ED for same symptoms numerous times. She used to see urologist Dr. Acosta, but couldn't see him any more. States after most recent ED visit she took her antibiotics as prescribed until gone and improved. She ran out of nystatin, promethazine, and antibiotics. She says she called and got an appointment scheduled with [place] [facility] in December.. Review of Systems Constitutional symptoms: Negative except as documented in HPI. Skin symptoms: Negative except as documented in HPI. Eye symptoms: Negative except as documented in HPI. ENMT symptoms: Negative except as documented in HPI. Respiratory symptoms: Negative except as documented in HPI. Cardiovascular symptoms: Negative except as documented in HPI. Gastrointestinal symptoms: Negative except as documented in HPI. Genitourinary symptoms: Negative except as documented in HPI. Musculoskeletal symptoms: Negative except as documented in HPI. Neurologic symptoms: Negative except as documented in HPI. Health Status Allergies: Allergic Reactions (Selected) Severity [...] Toradol- No reactions were documented.. Medications: (Selected) Inpatient Medications Ordered Percocet 5/325 oral tablet: 1 Tab, Oral, 1-Time promethazine: 25 mg, Oral, 1-Time Documented Medications Documented BuSpar: Oral, BID, 0 Refill(s) Paxil 40 mg oral tablet: 1 Tab, Oral, Daily, 0 Refill(s) albuterol HFA 90 mcg/inh inhalation aerosol: Puff, Inhalation, QID, 0 Refill(s) gabapentin: Oral, 0 Refill(s) ibuprofen 800 mg oral tablet: 0 Refill(s) ibuprofen 800 mg oral tablet: 0 Refill(s) tiZANidine 6 mg oral capsule: 1 Cap, Oral, TID, 90 Cap, 0 Refill(s). Past Medical/ Family/ 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 Medical history Reviewed as documented in chart. obesity. Says she has had about 90 kidney stones . Surgical history: Lithotripsy ([id number])., Reviewed as documented in chart. Family history: No family history items have been selected or recorded.. Social history: Social & Psychosocial Habits Alcohol 02/24/2015 Alcohol Use History, Social Habits No Substance Abuse 02/24/2015 Recreational Drug Use Last 12 Months No Tobacco 02/24/2015 Tobacco Use Within Last Twelve Months Snuff/Dip Packs/Tins Daily 0.5 , Reviewed as documented in chart. Problem list: Active Problems (3) Endometriosis Kidney stones PTSD (post-traumatic stress disorder) . Physical Examination Vital Signs Vital Signs/Vital Measures 11/16/2019 4:08 EST Blood Pressure Location Arm, right upper Blood Pressure Source Non-Invasive BP Device Systolic Blood Pressure 168 mmHg HI Diastolic Blood Pressure 104 mmHg HI Temperature Source Oral Temperature Mode Fahrenheit Temperature, Fahrenheit 98.3 Deg F Clinical Temperature, C 36.8 Deg C Peripheral Pulse Rate 95 bpm Respiratory Rate 18 Breaths/Min Oxygen Saturation 97 % Oxygen Therapy Mode Room air . Measurements 11/16/2019 4:08 EST Height Source Stated Height Entry Format Buchanan Height/Length, IRAQI (ft) 5 ft Height/Length IRAQI 2 Inch CLINICALHEIGHT 157.48 cm [place] Body Weight 49.73 kg Weight Source, ED Critical estimated dosing weight Weight Entry Format Buchanan Weight Hebrew lb 230 lb CLINICALWEIGHT 104.55 kg Body Surface Area (BSA) 2.03 m2 Body Mass Index 42.2 kg/m2 >HHI . Oxygen Saturation 11/16/2019 4:08 EST Oxygen Saturation 97 % . General: Alert, no acute distress, obese. Skin: Warm, dry, erythematous rash does not appear to be cellulitis, bilateral inguinal areas. Eye: Conjunctiva: not with conjunctivitis, Sclera: not icteric. Ears, nose, mouth and throat: Oral mucosa moist, hirsute, Nose: no bleeding. Respiratory: Respirations: Regular, Retractions: None. Back: left CVA tenderness. . Neurological: Normal speech observed, no dysarthria, no facial droop. Medical Decision Making Differential Diagnosis: Ureteral stone, urinary tract infection, pyelonephritis. Documents reviewed: Emergency department records, prior records, [facility] report reviewed, request #[id number]. Orders Include Previous Orders (Selected) Inpatient Orders Ordered Discharge: Percocet 5/325 oral tablet: 1 Tab, Oral, 1-Time promethazine: 25 mg, Oral, 1-Time Ordered (Collected) Culture Urine: Completed .Urinalysis Microscopic: ED Adult Fall Risk Assessment: ED Adult Triage: ED C-SSRS: ED Clinical Reconciliation: ED apprentice stylist: Urinalysis w Microscopic if Indicated: Discontinued HCG Urine Qualitative: . Results review: Lab results : Lab Results 11/16/2019 4:24 EST Urine Type U CleanCatch Urine Color Yellow Urine Appearance Hazy Urine Specific Ogden >=1.030 Urine pH Dipstick 6.5 Urine Leukocyte Esterase Small Urine Nitrite Negative Urine Protein Dipstick Negative Urine Glucose Dipstick Negative Urine Ketones Dipstick Negative Urine Urobilinogen Dipstick 0.2 EU/dL Urine Bilirubin Dipstick Negative Urine Blood Dipstick Trace-lysed Ur RBC 2-5 /HPF Ur WBC 50-100 /HPF Ur WBC Clumps Present Ur Bacteria 3+ Ur Epithelial Cells 2-5 /HPF Ur Squamous Epithelial Cells 20-50 /HPF Ur Calcium Oxalate Crystals Trace , UA consistent with possible recurrent UTI vs contaminated clean catch sample.. Impression and Plan Diagnosis Left flank pain - Discharge, Emergency medicine, Medical Nausea - Discharge, Emergency medicine, Medical possible recurrent pyelonephritis left Plan Condition: Stable. Disposition: Discharged Admit/Transfer/Discharge: Discharge (Order): Start: 11/16/2019 4:56 EST, Discharge to: Home. Prescriptions: Prescription [facility]: nystatin 100,000 units/g topical powder (Prescribe): 1 Application, Topical, BID, apply to affected areas until rash resolves, 60 Gram, 0 Refill(s) promethazine 25 mg oral tablet (Prescribe): 1 Tab, Oral, Q6H, PRN: for nausea/vomiting, 30 Tab, 0 Refill(s) cefdinir 300 mg oral capsule (Prescribe): 1 Cap, Oral, Q12H, for 14 Day(s), 28 Cap, 0 Refill(s). Patient was given the following educational materials: Flank Pain, Adult, Urinary Tract Infection, Adult. Follow up with: NICOLE ERNST Within 2 to 3 days; Follow up with specialist Within 2 to 4 weeks [facility] as scheduled in December 2019, or sooner if possible, for further evaluation and treatment of your recurrent urinary tract infections; Follow up with primary care provider Within 2 to 4 days. Counseled: Patient, Regarding diagnostic results, Regarding treatment plan. documented in this encounter Plan of Treatment Not on file documented as of this encounter Visit Diagnoses Not on filedocumented in this encounter
--- OUTSIDE RECORDS SUMMARY | 2025-06-07 16:16 | XMS_ITS | Encounter Summary ---
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 Denies dysuria. Hx of kidney stones. Currently on levaquin for UTI. (Modified) . History of Present Illness The patient is a 34-year-old white female. She has a long history of multiple medical problems including frequent UTIs as well as kidney stones. She states she recently has switched urology physicians. She presents today with a one-week history of increasing flank pain left greater than right. Occasional nausea and vomiting. She states she is currently on Levaquin for UTI. No documented fever or chills. There has been dysuria. Normal by mouth intake Review of Systems Constitutional symptoms: Negative except [...] symptoms: Negative except as documented in HPI. Psychiatric symptoms: Negative except as documented in HPI. Endocrine symptoms: Negative except as documented in HPI. Hematologic/Lymphatic symptoms: Negative except as documented in HPI. Allergy/immunologic symptoms: Negative except as documented in HPI. Additional review of systems information: All other systems reviewed and otherwise negative, All systems reviewed as documented in chart. Health Status Allergies: Allergic Reactions (Selected) Severity [...] were documented.. Medications: (Selected) Inpatient Medications Ordered cefTRIAXone: 1 Gram, IntraMuscular, 1-Time Prescriptions Prescribed nystatin 100,000 units/g topical cream: 1 Application, Topical, BID, apply to affected area until rash resolves, 30 Gram, 0 Refill(s) nystatin 100,000 units/g topical powder: 1 Application, Topical, BID, 60 Gram, 0 Refill(s) oxyCODONE 5 mg oral capsule: 1 Cap, Oral, Q6H, PRN: as needed for pain, 12 Cap, 0 Refill(s) promethazine 25 mg oral tablet: 1 Tab, Oral, Q6H, PRN: for nausea/vomiting, 20 Tab, 0 Refill(s) promethazine 25 mg oral tablet: [...] ibuprofen 800 mg oral tablet: 0 Refill(s) levoFLOXacin 500 mg oral tablet: 0 Refill(s) tiZANidine 6 mg oral capsule: 1 Cap, Oral, TID, 90 Cap, 0 Refill(s). Past Medical/ Family/ 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 Surgical history: Lithotripsy ([id number]).. Family history: No family history items have been selected or recorded.. Social history: Social & Psychosocial Habits Alcohol 02/24/2015 Alcohol Use History, Social Habits No Substance Abuse 02/24/2015 Recreational Drug Use Last 12 Months No Tobacco 02/24/2015 Tobacco Use Within Last Twelve Months Snuff/Dip Packs/Tins Daily 0.5 . Problem list: Active Problems (2) Kidney stones PTSD (post-traumatic stress disorder) . Physical Examination Vital Signs Vital Signs/Vital Measures 11/05/2019 4:03 EST Systolic Blood Pressure 161 mmHg HI Diastolic Blood Pressure 91 mmHg HI Temperature Source Oral Temperature Mode Fahrenheit Temperature, Fahrenheit 98.2 Deg F Clinical Temperature, C 36.8 Deg C Peripheral Pulse Rate 98 bpm Respiratory Rate 18 Breaths/Min Oxygen Saturation 100 % Oxygen Therapy Mode Room air . Measurements 11/05/2019 4:03 EST Height Source Stated Height Entry Format Major Height/Length, ARMENIAN (ft) 5 ft Height/Length ARMENIAN 3 Inch CLINICALHEIGHT 160.02 cm [place] Body Weight 52.02 kg Weight Source, ED Critical estimated dosing weight Weight Entry Format Major Weight Panamanian lb 250 lb CLINICALWEIGHT 113.64 kg Body Surface Area (BSA) 2.13 m2 Body Mass Index 44.4 kg/m2 >HHI . Oxygen Saturation 11/05/2019 4:03 EST Oxygen Saturation 100 % . General: Alert, no acute distress. Skin: Warm, dry. Head: Normocephalic, atraumatic. Neck: Supple. Eye: Pupils are equal, round and reactive to light, extraocular movements are intact. Ears, nose, mouth and throat: Oral mucosa moist. Cardiovascular: Regular rate and rhythm, No edema. Respiratory: Lungs are clear to auscultation, respirations are non-labored. Gastrointestinal: Soft, Nontender, Non distended, Normal bowel sounds. Back: Minimal bilateral CVA tenderness left greater than right.. Musculoskeletal: Normal ROM, normal strength. Neurological: Alert and oriented to person, place, time, and situation, No focal neurological deficit observed. Lymphatics: No lymphadenopathy. Psychiatric: Cooperative. Medical Decision Making Documents reviewed: Emergency department nurses' notes. Reexamination/ Reevaluation I spoke at length with the patient. She is followed by urology closely and has had multiple CAT scans of the last several months. I'm not going to repeat a CAT scan tonight. I did review all of her cultures of her urine over the last several years. I'm going to place her on Omnicef 300 twice a day for 1 week after a dose of Rocephin here. Although she lists multiple allergies to cephalosporin she has taken both of these without difficulty. I'm also going to give her a refill on her Phenergan. She will need to their urologist this week Impression and Plan Diagnosis Acute UTI - Discharge, Emergency medicine, Medical Plan Condition: Stable. Prescriptions: Prescription Electron Beam Machine Welder Set[facility] Pharm[facility]: promethazine 25 mg oral tablet (Prescribe): 1 Tab, Oral, Q6H, PRN: as needed for nausea/vomiting, 15 Tab, 0 Refill(s) cefdinir 300 mg oral capsule (Prescribe): 1 Cap, Oral, BID, for 7 Day(s), 14 Cap, 0 Refill(s). Patient was given the following educational materials: Urinary Tract Infection, Adult. Follow up with: NICOLE ERNST Within 2 to 3 days Please take medications as written. Followup with your urologist this week. Counseled: Patient. Orders: Launch Orders Admit/Transfer/Discharge: Discharge (Order): Start: 11/05/2019 4:31 EST, Discharge to: Home. Electronically signed by Eron, [facility] Conversion Valet Cashier Cerner at 12/29/2022 4:02 PM CDT documented in this encounter Plan of Treatment Not on file documented as of this encounter Visit Diagnoses Not on filedocumented in this encounter
--- OUTSIDE RECORDS SUMMARY | 2025-06-07 16:16 | XMS_ITS | Encounter Summary ---
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 ED Discharge Entered On: 11/16/2019 5:05 EST Performed On: 11/16/2019 5:05 EST by MICHELLE ORTIZ RN Discharge Process Patient Disposition : Discharge Personal Belongings With Patient : Yes Patient Education Completed : Yes Teaching Evaluation : Verbalizes understanding IV Discontinued : Not applicable MICHELLE ORTIZ RN - 11/16/2019 5:05 EST ED Discharge Discharge To : Home with ambulatory/outpatient follow-up Mode Of Departure : Ambulatory Accompanied By : Unaccompanied Discharge Instructions Reviewed With, Opportunity For Questions Given : Patient Prescriptions Given to Patient : Yes Number of Prescriptions Given : 3 MICHELLE ORTIZ RN - 11/16/2019 5:05 EST Electronically signed by Eron [facility] Conversion African History Professor Cerner at 12/29/2022 4:24 PM CDT documented in this encounter Plan of Treatment Not on file documented as of this encounter Visit Diagnoses Not on filedocumented in this encounter
--- OUTSIDE RECORDS SUMMARY | 2025-06-07 16:17 | XMS_ITS | Encounter Summary ---
Author Organization [employer] ([place], [place], [place], [place]) Address [address] [place] [address] Care Team Providers Care Sign Builder Supervisor Name Role Phone Unavailable Primary Care Provider Unavailabl e Encounter Details Date Type Department Care Team (Late st Contact Info) Description 11/27/2019 Transcribed Document [facility] [place] [address] [place] [address] ProviderJulio MD [address] [place] [address] 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 Tobacco Use Types Packs/Day Years [...] Conversion Note - Julio Van MD - 11/27/2019 5:06 AM CDT ED Discharge Entered On: 11/27/2019 5:07 EDT Performed On: 11/27/2019 5:06 EDT by Sharri Espinoza, truck loader Process Patient Disposition : Discharge Personal Belongings With Patient : Yes Patient Education Completed : Yes Teaching Evaluation : Verbalizes understanding IV Discontinued : Not applicable Nursing Documentation Completed : Yes Sharri Espinoza RN - 11/27/2019 5:06 EDT ED Discharge Discharge To : Home with ambulatory/outpatient follow-up Mode Of Departure : Ambulatory, Private vehicle Accompanied By : Friend, Unaccompanied Discharge Instructions Reviewed With, Opportunity For Questions Given : Patient Prescriptions Given to Patient : Yes Sharri Espinoza RN - 11/27/2019 5:06 EDT Electronically signed by Eron [facility] Conversion Public Relations Studies Director Cerner at 12/29/2022 4:26 PM CDT documented in this encounter Plan of Treatment Not on file documented as of this encounter Visit Diagnoses Not on filedocumented in this encounter
--- OUTSIDE RECORDS SUMMARY | 2025-06-07 16:17 | XMS_ITS | Encounter Summary ---
Author Organization [employer] ([place], [place], [place], [place]) Address [address] [place] [address] Care Team Providers Care Apartment Hotel Manager Name Role Phone Unavailable Primary Care Provider Unavailabl e Encounter Details Date Type Department Care Team (Late st Contact Info) Description 11/27/2019 Transcribed Document [facility] [place] [address] [place] [address] ProviderJulio MD [address] [place] [address] 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 Tobacco Use Types Packs/Day Years Used Date Smoking Tobacco: Never Assessed Comments Unknown Sex and Gender Information Value Date Recorded Sex Assigned at Female 03/12/2022 2:43 PM CDT Legal Sex Female 5:44 PM CDT Gender Identity Female 03/12/2022 2:43 PM CDT Sexual Orientation Not on file documented as of this encounter Miscellaneous Notes * Cerner Conversion Note - Julio ProviderMD - 11/27/2019 1:56 AM CDT ED Triage Entered On: 11/27/2019 2:06 EDT Performed On: 11/27/2019 2:01 EDT by Leonel Shetty, speech teacher Triage Across the Room Chief Complaint : Seen last week for UTI. States pain is getting worse Triage Date/Time : 11/27/2019 2:01 EDT Leonel Shetty Rn - 11/27/2019 2:01 EDT DCP GENERIC CODE Tracking Acuity : 3 - Urgent Tracking Group : [facility] ED CrookLeonel Nunez Rn - 11/27/2019 2:01 EDT Mode of Arrival : Ambulatory Transported to ED by : Private vehicle To Room Via : Ambulate Accompanied By : Unaccompanied ED Vital Signs : Document Height & Weight : Document ED Allergies : Document ED Infection Control : No ED Reason for Visit : Document Status : Hysterectomy Tetanus Immunization : Less than 5 years Leonel Shetty Rn - 11/27/2019 2:01 EDT Infectious Disease History COVID19 Screening : No Physical contact outside [place] in the last 30 days : No Infectious Disease History : Chicken pox/Shingles, Influenza Tuberculosis Symptoms : None Leonel Shtety Rn - 11/27/2019 2:01 EDT Vital Signs ED Temperature Source : Oral Temperature Mode : Fahrenheit Temperature, Fahrenheit : 99.4 Deg F ED Pain : Yes Clinical Temperature, C : 37.4 Deg C Oxygen Therapy Mode : Room air Peripheral Pulse Rate : 132 bpm (HI) Respiratory Rate : 18 Breaths/Min Blood Pressure Location : Arm, right upper Blood Pressure Source : Non-Invasive BP Device Systolic Blood Pressure : 190 mmHg (HI) Diastolic Blood Pressure : 100 mmHg (HI) Oxygen Saturation : 97 % Leonel Shetty Rn - 11/27/2019 2:01 EDT Allergy (As Of: 11/27/2019 02:06:51 EDT) Allergies (Active) most abx Estimated Onset Date: Unspecified ; Created By: MANPREET SALAS; Reaction Status: Active ; Category: Drug ; Substance: most abx ; Type: Allergy ; Updated By: MANPREET SALAS; Reviewed Date: 11/27/2019 2:01 EDT amoxicillin-clavulanate Estimated Onset Date: Unspecified ; Reactions: SOA, SOA ; Created By: MANPREET SALAS; Reaction Status: Active ; Category: Drug ; Substance: amoxicillin-clavulanate ; Type: Allergy ; Updated By: MANPREET SALAS; Reviewed Date: 11/27/2019 2:01 EDT cefaclor Estimated Onset Date: Unspecified ; Created By: MANPREET SALAS; Reaction Status: Active ; Substance: cefaclor ; Updated By: MANPREET SALAS; Reviewed Date: 11/27/2019 2:01 EDT ciprofloxacin Estimated Onset Date: Unspecified ; Reactions: HIVES, HIVES ; Created By: MANPREET SALAS; Reaction Status: Active ; Substance: ciprofloxacin ; Updated By: MANPREET SALAS; Reviewed Date: 11/27/2019 2:01 EDT codeine Estimated Onset Date: Unspecified ; Created By: LORE JARQUIN RN; Reaction Status: Active ; Category: Drug ; Substance: codeine ; Type: Allergy ; Updated By: LORE JARQUIN, RN; Reviewed Date: 11/27/2019 2:01 EDT doxycycline Estimated Onset Date: Unspecified ; Reactions: RASH/SOA, RASH/SOA ; Created By: MANPREET SALAS; Reaction Status: Active ; Category: Drug ; Substance: doxycycline ; Type: Allergy ; Updated By: MANPREET SALAS; Reviewed Date: 11/27/2019 2:01 EDT gatifloxacin Estimated Onset Date: Unspecified ; Created By: MANPREET SALAS; Reaction Status: Active ; Substance: gatifloxacin ; Updated By: MANPREET SALAS; Reviewed Date: 11/27/2019 2:01 EDT Keflex Estimated Onset Date: Unspecified ; Created By: Cathi Green RN; Reaction Status: Active ; Category: Drug ; Substance: Keflex ; Type: Allergy ; Updated By: Cathi Green RN; Reviewed Date: 11/27/2019 2:01 EDT midazolam Estimated Onset Date: Unspecified ; Created By: MANPREET SALAS; Reaction Status: Active ; Category: Drug ; Substance: midazolam ; Type: Allergy ; Updated By: MANPREET SALAS; Reviewed Date: 11/27/2019 2:01 EDT nitrofurantoin Estimated Onset Date: Unspecified ; Reactions: RASH/SOA, RASH/SOA ; Created By: MANPREET SALAS; Reaction Status: Active ; Category: Drug ; Substance: nitrofurantoin ; Type: Allergy ; Updated By: MANPREET SALAS; Reviewed Date: 11/27/2019 2:01 EDT ondansetron Estimated Onset Date: Unspecified ; Created By: MANPREET SALAS; Reaction Status: Active ; Category: Drug ; Substance: ondansetron ; Type: Allergy ; Updated By: MANPREET SALAS; Reviewed Date: 11/27/2019 2:01 EDT sulfa drugs Estimated Onset Date: Unspecified ; Created By: CONTRIBUTOR_SYSTEMMANPREET; Reaction Status: Active ; Substance: sulfa drugs ; Updated By: CONTRIBUTOR_MANPREET CHI; Reviewed Date: 11/27/2019 2:01 EDT Toradol Estimated Onset Date: Unspecified ; Created By: Cathi Green RN; Reaction Status: Active ; Category: Drug ; Substance: Toradol ; Type: Allergy ; Updated By: Cathi Green RN; Reviewed Date: 11/27/2019 2:01 EDT Diagnosis Control ED (As Of: 11/27/2019 02:06:51 EDT) Problems(Active) Endometriosis (SNOMED CT :909841591 ) Name of Problem: Endometriosis ; Recorder: Farzaneh Rico RN; Confirmation: Confirmed ; Classification: Medical ; Code: [id number] ; Contributor System: MIKA [employer] ; Last Updated: 11/16/2019 4:18 EST ; Life Cycle Date: 11/16/2019 ; Life Cycle Status: Active ; Vocabulary: SNOMED CT Kidney stones (SNOMED CT :364138333 ) Name of Problem: Kidney stones ; Recorder: MANFRED CAI PA; Confirmation: Confirmed ; Classification: Medical ; Code: [id number] ; Contributor System: [employer]KA [employer] ; Last Updated: 10/24/2015 13:26 EST ; Life Cycle Date: 10/24/2015 ; Life Cycle Status: Active ; Responsible Provider: MANFRED CAI PA; Vocabulary: SNOMED CT PTSD (post-traumatic stress disorder) (SNOMED CT :26846084 ) Name of Problem: PTSD (post-traumatic stress disorder) ; Recorder: MANFRED CAI PA; Confirmation: Confirmed ; Classification: Medical ; Code: [id number] ; Contributor System: MIKA Audio ; Last Updated: 10/24/2015 13:26 EST ; Life Cycle Date: 10/24/2015 ; Life Cycle Status: Active ; Responsible Provider: MANFRED CAI PA; Vocabulary: SNOMED CT Diagnoses(Active) Abdominal pain Date: 11/27/2019 ; Diagnosis Type: Reason For Visit ; Confirmation: Complaint of ; Clinical Dx: Abdominal pain ; Classification: Medical ; Clinical Service: Emergency medicine ; Code: PNED ; Probability: 0 ; Diagnosis Code: [id number] ED Height and Weight Height Source : Stated Height Entry Format : [place] Height, Feet : 5 ft(Converted to: 152 cm, 60 Inch) Height, Inches : 2 Inch(Converted to: 0 ft 2 Inch, 5.08 cm) Clinical Height : 157.48 cm Weight Source, ED : Critical estimated dosing weight Weight Entry Format : [place] Weight, Pounds : 230 lb Clinical Dosing Weight : 104.55 kg Body Surface Area (BSA) : 2.03 m2 Body Mass Index : 42.2 kg/m2 (>HHI) [place] Body Weight (IBW) : 49.73 kg Leonel Shetty Rn - 11/27/2019 2:01 EDT Pain Assessment Pain Assessment : Initial assessment Pain Scale Used : 0-10 Scale Location : Abdominal Leonel Shetty Rn - 11/27/2019 2:01 EDT Pain Scale Intensity : 5 Leonel Shetty Rn - 11/27/2019 2:01 EDT Image 4 - Images currently included in the form version of this document have not been included in the text rendition version of the form. documented in this encounter Plan of Treatment Not on file documented as of this encounter Visit Diagnoses Not on filedocumented in this encounter
--- OUTSIDE RECORDS SUMMARY | 2025-06-07 16:17 | XMS_ITS | Encounter Summary ---
Author Organization [employer] ([place], [place], [place], [place]) Address [address] [place] [address] Care Team Providers Care Marine Painter Name Role Phone Unavailable Primary Care Provider Unavailabl e Encounter Details Date Type Department Care Team (Late st Contact Info) Description 11/27/2019 Transcribed Document [facility] [place] Family Medicine [address] [place] [address] ProviderJulio MD [address] [place] [address] 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 Tobacco Use Types Packs/Day Years [...] Julio ProviderMD - 11/27/2019 1:56 AM CDT [place] Suicide Severity Rating Scale (C-SSRS) Entered On: 11/27/2019 2:07 EDT Performed On: 11/27/2019 2:06 EDT by Leonel Shetty Rn [place] Suicide Severity Rating Scale (C-SSRS) CSSRS Past Month Wish to be : No CSSRS Past Month Suicidal Thoughts : No CSSRS Lifetime Suicide Behavior : No Suicide Severity Rating Score : 0 Suicide Severity Rating : No Additional Care Required at this time Leonel Shetty Rn - 11/27/2019 2:06 EDT Electronically signed by Eron [facility] Conversion Cotton Picker Cerner at 12/29/2022 4:28 PM CDT documented in this encounter Plan of Treatment Not on file documented as of this encounter Visit Diagnoses Not on filedocumented in this encounter
--- OUTSIDE RECORDS SUMMARY | 2025-06-07 16:17 | XMS_ITS | Encounter Summary ---
Author Organization [employer] ([place], [place], [place], [place]) Address [address] [place] [address] Care Team Providers Care Natural Resource Manager Name Role Phone Unavailable Primary Care Provider Unavailabl e Encounter Details Date Type Department Care Team (Late st Contact Info) Description 11/28/2019 Transcribed Document [facility] [place] Family Medicine [address] [place] [address] ProviderJulio MD [address] [place] [address] 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 Tobacco Use Types Packs/Day Years [...] Conversion Note - Julio Van MD - 11/28/2019 8:27 AM CDT ED Discharge Entered On: 11/28/2019 8:28 EDT Performed On: 11/28/2019 8:27 EDT by MADELYN ARTEAGA, rail switchman Process Patient Disposition : Discharge Personal Belongings With Patient : No personal belongings to return Patient Education Completed : Yes Teaching Evaluation : Verbalizes understanding IV Discontinued : Not applicable Nursing Documentation Completed : Yes MADELYN ARTEAGA, RN - 11/28/2019 8:28 EDT ED Discharge Discharge To : Home with ambulatory/outpatient follow-up Mode Of Departure : Ambulatory Accompanied By : Friend Discharge Instructions Reviewed With, Opportunity For Questions Given : Patient Prescriptions Given to Patient : No Medications Given to Patient : Yes MADELYN ARTEAGA RN - 11/28/2019 8:28 EDT Electronically signed by Rachel Littlejohn Conversion Logistics Planning Manager Cerjane at 12/29/2022 4:06 PM CDT documented in this encounter Plan of Treatment Not on file documented as of this encounter Visit Diagnoses Not on filedocumented in this encounter
--- OUTSIDE RECORDS SUMMARY | 2025-06-07 16:17 | XMS_ITS | Encounter Summary ---
Author Organization [employer] ([place], [place], [place], [place]) Address [address] [place] [address] Care Team Providers Care Associate Producer Name Role Phone Unavailable Primary Care Provider Unavailabl e Encounter Details Date Type Department Care Team (Late st Contact Info) Description 11/28/2019 Transcribed Document [facility] [place] Family Medicine [address] [place] [address] ProviderJulio MD [address] [place] [address] 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 Tobacco Use Types [...] Note - Julio Van MD - 11/28/2019 6:33 AM CDT [facility] [address] [place] [address] OREN KIM :1985 Visit Time:11/28/2019 Your Visit Summary Your Care Team Primary Provider: CODIE RUIZ Secondary Provider: Your Diagnosis Flank pain Flank pain Medical Information You may obtain a [...] up with specialist When Within 2 to 3 days Comments Follow up with urology as planned. Continue home pain meds and nausea medicine. Return if worse. You can take ibuprofen in addition to you other pain medication if needed for additional pain control. Follow Up with NICOLE ERNST When Within 2 to 3 days Where: [address] [address] [facility] (1) Allergies most abx Keflex Toradol amoxicillin-clavulanate (SOA, SOA) cefaclor ciprofloxacin (HIVES, HIVES) codeine doxycycline (RASH/SOA, RASH/SOA) gatifloxacin midazolam nitrofurantoin (RASH/SOA, RASH/SOA) ondansetron sulfa drugs Immunizations This Visit No Immunizations Found Medications What How Much When Instructions Next Dose ibuprofen (ibuprofen 800 mg oral tablet) promethazine (promethazine 25 mg oral tablet) 1 Tablet(s) Oral Every 6 Hours as needed for as needed for nausea/vomiting Duration: 5 Day(s) acetaminophen-hydrocodone (acetaminophen-HYDROcodone 325 mg-5 mg oral tablet) 1 Tablet(s) Oral Every 6 Hours as needed for for pain Duration: 3 Day(s) albuterol (albuterol HFA 90 mcg/ inh inhalation aerosol) Inhalation Four Times A Day busPIRone (BuSpar) Oral Two Times A Day diphenhydrAMINE (Benadryl 25 mg oral tablet) 1 Tablet(s) Oral Every 6 Hours as needed for as needed for itching fluconazole (Diflucan) Every Day gabapentin Oral levoFLOXacin (Levaquin 750 mg oral tablet) 1 Tablet(s) Oral Interval Every 24 Hours Duration: 7 Day(s) nystatin topical (nystatin 100,000 units/ g topical powder) 1 Application(s) Topical Two Times A Day apply to affected areas until rash resolves paroxetine (Paxil 40 mg oral tablet) 1 Tablet(s) Oral Every Day tiZANidine (tiZANidine 6 mg oral capsule) 1 Capsule(s) Oral Three Times A Day The home medications listed are only as [...] This Visit (last charted value for your 11/28/2019 visit) No Laboratory or Other Results This Visit Education Materials Kidney Stones Kidney stones (urolithiasis) are solid, rock-like deposits that form inside of the organs that make urine (kidneys). A kidney stone may form in a kidney and move into the bladder, where it can cause intense pain and block the flow of urine. Kidney stones are created when high levels of certain minerals are found in the urine. They are usually passed through urination, but in some cases, medical treatment may be needed to remove them. What are the causes? Kidney stones may be caused by: ??? A condition in which certain glands produce too much parathyroid hormone (primary hyperparathyroidism), which causes too much calcium buildup in the blood. ??? Buildup of uric acid crystals in the bladder (hyperuricosuria). Uric acid is a chemical that the body produces when you eat certain foods. It usually exits the body in the urine. ??? Narrowing (stricture) of one or both of the tubes that drain urine from the kidneys to the bladder (ureters). ??? A kidney blockage that is present at (congenital obstruction). ??? Past surgery on the kidney or the ureters, such as gastric bypass surgery. What increases the risk? The following factors make you more likely to develop kidney stones: ??? Having had a kidney stone in the past. ??? Having a family history of kidney stones. ??? Not drinking enough water. ??? Eating a diet that is high in protein, salt (sodium), or sugar. ??? Being overweight or obese. What are the signs or symptoms? Symptoms of a kidney stone may include: ??? Nausea. ??? Vomiting. ??? Blood in the urine (hematuria). ??? Pain in the side of the abdomen, right below the ribs (flank pain). Pain usually spreads (radiates) to the groin. ??? Needing to urinate frequently or urgently. How is this diagnosed? This condition may be diagnosed based on: ??? Your medical history. ??? A physical exam. ??? Blood tests. ??? Urine tests. ??? CT scan. ??? Abdominal X-ray. ??? A procedure to examine the inside of the bladder (cystoscopy). How is this treated? Treatment for kidney stones depends on the size, location, and makeup of the stones. Treatment may involve: ??? Analyzing your urine before and after you pass the stone through urination. ??? Being monitored at the hospital until you pass the stone through urination. ??? Increasing your fluid intake and decreasing the amount of calcium and protein in your diet. ??? A procedure to break up kidney stones in the bladder using: ? A focused beam of light (laser therapy). ? Shock waves (extracorporeal shock wave lithotripsy). ??? Surgery to remove kidney stones. This may be needed if you have severe pain or have stones that block your urinary tract. Follow these instructions at home: Eating and drinking ??? Drink enough fluid to keep your urine clear or pale yellow. This will help you to pass the kidney stone. ??? If directed, change your diet. This may include: ? Limiting how much sodium you eat. ? Eating more fruits and vegetables. ? Limiting how much meat, poultry, fish, and eggs you eat. ??? Follow instructions from your health care provider about eating or drinking restrictions. General instructions ??? Collect urine samples as told by your health care provider. You may need to collect a urine sample: ? 24 hours after you pass the stone. ? 8???12 weeks after passing the kidney stone, and every 6???12 months after that. ??? Strain your urine every time you urinate, for as long as directed. Use the strainer that your health care provider recommends. ??? Do not throw out the kidney stone after passing it. Keep the stone so it can be tested by your health care provider. Testing the makeup of your kidney stone may help prevent you from getting kidney stones in the future. ??? Take pzid-dhe-cfttuyt and prescription medicines only as told by your health care provider. ??? Keep all follow-up visits as told by your health care provider. This is important. You may need follow-up X-rays or ultrasounds to make sure that your stone has passed. How is this prevented? To prevent another kidney stone: ??? Drink enough fluid to keep your urine clear or pale yellow. This is the best way to prevent kidney stones. ??? Eat a healthy diet and follow recommendations from your health care provider about foods to avoid. You may be instructed to eat a low-protein diet. Recommendations vary depending on the type of kidney stone that you have. ??? Maintain a healthy weight. Contact a health care provider if: ??? You have pain that gets worse or does not get better with medicine. Get help right away if: ??? You have a fever or chills. ??? You develop severe pain. ??? You develop new abdominal pain. ??? You faint. ??? You are unable to urinate. This information is not intended to replace advice given to you by your health care provider. Make sure you discuss any questions you have with your health care provider. Document Released: 08/30/2006 Document Revised: 02/10/2018 Document Reviewed: 02/12/2017 [email or web address] Interactive Patient Education ?? 2019 [employer]. Emergency Awareness and Preventative Care STROKE is [...] Assistance with quitting is available by contacting 9-115-RVCF-NOW. This is a free resource providing counseling, [...] or pathology physicians. Patient Name:OREN KIM Eliz I have received this information and was given the opportunity to ask questions. Patient/Boat Deckhand Name: Patient/Boat Deckhand Signature: Relationship to Patient: Clinician/Hospital Boat Deckhand Signature: Please Provide a Telephone Number Where You Can Be Reached: Is it Permissible To Leave a Message? Date: documented in this encounter Plan of Treatment Not on file documented as of this encounter Visit Diagnoses Not on filedocumented in this encounter
--- OUTSIDE RECORDS SUMMARY | 2025-06-07 16:17 | XMS_ITS | Encounter Summary ---
Author Organization [employer] ([place], [place], [place], [place]) Address [address] [place] [address] Care Team Providers Care Heat Reader Name Role Phone Unavailable Primary Care Provider Unavailabl e Encounter Details Date Type Department Care Team (Late st Contact Info) Description 11/28/2019 Transcribed Document [facility] Family Medicine [address] [place] [address] ProviderJulio MD [address] [place] [address] 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 Tobacco Use Types Packs/Day Years Used Date Smoking Tobacco: Never Assessed Comments Unknown Sex and Gender Information Value Date Recorded Sex Assigned at Female 03/12/2022 2:43 PM CDT Legal Sex Female 5:44 PM CDT Gender Identity Female 03/12/2022 2:43 PM CDT Sexual Orientation Not on file documented as of this encounter Miscellaneous Notes * Cerner Conversion Note - Julio ProviderMD - 11/28/2019 4:21 AM CDT ED Triage Entered On: 11/28/2019 4:28 EDT Performed On: 11/28/2019 4:24 EDT by Farzaneh Rico, PMO MANAGER Triage Across the Room Chief Complaint : Pt was here 1 day ago dx with UTI and kidney stone, states the pain is much worse and she has started vomiting. Triage Date/Time : 11/28/2019 4:24 EDT Farzaneh Rico RN - 11/28/2019 4:24 EDT DCP GENERIC CODE Tracking Acuity : 3 - Urgent Tracking Group : [facility] ED Farzaneh Riley RN - 11/28/2019 4:24 EDT Mode of Arrival : Ambulatory Transported to ED by : Private vehicle To Room Via : Ambulate Accompanied By : Unaccompanied ED Vital Signs : Document Height & Weight : Document ED Allergies : Document ED Reason for Visit : Document Status : Hysterectomy Tetanus Immunization : Less than 5 years Farzaneh Rico RN - 11/28/2019 4:24 EDT Infectious Disease History COVID19 Screening : No Physical contact outside [place] in the last 30 days : No Infectious Disease History : Chicken pox/Shingles, Influenza Tuberculosis Symptoms : None Farzaneh Rico RN - 11/28/2019 4:24 EDT Vital Signs ED Temperature Source : Oral Temperature Mode : Fahrenheit Temperature, Fahrenheit : 101.5 Deg F (HI) ED Pain : Yes Clinical Temperature, C : 38.6 Deg C Oxygen Therapy Mode : Room air Peripheral Pulse Rate : 140 bpm (HI) Respiratory Rate : 20 Breaths/Min Blood Pressure Location : Arm, right upper Blood Pressure Source : Non-Invasive BP Device Systolic Blood Pressure : 145 mmHg (HI) Diastolic Blood Pressure : 87 mmHg Oxygen Saturation : 96 % Farzaneh Rico RN - 11/28/2019 4:24 EDT Allergy (As Of: 11/28/2019 04:28:11 EDT) Allergies (Active) most abx Estimated Onset Date: Unspecified ; Created By: MANPREET SALAS; Reaction Status: Active ; Category: Drug ; Substance: most abx ; Type: Allergy ; Updated By: MANPREET SALAS; Reviewed Date: 11/28/2019 4:27 EDT amoxicillin-clavulanate Estimated Onset Date: Unspecified ; Reactions: SOA, SOA ; Created By: MANPREET SALAS; Reaction Status: Active ; Category: Drug ; Substance: amoxicillin-clavulanate ; Type: Allergy ; Updated By: MANPREET SALAS; Reviewed Date: 11/28/2019 4:27 EDT cefaclor Estimated Onset Date: Unspecified ; Created By: MANPREET SALAS; Reaction Status: Active ; Substance: cefaclor ; Updated By: MANPREET SALAS; Reviewed Date: 11/28/2019 4:27 EDT ciprofloxacin Estimated Onset Date: Unspecified ; Reactions: HIVES, HIVES ; Created By: MANPREET SALAS; Reaction Status: Active ; Substance: ciprofloxacin ; Updated By: MANPREET SALAS; Reviewed Date: 11/28/2019 4:27 EDT codeine Estimated Onset Date: Unspecified ; Created By: LORE JARQUIN RN; Reaction Status: Active ; Category: Drug ; Substance: codeine ; Type: Allergy ; Updated By: LORE JARQUIN RN; Reviewed Date: 11/28/2019 4:27 EDT doxycycline Estimated Onset Date: Unspecified ; Reactions: RASH/SOA, RASH/SOA ; Created By: MANPREET SALAS; Reaction Status: Active ; Category: Drug ; Substance: doxycycline ; Type: Allergy ; Updated By: MANPREET SALAS; Reviewed Date: 11/28/2019 4:27 EDT gatifloxacin Estimated Onset Date: Unspecified ; Created By: MANPREET SALAS; Reaction Status: Active ; Substance: gatifloxacin ; Updated By: MANPREET SALAS; Reviewed Date: 11/28/2019 4:27 EDT Keflex Estimated Onset Date: Unspecified ; Created By: Cathi Green RN; Reaction Status: Active ; Category: Drug ; Substance: Keflex ; Type: Allergy ; Updated By: Cathi Green RN; Reviewed Date: 11/28/2019 4:27 EDT midazolam Estimated Onset Date: Unspecified ; Created By: MANPREET SALAS; Reaction Status: Active ; Category: Drug ; Substance: midazolam ; Type: Allergy ; Updated By: MANPREET SALAS; Reviewed Date: 11/28/2019 4:27 EDT nitrofurantoin Estimated Onset Date: Unspecified ; Reactions: RASH/SOA, RASH/SOA ; Created By: MANPREET SALAS; Reaction Status: Active ; Category: Drug ; Substance: nitrofurantoin ; Type: Allergy ; Updated By: MANPREET SALAS; Reviewed Date: 11/28/2019 4:27 EDT ondansetron Estimated Onset Date: Unspecified ; Created By: MANPREET SALAS; Reaction Status: Active ; Category: Drug ; Substance: ondansetron ; Type: Allergy ; Updated By: CONTRIBUTOR_SYSTEMMANPREET; Reviewed Date: 11/28/2019 4:27 EDT sulfa drugs Estimated Onset Date: Unspecified ; Created By: MANPREET SALAS; Reaction Status: Active ; Substance: sulfa drugs ; Updated By: MANPREET SALAS; Reviewed Date: 11/28/2019 4:27 EDT Toradol Estimated Onset Date: Unspecified ; Created By: Cathi Green RN; Reaction Status: Active ; Category: Drug ; Substance: Toradol ; Type: Allergy ; Updated By: Cathi Green RN; Reviewed Date: 11/28/2019 4:27 EDT Diagnosis Control ED (As Of: 11/28/2019 04:28:11 EDT) Problems(Active) Endometriosis (SNOMED CT :474045153 ) Name of Problem: Endometriosis ; Recorder: Farzaneh Rico RN; Confirmation: Confirmed ; Classification: Medical ; Code: [id number] ; Contributor System: FoneSense ; Last Updated: 11/16/2019 4:18 EST ; Life Cycle Date: 11/16/2019 ; Life Cycle Status: Active ; Vocabulary: SNOMED CT Kidney stones (SNOMED CT :156257026 ) Name of Problem: Kidney stones ; Recorder: MANFRED CAI PA; Confirmation: Confirmed ; Classification: Medical ; Code: [id number] ; Contributor System: DataOceansChart ; Last Updated: 10/24/2015 13:26 EST ; Life Cycle Date: 10/24/2015 ; Life Cycle Status: Active ; Responsible Provider: MANFRED CAI PA; Vocabulary: SNOMED CT PTSD (post-traumatic stress disorder) (SNOMED CT :75818958 ) Name of Problem: PTSD (post-traumatic stress disorder) ; Recorder: MANFRED CAI PA; Confirmation: Confirmed ; Classification: Medical ; Code: [id number] ; Contributor System: PowerChart ; Last Updated: 10/24/2015 13:26 EST ; Life Cycle Date: 10/24/2015 ; Life Cycle Status: Active ; Responsible Provider: MANFRED CAI PA; Vocabulary: SNOMED CT Diagnoses(Active) Flank pain Date: 11/28/2019 ; Diagnosis Type: Reason For Visit ; Confirmation: Complaint of ; Clinical Dx: Flank pain ; Classification: Medical ; Clinical Service: Emergency medicine ; Code: PNED ; Probability: 0 ; Diagnosis Code: [id number] ED Height and Weight Height Source : Stated Height Entry Format : Tripp Height, Feet : 5 ft(Converted to: 152 cm, 60 Inch) Height, Inches : 2 Inch(Converted to: 0 ft 2 Inch, 5.08 cm) Clinical Height : 157.48 cm Weight Source, ED : Critical estimated dosing weight Weight Entry Format : Tripp Weight, Pounds : 230 lb Clinical Dosing Weight : 104.55 kg Body Surface Area (BSA) : 2.03 m2 Body Mass Index : 42.2 kg/m2 (>HHI) [place] Body Weight (IBW) : 49.73 kg Farzaneh Rico RN - 11/28/2019 4:24 EDT Pain Assessment Pain Assessment : Initial assessment Pain Scale Used : 0-10 Scale Location : Flank, left Onset : Constant Quality : Aching, Sharp Pain Radiation : No Farzaneh Rico RN - 11/28/2019 4:24 EDT Pain Scale Intensity : 9 Farzaneh Rico RN - 11/28/2019 4:24 EDT Image 4 - Images currently included in the form version of this document have not been included in the text rendition version of the form. ED Influenza/Pneumoccocal Vaccine Influenza Immunization, Current Season : Yes Previous Vaccines from Immunization Schedule : No qualifying data available. Farzaneh Rico RN - 11/28/2019 4:24 EDT documented in this encounter Plan of Treatment Not on file documented as of this encounter Visit Diagnoses Not on filedocumented in this encounter
--- OUTSIDE RECORDS SUMMARY | 2025-06-07 16:17 | XMS_ITS | Encounter Summary ---
Author Organization [employer] ([place], [place], [place], [place]) Address [address] [place] [address] Care Team Providers Care Hvac Instructor Name Role Phone Unavailable Primary Care Provider Unavailabl e Encounter Details Date Type Department Care Team (Late st Contact Info) Description 11/27/2019 Transcribed Document [facility] Radiology [address] [place] [id number] Patricia Chang MD One [facility] Dept of Emergency Medicine [place] [id number] 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 Tobacco Use Types Packs/Day Years Used Date Smoking Tobacco: Never Assessed Comments Unknown Sex and Gender Information Value Date Recorded Sex Assigned at Female 03/12/2022 2:43 PM CDT Legal Sex Female 5:44 PM CDT Gender Identity Female 03/12/2022 2:43 PM CDT Sexual Orientation Not on file documented as of this encounter Miscellaneous Notes * Cerner Conversion Note - Patricia Chang MD - 11/27/2019 3:42 AM EDT Patient: OREN KIM Age: 34 years Sex: Female : 1985 Associated Diagnoses: Acute UTI; Left ureteral stone Author: PATRICIA CHANG MD Basic Information Time seen: Date & time 11/27/2019 02:43:00. History source: Patient. Arrival mode: Private vehicle. History limitation: None. Additional information: Chief Complaint from Nursing Triage Note : Chief Complaint 11/27/2019 2:01 EDT Chief Complaint Seen last week for UTI. States pain is getting worse . History of Present Illness Patient with history of renal stones and UTIs who presents with persistent dysuria, now with left flank pain. Patient was seen here 10 days ago for dysuria, diagnosed with UTI. She has been taking Omnicef. She has not had any improvement in her dysuria and is now having left flank pain. She reports she's had 1 day of left flank all and aching pain. Pain is intermittent, no aggravating or relieving factors. Patient has tried ibuprofen at home with no relief. She has had nausea but no vomiting. She reports this feels like when she's had prior kidney stones. No fevers at home.. Review of Systems Constitutional symptoms: Negative except as documented in HPI. Skin symptoms: Negative except as documented in HPI. Eye symptoms: Negative except as documented in HPI. Respiratory symptoms: Negative except as documented in HPI. Cardiovascular symptoms: Negative except as documented in HPI. Gastrointestinal symptoms: Abdominal pain, nausea. Genitourinary symptoms: Dysuria. Musculoskeletal symptoms: Negative except as documented in [...] reactions were documented.. Medications: (Selected) Prescriptions Prescribed cefdinir 300 mg oral capsule: 1 Cap, Oral, Q12H, for 14 Day(s), 28 Cap, 0 Refill(s) nystatin 100,000 units/g topical powder: 1 Application, Topical, BID, apply to affected areas until rash resolves, 60 Gram, 0 Refill(s) promethazine 25 mg oral tablet: 1 Tab, Oral, Q6H, PRN: for nausea/vomiting, 30 Tab, 0 Refill(s) Documented Medications Documented BuSpar: [...] Medical/ Family/ 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 Surgical history: Lithotripsy ([id number]).. Family history: No family history items have been selected or recorded.. Social history: Social & Psychosocial Habits Alcohol 02/24/2015 Alcohol Use History, Social Habits No Substance Abuse 02/24/2015 Recreational Drug Use Last 12 Months No Tobacco 02/24/2015 Tobacco Use Within Last Twelve Months Snuff/Dip Packs/Tins Daily 0.5 . Problem list: Active Problems (3) Endometriosis Kidney stones PTSD (post-traumatic stress disorder) . Physical Examination Vital Signs Vital Signs/Vital Measures 11/27/2019 2:01 EDT Blood Pressure Location Arm, right upper Blood Pressure Source Non-Invasive BP Device Systolic Blood Pressure 190 mmHg HI Diastolic Blood Pressure 100 mmHg HI Temperature Source Oral Temperature Mode Fahrenheit Temperature, Fahrenheit 99.4 Deg F Clinical Temperature, C 37.4 Deg C Peripheral Pulse Rate 132 bpm HI Respiratory Rate 18 Breaths/Min Oxygen Saturation 97 % Oxygen Therapy Mode Room air . Measurements 11/27/2019 2:01 EDT Height Source Stated Height Entry Format [place] Height/Length, SPANISH (ft) 5 ft Height/Length SPANISH 2 Inch CLINICALHEIGHT 157.48 cm [place] Body Weight 49.73 kg Weight Source, ED Critical estimated dosing weight Weight Entry Format [place] Weight Sinhala lb 230 lb CLINICALWEIGHT 104.55 kg Body Surface Area (BSA) 2.03 m2 Body Mass Index 42.2 kg/m2 >HHI . Oxygen Saturation 11/27/2019 2:01 EDT Oxygen Saturation 97 % . General: Alert, no acute distress. Skin: Warm, dry, pink. Head: Normocephalic, atraumatic. Neck: Trachea midline. Eye: Normal conjunctiva. Ears, nose, mouth and throat: Oral mucosa moist. Cardiovascular: Regular rate and rhythm, No murmur. Respiratory: Lungs are clear to auscultation, respirations are non-labored. Gastrointestinal: Soft, Non distended, Tenderness: Mild, left flank, left lower quadrant, Guarding: Negative, Rebound: Negative. Back: Nontender, Normal range of motion. Musculoskeletal: Normal ROM, normal strength. Neurological: Alert and oriented to person, place, time, and situation, No focal neurological deficit observed. Psychiatric: Cooperative, appropriate mood & affect. Medical Decision Making test: UCG-negative. Results review: Lab results : Lab Results 11/27/2019 3:22 EDT Sodium Level 143 mmol/L Potassium Level 3.7 mmol/L Chloride Level 106 mmol/L Carbon Dioxide Level 26 mmol/L Anion Gap 15 Glucose Level 143 mg/dL HI Blood Urea Nitrogen 13 mg/dL Creatinine Level 1.11 mg/dL HI eGFR 68 mL/min/1.73m2 eGFR NonAfrican 56 mL/min/1.73m2 LOW Bun/Creatinine 11.712 NA Calcium Level 8.6 mg/dL Protein Total 7.3 Gram/dL Albumin Level 3.1 Gram/dL LOW Globulin 4.2 Gram/dL A/G Ratio 0.7 LOW Bilirubin Total 0.3 mg/dL Alk Phos 88 Units/Liter AST 19 Units/Liter ALT 30 Units/Liter WBC 12.9 K/uL HI RBC 4.91 Million/uL Hgb 13.4 Gram/dL Hct 40.6 % MCV 82.7 fL MCH 27.3 pg MCHC 33.0 Gram/dL Platelet Count 392 K/uL HI MPV 10.1 fL RDW 14.8 % HI Neut % 71.2 % HI Neut # 9.18 K/uL HI Lymph % 17.6 % LOW Lymph # 2.27 K/uL [place] % 8.1 % [place] # 1.05 K/uL HI Eos % 2.6 % Eos # 0.34 K/uL Baso % 0.2 % Baso # 0.03 K/uL Slide Review No IG# 0 x10(3)/uL IG% 0 % 11/27/2019 2:53 EDT HCG Urine Qualitative Negative 11/27/2019 2:07 EDT Urine Type U CleanCatch Urine Color Yellow Urine Appearance Cloudy Urine Specific Orange >=1.030 Urine pH Dipstick 6.0 Urine Leukocyte Esterase Small Urine Nitrite Negative Urine Protein Dipstick Trace Urine Glucose Dipstick Negative Urine Ketones Dipstick Negative Urine Urobilinogen Dipstick 0.2 EU/dL Urine Bilirubin Dipstick Negative Urine Blood Dipstick Moderate Ur RBC TNTC /HPF Ur WBC TNTC /HPF Ur WBC Clumps Present Ur Bacteria 2+ Ur Mucous 1+ Ur Amorph Trace Ur Epithelial Cells 2-5 /HPF Ur Squamous Epithelial Cells 20-50 /HPF . Radiology results: Reviewed radiologist's report, 5 mm stone in the proximal left ureter contributes to moderate left hydronephrosis. Small bilateral renal stones. No right hydronephrosis. No evidence of bowel obstruction or gross bowel wall thickening. Normal appendix.. Reexamination/ Reevaluation Notes: HR improved after rest and pain control. Initial difficulty obtaining IV, patient declined any further attempts or fluids, states she is handling PO fluids well. Patient agrees she wishes to try passing the stone at home. She states that while she is allergic to multiple antibiotics, she can tolerate a few when taken with Benadryl. She states she is able to take Macrobid and Cipro if she takes them with Benadryl but they seem to not work on her infections anymore. She states she can tolerate Levaquin, when taken with Benadryl. Patient is afebrile here., discussed the concern for large stone in setting of UTI and given strict return precautions.. Impression and Plan Diagnosis Acute UTI - Discharge, Emergency medicine, Medical Left ureteral stone - Discharge, Emergency medicine, Medical Plan Condition: Improved, Stable. Disposition: Medically cleared, Discharged Admit/Transfer/Discharge: Discharge (Order): Start: 11/27/2019 4:52 EDT, Discharge to: Home. Prescriptions: Prescription [facility]: acetaminophen-HYDROcodone 325 mg-5 mg oral tablet (Prescribe): 1 Tab, Oral, Q6H, for 3 Day(s), PRN: for pain, 10 Tab, 0 Refill(s) promethazine 25 mg oral tablet (Prescribe): 1 Tab, Oral, Q6H, for 5 Day(s), PRN: as needed for nausea/vomiting, 20 Tab, 0 Refill(s) Benadryl 25 mg oral tablet (Prescribe): 1 Tab, Oral, Q6H, PRN: as needed for itching, 30 Tab, 0 Refill(s) Levaquin 750 mg oral tablet (Prescribe): 1 Tab, Oral, [id number], for 7 Day(s), 7 Tab, 0 Refill(s). Patient was given the following educational materials: Kidney Stones, Urinary Tract Infection, Adult. Follow up with: NICOLE ERNST Within As needed; LEVAR SALTER Within 2 to 3 days Call for follow up appointment with urology. Counseled: Patient, Regarding diagnosis, Regarding diagnostic results, Regarding treatment plan, Regarding prescription, Patient indicated understanding of instructions. documented in this encounter Plan of Treatment Not on file documented as of this encounter Visit Diagnoses Not on filedocumented in this encounter
--- OUTSIDE RECORDS SUMMARY | 2025-06-07 16:17 | XMS_ITS | Encounter Summary ---
Author Organization [employer] ([place], [place], [place], [place]) Address [address] [place] [address] Care Team Providers Care Auto Garage Mechanic Name Role Phone Unavailable Primary Care Provider Unavailabl e Encounter Details Date Type Department Care Team (Late st Contact Info) Description 11/27/2019 Transcribed Document [facility] [place] [address] [place] [address] ProviderJulio MD [address] [place] [address] 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 Tobacco Use Types Packs/Day Years [...] ProviderMD - 11/27/2019 1:56 AM CDT ED Assessment Entered On: 11/27/2019 3:44 EDT Performed On: 11/27/2019 3:42 EDT by Sharri Espinoza, HOME MORTGAGE DISCLOSURE ACT SPECIALIST Quick Look Assessment Level of Consciousness : Alert, Awake Affect/Behavior : Appropriate, Calm, Cooperative Orientation : Oriented x 4 Skin Temperature : Warm Skin Description : Normal for ethnicity Sharri Espinoza RN - 11/27/2019 3:42 EDT ED General-Functional Assess Information Obtained From : Patient Preferred Communication Mode : Verbal Communication Barrier : None Primary Language : Mosotho Any Spiritual/Cultural Needs or Requests : No Currently in Unsafe Situation : No Sharri Espinoza RN - 11/27/2019 3:42 EDT Social Habits Smoking Status : Never (less than 100 in lifetime; none in last 30 days) Smokeless Tobacco Status : Smokeless tobacco user within last 30 days Desires Tobacco Cessation Medication : No Reason for No Tobacco Cessation Medication : Refuses FDA approved medications Desires Tobacco Cessation Calc : 1 Sharri Espinoza RN - 11/27/2019 3:42 EDT 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 (As Of: 11/27/2019 03:44:25 EDT) Tobacco: Use in Last 12 Months: Snuff/Dip. Packs/Tins Daily: 0.5. (Last Updated: 02/24/2015 00:10:45 EDT by GURINDER ABARCA, EVE) Alcohol: Alcohol Use History No. (Last Updated: 02/24/2015 00:10:54 EDT by GURINDER ABARCA, RN) Substance Abuse: Use in Last 12 Months: No. (Last Updated: 02/24/2015 00:11:03 EDT by GURINDER ABARCA, RN) Gastrointestinal ED Gastrointestinal Assessment WDL : WDL with exceptions Gastrointestinal Symptoms : Diarrhea, Nausea, Vomiting Sharri Espinoza RN - 11/27/2019 3:42 EDT Genitourinary Assessment, ED Genitourinary Assessment WDL : WDL with exceptions Genitourinary Symptoms : Hesitancy, Urgency with urination Genitourinary Assessment Comment : hx of kidney stones. pt states that she has pressure and pain in back when urinating Sharri Espinoza RN - 11/27/2019 3:42 EDT Electronically signed by Rachel Littlejohn Conversion [employer] Ax Consultant Cerner at 12/29/2022 4:13 PM CDT documented in this encounter Plan of Treatment Not on file documented as of this encounter Visit Diagnoses Not on filedocumented in this encounter
--- OUTSIDE RECORDS SUMMARY | 2025-06-07 16:17 | XMS_ITS | Encounter Summary ---
Author Organization [employer] ([place], [place], [place], [place]) Address [address] [place] [address] Care Team Providers Care Copper Plate Printer Name Role Phone Unavailable Primary Care Provider Unavailabl e Encounter Details Date Type Department Care Team (Late st Contact Info) Description 11/27/2019 Transcribed Document [facility] Radiology [address] [place] [address] Patricia Messer MD One [facility] Dept [place] [address] 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 Tobacco Use Types Packs/Day Years Used Date Smoking Tobacco: Never Assessed Comments Unknown Sex and Gender Information Value Date Recorded Sex Assigned at Female 03/12/2022 2:43 PM CDT Legal Sex Female 5:44 PM CDT Gender Identity Female 03/12/2022 2:43 PM CDT Sexual Orientation Not on file documented as of this encounter Miscellaneous Notes * Cerner Conversion Note - Patricia Messer MD - 11/27/2019 5:51 AM EDT documented in this encounter Plan of Treatment Not on file documented as of this encounter Visit Diagnoses Not on filedocumented in this encounter
--- OUTSIDE RECORDS SUMMARY | 2025-06-07 16:18 | XMS_ITS | Encounter Summary ---
Author Organization [employer] ([place], [place], [place], [place]) Address [address] [place] [address] Care Team Providers Care Construction Coordinator Name Role Phone Unavailable Primary Care Provider Unavailabl e Encounter Details Date Type Department Care Team (Late st Contact Info) Description 01/27/2019 Transcribed Document [facility] [place] Family Medicine [address] [place] [address] ProviderJulio MD [address] [place], [place] [id number] 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 Tobacco Use Types Packs/Day Years [...] Conversion Note - Julio Van MD - 01/27/2019 10:16 PM CDT ED Triage Entered On: 01/27/2019 22:34 EDT Performed On: 01/27/2019 22:29 EDT by Nicholas White REGISTERED_NURSE_EMERGENCY_[facility]OO ED Triage Across the Room Triage Date/Time : 01/27/2019 22:29 EDT Chief Complaint : c/o left posterior flank pain for 3 days, Hx of stent Nicholas White REGISTERED_NURSE_EMERGENCY_ROO - 01/27/2019 22:29 EDT DCP GENERIC CODE Tracking Acuity : 3 - Urgent Tracking Group : [facility] ED Sandy White Nicholas, REGISTERED_NURSE_EMERGENCY_[place] - 01/27/2019 22:29 EDT Mode of Arrival : Ambulatory Transported to ED by : Private vehicle To Room Via : Ambulate Accompanied By : Unaccompanied ED Vital Signs : Document Height & Weight : Document ED Allergies : Document ED Reason for Visit : Document ED Triage Treatments : Document Last Menstrual Period : 02/27/2018 EDT Status : Hysterectomy Tetanus Immunization : Less than 5 years Nicholas White REGISTERED_NURSE_EMERGENCY_[place] - 01/27/2019 22:29 EDT Infectious Disease History Infectious Disease History : Chicken pox/Shingles, Influenza Active Surveillance Screen Assessment : Patient does not meet any of above criteria Active Surveillance Screen Negative : Yes Fever/Chills Last 48 Hours : No Travel To Regions with Travel Advisories : No Travel Outside [place] Within Last 30 Days : No Contact With Traveler to Advisory Region : No Exposure to Contagious Illness : No Tuberculosis Symptoms : None Nicholas White REGISTERED_NURSE_EMERGENCY_[place] - 01/27/2019 22:29 EDT Vital Signs ED Temperature Source : Oral Temperature Mode : Fahrenheit Temperature, Fahrenheit : 99.5 Deg F ED Pain : Yes Clinical Temperature, C : 37.5 Deg C Oxygen Therapy Mode : Room air Peripheral Pulse Rate : 110 bpm (HI) Respiratory Rate : 20 Breaths/Min Systolic Blood Pressure : 157 mmHg (HI) Diastolic Blood Pressure : 101 mmHg (HI) Nicholas White REGISTERED_NURSE_EMERGENCY_[place] - 01/27/2019 22:29 EDT Allergy (As Of: 01/27/2019 22:34:58 EDT) Allergies (Active) most abx Estimated Onset Date: Unspecified ; Created By: Hudson_MANPREET patterson; Reaction Status: Active ; Category: Drug ; Substance: most abx ; Type: Allergy ; Updated By: MANPREET Magdaleno; Reviewed Date: 01/27/2019 22:30 EDT amoxicillin-clavulanate Estimated Onset Date: Unspecified ; Reactions: SOA, SOA ; Created By: MANPREET Magdaleno; Reaction Status: Active ; Category: Drug ; Substance: amoxicillin-clavulanate ; Type: Allergy ; Updated By: MANPREET Magdaleno; Reviewed Date: 01/27/2019 22:30 EDT cefaclor Estimated Onset Date: Unspecified ; Created By: MANPREET Magdaleno; Reaction Status: Active ; Substance: cefaclor ; Updated By: MANPREET Magdaleno; Reviewed Date: 01/27/2019 22:30 EDT ciprofloxacin Estimated Onset Date: Unspecified ; Reactions: HIVES, HIVES ; Created By: MANPREET Magdaleno; Reaction Status: Active ; Substance: ciprofloxacin ; Updated By: MANPREET Magdaleno; Reviewed Date: 01/27/2019 22:30 EDT codeine Estimated Onset Date: Unspecified ; Created By: LORE JARQUIN RN; Reaction Status: Active ; Category: Drug ; Substance: codeine ; Type: Allergy ; Updated By: LORE JARQUIN RN; Reviewed Date: 01/27/2019 22:30 EDT doxycycline Estimated Onset Date: Unspecified ; Reactions: RASH/SOA, RASH/SOA ; Created By: MANPREET Magdaleno; Reaction Status: Active ; Category: Drug ; Substance: doxycycline ; Type: Allergy ; Updated By: MANPREET Magdaleno; Reviewed Date: 01/27/2019 22:30 EDT gatifloxacin Estimated Onset Date: Unspecified ; Created By: MANPREET Magdaleno; Reaction Status: Active ; Substance: gatifloxacin ; Updated By: MANPREET Magdaleno; Reviewed Date: 01/27/2019 22:30 EDT Keflex Estimated Onset Date: Unspecified ; Created By: Cathi Green RN; Reaction Status: Active ; Category: Drug ; Substance: Keflex ; Type: Allergy ; Updated By: Cahti Green RN; Reviewed Date: 01/27/2019 22:30 EDT midazolam Estimated Onset Date: Unspecified ; Created By: MANPREET Magdaleno; Reaction Status: Active ; Category: Drug ; Substance: midazolam ; Type: Allergy ; Updated By: MANPREET Magdaleno; Reviewed Date: 01/27/2019 22:30 EDT nitrofurantoin Estimated Onset Date: Unspecified ; Reactions: RASH/SOA, RASH/SOA ; Created By: MANPREET Magdaleno; Reaction Status: Active ; Category: Drug ; Substance: nitrofurantoin ; Type: Allergy ; Updated By: MANPREET Magdaleno; Reviewed Date: 01/27/2019 22:30 EDT ondansetron Estimated Onset Date: Unspecified ; Created By: MANPREET Magdaleno; Reaction Status: Active ; Category: Drug ; Substance: ondansetron ; Type: Allergy ; Updated By: MANPREET Magdaleno; Reviewed Date: 01/27/2019 22:30 EDT sulfa drugs Estimated Onset Date: Unspecified ; Created By: MANPREET Magdaleno; Reaction Status: Active ; Substance: sulfa drugs ; Updated By: MANPREET Magdaleno; Reviewed Date: 01/27/2019 22:30 EDT Toradol Estimated Onset Date: Unspecified ; Created By: Cathi Green RN; Reaction Status: Active ; Category: Drug ; Substance: Toradol ; Type: Allergy ; Updated By: Cathi Green RN; Reviewed Date: 01/27/2019 22:30 EDT Diagnosis Control ED (As Of: 01/27/2019 22:34:58 EDT) Problems(Active) Kidney stones (SNOMED CT :851878581 ) Name of Problem: Kidney stones ; Recorder: MANFRED CAI PA; Confirmation: Confirmed ; Classification: Medical ; Code: [id number] ; Contributor System: [employer] ; Last Updated: 10/24/2015 13:26 EST ; Life Cycle Date: 10/24/2015 ; Life Cycle Status: Active ; Responsible Provider: MAFNRED CAI PA; Vocabulary: SNOMED CT PTSD (post-traumatic stress disorder) (SNOMED CT :39972637 ) Name of Problem: PTSD (post-traumatic stress disorder) ; Recorder: MANFRED CAI PA; Confirmation: Confirmed ; Classification: Medical ; Code: [id number] ; Contributor System: [employer] ; Last Updated: 10/24/2015 13:26 EST ; Life Cycle Date: 10/24/2015 ; Life Cycle Status: Active ; Responsible Provider: MANFRED CAI PA; Vocabulary: SNOMED CT Diagnoses(Active) Flank pain Date: 01/27/2019 ; Diagnosis Type: Reason For Visit ; Confirmation: Complaint of ; Clinical Dx: Flank pain ; Classification: Medical ; Clinical Service: Emergency medicine ; Code: PNED ; Probability: 0 ; Diagnosis Code: [id number] ED Height and Weight Height Source : Stated Height Entry Format : Russell Height, Feet : 5 ft(Converted to: 152 cm, 60 Inch) Height, Inches : 2 Inch(Converted to: 0 ft 2 Inch, 5.08 cm) Clinical Height : 157.48 cm Weight Source, ED : Critical estimated dosing weight Weight Entry Format : Russell Weight, Pounds : 210 lb Clinical Dosing Weight : 95.45 kg Body Surface Area (BSA) : 1.95 m2 Body Mass Index : 38.5 kg/m2 (HI) [place] Body Weight (IBW) : 49.73 kg Nicholas White REGISTERED_NURSE_EMERGENCY_[facility]OO - 01/27/2019 22:29 EDT Pain Assessment Pain Assessment : Initial assessment Pain Scale Used : 0-10 Scale Location : Flank, left Nicholas White REGISTERED_NURSE_EMERGENCY_[place] - 01/27/2019 22:29 EDT Pain Scale Intensity : 8 Nicholas White REGISTERED_NURSE_EMERGENCY_[facility]OO - 01/27/2019 22:29 EDT Image 4 - Images currently included in the form version of this document have not been included in the text rendition version of the form. Triage Initial Exam and Interventions, ED Level of Consciousness : Alert Affect/Behavior : Calm, Cooperative Orientation : Oriented x 4 Skin Temperature : Warm Current/Recent Head Injury : No Nicholas White REGISTERED_NURSE_EMERGENCY_[place] - 01/27/2019 22:29 EDT documented in this encounter Plan of Treatment Not on file documented as of this encounter Visit Diagnoses Not on filedocumented in this encounter
--- OUTSIDE RECORDS SUMMARY | 2025-06-07 16:18 | XMS_ITS | Encounter Summary ---
Author Organization [employer] ([place], [place], [place], [place]) Address [address] [place] [address] Care Team Providers Care Wind Turbine Installer Name Role Phone Unavailable Primary Care Provider Unavailabl e Encounter Details Date Type Department Care Team (Late st Contact Info) Description 11/27/[address] [facility] [place] Family Medicine [address] [place] [address] ProviderJulio MD [address] [place] [address] 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 Tobacco Use Types [...] Note - Julio Van MD - 11/27/2019 4:56 AM CDT [facility] [address] [place] [address] OREN KIM :1985 Visit Time:11/27/2019 Your Visit Summary Your Care Team Primary Provider: SENDY CHANG MD Secondary Provider: Your Diagnosis Abdominal pain Acute UTI Left ureteral stone Medical Information You may obtain a copy [...] do next Follow-Up Appointments Follow Up with LEVAR SALTER When Within 2 to 3 days Comments Call for follow up appointment with urology Where: [address] [facility] [place] [address] Business (1) Follow Up with NICOLE ERNST When Within As needed Where: [address] [address] Business (1) Allergies most abx Keflex Toradol amoxicillin-clavulanate (SOA, SOA) cefaclor ciprofloxacin (HIVES, HIVES) codeine doxycycline (RASH/SOA, RASH/SOA) gatifloxacin midazolam nitrofurantoin (RASH/SOA, RASH/SOA) ondansetron sulfa drugs Immunizations This Visit No Immunizations Found Medications What How Much When Instructions Next Dose acetaminophen-hydrocodone (acetaminophen-HYDROcodone 325 mg-5 mg oral tablet) 1 Tablet(s) Oral Every 6 Hours as needed for for pain Duration: 3 Day(s) Printed Prescription diphenhydrAMINE (Benadryl 25 mg oral tablet) 1 Tablet(s) Oral Every 6 Hours as needed for as needed for itching Printed Prescription levoFLOXacin (Levaquin 750 mg oral tablet) 1 Tablet(s) Oral Interval Every 24 Hours Duration: 7 Day(s) Printed Prescription promethazine (promethazine 25 mg oral tablet) 1 Tablet(s) Oral Every 6 Hours as needed for as needed for nausea/vomiting Duration: 5 Day(s) Printed Prescription promethazine (promethazine 25 mg oral tablet) 1 Tablet(s) Oral Every 6 Hours as needed for for nausea/vomiting albuterol (albuterol HFA 90 mcg/ inh inhalation aerosol) Inhalation Four Times A Day busPIRone (BuSpar) Oral Two Times A Day cefdinir (cefdinir 300 mg oral capsule) 1 Capsule(s) Oral Every 12 hours Duration: 14 Day(s) gabapentin Oral ibuprofen (ibuprofen 800 mg oral tablet) ibuprofen (ibuprofen 800 mg oral tablet) nystatin topical (nystatin 100,000 units/ g topical [...] This Visit (last charted value for your 11/27/2019 visit) Hematology 11/27/2019 3:22 AM WBC: 12.9 K/uL -- Normal range between ( 4.0 and 10.0 ) RBC: 4.91 Million/uL -- Normal range between ( 3.93 and 5.22 ) Hct: 40.6 % -- Normal range between ( 34.1 and 44.9 ) Hgb: 13.4 Gram/dL -- Normal range between ( 11.2 and 15.7 ) Platelet Count: 392 K/uL -- Normal range between ( 163 and 369 ) MCH: 27.3 pg -- Normal range between ( 25.6 and 32.2 ) MCHC: 33.0 Gram/dL -- Normal range between ( 32.2 and 36.5 ) MCV: 82.7 fL -- Normal range between ( 79.0 and 94.8 ) Slide Review: No Eos %: 2.6 % -- Normal range between ( 0.0 and 7.0 ) [place] #: 1.05 K/uL -- Normal range between ( 0.16 and 1.00 ) Eos #: .34 K/uL -- Normal range between ( .00 and .80 ) [place] %: 8.1 % -- Normal range between ( 3.0 and 9.0 ) Baso %: 0.2 % -- Normal range between ( 0.0 and 2.0 ) Baso #: 0.03 K/uL -- Normal range between ( 0.00 and 0.20 ) RDW: 14.8 % -- Normal range between ( 11.6 and 14.4 ) Neut %: 71.2 % -- Normal range between ( 34.0 and 71.0 ) Neut #: 9.18 K/uL -- Normal range between ( 1.56 and 6.13 ) Lymph %: 17.6 % -- Normal range between ( 19.0 and 53.0 ) Lymph #: 2.27 K/uL -- Normal range between ( 1.18 and 3.74 ) MPV: 10.1 fL -- Normal range between ( 9.4 and 12.4 ) IG#: 0 x10(3)/uL IG%: 0 % -- Normal range between ( 0 and 1 ) Urinalysis 11/27/2019 2:07 AM Ur RBC: TNTC /HPF Urine Nitrite: Negative Urine Leukocyte Esterase: Small Ur Epithelial Cells: 2-5 /HPF Urine Appearance: Cloudy Urine Glucose Dipstick: Negative Urine Blood Dipstick: Moderate Urine Type: U CleanCatch Urine Urobilinogen Dipstick: 0.2 EU/dL Urine Protein Dipstick: Trace Ur Amorph: Trace Ur Bacteria: 2+ Ur WBC Clumps: Present Ur Squamous Epithelial Cells: 20-50 /HPF Urine Color: Yellow Ur WBC: TNTC /HPF Urine Ketones Dipstick: Negative Ur Mucous: 1+ Urine pH Dipstick: 6.0 -- Normal range between ( 6.0 and 8.0 ) Urine Bilirubin Dipstick: Negative Urine Specific [place]: >=1.030 -- Normal range between ( 1.005 and 1.030 ) General Chemistry 11/27/2019 3:22 AM Creatinine Level: 1.11 mg/dL -- Normal range between ( 0.55 and 1.02 ) Sodium Level: 143 mmol/L -- Normal range between ( 136 and 145 ) Potassium Level: 3.7 mmol/L -- Normal range between ( 3.5 and 5.1 ) Chloride Level: 106 mmol/L -- Normal range between ( 98 and 107 ) Carbon Dioxide Level: 26 mmol/L -- Normal range between ( 21 and 32 ) Anion Gap: 15 -- Normal range between ( 9 and 20 ) Bilirubin Total: 0.3 mg/dL -- Normal range between ( 0.2 and 1.0 ) A/G Ratio: 0.7 -- Normal range between ( 1.1 and 2.5 ) ALT: 30 Units/Liter -- Normal range between ( 14 and 59 ) AST: 19 Units/Liter -- Normal range between ( 15 and 37 ) Globulin: 4.2 Gram/dL -- Normal range between ( 1.5 and 4.5 ) Alk Phos: 88 Units/Liter -- Normal range between ( 46 and 116 ) Bun/Creatinine: 11.712 Calcium Level: 8.6 mg/dL -- Normal range between ( 8.6 and 10.1 ) eGFR : 68 mL/min/1.73m2 eGFR NonAfrican: 56 mL/min/1.73m2 Glucose Level: 143 mg/dL -- Normal range between ( 74 and 106 ) Blood Urea Nitrogen: 13 mg/dL -- Normal range between ( 7 and 18 ) Protein Total: 7.3 Gram/dL -- Normal range between ( 6.4 and 8.2 ) Albumin Level: 3.1 Gram/dL -- Normal range between ( 3.4 and 5.0 ) [facility] 11/27/2019 2:53 AM HCG Urine Qualitative: Negative [employer] Urinary Tract Infection, Adult A [...] treat less common causes of UTI. ??? Kttm-bns-nwtqkif medicines to treat pain. ??? Drinking enough water to stay hydrated. Follow these instructions at home: ??? Take znja-cge-byajjdu and prescription medicines only as told by [...] 06/09/2006 Document Revised: 02/22/2018 Document Reviewed: 07/20/2016 [employer] Interactive Patient Education ?? 2019 [employer] Kidney Stones Kidney stones (urolithiasis) are solid, [...] kidney stones in the future. ??? Take fffq-vcq-dgegrna and prescription medicines only as told by [...] 08/30/2006 Document Revised: 02/10/2018 Document Reviewed: 02/12/2017 [employer] Interactive Patient Education ?? 2019 [employer]. Emergency Awareness and Preventative Care STROKE is [...] Assistance with quitting is available by contacting 8-065-QPTD-NOW. This is a free resource providing counseling, [...] was given the opportunity to ask questions. Patient/Charger Operator Name: Patient/Charger Operator Signature: Relationship to Patient: Clinician/Hospital Charger Operator Signature: Please Provide a Telephone Number Where You Can Be Reached: Is it Permissible To Leave a Message? Date: documented in this encounter Plan of Treatment Not on file documented as of this encounter Visit Diagnoses Not on filedocumented in this encounter
--- OUTSIDE RECORDS SUMMARY | 2025-06-07 16:18 | XMS_ITS | Encounter Summary ---
Author Organization [employer] ([place], [place], [place], [place]) Address [address] [place] [address] Care Team Providers Care Licensed Funeral Director Name Role Phone Unavailable Primary Care Provider Unavailabl e Encounter Details Date Type Department Care Team (Late st Contact Info) Description 11/30/2019 Transcribed Document [facility] [place] [address] [place] [address] ProviderJulio MD [address] [place] [address] 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 Tobacco Use Types Packs/Day Years Used Date Smoking Tobacco: Never Assessed Comments Unknown Sex and Gender Information Value Date Recorded Sex Assigned at Female 03/12/2022 2:43 PM CDT Legal Sex Female 5:44 PM CDT Gender Identity Female 03/12/2022 2:43 PM CDT Sexual Orientation Not on file documented as of this encounter Miscellaneous Notes * [employer] Conversion Note - Julio ProviderMD - 11/30/2019 3:37 AM CDT ED Assessment Entered On: 11/30/2019 3:57 EDT Performed On: 11/30/2019 3:56 EDT by Vero Mitchell RN ED Quick Look Assessment Level of Consciousness : Alert Affect/Behavior : Appropriate Orientation : Oriented x 4 Skin Temperature : Warm Skin Description : Dry Vero Mitchell RN - 11/30/2019 3:56 EDT ED General-Functional Assess Information Obtained From : Patient Preferred Communication Mode : Verbal Communication Barrier : None Primary Language : Mongolian Any Spiritual/Cultural Needs or Requests : No Currently in Unsafe Situation : No Vero Mitchell RN - 11/30/2019 3:56 EDT Social Habits Smoking Status : Never (less than 100 in lifetime; none in last 30 days) Smokeless Tobacco Status : Smokeless tobacco user within last 30 days Desires Tobacco Cessation Medication : No Reason for No Tobacco Cessation Medication : ED/procedural patient only Desires Tobacco Cessation Calc : 1 Vero Mitchell RN - 11/30/2019 3:56 EDT 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 (As Of: 11/30/2019 03:57:02 EDT) Tobacco: Use in Last 12 Months: Snuff/Dip. Packs/Tins Daily: 0.5. (Last Updated: 02/24/2015 00:10:45 EDT by GURINDER ABARCA, EVE) Alcohol: Alcohol Use History No. (Last Updated: 02/24/2015 00:10:54 EDT by GURINDER ABARCA, RN) Substance Abuse: Use in Last 12 Months: No. (Last Updated: 02/24/2015 00:11:03 EDT by GURINDER ABARCA, RN) Neurologic ASMT, ED Neurologic Assessment WDL : WDVero Clayton RN - 11/30/2019 3:56 EDT documented in this encounter Plan of Treatment Not on file documented as of this encounter Visit Diagnoses Not on filedocumented in this encounter
--- OUTSIDE RECORDS SUMMARY | 2025-06-07 16:18 | XMS_ITS | Encounter Summary ---
Author Organization [employer] ([place], [place], [place], [place]) Address [address] [place] [address] Care Team Providers Care Well Surveying Engineer Name Role Phone Unavailable Primary Care Provider Unavailabl e Encounter Details Date Type Department Care Team (Late st Contact Info) Description 11/30/2019 Transcribed Document [facility] [place] Family Medicine [facility] [place] [address] ProviderJulio MD [address] [place] [address] 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 Tobacco Use Types Packs/Day Years [...] Conversion Note - Julio Van MD - 11/30/2019 9:54 AM CDT ED Discharge Entered On: 11/30/2019 9:55 EDT Performed On: 11/30/2019 9:54 EDT by Fabiana Cee RN Discharge Process Patient Disposition : Transfer Personal Belongings With Patient : Yes Patient Education Completed : Yes IV Discontinued : No Nursing Documentation Completed : Yes Fabiana Cee RN - 11/30/2019 9:54 EDT ED Discharge Discharge To : Acute care facility Name of Receiving Facility/Provider : [facility]/ Dr Rebolled[facility] Mode Of Departure : Ambulance/BLS Accompanied By : clinical project assistant Nurse Report Accepted By : Rupert Valladares, RN Nurse Report Acceptance Time : 11/30/2019 9:15 EDT Fabiana Cee RN - 11/30/2019 9:54 EDT Electronically signed by Eron [facility] Conversion Aerosol Supervisor Cerner at 12/29/2022 4:03 PM CDT documented in this encounter Plan of Treatment Not on file documented as of this encounter Visit Diagnoses Not on filedocumented in this encounter
--- OUTSIDE RECORDS SUMMARY | 2025-06-07 16:18 | XMS_ITS | Encounter Summary ---
Author Organization [employer] ([place], [place], [place], [place]) Address [address] [place] [address] Care Team Providers Care Staff Psychologist Name Role Phone Unavailable Primary Care Provider Unavailabl e Encounter Details Date Type Department Care Team (Late st Contact Info) Description 11/30/2019 Transcribed Document [facility] [place] [address] [place] [address] ProviderJulio MD [address] [place] [address] 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 Tobacco Use Types Packs/Day Years [...] Julio ProviderMD - 11/30/2019 3:37 AM CDT [place] Suicide Severity Rating Scale (C-SSRS) Entered On: 11/30/2019 3:57 EDT Performed On: 11/30/2019 3:56 EDT by Vero Mitchell RN [place] Suicide Severity Rating Scale (C-SSRS) CSSRS Past Month Wish to be : No CSSRS Past Month Suicidal Thoughts : No CSSRS Lifetime Suicide Behavior : No Suicide Severity Rating Score : 0 Suicide Severity Rating : No Additional Care Required at this time Vero Mitchell RN - 11/30/2019 3:56 EDT Electronically signed by Eron [facility] Conversion Vice President Of Contracts Cerner at 12/29/2022 4:10 PM CDT documented in this encounter Plan of Treatment Not on file documented as of this encounter Visit Diagnoses Not on filedocumented in this encounter
--- OUTSIDE RECORDS SUMMARY | 2025-06-07 16:18 | XMS_ITS | Encounter Summary ---
Author Organization [employer] ([place], [place], [place], [place]) Address [address] [place] [address] Care Team Providers Care Regulatory Specialist Name Role Phone Unavailable Primary Care Provider Unavailabl e Encounter Details Date Type Department Care Team (Late st Contact Info) Description 02/27/2020 Transcribed Document [facility] [place] [address] [place] [address] ProviderJulio MD [address] [place] [address] 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 Tobacco Use Types Packs/Day Years [...] Conversion Note - Julio Van MD - 02/27/2020 5:10 AM CDT ED Discharge Entered On: 02/27/2020 5:10 EDT Performed On: 02/27/2020 5:10 EDT by Candelaria Albert RN Discharge Process Patient Disposition : Discharge Patient Education Completed : Yes Teaching Evaluation : Verbalizes understanding IV Discontinued : Not applicable Nursing Documentation Completed : Yes Candelaria Albert RN - 02/27/2020 5:10 EDT ED Discharge Discharge To : Home with ambulatory/outpatient follow-up Mode Of Departure : Ambulatory Accompanied By : Unaccompanied Discharge Instructions Reviewed With, Opportunity For Questions Given : Patient Prescriptions Given to Patient : Yes Number of Prescriptions Given : 1 Medications Given to Patient : Yes Number of Medications Given : 2 Candelaria Albert RN - 02/27/2020 5:10 EDT Electronically signed by Rachel Littlejohn Conversion Communications Field Technician Cerner at 12/29/2022 4:25 PM CDT documented in this encounter Plan of Treatment Not on file documented as of this encounter Visit Diagnoses Not on filedocumented in this encounter
--- OUTSIDE RECORDS SUMMARY | 2025-06-07 16:18 | XMS_ITS | Encounter Summary ---
Author Organization [employer] ([place], [place], [place], [place]) Address [address] [place] [address] Care Team Providers Care Sales Representative Trainee Name Role Phone Unavailable Primary Care Provider Unavailabl e Encounter Details Date Type Department Care Team (Late st Contact Info) Description 11/28/2019 Transcribed Document [facility] [place] [address] [place] [address] ProviderJulio MD [address] [place] [address] 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 Tobacco Use Types Packs/Day Years [...] Conversion Note - Julio ProviderMD - 11/28/2019 4:46 AM CDT Patient: OREN KIM Age: 34 years Sex: Female : 1985 Associated Diagnoses: Flank pain Author: CODIE RUIZ MD-EMR Basic Information Additional information: Chief Complaint from Nursing Triage Note : Chief Complaint 11/28/2019 4:24 EDT Chief Complaint Pt was here 1 day ago dx with UTI and kidney stone, states the pain is much worse and she has started vomiting. 11/27/2019 2:01 EDT Chief Complaint Seen last week for UTI. States pain is getting worse . History of Present Illness 34 yo female with flank pain and vomiting. Vomited x 3 since 9pm. Febrile. Has known UTI with left ureteral stone, 5mm. States she has thrown up phenergan. Has had one dose of Levaquin. Review of Systems Constitutional symptoms: Negative except as documented in HPI. Skin symptoms: Negative except as documented in HPI. Eye symptoms: Negative except as documented in HPI. ENMT symptoms: Negative except as documented in HPI. Respiratory symptoms: Negative except as documented in HPI. Cardiovascular symptoms: Negative except as documented in HPI. Gastrointestinal symptoms: Negative except as documented in HPI. Genitourinary symptoms Musculoskeletal symptoms: Negative except as documented in HPI. Neurologic symptoms: Negative except as documented in HPI. Psychiatric symptoms: Negative except as documented in HPI. Health Status Allergies: Allergic Reactions (All) Severity Not Documented most abx - No [...] reactions were documented. Toradol- No reactions were documented. Canceled/Inactive Reactions (All) Severity Not Documented Acetaminophen-HYDROcodone- Itch-x and itch-x. Acetaminophen-oxyCODONE- Hives.. Medications: (Selected) Inpatient Medications Ordered Normal Saline 1,000 mL: 1,000 mL/Hr, IntraVENous Phenergan: 25 mg, IV Push, 1-Time morphine: 4 mg, IV Push, 1-Time Prescriptions Prescribed Benadryl 25 mg oral tablet: 1 Tab, Oral, Q6H, PRN: as needed for itching, 30 Tab, 0 Refill(s) Levaquin 750 mg oral tablet: 1 Tab, Oral, [id number], for 7 Day(s), 7 Tab, 0 Refill(s) acetaminophen-HYDROcodone 325 mg-5 mg oral tablet: 1 Tab, Oral, Q6H, for 3 Day(s), PRN: for pain, 10 Tab, 0 Refill(s) nystatin 100,000 units/g topical powder: 1 Application, Topical, BID, apply to affected areas until rash resolves, 60 Gram, 0 Refill(s) promethazine 25 mg oral tablet: 1 Tab, Oral, Q6H, for 5 Day(s), PRN: as needed for nausea/vomiting, 20 Tab, 0 Refill(s) Documented Medications Documented BuSpar: Oral, BID, 0 Refill(s) Diflucan: Daily, 0 Refill(s) Paxil 40 mg oral tablet: 1 Tab, Oral, Daily, 0 Refill(s) albuterol HFA 90 mcg/inh inhalation aerosol: Puff, Inhalation, QID, 0 Refill(s) gabapentin: Oral, 0 Refill(s) ibuprofen 800 mg oral tablet: 0 Refill(s) tiZANidine 6 mg oral capsule: 1 Cap, Oral, TID, 90 Cap, 0 Refill(s). Past Medical/ Family/ 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 Surgical history: Lithotripsy ([id number]).. Family history: No family history items have [...] Physical Examination Vital Signs Vital Signs/Vital Measures 11/28/2019 4:24 EDT Blood Pressure Location Arm, right upper Blood Pressure Source Non-Invasive BP Device Systolic Blood Pressure 145 mmHg HI Diastolic Blood Pressure 87 mmHg Temperature Source Oral Temperature Mode Fahrenheit Temperature, Fahrenheit 101.5 Deg F HI Clinical Temperature, C 38.6 Deg C Peripheral Pulse Rate 140 bpm HI Respiratory Rate 20 Breaths/Min Oxygen Saturation 96 % Oxygen Therapy Mode Room air 11/27/2019 5:07 EDT Systolic Blood Pressure 158 mmHg HI Diastolic Blood Pressure 75 mmHg Peripheral Pulse Rate 89 bpm Respiratory Rate 20 Breaths/Min Oxygen Saturation 98 % Oxygen Therapy Mode Room air 11/27/2019 2:57 EDT Systolic Blood Pressure 176 mmHg HI Diastolic Blood Pressure 92 mmHg HI Peripheral Pulse Rate 107 bpm HI Respiratory Rate 18 Breaths/Min Oxygen Saturation 98 % Oxygen Therapy Mode Room air 11/27/2019 2:01 EDT Blood Pressure Location Arm, [...] Oxygen Therapy Mode Room air . Measurements 11/28/2019 4:24 EDT Height Source Stated Height Entry Format [place] Height/Length, [place] (ft) 5 ft Height/Length [place] 2 Inch CLINICALHEIGHT 157.48 cm [place] Body Weight 49.73 kg Weight Source, ED Critical estimated dosing weight Weight Entry Format [place] Weight [place] lb 230 lb CLINICALWEIGHT 104.55 kg Body Surface Area (BSA) 2.03 m2 Body Mass Index 42.2 kg/m2 >HHI 11/27/2019 2:01 EDT Height Source Stated Height Entry Format [place] Height/Length, [place] (ft) 5 ft Height/Length [place] 2 Inch CLINICALHEIGHT 157.48 cm [place] Body Weight 49.73 kg Weight Source, ED Critical estimated dosing weight Weight Entry Format [place] Weight [place] lb 230 lb CLINICALWEIGHT 104.55 kg Body Surface Area (BSA) 2.03 m2 Body Mass Index 42.2 kg/m2 >HHI . Oxygen Saturation 11/28/2019 4:24 EDT Oxygen Saturation 96 % 11/27/2019 5:07 EDT Oxygen Saturation 98 % 11/27/2019 2:57 EDT Oxygen Saturation 98 % 11/27/2019 2:01 EDT Oxygen Saturation 97 % . General: Alert, no acute distress. Skin: Warm, dry. Head: Normocephalic, atraumatic. Eye: Pupils are equal, round and reactive to light, extraocular movements are intact. Cardiovascular: Regular rate and rhythm, No murmur. Respiratory: Lungs are clear to auscultation. Gastrointestinal: Soft, Non distended, Tenderness: Left flank, Guarding: Negative, Rebound: Negative. Musculoskeletal: Normal ROM, normal strength. Neurological: Alert and oriented to person, place, time, and situation, No focal neurological deficit observed. Psychiatric: Cooperative, appropriate mood & affect. Medical Decision Making Differential Diagnosis: Ureteral stone. Rationale: Pt has had no vomiting here. Unable to gain IV access. She is holding down oral meds.. Documents reviewed: Emergency department nurses' notes. Impression and Plan Diagnosis Flank pain - Discharge, Emergency medicine, Medical Plan Patient was given the following educational materials: Kidney Stones, Kidney Stones. Follow up with: NICOLE ERNST Within 2 to 3 days; Follow up with specialist Within 2 to 3 days Follow up with urology as planned. Continue home pain meds and nausea medicine. Return if worse. You can take ibuprofen in addition to you other pain medication if needed for additional pain control.. Electronically signed by Rachel Littlejohn Conversion Filing And Polishing Supervisor Cerner at 12/29/2022 4:19 PM CDT documented in this encounter Plan of Treatment Not on file documented as of this encounter Visit Diagnoses Not on filedocumented in this encounter
--- OUTSIDE RECORDS SUMMARY | 2025-06-07 16:18 | XMS_ITS | Encounter Summary ---
Author Organization [employer] ([place], [place], [place], [place]) Address [address] [place] [address] Care Team Providers Care Milk Pasteurizer Name Role Phone Unavailable Primary Care Provider Unavailabl e Encounter Details Date Type Department Care Team (Late st Contact Info) Description 11/30/2019 Transcribed Document [facility] [place] [address] [place] [address] ProviderJulio MD [address] [place] [address] 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 Tobacco Use Types Packs/Day Years [...] Note - Julio Van MD - 11/30/2019 4:00 AM CDT Patient: OREN KIM Age: 34 years Sex: Female : 1985 Associated Diagnoses: Left ureteral stone; Acute UTI; Renal insufficiency Author: CARLITOS BLOUNT MD-EMR Basic Information Additional information: Chief Complaint from Nursing Triage Note : Chief Complaint 11/30/2019 3:52 EDT Chief Complaint Pt states she has had fever since dx with kidney stone, states she has taken abx x3 days. 650mg Tylenol taken at 0200. 99.6 temp at triage. . History of Present Illness The patient is a 33-year-old white female. She is a long history of multiple kidney stones as well as multiple chronic urinary tract infections. She was seen here on 11/27/2019 and found to have a left sided 6 mm stone at the UPJ with severe left hydronephrosis. She was placed on oral Levaquin 750 daily as well as appropriate pain medication. Urine culture was not sent. She has multiple urine cultures recently that have been contaminated. Her last 2 urine cultures that did grow out an organism revealed Escherichia coli that was primarily pansensitive. She lists multiple allergies but in the past year has tolerated Rocephin, Zosyn, Levaquin. She presents tonight stating that she has ongoing left flank pain. She reports a fever over the last 24 hours with temperature max of 101.5. She states she took Tylenol 2 hours ago. She reports multiple episodes of nausea vomiting. The left flank pain does radiate into the left lower abdomen. She states she currently does not have an active urologist but [facility] and [facility] her to present to the local ER and that she may be transferred if indicated Review of Systems Constitutional symptoms: Negative except [...] were documented. Toradol- No reactions were documented. . Medications: (Selected) Inpatient Medications Ordered Sodium Chloride 0.9% intravenous solution 1,000 mL: 1,000 mL/Hr, IntraVENous Prescriptions Prescribed Benadryl 25 mg oral tablet: 1 Tab, Oral, Q6H, PRN: as needed for itching, 30 Tab, 0 Refill(s) Levaquin 750 mg oral tablet: 1 Tab, Oral, [id number], for 7 Day(s), 7 Tab, 0 Refill(s) [...] 1 Cap, Oral, TID, 90 Cap, 0 Refill(s) . Past Medical/ Family/ 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 Surgical history: Lithotripsy ([id number]). . Family history: No family history items have been selected or recorded. . Social history: Social & Psychosocial Habits Alcohol 02/24/2015 Alcohol Use History, Social Habits No Substance Abuse 02/24/2015 Recreational Drug Use Last 12 Months No Tobacco 02/24/2015 Tobacco Use Within Last Twelve Months Snuff/Dip Packs/Tins Daily 0.5 . Problem list: Active Problems (3) Endometriosis Kidney stones PTSD (post-traumatic stress disorder) . Physical Examination Vital Signs Vital Signs/Vital Measures 11/30/2019 3:52 EDT Systolic Blood Pressure 169 mmHg HI Diastolic Blood Pressure 97 mmHg HI Temperature Source Oral Temperature Mode Fahrenheit Temperature, Fahrenheit 99.6 Deg F Clinical Temperature, C 37.6 Deg C Peripheral Pulse Rate 106 bpm HI Respiratory Rate 16 Breaths/Min Oxygen Saturation 97 % Oxygen Therapy Mode Room air . Measurements 11/30/2019 3:52 EDT Height Source Stated Height Entry Format [place] Height/Length, [place] (ft) 5 ft Height/Length [place] 2 Inch CLINICALHEIGHT 157.48 cm [place] Body Weight 49.73 kg Weight Source, ED Critical estimated dosing weight Weight Entry Format [place] Weight [place] lb 230 lb CLINICALWEIGHT 104.55 kg Body Surface Area (BSA) 2.03 m2 Body Mass Index 42.2 kg/m2 >HHI . Oxygen Saturation 11/30/2019 3:52 EDT Oxygen Saturation 97 % . General: Alert, no acute distress. Skin: Warm, dry, intact. Head: Normocephalic, atraumatic. Neck: Supple. Eye: Pupils are equal, round and reactive to light, extraocular movements are intact. Ears, nose, mouth and throat: Oral mucosa moist. Cardiovascular: No edema, Rate is slightly tachycardic, rhythm is regular.. Respiratory: Lungs are clear to auscultation, respirations are non-labored. Gastrointestinal: Soft, Non distended, Normal bowel sounds, Mild left lower quadrant tenderness to deep palpation. No guarding or rebound. Back: Mild left CVA tenderness noted. Musculoskeletal: Normal ROM, normal strength. Neurological: Alert and oriented to person, place, time, and situation, No focal neurological deficit observed, normal sensory observed, normal motor observed, normal speech observed, normal coordination observed. Lymphatics: No lymphadenopathy. Psychiatric: Cooperative. Medical Decision Making Documents reviewed: Emergency department nurses' notes. Orders Include Previous Orders (Selected) Inpatient Orders Ordered Peripheral IV Insertion: Sodium Chloride 0.9% intravenous solution 1,000 mL: 1,000 mL/Hr, IntraVENous Ordered (Collected) Culture Urine: Ordered (Exam Completed) CR KUB: Pending Complete (Ordered) Culture Blood: Prescriptions Prescribed Benadryl 25 mg oral tablet: 1 Tab, Oral, Q6H, PRN: as needed for itching, 30 Tab, 0 Refill(s) Levaquin 750 mg oral tablet: 1 Tab, Oral, [id number], for 7 Day(s), 7 Tab, 0 Refill(s) [...] 1 Cap, Oral, TID, 90 Cap, 0 Refill(s) . Results review: Lab results : Lab Results 11/30/2019 5:00 EDT Urine Type U CleanCatch Urine Color Red Urine Appearance Cloudy Urine Specific [place] >=1.030 Urine pH Dipstick 6.0 Urine Leukocyte Esterase Trace Urine Nitrite Negative Urine Protein Dipstick >=300 Urine Glucose Dipstick Negative Urine Ketones Dipstick Trace Urine Urobilinogen Dipstick 2.0 EU/dL Urine Bilirubin Dipstick Moderate Urine Blood Dipstick Large Ur RBC 20-50 /HPF Ur WBC 20-50 /HPF Ur Bacteria 3+ Ur Squamous Epithelial Cells 50-100 /HPF HCG Urine Qualitative Negative 11/30/2019 4:59 EDT Sodium Level 140 mmol/L Potassium Level 3.7 mmol/L Chloride Level 103 mmol/L Carbon Dioxide Level 27 mmol/L Anion Gap 14 Glucose Level 109 mg/dL HI Blood Urea Nitrogen 13 mg/dL CREATININE 1.39 mg/dL HI eGFR 53 mL/min/1.73m2 LOW eGFR NonAfrican 43 mL/min/1.73m2 LOW Bun/Creatinine 9.353 NA Calcium Level 9.2 mg/dL Protein Total 8.1 Gram/dL Albumin Level 2.9 Gram/dL LOW Globulin 5.2 Gram/dL HI A/G Ratio 0.6 LOW Bilirubin Total 0.7 mg/dL Alk Phos 100 Units/Liter AST 23 Units/Liter ALT 35 Units/Liter Magnesium Level 2.1 mg/dL Lactic Acid Level 0.8 mmol/L WBC 15.8 K/uL HI RBC 4.97 Million/uL Hgb 13.5 Gram/dL Hct 41.5 % MCV 83.5 fL MCH 27.2 pg MCHC 32.5 Gram/dL Platelet Count 434 K/uL HI MPV 9.5 fL RDW 14.7 % HI Neut % 80.6 % HI Neut # 12.72 K/uL HI Lymph % 9.7 % LOW Lymph # 1.53 K/uL Sargent % 8.2 % Sargent # 1.30 K/uL HI Eos % 1.2 % Eos # 0.19 K/uL Baso % 0.1 % Baso # 0.02 K/uL Slide Review No IG# 0 x10(3)/uL IG% 0 % . 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 Reexamination/ Reevaluation Time: 11/30/2019 06:13:00 . Interventions: Pt stable. No change in position of CA on KUB in comparison to CT scan this week. Pt with worsening renal function, elevated WBC, worsening pain. Pt with multiple previous urine cultures that were contaminated. Last culture that grew a pathogen was a cho-sensitive e. coli (no h/o ESBL). Pt lists multiple allergies but has been documented to tolerate rocephin and zosyn in past. . Procedure Line Placement Time: 11/30/2019 06:12:00 . Confirmed: Patient, procedure, side, and site correct. Consent: Patient, Has signed consent. Indication: Venous access. Procedural sedation: None. Location: Right, Femoral vein. Preparation: Sterile field established, landmarks identified, Skin prepped with chlorhexidine, Local anesthesia: 10 ml 1% lidocaine injected locally. central venous line: 7.5 faroese triple lumen, Seldinger technique utilized for line placement, 1 attempts. Post-procedure: Adequate blood return observed, Adequate fluid flow observed, Circulation, motor, sensory exam intact. Patient tolerated: Well. Complications: None. Estimated Blood Loss: 5 ml. Performed by: Self. Total time: 15 minutes. Impression and Plan Diagnosis Left ureteral stone - Discharge, Emergency medicine, Medical Acute UTI - Discharge, Emergency medicine, Medical Renal insufficiency - Discharge, Emergency medicine, Medical Plan Condition: Stable. Disposition: Transfer to other location Admit/Transfer/Discharge: ED Transfer (Order): Start: 11/30/2019 8:22 EDT, Unit Type: Med-Surg , Patient care transitioned to: Time: 11/30/2019 06:32:00, SANAM BANG MD-EMR. Counseled: Patient, Regarding diagnosis, Regarding diagnostic results, Regarding treatment plan, Regarding prescription, Patient indicated understanding of instructions. Electronically signed by Rachel Littlejohn Conversion Doorperson Or Luggage Porter Cerner at 12/29/2022 4:28 PM CDT documented in this encounter Plan of Treatment Not on file documented as of this encounter Visit Diagnoses Not on filedocumented in this encounter
--- OUTSIDE RECORDS SUMMARY | 2025-06-07 16:18 | XMS_ITS | Encounter Summary ---
Author Organization [facility] ([place], [place], [place], [place]) Address [address] [place] [address] Care Team Providers Care Barytes Grinder Name Role Phone Unavailable Primary Care Provider Unavailabl e Encounter Details Date Type Department Care Team (Late st Contact Info) Description 11/30/2019 Transcribed Document [facility] [place] [address] [place] [address] ProviderJulio MD [address] [place] [address] 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 Tobacco Use Types Packs/Day Years [...] Conversion Note - Julio ProviderMD - 11/30/2019 6:08 AM CDT Pain Assessment Entered On: 11/30/2019 7:45 EDT Performed On: 11/30/2019 6:44 EDT by Fabiana Cee RN Intervention Information: morphine Performed by Vero Mitchell RN on 11/30/2019 06:14:00 EDT morphine,4mg IV Push,Central line, distal Pain Assessment Pain Assessment : Follow-up assessment Pain Scale Used : 0-10 Scale Fabiana Cee RN - 11/30/2019 7:45 EDT Pain Scale Intensity : 3 Fabiana Cee RN - 11/30/2019 7:45 EDT Image 4 - Images currently included in the form version of this document have not been included in the text rendition version of the form. Electronically signed by Rachel Littlejohn Conversion Cement Boat And Barge Loader Cerner at 12/29/2022 4:27 PM CDT documented in this encounter Plan of Treatment Not on file documented as of this encounter Visit Diagnoses Not on filedocumented in this encounter
--- OUTSIDE RECORDS SUMMARY | 2025-06-07 16:18 | XMS_ITS | Encounter Summary ---
Author Organization [employer] ([place], [place], [place], [place]) Address [address] [place] [address] Care Team Providers Care Life Skills Coordinator Name Role Phone Unavailable Primary Care Provider Unavailabl e Encounter Details Date Type Department Care Team (Late st Contact Info) Description 11/30/2019 Transcribed Document [facility] [place] [address] [place] [address] ProviderJulio MD [address] [place], [place] [id number] 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 Tobacco Use Types Packs/Day Years Used Date Smoking Tobacco: Never Assessed Comments Unknown Sex and Gender Information Value Date Recorded Sex Assigned at Female 03/12/2022 2:43 PM CDT Legal Sex Female 5:44 PM CDT Gender Identity Female 03/12/2022 2:43 PM CDT Sexual Orientation Not on file documented as of this encounter Miscellaneous Notes * Cerner Conversion Note - Historical ProviderMD - 11/30/2019 3:10 PM CDT CR Abdomen 1 Vw Ordered: 11/30/2019 Auth (Verified) Reason for Exam: left sided stone 11/30/2019 09:06 11/30/2019 15:10 (CATIA BARFIELD PA) Reviewed by Provider, No further action required x1 11/30/2019 10:25 (NINA KRAMER) Provider Review Required Electronically signed by Eron [id number] Conversion Network Technician Cerner at 12/29/2022 4:13 PM CDT documented in this encounter Plan of Treatment Not on file documented as of this encounter Visit Diagnoses Not on filedocumented in this encounter
--- OUTSIDE RECORDS SUMMARY | 2025-06-07 16:18 | XMS_ITS | Encounter Summary ---
Author Organization [employer] ([place], [place], [place], [place]) Address [address] [place] [address] Care Team Providers Care Rn Digestive Name Role Phone Unavailable Primary Care Provider Unavailabl e Encounter Details Date Type Department Care Team (Late st Contact Info) Description 02/27/2020 Transcribed Document [facility] [place] [address] [place] [address] ProviderJulio MD [address] [place] [address] 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 Tobacco Use Types Packs/Day Years Used Date Smoking Tobacco: Never Assessed Comments Unknown Sex and Gender Information Value Date Recorded Sex Assigned at Female 03/12/2022 2:43 PM CDT Legal Sex Female 5:44 PM CDT Gender Identity Female 03/12/2022 2:43 PM CDT Sexual Orientation Not on file documented as of this encounter Miscellaneous Notes * Cerner Conversion Note - Historical ProviderMD - 02/27/2020 4:58 AM CDT Electronically signed by Eron [facility] Conversion Blending Machine Feeder Cerner at 12/29/2022 4:17 PM CDT documented in this encounter Plan of Treatment Not on file documented as of this encounter Visit Diagnoses Not on filedocumented in this encounter
--- OUTSIDE RECORDS SUMMARY | 2025-06-07 16:18 | XMS_ITS | Encounter Summary ---
Author Organization [employer] ([place], [place], [place], [place]) Address [address] [place] [address] Care Team Providers Care Land Surveying Survey Worker Name Role Phone Unavailable Primary Care Provider Unavailabl e Encounter Details Date Type Department Care Team (Late st Contact Info) Description 02/27/2020 Transcribed Document [facility] [place] [address] [place] [address] ProviderJulio MD [address] [place], [place] [id number] 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 Tobacco Use Types Packs/Day Years [...] Note - Julio Van MD - 02/27/2020 4:59 AM CDT [facility] [address] [place] [address] OREN KIM :1985 Visit Time:02/27/2020 Your Visit Summary Your Care Team Primary Provider: CODIE RUIZ Secondary Provider: Your Diagnosis Flank pain UTI (urinary tract infection) Medical Information You may obtain a copy [...] primary care provider When Within 2 to 3 days Comments Take all antibiotics as prescribed. Take Benadryl when you take these if you have allergic reaction. Return if worse. Follow Up with NICOLE ERNST When Within 2 to 3 days Where: [address] [address] [employer] (1) Allergies most abx Keflex Toradol amoxicillin-clavulanate (SOA, SOA) cefaclor ciprofloxacin (HIVES, HIVES) codeine doxycycline (RASH/SOA, RASH/SOA) gatifloxacin midazolam nitrofurantoin (RASH/SOA, RASH/SOA) ondansetron sulfa drugs Immunizations This Visit No Immunizations Found Medications What How Much When Instructions Next Dose nitrofurantoin (Macrobid 100 mg oral capsule) 1 Capsule(s) Oral Two Times A Day Duration: 7 Day(s) Printed Prescription albuterol (albuterol HFA 90 mcg/ inh inhalation aerosol) Inhalation Four Times A Day busPIRone (BuSpar) Oral Two Times A Day fluconazole (Diflucan) Every Day gabapentin Oral ibuprofen (ibuprofen 800 mg oral tablet) nystatin topical (nystatin 100,000 units/ g topical powder) 1 Application(s) Topical Two Times A Day apply to affected areas until rash resolves paroxetine (Paxil 40 mg oral tablet) 1 Tablet(s) Oral Every Day promethazine (promethazine 25 mg oral tablet) 1 Tablet(s) Oral Every 6 Hours as needed for as needed for nausea/vomiting Duration: 5 Day(s) tiZANidine (tiZANidine 6 mg oral capsule) 1 [...] This Visit (last charted value for your 02/27/2020 visit) Urinalysis 02/27/2020 4:36 AM Ur RBC: 5-10 /HPF Urine Nitrite: Negative Urine Leukocyte Esterase: Trace Urine Appearance: Cloudy Urine Glucose Dipstick: Negative Urine Blood Dipstick: Trace - Intact Urine Type: U CleanCatch Urine Urobilinogen Dipstick: 0.2 EU/dL Ur Calcium Oxalate Crystals: 2+ Urine Protein Dipstick: Negative Ur Bacteria: 3+ Ur Squamous Epithelial Cells: 10-20 /HPF Urine Color: Yellow Ur WBC: 10-20 /HPF Urine Ketones Dipstick: Negative Urine pH Dipstick: 6.0 -- Normal range between ( 6.0 and 8.0 ) Urine Bilirubin Dipstick: Negative Urine Specific [place]: >=1.030 -- Normal range between ( 1.005 and 1.030 ) Education Materials Urinary Tract Infection, Adult A urinary tract infection (UTI) is an infection of any part of the urinary tract. The urinary tract includes the kidneys, ureters, bladder, and urethra. These organs make, store, and get rid of urine in the body. Your health care provider may use other names to describe the infection. An upper UTI affects the ureters and kidneys (pyelonephritis). A lower UTI affects the bladder (cystitis) and urethra (urethritis). What are the causes? Most urinary tract infections are caused by bacteria in your genital area, around the entrance to your urinary tract (urethra). These bacteria grow and cause inflammation of your urinary tract. What increases the risk? You are more likely to develop this condition if: ??? You have a urinary catheter that stays in place (indwelling). ??? You are not able to control when you urinate or have a bowel movement (you have incontinence). ??? You are female and you: ? Use a spermicide or diaphragm for control. ? Have low estrogen levels. ? Are . ??? You have certain genes that increase your risk (genetics). ??? You are sexually active. ??? You take antibiotic medicines. ??? You have a condition that causes your flow of urine to slow down, such as: ? An enlarged prostate, if you are male. ? Blockage in your urethra (stricture). ? A kidney stone. ? A nerve condition that affects your bladder control (neurogenic bladder). ? Not getting enough to drink, or not urinating often. ??? You have certain medical conditions, such as: ? Diabetes. ? A weak disease-fighting system (immunesystem). ? Sickle cell disease. ? Gout. ? Spinal cord injury. What are the signs or symptoms? Symptoms of this condition include: ??? Needing to urinate right away (urgently). ??? Frequent urination or passing small amounts of urine frequently. ??? Pain or burning with urination. ??? Blood in the urine. ??? Urine that smells bad or unusual. ??? Trouble urinating. ??? Cloudy urine. ??? Vaginal discharge, if you are female. ??? Pain in the abdomen or the lower back. You may also have: ??? Vomiting or a decreased appetite. ??? Confusion. ??? Irritability or tiredness. ??? A fever. ??? Diarrhea. The first symptom in older adults may be confusion. In some cases, they may not have any symptoms until the infection has worsened. How is this diagnosed? This condition is diagnosed based on your medical history and a physical exam. You may also have other tests, including: ??? Urine tests. ??? Blood tests. ??? Tests for sexually transmitted infections (STIs). If you have had more than one UTI, a cystoscopy or imaging studies may be done to determine the cause of the infections. How is this treated? Treatment for this condition includes: ??? Antibiotic medicine. ??? Spju-iel-bfrrefs medicines to treat discomfort. ??? Drinking enough water to stay hydrated. If you have frequent infections or have other conditions such as a kidney stone, you may need to see a health care provider who specializes in the urinary tract (urologist). In rare cases, urinary tract infections can cause sepsis. Sepsis is a life-threatening condition that occurs when the body responds to an infection. Sepsis is treated in the hospital with IV antibiotics, fluids, and other medicines. Follow these instructions at home: Medicines ??? Take dtkc-mhj-tnegkkn and prescription medicines only as told by your health care provider. ??? If you were prescribed an antibiotic medicine, take it as told by your health care provider. Do not stop using the antibiotic even if you start to feel better. General instructions ??? Make sure you: ? Empty your bladder often and completely. Do not hold urine for long periods of time. ? Empty your bladder after sex. ? Wipe from front to back after a bowel movement if you are female. Use each tissue one time when you wipe. ??? Drink enough fluid to keep your urine pale yellow. ??? Keep all follow-up visits as told by your health care provider. This is important. Contact a health care provider if: ??? Your symptoms do not get better after 1???2 days. ??? Your symptoms go away and then return. Get help right away if you have: ??? Severe pain in your back or your lower abdomen. ??? A fever. ??? Nausea or vomiting. Summary ??? A urinary tract infection (UTI) is an infection of any part of the urinary tract, which includes the kidneys, ureters, bladder, and urethra. ??? Most urinary tract infections are caused by bacteria in your genital area, around the entrance to your urinary tract (urethra). ??? Treatment for this condition often includes antibiotic medicines. ??? If you were prescribed an antibiotic medicine, take it as told by your health care provider. Do not stop using the antibiotic even if you start to feel better. ??? Keep all follow-up visits as told by your health care provider. This is important. This information is not intended to replace advice given to you by your health care provider. Make sure you discuss any questions you have with your health care provider. Document Released: 06/09/2006 Document Revised: 08/17/2019 Document Reviewed: 03/09/2019 [employer] Patient Education ?? 2020 [employer]. Emergency Awareness and Preventative Care STROKE is [...] Assistance with quitting is available by contacting 1-604-JVXV-NOW. This is a free resource providing counseling, [...] including: emergency, radiology, or pathology physicians. Patient Name:APOOLNIA OREN A I have received this information and was given the opportunity to ask questions. Patient/Aerial Gunner Name: Patient/Aerial Gunner Signature: Relationship to Patient: Clinician/Hospital Aerial Gunner Signature: Please Provide a Telephone Number Where You Can Be Reached: Is it Permissible To Leave a Message? Date: documented in this encounter Plan of Treatment Not on file documented as of this encounter Visit Diagnoses Not on filedocumented in this encounter
--- OUTSIDE RECORDS SUMMARY | 2025-06-07 16:18 | XMS_ITS | Encounter Summary ---
Author Organization [employer] ([place], [place], [place], [place]) Address [address] [place] [address] Care Team Providers Care General Superintendent Name Role Phone Unavailable Primary Care Provider Unavailabl e Encounter Details Date Type Department Care Team (Late st Contact Info) Description 11/28/2019 Transcribed Document [facility] [place] Medicine [address] [place] [address] ProviderJulio MD [address] [place] [address] 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 Tobacco Use Types Packs/Day Years Used Date Smoking Tobacco: Never Assessed Comments Unknown Sex and Gender Information Value Date Recorded Sex Assigned at Female 03/12/2022 2:43 PM CDT Legal Sex Female 5:44 PM CDT Gender Identity Female 03/12/2022 2:43 PM CDT Sexual Orientation Not on file documented as of this encounter Miscellaneous Notes * Cerner Conversion Note - Historical ProviderMD - 11/28/2019 6:29 AM CDT Electronically signed by Eron [facility] Conversion Surveillance System Monitor Cerner at 12/29/2022 4:25 PM CDT documented in this encounter Plan of Treatment Not on file documented as of this encounter Visit Diagnoses Not on filedocumented in this encounter
--- OUTSIDE RECORDS SUMMARY | 2025-06-07 16:18 | XMS_ITS | Encounter Summary ---
Author Organization [employer] ([place], [place], [place], [place]) Address [address] [place] [address] Care Team Providers Care Team Driver Name Role Phone Unavailable Primary Care Provider Unavailabl e Encounter Details Date Type Department Care Team (Late st Contact Info) Description 11/28/2019 Transcribed Document [facility] [place] [address] [place] [address] ProviderJulio MD [address] [place] [address] 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 Tobacco Use Types Packs/Day Years [...] Julio ProviderMD - 11/28/2019 4:21 AM CDT [place] Suicide Severity Rating Scale (C-SSRS) Entered On: 11/28/2019 4:30 EDT Performed On: 11/28/2019 4:30 EDT by Farzaneh Rico RN [place] Suicide Severity Rating Scale (C-SSRS) CSSRS Past Month Wish to be : No CSSRS Past Month Suicidal Thoughts : No CSSRS Lifetime Suicide Behavior : No Suicide Severity Rating Score : 0 Suicide Severity Rating : No Additional Care Required at this time Farzaneh Rico RN - 11/28/2019 4:30 EDT Electronically signed by Rachel Littlejohn Conversion Operations Support Analyst Cerner at 12/29/2022 4:26 PM CDT documented in this encounter Plan of Treatment Not on file documented as of this encounter Visit Diagnoses Not on filedocumented in this encounter
--- OUTSIDE RECORDS SUMMARY | 2025-06-07 16:18 | XMS_ITS | Encounter Summary ---
Author Organization [employer] ([place], [place], [place], [place]) Address [address] [place] [address] Care Team Providers Care Process Safety Engineer Name Role Phone Unavailable Primary Care Provider Unavailabl e Encounter Details Date Type Department Care Team (Late st Contact Info) Description 11/28/2019 Transcribed Document [facility] [place] [address] [place] [address] ProviderJulio MD [address] [place] [address] 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 Tobacco Use Types Packs/Day Years [...] ProviderMD - 11/28/2019 4:21 AM CDT ED Assessment Entered On: 11/28/2019 4:35 EDT Performed On: 11/28/2019 4:34 EDT by Farzaneh Rico RN ED Quick Look Assessment Level of Consciousness : Alert, Awake Affect/Behavior : Appropriate, Calm, Cooperative Orientation : Oriented x 4 Skin Temperature : Warm Skin Description : Dry Farzaneh Rico RN - 11/28/2019 4:34 EDT ED General-Functional Assess Information Obtained From : Patient Preferred Communication Mode : Verbal Communication Barrier : None Primary Language : Mongolian Any Spiritual/Cultural Needs or Requests : No Currently in Unsafe Situation : No Farzaneh Rico RN - 11/28/2019 4:34 EDT Social Habits Smoking Status : Never (less than 100 in lifetime; none in last 30 days) Smokeless Tobacco Status : Smokeless tobacco user within last 30 days Desires Tobacco Cessation Medication : No Reason for No Tobacco Cessation Medication : ED/procedural patient only Desires Tobacco Cessation Calc : 1 Farzaneh Rico RN - 11/28/2019 4:34 EDT 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 (As Of: 11/28/2019 04:35:50 EDT) Tobacco: Use in Last 12 Months: [...] : WDL with exceptions Genitourinary Symptoms : Other: left flank pain Farzaneh Rico RN - 11/28/2019 4:34 EDT documented in this encounter Plan of Treatment Not on file documented as of this encounter Visit Diagnoses Not on filedocumented in this encounter
--- OUTSIDE RECORDS SUMMARY | 2025-06-07 16:18 | XMS_ITS | Encounter Summary ---
Author Organization [employer] ([place], [place], [place], [place]) Address [address] [place] [address] Care Team Providers Care Lockmaker Name Role Phone Unavailable Primary Care Provider Unavailabl e Encounter Details Date Type Department Care Team (Late st Contact Info) Description 02/27/2020 Transcribed Document [facility] [place] [address] [place] [address] ProviderJulio MD [address] [place] [address] 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 Tobacco Use Types Packs/Day Years [...] Note - Julio Van MD - 02/27/2020 4:25 AM CDT [place] Suicide Severity Rating Scale (C-SSRS) Entered On: 02/27/2020 5:12 EDT Performed On: 02/27/2020 5:00 EDT by Candelaria Albert RN [place] Suicide Severity Rating Scale (C-SSRS) CSSRS Past Month Wish to be : No CSSRS Past Month Suicidal Thoughts : No CSSRS Lifetime Suicide Behavior : No Suicide Severity Rating Score : 0 Suicide Severity Rating : No Additional Care Required at this time Thoughts of Harming/Killing Others : No Candelaria Albert RN - 02/27/2020 5:11 EDT documented in this encounter Plan of Treatment Not on file documented as of this encounter Visit Diagnoses Not on filedocumented in this encounter
--- OUTSIDE RECORDS SUMMARY | 2025-06-07 16:18 | XMS_ITS | Encounter Summary ---
Author Organization [employer] ([place], [place], [place], [place]) Address [address] [place] [address] Care Team Providers Care Project Executive Name Role Phone Unavailable Primary Care Provider Unavailabl e Encounter Details Date Type Department Care Team (Late st Contact Info) Description 12/02/2019 Transcribed Document [facility] [place] Medicine [address] [place] [address] ProviderJulio MD [address] [place] [address] 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 Tobacco Use Types Packs/Day Years Used Date Smoking Tobacco: Never Assessed Comments Unknown Sex and Gender Information Value Date Recorded Sex Assigned at Female 03/12/2022 2:43 PM CDT Legal Sex Female 5:44 PM CDT Gender Identity Female 03/12/2022 2:43 PM CDT Sexual Orientation Not on file documented as of this encounter Miscellaneous Notes * Cerner Conversion Note - Historical ProviderMD - 12/02/2019 11:04 AM CDT Urine Culture Collected: 11/30/2019 Complete Body site: Specimen Type: U CleanCatch 12/02/2019 08:09 12/02/2019 11:04 (YARA CENTENO PA) Reviewed by Provider, No further action required documented in this encounter Plan of Treatment Not on file documented as of this encounter Visit Diagnoses Not on filedocumented in this encounter
--- OUTSIDE RECORDS SUMMARY | 2025-06-07 16:18 | XMS_ITS | Encounter Summary ---
Author Organization [email or web address] ([place], [place], [place], [place]) Address [address] [place] [address] Care Team Providers Care Photographic Plate Maker Name Role Phone Unavailable Primary Care Provider Unavailabl e Encounter Details Date Type Department Care Team (Late st Contact Info) Description 11/30/2019 Transcribed Document [facility] [place] [address] [place] [address] ProviderJulio MD [address] [place] [address] 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 Tobacco Use Types Packs/Day Years [...] ProviderMD - 11/30/2019 3:37 AM CDT ED Triage Entered On: 11/30/2019 3:56 EDT Performed On: 11/30/2019 3:52 EDT by Vero Mitchell RN ED Triage Across the Room Chief Complaint : Pt states she has had fever since dx with kidney stone, states she has taken abx x3 days. 650mg Tylenol taken at 0200. 99.6 temp at triage. Triage Date/Time : 11/30/2019 3:52 EDT Vero Mitchell RN - 11/30/2019 3:52 EDT Vero Mitchell RN - 11/30/2019 3:52 EDT DCP GENERIC CODE Tracking Group : [facility] ED Sandy Vero Mitchell RN - 11/30/2019 3:52 EDT Tracking Acuity : 3 - Urgent Fabiana CeeEVE - 11/30/2019 6:59 EDT Mode of Arrival : Ambulatory Transported to ED by : Private vehicle To Room Via : Ambulate Accompanied By : Unaccompanied ED Vital Signs : Document Height & Weight : Document ED Allergies : Document ED Reason for Visit : Document Tetanus Immunization : Less than 5 years Vero Mitchell RN - 11/30/2019 3:52 EDT Infectious Disease History COVID19 Screening : No Physical contact outside [place] in the last 30 days : No Infectious Disease History : Chicken pox/Shingles, Influenza Tuberculosis Symptoms : None Vero Mitchell RN - 11/30/2019 3:52 EDT Vital Signs ED Temperature Source : Oral Temperature Mode : Fahrenheit Temperature, Fahrenheit : 99.6 Deg F ED Pain : No Clinical Temperature, C : 37.6 Deg C Oxygen Therapy Mode : Room air Peripheral Pulse Rate : 106 bpm (HI) Respiratory Rate : 16 Breaths/Min Systolic Blood Pressure : 169 mmHg (HI) Diastolic Blood Pressure : 97 mmHg (HI) Oxygen Saturation : 97 % Vero Mitchell RN - 11/30/2019 3:52 EDT Allergy (As Of: 11/30/2019 03:56:18 EDT) Allergies (Active) most abx Estimated Onset Date: Unspecified ; Created By: MANPREET SALAS; Reaction Status: Active ; Category: Drug ; Substance: most abx ; Type: Allergy ; Updated By: MANPREET SALAS; Reviewed Date: 11/30/2019 3:55 EDT amoxicillin-clavulanate Estimated Onset Date: Unspecified ; Reactions: SOA, SOA ; Created By: MANPREET SALAS; Reaction Status: Active ; Category: Drug ; Substance: amoxicillin-clavulanate ; Type: Allergy ; Updated By: MANPREET SALAS; Reviewed Date: 11/30/2019 3:55 EDT cefaclor Estimated Onset Date: Unspecified ; Created By: MANPREET SALAS; Reaction Status: Active ; Substance: cefaclor ; Updated By: MANPREET SALAS; Reviewed Date: 11/30/2019 3:55 EDT ciprofloxacin Estimated Onset Date: Unspecified ; Reactions: HIVES, HIVES ; Created By: MANPREET SALAS; Reaction Status: Active ; Substance: ciprofloxacin ; Updated By: MANPREET SALAS; Reviewed Date: 11/30/2019 3:55 EDT codeine Estimated Onset Date: Unspecified ; Created By: LORE JARQUIN RN; Reaction Status: Active ; Category: Drug ; Substance: codeine ; Type: Allergy ; Updated By: LORE JARQUIN RN; Reviewed Date: 11/30/2019 3:55 EDT doxycycline Estimated Onset Date: Unspecified ; Reactions: RASH/SOA, RASH/SOA ; Created By: MANPREET SALAS; Reaction Status: Active ; Category: Drug ; Substance: doxycycline ; Type: Allergy ; Updated By: MANPREET SALAS; Reviewed Date: 11/30/2019 3:55 EDT gatifloxacin Estimated Onset Date: Unspecified ; Created By: MANPREET SALAS; Reaction Status: Active ; Substance: gatifloxacin ; Updated By: MANPREET SALAS; Reviewed Date: 11/30/2019 3:55 EDT Keflex Estimated Onset Date: Unspecified ; Created By: Cathi Green RN; Reaction Status: Active ; Category: Drug ; Substance: Keflex ; Type: Allergy ; Updated By: Cathi Green RN; Reviewed Date: 11/30/2019 3:55 EDT midazolam Estimated Onset Date: Unspecified ; Created By: MANPREET SALAS; Reaction Status: Active ; Category: Drug ; Substance: midazolam ; Type: Allergy ; Updated By: MANPREET SALAS; Reviewed Date: 11/30/2019 3:55 EDT nitrofurantoin Estimated Onset Date: Unspecified ; Reactions: RASH/SOA, RASH/SOA ; Created By: MANPREET SALAS; Reaction Status: Active ; Category: Drug ; Substance: nitrofurantoin ; Type: Allergy ; Updated By: MANPREET SALAS; Reviewed Date: 11/30/2019 3:55 EDT ondansetron Estimated Onset Date: Unspecified ; Created By: MANPREET SALAS; Reaction Status: Active ; Category: Drug ; Substance: ondansetron ; Type: Allergy ; Updated By: MANPREET SALAS; Reviewed Date: 11/30/2019 3:55 EDT sulfa drugs Estimated Onset Date: Unspecified ; Created By: MANPREET SALAS; Reaction Status: Active ; Substance: sulfa drugs ; Updated By: MANPREET SALAS; Reviewed Date: 11/30/2019 3:55 EDT Toradol Estimated Onset Date: Unspecified ; Created By: Cathi Green RN; Reaction Status: Active ; Category: Drug ; Substance: Toradol ; Type: Allergy ; Updated By: Cathi Green RN; Reviewed Date: 11/30/2019 3:55 EDT Diagnosis Control ED (As Of: 11/30/2019 03:56:18 EDT) Problems(Active) Endometriosis (SNOMED CT :242239710 ) Name of Problem: Endometriosis ; Recorder: Farzaneh Rico RN; Confirmation: Confirmed ; Classification: Medical ; Code: [id number] ; Contributor System: ExpoPromoterChart ; Last Updated: 11/16/2019 4:18 EST ; Life Cycle Date: 11/16/2019 ; Life Cycle Status: Active ; Vocabulary: SNOMED CT Kidney stones (SNOMED CT :130165930 ) Name of Problem: Kidney stones ; Recorder: MANFRED CAI PA; Confirmation: Confirmed ; Classification: Medical ; Code: [id number] ; Contributor System: PowerChart ; Last Updated: 10/24/2015 13:26 EST ; Life Cycle Date: 10/24/2015 ; Life Cycle Status: Active ; Responsible Provider: MANFRED CAI PA; Vocabulary: SNOMED CT PTSD (post-traumatic stress disorder) (SNOMED CT :06275519 ) Name of Problem: PTSD (post-traumatic stress disorder) ; Recorder: MANFRED CAI PA; Confirmation: Confirmed ; Classification: Medical ; Code: [id number] ; Contributor System: [employer] ; Last Updated: 10/24/2015 13:26 EST ; Life Cycle Date: 10/24/2015 ; Life Cycle Status: Active ; Responsible Provider: MANFRED CAI PA; Vocabulary: SNOMED CT Diagnoses(Active) Fever Date: 11/30/2019 ; Diagnosis Type: Reason For Visit ; Confirmation: Complaint of ; Clinical Dx: Fever ; Classification: Medical ; Clinical Service: Emergency medicine ; Code: PNED ; Probability: 0 ; Diagnosis Code: [id number] ED Height and Weight Height Source : Stated Height Entry Format : Bryan Height, Feet : 5 ft(Converted to: 152 cm, 60 Inch) Height, Inches : 2 Inch(Converted to: 0 ft 2 Inch, 5.08 cm) Clinical Height : 157.48 cm Weight Source, ED : Critical estimated dosing weight Weight Entry Format : Bryan Weight, Pounds : 230 lb Clinical Dosing Weight : 104.55 kg Body Surface Area (BSA) : 2.03 m2 Body Mass Index : 42.2 kg/m2 (>HHI) [place] Body Weight (IBW) : 49.73 kg Vero Mitchell RN - 11/30/2019 3:52 EDT Electronically signed by Rachel Littlejohn Conversion Defensive Driving Instructor Cerner at 12/29/2022 4:07 PM CDT documented in this encounter Plan of Treatment Not on file documented as of this encounter Visit Diagnoses Not on filedocumented in this encounter
--- OUTSIDE RECORDS SUMMARY | 2025-06-07 16:18 | XMS_ITS | Encounter Summary ---
Author Organization [employer] ([place], [place], [place], [place]) Address [address] [place] [address] Care Team Providers Care General Farmer Name Role Phone Unavailable Primary Care Provider Unavailabl e Encounter Details Date Type Department Care Team (Late st Contact Info) Description 02/27/2020 Transcribed Document [facility] [place] [address] [place] [address] ProviderJulio MD [address] [place] [address] 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 Tobacco Use Types Packs/Day Years Used Date Smoking Tobacco: Never Assessed Comments Unknown Sex and Gender Information Value Date Recorded Sex Assigned at Female 03/12/2022 2:43 PM CDT Legal Sex Female 5:44 PM CDT Gender Identity Female 03/12/2022 2:43 PM CDT Sexual Orientation Not on file documented as of this encounter Miscellaneous Notes * Cerner Conversion Note - Julio ProviderMD - 02/27/2020 4:25 AM CDT ED Triage Entered On: 02/27/2020 4:35 EDT Performed On: 02/27/2020 4:29 EDT by Candelaria Albert RN ED Triage Across the Room Chief Complaint : Pt c/o bilateral flank pain x1 week. +Nausea. hx of kindey stones. Took 800mg motrin this am. Triage Date/Time : 02/27/2020 4:29 EDT Candelaria Albert RN - 02/27/2020 4:29 EDT DCP GENERIC CODE Tracking Acuity : 3 - Urgent Tracking Group : [facility] Candelaria Melton RN - 02/27/2020 4:29 EDT Mode of Arrival : Ambulatory Transported to ED by : Walk in To Room Via : Ambulate Accompanied By : Unaccompanied ED Vital Signs : Document Height & Weight : Document ED Allergies : Document ED Infection Control : No ED Reason for Visit : Document Tetanus Immunization : Less than 5 years Candelaria Albert RN - 02/27/2020 4:29 EDT Infectious Disease History Has the patient ever been tested for COVID-19? : No, Patient stated COVID19 Screening : No Experiencing Infectious Disease Symptoms : No symptoms Physical contact outside [place] in the last 30 days : No Infectious Disease Symptoms Score : 0 Infectious Disease History : Chicken pox/Shingles, Influenza Tuberculosis Symptoms : None Candelaria Albert RN - 02/27/2020 4:29 EDT Vital Signs ED Temperature Source : Oral Temperature Mode : Fahrenheit Temperature, Fahrenheit : 98.4 Deg F Clinical Temperature, C : 36.9 Deg C Oxygen Therapy Mode : Room air Peripheral Pulse Rate : 102 bpm (HI) Respiratory Rate : 18 Breaths/Min Systolic Blood Pressure : 160 mmHg (HI) Diastolic Blood Pressure : 97 mmHg (HI) Oxygen Saturation : 98 % Candelaria Albert RN - 02/27/2020 4:29 EDT Allergy (As Of: 02/27/2020 04:35:27 EDT) Allergies (Active) most abx Estimated Onset Date: Unspecified ; Created By: MANPREET Magdaleno; Reaction Status: Active ; Category: Drug ; Substance: most abx ; Type: Allergy ; Updated By: MANPREET Magdaleno; Reviewed Date: 02/27/2020 4:30 EDT amoxicillin-clavulanate Estimated Onset Date: Unspecified ; Reactions: SOA, SOA ; Created By: MANPREET Magdaleno; Reaction Status: Active ; Category: Drug ; Substance: amoxicillin-clavulanate ; Type: Allergy ; Updated By: MANPREET Magdaleno; Reviewed Date: 02/27/2020 4:30 EDT cefaclor Estimated Onset Date: Unspecified ; Created By: MANPREET Magdaleno; Reaction Status: Active ; Substance: cefaclor ; Updated By: MANPREET Magdaleno; Reviewed Date: 02/27/2020 4:30 EDT ciprofloxacin Estimated Onset Date: Unspecified ; Reactions: HIVES, HIVES ; Created By: MANPREET Magdaleno; Reaction Status: Active ; Substance: ciprofloxacin ; Updated By: MANPREET Magdaleno; Reviewed Date: 02/27/2020 4:30 EDT codeine Estimated Onset Date: Unspecified ; Created By: LORE JARQUIN RN; Reaction Status: Active ; Category: Drug ; Substance: codeine ; Type: Allergy ; Updated By: LORE JARQUIN RN; Reviewed Date: 02/27/2020 4:30 EDT doxycycline Estimated Onset Date: Unspecified ; Reactions: RASH/SOA, RASH/SOA ; Created By: MANPREET Magdaleno; Reaction Status: Active ; Category: Drug ; Substance: doxycycline ; Type: Allergy ; Updated By: MANPREET Magdaleno; Reviewed Date: 02/27/2020 4:30 EDT gatifloxacin Estimated Onset Date: Unspecified ; Created By: MANPREET Magdaleno; Reaction Status: Active ; Substance: gatifloxacin ; Updated By: MANPREET Magdaleno; Reviewed Date: 02/27/2020 4:30 EDT Keflex Estimated Onset Date: Unspecified ; Created By: Cathi Green RN; Reaction Status: Active ; Category: Drug ; Substance: Keflex ; Type: Allergy ; Updated By: Cathi Green RN; Reviewed Date: 02/27/2020 4:30 EDT midazolam Estimated Onset Date: Unspecified ; Created By: MANPREET Magdaleno; Reaction Status: Active ; Category: Drug ; Substance: midazolam ; Type: Allergy ; Updated By: MANPREET Magdaleno; Reviewed Date: 02/27/2020 4:30 EDT nitrofurantoin Estimated Onset Date: Unspecified ; Reactions: RASH/SOA, RASH/SOA ; Created By: MANPREET Magdaleno; Reaction Status: Active ; Category: Drug ; Substance: nitrofurantoin ; Type: Allergy ; Updated By: MANPREET Magdaleno; Reviewed Date: 02/27/2020 4:30 EDT ondansetron Estimated Onset Date: Unspecified ; Created By: MANPREET Magdaleno; Reaction Status: Active ; Category: Drug ; Substance: ondansetron ; Type: Allergy ; Updated By: Hudson_systemMANPREET; Reviewed Date: 02/27/2020 4:30 EDT sulfa drugs Estimated Onset Date: Unspecified ; Created By: MANPREET Magdaleno; Reaction Status: Active ; Substance: sulfa drugs ; Updated By: MANPREET Magdaleno; Reviewed Date: 02/27/2020 4:30 EDT Toradol Estimated Onset Date: Unspecified ; Created By: Cathi Green RN; Reaction Status: Active ; Category: Drug ; Substance: Toradol ; Type: Allergy ; Updated By: Cathi Green RN; Reviewed Date: 02/27/2020 4:30 EDT Diagnosis Control ED (As Of: 02/27/2020 04:35:27 EDT) Problems(Active) Endometriosis (SNOMED CT :833983947 ) Name of Problem: Endometriosis ; Recorder: Farzaneh Rico RN; Confirmation: Confirmed ; Classification: Medical ; Code: [id number] ; Contributor System: Outsmart ; Last Updated: 11/16/2019 4:18 EST ; Life Cycle Date: 11/16/2019 ; Life Cycle Status: Active ; Vocabulary: SNOMED CT Kidney stones (SNOMED CT :765933072 ) Name of Problem: Kidney stones ; Recorder: MANFRED CAI PA; Confirmation: Confirmed ; Classification: Medical ; Code: [id number] ; Contributor System: Outsmart ; Last Updated: 10/24/2015 13:26 EST ; Life Cycle Date: 10/24/2015 ; Life Cycle Status: Active ; Responsible Provider: MANFRED CAI PA; Vocabulary: SNOMED CT PTSD (post-traumatic stress disorder) (SNOMED CT :33089949 ) Name of Problem: PTSD (post-traumatic stress disorder) ; Recorder: MANFRED CAI PA; Confirmation: Confirmed ; Classification: Medical ; Code: [id number] ; Contributor System: Outsmart ; Last Updated: 10/24/2015 13:26 EST ; Life Cycle Date: 10/24/2015 ; Life Cycle Status: Active ; Responsible Provider: MANFRED CAI PA; Vocabulary: SNOMED CT Diagnoses(Active) Flank pain Date: 02/27/2020 ; Diagnosis Type: Reason For Visit ; Confirmation: Complaint of ; Clinical Dx: Flank pain ; Classification: Medical ; Clinical Service: Emergency medicine ; Code: PNED ; Probability: 0 ; Diagnosis Code: [id number] ED Height and Weight Height Source : Stated Height Entry Format : [place] Height, Feet : 5 ft(Converted to: 152 cm, 60 Inch) Height, Inches : 2 Inch(Converted to: 0 ft 2 Inch, 5.08 cm) Clinical Height : 157.48 cm Weight Source, ED : Critical estimated dosing weight Weight Entry Format : [place] Weight, Pounds : 230 lb Clinical Dosing Weight : 104.55 kg Body Surface Area (BSA) : 2.03 m2 Body Mass Index : 42.2 kg/m2 (>HHI) [place] Body Weight (IBW) : 49.73 kg Candelaria Albert RN - 02/27/2020 4:29 EDT documented in this encounter Plan of Treatment Not on file documented as of this encounter Visit Diagnoses Not on filedocumented in this encounter
--- OUTSIDE RECORDS SUMMARY | 2025-06-07 16:19 | XMS_ITS | Encounter Summary ---
Author Organization [employer] ([place], [place], [place], [place]) Address [address] [place] [address] Care Team Providers Care Manager Sign Name Role Phone Unavailable Primary Care Provider Unavailabl e Encounter Details Date Type Department Care Team (Late st Contact Info) Description 02/27/2020 Transcribed Document [facility] [place] [address] [place] [address] ProviderJulio MD [address] [place] [address] 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 Tobacco Use Types [...] Note - Julio Van MD - 02/27/2020 5:02 AM CDT [facility] [address] [place] [address] OREN KIM :1985 Visit Time:02/27/2020 [...] 2 to 3 days Where: [address] [address] [employer] (1) Allergies most abx Keflex Toradol amoxicillin-clavulanate [...] ) Urine Bilirubin Dipstick: Negative Urine Specific [place]: >=1.030 -- Normal range between ( 1.005 [...] this condition includes: ??? Antibiotic medicine. ??? Xvzs-kvd-dsvhjns medicines to treat discomfort. ??? Drinking enough [...] these instructions at home: Medicines ??? Take yeol-zqh-zhruhzk and prescription medicines only as told by [...] 06/09/2006 Document Revised: 08/17/2019 Document Reviewed: 03/09/2019 [employer] Patient Education ?? 2020 [employer]. Emergency Awareness and Preventative Care STROKE is [...] Assistance with quitting is available by contacting 4-159-FGXP-NOW. This is a free resource providing counseling, [...] was given the opportunity to ask questions. Patient/Labor Relations Specialist Name: Patient/Labor Relations Specialist Signature: Relationship to Patient: Clinician/Hospital Labor Relations Specialist Signature: Please Provide a Telephone Number Where You Can Be Reached: Is it Permissible To Leave a Message? Date: documented in this encounter Plan of Treatment Not on file documented as of this encounter Visit Diagnoses Not on filedocumented in this encounter
--- OUTSIDE RECORDS SUMMARY | 2025-06-07 16:19 | XMS_ITS | Encounter Summary ---
Author Organization [employer] ([place], [place], [place], [place]) Address [address] [place] [address] Care Team Providers Care Records Assistant Name Role Phone Unavailable Primary Care Provider Unavailabl e Encounter Details Date Type Department Care Team (Late st Contact Info) Description 04/12/2020 Transcribed Document [facility] [place] Family Medicine [address] [place] [address] ProviderJulio MD [address] [place] [address] 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 Tobacco Use Types Packs/Day Years [...] Conversion Note - Julio Van MD - 04/12/2020 5:20 AM CDT ED Discharge Entered On: 04/12/2020 5:21 EDT Performed On: 04/12/2020 5:20 EDT by Farzaneh Rico RN Discharge Process Patient Disposition : Discharge Personal Belongings With Patient : No personal belongings to return Patient Education Completed : Yes Teaching Evaluation : Verbalizes understanding IV Discontinued : Not applicable Nursing Documentation Completed : Yes Farzaneh Rico RN - 04/12/2020 5:20 EDT ED Discharge Discharge To : Home without planned follow-up Mode Of Departure : Private vehicle Accompanied By : Responsible adult Discharge Instructions Reviewed With, Opportunity For Questions Given : Patient Prescriptions Given to Patient : Yes Number of Prescriptions Given : 3 Farzaneh Rico RN - 04/12/2020 5:20 EDT documented in this encounter Plan of Treatment Not on file documented as of this encounter Visit Diagnoses Not on filedocumented in this encounter
--- OUTSIDE RECORDS SUMMARY | 2025-06-07 16:19 | XMS_ITS | Encounter Summary ---
Author Organization [employer] ([place], [place], [place], [place]) Address [address] [place] [address] Care Team Providers Care Compounding Scaler Name Role Phone Unavailable Primary Care Provider Unavailabl e Encounter Details Date Type Department Care Team (Late st Contact Info) Description 01/27/2019 Transcribed Document [facility] [place] [facility] [place] [address] ProviderJulio MD [address] [place] [address] 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 Tobacco Use Types Packs/Day Years [...] Note - Julio Van MD - 01/27/2019 10:58 PM CDT Patient: OREN KIM Age: 33 years Sex: Female : 1985 Associated Diagnoses: Urinary tract infection; History of noncompliance with medical treatment Author: CARLITOS BLOUNT MD-EMR Basic Information Additional information: Chief Complaint from Nursing Triage Note : Chief Complaint 01/27/2019 22:29 EDT Chief Complaint c/o left posterior flank pain for 3 days, Hx of stent . History of Present Illness The patient is a 33-year-old white female. She has a history of UTIs in the past. She states that she had a left renal stent placed approximately 3 months ago but never followed up and she states that it is still in place. She now complains of left flank pain for 3 days. No fever no chills. I asked her why she never followed up and she said she just could not get to the doctor. Mild left lower quadrant abdominal pain. No anurag dysuria Review of Systems Constitutional symptoms: Negative except [...] Toradol- No reactions were documented.. Medications: (Selected) Documented Medications Documented BuSpar: Oral, BID, 0 Refill(s) Paxil 40 mg oral tablet: 1 Tab, Oral, Daily, 0 Refill(s) albuterol HFA 90 mcg/inh inhalation aerosol: Puff, Inhalation, QID, 0 Refill(s) gabapentin: Oral, 0 Refill(s) hydrOXYzine hydrochloride 25 mg oral tablet: 0 Refill(s) ibuprofen 800 mg oral tablet: 0 Refill(s) tiZANidine 6 mg oral capsule: 1 Cap, Oral, TID, 90 Cap, 0 Refill(s) traZODone: Oral, 0 Refill(s). Past Medical/ Family/ 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 Surgical history: Lithotripsy ([id number]).. Family history: No family history items have [...] Physical Examination Vital Signs Vital Signs/Vital Measures 01/27/2019 22:29 EDT Temperature Source Oral Temperature Mode Fahrenheit Temperature, Fahrenheit 99.5 Deg F Clinical Temperature, C 37.5 Deg C Peripheral Pulse Rate 110 bpm HI Respiratory Rate 20 Breaths/Min Systolic Blood Pressure 157 mmHg HI Diastolic Blood Pressure 101 mmHg HI Oxygen Therapy Mode Room air . Measurements 01/27/2019 22:29 EDT Height Source Stated Height Entry Format [place] Height/Length, HUNGARIAN (ft) 5 ft Height/Length HUNGARIAN 2 Inch CLINICALHEIGHT 157.48 cm [place] Body Weight 49.73 kg Weight Source, ED Critical estimated dosing weight Weight Entry Format [place] Weight Czech lb 210 lb CLINICALWEIGHT 95.45 kg Body Surface Area (BSA) 1.95 m2 Body Mass Index 38.5 kg/m2 HI . General: Alert, no acute distress. Skin: Warm, dry, intact. Head: Normocephalic, atraumatic. Neck: Supple. Eye: Pupils are equal, round and reactive to light, extraocular movements are intact. Ears, nose, mouth and throat: Oral mucosa moist. Cardiovascular: Regular rate and rhythm. Respiratory: Lungs are clear to auscultation. Gastrointestinal: Soft, Non distended, Normal bowel sounds, Guarding: Mild left lower quadrant tenderness to deep palpation. No guarding no rebound. Back: Mild left CVA tenderness to palpation no guarding no rebound. Musculoskeletal: Normal ROM, normal strength. Neurological: Alert and oriented to person, place, time, and situation, No focal neurological deficit observed. Lymphatics: No lymphadenopathy. Psychiatric: Cooperative. Medical Decision Making Orders Include Previous Orders (Selected) Inpatient Orders Ordered Augmentin 875 mg-125 mg oral tablet: 875 mg, 1 Tab, Oral, 1-Time Discharge: Ordered (Collected) Urine Culture: Ordered (Exam Completed) CR KUB: Completed .Urinalysis Microscopic: ED Adult Fall Risk Assessment: ED Adult Triage: ED Clinical Reconciliation: ED yarn preparation supervisor: HCG Urine Qualitative: Urinalysis w Microscopic if Indicated: . test: UCG-negative. Results review: Lab results : Lab Results 01/27/2019 22:57 EDT HCG Urine Qualitative Negative 01/27/2019 22:42 EDT Urine Type U CleanCatch Urine Color Dark Yellow Urine Appearance Cloudy Urine Specific [place] 1.025 Urine pH Dipstick 6.0 Urine Leukocyte Esterase Moderate Urine Nitrite Negative Urine Protein Dipstick >=300 Urine Glucose Dipstick Negative Urine Ketones Dipstick Negative Urine Urobilinogen Dipstick 0.2 EU/dL Urine Bilirubin Dipstick Negative Urine Blood Dipstick Large Ur RBC 20-50 /HPF Ur WBC 20-50 /HPF Ur WBC Clumps Present Ur Bacteria 2+ Ur Mucous Trace Ur Epithelial Cells 2-5 /HPF . Radiology results: KUB: left ureteral stent in place.. Reexamination/ Reevaluation I reviewed the patient's chart. She list Augmentin as an allergy but she has tolerated this in the past. It appears that she does have some nausea with this. The current ureteral stent that is in place is not attached was straining and therefore cannot be removed in the ER. I will refer her to the on-call urologist. She understands that she must follow-up with him to get this removed by cystoscopy. I will place her on a ten-day course of Augmentin some Flomax and Phenergan. I will culture the urine tonight Impression and Plan Diagnosis Urinary tract infection - Discharge, Emergency medicine, 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 of noncompliance with medical treatment - Discharge, Emergency medicine, Medical Plan Condition: Stable. Prescriptions: Prescription [facility]: promethazine 25 mg oral tablet (Prescribe): 1 Tab, Oral, Q6H, PRN: as needed for nausea/vomiting, 15 Tab, 0 Refill(s) Augmentin 875 mg-125 mg oral tablet (Prescribe): 1 Tab, Oral, Q12H, for 10 Day(s), 20 Tab, 0 Refill(s) Flomax 0.4 mg oral capsule (Prescribe): 1 Cap, Oral, Daily, for 14 Day(s), 14 Cap, 0 Refill(s). Patient was given the following educational materials: Urinary Tract Infection, Adult. Follow up with: NICOLE ERNST Within 2 to 3 days; JUANITA THIBODEAUX Within 1 week. Counseled: Patient. documented in this encounter Plan of Treatment Not on file documented as of this encounter Visit Diagnoses Not on filedocumented in this encounter
--- OUTSIDE RECORDS SUMMARY | 2025-06-07 16:19 | XMS_ITS | Encounter Summary ---
Author Organization [employer] ([place], [place], [place], [place]) Address [address] [place] [address] Care Team Providers Care Sparmaker Name Role Phone Unavailable Primary Care Provider Unavailabl e Encounter Details Date Type Department Care Team (Late st Contact Info) Description 01/27/2019 Transcribed Document [facility] [place] Family Medicine [address] [place] [address] ProviderJulio MD [address] [place] [address] 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 Tobacco Use Types Packs/Day Years [...] MD - 01/27/2019 10:16 PM CDT ED Assessment Entered On: 01/27/2019 22:36 EDT Performed On: 01/27/2019 22:35 EDT by Nicholas White REGISTERED_NURSE_EMERGENCY_ROO ED Quick Look Assessment Level of Consciousness : Alert Affect/Behavior : Calm, Cooperative Orientation : Oriented x 4 Skin Temperature : Warm Nicholas White REGISTERED_NURSE_EMERGENCY_ROO - 01/27/2019 22:35 EDT ED General-Functional Assess Information Obtained From : Patient Preferred Communication Mode : Verbal Communication Barrier : None Primary Language : Nigerien Any Spiritual/Cultural Needs or Requests : No Currently in Unsafe Situation : No Nicholas White REGISTERED[facility]NURSE_EMERGENCY[facility]OO - 01/27/2019 22:35 EDT Social Habits Smoking Status : Other: dips snuff Smokeless Tobacco Status : Smokeless tobacco user within last 30 days Nicholas White REGISTERED_NURSE_EMERGENCY_ROO - 01/27/2019 22:35 EDT 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 (As Of: 01/27/2019 22:36:54 EDT) Tobacco: Use in Last 12 Months: Snuff/Dip. Packs/Tins Daily: 0.5. (Last Updated: 02/24/2015 00:10:45 EDT by GURINDER ABARCA, RN) Alcohol: Alcohol Use History No. (Last Updated: 02/24/2015 00:10:54 EDT by GURINDER ABARCA, RN) Substance Abuse: Use in Last 12 Months: No. (Last Updated: 02/24/2015 00:11:03 EDT by GURINDER ABARCA, RN) EENT Assessment EENT Assessment WDL : WD Nicholas White REGISTERED_NURSE_EMERGENCY_O - 01/27/2019 22:35 EDT Cardiovascular ASMT, ED Cardiovascular Assessment WDL : WD Nicholas White REGISTERED_NURSE_EMERGENCY_ROO - 01/27/2019 22:35 EDT Respiratory Respiratory Assessment WDL : WD Nicholas White REGISTERED_NURSE_EMERGENCY_O - 01/27/2019 22:35 EDT Gastrointestinal ED Gastrointestinal Assessment WDL : WD Nicholas White REGISTERED_NURSE_EMERGENCY_ROO - 01/27/2019 22:35 EDT Genitourinary Assessment, ED Genitourinary Assessment WDL : WD with exceptions Genitourinary Symptoms : Burning with urination, Dysuria, Frequency in urination, Other: left flank pain Nicholas White REGISTERED_NURSE_EMERGENCY_ROO - 01/27/2019 22:35 EDT Musculoskeletal Musculoskeletal Assessment WDL : WD with exceptions Musculoskeletal Assessment Comment : left posterior flank pain WhiteNicholas moreno REGISTERED_NURSE_EMERGENCY_ROO - 01/27/2019 22:35 EDT Integumentary Assessment Skin Temperature : Warm Integumentary Assessment WDL : Lam Hellergs Nicholas REGISTERED_NURSE_EMERGENCY_ROO - 01/27/2019 22:35 EDT Neurologic ASMT, ED Neurologic Assessment WDL : WDNicholas Staley, REGISTERED_NURSE_EMERGENCY_ROO - 01/27/2019 22:35 EDT documented in this encounter Plan of Treatment Not on file documented as of this encounter Visit Diagnoses Not on filedocumented in this encounter
--- OUTSIDE RECORDS SUMMARY | 2025-06-07 16:19 | XMS_ITS | Encounter Summary ---
Author Organization [employer] ([place], [place], [place], [place]) Address [address] [place] [address] Care Team Providers Care Clinical Immunologist Name Role Phone Unavailable Primary Care Provider Unavailabl e Encounter Details Date Type Department Care Team (Late st Contact Info) Description 02/27/2020 Transcribed Document [facility] [place] [address] [place] [address] ProviderJulio MD [address] [place], [place] [id number] 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 Tobacco Use Types Packs/Day Years [...] Note - Julio Van MD - 02/27/2020 4:40 AM CDT Patient: OREN KIM Age: 34 years Sex: Female : 1985 Associated Diagnoses: UTI (urinary tract infection) Author: CODIE RUIZ MD-EMR Basic Information Additional information: Chief Complaint from Nursing Triage Note : Chief Complaint 02/27/2020 4:29 EDT Chief Complaint Pt c/o bilateral flank pain x1 week. +Nausea. hx of kindey stones. Took 800mg motrin this am. . History of Present Illness 34-year-old female presents with right-sided flank pain. History kidney stones and recurrent UTI. No fevers. She states she has had foul-smelling urine. Review of Systems Constitutional symptoms: Negative except [...] Itch-x and itch-x. Acetaminophen-oxyCODONE- Hives.. Medications: (Selected) Prescriptions Prescribed nystatin 100,000 units/g [...] Medical/ Family/ 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 Surgical history: Lithotripsy ([id number]).. Family history: No family history items have [...] Physical Examination Vital Signs Vital Signs/Vital Measures 02/27/2020 4:29 EDT Systolic Blood Pressure 160 mmHg HI Diastolic Blood Pressure 97 mmHg HI Temperature Source Oral Temperature Mode Fahrenheit Temperature, Fahrenheit 98.4 Deg F Clinical Temperature, C 36.9 Deg C Peripheral Pulse Rate 102 bpm HI Respiratory Rate 18 Breaths/Min Oxygen Saturation 98 % Oxygen Therapy Mode Room air . Measurements 02/27/2020 4:29 EDT Height Source Stated Height Entry Format [place] Height/Length, ARMENIAN (ft) 5 ft Height/Length ARMENIAN 2 Inch CLINICALHEIGHT 157.48 cm [place] Body Weight 49.73 kg Weight Source, ED Critical estimated dosing weight Weight Entry Format [place] Weight Lebanese lb 230 lb CLINICALWEIGHT 104.55 kg Body Surface Area (BSA) 2.03 m2 Body Mass Index 42.2 kg/m2 >HHI . Oxygen Saturation 02/27/2020 4:29 EDT Oxygen Saturation 98 % . General: Alert, no acute distress. Skin: Warm, dry. Head: Normocephalic. Eye: Pupils are equal, round and reactive to light, extraocular movements are intact. Cardiovascular: Regular rate and rhythm. Respiratory: Lungs are clear to auscultation. Gastrointestinal: Soft, Non distended. Musculoskeletal: Normal ROM. Neurological: Alert and oriented to person, place, time, and situation. Psychiatric: Cooperative. Medical Decision Making Differential Diagnosis: Abdominal pain, urinary tract infection. Documents reviewed: Emergency department nurses' notes. Results review: Lab results : Lab Results 02/27/2020 4:36 EDT Urine Type U CleanCatch Urine Color Yellow Urine Appearance Cloudy Urine Specific [place] >=1.030 Urine pH Dipstick 6.0 Urine Leukocyte Esterase Trace Urine Nitrite Negative Urine Protein Dipstick Negative Urine Glucose Dipstick Negative Urine Ketones Dipstick Negative Urine Urobilinogen Dipstick 0.2 EU/dL Urine Bilirubin Dipstick Negative Urine Blood Dipstick Trace - Intact Ur RBC 5-10 /HPF Ur WBC 10-20 /HPF Ur Bacteria 3+ Ur Squamous Epithelial Cells 10-20 /HPF Ur Calcium Oxalate Crystals 2+ . Impression and Plan Diagnosis UTI (urinary tract infection) - Discharge, Emergency medicine, Medical Plan Prescriptions: Prescription [facility]: Macrobid 100 mg oral capsule (Prescribe): 1 Cap, Oral, BID, for 7 Day(s), 14 Cap, 0 Refill(s). Patient was given the following educational materials: Urinary Tract Infection, Adult, Urinary Tract Infection, Adult. Follow up with: NICOLE ERNST Within 2 to 3 days; Follow up with primary care provider Within 2 to 3 days Take all antibiotics as prescribed. Take Benadryl when you take these if you have allergic reaction. Return if worse.. documented in this encounter Plan of Treatment Not on file documented as of this encounter Visit Diagnoses Not on filedocumented in this encounter
--- OUTSIDE RECORDS SUMMARY | 2025-06-07 16:19 | XMS_ITS | Encounter Summary ---
Author Organization [employer] ([place], [place], [place], [place]) Address [address] [place] [address] Care Team Providers Care Plan Examiner Name Role Phone Unavailable Primary Care Provider Unavailabl e Encounter Details Date Type Department Care Team (Late st Contact Info) Description 02/27/2020 Transcribed Document [facility] [place] [address] [place] [address] ProviderJulio MD [address] [place] [address] 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 Tobacco Use Types Packs/Day Years [...] ProviderMD - 02/27/2020 4:25 AM CDT ED Assessment Entered On: 02/27/2020 5:12 EDT Performed On: 02/27/2020 5:00 EDT by Candelaria Albert RN ED Quick Look Assessment Level of Consciousness : Alert, Awake Affect/Behavior : Appropriate, Calm, Cooperative Orientation : Oriented x 4 Skin Temperature : Warm Skin Description : Normal for ethnicity Candelaria Albert RN - 02/27/2020 5:11 EDT ED General-Functional Assess Information Obtained From : Patient Preferred Communication Mode : Verbal Communication Barrier : None Primary Language : Botswanan Any Spiritual/Cultural Needs or Requests : No Currently in Unsafe Situation : No Candelaria Albert RN - 02/27/2020 5:11 EDT Social Habits Smoking Status : Never (less than 100 in lifetime; none in last 30 days) Smokeless Tobacco Status : Never Desires Tobacco Cessation Calc : 0 Candelaria Albert RN - 02/27/2020 5:11 EDT 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 (As Of: 02/27/2020 05:12:04 EDT) Tobacco: Use in Last 12 Months: [...] with exceptions Genitourinary Symptoms : Frequency in urination Urine Odor : Foul Urinary Elimination : Voiding Candelaria Albert RN - 02/27/2020 5:11 EDT documented in this encounter Plan of Treatment Not on file documented as of this encounter Visit Diagnoses Not on filedocumented in this encounter
--- OUTSIDE RECORDS SUMMARY | 2025-06-07 16:20 | XMS_ITS | Encounter Summary ---
Author Organization [employer] ([place], [place], [place], [place]) Address [address] [place] [address] Care Team Providers Care Blasting Gang Miner Name Role Phone Unavailable Primary Care Provider Unavailabl e Encounter Details Date Type Department Care Team (Late st Contact Info) Description 01/28/2019 Transcribed Document [facility] [place] [address] [place] [address] ProviderJulio MD [address] [place] [address] 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 Tobacco Use Types Packs/Day Years Used Date Smoking Tobacco: Never Assessed Comments Unknown Sex and Gender Information Value Date Recorded Sex Assigned at Female 03/12/2022 2:43 PM CDT Legal Sex Female 5:44 PM CDT Gender Identity Female 03/12/2022 2:43 PM CDT Sexual Orientation Not on file documented as of this encounter Miscellaneous Notes * Cerner Conversion Note - Historical ProviderMD - 01/28/2019 4:44 PM CDT CR Abdomen 1 Vw Ordered: 01/27/2019 Auth (Verified) Reason for Exam: evalulate left stent 01/28/2019 13:29 01/28/2019 16:44 (JANIS MCCORMACK PA) Reviewed by Provider, No further action required x1 Electronically signed by Eron [facility] Conversion Professional Driver Cerner at 12/29/2022 4:07 PM CDT documented in this encounter Plan of Treatment Not on file documented as of this encounter Visit Diagnoses Not on filedocumented in this encounter
--- OUTSIDE RECORDS SUMMARY | 2025-06-07 16:20 | XMS_ITS | Encounter Summary ---
Author Organization [employer] ([place], [place], [place], [place]) Address [address] [place] [address] Care Team Providers Care Radiagraph Operator Name Role Phone Unavailable Primary Care Provider Unavailabl e Encounter Details Date Type Department Care Team (Late st Contact Info) Description 01/30/2019 Transcribed Document [facility] [place] [address] [place] [address] ProviderJulio MD [address], [place] [id number] 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 Tobacco Use Types Packs/Day Years Used Date Smoking Tobacco: Never Assessed Comments Unknown Sex and Gender Information Value Date Recorded Sex Assigned at Female 03/12/2022 2:43 PM CDT Legal Sex Female 5:44 PM CDT Gender Identity Female 03/12/2022 2:43 PM CDT Sexual Orientation Not on file documented as of this encounter Miscellaneous Notes * Cerner Conversion Note - Julio ProviderMD - 01/30/2019 2:51 PM CDT Urine Culture Collected: 01/28/2019 Esccol Complete Body site: Specimen Type: U CleanCatch 01/30/2019 08:10 01/30/2019 14:51 (VINCE THOMAS ARNP) Reviewed by Provider, No further action required, Called, No Answer Patient had a positive urine culture results,??bacteria is resistant to ampicillin. Patient was started on Augmentin. Attempted to contact patient by telephone.??I was unable to reach patient. Discussed patient with Dr. Garcia, patient has multiple drug allergies.??Advised have patient follow with her primary care doctor to review urine culture results and changing of antibiotics if needed.??A certified letter will be sent the patient regarding the above information 01/30/2019 14:48 (VINCE THOMAS ARNP) Patient Letter Sent. documented in this encounter Plan of Treatment Not on file documented as of this encounter Visit Diagnoses Not on filedocumented in this encounter
--- OUTSIDE RECORDS SUMMARY | 2025-06-07 16:20 | XMS_ITS | Encounter Summary ---
Author Organization [employer] ([place], [place], [place], [place]) Address [address] [place] [address] Care Team Providers Care Instructional Materials Director Name Role Phone Unavailable Primary Care Provider Unavailabl e Encounter Details Date Type Department Care Team (Late st Contact Info) Description 04/12/2020 Transcribed Document [facility] [place] [address] [place] [address] ProviderJulio MD [address] [place], [place] [address] 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 Tobacco Use Types Packs/Day Years [...] Note - Julio Van MD - 04/12/2020 5:05 AM CDT [facility] [address] [place] [address] OREN KIM :1985 Visit Time:04/12/2020 Your Visit Summary Your Care Team Primary Provider: CARLITOS BLOUNT MD-EMR Secondary Provider: Your Diagnosis Acute UTI Flank pain, Flank pain Medical Information You may obtain [...] 2 to 3 days Where: [address] [facility] [address] [employer] (1) Allergies most abx Keflex Toradol amoxicillin-clavulanate (SOA, SOA) cefaclor ciprofloxacin (HIVES, HIVES) codeine doxycycline (RASH/SOA, RASH/SOA) gatifloxacin midazolam nitrofurantoin (RASH/SOA, RASH/SOA) ondansetron sulfa drugs Immunizations This Visit No Immunizations Found Medications What How Much When Instructions Next Dose acetaminophen-hydrocodone ([place] 7.5 mg-325 mg oral tablet) 1 Tablet(s) Oral Every 6 Hours as needed for as needed for pain Printed Prescription levoFLOXacin (Levaquin 750 mg oral tablet) 1 Tablet(s) Oral Interval Every 24 Hours Duration: 7 Day(s) Printed Prescription promethazine (promethazine 25 mg oral tablet) 1 Tablet(s) Oral Every 6 Hours as needed for as needed for nausea/vomiting Printed Prescription albuterol (albuterol HFA 90 mcg/ inh inhalation aerosol) Inhalation Four Times A Day busPIRone (BuSpar) Oral Two Times A Day gabapentin Oral hydrOXYzine (Vistaril) Oral Four Times A Day OLANZapine (ZyPREXA) Every Day paroxetine (Paxil 40 mg oral tablet) 1 Tablet(s) Oral Every Day The home medications listed are only [...] This Visit (last charted value for your 04/12/2020 visit) Urinalysis 04/12/2020 3:14 AM Specimen Type, Urine POC: Urine 04/12/2020 3:06 AM Ur RBC: 2-5 /HPF Urine Nitrite: Negative Urine Leukocyte Esterase: Small Ur Epithelial Cells: 2-5 /HPF Urine Appearance: Cloudy Urine Glucose Dipstick: Negative Ur Renal Epithelial Cells: 0-2 /HPF Urine Blood Dipstick: Trace - Intact Urine Type: U CleanCatch Urine Urobilinogen Dipstick: 0.2 EU/dL Urine Protein Dipstick: Negative Ur Amorph: Trace Ur Bacteria: 2+ Ur WBC Clumps: Present Urine Color: Yellow Ur Transitional Epi Cells: 0-2 Ur WBC: 20-50 /HPF Urine Ketones Dipstick: Negative Ur Mucous: Trace Urine pH Dipstick: 6.5 -- Normal range between ( 6.0 and 8.0 ) Urine Bilirubin Dipstick: Negative Urine Specific [place]: >=1.030 -- Normal range between ( 1.005 and 1.030 ) Endocrinology 04/12/2020 3:06 AM HCG Urine Qualitative: Negative Education Materials [...] this condition includes: ??? Antibiotic medicine. ??? Icnj-sqa-tktvwic medicines to treat discomfort. ??? Drinking enough [...] these instructions at home: Medicines ??? Take dqqe-upz-mlblpph and prescription medicines only as told by [...] 06/09/2006 Document Revised: 08/17/2019 Document Reviewed: 03/09/2019 [employer] Patient Education ?? 2020 [employer]. Emergency Awareness and Preventative Care STROKE is [...] Assistance with quitting is available by contacting 9-576-UXKI-NOW. This is a free resource providing counseling, [...] was given the opportunity to ask questions. Patient/Chemistry Intern Name: Patient/Chemistry Intern Signature: Relationship to Patient: Clinician/Hospital Chemistry Intern Signature: Please Provide a Telephone Number Where You Can Be Reached: Is it Permissible To Leave a Message? Date: documented in this encounter Plan of Treatment Not on file documented as of this encounter Visit Diagnoses Not on filedocumented in this encounter
--- OUTSIDE RECORDS SUMMARY | 2025-06-07 16:20 | XMS_ITS | Encounter Summary ---
Author Organization [employer] ([place], [place], [place], [place]) Address [address] [place] [address] Care Team Providers Care Surveillance Systems Engineer Name Role Phone Unavailable Primary Care Provider Unavailabl e Encounter Details Date Type Department Care Team (Late st Contact Info) Description 05/18/2020 Transcribed Document [facility] [place] [address] [place] [address] ProviderJulio MD [address] [place] [address] 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 Tobacco Use Types Packs/Day Years Used Date Smoking Tobacco: Never Assessed Comments Unknown Sex and Gender Information Value Date Recorded Sex Assigned at Female 03/12/2022 2:43 PM CDT Legal Sex Female 5:44 PM CDT Gender Identity Female 03/12/2022 2:43 PM CDT Sexual Orientation Not on file documented as of this encounter Miscellaneous Notes * Cerner Conversion Note - Historical ProviderMD - 05/18/2020 10:35 PM CDT Electronically signed by Eron [facility] Conversion Yardage Control Clerk Cerjane at 12/29/2022 4:06 PM CDT documented in this encounter Plan of Treatment Not on file documented as of this encounter Visit Diagnoses Not on filedocumented in this encounter
--- OUTSIDE RECORDS SUMMARY | 2025-06-07 16:20 | XMS_ITS | Encounter Summary ---
Author Organization [employer] ([place], [place], [place], [place]) Address [address] [place] [address] Care Team Providers Care Sewer Maintenance Supervisor Name Role Phone Unavailable Primary Care Provider Unavailabl e Encounter Details Date Type Department Care Team (Late st Contact Info) Description 06/29/2019 Transcribed Document [facility] [place] Family [place] [address] [place] [address] ProviderJulio MD [address] [place] [address] 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 Tobacco Use Types Packs/Day Years [...] Conversion Note - Julio Van MD - 06/29/2019 8:57 PM CDT Pain Assessment Entered On: 06/29/2019 21:53 EDT Performed On: 06/29/2019 21:53 EDT by Fabiana Cee RN Intervention Information: morphine Performed by Latrice Packer RN on 06/29/2019 21:05:00 EDT morphine,8mg IntraMuscular,Right Gluteus Medius Pain Assessment Pain Assessment : Follow-up assessment Pain Scale Used : 0-10 Scale Fabiana Cee RN - 06/29/2019 21:53 EDT Pain Scale Intensity : 7 Fabiana Cee RN - 06/29/2019 21:53 EDT Image 4 - Images currently included in the form version of this document have not been included in the text rendition version of the form. documented in this encounter Plan of Treatment Not on file documented as of this encounter Visit Diagnoses Not on filedocumented in this encounter
--- OUTSIDE RECORDS SUMMARY | 2025-06-07 16:20 | XMS_ITS | Encounter Summary ---
Author Organization [employer] ([place], [place], [place], [place]) Address [address] [place] [address] Care Team Providers Care Dealmaker Name Role Phone Unavailable Primary Care Provider Unavailabl e Encounter Details Date Type Department Care Team (Late st Contact Info) Description 01/28/2019 Transcribed Document [facility] [place] [address] [place] [address] ProviderJulio MD [address] [place], [place] [address] 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 Tobacco Use Types Packs/Day Years [...] Conversion Note - Julio Van MD - 01/28/2019 12:06 AM CDT [facility] [address] [place] [address] ROEN KIM :1985 Visit Time:01/27/2019 Your Visit Summary Your Care Team Admitting Physician - CARLITOS BLOUNT MD-EMR Attending Physician - CARLITOS BLOUNT MD-EMR Primary Care Physician - NICOLE ERNST (REF), MEDIA ANALYST-FAM Referring Physician - CARLITOS BLOUNT MD-EMR Your Diagnosis Flank pain History of noncompliance with medical treatment Urinary tract infection Patient Portal Reminder: Be sure to sign up for the [facility] patient portal, which gives you 05/04 access to your medical information ??? including these discharge instructions ??? using your computer, smartphone, or tablet. Just go to [employer] to get started. Questions? Call . You may also obtain a copy of your Emergency Department [...] do next Follow-Up Appointments Follow Up with JUANITA THIBODEAUX When Within 1 week Where: [address] [place], [place] [id number] [facility] (1) Follow Up with NICOLE ERNST When Within 2 to 3 days Where: [address] [facility] (1) Allergies most abx Keflex Toradol amoxicillin-clavulanate (SOA, SOA) cefaclor ciprofloxacin (HIVES, HIVES) codeine doxycycline (RASH/SOA, RASH/SOA) gatifloxacin midazolam nitrofurantoin (RASH/SOA, RASH/SOA) ondansetron sulfa drugs Immunizations This Visit No Immunizations Found Medications What How Much When Instructions Next Dose amoxicillin-clavulanate (Augmentin 875 mg-125 mg oral tablet) 1 Tablet(s) Oral Every 12 hours Duration: 10 Day(s) Printed Prescription promethazine (promethazine 25 mg oral tablet) 1 Tablet(s) Oral Every 6 Hours as needed for as needed for nausea/vomiting Printed Prescription tamsulosin (Flomax 0.4 mg oral capsule) 1 Capsule(s) Oral Every Day Duration: 14 Day(s) Printed Prescription albuterol (albuterol HFA 90 mcg/ inh inhalation aerosol) Inhalation Four Times A Day busPIRone (BuSpar) Oral Two Times A Day gabapentin Oral hydrOXYzine (hydrOXYzine hydrochloride 25 mg oral tablet) ibuprofen (ibuprofen 800 mg oral tablet) paroxetine (Paxil 40 mg oral tablet) 1 Tablet(s) Oral Every Day tiZANidine (tiZANidine 6 mg oral capsule) 1 Capsule(s) Oral Three Times A Day traZODone Oral The home medications listed are only as [...] This Visit (last charted value for your 01/27/2019 visit) Urinalysis 01/27/19 22:42:00 Ur RBC: 20-50 /HPF Urine Nitrite: Negative Urine Leukocyte Esterase: Moderate Ur Epithelial Cells: 2-5 /HPF Urine Appearance: Cloudy Urine Glucose Dipstick: Negative Urine Blood Dipstick: Large Urine Type: U CleanCatch Urine Urobilinogen Dipstick: 0.2 EU/dL Urine Protein Dipstick: >=300 Ur Bacteria: 2+ Ur WBC Clumps: Present Urine Color: Dark Yellow Ur WBC: 20-50 /HPF Urine Ketones Dipstick: Negative Ur Mucous: Trace Urine pH Dipstick: 6.0 -- Normal range between ( 6.0 and 8.0 ) Urine Bilirubin Dipstick: Negative Urine Specific [place]: 1.025 -- Normal range between ( 1.005 and 1.030 ) [facility] 01/27/19 22:57:00 HCG Urine Qualitative: Negative Education Materials Urinary [...] treat less common causes of UTI. ??? Efaz-ilb-lmgkruy medicines to treat pain. ??? Drinking enough water to stay hydrated. Follow these instructions at home: ??? Take kszi-hrx-khryvwk and prescription medicines only as told by [...] 06/09/2006 Document Revised: 02/22/2018 Document Reviewed: 07/20/2016 [employer] Interactive Patient Education ?? 2019 [employer]. Emergency Awareness and Preventative Care STROKE is [...] Assistance with quitting is available by contacting 0-623-AGBVDebtLESS CommunityNOW. This is a free resource providing counseling, [...] including: emergency, radiology, or pathology physicians. Patient Name:KIMOREN Eliz I have received this information and was given the opportunity to ask questions. Patient/Fur Trapper Name: Patient/Fur Trapper Signature: Relationship to Patient: Clinician/Hospital Fur Trapper Signature: Please Provide a Telephone Number Where You Can Be Reached: Is it Permissible To Leave a Message? Date: Electronically signed by Eron, [facility] Conversion Sap Bw Consultant Vijay at 12/29/2022 4:02 PM CDT documented in this encounter Plan of Treatment Not on file documented as of this encounter Visit Diagnoses Not on filedocumented in this encounter
--- OUTSIDE RECORDS SUMMARY | 2025-06-07 16:20 | XMS_ITS | Encounter Summary ---
Author Organization [employer] ([place], [place], [place], [place]) Address [address] [place] [address] Care Team Providers Care Clinical Medical Assistant Name Role Phone Unavailable Primary Care Provider Unavailabl e Encounter Details Date Type Department Care Team (Late st Contact Info) Description 04/12/2020 Transcribed Document [facility] [place] [address] [place] [address] ProviderJulio MD [address] [place] [address] 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 Tobacco Use Types [...] Cerner Conversion Note - Julio ProviderMD - 04/12/2020 2:57 AM CDT ED Assessment Entered On: 04/12/2020 3:04 EDT Performed On: 04/12/2020 2:59 EDT by Sharri Espinoza, [employer] Quick Look Assessment Level of Consciousness : Alert, Awake Affect/Behavior : Appropriate, Calm, Cooperative Orientation : Oriented x 4 Skin Temperature : Warm Skin Description : Normal for ethnicity Sharri Espinoza RN - 04/12/2020 2:59 EDT ED General-Functional Assess Information Obtained From : Patient Preferred Communication Mode : Verbal Communication Barrier : None Primary Language : Montserratian Any Spiritual/Cultural Needs or Requests : No Currently in Unsafe Situation : No Sharri Espinoza RN - 04/12/2020 2:59 EDT Social Habits Smoking Status : Never (less than 100 in lifetime; none in last 30 days) Smokeless Tobacco Status : Smokeless tobacco user within last 30 days Desires Tobacco Cessation Medication : No Reason for No Tobacco Cessation Medication : Refuses FDA approved medications Desires Tobacco Cessation Calc : 1 Sharri Espinoza RN - 04/12/2020 2:59 EDT 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 (As Of: 04/12/2020 03:04:29 EDT) Tobacco: Use in Last 12 Months: Snuff/Dip. Packs/Tins Daily: 0.5. (Last Updated: 02/24/2015 00:10:45 EDT by GURINDER ABARCA, RN) Alcohol: Alcohol Use History No. (Last Updated: 02/24/2015 00:10:54 EDT by GURINDER ABARCA, RN) Substance Abuse: Use in Last 12 Months: No. (Last Updated: 02/24/2015 00:11:03 EDT by GURINDER ABARCA, RN) Genitourinary Assessment, ED Genitourinary Assessment WDL : WDL with exceptions Genitourinary Assessment Comment : pt has c/o pain upon urination x 3 days. pt has hx of kidney stones. Sharri Espinoza RN - 04/12/2020 2:59 EDT Electronically signed by Rachel Littlejohn Conversion Internal Combustion Engine Inspector Cerner at 12/29/2022 4:24 PM CDT documented in this encounter Plan of Treatment Not on file documented as of this encounter Visit Diagnoses Not on filedocumented in this encounter
--- OUTSIDE RECORDS SUMMARY | 2025-06-07 16:20 | XMS_ITS | Encounter Summary ---
Author Organization [employer] ([place], [place], [place], [place]) Address [address] [place] [address] Care Team Providers Care Merry Go Round Attendant Name Role Phone Unavailable Primary Care Provider Unavailabl e Encounter Details Date Type Department Care Team (Late st Contact Info) Description 06/29/2019 Transcribed Document [facility] [place] Family Medicine [address] [place] [address] ProviderJulio MD [address] [place] [address] 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 Tobacco Use Types Packs/Day Years [...] Note - Julio Van MD - 06/29/2019 8:29 PM CDT ED Assessment Entered On: 06/29/2019 20:40 EDT Performed On: 06/29/2019 20:39 EDT by Latrice Packer RN ED Quick Look Assessment Level of Consciousness : Alert, Awake Affect/Behavior : Appropriate, Calm Orientation : Oriented x 4 Skin Temperature : Warm Skin Description : Dry Latrice Packer RN - 06/29/2019 20:39 EDT ED General-Functional Assess Information Obtained From : Patient Preferred Communication Mode : Verbal Communication Barrier : None Primary Language : Serbian Any Spiritual/Cultural Needs or Requests : No Currently in Unsafe Situation : No Latrice Packer RN - 06/29/2019 20:39 EDT Social Habits Smoking Status : Never (less than 100 in lifetime; none in last 30 days) Smokeless Tobacco Status : Refused tobacco status screen Desires Tobacco Cessation Calc : 0 Latrice Packer RN - 06/29/2019 20:39 EDT 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 (As Of: 06/29/2019 20:40:23 EDT) Tobacco: Use in Last 12 Months: Snuff/Dip. Packs/Tins Daily: 0.5. (Last Updated: 02/24/2015 00:10:45 EDT by GURINDER ABARCA, EVE) Alcohol: Alcohol Use History No. (Last Updated: 02/24/2015 00:10:54 EDT by GURINDER ABARCA, EVE) Substance Abuse: Use in Last 12 Months: No. (Last Updated: 02/24/2015 00:11:03 EDT by GURINDER ABARCA, EVE) Genitourinary Assessment, ED Genitourinary Assessment WDL : WDL with exceptions Genitourinary Symptoms : Dysuria Urine Description : Cloudy Urine Odor : Foul Latrice Packer RN - 06/29/2019 20:39 EDT Electronically signed by Rachel Littlejohn Conversion Ticket Collector Or Usher Cerner at 12/29/2022 4:12 PM CDT documented in this encounter Plan of Treatment Not on file documented as of this encounter Visit Diagnoses Not on filedocumented in this encounter
--- OUTSIDE RECORDS SUMMARY | 2025-06-07 16:20 | XMS_ITS | Encounter Summary ---
Author Organization [employer] ([place], [place], [place], [place]) Address [address] [place] [address] Care Team Providers Care Tool Designer Apprentice Name Role Phone Unavailable Primary Care Provider Unavailabl e Encounter Details Date Type Department Care Team (Late st Contact Info) Description 05/18/2020 Transcribed Document [facility] [place] Family Medicine [address] [place] [address] ProviderJulio MD [address] [place] [address] 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 Tobacco Use Types Packs/Day Years Used Date Smoking Tobacco: Never Assessed Comments Unknown Sex and Gender Information Value Date Recorded Sex Assigned at Female 03/12/2022 2:43 PM CDT Legal Sex Female 5:44 PM CDT Gender Identity Female 03/12/2022 2:43 PM CDT Sexual Orientation Not on file documented as of this encounter Miscellaneous Notes * Cerner Conversion Note - Julio ProviderMD - 05/18/2020 10:46 PM CDT [facility] [address] [place] [address] PERSON INFORMATION Name OREN KIM Age 34 Years 1985 Sex Female Language Japanese PCP NICOLE ERNST APRN-FAM Marital Status Single Med Service Emergency Medicine Acct# Arrival 05/18/2020 21:33:00 Visit Reason Flank pain; PT STATES ABD PAIN, POSS KIDNEY STONE Acuity 3 - Urgent LOS 000 01:13 Depart Date: 00:00 AM [facility] [address] [facility] [id number] Comment: PROVIDER INFORMATION Provider Role Assigned Unassigned LESLIE WHITMORE DO ED Physician 05/18/2020 21:34:21 Farzaneh Rico, HEEL SEAT FILLER Nurse 05/18/2020 22:19:54 DIAGNOSIS Abdominal pain; Right flank pain; UTI (urinary tract infection) PHYS DOC NOTES VITALS INFORMATION Vital Sign Triage Latest Temp Source Oral Oral Temp Mode Fahrenheit Fahrenheit Temp Fahrenheit 99.0 Deg F 99.0 Deg F Temp Celsius 02 Sat 96 % 96 % Respiratory Rate 18 Breaths/Min 18 Breaths/Min Peripheral Pulse Rate 105 bpm 105 bpm Apical Heart Rate Blood Pressure 209 mmHg / 102 mmHg 209 mmHg / 102 mmHg Comment: MEDICAL INFORMATION Allergy Info: Toradol; Keflex; sulfa drugs; gatifloxacin; ondansetron; midazolam; nitrofurantoin; amoxicillin-clavulanate; cefaclor; doxycycline; codeine; ciprofloxacin; most abx Medications: Comment: DISCHARGE INFORMATION Discharge Disposition: Discharge Location: PATIENT EDUCATION INFORMATION Instructions: Urinary Tract Infection, Adult; Abdominal Pain, Adult Follow up: With: Address: When: NICOLE ERNST [address] [address] [facility] () Within 2 to 3 days Comment: documented in this encounter Plan of Treatment Not on file documented as of this encounter Visit Diagnoses Not on filedocumented in this encounter
--- OUTSIDE RECORDS SUMMARY | 2025-06-07 16:20 | XMS_ITS | Encounter Summary ---
Author Organization [employer] ([place], [place], [place], [place]) Address [address] [place] [address] Care Team Providers Care Commercial Loan Manager Name Role Phone Unavailable Primary Care Provider Unavailabl e Encounter Details Date Type Department Care Team (Late st Contact Info) Description 06/29/2019 Transcribed Document [facility] [place] Family Medicine [address] [place] [address] ProviderJulio MD [address] [place] [address] 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 Tobacco Use Types Packs/Day Years [...] MD - 06/29/2019 8:29 PM CDT ED Triage Entered On: 06/29/2019 20:37 EDT Performed On: 06/29/2019 20:33 EDT by Latrice Packer RN ED Triage Across the Room Triage Date/Time : 06/29/2019 20:33 EDT Chief Complaint : C/O left lower back pain. with painful urination. Onset last week. Latrice Packer RN - 06/29/2019 20:33 EDT DCP GENERIC CODE Tracking Acuity : 3 - Urgent Tracking Group : [facility] ED Latrice Ghosh RN - 06/29/2019 20:33 EDT Mode of Arrival : Ambulatory Transported to ED by : Private vehicle To Room Via : Ambulate Accompanied By : Friend ED Vital Signs : Document Height & Weight : Document ED Allergies : Document ED Reason for Visit : Document Status : Hysterectomy Tetanus Immunization : Less than 5 years Latrice Packer RN - 06/29/2019 20:33 EDT Infectious Disease History Infectious Disease History : Chicken pox/Shingles, Influenza Fever/Chills Last 48 Hours : No Travel To Regions with Travel Advisories : No Travel Outside [place] Within Last 30 Days : No Contact With Traveler to Advisory Region : No Tuberculosis Symptoms : None Latrice Packer RN - 06/29/2019 20:33 EDT Vital Signs ED Temperature Source : Oral Temperature Mode : Fahrenheit Temperature, Fahrenheit : 98.2 Deg F ED Pain : Yes Clinical Temperature, C : 36.8 Deg C Oxygen Therapy Mode : Room air Peripheral Pulse Rate : 114 bpm (HI) Respiratory Rate : 18 Breaths/Min Blood Pressure Location : Arm, right upper Blood Pressure Source : Non-Invasive BP Device Systolic Blood Pressure : 184 mmHg (HI) Diastolic Blood Pressure : 102 mmHg (HI) Oxygen Saturation : 96 % Latrice Packer RN - 06/29/2019 20:33 EDT Allergy (As Of: 06/29/2019 20:37:57 EDT) Allergies (Active) most abx Estimated Onset Date: Unspecified ; Created By: MANPREET Magdaleno; Reaction Status: Active ; Category: Drug ; Substance: most abx ; Type: Allergy ; Updated By: MANPREET Magdaleno; Reviewed Date: 06/29/2019 20:37 EDT amoxicillin-clavulanate Estimated Onset Date: Unspecified ; Reactions: SOA, SOA ; Created By: MANPREET Magdaleno; Reaction Status: Active ; Category: Drug ; Substance: amoxicillin-clavulanate ; Type: Allergy ; Updated By: MANPREET Magdaleno; Reviewed Date: 06/29/2019 20:37 EDT cefaclor Estimated Onset Date: Unspecified ; Created By: MANPREET Magdaleno; Reaction Status: Active ; Substance: cefaclor ; Updated By: MANPREET Magdaleno; Reviewed Date: 06/29/2019 20:37 EDT ciprofloxacin Estimated Onset Date: Unspecified ; Reactions: HIVES, HIVES ; Created By: MANPREET Magdaleno; Reaction Status: Active ; Substance: ciprofloxacin ; Updated By: MANPREET Magdaleno; Reviewed Date: 06/29/2019 20:37 EDT codeine Estimated Onset Date: Unspecified ; Created By: LORE JARQUIN RN; Reaction Status: Active ; Category: Drug ; Substance: codeine ; Type: Allergy ; Updated By: LORE JARQUIN RN; Reviewed Date: 06/29/2019 20:37 EDT doxycycline Estimated Onset Date: Unspecified ; Reactions: RASH/SOA, RASH/SOA ; Created By: MANPREET Magdaleno; Reaction Status: Active ; Category: Drug ; Substance: doxycycline ; Type: Allergy ; Updated By: MANPREET Magdaleno; Reviewed Date: 06/29/2019 20:37 EDT gatifloxacin Estimated Onset Date: Unspecified ; Created By: MANPREET Magdaleno; Reaction Status: Active ; Substance: gatifloxacin ; Updated By: MANPREET Magdaleno; Reviewed Date: 06/29/2019 20:37 EDT Keflex Estimated Onset Date: Unspecified ; Created By: Cathi Green RN; Reaction Status: Active ; Category: Drug ; Substance: Keflex ; Type: Allergy ; Updated By: Cathi Green RN; Reviewed Date: 06/29/2019 20:37 EDT midazolam Estimated Onset Date: Unspecified ; Created By: MANPREET Magdaleno; Reaction Status: Active ; Category: Drug ; Substance: midazolam ; Type: Allergy ; Updated By: MANPREET Magdaleno; Reviewed Date: 06/29/2019 20:37 EDT nitrofurantoin Estimated Onset Date: Unspecified ; Reactions: RASH/SOA, RASH/SOA ; Created By: MANPREET Magdaleno; Reaction Status: Active ; Category: Drug ; Substance: nitrofurantoin ; Type: Allergy ; Updated By: MANPREET Magdaleno; Reviewed Date: 06/29/2019 20:37 EDT ondansetron Estimated Onset Date: Unspecified ; Created By: MANPREET Magdaleno; Reaction Status: Active ; Category: Drug ; Substance: ondansetron ; Type: Allergy ; Updated By: Contributor_systemMANPREET; Reviewed Date: 06/29/2019 20:37 EDT sulfa drugs Estimated Onset Date: Unspecified ; Created By: Contributor_MANPREET patterson; Reaction Status: Active ; Substance: sulfa drugs ; Updated By: Contributor_MANPREET patterson; Reviewed Date: 06/29/2019 20:37 EDT Toradol Estimated Onset Date: Unspecified ; Created By: Cathi Green RN; Reaction Status: Active ; Category: Drug ; Substance: Toradol ; Type: Allergy ; Updated By: Cathi Green RN; Reviewed Date: 06/29/2019 20:37 EDT Diagnosis Control ED (As Of: 06/29/2019 20:37:57 EDT) Problems(Active) Kidney stones (SNOMED CT :029470475 ) Name of Problem: Kidney stones ; Recorder: MANFRED CAI PA; Confirmation: Confirmed ; Classification: Medical ; Code: [id number] ; Contributor System: [facility] ; Last Updated: 10/24/2015 13:26 EST ; Life Cycle Date: 10/24/2015 ; Life Cycle Status: Active ; Responsible Provider: MANFRED CAI PA; Vocabulary: SNOMED CT PTSD (post-traumatic stress disorder) (SNOMED CT :22209198 ) Name of Problem: PTSD (post-traumatic stress disorder) ; Recorder: MANFRED CAI PA; Confirmation: Confirmed ; Classification: Medical ; Code: [id number] ; Contributor System: [facility] ; Last Updated: 10/24/2015 13:26 EST ; Life Cycle Date: 10/24/2015 ; Life Cycle Status: Active ; Responsible Provider: MANFRED CAI PA; Vocabulary: SNOMED CT Diagnoses(Active) Back pain Date: 06/29/2019 ; Diagnosis Type: Reason For Visit ; Confirmation: Complaint of ; Clinical Dx: Back pain ; Classification: Medical ; Clinical Service: Emergency medicine ; Code: PNED ; Probability: 0 ; Diagnosis Code: [id number] Urination painful Date: 06/29/2019 ; Diagnosis Type: Reason For Visit ; Confirmation: Complaint of ; Clinical Dx: Urination painful ; Classification: Medical ; Clinical Service: Emergency medicine ; Code: PNED ; Probability: 0 ; Diagnosis Code: [id number] ED Height and Weight Height Source : Stated Height Entry Format : [place] Height, Feet : 5 ft(Converted to: 152 cm, 60 Inch) Height, Inches : 2 Inch(Converted to: 0 ft 2 Inch, 5.08 cm) Clinical Height : 157.48 cm Weight Source, ED : Critical estimated dosing weight Weight Entry Format : [place] Weight, Pounds : 220 lb Clinical Dosing Weight : 100 kg Body Surface Area (BSA) : 1.99 m2 Body Mass Index : 40.3 kg/m2 (>HHI) [place] Body Weight (IBW) : 49.73 kg Latrice Packer RN - 06/29/2019 20:33 EDT Pain Assessment Pain Assessment : Initial assessment Pain Scale Used : 0-10 Scale Location : Back, lower Latrice Packer RN - 06/29/2019 20:33 EDT Pain Scale Intensity : 8 Latrice Packer RN - 06/29/2019 20:33 EDT Image 4 - Images currently included in the form version of this document have not been included in the text rendition version of the form. Electronically signed by Rachel Littlejohn Conversion Public Relations Consultant Cerner at 12/29/2022 4:05 PM CDT documented in this encounter Plan of Treatment Not on file documented as of this encounter Visit Diagnoses Not on filedocumented in this encounter
--- OUTSIDE RECORDS SUMMARY | 2025-06-07 16:20 | XMS_ITS | Encounter Summary ---
Author Organization [employer] ([place], [place], [place], [place]) Address [address] [place] [address] Care Team Providers Care Group Fitness Department Head Name Role Phone Unavailable Primary Care Provider Unavailabl e Encounter Details Date Type Department Care Team (Late st Contact Info) Description 04/12/2020 Transcribed Document [facility] [place] [address] [place] [address] ProviderJulio MD [address] [place] [address] 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 Tobacco Use Types Packs/Day Years Used Date Smoking Tobacco: Never Assessed Comments Unknown Sex and Gender Information Value Date Recorded Sex Assigned at Female 03/12/2022 2:43 PM CDT Legal Sex Female 5:44 PM CDT Gender Identity Female 03/12/2022 2:43 PM CDT Sexual Orientation Not on file documented as of this encounter Miscellaneous Notes * Cerner Conversion Note - Historical ProviderMD - 04/12/2020 5:05 AM CDT Electronically signed by [facility] Conversion Direct Care Provider Cerner at 12/29/2022 4:12 PM CDT documented in this encounter Plan of Treatment Not on file documented as of this encounter Visit Diagnoses Not on filedocumented in this encounter
--- OUTSIDE RECORDS SUMMARY | 2025-06-07 16:20 | XMS_ITS | Encounter Summary ---
Author Organization [employer] ([place], [place], [place], [place]) Address [address] [place] [address] Care Team Providers Care Visiting Teacher Name Role Phone Unavailable Primary Care Provider Unavailabl e Encounter Details Date Type Department Care Team (Late st Contact Info) Description 05/18/2020 Transcribed Document [facility] [place] Family Medicine [address] [place] [address] ProviderJulio MD [address] [place] [address] 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 Tobacco Use Types Packs/Day Years [...] Conversion Note - Julio Van MD - 05/18/2020 9:33 PM CDT ED Assessment Entered On: 05/18/2020 21:40 EDT Performed On: 05/18/2020 21:36 EDT by Candelaria Albert RN ED Quick Look Assessment Level of Consciousness : Alert, Awake Affect/Behavior : Appropriate, Calm, Cooperative Orientation : Oriented x 4 Candelaria Albert RN - 05/18/2020 21:36 EDT ED General-Functional Assess Information Obtained From : Patient Preferred Communication Mode : Verbal Communication Barrier : None Primary Language : Lebanese Any Spiritual/Cultural Needs or Requests : No Currently in Unsafe Situation : No Candelaria Albert RN - 05/18/2020 21:36 EDT Social Habits Smoking Status : Never (less than 100 in lifetime; none in last 30 days) Smokeless Tobacco Status : Never Desires Tobacco Cessation Calc : 0 Candelaria Albert RN - 05/18/2020 21:36 EDT 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 (As Of: 05/18/2020 21:40:27 EDT) Tobacco: Use in Last 12 Months: [...]
--- OUTSIDE RECORDS SUMMARY | 2025-06-07 16:20 | XMS_ITS | Encounter Summary ---
Author Organization [employer] ([place], [place], [place], [place]) Address [address] [place] [address] Care Team Providers Care Cat Hooker Name Role Phone Unavailable Primary Care Provider Unavailabl e Encounter Details Date Type Department Care Team (Late st Contact Info) Description 05/18/2020 Transcribed Document [facility] [place] [address] [place] [address] ProviderJulio MD [address] [place] [address] 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 Tobacco Use Types [...] Note - Julio Van MD - 05/18/2020 10:56 PM CDT [facility] [address] [place] [address] OREN KIM :1985 Visit Time:05/18/2020 Your Visit Summary Your Care Team Primary Provider: LESLIE WHITMORE Secondary Provider: Your Diagnosis Abdominal pain, Right flank pain Flank pain UTI (urinary tract infection) Medical [...] Where: [address] [address] [place] [id number]- [facility] (1) Allergies most abx Keflex Toradol amoxicillin-clavulanate (SOA, SOA) cefaclor ciprofloxacin (HIVES, HIVES) codeine doxycycline (RASH/SOA, RASH/SOA) gatifloxacin midazolam nitrofurantoin (RASH/SOA, RASH/SOA) ondansetron sulfa drugs Immunizations This Visit No Immunizations Found Medications What How Much When Instructions Next Dose cefdinir (cefdinir 300 mg oral capsule) 1 Capsule(s) Oral Every 12 hours Duration: 7 Day(s) Pickup at [facility]/pharmacy #[id number] fluconazole (Diflucan 150 mg oral tablet) 1 Tablet(s) Oral Every Day Duration: 1 Day(s) Pickup at [facility]/pharmacy #[id number] nystatin topical (nystatin 100,000 units/ g topical powder) 1 Application(s) Topical Two Times A Day Pickup at [facility]/pharmacy #3995 promethazine (promethazine 25 mg oral tablet) 1 Tablet(s) Oral Every 4 Hours as needed for as needed for nausea/vomiting Duration: 5 Day(s) Pickup at [facility]/pharmacy #3995 promethazine (promethazine 25 mg oral tablet) 1 Tablet(s) Oral Every 6 Hours as needed for as needed for nausea/vomiting albuterol (albuterol HFA 90 mcg/ inh inhalation aerosol) Inhalation Four Times A Day busPIRone (BuSpar) Oral Two Times A Day gabapentin Oral hydrOXYzine (Vistaril) Oral Four Times A Day OLANZapine (ZyPREXA) Every Day paroxetine (Paxil 40 mg oral tablet) 1 Tablet(s) Oral Every Day Pharmacy Information [facility]/pharmacy #[id number]: [address] [place], [place] [id number] [phone] The home medications listed are only as [...] This Visit (last charted value for your 05/18/2020 visit) Hematology 05/18/2020 9:38 PM WBC: 13.5 K/uL -- Normal range between ( 4.0 and 10.0 ) RBC: 4.98 Million/uL -- Normal range between ( 3.93 and 5.22 ) Hct: 40.9 % -- Normal range between ( 34.1 and 44.9 ) Hgb: 13.4 Gram/dL -- Normal range between ( 11.2 and 15.7 ) Platelet Count: 207 K/uL -- Normal range between ( 163 and 369 ) MCH: 26.9 pg -- Normal range between ( 25.6 and 32.2 ) MCHC: 32.8 Gram/dL -- Normal range between ( 32.2 and 36.5 ) MCV: 82.1 fL -- Normal range between ( 79.0 and 94.8 ) Slide Review: No Eos %: 1.7 % -- Normal range between ( 0.0 and 7.0 ) [place] #: 0.82 K/uL -- Normal range between ( 0.16 and 1.00 ) Eos #: .23 K/uL -- Normal range between ( .00 and .80 ) [place] %: 6.1 % -- Normal range between ( 3.0 and 9.0 ) Baso %: 0.1 % -- Normal range between ( 0.0 and 2.0 ) Baso #: 0.02 K/uL -- Normal range between ( 0.00 and 0.20 ) RDW: 15.2 % -- Normal range between ( 11.6 and 14.4 ) Neut %: 73.9 % -- Normal range between ( 34.0 and 71.0 ) Neut #: 9.98 K/uL -- Normal range between ( 1.56 and 6.13 ) Lymph %: 17.8 % -- Normal range between ( 19.0 and 53.0 ) Lymph #: 2.41 K/uL -- Normal range between ( 1.18 and 3.74 ) MPV: 10.7 fL -- Normal range between ( 9.4 and 12.4 ) IG#: 0 x10(3)/uL IG%: 0 % -- Normal range between ( 0 and 1 ) Urinalysis 05/18/2020 9:38 PM Ur RBC: 2-5 /HPF Urine Nitrite: Negative Urine Leukocyte Esterase: Trace Urine Appearance: Slightly Cloudy Urine Glucose Dipstick: Negative Urine Blood Dipstick: Trace-lysed Urine Urobilinogen Dipstick: 0.2 EU/dL Urine Protein Dipstick: Negative Ur Amorph: Trace Ur Bacteria: 1+ Ur Squamous Epithelial Cells: 10-20 /HPF Urine Color: Yellow Ur Transitional Epi Cells: 0-2 Ur WBC: 20-50 /HPF Urine Ketones Dipstick: Negative Ur Mucous: Trace Urine pH Dipstick: 6.0 -- Normal range between ( 6.0 and 8.0 ) Urine Bilirubin Dipstick: Negative Urine Specific [place]: >=1.030 -- Normal range between ( 1.005 and 1.030 ) Urine Type.: U Cinema One General Chemistry 05/18/2020 9:38 PM Creatinine Level: na mg/dL -- Normal range between ( 0.55 and 1.02 ) Sodium Level: 140 mmol/L -- Normal range between ( 136 and 145 ) Potassium Level: 4.6 mmol/L -- Normal range between ( 3.5 and 5.1 ) Chloride Level: 105 mmol/L -- Normal range between ( 98 and 107 ) Carbon Dioxide Level: 22 mmol/L -- Normal range between ( 21 and 32 ) Anion Gap: 18 -- Normal range between ( 9 and 20 ) Bilirubin Total: 0.2 mg/dL -- Normal range between ( 0.2 and 1.0 ) A/G Ratio: 0.8 -- Normal range between ( 1.1 and 2.5 ) ALT: 29 Units/Liter -- Normal range between ( 14 and 59 ) AST: 21 Units/Liter -- Normal range between ( 15 and 37 ) Globulin: 3.7 Gram/dL -- Normal range between ( 1.5 and 4.5 ) Alk Phos: 86 Units/Liter -- Normal range between ( 46 and 116 ) Bun/Creatinine: na Calcium Level: 9.1 mg/dL -- Normal range between ( 8.6 and 10.1 ) eGFR : 889 mL/min/1.73m2 eGFR NonAfrican: 733 mL/min/1.73m2 Glucose Level: 119 mg/dL -- Normal range between ( 74 and 106 ) Blood Urea Nitrogen: 16 mg/dL -- Normal range between ( 7 and 18 ) Protein Total: 6.7 Gram/dL -- Normal range between ( 6.4 and 8.2 ) Albumin Level: 3.0 Gram/dL -- Normal range between ( 3.4 and 5.0 ) Lipase Level: 398 Units/Liter -- Normal range between ( 73 and 393 ) Education Materials Urinary Tract Infection, Adult [...] this condition includes: ??? Antibiotic medicine. ??? Xdaq-drz-pbfbhhv medicines to treat discomfort. ??? Drinking enough [...] these instructions at home: Medicines ??? Take ciql-qtx-siwikex and prescription medicines only as told by [...] 06/09/2006 Document Revised: 08/17/2019 Document Reviewed: 03/09/2019 [employer] Patient Education ?? 2020 [employer]. Abdominal Pain, Adult Abdominal pain can be caused by many things. Often, abdominal pain is not serious and it gets better with no treatment or by being treated at home. However, sometimes abdominal pain is serious. Your health care provider will do a medical history and a physical exam to try to determine the cause of your abdominal pain. Follow these instructions at home: ??? Take urrr-rmq-plyqxdl and prescription medicines only as told by your health care provider. Do not take a laxative unless told by your health care provider. ??? Drink enough fluid to keep your urine clear or pale yellow. ??? Watch your condition for any changes. ??? Keep all follow-up visits as told by your health care provider. This is important. Contact a health care provider if: ??? Your abdominal pain changes or gets worse. ??? You are not hungry or you lose weight without trying. ??? You are constipated or have diarrhea for more than 2???3 days. ??? You have pain when you urinate or have a bowel movement. ??? Your abdominal pain wakes you up at night. ??? Your pain gets worse with meals, after eating, or with certain foods. ??? You are throwing up and cannot keep anything down. ??? You have a fever. Get help right away if: ??? Your pain does not go away as soon as your health care provider told you to expect. ??? You cannot stop throwing up. ??? Your pain is only in areas of the abdomen, such as the right side or the left lower portion of the abdomen. ??? You have bloody or black stools, or stools that look like tar. ??? You have severe pain, cramping, or bloating in your abdomen. ??? You have signs of dehydration, such as: ? Dark urine, very little urine, or no urine. ? Cracked lips. ? Dry mouth. ? Sunken eyes. ? Sleepiness. ? Weakness. This information is not intended to replace advice given to you by your health care provider. Make sure you discuss any questions you have with your health care provider. Document Released: 06/09/2006 Document Revised: 03/19/2017 Document Reviewed: 02/10/2017 [employer] Patient Education ?? 2020 [employer]. Emergency Awareness and Preventative Care STROKE is [...] Assistance with quitting is available by contacting 0-379-QEIJHealthUnlockedNOW. This is a free resource providing counseling, [...] was given the opportunity to ask questions. Patient/Food Handler Name: Patient/Food Handler Signature: Relationship to Patient: Clinician/Hospital Food Handler Signature: Please Provide a Telephone Number Where You Can Be Reached: Is it Permissible To Leave a Message? Date: Electronically signed by Eron, [facility] Conversion Continuous Improvement Intern Vijay at 12/29/2022 4:14 PM CDT documented in this encounter Plan of Treatment Not on file documented as of this encounter Visit Diagnoses Not on filedocumented in this encounter
--- OUTSIDE RECORDS SUMMARY | 2025-06-07 16:20 | XMS_ITS | Encounter Summary ---
Author Organization [employer] ([place], [place], [place], [place]) Address [address] [place] [address] Care Team Providers Care Furnace Checker Name Role Phone Unavailable Primary Care Provider Unavailabl e Encounter Details Date Type Department Care Team (Late st Contact Info) Description 04/12/2020 Transcribed Document [facility] [place] Medicine [address] [place] [address] ProviderJulio MD [address] [place] [address] 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 Tobacco Use Types Packs/Day Years [...] Julio ProviderMD - 04/12/2020 2:57 AM CDT [place] Suicide Severity Rating Scale (C-SSRS) Entered On: 04/12/2020 3:04 EDT Performed On: 04/12/2020 2:59 EDT by Sharri Espinoza RN [place] Suicide Severity Rating Scale (C-SSRS) CSSRS Past Month Wish to be : No CSSRS Past Month Suicidal Thoughts : No CSSRS Lifetime Suicide Behavior : No Suicide Severity Rating Score : 0 Suicide Severity Rating : No Additional Care Required at this time Sharri Espinoza RN - 04/12/2020 2:59 EDT documented in this encounter Plan of Treatment Not on file documented as of this encounter Visit Diagnoses Not on filedocumented in this encounter
--- OUTSIDE RECORDS SUMMARY | 2025-06-07 16:20 | XMS_ITS | Encounter Summary ---
Author Organization [employer] ([place], [place], [place], [place]) Address [address] [place] [address] Care Team Providers Care Test Design Engineer Name Role Phone Unavailable Primary Care Provider Unavailabl e Encounter Details Date Type Department Care Team (Late st Contact Info) Description 01/28/2019 Transcribed Document [facility] [place] [address] [place] [address] ProviderJulio MD [address] [place] [address] 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 Tobacco Use Types Packs/Day Years [...] Note - Julio Van MD - 01/28/2019 12:59 AM CDT ED Discharge Entered On: 01/28/2019 1:02 EDT Performed On: 01/28/2019 0:59 EDT by Cydney Dunn RN Discharge Process Patient Disposition : Discharge Personal Belongings With Patient : Yes Patient Education Completed : Yes Teaching Evaluation : Verbalizes understanding IV Discontinued : Not applicable Nursing Documentation Completed : Yes Cydney Dunn RN - 01/28/2019 0:59 EDT ED Discharge Discharge To : Home with ambulatory/outpatient follow-up Mode Of Departure : Private vehicle Accompanied By : Unaccompanied Discharge Instructions Reviewed With, Opportunity For Questions Given : Patient Prescriptions Given to Patient : Yes Number of Prescriptions Given : 2 Cydney Dunn RN - 01/28/2019 0:59 EDT Electronically signed by Rachel Littlejohn Conversion Diffusion Furnace Operator Cerner at 12/29/2022 4:02 PM CDT documented in this encounter Plan of Treatment Not on file documented as of this encounter Visit Diagnoses Not on filedocumented in this encounter
--- OUTSIDE RECORDS SUMMARY | 2025-06-07 16:20 | XMS_ITS | Encounter Summary ---
Author Organization [employer] ([place], [place], [place], [place]) Address [address] [place] [address] Care Team Providers Care Chlorinator Name Role Phone Unavailable Primary Care Provider Unavailabl e Encounter Details Date Type Department Care Team (Late st Contact Info) Description 04/12/2020 Transcribed Document [facility] Family Medicine [address] [place] [address] ProviderJulio MD [address] [place] [address] 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 Tobacco Use Types Packs/Day Years [...] Note - Julio Van MD - 04/12/2020 3:09 AM CDT Patient: OREN KIM Age: 34 years Sex: Female : 1985 Associated Diagnoses: Acute UTI Author: CARLITOS BLOUNT MD-EMR Basic Information Additional information: Chief Complaint from Nursing Triage Note : Chief Complaint 04/12/2020 2:59 EDT Chief Complaint c/o left flank pain. Hx of kidney stones. . History of Present Illness The patient presents with three-day history of left flank pain. It is severe in nature and does radiate into the left lower quadrant at times. She states it actually began just prior to that on the right flank but that since has resolved. She admits to some nausea no vomiting. No documented fever or chills. No true dysuria. No anurag hematuria. She has a history of many kidney stones in the past. Her last stone requiring intervention was approximately 2 months ago. She is followed by the [facility] in [facility]. No treatment prior to arrival. The pain is sharp in nature. Review of Systems Constitutional symptoms: Negative except [...] were documented.. Medications: (Selected) Inpatient Medications Ordered Dilaudid: 1 mg, IntraMuscular, 1-Time Phenergan: 25 mg, IntraMuscular, 1-Time Documented Medications Documented BuSpar: Oral, BID, 0 Refill(s) Paxil 40 mg oral tablet: 1 Tab, Oral, Daily, 0 Refill(s) Vistaril: Oral, QID, 0 Refill(s) ZyPREXA: Daily, 0 Refill(s) albuterol HFA 90 mcg/inh inhalation aerosol: Puff, Inhalation, QID, 0 Refill(s) gabapentin: Oral, 0 Refill(s). Past Medical/ Family/ 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 Surgical history: Lithotripsy ([id number]).. Family history: No family history items have [...] Physical Examination Vital Signs Vital Signs/Vital Measures 04/12/2020 2:59 EDT Systolic Blood Pressure 183 mmHg HI Diastolic Blood Pressure 109 mmHg HI Temperature Source Oral Temperature Mode Fahrenheit Temperature, Fahrenheit 98.1 Deg F Clinical Temperature, C 36.7 Deg C Peripheral Pulse Rate 90 bpm Respiratory Rate 18 Breaths/Min Oxygen Saturation 97 % Oxygen Therapy Mode Room air . Measurements 04/12/2020 2:59 EDT Height Source Estimated Height Entry Format [place] Height/Length, THAI (ft) 5 ft Height/Length THAI 2 Inch CLINICALHEIGHT 157.48 cm [place] Body Weight 49.73 kg Weight Source, ED Critical estimated dosing weight Weight Entry Format [place] Weight Korean lb 240 lb CLINICALWEIGHT 109.09 kg Body Surface Area (BSA) 2.07 m2 Body Mass Index 44 kg/m2 >HHI . Oxygen Saturation 04/12/2020 2:59 EDT Oxygen Saturation 97 % . General: Alert, mild distress. Skin: Warm, dry, intact. Head: Normocephalic, atraumatic. Neck: Supple. Eye: Pupils are equal, round and reactive to light, extraocular movements are intact. Ears, nose, mouth and throat: Oral mucosa moist. Cardiovascular: Regular rate and rhythm, No murmur, No edema. Respiratory: Lungs are clear to auscultation, respirations are non-labored, breath sounds are equal, Symmetrical chest wall expansion. Gastrointestinal: Soft, Non distended, Normal bowel sounds, Minimal llq tenderness to deep palpation. No guarding or rebound.. Back: Mild left CVAT noted.. Musculoskeletal: Normal ROM, normal strength. Neurological: Alert and oriented to person, place, time, and situation, No focal neurological deficit observed, normal sensory observed, normal motor observed, normal speech observed, normal coordination observed. Lymphatics: No lymphadenopathy. Psychiatric: Cooperative. Medical Decision Making Documents reviewed: Emergency department nurses' notes. test: UCG-negative. Results review: Lab results : Lab Results 04/12/2020 3:14 EDT Specimen Type, Urine POC Urine Action Taken, Urine Testing Provider notified 04/12/2020 3:06 EDT Urine Type U CleanCatch Urine Color Yellow Urine Appearance Cloudy Urine Specific [place] >=1.030 Urine pH Dipstick 6.5 Urine Leukocyte Esterase Small Urine Nitrite Negative Urine Protein Dipstick Negative Urine Glucose Dipstick Negative Urine Ketones Dipstick Negative Urine Urobilinogen Dipstick 0.2 EU/dL Urine Bilirubin Dipstick Negative Urine Blood Dipstick Trace - Intact Ur RBC 2-5 /HPF Ur WBC 20-50 /HPF Ur WBC Clumps Present Ur Bacteria 2+ Ur Mucous Trace Ur Amorph Trace Ur Epithelial Cells 2-5 /HPF Ur Renal Epithelial Cells 0-2 /HPF Ur Transitional Epi Cells 0-2 HCG Urine Qualitative Negative . Radiology results: NAME: KIMOREN / SEX: 1985 / Female MRN / ACC#: [id number] / [id number] ORDERING PHYSICIAN: Ordering Provider, Update EXAM REQUESTED: [id number]--TM ABDOMEN & PELVIS W/O CONTRAST FACILITY: [facility] DATE: 04/12/2020 RADIOLOGIST NAME: MD Levy Wayne CLINICAL HISTORY: . lt flank pain, hx stones FINDINGS: Bilateral nonobstructive renal stones. Slight fullness of the left renal collecting system and proximal ureter. No ureteral stone is identified. Consider recently passed stone or urinary tract infection. Normal appendix.. Notes: Olu requests #[id number] reviewed. Last entry is dated 09/11/2019. Reexamination/ Reevaluation Time: 04/12/2020 05:03:00 . Assessment: exam improved, Despite multiple list of allergies, patient has tolerated Levaquin in the past. Most of her urine cultures have been contaminated. She does have a history of Escherichia coli which has been pansensitive. We'll go ahead with a seven-day course of Levaquin 750 as well as appropriate pain control and some Phenergan.. Impression and Plan Diagnosis Acute UTI - Discharge, Emergency medicine, Medical Plan Condition: Improved, Stable. Prescriptions: Prescription Order Entry Clerk Pharmacy: promethazine 25 mg oral tablet (Prescribe): 1 Tab, Oral, Q6H, PRN: as needed for nausea/vomiting, 15 Tab, 0 Refill(s) [place] 7.5 mg-325 mg oral tablet (Prescribe): 1 Tab, Oral, Q6H, PRN: as needed for pain, 12 Tab, 0 Refill(s) Levaquin 750 mg oral tablet (Prescribe): 1 Tab, Oral, [id number], for 7 Day(s), 7 Tab, 0 Refill(s). Patient was given the following educational materials: Urinary Tract Infection, Adult. Follow up with: NICOLE ERNST Within 2 to 3 days. Counseled: Patient. Orders: Launch Orders Pharmacy: [facility] 5 mg-325 mg oral tablet (Order): 1 Tab, Oral, 1-Time Phenergan (Order): 25 mg, Oral, 1-Time Levaquin (Order): 750 mg, Oral, 1-Time Admit/Transfer/Discharge: Discharge (Order): Start: 04/12/2020 5:06 EDT, Discharge to: Home. documented in this encounter Plan of Treatment Not on file documented as of this encounter Visit Diagnoses Not on filedocumented in this encounter
--- OUTSIDE RECORDS SUMMARY | 2025-06-07 16:20 | XMS_ITS | Encounter Summary ---
Author Organization [employer] ([place], [place], [place], [place]) Address [address] [place] [address] Care Team Providers Care Merchant Mill Utility Worker Name Role Phone Unavailable Primary Care Provider Unavailabl e Encounter Details Date Type Department Care Team (Late st Contact Info) Description 01/28/2019 Transcribed Document [facility] [place] [address] [place] [address] ProviderJulio MD [address] [place] [address] 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 Tobacco Use Types Packs/Day Years [...] Conversion Note - Historical ProviderMD - 01/28/2019 12:06 AM CDT Electronically signed by Eron [facility] Conversion Director Of Strategic Sales Cerjane at 12/29/2022 4:07 PM CDT documented in this encounter Plan of Treatment Not on file documented as of this encounter Visit Diagnoses Not on filedocumented in this encounter
--- OUTSIDE RECORDS SUMMARY | 2025-06-07 16:20 | XMS_ITS | Encounter Summary ---
Author Organization [employer] ([place], [place], [place], [place]) Address [address] [place] [address] Care Team Providers Care Fountain Operator Name Role Phone Unavailable Primary Care Provider Unavailabl e Encounter Details Date Type Department Care Team (Late st Contact Info) Description 04/12/2020 Transcribed Document [facility] [place] [facility] [place] [address] ProviderJulio MD [address] [place] [address] 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 Tobacco Use Types Packs/Day Years [...] ProviderMD - 04/12/2020 2:57 AM CDT ED Triage Entered On: 04/12/2020 3:02 EDT Performed On: 04/12/2020 2:59 EDT by Sharri Espinoza, H[employer]CHO[employer] TEACHER Triage Across the Room Chief Complaint : c/o left flank pain. Hx of kidney stones. Triage Date/Time : 04/12/2020 2:59 EDT Sharri Espinoza RN - 04/12/2020 2:59 EDT DCP GENERIC CODE Tracking Acuity : 3 - Urgent Tracking Group : [facility] ED [place]arri Boland RN - 04/12/2020 2:59 EDT Mode of Arrival : Ambulatory Transported to ED by : Ambulance/BLS EMS Service : [facility] To Room Via : Stretcher Accompanied By : electrolytic de scaler ED Vital Signs : Document Height & Weight : Document ED Allergies : Document ED Infection Control : No ED Reason for Visit : Document Tetanus Immunization : Less than 5 years Sharri Espinoza RN - 04/12/2020 2:59 EDT Infectious Disease History Has the patient ever been tested for COVID-19? : No, Patient stated Does patient have symptoms of COVID-19? : No COVID19 Screening : No Experiencing Infectious Disease Symptoms : No symptoms Physical contact outside [place] in the last 30 days : No Infectious Disease History : Chicken pox/Shingles, Influenza Tuberculosis Symptoms : None Sharri Espinoza RN - 04/12/2020 2:59 EDT Vital Signs ED Temperature Source : Oral Temperature Mode : Fahrenheit Temperature, Fahrenheit : 98.1 Deg F ED Pain : Yes Clinical Temperature, C : 36.7 Deg C Oxygen Therapy Mode : Room air Peripheral Pulse Rate : 90 bpm Respiratory Rate : 18 Breaths/Min Systolic Blood Pressure : 183 mmHg (HI) Diastolic Blood Pressure : 109 mmHg (HI) Oxygen Saturation : 97 % Sharri Espinoza RN - 04/12/2020 2:59 EDT Allergy (As Of: 04/12/2020 03:02:58 EDT) Allergies (Active) most abx Estimated Onset Date: Unspecified ; Created By: MANPREET SALAS; Reaction Status: Active ; Category: Drug ; Substance: most abx ; Type: Allergy ; Updated By: MANPREET SALAS; Reviewed Date: 04/12/2020 3:01 EDT amoxicillin-clavulanate Estimated Onset Date: Unspecified ; Reactions: SOA, SOA ; Created By: MANPREET SALAS; Reaction Status: Active ; Category: Drug ; Substance: amoxicillin-clavulanate ; Type: Allergy ; Updated By: MANPREET SALAS; Reviewed Date: 04/12/2020 3:01 EDT cefaclor Estimated Onset Date: Unspecified ; Created By: MANPREET SALAS; Reaction Status: Active ; Substance: cefaclor ; Updated By: MANPREET SALAS; Reviewed Date: 04/12/2020 3:01 EDT ciprofloxacin Estimated Onset Date: Unspecified ; Reactions: HIVES, HIVES ; Created By: MANPREET SALAS; Reaction Status: Active ; Substance: ciprofloxacin ; Updated By: MANPREET SALAS; Reviewed Date: 04/12/2020 3:01 EDT codeine Estimated Onset Date: Unspecified ; Created By: LORE JARQUIN RN; Reaction Status: Active ; Category: Drug ; Substance: codeine ; Type: Allergy ; Updated By: LORE JARQUIN RN; Reviewed Date: 04/12/2020 3:01 EDT doxycycline Estimated Onset Date: Unspecified ; Reactions: RASH/SOA, RASH/SOA ; Created By: MANPREET SALAS; Reaction Status: Active ; Category: Drug ; Substance: doxycycline ; Type: Allergy ; Updated By: MANPREET SALAS; Reviewed Date: 04/12/2020 3:01 EDT gatifloxacin Estimated Onset Date: Unspecified ; Created By: MANPREET SALAS; Reaction Status: Active ; Substance: gatifloxacin ; Updated By: MANPREET SALAS; Reviewed Date: 04/12/2020 3:01 EDT Keflex Estimated Onset Date: Unspecified ; Created By: Cathi Green RN; Reaction Status: Active ; Category: Drug ; Substance: Keflex ; Type: Allergy ; Updated By: Cathi Green RN; Reviewed Date: 04/12/2020 3:01 EDT midazolam Estimated Onset Date: Unspecified ; Created By: MANPREET SALAS; Reaction Status: Active ; Category: Drug ; Substance: midazolam ; Type: Allergy ; Updated By: MANPREET SALAS; Reviewed Date: 04/12/2020 3:01 EDT nitrofurantoin Estimated Onset Date: Unspecified ; Reactions: RASH/SOA, RASH/SOA ; Created By: MANPREET SALAS; Reaction Status: Active ; Category: Drug ; Substance: nitrofurantoin ; Type: Allergy ; Updated By: MANPREET SALAS; Reviewed Date: 04/12/2020 3:01 EDT ondansetron Estimated Onset Date: Unspecified ; Created By: MANPREET SALAS; Reaction Status: Active ; Category: Drug ; Substance: ondansetron ; Type: Allergy ; Updated By: CONTRIBUTOR_SYSTEMMANPREET; Reviewed Date: 04/12/2020 3:01 EDT sulfa drugs Estimated Onset Date: Unspecified ; Created By: MANPREET SALAS; Reaction Status: Active ; Substance: sulfa drugs ; Updated By: CONTRIBUTOR_MANPREET CHI; Reviewed Date: 04/12/2020 3:01 EDT Toradol Estimated Onset Date: Unspecified ; Created By: Cathi Green RN; Reaction Status: Active ; Category: Drug ; Substance: Toradol ; Type: Allergy ; Updated By: Cathi Green RN; Reviewed Date: 04/12/2020 3:01 EDT Diagnosis Control ED (As Of: 04/12/2020 03:02:58 EDT) Problems(Active) Endometriosis (SNOMED CT :970225633 ) Name of Problem: Endometriosis ; Recorder: Farzaneh Rico RN; Confirmation: Confirmed ; Classification: Medical ; Code: [id number] ; Contributor System: [employer] ; Last Updated: 11/16/2019 4:18 EST ; Life Cycle Date: 11/16/2019 ; Life Cycle Status: Active ; Vocabulary: SNOMED CT Kidney stones (SNOMED CT :489449667 ) Name of Problem: Kidney stones ; Recorder: MANFRED CAI PA; Confirmation: Confirmed ; Classification: Medical ; Code: [id number] ; Contributor System: [employer] ; Last Updated: 10/24/2015 13:26 EST ; Life Cycle Date: 10/24/2015 ; Life Cycle Status: Active ; Responsible Provider: MANFRED CAI PA; Vocabulary: SNOMED CT PTSD (post-traumatic stress disorder) (SNOMED CT :52178877 ) Name of Problem: PTSD (post-traumatic stress disorder) ; Recorder: MANFRED CAI PA; Confirmation: Confirmed ; Classification: Medical ; Code: [id number] ; Contributor System: [employer] ; Last Updated: 10/24/2015 13:26 EST ; Life Cycle Date: 10/24/2015 ; Life Cycle Status: Active ; Responsible Provider: MANFRED CAI PA; Vocabulary: SNOMED CT Diagnoses(Active) Flank pain Date: 04/12/2020 ; Diagnosis Type: Reason For Visit ; Confirmation: Complaint of ; Clinical Dx: Flank pain ; Classification: Medical ; Clinical Service: Non-Specified ; Code: PNED ; Probability: 0 ; Diagnosis Code: [id number] ED Height and Weight Height Source : Estimated Height Entry Format : [place] Height, Feet : 5 ft(Converted to: 152 cm, 60 Inch) Height, Inches : 2 Inch(Converted to: 0 ft 2 Inch, 5.08 cm) Clinical Height : 157.48 cm Weight Source, ED : Critical estimated dosing weight Weight Entry Format : [place] Weight, Pounds : 240 lb Clinical Dosing Weight : 109.09 kg Body Surface Area (BSA) : 2.07 m2 Body Mass Index : 44 kg/m2 (>HHI) [place] Body Weight (IBW) : 49.73 kg Sharri Espinoza RN - 04/12/2020 2:59 EDT Pain Assessment Pain Assessment : Initial assessment Pain Scale Used : 0-10 Scale Location : Flank, left Sharri Espinoza RN - 04/12/2020 2:59 EDT Pain Scale Intensity : 8 Sharri Espinoza RN - 04/12/2020 2:59 EDT Image 4 - Images currently included in the form version of this document have not been included in the text rendition version of the form. documented in this encounter Plan of Treatment Not on file documented as of this encounter Visit Diagnoses Not on filedocumented in this encounter
--- OUTSIDE RECORDS SUMMARY | 2025-06-07 16:20 | XMS_ITS | Encounter Summary ---
Author Organization [employer] ([place], [place], [place], [place]) Address [address] [place] [address] Care Team Providers Care Telemetry Rn Name Role Phone Unavailable Primary Care Provider Unavailabl e Encounter Details Date Type Department Care Team (Late st Contact Info) Description 01/30/2019 Transcribed Document [facility] [place] Medicine [facility] [place] [address] ProviderJulio MD [address], [place] [id number] 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 Tobacco Use Types Packs/Day Years [...] Conversion Note - Julio ProviderMD - 01/30/2019 2:48 PM CDT OREN KIM [address] [place] [id number] 01/27/2019 Your found to have a positive urine culture, sensitivity testing shows bacterial resistance to current antibiotic. Follow with your primary care doctor for review of culture results and changing of antibiotic. Return to the ER with worsening signs or symptoms or as needed. [facility] Emergency Department documented in this encounter Plan of Treatment Not on file documented as of this encounter Visit Diagnoses Not on filedocumented in this encounter
--- OUTSIDE RECORDS SUMMARY | 2025-06-07 16:21 | XMS_ITS | Encounter Summary ---
Author Organization [employer] ([place], [place], [place], [place]) Address [address] [place] [address] Care Team Providers Care Cab Worker Name Role Phone Unavailable Primary Care Provider Unavailabl e Encounter Details Date Type Department Care Team (Late st Contact Info) Description 08/01/2019 Transcribed Document [facility] [place] Family Medicine [address] [place] [address] ProviderJulio MD [address] [place], [place] [id number] 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 Tobacco Use Types Packs/Day Years [...] Conversion Note - Julio Van MD - 08/01/2019 4:44 AM COLLEGE PHYSICS INSTRUCTOR ED Triage Entered On: 08/01/2019 4:49 EST Performed On: 08/01/2019 4:45 EST by Farzaneh Rico RN ED Triage Across the Room Triage Date/Time : 08/01/2019 4:45 EST Chief Complaint : Pt came in by EMS with left flank pain for about an hour. Hx of kidney stones. Denies fever, n/v/d. Farzaneh Rico, EVE - 08/01/2019 4:45 EST DCP GENERIC CODE Tracking Acuity : 3 - Urgent Tracking Group : [facility] ED [place] Farzaneh Rico RN - 08/01/2019 4:45 EST Mode of Arrival : Stretcher Transported to ED by : Ambulance/BLS EMS Service : [facility] [place] To Room Via : Stretcher Accompanied By : Friend ED Vital Signs : Document Height & Weight : Document ED Allergies : Document ED Reason for Visit : Document Tetanus Immunization : Less than 5 years Farzaneh Rico RN - 08/01/2019 4:45 EST Infectious Disease History Infectious Disease History : Chicken pox/Shingles, Influenza Fever/Chills Last 48 Hours : No Travel To Regions with Travel Advisories : No Travel Outside [place] Within Last 30 Days : No Contact With Traveler to Advisory Region : No Tuberculosis Symptoms : None Farzaneh Rico RN - 08/01/2019 4:45 EST Vital Signs ED Temperature Source : Oral Temperature Mode : Fahrenheit Temperature, Fahrenheit : 98.1 Deg F ED Pain : Yes Clinical Temperature, C : 36.7 Deg C Oxygen Therapy Mode : Room air Peripheral Pulse Rate : 101 bpm (HI) Respiratory Rate : 18 Breaths/Min Blood Pressure Location : Arm, right upper Blood Pressure Source : Non-Invasive BP Device Systolic Blood Pressure : 179 mmHg (HI) Diastolic Blood Pressure : 102 mmHg (HI) Oxygen Saturation : 97 % Farzaneh Rico RN - 08/01/2019 4:45 EST Allergy (As Of: 08/01/2019 04:49:08 EST) Allergies (Active) most abx Estimated Onset Date: Unspecified ; Created By: MANPREET Magdaleno; Reaction Status: Active ; Category: Drug ; Substance: most abx ; Type: Allergy ; Updated By: MANPREET Magdaleno; Reviewed Date: 08/01/2019 4:48 EST amoxicillin-clavulanate Estimated Onset Date: Unspecified ; Reactions: SOA, SOA ; Created By: MANPREET Magdaleno; Reaction Status: Active ; Category: Drug ; Substance: amoxicillin-clavulanate ; Type: Allergy ; Updated By: MANPREET Magdaleno; Reviewed Date: 08/01/2019 4:48 EST cefaclor Estimated Onset Date: Unspecified ; Created By: MANPREET Magdaleno; Reaction Status: Active ; Substance: cefaclor ; Updated By: MANPREET Magdaleno; Reviewed Date: 08/01/2019 4:48 EST ciprofloxacin Estimated Onset Date: Unspecified ; Reactions: HIVES, HIVES ; Created By: MANPREET Magdaleno; Reaction Status: Active ; Substance: ciprofloxacin ; Updated By: MANPREET Magdaleno; Reviewed Date: 08/01/2019 4:48 EST codeine Estimated Onset Date: Unspecified ; Created By: LORE JARQUIN RN; Reaction Status: Active ; Category: Drug ; Substance: codeine ; Type: Allergy ; Updated By: LORE JARQUIN RN; Reviewed Date: 08/01/2019 4:48 EST doxycycline Estimated Onset Date: Unspecified ; Reactions: RASH/SOA, RASH/SOA ; Created By: MANPREET Magdaleno; Reaction Status: Active ; Category: Drug ; Substance: doxycycline ; Type: Allergy ; Updated By: MANPREET Magdaleno; Reviewed Date: 08/01/2019 4:48 EST gatifloxacin Estimated Onset Date: Unspecified ; Created By: MANPREET Magdaleno; Reaction Status: Active ; Substance: gatifloxacin ; Updated By: MANPREET Magdaleno; Reviewed Date: 08/01/2019 4:48 EST Keflex Estimated Onset Date: Unspecified ; Created By: Cathi Green RN; Reaction Status: Active ; Category: Drug ; Substance: Keflex ; Type: Allergy ; Updated By: Cathi Green RN; Reviewed Date: 08/01/2019 4:48 EST midazolam Estimated Onset Date: Unspecified ; Created By: MANPREET Magdaleno; Reaction Status: Active ; Category: Drug ; Substance: midazolam ; Type: Allergy ; Updated By: MANPREET Magdaleno; Reviewed Date: 08/01/2019 4:48 EST nitrofurantoin Estimated Onset Date: Unspecified ; Reactions: RASH/SOA, RASH/SOA ; Created By: MANPREET Magdaleno; Reaction Status: Active ; Category: Drug ; Substance: nitrofurantoin ; Type: Allergy ; Updated By: MANPREET Magdaleno; Reviewed Date: 08/01/2019 4:48 EST ondansetron Estimated Onset Date: Unspecified ; Created By: MANPREET Magdaleno; Reaction Status: Active ; Category: Drug ; Substance: ondansetron ; Type: Allergy ; Updated By: Contributor_systemMANPREET; Reviewed Date: 08/01/2019 4:48 EST sulfa drugs Estimated Onset Date: Unspecified ; Created By: Contributor_systemMANPREET; Reaction Status: Active ; Substance: sulfa drugs ; Updated By: Contributor_systemMANPREET; Reviewed Date: 08/01/2019 4:48 EST Toradol Estimated Onset Date: Unspecified ; Created By: Cathi Green RN; Reaction Status: Active ; Category: Drug ; Substance: Toradol ; Type: Allergy ; Updated By: Cathi Green RN; Reviewed Date: 08/01/2019 4:48 EST Diagnosis Control ED (As Of: 08/01/2019 04:49:08 EST) Problems(Active) Kidney stones (SNOMED CT :404905413 ) Name of Problem: Kidney stones ; Recorder: MANFRED CAI PA; Confirmation: Confirmed ; Classification: Medical ; Code: [id number] ; Contributor System: [employer] ; Last Updated: 10/24/2015 13:26 EST ; Life Cycle Date: 10/24/2015 ; Life Cycle Status: Active ; Responsible Provider: MANFRED CAI PA; Vocabulary: SNOMED CT PTSD (post-traumatic stress disorder) (SNOMED CT :93968911 ) Name of Problem: PTSD (post-traumatic stress disorder) ; Recorder: MANFRED CAI PA; Confirmation: Confirmed ; Classification: Medical ; Code: [id number] ; Contributor System: [employer] ; Last Updated: 10/24/2015 13:26 EST ; Life Cycle Date: 10/24/2015 ; Life Cycle Status: Active ; Responsible Provider: MANFRED CAI PA; Vocabulary: SNOMED CT Diagnoses(Active) Flank pain Date: 08/01/2019 ; Diagnosis Type: Reason For Visit ; Confirmation: Complaint of ; Clinical Dx: Flank pain ; Classification: Medical ; Clinical Service: Emergency medicine ; Code: PNED ; Probability: 0 ; Diagnosis Code: [id number] ED Height and Weight Height Source : Stated Height Entry Format : [place] Height, Feet : 5 ft(Converted to: 152 cm, 60 Inch) Height, Inches : 2 Inch(Converted to: 0 ft 2 Inch, 5.08 cm) Clinical Height : 157.48 cm Weight Source, ED : Critical estimated dosing weight Weight Entry Format : [place] Weight, Pounds : 220 lb Clinical Dosing Weight : 100 kg Body Surface Area (BSA) : 1.99 m2 Body Mass Index : 40.3 kg/m2 (>HHI) [place] Body Weight (IBW) : 49.73 kg Farzaneh Rico RN - 08/01/2019 4:45 EST Pain Assessment Pain Assessment : Initial assessment Pain Scale Used : 0-10 Scale Location : Flank, left Onset : Constant Farzaneh Rico RN - 08/01/2019 4:45 EST Pain Scale Intensity : 9 Farzaneh Rico RN - 08/01/2019 4:45 EST Image 4 - Images currently included in the form version of this document have not been included in the text rendition version of the form. ED Influenza/Pneumoccocal Vaccine Influenza Immunization, Current Season : No Pneumonia Immunization Received : No Previous Vaccines from Immunization Schedule : No qualifying data available. Farzaneh Rico RN - 08/01/2019 4:45 EST documented in this encounter Plan of Treatment Not on file documented as of this encounter Visit Diagnoses Not on filedocumented in this encounter
--- OUTSIDE RECORDS SUMMARY | 2025-06-07 16:21 | XMS_ITS | Encounter Summary ---
Author Organization [email or web address] ([place], [place], [place], [place]) Address [address] [place] [address] Care Team Providers Care Certified Registered Dental Assistant Name Role Phone Unavailable Primary Care Provider Unavailabl e Encounter Details Date Type Department Care Team (Late st Contact Info) Description 06/29/2019 Transcribed Document [facility] [place] [address] [place] [address] ProviderJulio MD [address] [place], [place] [address] 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 Tobacco Use Types Packs/Day Years [...] Note - Julio Van MD - 06/29/2019 10:43 PM CDT [facility] [address] [place] [address] OREN KIM :1985 Visit Time:06/29/2019 Your Visit Summary Your Care Team Primary Provider: CARLINE WATTS MD Secondary Provider: Your Diagnosis Back pain Flank pain Left flank pain Pyelonephritis, acute Urination painful Yeast dermatitis Medical Information You may obtain a copy [...] Follow Up with JUANITA THIBODEAUX When Within 2 to 3 days Comments your urologist Where: [facility] [place] [address] Business (1) Follow Up with Follow up with primary care provider When Within 2 to 3 days Follow Up with NICOLE ERNST When Within 2 to 3 days Where: [address] [place] [address] [facility] (1) Allergies most abx Keflex Toradol amoxicillin-clavulanate (SOA, SOA) cefaclor ciprofloxacin (HIVES, HIVES) codeine doxycycline (RASH/SOA, RASH/SOA) gatifloxacin midazolam nitrofurantoin (RASH/SOA, RASH/SOA) ondansetron sulfa drugs Immunizations This Visit No Immunizations Found Medications What How Much When Instructions Next Dose New fluconazole (fluconazole 200 mg oral tablet) 1 Tablet(s) Oral Every Day Duration: 14 Day(s) Printed Prescription New nitrofurantoin (Macrobid 100 mg oral capsule) 1 Capsule(s) Oral Two Times A Day Duration: 10 Day(s) Printed Prescription New oxyCODONE (oxyCODONE 5 mg oral tablet) 1 Tablet(s) Oral Every 6 Hours as needed for as needed for pain Printed Prescription New phenazopyridine (Pyridium 200 mg oral tablet) 1 Tablet(s) Oral Three Times A Day as needed for as needed for urinary discomfort Printed Prescription Changed promethazine (promethazine 25 mg oral tablet) 1 Tablet(s) Oral Every 6 Hours as needed for as needed for nausea/vomiting Changed promethazine (promethazine 25 mg oral tablet) 1 Tablet(s) Oral Every 6 Hours as needed for as needed for nausea/vomiting Printed Prescription The home medications [...] This Visit (last charted value for your 06/29/2019 visit) Urinalysis 06/29/2019 8:53 PM Ur RBC: TNTC /HPF Urine Nitrite: Negative Urine Leukocyte Esterase: Moderate Urine Appearance: Hazy Urine Glucose Dipstick: Negative Urine Blood Dipstick: Small Urine Type: U CleanCatch Urine Urobilinogen Dipstick: 0.2 EU/dL Urine Protein Dipstick: 30 Ur Bacteria: 1+ Ur Squamous Epithelial Cells: 20-50 /HPF Urine Color: Yellow Ur WBC: TNTC /HPF Urine Ketones Dipstick: Negative Ur Mucous: 2+ Ur Yeast: 1+ Urine pH Dipstick: 6.0 -- Normal range between ( 6.0 and 8.0 ) Urine Bilirubin Dipstick: Negative Urine Specific [place]: >=1.030 -- Normal range between ( 1.005 and 1.030 ) Endocrinology 06/29/2019 8:53 PM HCG Urine Qualitative: Negative Computed Tomography 06/29/2019 9:[address] Abdomen Pelvis WO: CT Abdomen Pelvis WO Education Materials Pyelonephritis, Adult Pyelonephritis is a kidney infection. The kidneys are the organs that filter a person's blood and move waste out of the bloodstream and into the urine. Urine passes from the kidneys, through the ureters, and into the bladder. There are two main types of pyelonephritis: ??? Infections that come on quickly without any warning (acute pyelonephritis). ??? Infections that last for a long period of time (chronic pyelonephritis). In most cases, the infection clears up with treatment and does not cause further problems. More severe infections or chronic infections can sometimes spread to the bloodstream or lead to other problems with the kidneys. What are the causes? This condition is usually caused by: ??? Bacteria traveling from the bladder to the kidney through infected urine. The urine in the bladder can become infected with bacteria from: ? Bladder infection (cystitis). ? Inflammation of the prostate gland (prostatitis). ? Sexual intercourse, in females. ??? Bacteria traveling from the bloodstream to the kidney. What increases the risk? This condition is more likely to develop in: ??? women. ??? Older people. ??? People who have diabetes. ??? People who have kidney stones or bladder stones. ??? People who have other abnormalities of the kidney or ureter. ??? People who have a catheter placed in the bladder. ??? People who have cancer. ??? People who are sexually active. ??? Women who use spermicides. ??? People who have had a prior urinary tract infection. What are the signs or symptoms? Symptoms of this condition include: ??? Frequent urination. ??? Strong or persistent urge to urinate. ??? Burning or stinging when urinating. ??? Abdominal pain. ??? Back pain. ??? Pain in the side or flank area. ??? Fever. ??? Chills. ??? Blood in the urine, or dark urine. ??? Nausea. ??? Vomiting. How is this diagnosed? This condition may be diagnosed based on: ??? Medical history and physical exam. ??? Urine tests. ??? Blood tests. You may also have imaging tests of the kidneys, such as an ultrasound or CT scan. How is this treated? Treatment for this condition may depend on the severity of the infection. ??? If the infection is mild and is found early, you may be treated with antibiotic medicines taken by mouth. You will need to drink fluids to remain hydrated. ??? If the infection is more severe, you may need to stay in the hospital and receive antibiotics given directly into a vein through an IV tube. You may also need to receive fluids through an IV tube if you are not able to remain hydrated. After your hospital stay, you may need to take oral antibiotics for a period of time. Other treatments may be required, depending on the cause of the infection. Follow these instructions at home: Medicines ??? Take ljms-dwm-jsqyock and prescription medicines only as told by your health care provider. ??? If you were prescribed an antibiotic medicine, take it as told by your health care provider. Do not stop taking the antibiotic even if you start to feel better. General instructions ??? Drink enough fluid to keep your urine clear or pale yellow. ??? Avoid caffeine, tea, and carbonated beverages. They tend to irritate the bladder. ??? Urinate often. Avoid holding in urine for long periods of time. ??? Urinate before and after sex. ??? After a bowel movement, women should cleanse from front to back. Use each tissue only once. ??? Keep all follow-up visits as told by your health care provider. This is important. Contact a health care provider if: ??? Your symptoms do not get better after 2 days of treatment. ??? Your symptoms get worse. ??? You have a fever. Get help right away if: ??? You are unable to take your antibiotics or fluids. ??? You have shaking chills. ??? You vomit. ??? You have severe flank or back pain. ??? You have extreme weakness or fainting. This information is not intended to replace advice given to you by your health care provider. Make sure you discuss any questions you have with your health care provider. Document Released: 08/30/2006 Document Revised: 02/04/2017 Document Reviewed: 12/23/2015 [employer] Interactive Patient Education ?? 2019 [employer]. Skin Yeast Infection Skin yeast infection is a condition in which there is an overgrowth of yeast (rylee) that normally lives on the skin. This condition usually occurs in areas of the skin that are constantly warm and moist, such as the armpits or the groin. What are the causes? This condition is caused by a change in the normal balance of the yeast and bacteria that live on the skin. What increases the risk? This condition is more likely to develop in: ??? People who are obese. ??? women. ??? Women who take control pills. ??? People who have diabetes. ??? People who take antibiotic medicines. ??? People who take steroid medicines. ??? People who are malnourished. ??? People who have a weak defense (immune) system. ??? People who are 65 years of age or older. What are the signs or symptoms? Symptoms of this condition include: ??? A red, swollen area of the skin. ??? Bumps on the skin. ??? Itchiness. How is this diagnosed? This condition is diagnosed with a medical history and physical exam. Your health care provider may check for yeast by taking light scrapings of the skin to be viewed under a microscope. How is this treated? This condition is treated with medicine. Medicines may be prescribed or be available [id number]. The medicines may be: ??? Taken by mouth (orally). ??? Applied as a cream. Follow these instructions at home: ??? Take or apply tirm-tym-iomokvs and prescription medicines only as told by your health care provider. ??? Eat more yogurt. This may help to keep your yeast infection from returning. ??? Maintain a healthy weight. If you need help losing weight, talk with your health care provider. ??? Keep your skin clean and dry. ??? If you have diabetes, keep your blood sugar under control. Contact a health care provider if: ??? Your symptoms go away and then return. ??? Your symptoms do not get better with treatment. ??? Your symptoms get worse. ??? Your rash spreads. ??? You have a fever or chills. ??? You have new symptoms. ??? You have new warmth or redness of your skin. This information is not intended to replace advice given to you by your health care provider. Make sure you discuss any questions you have with your health care provider. Document Released: 05/17/2012 Document Revised: 04/25/2017 Document Reviewed: 03/02/2016 [employer] Interactive Patient Education ?? 2019 [employer]. Emergency Awareness and Preventative Care STROKE is [...] Assistance with quitting is available by contacting 9-468-OGGW-NOW. This is a free resource providing counseling, [...] was given the opportunity to ask questions. Patient/Financial Agent Name: Patient/Financial Agent Signature: Relationship to Patient: Clinician/Hospital Financial Agent Signature: Please Provide a Telephone Number Where You Can Be Reached: Is it Permissible To Leave a Message? Date: documented in this encounter Plan of Treatment Not on file documented as of this encounter Visit Diagnoses Not on filedocumented in this encounter
--- OUTSIDE RECORDS SUMMARY | 2025-06-07 16:21 | XMS_ITS | Encounter Summary ---
Author Organization [employer] ([place], [place], [place], [place]) Address [address] [place] [address] Care Team Providers Care Applications Support Lead Name Role Phone Unavailable Primary Care Provider Unavailabl e Encounter Details Date Type Department Care Team (Late st Contact Info) Description 08/01/2019 Transcribed Document [facility] [place] [address] [place] [address] ProviderJulio MD [address] [place] [address] 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 Tobacco Use Types Packs/Day Years [...] Note - Julio Van MD - 08/01/2019 5:38 AM APPOINTMENT SETTER Pain Assessment Entered On: 08/01/2019 6:52 EST Performed On: 08/01/2019 6:48 EST by Farzaneh Rico RN Intervention Information: acetaminophen-oxyCODONE Performed by Candelaria Albert RN on 08/01/2019 05:48:00 EST acetaminophen-oxyCODONE,1Tab Oral Pain Assessment Pain Assessment : Follow-up assessment Pain Scale Used : 0-10 Scale Location : Flank, left Onset : Constant Quality : Aching Pain Radiation : No Pain Improved by : Medication Pain Intervention, Drug : Medicated Pain Improved by Intervention : No Pain Comment : Farzaneh Galvan, RN - 08/01/2019 6:52 EST Pain Scale Intensity : 8 Farzaneh Rico RN - 08/01/2019 6:52 EST Image 4 - Images currently included in the form version of this document have not been included in the text rendition version of the form. Electronically signed by Eron [facility] Conversion Senior Environmental Consultant Cerner at 12/29/2022 4:02 PM CDT documented in this encounter Plan of Treatment Not on file documented as of this encounter Visit Diagnoses Not on filedocumented in this encounter
--- OUTSIDE RECORDS SUMMARY | 2025-06-07 16:21 | XMS_ITS | Encounter Summary ---
Author Organization [employer] ([place], [place], [place], [place]) Address [address] [place] [address] Care Team Providers Care Comic Writer Name Role Phone Unavailable Primary Care Provider Unavailabl e Encounter Details Date Type Department Care Team (Late st Contact Info) Description 05/18/2020 Transcribed Document [facility] [place] [address] [place] [address] ProviderJulio MD [address] [place] [address] 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 Tobacco Use Types Packs/Day Years [...] Van MD - 05/18/2020 9:33 PM CDT [place] Suicide Severity Rating Scale (C-SSRS) Entered On: 05/18/2020 21:40 EDT Performed On: 05/18/2020 21:36 EDT by Candelaria Albert RN [place] Suicide Severity Rating Scale (C-SSRS) CSSRS Past Month Wish to be : No CSSRS Past Month Suicidal Thoughts : No CSSRS Lifetime Suicide Behavior : No Suicide Severity Rating Score : 0 Suicide Severity Rating : No Additional Care Required at this time Thoughts of Harming/Killing Others : No Candelaria Albert RN - 05/18/2020 21:36 EDT documented in this encounter Plan of Treatment Not on file documented as of this encounter Visit Diagnoses Not on filedocumented in this encounter
--- OUTSIDE RECORDS SUMMARY | 2025-06-07 16:21 | XMS_ITS | Encounter Summary ---
Author Organization [employer] ([place], [place], [place], [place]) Address [address] [place] [address] Care Team Providers Care Loader Operator Name Role Phone Unavailable Primary Care Provider Unavailabl e Encounter Details Date Type Department Care Team (Late st Contact Info) Description 06/29/2019 Transcribed Document [facility] Radiology [address] [place] [address] Mary Ann Chadwick MD One [facility] Dept [place] [address] 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 Tobacco Use Types Packs/Day Years [...] Note - Mary Ann Chadwick MD - 06/29/2019 11:30 PM EDT documented in this encounter Plan of Treatment Not on file documented as of this encounter Visit Diagnoses Not on filedocumented in this encounter
--- OUTSIDE RECORDS SUMMARY | 2025-06-07 16:21 | XMS_ITS | Encounter Summary ---
Author Organization [employer] ([place], [place], [place], [place]) Address [address] [place] [address] Care Team Providers Care Crisis Counselor Name Role Phone Unavailable Primary Care Provider Unavailabl e Encounter Details Date Type Department Care Team (Late st Contact Info) Description 05/18/2020 Transcribed Document [facility] [place] [address] [place] [address] ProviderJulio MD [address] [place] [address] 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 Tobacco Use Types Packs/Day Years [...] Note - Julio Van MD - 05/18/2020 11:00 PM CDT ED Discharge Vital Signs Entered On: 05/18/2020 23:38 EDT Performed On: 05/18/2020 23:00 EDT by Farzaneh Rico RN ED Discharge Vital Signs Peripheral Pulse Rate : 97 bpm Respiratory Rate : 16 Breaths/Min Blood Pressure Location : Arm, right upper Blood Pressure Source : Non-Invasive BP Device Systolic Blood Pressure : 193 mmHg (HI) Diastolic Blood Pressure : 103 mmHg (HI) Oxygen Saturation : 97 % Oxygen Therapy Mode : Room air Farzaneh Rico RN - 05/18/2020 23:38 EDT documented in this encounter Plan of Treatment Not on file documented as of this encounter Visit Diagnoses Not on filedocumented in this encounter
--- OUTSIDE RECORDS SUMMARY | 2025-06-07 16:21 | XMS_ITS | Encounter Summary ---
Author Organization [employer] ([place], [place], [place], [place]) Address [address] [place] [address] Care Team Providers Care Picker And Sorter Load And Unload Name Role Phone Unavailable Primary Care Provider Unavailabl e Encounter Details Date Type Department Care Team (Late st Contact Info) Description 06/29/2019 Transcribed Document [facility] Radiology [address] [place] [address] Mary Ann Chadwick MD One [facility] Dept of Emergency Medicine [place] [id number] 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 Tobacco Use Types Packs/Day Years [...] - Mary Ann Chadwick MD - 06/29/2019 11:24 PM EDT Patient: OREN KIM Age: 33 years Sex: Female : 1985 Associated Diagnoses: Left flank pain; Pyelonephritis, acute; Yeast dermatitis Author: MARY ANN CHADWICK MD Basic Information Time seen: Date & time 06/29/2019 20:47:00. History source: Patient. Additional information: Chief Complaint from Nursing Triage Note : Chief Complaint 06/29/2019 20:33 EDT Chief Complaint C/O left lower back pain. with painful urination. Onset last week. . History of Present Illness The patient presents with left low back pain. The onset was about a week. The course/duration of symptoms is fluctuating in intensity. The degree at present is 8 /10. The Location of pain at present is left, lower and back. Associated symptoms: rash right groin area with exudate and foul odor and denies vomiting. Pt reports history of kidney stones, ureteral stent. Review of Systems Constitutional symptoms: Negative except [...] reactions were documented.. Medications: (Selected) Prescriptions Prescribed promethazine 25 mg oral tablet: 1 Tab, Oral, Q6H, PRN: as needed for nausea/vomiting, 15 Tab, 0 Refill(s) Documented Medications Documented BuSpar: [...] Medical history Reviewed as documented in chart. Surgical history: Lithotripsy ([id number])., Reviewed as documented in chart. Family history: [...] Physical Examination Vital Signs Vital Signs/Vital Measures 06/29/2019 22:21 EDT Systolic Blood Pressure 168 mmHg HI Diastolic Blood Pressure 87 mmHg Peripheral Pulse Rate 95 bpm Respiratory Rate 17 Breaths/Min Oxygen Saturation 96 % 06/29/2019 20:33 EDT Blood Pressure Location Arm, right upper Blood Pressure Source Non-Invasive BP Device Systolic Blood Pressure 184 mmHg HI Diastolic Blood Pressure 102 mmHg HI Temperature Source Oral Temperature Mode Fahrenheit Temperature, Fahrenheit 98.2 Deg F Clinical Temperature, C 36.8 Deg C Peripheral Pulse Rate 114 bpm HI Respiratory Rate 18 Breaths/Min Oxygen Saturation 96 % Oxygen Therapy Mode Room air . Measurements 06/29/2019 20:33 EDT Height Source Stated Height Entry Format [place] Height/Length, CZECH (ft) 5 ft Height/Length CZECH 2 Inch CLINICALHEIGHT 157.48 cm [place] Body Weight 49.73 kg Weight Source, ED Critical estimated dosing weight Weight Entry Format [place] Weight Sinhala lb 220 lb CLINICALWEIGHT 100 kg Body Surface Area (BSA) 1.99 m2 Body Mass Index 40.3 kg/m2 >HHI . Oxygen Saturation 06/29/2019 22:21 EDT Oxygen Saturation 96 % 06/29/2019 20:33 EDT Oxygen Saturation 96 % . General: Alert, no acute distress, obese. Skin: Warm, dry, right groin area has erythematous rash with exudate consistent with yeast dermatitis. Ears, nose, mouth and throat: Oral mucosa moist, Nose: no bleeding. Gastrointestinal: Soft, Nontender, Non distended. Back: Left CVA tenderness. No midline L spine tenderness or step off.. Neurological: Normal speech observed, no dysarthria, no facial droop. Medical Decision Making Differential Diagnosis: Abdominal pain, ureteral stone, urinary tract infection. Documents reviewed: WILLIS report reviewed, request #[id number] . Orders Include Previous Orders (Selected) Inpatient Orders Ordered Discharge: ED Fall Risk Documented: Ordered (Collected) Culture Urine: Completed .Urinalysis Microscopic: CT Abdomen Pelvis WO: ED Adult Fall Risk Assessment: ED Adult Triage: ED Clinical Reconciliation: ED vp: HCG Urine Qualitative: Macrobid: 100 mg, Oral, 1-Time Urinalysis w Microscopic if Indicated: fluconazole: 200 mg, Oral, 1-Time morphine: 8 mg, IntraMuscular, 1-Time promethazine: 25 mg, IntraMuscular, 1-Time Discontinued fluconazole: 150 mg, Oral, 1-Time Prescriptions Prescribed Macrobid 100 mg oral capsule: 1 Cap, Oral, BID, for 10 Day(s), 20 Cap, 0 Refill(s) Pyridium 200 mg oral tablet: 1 Tab, Oral, TID, PRN: as needed for urinary discomfort, 9 Tab, 0 Refill(s) fluconazole 200 mg oral tablet: 1 Tab, Oral, Daily, for 14 Day(s), 14 Tab, 0 Refill(s) nystatin 100,000 units/g topical powder: 1 Application, Topical, BID, 60 Gram, 0 Refill(s) oxyCODONE 5 mg oral tablet: 1 Tab, Oral, Q6H, PRN: as needed for pain, 10 Tab, 0 Refill(s) promethazine 25 mg oral tablet: 1 Tab, Oral, Q6H, PRN: as needed for nausea/vomiting, 20 Tab, 0 Refill(s) . Results review: Lab results : Lab Results 06/29/2019 20:53 EDT Urine Type U CleanCatch Urine Color Yellow Urine Appearance Hazy Urine Specific [place] >=1.030 Urine pH Dipstick 6.0 Urine Leukocyte Esterase Moderate Urine Nitrite Negative Urine Protein Dipstick 30 Urine Glucose Dipstick Negative Urine Ketones Dipstick Negative Urine Urobilinogen Dipstick 0.2 EU/dL Urine Bilirubin Dipstick Negative Urine Blood Dipstick Small Ur RBC TNTC /HPF Ur WBC TNTC /HPF Ur Bacteria 1+ Ur Mucous 2+ Ur Squamous Epithelial Cells 20-50 /HPF Ur Yeast 1+ HCG Urine Qualitative Negative . Radiology results: Computed tomography, reviewed radiologist's report, interpretation: REPORT CT of the abdomen and pelvis without contrast INDICATION:The sided flank pain, dysuria COMPARISON: To 518 TECHNIQUE: Helically acquired noncontrast axial multidetector CT images were obtained from the lung bases through the pelvis. Dose reduction techniques to achieve ALARA were employed. Findings: The lung bases are clear. There is a 3-4 mm nonobstructive left lower pole renal calculus. There is a punctate, less than 1 mm, nonobstructive left upper pole renal calculus. No additional renal or ureteral calculi identified. There is no hydronephrosis. The liver, spleen, adrenal glands, pancreas, and visualized portions of the bowel are unremarkable. No significant osseous abnormalities are identified. IMPRESSION:Nonobstructive left-sided renal calculi as above. Signature Line Final Dictated by: ROSS GREEN MD-RAD Dictated DT/TM: 06/29/2019 9:52 pm Interpreted and electronically signed by: ROSS GREEN MD-RAD Signed DT/TM: 06/29/2019 9:54 pm Transcribed by: RS REPORT This document has an image Result type: CT Abdomen Pelvis WO Result date: June 29, 2019 21:20 EDT Result status: Auth (Verified) Result title: CT Abdomen Pelvis WO Signed By/Author: ROSS GREEN MD-RAD on June 29, 2019 21:52 EDT Verified by: ROSS GREEN MD-RAD on June 29, 2019 21:54 EDT Encounter info: [id number], [facility], Emergency Room, 06/29/2019 - 06/29/2019 . Impression and Plan Diagnosis Left flank pain - Discharge, Emergency medicine, Medical Pyelonephritis, acute - Discharge, Emergency medicine, Medical Yeast dermatitis - Discharge, Emergency medicine, Medical Plan Condition: Improved. Disposition: Discharged Admit/Transfer/Discharge: Discharge (Order): Start: 06/29/2019 22:42 EDT, Discharge to: Home . Prescriptions: Prescription [facility]: oxyCODONE 5 mg oral tablet (Prescribe): 1 Tab, Oral, Q6H, PRN: as needed for pain, 10 Tab, 0 Refill(s) promethazine 25 mg oral tablet (Prescribe): 1 Tab, Oral, Q6H, PRN: as needed for nausea/vomiting, 20 Tab, 0 Refill(s) Pyridium 200 mg oral tablet (Prescribe): 1 Tab, Oral, TID, PRN: as needed for urinary discomfort, 9 Tab, 0 Refill(s) fluconazole 200 mg oral tablet (Prescribe): 1 Tab, Oral, Daily, for 14 Day(s), 14 Tab, 0 Refill(s) Macrobid 100 mg oral capsule (Prescribe): 1 Cap, Oral, BID, for 10 Day(s), 20 Cap, 0 Refill(s), Prescription [facility]: nystatin 100,000 units/g topical powder (Prescribe): 1 Application, Topical, BID, 60 Gram, 0 Refill(s) . Patient was given the following educational materials: Skin Yeast Infection, Pyelonephritis, Adult. Follow up with: NICOLE ERNST Within 2 to 3 days; Follow up with primary care provider Within 2 to 3 days; JUANITA THIBODEAUX Within 2 to 3 days your urologist. Counseled: Patient, Regarding diagnostic results, Regarding treatment plan. documented in this encounter Plan of Treatment Not on file documented as of this encounter Visit Diagnoses Not on filedocumented in this encounter
--- OUTSIDE RECORDS SUMMARY | 2025-06-07 16:21 | XMS_ITS | Encounter Summary ---
Author Organization [employer] ([place], [place], [place], [place]) Address [address] [place] [address] Care Team Providers Care Thimble Press Operator Name Role Phone Unavailable Primary Care Provider Unavailabl e Encounter Details Date Type Department Care Team (Late st Contact Info) Description 05/18/2020 Transcribed Document [facility] [place] [facility] [place] [address] ProviderJulio MD [address] [place] [address] 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 Tobacco Use Types Packs/Day Years [...] Note - Julio Van MD - 05/18/2020 9:57 PM CDT Patient: OREN KIM Age: 34 years Sex: Female : 1985 Associated Diagnoses: Right flank pain; Abdominal pain; UTI (urinary tract infection) Author: LESLIE WHITMORE DO Basic Information Time seen: Date 05/18/2020, Immediately upon arrival. History source: Patient. Arrival mode: Private vehicle. History limitation: None. Additional information: Chief Complaint from Nursing Triage Note : Chief Complaint 05/18/2020 21:36 EDT Chief Complaint Pt c/o right flank pain and epigastric pain. Pt has hx kidney stones and pancreatitis. . History of Present Illness The patient presents with abdominal pain and flank pain. The onset was 2 days ago. The course/duration of symptoms is worsening. The character of symptoms is dull. The degree at onset was minimal. The Location of pain at onset was right, lower, abdominal, flank and mid epigastric. The degree at present is minimal. The Location of pain at present is right, lower, abdominal, flank and mid epigastric. Radiating pain: none. The exacerbating factor is none. The relieving factor is none. Therapy today: none. Risk factors consist of hypertension and obesity. Associated symptoms: nausea. Additional history: none. Review of Systems Additional review of systems information: All other systems reviewed and otherwise negative. Health Status Allergies: Allergic Reactions (Selected) Severity [...] as documented in chart. Surgical history: Lithotripsy ([id number])., Reviewed as documented in chart. Family history: No family history items have been selected or recorded., Reviewed as documented in chart. Social history: Social & Psychosocial Habits Alcohol 02/24/2015 Alcohol Use History, Social Habits No Substance Abuse 02/24/2015 Recreational Drug Use Last 12 Months No Tobacco 02/24/2015 Tobacco Use Within Last Twelve Months Snuff/Dip Packs/Tins Daily 0.5 , Reviewed as documented in chart. Problem list: Active Problems (3) Endometriosis Kidney stones PTSD (post-traumatic stress disorder) , per nurse's notes. Physical Examination Vital Signs Time: 05/18/2020 21:58:00. Vital Signs/Vital Measures 05/18/2020 21:36 EDT Systolic Blood Pressure 209 mmHg HI Diastolic Blood Pressure 102 mmHg HI Temperature Source Oral Temperature Mode Fahrenheit Temperature, Fahrenheit 99.0 Deg F Clinical Temperature, C 37.2 Deg C Peripheral Pulse Rate 105 bpm HI Respiratory Rate 18 Breaths/Min Oxygen Saturation 96 % Oxygen Therapy Mode Room air . Measurements 05/18/2020 21:36 EDT Height Source Stated Height Entry Format [place] Height/Length, M[place] (ft) 5 ft Height/Length [place] 2 Inch CLINICALHEIGHT 157.48 cm [place] Body Weight 49.73 kg Weight Source, ED Critical estimated dosing weight Weight Entry Format [place] Weight Indonesian lb 240 lb CLINICALWEIGHT 109.09 kg Body Surface Area (BSA) 2.07 m2 Body Mass Index 44 kg/m2 >HHI . Oxygen Saturation 05/18/2020 21:36 EDT Oxygen Saturation 96 % . General: Alert, no acute distress. Skin: Warm, dry, pink, intact, no pallor, no rash, normal for ethnicity. Head: Normocephalic, atraumatic. Neck: Supple, trachea midline, no tenderness, no JVD, no carotid bruit. Eye: Pupils are equal, round and reactive to light, extraocular movements are intact, normal conjunctiva, vision unchanged. Ears, nose, mouth and throat: Tympanic membranes clear, oral mucosa moist, no pharyngeal erythema or exudate. Cardiovascular: Regular rate and rhythm, No murmur, Normal peripheral perfusion, No edema. Respiratory: Lungs are clear to auscultation, respirations are non-labored, breath sounds are equal, Symmetrical chest wall expansion. Chest wall: No tenderness, No deformity. Back: Nontender, Normal range of motion, Normal alignment, no step-offs. Musculoskeletal: Normal ROM, normal strength, no tenderness, no swelling, no deformity. Gastrointestinal: Soft, Nontender, Non distended, Normal bowel sounds, No organomegaly. Genitourinary: No tenderness. Neurological: Alert and oriented to person, place, time, and situation, No focal neurological deficit observed, CN II-XII intact, normal sensory observed, normal motor observed, normal speech observed, normal coordination observed. Lymphatics: No lymphadenopathy. Psychiatric: Cooperative, appropriate mood & affect, normal judgment, non-suicidal. Medical Decision Making Differential Diagnosis: Abdominal pain, renal stone, ureteral stone, biliary colic, cholecystitis, hepatitis, pancreatitis, irritable bowel syndrome, urinary tract infection, pyelonephritis, gastroesophageal reflux disease. Documents reviewed: Emergency department nurses' notes, emergency department records, prior records. Results review: Lab results : Lab Results 05/18/2020 21:38 EDT Sodium Level 140 mmol/L Potassium Level 4.6 mmol/L Chloride Level 105 mmol/L Carbon Dioxide Level 22 mmol/L Anion Gap 18 Glucose Level 119 mg/dL HI Blood Urea Nitrogen 16 mg/dL Creatinine Level na mg/dL (Modified) eGFR 889 mL/min/1.73m2 eGFR NonAfrican 733 mL/min/1.73m2 Bun/Creatinine na Calcium Level 9.1 mg/dL Protein Total 6.7 Gram/dL Albumin Level 3.0 Gram/dL LOW Globulin 3.7 Gram/dL A/G Ratio 0.8 LOW Bilirubin Total 0.2 mg/dL Alk Phos 86 Units/Liter AST 21 Units/Liter ALT 29 Units/Liter Lipase Level 398 Units/Liter HI WBC 13.5 K/uL HI RBC 4.98 Million/uL Hgb 13.4 Gram/dL Hct 40.9 % MCV 82.1 fL MCH 26.9 pg MCHC 32.8 Gram/dL Platelet Count 207 K/uL MPV 10.7 fL RDW 15.2 % HI Neut % 73.9 % HI Neut # 9.98 K/uL HI Lymph % 17.8 % LOW Lymph # 2.41 K/uL Grundy % 6.1 % Grundy # 0.82 K/uL Eos % 1.7 % Eos # 0.23 K/uL Baso % 0.1 % Baso # 0.02 K/uL Slide Review No IG# 0 x10(3)/uL IG% 0 % Urine Type. U CleanCatch Urine Color Yellow Urine Appearance Slightly Cloudy Urine Specific [place] >=1.030 Urine pH Dipstick 6.0 Urine Leukocyte Esterase Trace Urine Nitrite Negative Urine Protein Dipstick Negative Urine Glucose Dipstick Negative Urine Ketones Dipstick Negative Urine Urobilinogen Dipstick 0.2 EU/dL Urine Bilirubin Dipstick Negative Urine Blood Dipstick Trace-lysed Ur RBC 2-5 /HPF Ur WBC 20-50 /HPF Ur Bacteria 1+ Ur Mucous Trace Ur Amorph Trace Ur Squamous Epithelial Cells 10-20 /HPF Ur Transitional Epi Cells 0-2 . Impression and Plan Diagnosis Right flank pain - Discharge, Emergency medicine, Medical Abdominal pain - Discharge, Emergency medicine, Medical UTI (urinary tract infection) - Discharge, Emergency medicine, Medical Plan Condition: Stable. Disposition: Discharged Admit/Transfer/Discharge: Discharge (Order): Start: 05/18/2020 22:41 EDT, Discharge to: Home. Prescriptions: Prescription [facility]: nystatin 100,000 units/g topical powder (Prescribe): 1 Application, Topical, BID, 30 Gram, 0 Refill(s) Diflucan 150 mg oral tablet (Prescribe): 1 Tab, Oral, Daily, for 1 Day(s), 1 Tab, 0 Refill(s) promethazine 25 mg oral tablet (Prescribe): 1 Tab, Oral, Q4H, for 5 Day(s), PRN: as needed for nausea/vomiting, 15 Tab, 0 Refill(s) cefdinir 300 mg oral capsule (Prescribe): 1 Cap, Oral, Q12H, for 7 Day(s), 14 Cap, 0 Refill(s). Patient was given the following educational materials: Abdominal Pain, Adult, Urinary Tract Infection, Adult. Follow up with: NICOLE ERNST Within 2 to 3 days, NICOLE [facility]NST Within 2 to 3 days. Counseled: Patient. Notes: Emergency department course, the patient pain was controlled. She is tolerating by mouth fluids. Labs performed and demonstrated very mild elevation of lipase at 398 chest over the reference range. She states she does have a history of pancreatitis. I did not have any recent lipase to compare to. I gave her strict instructions for returning to the ER for nausea vomiting or worsening abdominal pain or new symptoms such as fever chest pain shortness of breath dizziness or weakness. I instructed her to be on a clear liquid diet she'll she can follow up with her doctor and GI doctor. Her other labs are unremarkable apart from mild elevation of her white blood cell count. She does also have a urinary tract infection with bacteria and white blood cells in her urine. She states she has frequent urinary tract infections and she has had Omnicef in the past and tolerates that well. I reviewed her allergies and she has multiple allergies including other cephalosporins but she says Omnicef is one that works for her and that she tolerates. She also has a yeast infection on her abdomen underneath her pannus and I gave her prescription for nystatin powder and Diflucan. I instructed her to follow up with her primary care doctor in 1-2 days and if she cannot do this to return to the ER for reevaluation in 12-24 hours. And to come sooner if her symptoms are worsening. Consideration for CT imaging of her abdomen and pelvis was given however she did not want to add at this time and she's had multiple CAT scans in the recent past. Her abdominal exam on serial exams was normal. She is having subjective discomfort in the epigastric area and right flank area that was not made worse to palpation. She appears to be resting comfortably in no distress without any signs of sepsis or hemodynamic instability.. documented in this encounter Plan of Treatment Not on file documented as of this encounter Visit Diagnoses Not on filedocumented in this encounter
--- OUTSIDE RECORDS SUMMARY | 2025-06-07 16:21 | XMS_ITS | Encounter Summary ---
Author Organization [employer] ([place], [place], [place], [place]) Address [address] [place] [address] Care Team Providers Care Aircraft Machinist Name Role Phone Unavailable Primary Care Provider Unavailabl e Encounter Details Date Type Department Care Team (Late st Contact Info) Description 08/01/2019 Transcribed Document [facility] Family Medicine [address] [place] [address] ProviderJulio MD [address] [place] [address] 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 Tobacco Use Types Packs/Day Years Used Date Smoking Tobacco: Never Assessed Comments Unknown Sex and Gender Information Value Date Recorded Sex Assigned at Female 03/12/2022 2:43 PM CDT Legal Sex Female 5:44 PM CDT Gender Identity Female 03/12/2022 2:43 PM CDT Sexual Orientation Not on file documented as of this encounter Miscellaneous Notes * Cerner Conversion Note - Julio Vna MD - 08/01/2019 4:44 AM SURVIVAL EQUIPMENT REPAIRER [place] Suicide Severity Rating Scale (C-SSRS) Entered On: 08/01/2019 4:49 EST Performed On: 08/01/2019 4:49 EST by Farzaneh Rico RN [place] Suicide Severity Rating Scale (C-SSRS) CSSRS Past Month Wish to be : No CSSRS Past Month Suicidal Thoughts : No CSSRS Lifetime Suicide Behavior : No Suicide Severity Rating Score : 0 Suicide Severity Rating : No Additional Care Required at this time Farzaneh Rico RN - 08/01/2019 4:49 EST Electronically signed by [facility] Conversion Program Support Clerk Cerner at 12/29/2022 4:04 PM CDT documented in this encounter Plan of Treatment Not on file documented as of this encounter Visit Diagnoses Not on filedocumented in this encounter
--- OUTSIDE RECORDS SUMMARY | 2025-06-07 16:21 | XMS_ITS | Encounter Summary ---
Author Organization [employer] ([place], [place], [place], [place]) Address [address] [place] [address] Care Team Providers Care Ring Spinner Name Role Phone Unavailable Primary Care Provider Unavailabl e Encounter Details Date Type Department Care Team (Late st Contact Info) Description 06/29/2019 Transcribed Document [facility] [place] [address] [place] [address] ProviderJulio MD [address] [place] [address] 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 Tobacco Use Types Packs/Day Years [...] Note - Julio Van MD - 06/29/2019 10:48 PM CDT ED Discharge Entered On: 06/29/2019 22:49 EDT Performed On: 06/29/2019 22:48 EDT by Fabiana Cee RN Discharge Process Patient Disposition : Discharge Personal Belongings With Patient : Yes Patient Education Completed : Yes Teaching Evaluation : Verbalizes understanding IV Discontinued : Not applicable Nursing Documentation Completed : Yes Fabiana Cee RN - 06/29/2019 22:48 EDT ED Discharge Discharge To : Home with ambulatory/outpatient follow-up Mode Of Departure : Ambulatory, Private vehicle Accompanied By : Unaccompanied Prescriptions Given to Patient : Yes Number of Prescriptions Given : 5 Fabiana Cee RN - 06/29/2019 22:48 EDT Electronically signed by [facility] Conversion Edger Machine Operator Cerner at 12/29/2022 4:15 PM CDT documented in this encounter Plan of Treatment Not on file documented as of this encounter Visit Diagnoses Not on filedocumented in this encounter
--- OUTSIDE RECORDS SUMMARY | 2025-06-07 16:21 | XMS_ITS | Encounter Summary ---
Author Organization [employer] ([place], [place], [place], [place]) Address [address] [place] [address] Care Team Providers Care Communications Maintainer Name Role Phone Unavailable Primary Care Provider Unavailabl e Encounter Details Date Type Department Care Team (Late st Contact Info) Description 08/01/2019 Transcribed Document [facility] [place] Family Medicine [address] [place] [address] ProviderJulio MD [address] [place] [address] 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 Tobacco Use Types Packs/Day Years [...] Note - Julio Van MD - 08/01/2019 4:49 AM STEEL PLATE PRINTER Patient: OREN KIM Age: 33 years Sex: Female : 1985 Associated Diagnoses: Kidney stone Author: CODIE RUIZ MD-EMR Basic Information Additional information: Chief Complaint from Nursing Triage Note : Chief Complaint 08/01/2019 4:45 EST Chief Complaint Pt came in by EMS with left flank pain for about an hour. Hx of kidney stones. Denies fever, n/v/d. . History of Present Illness 33-year-old female presents with left flank pain. She has a history kidney stones. Review of Systems Constitutional symptoms: Negative except [...] Acetaminophen-oxyCODONE- Hives.. Medications: (Selected) Inpatient Medications Ordered Lactated Ringers bolus: 1,000 mL, 1,000 mL/Hr, IV Piggyback, 1-Time Phenergan: 12.5 mg, IV Push, 1-Time Prescriptions Prescribed Pyridium 200 mg oral tablet: 1 Tab, Oral, TID, PRN: as needed for urinary discomfort, 9 Tab, 0 Refill(s) nystatin 100,000 units/g topical powder: 1 Application, Topical, BID, 60 Gram, 0 Refill(s) oxyCODONE 5 mg oral tablet: 1 Tab, Oral, Q6H, PRN: as needed for pain, 10 Tab, 0 Refill(s) promethazine 25 mg oral tablet: 1 Tab, Oral, Q6H, PRN: as needed for nausea/vomiting, 15 Tab, 0 Refill(s) promethazine 25 mg oral [...] Medical/ Family/ 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 Surgical history: Lithotripsy ([id number]).. Family history: No family history items have [...] Physical Examination Vital Signs Vital Signs/Vital Measures 08/01/2019 4:45 EST Blood Pressure Location Arm, right upper Blood Pressure Source Non-Invasive BP Device Systolic Blood Pressure 179 mmHg HI Diastolic Blood Pressure 102 mmHg HI Temperature Source Oral Temperature Mode Fahrenheit Temperature, Fahrenheit 98.1 Deg F Clinical Temperature, C 36.7 Deg C Peripheral Pulse Rate 101 bpm HI Respiratory Rate 18 Breaths/Min Oxygen Saturation 97 % Oxygen Therapy Mode Room air . Measurements 08/01/2019 4:45 EST Height Source Stated Height Entry Format [place] Height/Length, SPANISH (ft) 5 ft Height/Length SPANISH 2 Inch CLINICALHEIGHT 157.48 cm [place] Body Weight 49.73 kg Weight Source, ED Critical estimated dosing weight Weight Entry Format [place] Weight [place] lb 220 lb CLINICALWEIGHT 100 kg Body Surface Area (BSA) 1.99 m2 Body Mass Index 40.3 kg/m2 >HHI . Oxygen Saturation 08/01/2019 4:45 EST Oxygen Saturation 97 % . General: Alert, no acute distress. Head: Normocephalic, atraumatic. Eye: Pupils are equal, round and reactive to light, extraocular movements are intact. Cardiovascular: Regular rate and rhythm, No murmur. Respiratory: Lungs are clear to auscultation, respirations are non-labored. Gastrointestinal: Soft, Normal bowel sounds, Tenderness: Mild, left flank, Guarding: Minimal, Rebound: Negative. Musculoskeletal: Normal ROM, normal strength. Neurological: Alert and oriented to person, place, time, and situation, No focal neurological deficit observed. Psychiatric: Cooperative, appropriate mood & affect. Medical Decision Making Differential Diagnosis: Abdominal pain, ureteral stone, biliary colic. Documents reviewed: Emergency department nurses' notes. Results review: Lab results : Lab Results 08/01/2019 4:48 EST Urine Type U CleanCatch Urine Color Yellow Urine Appearance Cloudy Urine Specific [place] >=1.030 Urine pH Dipstick 6.0 Urine Leukocyte Esterase Small Urine Nitrite Negative Urine Protein Dipstick 100 Urine Glucose Dipstick Negative Urine Ketones Dipstick Negative Urine Urobilinogen Dipstick 0.2 EU/dL Urine Bilirubin Dipstick Negative Urine Blood Dipstick Moderate Ur RBC 2-5 /HPF Ur WBC 20-50 /HPF Ur Bacteria 3+ Ur Mucous Trace Ur Squamous Epithelial Cells 5-10 /HPF Ur Transitional Epi Cells 2-5 Ur Calcium Oxalate Crystals 1+ . Radiology results: Computed tomography, reviewed radiologist's report. Impression and Plan Diagnosis Kidney stone - Discharge, Emergency medicine, Medical Plan Prescriptions: Prescription [facility]: ciprofloxacin 500 mg oral tablet (Prescribe): 1 Tab, Oral, Q12H, for 7 Day(s), 14 Tab, 0 Refill(s), Prescription [facility]: Percocet 5/325 oral tablet (Prescribe): 1 Tab, Oral, Q4H, PRN: for pain, 12 Tab, 0 Refill(s). Patient was given the following educational materials: Kidney Stones, Kidney Stones. Follow up with: RUPESH WOLF Within 2 to 3 days; Follow up with primary care provider Within 2 to 3 days Take all antibiotics. Pain medication as needed. Call your doctor for follow-up. Return if worse.. Electronically signed by Rachel Littlejohn Conversion Strategy Planning Consultant Cerner at 12/29/2022 4:03 PM CDT documented in this encounter Plan of Treatment Not on file documented as of this encounter Visit Diagnoses Not on filedocumented in this encounter
--- OUTSIDE RECORDS SUMMARY | 2025-06-07 16:21 | XMS_ITS | Encounter Summary ---
Author Organization [employer] ([place], [place], [place], [place]) Address [address] [place] [address] Care Team Providers Care Health And Safety Advisor Name Role Phone Unavailable Primary Care Provider Unavailabl e Encounter Details Date Type Department Care Team (Late st Contact Info) Description 05/18/2020 Transcribed Document [facility] [place] Family Medicine [address] [place] [address] ProviderJulio MD [address] [place] [address] 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 Tobacco Use Types Packs/Day Years [...] Note - Julio Van MD - 05/18/2020 11:04 PM CDT ED Discharge Entered On: 05/18/2020 23:39 EDT Performed On: 05/18/2020 23:04 EDT by Farzaneh Rico RN Discharge Process Patient Disposition : Discharge Personal Belongings With Patient : No personal belongings to return Patient Education Completed : Yes Teaching Evaluation : Verbalizes understanding IV Discontinued : Not applicable Nursing Documentation Completed : Yes Farzaneh Rico RN - 05/18/2020 23:38 EDT ED Discharge Discharge To : Home without planned follow-up Mode Of Departure : Private vehicle Accompanied By : Responsible adult Discharge Instructions Reviewed With, Opportunity For Questions Given : Patient Prescriptions Given to Patient : Electronically sent Number of Prescriptions Given : 4 Farzaneh Rico RN - 05/18/2020 23:38 EDT documented in this encounter Plan of Treatment Not on file documented as of this encounter Visit Diagnoses Not on filedocumented in this encounter
--- OUTSIDE RECORDS SUMMARY | 2025-06-07 16:22 | XMS_ITS | Encounter Summary ---
Author Organization [employer] ([place], [place], [place], [place]) Address [address] [place] [address] Care Team Providers Care Pilates Coordinator Name Role Phone Unavailable Primary Care Provider Unavailabl e Encounter Details Date Type Department Care Team (Late st Contact Info) Description 08/23/2019 Transcribed Document [facility] [place] [address] [place] [address] ProviderJulio MD [address] [place] [address] 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 Tobacco Use Types Packs/Day Years Used Date Smoking Tobacco: Never Assessed Comments Unknown Sex and Gender Information Value Date Recorded Sex Assigned at Female 03/12/2022 2:43 PM CDT Legal Sex Female 5:44 PM CDT Gender Identity Female 03/12/2022 2:43 PM CDT Sexual Orientation Not on file documented as of this encounter Miscellaneous Notes * Cerner Conversion Note - Julio ProviderMD - 08/23/2019 9:54 AM DUMP TRUCK OPERATOR Pain Assessment Entered On: 08/23/2019 11:24 EST Performed On: 08/23/2019 11:24 EST by JEANIE WILSON RN Intervention Information: acetaminophen-oxyCODONE Performed by JEANIE WILSON RN on 08/23/2019 10:03:00 EST acetaminophen-oxyCODONE,1Tab Oral Pain Assessment Pain Assessment : Follow-up assessment Pain Scale Used : 0-10 Scale Location : Abdomen, left lower, Abdomen, left upper Quality : Sharp, Spasms, Throbbing JEANIE WILSON RN - 08/23/2019 11:24 EST Pain Scale Intensity : 6 JEANIE WILSON RN - 08/23/2019 11:24 EST Image 4 - Images currently included in the form version of this document have not been included in the text rendition version of the form. documented in this encounter Plan of Treatment Not on file documented as of this encounter Visit Diagnoses Not on filedocumented in this encounter
--- OUTSIDE RECORDS SUMMARY | 2025-06-07 16:22 | XMS_ITS | Encounter Summary ---
Author Organization [employer] ([place], [place], [place], [place]) Address [address] [place] [address] Care Team Providers Care Business Intelligence Developer Name Role Phone Unavailable Primary Care Provider Unavailabl e Encounter Details Date Type Department Care Team (Late st Contact Info) Description 08/01/2019 Transcribed Document [facility] [place] [address] [place] [address] ProviderJulio MD [address] [place] [address] 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 Tobacco Use Types Packs/Day Years [...] Julio Van MD - 08/01/2019 4:44 AM ECHOCARDIOGRAPHER ED Assessment Entered On: 08/01/2019 6:02 EST Performed On: 08/01/2019 6:01 EST by Candelaria Albert RN ED Quick Look Assessment Level of Consciousness : Alert, Awake Affect/Behavior : Appropriate, Calm, Cooperative Orientation : Oriented x 4 Skin Temperature : Warm Skin Description : Normal for ethnicity Candelaria Albert RN - 08/01/2019 6:01 EST ED General-Functional Assess Information Obtained From : Patient Preferred Communication Mode : Verbal Communication Barrier : None Primary Language : Syrian Any Spiritual/Cultural Needs or Requests : No Currently in Unsafe Situation : No Candelaria Albert RN - 08/01/2019 6:01 EST Social Habits Smoking Status : Never (less than 100 in lifetime; none in last 30 days) Smokeless Tobacco Status : Smokeless tobacco user within last 30 days Desires Tobacco Cessation Medication : Yes Desires Tobacco Cessation Calc : 1 Candelaria Albert RN - 08/01/2019 6:01 EST 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 (As Of: 08/01/2019 06:02:55 EST) Tobacco: Use in Last 12 Months: Snuff/Dip. Packs/Tins Daily: 0.5. (Last Updated: 02/24/2015 00:10:45 EDT by GURINDER ABARCA, EVE) Alcohol: Alcohol Use History No. (Last Updated: 02/24/2015 00:10:54 EDT by GURINDER ABARCA, EVE) Substance Abuse: Use in Last 12 Months: No. (Last Updated: 02/24/2015 00:11:03 EDT by GURINDER ABARCA, RN) Genitourinary Assessment, ED Genitourinary Assessment WDL : WDL with exceptions Candelaria Albert RN - 08/01/2019 6:01 EST documented in this encounter Plan of Treatment Not on file documented as of this encounter Visit Diagnoses Not on filedocumented in this encounter
--- OUTSIDE RECORDS SUMMARY | 2025-06-07 16:22 | XMS_ITS | Encounter Summary ---
Author Organization [employer] ([place], [place], [place], [place]) Address [address] [place] [address] Care Team Providers Care Pulley Man Name Role Phone Unavailable Primary Care Provider Unavailabl e Encounter Details Date Type Department Care Team (Late st Contact Info) Description 08/31/2019 Transcribed Document [facility] [place] [address] [place] [address] ProviderJulio MD [address] [place] [address] 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 Tobacco Use Types [...] Conversion Note - Julio Van MD - 08/31/2019 4:48 PM SOIL TECHNOLOGIST [facility] [place] [facility] [address] [place] [address] OREN KIM :1985 Visit Time:08/31/2019 Your Visit Summary Your Care Team Primary Provider: FRANKIE BANG Secondary Provider: Your Diagnosis Back pain Dysuria UTI symptoms Medical Information You may obtain a copy [...] Where: [address] [place] [address] [employer] (1) Allergies most abx Keflex Toradol amoxicillin-clavulanate (SOA, SOA) cefaclor ciprofloxacin (HIVES, HIVES) codeine doxycycline (RASH/SOA, RASH/SOA) gatifloxacin midazolam nitrofurantoin (RASH/SOA, RASH/SOA) ondansetron sulfa drugs Immunizations This Visit No Immunizations Found Medications What How Much When Instructions Next Dose New ciprofloxacin (Cipro 500 mg oral tablet) 1 Tablet(s) Oral Every 12 hours Duration: 10 Day(s) Printed Prescription New HYDROmorphone (Dilaudid 2 mg oral tablet) 1 Tablet(s) Oral Every 4 Hours as needed for as needed for pain Duration: 2 Day(s) Printed Prescription Changed promethazine (promethazine 25 mg oral tablet) 1 Tablet(s) Oral Every 6 Hours as needed for as needed for nausea/vomiting Changed promethazine (promethazine 25 mg oral tablet) 1 Tablet(s) Oral Every 6 Hours Duration: 5 Day(s) Printed Prescription The home medications listed are [...] This Visit (last charted value for your 08/31/2019 visit) Urinalysis 08/31/2019 4:19 PM Ur RBC: 5-10 /HPF Urine Nitrite: Negative Urine Leukocyte Esterase: Moderate Ur Epithelial Cells: 20-50 /HPF Urine Appearance: Hazy Urine Glucose Dipstick: Negative Urine Blood Dipstick: Trace - Intact Urine Urobilinogen Dipstick: 0.2 EU/dL Urine Protein Dipstick: Negative Ur Bacteria: 2+ Urine Color: Yellow Ur WBC: 20-50 /HPF Urine Ketones Dipstick: Negative Urine pH Dipstick: 7.0 -- Normal range between ( 6.0 and 8.0 ) Urine Bilirubin Dipstick: Negative Urine Specific [place]: 1.020 -- Normal range between ( 1.005 and 1.030 ) Urine Type.: U [employer] Education Materials Urinary Tract Infection, Adult A [...] treat less common causes of UTI. ??? Pidp-omc-qbktatc medicines to treat pain. ??? Drinking enough water to stay hydrated. Follow these instructions at home: ??? Take hujl-ijk-jgwkzmi and prescription medicines only as told by [...] 06/09/2006 Document Revised: 02/22/2018 Document Reviewed: 07/20/2016 [employer] Interactive Patient Education ?? 2019 [employer] Renal Colic Renal colic is pain that is caused by passing a kidney stone. The pain can be sharp and severe. It may be felt in the back, abdomen, side (flank), or groin. It can cause nausea. Renal colic can come and go. Follow these instructions at home: Watch your condition for any changes. The following actions may help to lessen any discomfort that you are feeling: ??? Take medicines only as directed by your health care provider. ??? Ask your health care provider if it is okay to take xdso-bus-ienzjhf pain medicine. ??? Drink enough fluid to keep your urine clear or pale yellow. Drink 6???8 glasses of water each day. ??? Limit the amount of salt that you eat to less than 2 grams per day. ??? Reduce the amount of protein in your diet. Eat less meat, fish, nuts, and dairy. ??? Avoid foods such as spinach, rhubarb, nuts, or bran. These may make kidney stones more likely to form. Contact a health care provider if: ??? You have a fever or chills. ??? Your urine smells bad or looks cloudy. ??? You have pain or burning when you pass urine. Get help right away if: ??? Your flank pain or groin pain suddenly worsens. ??? You become confused or disoriented or you lose consciousness. This information is not intended to replace advice given to you by your health care provider. Make sure you discuss any questions you have with your health care provider. Document Released: 06/09/2006 Document Revised: 02/02/2017 Document Reviewed: 07/10/2015 [employer] Interactive Patient Education ?? 2019 [employer]. Emergency Awareness and Preventative Care STROKE [...] Assistance with quitting is available by contacting 0-574-OFMX-NOW. This is a free resource providing counseling, [...] was given the opportunity to ask questions. Patient/School Bus Operator Name: Patient/School Bus Operator Signature: Relationship to Patient: Clinician/Hospital School Bus Operator Signature: Please Provide a Telephone Number Where You Can Be Reached: Is it Permissible To Leave a Message? Date: Electronically signed by Eron, [facility] Conversion Lead Instructor/Flight Attendant Vijay at 12/29/2022 4:01 PM CDT documented in this encounter Plan of Treatment Not on file documented as of this encounter Visit Diagnoses Not on filedocumented in this encounter
--- OUTSIDE RECORDS SUMMARY | 2025-06-07 16:22 | XMS_ITS | Encounter Summary ---
Author Organization [employer] ([place], [place], [place], [place]) Address [address] [place] [address] Care Team Providers Care Compounder Name Role Phone Unavailable Primary Care Provider Unavailabl e Encounter Details Date Type Department Care Team (Late st Contact Info) Description 08/31/2019 Transcribed Document [facility] [place] [address] [place] [address] ProviderJulio MD [address] [place] [address] 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 Tobacco Use Types Packs/Day Years [...] Note - Julio Van MD - 08/31/2019 4:52 PM PIPE FITTER ED Discharge Entered On: 08/31/2019 16:55 EST Performed On: 08/31/2019 16:52 EST by Ana Lopez RN Discharge Process Patient Disposition : Discharge Personal Belongings With Patient : Yes Patient Education Completed : Yes Teaching Evaluation : Verbalizes understanding IV Discontinued : Not applicable Nursing Documentation Completed : Yes Ana Lopez RN - 08/31/2019 16:54 EST ED Discharge Discharge To : Home with ambulatory/outpatient follow-up Mode Of Departure : Ambulatory, Private vehicle Accompanied By : Unaccompanied Discharge Instructions Reviewed With, Opportunity For Questions Given : Patient Prescriptions Given to Patient : Yes Number of Prescriptions Given : 3 Ana Lopez RN - 08/31/2019 16:54 EST Electronically signed by Eron, [facility] Conversion Meat Stuffer Cerner at 12/29/2022 4:02 PM CDT documented in this encounter Plan of Treatment Not on file documented as of this encounter Visit Diagnoses Not on filedocumented in this encounter
--- OUTSIDE RECORDS SUMMARY | 2025-06-07 16:22 | XMS_ITS | Encounter Summary ---
Author Organization [employer] ([place], [place], [place], [place]) Address [address] [place] [address] Care Team Providers Care Life Scientists Name Role Phone Unavailable Primary Care Provider Unavailabl e Encounter Details Date Type Department Care Team (Late st Contact Info) Description 08/31/2019 Transcribed Document [facility] [place] [address] [place] [address] ProviderJulio MD [address] [place] [address] 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 Tobacco Use Types Packs/Day Years [...] Note - Julio Van MD - 08/31/2019 4:04 PM TACTICAL DEBRIEFER OFFICER ED Assessment Entered On: 08/31/2019 16:54 EST Performed On: 08/31/2019 16:10 EST by Ana Lopez RN ED Quick Look Assessment Level of Consciousness : Alert Affect/Behavior : Appropriate, Calm, Cooperative Orientation : Oriented x 4 Skin Temperature : Warm Skin Description : Dry Ana Lopez RN - 08/31/2019 16:53 EST ED General-Functional Assess Information Obtained From : Patient Preferred Communication Mode : Verbal Communication Barrier : None Primary Language : [place] Any Spiritual/Cultural Needs or Requests : No Currently in Unsafe Situation : No Ana Lopez RN - 08/31/2019 16:53 EST Social Habits Smoking Status : Never (less than 100 in lifetime; none in last 30 days) Smokeless Tobacco Status : Never Desires Tobacco Cessation Calc : 0 Ana Lopez RN - 08/31/2019 16:53 EST 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 (As Of: 08/31/2019 16:54:13 EST) Tobacco: Use in Last 12 Months: Snuff/Dip. Packs/Tins Daily: 0.5. (Last Updated: 02/24/2015 00:10:45 EDT by GURINDER ABARCA, RN) Alcohol: Alcohol Use History No. (Last Updated: 02/24/2015 00:10:54 EDT by GURINDER ABARCA, EVE) Substance Abuse: Use in Last 12 Months: No. (Last Updated: 02/24/2015 00:11:03 EDT by GURINDER ABARCA, EVE) Genitourinary Assessment, ED Genitourinary Assessment WDL : WDL with exceptions (Comment: Back pain. REcent kidney stone. Denies urinary s/s [Ana Lopez RN - 08/31/2019 16:53 EST] ) Ana Lopez RN - 08/31/2019 16:53 EST documented in this encounter Plan of Treatment Not on file documented as of this encounter Visit Diagnoses Not on filedocumented in this encounter
--- OUTSIDE RECORDS SUMMARY | 2025-06-07 16:22 | XMS_ITS | Encounter Summary ---
Author Organization [employer] ([place], [place], [place], [place]) Address [address] [place] [address] Care Team Providers Care Lip Cutter And Scorer Name Role Phone Unavailable Primary Care Provider Unavailabl e Encounter Details Date Type Department Care Team (Late st Contact Info) Description 08/23/2019 Transcribed Document [facility] [place] Medicine [address] [place] [address] ProviderJulio MD [address] [place] [address] 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 Tobacco Use Types Packs/Day Years [...] Conversion Note - Julio ProviderMD - 08/23/2019 10:04 AM FACILITIES MAINTENANCE ENGINEER ED Event Note Entered On: 08/23/2019 10:06 EST Performed On: 08/23/2019 10:04 EST by JEANIE WILSON RN ED Event Note ED Event Date/Time : 08/23/2019 10:00 EST ED Event Location : Assigned room ED Event Details : Nursing assessment additional narrative ED Description of Event : Pt. reports that she can not go home right now because she is in so much pain. Wants to take the pain med and Phenergan and see if it helps with the pain. Dr. Lopez informed. JEANIE WILSON RN - 08/23/2019 10:04 EST Electronically signed by [facility], [facility] Conversion Correspondence Specialist Cerner at 12/29/2022 4:03 PM CDT documented in this encounter Plan of Treatment Not on file documented as of this encounter Visit Diagnoses Not on filedocumented in this encounter
--- OUTSIDE RECORDS SUMMARY | 2025-06-07 16:22 | XMS_ITS | Encounter Summary ---
Author Organization [employer] ([place], [place], [place], [place]) Address [address] [place] [address] Care Team Providers Care Burning Plant Operator Name Role Phone Unavailable Primary Care Provider Unavailabl e Encounter Details Date Type Department Care Team (Late st Contact Info) Description 08/01/2019 Transcribed Document [facility] [place] Medicine [address] [place] [address] ProviderJulio MD [address] [place] [address] 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 Tobacco Use Types Packs/Day Years [...] Note - Julio Van MD - 08/01/2019 9:35 AM SCALLOP CUTTER [place] [facility] [address] [place] [address] PERSON INFORMATION Name OREN KIM Age 33 Years 1985 Sex Female Language Malay PCP RUPESH WOL[address] DR Marital Status Single Med Service Emergency Medicine Acct# Arrival 08/01/2019 04:44:00 Visit Reason Flank pain; FLANK PAIN Acuity 3 - Urgent LOS 000 04:51 Depart Date: 08/01/19 09:22 AM Address: [address] [place] [address] Comment: PROVIDER INFORMATION Provider Role Assigned Unassigned CODIE RUIZ MD-[facility] ED Physician 08/01/2019 04:47:11 Farzaneh Rico, QUALITY ASSURANCE ASSOCIATE Nurse 08/01/2019 04:55:19 08/01/2019 07:06:25 ANN DANIEL, QUALITY ASSURANCE ASSOCIATE Nurse 08/01/2019 07:06:26 DIAGNOSIS Kidney stone PHYS DOC NOTES VITALS INFORMATION Vital Sign Triage Latest Temp Source Oral Oral Temp Mode Fahrenheit Fahrenheit Temp Fahrenheit 98.1 Deg F 98.0 Deg F Temp Celsius 02 Sat 97 % 97 % Respiratory Rate 18 Breaths/Min 17 Breaths/Min Peripheral Pulse Rate 101 bpm 96 bpm Apical Heart Rate Blood Pressure 179 mmHg / 102 mmHg 154 mmHg / 79 mmHg Comment: MEDICAL INFORMATION Allergy Info: Toradol; Keflex; sulfa drugs; gatifloxacin; ondansetron; midazolam; nitrofurantoin; amoxicillin-clavulanate; cefaclor; doxycycline; codeine; ciprofloxacin; most abx Medications: Comment: DISCHARGE INFORMATION Discharge Disposition: Home Discharge Location: PATIENT EDUCATION INFORMATION Instructions: Kidney Stones Follow up: With: Address: When: Follow up with primary care provider Within 2 to 3 days Comments: Take all antibiotics. Pain medication as needed. Call your doctor for follow-up. Return if worse. With: Address: When: NO PRIM DR WOLF Within 2 to 3 days Comment: documented in this encounter Plan of Treatment Not on file documented as of this encounter Visit Diagnoses Not on filedocumented in this encounter
--- OUTSIDE RECORDS SUMMARY | 2025-06-07 16:22 | XMS_ITS | Encounter Summary ---
Author Organization [employer] ([place], [place], [place], [place]) Address [address] [place] [address] Care Team Providers Care System Consultant Name Role Phone Unavailable Primary Care Provider Unavailabl e Encounter Details Date Type Department Care Team (Late st Contact Info) Description 08/01/2019 Transcribed Document [facility] [place] Family Medicine [address] [place] [address] ProviderJulio MD [address] [place], [place] [id number] 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 Tobacco Use Types Packs/Day Years [...] Note - Julio Van MD - 08/01/2019 9:32 AM MANAGER INVENTORY ED Discharge Vital Signs Entered On: 08/01/2019 9:33 EST Performed On: 08/01/2019 9:32 EST by ANN DANIEL RN ED Discharge Vital Signs Peripheral Pulse Rate : 96 bpm Respiratory Rate : 17 Breaths/Min Systolic Blood Pressure : 154 mmHg (HI) Diastolic Blood Pressure : 79 mmHg Oxygen Saturation : 97 % Oxygen Therapy Mode : Room air ANN DANIEL RN - 08/01/2019 9:32 EST documented in this encounter Plan of Treatment Not on file documented as of this encounter Visit Diagnoses Not on filedocumented in this encounter
--- OUTSIDE RECORDS SUMMARY | 2025-06-07 16:22 | XMS_ITS | Encounter Summary ---
Author Organization [employer] ([place], [place], [place], [place]) Address [address] [place] [address] Care Team Providers Care Engraver Pantograph Name Role Phone Unavailable Primary Care Provider Unavailabl e Encounter Details Date Type Department Care Team (Late st Contact Info) Description 08/01/2019 Transcribed Document [facility] [place] Family Medicine [address] [place] [address] ProviderJulio MD [address] [place] [address] 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 Tobacco Use Types [...] Note - Julio Van MD - 08/01/2019 7:13 AM SUB PRIOR SJJ [facility] [address] [place] [address] OREN KIM :1985 Visit Time:08/01/2019 Your Visit Summary Your Care Team Primary Provider: CODIE RUIZ Secondary Provider: Your Diagnosis Flank pain Kidney stone Medical Information You may obtain a [...] 2 to 3 days Comments Take all antibiotics. Pain medication as needed. Call your doctor for follow-up. Return if worse. Follow Up with NO PRIM DR WOLF When Within 2 to 3 days Allergies most abx Keflex Toradol amoxicillin-clavulanate (SOA, SOA) cefaclor ciprofloxacin (HIVES, HIVES) codeine doxycycline (RASH/SOA, RASH/SOA) gatifloxacin midazolam nitrofurantoin (RASH/SOA, RASH/SOA) ondansetron sulfa drugs Immunizations This Visit No Immunizations Found Medications What How Much When Instructions Next Dose New acetaminophen-oxyCODONE (Percocet 5/ 325 oral tablet) 1 Tablet(s) Oral Every 4 Hours as needed for for pain Printed Prescription New ciprofloxacin (ciprofloxacin 500 mg oral tablet) 1 Tablet(s) Oral Every 12 hours Duration: 7 Day(s) Printed Prescription Changed promethazine (promethazine 25 mg oral tablet) 1 Tablet(s) Oral Every 6 Hours as needed for as needed for nausea/vomiting The home medications listed are [...] This Visit (last charted value for your 08/01/2019 visit) Urinalysis 08/01/2019 4:48 AM Ur RBC: 2-5 /HPF Urine Nitrite: Negative Urine Leukocyte Esterase: Small Urine Appearance: Cloudy Urine Glucose Dipstick: Negative Urine Blood Dipstick: Moderate Urine Type: U CleanCatch Urine Urobilinogen Dipstick: 0.2 EU/dL Ur Calcium Oxalate Crystals: 1+ Urine Protein Dipstick: 100 Ur Bacteria: 3+ Ur Squamous Epithelial Cells: 5-10 /HPF Urine Color: Yellow Ur Transitional Epi Cells: 2-5 Ur WBC: 20-50 /HPF Urine Ketones Dipstick: Negative Ur Mucous: Trace Urine pH Dipstick: 6.0 -- Normal range between ( 6.0 and 8.0 ) Urine Bilirubin Dipstick: Negative Urine Specific [place]: >=1.030 -- Normal range between ( 1.005 and 1.030 ) Education Materials Kidney Stones Kidney stones (urolithiasis) [...] kidney stones in the future. ??? Take ktgv-hso-jhugoax and prescription medicines only as told by [...] 08/30/2006 Document Revised: 02/10/2018 Document Reviewed: 02/12/2017 [employer] Interactive Patient Education ?? 2019 [employer]. Emergency Awareness and Preventative Care STROKE is [...] Assistance with quitting is available by contacting 0-488-UIKJ-NOW. This is a free resource providing counseling, support, and referral. Or you may contact your personal physician. [employer] Suicide Prevention Lifeline: The National Suicide Prevention [...] was given the opportunity to ask questions. Patient/Waste Disposal Leakage Tester Name: Patient/Waste Disposal Leakage Tester Signature: Relationship to Patient: Clinician/Hospital Waste Disposal Leakage Tester Signature: Please Provide a Telephone Number Where You Can Be Reached: Is it Permissible To Leave a Message? Date: documented in this encounter Plan of Treatment Not on file documented as of this encounter Visit Diagnoses Not on filedocumented in this encounter
--- OUTSIDE RECORDS SUMMARY | 2025-06-07 16:22 | XMS_ITS | Encounter Summary ---
Author Organization [employer] ([place], [place], [place], [place]) Address [address] [place] [address] Care Team Providers Care White Kid Buffer Name Role Phone Unavailable Primary Care Provider Unavailabl e Encounter Details Date Type Department Care Team (Late st Contact Info) Description 05/18/2020 Transcribed Document [facility] [place] Family Medicine [address] [place] [address] ProviderJulio MD [address] [place] [address] 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 Tobacco Use Types Packs/Day Years [...] MD - 05/18/2020 9:33 PM CDT ED Triage Entered On: 05/18/2020 21:39 EDT Performed On: 05/18/2020 21:36 EDT by Candelaria Albert RN ED Triage Across the Room Chief Complaint : Pt c/o right flank pain and epigastric pain. Pt has hx kidney stones and pancreatitis. Triage Date/Time : 05/18/2020 21:36 EDT Candelaria Albert RN - 05/18/2020 21:36 EDT DCP GENERIC CODE Tracking Acuity : 3 - Urgent Tracking Group : [facility] ED Candelaria Melton RN - 05/18/2020 21:36 EDT Mode of Arrival : Ambulatory Transported to ED by : Walk in To Room Via : Ambulate Accompanied By : Unaccompanied ED Vital Signs : Document Height & Weight : Document ED Allergies : Document ED Infection Control : No ED Reason for Visit : Document Tetanus Immunization : Less than 5 years Candelaria Albert RN - 05/18/2020 21:36 EDT Infectious Disease History Has the patient ever been tested for COVID-19? : Yes, Patient stated results Negative Date of COVID-19 test known? : No Does patient have symptoms of COVID-19? : No COVID19 Screening : No Experiencing Infectious Disease Symptoms : No symptoms Physical contact outside [place] in the last 30 days : No Infectious Disease History : Chicken pox/Shingles, Influenza Tuberculosis Symptoms : None Candelaria Albert RN - 05/18/2020 21:36 EDT Vital Signs ED Temperature Source : Oral Temperature Mode : Fahrenheit Temperature, Fahrenheit : 99.0 Deg F ED Pain : Yes Clinical Temperature, C : 37.2 Deg C Oxygen Therapy Mode : Room air Peripheral Pulse Rate : 105 bpm (HI) Respiratory Rate : 18 Breaths/Min Systolic Blood Pressure : 209 mmHg (HI) Diastolic Blood Pressure : 102 mmHg (HI) Oxygen Saturation : 96 % Candelaria Albert RN - 05/18/2020 21:36 EDT Allergy (As Of: 05/18/2020 21:39:59 EDT) Allergies (Active) most abx Estimated Onset Date: Unspecified ; Created By: MANPREET Magdaleno; Reaction Status: Active ; Category: Drug ; Substance: most abx ; Type: Allergy ; Updated By: MANPREET Magdaleno; Reviewed Date: 05/18/2020 21:37 EDT amoxicillin-clavulanate Estimated Onset Date: Unspecified ; Reactions: SOA, SOA ; Created By: MANPREET Magdaleno; Reaction Status: Active ; Category: Drug ; Substance: amoxicillin-clavulanate ; Type: Allergy ; Updated By: MANPREET Magdaleno; Reviewed Date: 05/18/2020 21:37 EDT cefaclor Estimated Onset Date: Unspecified ; Created By: MANPREET Magdaleno; Reaction Status: Active ; Substance: cefaclor ; Updated By: MANPREET Magdaleno; Reviewed Date: 05/18/2020 21:37 EDT ciprofloxacin Estimated Onset Date: Unspecified ; Reactions: HIVES, HIVES ; Created By: MANPREET Magdaleno; Reaction Status: Active ; Substance: ciprofloxacin ; Updated By: MANPREET Magdaleno; Reviewed Date: 05/18/2020 21:37 EDT codeine Estimated Onset Date: Unspecified ; Created By: LORE JARQUIN RN; Reaction Status: Active ; Category: Drug ; Substance: codeine ; Type: Allergy ; Updated By: LORE JARQUIN RN; Reviewed Date: 05/18/2020 21:37 EDT doxycycline Estimated Onset Date: Unspecified ; Reactions: RASH/SOA, RASH/SOA ; Created By: MANPREET Magdaleno; Reaction Status: Active ; Category: Drug ; Substance: doxycycline ; Type: Allergy ; Updated By: MANPREET Magdaleno; Reviewed Date: 05/18/2020 21:37 EDT gatifloxacin Estimated Onset Date: Unspecified ; Created By: MANPREET Magdaleno; Reaction Status: Active ; Substance: gatifloxacin ; Updated By: MANPREET Magdaleno; Reviewed Date: 05/18/2020 21:37 EDT Keflex Estimated Onset Date: Unspecified ; Created By: Cathi Green RN; Reaction Status: Active ; Category: Drug ; Substance: Keflex ; Type: Allergy ; Updated By: Cathi Green RN; Reviewed Date: 05/18/2020 21:37 EDT midazolam Estimated Onset Date: Unspecified ; Created By: MANPREET Magdaleno; Reaction Status: Active ; Category: Drug ; Substance: midazolam ; Type: Allergy ; Updated By: MANPREET Magdaleno; Reviewed Date: 05/18/2020 21:37 EDT nitrofurantoin Estimated Onset Date: Unspecified ; Reactions: RASH/SOA, RASH/SOA ; Created By: MANPREET Magdaleno; Reaction Status: Active ; Category: Drug ; Substance: nitrofurantoin ; Type: Allergy ; Updated By: MANPREET Magdaleno; Reviewed Date: 05/18/2020 21:37 EDT ondansetron Estimated Onset Date: Unspecified ; Created By: MANPREET Magdaleno; Reaction Status: Active ; Category: Drug ; Substance: ondansetron ; Type: Allergy ; Updated By: MANPREET Magdaleno; Reviewed Date: 05/18/2020 21:37 EDT sulfa drugs Estimated Onset Date: Unspecified ; Created By: MANPREET Magdaleno; Reaction Status: Active ; Substance: sulfa drugs ; Updated By: MANPREET Magdaleno; Reviewed Date: 05/18/2020 21:37 EDT Toradol Estimated Onset Date: Unspecified ; Created By: Cathi Green RN; Reaction Status: Active ; Category: Drug ; Substance: Toradol ; Type: Allergy ; Updated By: Cathi Green RN; Reviewed Date: 05/18/2020 21:37 EDT Diagnosis Control ED (As Of: 05/18/2020 21:39:59 EDT) Problems(Active) Endometriosis (SNOMED CT :208166498 ) Name of Problem: Endometriosis ; Recorder: Farzaneh Rico RN; Confirmation: Confirmed ; Classification: Medical ; Code: [id number] ; Contributor System: [employer] ; Last Updated: 11/16/2019 4:18 EST ; Life Cycle Date: 11/16/2019 ; Life Cycle Status: Active ; Vocabulary: SNOMED CT Kidney stones (SNOMED CT :870855460 ) Name of Problem: Kidney stones ; Recorder: MANFRED CAI PA; Confirmation: Confirmed ; Classification: Medical ; Code: [id number] ; Contributor System: [employer] ; Last Updated: 10/24/2015 13:26 EST ; Life Cycle Date: 10/24/2015 ; Life Cycle Status: Active ; Responsible Provider: MANFRED CAI PA; Vocabulary: SNOMED CT PTSD (post-traumatic stress disorder) (SNOMED CT :36917366 ) Name of Problem: PTSD (post-traumatic stress disorder) ; Recorder: MANFRED CAI PA; Confirmation: Confirmed ; Classification: Medical ; Code: [id number] ; Contributor System: [employer] ; Last Updated: 10/24/2015 13:26 EST ; Life Cycle Date: 10/24/2015 ; Life Cycle Status: Active ; Responsible Provider: MANFRED CAI PA; Vocabulary: SNOMED CT Diagnoses(Active) Flank pain Date: 05/18/2020 ; Diagnosis Type: Reason For Visit ; Confirmation: Complaint of ; Clinical Dx: Flank pain ; Classification: Medical ; Clinical Service: Emergency medicine ; Code: PNED ; Probability: 0 ; Diagnosis Code: [id number] ED Height and Weight Height Source : Stated Height Entry Format : [place] Height, Feet : 5 ft(Converted to: 152 cm, 60 Inch) Height, Inches : 2 Inch(Converted to: 0 ft 2 Inch, 5.08 cm) Clinical Height : 157.48 cm Weight Source, ED : Critical estimated dosing weight Weight Entry Format : [place] Weight, Pounds : 240 lb Clinical Dosing Weight : 109.09 kg Body Surface Area (BSA) : 2.07 m2 Body Mass Index : 44 kg/m2 (>HHI) [place] Body Weight (IBW) : 49.73 kg Candelaria Albert RN - 05/18/2020 21:36 EDT Pain Assessment Pain Assessment : Initial assessment Pain Scale Used : 0-10 Scale Candelaria Albert RN - 05/18/2020 21:36 EDT Pain Scale Intensity : 9 Candelaria Albert RN - 05/18/2020 21:36 EDT Image 4 - Images currently included in the form version of this document have not been included in the text rendition version of the form. documented in this encounter Plan of Treatment Not on file documented as of this encounter Visit Diagnoses Not on filedocumented in this encounter
--- OUTSIDE RECORDS SUMMARY | 2025-06-07 16:22 | XMS_ITS | Encounter Summary ---
Author Organization [employer] ([place], [place], [place], [place]) Address [address] [place] [address] Care Team Providers Care Stores Despatch Hand Name Role Phone Unavailable Primary Care Provider Unavailabl e Encounter Details Date Type Department Care Team (Late st Contact Info) Description 07/02/2019 Transcribed Document [facility] [place] [address] [place] [address] ProviderJulio MD [address] [place] [address] 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 Tobacco Use Types Packs/Day Years Used Date Smoking Tobacco: Never Assessed Comments Unknown Sex and Gender Information Value Date Recorded Sex Assigned at Female 03/12/2022 2:43 PM CDT Legal Sex Female 5:44 PM CDT Gender Identity Female 03/12/2022 2:43 PM CDT Sexual Orientation Not on file documented as of this encounter Miscellaneous Notes * Cerner Conversion Note - Historical ProviderMD - 07/02/2019 3:20 PM CDT Urine Culture Collected: 06/29/2019 Complete Body site: Specimen Type: U CleanCatch 07/02/2019 10:33 07/02/2019 15:20 (CARA SPRINGER PA-C) Reviewed by Provider, No further action required documented in this encounter Plan of Treatment Not on file documented as of this encounter Visit Diagnoses Not on filedocumented in this encounter
--- OUTSIDE RECORDS SUMMARY | 2025-06-07 16:22 | XMS_ITS | Encounter Summary ---
Author Organization [email or web address] ([place], [place], [place], [place]) Address [address] [place] [address] Care Team Providers Care Press Breaker Name Role Phone Unavailable Primary Care Provider Unavailabl e Encounter Details Date Type Department Care Team (Late st Contact Info) Description 08/23/2019 Transcribed Document [facility] [place] Family Medicine [address] [place] [address] ProviderJulio MD [address] [place] [address] 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 Tobacco Use Types Packs/Day Years [...] Conversion Note - Julio ProviderMD - 08/23/2019 7:27 AM KEY CARRIER Pain Assessment Entered On: 08/23/2019 8:16 EST Performed On: 08/23/2019 8:14 EST by JEANIE WILSON RN Intervention Information: HYDROmorphone Performed by JEANIE WILSON RN on 08/23/2019 07:37:00 EST HYDROmorphone,1mg IV Push,Left Gluteus Medius Pain Assessment Pain Assessment : Follow-up assessment Pain Scale Used : 0-10 Scale Location : Abdomen, left upper, Back, upper Onset : Gradual Quality : Sharp, Stabbing JEANIE WILSON RN - 08/23/2019 8:14 EST Pain Scale Intensity : 6 JEANIE WILSON RN - 08/23/2019 8:14 EST Image 4 - Images currently included in the form version of this document have not been included in the text rendition version of the form. documented in this encounter Plan of Treatment Not on file documented as of this encounter Visit Diagnoses Not on filedocumented in this encounter
--- OUTSIDE RECORDS SUMMARY | 2025-06-07 16:22 | XMS_ITS | Encounter Summary ---
Author Organization [employer] ([place], [place], [place], [place]) Address [address] [place] [address] Care Team Providers Care Marine Welder Name Role Phone Unavailable Primary Care Provider Unavailabl e Encounter Details Date Type Department Care Team (Late st Contact Info) Description 08/23/2019 Transcribed Document [facility] [place] [address] [place] [address] ProviderJulio MD [address] [place] [address] 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 Tobacco Use Types Packs/Day Years [...] Conversion Note - Julio ProviderMD - 08/23/2019 6:26 AM IMAGING ADMINISTRATOR ED Triage Entered On: 08/23/2019 6:36 EST Performed On: 08/23/2019 6:31 EST by Farzaneh Rico RN ED Triage Across the Room Chief Complaint : Pt states left flank pain for about 4 hours with nausea and vomiting. Denies painful urination and fever. Triage Date/Time : 08/23/2019 6:31 EST Farzaneh Rico RN - 08/23/2019 6:31 EST DCP GENERIC CODE Tracking Acuity : 3 - Urgent Tracking Group : [facility] ED Farzaneh Riley RN - 08/23/2019 6:31 EST Mode of Arrival : Ambulatory Transported to ED by : Private vehicle To Room Via : Ambulate Accompanied By : Unaccompanied ED Vital Signs : Document Height & Weight : Document ED Allergies : Document ED Reason for Visit : Document Tetanus Immunization : Less than 5 years Farzaneh Rico RN - 08/23/2019 6:31 EST Infectious Disease History Infectious Disease History : Chicken pox/Shingles, Influenza Fever/Chills Last 48 Hours : No Travel To [place] with Travel Advisories : No Travel Outside [place] Within Last 30 Days : No Contact With Traveler to Advisory Region : No Tuberculosis Symptoms : None Farzaneh Rico RN - 08/23/2019 6:31 EST Vital Signs ED Temperature Source : Oral Temperature Mode : Fahrenheit Temperature, Fahrenheit : 98.1 Deg F ED Pain : Yes Clinical Temperature, C : 36.7 Deg C Oxygen Therapy Mode : Room air Peripheral Pulse Rate : 101 bpm (HI) Respiratory Rate : 20 Breaths/Min Blood Pressure Location : Arm, left upper Blood Pressure Source : Non-Invasive BP Device Systolic Blood Pressure : 207 mmHg (HI) Diastolic Blood Pressure : 104 mmHg (HI) Oxygen Saturation : 100 % Farzaneh Rico RN - 08/23/2019 6:31 EST Allergy (As Of: 08/23/2019 06:36:34 EST) Allergies (Active) most abx Estimated Onset Date: Unspecified ; Created By: MANPREET Magdaleno; Reaction Status: Active ; Category: Drug ; Substance: most abx ; Type: Allergy ; Updated By: MANPREET Magdaleno; Reviewed Date: 08/23/2019 6:34 EST amoxicillin-clavulanate Estimated Onset Date: Unspecified ; Reactions: SOA, SOA ; Created By: MANPREET Magdaleno; Reaction Status: Active ; Category: Drug ; Substance: amoxicillin-clavulanate ; Type: Allergy ; Updated By: MANPREET Magdaleno; Reviewed Date: 08/23/2019 6:34 EST cefaclor Estimated Onset Date: Unspecified ; Created By: MANPREET Magdaleno; Reaction Status: Active ; Substance: cefaclor ; Updated By: MANPREET Magdaleno; Reviewed Date: 08/23/2019 6:34 EST ciprofloxacin Estimated Onset Date: Unspecified ; Reactions: HIVES, HIVES ; Created By: MANPREET Magdaleno; Reaction Status: Active ; Substance: ciprofloxacin ; Updated By: MANPREET Magdaleno; Reviewed Date: 08/23/2019 6:34 EST codeine Estimated Onset Date: Unspecified ; Created By: LORE JARQUIN RN; Reaction Status: Active ; Category: Drug ; Substance: codeine ; Type: Allergy ; Updated By: LORE JARQUIN RN; Reviewed Date: 08/23/2019 6:34 EST doxycycline Estimated Onset Date: Unspecified ; Reactions: RASH/SOA, RASH/SOA ; Created By: MANPREET Magdaleno; Reaction Status: Active ; Category: Drug ; Substance: doxycycline ; Type: Allergy ; Updated By: MANPREET Magdaleno; Reviewed Date: 08/23/2019 6:34 EST gatifloxacin Estimated Onset Date: Unspecified ; Created By: MANPREET Magdaleno; Reaction Status: Active ; Substance: gatifloxacin ; Updated By: MANPREET Magdaleno; Reviewed Date: 08/23/2019 6:34 EST Keflex Estimated Onset Date: Unspecified ; Created By: Cathi Green RN; Reaction Status: Active ; Category: Drug ; Substance: Keflex ; Type: Allergy ; Updated By: Cathi Green RN; Reviewed Date: 08/23/2019 6:34 EST midazolam Estimated Onset Date: Unspecified ; Created By: MANPREET Magdaleno; Reaction Status: Active ; Category: Drug ; Substance: midazolam ; Type: Allergy ; Updated By: MANPREET Magdaleno; Reviewed Date: 08/23/2019 6:34 EST nitrofurantoin Estimated Onset Date: Unspecified ; Reactions: RASH/SOA, RASH/SOA ; Created By: MANPREET Magdaleno; Reaction Status: Active ; Category: Drug ; Substance: nitrofurantoin ; Type: Allergy ; Updated By: MANPREET Magdaleno; Reviewed Date: 08/23/2019 6:34 EST ondansetron Estimated Onset Date: Unspecified ; Created By: MANPREET Magdaleno; Reaction Status: Active ; Category: Drug ; Substance: ondansetron ; Type: Allergy ; Updated By: Contributor_systemMANPREET; Reviewed Date: 08/23/2019 6:34 EST sulfa drugs Estimated Onset Date: Unspecified ; Created By: Contributor_systemMANPREET; Reaction Status: Active ; Substance: sulfa drugs ; Updated By: Contributor_MANPREET patterson; Reviewed Date: 08/23/2019 6:34 EST Toradol Estimated Onset Date: Unspecified ; Created By: Cathi Green RN; Reaction Status: Active ; Category: Drug ; Substance: Toradol ; Type: Allergy ; Updated By: Cathi Green RN; Reviewed Date: 08/23/2019 6:34 EST Diagnosis Control ED (As Of: 08/23/2019 06:36:34 EST) Problems(Active) Kidney stones (SNOMED CT :233008559 ) Name of Problem: Kidney stones ; Recorder: MANFRED CAI PA; Confirmation: Confirmed ; Classification: Medical ; Code: [id number] ; Contributor System: [employer] ; Last Updated: 10/24/2015 13:26 EST ; Life Cycle Date: 10/24/2015 ; Life Cycle Status: Active ; Responsible Provider: MANFRED CAI PA; Vocabulary: SNOMED CT PTSD (post-traumatic stress disorder) (SNOMED CT :71698235 ) Name of Problem: PTSD (post-traumatic stress disorder) ; Recorder: MANFRED CAI PA; Confirmation: Confirmed ; Classification: Medical ; Code: [id number] ; Contributor System: [employer] ; Last Updated: 10/24/2015 13:26 EST ; Life Cycle Date: 10/24/2015 ; Life Cycle Status: Active ; Responsible Provider: MANFRED CAI PA; Vocabulary: SNOMED CT Diagnoses(Active) Flank pain Date: 08/23/2019 ; Diagnosis Type: Reason For Visit ; Confirmation: Complaint of ; Clinical Dx: Flank pain ; Classification: Medical ; Clinical Service: Emergency medicine ; Code: PNED ; Probability: 0 ; Diagnosis Code: [id number] ED Height and Weight Height Source : Stated Height Entry Format : [place] Height, Feet : 5 ft(Converted to: 152 cm, 60 Inch) Height, Inches : 2 Inch(Converted to: 0 ft 2 Inch, 5.08 cm) Clinical Height : 157.48 cm Weight Source, ED : Critical estimated dosing weight Weight Entry Format : [place] Weight, Pounds : 220 lb Clinical Dosing Weight : 100 kg Body Surface Area (BSA) : 1.99 m2 Body Mass Index : 40.3 kg/m2 (>HHI) [place] Body Weight (IBW) : 49.73 kg Farzaneh Rico RN - 08/23/2019 6:31 EST Pain Assessment Pain Assessment : Initial assessment Pain Scale Used : 0-10 Scale Location : Flank, left Onset : Constant Quality : Aching, Sharp Pain Radiation : No Farzaneh Rico RN - 08/23/2019 6:31 EST Pain Scale Intensity : 9 Farzaneh Rico RN - 08/23/2019 6:31 EST Image 4 - Images currently included in the form version of this document have not been included in the text rendition version of the form. ED Influenza/Pneumoccocal Vaccine Influenza Immunization, Current Season : No Previous Vaccines from Immunization Schedule : No qualifying data available. Farzaneh Rico RN - 08/23/2019 6:31 EST documented in this encounter Plan of Treatment Not on file documented as of this encounter Visit Diagnoses Not on filedocumented in this encounter
--- OUTSIDE RECORDS SUMMARY | 2025-06-07 16:22 | XMS_ITS | Encounter Summary ---
Author Organization [employer] ([place], [place], [place], [place]) Address [address] [place] [address] Care Team Providers Care Pier Master Name Role Phone Unavailable Primary Care Provider Unavailabl e Encounter Details Date Type Department Care Team (Late st Contact Info) Description 08/01/2019 Transcribed Document [facility] [place] Family Medicine [address] [place] [address] ProviderJulio MD [address] [place] [address] 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 Tobacco Use Types Packs/Day Years Used Date Smoking Tobacco: Never Assessed Comments Unknown Sex and Gender Information Value Date Recorded Sex Assigned at Female 03/12/2022 2:43 PM CDT Legal Sex Female 5:44 PM CDT Gender Identity Female 03/12/2022 2:43 PM CDT Sexual Orientation Not on file documented as of this encounter Miscellaneous Notes * Cerner Conversion Note - Historical ProviderMD - 08/01/2019 7:07 AM LACING STRING CUTTER Electronically signed by Eron [facility] Conversion Photograph Editor Cerner at 12/29/2022 4:09 PM CDT documented in this encounter Plan of Treatment Not on file documented as of this encounter Visit Diagnoses Not on filedocumented in this encounter
--- OUTSIDE RECORDS SUMMARY | 2025-06-07 16:22 | XMS_ITS | Encounter Summary ---
Author Organization [employer] ([place], [place], [place], [place]) Address [address] [place] [address] Care Team Providers Care Programming Internship Name Role Phone Unavailable Primary Care Provider Unavailabl e Encounter Details Date Type Department Care Team (Late st Contact Info) Description 08/23/2019 Transcribed Document [facility] [place] [address] [place] [address] ProviderJulio MD [address] [place] [address] 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 Tobacco Use Types Packs/Day Years [...] Conversion Note - Julio ProviderMD - 08/23/2019 12:53 PM HOGSHEAD PACKER ED Discharge Entered On: 08/23/2019 12:56 EST Performed On: 08/23/2019 12:53 EST by JEANIE WILSON napkin machine operator Process Patient Disposition : Discharge Personal Belongings With Patient : Yes Patient Education Completed : Yes Teaching Evaluation : Verbalizes understanding Education Comment : Pt. d/c'd to the lobby to wait for transsport home. IV Discontinued : Not applicable JEANIE WILSON RN - 08/23/2019 12:53 EST ED Discharge Discharge To : Home without planned follow-up Mode Of Departure : Ambulatory Accompanied By : Unaccompanied Discharge Instructions Reviewed With, Opportunity For Questions Given : Patient Prescriptions Given to Patient : Yes Number of Prescriptions Given : 3 WILSON, JEANIE Carrillo RN - 08/23/2019 12:53 EST Electronically signed by Eron [facility] Conversion Lumber Stacker Cerner at 12/29/2022 4:03 PM CDT documented in this encounter Plan of Treatment Not on file documented as of this encounter Visit Diagnoses Not on filedocumented in this encounter
--- OUTSIDE RECORDS SUMMARY | 2025-06-07 16:22 | XMS_ITS | Encounter Summary ---
Author Organization [employer] ([place], [place], [place], [place]) Address [address] [place] [address] Care Team Providers Care Rn Admissions Name Role Phone Unavailable Primary Care Provider Unavailabl e Encounter Details Date Type Department Care Team (Late st Contact Info) Description 08/23/2019 Transcribed Document [facility] [place] [address] [place] [address] ProviderJulio MD [address] [place] [address] 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 Tobacco Use Types Packs/Day Years [...] Conversion Note - Julio Van MD - 08/23/2019 6:40 AM LABELING STRATEGIST Patient: OREN KIM Age: 33 years Sex: Female : 1985 Associated Diagnoses: Renal colic on left side Author: CARLITOS BLOUNT MD-EMR Basic Information Additional information: Chief Complaint from Nursing Triage Note : Chief Complaint 08/23/2019 6:31 EST Chief Complaint Pt states left flank pain for about 4 hours with nausea and vomiting. Denies painful urination and fever. . History of Present Illness 33-year-old female with a history of kidney stones presents with left flank pain ongoing for about 4 hours. Associated with vomiting and nauseousness. Denies any dysuria. She has been able to pass kidney stones in the past but is also had had manipulation as well. Review of Systems Constitutional symptoms: Negative except [...] 1-Time Phenergan: 12.5 mg, IV Push, 1-Time morphine: 4 mg, IV Push, 1-Time Prescriptions Prescribed Pyridium 200 mg oral tablet: 1 Tab, Oral, TID, PRN: as needed for urinary discomfort, 9 Tab, 0 Refill(s) nystatin 100,000 units/g topical powder: 1 Application, Topical, BID, 60 Gram, 0 Refill(s) Documented Medications Documented BuSpar: Oral, [...] Medical/ Family/ 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 Surgical history: Lithotripsy ([id number]).. Family history: No family history items have [...] Physical Examination Vital Signs Vital Signs/Vital Measures 08/23/2019 6:31 EST Blood Pressure Location Arm, left upper Blood Pressure Source Non-Invasive BP Device Systolic Blood Pressure 207 mmHg HI Diastolic Blood Pressure 104 mmHg HI Temperature Source Oral Temperature Mode Fahrenheit Temperature, Fahrenheit 98.1 Deg F Clinical Temperature, C 36.7 Deg C Peripheral Pulse Rate 101 bpm HI Respiratory Rate 20 Breaths/Min Oxygen Saturation 100 % Oxygen Therapy Mode Room air . Measurements 08/23/2019 6:31 EST Height Source Stated Height Entry Format [place] Height/Length, GRENADIAN (ft) 5 ft Height/Length GRENADIAN 2 Inch CLINICALHEIGHT 157.48 cm [place] Body Weight 49.73 kg Weight Source, ED Critical estimated dosing weight Weight Entry Format [place] Weight Mongolian lb 220 lb CLINICALWEIGHT 100 kg Body Surface Area (BSA) 1.99 m2 Body Mass Index 40.3 kg/m2 >HHI . Oxygen Saturation 08/23/2019 6:31 EST Oxygen Saturation 100 % . General: Alert, mild distress. Head: Normocephalic, atraumatic. Eye: Pupils are equal, round and reactive to light, extraocular movements are intact. Cardiovascular: Regular rate and rhythm, No murmur. Respiratory: Lungs are clear to auscultation, respirations are non-labored. Gastrointestinal: Soft, Tenderness: Moderate, left flank, Guarding: Minimal, Rebound: Negative. Musculoskeletal: Normal ROM, normal strength. Neurological: Alert and oriented to person, place, time, and situation, No focal neurological deficit observed. Psychiatric: Cooperative, appropriate mood & affect. Medical Decision Making Differential Diagnosis: Renal stone, urinary tract infection. Documents reviewed: Emergency department nurses' notes. Orders Place New Orders Laboratory: Culture Urine (Order): Specimen Type: Urine, Clean Catch, Stat collect, 08/23/2019 9:48 EST, 1-Time, Stop: 08/23/2019 9:48 EST, Nurse Collect . Radiology results: No Radiology Results Found, Renal ultrasound reveals left hydronephrosis. Notes: [facility] #[id number] reviewed. Last entry is dated 08/02/2019 for oxycodone 5 #12. Reexamination/ Reevaluation Time: 08/23/2019 09:49:00 . Assessment: exam improved, Patient noted to have hygroma left consistent with obstructive stone. We'll place on Percocet 5 #12 with Phenergan 25 #15. We'll also give Flomax. We'll give patient prescription for fosfomycin secondary to multiple allergy listing for antibiotics.. Impression and Plan Diagnosis Renal colic on left side - Discharge, Emergency medicine, Medical Plan Condition: Improved, Stable. Disposition: Patient care transitioned to: Time: 08/23/2019 07:00:00, CARLITOS BLOUNT MD-EMR. Prescriptions: Prescription Conservation Coordinator Pharm[facility]: Monurol 3 g oral powder for reconstitution (Prescribe): See Instructions, One dose as directed dissolve in 4 ounces of water, 1 Each, 0 Refill(s) promethazine 25 mg oral tablet (Prescribe): 1 Tab, Oral, Q6H, PRN: as needed for nausea/vomiting, 15 Tab, 0 Refill(s) Percocet 5/325 oral tablet (Prescribe): 1 Tab, Oral, Q6H, PRN: as needed for pain, 12 Tab, 0 Refill(s) , Prescription [facility]: erythromycin 250 mg oral tablet (Prescribe): 1 Tab, Oral, Q6H, for 7 Day(s), 28 Tab, 0 Refill(s) . Patient was given the following educational materials: Kidney Stones. Follow up with: NICOLE ERNST Within 2 to 3 days; JUANITA THIBODEAUX Within 2 to 3 days. Counseled: Patient. Orders: Launch Orders Pharmacy: Phenergan (Order): 25 mg, Oral, 1-Time Percocet 5/325 oral tablet (Order): 1 Tab, Oral, 1-Time Admit/Transfer/Discharge: Discharge (Order): Start: 08/23/2019 9:55 EST, Discharge to: Home . documented in this encounter Plan of Treatment Not on file documented as of this encounter Visit Diagnoses Not on filedocumented in this encounter
--- OUTSIDE RECORDS SUMMARY | 2025-06-07 16:22 | XMS_ITS | Encounter Summary ---
Author Organization [employer] ([place], [place], [place], [place]) Address [address] [place] [address] Care Team Providers Care Illustrator Set Name Role Phone Unavailable Primary Care Provider Unavailabl e Encounter Details Date Type Department Care Team (Late st Contact Info) Description 08/31/2019 Transcribed Document [facility] [facility] [place] [address] [place] [address] ProviderJulio MD [address] [place] [address] 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 Tobacco Use Types Packs/Day Years [...] Julio Van MD - 08/31/2019 4:04 PM DRUM REEL CUTTER ED Triage Entered On: 08/31/2019 16:13 EST Performed On: 08/31/2019 16:10 EST by Ava Bains, BARREL CENTERER Triage Across the Room Chief Complaint : pt states she was seen here last Wednesday dx with a kidney stones. PT is still have L lower back pain. Triage Date/Time : 08/31/2019 16:10 EST Ava Bains RN - 08/31/2019 16:10 EST DCP GENERIC CODE Tracking Acuity : 3 - Urgent Tracking Group : [facility] ED Ava De Luna RN - 08/31/2019 16:10 EST Mode of Arrival : Ambulatory Transported to ED by : Private vehicle To Room Via : Ambulate Accompanied By : Friend ED Vital Signs : Document Height & Weight : Document ED Allergies : Document ED Reason for Visit : Document Tetanus Immunization : Less than 5 years Ava Bains RN - 08/31/2019 16:10 EST Infectious Disease History Infectious Disease History : Chicken pox/Shingles, Influenza Fever/Chills Last 48 Hours : No Travel To Regions with Travel Advisories : No Travel Outside [place] Within Last 30 Days : No Contact With Traveler to Advisory Region : No Tuberculosis Symptoms : None Ava Bains RN - 08/31/2019 16:10 EST Vital Signs ED Temperature Source : Oral Temperature Mode : Fahrenheit Temperature, Fahrenheit : 98.1 Deg F Clinical Temperature, C : 36.7 Deg C Oxygen Therapy Mode : Room air Peripheral Pulse Rate : 114 bpm (HI) Respiratory Rate : 20 Breaths/Min Systolic Blood Pressure : 179 mmHg (HI) Diastolic Blood Pressure : 104 mmHg (HI) Oxygen Saturation : 96 % Ava Bains RN - 08/31/2019 16:10 EST Allergy (As Of: 08/31/2019 16:13:16 EST) Allergies (Active) most abx Estimated Onset Date: Unspecified ; Created By: MANPREET SALAS; Reaction Status: Active ; Category: Drug ; Substance: most abx ; Type: Allergy ; Updated By: MANPREET SALAS; Reviewed Date: 08/31/2019 16:13 EST amoxicillin-clavulanate Estimated Onset Date: Unspecified ; Reactions: SOA, SOA ; Created By: MANPREET SALAS; Reaction Status: Active ; Category: Drug ; Substance: amoxicillin-clavulanate ; Type: Allergy ; Updated By: MANPREET SALAS; Reviewed Date: 08/31/2019 16:13 EST cefaclor Estimated Onset Date: Unspecified ; Created By: MANPREET SALAS; Reaction Status: Active ; Substance: cefaclor ; Updated By: MANPREET SALAS; Reviewed Date: 08/31/2019 16:13 EST ciprofloxacin Estimated Onset Date: Unspecified ; Reactions: HIVES, HIVES ; Created By: MANPREET SALAS; Reaction Status: Active ; Substance: ciprofloxacin ; Updated By: MANPREET SALAS; Reviewed Date: 08/31/2019 16:13 EST codeine Estimated Onset Date: Unspecified ; Created By: LORE JARQUIN RN; Reaction Status: Active ; Category: Drug ; Substance: codeine ; Type: Allergy ; Updated By: LORE JARQUIN RN; Reviewed Date: 08/31/2019 16:13 EST doxycycline Estimated Onset Date: Unspecified ; Reactions: RASH/SOA, RASH/SOA ; Created By: MANPREET SALAS; Reaction Status: Active ; Category: Drug ; Substance: doxycycline ; Type: Allergy ; Updated By: MANPREET SALAS; Reviewed Date: 08/31/2019 16:13 EST gatifloxacin Estimated Onset Date: Unspecified ; Created By: MANPREET SALAS; Reaction Status: Active ; Substance: gatifloxacin ; Updated By: MANPREET SALAS; Reviewed Date: 08/31/2019 16:13 EST Keflex Estimated Onset Date: Unspecified ; Created By: Cathi Green RN; Reaction Status: Active ; Category: Drug ; Substance: Keflex ; Type: Allergy ; Updated By: Cathi Green RN; Reviewed Date: 08/31/2019 16:13 EST midazolam Estimated Onset Date: Unspecified ; Created By: MANPREET SALAS; Reaction Status: Active ; Category: Drug ; Substance: midazolam ; Type: Allergy ; Updated By: MANPREET SALAS; Reviewed Date: 08/31/2019 16:13 EST nitrofurantoin Estimated Onset Date: Unspecified ; Reactions: RASH/SOA, RASH/SOA ; Created By: MANPREET SALAS; Reaction Status: Active ; Category: Drug ; Substance: nitrofurantoin ; Type: Allergy ; Updated By: MANPREET SALAS; Reviewed Date: 08/31/2019 16:13 EST ondansetron Estimated Onset Date: Unspecified ; Created By: MANPREET SALAS; Reaction Status: Active ; Category: Drug ; Substance: ondansetron ; Type: Allergy ; Updated By: MANPREET SALAS; Reviewed Date: 08/31/2019 16:13 EST sulfa drugs Estimated Onset Date: Unspecified ; Created By: CONTRIBUTOR_SYSTEMCLARE_ZACK; Reaction Status: Active ; Substance: sulfa drugs ; Updated By: CONTRIBUTOR_SYSTEMMANPREET; Reviewed Date: 08/31/2019 16:13 EST Toradol Estimated Onset Date: Unspecified ; Created By: Cathi Green RN; Reaction Status: Active ; Category: Drug ; Substance: Toradol ; Type: Allergy ; Updated By: Cathi Green RN; Reviewed Date: 08/31/2019 16:13 EST Diagnosis Control ED (As Of: 08/31/2019 16:13:16 EST) Problems(Active) Kidney stones (SNOMED CT :402776603 ) Name of Problem: Kidney stones ; Recorder: MANFRED CAI PA; Confirmation: Confirmed ; Classification: Medical ; Code: [id number] ; Contributor System: iVideosongs ; Last Updated: 10/24/2015 13:26 EST ; Life Cycle Date: 10/24/2015 ; Life Cycle Status: Active ; Responsible Provider: MANFRED CAI PA; Vocabulary: SNOMED CT PTSD (post-traumatic stress disorder) (SNOMED CT :41086286 ) Name of Problem: PTSD (post-traumatic stress disorder) ; Recorder: MANFRED CAI PA; Confirmation: Confirmed ; Classification: Medical ; Code: [id number] ; Contributor System: iVideosongs ; Last Updated: 10/24/2015 13:26 EST ; Life Cycle Date: 10/24/2015 ; Life Cycle Status: Active ; Responsible Provider: MANFRED CAI PA; Vocabulary: SNOMED CT Diagnoses(Active) Back pain Date: 08/31/2019 ; Diagnosis Type: Reason For Visit ; Confirmation: Complaint of ; Clinical Dx: Back pain ; Classification: Medical ; Clinical Service: Non-Specified ; Code: PNED ; Probability: 0 ; Diagnosis Code: [id number] ED Height and Weight Height Source : Estimated Height Entry Format : [place] Height, Feet : 5 ft(Converted to: 152 cm, 60 Inch) Height, Inches : 2 Inch(Converted to: 0 ft 2 Inch, 5.08 cm) Clinical Height : 157.48 cm Weight Source, ED : Critical estimated dosing weight Weight Entry Format : [place] Weight, Pounds : 220 lb Clinical Dosing Weight : 100 kg Body Surface Area (BSA) : 1.99 m2 Body Mass Index : 40.3 kg/m2 (>HHI) [place] Body Weight (IBW) : 49.73 kg Ava Bains RN - 08/31/2019 16:10 EST Electronically signed by Eron, [facility] Conversion Engagement Manager Cerner at 12/29/2022 4:09 PM CDT documented in this encounter Plan of Treatment Not on file documented as of this encounter Visit Diagnoses Not on filedocumented in this encounter
--- OUTSIDE RECORDS SUMMARY | 2025-06-07 16:22 | XMS_ITS | Encounter Summary ---
Author Hub Preferred Language Arabic Marital Status Single Hindu Affiliation Unknown Race White Ethnic Group Not or Lati no Author Organization [employer] ([place], [place], [place], [place]) Address [address] [place] [address] Care Team Providers Care Densitometer Reader Name Role Phone Unavailable Primary Care Provider Unavailabl e Encounter Details Date Type Department Care Team (Late st Contact Info) Description 08/23/2019 Transcribed Document [facility] [place] [address] [place] [address] ProviderJulio MD [address] [place] [address] 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 Tobacco Use Types [...] Note - Julio Van MD - 08/23/2019 9:55 AM BSS SOLUTION ARCHITECT J [facility] [address] [place] [address] OREN KIM :1985 Visit Time:08/23/2019 Your Visit Summary Your Care Team Primary Provider: CODIE RUIZ Secondary Provider: Your Diagnosis Flank pain Renal colic on left side Medical Information You may obtain a copy [...] THIBODEAUX When Within 2 to 3 days Where: [address] [place] [address] [facility] (1) Follow Up with NICOLE ERNST When Within 2 to 3 days Where: [address] [address] [facility] (1) Allergies most abx Keflex Toradol amoxicillin-clavulanate (SOA, SOA) cefaclor ciprofloxacin (HIVES, HIVES) codeine doxycycline (RASH/SOA, RASH/SOA) gatifloxacin midazolam nitrofurantoin (RASH/SOA, RASH/SOA) ondansetron sulfa drugs Immunizations This Visit No Immunizations Found Medications What How Much When Instructions Next Dose New acetaminophen-oxyCODONE (Percocet 5/ 325 oral tablet) 1 Tablet(s) Oral Every 6 Hours as needed for as needed for pain Printed Prescription New fosfomycin (Monurol 3 g oral powder for reconstitution) See instructions One dose as directed dissolve in 4 ounces of water Printed Prescription New promethazine (promethazine 25 mg [...] This Visit (last charted value for your 08/23/2019 visit) Urinalysis 08/23/2019 7:20 AM Ur RBC: 10-20 /HPF Urine Nitrite: Negative Urine Leukocyte Esterase: Negative Ur Epithelial Cells: 10-20 /HPF Urine Appearance: Hazy Urine Glucose Dipstick: Negative Urine Blood Dipstick: Moderate Urine Type: U CleanCatch Urine Urobilinogen Dipstick: 0.2 EU/dL Urine Protein Dipstick: Trace Ur Bacteria: 3+ Urine Color: Yellow Ur WBC: 10-20 /HPF Urine Ketones Dipstick: Negative Urine pH Dipstick: 5.5 -- Normal range between ( 6.0 and 8.0 ) Urine Bilirubin Dipstick: Negative Urine Specific [place]: 1.025 -- Normal range between ( 1.005 [...] kidney stones in the future. ??? Take [id number] and prescription medicines only as told by [...] 08/30/2006 Document Revised: 02/10/2018 Document Reviewed: 02/12/2017 [employer] Patient Education ?? 2019 [employer]. Emergency Awareness and Preventative Care STROKE is [...] Assistance with quitting is available by contacting 8-679-YOIYParatekNOW. This is a free resource providing counseling, support, and referral. Or you may contact your personal physician. [employer] Suicide Prevention Lifeline: The National Suicide Prevention [...] was given the opportunity to ask questions. Patient/Academic Records Specialist Name: Patient/Academic Records Specialist Signature: Relationship to Patient: Clinician/Hospital Academic Records Specialist Signature: Please Provide a Telephone Number Where You Can Be Reached: Is it Permissible To Leave a Message? Date: Electronically signed by Eron [facility] Conversion Retail Custodial Associate Vijay at 12/29/2022 4:02 PM CDT documented in this encounter Plan of Treatment Not on file documented as of this encounter Visit Diagnoses Not on filedocumented in this encounter
--- OUTSIDE RECORDS SUMMARY | 2025-06-07 16:22 | XMS_ITS | Encounter Summary ---
Author Organization [employer] ([place], [place], [place], [place]) Address [address] [place] [address] Care Team Providers Care Video Effects Editor Name Role Phone Unavailable Primary Care Provider Unavailabl e Encounter Details Date Type Department Care Team (Late st Contact Info) Description 05/21/2020 Transcribed Document [facility] [place] [address] [place] [address] ProviderJulio MD [address] [place] [address] 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 Tobacco Use Types Packs/Day Years Used Date Smoking Tobacco: Never Assessed Comments Unknown Sex and Gender Information Value Date Recorded Sex Assigned at Female 03/12/2022 2:43 PM CDT Legal Sex Female 5:44 PM CDT Gender Identity Female 03/12/2022 2:43 PM CDT Sexual Orientation Not on file documented as of this encounter Miscellaneous Notes * Cerner Conversion Note - Historical ProviderMD - 05/21/2020 2:11 PM CDT Urine Culture Collected: 05/18/2020 21:38 Complete Body site: Specimen Type: U CleanCatch 05/21/2020 10:45 05/21/2020 14:11 (CATIA BARFIELD PA) Reviewed by Provider, No further action required documented in this encounter Plan of Treatment Not on file documented as of this encounter Visit Diagnoses Not on filedocumented in this encounter
--- OUTSIDE RECORDS SUMMARY | 2025-06-07 16:22 | XMS_ITS | Encounter Summary ---
Author Organization [employer] ([place], [place], [place], [place]) Address [address] [place] [address] Care Team Providers Care Nuclear Auxiliary Operator Name Role Phone Unavailable Primary Care Provider Unavailabl e Encounter Details Date Type Department Care Team (Late st Contact Info) Description 08/01/2019 Transcribed [facility] [place] [address] [place] [address] ProviderJulio MD [address] [place] [address] 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 Tobacco Use Types Packs/Day Years [...] Note - Julio Van MD - 08/01/2019 9:33 AM [facility] ED Discharge Entered On: 08/01/2019 9:34 EST Performed On: 08/01/2019 9:33 EST by ANN DANIEL RN Discharge Process Patient Disposition : Discharge Personal Belongings With Patient : Yes Patient Education Completed : Yes Teaching Evaluation : Verbalizes understanding IV Discontinued : Not applicable Nursing Documentation Completed : Yes ANN DANIEL RN - 08/01/2019 9:33 EST ED Discharge Discharge To : Home with ambulatory/outpatient follow-up Mode Of Departure : Ambulatory Accompanied By : Unaccompanied Discharge Instructions Reviewed With, Opportunity For Questions Given : Patient Prescriptions Given to Patient : Yes Number of Prescriptions Given : 2 ANN DANIEL RN - 08/01/2019 9:33 EST Electronically signed by Eron, [facility] Conversion Catalog Specialist Cerner at 12/29/2022 4:04 PM CDT documented in this encounter Plan of Treatment Not on file documented as of this encounter Visit Diagnoses Not on filedocumented in this encounter
--- OUTSIDE RECORDS SUMMARY | 2025-06-07 16:22 | XMS_ITS | Encounter Summary ---
Author Organization [employer] ([place], [place], [place], [place]) Address [address] [place] [address] Care Team Providers Care Perfect Binder Setter Name Role Phone Unavailable Primary Care Provider Unavailabl e Encounter Details Date Type Department Care Team (Late st Contact Info) Description 08/23/2019 Transcribed Document [facility] [place] [address] [place] [address] ProviderJulio MD [address] [place] [address] 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 Tobacco Use Types Packs/Day Years Used Date Smoking Tobacco: Never Assessed Comments Unknown Sex and Gender Information Value Date Recorded Sex Assigned at Female 03/12/2022 2:43 PM CDT Legal Sex Female 5:44 PM CDT Gender Identity Female 03/12/2022 2:43 PM CDT Sexual Orientation Not on file documented as of this encounter Miscellaneous Notes * Cerner Conversion Note - Historical ProviderMD - 08/23/2019 9:54 AM RESEARCH CONSULTANT Electronically signed by [facility] Conversion Clinical Research Spec Cerner at 12/29/2022 4:10 PM CDT documented in this encounter Plan of Treatment Not on file documented as of this encounter Visit Diagnoses Not on filedocumented in this encounter
--- OUTSIDE RECORDS SUMMARY | 2025-06-07 16:23 | XMS_ITS | Encounter Summary ---
Author Organization [employer] ([place], [place], [place], [place]) Address [address] [place] [address] Care Team Providers Care Piling Setter Name Role Phone Unavailable Primary Care Provider Unavailabl e Encounter Details Date Type Department Care Team (Late st Contact Info) Description 06/24/2020 Transcribed Document [facility] [place] [address] [place] [address] ProviderJulio MD [address] [place] [address] 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 Tobacco Use Types Packs/Day Years [...] Conversion Note - Julio Van MD - 06/24/2020 3:49 PM CDT [place] Suicide Severity Rating Scale (C-SSRS) Entered On: 06/24/2020 16:04 EDT Performed On: 06/24/2020 15:59 EDT by DIDI DEL CID RN [place] Suicide Severity Rating Scale (C-SSRS) CSSRS Past Month Wish to be : No CSSRS Past Month Suicidal Thoughts : No CSSRS Lifetime Suicide Behavior : No Suicide Severity Rating Score : 0 Suicide Severity Rating : No Additional Care Required at this time DIDI DEL CID RN - 06/24/2020 15:59 EDT documented in this encounter Plan of Treatment Not on file documented as of this encounter Visit Diagnoses Not on filedocumented in this encounter
--- OUTSIDE RECORDS SUMMARY | 2025-06-07 16:23 | XMS_ITS | Encounter Summary ---
Author Organization [employer] ([place], [place], [place], [place]) Address [address] [place] [address] Care Team Providers Care Welder Shielded Metal Arc Name Role Phone Unavailable Primary Care Provider Unavailabl e Encounter Details Date Type Department Care Team (Late st Contact Info) Description 06/24/2020 Transcribed Document [facility] [place] Family Medicine [address] [place] [address] ProviderJulio MD [address] [place] [address] 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 Tobacco Use Types Packs/Day Years Used Date Smoking Tobacco: Never Assessed Comments Unknown Sex and Gender Information Value Date Recorded Sex Assigned at Female 03/12/2022 2:43 PM CDT Legal Sex Female 5:44 PM CDT Gender Identity Female 03/12/2022 2:43 PM CDT Sexual Orientation Not on file documented as of this encounter Miscellaneous Notes * Cerner Conversion Note - Julio ProviderMD - 06/24/2020 3:49 PM CDT ED Assessment Entered On: 06/24/2020 16:03 EDT Performed On: 06/24/2020 15:59 EDT by DIDI DEL CID, EXHIBITS CURATOR Quick Look Assessment Level of Consciousness : Alert, Awake Affect/Behavior : Appropriate, Calm Orientation : Oriented x 4 Skin Temperature : Warm Skin Description : Dry, [place] DIDI DEL CID, RN - 06/24/2020 15:59 EDT ED General-Functional Assess Preferred Communication Mode : Verbal Communication Barrier : None Primary Language : Nauruan Any Spiritual/Cultural Needs or Requests : No Currently in Unsafe Situation : No PENDYGRAFT, DIDI M, RN - 06/24/2020 15:59 EDT Social Habits Smoking Status : Never (less than 100 in lifetime; none in last 30 days) Smokeless Tobacco Status : Smokeless tobacco user within last 30 days Desires Tobacco Cessation Medication : No Reason for No Tobacco Cessation Medication : ED/procedural patient only Desires Tobacco Cessation Calc : 1 DIDI DEL CID RN - 06/24/2020 15:59 EDT 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 (As Of: 06/24/2020 16:03:50 EDT) Tobacco: Use in Last 12 Months: Snuff/Dip. Packs/Tins Daily: 0.5. (Last Updated: 02/24/2015 00:10:45 EDT by GURINDER ABARCA, RN) Alcohol: Alcohol Use History No. (Last Updated: 02/24/2015 00:10:54 EDT by GURINDER ABARCA, RN) Substance Abuse: Use in Last 12 Months: No. (Last Updated: 02/24/2015 00:11:03 EDT by GURINDER ABARCA, RN) Genitourinary Assessment, ED Genitourinary Symptoms : Other: right flank pain DIDI DEL CID RN - 06/24/2020 15:59 EDT Electronically signed by Rachel Littlejohn Conversion Mems Integration Engineer Cerner at 12/29/2022 4:08 PM CDT documented in this encounter Plan of Treatment Not on file documented as of this encounter Visit Diagnoses Not on filedocumented in this encounter
--- OUTSIDE RECORDS SUMMARY | 2025-06-07 16:23 | XMS_ITS | Encounter Summary ---
Author Organization [employer] ([place], [place], [place], [place]) Address [address] [place] [address] Care Team Providers Care Polish Maker Name Role Phone Unavailable Primary Care Provider Unavailabl e Encounter Details Date Type Department Care Team (Late st Contact Info) Description 08/23/2019 Transcribed Document [facility] [place] Family Medicine [address] [place] [address] ProviderJulio MD [address] [place] [address] 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 Tobacco Use Types Packs/Day Years [...] Conversion Note - Julio ProviderMD - 08/23/2019 12:57 PM COMBAT SYSTEMS OFFICER [facility] [address] [place] [address] PERSON INFORMATION Name OREN KIM Age 33 Years 1985 Sex Female Language Prydeinig PCP NICOLE ERNST APRN-PRESLEY Marital Status Single Med Service Emergency Medicine Acct# Arrival 08/23/2019 06:26:00 Visit Reason Flank pain; PT STATES ABD PAIN, HX OF KIDNEY STONES Acuity 3 - Urgent LOS 000 06:30 Depart Date: 08/23/19 12:23 PM Address: [address] [place] [id number] Comment: PROVIDER INFORMATION Provider Role Assigned Unassigned CODIE RUIZ MD-EMR ED Physician 08/23/2019 06:36:43 Farzaneh Rico, RAW CHEESE WORKER Nurse 08/23/2019 06:37:29 DIAGNOSIS Renal colic on left side PHYS DOC NOTES VITALS INFORMATION Vital Sign Triage Latest Temp Source Oral Oral Temp Mode Fahrenheit Fahrenheit Temp Fahrenheit 98.1 Deg F 98.1 Deg F Temp Celsius 02 Sat 100 % 100 % Respiratory Rate 20 Breaths/Min 20 Breaths/Min Peripheral Pulse Rate 101 bpm 101 bpm Apical Heart Rate Blood Pressure 207 mmHg / 104 mmHg 207 mmHg / 104 mmHg Comment: MEDICAL INFORMATION Allergy Info: Toradol; Keflex; sulfa drugs; gatifloxacin; ondansetron; midazolam; nitrofurantoin; amoxicillin-clavulanate; cefaclor; doxycycline; codeine; ciprofloxacin; most abx Medications: Comment: DISCHARGE INFORMATION Discharge Disposition: Home Discharge Location: PATIENT EDUCATION INFORMATION Instructions: Kidney Stones Follow up: With: Address: When: JUANITA THIBODEAUX [address] [place] [address] Business (1) Within 2 to 3 days With: Address: When: NICOLE ERNST [address] [facility] [address] [place] [id number] [facility] (1) Within 2 to 3 days Comment: documented in this encounter Plan of Treatment Not on file documented as of this encounter Visit Diagnoses Not on filedocumented in this encounter
--- OUTSIDE RECORDS SUMMARY | 2025-06-07 16:23 | XMS_ITS | Encounter Summary ---
Author Organization [employer] ([place], [place], [place], [place]) Address [address] [place] [address] Care Team Providers Care Travel Registered Nurse Icu Name Role Phone Unavailable Primary Care Provider Unavailabl e Encounter Details Date Type Department Care Team (Late st Contact Info) Description 06/29/2020 Transcribed Document [facility] [place] Medicine [address] [place] [address] ProviderJulio MD [address] [place] [address] 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 Tobacco Use Types Packs/Day Years Used Date Smoking Tobacco: Never Assessed Comments Unknown Sex and Gender Information Value Date Recorded Sex Assigned at Female 03/12/2022 2:43 PM CDT Legal Sex Female 5:44 PM CDT Gender Identity Female 03/12/2022 2:43 PM CDT Sexual Orientation Not on file documented as of this encounter Miscellaneous Notes * Cerner Conversion Note - Historical ProviderMD - 06/29/2020 8:12 PM CDT documented in this encounter Plan of Treatment Not on file documented as of this encounter Visit Diagnoses Not on filedocumented in this encounter
--- OUTSIDE RECORDS SUMMARY | 2025-06-07 16:23 | XMS_ITS | Encounter Summary ---
Author Organization [employer] ([place], [place], [place], [place]) Address [address] [place] [address] Care Team Providers Care Box Icer Name Role Phone Unavailable Primary Care Provider Unavailabl e Encounter Details Date Type Department Care Team (Late st Contact Info) Description 08/31/2019 Transcribed Document [facility] [place] [address] [place] [address] ProviderJulio MD [address] [place] [address] 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 Tobacco Use Types Packs/Day Years [...] Note - Julio Van MD - 08/31/2019 4:42 PM [facility] CODERS Patient: OREN KIM Age: 33 years Sex: Female : 1985 Associated Diagnoses: UTI symptoms Author: SANAM BANG MD-EMR Basic Information Additional information: Chief Complaint from Nursing Triage Note : Chief Complaint 08/31/2019 16:10 EST Chief Complaint pt states she was seen here last Wednesday dx with a kidney stones. PT is still have L lower back pain. . History of Present Illness The patient presents with dysuria, incontinence, hesitancy, frequency and urgency. The onset was 2 days ago. The course/duration of symptoms is constant. Radiating pain: back. The character of symptoms is burning. The degree at onset was moderate. The degree at present is moderate. The exacerbating factor is none. The relieving factor is none. Risk factors consist of renal stones. Therapy today: none. Associated symptoms: fever, chills, nausea and vomiting. Review of Systems Constitutional symptoms: Negative except [...] were documented. Toradol- No reactions were documented.. Past Medical/ Family/ 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 Surgical history: Lithotripsy ([id number]).. Family history: No family history items have been selected or recorded.. Social history: Social & Psychosocial Habits Alcohol 02/24/2015 Alcohol Use History, Social Habits No Substance Abuse 02/24/2015 Recreational Drug Use Last 12 Months No Tobacco 02/24/2015 Tobacco Use Within Last Twelve Months Snuff/Dip Packs/Tins Daily 0.5 . Physical Examination Vital Signs Vital Signs/Vital Measures 08/31/2019 16:10 EST Systolic Blood Pressure 179 mmHg HI Diastolic Blood Pressure 104 mmHg HI Temperature Source Oral Temperature Mode Fahrenheit Temperature, Fahrenheit 98.1 Deg F Clinical Temperature, C 36.7 Deg C Peripheral Pulse Rate 114 bpm HI Respiratory Rate 20 Breaths/Min Oxygen Saturation 96 % Oxygen Therapy Mode Room air . Measurements 08/31/2019 16:10 EST Height Source Estimated Height Entry Format [place] Height/Length, YEMENI (ft) 5 ft Height/Length YEMENI 2 Inch CLINICALHEIGHT 157.48 cm [place] Body Weight 49.73 kg Weight Source, ED Critical estimated dosing weight Weight Entry Format [place] Weight Greek lb 220 lb CLINICALWEIGHT 100 kg Body Surface Area (BSA) 1.99 m2 Body Mass Index 40.3 kg/m2 >HHI . Oxygen Saturation 08/31/2019 16:10 EST Oxygen Saturation 96 % . General: Alert, no acute distress. Skin: Warm, dry, pink. Head: Normocephalic, atraumatic. Neck: Supple. Eye: Pupils are equal, round and reactive to light, extraocular movements are intact, normal conjunctiva. Cardiovascular: Regular rate and rhythm, No murmur. Respiratory: Lungs are clear to auscultation, respirations are non-labored, breath sounds are equal, Symmetrical chest wall expansion. Gastrointestinal: Soft, Nontender, Non distended, Normal bowel sounds, No organomegaly. Back: Nontender. Musculoskeletal: Normal ROM. Neurological: Alert and oriented to person, place, time, and situation, No focal neurological deficit observed, CN II-XII intact, normal sensory observed, normal motor observed, normal speech observed, normal coordination observed. Lymphatics: No lymphadenopathy. Psychiatric: Cooperative. Medical Decision Making Differential Diagnosis: Urinary tract infection, cystitis, pyelonephritis, nephrolithiasis. Documents reviewed: Emergency department nurses' notes, prior records. Results review: All Results 08/31/2019 16:10 EST ED Nursing Record 08/31/2019 16:05 EST Consent Forms Consent Forms 08/31/2019 16:30 EST Nurse Collect Order Detail 3.00 08/31/2019 16:29 EST Nurse Collect Order Detail 3.00 08/31/2019 16:29 EST Nurse Collect Order Detail 3.00 08/31/2019 16:28 EST Nurse Collect Order Detail 3.00 08/31/2019 16:19 EST Urine Type. U CleanCatch Urine Color Yellow Urine Appearance Hazy Urine Specific [place] 1.020 Urine pH Dipstick 7.0 Urine Leukocyte Esterase Moderate Urine Nitrite Negative Urine Protein Dipstick Negative Urine Glucose Dipstick Negative Urine Ketones Dipstick Negative Urine Urobilinogen Dipstick 0.2 EU/dL Urine Bilirubin Dipstick Negative Urine Blood Dipstick Trace - Intact Ur RBC 5-10 /HPF Ur WBC 20-50 /HPF Ur Bacteria 2+ Ur Epithelial Cells 20-50 /HPF 08/31/2019 16:13 EST Estimated Creatinine Clearance 70.32 mL/Min 08/31/2019 16:10 EST Systolic Blood Pressure 179 mmHg HI Diastolic Blood Pressure 104 mmHg HI Temperature Source Oral Temperature Mode Fahrenheit Temperature, Fahrenheit 98.1 Deg F Clinical Temperature, C 36.7 Deg C Peripheral Pulse Rate 114 bpm HI Respiratory Rate 20 Breaths/Min Oxygen Saturation 96 % Oxygen Therapy Mode Room air Height Source Estimated Height Entry Format [place] Height/Length, YEMENI (ft) 5 ft Height/Length YEMENI 2 Inch CLINICALHEIGHT 157.48 cm [place] Body Weight 49.73 kg Weight Source, ED Critical estimated dosing weight Weight Entry Format [place] Weight Greek lb 220 lb CLINICALWEIGHT 100 kg Body Surface Area (BSA) 1.99 m2 Body Mass Index 40.3 kg/m2 >HHI Tuberculosis Symptoms None Infectious Disease History Chicken pox/Shingles, Influenza Fever/Chills Last 48 Hours No Travel To Regions with Travel Advisories No Travel Outside [place] Within Last 30 Days No Contact With Traveler to Advisory Region No Chief Complaint pt states she was seen here last Wednesday dx with a kidney stones. PT is still have L lower back pain. Transported to ED by Private vehicle To Room Via Ambulate Tracking Acuity 3 - Urgent Accompanied by Friend Mode of Arrival Ambulatory Tetanus Immunization Less than 5 years 08/31/2019 16:04 EST Nurse Collect Order Detail 3.00 Nurse Collect Order Detail 3.00 . Impression and Plan Diagnosis UTI symptoms - Discharge, Emergency medicine, Medical Plan Condition: Stable, Guarded. Disposition: Discharged Admit/Transfer/Discharge: Discharge (Order): Start: 08/31/2019 16:44 EST, Discharge to: Home. Prescriptions: Prescription [facility]: promethazine 25 mg oral tablet (Prescribe): 1 Tab, Oral, Q6H, for 5 Day(s), 20 Tab, 0 Refill(s) Dilaudid 2 mg oral tablet (Prescribe): 1 Tab, Oral, Q4H, for 2 Day(s), PRN: as needed for pain, 10 Tab, 0 Refill(s) Cipro 500 mg oral tablet (Prescribe): 1 Tab, Oral, Q12H, for 10 Day(s), 20 Tab, 0 Refill(s). Patient was given the following educational materials: Renal Colic, Urinary Tract Infection, Adult. Limitations: Limited activity. Follow up with: NICOLE ERNST Within 2 to 3 days. Counseled: Patient, Regarding diagnosis, Regarding diagnostic results, Regarding treatment plan, Regarding prescription, Patient indicated understanding of instructions. Notes: Patient does not appear toxic. We have Cipro listed as allergy, but she insists thats the only thing she can take. documented in this encounter Plan of Treatment Not on file documented as of this encounter Visit Diagnoses Not on filedocumented in this encounter
--- OUTSIDE RECORDS SUMMARY | 2025-06-07 16:23 | XMS_ITS | Encounter Summary ---
Author Organization [employer] ([place], [place], [place], [place]) Address [address] [place] [address] Care Team Providers Care Hand Clipper Name Role Phone Unavailable Primary Care Provider Unavailabl e Encounter Details Date Type Department Care Team (Late st Contact Info) Description 06/24/2020 Transcribed Document [facility] [place] [address] [place] [address] ProviderJulio MD [address] [place] [address] 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 Tobacco Use Types [...] Note - Julio Van MD - 06/24/2020 5:34 PM CDT [facility] [address] [place] [address] OREN KIM :1985 Visit Time:06/24/2020 Your Visit Summary Your Care Team Primary Provider: FRANKIE BANG Secondary Provider: Your Diagnosis Flank pain Right ureteral stone Medical Information You may obtain [...] 3 days Where: [address] [facility] [address] [address] [facility] (1) Allergies most abx Keflex Toradol amoxicillin-clavulanate (SOA, SOA) cefaclor ciprofloxacin (HIVES, HIVES) codeine doxycycline (RASH/SOA, RASH/SOA) gatifloxacin midazolam nitrofurantoin (RASH/SOA, RASH/SOA) ondansetron sulfa drugs Immunizations This Visit No Immunizations Found Medications What How Much When Instructions Next Dose HYDROmorphone (Dilaudid 2 mg oral tablet) 1 Tablet(s) Oral Every 4 Hours as needed for as needed for pain Duration: 3 Day(s) Printed Prescription promethazine (promethazine 25 mg oral tablet) 1 Tablet(s) Oral Every 4 Hours as needed for as needed for nausea/vomiting Duration: 5 Day(s) promethazine (promethazine 25 mg oral tablet) 1 Tablet(s) Oral Every 6 Hours Duration: 5 Day(s) Printed Prescription albuterol (albuterol HFA 90 [...] This Visit (last charted value for your 06/24/2020 visit) Urinalysis 06/24/2020 4:37 PM Ur RBC: 20-50 /HPF Urine Nitrite: Negative Urine Leukocyte Esterase: Negative Urine Appearance: Cloudy Urine Glucose Dipstick: Negative Urine Blood Dipstick: Large Urine Urobilinogen Dipstick: 0.2 EU/dL Ur Calcium Oxalate Crystals: 2+ Urine Protein Dipstick: 100 Ur Bacteria: 3+ Ur Squamous Epithelial Cells: 20-50 /HPF Urine Color: Yellow Ur WBC: 5-10 /HPF Urine Ketones Dipstick: Negative Urine pH Dipstick: 6.0 -- Normal range between ( 6.0 and 8.0 ) Urine Bilirubin Dipstick: Negative Urine Specific [place]: 1.025 -- Normal range between ( 1.005 and 1.030 ) Urine Type.: U CleanCatch Computed Tomography 06/24/2020 4:[address] Abdomen Pelvis WO: CT Abdomen Pelvis WO Education Materials Kidney Stones Kidney stones (urolithiasis) [...] kidney stones in the future. ??? Take [id number] and prescription medicines only as told by [...] care provider. Document Released: 08/30/2006 Document Revised: 04/11/2019 Document Reviewed: 02/12/2017 Elsevier Patient Education ?? 2020 [employer]. Emergency Awareness and Preventative Care STROKE is [...] Assistance with quitting is available by contacting 3-746-PPZT-NOW. This is a free resource providing counseling, [...] radiology, or pathology physicians. Patient Name:APOLONIA OREN Eliz I have received this information and was given the opportunity to ask questions. Patient/Scow Derrick Operator Name: Patient/Scow Derrick Operator Signature: Relationship to Patient: Clinician/Hospital Scow Derrick Operator Signature: Please Provide a Telephone Number Where You Can Be Reached: Is it Permissible To Leave a Message? Date: documented in this encounter Plan of Treatment Not on file documented as of this encounter Visit Diagnoses Not on filedocumented in this encounter
--- OUTSIDE RECORDS SUMMARY | 2025-06-07 16:23 | XMS_ITS | Encounter Summary ---
Author Organization [employer] ([place], [place], [place], [place]) Address [address] [place] [address] Care Team Providers Care Auto Transmission Mechanic Name Role Phone Unavailable Primary Care Provider Unavailabl e Encounter Details Date Type Department Care Team (Late st Contact Info) Description 06/29/2020 Transcribed Document [facility] [place] Family Medicine [address] [place] [address] ProviderJulio MD [address] [place] [address] 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 Tobacco Use Types Packs/Day Years [...] Conversion Note - Julio Van MD - 06/29/2020 5:57 PM CDT ED Assessment Entered On: 06/29/2020 18:10 EDT Performed On: 06/29/2020 18:10 EDT by Ava Bains Rn ED Quick Look Assessment Level of Consciousness : Alert, Awake Affect/Behavior : Appropriate, Calm, Cooperative Orientation : Oriented x 4 Skin Temperature : Warm Skin Description : Dry Ava Bains Rn - 06/29/2020 18:10 EDT ED General-Functional Assess Information Obtained From : Patient Preferred Communication Mode : Verbal Communication Barrier : None Primary Language : Lao Any Spiritual/Cultural Needs or Requests : No Currently in Unsafe Situation : No Ava Bains Rn - 06/29/2020 18:10 EDT Social Habits Smoking Status : Never (less than 100 in lifetime; none in last 30 days) Smokeless Tobacco Status : Smokeless tobacco user within last 30 days Desires Tobacco Cessation Medication : No Reason for No Tobacco Cessation Medication : ED/procedural patient only Desires Tobacco Cessation Calc : 1 Ava Bains Rn - 06/29/2020 18:10 EDT 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 (As Of: 06/29/2020 18:10:49 EDT) Tobacco: Use in Last 12 Months: Snuff/Dip. Packs/Tins Daily: 0.5. (Last Updated: 02/24/2015 00:10:45 EDT by GURINDER ABARCA RN) Never (less than 100 in lifetime) Smoking Status. Snuff/Dip Smokeless Tobacco Use History. (Last Updated: 06/29/2020 18:10:43 EDT by Ava Bains Rn) Alcohol: Alcohol Use History No. (Last Updated: 02/24/2015 00:10:54 EDT by GURINDER ABARCA RN) Alcohol Use History No. (Last Updated: 06/29/2020 18:10:43 EDT by Ava Bains, Eve) Substance Abuse: Use in Last 12 Months: No. (Last Updated: 02/24/2015 00:11:03 EDT by GURINDER ABARCA, EVE) Drug Use Hx: No. Use in Last 12 Months: No. (Last Updated: 06/29/2020 18:10:43 EDT by Ava Bains, Eve) Gastrointestinal ED Gastrointestinal Assessment WDL : WDL with exceptions Gastrointestinal Symptoms : Abdominal pain Ava Bains Rn - 06/29/2020 18:10 EDT documented in this encounter Plan of Treatment Not on file documented as of this encounter Visit Diagnoses Not on filedocumented in this encounter
--- OUTSIDE RECORDS SUMMARY | 2025-06-07 16:23 | XMS_ITS | Encounter Summary ---
Author Organization [employer] ([place], [place], [place], [place]) Address [address] [place] [address] Care Team Providers Care Skirt Trimmer Name Role Phone Unavailable Primary Care Provider Unavailabl e Encounter Details Date Type Department Care Team (Late st Contact Info) Description 06/24/2020 Transcribed Document [facility] [place] [address] [place] [address] ProviderJulio MD [address] [place] [address] 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 Tobacco Use Types Packs/Day Years [...] ProviderMD - 06/24/2020 3:49 PM CDT ED Triage Entered On: 06/24/2020 16:02 EDT Performed On: 06/24/2020 15:59 EDT by DIDI DEL CID, WORKS MANAGER Triage Across the Room Chief Complaint : right flank pain Triage Date/Time : 06/24/2020 15:59 EDT DIDI DEL CID RN - 06/24/2020 15:59 EDT DCP GENERIC CODE Tracking Acuity : 3 - Urgent Tracking Group : [facility] ED WalworthDIDI Pimentel RN - 06/24/2020 15:59 EDT Mode of Arrival : Ambulatory Transported to ED by : Private vehicle To Room Via : Ambulate Accompanied By : Unaccompanied ED Vital Signs : Document Height & Weight : Document ED Allergies : Document ED Reason for Visit : Document Tetanus Immunization : Less than 5 years DIDI DEL CID RN - 06/24/2020 15:59 EDT Infectious Disease History Has the patient ever been tested for COVID-19? : Yes, Patient stated results Negative [facility] was the COVID[facility]19 Testing [facility] : [facility] are the test results? : Other: neg Date of COVID-19 test known? : No Date Comment : last month Does patient have symptoms of COVID-19? : No COVID19 Screening : No Experiencing Infectious Disease Symptoms : No symptoms Physical contact outside US in the last 30 days : No Infectious Disease History : Chicken pox/Shingles, Influenza Tuberculosis Symptoms : None DIDI DEL CID RN - 06/24/2020 15:59 EDT Vital Signs ED Temperature Source : Oral Temperature Mode : Fahrenheit Temperature, Fahrenheit : 98.5 Deg F ED Pain : Yes Clinical Temperature, C : 36.9 Deg C Oxygen Therapy Mode : Room air Peripheral Pulse Rate : 91 bpm Respiratory Rate : 20 Breaths/Min Systolic Blood Pressure : 211 mmHg (HI) Diastolic Blood Pressure : 129 mmHg (HI) Oxygen Saturation : 97 % DIDI DEL CID RN - 06/24/2020 15:59 EDT Allergy (As Of: 06/24/2020 16:02:54 EDT) Allergies (Active) most abx Estimated Onset Date: Unspecified ; Created By: MANPREET SALAS; Reaction Status: Active ; Category: Drug ; Substance: most abx ; Type: Allergy ; Updated By: MANPREET SALAS; Reviewed Date: 06/24/2020 16:01 EDT amoxicillin-clavulanate Estimated Onset Date: Unspecified ; Reactions: SOA, SOA ; Created By: MANPREET SALAS; Reaction Status: Active ; Category: Drug ; Substance: amoxicillin-clavulanate ; Type: Allergy ; Updated By: MANPREET SALAS; Reviewed Date: 06/24/2020 16:01 EDT cefaclor Estimated Onset Date: Unspecified ; Created By: MANPREET SALAS; Reaction Status: Active ; Substance: cefaclor ; Updated By: MANPREET SALAS; Reviewed Date: 06/24/2020 16:01 EDT ciprofloxacin Estimated Onset Date: Unspecified ; Reactions: HIVES, HIVES ; Created By: MANPREET SALAS; Reaction Status: Active ; Substance: ciprofloxacin ; Updated By: MANPREET SALAS; Reviewed Date: 06/24/2020 16:01 EDT codeine Estimated Onset Date: Unspecified ; Created By: LORE JARQUIN RN; Reaction Status: Active ; Category: Drug ; Substance: codeine ; Type: Allergy ; Updated By: LORE JARQUIN RN; Reviewed Date: 06/24/2020 16:01 EDT doxycycline Estimated Onset Date: Unspecified ; Reactions: RASH/SOA, RASH/SOA ; Created By: MANPREET SALAS; Reaction Status: Active ; Category: Drug ; Substance: doxycycline ; Type: Allergy ; Updated By: MANPREET SALAS; Reviewed Date: 06/24/2020 16:01 EDT gatifloxacin Estimated Onset Date: Unspecified ; Created By: MANPREET SALAS; Reaction Status: Active ; Substance: gatifloxacin ; Updated By: MANPREET SALAS; Reviewed Date: 06/24/2020 16:01 EDT Keflex Estimated Onset Date: Unspecified ; Created By: Cathi Green RN; Reaction Status: Active ; Category: Drug ; Substance: Keflex ; Type: Allergy ; Updated By: Cathi Green RN; Reviewed Date: 06/24/2020 16:01 EDT midazolam Estimated Onset Date: Unspecified ; Created By: MANPREET SALAS; Reaction Status: Active ; Category: Drug ; Substance: midazolam ; Type: Allergy ; Updated By: MANPREET SALAS; Reviewed Date: 06/24/2020 16:01 EDT nitrofurantoin Estimated Onset Date: Unspecified ; Reactions: RASH/SOA, RASH/SOA ; Created By: MANPREET SALAS; Reaction Status: Active ; Category: Drug ; Substance: nitrofurantoin ; Type: Allergy ; Updated By: MANPREET SALAS; Reviewed Date: 06/24/2020 16:01 EDT ondansetron Estimated Onset Date: Unspecified ; Created By: MANPREET SALAS; Reaction Status: Active ; Category: Drug ; Substance: ondansetron ; Type: Allergy ; Updated By: MANPREET SALAS; Reviewed Date: 06/24/2020 16:01 EDT sulfa drugs Estimated Onset Date: Unspecified ; Created By: MANPREET SALAS; Reaction Status: Active ; Substance: sulfa drugs ; Updated By: MANPREET SALAS; Reviewed Date: 06/24/2020 16:01 EDT Toradol Estimated Onset Date: Unspecified ; Created By: Cathi Green RN; Reaction Status: Active ; Category: Drug ; Substance: Toradol ; Type: Allergy ; Updated By: Cathi Green RN; Reviewed Date: 06/24/2020 16:01 EDT Diagnosis Control ED (As Of: 06/24/2020 16:02:54 EDT) Problems(Active) Endometriosis (SNOMED CT :276511460 ) Name of Problem: Endometriosis ; Recorder: Farzaneh Rico RN; Confirmation: Confirmed ; Classification: Medical ; Code: [id number] ; Contributor System: PowerChart ; Last Updated: 11/16/2019 4:18 EST ; Life Cycle Date: 11/16/2019 ; Life Cycle Status: Active ; Vocabulary: SNOMED CT Kidney stones (SNOMED CT :636121058 ) Name of Problem: Kidney stones ; Recorder: MANFRED CAI PA; Confirmation: Confirmed ; Classification: Medical ; Code: [id number] ; Contributor System: PowerChart ; Last Updated: 10/24/2015 13:26 EST ; Life Cycle Date: 10/24/2015 ; Life Cycle Status: Active ; Responsible Provider: MANFRED CAI PA; Vocabulary: SNOMED CT PTSD (post-traumatic stress disorder) (SNOMED CT :18491488 ) Name of Problem: PTSD (post-traumatic stress disorder) ; Recorder: MANFRED CAI PA; Confirmation: Confirmed ; Classification: Medical ; Code: [id number] ; Contributor System: Motif InvestingChart ; Last Updated: 10/24/2015 13:26 EST ; Life Cycle Date: 10/24/2015 ; Life Cycle Status: Active ; Responsible Provider: MANFRED CAI PA; Vocabulary: SNOMED CT Diagnoses(Active) Flank pain Date: 06/24/2020 ; Diagnosis Type: Reason For Visit ; Confirmation: Complaint of ; Clinical Dx: Flank pain ; Classification: Medical ; Clinical Service: Emergency medicine ; Code: PNED ; Probability: 0 ; Diagnosis Code: [id number] ED Height and Weight Height Source : Stated Height Entry Format : Carbon Height, Feet : 5 ft(Converted to: 152 cm, 60 Inch) Height, Inches : 2 Inch(Converted to: 0 ft 2 Inch, 5.08 cm) Clinical Height : 157.48 cm Weight Source, ED : Standing scale Weight Entry Format : Carbon Weight, Pounds : 240 lb Clinical Dosing Weight : 109.09 kg Body Surface Area (BSA) : 2.07 m2 Body Mass Index : 44 kg/m2 (>HHI) [place] Body Weight (IBW) : 49.73 kg DIDI DEL CID RN - 06/24/2020 15:59 EDT Pain Assessment Pain Assessment : Initial assessment Pain Scale Used : 0-10 Scale Location : Flank, right DIDI DEL CID RN - 06/24/2020 15:59 EDT Pain Scale Intensity : 9 DIDI DEL CID RN - 06/24/2020 15:59 EDT Image 4 - Images currently included in the form version of this document have not been included in the text rendition version of the form. documented in this encounter Plan of Treatment Not on file documented as of this encounter Visit Diagnoses Not on filedocumented in this encounter
--- OUTSIDE RECORDS SUMMARY | 2025-06-07 16:23 | XMS_ITS | Encounter Summary ---
Author Organization [employer] ([place], [place], [place], [place]) Address [address] [place] [address] Care Team Providers Care Stain Wiper Name Role Phone Unavailable Primary Care Provider Unavailabl e Encounter Details Date Type Department Care Team (Late st Contact Info) Description 06/24/2020 Transcribed Document [facility] [place] Medicine [address] [place] [address] ProviderJulio MD [address] [place] [address] 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 Tobacco Use Types Packs/Day Years [...] Conversion Note - Julio ProviderMD - 06/24/2020 4:04 PM CDT Patient: OREN KIM Age: 34 years Sex: Female : 1985 Associated Diagnoses: Right ureteral stone Author: SANAM BANG MD-EMR Basic Information Additional information: Chief Complaint from Nursing Triage Note : Chief Complaint 06/24/2020 15:59 EDT Chief Complaint right flank pain . History of Present Illness The patient presents with flank pain. The onset was 2 hours ago. The course/duration of symptoms is constant. The character of symptoms is dull. The degree at onset was severe. The Location of pain at onset was right and flank. The degree at present is severe. The Location of pain at present is right and flank. Radiating pain: none. The exacerbating factor is none. The relieving factor is none. Therapy today: none. Risk factors consist of none. Associated symptoms: nausea. Review of Systems Constitutional symptoms: Negative except [...] Medical/ Family/ 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 Surgical history: Lithotripsy ([id number]).. Family history: No family history items have been selected or recorded.. Social history: Social & Psychosocial Habits Alcohol 02/24/2015 Alcohol Use History, Social Habits No Substance Abuse 02/24/2015 Recreational Drug Use Last 12 Months No Tobacco 02/24/2015 Tobacco Use Within Last Twelve Months Snuff/Dip Packs/Tins Daily 0.5 . Physical Examination Vital Signs Vital Signs/Vital Measures 06/24/2020 15:59 EDT Systolic Blood Pressure 211 mmHg HI Diastolic Blood Pressure 129 mmHg HI Temperature Source Oral Temperature Mode Fahrenheit Temperature, Fahrenheit 98.5 Deg F Clinical Temperature, C 36.9 Deg C Peripheral Pulse Rate 91 bpm Respiratory Rate 20 Breaths/Min Oxygen Saturation 97 % Oxygen Therapy Mode Room air . Measurements 06/24/2020 15:59 EDT Height Source Stated Height Entry Format [place] Height/Length, [place] (ft) 5 ft Height/Length [place] 2 Inch CLINICALHEIGHT 157.48 cm [place] Body Weight 49.73 kg Weight Source, ED Standing scale Weight Entry Format [place] Weight Somali lb 240 lb CLINICALWEIGHT 109.09 kg Body Surface Area (BSA) 2.07 m2 Body Mass Index 44 kg/m2 >HHI . Oxygen Saturation 06/24/2020 15:59 EDT Oxygen Saturation 97 % . General: Alert, mild distress. Skin: Warm, dry, pink. Head: Normocephalic, atraumatic. Neck: Supple. Eye: Pupils are equal, round and reactive to light, extraocular movements are intact, normal conjunctiva. Cardiovascular: Regular rate and rhythm, No murmur. Chest wall: No tenderness. Back: Nontender. Musculoskeletal: Normal ROM. Gastrointestinal: Soft, Nontender, Non distended, Normal bowel sounds, No organomegaly. Neurological: Alert and oriented to person, place, time, and situation, No focal neurological deficit observed, CN II-XII intact, normal sensory observed, normal motor observed, normal speech observed, normal coordination observed. Lymphatics: No lymphadenopathy. Psychiatric: Cooperative. Medical Decision Making Differential Diagnosis: Abdominal pain, ureteral stone, pyelonephritis. Documents reviewed: Emergency department nurses' notes, prior records. Results review: All Results 06/24/2020 16:[address] Abdomen Pelvis WO REPORT 06/24/2020 16:04 EDT ED Physician Notes Flank pain (In Progress) 06/24/2020 15:59 EDT ED Nursing Record ED Nursing Record Suicide Risk Screen-Text 06/24/2020 15:49 EDT Consent Forms Consent Forms 06/24/2020 16:17 EDT Nurse Collect Order Detail 3.00 06/24/2020 16:17 EDT Nurse Collect Order Detail 3.00 06/24/2020 16:15 EDT Nurse Collect Order Detail 3.00 06/24/2020 16:15 EDT Nurse Collect Order Detail 3.00 06/24/2020 16:02 EDT Estimated Creatinine Clearance 45.10 mL/Min 06/24/2020 15:59 EDT Systolic Blood Pressure 211 mmHg HI Diastolic Blood Pressure 129 mmHg HI Temperature Source Oral Temperature Mode Fahrenheit Temperature, Fahrenheit 98.5 Deg F Clinical Temperature, C 36.9 Deg C Peripheral Pulse Rate 91 bpm Respiratory Rate 20 Breaths/Min Oxygen Saturation 97 % Oxygen Therapy Mode Room air Height Source Stated Height Entry Format [place] Height/Length, [place] (ft) 5 ft Height/Length [place] 2 Inch CLINICALHEIGHT 157.48 cm [place] Body Weight 49.73 kg Weight Source, ED Standing scale Weight Entry Format [place] Weight Somali lb 240 lb CLINICALWEIGHT 109.09 kg Body Surface Area (BSA) 2.07 m2 Body Mass Index 44 kg/m2 >HHI Pain Assessment Initial assessment Pain Scale Used 0-10 Scale Pain Intensity 9 Pain Location Flank, right Level of Consciousness Alert, Awake Orientation Oriented x 4 Affect/Behavior Appropriate, Calm Genitourinary Symptoms Other: right flank pain Skin Description Dry, [place] Tract Skin Temperature Warm ABCs Fall Injury Risk Identification None PEREIRA Hx Falls Immediate/Within 3 Months No Pereira Secondary Diagnosis No PEREIRA Ambulatory Aid None Pereira IV Therapy or IV Access No Pereira Gait/Transferring Normal, bedrest, immobile PEREIRA Mental Status Oriented to own ability Pereira Fall Risk Score 0 Pereira Fall Scale Risk Level 0-24 Low Risk [place] Fall Interventions Adequate lighting, Assistive devices within reach, Bed in low position, Call device within reach CSSRS Past Month Wish to be No CSSRS Past Month Suicidal Thoughts No CSSRS Lifetime Suicide Behavior No Suicide Severity Rating Score 0 Suicide Severity Rating No Additional Care Required at this time Date of COVID-19 test known? No Date Comment last month Communication Barrier None Tuberculosis Symptoms None Infectious Disease History Chicken pox/Shingles, Influenza COVID19 Screening No Has the pt ever been tested for COVID-19 Yes, Patient stated results Negative Does patient have symptoms of COVID-19? No Experiencing Infectious Disease Symptoms No symptoms Physical contact outside US last 30 days No Chief Complaint right flank pain Transported to ED by Private vehicle To Room Via Ambulate Tracking Acuity 3 - Urgent Accompanied by Unaccompanied Mode of Arrival Ambulatory Primary Language Somali Tetanus Immunization Less than 5 years Smoking Status Never (less than 100 in lifetime; none in last 30 days) Desires Tobacco Cessation Medication No Smokeless Tobacco Status Smokeless tobacco user within last 30 days Any Spiritual/Cultural Needs or Requests No Currently in Unsafe Situation No 06/24/2020 15:49 EDT Nurse Collect Order Detail 3.00 Nurse Collect Order Detail 3.00 . Radiology results: Computed tomography, discussed with radiologist. Impression and Plan Diagnosis Right ureteral stone - Discharge, Emergency medicine, Medical Plan Condition: Stable. Disposition: Discharged Admit/Transfer/Discharge: Discharge (Order): Start: 06/24/2020 16:48 EDT, Discharge to: Home. Prescriptions: Prescription Manager [facility]: promethazine 25 mg oral tablet (Prescribe): 1 Tab, Oral, Q6H, for 5 Day(s), 20 Tab, 0 Refill(s) Dilaudid 2 mg oral tablet (Prescribe): 1 Tab, Oral, Q4H, for 3 Day(s), PRN: as needed for pain, 15 Tab, 0 Refill(s). Patient was given the following educational materials: Kidney Stones. Limitations: Limited activity. Follow up with: NICOLE ERNST Within 2 to 3 days. Counseled: Patient, Regarding diagnosis, Regarding diagnostic results, Regarding treatment plan, Regarding prescription, Patient indicated understanding of instructions. documented in this encounter Plan of Treatment Not on file documented as of this encounter Visit Diagnoses Not on filedocumented in this encounter
--- OUTSIDE RECORDS SUMMARY | 2025-06-07 16:23 | XMS_ITS | Encounter Summary ---
Author Organization [employer] ([place], [place], [place], [place]) Address [address] [place] [address] Care Team Providers Care Research Agricultural Engineer Name Role Phone Unavailable Primary Care Provider Unavailabl e Encounter Details Date Type Department Care Team (Late st Contact Info) Description 08/26/2019 Transcribed Document [facility] [place] [address] [place] [address] ProviderJulio MD [address] [place] [address] 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 Tobacco Use Types [...] Cerner Conversion Note - Historical ProviderMD - 08/26/2019 5:54 PM CLOTH PATTERN MAKER Urine Culture Collected: 08/23/2019 Esccol, GNR Complete Body site: Specimen Type: U CleanCatch 08/26/2019 07:50 08/26/2019 17:54 (CARA SPRINGER PA-C) Reviewed by Provider, No further action required, Patient Contacted Called in a prescription for Erythromycin as she is allergic to all other abx.?? She voices understanding of the treatment plan 08/26/2019 12:32 (CARA SPRINGER PA-C) Reviewed by Provider, Called and Left Message Electronically signed by Eron [facility] Conversion Resident Services Manager Cerner at 12/29/2022 4:05 PM CDT documented in this encounter Plan of Treatment Not on file documented as of this encounter Visit Diagnoses Not on filedocumented in this encounter
--- OUTSIDE RECORDS SUMMARY | 2025-06-07 16:23 | XMS_ITS | Encounter Summary ---
Author Organization [employer] ([place], [place], [place], [place]) Address [address] [place] [address] Care Team Providers Care Sales And Marketing Manager Name Role Phone Unavailable Primary Care Provider Unavailabl e Encounter Details Date Type Department Care Team (Late st Contact Info) Description 08/31/2019 Transcribed Document [facility] [place] Family Medicine [address] [place] [address] ProviderJulio MD [address] [place] [address] 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 Tobacco Use Types Packs/Day Years Used Date Smoking Tobacco: Never Assessed Comments Unknown Sex and Gender Information Value Date Recorded Sex Assigned at Female 03/12/2022 2:43 PM CDT Legal Sex Female 5:44 PM CDT Gender Identity Female 03/12/2022 2:43 PM CDT Sexual Orientation Not on file documented as of this encounter Miscellaneous Notes * Cerner Conversion Note - Historical ProviderMD - 08/31/2019 4:47 PM BOILER SERVICE TECHNICIAN Electronically signed by Eron [facility] Conversion Cnc Mill Programmer Cerner at 12/29/2022 4:24 PM CDT documented in this encounter Plan of Treatment Not on file documented as of this encounter Visit Diagnoses Not on filedocumented in this encounter
--- OUTSIDE RECORDS SUMMARY | 2025-06-07 16:23 | XMS_ITS | Encounter Summary ---
Author Organization [employer] ([place], [place], [place], [place]) Address [address] [place] [address] Care Team Providers Care Loop Puller Name Role Phone Unavailable Primary Care Provider Unavailabl e Encounter Details Date Type Department Care Team (Late st Contact Info) Description 06/29/2020 Transcribed Document [facility] [place] [address] [place] [address] ProviderJulio MD [address] [place] [address] 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 Tobacco Use Types [...] Note - Julio Van MD - 06/29/2020 8:30 PM CDT [facility] [address] [place] [address] OREN KIM :1985 Visit Time:06/29/2020 Your Visit Summary Your Care Team Primary Provider: NEELIMA ABARCA, JAZZY-EMR Secondary Provider: Your Diagnosis Back pain Flank pain Right ureteral stone Medical Information [...] do next Follow-Up Appointments Follow Up with BRYON TAVERAS When Within 2 days Where: [address] [place] [address] [phone] [facility] (1) Follow Up with Return to Emergency Department When Within As needed Allergies most abx Keflex Toradol amoxicillin-clavulanate (SOA, SOA) cefaclor ciprofloxacin (HIVES, HIVES) codeine doxycycline (RASH/SOA, RASH/SOA) gatifloxacin midazolam nitrofurantoin (RASH/SOA, RASH/SOA) ondansetron sulfa drugs Immunizations This Visit No Immunizations Found Medications What How Much When Instructions Next Dose acetaminophen-oxyCODONE (Percocet 5/ 325 oral tablet) 1 Tablet(s) Oral Every 6 Hours as needed for for pain Printed Prescription promethazine (promethazine 25 mg oral tablet) 1 Tablet(s) Oral Every 4 Hours as needed for as needed for nausea/vomiting Duration: 5 Day(s) promethazine (promethazine 25 mg oral tablet) 1 Tablet(s) Oral Every 6 Hours Duration: 5 Day(s) promethazine (promethazine 25 mg [...] This Visit (last charted value for your 06/29/2020 visit) Hematology 06/29/2020 6:15 PM WBC: 10.6 K/uL -- Normal range between ( 4.0 and 10.0 ) RBC: 4.96 Million/uL -- Normal range between ( 3.93 and 5.22 ) Hct: 42.2 % -- Normal range between ( 34.1 and 44.9 ) Hgb: 13.8 Gram/dL -- Normal range between ( 11.2 and 15.7 ) Platelet Count: 434 K/uL -- Normal range between ( 163 and 369 ) MCH: 27.8 pg -- Normal range between ( 25.6 and 32.2 ) MCHC: 32.7 Gram/dL -- Normal range between ( 32.2 and 36.5 ) MCV: 85.1 fL -- Normal range between ( 79.0 and 94.8 ) Slide Review: No Eos %: 2.9 % -- Normal range between ( 0.0 and 7.0 ) [place] #: 0.88 K/uL -- Normal range between ( 0.16 and 1.00 ) Eos #: .31 K/uL -- Normal range between ( .00 and .80 ) [place] %: 8.3 % -- Normal range between ( 3.0 and 9.0 ) Baso %: 0.3 % -- Normal range between ( 0.0 and 2.0 ) Baso #: 0.03 K/uL -- Normal range between ( 0.00 and 0.20 ) RDW: 14.7 % -- Normal range between ( 11.6 and 14.4 ) Neut %: 67.2 % -- Normal range between ( 34.0 and 71.0 ) Neut #: 7.16 K/uL -- Normal range between ( 1.56 and 6.13 ) Lymph %: 21.0 % -- Normal range between ( 19.0 and 53.0 ) Lymph #: 2.24 K/uL -- Normal range between ( 1.18 and 3.74 ) MPV: 9.4 fL -- Normal range between ( 9.4 and 12.4 ) IG#: 0 x10(3)/uL IG%: 0 % -- Normal range between ( 0 and 1 ) Urinalysis 06/29/2020 6:37 PM Ur RBC: 2-5 /HPF Urine Nitrite: Negative Urine Leukocyte Esterase: Trace Urine Appearance: Cloudy Urine Glucose Dipstick: Negative Urine Blood Dipstick: Trace - Intact Urine Urobilinogen Dipstick: 0.2 EU/dL Urine Protein Dipstick: Negative Ur Amorph: 1+ Ur Bacteria: 3+ Ur Squamous Epithelial Cells: 10-20 /HPF Urine Color: Yellow Ur WBC: 10-20 /HPF Urine Ketones Dipstick: Negative Ur Mucous: Trace Urine pH Dipstick: 7.0 -- Normal range between ( 6.0 and 8.0 ) Urine Bilirubin Dipstick: Negative Urine Specific [place]: 1.020 -- Normal range between ( 1.005 and 1.030 ) Urine Type.: U [employer] General Chemistry 06/29/2020 6:15 PM Creatinine Level: 0.94 mg/dL -- Normal range between ( 0.55 and 1.02 ) Sodium Level: 141 mmol/L -- Normal range between ( 136 and 145 ) Potassium Level: 3.5 mmol/L -- Normal range between ( 3.5 and 5.1 ) Chloride Level: 105 mmol/L -- Normal range between ( 98 and 107 ) Carbon Dioxide Level: 27 mmol/L -- Normal range between ( 21 and 32 ) Anion Gap: 12 -- Normal range between ( 9 and 20 ) Bilirubin Total: 0.2 mg/dL -- Normal range between ( 0.2 and 1.0 ) A/G Ratio: 0.7 -- Normal range between ( 1.1 and 2.5 ) ALT: 32 Units/Liter -- Normal range between ( 14 and 59 ) AST: 19 Units/Liter -- Normal range between ( 15 and 37 ) Globulin: 4.3 Gram/dL -- Normal range between ( 1.5 and 4.5 ) Alk Phos: 83 Units/Liter -- Normal range between ( 46 and 116 ) Bun/Creatinine: 13.830 Calcium Level: 8.8 mg/dL -- Normal range between ( 8.6 and 10.1 ) eGFR : 83 mL/min/1.73m2 eGFR NonAfrican: 68 mL/min/1.73m2 Glucose Level: 111 mg/dL -- Normal range between ( 74 and 106 ) Blood Urea Nitrogen: 13 mg/dL -- Normal range between ( 7 and 18 ) Protein Total: 7.2 Gram/dL -- Normal range between ( 6.4 and 8.2 ) Albumin Level: 2.9 Gram/dL -- Normal range between ( 3.4 and 5.0 ) Education Materials Kidney Stones Kidney stones (urolithiasis) are rock-like masses that form inside of the kidneys. Kidneys are organs that make pee (urine). A kidney stone can cause very bad pain and can block the flow of pee. The stone usually leaves your body (passes) through your pee. You may need to have a doctor take out the stone. Follow these instructions at home: Eating and drinking ??? Drink enough fluid to keep your pee clear or pale yellow. This will help you pass the stone. ??? If told by your doctor, change the foods you eat (your diet). This may include: ? Limiting how much salt (sodium) you eat. ? Eating more fruits and vegetables. ? Limiting how much meat, poultry, fish, and eggs you eat. ??? Follow instructions from your doctor about eating or drinking restrictions. General instructions ??? Collect pee samples as told by your doctor. You may need to collect a pee sample: ? 24 hours after a stone comes out. ? 8???12 weeks after a stone comes out, and every 6???12 months after that. ??? Strain your pee every time you pee (urinate), for as long as told. Use the strainer that your doctor recommends. ??? Do not throw out the stone. Keep it so that it can be tested by your doctor. ??? Take emsk-fla-stsqsgf and prescription medicines only as told by your doctor. ??? Keep all follow-up visits as told by your doctor. This is important. You may need follow-up tests. Preventing kidney stones To prevent another kidney stone: ??? Drink enough fluid to keep your pee clear or pale yellow. This is the best way to prevent kidney stones. ??? Eat healthy foods. ??? Avoid certain foods as told by your doctor. You may be told to eat less protein. ??? Stay at a healthy weight. Contact a doctor if: ??? You have pain that gets worse or does not get better with medicine. Get help right away if: ??? You have a fever or chills. ??? You get very bad pain. ??? You get new pain in your belly (abdomen). ??? You pass out (faint). ??? You cannot pee. This information is not intended to replace advice given to you by your health care provider. Make sure you discuss any questions you have with your health care provider. Document Released: 02/15/2009 Document Revised: 04/11/2019 Document Reviewed: 05/18/2017 [employer] Patient Education ?? 2020 [employer] Emergency Awareness and Preventative Care STROKE [...] Assistance with quitting is available by contacting 6-455-SQSJNOW. This is a free resource providing counseling, support, and referral. Or you may contact your personal physician. [place] Suicide Prevention Lifeline: The National Suicide Prevention [...] was given the opportunity to ask questions. Patient/Bending Roll Hand Name: Patient/Bending Roll Hand Signature: Relationship to Patient: Clinician/Hospital Bending Roll Hand Signature: Please Provide a Telephone Number Where You Can Be Reached: Is it Permissible To Leave a Message? Date: Electronically signed by Eron, [facility] Conversion Halftone Operator Cerner at 12/29/2022 4:25 PM CDT documented in this encounter Plan of Treatment Not on file documented as of this encounter Visit Diagnoses Not on filedocumented in this encounter
--- OUTSIDE RECORDS SUMMARY | 2025-06-07 16:23 | XMS_ITS | Encounter Summary ---
Author Organization [employer] ([place], [place], [place], [place]) Address [address] [place] [address] Care Team Providers Care General Engineer Name Role Phone Unavailable Primary Care Provider Unavailabl e Encounter Details Date Type Department Care Team (Late st Contact Info) Description 06/26/2020 Transcribed Document [facility] [place] [address] [place] [address] ProviderJulio MD [address] [place] [address] 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 Tobacco Use Types Packs/Day Years Used Date Smoking Tobacco: Never Assessed Comments Unknown Sex and Gender Information Value Date Recorded Sex Assigned at Female 03/12/2022 2:43 PM CDT Legal Sex Female 5:44 PM CDT Gender Identity Female 03/12/2022 2:43 PM CDT Sexual Orientation Not on file documented as of this encounter Miscellaneous Notes * Cerner Conversion Note - Historical ProviderMD - 06/26/2020 7:52 PM CDT Urine Culture Collected: 06/24/2020 16:37 Complete Body site: Specimen Type: U CleanCatch 06/26/2020 10:40 06/26/2020 19:52 (CATIA BARFIELD PA-INT) Reviewed by Provider, No further action required documented in this encounter Plan of Treatment Not on file documented as of this encounter Visit Diagnoses Not on filedocumented in this encounter
--- OUTSIDE RECORDS SUMMARY | 2025-06-07 16:23 | XMS_ITS | Encounter Summary ---
Author Organization [employer] ([place], [place], [place], [place]) Address [address] [place] [address] Care Team Providers Care Decision Unit Rn Name Role Phone Unavailable Primary Care Provider Unavailabl e Encounter Details Date Type Department Care Team (Late st Contact Info) Description 09/11/2019 Transcribed Document [facility] [place] [address] [place] [address] ProviderJulio MD [address] [place] [address] 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 Tobacco Use Types Packs/Day Years [...] Conversion Note - Julio Van MD - 09/11/2019 1:52 PM FINANCIAL ANALYSIS MANAGER ED Triage Entered On: 09/11/2019 14:06 EST Performed On: 09/11/2019 14:03 EST by Ana Lopez RN ED Triage Across the Room Chief Complaint : Kidney stone x 3 weeks. Vomiting today. Left side. Pt dx'd with this stone here. Triage Date/Time : 09/11/2019 14:03 EST Ana Lopez RN - 09/11/2019 14:03 EST DCP GENERIC CODE Tracking Acuity : 3 - Urgent Tracking Group : [facility] ED Ana Amin RN - 09/11/2019 14:03 EST Mode of Arrival : Ambulatory Transported to ED by : Walk in To Room Via : Ambulate Accompanied By : Unaccompanied ED Vital Signs : Document Height & Weight : Document ED Allergies : Document ED Reason for Visit : Document Status : Hysterectomy Tetanus Immunization : Less than 5 years Ana Lopez RN - 09/11/2019 14:03 EST Infectious Disease History Infectious Disease History : Chicken pox/Shingles, Influenza Fever/Chills Last 48 Hours : No Travel To Regions with Travel Advisories : No Travel Outside [place] Within Last 30 Days : No Contact With Traveler to Advisory Region : No Tuberculosis Symptoms : None Ana Lopez RN - 09/11/2019 14:03 EST Vital Signs ED Temperature Source : Oral Temperature Mode : Fahrenheit Temperature, Fahrenheit : 99 Deg F ED Pain : Yes Clinical Temperature, C : 37.2 Deg C Oxygen Therapy Mode : Room air Peripheral Pulse Rate : 95 bpm Respiratory Rate : 18 Breaths/Min Systolic Blood Pressure : 180 mmHg (HI) Diastolic Blood Pressure : 118 mmHg (HI) Oxygen Saturation : 98 % Ana Lopez RN - 09/11/2019 14:03 EST Allergy (As Of: 09/11/2019 14:06:35 EST) Allergies (Active) most abx Estimated Onset Date: Unspecified ; Created By: MANPREET Magdaleno; Reaction Status: Active ; Category: Drug ; Substance: most abx ; Type: Allergy ; Updated By: MANPREET Magdaleno; Reviewed Date: 09/11/2019 14:04 EST amoxicillin-clavulanate Estimated Onset Date: Unspecified ; Reactions: SOA, SOA ; Created By: MANPREET Magdaleno; Reaction Status: Active ; Category: Drug ; Substance: amoxicillin-clavulanate ; Type: Allergy ; Updated By: MANPREET Magdaleno; Reviewed Date: 09/11/2019 14:04 EST cefaclor Estimated Onset Date: Unspecified ; Created By: MANPREET Magdaleno; Reaction Status: Active ; Substance: cefaclor ; Updated By: MANPREET Magdaleno; Reviewed Date: 09/11/2019 14:04 EST ciprofloxacin Estimated Onset Date: Unspecified ; Reactions: HIVES, HIVES ; Created By: MANPREET Magdaleno; Reaction Status: Active ; Substance: ciprofloxacin ; Updated By: MANPREET Magdaleno; Reviewed Date: 09/11/2019 14:04 EST codeine Estimated Onset Date: Unspecified ; Created By: LORE JARQUIN RN; Reaction Status: Active ; Category: Drug ; Substance: codeine ; Type: Allergy ; Updated By: LORE JARQUIN RN; Reviewed Date: 09/11/2019 14:04 EST doxycycline Estimated Onset Date: Unspecified ; Reactions: RASH/SOA, RASH/SOA ; Created By: MANPREET Magdaleno; Reaction Status: Active ; Category: Drug ; Substance: doxycycline ; Type: Allergy ; Updated By: MANPREET Magdaleno; Reviewed Date: 09/11/2019 14:04 EST gatifloxacin Estimated Onset Date: Unspecified ; Created By: MANPREET Magdaleno; Reaction Status: Active ; Substance: gatifloxacin ; Updated By: MANPREET Magdaleno; Reviewed Date: 09/11/2019 14:04 EST Keflex Estimated Onset Date: Unspecified ; Created By: Cathi Green RN; Reaction Status: Active ; Category: Drug ; Substance: Keflex ; Type: Allergy ; Updated By: Cathi Green RN; Reviewed Date: 09/11/2019 14:04 EST midazolam Estimated Onset Date: Unspecified ; Created By: MANPREET Magdaleno; Reaction Status: Active ; Category: Drug ; Substance: midazolam ; Type: Allergy ; Updated By: MANPREET Magdaleno; Reviewed Date: 09/11/2019 14:04 EST nitrofurantoin Estimated Onset Date: Unspecified ; Reactions: RASH/SOA, RASH/SOA ; Created By: MANPREET Magdaleno; Reaction Status: Active ; Category: Drug ; Substance: nitrofurantoin ; Type: Allergy ; Updated By: MANPREET Magdaleno; Reviewed Date: 09/11/2019 14:04 EST ondansetron Estimated Onset Date: Unspecified ; Created By: MANPREET Magdaleno; Reaction Status: Active ; Category: Drug ; Substance: ondansetron ; Type: Allergy ; Updated By: MANPREET Magdaleno; Reviewed Date: 09/11/2019 14:04 EST sulfa drugs Estimated Onset Date: Unspecified ; Created By: Contributor_systemMANPREET; Reaction Status: Active ; Substance: sulfa drugs ; Updated By: Contributor_MANPREET patterson; Reviewed Date: 09/11/2019 14:04 EST Toradol Estimated Onset Date: Unspecified ; Created By: Cathi Green RN; Reaction Status: Active ; Category: Drug ; Substance: Toradol ; Type: Allergy ; Updated By: Cathi Green RN; Reviewed Date: 09/11/2019 14:04 EST Diagnosis Control ED (As Of: 09/11/2019 14:06:35 EST) Problems(Active) Kidney stones (SNOMED CT :192650952 ) Name of Problem: Kidney stones ; Recorder: MANFRED CAI PA; Confirmation: Confirmed ; Classification: Medical ; Code: [id number] ; Contributor System: [employer] ; Last Updated: 10/24/2015 13:26 EST ; Life Cycle Date: 10/24/2015 ; Life Cycle Status: Active ; Responsible Provider: MANFRED CAI PA; Vocabulary: SNOMED CT PTSD (post-traumatic stress disorder) (SNOMED CT :68889915 ) Name of Problem: PTSD (post-traumatic stress disorder) ; Recorder: MANFRED CAI PA; Confirmation: Confirmed ; Classification: Medical ; Code: [id number] ; Contributor System: [employer] ; Last Updated: 10/24/2015 13:26 EST ; Life Cycle Date: 10/24/2015 ; Life Cycle Status: Active ; Responsible Provider: MANFRED CAI PA; Vocabulary: SNOMED CT Diagnoses(Active) Flank pain Date: 09/11/2019 ; Diagnosis Type: Reason For Visit ; Confirmation: Complaint of ; Clinical Dx: Flank pain ; Classification: Medical ; Clinical Service: Emergency medicine ; Code: PNED ; Probability: 0 ; Diagnosis Code: [id number] ED Height and Weight Height Source : Stated Height Entry Format : [place] Height, Feet : 5 ft(Converted to: 152 cm, 60 Inch) Height, Inches : 2 Inch(Converted to: 0 ft 2 Inch, 5.08 cm) Clinical Height : 157.48 cm Weight Source, ED : Critical estimated dosing weight Weight Entry Format : [place] Weight, Pounds : 220 lb Clinical Dosing Weight : 100 kg Body Surface Area (BSA) : 1.99 m2 Body Mass Index : 40.3 kg/m2 (>HHI) [place] Body Weight (IBW) : 49.73 kg Ana Lopez RN - 09/11/2019 14:03 EST Pain Assessment Pain Assessment : Initial assessment Pain Scale Used : 0-10 Scale Location : Flank, left Ana Lopez RN - 09/11/2019 14:03 EST Pain Scale Intensity : 8 Ana Lopez RN - 09/11/2019 14:03 EST Image 4 - Images currently included in the form version of this document have not been included in the text rendition version of the form. documented in this encounter Plan of Treatment Not on file documented as of this encounter Visit Diagnoses Not on filedocumented in this encounter
--- OUTSIDE RECORDS SUMMARY | 2025-06-07 16:23 | XMS_ITS | Encounter Summary ---
Author Organization [employer] ([place], [place], [place], [place]) Address [address] [place] [address] Care Team Providers Care Property Field Inspector Name Role Phone Unavailable Primary Care Provider Unavailabl e Encounter Details Date Type Department Care Team (Late st Contact Info) Description 06/24/2020 Transcribed Document [facility] [place] [address] [place] [address] ProviderJulio MD [address] [place] [address] 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 Tobacco Use Types Packs/Day Years [...] Note - Julio Van MD - 06/24/2020 5:39 PM CDT ED Discharge Entered On: 06/24/2020 17:40 EDT Performed On: 06/24/2020 17:39 EDT by Elsa Corea park keeper Process Patient Disposition : Discharge Personal Belongings With Patient : Yes Patient Education Completed : Yes Teaching Evaluation : Verbalizes understanding IV Discontinued : Not applicable Nursing Documentation Completed : Yes Elsa Corea RN - 06/24/2020 17:39 EDT ED Discharge Vital Signs Peripheral Pulse Rate : 103 bpm (HI) Respiratory Rate : 18 Breaths/Min Systolic Blood Pressure : 165 mmHg (HI) Diastolic Blood Pressure : 107 mmHg (HI) Oxygen Saturation : 96 % Oxygen Therapy Mode : Room air Elsa Corea RN - 06/24/2020 17:39 EDT ED Discharge Discharge To : Home with ambulatory/outpatient follow-up Mode Of Departure : Ambulatory Accompanied By : Responsible adult Discharge Instructions Reviewed With, Opportunity For Questions Given : Patient Prescriptions Given to Patient : Yes Number of Prescriptions Given : 2 Medications Given to Patient : Yes Number of Medications Given : 2 Elsa Corea RN - 06/24/2020 17:39 EDT Electronically signed by Eron [facility] Conversion Surgeon Assistant Cerner at 12/29/2022 4:03 PM CDT documented in this encounter Plan of Treatment Not on file documented as of this encounter Visit Diagnoses Not on filedocumented in this encounter
--- OUTSIDE RECORDS SUMMARY | 2025-06-07 16:23 | XMS_ITS | Encounter Summary ---
Author Organization [employer] ([place], [place], [place], [place]) Address [address] [place] [address] Care Team Providers Care Plant Clerk Name Role Phone Unavailable Primary Care Provider Unavailabl e Encounter Details Date Type Department Care Team (Late st Contact Info) Description 06/29/2020 Transcribed Document [facility] [place] [address] [place] [address] ProviderJulio MD [address] [place] [address] 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 Tobacco Use Types Packs/Day Years [...] Note - Julio Van MD - 06/29/2020 9:30 PM CDT ED Discharge Entered On: 06/29/2020 21:31 EDT Performed On: 06/29/2020 21:30 EDT by Cydney Dunn RN Discharge Process Patient Disposition : Discharge Personal Belongings With Patient : Yes Patient Education Completed : Yes Teaching Evaluation : Verbalizes understanding IV Discontinued : Yes Nursing Documentation Completed : Yes Cydney Dunn RN - 06/29/2020 21:30 EDT ED Discharge Discharge To : Home with ambulatory/outpatient follow-up Mode Of Departure : Private vehicle Accompanied By : Unaccompanied Discharge Instructions Reviewed With, Opportunity For Questions Given : Patient Prescriptions Given to Patient : Yes Number of Prescriptions Given : 2 Cydney Dunn RN - 06/29/2020 21:30 EDT documented in this encounter Plan of Treatment Not on file documented as of this encounter Visit Diagnoses Not on filedocumented in this encounter
--- OUTSIDE RECORDS SUMMARY | 2025-06-07 16:23 | XMS_ITS | Encounter Summary ---
Author Organization [employer] ([place], [place], [place], [place]) Address [address] [place] [address] Care Team Providers Care Greeter Guest Services Name Role Phone Unavailable Primary Care Provider Unavailabl e Encounter Details Date Type Department Care Team (Late st Contact Info) Description 08/23/2019 Transcribed Document [facility] [place] [address] [place] [address] ProviderJulio MD [address] [place] [address] 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 Tobacco Use Types Packs/Day Years [...] Note - Julio Van MD - 08/23/2019 6:26 AM LEATHER SOFTENER ED Assessment Entered On: 08/23/2019 7:30 EST Performed On: 08/23/2019 7:29 EST by Farzaneh Rico RN ED Quick Look Assessment Level of Consciousness : Alert, Awake Affect/Behavior : Appropriate, Calm, Cooperative Orientation : Oriented x 4 Skin Temperature : Warm Skin Description : Dry Farzaneh Rico RN - 08/23/2019 7:29 EST ED General-Functional Assess Information Obtained From : Patient Preferred Communication Mode : Verbal Communication Barrier : None Primary Language : Khmer Any Spiritual/Cultural Needs or Requests : No Currently in Unsafe Situation : No Farzaneh Rico RN - 08/23/2019 7:29 EST Social Habits Smoking Status : Never (less than 100 in lifetime; none in last 30 days) Smokeless Tobacco Status : Smokeless tobacco user within last 30 days Desires Tobacco Cessation Medication : No Reason for No Tobacco Cessation Medication : ED/procedural patient only Desires Tobacco Cessation Calc : 1 Farzaneh Rico RN - 08/23/2019 7:29 EST 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 (As Of: 08/23/2019 07:30:34 EST) Tobacco: Use in Last 12 Months: [...] left flank pain Farzaneh Rico RN - 08/23/2019 7:29 EST documented in this encounter Plan of Treatment Not on file documented as of this encounter Visit Diagnoses Not on filedocumented in this encounter
--- OUTSIDE RECORDS SUMMARY | 2025-06-07 16:23 | XMS_ITS | Encounter Summary ---
Author Organization [employer] ([place], [place], [place], [place]) Address [address] [place] [address] Care Team Providers Care Floor Covering Printer Name Role Phone Unavailable Primary Care Provider Unavailabl e Encounter Details Date Type Department Care Team (Late st Contact Info) Description 07/02/2020 Transcribed Document [facility] [place] [address] [place] [address] ProviderJulio MD [address] [place] [address] 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 Tobacco Use Types Packs/Day Years Used Date Smoking Tobacco: Never Assessed Comments Unknown Sex and Gender Information Value Date Recorded Sex Assigned at Female 03/12/2022 2:43 PM CDT Legal Sex Female 5:44 PM CDT Gender Identity Female 03/12/2022 2:43 PM CDT Sexual Orientation Not on file documented as of this encounter Miscellaneous Notes * Cerner Conversion Note - Historical ProviderMD - 07/02/2020 3:49 PM CDT Urine Culture Collected: 06/29/2020 18:37 Complete Body site: Specimen Type: U CleanCatch 07/02/2020 08:55 07/02/2020 15:49 (YARA CENTENO PA) Reviewed by Provider, No further action required x1 Electronically signed by Rachel Littlejohn Conversion Supervisor Production Department Cerner at 12/29/2022 4:00 PM CDT documented in this encounter Plan of Treatment Not on file documented as of this encounter Visit Diagnoses Not on filedocumented in this encounter
--- OUTSIDE RECORDS SUMMARY | 2025-06-07 16:23 | XMS_ITS | Encounter Summary ---
Author Organization [employer] ([place], [place], [place], [place]) Address [address] [place] [address] Care Team Providers Care Fermenting Cellar Dropper Name Role Phone Unavailable Primary Care Provider Unavailabl e Encounter Details Date Type Department Care Team (Late st Contact Info) Description 06/30/2020 Transcribed Document [facility] [place] Family Medicine [address] [place] [address] ProviderJulio MD [address] [place] [address] 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 Tobacco Use Types Packs/Day Years Used Date Smoking Tobacco: Never Assessed Comments Unknown Sex and Gender Information Value Date Recorded Sex Assigned at Female 03/12/2022 2:43 PM CDT Legal Sex Female 5:44 PM CDT Gender Identity Female 03/12/2022 2:43 PM CDT Sexual Orientation Not on file documented as of this encounter Miscellaneous Notes * Cerner Conversion Note - Historical ProviderMD - 06/30/2020 2:52 PM CDT CR Abdomen 1 Vw Ordered: 06/29/2020 Auth (Verified) Reason for Exam: stone 06/30/2020 10:19 06/30/2020 14:52 (CATIA BARFIELD PA-INT) Reviewed by Provider, No further action required x1 documented in this encounter Plan of Treatment Not on file documented as of this encounter Visit Diagnoses Not on filedocumented in this encounter
--- OUTSIDE RECORDS SUMMARY | 2025-06-07 16:23 | XMS_ITS | Encounter Summary ---
Author Organization [employer] ([place], [place], [place], [place]) Address [address] [place] [address] Care Team Providers Care Warehouse Worker Name Role Phone Unavailable Primary Care Provider Unavailabl e Encounter Details Date Type Department Care Team (Late st Contact Info) Description 06/29/2020 Transcribed Document [facility] Radiology [address] [place] [id number] Patricia Messer MD [facility] Dept of Emergency Medicine [place] [id number] 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 Tobacco Use Types Packs/Day Years [...] Conversion Note - Patricia Messer MD - 06/29/2020 8:00 PM EDT Patient: OREN KIM Age: 34 years Sex: Female : 1985 Associated Diagnoses: Right ureteral stone Author: NEELIMA ABARCA, BLEACH LIQUOR MAKER-EMR Basic Information Time seen: Immediately upon arrival. History source: Patient. Arrival mode: Private vehicle. History limitation: None. Additional information: Chief Complaint from Nursing Triage Note : Chief Complaint 06/29/2020 18:03 EDT Chief Complaint Pt c/o R lower back pain. Pt also c/o bladder pain. Pt states she was seen in the ED 3 days ago, and the pain has been ongoing since then. . History of Present Illness The patient presents with flank pain. The onset was 3 days ago. The course/duration of symptoms is constant. The character of symptoms is achy and crampy. The degree at onset was moderate. The Location of pain at onset was right and flank. The Location of pain at present is right and flank. Radiating pain: right lower quadrant of the abdomen. The exacerbating factor is none. Therapy today: none. Risk factors consist of History of kidney stones, UTIs. Associated symptoms: denies nausea, denies vomiting, denies diarrhea, denies fever and denies chills. Patient is a 34-year-old female presents to the ER today with complaints of right flank pain is been present for approximately 3 days. Was seen at this facility 3 days ago and had a CT scan which revealed a 5 mm right UPJ stone that was moderately obstructing. Patient was sent home with antiemetics, and narcotic pain medications. Patient states that she is out of her pain medications and she is hurting again in the right flank. Denies any fever, nausea, vomiting, or diarrhea. Reports mild dysuria. History of kidney stones. Has not made an appointment with her urologist as of yet. Review of Systems Constitutional symptoms: No fever, no chills. Gastrointestinal symptoms: Abdominal pain, mild, right lower quadrant, no nausea, no vomiting, no diarrhea. Genitourinary symptoms: Dysuria, No hematuria, Additional review of systems information: All other [...] were documented.. Medications: (Selected) Inpatient Medications Ordered Normal Saline 1,000 mL: 250 mL/Hr, IntraVENous labetalol: 20 mg, IV Push, 1-Time promethazine: 12.5 mg, IV Push, 1-Time, PRN: Nausea/Vomiting Prescriptions Prescribed promethazine 25 mg oral tablet: 1 Tab, Oral, Q4H, for 5 Day(s), [...] Medical/ Family/ 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 Surgical history: Lithotripsy ([id number]).. Family history: No family history items have been selected or recorded.. Social history: Social & Psychosocial Habits Alcohol 02/24/2015 Alcohol Use History, Social Habits No 06/29/2020 Alcohol Use History, Social Habits No Substance Abuse 02/24/2015 Recreational Drug Use Last 12 Months No 06/29/2020 Recreational Drug Use History No Recreational Drug Use Last 12 Months No Tobacco 02/24/2015 Tobacco Use Within Last Twelve Months Snuff/Dip Packs/Tins Daily 0.5 06/29/2020 Smoking Status Never (less than 100 in l Smokeless Tobacco Use History Snuff/Dip . Physical Examination Vital Signs Vital Signs/Vital Measures 06/29/2020 18:03 EDT Systolic Blood Pressure 201 mmHg HI Diastolic Blood Pressure 93 mmHg HI Temperature Source Oral Temperature Mode Fahrenheit Temperature, Fahrenheit 97.8 Deg F Clinical Temperature, C 36.6 Deg C Peripheral Pulse Rate 98 bpm Respiratory Rate 20 Breaths/Min Oxygen Saturation 98 % Oxygen Therapy Mode Room air . Measurements 06/29/2020 18:03 EDT Height Source Estimated Height Entry Format [place] Height/Length, VIETNAMESE (ft) 5 ft Height/Length VIET[place]ESE 2 Inch CLINICALHEIGHT 157.48 cm [place] Body Weight 49.73 kg Weight Source, ED Critical estimated dosing weight Weight Entry Format [place] Weight Sammarinese lb 240 lb CLINICALWEIGHT 109.09 kg Body Surface Area (BSA) 2.07 m2 Body Mass Index 44 kg/m2 >HHI . Oxygen Saturation 06/29/2020 18:03 EDT Oxygen Saturation 98 % . General: Alert, no acute distress. Skin: Warm, dry. Neck: Supple. Cardiovascular: Regular rate and rhythm, Normal peripheral perfusion. Respiratory: Lungs are clear to auscultation, respirations are non-labored, breath sounds are equal. Gastrointestinal: Soft, Normal bowel sounds, Tenderness: Negative, Guarding: Negative, Rebound: Negative. Genitourinary: Moderate right CVA tenderness. Right flank. Neurological: Alert and oriented to person, place, time, and situation. Psychiatric: Cooperative, appropriate mood & affect. Medical Decision Making Radiology results: X-ray. Impression and Plan Diagnosis Right ureteral stone - Discharge, Emergency medicine, Medical Plan Condition: Stable. Disposition: Discharged Admit/Transfer/Discharge: Discharge (Order): Start: 06/29/2020 20:11 EDT, Discharge to: Home. Prescriptions: Prescription Drying Frame Operator Pharmacy: promethazine 25 mg oral tablet (Prescribe): 1 Tab, Oral, Q6H, PRN: as needed for nausea/vomiting, 12 Tab, 0 Refill(s) Percocet 5/325 oral tablet (Prescribe): 1 Tab, Oral, Q6H, PRN: for pain, 10 Tab, 0 Refill(s). Patient was given the following educational materials: Kidney Stones, [id number]. Follow up with: ; Return to Emergency Department Within As needed; BRYON TAVERAS Within 2 days. Counseled: Patient, Regarding diagnosis, Regarding diagnostic results, Regarding treatment plan, Regarding prescription, Patient indicated understanding of instructions. Total Time Total time: 45 min. documented in this encounter Plan of Treatment Not on file documented as of this encounter Visit Diagnoses Not on filedocumented in this encounter
--- OUTSIDE RECORDS SUMMARY | 2025-06-07 16:23 | XMS_ITS | Encounter Summary ---
Author Organization [employer] ([place], [place], [place], [place]) Address [address] [place] [address] Care Team Providers Care Business Systems Administrator Name Role Phone Unavailable Primary Care Provider Unavailabl e Encounter Details Date Type Department Care Team (Late st Contact Info) Description 09/11/2019 Transcribed Document [facility] [place] Family Medicine [address] [place] [address] ProviderJulio MD [address] [place] [address] Social History Tobacco Use Types [...] Note - Julio Van MD - 09/11/2019 5:09 PM FOUNDRY MELT SUPERVISOR [facility] [address] [place] [address] OREN KIM :1985 Visit Time:09/11/2019 Your Visit Summary Your Care Team Primary Provider: FRANKIE BANG Secondary Provider: Your Diagnosis Flank pain Pyelonephritis Medical Information You may obtain a copy [...] 2 to 3 days Where: [address] [facility] [address] i.Sec (1) Allergies most abx Keflex Toradol amoxicillin-clavulanate (SOA, SOA) cefaclor ciprofloxacin (HIVES, HIVES) codeine doxycycline (RASH/SOA, RASH/SOA) gatifloxacin midazolam nitrofurantoin (RASH/SOA, RASH/SOA) ondansetron sulfa drugs Immunizations This Visit No Immunizations Found Medications What How Much When Instructions Next Dose New clindamycin (clindamycin 300 mg oral capsule) 1 Capsule(s) Oral Two Times A Day Duration: 10 Day(s) Printed Prescription New HYDROmorphone [...] This Visit (last charted value for your 09/11/2019 visit) Urinalysis 09/11/2019 3:45 PM Ur RBC: 5-10 /HPF Urine Nitrite: Negative Urine Leukocyte Esterase: Trace Ur Epithelial Cells: 20-50 /HPF Urine Appearance: Slightly Cloudy Urine Glucose Dipstick: Negative Urine Blood Dipstick: Trace - Intact Urine Urobilinogen Dipstick: 0.2 EU/dL Urine Protein Dipstick: Trace Ur Bacteria: 2+ Urine Color: Yellow Ur WBC: 10-20 /HPF Urine Ketones Dipstick: Negative Ur Yeast: Trace Urine pH Dipstick: 6.0 -- Normal range between ( 6.0 and 8.0 ) Urine Bilirubin Dipstick: Negative Urine Specific [place]: 1.025 -- Normal range between ( 1.005 and 1.030 ) Urine Type.: U [employer] Education Materials Pyelonephritis, Adult Pyelonephritis is a [...] these instructions at home: Medicines ??? Take [id number] and prescription medicines only as told by [...] 08/30/2006 Document Revised: 02/04/2017 Document Reviewed: 12/23/2015 [employer] Patient Education ?? 2019 [employer] Emergency Awareness and Preventative Care STROKE [...] Assistance with quitting is available by contacting 3-084-SPVH-NOW. This is a free resource providing counseling, [...] was given the opportunity to ask questions. Patient/Personnel Manager Name: Patient/Personnel Manager Signature: Relationship to Patient: Clinician/Hospital Personnel Manager Signature: Please Provide a Telephone Number Where You Can Be Reached: Is it Permissible To Leave a Message? Date: documented in this encounter Plan of Treatment Not on file documented as of this encounter Visit Diagnoses Not on filedocumented in this encounter
--- OUTSIDE RECORDS SUMMARY | 2025-06-07 16:23 | XMS_ITS | Encounter Summary ---
Author Organization [employer] ([place], [place], [place], [place]) Address [address] [place] [address] Care Team Providers Care Pinked Edge Sewing Machine Operator Name Role Phone Unavailable Primary Care Provider Unavailabl e Encounter Details Date Type Department Care Team (Late st Contact Info) Description 06/24/2020 Transcribed Document [facility] [place] Family Medicine [address] [place] [address] ProviderJulio MD [address] [place] [address] Social History Tobacco Use Types Packs/Day Years Used Date Smoking Tobacco: Never Assessed Comments Unknown Sex and Gender Information Value Date Recorded Sex Assigned at Female 03/12/2022 2:43 PM CDT Legal Sex Female 5:44 PM CDT Gender Identity Female 03/12/2022 2:43 PM CDT Sexual Orientation Not on file documented as of this encounter Miscellaneous Notes * Cerner Conversion Note - Historical ProviderMD - 06/24/2020 4:50 PM CDT Electronically signed by Eron [facility] Conversion Informatics Educator Vijay at 12/29/2022 4:14 PM CDT documented in this encounter Plan of Treatment Not on file documented as of this encounter Visit Diagnoses Not on filedocumented in this encounter
--- OUTSIDE RECORDS SUMMARY | 2025-06-07 16:23 | XMS_ITS | Encounter Summary ---
Author Organization [employer] ([place], [place], [place], [place]) Address [address] [place] [address] Care Team Providers Care Concrete Block Mason Name Role Phone Unavailable Primary Care Provider Unavailabl e Encounter Details Date Type Department Care Team (Late st Contact Info) Description 06/29/2020 Transcribed Document [facility] [place] Family Medicine [address] [place] [address] ProviderJulio MD [address] [place] [address] Social History Tobacco Use Types Packs/Day Years [...] Van MD - 06/29/2020 5:[address] [place] Suicide Severity Rating Scale (C-SSRS) Entered On: 06/29/2020 18:10 EDT Performed On: 06/29/2020 18:10 EDT by Ava Bains Rn [place] Suicide Severity Rating Scale (C-SSRS) CSSRS Past Month Wish to be : No CSSRS Past Month Suicidal Thoughts : No CSSRS Lifetime Suicide Behavior : No Suicide Severity Rating Score : 0 Suicide Severity Rating : No Additional Care Required at this time Ava Bains Rn - 06/29/2020 18:10 EDT Electronically signed by Eron [facility] Conversion Protocol Manager Cerner at 12/29/2022 4:26 PM CDT documented in this encounter Plan of Treatment Not on file documented as of this encounter Visit Diagnoses Not on filedocumented in this encounter
--- OUTSIDE RECORDS SUMMARY | 2025-06-07 16:23 | XMS_ITS | Encounter Summary ---
Author Organization [employer] ([place], [place], [place], [place]) Address [address] [place] [address] Care Team Providers Care Distribution Estimator Name Role Phone Unavailable Primary Care Provider Unavailabl e Encounter Details Date Type Department Care Team (Late st Contact Info) Description 09/11/2019 Transcribed Document [facility] [place] [address] [place] [address] ProviderJluio MD [address] [place] [address] Social History Tobacco Use Types Packs/Day Years Used Date Smoking Tobacco: Never Assessed Comments Unknown Sex and Gender Information Value Date Recorded Sex Assigned at Female 03/12/2022 2:43 PM CDT Legal Sex Female 5:44 PM CDT Gender Identity Female 03/12/2022 2:43 PM CDT Sexual Orientation Not on file documented as of this encounter Miscellaneous Notes * Cerner Conversion Note - Julio ProviderMD - 09/11/2019 8:03 PM CREDIT RATING CHECKER [place] [facility] [address] [place] [address] PERSON INFORMATION Name OREN KIM Age 33 Years 1985 Sex Female Language Croatian PCP NICOLE ERNST APRN-PRESLEY Marital Status Single Med Service Emergency Medicine Acct# Arrival 09/11/2019 13:52:00 Visit Reason Flank pain; PT STATES KIDNEY PAIN Acuity 3 - Urgent LOS 000 06:11 Depart Date: 09/11/19 05:11 PM Address: [address] [place] [address] Comment: PROVIDER INFORMATION Provider Role Assigned Unassigned SANAM BANG MD-EMR ED Physician 09/11/2019 14:29:00 JEANIE WILSON, CLIENT DEVELOPMENT MANAGER Nurse 09/11/2019 15:48:47 DIAGNOSIS Pyelonephritis PHYS DOC NOTES VITALS INFORMATION Vital Sign Triage Latest Temp Source Oral Oral Temp Mode Fahrenheit Fahrenheit Temp Fahrenheit 99 Deg F 99 Deg F Temp Celsius 02 Sat 98 % 98 % Respiratory Rate 18 Breaths/Min 18 Breaths/Min Peripheral Pulse Rate 95 bpm 95 bpm Apical Heart Rate Blood Pressure 180 mmHg / 118 mmHg 180 mmHg / 118 mmHg Comment: MEDICAL INFORMATION Allergy Info: Toradol; Keflex; sulfa drugs; gatifloxacin; ondansetron; midazolam; nitrofurantoin; amoxicillin-clavulanate; cefaclor; doxycycline; codeine; ciprofloxacin; most abx Medications: Comment: DISCHARGE INFORMATION Discharge Disposition: Home Discharge Location: PATIENT EDUCATION INFORMATION Instructions: Pyelonephritis, Adult Follow up: With: Address: When: NICOLE ERNST [address] [facility] [address] [place] [address] [facility] () Within 2 to 3 days Comment: documented in this encounter Plan of Treatment Not on file documented as of this encounter Visit Diagnoses Not on filedocumented in this encounter
--- OUTSIDE RECORDS SUMMARY | 2025-06-07 16:23 | XMS_ITS | Encounter Summary ---
Author Organization [employer] ([place], [place], [place], [place]) Address [address] [place] [address] Care Team Providers Care Hostel Manager Name Role Phone Unavailable Primary Care Provider Unavailabl e Encounter Details Date Type Department Care Team (Late st Contact Info) Description 06/29/2020 Transcribed Document [facility] [place] [address] [place] [address] ProviderJulio MD [address] [place] [address] Social History Tobacco Use Types Packs/Day Years [...] MD - 06/29/2020 5:57 PM CDT ED Triage Entered On: 06/29/2020 18:09 EDT Performed On: 06/29/2020 18:03 EDT by Ava Bains Rn ED Triage Across the Room Chief Complaint : Pt c/o R lower back pain. Pt also c/o bladder pain. Pt states she was seen in the ED 3 days ago, and the pain has been ongoing since then. Triage Date/Time : 06/29/2020 18:03 EDT Ava Bains Rn - 06/29/2020 18:03 EDT DCP GENERIC CODE Tracking Acuity : 4 - Non - Urgent Tracking Group : [facility] ED Sandy Ava Bains Rn - 06/29/2020 18:03 EDT Mode of Arrival : Ambulatory Transported to ED by : Private vehicle To Room Via : Ambulate Accompanied By : Friend ED Vital Signs : Document Height & Weight : Document ED Allergies : Document ED Reason for Visit : Document Tetanus Immunization : Less than 5 years Ava Bains Rn - 06/29/2020 18:03 EDT Infectious Disease History Has the patient ever been tested for COVID-19? : Yes, Patient stated results Negative Date of COVID-19 test known? : Yes Date of COVID-19 Test : 05/30/2020 EDT Does patient have symptoms of COVID-19? : No COVID19 Screening : No Experiencing Infectious Disease Symptoms : No symptoms Physical contact outside [place] in the last 30 days : No Infectious Disease History : Chicken pox/Shingles, Influenza Tuberculosis Symptoms : None Ava Bains Rn - 06/29/2020 18:03 EDT Vital Signs ED Temperature Source : Oral Temperature Mode : Fahrenheit Temperature, Fahrenheit : 97.8 Deg F Clinical Temperature, C : 36.6 Deg C Oxygen Therapy Mode : Room air Peripheral Pulse Rate : 98 bpm Respiratory Rate : 20 Breaths/Min Systolic Blood Pressure : 201 mmHg (HI) Diastolic Blood Pressure : 93 mmHg (HI) Oxygen Saturation : 98 % Ava Bains Rn - 06/29/2020 18:03 EDT Allergy (As Of: 06/29/2020 18:09:54 EDT) Allergies (Active) most abx Estimated Onset Date: Unspecified ; Created By: MANPREET Magdaleno; Reaction Status: Active ; Category: Drug ; Substance: most abx ; Type: Allergy ; Updated By: MANPREET Magdaleno; Reviewed Date: 06/29/2020 18:06 EDT amoxicillin-clavulanate Estimated Onset Date: Unspecified ; Reactions: SOA, SOA ; Created By: MANPREET Magdaleno; Reaction Status: Active ; Category: Drug ; Substance: amoxicillin-clavulanate ; Type: Allergy ; Updated By: MANPREET Magdaleno; Reviewed Date: 06/29/2020 18:06 EDT cefaclor Estimated Onset Date: Unspecified ; Created By: MANPREET Magdaleno; Reaction Status: Active ; Substance: cefaclor ; Updated By: MANPREET Magdaleno; Reviewed Date: 06/29/2020 18:06 EDT ciprofloxacin Estimated Onset Date: Unspecified ; Reactions: HIVES, HIVES ; Created By: MANPREET Magdaleno; Reaction Status: Active ; Substance: ciprofloxacin ; Updated By: MANPREET Magdaleno; Reviewed Date: 06/29/2020 18:06 EDT codeine Estimated Onset Date: Unspecified ; Created By: LORE JARQUIN RN; Reaction Status: Active ; Category: Drug ; Substance: codeine ; Type: Allergy ; Updated By: LORE JARQUIN RN; Reviewed Date: 06/29/2020 18:06 EDT doxycycline Estimated Onset Date: Unspecified ; Reactions: RASH/SOA, RASH/SOA ; Created By: MANPREET Magdaleno; Reaction Status: Active ; Category: Drug ; Substance: doxycycline ; Type: Allergy ; Updated By: MANPREET Magdaleno; Reviewed Date: 06/29/2020 18:06 EDT gatifloxacin Estimated Onset Date: Unspecified ; Created By: MANPREET Magdaleno; Reaction Status: Active ; Substance: gatifloxacin ; Updated By: MANPREET Magdaleno; Reviewed Date: 06/29/2020 18:06 EDT Keflex Estimated Onset Date: Unspecified ; Created By: Cathi Green RN; Reaction Status: Active ; Category: Drug ; Substance: Keflex ; Type: Allergy ; Updated By: Cathi Green RN; Reviewed Date: 06/29/2020 18:06 EDT midazolam Estimated Onset Date: Unspecified ; Created By: MANPREET Magdaleno; Reaction Status: Active ; Category: Drug ; Substance: midazolam ; Type: Allergy ; Updated By: MANPREET Magdaleno; Reviewed Date: 06/29/2020 18:06 EDT nitrofurantoin Estimated Onset Date: Unspecified ; Reactions: RASH/SOA, RASH/SOA ; Created By: MANPREET Magdaleno; Reaction Status: Active ; Category: Drug ; Substance: nitrofurantoin ; Type: Allergy ; Updated By: MANPREET Magdaleno; Reviewed Date: 06/29/2020 18:06 EDT ondansetron Estimated Onset Date: Unspecified ; Created By: MANPREET Magdaleno; Reaction Status: Active ; Category: Drug ; Substance: ondansetron ; Type: Allergy ; Updated By: MANPREET Magdaleno; Reviewed Date: 06/29/2020 18:06 EDT sulfa drugs Estimated Onset Date: Unspecified ; Created By: MANPREET Magdaleno; Reaction Status: Active ; Substance: sulfa drugs ; Updated By: MANPREET Magdaleno; Reviewed Date: 06/29/2020 18:06 EDT Toradol Estimated Onset Date: Unspecified ; Created By: Cathi Green RN; Reaction Status: Active ; Category: Drug ; Substance: Toradol ; Type: Allergy ; Updated By: Cathi Green RN; Reviewed Date: 06/29/2020 18:06 EDT Diagnosis Control ED (As Of: 06/29/2020 18:09:54 EDT) Problems(Active) Endometriosis (SNOMED CT :340099917 ) Name of Problem: Endometriosis ; Recorder: Farzaneh Rico RN; Confirmation: Confirmed ; Classification: Medical ; Code: [id number] ; Contributor System: [employer] ; Last Updated: 11/16/2019 4:18 EST ; Life Cycle Date: 11/16/2019 ; Life Cycle Status: Active ; Vocabulary: SNOMED CT Kidney stones (SNOMED CT :240317606 ) Name of Problem: Kidney stones ; Recorder: MANFRED CAI PA; Confirmation: Confirmed ; Classification: Medical ; Code: [id number] ; Contributor System: [employer] ; Last Updated: 10/24/2015 13:26 EST ; Life Cycle Date: 10/24/2015 ; Life Cycle Status: Active ; Responsible Provider: MANFRED CAI PA; Vocabulary: SNOMED CT PTSD (post-traumatic stress disorder) (SNOMED CT :93221367 ) Name of Problem: PTSD (post-traumatic stress disorder) ; Recorder: MANFRED CAI PA; Confirmation: Confirmed ; Classification: Medical ; Code: [id number] ; Contributor System: [employer] ; Last Updated: 10/24/2015 13:26 EST ; Life Cycle Date: 10/24/2015 ; Life Cycle Status: Active ; Responsible Provider: MANFRED CAI PA; Vocabulary: SNOMED CT Diagnoses(Active) Back pain Date: 06/29/2020 ; Diagnosis Type: Reason For Visit ; Confirmation: Complaint of ; Clinical Dx: Back pain ; Classification: Medical ; Clinical Service: Emergency medicine ; Code: PNED ; Probability: 0 ; Diagnosis Code: [id number] ED Height and Weight Height Source : Estimated Height Entry Format : [place] Height, Feet : 5 ft(Converted to: 152 cm, 60 Inch) Height, Inches : 2 Inch(Converted to: 0 ft 2 Inch, 5.08 cm) Clinical Height : 157.48 cm Weight Source, ED : Critical estimated dosing weight Weight Entry Format : [place] Weight, Pounds : 240 lb Clinical Dosing Weight : 109.09 kg Body Surface Area (BSA) : 2.07 m2 Body Mass Index : 44 kg/m2 (>HHI) Lead Body Weight (IBW) : 49.73 kg Ava Bains Rn - 06/29/2020 18:03 EDT Electronically signed by Rachel Littlejohn Conversion Water Resources Technical Officer Cerner at 12/29/2022 4:13 PM CDT documented in this encounter Plan of Treatment Not on file documented as of this encounter Visit Diagnoses Not on filedocumented in this encounter
--- OUTSIDE RECORDS SUMMARY | 2025-06-07 16:23 | XMS_ITS | Encounter Summary ---
Author Organization [employer] ([place], [place], [place], [place]) Address [address] [place] [address] Care Team Providers Care Dress Cutter Name Role Phone Unavailable Primary Care Provider Unavailabl e Encounter Details Date Type Department Care Team (Late st Contact Info) Description 06/29/2020 Transcribed Document [facility] [place] Family Medicine [address] [place] [address] ProviderJulio MD [address] [place] [address] Social History Tobacco Use Types Packs/Day Years [...] Note - Julio Van MD - 06/29/2020 8:35 PM CDT ED Discharge Vital Signs Entered On: 06/29/2020 21:30 EDT Performed On: 06/29/2020 20:35 EDT by Cydney Dunn RN ED Discharge Vital Signs Peripheral Pulse Rate : 76 bpm Respiratory Rate : 20 Breaths/Min Systolic Blood Pressure : 169 mmHg (HI) Diastolic Blood Pressure : 81 mmHg Oxygen Saturation : 97 % Oxygen Therapy Mode : Room air Cydney Dunn RN - 06/29/2020 21:30 EDT Electronically signed by Eron [facility] Conversion Dumb Waiter Operator Cerner at 12/29/2022 4:12 PM CDT documented in this encounter Plan of Treatment Not on file documented as of this encounter Visit Diagnoses Not on filedocumented in this encounter
--- OUTSIDE RECORDS SUMMARY | 2025-06-07 16:24 | XMS_ITS | Encounter Summary ---
Author Organization [employer] ([place], [place], [place], [place]) Address [address] [place] [address] Care Team Providers Care Belly Packer Name Role Phone Unavailable Primary Care Provider Unavailabl e Encounter Details Date Type Department Care Team (Late st Contact Info) Description 08/31/2019 Transcribed Document [facility] [place] [address] [place] [address] ProviderJulio MD [address] [place], [place] [address] Social History Tobacco Use Types Packs/Day Years Used Date Smoking Tobacco: Never Assessed Comments Unknown Sex and Gender Information Value Date Recorded Sex Assigned at Female 03/12/2022 2:43 PM CDT Legal Sex Female 5:44 PM CDT Gender Identity Female 03/12/2022 2:43 PM CDT Sexual Orientation Not on file documented as of this encounter Miscellaneous Notes * Cerner Conversion Note - Julio ProviderMD - 08/31/2019 4:55 PM ROENTGENOLOGY TEACHER [facility] [address] [place] [address] PERSON INFORMATION Name OREN KIM Age 33 Years 1985 Sex Female Language Maltese PCP NICOLE ERNST APRN-PRESLEY Marital Status Single Med Service Emergency Medicine Acct# Arrival 08/31/2019 16:04:00 Visit Reason Dysuria; Back pain; PT STATES LT SIDE KIDNEY STONE LAST WK,PAIN WORSE,DRY HEAVE Acuity 3 - Urgent LOS 000 00:51 Depart Date: 08/31/19 04:52 PM Address: [address] [place] [address] Comment: PROVIDER INFORMATION Provider Role Assigned Unassigned SANAM BANG MD-EMR ED Physician 08/31/2019 16:13:21 Ana Lopez, SENIOR DIRECTOR MARKETING Nurse 08/31/2019 16:24:15 DIAGNOSIS UTI symptoms PHYS DOC NOTES VITALS INFORMATION Vital Sign Triage Latest Temp Source Oral Oral Temp Mode Fahrenheit Fahrenheit Temp Fahrenheit 98.1 Deg F 98.1 Deg F Temp Celsius 02 Sat 96 % 96 % Respiratory Rate 20 Breaths/Min 20 Breaths/Min Peripheral Pulse Rate 114 bpm 114 bpm Apical Heart Rate Blood Pressure 179 mmHg / 104 mmHg 179 mmHg / 104 mmHg Comment: MEDICAL INFORMATION Allergy Info: Toradol; Keflex; sulfa drugs; gatifloxacin; ondansetron; midazolam; nitrofurantoin; amoxicillin-clavulanate; cefaclor; doxycycline; codeine; ciprofloxacin; most abx Medications: Comment: DISCHARGE INFORMATION Discharge Disposition: Home Discharge Location: PATIENT EDUCATION INFORMATION Instructions: Urinary Tract Infection, Adult; Renal Colic Follow up: With: Address: When: NICOLE ERNST [address] [facility] [address] [place] [address] [facility] ([employer] Within 2 to 3 days Comment: Electronically signed by Rachel Littlejohn Conversion Director Of Graduate Admissions Cerner at 12/29/2022 4:27 PM CDT documented in this encounter Plan of Treatment Not on file documented as of this encounter Visit Diagnoses Not on filedocumented in this encounter
--- OUTSIDE RECORDS SUMMARY | 2025-06-07 16:24 | XMS_ITS | Encounter Summary ---
Author Organization [employer] ([place], [place], [place], [place]) Address [address] [place] [address] Care Team Providers Care Supplier Diversity Director Name Role Phone Unavailable Primary Care Provider Unavailabl e Encounter Details Date Type Department Care Team (Late st Contact Info) Description 09/02/2019 Transcribed Document [facility] [place] [address] [place] [address] ProviderJulio MD [address] [place] [address] Social History Tobacco Use Types Packs/Day Years Used Date Smoking Tobacco: Never Assessed Comments Unknown Sex and Gender Information Value Date Recorded Sex Assigned at Female 03/12/2022 2:43 PM CDT Legal Sex Female 5:44 PM CDT Gender Identity Female 03/12/2022 2:43 PM CDT Sexual Orientation Not on file documented as of this encounter Miscellaneous Notes * Cerner Conversion Note - Historical ProviderMD - 09/02/2019 11:32 AM SOIL CHEMIST Urine Culture Collected: 08/31/2019 Complete Body site: Specimen Type: U CleanCatch 09/02/2019 09:38 09/02/2019 11:32 (YARA CENTENO PA-C) Reviewed by Provider, No further action required documented in this encounter Plan of Treatment Not on file documented as of this encounter Visit Diagnoses Not on filedocumented in this encounter
--- OUTSIDE RECORDS SUMMARY | 2025-06-07 16:24 | XMS_ITS | Encounter Summary ---
Author Organization [employer] ([place], [place], [place], [place]) Address [address] [place] [address] Care Team Providers Care Student Assistance Counselor Name Role Phone Unavailable Primary Care Provider Unavailabl e Encounter Details Date Type Department Care Team (Late st Contact Info) Description 09/11/2019 Transcribed Document [facility] [place] [address] [place] [address] ProviderJulio MD [address] [place] [address] Social History Tobacco Use Types Packs/Day Years Used Date Smoking Tobacco: Never Assessed Comments Unknown Sex and Gender Information Value Date Recorded Sex Assigned at Female 03/12/2022 2:43 PM CDT Legal Sex Female 5:44 PM CDT Gender Identity Female 03/12/2022 2:43 PM CDT Sexual Orientation Not on file documented as of this encounter Miscellaneous Notes * Cerner Conversion Note - Historical ProviderMD - 09/11/2019 4:49 PM RESTAURANT AREA MANAGER Patient: OREN KIM Age: 33 years Sex: Female : 1985 Associated Diagnoses: Pyelonephritis Author: SANAM BANG MD-EMR Basic Information Additional information: Chief Complaint from Nursing Triage Note : Chief Complaint 09/11/2019 14:03 EST Chief Complaint Kidney stone x 3 weeks. Vomiting today. Left side. Pt dx'd with this stone here. . History of Present Illness The patient presents with flank pain. The onset was 3 weeks ago. The course/duration of symptoms is constant and fluctuating in intensity. The character of symptoms is dull. The degree at onset was moderate. The Location of pain at onset was left and flank. The degree at present is severe. The Location of pain at present is left and flank. Radiating pain: none. The exacerbating factor is none. The relieving factor is none. Therapy today: none. Risk factors consist of obesity. Associated symptoms: nausea, chills and denies fever. Review of Systems Constitutional symptoms: Negative except [...] Medical/ Family/ Social History Surgical history: Lithotripsy ([id number]).. Family history: No family history items have been selected or recorded.. Social history: Social & Psychosocial Habits Alcohol 02/24/2015 Alcohol Use History, Social Habits No Substance Abuse 02/24/2015 Recreational Drug Use Last 12 Months No Tobacco 02/24/2015 Tobacco Use Within Last Twelve Months Snuff/Dip Packs/Tins Daily 0.5 . Physical Examination Vital Signs Vital Signs/Vital Measures 09/11/2019 14:03 EST Systolic Blood Pressure 180 mmHg HI Diastolic Blood Pressure 118 mmHg HI Temperature Source Oral Temperature Mode Fahrenheit Temperature, Fahrenheit 99 Deg F Clinical Temperature, C 37.2 Deg C Peripheral Pulse Rate 95 bpm Respiratory Rate 18 Breaths/Min Oxygen Saturation 98 % Oxygen Therapy Mode Room air . Measurements 09/11/2019 14:03 EST Height Source Stated Height Entry Format [place] Height/Length, GABONESE (ft) 5 ft Height/Length GABONESE 2 Inch CLINICALHEIGHT 157.48 cm [place] Body Weight 49.73 kg Weight Source, ED Critical estimated dosing weight Weight Entry Format [place] Weight Sami lb 220 lb CLINICALWEIGHT 100 kg Body Surface Area (BSA) 1.99 m2 Body Mass Index 40.3 kg/m2 >HHI . Oxygen Saturation 09/11/2019 14:03 EST Oxygen Saturation 98 % . General: Alert, [...] Non distended, Normal bowel sounds, No organomegaly. Musculoskeletal: Normal ROM. Neurological: Alert and oriented to person, place, time, and situation, No focal neurological deficit observed, CN II-XII intact, normal sensory observed, normal motor observed, normal speech observed, normal coordination observed. Lymphatics: No lymphadenopathy. Medical Decision Making Differential Diagnosis: Abdominal pain, renal stone, ureteral stone, pyelonephritis. Radiology results: Computed tomography, discussed with radiologist. Impression and Plan Diagnosis Pyelonephritis - Discharge, Emergency medicine, Medical Plan Condition: Stable. Disposition: Discharged Admit/Transfer/Discharge: Discharge (Order): Start: 09/11/2019 16:51 EST, Discharge to: Home. Prescriptions: Prescription Facilities Manager Pharmacy: Dilaudid 2 mg oral tablet (Prescribe): 1 Tab, Oral, Q4H, for 2 Day(s), PRN: as needed for pain, 12 Tab, 0 Refill(s) clindamycin 300 mg oral capsule (Prescribe): 1 Cap, Oral, BID, for 10 Day(s), 20 Cap, 0 Refill(s). Patient was given the following educational materials: Pyelonephritis, Adult. Limitations: Limited activity. Follow up with: NICOLE ERNST Within 2 to 3 days. Counseled: Patient, Regarding diagnosis, Regarding diagnostic results, Regarding treatment plan, Regarding prescription, Patient indicated understanding of instructions. Electronically signed by Rachel Littlejohn Conversion Agriculture Science Teacher Cerner at 12/29/2022 4:23 PM CDT documented in this encounter Plan of Treatment Not on file documented as of this encounter Visit Diagnoses Not on filedocumented in this encounter
--- OUTSIDE RECORDS SUMMARY | 2025-06-07 16:24 | XMS_ITS | Encounter Summary ---
Author Organization [employer] ([place], [place], [place], [place]) Address [address] [place] [address] Care Team Providers Care Transmission Tester Name Role Phone Unavailable Primary Care Provider Unavailabl e Encounter Details Date Type Department Care Team (Late st Contact Info) Description 09/11/2019 Transcribed Document [facility] [place] [address] [place] [address] ProviderJulio MD [address] [place] [address] Social History Tobacco Use Types Packs/Day Years [...] Conversion Note - Historical ProviderMD - 09/11/2019 4:55 PM HEMATOLOGY NURSE EDUCATOR Electronically signed by Eron [facility] Conversion Cold Work Operator Cerner at 12/29/2022 4:25 PM CDT documented in this encounter Plan of Treatment Not on file documented as of this encounter Visit Diagnoses Not on filedocumented in this encounter
--- OUTSIDE RECORDS SUMMARY | 2025-06-07 16:24 | XMS_ITS | Encounter Summary ---
Author Organization [employer] ([place], [place], [place], [place]) Address [address] [place] [address] Care Team Providers Care Sap Bw Developer Name Role Phone Unavailable Primary Care Provider Unavailabl e Encounter Details Date Type Department Care Team (Late st Contact Info) Description 09/13/2019 Transcribed Document [facility] [place] [facility] [place] [address] [place] [address] ProviderJulio MD [address] [place] [address] Social History Tobacco Use Types Packs/Day Years Used Date Smoking Tobacco: Never Assessed Comments Unknown Sex and Gender Information Value Date Recorded Sex Assigned at Female 03/12/2022 2:43 PM CDT Legal Sex Female 5:44 PM CDT Gender Identity Female 03/12/2022 2:43 PM CDT Sexual Orientation Not on file documented as of this encounter Miscellaneous Notes * Cerner Conversion Note - Historical ProviderMD - 09/13/2019 11:32 AM OVERLOCK ELASTIC ATTACHER Urine Culture Collected: 09/11/2019 Complete Body site: Specimen Type: U CleanCatch 09/13/2019 09:01 09/13/2019 11:32 (YARA CENTENO PA-C) Reviewed by Provider, No further action required documented in this encounter Plan of Treatment Not on file documented as of this encounter Visit Diagnoses Not on filedocumented in this encounter
--- OUTSIDE RECORDS SUMMARY | 2025-06-07 16:24 | XMS_ITS | Encounter Summary ---
Author Organization [employer] ([place], [place], [place], [place]) Address [address] [place] [address] Care Team Providers Care Housesmith Name Role Phone Unavailable Primary Care Provider Unavailabl e Encounter Details Date Type Department Care Team (Late st Contact Info) Description 09/11/2019 Transcribed Document [facility] [place] Family [place] [address] [place] [address] ProviderJulio MD [address] [place] [address] Social History Tobacco Use Types Packs/Day Years [...] Note - Julio Van MD - 09/11/2019 5:11 PM EPIC AMBULATORY ANALYST ED Discharge Entered On: 09/11/2019 20:02 EST Performed On: 09/11/2019 17:11 EST by DIDI DEL CID, molding utility worker Process Patient Disposition : Discharge Personal Belongings With Patient : Yes Patient Education Completed : Yes Teaching Evaluation : Verbalizes understanding Link to Valuables and Belongings form : No IV Discontinued : Not applicable Nursing Documentation Completed : Yes DIDI DEL CID, RN - 09/11/2019 20:01 EST ED Discharge Discharge To : Home with ambulatory/outpatient follow-up Mode Of Departure : Ambulatory Accompanied By : Unaccompanied Discharge Instructions Reviewed With, Opportunity For Questions Given : Patient Prescriptions Given to Patient : Yes Number of Prescriptions Given : 2 DIDI DEL CID RN - 09/11/2019 20:01 EST Electronically signed by Eron, [facility] Conversion Sulfur Chloride Operator Cerner at 12/29/2022 4:22 PM CDT documented in this encounter Plan of Treatment Not on file documented as of this encounter Visit Diagnoses Not on filedocumented in this encounter
--- OUTSIDE RECORDS SUMMARY | 2025-06-07 16:24 | XMS_ITS | Clinical Summary ---
Author Organization [employer] ([place], [place], [place], [place]) Address [address] [place] [address] Care Team Providers Care Decorative Engraver Name Role Phone Unavailable Primary Care Provider [...] Date Jameson rded Speak language other than Turkish at home Not on file 10/01/2023 Want [...] 11/28/2022 5:26 PM EDT Plan of Treatment Health Maintenance Due Date Last Done Comments Depression Screening (12+) 1997 Tobacco Cessation Counseling and Screening (12+) 1997 HIV Screening 2000 Hepatitis C Screening 2003 DTAP/TDAP/TD VACCINES (1 - Tdap) 2004 Pap Smear 2006 Lipid Panel 05/08/2021 05/08/2018 COVID-19 VACCINE (3 - 2024-2 6 season) 2025 01/08/2021, 12/11/2020 Influenza Vaccine (#1) 2025 9, 06/11/2018 Pneumococcal Vaccine: 0-49 Years Aged Out No longer eligible b ased on patient's age to complete this topic Insurance [employer] [facility] Member Subscriber Plan / Payer (Ef fective 2022-Present) Name:Юлия Kim Relation to Subscriber:Self Name:Юлия Kim Payer ID:Not on file Group ID:[id number] Type:Not on file Address: [address]
--- NOTE | 2025-06-07 16:26 | ED_ITS ---
<Statement entered by Sanju Dunaway MD - 06/08/25 02:20> I was consulted by the ADELINA, and we discussed the complexity of the problems being addressed. I approve the treatment and management plan for this patient's care in the emergency department, thus performing a substantive portion of the medical decision making. Sanju Dunaway MD Discharge Plan Disposition Patient Disposition: Home, Self-Care Prescriptions Prescriptions: No Action promethazine-DM 6.25-15 mg/5 mL syrup 5 ml PO Q4-6H PRN (Reason: cough) Qty: 118 0RF hydrochlorothiazide 25 mg tablet 25 mg PO QAM Qty: 90 3RF levofloxacin 750 mg tablet 750 mg PO DAILY 5 Days Qty: 5 0RF carvedilol 12.5 mg Tablet 12.5 mg PO BID 30 Days Qty: 60 0RF tamsulosin 0.4 mg Capsule 0.4 mg PO HS 30 Days Qty: 30 0RF hydrocodone-acetaminophen 5-325 mg Tablet 1 tab PO Q4HP PRN (Reason: Severe Pain (7-10)) Qty: 9 0RF Referrals Follow up/Referrals: Brooklyn Chandler APRN [Primary Care Provider, Family Practice] - See instructions Activity Restrictions/Add. Instructions Additional Instructions/Restrictions: Please call your PCP tomorrow for further treatment and management of pain. We have not found a definitive answer for your pain however gastritis does cause abdominal pain. Return to ED for any worsening pain or additional problems or concerns. Clinical Impressions Clinical Impression: Chronic UTI, Kidney stone, Gastritis Instructions Patient Instructions: DI for Gastritis, DI for Acute Abdominal Pain Print Language Print Language: Khmer Discharge ED Provider: Sanju Dunaway General Adult HPI General Chief complaint: Abdominal Pain Stated complaint: stomach pain, nausea, diarrhea Time Seen by Provider: 06/07/25 16:06 History of Present Illness HPI narrative: 39-year-old female presents to the ED today for complaint of left-sided abdominal pain that moved to her back. She has pain with urination. She did see [place] [facility] last night and was told that she did not have a kidney stone but she feels like she has 1 or is passing 1 at this time. Patient has nausea but no vomiting. She was also diagnosed with a breast mass. She has not had a mammogram. She says that she just has never had 1 because she has not 48. She said that [facility] put her on Macrobid but she never has good luck with Macrobid she says that she usually needs Levaquin. She denies fevers but says she always has hot flashes and she can never tell the difference between hot flashes and fevers. Related Data Previous Rx's ?Medication ?Instructions ?Recorded carvedilol 12.5 mg tablet 12.5 mg PO BID 30 days #60 t abs 01/15/25 hydrocodone 5 mg-acetaminophen 325 1 tab PO Q4HP PRN S evere Pain 01/15/25 mg tablet (7-10) #9 tabs tamsulosin 0.4 mg capsule 0.4 mg PO HS 30 days #30 cap s 01/15/25 hydrochlorothiazide 25 mg tablet 25 mg PO QAM #90 tabs 02/01/25 promethazine-DM 6.25 mg-15 mg/5 mL 5 ml PO Q4-6H PRN c ough #118 mL 02/01/25 oral syrup levofloxacin 750 mg tablet 750 mg PO DAILY 5 days #5 t abs 02/09/25 Allergies Allergy/AdvReac Type Severity Reaction Status Date / Time cefepime Allergy Severe Anaphylaxis Verified 02/01/25 14:15 codeine (CODEINE) Allergy Severe BLEEDING Verified 02/01/25 14:15 OF EYES AND NOSE ibuprofen Allergy Severe face Verified 02/01/25 14:15 swelling ketorolac (From TORADOL) Allergy Severe face Verified 02/01/25 14:15 swelling midazolam (From VERSED) Allergy Severe Anaphylaxis Verified 02/01/25 14:15 Penicillins Allergy Severe Hives Verified 02/01/25 14:15 sulfamethoxazole (From Allergy Severe Unknown Verified 02/01/25 14:15 BACTRIM) allergy reaction tramadol Allergy Severe face Verified 02/01/25 14:15 swelling trimethoprim (From BACTRIM) Allergy Severe Unknown Verified 02/01/25 14:15 allergy reaction aztreonam (AZTREONAM) Allergy Mild NA-NAUSEA/V Verified 02/01/25 14:15 OMITING gatifloxacin (From TEQUIN) Allergy Mild tremors Verified 02/01/25 14:15 cefaclor (CEFACLOR) Allergy Unknown Unknown Verified 02/01/25 14:15 allergy reaction doxycycline (DOXYCYCLINE) Allergy Unknown Hives Verified 02/01/25 14:15 [facility] Disclaimer: The information contained in this section may have been updated after the patient was seen, as this information can be updated by other users. 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 (Updated 06/07/25 @ 19:49 by Paola Chaney (ED), EQUINE BREEDER) Hypertension Infection associated with ureteral stent Port-A-Cath in place Abnormal urinalysis Sepsis Axillary adenopathy Morbid obesity with BMI of 40.0-44.9, adult Chews tobacco Chest pain Lesion of liver greater than 1 cm in diameter Pyelonephritis Diverticulitis Puncture wound of hand, left Elevated serum hCG in female, not Hypokalemia Pyelonephritis Urolithiasis Exacerbation of reactive airway disease Pneumonia CAP (community acquired pneumonia) Flu syndrome Bronchitis Kurtz splints Achilles tendinitis Hypokalemia COVID-19 virus infection Nausea and vomiting TMJ arthralgia Pancreatitis Anxiety Class 3 obesity Ureteral calculus, right Sepsis Sciatica Dental abscess Right flank pain Cough Leg pain Fracture of medial malleolus, right, closed Reactive airway disease with wheezing Bronchitis Sinusitis Ureteral calculus Renal colic Kidney stone on left side Poison eric dermatitis Cellulitis of breast Left flank pain Pain and swelling of left ankle Ankle pain, left Pain and swelling of right ankle Left knee pain Tight cast Cast discomfort Tibia/fibula fracture Encounter for laboratory testing for COVID-19 virus Renal colic on right side Pyelonephritis Hypertension Obstructive uropathy Left ureteral calculus Flank pain SIRS (systemic inflammatory response syndrome) Renal insufficiency Ureteral stent occlusion Hydronephrosis Contusion of coccyx Obesity (BMI 35.0-39.9 without comorbidity) Nephrolithiasis Diarrhea Hydronephrosis with urinary obstruction due to ureteral calculus Complicated UTI (urinary tract infection) Foot sprain Renal colic on left side Bruise Recurrent left lower quadrant abdominal pain Chronic pain Ovarian cyst Flank pain, acute Urinary tract infection Abscess after procedure Wound dehiscence, surgical Dehiscence of closure of skin Yeast dermatitis Surgical wound infection Cellulitis Abdominal pain Complex cyst of right ovary Cystitis Vomiting and diarrhea Epigastric pain Surgical History Hx of cholecystectomy H/O total hysterectomy with removal of both tubes and ovaries S/P ureteral stent placement Status post cystoscopy with ureteral stent placement Fracture of ankle, lateral malleolus, left, closed Fracture of tibial shaft, left, closed S/P unilateral salpingo-oophorectomy Family History Other No significant family history Social History Smoking Status: Never smoker second hand exposure: No alcohol intake: never counseling provided: none substance use type: denies use current occupational status: disabled Travel in the last 8 weeks?: None household members: none housing: house 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 current occupational exposures/hazards: No caffeine: No Have you lived/traveled outside [place] in past 30 days?: No Contact w/someone who lives/traveled outside [place] past 30 days?: No Exposure to someone with infectious disease in past 14 days?: No Do you have a fever (greater than 100.4 F or 38 C)?: No Have you tested positive for COVID-19?: No Exposed to someone with COVID-19 in past 14 days?: No Do you have a sore throat?: No Do you have a cough?: No Do you have any weakness?: No Do you have any diarrhea?: No Are you experiencing any unusual bleeding?: No Do you have any muscle aches/pain?: No Do you have any abdominal pain?: No Are you experiencing loss of taste or smell?: No Other 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 Have you received the Flu Vaccine for this season: No Have you received the Pneumonia Vaccine: No ROS Obtained: Yes Systems reviewed as appropriate & no additional complaints except as documented Constitutional Constitutional: Reports as per HPI Physical Exam General General appearance: alert Head Head exam: normocephalic Eye Eye exam: Present PERRL and EOMI ENT ENT exam: Present normal oropharynx and mucous membranes moist Neck Neck exam: Present full ROM and trachea midline Respiratory Respiratory exam: Present normal lung sounds bilaterally Cardiovascular Cardiovascular exam: Present regular rate, normal rhythm, +S1 and +S2 Abdominal Exam Abdominal exam: Present soft and normal bowel sounds Abdominal tenderness: Present LLQ Extremities Exam Extremities exam: Present full ROM Back Exam Back exam: Present CVA tenderness (L) Neurological Exam Neurological exam: Present alert, oriented X3 and normal gait Skin Skin exam: Present warm, dry and intact Medical Decision Making Medical Records Screening: Per USPSTF and CDC recommendations, given the prevalence of disease in our region, it is our hospital?s policy to screen for HIV and viral Hepatitis for all patients aged 18 and over and those with ongoing risk factors. Olu Inquiry Pt receiving controlled substance: No Olu was queried for this patient: No Vital Signs: 06/07/25 16:37 06/07/25 19:00 06/07/25 19:38 Temperature 98.4 F Temperature Source Oral Pulse Rate 86 98 H Pulse Rate [Left Radial] 95 H Respiratory Rate 20 Blood Pressure 183/111 H 171/107 H Blood Pressure [Right Arm] 170/102 H Blood Pressure Mean [Right Arm] 124 Blood Pressure Position 02 Sat by Pulse Oximetry 97 96 94 L Oxygen Delivery Method Room Air 06/07/25 20:19 Temperature 98.4 F Temperature Source Pulse Rate 98 H Pulse Rate [Left Radial] Respiratory Rate 16 Blood Pressure 171/107 H Blood Pressure [Right Arm] Blood Pressure Mean [Right Arm] Blood Pressure Position Sitting 02 Sat by Pulse Oximetry Oxygen Delivery Method Room Air Lab Data Lab Results 06/07/25 15:51: Urine Color Yellow, Urine Appearance Slightly cloudy, Urine pH 6.0, Ur Specific [place] 1.025, Urine Protein Negative, Urine Glucose (UA) Negative, Urine Ketones Negative, Urine Blood Trace-i, Urine Nitrate Negative, Urine Bilirubin Negative, Urine Urobilinogen 0.2, Ur Leukocyte Esterase Negative, Urine RBC Occasional, Urine WBC 10-20, Ur Squamous Epith Cells 10-20, Urine Bacteria Trace 06/07/25 17:00: WBC 11.0 H, RBC 4.66, Hgb 13.1, Hct 40.0, MCV 85.8, MCH 28.1, MCHC 32.8, RDW 14.3, Plt Count 346, MPV 9.8, Neut % (Auto) 70.1, Lymph % (Auto) 17.9, [place] % (Auto) 9.0, Eos % (Auto) 2.1, Baso % (Auto) 0.3, Neut # (Auto) 7.7, Lymph # (Auto) 2.0, [place] # (Auto) 1.0, Eos # (Auto) 0.2, Baso # (Auto) 0.0, Sodium 139, Potassium 3.6, Chloride 104, Carbon Dioxide 28, Anion Gap 10.6, BUN 23 H, Creatinine 0.90, Estimated Creat Clear 66, Estimated GFR 70, Est GFR ( Amer) 84, Glucose 108 H, Calcium 8.6, Magnesium 1.7, Total Bilirubin 0.3, AST 26, ALT 19, Alkaline Phosphatase 75, Total Protein 7.0, Albumin 3.6, G lobulin 3.4 H, Albumin/Globulin Ratio 1.1, Lipase 240 06/07/25 17:00 06/07/25 17:00 Orders (Tests/Meds): ED MEDICATIONS Discontinued Medications Generic Name Dose Route Start Last Admin Trade Name Freq PRN Reason Stop Dose Admin Heparin Sodium (Porcine) 500 unit 06/07/25 20:05 06/07/25 20:07 Heparin Lock Flush 500 Units/5ml Syr IV 06/07/25 20:06 500 unit ONCE ONE Administration Hydromorphone HCl 0.5 mg 06/07/25 18:45 06/07/25 18:52 Hydromorphone 2mg/Ml Syringe IV 07/07/25 18:44 0.5 mg Q2HP PRN Administration Severe Pain (7-10) Sodium Chloride 1,000 mls @ 999 mls/hr 06/07/25 16:16 06/07/25 19:29 Sod Chlor 0.9% 1000ml Bag IV 06/07/25 17:16 Infused .Q1H1M ONE Infusion Iopamidol 75 ml 06/07/25 17:48 06/07/25 17:49 Iopamidol-370 (76%);100ml Bottle IV 06/07/25 17:49 75 ml ONCE ONE Administration Morphine Sulfate 4 mg 06/07/25 16:22 06/07/25 17:34 Morphine 4mg/Ml Syringe IV 06/07/25 16:23 4 mg ONCE ONE Administration Ondansetron HCl 4 mg 06/07/25 16:22 06/07/25 17:33 Ondansetron 4mg/2ml Vial IV 06/07/25 16:23 4 mg ONCE ONE Administration Sodium Chloride 10 ml 06/07/25 17:48 06/07/25 17:49 Sodium Chloride 0.9% 10ml Syr (Rad Only) IV 06/07/25 17:49 10 ml ONCE ONE Administration ORDERS Category Date Time Status CT abdomen pelvis w con Stat Cat Scan 06/07/25 16:16 Completed CBC [Complete Blood Count Auto Diff] Stat Lab 06/07/25 17:00 Completed Comprehensive Metabolic Panel Stat Lab 06/07/25 17:00 Completed Lipase Stat Lab 06/07/25 17:00 Completed Magnesium Stat Lab 06/07/25 17:00 Completed UA [Urinalysis and Microscopic] Stat Lab 06/07/25 15:51 Completed Urine Culture Stat Micro 06/07/25 15:51 Received Medical Decision Narrative: patient is a 39-year-old female presenting to the emergency department for evaluation of dysuria and kidney stone. Patient is hemodynamically stable and nontoxic-appearing upon arrival, afebrile. Differential diagnosis includes kidney stone, dysuria, UTI, among others. Workup will be conducted with hematologic labs, specific imaging. Initial inventions include crystalloid bolus. Initial workup reviewed by me hematologic labs are remarkable for white count of 11, urine showed negative nitrites negative leuks. I told patient to stop taking the antibiotic that she was given in [place] because she does not need it. Reviewed CT scan findings of gastritis with patient. Asked her to follow- up with her PCP Brooklyn Chandler tomorrow for further treatment and management of her pain. Patient is safe for discharge home as we did not find definitive answers today but we also did not find any emergent findings. We did found gastritis that could be causing her abdominal pain. Patient is safe for discharge home. Critical Care Critical Care Time Critical Care Time: No
[2025-06-07 16:37] VITALS: BP 170/102; PULSE 95; RESP 20; TEMP 36.9; O2SAT 97; BMI 49.4
[2025-06-07 16:48] LABS: Bacteria,Urine Trace /lpf; RBC,Urine Occasional #/hpf (0-3)
[2025-06-07 17:22] LABS: Hematocrit 40.0 % (37.0-47.0); Hemoglobin 13.1 g/dL (12.2-16.2); Immature Granulocytes % 0.6 %; Mean Corpuscular HGB Conc 32.8 g/dL (31.8-35.4); Mean Corpuscular Hemoglobin 28.1 pg (27.0-31.2); Mean Corpuscular Volume 85.8 fl (81-99); Nucleated Red Blood Cells % 0 %; Platelet Count 346 K/mm3 (142-424); Red Blood Count 4.66 M/mm3 (4.20-5.40); Red Cell Distribution Width-SD 44.5 fL; White Blood Count 11.0 K/mm3 (4.8-10.8)
[2025-06-07 17:29] LABS: Albumin Level 3.6 g/dl (3.5-5.0); Chloride 104 mmol/L (98-107); Potassium 3.6 mmoL/L (3.5-5.1); Sodium 139 mmol/L (136-145)
[2025-06-07 17:31] LABS: Blood Urea Nitrogen 23 mg/dl (7-17); Creatinine Clearance Estimated 66 mL/min (50-200); Creatinine,Serum 0.90 mg/dl (0.52-1.04); Estimated Glomerular Filt Rate 70 ml/min (>60); GFR (African American) 84 ML/MIN (>60)
[2025-06-07 17:32] LABS: Alanine Aminotransferase 19 U/L (12-78); Albumin/Globulin Ratio 1.1 (1.1-1.8); Alkaline Phosphatase 75 U/L (38-126); Anion Gap 10.6 mEq/L (5-15); Aspartate Amino Transferase 26 U/L (14-36); Bilirubin,Total 0.3 mg/dl (0.2-1.3); Calcium 8.6 mg/dl (8.4-10.2); Carbon Dioxide 28 mmol/L (22.0-30.0); Globulin 3.4 g/dL (1.3-3.2); Glucose 108 mg/dl (74-100); Lipase 240 U/L (23-300); Magnesium 1.7 mg/dl (1.6-2.3); Total Protein,Serum 7.0 g/dl (6.3-8.2)
[2025-06-07] MEDS: ONDANSETRON 4MG/2ML VIAL 4 MG IV (17:33)
[2025-06-07] MEDS: 0.9 % SODIUM CHLORIDE 1000ML 1,000 ML 999 ML IV (17:34)
[2025-06-07] MEDS: MORPHINE 4MG/ML SYRINGE 4 MG IV (17:34)
[2025-06-07] MEDS: SODIUM CHLORIDE 0.9% 10ML SYR (RAD ONLY) 10 ML IV (17:49)
[2025-06-07] MEDS: IOPAMIDOL-370 (76%);100ML BOTTLE 75 ML IV (17:49)
[2025-06-07] MEDS: HYDROMORPHONE 2MG/ML SYRINGE 0.5 MG IV (18:52)
[2025-06-07 19:00] VITALS: BP 183/111; PULSE 86; O2SAT 96
[2025-06-07 19:38] VITALS: BP 171/107; PULSE 98; O2SAT 94
--- NOTE | 2025-06-07 19:42 | PC.NURSE ---
ED provider at the bedside updating pt on POC.
[2025-06-07 20:19] VITALS: BP 171/107; PULSE 98; RESP 16; TEMP 36.9; O2SAT 94
== END 2025-06-07 20:20 | disposition home or self-care (01) ==
PROVIDERS: Nurse Practitioner; Emergency Provider Student in an Organized Health Care Education/Training Program; PCP Nurse Practitioner Family
DX: R10.32 Left lower quadrant pain (principal); N39.0 Urinary tract infection, site not specified; K29.00 Acute gastritis without bleeding; N20.0 Calculus of kidney
CPT/HCPCS: 74177; 80053; 81001; 83690; 83735; 85025; 87086; 96361; 96374; 96375; 99285; J1171; J1642; J2270; J2405; J7030; Q9967

== ENCOUNTER 2025-06-21 20:04 | Emergency (ER) | payer MEDICAID, SELFPAY ==
[2025-06-21 20:09] VITALS: BP 182/107; PULSE 111; RESP 18; TEMP 36.6; O2SAT 98; BMI 43.9
[2025-06-21 20:25] VITALS: BP 184/111; PULSE 109; O2SAT 97
--- NOTE | 2025-06-21 21:16 | CT_ITS ---
PROCEDURE INFORMATION: Exam: CT Abdomen And Pelvis Without Contrast Exam date and time: 06/21/2025 9:33 PM Age: 39 years old Clinical indication: Abdominal pain; Flank; Left; Additional info: Left flank TECHNIQUE: Imaging protocol: Computed tomography of the abdomen and pelvis without contrast. Radiation optimization: All CT scans at this facility use at least one of these dose optimization techniques: automated exposure control; mA and/or kV adjustment per patient size (includes targeted exams where dose is matched to clinical indication); or iterative reconstruction. COMPARISON: CT ABDOMEN PELVIS W CON 06/07/2025 5:50 PM FINDINGS: Liver: Unremarkable. No mass. Gallbladder and biliary ducts: Surgically absent gallbladder without biliary ductal dilatation. Pancreas: Unremarkable. No ductal dilation. Spleen: Unremarkable. No splenomegaly. Adrenal glands: Unremarkable. No mass. Kidneys and ureters: Tiny nonobstructive left renal calculi measuring up to 0.2 cm. No hydronephrosis. Stomach and bowel: Scattered colonic diverticula without pericolonic fat stranding. Nonobstructive pattern. Appendix: Appendix not visualized. Intraperitoneal space: Unremarkable. No free air. No significant fluid collection. Vasculature: Unremarkable. No abdominal aortic aneurysm. Lymph nodes: Unremarkable. No enlarged lymph nodes. Urinary bladder: Decompressed and suboptimally evaluated. Reproductive: Unremarkable as visualized. Bones/joints: Unremarkable. No acute fracture. Soft tissues: Unremarkable. IMPRESSION: 1. Tiny nonobstructive left nephrolithiasis. 2. Scattered colonic diverticulosis.
[2025-06-21 21:23] LABS: Hematocrit 43.8 % (37.0-47.0); Hemoglobin 14.3 g/dL (12.2-16.2); Immature Granulocytes % 0.4 %; Mean Corpuscular HGB Conc 32.6 g/dL (31.8-35.4); Mean Corpuscular Hemoglobin 28.1 pg (27.0-31.2); Mean Corpuscular Volume 86.2 fl (81-99); Nucleated Red Blood Cells % 0 %; Platelet Count 414 K/mm3 (142-424); Red Blood Count 5.08 M/mm3 (4.20-5.40); Red Cell Distribution Width-SD 44.8 fL; White Blood Count 11.2 K/mm3 (4.8-10.8)
[2025-06-21 21:28] LABS: Alanine Aminotransferase 32 U/L (12-78); Albumin Level 3.7 g/dl (3.5-5.0); Albumin/Globulin Ratio 1.1 (1.1-1.8); Alkaline Phosphatase 88 U/L (38-126); Anion Gap 13.4 mEq/L (5-15); Aspartate Amino Transferase 33 U/L (14-36); Bilirubin,Total 0.6 mg/dl (0.2-1.3); Blood Urea Nitrogen 16 mg/dl (7-17); Calcium 8.7 mg/dl (8.4-10.2); Carbon Dioxide 27 mmol/L (22.0-30.0); Chloride 103 mmol/L (98-107); Creatinine Clearance Estimated 60 mL/min (50-200); Creatinine,Serum 1.00 mg/dl (0.52-1.04); Estimated Glomerular Filt Rate 62 ml/min (>60); GFR (African American) 75 ML/MIN (>60); Globulin 3.3 g/dL (1.3-3.2); Glucose 109 mg/dl (74-100); Lipase 265 U/L (23-300); Magnesium 1.7 mg/dl (1.6-2.3); Potassium 3.4 mmoL/L (3.5-5.1); Sodium 140 mmol/L (136-145); Total Protein,Serum 7.0 g/dl (6.3-8.2)
--- NOTE | 2025-06-21 21:35 | [facility].EDGENADL ---
Discharge Plan Disposition Patient Disposition: Home, Self-Care Condition: Good Prescriptions Prescriptions: New methocarbamol 750 mg tablet 1,500 mg PO TID 7 Days Qty: 42 0RF No Action promethazine-DM 6.25-15 mg/5 mL syrup 5 ml PO Q4-6H PRN (Reason: cough) Qty: 118 0RF hydrochlorothiazide 25 mg tablet 25 mg PO QAM Qty: 90 3RF levofloxacin 750 mg tablet 750 mg PO DAILY 5 Days Qty: 5 0RF carvedilol 12.5 mg Tablet 12.5 mg PO BID 30 Days Qty: 60 0RF tamsulosin 0.4 mg Capsule 0.4 mg PO HS 30 Days Qty: 30 0RF hydrocodone-acetaminophen 5-325 mg Tablet 1 tab PO Q4HP PRN (Reason: Severe Pain (7-10)) Qty: 9 0RF Referrals Follow up/Referrals: Brooklyn Chandler APRN [Primary Care Provider, Family Practice] - See instructions Activity Restrictions/Add. Instructions Additional Instructions/Restrictions: Your CT scans and labs today were negative. If you develop fevers, worsening pain, bloody urine, worsening urinary symptoms, or vaginal discharge please return to the emergency department for further evaluation Clinical Impressions Clinical Impression: Acute flank pain Instructions Patient Instructions: DI for Acute Abdominal Pain Print Language Print Language: [place] Discharge ED Provider: Rolo Villalobos Adult HPI <Paola Chaney (ED), OUTPATIENT CODING SPECIALIST - Last Filed: 06/21/25 21:46> General Chief complaint: Abdominal Pain Stated complaint: abdomin on the left side is hurting Time Seen by Provider: 06/21/25 21:16 Mode of Arrival: Ambulatory Source of Information: Patient Description of Symptoms (Recalled from ER Triage Doc. by RN): Pt presents with c/o left flank pain that radiates to her LLQ abd. Pt states the pain started today, and is having urinary frequency and nausea. Pt states she has had numerous kidney stones in the past. History of Present Illness HPI narrative: 39-year-old female presents with complaint of left flank pain that radiates to her left lower quadrant. She says the pain started today and she started having urinary frequency and pressure in her flank. She says she has cloudy urine. She has not had over 200 kidney stones in the past. She says her work made her come to the ER. She was unable to work today. No fevers, chills, she did have nausea and one-time vomiting today. Related Data Previous Rx's ?Medication ?Instructions ?Recorded carvedilol 12.5 mg tablet 12.5 mg PO BID 30 days #60 tabs 01/15/25 hydrocodone 5 mg-acetaminophen 325 1 tab PO Q4HP PRN Severe Pain 01/15/25 mg tablet (7-10) #9 tabs tamsulosin 0.4 mg capsule 0.4 mg PO HS 30 days #30 caps 01/15/25 hydrochlorothiazide 25 mg tablet 25 mg PO QAM #90 tabs 02/01/25 promethazine-DM 6.25 mg-15 mg/5 mL 5 ml PO Q4-6H PRN cough #118 mL 02/01/25 oral syrup levofloxacin 750 mg tablet 750 mg PO DAILY 5 days #5 tabs 02/09/25 methocarbamol 750 mg tablet 1,500 mg (2 x 750 mg) PO TID 7 06/22/25 days #42 tabs Allergies Allergy/AdvReac Type Severity Reaction Status Date / Time cefepime Allergy Severe Anaphylaxis Verified 02/01/25 14:15 codeine (CODEINE) Allergy Severe BLEEDING Verified 02/01/25 14:15 OF EYES AND NOSE ibuprofen Allergy Severe face Verified 02/01/25 14:15 swelling ketorolac (From TORADOL) Allergy Severe face Verified 02/01/25 14:15 swelling midazolam (From VERSED) Allergy Severe Anaphylaxis Verified 02/01/25 14:15 Penicillins Allergy Severe Hives Verified 02/01/25 14:15 sulfamethoxazole (From Allergy Severe Unknown Verified 02/01/25 14:15 BACTRIM) allergy reaction tramadol Allergy Severe face Verified 02/01/25 14:15 swelling trimethoprim (From BACTRIM) Allergy Severe Unknown Verified 02/01/25 14:15 allergy reaction aztreonam (AZTREONAM) Allergy Mild NA-NAUSEA/V Verified 02/01/25 14:15 OMITING gatifloxacin (From TEQUIN) Allergy Mild tremors Verified 02/01/25 14:15 cefaclor (CEFACLOR) Allergy Unknown Unknown Verified 02/01/25 14:15 allergy reaction doxycycline (DOXYCYCLINE) Allergy Unknown Hives Verified 02/01/25 14:15 PFSH <Paola Kilpela (ED), OUTPATIENT CODING SPECIALIST - Last Filed: 06/21/25 21:46> [facility] Disclaimer: The information contained in this section may have been updated after the patient was seen, as this information can be updated by other users. 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 (Updated 06/22/25 @ 00:03 by Rolo Villalobos DO) Hypertension Infection associated with ureteral stent Port-A-Cath in place Abnormal urinalysis Sepsis Axillary adenopathy Morbid obesity with BMI of 40.0-44.9, adult Chews tobacco Chest pain Lesion of liver greater than 1 cm in diameter Pyelonephritis Diverticulitis Puncture wound of hand, left Elevated serum hCG in female, not Hypokalemia Pyelonephritis Urolithiasis Exacerbation of reactive airway disease Pneumonia CAP (community acquired pneumonia) Flu syndrome Bronchitis Kurtz splints Achilles tendinitis Hypokalemia COVID-19 virus infection Nausea and vomiting TMJ arthralgia Pancreatitis Anxiety Class 3 obesity Ureteral calculus, right Sepsis Sciatica Dental abscess Right flank pain Cough Leg pain Fracture of medial malleolus, right, closed Reactive airway disease with wheezing Bronchitis Sinusitis Ureteral calculus Renal colic Kidney stone on left side Poison eric dermatitis Cellulitis of breast Left flank pain Pain and swelling of left ankle Ankle pain, left Pain and swelling of right ankle Left knee pain Tight cast Cast discomfort Tibia/fibula fracture Encounter for laboratory testing for COVID-19 virus Renal colic on right side Pyelonephritis Hypertension Obstructive uropathy Left ureteral calculus Flank pain SIRS (systemic inflammatory response syndrome) Renal insufficiency Ureteral stent occlusion Hydronephrosis Contusion of coccyx Obesity (BMI 35.0-39.9 without comorbidity) Nephrolithiasis Diarrhea Hydronephrosis with urinary obstruction due to ureteral calculus Complicated UTI (urinary tract infection) Foot sprain Renal colic on left side Bruise Recurrent left lower quadrant abdominal pain Chronic pain Ovarian cyst Flank pain, acute Urinary tract infection Abscess after procedure Wound dehiscence, surgical Dehiscence of closure of skin Yeast dermatitis Surgical wound infection Cellulitis Abdominal pain Complex cyst of right ovary Cystitis Vomiting and diarrhea Epigastric pain Surgical History Hx of cholecystectomy H/O total hysterectomy with removal of both tubes and ovaries S/P ureteral stent placement Status post cystoscopy with ureteral stent placement Fracture of ankle, lateral malleolus, left, closed Fracture of tibial shaft, left, closed S/P unilateral salpingo-oophorectomy Family History Other No significant family history Social History Smoking Status: Never smoker second hand exposure: No alcohol intake: never counseling provided: none substance use type: denies use current occupational status: disabled Travel in the last 8 weeks?: None household members: none housing: house 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 current occupational exposures/hazards: No caffeine: No Have you lived/traveled outside [place] in past 30 days?: No Contact w/someone who lives/traveled outside US past 30 days?: No Exposure to someone with infectious disease in past 14 days?: No Do you have a fever (greater than 100.4 F or 38 C)?: No Have you tested positive for COVID-19?: No Exposed to someone with COVID-19 in past 14 days?: No Do you have a sore throat?: No Do you have a cough?: No Do you have any weakness?: No Do you have any diarrhea?: No Are you experiencing any unusual bleeding?: No Do you have any muscle aches/pain?: No Do you have any abdominal pain?: No Are you experiencing loss of taste or smell?: No Other 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 Have you received the Flu Vaccine for this season: No Have you received the Pneumonia Vaccine: No <Paola Chaney (ED), OUTPATIENT CODING SPECIALIST - Last Filed: 06/21/25 21:46> ROS Obtained: Yes Systems reviewed as appropriate & no additional complaints except as documented Constitutional Constitutional: Reports as per HPI Physical Exam <Paola Chaney (ED), OUTPATIENT CODING SPECIALIST - Last Filed: 06/21/25 21:46> General General appearance: alert and in no apparent distress Head Head exam: normocephalic Eye Eye exam: Present PERRL and EOMI ENT ENT exam: Present normal oropharynx and mucous membranes moist Neck Neck exam: Present full ROM and trachea midline Respiratory Respiratory exam: Present normal lung sounds bilaterally Cardiovascular Cardiovascular exam: Present normal rhythm, tachycardia, normal heart sounds, +S1 and +S2 Abdominal Exam Abdominal exam: Present soft and normal bowel sounds Extremities Exam Extremities exam: Present normal inspection, full ROM and normal capillary refill Back Exam Back exam: Present CVA tenderness (L) Neurological Exam Neurological exam: Present alert and oriented X3 Skin Skin exam: Present warm, dry and intact Medical Decision Making <Paola Chaney (JAQUAN), OUTPATIENT CODING SPECIALIST - Last Filed: 06/21/25 21:46> Medical Records Screening: Per USPSTF and CDC recommendations, given the prevalence of disease in our region, it is our hospital?s policy to screen for HIV and viral Hepatitis for all patients aged 18 and over and those with ongoing risk factors. Olu Inquiry Pt receiving controlled substance: No Olu was queried for this patient: No Vital Signs: 06/21/25 20:09 06/21/25 20:25 06/21/25 23:37 Temperature 98 F Temperature Source Oral Pulse Rate 109 H 83 Pulse Rate [Right] 111 H Respiratory Rate 18 14 Blood Pressure 184/111 H 149/85 H Blood Pressure [Right Arm] 182/107 H Blood Pressure Mean [Right Arm] 132 Blood Pressure Source [Right Arm] Automatic Cuff Blood Pressure Position Sitting Blood Pressure Position [Right Arm] Sitting 02 Sat by Pulse Oximetry 98 97 100 Oxygen Delivery Method Room Air Room Air Lab Data Lab Results 06/21/25 20:47: WBC 11.2 H, RBC 5.08, Hgb 14.3, Hct 43.8, MCV 86.2, MCH 28.1, MCHC 32.6, RDW 14.2, Plt Count 414, MPV 10.0, Neut % (Auto) 68.5, Lymph % (Auto) 22.9, [place] % (Auto) 5.7, Eos % (Auto) 2.2, Baso % (Auto) 0.3, Neut # (Auto) 7.7, Lymph # (Auto) 2.6, [place] # (Auto) 0.6, Eos # (Auto) 0.2, Baso # (Auto) 0.0, Sodium 140, Potassium 3.4 L, Chloride 103, Carbon Dioxide 27, Anion Gap 13.4, BUN 16, Creatinine 1.00, Estimated Creat Clear 60, Estimated GFR 62, Est GFR ( Amer) 75, Glucose 109 H, Calcium 8.7, Magnesium 1.7, Total Bilirubin 0.6, AST 33, ALT 32, Alkaline Phosphatase 88, Troponin I < 0.01, Total Protein 7.0, Albumin 3.7, Globulin 3.3 H, Albumin/Globulin Ratio 1.1, Lipase 265 06/21/25 23:39: Urine Color Yellow, Urine Appearance Sl cloudy, Urine pH 6.5, Ur Specific [place] 1.020, Urine Protein Negative, Urine Glucose (UA) Negative, Urine Ketones Negative, Urine Blood Negative, Urine Nitrate Negative, Urine Bilirubin Negative, Urine Urobilinogen 0.2, Ur Leukocyte Esterase Trace, Urine RBC None, Urine WBC 3-5, Ur Squamous Epith Cells Occasional, Urine Bacteria Trace, Urine HCG, Qual Negative 06/21/25 20:47 06/21/25 20:47 Orders (Tests/Meds): ED MEDICATIONS Discontinued Medications Generic Name Dose Route Start Last Admin Trade Name Geeq PRN Reason Stop Dose Admin Sodium Chloride 1,000 mls @ 999 mls/hr 06/21/25 21:17 06/21/25 22:46 Sod Chlor 0.9% 1000ml Bag IV 06/21/25 22:17 Infused .Q1H1M ONE Infusion Methocarbamol 1,500 mg 06/21/25 23:28 06/21/25 23:30 Methocarbamol 500mg Tablet PO 06/21/25 23:29 1,500 mg ONCE ONE Administration Morphine Sulfate 4 mg 06/21/25 21:17 06/21/25 21:42 Morphine 4mg/Ml Syringe IV 06/21/25 21:18 4 mg ONCE ONE Administration Ondansetron HCl 4 mg 06/21/25 21:17 06/21/25 21:41 Ondansetron 4mg/2ml Vial IV 06/21/25 21:18 4 mg ONCE ONE Administration ORDERS Category Date Time Status CT abdomen pelvis wo con Stat Cat Scan 06/21/25 21:16 Completed CBC [Complete Blood Count Auto Diff] Stat Lab 06/21/25 20:47 Completed Comprehensive Metabolic Panel Stat Lab 06/21/25 20:47 Completed Lipase Stat Lab 06/21/25 20:47 Completed Magnesium Stat Lab 06/21/25 20:47 Completed Trop I [Troponin I] Stat Lab 06/21/25 20:47 Completed Troponin I Q3H Lab 06/22/25 00:30 Ordered Troponin I Q3H Lab 06/22/25 03:30 Ordered Urinalysis and Microscopic Stat Lab 06/21/25 23:39 Completed Urine , HCG Qual. Stat Lab 06/21/25 23:39 Completed Medical Decision Narrative: patient is a 39-year-old female presenting to the emergency department for evaluation of left flank pain that moves around to her left abdomen. Patient is hemodynamically stable and nontoxic-appearing upon arrival, afebrile. Differential diagnosis includes kidney stone renal colic UTI. Workup will be conducted with hematologic labs, specific imaging. Patient is currently stable and we are waiting for test results to come back. I gave Dr. Villalobos report on patient. <Rolo Villalobos, DO - Last Filed: 06/22/25 00:04> Medical Records Medical records reviewed: Yes I reviewed the patient's medical records. Vital Signs: 06/21/25 20:09 06/21/25 20:25 06/21/25 23:37 Temperature 98 F Temperature Source Oral Pulse Rate 109 H 83 Pulse Rate [Right] 111 H Respiratory Rate 18 14 Blood Pressure 184/111 H 149/85 H Blood Pressure [Right Arm] 182/107 H Blood Pressure Mean [Right Arm] 132 Blood Pressure Source [Right Arm] Automatic Cuff Blood Pressure Position Sitting Blood Pressure Position [Right Arm] Sitting 02 Sat by Pulse Oximetry 98 97 100 Oxygen Delivery Method Room Air Room Air Lab Data Lab Results 06/21/25 20:47: WBC 11.2 H, RBC 5.08, Hgb 14.3, Hct 43.8, MCV 86.2, MCH 28.1, MCHC 32.6, RDW 14.2, Plt Count 414, MPV 10.0, Neut % (Auto) 68.5, Lymph % (Auto) 22.9, [place] % (Auto) 5.7, Eos % (Auto) 2.2, Baso % (Auto) 0.3, Neut # (Auto) 7.7, Lymph # (Auto) 2.6, [place] # (Auto) 0.6, Eos # (Auto) 0.2, Baso # (Auto) 0.0, Sodium 140, Potassium 3.4 L, Chloride 103, Carbon Dioxide 27, Anion Gap 13.4, BUN 16, Creatinine 1.00, Estimated Creat Clear 60, Estimated GFR 62, Est GFR ( Amer) 75, Glucose 109 H, Calcium 8.7, Magnesium 1.7, Total Bilirubin 0.6, AST 33, ALT 32, Alkaline Phosphatase 88, Troponin I < 0.01, Total Protein 7.0, Albumin 3.7, Globulin 3.3 H, Albumin/Globulin Ratio 1.1, Lipase 265 06/21/25 23:39: Urine Color Yellow, Urine Appearance Sl cloudy, Urine pH 6.5, Ur Specific [place] 1.020, Urine Protein Negative, Urine Glucose (UA) Negative, Urine Ketones Negative, Urine Blood Negative, Urine Nitrate Negative, Urine Bilirubin Negative, Urine Urobilinogen 0.2, Ur Leukocyte Esterase Trace, Urine RBC None, Urine WBC 3-5, Ur Squamous Epith Cells Occasional, Urine Bacteria Trace, Urine HCG, Qual Negative Orders (Tests/Meds): ED MEDICATIONS Discontinued Medications Generic Name Dose Route Start Last Admin Trade Name Freq PRN Reason Stop Dose Admin Sodium Chloride 1,000 mls @ 999 mls/hr 06/21/25 21:17 06/21/25 22:46 Sod Chlor 0.9% 1000ml Bag IV 06/21/25 22:17 Infused .Q1H1M ONE Infusion Methocarbamol 1,500 mg 06/21/25 23:28 06/21/25 23:30 Methocarbamol 500mg Tablet PO 06/21/25 23:29 1,500 mg ONCE ONE Administration Morphine Sulfate 4 mg 06/21/25 21:17 06/21/25 21:42 Morphine 4mg/Ml Syringe IV 06/21/25 21:18 4 mg ONCE ONE Administration Ondansetron HCl 4 mg 06/21/25 21:17 06/21/25 21:41 Ondansetron 4mg/2ml Vial IV 06/21/25 21:18 4 mg ONCE ONE Administration ORDERS Category Date Time Status CT abdomen pelvis wo con Stat Cat Scan 06/21/25 21:16 Completed CBC [Complete Blood Count Auto Diff] Stat Lab 06/21/25 20:47 Completed Comprehensive Metabolic Panel Stat Lab 06/21/25 20:47 Completed Lipase Stat Lab 06/21/25 20:47 Completed Magnesium Stat Lab 06/21/25 20:47 Completed Trop I [Troponin I] Stat Lab 06/21/25 20:47 Completed Troponin I Q3H Lab 06/22/25 00:30 Ordered Troponin I Q3H Lab 06/22/25 03:30 Ordered Urinalysis and Microscopic Stat Lab 06/21/25 23:39 Completed Urine , HCG Qual. Stat Lab 10/09/25 23:39 Completed Medical Decision Narrative: patient is a 39-year-old female presenting to the emergency department for evaluation of left flank pain that moves around to her left abdomen. Patient is hemodynamically stable and nontoxic-appearing upon arrival, afebrile. Differential diagnosis includes kidney stone renal colic UTI. Workup will be conducted with hematologic labs, specific imaging. Patient is currently stable and we are waiting for test results to come back. I gave Dr. Villalobos report on patient. Transfer of care This is Dr. Villalobos. I agree with ADELINA note above. I did independently evaluate this patient and obtain collateral history. She tells me that she has a extensive history of kidney stones and began developing left flank pain over the last day. She states that this pain is worse with certain movements of the torso such as twisting and turning. However, this pain does kind of radiate around the left lateral side of the body just inferior to the rib cage and made her concerned about a kidney stone. She tells me that she also has some urgency but no dysuria or urinary frequency. No hematuria either. No vaginal symptoms. No gastrointestinal symptoms. We proceeded with hematologic labs as well as a CT scan of the abdomen and pelvis. Hematologic labs were personally interpreted by me and demonstrate a stable leukocytosis from prior of 11.2. No actionable anemia. She has no significant electrolyte derangements or evidence of acute kidney injury. We did obtain a troponin and it was less than 0.01. No transaminitis or elevation of bilirubin. Her lipase is within normal limits. Urine test is negative and she has no findings consistent with urinary tract infection as her nitrate and leukocyte esterase are negatives and she does not have a significant amount of white cells. Given that she has tenderness along the muscle belly of the left flank and region of the quadratus lumborum this could be musculoskeletal in nature. We did provide her 1500 mg of Robaxin to the patient here in the emergency department and she achieved some improvement in her symptoms. We will send her home on a short course of Robaxin in the event that this is musculoskeletal in nature. I have given her return precautions in the event that she experiences new or worsening symptoms including hematuria, dysuria, vaginal discharge, or worsening pain. At this time all questions have been answered and all parties are agreeable with the decision to discharge home Critical Care <Paola Chaney (ED), OUTPATIENT CODING SPECIALIST - Last Filed: 06/21/25 21:46> Critical Care Time Critical Care Time: No
[2025-06-21] MEDS: ONDANSETRON 4MG/2ML VIAL 4 MG IV (21:41)
[2025-06-21] MEDS: MORPHINE 4MG/ML SYRINGE 4 MG IV (21:42)
[2025-06-21] MEDS: 0.9 % SODIUM CHLORIDE 1000ML 1,000 ML 999 ML IV (21:42)
[2025-06-21 21:43] LABS: Troponin I < 0.01 ng/ml (0.00-0.034)
[2025-06-21] MEDS: METHOCARBAMOL 500MG TABLET 1500 MG PO (23:30)
[2025-06-21 23:37] VITALS: BP 149/85; PULSE 83; RESP 14; O2SAT 100
[2025-06-21 23:43] LABS: Microscopic, Urine URINE MICROSCOPIC (MICROSCOPIC)
[2025-06-21 23:45] LABS: Bilirubin,Urine Negative (Negative); Color,Urine YELLOW (Yellow); Glucose,Urine (UA) Negative (Negative); Ketones,Urine Negative (Negative); Leukocyte Esterase,Urine TRACE (Negative); PH,Urine 6.5 (5.0-8.5); Protein,Urine Negative (Negative); Specific Gravity, Urine 1.020 (1.005-1.030); Urobilinogen,Urine 0.2 EU/dl (0.2)
[2025-06-21 23:47] LABS: Urine Pregnancy, HCG Qual. Negative (Negative)
[2025-06-21 23:58] LABS: Bacteria,Urine Trace /lpf; Squamous Epithelial Cell,Urine Occasional #/hpf (0-5)
[2025-06-22 00:28] VITALS: BP 148/85; PULSE 78; RESP 16; TEMP 37.2; O2SAT 100
== END 2025-06-22 00:30 | disposition home or self-care (01) ==
PROVIDERS: Nurse Practitioner; Emergency Provider Student in an Organized Health Care Education/Training Program; PCP Nurse Practitioner Family
DX: R10.32 Left lower quadrant pain (principal); R10.A2 Flank pain, left side; R35.0 Frequency of micturition
CPT/HCPCS: 74176; 80053; 81001; 81025; 83690; 83735; 84484; 85025; 96361; 96374; 96375; 99285; J1642; J2270; J2405; J7030

== ENCOUNTER 2025-07-29 17:50 | Emergency (ER) | payer OTHER, SELFPAY ==
[2025-07-29] VITALS (9 sets, daily range): BP systolic 179–188; BP diastolic 102–142; PULSE 66–94; RESP 17–18; TEMP 36.9; O2SAT 91–100; BMI 45.7
[2025-07-29 18:30] LABS: Microscopic, Urine URINE MICROSCOPIC (MICROSCOPIC)
[2025-07-29 18:36] LABS: Bilirubin,Urine Negative (Negative); Color,Urine YELLOW (Yellow); Glucose,Urine (UA) Negative (Negative); Ketones,Urine Negative (Negative); Leukocyte Esterase,Urine 2+ (Negative); PH,Urine 6.0 (5.0-8.5); Protein,Urine 1+ (Negative); Specific Gravity, Urine 1.025 (1.005-1.030); Urobilinogen,Urine 0.2 EU/dl (0.2)
--- NOTE | 2025-07-29 18:39 | CT_ITS ---
PROCEDURE INFORMATION: Exam: CT Abdomen And Pelvis With Contrast Exam date and time: 07/29/2025 9:17 PM Age: 39 years old Clinical indication: Abdominal pain; Flank; Left; Additional info: Left flank pain TECHNIQUE: Imaging protocol: Computed tomography of the abdomen and pelvis with contrast. Radiation optimization: All CT scans at this facility use at least one of these dose optimization techniques: automated exposure control; mA and/or kV adjustment per patient size (includes targeted exams where dose is matched to clinical indication); or iterative reconstruction. Contrast material: ISOVUE; Contrast volume: 75 ml; Contrast route: IV; COMPARISON: CT ABDOMEN PELVIS WO CON 06/21/2025 9:33 PM FINDINGS: Liver: Normal. No mass. Gallbladder and biliary ducts: Cholecystectomy Pancreas: Normal. No ductal dilation. Spleen: Normal. No splenomegaly. Adrenal glands: Normal. No mass. Kidneys and ureters: Severe left hydronephrosis and ureteral dilatation secondary to a 4.8 mm stone in the proximal left ureter . Stomach and bowel: Unremarkable. No obstruction. No mucosal thickening. Appendix: No evidence of appendicitis. Intraperitoneal space: Unremarkable. No free air. No significant fluid collection. Vasculature: Unremarkable. No abdominal aortic aneurysm. Lymph nodes: Unremarkable. No enlarged lymph nodes. Urinary bladder: Unremarkable as visualized. Reproductive: Unremarkable as visualized. Bones/joints: Unremarkable. No acute fracture. Soft tissues: Unremarkable. IMPRESSION: Severe left hydronephrosis and ureteral dilatation secondary to a 4.8 mm stone in the proximal left ureter .
--- NOTE | 2025-07-29 18:43 | ED_ITS ---
<Statement entered by Blanquita Flores DO - 07/29/25 23:10> I was consulted by the ADELINA, and we discussed the complexity of problems being addressed. I approve the treatment and management plan for this patient's care in the emergency department, thus performing a substantial portion of the medical decision making. Blanquita Flores DO Discharge Plan Disposition Patient Disposition: Home, Self-Care Condition: Good Prescriptions Prescriptions: New levofloxacin 750 mg tablet 750 mg PO DAILY 7 Days Qty: 7 0RF tamsulosin [Flomax] 0.4 mg capsule 0.4 mg PO DAILY 7 Days Qty: 7 0RF oxycodone 5 mg tablet 5 mg PO DAILY Qty: 6 0RF No Action tamsulosin 0.4 mg capsule 0.4 mg PO HS 30 Days Qty: 30 0RF hydrochlorothiazide 25 mg tablet 25 mg PO QAM Qty: 30 11RF carvedilol 12.5 mg tablet 12.5 mg PO BID Qty: 60 11RF methocarbamol 750 mg tablet 1,500 mg PO TID 7 Days Qty: 42 0RF Referrals Follow up/Referrals: Brooklyn Chandler APRN [Primary Care Provider, Family Practice] - See instructions Activity Restrictions/Add. Instructions Additional Instructions/Restrictions: Continue taking the antibiotics as prescribed for 7 days. Take the Flomax for 7 days as well. You can take the oxycodone in addition to Tylenol or Motrin for additional pain control. You will follow-up with Dr. Acosta at [facility] tomorrow in clinic at 11am. The [place] is [address] [place] [address] [place] [address]. Phone number is [phone] Return to the emergency department for any acute or worsening symptoms. Clinical Impressions Clinical Impression: Hydronephrosis with renal calculous obstruction, UTI (urinary tract infection) Instructions Patient Instructions: DI for Low Back Pain Print Language Print Language: Turkmen Discharge ED Provider: Blanquita Flores General Adult HPI <Paola Chaney (ED), [employer] - Last Filed: 07/29/25 21:43> General Chief complaint: Back Pain/Injury Stated complaint: left side pain Time Seen by Provider: 07/29/25 18:26 Mode of Arrival: Ambulatory Source of Information: Patient Description of Symptoms (Recalled from ER Triage Doc. by RN): patient presents for left sided flank/abdominal pain that started this mornign in her sleep. patient rating it 04/22 currently. denies n/v/d. hx of stones. Related Data Previous Rx's ?Medication ?Instructions ?Recorded methocarbamol 750 mg tablet 1,500 mg (2 x 750 mg) PO T ID 7 06/22/25 days #42 tabs carvedilol 12.5 mg tablet 12.5 mg PO BID #60 tabs 06/13 12/05 hydrochlorothiazide 25 mg tablet 25 mg PO QAM #30 tabs 06/25/25 tamsulosin 0.4 mg capsule 0.4 mg PO HS 30 days #30 cap s 06/25/25 levofloxacin 750 mg tablet 750 mg PO DAILY 7 days #7 t abs 07/29/25 oxycodone 5 mg tablet 5 mg PO DAILY #6 tabs tamsulosin 0.4 mg capsule (Flomax) 0.4 mg PO DAILY 7 d ays #7 caps 07/29/25 Allergies Allergy/AdvReac Type Severity Reaction Status Date / Time cefepime Allergy Severe Anaphylaxis Verified 06/25/25 15:23 codeine (CODEINE) Allergy Severe BLEEDING Verified 06/25/25 15:23 OF EYES AND NOSE ibuprofen Allergy Severe face Verified 06/25/25 15:23 swelling ketorolac (From TORADOL) Allergy Severe face Verified 06/25/25 15:23 swelling midazolam (From VERSED) Allergy Severe Anaphylaxis Verified 06/25/25 15:23 Penicillins Allergy Severe Hives Verified 06/25/25 15:23 sulfamethoxazole (From Allergy Severe Unknown Verified 06/25/25 15:23 BACTRIM) allergy reaction tramadol Allergy Severe face Verified 06/25/25 15:23 swelling trimethoprim (From BACTRIM) Allergy Severe Unknown Verified 06/25/25 15:23 allergy reaction aztreonam (AZTREONAM) Allergy Mild NA-NAUSEA/V Verified 06/25/25 15:23 OMITING gatifloxacin (From TEQUIN) Allergy Mild tremors Verified 06/25/25 15:23 cefaclor (CEFACLOR) Allergy Unknown Unknown Verified 06/25/25 15:23 allergy reaction doxycycline (DOXYCYCLINE) Allergy Unknown Hives Verified 06/25/25 15:23 PFS <Paola Chaney (ED), [employer] - Last Filed: 07/29/25 21:43> [facility] Disclaimer: The information contained in this section may have been updated after the patient was seen, as this information can be updated by other users. 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 (Updated 07/29/25 @ 22:42 by Blanquita Flores DO) Pyelonephritis Chronic UTI Ureterolithiasis Calcium ureterolithiasis Cough Left flank pain Pyelonephritis Acute viral syndrome Acute flank pain Acute flank pain Staphylococcus epidermidis bacteremia Viral respiratory illness Hypertension Infection associated with ureteral stent Port-A-Cath in place Abnormal urinalysis Sepsis Axillary adenopathy Morbid obesity with BMI of 40.0-44.9, adult Chews tobacco Chest pain Lesion of liver greater than 1 cm in diameter Pyelonephritis Diverticulitis Puncture wound of hand, left Elevated serum hCG in female, not Hypokalemia Pyelonephritis Urolithiasis Exacerbation of reactive airway disease Pneumonia CAP (community acquired pneumonia) Flu syndrome Bronchitis Kurtz splints Achilles tendinitis Hypokalemia COVID-19 virus infection Nausea and vomiting TMJ arthralgia Pancreatitis Anxiety Class 3 obesity Ureteral calculus, right Sepsis Sciatica Dental abscess Right flank pain Cough Leg pain Fracture of medial malleolus, right, closed Reactive airway disease with wheezing Bronchitis Sinusitis Ureteral calculus Renal colic Kidney stone on left side Poison eric dermatitis Cellulitis of breast Left flank pain Pain and swelling of left ankle Ankle pain, left Pain and swelling of right ankle Left knee pain Tight cast Cast discomfort Tibia/fibula fracture Encounter for laboratory testing for COVID-19 virus Renal colic on right side Pyelonephritis Hypertension Obstructive uropathy Left ureteral calculus Flank pain SIRS (systemic inflammatory response syndrome) Renal insufficiency Ureteral stent occlusion Hydronephrosis Contusion of coccyx Obesity (BMI 35.0-39.9 without comorbidity) Nephrolithiasis Diarrhea Hydronephrosis with urinary obstruction due to ureteral calculus Complicated UTI (urinary tract infection) Foot sprain Renal colic on left side Bruise Recurrent left lower quadrant abdominal pain Chronic pain Ovarian cyst Flank pain, acute Urinary tract infection Abscess after procedure Wound dehiscence, surgical Dehiscence of closure of skin Yeast dermatitis Surgical wound infection Cellulitis Abdominal pain Complex cyst of right ovary Cystitis Vomiting and diarrhea Epigastric pain Surgical History Hx of cholecystectomy H/O total hysterectomy with removal of both tubes and ovaries S/P ureteral stent placement Status post cystoscopy with ureteral stent placement Fracture of ankle, lateral malleolus, left, closed Fracture of tibial shaft, left, closed S/P unilateral salpingo-oophorectomy Family History Other No significant family history Social History Smoking Status: Never smoker second hand exposure: No alcohol intake: never counseling provided: none substance use type: denies use current occupational status: disabled Travel in the last 8 weeks?: None household members: none housing: house 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 current occupational exposures/hazards: No caffeine: No Have you lived/traveled outside [place] in past 30 days?: No Contact w/someone who lives/traveled outside US past 30 days?: No Exposure to someone with infectious disease in past 14 days?: No Do you have a fever (greater than 100.4 F or 38 C)?: No Have you tested positive for COVID-19?: No Exposed to someone with COVID-19 in past 14 days?: No Do you have a sore throat?: No Do you have a cough?: No Do you have any weakness?: No Do you have any diarrhea?: No Are you experiencing any unusual bleeding?: No Do you have any muscle aches/pain?: No Do you have any abdominal pain?: No Are you experiencing loss of taste or smell?: No Other 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 Have you received the Flu Vaccine for this season: No Have you received the Pneumonia Vaccine: No <Paola Chaney (ED), [employer] - Last Filed: 07/29/25 21:43> ROS Obtained: Yes Systems reviewed as appropriate & no additional complaints except as documented Physical Exam <Paola Chaney (ED), [employer] - Last Filed: 07/29/25 21:43> General General appearance: alert Respiratory Respiratory exam: Present normal lung sounds bilaterally Cardiovascular Cardiovascular exam: Present regular rate, +S1 and +S2 Neurological Exam Neurological exam: Present alert and oriented X3 Medical Decision Making <Paola Chaney (ED), [employer] - Last Filed: 07/29/25 21:43> Medical Records Screening: Per USPSTF and CDC recommendations, given the prevalence of disease in our region, it is our hospital?s policy to screen for HIV and viral Hepatitis for all patients aged 18 and over and those with ongoing risk factors. Olu Inquiry Pt receiving controlled substance: No Olu was queried for this patient: No Vital Signs: 07/29/25 18:00 07/29/25 21:36 07/29/25 21:38 Temperature 98.5 F Temperature Source Oral Pulse Rate 91 H Pulse Rate [Right Radial] 84 Respiratory Rate 18 Blood Pressure 179/120 H Blood Pressure [Right Arm] 180/142 H Blood Pressure Mean 139 Blood Pressure Mean [Right Arm] 154 Blood Pressure Source [Right Arm] Manual Cuff/ Auscultation Blood Pressure Position [Right Arm] Sitting 02 Sat by Pulse Oximetry 100 95 Oxygen Delivery Method Room Air Room Air 07/29/25 21:38 07/29/25 21:40 07/29/25 21:40 Temperature Temperature Source Pulse Rate 66 94 H Pulse Rate [Right Radial] Respiratory Rate Blood Pressure 188/118 H Blood Pressure [Right Arm] Blood Pressure Mean 147 Blood Pressure Mean [Right Arm] Blood Pressure Source [Right Arm] Blood Pressure Position [Right Arm] 02 Sat by Pulse Oximetry 91 L 96 Oxygen Delivery Method Room Air Room Air 07/29/25 21:45 07/29/25 21:50 07/29/25 21:50 Temperature Temperature Source Pulse Rate 91 H 91 H Pulse Rate [Right Radial] Respiratory Rate Blood Pressure 186/102 H Blood Pressure [Right Arm] Blood Pressure Mean 139 Blood Pressure Mean [Right Arm] Blood Pressure Source [Right Arm] Blood Pressure Position [Right Arm] 02 Sat by Pulse Oximetry 98 97 Oxygen Delivery Method Room Air Room Air 07/29/25 22:00 07/29/25 22:00 Temperature Temperature Source Pulse Rate 86 Pulse Rate [Right Radial] Respiratory Rate Blood Pressure 180/103 H Blood Pressure [Right Arm] Blood Pressure Mean 128 Blood Pressure Mean [Right Arm] Blood Pressure Source [Right Arm] Blood Pressure Position [Right Arm] 02 Sat by Pulse Oximetry 97 Oxygen Delivery Method Room Air Lab Data Lab Results 07/29/25 18:18: Urine Color Yellow, Urine Appearance Clear, Urine pH 6.0, Ur Specific Falconer 1.025, Urine Protein 1+ A, Urine Glucose (UA) Negative, Urine Ketones Negative, Urine Blood 2+ A, Urine Nitrate Negative, Urine Bilirubin Negative, Urine Urobilinogen 0.2, Ur Leukocyte Esterase 2+ A, Urine WBC 20-50, Ur Squamous Epith Cells 20-50, Urine Bacteria 2+ 07/29/25 20:44: WBC 8.7, RBC 4.67, Hgb 13.4, Hct 40.3, MCV 86.3, MCH 28.7, MCHC 33.3, RDW 13.8, Plt Count 340, MPV 9.6, Neut % (Auto) 68.1, Lymph % (Auto) 20.9, [place] % (Auto) 8.8, Eos % (Auto) 1.4, Baso % (Auto) 0.3, Neut # (Auto) 5.9, Lymph # (Auto) 1.8, [place] # (Auto) 0.8, Eos # (Auto) 0.1, Baso # (Auto) 0.0, Sodium 137, Potassium 3.3 L, Chloride 107, Carbon Dioxide 25, Anion Gap 8.3, BUN 14, Creatinine 0.90, Estimated Creat Clear 66, Estimated GFR 70, Est GFR ( Amer) 84, Glucose 97, Calcium 8.6, Magnesium 2.0, Total Bilirubin 0.5, AST 27, ALT 22, Alkaline Phosphatase 90, Total Protein 7.1, Albumin 3.8, Globulin 3.3 H, Albumin/Globulin Ratio 1.2, Lipase 187 07/29/25 20:44 07/29/25 20:44 Orders (Tests/Meds): ED MEDICATIONS Generic Name Dose Route Start Last Admin Trade Name Freq PRN Reason Stop Dose Admin Sodium Chloride 10 ml 07/29/25 21:19 07/29/25 21:21 Sodium Chloride 0.9% 10ml Syr (Rad Only) IV 08/28/25 21:18 10 ml NEEDED PRN Administration Maintain IV Site Discontinued Medications Generic Name Dose Route Start Last Admin Trade Name Freq PRN Reason Stop Dose Admin Heparin Sodium (Porcine) 300 unit 07/29/25 22:46 07/29/25 22:56 Heparin Lock Flush 500 Units/5ml Syr IV 07/29/25 22:47 5 ml ONCE ONE Administration Hydromorphone HCl 0.5 mg 07/29/25 18:41 07/29/25 19:27 Hydromorphone 2mg/Ml Syringe IV 07/29/25 18:42 0.5 mg ONCE ONE Administration Hydromorphone HCl 0.5 mg 07/29/25 20:27 Hydromorphone 2mg/Ml Syringe IV 08/28/25 20:26 Q2HP PRN Severe Pain (7-10) Hydromorphone HCl 0.5 mg 07/29/25 20:44 07/29/25 20:49 Hydromorphone 2mg/Ml Syringe IV 07/29/25 20:45 0.5 mg ONCE ONE Administration Sodium Chloride 1,000 mls @ 999 mls/hr 07/29/25 18:39 07/29/25 22:29 Sod Chlor 0.9% 1000ml Bag IV 07/29/25 19:39 Infused .Q1H1M ONE Infusion Iopamidol 75 ml 07/29/25 21:19 07/29/25 21:21 Iopamidol-370 (76%);100ml Bottle IV 07/29/25 21:20 75 ml ONCE ONE Administration Levofloxacin 500 mg 07/29/25 20:25 07/29/25 20:48 Levofloxacin 500mg Tab PO 07/29/25 20:26 500 mg ONCE ONE Administration Ondansetron HCl 4 mg 07/29/25 18:39 07/29/25 19:27 Ondansetron 4mg/2ml Vial IV 07/29/25 18:40 4 mg ONCE ONE Administration Oxycodone HCl 5 mg 07/29/25 22:40 07/29/25 22:56 Oxycodone 5mg Immediate Release Tablet PO 07/29/25 22:41 5 mg ONCE ONE Administration Phenazopyridine HCl 200 mg 07/29/25 22:59 07/29/25 23:05 Phenazopyridine 200mg Tablet PO 07/29/25 23:00 200 mg ONCE ONE Administration Potassium Chloride 60 meq 07/29/25 21:12 07/29/25 21:27 Potassium Chloride 20meq Tab PO 07/29/25 21:13 60 meq ONCE ONE Administration Tamsulosin HCl 0.4 mg 07/29/25 22:41 07/29/25 22:56 Tamsulosin 0.4mg Capsule PO 07/29/25 22:42 0.4 mg ONCE ONE Administration ORDERS Category Date Time Status CT abdomen pelvis w con Stat Cat Scan 07/29/25 18:39 Completed CBC [Complete Blood Count Auto Diff] Stat Lab 07/29/25 20:44 Completed Comprehensive Metabolic Panel Stat Lab 07/29/25 20:44 Completed Lipase Stat Lab 07/29/25 20:44 Completed Magnesium Stat Lab 07/29/25 20:44 Completed UA [Urinalysis and Microscopic] Stat Lab 07/29/25 18:18 Completed Urine Culture Stat Micro 07/29/25 18:18 Received Medical Decision Narrative: patient is a 39-year-old female presenting to the emergency department for evaluation of left flank pain. Patient is hemodynamically stable and nontoxic- appearing upon arrival, afebrile. Differential diagnosis includes kidney stone, UTI. Workup will be conducted with hematologic labs, specific imaging, provocative tests. Initial inventions include crystalloid bolus, analgesics, antibiotics. Initial workup reviewed by [facility] hematologic labs are remarkable for white blood cell count of 8.7, H&H normal, potassium 3.3 which was replaced here in the ED. Otherwise nonactionable labs. CT was completed and we are waiting for the results of the scan. CT scan came back as severe left hydronephrosis and ureteral dilatation due to a 4.8 mm stone in the proximal left ureter. We will contact urology. <Blanquita Flores, DO - Last Filed: 07/29/25 23:10> Medical Records Medical records reviewed: Yes I reviewed the patient's medical records. Vital Signs: 07/29/25 18:00 07/29/25 21:36 07/29/25 21:38 Temperature 98.5 F Temperature Source Oral Pulse Rate 91 H Pulse Rate [Right Radial] 84 Respiratory Rate 18 Blood Pressure 179/120 H Blood Pressure [Right Arm] 180/142 H Blood Pressure Mean 139 Blood Pressure Mean [Right Arm] 154 Blood Pressure Source [Right Arm] Manual Cuff/ Auscultation Blood Pressure Position [Right Arm] Sitting 02 Sat by Pulse Oximetry 100 95 Oxygen Delivery Method Room Air Room Air 07/29/25 21:38 07/29/25 21:40 07/29/25 21:40 Temperature Temperature Source Pulse Rate 66 94 H Pulse Rate [Right Radial] Respiratory Rate Blood Pressure 188/118 H Blood Pressure [Right Arm] Blood Pressure Mean 147 Blood Pressure Mean [Right Arm] Blood Pressure Source [Right Arm] Blood Pressure Position [Right Arm] 02 Sat by Pulse Oximetry 91 L 96 Oxygen Delivery Method Room Air Room Air 07/29/25 21:45 07/29/25 21:50 07/29/25 21:50 Temperature Temperature Source Pulse Rate 91 H 91 H Pulse Rate [Right Radial] Respiratory Rate Blood Pressure 186/102 H Blood Pressure [Right Arm] Blood Pressure Mean 139 Blood Pressure Mean [Right Arm] Blood Pressure Source [Right Arm] Blood Pressure Position [Right Arm] 02 Sat by Pulse Oximetry 98 97 Oxygen Delivery Method Room Air Room Air 07/29/25 22:00 07/29/25 22:00 Temperature Temperature Source Pulse Rate 86 Pulse Rate [Right Radial] Respiratory Rate Blood Pressure 180/103 H Blood Pressure [Right Arm] Blood Pressure Mean 128 Blood Pressure Mean [Right Arm] Blood Pressure Source [Right Arm] Blood Pressure Position [Right Arm] 02 Sat by Pulse Oximetry 97 Oxygen Delivery Method Room Air Lab Data Lab results reviewed: Yes I reviewed the patient's lab results. Lab Results 07/29/25 18:18: Urine Color Yellow, Urine Appearance Clear, Urine pH 6.0, Ur Specific Falconer 1.025, Urine Protein 1+ A, Urine Glucose (UA) Negative, Urine Ketones Negative, Urine Blood 2+ A, Urine Nitrate Negative, Urine Bilirubin Negative, Urine Urobilinogen 0.2, Ur Leukocyte Esterase 2+ A, Urine WBC 20-50, Ur Squamous Epith Cells 20-50, Urine Bacteria 2+ 07/29/25 20:44: WBC 8.7, RBC 4.67, Hgb 13.4, Hct 40.3, MCV 86.3, MCH 28.7, MCHC 33.3, RDW 13.8, Plt Count 340, MPV 9.6, Neut % (Auto) 68.1, Lymph % (Auto) 20.9, [place] % (Auto) 8.8, Eos % (Auto) 1.4, Baso % (Auto) 0.3, Neut # (Auto) 5.9, Lymph # (Auto) 1.8, [place] # (Auto) 0.8, Eos # (Auto) 0.1, Baso # (Auto) 0.0, Sodium 137, Potassium 3.3 L, Chloride 107, Carbon Dioxide 25, Anion Gap 8.3, BUN 14, Creatinine 0.90, Estimated Creat Clear 66, Estimated GFR 70, Est GFR ( Amer) 84, Glucose 97, Calcium 8.6, Magnesium 2.0, Total Bilirubin 0.5, AST 27, ALT 22, Alkaline Phosphatase 90, Total Protein 7.1, Albumin 3.8, Globulin 3.3 H, Albumin/Globulin Ratio 1.2, Lipase 187 Orders (Tests/Meds): ED MEDICATIONS Generic Name Dose Route Start Last Admin Trade Name Slike PRN Reason Stop Dose Admin Sodium Chloride 10 ml 07/29/25 21:19 07/29/25 21:21 Sodium Chloride 0.9% 10ml Syr (Rad Only) IV 08/28/25 21:18 10 ml NEEDED PRN Administration Maintain IV Site Discontinued Medications Generic Name Dose Route Start Last Admin Trade Name Silke PRN Reason Stop Dose Admin Heparin Sodium (Porcine) 300 unit 07/29/25 22:46 07/29/25 22:56 Heparin Lock Flush 500 Units/5ml Syr IV 07/29/25 22:47 5 ml ONCE ONE Administration Hydromorphone HCl 0.5 mg 07/29/25 18:41 07/29/25 19:27 Hydromorphone 2mg/Ml Syringe IV 07/29/25 18:42 0.5 mg ONCE ONE Administration Hydromorphone HCl 0.5 mg 07/29/25 20:27 Hydromorphone 2mg/Ml Syringe IV 08/28/25 20:26 Q2HP PRN Severe Pain (7-10) Hydromorphone HCl 0.5 mg 07/29/25 20:44 07/29/25 20:49 Hydromorphone 2mg/Ml Syringe IV 07/29/25 20:45 0.5 mg ONCE ONE Administration Sodium Chloride 1,000 mls @ 999 mls/hr 07/29/25 18:39 07/29/25 22:29 Sod Chlor 0.9% 1000ml Bag IV 07/29/25 19:39 Infused .Q1H1M ONE Infusion Iopamidol 75 ml 07/29/25 21:19 07/29/25 21:21 Iopamidol-370 (76%);100ml Bottle IV 07/29/25 21:20 75 ml ONCE ONE Administration Levofloxacin 500 mg 07/29/25 20:25 07/29/25 20:48 Levofloxacin 500mg Tab PO 07/29/25 20:26 500 mg ONCE ONE Administration Ondansetron HCl 4 mg 07/29/25 18:39 07/29/25 19:27 Ondansetron 4mg/2ml Vial IV 07/29/25 18:40 4 mg ONCE ONE Administration Oxycodone HCl 5 mg 07/29/25 22:40 07/29/25 22:56 Oxycodone 5mg Immediate Release Tablet PO 07/29/25 22:41 5 mg ONCE ONE Administration Phenazopyridine HCl 200 mg 07/29/25 22:59 07/29/25 23:05 Phenazopyridine 200mg Tablet PO 07/29/25 23:00 200 mg ONCE ONE Administration Potassium Chloride 60 meq 07/29/25 21:12 07/29/25 21:27 Potassium Chloride 20meq Tab PO 07/29/25 21:13 60 meq ONCE ONE Administration Tamsulosin HCl 0.4 mg 07/29/25 22:41 07/29/25 22:56 Tamsulosin 0.4mg Capsule PO 07/29/25 22:42 0.4 mg ONCE ONE Administration ORDERS Category Date Time Status CT abdomen pelvis w con Stat Cat Scan 07/29/25 18:39 Completed CBC [Complete Blood Count Auto Diff] Stat Lab 07/29/25 20:44 Completed Comprehensive Metabolic Panel Stat Lab 07/29/25 20:44 Completed Lipase Stat Lab 07/29/25 20:44 Completed Magnesium Stat Lab 07/29/25 20:44 Completed UA [Urinalysis and Microscopic] Stat Lab 07/29/25 18:18 Completed Urine Culture Stat Micro 07/29/25 18:18 Received Medical Decision Narrative: Patient is a 39-year-old female presenting to the emergency department for evaluation of left flank pain. Patient is hemodynamically stable and nontoxic- appearing upon arrival, afebrile. Differential diagnosis includes kidney stone, UTI, obstructing stone, pyelonephritis, amongst others. Workup will be conducted with hematologic labs, specific imaging, provocative tests. Initial inventions include crystalloid bolus, analgesics, antibiotics. Initial workup reviewed by [facility] hematologic labs are remarkable for white blood cell count of 8.7, H&H normal.CMP unremarkable except for potassium of 3.3, which was replaced here in the ED. Otherwise nonactionable labs. CT was completed and we are waiting for the results of the scan. UA concerning for infection with 20-50 WBC, 2+leuk esterase, 2+ bacteria. CT scan came back as severe left hydronephrosis and ureteral dilatation due to a 4.8 mm stone in the proximal left ureter. We will contact urology. Blanquita Mark, DO I assumed care of the patient at 2200. I discussed the case with Dr. Acosta with [facility] urology, he stated that he could see the patient tomorrow in clinic and could be scheduled for intervention on Wednesday if needed. Discussed this with the patient and she felt comfortable with this plan, patient did not wish to be admitted. Patient was given additional dose of oral oxycodone and Pyridium in the emergency department prior to discharge. Patient was sent with Flomax, oxycodone as well as Levaquin for her infected UA. At this time, patient was discharged home in stable condition, return precautions were discussed. Critical Care <Paola Chaney (ED), [employer] - Last Filed: 07/29/25 21:43> Critical Care Time Critical Care Time: No
[2025-07-29 19:06] LABS: Bacteria,Urine 2+ /lpf; Squamous Epithelial Cell,Urine 20-50 #/hpf (0-5); WBC,Urine 20-50 #/hpf (0-3)
--- NOTE | 2025-07-29 19:11 | PC.NURSE ---
patients port accessed at this time in a sterile fashion with a 20 gauge, 1.0 inch german needle. patients port will not draw back, flushes without difficulty. patient stated she could taste the saline as it was being flushed. she has had the port for 5-10 years and stated that it sometimes will not draw back.
[2025-07-29] MEDS: ONDANSETRON 4MG/2ML VIAL 4 MG IV (19:27)
[2025-07-29] MEDS: HYDROMORPHONE 2MG/ML SYRINGE 0.5 MG IV ×2 (19:27→20:49)
[2025-07-29] MEDS: 0.9 % SODIUM CHLORIDE 1000ML 1,000 ML 999 ML IV (19:27)
--- NOTE | 2025-07-29 19:38 | PC.NURSE ---
Pt was stuck multiple times for labs with no success, pt requested lab to come draw blood. Lab called @1935.
--- NOTE | 2025-07-29 19:50 | PC.NURSE ---
lab at bedside at 1945 to obtain labs ordered.
[2025-07-29 20:57] LABS: Hematocrit 40.3 % (37.0-47.0); Hemoglobin 13.4 g/dL (12.2-16.2); Immature Granulocytes % 0.5 %; Mean Corpuscular HGB Conc 33.3 g/dL (31.8-35.4); Mean Corpuscular Hemoglobin 28.7 pg (27.0-31.2); Mean Corpuscular Volume 86.3 fl (81-99); Nucleated Red Blood Cells % 0 %; Platelet Count 340 K/mm3 (142-424); Red Blood Count 4.67 M/mm3 (4.20-5.40); Red Cell Distribution Width-SD 43.5 fL; White Blood Count 8.7 K/mm3 (4.8-10.8)
[2025-07-29 20:59] LABS: Alanine Aminotransferase 22 U/L (12-78); Albumin Level 3.8 g/dl (3.5-5.0); Albumin/Globulin Ratio 1.2 (1.1-1.8); Alkaline Phosphatase 90 U/L (38-126); Anion Gap 8.3 mEq/L (5-15); Aspartate Amino Transferase 27 U/L (14-36); Bilirubin,Total 0.5 mg/dl (0.2-1.3); Blood Urea Nitrogen 14 mg/dl (7-17); Calcium 8.6 mg/dl (8.4-10.2); Carbon Dioxide 25 mmol/L (22.0-30.0); Chloride 107 mmol/L (98-107); Creatinine Clearance Estimated 66 mL/min (50-200); Creatinine,Serum 0.90 mg/dl (0.52-1.04); Estimated Glomerular Filt Rate 70 ml/min (>60); GFR (African American) 84 ML/MIN (>60); Globulin 3.3 g/dL (1.3-3.2); Glucose 97 mg/dl (74-100); Lipase 187 U/L (23-300); Potassium 3.3 mmoL/L (3.5-5.1); Sodium 137 mmol/L (136-145); Total Protein,Serum 7.1 g/dl (6.3-8.2)
[2025-07-29] MEDS: IOPAMIDOL-370 (76%);100ML BOTTLE 75 ML IV (21:21)
[2025-07-29] MEDS: SODIUM CHLORIDE 0.9% 10ML SYR (RAD ONLY) 10 ML IV (21:21)
[2025-07-29] MEDS: POTASSIUM CHLORIDE 20MEQ TAB 60 MEQ PO (21:27)
[2025-07-29 21:35] LABS: Magnesium 2.0 mg/dl (1.6-2.3)
[2025-07-29] MEDS: TAMSULOSIN 0.4MG CAPSULE 0.4 MG PO (22:56)
[2025-07-29] MEDS: OXYCODONE 5MG IMMEDIATE RELEASE TABLET 5 MG PO (22:56)
[2025-07-29] MEDS: PHENAZOPYRIDINE 200MG TABLET 200 MG PO (23:05)
== END 2025-07-29 23:14 | disposition home or self-care (01) ==
PROVIDERS: Nurse Practitioner; Emergency Provider Student in an Organized Health Care Education/Training Program; PCP Nurse Practitioner Family
DX: N39.0 Urinary tract infection, site not specified (principal); N13.2 Hydronephrosis with renal and ureteral calculous obstruction
CPT/HCPCS: 74177; 80053; 81001; 83690; 83735; 85025; 87086; 96361; 96374; 96375; 96376; 99285; J1171; J1642; J2405; J7030; Q9967